=== PATIENT | male | born 1955 | race American Indian/Alaskan Native ===

== ENCOUNTER 2017-04-20 11:22 | Emergency (ER) | payer OTHER ==
[~2017-04-20] VITALS: Ht 177.8 cm; Wt 95.9 kg
--- OUTSIDE RECORDS SUMMARY | ~2017-04-20 | XMS | Encounter Summary ---
Demographics + + + | Address | [address] | | | [place] [address] | + + + | Home Phone [...] | Author | [facility] [employer] [facility] | + + + | Organization | [facility] | + + + | Address | Unknown | + + + | Phone | Unavailable | + + + Support + + +---------+ + | Name | Relationship | Address | Phone | + + +---------+ + | CAMRON OCHOA | ECON | Unknown | | + + +---------+ + Care Team Providers + +------+ + | Care Partnership Marketing Manager Name | Role | Phone | [...] | | 2017 | | Center at [facility] 6th | PA-C [address] | | | | | Floor [address] | [address] | | | | | Evelyn Mailcode: CH6D | [place], [place] | | | | | [facility] | [address] | | | | | and Healing, 6th | [phone] | | | | | Floor [place], [place] | | | | | | [address] | | | | | | [phone] | | | +--------+ + + + [...]
--- OUTSIDE RECORDS SUMMARY | ~2017-04-20 | XMS | Clinical Summary ---
Demographics + + + | Address | [address] | | | [place] [address] | + + + | Home Phone [...] Team Providers + +------+ + | Care Boiler Tester Name | Role | Phone | + +------+ + | Shakir Monzon MD | PP | | + +------+ + Source Comments LINDA is fully live on both [facility] Ambulatory and [facility] InPatient.[facility] Allergies No Known Allergies Current [...]
--- OUTSIDE RECORDS SUMMARY | ~2017-04-20 | XMS | Encounter Summary ---
Demographics + + + | Address | [address] | | | [place] [address] | + + + | Home Phone [...] + | Author | [facility] | + + + | Organization | [facility] | + [...] Team Providers + +------+ + | Care Hims Manager Name | Role | Phone | [...] | 2017 | on | Center at [facility] 6th | PA-Craig [address] | 01/28/17) | | | | Floor [address] | [address] | | | | | Evelyn Mailcode: CH6D | [place], [place] | | | | | [facility] | [address] | | | | | and Maxine, 6th | [phone] | | | | | Floor [place], [place] | | | | | | [address] | | | | | | [phone] | | | +--------+ + + + [...]
--- OUTSIDE RECORDS SUMMARY | ~2017-04-20 | XMS | Clinical Summary ---
Demographics + + + | Address | [address] | | | [place] [address] | + + + | Home Phone [...] Team Providers + +------+ + | Care Bullard Operator Name | Role | Phone | + +------+ + | Shakir Monzon MD | PP | | + +------+ + Source Comments LINDA is fully live on both [facility] Ambulatory and [facility] InPatient.[facility] Allergies No Known Allergies Current Medications + [...]
--- OUTSIDE RECORDS SUMMARY | ~2017-04-20 | XMS | Encounter Summary ---
Demographics + + + | Address | [address] | | | [place] [address] | + + + | Home Phone [...] | [facility] | + + + | Organization | [facility] | + + + | Address | Unknown | + + + | Phone | Unavailable | + + + Support + + +---------+ + | Name | Relationship | Address | Phone | + + +---------+ + | CAMRON OCHOA | ECON | Unknown | | + + +---------+ + Care Team Providers + +------+ + | Care Sales Driver Name | Role | Phone | [...] 02/01/ | Abstract | [facility] | Bsesy Solano, | Blood Test Results | | 2017 | | Center at [facility] 6th | PA-C [address] | | | | | Floor [address] | [address] | | | | | Evelyn Mailcode: CH6D | [place], [place] | | | | | [facility] | [address] | | | | | and Healing, 6th | [phone] | | | | | Floor [place], [place] | | | | | | [address] | | | | | | [phone] | | | +--------+ + + + [...]
--- OUTSIDE RECORDS SUMMARY | ~2017-04-20 | XMS | Encounter Summary ---
Demographics + + + | Address | [address] | | | [place] [address] | + + + | Home Phone [...] Author | [facility] [employer] [facility] | + + + | Organization | [facility] | + + + | Address | Unknown | + + + | Phone | Unavailable | + + + Support + + +---------+ + | Name | Relationship | Address | Phone | + + +---------+ + | CAMRON OCHOA | ECON | Unknown | | + + +---------+ + Care Team Providers + +------+ + | Care Scraper Burrer Name | Role | Phone | + [...] | 2017 | on | Center at [facility] 6th | PA-Craig [address] | 01/28/17) | | | | Floor [address] | [address] | | | | | Evelyn Mailcode: CH6D | [place], [place] | | | | | [facility] | [address] | | | | | and Maxine, 6th | [phone] | | | | | Floor [place], [place] | | | | | | [address] | | | | | | [phone] | | | +--------+ + + + [...]
[~2017-04-20 11:22] MED LIST: ASPIRIN EC81 MG PO; CEPHALEXIN500 MG PO; COZAAR25 MG PO; GLIPIZIDE XL10 MG PO; JANUVIA100 MG PO; LACTULOSE20 GM/30 M PO; LANTUS100 UNITS/ SUB-Q; METFORMIN HCL500 MG PO; NOVOLOG100 UNIT/2; PROAIR HFA8.5 GM INH; TERBINAFINE15 GM TOP; VITAMIN D35000 UNIT PO
[2017-04-20] MEDS ORDERED: XIFAXAN550 MG PO (11:36)
--- NOTE | 2017-04-20 20:49 | EKG ---
[facility] [address] [facility] [place] [address] Signed Sinus tachycardia Possible Inferior infarct (cited on or before 27-NOV-2015) Abnormal ECG When compared with ECG of 27-NOV-2015 09:34, Questionable change in initial forces of Inferior leads Nonspecific T wave abnormality no longer evident in Lateral leads Confirmed by JUANITA MOURA MD ([id number]) on 04/20/2017 8:49:33 PM Electronically Signed By: JUANITA MOURA MD 04/20/17 2049 PATIENT NAME: DIPESHBEHZAD Electrocardiogram DATE OF : 55 PHYSICIAN: JUANITA MOURA MD REPORT #: [id number] REPORT IS CONFIDENTIAL AND NOT TO BE RELEASED WITHOUT AUTHORIZATION
== END 2017-04-20 12:47 | disposition home or self-care (01) ==
LOC: ED 11:22
DX: R07.9 Chest pain, unspecified (principal); E11.9 Type 2 diabetes mellitus without complications; I10 Essential (primary) hypertension; F17.200 Nicotine dependence, unspecified, uncomplicated; Z86.19 Personal history of other infectious and parasitic diseases; Z79.4 Long term (current) use of insulin; Z79.82 Long term (current) use of aspirin; Z79.899 Other long term (current) drug therapy
CPT/HCPCS: 71045; 80053; 84484; 85025; 93005; 93010; 96374; 96375; 99284; J1170; J2405

== ENCOUNTER 2017-04-25 05:05 | Inpatient (IN) | payer OTHER ==
[~2017-04-25] VITALS: Ht 177.8 cm; Wt 101.0 kg
--- OUTSIDE RECORDS SUMMARY | ~2017-04-25 | XMS | Encounter Summary ---
Demographics + + + | Address | [address] | | | [place] [address] | + + + | Home Phone [...] Author | [facility] | + + + | Organization | [facility] | + + + | Address | Unknown | + + + | Phone | Unavailable | + + + Support + + +---------+ + | Name | Relationship | Address | Phone | + + +---------+ + | CAMRON OCHOA | ECON | Unknown | | + + +---------+ + Care Team Providers + +------+ + | Care Skein Bander Name | Role | Phone | + [...] (Labs | | 2017 | on | Center at [facility] 6th | PA-Craig [address] | 01/28/17) | | | | Floor [address] | [address] | | | | | Evelyn Mailcode: CH6D | [place], [place] | | | | | [facility] | [address] | | | | | and Maxine, 6th | [phone] | | | | | Floor [place], [place] | | | | | | [address] | | | | | | [phone] | | | +--------+ + + + [...] as of this encounter Plan of Treatment Not on fileas of this encounter Results CBC ONLY (01/28/2017) + +--------+ + | Component | Value | Ref Range | + +--------+ + | WHITE CELL COUNT | 6.8 | K/cu mm | + +--------+ + | RED CELL COUNT | 4.47 | M/cu mm | + +--------+ + | HEMOGLOBIN | 15.6 | 13.5 - 17.5 g/dL | + +--------+ + | HEMATOCRIT | 44.7 | % | + +--------+ + | PLATELET COUNT | 74 (L) | K/cu mm | + +--------+ + + + + | Specimen | Performing Laboratory | + + + | Blood | PAML | + + + INR (01/28/2017) + +-------+ + | Component | Value | Ref Range | + +-------+ + | INR | 1.2 | INR | + +-------+ + + + + | Specimen | Performing Laboratory | + + + | Blood | PAML | + + + COMPLETE METABOLIC SET (NA,K,CL,CO2,BUN,CREAT,GLUC,CA,AST,ALT,BILI TOTAL,ALK PHOS,ALB,PROT TOTAL) (01/28/2017) + +---------+ + | Component | Value | Ref Range | + +---------+ + | GLUCOSE, PLASMA | 243 (H) | 65 - 110 mg/dL | | (LAB) | | | + +---------+ + | BUN, PLASMA (LAB) | 14 | mg/dL | + +---------+ + | CREATININE PLASMA | 0.92 | mg/dL | | (LAB) | | | + +---------+ + | TOTAL PROTEIN, | 6.6 | g/dL | | PLASMA (LAB) | | | + +---------+ + | ALBUMIN, PLASMA | 2.9 (L) | g/dL | | (LAB) | | | + +---------+ + | CALCIUM, PLASMA | 8.7 | mg/dL | | (LAB) | | | + +---------+ + | BILIRUBIN TOTAL | 0.8 | Transcutaneous | | | | Bilirubinometer | + +---------+ + | ALK PHOS | 55 | U/L | + +---------+ + | AST(SGOT) | 21 | U/L | + +---------+ + | SODIUM, PLASMA (LAB) | 142 | mmol/L | + +---------+ + | POTASSIUM, PLASMA | 4.0 | mmol/L | | (LAB) | | | + +---------+ + | CHLORIDE, PLASMA | 108 (H) | mmol/L | | (LAB) | | | + +---------+ + | TOTAL CO2, PLASMA | 20 (L) | mmol/L | | (LAB) | | | + +---------+ + | ALT (SGPT) | 22 | U/L | + +---------+ + + + + | Specimen | Performing Laboratory | + + + | Blood | PAML | + + + in this encounter Visit Diagnoses Not on filein this encounter"
--- OUTSIDE RECORDS SUMMARY | ~2017-04-25 | XMS | Encounter Summary ---
Demographics + + + | Address | [address] | | | [place] [address] | + + + | Home Phone [...] Author + + + | Author | [facility] [employer] [facility] | + + + | Organization | [facility] | + + + | Address | Unknown | + + + | Phone | Unavailable | + + + Support + + +---------+ + | Name | Relationship | Address | Phone | + + +---------+ + | CAMRON OCHOA | ECON | Unknown | | + + +---------+ + Care Team Providers + +------+ + | Care Supervisor Telephone Information Name | Role | Phone | + [...] Test Results | | 2017 | | Center at [facility] 6th | PA-C [address] | | | | | Floor [address] | [address] | | | | | Evelyn Mailcode: CH6D | [place], [place] | | | | | [facility] | [address] | | | | | and Healing, 6th | [phone] | | | | | Floor [place], [place] | | | | | | [address] | | | | | | [phone] | | | +--------+ + + + [...] Treatment Not on fileas of this encounter Visit Diagnoses Not on filein this encounter"
--- OUTSIDE RECORDS SUMMARY | ~2017-04-25 | XMS | Encounter Summary ---
Demographics + + + | Address | [address] | | | [place] [address] | + + + | Home Phone | | + + + | Preferred Language | Unknown | + + + | Marital Status | Single | + + + | Yazidi Affiliation | Unknown | + + + | Race | or | + + + | Ethnic Group | Not or | + + + Author + + + | Author | [facility] [employer] [facility] | + + + | Organization | [facility] | + + + | Address | Unknown | + + + | Phone | Unavailable | + + + Support + + +---------+ + | Name | Relationship | Address | Phone | + + +---------+ + | CAMRON OCHOA | ECON | Unknown | | + + +---------+ + Care Team Providers + +------+ + | Care Remote Inpatient Coder Name | Role | Phone | + [...] | 2017 | on | Center at [facility] 6th | PA-Craig [address] | 01/28/17) | | | | Floor [address] | [address] | | | | | Evelyn Mailcode: CH6D | [place], [place] | | | | | [facility] | [address] | | | | | and Maxine, 6th | [phone] | | | | | Floor [place], [place] | | | | | | [address] | | | | | | [phone] | | | +--------+ + + + [...]
--- OUTSIDE RECORDS SUMMARY | ~2017-04-25 | XMS | Clinical Summary ---
Demographics + + + | Address | [address] | | | [place] [address] | + + + | Home Phone [...] Team Providers + +------+ + | Care Sourcing Coordinator Name | Role | Phone | + +------+ + | Shakir Monzon MD | PP | | + +------+ + Source Comments LINDA is fully live on both Health system Ambulatory and Health system InPatient.[facility] Allergies No Known Allergies Current Medications + + +--------+---------+------+------+-------+ | Prescription | Sig. | Disp. | Refills | Star | End | Statu | | | | | | t | Date | s | | | | | | Date | | | + + +--------+---------+------+------+-------+ | metFORMIN SR 1,000 | Take by mouth. | | | | | Activ | | mg oral tablet | | | | | | e | | extended release | | | | | | | | 24hr | | | | | | | + + +--------+---------+------+------+-------+ | rifAXIMin 550 mg | Take by mouth. | | | | | Activ | | oral tablet | | | | | | e | + + +--------+---------+------+------+-------+ | losartan 25 mg | Take by mouth. | | | | | Activ | | oral tablet | | | | | | e | + + +--------+---------+------+------+-------+ | Cholecalciferol | Take by mouth. | | | | | Activ | | (Vitamin D3) 5,000 | | | | | | e | | unit oral capsule | | | | | | | + + +--------+---------+------+------+-------+ | omeprazole 40 mg | Take by mouth. | | | | | Activ | | oral capsule,delayed | | | | | | e | | release(DR/EC) | | | | | | | + + +--------+---------+------+------+-------+ | | Take 1 tablet by | 28 | 2 | 09/0 | | Activ | | sofosbuvir-velpatasv | mouth once daily. | tablet | | 03/06 | | e | | ir (EPCLUSA) 400-100 | | | | 17 | | | | mg oral tablet | | | | | | | + + +--------+---------+------+------+-------+ Active Problems + + + | Problem | Noted Date | + + + | Hepatic cirrhosis (HCC) | 10/14/2016 | + + + | Chronic hepatitis C without hepatic coma (HCC) | 10/14/2016 | + + + Encounters +--------+ + + + + | Date | Type | Specialty | Care Team | Description | +--------+ + + + + | 02/02/ | Documentati | | Bessy Solano, | Lab Results (Labs | | 2016 | on | | NEVA-C | 01/28/17) | +--------+ + + + + | 02/01/ | Abstract | | Bessy Solano, | Blood Test Results | | 2016 | | | PA-C | | +--------+ + + + + from Last 3 Months Social History + + + +--------+------+ | [...] Pressure | 134/74 | 10/14/2016 10:25 AM PDT | + + + + | Pulse | 77 | 10/14/2016 10:25 AM PDT | + + + + | Temperature | 36.7 C (98 F) | 10/14/2016 10:25 AM PDT | + + + + | Respiratory Rate | 16 | 10/14/2016 10:25 AM PDT | + + + + | Oxygen Saturation | - | - | + + + + | Inhaled Oxygen | - | - | | Concentration | | | + + + + | Weight | 99.6 kg (219 lb 8 | 10/14/2016 10:25 AM PDT | | | oz) | | + + + + | Height | - | - | + + + + | Body Mass Index | - | - | + + + + Plan of Treatment + + + + + | Health Maintenance | Due Date | Last Done | Comments | + + + + + | INFLUENZA VACCINE | | | | | (FLU SHOT) | 7 | | | + + + + + Results INR (01/28/2017) + +-------+ + | Component [...] Blood | PAML | + + + CBC ONLY (01/28/2017) + +--------+ + | [...] Blood | PAML | + + + from Last 3 Months"
--- OUTSIDE RECORDS SUMMARY | ~2017-04-25 | XMS | Clinical Summary ---
Demographics + + + | Address | [address] | | | [place] [address] | + + + | Home Phone [...] Team Providers + +------+ + | Care Cut Off Saw Operator Name | Role | Phone | + +------+ + | Shakir Monzon MD | PP | | + +------+ + Source Comments LINDA is fully live on both [facility] Ambulatory and [facility] InPatient.[facility] Allergies No Known Allergies Current Medications + [...]
--- OUTSIDE RECORDS SUMMARY | ~2017-04-25 | XMS | Clinical Summary ---
Demographics + + + | Address | [address] | | | [place] [address] | + + + | Home Phone [...] Team Providers + +------+ + | Care Caddy/Caddie Supervisor Name | Role | Phone | + +------+ + | Shakir Monzon MD | PP | | + +------+ + Source Comments LINDA is fully live on both [facility] Ambulatory and [facility] InPatient.[facility] Allergies No Known Allergies Current Medications + [...]
--- OUTSIDE RECORDS SUMMARY | ~2017-04-25 | XMS | Encounter Summary ---
Demographics + + + | Address | [address] | | | [place] [address] | + + + | Home Phone [...] + + | Author | [facility] | + + + | Organization | [facility] | + + + | Address | Unknown | + + + | Phone | Unavailable | + + + Support + + +---------+ + | Name | Relationship | Address | Phone | + + +---------+ + | CAMRON OCHOA | ECON | Unknown | | + + +---------+ + Care Team Providers + +------+ + | Care Web Page Designer Name | Role | Phone | [...] | | 2017 | | Center at [facility] 6th | PA-C [address] | | | | | Floor [address] | [address] | | | | | Evelyn Mailcode: CH6D | [place], [place] | | | | | [facility] | [address] | | | | | and Healing, 6th | [phone] | | | | | Floor [place], [place] | | | | | | [address] | | | | | | [phone] | | | +--------+ + + + [...]
--- OUTSIDE RECORDS SUMMARY | ~2017-04-25 | XMS | Encounter Summary ---
Demographics + + + | Address | [address] | | | [place] [address] | + + + | Home Phone [...] + | Author | [facility] [employer] [facility] | + + [...] | | 2017 | | Center at [facility] 6th | PA-C [address] | | | | | Floor [address] | [address] | | | | | Evelyn Mailcode: CH6D | [place], [place] | | | | | [facility] | [address] | | | | | and Healing, 6th | [phone] | | | | | Floor [place], [place] | | | | | | [address] | | | | | | [phone] | | | +--------+ + + + [...]
--- OUTSIDE RECORDS SUMMARY | ~2017-04-25 | XMS | Encounter Summary ---
Demographics + + + | Address | [address] | | | [place] [address] | + + + | Home Phone [...] + + | Author | [facility] | + + + | Organization | [facility] | + + + | Address | Unknown | + + + | Phone | Unavailable | + + + Support + + +---------+ + | Name | Relationship | Address | Phone | + + +---------+ + | CAMRON OCHOA | ECON | Unknown | | + + +---------+ + Care Team Providers + +------+ + | Care Rotary Pump Operator Name | Role | Phone | [...] | 2017 | on | Center at [facility] 6th | PA-Craig [address] | 01/28/17) | | | | Floor [address] | [address] | | | | | Evelyn Mailcode: CH6D | [place], [place] | | | | | [facility] | [address] | | | | | and [address]ine, 6th | [phone] | | | | | Floor [place], [place] | | | | | | [address] | | | | | | [phone] | | | +--------+ + + + [...]
[~2017-04-25 05:05] MED LIST changes: +XIFAXAN550 MG PO
[2017-04-25] MEDS ORDERED: OMEPRAZOLE20 MG (05:16)
[2017-04-25] MEDS ORDERED: CRESTOR10 MG PO (05:17)
--- NOTE | 2017-04-25 08:03 | EKG ---
[facility] [address] [facility] [place] [address] Signed Sinus tachycardia Inferior infarct (cited on or before 27-NOV-2015) Abnormal ECG When compared with ECG of 20-APR-2017 11:27, T wave amplitude has increased in Lateral leads Confirmed by KATELYNN ADORNO MD ([id number]) on 04/25/2017 8:02:56 AM Electronically Signed By: KATELYNN ADORNO MD 04/25/17 0803 PATIENT NAME: DIPESHBEHZAD Electrocardiogram DATE OF : 55 PHYSICIAN: KATELYNN ADORNO MD REPORT #: [id number] REPORT IS CONFIDENTIAL AND NOT TO BE RELEASED WITHOUT AUTHORIZATION
--- NOTE | 2017-04-25 10:50 | NUR ---
RECIEVED PT FROM ED. TRANSPORTED VIA STRETCHER. COMPLAINS ON PAIN 8/10 IN CHEST. OFFER TYLENOL. PT REFUSED. SIGNIFICAT OTHER AT BEDSIDE. LUNGS SOUND CLEAR. HEART SOUND NORMAL. IV FLUIDS INFUSING @ 125/HR. RR WNL. CMS INTACT. REPORTS PAIN ON RIGHTSIDE DUE TO LIVER DISEASE. REPORTED NAUSEA YESTERDAY. PT IS ON CLEAR LIQUIDS UNTIL MIDNIGHT. CALL LIGHT WITHIN REACH. NO OTHER NEEDS AT THIS TIME
--- NOTE | 2017-04-25 11:45 | NUR ---
HELPED WITH INTAKE
--- NOTE | 2017-04-25 12:10 | NUR ---
SET UP FOR LUNCH. PICKED UP ROOM
--- NOTE | 2017-04-25 16:20 | NUR ---
PT REPORTED PAIN 8/10 IN CHEST. 650 TYLENOL GIVEN. WILL CONTINUE TO MONITOR. CALL LIGHT WITHIN REACH.
[2017-04-25] MEDS ORDERED: COZAAR25 MG PO (16:49)
[2017-04-25] MEDS ORDERED: LACTULOSE20 GM/30 M PO (16:50)
--- NOTE | 2017-04-25 17:01 | NUR ---
Patient's medications reconciled by pharmacist per patient/ interview
--- NOTE | 2017-04-25 17:13 | NUR ---
PT HAS DRY, HARSH COUGH. INFORMED DR ADORNO. NEW ORDERS RECIEVED. YADIEL JUNELRS GIVEN TO PT. WILL CONTINUE TO MONITOR.
--- NOTE | 2017-04-25 18:41 | NUR ---
1-2PA WITH FWW. PILLS IN APPLE SAUCE. 1 MORE DAY OF TAMIFLU. ADA DIET. TOLERATED WALKING TO CHAIR AND BACK. ATTENDS IN PLACE. LARGE AMOUNTS OF URINE OUT. REPORTS NO PAIN. NO DISCOMFORT. RR WNL.
--- NOTE | 2017-04-25 18:45 | NUR ---
CAME TO FLOOR TODAY. REPORTS CHEST PAIN. GAVE TESLON PEARLS FOR COUGH. 0.5 DILAUDID IV FOR PAIN 09/24. IND IN ROOM. CLEAR LIQUIDS. NPO AFTER MIDNIGHT. NO NARCOTICS AFTER MIDNIGHT FOR MRCP TOMORROW.
--- NOTE | 2017-04-25 19:58 | NUR ---
VITALS DONE AND CHARTED. BEDSIDE TABLE AND CALL LIGHT WITHIN REACH. PT NEEDS NOTHING AT THIS TIME.
--- NOTE | 2017-04-26 00:05 | NUR ---
PT COMPLAINED OF 8/10 PAIN, GAVE DILAUDID FOR PAIN. GAVE TESSELON LINETTE FOR COUGH. PT UP AT BEDSIDE TO VOID IN URINAL. TOOK ALL PO FLUIDS AWAY FROM BEDSIDE AND REMINDED HIM THAT HE IS TO BE NPO TONIGHT, PT ACKNOWLEDGED UNDERSTANDING. CALL LIGHT IN REACH. NO FURTHER NEEDS.
--- NOTE | 2017-04-26 01:15 | NUR ---
PT APPEAR TO BE SLEEPING.
--- NOTE | 2017-04-26 02:05 | NUR ---
VITALS AND I&OS DONE AND CHARTED. BEDSIDE TABLE AND CALL LIGHT WITHIN REACH. PT NEEDS NOTHING ELSE AT THIS TIME.
--- NOTE | 2017-04-26 03:22 | NUR ---
STOOD BY WHEN PT USED HIS URINAL. BEDSIDE TABLE AND CALL LIGHT WITHIN REACH.
--- NOTE | 2017-04-26 03:28 | NUR ---
PT UP TO BEDSIDE TO VOID IN URINAL. NO FURTHER NEEDS. CALL LIGHT IN REACH.
--- NOTE | 2017-04-26 06:28 | NUR ---
VITALS AND I&OS DONE AND CHARTED. BEDSIDE TABLE AND CALL LIGHT WITHIN REACH.
--- NOTE | 2017-04-26 06:33 | NUR ---
pt rates pain at 9/10. dr boone notified this morning that pt is in pain, dr boone informed rn that it is okay to give narcotics iv to the pt, there is no restriction on iv narcotics for the mrcp test this morning. gave dilaudid iv for pain. pt has no further needs. call light in reach.
--- NOTE | 2017-04-26 06:35 | NUR ---
PT SLEPT MAJORITY OF SHIFT. WOKE THIS MORNING, REPORTED 9/[address] ADORNO INFORMED RN THIS MORNING THAT THE MRCP TEST DOES NOT HAVE RESTRICTIONS ON IV NARCOTICS BEING GIVEN BEFORE TEST, ALSO CONFIRMED THIS WITH IMAGING. DILAUDID COVERED PAIN WELL. IV ABX. PT HAS BEEN NPO SINCE LAST NIGHT. PT ALERT AND ORIENTED. STANDBY ASSIST TO AMBULATE. CALLS APPROPRIALTY. PLEASENT.
--- NOTE | 2017-04-26 07:20 | NUR ---
PT IN BED A/O. REPORTS PAIN AT 8/10. SAYS PAIN MEDICATION ISN'T WORKING. PT INFORMED DR ADORNO WELL. 0.5 DILAUDID IV ONE TIME DOSE ORDERED. COLD WASH CLOTH ON HEAD. PT HAS A HARSH CONTINUAL COUGH. REPORTS THAT IT IS HURTING HIS CEST AND ABDOMINAL MUSCLES. AT BEDSIDE. REPORTS THAT THE PAIN IS A TIGHT FEELING. CALL LGT WITHIN REACH. WILL CONTINUE TO MONITOR.
--- NOTE | 2017-04-26 08:11 | NUR ---
PATIENT RESTING IN BED. PATIENTS IN ROOM. THIS SEAM HAMMERER GOT A COLD WASHCLOTH FOR PATIENT. RN IN ROOM.
--- NOTE | 2017-04-26 10:40 | NUR ---
CALLED ANKUR GARCIA KRISTI TO GIVE REPORT. QUESTIONS ANSWERED.
== END 2017-04-26 09:30 | disposition short-term general hospital (02) | DRG 872 ==
LOC: ED 05:05 → MS 10:15
PROVIDERS: ADMIT Internal Medicine
DX: A41.50 Gram-negative sepsis, unspecified (principal); E87.2 Acidosis; B19.20 Unspecified viral hepatitis C without hepatic coma; K74.60 Unspecified cirrhosis of liver; E11.9 Type 2 diabetes mellitus without complications; I10 Essential (primary) hypertension; F17.200 Nicotine dependence, unspecified, uncomplicated; K80.20 Calculus of gallbladder without cholecystitis without obstruction; Z79.4 Long term (current) use of insulin; Z79.82 Long term (current) use of aspirin
CPT/HCPCS: 36415; 71046; 71260; 76705; 80053; 81001; 82550; 83605; 83690; 83735; 84484; 85025; 85379; 85610; 87040; 87077; 87186; 87502; 93005; 93010; 96374; 96375; 99285; 99406; J0456; J1170; J1956; J2405; J3475; J7030; Q9967

== ENCOUNTER 2017-11-08 11:05 | Inpatient (IN) | payer OTHER ==
[~2017-11-08] VITALS: Ht 177.8 cm; Wt 93.2 kg
--- NOTE | ~2017-11-08 | HP ---
[facility] [address], [place] [address] Draft ADMISSION DATE: 11/08/2017 REASON FOR ADMISSION: Probable severe symptomatic proctitis. HISTORY OF PRESENT ILLNESS: This 62-year-old [place] man has a history of hepatitis C and cirrhosis with well-documented esophageal varices. Review of an upper endoscopy from [address] Compa Silva confirmed moderate varices at that time. He presented to the emergency room today and was evaluated by Dr. Bartlett with complaints of "constipation" as well as some blood in the stool. He had no black stool, but red blood from time to time. He has had some severe mid epigastric pain. In August, he underwent a cholecystostomy tube placement, probably by Radiology at [facility]. This is in part managed by Dr. Clinton Morillo. He has recently received clearance at [facility] a week ago regarding cardiac workup and consideration is being made for interval cholecystectomy. His presentation today was with complaints of a feeling of inability to evacuate stool with some blood mixed with some dark stool. He has had no fever or systemic symptoms particularly. He denies any current chest pain issues. Evaluation by Dr. Bartlett included a CT scan of the abdomen and pelvis, which showed cirrhosis of the liver. A cholecystostomy tube in place with calcified stones inside and outside the gallbladder and mildly thickened gastric antral wall and mildly thickened rectal huber consistent with proctitis. He is admitted for further evaluation and care. PHYSICAL EXAMINATION: GENERAL: Relatively tall and not excessively obese [place] man, accompanied by his and another family member. He has vitiligo of his hands to a degree. Trachea is midline. He has no hoarseness. He appears to be uncomfortable. CHEST: Clear. HEART: Regular without murmur. ABDOMEN: Soft and nondistended. There is no ascites. I detect no palpable mass. He has an apparent cholecystostomy tube emanating from the right upper quadrant. EXTREMITIES: Show no clubbing, cyanosis, or edema. RECTAL: Not repeated. Previously, it showed soft brown stool that was heme-positive. LABORATORY STUDIES: PATIENT NAME: BEHZAD LANDON JR HISTORY AND PHYSICAL DATE OF : 55 REPORT #: [id number] PHYSICIAN: DELGADO PINEDA MD PCP: ANDREEA CHILDRESS MD REPORT IS CONFIDENTIAL AND NOT TO BE RELEASED WITHOUT AUTHORIZATION [facility] [address], [place] [address] Draft Show white count of 11.3, hematocrit 45.4, platelets 103,000. Electrolytes normal. Liver enzymes were normal. Bilirubin 2.2, however. Lipase 9. Chest x-ray showed no abnormality. CT scan as described. ASSESSMENT: I reviewed the CT scan. It appears likely that there is significant proctitis enough to give him a sensation of tenesmus. He needs additional fluids as he has been poorly urinating lately. He does have hyperglycemia, for which blood sugar control would be appropriate. I conferred with Dr. Coppola who will consult him for that purpose. As regard to the rectum, it is highly probable he has a proctitis. Whether this is related to inflammatory bowel disease proper or some other etiology is uncertain. He is at increased risk of rectal varices of course given his portal hypertension and well-demonstrated gastric varices. I am uncertain of his treatment for hepatitis C in the past, I did not inquire of it too much at this point. For now, we will initiate some additional fluid resuscitation, we will allow clear liquids, n.p.o. after midnight. We will initiate steroids, 100 mg of hydrocortisone q.8 hours, and Cortenema for symptoms which are likely proctitis-related tenesmus. We will plan for colonoscopy tomorrow. The risks of bleeding, infection, and perforation were reviewed in detail. MD KELI Mesa/AVISL /[id number] cc: Dr. Bartlett Copies: ~ PATIENT NAME: BEHZAD LANDON JR HISTORY AND PHYSICAL DATE OF : 55 REPORT #: [id number] PHYSICIAN: DELGADO PINEDA MD PCP: ANDREEA CHILDRESS MD REPORT IS CONFIDENTIAL AND NOT TO BE RELEASED WITHOUT AUTHORIZATION
--- NOTE | ~2017-11-08 | [place] ---
[facility] [address], [place] [address] Draft DATE OF OPERATION: 11/09/2017 SURGEON: Delgado Pineda MD PREOPERATIVE DIAGNOSES: 1. Hepatitis C related cirrhosis with known portal hypertension, esophageal varices. 2. Severe tenesmus and CT findings of probable proctitis. POSTOPERATIVE DIAGNOSES: 1. 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 Remaining colon normal. 2. Transverse colon polyp. PROCEDURE: Total colonoscopy to cecum with cold morcellation polyp x1 and multiple biopsies including cecum and rectum and sigmoid ANESTHESIA: Local with monitored anesthesia care, Delgado Heck CRNA. INDICATION: This 62-year-old man is well known to have cirrhosis related to hepatitis C in 2016, documented to have esophageal varices there for portal hypertension based on upper endoscopy performed by Dr. Compa Silva. The patient has been under the care of Dr. Monzon, at [facility]. In July, he underwent decompressive cholecystostomy for a perforated gallbladder with multiple stones and was anticipating cholecystectomy in the next few weeks at [facility]. His decompressive drain was placed at [facility] as well. He presented to the emergency room yesterday with complaints of severe anorectal pain and inability to have bowel movement. Rectal examination showed no sign of fecal impaction. He had some amount of bleeding per rectum as well. A CT scan was performed under the direction of Dr. Torres, showing inflammatory changes of the rectum and no other findings of concern. On the high probability this represented ulcerative proctitis, he was admitted to my service and has been started on steroids, hydrocortisone 100 mg IV q.8 hours. Broad-spectrum antibiotics administered by Dr. Torres, and attempts for a Cortenema, though not locally available on formulary at this time. Colonoscopy is indicated to affirm the diagnosis. The risks of bleeding, infection, and perforation were related to him and PATIENT NAME: BEHZAD LANDON JR OPERATIVE REPORT DATE OF : 55 REPORT #: [id number] PHYSICIAN: DELGADO PINEDA MD PCP: ANDREEA MONZON MD REPORT IS CONFIDENTIAL AND NOT TO BE RELEASED WITHOUT AUTHORIZATION [facility] [address], [place] [address] Draft his . They understand and wished to proceed. FINDINGS: Indeed there was severe ulcerative proctitis. Inflammatory process extended to approximately 20 cm. Above that level, the colon was entirely normal. Multiple attempts were made to intubate the ileum, but it was not possible, but I think it unlikely has any more proximal inflammatory change. Biopsies were taken of the cecum as well as the rectum. There was a small probably hyperplastic polyp of the transverse colon, which was excised and biopsies taken of inflammatory change of the rectum. Inflammatory process starts at approximately 20 cm from the anal verge. DESCRIPTION OF PROCEDURE: The patient was brought to the endoscopy operating room and placed in lateral decubitus position. He was given intravenous sedation with propofol infusional technique by the party plan sales consultant. A digital rectal examination was undertaken. Anorectal examination showed what appeared to be chronic pruritus ulceration, but the skin that was whitish in appearance. It is noted he does have vitiligo of his hands. There is no palpable mass and no stool in the rectal vault. His preparation had included only a fleets enema x1. Olympus video colonoscope was passed in the rectum, immediately noting severe ulcerative proctitis. The scope was manipulated throughout the colon, ultimately intubating the cecum itself, which was completely normal in appearance. Irrigation was undertaken. Attempts were made to intubate the ileum, they were unsuccessful. Biopsies were then taken of the cecum. The scope was carefully withdrawn. Examination showed no abnormality until the transverse colon, where a very small polyp, probably hyperplastic, was noted. It was excised with cold morcellation technique. The scope was further withdrawn and the area designated as inflamed was about 20 cm from the anal verge. The scope was advanced a bit to about 25 cm, allowing for biopsy so as to ascertain normal mucosa in that area. Biopsies were then taken at approximately 20 cm and more distally into the rectosigmoid and rectum. Retroflexed views undertaken as well as and biopsies taken of the lower rectum. There was no sign of anorectal fistula or anything of that sort. The findings are most consistent with ulcerative proctitis, considered severe. Scope was removed. The patient was taken to recovery in good condition. CONCLUDING DIAGNOSIS: Ulcer proctitis. PLAN: Continued steroid use, oral antibiotics, initiation of mesalamine and Cortenema for the time being. PATIENT NAME: BEHZAD LANDON JR OPERATIVE REPORT DATE OF : 55 REPORT #: [id number] PHYSICIAN: DELGADO PINEDA MD PCP: ANDREEA MONZON MD REPORT IS CONFIDENTIAL AND NOT TO BE RELEASED WITHOUT AUTHORIZATION [facility] [address] [place] [address] Draft MD KELI Mesa/MODL /[id number] cc: MD Clinton Marina MD Copies: ANDREEA MONZON MD, BRETT MD ~ PATIENT NAME: BEHZAD LANDON JR OPERATIVE REPORT DATE OF : 55 REPORT #: [id number] PHYSICIAN: DELGADO PINEDA MD PCP: ANDREEA MONZON MD REPORT IS CONFIDENTIAL AND NOT TO BE RELEASED WITHOUT AUTHORIZATION
--- NOTE | ~2017-11-08 | DS ---
[facility] [address] [place], [place] [address] Draft ADMISSION DATE: 11/08/2017 DISCHARGE DATE: 11/10/2017 REASON FOR ADMISSION: This 62-year-old [place] man has a history of treated hepatitis C, viral load nondetected, but with resultant cirrhosis and well documented esophageal varices from upper endoscopy performed in [address] Compa Silva. In July, he underwent placement of cholecystostomy tube for what sounds like a perforated gallbladder with multiple gallstones. This was done at [facility] and managed in part by Dr. Jessica Lozano. He received cardiac clearance a week ago and plans were being made for consideration of interval cholecystectomy. He presented to the emergency room on day of evaluation and evaluated by Dr. Bartlett with complaints of "constipation" as well as blood in the stool and severe mid epigastric pain and severe rectal pain. Clinical history was highly consistent with tenesmus. A CT scan of the abdomen and pelvis was performed, which confirmed cirrhosis of the liver and cholecystostomy tube with calcified gallstones and a mildly thickened gastric antral wall and markedly thickened rectal wall consistent with proctitis. He is admitted for further evaluation and care. PERTINENT PHYSICAL EXAMINATION: GENERAL: Showed a relatively tall and not excessively obese [place] man accompanied by his and in marked distress related to tenesmus. He had vitiligo of his hands to a degree. Trachea is midline. CHEST: Clear. HEART: Regular without murmur. ABDOMEN: Soft and nondistended. There is a well secured right upper quadrant drain with a bag and somewhat turbid fluid emanating from it. EXTREMITIES: Showed no clubbing, cyanosis, or edema. LABORATORY DATA: His white count was 11.3, hematocrit 45.4, platelets 103,000, bilirubin 2.2, lipase 9. Chest x-ray was normal. HOSPITAL COURSE: His clinical findings were suggestive of acute ulcerative proctitis. He was admitted to the hospital, given intravenous steroid, hydrocortisone, as well as parenteral fluids and antibiotics have been started by the emergency room physician. The rectal exam by the emergency room physician showed no stool whatsoever in the rectal PATIENT NAME: BEHZAD LANDON JR DISCHARGE SUMMARY DATE OF : 55 REPORT #: [id number] PHYSICIAN: DELGADO PINEDA MD PCP: ANDREEA MONZON MD REPORT IS CONFIDENTIAL AND NOT TO BE RELEASED WITHOUT AUTHORIZATION [facility] [address] [place], [place] [address] Draft vault despite the patient's sensation of needing to defecate. The patient later admitted that he had repeatedly attempted digital disimpaction, but with no stool in the rectum. Consultation was undertaken with Dr. Coppola on the basis of his medical issues including diabetes. He was given a minimal bowel prep of Fleet enema, and on November 09, 2017, he underwent colonoscopy. 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 Remaining more proximal colon was entirely normal. A transverse colon polyp was noted this was excised and biopsies taken of both normal-appearing and markedly inflamed rectum as well. He was affirmed therefore to have ulcerative proctitis. He was begun on Flagyl antibiotic, maintained on hydrocortisone 100 mg IV q.8 hours and given a Henrry enema daily. Mesalamine was anticipated for initiation as well. A low-fiber diet was initiated. The patient had marked improvement within 24 hours and is very interested in being discharged to home at this time. He will be discharged to home anticipating re-evaluation in my office in a month. A tapering dose of steroids (prednisone) will be outlined and he will maintain Prilosec for side of protection of the stomach as well as Flagyl for a few more days. In conference with Dr. Coppola, he will be maintained on lactulose so as to decrease his nitrogenous systemic burden given his underlying cirrhosis. I would advise against any operative intervention of his gallbladder issue in the near future. He will be taking up with Dr. Lozano at [facility] in the next week. He will maintain a low-fiber diet in the meantime. I will anticipate repeat colonoscopy in 48 weeks. DISCHARGE MEDICATIONS: Will include, 1. Flagyl 250 mg p.o. t.i.d. #21. 2. Cortenema 100 mg at bedtime #6. 3. Prednisone 40 mg p.o. daily, tapering 10 mg every two weeks until every other day and then off. 4. Mesalamine 1.2 g p.o. b.i.d. #60, refill three. 5. He will resume his usual insulin regimen including NovoLog insulin based on sliding scale, Lantus 100 units/mL 50 to 80 units subcu at h.s. 6. Vitamin D3 5000 units p.o. daily. 7. Rifaximin 550 mg p.o. two times daily. 8. Omeprazole 40 mg p.o. daily. 9. Crestor 10 mg p.o. daily. 10. Losartan 25 mg p.o. daily. PATIENT NAME: BEHZAD LANDON JR DISCHARGE SUMMARY DATE OF : 55 REPORT #: [id number] PHYSICIAN: DELGADO PINEDA MD PCP: ANDREEA MONZON MD REPORT IS CONFIDENTIAL AND NOT TO BE RELEASED WITHOUT AUTHORIZATION [facility] [address] [place], [place] [address] Draft 11. Lactulose 20 mg p.o. t.i.d. 12. Metoprolol 25 mg p.o. b.i.d. 13. Nitrostat 0.4 mg sublingual as needed for chest pain. 14. Isosorbide mononitrate 30 mg p.o. extended release q.24 hours. 15. Acyclovir 5 g cream apply as needed for herpetic outbreaks. 16. Acyclovir 800 mg p.o. x5 days as needed. DISCHARGE DIAGNOSES: 1. Acute hemorrhagic proctitis (ulcerative proctitis). 2. History of hepatitis C (treated with complete remission) though with resultant cirrhosis and known portal hypertension. 3. History in July of perforated gallbladder with gallstones, status post cholecystostomy or subhepatic drain ([facility] Dr. Jessica Lozano). 4. Reflux disease. FOLLOWUP PLANS: He is to return to see me in approximately a month. He is due to see Dr. Lozano in a week or so. I am somewhat doubtful that intervention will be undertaken with the gallbladder at this time until his ulcerative proctitis situation stabilizes more fully. to Dr. Lozano. He will be seeing Dr. Andreea Monzon in followup as well. MD KELI [place]/KATY /[id number] cc: Andreea Monzon MD [facility] Jessica Lozano MD Copies: ANDREEA MONZON MDJOVANNA PATIENT NAME: BEHZAD LANDON JR DISCHARGE SUMMARY DATE OF : 55 REPORT #: [id number] PHYSICIAN: DELGADO PINEDA MD PCP: ANDREEA MONZON MD REPORT IS CONFIDENTIAL AND NOT TO BE RELEASED WITHOUT AUTHORIZATION [address] [address] [place] JESSICA LOZANO MD ~ PATIENT NAME: BEHZAD LANDON JR DISCHARGE SUMMARY DATE OF : 55 REPORT #: [id number] PHYSICIAN: DELGADO PINEDA MD PCP: ANDREEA MONZON MD REPORT IS CONFIDENTIAL AND NOT TO BE RELEASED WITHOUT AUTHORIZATION
--- OUTSIDE RECORDS SUMMARY | ~2017-11-08 | XMS | Encounter Summary ---
Demographics + + + | Address | [address] | | | [place] [address] | + + + | Home Phone | | + + + | Preferred Language | Unknown | + + + | Marital Status | Single | + + + | Jainism Affiliation | NRP | + + + | Race | or | + + + | Ethnic Group | Not or | + + + Author + + + | Author | [facility] | + + + | Organization | [facility] | + + + | Address | Unknown | + + + | Phone | Unavailable | + + + Support + + +---------+ + | Name | Relationship | Address | Phone | + + +---------+ + | CAMRON OCHOA | ECON | Unknown | | + + +---------+ + Care Team Providers + +------+ + | Care Diesel Bus Mechanic Name | Role | Phone | + +------+ + | Shakir Monzon MD | PCP | | + +------+ + Reason for Referral Diagnostic Testing (Routine) + +--------+ + + + + | Status | Reason | Specialty | Diagnoses / | Referred By | Referred To | | | | | Procedures | Contact | Contact | + +--------+ + + + + | Pending | | Radiology | Diagnoses | Keo, | Tiffany, | | Review | | | Gallbladder | MD Uriah | Jessika Short MD | | | | | perforation | [address] | [address] | | | | | Procedures | [address] | [address] | | | | | CT ABDOMEN | [address] | [address], | | | | | AND PELVIS | [place], [place] | [place] | | | | | [place] | [address] | [address] | | | | | CONTRAST ID | Phone: | Phone: | | | | | CT | [phone] | [phone] | | | | | ABDOMEN&PELV | Fax: | Fax: | | | | | [place] | [phone] | [phone] | | | | | W/CONTRAST | | | + +--------+ + + + + Diagnostic Testing (Routine) + +--------+ + + + + | Status | Reason | Specialty | Diagnoses / | Referred By | Referred To | | | | | Procedures | Contact | Contact | + +--------+ + + + + | Pending | | Radiology | Diagnoses | Keo, | Tiffany, | | Review | | | Gallbladder | MD Uriah | Jessika Short MD | | | | | perforation | [address] | [address] | | | | | Procedures | Renato | [facility] | | | | | CT ABDOMEN | [address] | [address], | | | | | AND PELVIS | [place], [place] | [place] | | | | | [place] | [address] | [address] | | | | | CONTRAST ID | Phone: | Phone: | | | | | CT | [phone] | [phone] | | | | | ABDOMEN&PELV | Fax: | Fax: | | | | | IS | [phone] | [phone] | | | | | W/CONTRAST | | | + +--------+ + + + + Reason for Visit Diagnostic Testing (Routine) + +--------+ + + + + | Status | Reason | Specialty | Diagnoses / | Referred By | Referred To | | | | | Procedures | Contact | Contact | + +--------+ + + + + | Pending | | Radiology | Diagnoses | Keo, | Tiffany, | | Review | | | Gallbladder | MD Uriah | Jessika Short MD | | | | | perforation | [address] | [address] | | | | | Procedures | Renato | [address] | | | | | CT ABDOMEN | [address] | [address], | | | | | AND PELVIS | [place], [place] | [place] | | | | | [place] | [address] | [phone] | | | | | CONTRAST ID | Phone: | Phone: | | | | | CT | [phone] | [phone] | | | | | ABDOMEN&PELV | Fax: | Fax: | | | | | IS | [phone] | [phone] | | | | | W/CONTRAST | | | + +--------+ + + + + Encounter Details +--------+ + + + + | Date | Type | Department | Care Team | Description | +--------+ + + + + | 08/13/ | Hospital | Diagnostic Imaging | Jessika Allen, | | | 2018 | Encounter | Services at [facility] | [address] | | | | | [address] | [facility] | | | | | [facility] | [place], [place] | | | | | Mailcode: [address] [facility] | [address] | | | | | [facility], | [phone] | | | | | [place] [address] | | | | | | [phone] | | | +--------+ + + + [...] on file | | + + + as of this encounter Functional Status + [...] | | | + + + + as of this encounter Medications at Time of Discharge + + + +---------+ + + | Medication | Sig. | Disp. | Refills | Start | End Date | | | | | | Date | | + + + +---------+ + + | acyclovir 5 % | Apply to affected | | | | | | topical ointment | area five times | | | | | | | daily. PRN for | | | | | | | outbreaks | | | | | + + + +---------+ + + | acyclovir 800 mg | Take 800 mg by mouth | | | | | | oral tablet | five times daily. | | | | | | | PRN for outbreaks | | | | | + + + +---------+ + + | Cholecalciferol | Take 5,000 Units by | | | | | | (Vitamin D3) 5,000 | mouth once daily. | | | | | | unit oral capsule | | | | | | + + + +---------+ + + | insulin aspart | Inject three times | | | | | | U-100 (NOVOLOG | daily per sliding | | | | | | FLEXPEN U-100 | scale before meals. | | | | | | INSULIN) 100 unit/mL | If CBGs >150: no | | | | | | subcutaneous | insulin; 150-200: 5 | | | | | | insulin pen | units; >201 10 units | | | | | + + + +---------+ + + | LANTUS SOLOSTAR | Inject 60-80 Units | | | | | | U-100 INSULIN 100 | under the skin | | | | | | unit/mL (3 mL) | (SUBC) every twelve | | | | | | subcutaneous insulin | hours. | | | | | | pen | | | | | | + + + +---------+ + + | losartan 25 mg | Take 25 mg by mouth | | | | | | oral tablet | once daily. | | | | | + + + +---------+ + + | omeprazole 40 mg | Take 40 mg by mouth | | | | | | oral capsule,delayed | once daily in the | | | | | | release(DR/EC) | morning. | | | | | + + + +---------+ + + | oxyCODONE | Take 1 to 2 tablets | 30 | 0 | 08/14/19 | | | (immediate release) | by mouth every four | tablet | | 18 | | | 5 mg oral tablet | hours as needed for | | | | | | | moderate pain. | | | | | + + + +---------+ + + | rifAXIMin 550 mg | Take 550 mg by mouth | | | | | | oral tablet | two times daily. | | | | | + + + +---------+ + + | rosuvastatin | Take 10 mg by mouth | | | | | | (CRESTOR) 10 mg oral | once daily. | | | | | | tablet | | | | | | + + + +---------+ + + | lactulose 10 | Take 30 mL by mouth | 473 mL | 0 | 08/08/19 | | | gram/15 mL oral | four times daily. | | | 18 | 8 | | solution | | | | | | + + + +---------+ + + | | Take 1 tablet by | 14 | 0 | 08/08/19 | | | trimethoprim-sulfame | mouth two times | tablet | | 18 | 8 | | thoxazole 160-800 mg | daily for 7 days. | | | | | | oral tablet | | | | | | + + + +---------+ + + as of this encounter Plan of Treatment +--------+---------+ + + + | Date | Type | Specialty | Care Team | Description | +--------+---------+ + + + | 02/01/ | Office | Cardiology | Michelle Gan MD | | | 2018 | Visit | | [address] [facility] | | | | | | [address] | | | | | | [place], [place] | | | | | | [address] | | | | | | [phone] | | | | | | | | +--------+---------+ + + + as of this encounter Procedures + +--------+ + + + | Procedure Name | Priori | Date/Time | Associated Diagnosis | Comments | | | ty | | | | + +--------+ + + + | CT ABDOMEN AND | Routin | 08/13/2017 | Gallbladder | Results for this | | PELVIS W IV CONTRAST | e | 1:38 PM | perforation | procedure are in the | | | | PDT | | results section. | + +--------+ + + + in this encounter Results CT ABDOMEN AND PELVIS W IV CONTRAST (08/13/2017 1:38 PM) + + + | Narrative | Performed At | + + + | EXAM: CT of the abdomen and pelvis WITH intravenous contrast. | [facility] | | HISTORY: Abd pain, fever, abscess suspected.History of bile duct stone | RADIOLOGY VOICE | | and perforated cholecystitis status post cholecystostomy tube | RECOGNITION 2 | | placement. COMPARISON: MR 08/05/2017, outside CT 08/03/2017 | | | TECHNIQUE: CT of the abdomen and pelvis with non-ionic iodinated | | | intravenous contrast. Coronal and sagittal reformats were generated | | | and reviewed. FINDINGS: LOWER THORAX: Small right pleural | | | effusion with right basilar atelectasis. LIVER: Nodular liver | | | contour, in keeping with cirrhosis. 6 mm hepatic dome lesion | | | corresponds with a cyst seen on MRI 08/05/2017. BILIARY: The | | | gallbladder remains decompressed around the percutaneous | | | cholecystostomy tube with numerous calcified residual gallstones. | | | Gallbladder wall is thickened despite decompression. The rim-enhancing | | | fluid collection between the gallbladder and duodenum adjacent to the | | | common bile duct today measures 4.5 x 4.0 x 3.0 cm (axial 58, coronal | | | 54), previously 5 x 5 x 3.5 cm. There is persistent mass effect on | | | the common bile duct, resulting in upstream mild central intrahepatic | | | biliary dilatation, stable to slightly improved compared with recent | | | MRI. Previously seen rim-enhancing fluid collection along the greater | | | curvature of the stomach adjacent to the pylorus is not seen on | | | today's study. Variant anatomy biliary anatomy is better seen on MRI | | | 08/05/2017. PANCREAS: Unremarkable. SPLEEN: Enlarged measuring | | | 16.6 cm. ADRENALS: Unremarkable. KIDNEYS/URETERS: Unremarkable. | | | PELVIC ORGANS/BLADDER: Unremarkable. GI TRACT: Diverticulosis | | | without evidence of diverticulitis. PERITONEUM: No free air or fluid. | | | LYMPH NODES: No lymphadenopathy. VESSELS: Mild calcified | | | atherosclerotic disease of the aorta and its major branches. Mild | | | persistent mass effect on the main portal vein from the rim-enhancing | | | fluid collection without portal vein thrombus. Unchanged | | | splenomegaly and large spleno renal shunt. 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 BONES AND SOFT TISSUES: | | | Unremarkable. IMPRESSION: 1. Since 08/05/2017, slightly | | | decreased size of 4.5 cm hilar abscess secondary to perforated | | | cholecystitis, as above. Gallbladder remains decompressed by the | | | cholecystostomy tube. Variant biliary anatomy is better seen on prior | | | MRI. 2. Redemonstrated cirrhosis with portal hypertension. I | | | have personally reviewed the images and, if necessary, edited the | | | report. I agree with the report as now presented. Final | | | signature: Naresh Gr MD 08/13/2017 5:10 PM Preliminary: | | | Walter Perez MD 08/13/2017 2:42 PM Dictation initiated: | | | Walter Perez MD 08/13/2017 2:12 PM | | + + + + + | Procedure Note | + + | Service Account, Radiant Res In Interface - 08/13/2017 5:11 PM PDT EXAM: CT of the | | abdomen and pelvis WITH intravenous contrast. HISTORY: Abd pain, fever, abscess | | suspected.History of bile duct stone and perforated cholecystitis status post | | cholecystostomy tube placement. COMPARISON: MR 08/05/2017, outside CT 08/03/2017 | | TECHNIQUE: CT of the abdomen and pelvis with non-ionic iodinated intravenous contrast. | | Coronal and sagittal reformats were generated and reviewed. FINDINGS:LOWER THORAX: Small | | right pleural effusion with right basilar atelectasis. LIVER: Nodular liver contour, in | | keeping with cirrhosis. 6 mm hepatic dome lesion corresponds with a cyst seen on MRI | | 08/05/2017.BILIARY: The gallbladder remains decompressed around the percutaneous | | cholecystostomy tube with numerous calcified residual gallstones. Gallbladder wall is | | thickened despite decompression. The rim-enhancing fluid collection between the | | gallbladder and duodenum adjacent to the common bile duct today measures 4.5 x 4.0 x 3.0 | | cm (axial 58, coronal 54), previously 5 x 5 x 3.5 cm. There is persistent mass effect | | on the common bile duct, resulting in upstream mild central intrahepatic biliary | | dilatation, stable to slightly improved compared with recent MRI. Previously seen | | rim-enhancing fluid collection along the greater curvature of the stomach adjacent to | | the pylorus is not seen on today's study. Variant anatomy biliary anatomy is better seen | | on MRI 08/05/2017.PANCREAS: Unremarkable. SPLEEN: Enlarged measuring 16.6 cm.ADRENALS: | | Unremarkable.KIDNEYS/URETERS: Unremarkable.PELVIC ORGANS/BLADDER: Unremarkable. GI | | TRACT: Diverticulosis without evidence of diverticulitis.PERITONEUM: No free air or | | fluid. LYMPH NODES: No lymphadenopathy.VESSELS: Mild calcified atherosclerotic disease | | of the aorta and its major branches. Mild persistent mass effect on the main portal vein | | from the rim-enhancing fluid collection without portal vein thrombus. Unchanged | | splenomegaly and large spleno renal shunt. Esophageal and periesophageal varices are | | noted. BONES AND SOFT TISSUES: Unremarkable. IMPRESSION: 1. Since 08/05/2017, slightly | | decreased size of 4.5 cm hilar abscess secondary to perforated cholecystitis, as above. | | Gallbladder remains decompressed by the cholecystostomy tube. Variant biliary anatomy is | | better seen on prior MRI. 2. Redemonstrated cirrhosis with portal hypertension. I have | | personally reviewed the images and, if necessary, edited the report. I agree with the | | report as now presented. Final signature: Naresh Gr MD 08/13/2017 5:10 PM | | Preliminary: Walter Perez MD 08/13/2017 2:42 PM Dictation initiated: Walter Rosario | | MD Chris 08/13/2017 2:12 PM | |IMPRESSION: | | | |1. Since 08/05/2017, slightly decreased size of 4.5 cm hilar abscess secondary to perforated cholecystitis, as above. Gallbladder remains decompressed by the cholecystostomy tube. Vari ant biliary anatomy is better seen on prior MRI. | | | |2. Redemonstrated cirrhosis with portal hypertension. | | | |I have personally reviewed the images and, if necessary, edited the report. I agree with th e report as now presented. | | | |Final signature: Naresh Gr MD 08/13/2017 5:10 PM | |Preliminary: Walter Perez MD 08/13/2017 2:42 PM | |Dictation initiated: Walter Perez MD 08/13/2017 2:12 PM | + + + +---------+ + + | Performing | Address | City/State/Zipcode | Phone Number | | Organization | | | | + +---------+ + + | [facility] | | | | | VOICE RECOGNITION 2 | | | | + +---------+ + + in this encounter Visit Diagnoses + + | Diagnosis | + + | Gallbladder perforation | + + | Perforation of gallbladder | + + Administered Medications + +---------+ +--------+------+------+ | Medication Order | MAR | Action | Dose | Rate | Site | | | Action | Date | | | | + +---------+ +--------+------+------+ | iohexol (OMNIPAQUE) 350 mg | IV Push | | 100 mL | | | | iodine/mL injection 100 mL 100 | | 8 13:39 | | | | | mL, intravenous, PROCEDURE ONCE, | | PDT | | | | | 1 dose, 08/13/17 at 1345 | | | | | | + +---------+ +--------+------+------+ +---+---+ | | | +---+---+ in this encounter"
--- OUTSIDE RECORDS SUMMARY | ~2017-11-08 | XMS | Encounter Summary ---
Demographics + + + | Address | [address] | | | [place] [address] | + + + | Home Phone | | + + + | Preferred Language | Unknown | + + + | Marital Status | Single | + + + | Samaritan Affiliation | NRP | + + + | Race | or | + + + | Ethnic Group | Not or | + + + Author + + + | Author | [facility] | + + + | Organization | [facility] | + + + | Address | Unknown | + + + | Phone | Unavailable | + + + Support + + +---------+ + | Name | Relationship | Address | Phone | + + +---------+ + | CAMRON OCHOA | ECON | Unknown | | + + +---------+ + Care Team Providers + +------+ + | Care Engineer Rf Deployment Name | Role | Phone | + +------+ + | Shakir Monzon MD | PCP | | + +------+ + Encounter Details +--------+ + + + + | Date | Type | Department | Care Team | Description | +--------+ + + + + | 09/10/ | Procedure | Diagnostic Imaging | | | | 2017 | Pass | Services at [facility] | | | | | | [address] | | | | | | [facility] | | | | | | Mailcode: [id number] | | | | | | [address] | | | | | | [place], [place] | | | | | | [address] | | | | | | [phone] | | | +--------+ + + + [...] + + + as of this encounter Plan of Treatment +--------+---------+ + + + | Date | Type | Specialty | Care Team | Description | +--------+---------+ + + + | 02/01/ | Office | Cardiology | Michelle Gan MD | | | 2017 | Visit | | [address] [facility] | | | | | | [address] | | | | | | [place], [place] | | | | | | [address] | | | | | | [phone] | | | | | | | | +--------+---------+ + + + as of this encounter Visit Diagnoses Not on filein this encounter"
--- OUTSIDE RECORDS SUMMARY | ~2017-11-08 | XMS | Encounter Summary ---
Demographics + + + | Address | [address] | | | [place] [address] | + + + | Home Phone | | + + + | Preferred Language | Unknown | + + + | Marital Status | Single | + + + | Evangelical Affiliation | NRP | + + + | Race | or | + + + | Ethnic Group | Not or | + + + Author + + + | Author | [facility] | + + + | Organization | [facility] [facility] | + + + | Address | Unknown | + + + | Phone | Unavailable | + + + Support + + +---------+ + | Name | Relationship | Address | Phone | + + +---------+ + | CAMRON OCHOA | ECON | Unknown | | + + +---------+ + Care Team Providers + +------+ + | Care Manager Aerospace Name | Role | Phone | + [...] CT ABDOMEN | [address] | [address], | | | | | AND PELVIS | [place], [place] | [place] | | | | | [place] | [address] | [address] | | | | | CONTRAST AR | Phone: | Phone: | | | | | CT | [phone] | [phone] | | | | | ABDOMEN&PELV | Fax: | Fax: | | | | | IS | [phone] | [phone] | | | | | W/CONTRAST | [...] | | | Procedures | Renato | [facility] | | | | | CT ABDOMEN | [address] | [address], | | | | | AND PELVIS | [place], [place] | [place] | | | | | [place] | [address] | [address] | | | | | CONTRAST AR | Phone: | Phone: | | | | | CT | [phone] | [phone] | | | | | ABDOMEN&PELV | Fax: | Fax: | | | | | IS | [phone] | [phone] | | | | | W/CONTRAST | [...] CT ABDOMEN | [address] | [address], | | | | | AND PELVIS | [place], [place] | [place] | | | | | [place] | [address] | [address] | | | | | CONTRAST AR | Phone: | Phone: | | | | | CT | [phone] | [phone] | | | | | ABDOMEN&PELV | Fax: | Fax: | | | | | IS | [phone] | [phone] | | | | | W/CONTRAST | | | + +--------+ + + + + Encounter Details +--------+ + + + + | Date | Type | Department | Care Team | Description | +--------+ + + + + | 08/13/ | Hospital | Diagnostic Imaging | Jessika Allen, | | | 2018 | Encounter | Services at [facility] | [address] | | | | | [address] | [facility] | | | | | [facility] | [place], [place] | | | | | Mailcode: [address] [facility] | [address] | | | | | [facility], | [phone] | | | | | [place] [address] | | | | | | [phone] | | | +--------+ + + + [...] | 2018 | Visit | | [address] [facility] | | | | | | [address] | | | | | | [place], [place] | | | | | | [address] | | | | | | [phone] | | | | | | | [...]
--- OUTSIDE RECORDS SUMMARY | ~2017-11-08 | XMS | Encounter Summary ---
Demographics + + + | Address | [address] | | | [place] [address] | + + + | Home Phone | | + + + | Preferred Language | Unknown | + + + | Marital Status | Single | + + + | Yarsani Affiliation | NRP | + + + | Race | or | + + + | Ethnic Group | Not or | + + + Author + + + | Author | [facility] [email or web address] [facility] | + + + | Organization | [facility] [employer] [facility] | + + + | Address | Unknown | + + + | Phone | Unavailable | + + + Support + + +---------+ + | Name | Relationship | Address | Phone | + + +---------+ + | CAMRON OHCOA | ECON | Unknown | | + + +---------+ + Care Team Providers + +------+ + | Care Reinforcing Iron Worker Helper Name | Role | Phone | + +------+ + | Shakir Monzon MD | PCP | | + +------+ + Reason for Referral Office Visit - E/M Services (Routine) +--------+--------+ + + + + | Status | Reason | Specialty | Diagnoses / | Referred By | Referred To | | | | | Procedures | Contact | Contact | +--------+--------+ + + + + | Closed | | Hepatology | Diagnoses | | Gas | | | | | Hepatic | Casey, | Hepatology | | | | | cirrhosis, | MD Elle | [facility] [address] | | | | | unspecified | [address] | [address] | | | | | hepatic | Mereta | Mailcode: | | | | | cirrhosis | [address] | [facility] | | | | | type, | [place], [place] | for Health | | | | | unspecified | [address] | and Healing, | | | | | whether | Phone: | 6th Floor | | | | | ascites | [phone] | [place], [place] | | | | | present | Fax: | [address] | | | | | (HCC) | [phone] | Phone: | | | | | Procedures | | [phone] | | | | | CONSULT TO | | Fax: | | | | | HEPATOLOGY | | [phone] | +--------+--------+ + + + + Consultation (Routine) +--------+--------+ + + + + | Status | Reason | Specialty | Diagnoses / | Referred By | Referred To | | | | | Procedures | Contact | Contact | +--------+--------+ + + + + | Closed | | Cardiology | Diagnoses | | Bischof, | | | | | Shortness | Casey | Sharon Short, | | | | | of breath | MD Elle | [facility] [address] | | | | | Procedures | [address] | [address] | | | | | CONSULT TO | Renato | [place], [place] | | | | | CARDIOLOGY | [address] | [address] | | | | | | [place], [place] | Phone: | | | | | | [address] | [phone] | | | | | | Phone: | Fax: | | | | | | [phone] | [phone] | | | | | | Fax: | | | | | | | [phone] | | +--------+--------+ + + + + Diagnostic Testing (Routine) + +--------+ + + + + | Status | Reason | Specialty | Diagnoses / | Referred By | Referred To | | | | | Procedures | Contact | Contact | + +--------+ + + + + | New Request | | Cardiology | Diagnoses | | | | | | | Shortness | Casey, | | | | | | of breath | MD Elle | | | | | | Procedures | [address] | | | | | | INTRACARDIAC | [address] | | | | | | | [address] | | | | | | ECHOCARDIOGR | [place], [place] | | | | | | AM, ADULT | [address] | | | | | | | Phone: | | | | | | | [phone] | | | | | | | Fax: | | | | | | | [phone] | | + +--------+ + + + + Reason for Visit + + + | Reason | Comments | + + + | New patient | | | consultation | | + + + Consultation (Urgent) + +--------+ + + + + | Status | Reason | Specialty | Diagnoses / | Referred By | Referred To | | | | | Procedures | Contact | Contact | + +--------+ + + + + | Authorized | | Surgery | Diagnoses | Tra Emerg | [facility] | | | | | Unspecified | Gen Surg Ppv | [address] | | | | | cirrhosis | [address] | | | | | of liver | [place] | Mailcode: | | | | | Perforation | [address] | [facility] | | | | | of | Mailcode: | for Health | | | | | gallbladder | [id number] | and Healing, | | | | | | Phsyicians | 6th floor | | | | | | [address] | [place], [place] | | | | | | [place], | [address] | | | | | | [place] | Phone: | | | | | | [address] | [phone] | | | | | | Phone: | Fax: | | | | | | [phone] | [phone] | | | | | | Fax: | | | | | | | [phone] | | + +--------+ + + + + Encounter Details +--------+---------+ + + + | Date | Type | Department | Care Team | Description | +--------+---------+ + + + | 10/13/ | Office | Digestive Health | Clinton Morillo, | Shortness of breath | | 2018 | Visit | Center [address] | [address] | (Primary Dx); | | | | [address] Mailcode: | [address] | Hepatic cirrhosis, | | | | [facility] for | [place], [place] | unspecified hepatic | | | | Health and Healing, | [address] | cirrhosis type, | | | | 6th floor [place], | [phone] | unspecified whether | | | | [place] [address] | | ascites present | | | | [phone] | | ([facility]) | +--------+---------+ + + + Social History [...] + + + as of this encounter Last Filed Vital Signs + + + + | Vital Sign | Reading | Time Taken | + + + + | Blood Pressure | 153/81 | 10/13/2017 10:01 AM PDT | + + + + | Pulse | 66 | 10/13/2017 10:01 AM PDT | + + + + | Temperature | 36.3 C (97.3 F) | 10/13/2017 10:01 AM PDT | + + + + | Respiratory Rate | 16 | 10/13/2017 10:01 AM PDT | + + + + | Oxygen Saturation | - | - | + + + + | Inhaled Oxygen | - | - | | Concentration | | | + + + + | Weight | 92.3 kg (203 lb 6.4 | 10/13/2017 10:01 AM PDT | | | oz) | | + + + + | Height | 179.1 cm (5' 10.5") | 10/13/2017 10:01 AM PDT | + + + + | Body Mass Index | 28.77 | 10/13/2017 10:01 AM PDT | + + + + in this encounter Functional Status + + + [...] + + + as of this encounter Progress Notes lCinton Morillo MD - 10/13/2017 10:10 AM PDT I saw the patient and reviewed and verified all information documented by the medical stud ent and resident, and made modifications to such information, when appropriate Clinton Morillo M.D. [facility] [employer] ([facility]) Professor and Vice-Machine Sprayer of Surgery The [facility] Chair for Pancreatic Disease Research [facility] Cell phone: [phone] / [facility] provider's line [phone]. email: [email or web address] Elle Peña MD - 10/13/2017 10:10 AM PDTFormatting of this note may be different f rom the original. BLUE SURGERY NEW PATIENT CLINIC NOTE Author: Elle Peña MD Date: 10/13/2017 Reason for referral: perforated cholecystitis Referring provider: Dr Schafer HPI: Bret Espinal Jr. is a 62 y.o. male who presents with recent hospitalization and septi c shock after cholecystitis and perforated gallbladder, who now presents for cholecystectomy . He reports having some abdominal pain in April, but was reassured that he had cholelithias is/cholecystitis and his obstructing stone had passed and sent home. Although his symptoms c ontinued and he became jaundice. At that time he went to the hospital and was transferred to [facility] for further care. During this hospitalization he was septic with some acute hepatic in jury and required a cholecystostomy tube to control his sepsis. He recovered and has been at home with the cholecystostomy tube. Due to his severe systemic disease and cirrhosis, he w as referred back to [facility] for surgery. He reports getting around ok at home, although his shortness of breath has worsened after h is recent hospitalization and he gets quite winded. He reports he no longer has bad abdomina l pain, just pain associated with drain. He denies fevers, chills and reports tolerating his diet and normal bowel movements. PMH: Past Medical History: Diagnosis Date Cirrhosis of liver (HCC) Coronary artery disease Diabetes (HCC) PSH: No past surgical history on file. Family History: Social History: Social History Substance Use Topics Smoking status: Former Smoker Types: Cigarettes Quit date: 03/15/2017 Smokeless tobacco: Never Used Alcohol use Not on file Social History Narrative None on file MEDICATIONS: Insulin Metoprolol Omeprazole Oxycodone Rifaximin crestor ALLERGIES: Allergies Allergen Reactions Hydromorphone Anxiety, Confusion and Delirium OBJECTIVE: Vital Signs: Last Vitals: BP 153/81 | Pulse 66 | Temp (Src) 36.3 C (97.3 F) (Oral) | RR 16 | Ht 1.79 1 m (5' 10.5") | Wt 92.3 kg (203 lb 6.4 oz) | BMI 28.77 kg/(m^2) Review of systems: Review of Systems: General: No constitutional symptoms of fevers, fatigue, chills, weight loss or sweats. Eyes: No changes in vision, double vision, eye pain, eye irritation, discharge, blurred vi connie or light sensitivity. Ears, Nose and Throat: No hearing loss, ringing in the ears, ear discharge, earache, noseb john, nasal congestion, difficulty swallowing, hoarseness or sore throat. Respiratory: No shortness of breath, coughing up blood, excessive sputum, cough, chest dis comfort or wheezing. Musculoskeletal: No joint pain, swelling, stiffness, back pain, arthritis, muscle aches, m uscle cramps or loss of strength. Cardiovascular: No chest pain, skipping beats, lightheadedness, difficulty breathing uprig ht or lying down, fatigue, near fainting or fainting, palpitations, weight gain, edema, leg cramps. Gastrointestinal: No loss of appetite, excessive appetite, indigestion, vomiting, nausea, constipation, gas, abdominal pain, hemorrhoids, diarrhea, bloating, bloody stools or dark ta rry stools. Genitourinary: No urinary frequency, blood in urine, difficulty in urination, discharge, p ainful urination, incontinence, urinary urgency or genital sores. Neurologic: No unusual headaches, inability to speak, poor balance, numbness, tingling, tr emors, memory loss, disturbances in coordination or sensation of room spinning. Skin: No itching, rash, poor wound healing, night sweats, changes in skin color, dryness, flushing or suspicious lesions. Psychological: No abnormal anxiety, depression, thoughts of suicide or hallucinations. Heme/Lymphatic: No skin discoloration, abnormal bleeding or enlarged lymph nodes. Endocrine: No heat intolerance, cold intolerance, excessive hunger or excessive thirst. Allergic: No seasonal allergies, hives or rash, persistent infections or HIV exposure. Physical Exam: General: Some mild shortness of breath with talking at rest, otherwise no distress Neuro: alert and oriented HEENT: supple Lungs: mild shortness of breath at rest CV: regular rate and rhythm Abdomen: Soft, obese, nontender, drain in place with some bile in drain with small debris/ stones Extremities: Normal range of motion Skin: good turgor Studies: MRI 09/24 IMPRESSION: 1. Persistent inflammatory mass and two small residual hilar abscesses at the site of the p reviously seen large hilar abscess, with persistent upper common bile duct stricture and ups tream intrahepatic biliary duct dilatation. 2. Decompressed gallbladder and resolved fluid collections along the fundus and body status post cholecystostomy. 04/2017 Coronary catherization CONCLUSIONS: 1.Diffuse moderate to moderately severe CAD with severe [...] dominant RCA, moderate size vessel, with worst stenosis of about 50% in mid RCA and PL-1 2.Normal LV function by Echo. 3.Markedly tortuous and calcified left coronary system, especially the LCx system. ASSESSMENT and PLAN: 62 year old male with history of hep C cirrhosis, coronary artery dise ase with new worsening shortness of breath and recent history of sepsis secondary to perfora dominik cholecystitis s/p cholecystostomy tube. Imaging now demonstrates a common bile duct str icture Plan for cardiology evaluation given cardiac history and new worse shortness of breath afte r recent hospitalizations, need preoperative evaluation and optimization of heart. We will h ave him obtain echo near his home and bring report for cardiology consult. Will also refer h im to see hepatology to see if any medical optimization of liver failure preoperatively can be done. After he has been medically optimized he will need ERCP for evaluation and possibl e stenting of CBD stricture and then we will see the patient to discuss proceeding with lap aroscopic cholecystectomy. This plan was discussed with Dr Morillo. Elle Peña MD MIS Fellow in this encounter Plan of Treatment +--------+---------+ + + + | Date | Type | Specialty | Care Team | Description | +--------+---------+ + + + | 02/01/ | Office | Cardiology | Michelle Gan MD | | | 2018 | Visit | | [address] [facility] | | | | | | [facility] | | | | | | [place], [place] | | | | | | [address] | | | | | | [phone] | | | | | | | | +--------+---------+ + + + + +--------+ + + | Name | Priori | Associated Diagnoses | Order Schedule | | | ty | | | + +--------+ + + | INTRACARDIAC ECHOCARDIOGRAM, | Routin | Shortness of | Ordered: 10/13/2017 | | ADULT | e | breath | | + +--------+ + + as of this encounter Visit Diagnoses + + | Diagnosis | + + | Shortness of breath - Primary | + + | Hepatic cirrhosis, unspecified hepatic cirrhosis type, unspecified whether ascites | | present (HCC) | + +
--- OUTSIDE RECORDS SUMMARY | ~2017-11-08 | XMS | Encounter Summary ---
Demographics + + + | Address | [address] | | | [place] [address] | + + + | Home Phone | | + + + | Preferred Language | Unknown | + + + | Marital Status | Single | + + + | Sikh Affiliation | NRP | + + + | Race | or | + + + | Ethnic Group | Not or | + + + Author + + + | Author | [facility] | + + + | Organization | [facility] [employer] [facility] | + + + | Address | Unknown | + + + | Phone | Unavailable | + + + Support + + +---------+ + | Name | Relationship | Address | Phone | + + +---------+ + | CAMRON OCHOA | ECON | Unknown | | + + +---------+ + Care Team Providers + +------+ + | Care Senior Brand Manager Name | Role | Phone | + +------+ + | Shakir Monzon MD | PCP | | + +------+ + Encounter Details +--------+ + + + + | Date | Type | Department | Care Team | Description | +--------+ + + + + | 11/01/ | Abstract | Cardiology General | Sharon Sanderson | | | 2018 | | at [facility] [address] | | | | | [address] Mailcode: | [address] [place], | | | | | [facility] | [place] [address] | | | | | Health and Healing, | [phone] | | | | | [address] Floor [place], | | | | | | [place] [address] | | | | | | [phone] | | | +--------+ + + + [...] | 2017 | Visit | | [address] | | | | | | [address] | | | | | | [place] | | | | | | [address] | | | | | | [phone] | | | | | | | | +--------+---------+ + + + as of this encounter Visit Diagnoses Not on filein this encounter"
--- OUTSIDE RECORDS SUMMARY | ~2017-11-08 | XMS | Encounter Summary ---
Demographics + + + | Address | [address] | | | [place] [address] | + + + | Home Phone [...] + | Author | [facility] [employer] [facility] | + + + | Organization | [facility] [employer] [facility] | + + + | Address | Unknown | + + + | Phone | Unavailable | + + + Support + + +---------+ + | Name | Relationship | Address | Phone | + + +---------+ + | CAMRON OCHOA | ECON | Unknown | | + + +---------+ + Care Team Providers + +------+ + | Care Hebrew Teacher Name | Role | Phone | + +------+ + | Shakir Monzon MD | PCP | | + +------+ + Encounter Details +--------+ + + + + | Date | Type | Department | Care Team | Description | +--------+ + + + + | 09/30/ | Telephone | Trauma Emergency | Moustapha Schafer MD | | | 2018 | | General Surgery at | [address] | | | | | PPV [address] | [facility], | | | | | [facility] | [place] [address] | | | | | Mailcode: [id number] | [phone] | | | | | [address] | | | | | | [address] [place], [place] | | | | | | [address] | | | | | | [phone] | | | +--------+ + + + [...] | 2017 | Visit | | [address] [facility] | | | | | | [address] | | | | | | [place], [place] | | | | | | [address] | | | | | | [phone] | | | | | | | | +--------+---------+ + + + as of this encounter Visit Diagnoses Not on filein this encounter"
--- OUTSIDE RECORDS SUMMARY | ~2017-11-08 | XMS | Encounter Summary ---
Demographics + + + | Address | [address] | | | [place] [address] | + + + | Home Phone [...] + + + | Author | [facility] | + + + | Organization | [facility] | + + + | Address | Unknown | + + + | Phone | Unavailable | + + + Support + + +---------+ + | Name | Relationship | Address | Phone | + + +---------+ + | CAMRON OCHOA | ECON | Unknown | | + + +---------+ + Care Team Providers + +------+ + | Care Scenic Artist Name | Role | Phone | + +------+ + | Shakir Monzon MD | PCP | | + +------+ + Encounter Details +--------+------+ + + + | Date | Type | Department | Care Team | Description | +--------+------+ + + + | 10/13/ | Lab | Laboratory at [facility] | | Cirrhosis of liver | | 2017 | | 3rd Floor [address] | | without ascites, | | | | [place], | | unspecified hepatic | | | | [place] [address] | | cirrhosis type (HCC) | | | | [phone] | | | +--------+------+ + + + Social History + + [...] | 2018 | Visit | | [address] | | | | | | [address] | | | | | | [place], [place] | | | | | | [address] | | | | | | [phone] | | | | | | | | +--------+---------+ + + + as of this encounter Procedures + +--------+ + + + | Procedure Name | Priori | Date/Time | Associated Diagnosis | Comments | | | ty | | | | + +--------+ + + + | CBC (HEMOGRAM) ONLY | Routin | 10/13/2017 | Cirrhosis of liver | Results for this | | | e | 9:49 AM | without ascites, | procedure are in the | | | | PDT | unspecified hepatic | results section. | | | | | cirrhosis type (HCC) | | + +--------+ + + + | INR | Routin | 10/13/2017 | Cirrhosis of liver | Results for this | | | e | 9:49 AM | without ascites, | procedure are in the | | | | PDT | unspecified hepatic | results section. | | | | | cirrhosis type (HCC) | | + +--------+ + + + | COMPLETE METABOLIC | Routin | 10/13/2017 | Cirrhosis of liver | Results for this | | SET | e | 9:49 AM | without ascites, | procedure are in the | | (NA,K,CL,CO2,BUN,CRE | | PDT | unspecified hepatic | results section. | | AT,GLUC,CA,AST,ALT,B | | | cirrhosis type (HCC) | | | NIC TOTAL,ALK | | | | | | PHOS,ALB,PROT TOTAL) | | | | | + +--------+ + + + | CBC ONLY | Routin | 10/13/2017 | Cirrhosis of liver | Results for this | | | e | 9:49 AM | without ascites, | procedure are in the | | | | PDT | unspecified hepatic | results section. | | | | | cirrhosis type (HCC) | | + +--------+ + + + | ALPHA-FETOPROTEIN | Routin | 10/13/2017 | Cirrhosis of liver | Results for this | | TUMOR MARKER, SERUM | e | 9:49 AM | without ascites, | procedure are in the | | | | PDT | unspecified hepatic | results section. | | | | | cirrhosis type (HCC) | | + +--------+ + + + in this encounter Results CBC (HEMOGRAM) ONLY (10/13/2017 9:49 AM) + + + + + | Component | Value | Ref Range | Performed At | + + + + + | WHITE CELL COUNT | 6.70 | 3.50 - 10.80 K/cu mm | [facility] | | | | | SERVICES, CORE | + + + + + | RED CELL COUNT | 4.40 (L) | 4.50 - 6.00 M/cu mm | [facility] | | | | | SERVICES, CORE | + + + + + | HEMOGLOBIN | 14.0 | 13.5 - 17.5 g/dL | [facility] | | | | | SERVICES, CORE | + + + + + | HEMATOCRIT | 40.5 (L) | 41.0 - 53.0 % | [facility] | | | | | SERVICES, CORE | + + + + + | MCV | 92.0 | 80.0 - 100.0 fL | [facility] | | | | | SERVICES, CORE | + + + + + | MCHC | 34.6 | 32.0 - 36.0 g/dL | [facility] | | | | | SERVICES, CORE | + + + + + | RDW SD | 46.9 (H) | 35.1 - 46.3 fL | [facility] | | | | | SERVICES, CORE | + + + + + | PLATELET COUNT | 78 (L)Comment: | 150 - 400 K/cu mm | [facility] | | | Macroplatelets present. | | SERVICES, CORE | + + + + + | MPV | 11.7 | 9.7 - 12.3 fL | [facility] | | | | | SERVICES, CORE | + + + + + | NRBC% | 0.0 | 0.0 - 0.3 % | [facility] | | | | | SERVICES, CORE | + + + + + | NRBC# | 0.00 | 0.00 - 0.02 K/cu mm | [facility] | | | | | SERVICES, CORE | + + + + + + + | Specimen | + + | Blood - Blood | + + + + + + + | Performing | Address | City/State/Zipcode | Phone Number | | Organization | | | | + + + + + | [facility] | [address] | [place] [address] | | | SERVICES, CORE | [address] | | | + + + + + ALPHA-FETOPROTEIN TUMOR MARKER, SERUM (10/13/2017 9:49 AM) + +-------+ + + | Component | Value | Ref Range | Performed At | + +-------+ + + | AFP TUMOR MARKER | 7.7 | <=9.0 ng/mL | [facility] | | SERUM, [facility] | | | SERVICES, CORE | + +-------+ + + + + | Specimen | + + | Blood - Blood | + + + + + + + | Performing | Address | City/State/Zipcode | Phone Number | | Organization | | | | + + + + + | [facility] | [address] | [place] [address] | | | SERVICES, CORE | [address] | | | + + + + + INR (10/13/2017 9:49 AM) + +-------+ + + | Component | Value | Ref Range | Performed At | + +-------+ + + | INR | 1.11 | 0.90 - 1.20 INR | [facility] | | | | | SERVICES, [...] | + + + + + | [facility] | [address] | [place] [address] | | | SERVICES, CORE | [address] | | | + + + + + COMPLETE METABOLIC SET (NA,K,CL,CO2,BUN,CREAT,GLUC,CA,AST,ALT,BILI TOTAL,ALK PHOS,ALB,PROT TOTAL) (10/13/2017 9:49 AM) + +---------+ + + | Component | Value | Ref Range | Performed At | + +---------+ + + | GLUCOSE, PLASMA | 248 (H) | 70 - 99 mg/dL | [facility] | | (LAB) | | | SERVICES, CORE | + +---------+ + + | BUN, PLASMA (LAB) | 8 | 6 - 20 mg/dL | [facility] | | | | | [facility] CORE | + +---------+ + + | CREATININE PLASMA | 0.88 | 0.70 - 1.30 mg/dL | [facility] | | (LAB) | | | [facility], CORE | + +---------+ + + | EGFR - | >60 | >60 mL/min | [facility] | | [facility] | | | [facility] CORE | + +---------+ + + | EGFR NON | >60 | >60 mL/min | [facility] | | -[facility] | | | SERVICES, CORE | + +---------+ + + | SODIUM, PLASMA (LAB) | 140 | 136 - 145 mmol/L | [facility] | | | | | SERVICES, CORE | + +---------+ + + | POTASSIUM, PLASMA | 3.2 (L) | 3.4 - 5.0 mmol/L | [facility] | | (LAB) | | | SERVICES, CORE | + +---------+ + + | CHLORIDE, PLASMA | 110 (H) | 97 - 108 mmol/L | [facility] | | (LAB) | | | SERVICES, CORE | + +---------+ + + | TOTAL CO2, PLASMA | 22 | 21 - 32 mmol/L | [facility] | | (LAB) | | | SERVICES, CORE | + +---------+ + + | CALCIUM, PLASMA | 8.7 | 8.6 - 10.2 mg/dL | [facility] | | (LAB) | | | SERVICES, CORE | + +---------+ + + | CALCIUM(ALB | 9.7 | 8.6 - 10.2 mg/dL | [facility] | | CORRECTED) | | | SERVICES, CORE | + +---------+ + + | BILIRUBIN TOTAL | 1.4 (H) | 0.3 - 1.2 mg/dL | [facility] | | | | | SERVICES, CORE | + +---------+ + + | TOTAL PROTEIN, | 7.0 | 6.4 - 8.2 g/dL | [facility] | | PLASMA (LAB) | | | [facility], CORE | + +---------+ + + | ALBUMIN, PLASMA | 2.8 (L) | 3.5 - 4.7 g/dL | [facility] | | (LAB) | | | SERVICES, CORE | + +---------+ + + | ALK PHOS | 105 | 56 - 119 U/L | [facility] | | | | | SERVICES, CORE | + +---------+ + + | AST(SGOT) | 34 | <=41 U/L | [facility] | | | | | SERVICES, CORE | + +---------+ + + | ALT (SGPT) | 33 | <=60 U/L | [facility] | | | | | SERVICES, CORE | + +---------+ + + | ANION GAP | 8 | 4 - 11 mmol/L | [facility] | | | | | SERVICES, CORE | + +---------+ + + | ANION GAP(ALB | 11 | 4 - 11 mmol/L | [facility] | | CORRECTED) | | | SERVICES, CORE | + +---------+ + + | POTASSIUM CMNT | No Hemo | | [facility] | | | | | SERVICES, CORE | + +---------+ + + | BILI T CMNT | No Hemo | | [facility] | | | | | SERVICES, CORE | + +---------+ + + | AST CMNT | No Hemo | | [facility] | | | | | SERVICES, CORE | + +---------+ + + + + | Specimen | + + | Blood | + + + + + | Narrative | Performed At | + + + | GFR is estimated using the MDRD equation recommended by the | [facility] | | National Kidney Disease Education Program. Estimated GFR | LABORATORY | | Interpretive Information: <60 mL/min/1.73 sq | SERVICES, CORE | | m Chronic Kidney Disease <15 mL/min/1.73 | | | sq m Kidney Failure Estimated GFR greater | | | that 60 mL/min/1.73 sq m is of limited clinical value. The MDRD | | | equation is not valid in the following situations: - Patients under | | | 18 years of age - Severe malnutrition or obesity - Vegetarian diet | | | - Rapidly changing kidney function - Amputees, paraplegics, or other | | | muscle-wasting diseses | | + + + + + + + + | Performing | Address | City/State/Zipcode | Phone Number | | Organization | | | | + + + + + | [facility] | [address] | [place] [address] | | | SERVICES, CORE | [address] | | | + + + + + in this encounter Visit Diagnoses + + | Diagnosis | + + | Cirrhosis of liver without ascites, unspecified hepatic cirrhosis type (HCC) | + +"
--- OUTSIDE RECORDS SUMMARY | ~2017-11-08 | XMS | Clinical Summary ---
Demographics + + + | Address | [address] | | | [place] [address] | + + + | Home Phone | | + + + | Preferred Language | Unknown | + + + | Marital Status | Unknown | + + + | Rastafari Affiliation | Unknown | + + + | Race | Unknown | + + + | Ethnic Group | Unknown | + + + Author + + + | Author | [facility] | + + + | Organization | [facility] | + + + | Address | Unknown | + + + | Phone | Unavailable | + + + Support + + +---------+ + | Name | Relationship | Address | Phone | + + +---------+ + | No,Contact | ECON | Unknown | | + + +---------+ + Care Team Providers + +------+ + | Care Foot Worker Name | Role | Phone | + +------+ + | Shakir Monzon MD | PP | | + +------+ + Allergies Not on File Current Medications + + +-------+---------+------+------+-------+ | Prescription | Sig. | Disp. | Refills | Star | End | Statu | | | | | | t | Date | s | | | | | | Date | | | + + +-------+---------+------+------+-------+ | Cholecalciferol | Take 5,000 Units by | | | | | Activ | | 5000 units capsule | mouth daily. | | | | | e | + + +-------+---------+------+------+-------+ | fluconazole | 200 mg. Take 1/2 [...] + +-------+---------+------+------+-------+ | insulin glargine | Inject 64 units | | | | | Activ | | (LANTUS) 100 UNIT/ML | under the skin at | | | | | e | | injection | bedtime for diabetes | | | | | | + + +-------+---------+------+------+-------+ | insulin aspart | Inject XX units [...] | | + + +-------+---------+------+------+-------+ | lactulose | Take 30ML by mouth [...] | | | | Activ | | (FORTAMET) 1000 MG | mouth 2 (two) times | | | | | e | | (OSM) 24 hr tablet | daily with meals. | | | | | | + + +-------+---------+------+------+-------+ | omeprazole | Take 40 mg by mouth | | | | | Activ | | (PRILOSEC) 40 MG | daily. | | | | | e | | capsule | | | | | | | + + +-------+---------+------+------+-------+ | rifaximin | Take 550 mg by mouth | | | | | Activ | | (XIFAXAN) 550 MG | 2 (two) times | | | | | e | | TABS | daily. | | | | | | + + +-------+---------+------+------+-------+ Active Problems + + + | Problem | Noted Date | + + + | Chronic hep C, GT 1a VL 3.4 million IU/mL, Decompensated | 07/07/2016 | | Cirrhosis | | + + + | Alcoholic / viral cirrhosis of liver with ascites (HCC) | 07/07/2016 | + + + Encounters +--------+ + + + + | Date | Type | Specialty | Care Team | Description | +--------+ + + + + | 10/27/ | Ancillary | | Shakir Monzon MD | Coronary artery | | 2017 | Procedure | | | disease, angina | | | | | | presence | | | | | | unspecified, | | | | | | unspecified vessel | | | | | | or lesion type, | | | | | | unspecified whether | | | | | | [place] or | | | | | | transplanted heart | +--------+ + + + + | 10/27/ | Ancillary | | Shakir Monzon MD | Coronary artery | | 2018 | Orders | | | disease, angina | | | | | | presence | | | | | | unspecified, | | | | | | unspecified vessel | | | | | | or lesion type, | | | | | | unspecified whether | | | | | | [place] or | | | | | | transplanted heart | +--------+ + + + + from Last 3 Months Social History + +-------+ +--------+------+ | Tobacco Use | Types | Packs/Day | Years | Date | | | | | Used | | + +-------+ +--------+------+ | Current Every Day | | | | | | Smoker | | | | | + +-------+ +--------+------+ + + +---------+ + | Alcohol Use [...] + + + | Blood Pressure | 141/85 | 07/07/2016 10:19 AM PDT | + + + + | Pulse | 69 | 07/07/2016 10:19 AM PDT | + + + + | Temperature | 36.3 C (97.4 F) | 07/07/2016 10:19 AM PDT | + + + + | Respiratory Rate | 16 | 07/07/2016 10:19 AM PDT | + + + + | Oxygen Saturation | 97% | 07/07/2016 10:19 AM PDT | + + + + | Inhaled Oxygen | - | - | | Concentration | | | + + + + | Weight | 102.3 kg (225 lb 9.6 | 07/07/2016 10:19 AM PDT | | | oz) | | + + + + | Height | 179.1 cm (5' 10.5") | 07/07/2016 10:19 AM PDT | + + + + | Body Mass Index | 31.91 | 07/07/2016 10:19 AM PDT | + [...] | | | | | (#1) | 8 | | | + + + + + Procedures + +--------+ + + + | Procedure Name | Priori | Date/Time | Associated Diagnosis | Comments | | | ty | | | | + +--------+ + + + | ECHO OUTSIDE | Routin | 10/27/2017 | Coronary artery | Results for this | | INTERPRETATION | e | 3:11 PM | disease, angina | procedure are in the | | STANDARD | | PDT | presence | results section. | | | | | unspecified, | | | | | | unspecified vessel | | | | | | or lesion type, | | | | | | unspecified whether | | | | | | [place] or | | | | | | transplanted heart | | + +--------+ + + + from Last 3 Months Results ECHO outside interpretation standard (10/27/2017 3:11 PM) + + + | Impressions | Performed At | + + + | 1. The left ventricle is normal in size, wall thickness and systolic | [facility] | | function EF 60-65%. 2. The right ventricle is normal in size and | [facility]OLOGY | | function. 3. Mild degenerative changes in the aortic and mitral | | | vavles. 4. There is no pericardial effusion. | | + + + + + + | Narrative | Performed At | + + + | Patient Name: Behzad Espinal Date of : 1955 | [facility] | | Performing Physician: Ayana Felton | RADIOLOGY | | | | | INDICATIONS CAD CONCLUSIONS 1. The | | | left ventricle is normal in size, wall thickness and systolic function | | | EF 60-65%. 2. The right ventricle is normal in size and function. | | | 3. Mild degenerative changes in the aortic and mitral vavles. 4. | | | There is no pericardial effusion. FINDINGS -------- ECG rhythm: | | | Sinus rhythm. Study: A 2-dimensional transthoracic echocardiogram | | | with m-mode, spectral and color flow Doppler was perfomed. Study: | | | This was a technically adequate study. Left Ventricle: Overall left | | | ventricular systolic function is normal with, an EF between 60 - 65 %. | | | Left Ventricle: The left ventricle cavity size is normal. Left | | | Ventricle: Left ventricular wall thickness is normal. Left | | | Ventricle: The diastolic filling pattern is normal for the age of the | | | patient. Right Ventricle: The right ventricle is normal in size and | | | function. Left Atrium: The left atrial size is normal. Right Atrium: | | | The right atrium is mildly enlarged. Aortic Valve: The aortic valve | | | is mildly calcified. Aortic Valve: There is no evidence of aortic | | | regurgitation. Aortic Valve: There is mild aortic stenosis present. | | | Aortic Valve: The aortic valve appears to be trileaflet. Aortic | | | Valve: Aortic valve is mildly thickened. Mitral Valve: There is trace | | | mitral regurgitation. Mitral Valve: Mild mitral annular | | | calcification present. Tricuspid Valve: The tricuspid valve appears | | | structurally normal. Tricuspid Valve: Trace tricuspid regurgitation | | | present. Tricuspid Valve: There is no evidence of pulmonary | | | hypertension. Tricuspid Valve: The right ventricular systolic | | | pressure (pulmonary artery systolic pressure), as measured by Doppler, | | | is 18.15mmHg. Pulmonic Valve: Pulmonic valve appears structurally | | | normal. Pulmonic Valve: Trace pulmonic regurgitation. Pulmonic | | | Valve: Mild degenerative changes in the aortic and mitral vavles. | | | Pericardium: There is no pericardial effusion. Pericardium: No | | | pleural effusion seen. IVC/Hepatic Veins: The inferior vena cava is | | | normal in size and collapses > 50 % with sniff, indicating normal | | | central venous pressures. Aorta: The aortic root is dilated, limited | | | to the sinuses of valsalva measuring up to 43 mm. MEASUREMENTS | | | Ao asc: 3.51 cm Ao sinus: 4.[address] | | | junct: 3.68 cm IVC: 1.67 cm LA Diam: 4.11 cm | | | EDV(Teich): 111.71 ml IVSd: 0.94 cm LVIDd: 4.87 cm | | | LVPWd: 0.85 cm LVOT Area: 3.94 cm2 LVOT Diam: 2.24 cm | | | %FS: 34.03 % EF(Teich): 62.81 % ESV(Teich): 41.54 ml | | | LVIDs: 3.21 cm SV(Teich): 70.17 ml RVIDd: 3.23 cm LVEF | | | MOD A2C: 60.75 % SV MOD A2C: 50.17 ml LVEF MOD A4C: | | | 58.46 % SV MOD A4C: 72.19 ml EF Biplane: 58.38 % LVEDV MOD | | | BP: 101.90 ml LVESV MOD BP: 42.40 ml LVEDV MOD A2C: | | | 82.58 ml LVLd A2C: 8.32 cm LVEDV MOD A4C: 123.47 ml LVLd | | | A4C: 8.50 cm LVESV MOD A2C: 32.40 ml LVLs A2C: 7.20 cm | | | LVESV MOD A4C: 51.28 ml LVLs A4C: 6.63 cm LAESV(A-L): | | | 59.93 ml LAESV Index (A-L): 28.14 ml/m2 LAAs A2C: 18.26 cm2 | | | LAESV A-L A2C: 53.81 ml LALs A2C: 5.26 cm LAAs A4C: | | | 20.28 cm2 LAESV A-L A4C: 66.58 ml LALs A4C: 5.24 cm | | | RAAs: 20.48 cm2 RAESV A-L: 70.40 ml RAESV MOD: 63.59 ml | | | RALs: 5.06 cm TAPSE: 2.02 cm AV maxP.52 mmHg AV | | | meanP.83 mmHg AV Vmax: 1.83 m/s AV Vmean: 1.21 m/s | | | AV VTI: 36.82 cm NIYA Vmax: 2.09 cm2 NIYA (VTI): 2.36 cm2 | | | AVAI (Vmax): 0.00 cm2/m2 AVAI (VTI): 0.00 cm2/m2 LVOT | | | maxP.80 mmHg LVOT meanP.09 mmHg LVSI Dopp: 40.90 | | | ml/m2 LVSV Dopp: 87.12 ml LVOT Vmax: 0.97 m/s LVOT | | | Vmean: 0.68 m/s LVOT VTI: 22.11 cm MV A [place]: 0.80 m/s | | | MV Dec [place]: 2.88 m/s2 MV DecT: 315.34 ms MV E Jordan: | | | 0.90 m/s MV E/A Ratio: 1.12 MV PHT: 91.45 ms MVA By | | | PHT: 2.40 cm2 Septal e': 0.08 m/s Septal E/e': 11.35 | | | RAP: 5 mmHg RVSP: 18.14 mmHg TR maxP.14 mmHg TR | | | Vmax: 1.81 m/s Fundraising Specialist: JUD Authenticated by: Ayana | | | [place] Report Date/Time: 10-28-2017 12:48:42 | | + + + + + | Procedure Note | + + | Harjit, Rad Results In - 10/28/2017 12:51 PM PDT Patient Name: Kenyon Espinal of | | : 1955ccession: [id number] Physician: Ayana | | [facility] INDICATIONS------ | | -----CADCONCLUSIONS 1. The left ventricle is normal in size, wall thickness | | and systolic function EF 60-65%.2. The right ventricle is normal in size and function.3. | | Mild degenerative changes in the aortic and mitral vavles.4. There is no pericardial | | effusion.FINDINGS--------ECG rhythm: Sinus rhythm.Study: A 2-dimensional transthoracic | | echocardiogram with m-mode, spectral and color flow Doppler was perfomed. Study: This | | was a technically adequate study.Left Ventricle: Overall left ventricular systolic | | function is normal with, an EF between 60 - 65 %. Left Ventricle: The left ventricle | | cavity size is normal. Left Ventricle: Left ventricular wall thickness is normal. Left | | Ventricle: The diastolic filling pattern is normal for the age of the patient.Right | | Ventricle: The right ventricle is normal in size and function.Left Atrium: The left | | atrial size is normal.Right Atrium: The right atrium is mildly enlarged.Aortic Valve: | | The aortic valve is mildly calcified. Aortic Valve: There is no evidence of aortic | | regurgitation. Aortic Valve: There is mild aortic stenosis present. Aortic Valve: The | | aortic valve appears to be trileaflet. Aortic Valve: Aortic valve is mildly | | thickened.Mitral Valve: There is trace mitral regurgitation. Mitral Valve: Mild mitral | | annular calcification present.Tricuspid Valve: The tricuspid valve appears structurally | | normal. Tricuspid Valve: Trace tricuspid regurgitation present. Tricuspid Valve: There | | is no evidence of pulmonary hypertension. Tricuspid Valve: The right ventricular | | systolic pressure (pulmonary artery systolic pressure), as measured by Doppler, is | | 18.15mmHg.Pulmonic Valve: Pulmonic valve appears structurally normal. Pulmonic Valve: | | Trace pulmonic regurgitation. Pulmonic Valve: Mild degenerative changes in the aortic | | and mitral vavles.Pericardium: There is no pericardial effusion. Pericardium: No pleural | | effusion seen.IVC/Hepatic Veins: The inferior vena cava is normal in size and collapses | | > 50 % with sniff, indicating normal central venous pressures.Aorta: The aortic root is | | dilated, limited to the sinuses of valsalva measuring up to 43 | | mm.MEASUREMENTS Ao asc: 3.51 cmAo sinus: 4.[address] junct: 3.68 | | cmIVC: 1.67 cmLA Diam: 4.11 cmEDV(Teich): 111.71 mlIVSd: 0.94 cmLVIDd: 4.87 | | cmLVPWd: 0.85 cmLVOT Area: 3.94 [id number] Diam: 2.24 cm%FS: 34.03 %EF(Teich): | | 62.81 %ESV(Teich): 41.54 mlLVIDs: 3.21 cmSV(Teich): 70.17 mlRVIDd: 3.23 cmLVEF | | MOD A2C: 60.75 %SV MOD A2C: 50.17 mlLVEF MOD A4C: 58.46 %SV MOD A4C: 72.19 mlEF | | Biplane: 58.38 %LVEDV MOD BP: 101.90 mlLVESV MOD BP: 42.40 mlLVEDV MOD A2C: | | 82.58 mlLVLd A2C: 8.32 cmLVEDV MOD A4C: 123.47 mlLVLd A4C: 8.50 cmLVESV MOD A2C: | | 32.40 mlLVLs A2C: 7.20 cmLVESV MOD A4C: 51.28 mlLVLs A4C: 6.63 cmLAESV(A-L): | | 59.93 mlLAESV Index (A-L): 28.14 ml/m2LAAs A2C: 18.26 [id number] A-L A2C: 53.81 | | mlLALs A2C: 5.26 cmLAAs A4C: 20.28 [id number] A-L A4C: 66.58 mlLALs A4C: 5.24 | | cmRAAs: 20.48 [id number] A-L: 70.40 mlRAESV MOD: 63.59 mlRALs: 5.06 cmTAPSE: | | 2.02 cmAV maxP.52 mmHgAV meanP.83 mmHgAV Vmax: 1.83 m/Viv Vmean: 1.21 | | m/Viv VTI: 36.82 cmAVA Vmax: 2.09 cm2AVA (VTI): 2.36 kf4WVWW (Vmax): 0.00 | | cm2/m2AVAI (VTI): 0.00 cm2/m2LVOT maxP.80 mmHgLVOT meanP.09 mmHgLVSI Dopp: | | 40.90 ml/m2LVSV Dopp: 87.12 mlLVOT Vmax: 0.97 m/sLVOT Vmean: 0.68 m/sLVOT VTI: | | 22.11 cmMV A [place]: 0.80 m/sMV Dec [place]: 2.88 m/s2MV DecT: 315.34 msMV E [place]: | | 0.90 m/sMV E/A Ratio: 1.12 MV PHT: 91.45 msMVA By PHT: 2.40 [id number] e': 0.08 | | m/sSeptal E/e': 11.35 RAP: 5 mmHgRVSP: 18.14 mmHgTR maxP.14 mmHgTR Vmax: | | 1.81 m/sSonographer: DBSAuthenticated by: Ayana Jose FranciscoReport Date/Time: 10-28-2017 | | 12:48:42IMPRESSION:1. The left ventricle is normal in size, wall thickness and systolic | | function EF 60-65%.2. The right ventricle is normal in size and function.3. Mild | | degenerative changes in the aortic and mitral vavles.4. There is no pericardial | | effusion. | | | |Ao asc: 3.51 cm | |Ao sinus: 4.28 cm | |Ao st junct: 3.68 cm | |IVC: 1.67 cm | |LA Diam: 4.11 cm | |EDV(Teich): 111.71 ml | |IVSd: 0.94 cm | |LVIDd: 4.87 cm | |LVPWd: 0.85 cm | |LVOT Area: 3.94 cm2 | |LVOT Diam: 2.24 cm | |%FS: 34.03 % | |EF(Teich): 62.81 % | |ESV(Teich): 41.54 ml | |LVIDs: 3.21 cm | |SV(Teich): 70.17 ml | |RVIDd: 3.23 cm | |LVEF MOD A2C: 60.75 % | |SV MOD A2C: 50.17 ml | |LVEF MOD A4C: 58.46 % | |SV MOD A4C: 72.19 ml | |EF Biplane: 58.38 % | |LVEDV MOD BP: 101.90 ml | |LVESV MOD BP: 42.40 ml | |LVEDV MOD A2C: 82.58 ml | |LVLd A2C: 8.32 cm | |LVEDV MOD A4C: 123.47 ml | |LVLd A4C: 8.50 cm | |LVESV MOD A2C: 32.40 ml | |LVLs A2C: 7.20 cm | |LVESV MOD A4C: 51.28 ml | |LVLs A4C: 6.63 cm | |LAESV(A-L): 59.93 ml | |LAESV Index (A-L): 28.14 ml/m2 | |LAAs A2C: 18.26 cm2 | |LAESV A-L A2C: 53.81 ml | |LALs A2C: 5.26 cm | |LAAs A4C: 20.28 cm2 | |LAESV A-L A4C: 66.58 ml | |LALs A4C: 5.24 cm | |RAAs: 20.48 cm2 | |RAESV A-L: 70.40 ml | |RAESV MOD: 63.59 ml | |RALs: 5.06 cm | |TAPSE: 2.02 cm | |AV maxP.52 mmHg | |AV meanP.83 mmHg | |AV Vmax: 1.83 m/s | |AV Vmean: 1.21 m/s | |AV VTI: 36.82 cm | |NIYA Vmax: 2.09 cm2 | |NIYA (VTI): 2.36 cm2 | |AVAI (Vmax): 0.00 cm2/m2 | |AVAI (VTI): 0.00 cm2/m2 | |LVOT maxP.80 mmHg | |LVOT meanP.09 mmHg | |LVSI Dopp: 40.90 ml/m2 | |LVSV Dopp: 87.12 ml | |LVOT Vmax: 0.97 m/s | |LVOT Vmean: 0.68 m/s | |LVOT VTI: 22.11 cm | |MV A [place]: 0.80 m/s | |MV Dec [place]: 2.88 m/s2 | |MV DecT: 315.34 ms | |MV E [place]: 0.90 m/s | |MV E/A Ratio: 1.12 | |MV PHT: 91.45 ms | |MVA By PHT: 2.40 cm2 | |Septal e': 0.08 m/s | |Septal E/e': 11.35 | |RAP: 5 mmHg | |RVSP: 18.14 mmHg | |TR maxP.14 mmHg | |TR Vmax: 1.81 m/s | | | |Fundraising Specialist: JUD | |Authenticated by: Donaldcelsa Jose Francisco | |Report Date/Time: 10-28-2017 12:48:42 | | | |IMPRESSION: | |1. The left ventricle is normal in size, wall thickness and systolic function EF 60-65%. | |2. The right ventricle is normal in size and function. | |3. Mild degenerative changes in the aortic and mitral vavles. | |4. There is no pericardial effusion. | + + + + + + + | Performing | Address | City/State/Zipcode | Phone Number | | Organization | | | | + + + + + | [facility] | [address] | [place] [address] | | + + + + + from Last 3 Months Insurance + +--------+ +------+-------+---------+ | Payer | Benefi | Subscriber | Type | Phone | Address | | | t Plan | ID | | | | | | / | | | | | | | Group | | | | | + +--------+ +------+-------+---------+ | [employer] | YELLOW | [id number] | | | | | PLANS | [place] | | | | | + +--------+ +------+-------+---------+ + +--------+ +--------+ + + | Guarantor Name | Accoun | Relation to | Date | Phone | Billing Address | | | t Type | Patient | of | | | | | | | | | | + +--------+ +--------+ + + | EBHZAD ESPINAL | Person | Self [birth year] | Home: | [address] | | | al/Fam | | 1955 | [phone] [place] | | | eryn | | | [phone] | + +--------+ +--------+ + +
--- OUTSIDE RECORDS SUMMARY | ~2017-11-08 | XMS | Clinical Summary ---
Demographics + + + | Address | [address] | | | [place] [address] | + + + | Home Phone | | + + + | Preferred Language | Unknown | + + + | Marital Status | Single | + + + | Oriental Orthodox Affiliation | Unknown | + + + | Race | Unknown | + + + | Ethnic Group | Unknown | + + + Author + + + | Author | [facility] | | | and [place] | + + + | Organization | [facility] | | | and [place] | + + + | Address | Unknown | + + + | Phone | Unavailable | + + + Support + + +---------+ + | Name | Relationship | Address | Phone | + + +---------+ + | Mary Medellin | ECON | Unknown | | + + +---------+ + Care Team Providers + +------+ + | Care Powder Monkey Name | Role | Phone | + +------+ + | Shakir Monzon DO | PP | | + +------+ + Allergies No Known Allergies Current Medications + + +-------+---------+------+------+-------+ | Prescription | Sig. | Disp. | Refills | Star | End | Statu | | | | | | t | Date | s | | | | | | Date | | | + + +-------+---------+------+------+-------+ | cholecalciferol | Take 5,000 Units by | | | | | Activ | | (VITAMIN D-3) 5000 | mouth Daily. | | | | | e | | units CAPS | | | | | | | [...] | | | + + +-------+---------+------+------+-------+ | ibuprofen | Take 600 mg by mouth | | | | | Activ | | (ADVIL,MOTRIN) 600 | every 6 hours as | | | | | e | | MG tablet | needed for Pain. | | | | | | + + +-------+---------+------+------+-------+ | ibuprofen (ADVIL, | Take 400 mg by mouth | | | | | Activ | | MOTRIN) 200 mg | every 6 hours as | | | | | e | | tablet | needed for Pain. | | | | | | + + +-------+---------+------+------+-------+ | aspirin 81 mg EC | Take 81 mg by mouth | | | | | Activ | | tablet | Daily. 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) | 07/24/2016 | + + + | Cirrhosis of [...] | 09/16/2015 | + + + Encounters +--------+ + + + + | Date | Type | Specialty | Care Team | Description | +--------+ + + + + | 10/21/ | Transcribed | | Clinton Morillo, | Shortness of breath | | 2018 | Orders | | MD | | +--------+ + + + + from Last 3 Months Family History + + +------+ + | Medical History | Relation | Name | Comments | + + +------+ + | No Known Problems | Brother | | | + + +------+ + | Cancer | Father | | | + + +------+ + | No Known Problems | Maternal | | | | | Grandfath | | | | | er | | | + + +------+ + | No Known Problems | Maternal | | | | | [...] | + + +------+ + | No Known Problems | Paternal | | | | | Grandfath | | | | | er | | | + + +------+ + | No Known Problems | Paternal | | | | | Grandmoth | | | | | er | | | + + +------+ + | No Known Problems | Sister | | | + + [...] + +---+---+---+ + + | Tobacco Cessation: Counseling Given: Yes | + + + + +---------+ + | Alcohol Use | Drinks/We | oz/Week | Comments | | | ek | | | + + +---------+ + | Yes | 0 | 0.0 | 3 beers in the past 4 months | | | Standard | | | | | drinks or | | [...] + + + | Blood Pressure | 127/58 | 08/03/201731 PDT | + + + + | Pulse | 63 | 08/03/201743 PDT | + + + + | Temperature | 36.9 C (98.4 F) | 08/03/2017131 PDT | + + + + | Respiratory Rate | 21 | 08/03/2017742 PDT | + + + + | Oxygen Saturation | 96% | 08/03/2017742 PDT | + + + + | Inhaled Oxygen | - | - | | Concentration | | | + + + + | Weight | 93.6 kg (206 lb 5.6 | 08/03/2017129 PDT | | | oz) | | + + + + | Height | 179.1 cm (5' 10.5") | 04/26/20171042 PDT | + + + + | Body Mass Index | 29.19 | 08/03/2017 0130 PDT | + + + + Plan of Treatment + + + + + | Health Maintenance | Due Date | Last Done | Comments | + + + + + | Diabetic Eye Exam | | | | | (Bi-Annually) | 4 | | | + + [...] | | | | Risk (1 of - | | | | | PPSV23) [...] + + | Colorectal Cancer | | 02/16/2012 | | | Screening | 3 | | | | (Colonoscopy) | | | | + + + + + | Hepatitis C | Completed | 08/03/2017, 04/27/2017, | | | Screening | | 04/26/2017, Additional history | | | | | [...] +---------+ | [place]ICAID [place] | MEDICA | [id number] | Medica | [phone] | | | [place] | | id | [phone] | | | | PLUS | | | | | + +--------+ +--------+ +---------+ | [facility] | IHS | [id number] | Indemn | | | | SERVICE [...] | Self [birth year] | Home: | [address] | | | al/Fam | | 1955 | [phone] | [place] [address] | | | eryn | | | [phone] | | + +--------+ +--------+ + +
--- OUTSIDE RECORDS SUMMARY | ~2017-11-08 | XMS | Encounter Summary ---
Demographics + + + | Address | [address] | | | [place] [address] | + + + | Home Phone [...] Author + + + | Author | [facility] | + + + | Organization | [facility] | + + + | Address | Unknown | + + + | Phone | Unavailable | + + + Support + + +---------+ + | Name | Relationship | Address | Phone | + + +---------+ + | CAMRON OCHOA | ECON | Unknown | | + + +---------+ + Care Team Providers + +------+ + | Care Scheduling Agent Name | Role | Phone | + +------+ + | Shakir Monzon MD | PCP | | + +------+ + Encounter Details +--------+ + + + + | Date | Type | Department | Care Team | Description | +--------+ + + + + | 09/14/ | Telephone | Trauma Emergency | Tra[facility] [address] | | | 2018 | | General Surgery at | [facility] | | | | | [address] | Road [place], [place] | | | | | [facility] [address] | [address] | | | | | Mailcode: [id number] | | | | | | Nikkie Mazariegos | | | | | | [address] [place], [place] | | | | | | [address] | | | | | | [phone] | | | +--------+ + + + [...] | 2018 | Visit | | [address] | | | | | | [address] | | | | | | [place], [place] | | | | | | [address] | | | | | | [phone] | | | | | | | | +--------+---------+ + + + + +--------+ + + | Name | Priori | Associated Diagnoses | Order Schedule | | | ty | | | + +--------+ + + | LIVER SET (AST,ALT,BILI | Routin | Cholangitis | Expected: 09/14/2017 | | TOTAL,BILI DIRECT,ALK | e | | (Approximate), | | PHOS,ALB,PROT TOTAL) | | | Expires: 10/15/2018 | + +--------+ + + as of this encounter Visit Diagnoses + + | Diagnosis | + + | Cholangitis - Primary | + +"
--- OUTSIDE RECORDS SUMMARY | ~2017-11-08 | XMS | Encounter Summary ---
Demographics + + + | Address | [address] | | | [place] [address] | + + + | Home Phone [...] Author | [facility] | + + + | Organization | [facility] | + + + | Address | Unknown | + + + | Phone | Unavailable | + + + Support + + +---------+ + | Name | Relationship | Address | Phone | + + +---------+ + | CAMRON OCHOA | ECON | Unknown | | + + +---------+ + Care Team Providers + +------+ + | Care Case Aide Name | Role | Phone | + +------+ + | Shakir Monzon MD | PCP | | + +------+ + Reason for Visit Consultation (Urgent) + +--------+ + + + + | Status | Reason | Specialty | Diagnoses / | Referred By | Referred To | | | | | Procedures | Contact | Contact | + +--------+ + + + + | Authorized | | Trauma Center | Diagnoses | Nicolás | Tra Trauma | | | | | | Shakir Fagan MD | Center [facility] | | | | | Cholel[place]ias | [place]onya | [address] | | | | | es | [place] | [facility] | | | | | | Health | Road | | | | | | Center | Mailcode: | | | | | | [address] | [address] | | | | | | [address] [facility] | | | | | | [address] | [address] | | | | | | [address], | [address] | | | | | | [place] [address] | [place], [place] | | | | | | Phone: | [address] | | | | | | [phone] | Phone: | | | | | | Fax: | [phone] | | | | | | [phone] | Fax: | | | | | | | [phone] | + +--------+ + + + + Encounter Details +--------+---------+ + + + | Date | Type | Department | Care Team | Description | +--------+---------+ + + + | 08/13/ | Office | Trauma Emergency | Dion Mac, | Gallbladder calculus | | 2018 | Visit | General Surgery at | MD [address] | with acute | | | | [address] [address] | [facility] [address] | cholecystitis and | | | | [facility] | [place], [place] | obstruction (Primary | | | | Mailcode: [address]A | [address] | Dx); Chronic | | | | [facility] | [phone] | hepatitis C without | | | | [address] [facility] [place] | | hepatic coma (HCC) | | | | [address] | | | | | | [phone] | | | +--------+---------+ + + + [...] + + + | Blood Pressure | 118/55 | 08/13/2017 1:56 PM PDT | + + + + | Pulse | 58 | 08/13/2017 1:56 PM PDT | + + + + | Temperature | 36.6 C (97.9 F) | 08/13/2017 1:56 PM PDT | + + + + | Respiratory Rate | 20 | 08/13/2017 1:56 PM PDT | + + + + | Oxygen Saturation | 97% | 08/13/2017 1:56 PM PDT | + + + + | Inhaled Oxygen | - | - | | Concentration | | | + + + + | Weight | 92.2 kg (203 lb 3.2 | 08/13/2017 1:56 PM PDT | | | oz) | | + + + + | Height | 179.1 cm (5' 10.5") | 08/13/2017 1:56 PM PDT | + + + + | Body Mass Index | 28.74 | 08/13/2017 1:56 PM PDT | + + + + in [...] + as of this encounter Progress Notes Dion Mac MD - 08/13/2017 2:30 PM PDT08/13/2017 Bret Teddy Berrios presents 10 days after presentation for ruptured gallbladder. He had a ch olecystostomy tube placed at the time. Has been home for about a week, draining approximatel y 60 mL per day. No fevers. His appetite is about 50% of normal. He reports that BMs are nor mal. Pain is getting better. Feels like his strength is getting slowly better. Nearly finish ed his course of antibiotics. Physical exam: BP 118/55 | Pulse 58 | Temp (Src) 36.6 C (97.9 F) (Oral) | RR 20 | Ht 1.791 m (5' 10.5" ) | Wt 92.2 kg (203 lb 3.2 oz) | SpO2 97% | BMI 28.74 kg/(m^2) General appearance: healthy, alert and cooperative Lungs: CTA bilateral Cardiac: regular rate, rhythm Abdomen: soft, nontender, nondistended Incision: none : Not evaluated Extremities: WWP CT today shows near complete resolution of perihilar fluid collection per my read. Assessment/Plan: s/p ruptured GB, s/p tube placement. He has cirrhosis and congestive hepat opathy, poor surgical candidate, however will likely need his GB removed. He will follow up in 4 weeks to discuss operation. I refilled oxycodone #30. Drain to remain. Will complete th is course of antibiotics and not resume. Dion Mac MD, FACS [employer] Coremaker, Trauma, Critical Care and Acute Care Surgery in this encounter Plan of Treatment +--------+---------+ + + + | Date | Type | Specialty | Care Team | Description | +--------+---------+ + + + | 02/01/ | Office | Cardiology | Michelle Gan MD | | | 2017 | Visit | | [address] [facility] | | | | | | [facility] | | | | | | [place], [place] | | | | | | [address] | | | | | | [phone] | | | | | | | | +--------+---------+ + + + as of this encounter Visit Diagnoses + + | Diagnosis | + + | Gallbladder calculus with acute cholecystitis and obstruction - Primary | + + | Calculus of gallbladder with acute cholecystitis and obstruction | + + | Chronic hepatitis C without hepatic coma (HCC) | + +
--- OUTSIDE RECORDS SUMMARY | ~2017-11-08 | XMS | Encounter Summary ---
Demographics + + + | Address | [address] | | | [place] [address] | + + + | Home Phone [...] + + + | Author | [facility] [employer] [facility] | + + + | Organization | [facility] [employer] [facility] | + + + | Address | Unknown | + + + | Phone | Unavailable | + + + Support + + +---------+ + | Name | Relationship | Address | Phone | + + +---------+ + | CAMRON OCHOA | ECON | Unknown | | + + +---------+ + Care Team Providers + +------+ + | Care Periodontal Assistant Name | Role | Phone | [...] | | | | | es | [place] | [facility] | | | | | | Health | Road | | | | | | Center | Mailcode: | | | | | | [address] | [id number] | | | | | | [facility] | [facility] | | | | | | Way | [address] | | | | | | [address], | [address] | | | | | | [place] [address] | [place], [place] | | | | | | Phone: | [phone] | | | | | | [phone] | Phone: | | | | | | Fax: | [phone] | | | | | | [phone] | Fax: | | | | | | | [phone] | + +--------+ + + + + [...] | [address] | [facility] [address] | cholecystitis and | | | | [facility] | [place], [place] | obstruction (Primary | | | | Mailcode: [address]A | [phone] | Dx); Chronic | | | | [facility] | [phone] | hepatitis C without | | | | [address] [facility] [place] | | hepatic coma (HCC) | | | | [address] | | | | | | [phone] | | | +--------+---------+ + + + [...] and not resume. Dion Mac MD, FACS Slag Worker, Trauma, Critical Care and Acute Care Surgery in this encounter Plan of Treatment +--------+---------+ + + + | Date | Type | Specialty | Care Team | Description | +--------+---------+ + + + | 02/01/ | Office | Cardiology | Michelle Gan MD | | | 2017 | Visit | | [address] [facility] | | | | | | [facility] | | | | | | [place], [place] | | | | | | [address] | | | | | | [phone] | | | | | | | [...]
--- OUTSIDE RECORDS SUMMARY | ~2017-11-08 | XMS | Clinical Summary ---
Demographics + + + | Address | [address] | | | [place] [address] | + + + | Home Phone | | + + + | Preferred Language | Unknown | + + + | Marital Status | Single | + + + | Oriental Orthodox Affiliation | NRP | + + [...] Providers + +------+ + | Care Senior Controls Engineer Name | Role | Phone | + +------+ + | Shakir Monzon MD | PP | | + +------+ + Source Comments LINDA is fully live on both EpicCare Ambulatory and EpicCare InPatient.[facility] Allergies + + + + + [...] | | | + + +--------+---------+------+------+-------+ | rifAXIMin 550 mg | Take 550 mg by mouth | | | | | Activ | | oral tablet | two times daily. | | | | | e | + + +--------+---------+------+------+-------+ | Cholecalciferol | Take 5,000 Units by | | | | | Activ | | (Vitamin D3) 5,000 | mouth once daily. | | | | | e | | unit oral capsule | | | | | | | + + +--------+---------+------+------+-------+ | omeprazole 40 mg | Take 40 [...] + +--------+---------+------+------+-------+ | insulin aspart | Inject three times | | | | | Activ | | U-100 (NOVOLOG | daily per sliding | | | | | e | | FLEXPEN U-100 | scale before meals. | | | | | | | INSULIN) 100 unit/mL | If CBGs >150: no | | | | | | | subcutaneous | insulin; 150-200: 5 | | | | | | | insulin pen | units; >201 10 units | | | | | | + + +--------+---------+------+------+-------+ | losartan 25 mg | Take 25 mg by mouth | | | | | Activ | | oral tablet | once daily. | | | | | e | + + +--------+---------+------+------+-------+ | acyclovir 5 % | Apply to affected | | | | | Activ | | topical ointment | area five times | | | | | e | | | daily. PRN for | | | | | | | | outbreaks | | | | | | + + +--------+---------+------+------+-------+ | acyclovir 800 mg | Take 800 mg by mouth | | | | | Activ | | oral tablet | five times daily. | | | | | e | | | PRN for outbreaks | | | | | | + + +--------+---------+------+------+-------+ | LANTUS SOLOSTAR | Inject 60-80 Units [...] | | | + + +--------+---------+------+------+-------+ | oxyCODONE | Take 1 to 2 tablets | 30 | 0 | 06/2 | | Activ | | (immediate release) | by mouth every four | tablet | | 9/20 | | e | | 5 mg oral tablet | hours as needed for | | | 18 | | | | | moderate pain. | | | | | | + + +--------+---------+------+------+-------+ | lactulose 10 | Take 30 mL by mouth | | | | | Activ | | gram/15 mL oral | three times daily. | | | | | e | | solution | | | | | | | + + +--------+---------+------+------+-------+ | acetaminophen 500 | Take 1,000 mg by | | | | | Activ | | mg oral tablet | mouth every six | | | | | e | | | hours as needed. | | | | | | + + +--------+---------+------+------+-------+ | nitroglycerin 0.4 | Place 1 tablet under | 25 | | / | | Activ | | mg sublingual [...] + + +--------+---------+------+------+-------+ | metoprolol | Take 1 tablet by | | | 10/16 | | Activ | | tartrate 25 mg oral | mouth two times | | | 09/03 | | e | | tablet | daily. | | | 18 | | | + + +--------+---------+------+------+-------+ | isosorbide | Take 1 tablet by | 30 | 2 | 10/16 | | Activ | | mononitrate CR 30 mg | mouth once daily. 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 | | | | | | | + + +--------+---------+------+------+-------+ Active [...] | +--------+ + + + + | 11/08/ | Intake | | | N/A | | 2018 | | | | | +--------+ + + + + | 11/03/ | Office | | Bessy Solano, | Cirrhosis of liver | | 2017 | Visit | | PA-C | without ascites, | | | | | | unspecified hepatic | | | | | | cirrhosis type (HCC) | | | | | | (Primary Dx); | | | | | | Gallbladder | | | | | | perforation | +--------+ + + + + | 11/01/ | Office | | Sharon Sanderson | Dyspnea, unspecified | | 2018 | Visit | | NEVA Short-C | type (Primary Dx); | | | | | | 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 | | | | | | artery, angina | | | | | | presence | | | | | | unspecified, | | | | | | unspecified whether | | | | | | habematolel or | | | | | | transplanted heart; | | | | | | Essential | | | | | | hypertension; | | | | | | Pre-operative | | | | | | cardiovascular | | | | | | examination | +--------+ + + + + | 11/01/ | Abstract | | Sharon Sanderson | | | 2017 | | | SHENA Short | | +--------+ + + + + | 10/21/ | Telephone | | [place] Morillo, | Question | | 2017 | | | MD | | +--------+ + + + + | 10/15/ | Abstract | | Unknown | Car Gen Record | | 2017 | | | | Review (GEN | | | | | | Checklist ) | +--------+ + + + + | 10/13/ | Office | | [place] Morillo, | Shortness of breath | | 2017 | Visit | | MD | (Primary Dx); | | | | | | Hepatic cirrhosis, | | | | | | unspecified hepatic | | | | | | cirrhosis type, | | | | | | unspecified whether | | | | | | ascites present | | | | | | (HCC) | +--------+ + + + + | 10/13/ | Lab | | | Cirrhosis of liver | | 2017 | | | | without ascites, | | | | | | unspecified hepatic | | | | | | cirrhosis type (HCC) | +--------+ + + + + | 09/30/ | Telephone | | Moustapha Schafer MD | | | 2017 | | | | | +--------+ + + + + | 09/24/ | Hospital | | Moustapha Schafer MD | | | 2017 | Encounter | | | | +--------+ + + + + | 09/14/ | Telephone | | Veronique Baugh Ppv | | | 2017 | | | | | +--------+ + + + + | 09/10/ | Office | | Moustapha Schafer MD | Cholangitis (Primary | 2017 | Visit | | | Dx) | +--------+ + + + + | 09/10/ | Procedure | | | | | 2017 | Pass | | | | +--------+ + + + + | 08/13/ | Office | | Dion Mac, | Gallbladder calculus | | 2017 | Visit | | MD | with acute | | | | | | cholecystitis and | | | | | | obstruction (Primary | | | | | | Dx); Chronic | | | | | | hepatitis C without | | | | | | hepatic coma (HCC) | +--------+ + + + + | 08/13/ | Hospital | | Jessika Allen, | | | 2018 | Encounter | | MD | | +--------+ + + + + | 08/09/ | Abstract | | Bessy Solano, | Medical Records | | 2017 | | | PA-C | Review | +--------+ + + + + | 08/07/ | Procedure | | | | | 2018 | Pass | | | | +--------+ [...] Pressure | 122/68 | 11/03/2017 2:38 PM PDT | + + + + | Pulse | 59 | 11/03/2017 2:38 PM PDT | + + + + | Temperature | 36.8 C (98.2 F) | 11/01/2017 9:02 AM PDT | + + + + | Respiratory Rate | 18 | 11/03/2017 2:38 PM PDT | + + + + | Oxygen Saturation | 99% | 11/03/2017 2:38 PM PDT | + + + + | Inhaled Oxygen | - | - | | Concentration | | | + + + + | Weight | 95.7 kg (211 lb) | 11/03/2017 2:38 PM PDT | + + + + | Height | 180.3 cm (5' 11") | 11/01/2017 9:02 AM PDT | + + + + | Body Mass Index | 29.43 | 11/03/2017 2:38 PM PDT | + + + + Plan of Treatment +--------+---------+ + + + | Date | Type | Specialty | Care Team | Description | +--------+---------+ + + + | 02/01/ | Office | | Michelle Gan MD | | | 2018 | Visit | | [address] [facility] | | | | | | [address] | | | | | | [place], [place] | | | | | | [address] | | | | | | [phone] | | | | | | | | +--------+---------+ + + + + + + + + | Health Maintenance | Due Date | Last Done | Comments | + + + + + | INFLUENZA VACCINE | | 12/01/2016, 12/08/2012 | | | (FLU SHOT) | 8 | | | + + [...] | 12 LEAD ECG | Routin | 11/01/2017 | Dyspnea, | Results for this | | | e | 9:43 AM | unspecified type | procedure are in the | | [...] + +--------+ + + + | MRI CHOLANGIOGRAPHY | Routin | 09/24/2017 | Cholangitis | Results for this | | WWO CONTRAST (+ | e | 3:01 PM | | procedure are in the | | LIVER MASS) | | PDT | | results section. | + +--------+ + + + | CREATININE, POC | Routin | 09/24/2017 | Cholangitis | Results for this | | | e | 1:44 PM | | procedure are in the [...] + + from Last 3 Months Results 12 LEAD ECG (11/01/2017 9:43 AM) + + + + + | Component | Value | Ref Range | Performed At | + + + + + | VENTRICULAR RATE | 74 | bpm | [facility] | | | | | [facility] | + + + + + | ATRIAL RATE | 74 | ms | [facility] | | | | | [facility] | + + + + + | P-R INTERVAL | 188 | ms | [facility] | | | | | [facility] | + + + + + | P AXIS | 26 | deg | [facility] | | | | | [facility] | + + + + + | QRS DURATION | 85 | ms | [facility] | | | | | [facility] | + + + + + | QT | 394 | ms | [facility] | | | | | [facility]ARDIOLOG[facility] | + + + + + | QTCB | 437 | ms | [facility] | | | | | [facility]OLOG[facility] | + + + + + | R AXIS | -67 | deg | [facility] | | | | | [facility]ARDIOLOG[facility] | + + + + + | T AXIS | -10 | deg | [facility] | | | | | [facility]ARDIOLOGY | + + + + + | ECG IMPRESSION | Sinus rhythm | | [facility] | | | | | CARDIOLOGY | + + + + + | ECG IMPRESSION | Inferior infarct, old- | | [facility] | | | ABNORMAL ECG - | | CARDIOLOGY | + + + + + | ECG IMPRESSION | Electronically signed | | [facility] | | | by: BHAVANI PATEL | | CARDIOLOGY | | | 11-01-2017 11:10:27 | | | + + + + + + + + | Narrative | Performed At | + + + | | | + + + + + + + + | Performing | Address | City/State/Zipcode | Phone Number | | Organization | | | | + + + + + | [facility] | [address] | [place], [place] | | | CARDIOLOGY | [address] | [address] | | + + + + + CBC (HEMOGRAM) ONLY (10/13/2017 9:49 AM) + + + + + | Component | Value | Ref Range | Performed At | + + + + + | WHITE CELL COUNT | 6.70 | 3.50 - 10.80 K/cu mm | [facility] | | [...] 92.0 | 80.0 - 100.0 fL | [facility] | | | | | SERVICES, CORE | + + + + + | MCHC | 34.6 | 32.0 - 36.0 g/dL | [facility] | | | | | SERVICES, CORE | + + + + + | RDW SD | 46.9 (H) | 35.1 - 46.3 fL | [facility] | | | | | SERVICES, CORE | + + + + + | PLATELET COUNT | 78 (L)Comment: | 150 - 400 K/cu mm | [facility] | | | Macroplatelets present. | | SERVICES, CORE | + + + + + | MPV | 11.7 | 9.7 - 12.3 fL | [facility] | | | | [...] + + | [facility] | [address] | [place] [address] | | | SERVICES, CORE | [address] | | | + + + + + INR (10/13/2017 9:49 AM) + +-------+ + + | Component | Value | Ref Range | Performed At | + +-------+ + + | INR | 1.11 | 0.90 - 1.20 INR | [facility] | | | | | [...] [facility] | [address] | [place] [address] | | | [address] | [address] | | | + [...] >60 mL/min | [facility] | | MALIAN | | | SERVICES, CORE | + +---------+ + + | EGFR NON | >60 | >60 mL/min | [facility] | | -MALIAN | | | SERVICES, CORE | + [...] | | (LAB) | | | SERVICES, [facility] | + +---------+ + + | TOTAL CO2, PLASMA | 22 | 21 - 32 mmol/L | [facility] | | (LAB) | | | SERVICES, [facility] | + +---------+ + + | CALCIUM, PLASMA | 8.7 | 8.6 - 10.2 mg/dL | [facility] | | (LAB) | | | SERVICES, CORE | + +---------+ + + | CALCIUM(ALB | 9.7 | 8.6 - 10.2 mg/dL | [facility] | | CORRECTED) | | | [facility], [facility] | + +---------+ + + | BILIRUBIN [...] CORE | + +---------+ + + | DAVIDI Darryl CMNT | No Hemo | | [facility] [...] + | [facility] | [address] | [place] [address] | | | SERVICES, CORE | [address] [...] | + + + + + | [facility] | [address] | [place] [address] | | | SERVICES, CORE | [address] | | | + + + + + MRI CHOLANGIOGRAPHY WWO CONTRAST (+ LIVER MASS) (09/24/2017 3:01 PM) + + + | Narrative | Performed At | + + + | EXAM: Abdomen MRI/MRCP without and with intravenous contrast. | [facility] | | HISTORY: 62-year-old man with decompensated HCV/EtOH cirrhosis status | RADIOLOGY VOICE | | post cholecystostomy for perforated gallbladder. Angel hepatis fluid | RECOGNITION 2 | | collection causing extrinsic compression of the common hepatic duct. | | | COMPARISON: 08/13/2017 CT, 08/05/2017 MR | | | TECHNIQUE: Multiplanar MRI of the abdomen was performed without and | | | with gadolinium based intravenous contrast. FINDINGS: LIVER: | | | Nodular cirrhotic liver with sequelae of portal hypertension, | | | including a large pararenal shunt. BILIARY: The gallbladder is | | | decompressed around a cholecystostomy tube, with residual gallstones. | | | The previously noted fluid collections adjacent to the gallbladder | | | have resolved. In the region of the previously noted hilar abscess, | | | there is a persistent inflammatory mass measuring approximately 3.2 x | | | 3.4 cm (1003/302), as well as two residual hilar fluid collections | | | measuring approximately 2.1 x 1.3 cm (701/25) and 1.3 x 0.7 cm | | | (701/23). These cause persistent partial encasement of the upper | | | common bile duct and resulting biliary stricture, as previous noted. | | | There is moderate intrahepatic ductal dilatation upstream from this | | | area, which is unchanged compared to 08/05/2017 MRCP. No abnormal | | | ductal enhancement. No evidence of choledocholithiasis. There is | | | variant biliary anatomy with low insertion of the common bile duct. No | | | evidence of Mirizzi syndrome. PANCREAS: Unremarkable. SPLEEN: | | | Moderately enlarged. Splenorenal shunt. ADRENALS: Unremarkable. | | | KIDNEYS: Unremarkable. GI TRACT: Visualized portions are | | | unremarkable. PERITONEUM: No free air or fluid. LYMPH NODES: No | | | lymphadenopathy. VESSELS: Unremarkable. BONES AND SOFT TISSUES: | | | Unremarkable. IMPRESSION: 1. Persistent inflammatory mass and | | | two small residual hilar abscesses at the site of the previously seen | | | large hilar abscess, with persistent upper common bile duct stricture | | | and upstream intrahepatic biliary duct dilatation. 2. Decompressed | | | gallbladder and resolved fluid collections along the fundus and body | | | status post cholecystostomy. I have personally reviewed the images | | | and, if necessary, edited the report. I agree with the report as now | | | presented. Final signature: Mookie Bartlett MD 09/27/2017 9:09 | | | AM Preliminary: Petar Albright MD 09/24/2017 5:31 PM Dictation | | | initiated: Petar Albrihgt MD 09/24/2017 3:13 PM | | + + + + + | Procedure Note | + + | Service Account, Radiant Res In Interface - 09/27/2017 9:10 AM PDT EXAM: Abdomen | | MRI/MRCP without and with intravenous contrast. HISTORY: 62-year-old man with | | decompensated HCV/EtOH cirrhosis status post cholecystostomy for perforated gallbladder. | | Angel hepatis fluid collection causing extrinsic compression of the common hepatic | | duct. COMPARISON: 08/13/2017 CT, 08/05/2017 MR TECHNIQUE: Multiplanar MRI of the abdomen | | was performed without and with gadolinium based intravenous contrast. FINDINGS: LIVER: | | Nodular cirrhotic liver with sequelae of portal hypertension, including a large | | pararenal shunt. BILIARY: The gallbladder is decompressed around a cholecystostomy tube, | | with residual gallstones. The previously noted fluid collections adjacent to the | | gallbladder have resolved. In the region of the previously noted hilar abscess, there is | | a persistent inflammatory mass measuring approximately 3.2 x 3.4 cm (1003/302), as well | | as two residual hilar fluid collections measuring approximately 2.1 x 1.3 cm (701/25) | | and 1.3 x 0.7 cm (701/23). These cause persistent partial encasement of the upper common | | bile duct and resulting biliary stricture, as previous noted. There is moderate | | intrahepatic ductal dilatation upstream from this area, which is unchanged compared to | | 08/05/2017 MRCP. No abnormal ductal enhancement. No evidence of choledocholithiasis. | | There is variant biliary anatomy with low insertion of the common bile duct. No evidence | | of Mirizzi syndrome. PANCREAS: Unremarkable. SPLEEN: Moderately enlarged. Splenorenal | | shunt.ADRENALS: Unremarkable.KIDNEYS: Unremarkable.GI TRACT: Visualized portions are | | unremarkable.PERITONEUM: No free air or fluid. LYMPH NODES: No lymphadenopathy.VESSELS: | | Unremarkable. BONES AND SOFT TISSUES: Unremarkable. IMPRESSION: 1. Persistent | | inflammatory mass and two small residual hilar abscesses at the site of the previously | | seen large hilar abscess, with persistent upper common bile duct stricture and upstream | | intrahepatic biliary duct dilatation. 2. Decompressed gallbladder and resolved fluid | | collections along the fundus and body status post cholecystostomy. I have personally | | reviewed the images and, if necessary, edited the report. I agree with the report as now | | presented. Final signature: Mookie Bartlett MD 09/27/2017 9:09 AM Preliminary: Petar | | Wendi Albright MD 09/24/2017 5:31 PM Dictation initiated: Petar Albright MD 09/24/2017 3:13 PM | |BONES AND SOFT TISSUES: Unremarkable. | | | |IMPRESSION: | | | |1. Persistent inflammatory mass and two small residual hilar abscesses at the site of the p reviously seen large hilar abscess, with persistent upper common bile duct stricture and ups tream intrahepatic biliary duct dilatation. | | | |2. Decompressed gallbladder and resolved fluid collections along the fundus and body status post cholecystostomy. | | | |I have personally reviewed the images and, if necessary, edited the report. I agree with th e report as now presented. | | | |Final signature: Mookie Bartlett MD 09/27/2017 9:09 AM | |Preliminary: Petar Albright MD 09/24/2017 5:31 PM | |Dictation initiated: Petar Albright MD 09/24/2017 3:13 PM | + + + +---------+ + + | Performing | Address | City/State/Zipcode | Phone Number | | Organization | | | | + +---------+ + + | [facility] | | | | | VOICE RECOGNITION 2 | | | | + +---------+ + + BE HERNANDEZ (09/24/2017 1:44 PM) + +-------+ + + | Component | Value | Ref Range | Performed At | + +-------+ + + | CREATININE, POC | 0.7 | 0.7 - 1.3 mg/dL | [facility] | | | | | [facility] | | | | | CARE TESTS | + +-------+ + + + + | Specimen | + + | Blood - Blood | + + + + + + + | Performing | Address | City/State/Zipcode | Phone Number | | Organization | | | | + + + + + | [facility] | [address] | [place], [place] | | | [facility] | [address] | [address] | | | TESTS | | | | + + + + + CT ABDOMEN AND PELVIS W IV CONTRAST [...] | | | + +---------+ + + from Last 3 Months Insurance [...] | [employer] | [phone] [address] [address] | | | PLUS | | id | [phone] | [place] [address] | | | OPEN | | | | | | | CARD | | | | | + +--------+ +--------+ + + | [facility] | [facility] | [phone] | Agency | | | [...] | Self | [birth year] | Home: | [address] | | | al/Fam | | [phone] | [phone] [place] [address] | | | eryn | | | [phone] | | + +--------+ +--------+ + +
--- OUTSIDE RECORDS SUMMARY | ~2017-11-08 | XMS | Encounter Summary ---
Demographics + + + | Address | [address] | | | [place] [address] | + + + | Home Phone [...] + + | Author | [facility] | + + + | Organization | [facility] | + [...] Team Providers + +------+ + | Care Electronic Train Control Technician Name | Role | Phone | [...] | | cirrhosis, | MD Elle | [facility] [address] | | | | | unspecified | [address] | [address] | | | | | hepatic | [place] | Mailcode: | | | | | cirrhosis | [address] | [facility] | | | | | type, | [place], [place] | for Health | | | | | unspecified | [address] | and Healing, | | | | | whether | Phone: | 6th Floor | | | | | ascites | [phone] | [place], [place] | | | | | present | Fax: | [address] | | | | | (HCC) | [phone] | Phone: | | | | | Procedures | | [phone] | | | | | CONSULT TO | | Fax: | | | | | HEPATOLOGY | | [phone] | +--------+--------+ + + + + Encounter Details +--------+---------+ + + + | Date | Type | Department | Care Team | Description | +--------+---------+ + + + | 11/03/ | Office | Digestive Health | Marc Solano, | Cirrhosis of liver | | 2018 | Visit | Center at [facility] 6th | PA-C [address] | without ascites, | | | | Floor [address] | [address] | unspecified hepatic | | | | [place] Mailcode: [facility] | [place], [place] | cirrhosis type (HCC) | | | | [place] for [facility] | [address] | (Primary Dx); | | | | and Healing, 6th | [phone] | Gallbladder | | | | Floor [facility] [place] | | perforation | | | | [address] | | | | | | [phone] | | | +--------+---------+ + + + [...] | Temperature | - | - | + + + + | Respiratory [...] | Height | - | - | + + + + | Body [...] + as of this encounter Progress Notes Paul Rice MD - 11/03/2017 2:20 PM PDTHEPATOLOGY ATTENDING Note reviewed. Paul Rice MD, MS, JACK management architect Director of Clinical Hepatology [facility] Division of Gastroenterology/Hepatology Marc Solano PA-C - 11/03/2017 2:20 PM PDTFormatting of this note may be different fro m the original. Hepatology Clinic Note 11/03/2017 PCP: Shakir Monzon [...] and is currently bein g evaluated by [facility]// Ilia's team for cholecystectomy He has recently [...] ~2015 per patient 5. 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 MARC SOLAON PA-C [facility] AT [facility] 6TH FLOOR [address] Mailcode: [place] [address] in this encounter Plan of Treatment +--------+---------+ + + + | Date | Type | Specialty | Care Team | Description | +--------+---------+ + + + | 02/01/ | Office | Cardiology | Michelle Gan MD | | | 2018 | Visit | | [address] [facility] | | | | | | [address] | | | | | | [place], [place] | | | | | | [address] | | | | | | [phone] | | | | | | | | +--------+---------+ + + + as of this encounter Visit Diagnoses + + | Diagnosis | + + | Cirrhosis of liver without ascites, unspecified hepatic cirrhosis type (HCC) - Primary | + + | Gallbladder perforation | + + | Perforation of gallbladder | + +"
--- OUTSIDE RECORDS SUMMARY | ~2017-11-08 | XMS | Encounter Summary ---
Demographics + + + | Address | [address] | | | [place] [address] | + + + | Home Phone [...] + + | Author | [facility] | + + + | Organization | [facility] | + + + | Address | Unknown | + + + | Phone | Unavailable | + + + Support + + +---------+ + | Name | Relationship | Address | Phone | + + +---------+ + | CAMRON OCHOA | ECON | Unknown | | + + +---------+ + Care Team Providers + +------+ + | Care Draw Frame Operator Name | Role | Phone | + +------+ + | Shakir Monzon MD | PCP | | + +------+ + Encounter Details +--------+ + + + + | Date | Type | Department | Care Team | Description | +--------+ + + + + | 08/07/ | Procedure | Diagnostic Imaging | | | | 2018 | Pass | Services at [facility] | | | | | | [address] | | | | | | [facility] | | | | | | Mailcode: [address] [facility] | | | | | | [facility], | | | | | | [place] [address] | | | | | | [phone] | | | +--------+ + + + [...] | Visit | | [address] [facility] | | | | | | [address] | | | | | | [place], [place] | | | | | | [address] | | | | | | [phone] | | | | | | | | +--------+---------+ + + + as of this encounter Visit Diagnoses Not on filein this encounter"
--- OUTSIDE RECORDS SUMMARY | ~2017-11-08 | XMS | Encounter Summary ---
Demographics + + + | Address | [address] | | | [place] [address] | + + + | Home Phone | | + + + | Preferred Language | Unknown | + + + | Marital Status | Single | + + + | Baptist Affiliation | Unknown | + + + | Race | Unknown | + + + | Ethnic Group | Unknown | + + + Author + + + | Author | [facility] | | | and Calana | + + + | Organization | [facility] | | | and [place] | [...] Team Providers + +------+ + | Care Methane Gas Collection System Operator Name | Role | Phone | + +------+ + | Shakir Monzon DO | PCP | | + +------+ + Reason for Referral Diagnostic/Screening (Routine) + +--------+ + + + + | Status | Reason | Specialty | Diagnoses / | Referred By | Referred To | | | | | Procedures | Contact | Contact | + +--------+ + + + + | Pending | | Radiology | Diagnoses | Ilia | [facility] | | Review | | | Shortness | Clinton Srinivasan MD | [address] | | | | | of breath | [address] | [place] | | | | | Procedures | [address] | | | | | ECHO | [address] | [address] | | | | | Complete [place] | [place], [place] | Phone: | | | | | ECHO HEART | [address] | [phone] | | | | | [place] | Phone: | Fax: | | | | | MPLETE W | [phone] | [phone] | | | | | DOPPLER [place] | Fax: | | | | | | ECHO HEART | [phone] | | | | | | [place] | | | | | | | MPLETE, W/O | | | | | | | DOPPLER | | | | | | | 11/02> TBS> | | | | | | | AT ST | | | | | | | [place] | | | | | | | JULIET? | | | + +--------+ + + + + Encounter Details +--------+ + + + + | Date | Type | Department | Care Team | Description | +--------+ + + + + | 10/21/ | Transcribed | [facility] | Clinton Morillo, | Shortness of breath | | 2018 | Orders | CARDIOLOGY [address] | [address] | | | | | [place], | [address] | | | | | [place] [address] | [place], [place] | | | | | [phone] | [address] | | | | | | [phone] | | | | | | | [...] as of this encounter Plan of Treatment + +--------+ + + | Name | Priori | Associated Diagnoses | Order Schedule | | | ty | | | + +--------+ + + | ECHO Complete | Routin | Shortness of | Expected: | | | e | breath | 10/21/2017, Expires: | | | | | 10/21/2018 | + +--------+ + + as of this encounter Visit Diagnoses + + | Diagnosis | + + | Shortness of breath | + +"
--- OUTSIDE RECORDS SUMMARY | ~2017-11-08 | XMS | Encounter Summary ---
Demographics + + + | Address | [address] | | | [place] [address] | + + + | Home Phone [...] + + | Author | [facility] | + + + | Organization | [facility] | + + + | Address | Unknown | + + + | Phone | Unavailable | + + + Support + + +---------+ + | Name | Relationship | Address | Phone | + + +---------+ + | CAMRON OCHOA | ECON | Unknown | | + + +---------+ + Care Team Providers + +------+ + | Care Elementary Substitute Teacher Name | Role | Phone | [...] | | | | | unspecified | [address] | and Healing, | | | | | whether | Phone: | 6th Floor | | | | | ascites | [phone] | [place], [place] | | | | | present | Fax: | [phone] | | | | | (HCC) | [phone] | Phone: | | | | | Procedures | | [phone] | | | | | CONSULT TO | | Fax: | | | | | HEPATOLOGY | | [phone] | +--------+--------+ + + + + Encounter Details +--------+---------+ + + + | Date | Type | Department | Care Team | Description | +--------+---------+ + + + | 11/03/ | Office | Digestive Health | Marc Solano, | Cirrhosis of liver | | 2018 | Visit | Center at [facility] 6th | PA-C [address] | without ascites, | | | | Floor [address] | [address] | unspecified hepatic | | | | [place] Mailcode: CH6D | [place], [place] | cirrhosis type (HCC) | | | | [place] for [facility] | [address] | (Primary Dx); | | | | and Healing, 6th | [phone] | Gallbladder | | | | Floor [facility] [place] | | perforation | | | | [address] | | | | | | [phone] | | | +--------+---------+ + + + [...] Note reviewed. Paul Rice MD, MS, JACK porcelain buildup assistant Director of Clinical Hepatology [facility] Division of Gastroenterology/Hepatology Marc Solano [...] and is currently bein g evaluated by [facility]// Ilia's team for cholecystectomy He [...] ~2015 per patient 5. 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 MARC SOLANO PA-C DIGESTIVE [facility] 6TH FLOOR [address] Mailcode: [place] [address] in this encounter Plan of Treatment +--------+---------+ + + + | Date | Type | Specialty | Care Team | Description | +--------+---------+ + + + | 02/01/ | Office | Cardiology | Michelle Gan MD | | | 2018 | Visit | | [address] [facility] | | | | | | [address] | | | | | | [place], [place] | | | | | | [address] | | | | | | [phone] | | | | | | | | +--------+---------+ + + + as of this encounter Visit Diagnoses + + | Diagnosis | + + | Cirrhosis of liver without ascites, unspecified hepatic cirrhosis type (HCC) - Primary | + + | Gallbladder perforation | + + | Perforation of gallbladder | + +"
--- OUTSIDE RECORDS SUMMARY | ~2017-11-08 | XMS | Encounter Summary ---
Demographics + + + | Address | [address] | | | [place] [address] | + + + | Home Phone [...] + | Author | [facility] | + + + | Organization | [facility] | + + + | Address | Unknown | + + + | Phone | Unavailable | + + + Support + + +---------+ + | Name | Relationship | Address | Phone | + + +---------+ + | CAMRON OCHOA | ECON | Unknown | | + + +---------+ + Care Team Providers + +------+ + | Care Plastic Press Operator Name | Role | Phone | [...] | | 2018 | | Center at [facility] 6th | PA-C [address] | Review | | | | Floor [address] | [address] | | | | | [place] Mailcode: CH6D | [place], [place] | | | | | [facility] | [address] | | | | | and Healing, 6th | [phone] | | | | | Floor [place], [place] | | | | | | [address] | | | | | | [phone] | | | +--------+ + + + [...] | 2018 | Visit | | [address] | | | | | | [address] | | | | | | [place] | | | | | | [address] | | | | | | [phone] | | | | | | | | +--------+---------+ + + + as of this encounter Visit Diagnoses Not on filein this encounter"
--- OUTSIDE RECORDS SUMMARY | ~2017-11-08 | XMS | Clinical Summary ---
Demographics + + + | Address | [address] | | | [place] [address] | + + + | Home Phone | | + + + | Preferred Language | Unknown | + + + | Marital Status | Unknown | + + + | Denominational Affiliation | Unknown | + + + | Race | Unknown | + + + | Ethnic Group | Unknown | + + + Author + + + | Author | [facility] | + + + | Organization | [facility] | + + + | Address | Unknown | + + + | Phone | Unavailable | + + + Support + + +---------+ + | Name | Relationship | Address | Phone | + + +---------+ + | No,Contact | ECON | Unknown | | + + +---------+ + Care Team Providers + +------+ + | Care Mechanical Estimator Name | Role | Phone | + [...] whether | | | | | | [place] or | | | | | | [...] whether | | | | | | [place] or | | | | | | [...] whether | | | | | | [place] or | | | | | | [...] 0.80 m/s | | | MV Dec [place]: 2.88 m/s2 MV DecT: 315.34 ms MV E Jordan: | | | 0.90 m/s MV E/A Ratio: 1.12 MV PHT: 91.45 ms MVA By | | | PHT: 2.40 cm2 Septal e': 0.08 m/s Septal E/e': 11.35 | | | RAP: 5 mmHg RVSP: 18.14 mmHg TR maxP.14 mmHg TR | | | Vmax: 1.81 m/s Apprentice Painter Brush: JUD Authenticated by: Ayana | | | [facility] Report Date/Time: 10-28-2017 12:48:42 | | + + + + + | Procedure Note | + + | Harjit, Rad Results In - 10/28/2017 12:51 PM PDT Patient Name: Kenyon Espinal of | | : 1955ccession: [id number] Physician: Ayana | | [facility] INDICATIONS------ | | -----CADCONCLUSIONS 1. The [...] | | cmLVPWd: 0.85 cmLVOT Area: 3.94 wk9ODLK Diam: 2.24 cm%FS: 34.03 %EF(Teich): | | [...] mlLAESV Index (A-L): 28.14 ml/m2LAAs A2C: 18.26 [id number] A-L A2C: 53.81 | | mlLALs A2C: 5.26 cmLAAs A4C: 20.28 um8BRGKX A-L A4C: 66.58 mlLALs A4C: 5.24 | | cmRAAs: 20.48 fi1EJBTA A-L: 70.40 mlRAESV MOD: 63.59 mlRALs: 5.06 cmTAPSE: | | 2.02 cmAV maxP.52 mmHgAV meanP.83 mmHgAV Vmax: 1.83 m/Viv Vmean: 1.21 | | m/Viv VTI: 36.82 cmAVA Vmax: 2.09 cm2AVA (VTI): 2.36 mh0CEZP (Vmax): 0.00 | | cm2/m2AVAI (VTI): 0.00 cm2/m2LVOT maxP.80 mmHgLVOT meanP.09 mmHgLVSI Dopp: | | 40.90 ml/m2LVSV Dopp: 87.12 mlLVOT Vmax: 0.97 m/sLVOT Vmean: 0.68 m/sLVOT VTI: | | 22.11 cmMV A Jordan: 0.80 m/sMV Dec [place]: 2.88 m/s2MV DecT: 315.34 msMV E Jordan: | | 0.90 m/sMV E/A Ratio: 1.12 MV PHT: 91.45 msMVA By PHT: 2.40 qs0Pjovcl e': 0.08 | | m/sSeptal E/e': 11.35 [...] A Jordan: 0.80 m/s | |MV Dec [place]: 2.88 m/s2 | |MV DecT: 315.34 ms | |MV E Jordan: 0.90 m/s | |MV E/A Ratio: 1.12 | |MV PHT: 91.45 ms | |MVA By PHT: 2.40 cm2 | |Septal e': 0.08 m/s | |Septal E/e': 11.35 | |RAP: 5 mmHg | |RVSP: 18.14 mmHg | |TR maxP.14 mmHg | |TR Vmax: 1.81 m/s | | | |Apprentice Painter Brush: JUD | |Authenticated by: Donaldcelsa Jose Francisco [...] | + + + + + | [facility] | [address] | [place] [address] | | + + + + + from Last 3 Months Insurance + +--------+ +------+-------+---------+ | Payer | Benefi | Subscriber | Type | Phone | Address | | | t Plan | ID | | | | | | / | | | | | | | Group | | | | | + +--------+ +------+-------+---------+ | [employer] | YELLOW | [id number] | | | | | PLANS | [...] | Self | [birth year] | Home: | [address] | | | al/Fam | | 1955 | [phone] | [place] | | | eryn | | | [phone] | + +--------+ +--------+ + +
--- OUTSIDE RECORDS SUMMARY | ~2017-11-08 | XMS | Encounter Summary ---
Demographics + + + | Address | [address] | | | [place] [address] | + + + | Home Phone | | + + + | Preferred Language | Unknown | + + + | Marital Status | Single | + + + | Spiritism Affiliation | NRP | + + + | Race | or | + + + | Ethnic Group | Not or | + + + Author + + + | Author | [facility] | + + + | Organization | [facility] | + + + | Address | Unknown | + + + | Phone | Unavailable | + + + Support + + +---------+ + | Name | Relationship | Address | Phone | + + +---------+ + | CAMRON OCHOA | ECON | Unknown | | + + +---------+ + Care Team Providers + +------+ + | Care Template Fitter Name | Role | Phone | + [...] | | cirrhosis, | MD Elle | [facility] [address] | | | | | unspecified | [address] | [address] | | | | | hepatic | [place] | Mailcode: | | | | | cirrhosis | [address] | [address] Center | | | | | type, | [place], [place] | for Health | | | | | unspecified | [address] | and Healing, | | | | | whether | Phone: | 6th Floor | | | | | ascites | [phone] | [place], [place] | | | | | present | Fax: | [address] | | | | | (HCC) | [phone] | Phone: | | | | | Procedures | | [phone] | | | | | CONSULT TO | | Fax: | | | | | HEPATOLOGY | | [phone] | +--------+--------+ + + + + Consultation [...] | | CONSULT TO | [address] | [place], [place] | | | | | CARDIOLOGY | [address] | [address] | | | | | | [place], [place] | Phone: | | | | | | [address] | [phone] | | | | | | Phone: | Fax: | | | | | | [phone] | [phone] | | | | | | Fax: | | | | | | | [phone] | | +--------+--------+ + + + + [...] | | | | | ECHOCARDIOGR | [place], [place] | | | | | | AM, ADULT | [address] | | | | | | | Phone: | | | | | | | [phone] | | | | | | | Fax: | | | | | | | [phone] | | + +--------+ + + + [...] | | Perforation | [address] | [facility] | | | | | of | Mailcode: | for Health | | | | | gallbladder | [address] | and Healing, | | | | | | Phsyicians | 6th floor | | | | | | [address] | [place], [place] | | | | | | [place], | [address] | | | | | | [place] | Phone: | | | | | | [address] | [phone] | | | | | | Phone: | Fax: | | | | | | [phone] | [phone] | | | | | | Fax: | | | | | | | [phone] | | + +--------+ + + + + Encounter Details +--------+---------+ + + + | Date | Type | Department | Care Team | Description | +--------+---------+ + + + | 10/13/ | Office | Digestive Health | Clinton Morillo, | Shortness of breath | | 2018 | Visit | Center [address] | [address] | (Primary Dx); | | | | [address] Mailcode: | [address] | Hepatic cirrhosis, | | | | [facility] for | [place], [place] | unspecified hepatic | | | | Health and Healing, | [address] | cirrhosis type, | | | | 6th floor [place], | [phone] | unspecified whether | | | | [place] [address] | | ascites present | | | | [phone] | | ([facility]) | +--------+---------+ + + + Social History [...] + as of this encounter Progress Notes Clinton Morillo MD - 10/13/2017 10:10 AM PDT I saw the patient and reviewed and verified all information documented by the medical stud ent and resident, and made modifications to such information, when appropriate Clinton Morillo M.D. [facility] [place] ([facility]) Professor and Vice-Manager Customer Service of Surgery The Mirza Gamb[facility] for Pancreatic Disease Research [facility] Cell phone: [phone] / [facility] provider's line [phone]. email: [email or web address] Elle Peña MD - 10/13/2017 10:10 AM [...] | 2018 | Visit | | [address] [facility] | | | | | | [facility] | | | | | | [place], [place] | | | | | | [address] | | | | | | [phone] | | | | | | | [...]
--- OUTSIDE RECORDS SUMMARY | ~2017-11-08 | XMS | Encounter Summary ---
Demographics + + + | Address | [address] | | | [place] [address] | + + + | Home Phone [...] + + + | Author | [facility] | + + + | Organization | [facility] | + + + | Address | Unknown | + + + | Phone | Unavailable | + + + Support + + +---------+ + | Name | Relationship | Address | Phone | + + +---------+ + | CAMRON OCHOA | ECON | Unknown | | + + +---------+ + Care Team Providers + +------+ + | Care Speech Clinician Name | Role | Phone | + [...] Record | | 2017 | | at [facility] [address] | | Review (GEN | | | | [address] [place] Mailcode: | | Checklist ) | | | | CH9A [facility] | | | | | | Health and [facility], | | | | | | 9th [facility], | | | | | | [place] [address] | | | | | | [phone] | | | +--------+ + + + [...] + as of this encounter Progress Notes Iris Skelton - 10/15/2017 1:22 PM PDTFormatting of this note may be different from the original. General Cardiology New Patient Record Check List [...] TSH, Hemoglobin A1C in last 6 months) [place] N/A Last Device Check (schedule device check if due) No N/A Last Cardiac MRI report and images if available No Cardiac CTA report and images if available No Patient Preferred Lab [facility] N/A N/A N/A Additional Comments: in this encounter Plan of Treatment +--------+---------+ + + + | Date | Type | Specialty | Care Team | Description | +--------+---------+ + + + | 02/01/ | Office | Cardiology | Michelle Gan MD | | | 2018 | Visit | | [address] | | | | | | [address] | | | | | | [place], [place] | | | | | | [address] | | | | | | [phone] | | | | | | | | +--------+---------+ + + + as of this encounter Visit Diagnoses Not on filein this encounter"
--- OUTSIDE RECORDS SUMMARY | ~2017-11-08 | XMS | Encounter Summary ---
Demographics + + + | Address | [address] | | | [place] [address] | + + + | Home Phone [...] + + | Author | [facility] | + + + | Organization | [facility] | [...] Team Providers + +------+ + | Care City Driver Name | Role | Phone | + [...] 2018 | | General Surgery at | [facility] | | | | | PPV [address] | Road [place], [place] | | | | | [facility] [address] | [address] | | | | | Mailcode: L[address]A | | | | | | Nikkie Mazariegos | | | | | | [address] [place], [place] | | | | | | [address] | | | | | | [phone] | | | +--------+ + + + [...] Rd | | | | | | [place], [place] | | | | | | [address] | | | | | | [phone] | | | | | | | [...]
--- OUTSIDE RECORDS SUMMARY | ~2017-11-08 | XMS | Encounter Summary ---
Demographics + + + | Address | [address] | | | [place] [address] | + + + | Home Phone | | + + + | Preferred Language | Unknown | + + + | Marital Status | Single | + + + | Latter Day Affiliation | NRP | + + + | Race | or | + + + | Ethnic Group | Not or | + + + Author + + + | Author | [facility] | + + + | Organization | [facility] | + + + | Address | Unknown | + + + | Phone | Unavailable | + + + Support + + +---------+ + | Name | Relationship | Address | Phone | + + +---------+ + | CAMRON OCHOA | ECON | Unknown | | + + +---------+ + Care Team Providers + +------+ + | Care Product Development Actuary Name | Role | Phone | + [...] Closed | | Radiology | Diagnoses | Chi, | [facility] | | | | | Cholangitis | MD Moustapha | [address] | | | | | Procedures | [address] | | | | | MRI | [facility] | [facility] | | | | | [address] | Rd | Mailcode: | | | | | [address] | [place], [place] | [address] | | | | | CONTRAST (+ | [address] | [place] | | | | | [place]) | Phone: | Research | | | | | | [phone] | [place] | | | | | | Fax: | [place], [place] | | | | | | [phone] | [address] | | | | | | | Phone: | | | | | | | [phone] | | | | | | | Fax: | | | | | | | [phone] | +--------+--------+ + + + + Diagnostic Testing (Routine) +--------+--------+ + + + + | Status | Reason | Specialty | Diagnoses / | Referred By | Referred To | | | | | Procedures | Contact | Contact | +--------+--------+ + + + + | Closed | | Radiology | Diagnoses | Chi, | [facility] H[facility] | | | | | Cholangitis | MD Moustapha | [address] | | | | | Procedures | [address] | [address] | | | | | MRI | [facility] | [facility] | | | | | [address] | Rd | Mailcode: | | | | | [address] | [place], [place] | [address] | | | | | CONTRAST (+ | [address] | [place] | | | | | [place]) | Phone: | Research | | | | | | [phone] | [place] | | | | | | Fax: | [place], [place] | | | | | | [phone] | [address] | | | | | | | Phone: | | | | | | | [phone] | | | | | | | Fax: | | | | | | | [phone] | +--------+--------+ + + + + Reason for Visit Diagnostic Testing (Routine) +--------+--------+ + + + + | Status | Reason | Specialty | Diagnoses / | Referred By | Referred To | | | | | Procedures | Contact | Contact | +--------+--------+ + + + + | Closed | | Radiology | Diagnoses | Chi, | [facility] | | | | | Cholangitis | MD Moustapha | [address] | | | | | Procedures | [address] | [address] | | | | | MRI | [facility] | [facility] | | | | | [address] | Rd | Mailcode: | | | | | [address] | [place], [place] | [address] | | | | | CONTRAST (+ | [address] | [place] | | | | | [place]) | Phone: | Research | | | | | | [phone] | Center | | | | | | Fax: | [place], [place] | | | | | | [phone] | [address] | | | | | | | Phone: | | | | | | | [phone] | | | | | | | Fax: | | | | | | | [phone] | +--------+--------+ + + + + Encounter Details +--------+ + + + + | Date | Type | Department | Care Team | Description | +--------+ + + + + | 09/24/ | Hospital | Diagnostic Imaging | Moustapha Schafer MD | | | 2018 | Encounter | Services at [facility] | [address] | | | | | [address] | [facility], | | | | | [facility] | [place] [address] | | | | | Mailcode: [address] | [phone] | | | | | [facility] | | | | | | [place], [place] | | | | | | [address] | | | | | | [phone] | | | +--------+ + + + [...] + + + | Blood Pressure | - | - | + + + + | Pulse | - | - | + + + + | Temperature | - | - | + + + + | Respiratory Rate | - | - | + + + + | Oxygen Saturation | - | - | + + + + | Inhaled Oxygen | - | - | | Concentration | | | + + + + | Weight | 89.8 kg (198 lb) | 09/24/2017 2:27 PM PDT | + + + + | Height | - | - | + + + + | Body Mass Index | 28.01 | 09/24/2017 2:27 PM PDT | + + + + [...] Medications at Time of Discharge + + +--------+---------+ + + | Medication | Sig. | Disp. | Refills | Start | End Date | | | | | | Date | | + + +--------+---------+ + + | acyclovir 5 % | Apply to affected | | | | | | topical ointment | area five times | | | | | | | daily. PRN for | | | | | | | outbreaks | | | | | + + +--------+---------+ + + | acyclovir 800 mg | Take 800 mg by mouth | | | | | | oral tablet | five times daily. | | | | | | | PRN for outbreaks | | | | | + + +--------+---------+ + + | Cholecalciferol | Take 5,000 Units by | | | | | | (Vitamin D3) 5,000 | mouth once daily. | | | | | | unit oral capsule | | | | | | + + +--------+---------+ + + | insulin aspart | Inject [...] | | | | | + + +--------+---------+ + + | LANTUS SOLOSTAR | Inject 60-80 Units | | | | | | U-100 INSULIN 100 | under the skin | | | | | | unit/mL (3 mL) | (SUBC) every twelve | | | | | | subcutaneous insulin | hours. | | | | | | pen | | | | | | + + +--------+---------+ + + | losartan 25 mg | Take 25 mg by mouth | | | | | | oral tablet | once daily. | | | | | + + +--------+---------+ + + | omeprazole 40 mg | Take 40 mg by mouth | | | | | | oral capsule,delayed | once daily in the | | | | | | release(DR/EC) | morning. | | | | | + + +--------+---------+ + + | oxyCODONE | Take 1 to 2 tablets | 30 | 0 | // | | | (immediate release) | by mouth every four | tablet | | 18 | | | 5 mg oral tablet | hours as needed for | | | | | | | moderate pain. | | | | | + + +--------+---------+ + + | rifAXIMin 550 mg | Take 550 mg by mouth | | | | | | oral tablet | two times daily. | | | | | + + +--------+---------+ + + | rosuvastatin | Take 10 mg by mouth | | | | | | (CRESTOR) 10 mg oral | once daily. | | | | | | tablet | | | | | | + + +--------+---------+ + + as of this encounter Plan [...] Rd | | | | | | [place], [place] | | | | | | [address] | | | | | | [phone] | | | | | | | [...] + + + in this encounter Results MRI CHOLANGIOGRAPHY [address] CONTRAST (+ [place]) [...] PM Dictation | | | initiated: Petar Albright MD 09/24/2017 3:13 PM | | + [...] + + + + | [facility] | [address] | [place], [place] | | | [facility] | [address] | [address] | | | TESTS | | | | + + + + + in this encounter Visit Diagnoses + + | Diagnosis | + + | Cholangitis | + + Administered Medications + +---------+ +-------+------+------+ | Medication Order | MAR | Action | Dose | Rate | Site | | | Action | Date | | | | + +---------+ +-------+------+------+ | gadoterate meglumine (DOTAREM) | IV Push | | 18 mL | | | | 0.5 mmol/mL (376.9 mg/mL) | | 8 15:00 | | | | | injection 18 mL 18 mL (rounded | | PDT | | | | | from 17.96 mL = 0.2 mL/kg | | | | | | | 89.8 kg), intravenous, ONCE, 1 | | | | | | | dose, 09/24/17 at 1500 | | | | | | + +---------+ +-------+------+------+ +---+---+ | | | +---+---+ in this encounter"
--- OUTSIDE RECORDS SUMMARY | ~2017-11-08 | XMS | Encounter Summary ---
Demographics + + + | Address | [address] | | | [place] [address] | + + + | Home Phone | | + + + | Preferred Language | Unknown | + + + | Marital Status | Unknown | + + + | Anabaptism Affiliation | Unknown | + + + | Race | Unknown | + + + | Ethnic Group | Unknown | + + + Author + + + | Author | [facility] | + + + | Organization | [facility] | + + + | Address | Unknown | + + + | Phone | Unavailable | + + + Support + + +---------+ + | Name | Relationship | Address | Phone | + + +---------+ + | No,Contact | ECON | Unknown | | + + +---------+ + Care Team Providers + +------+ + | Care Weighmaster Lead Name | Role | Phone | + +------+ + | Shakir Monzon MD | PCP | | + +------+ + Encounter Details +--------+ + + + + | Date | Type | Department | Care Team | Description | +--------+ + + + + | 10/27/ | Ancillary | [facility] | Shakir Monzon MD | Coronary artery | | 2018 | Orders | ECHO | [id number] | disease, angina | | | | | [place], [place] | presence | | | | | [address] | unspecified, | | | | | | unspecified vessel | | | | | | or lesion type, | | | | | | unspecified whether | | | | | | [place] or | | | | | | transplanted heart | +--------+ + + + + Social [...] Not on fileas of this encounter Results ECHO outside interpretation standard (10/27/2017 3:11 [...] | + + + | Patient Name: Bret Espinal Date of : 1955 | [facility] | | Performing Physician: Ayana Felton | [...] 0.80 m/s | | | MV Dec Garrett: 2.88 m/s2 MV DecT: 315.34 ms MV E Jordan: | | | 0.90 m/s MV E/A Ratio: 1.12 MV PHT: 91.45 ms MVA By | | | PHT: 2.40 cm2 Septal e': 0.08 m/s Septal E/e': 11.35 | | | RAP: 5 mmHg RVSP: 18.14 mmHg TR maxP.14 mmHg TR | | | Vmax: 1.81 m/s Special Machine Stitcher: JUD Authenticated by: Ayana | | | [facility] Report Date/Time: 10-28-2017 12:48:42 | | + + + + + | Procedure Note | + + | Harjit, Rad Results In - 10/28/2017 12:51 PM PDT Patient Name: Kenyon Espinal of | | : 1955ccession: [id number] Physician: Ayana | | [facility] INDICATIONS------ | | -----CADCONCLUSIONS 1. The left [...] | | cmLVPWd: 0.85 cmLVOT Area: 3.94 [id number] Diam: 2.24 cm%FS: 34.03 %EF(Teich): | | [...] mlLAESV Index (A-L): 28.14 ml/m2LAAs A2C: 18.26 [id number] A-L A2C: 53.81 | | mlLALs A2C: 5.26 cmLAAs A4C: 20.28 vy8KGGHD A-L A4C: 66.58 mlLALs A4C: 5.24 | | cmRAAs: 20.48 [id number] A-L: 70.40 mlRAESV MOD: 63.59 mlRALs: 5.06 cmTAPSE: | | 2.02 cmAV maxP.52 mmHgAV meanP.83 mmHgAV Vmax: 1.83 m/Viv Vmean: 1.21 | | m/Viv VTI: 36.82 cmAVA Vmax: 2.09 cm2AVA (VTI): 2.36 ak8UFCG (Vmax): 0.00 | | cm2/m2AVAI (VTI): 0.00 cm2/m2LVOT maxP.80 mmHgLVOT meanP.09 mmHgLVSI Dopp: | | 40.90 ml/m2LVSV Dopp: 87.12 mlLVOT Vmax: 0.97 m/sLVOT Vmean: 0.68 m/sLVOT VTI: | | 22.11 cmMV A Jordan: 0.80 m/sMV Dec Garrett: 2.88 m/s2MV DecT: 315.34 msMV E Jordan: | | 0.90 m/sMV E/A Ratio: 1.12 MV PHT: 91.45 msMVA By PHT: 2.40 uh2Fsardm e': 0.08 | | m/sSeptal E/e': 11.35 RAP: 5 mmHgRVSP: 18.14 mmHgTR maxP.14 mmHgTR Vmax: | | 1.81 m/sSonographer: DBSAuthenticated by: Ayana Alspembroke townshipraReport Date/Time: 10-28-2017 | | 12:48:42IMPRESSION:1. The left [...] A Jordan: 0.80 m/s | |MV Dec Garrett: 2.88 m/s2 | |MV DecT: 315.34 ms | |MV E Jordan: 0.90 m/s | |MV E/A Ratio: 1.12 | |MV PHT: 91.45 ms | |MVA By PHT: 2.40 cm2 | |Septal e': 0.08 m/s | |Septal E/e': 11.35 | |RAP: 5 mmHg | |RVSP: 18.14 mmHg | |TR maxP.14 mmHg | |TR Vmax: 1.81 m/s | | | |Special Machine Stitcher: DBS | |Authenticated by: Ayana Felton | |Report Date/Time: 10-28-2017 12:48:42 | | [...] | + + + + + | [facility] | [address] | [place] [address] | | + + + + + in this encounter Visit Diagnoses + + | Diagnosis | + + | Coronary artery disease, angina presence unspecified, unspecified vessel or lesion | | type, unspecified whether [place] or transplanted heart | + +"
--- OUTSIDE RECORDS SUMMARY | ~2017-11-08 | XMS | Encounter Summary ---
Demographics + + + | Address | [address] | | | [place] [address] | + + + | Home Phone [...] + + | Author | [facility] | + + + | Organization | [facility] | + + + | Address | Unknown | + + + | Phone | Unavailable | + + + Support + + +---------+ + | Name | Relationship | Address | Phone | + + +---------+ + | CAMRON OCHOA | ECON | Unknown | | + + +---------+ + Care Team Providers + +------+ + | Care Certified Phlebotomist Name | Role | Phone | + [...] Question | | 2018 | | Center [address] | [address] | | | | | Rolando Rivas Mailcode: | [address] [place] | | | | | [facility] | [place], [place] | | | | | [facility], | [address] | | | | | 6th floor [place], | [phone] | | | | | [place] [address] | | | | | | [phone] | | | +--------+ + + + [...] | 2018 | Visit | | [address] [facility] | | | | | | [address] | | | | | | [place], [place] | | | | | | [address] | | | | | | [phone] | | | | | | | | +--------+---------+ + + + as of this encounter Visit Diagnoses Not on filein this encounter"
--- OUTSIDE RECORDS SUMMARY | ~2017-11-08 | XMS | Encounter Summary ---
Demographics + + + | Address | [address] | | | [place] [address] | + + + | Home Phone | | + + + | Preferred Language | Unknown | + + + | Marital Status | Unknown | + + + | Orthodoxy Affiliation | Unknown | + + + | Race | Unknown | + + + | Ethnic Group | Unknown | + + + Author + + + | Author | [facility] | + + + | Organization | [facility] | + + + | Address | Unknown | + + + | Phone | Unavailable | + + + Support + + +---------+ + | Name | Relationship | Address | Phone | + + +---------+ + | No,Contact | ECON | Unknown | | + + +---------+ + Care Team Providers + +------+ + | Care Bung Remover Name | Role | Phone | + +------+ + | Shakir Monzon MD | PCP | | + +------+ + Encounter Details +--------+ + + + + | Date | Type | Department | Care Team | Description | +--------+ + + + + | 10/27/ | Ancillary | [facility] | Shakir Monzon MD | Coronary artery | | 2018 | Procedure | ECHO | [id number] | disease, angina | | | | | [place] | presence | | | | | [address] | unspecified, | | | | | | unspecified vessel | | | | | | or lesion type, | | | | | | unspecified whether | | | | | | [place] or | | | | | | [...] Treatment Not on fileas of this encounter Procedures + +--------+ + [...] whether | | | | | | [place] or | | | | | | transplanted heart | | + +--------+ + + + in this encounter Results ECHO outside interpretation standard [...] Bret Espinal Date of : 1955 | [facility] | | Performing Physician: Ayana Felton | [...] 0.80 m/s | | | MV Dec [place]: 2.88 m/s2 MV DecT: 315.34 ms MV E Jordan: | | | 0.90 m/s MV E/A Ratio: 1.12 MV PHT: 91.45 ms MVA By | | | PHT: 2.40 cm2 Septal e': 0.08 m/s Septal E/e': 11.35 | | | RAP: 5 mmHg RVSP: 18.14 mmHg TR maxP.14 mmHg TR | | | Vmax: 1.81 m/s Landscape Supervisor: JUD Authenticated by: Ayana | | | [facility] Report Date/Time: 10-28-2017 12:48:42 | | + + + + + | Procedure Note | + + | Harjit, Rad Results In - 10/28/2017 12:51 PM PDT Patient Name: Kenyon Espinal of | | : 1955ccession: [id number] Physician: Ayana | | Alsamara INDICATIONS------ | | -----CADCONCLUSIONS 1. The left [...] | | cmLVPWd: 0.85 cmLVOT Area: 3.94 lr2VSDI Diam: 2.24 cm%FS: 34.03 %EF(Teich): | | [...] mlLAESV Index (A-L): 28.14 ml/m2LAAs A2C: 18.26 ws1JRMRF A-L A2C: 53.81 | | mlLALs A2C: 5.26 cmLAAs A4C: 20.28 ro6SBDOE A-L A4C: 66.58 mlLALs A4C: 5.24 | | cmRAAs: 20.48 nx3DKWVH A-L: 70.40 mlRAESV MOD: 63.59 mlRALs: 5.06 cmTAPSE: | | 2.02 cmAV maxP.52 mmHgAV meanP.83 mmHgAV Vmax: 1.83 m/Viv Vmean: 1.21 | | m/Viv VTI: 36.82 cmAVA Vmax: 2.09 cm2AVA (VTI): 2.36 qe3AUQL (Vmax): 0.00 | | cm2/m2AVAI (VTI): 0.00 cm2/m2LVOT maxP.80 mmHgLVOT meanP.09 mmHgLVSI Dopp: | | 40.90 ml/m2LVSV Dopp: 87.12 mlLVOT Vmax: 0.97 m/sLVOT Vmean: 0.68 m/sLVOT VTI: | | 22.11 cmMV A [place]: 0.80 m/sMV Dec [place]: 2.88 m/s2MV DecT: 315.34 msMV E [place]: | | 0.90 m/sMV E/A Ratio: 1.12 MV PHT: 91.45 msMVA By PHT: 2.40 ii3Fuptnz e': 0.08 | | m/sSeptal E/e': 11.35 RAP: 5 mmHgRVSP: 18.14 mmHgTR maxP.14 mmHgTR Vmax: | | 1.81 m/sSonographer: DBSAuthenticated by: Ayana Vicentawilson street hospitalReport Date/Time: 10-28-2017 | | 12:48:42IMPRESSION:1. The left [...] A Jordan: 0.80 m/s | |MV Dec [place]: 2.88 m/s2 | |MV DecT: 315.34 ms | |MV E Jordan: 0.90 m/s | |MV E/A Ratio: 1.12 | |MV PHT: 91.45 ms | |MVA By PHT: 2.40 cm2 | |Septal e': 0.08 m/s | |Septal E/e': 11.35 | |RAP: 5 mmHg | |RVSP: 18.14 mmHg | |TR maxP.14 mmHg | |TR Vmax: 1.81 m/s | | | |Landscape Supervisor: JUD | |Authenticated by: Ayana Felton | |Report [...] | + + + + + | [facility] | [address] | [place] [address] | | + + + + + in this encounter Visit Diagnoses + + | Diagnosis | + + | Coronary artery disease, angina presence unspecified, unspecified vessel or lesion | | type, unspecified whether [place] or transplanted heart | + +"
--- OUTSIDE RECORDS SUMMARY | ~2017-11-08 | XMS | Clinical Summary ---
Demographics + + + | Address | [address] | | | [place] [address] | + + + | Home Phone [...] Team Providers + +------+ + | Care Volunteer Coordinator Name | Role | Phone | + +------+ + | Shakir Monzon MD | PP | | + +------+ + Source Comments LINDA is fully live on both EpicCare Ambulatory and EpicCare InPatient.[facility] Allergies + + + + [...] Sharon Sanderson | Dyspnea, unspecified | | 2017 | Visit | | E, PA-C | type (Primary Dx); | | | | | | Coronary artery | | | | | | disease involving | | | | | | tribe coronary | | | | | | artery, angina | | | | | | presence | | | | | | unspecified, | | | | | | unspecified whether | | | | | | tribe or | | | | | | transplanted heart; | | | | | | Essential | | | | | | hypertension; | | | | | | Pre-operative | | | | | | cardiovascular | | | | | | examination | +--------+ + + + + | 11/01/ | Abstract | | Sharon Sanderson | | | 2018 | | | E, PA-C | | +--------+ + + + + | 10/21/ | Telephone | | Clinton Morillo, | Question | | 2018 | | | MD [...] Moustapha Schafer MD | Cholangitis (Primary | | 2018 | Visit | | | Dx) | [...] | | Jessika Allen, | | | 2017 | Encounter | | MD | | +--------+ + + + + | 08/09/ | Abstract | | Bessy Solano, | Medical Records | | 2018 | | | PA-C | Review | [...] | 2018 | Visit | | [address] | | | | | | [address] | | | | | | [place], [place] | | | | | | [address] | | | | | | [phone] | | | | | | | [...] | + + + + + | [facility] | [address] | [place], [place] | | | CARDIOLOGY | [address] | [address] | | + + + + + CBC (HEMOGRAM) ONLY (10/13/2017 9:49 AM) + + + + + | Component | Value | Ref Range | Performed At | + + + + + | WHITE CELL COUNT | 6.70 | 3.50 - 10.80 K/cu mm | [facility] | | | | | SERVICES, [...] 34.6 | 32.0 - 36.0 g/dL | [facility] | | | | | SERVICES, CORE | + + + + + | RDW SD | 46.9 (H) | 35.1 - 46.3 fL | [facility] | | | | | SERVICES, CORE | + + + + + | PLATELET COUNT | 78 (L)Comment: | 150 - 400 K/cu mm | [facility] | | | Macroplatelets present. | | SERVICES, CORE | + + + + + | MPV | 11.7 | 9.7 - 12.3 fL | [facility] | | | | | SERVICES, CORE | + + + + + | NRBC% | 0.0 | 0.0 - 0.3 % | [facility] | | | | | SERVICES, CORE | + + + + + | NRBC# | 0.00 | 0.00 - 0.02 K/cu mm | [facility] | | | | | SERVICES, JORGE L | + + + + + + + | Specimen | + + | Blood - Blood | + + + + + + + | Performing | Address | City/State/Zipcode | Phone Number | | Organization | | | | + + + + + | [facility] | [address] | [place] [address] | | | SERVICES, J[address]GE [address] | [address] | | | + + + + + INR (10/13/2017 9:49 AM) + +-------+ + + | Component | Value | Ref Range | Performed At | + +-------+ + + | INR | 1.11 | 0.90 - 1.20 INR | [facility] | | | | | SERVICES, CORE | + +-------+ + + + + | Specimen | + + | Blood - Blood | + + + + + | Narrative | Performed At | + + + | INR Therapeutic ranges for full anticoagulation: INR for | [facility] | | Venous Thromboembolism (2.0 - 3.0) INR INR | LABORATORY | | for most patients with mech. valves (2.5 - 3.5) INR | SERVICES, CORE | + + + + + + + + | Performing | Address | City/State/Zipcode | Phone Number | | Organization | | | | + + + + + | [facility] | [address] | [place] [address] | | | SERVICES, CORE | [address] [...] >60 mL/min | [facility] | | [place] | | | SERVICES, CORE | + +---------+ + + | EGFR NON | >60 | >60 mL/min | [facility] | | -[place] | | | SERVICES, CORE | + [...] [facility] | [address] | [place] [address] | | | SERVICES, CORE | [address] | | | + + + + + ALPHA-FETOPROTEIN TUMOR MARKER, SERUM (10/13/2017 9:49 AM) + +-------+ + + | Component | Value | Ref Range | Performed At | + +-------+ + + | AFP TUMOR MARKER | 7.7 | <=9.0 ng/mL | [facility] | | SERUM, [facility] | | | SERVICES, CORE | + +-------+ + + + + | Specimen | + + | Blood - Blood | + + + + + + + | Performing | Address | City/State/Zipcode | Phone Number | | Organization | | | | + + + + + | [facility] | [address] | [place] [address] | | | SERVICES, CORE | [address] [...] Note | + + | Service Account, MBD[employer] Media Res In Interface - 09/27/2017 9:10 AM [...] Bartlett MD 09/27/2017 9:09 AM Preliminary: Petar Albright MD 09/24/2017 5:31 PM Dictation initiated: [...] | | | + +---------+ + + CREATININE, POC (09/24/2017 1:44 PM) + +-------+ + + [...] + + + + | [facility] | [address] | [place], [place] | | | [facility] | [address] | [address] | | | TESTS | | | [...] | OHP | [phone] | Medica | [phone] | [address] [address] | | | PLUS | | id | [phone] | [place] [address] | | | OPEN | | | | | | | CARD | | | | | + +--------+ +--------+ + + | [facility] | AMERICAN | [phone] | Agency | | | [...] | Self | [birth year] | Home: | [address] | | | al/Fam | | 1955 | [phone] | [place] [address] | | | eryn | | | [phone] | | + +--------+ +--------+ + +
--- OUTSIDE RECORDS SUMMARY | ~2017-11-08 | XMS | Clinical Summary ---
Demographics + + + | Address | [address] | | | [place] [address] | + + + | Home Phone | | + + + | Preferred Language | Unknown | + + + | Marital Status | Single | + + + | Alevism Affiliation | Unknown | + + + | Race | Unknown | + + + | Ethnic Group | Unknown | + + + Author + + + | Author | [facility] | | | and Calana | + + + | Organization | [facility] | | | and [...] Team Providers + +------+ + | Care Blue Line Trimmer Name | Role | Phone | + [...] +---------+ | [place] | MEDICA | [id number] | Medica | [phone] | | | [place] | | id | [phone] | | | | PLUS | | | | | + +--------+ +--------+ +---------+ | [facility] | IHS | [id number] | Indemn | | | | SERVICE [...] | Self | [birth year] | Home: | [address] | | | al/Fam | | 1955 | [phone] | [place] [address] | | | eryn | | | [phone] | | + +--------+ +--------+ + +
--- OUTSIDE RECORDS SUMMARY | ~2017-11-08 | XMS | Encounter Summary ---
Demographics + + + | Address | [address] | | | [place] [address] | + + + | Home Phone [...] + + + | Author | [facility] | + + + | Organization | [facility] [place] [facility] | + + + | Address | Unknown | + + + | Phone | Unavailable | + + + Support + + +---------+ + | Name | Relationship | Address | Phone | + + +---------+ + | CAMRON OCHOA | ECON | Unknown | | + + +---------+ + Care Team Providers + +------+ + | Care Lode Miner Name | Role | Phone | + +------+ + | Shakir Monzon MD | PCP | | + +------+ + Encounter Details +--------+ + + + + | Date | Type | Department | Care Team | Description | +--------+ + + + + | 09/10/ | Procedure | Diagnostic Imaging | | | | 2017 | Pass | Services at [facility] | | | | | | [address] | | | | | | [facility] | | | | | | Mailcode: [id number] | | | | | | [place] [facility] | | | | | | [place], [place] | | | | | | [address] | | | | | | [phone] | | | +--------+ + + + [...] | 2017 | Visit | | [address] [facility] | | | | | | [address] | | | | | | [place], [place] | | | | | | [address] | | | | | | [phone] | | | | | | | | +--------+---------+ + + + as of this encounter Visit Diagnoses Not on filein this encounter"
--- OUTSIDE RECORDS SUMMARY | ~2017-11-08 | XMS | Encounter Summary ---
Demographics + + + | Address | [address] | | | [place] [address] | + + + | Home Phone [...] Author + + + | Author | [facility] | + + + | Organization | [facility] | + + + | Address | Unknown | + + + | Phone | Unavailable | + + + Support + + +---------+ + | Name | Relationship | Address | Phone | + + +---------+ + | CAMRON OCHOA | ECON | Unknown | | + + +---------+ + Care Team Providers + +------+ + | Care Sports Teacher Name | Role | Phone | [...] | | | | | unspecified | [address] | and Healing, | | | | | whether | Phone: | 6th Floor | | | | | ascites | [phone] | [place], [place] | | | | | present | Fax: | [address] | | | | | (HCC) | [phone] | Phone: | | | | | Procedures | | [phone] | | | | | CONSULT TO | | Fax: | | | | | HEPATOLOGY | | [phone] | +--------+--------+ + + + + Encounter Details +--------+---------+ + + + | Date | Type | Department | Care Team | Description | +--------+---------+ + + + | 11/03/ | Office | Digestive Health | Marc Solano, | Cirrhosis of liver | | 2018 | Visit | Center at [facility] 6th | PA-C [address] | without ascites, | | | | Floor [address] | [address] | unspecified hepatic | | | | [place] Mailcode: [id number] | [place], [place] | cirrhosis type (HCC) | | | | [place] for [facility] | [address] | (Primary Dx); | | | | and Healing, 6th | [phone] | Gallbladder | | | | Floor [facility] [place] | | perforation | | | | [address] | | | | | | [phone] | | | +--------+---------+ + + + [...] Note reviewed. Paul Rice MD, MS, JACK ticket agent Director of Clinical Hepatology [facility] Division of Gastroenterology/Hepatology Marc Solano PA-C - [...] and is currently bein g evaluated by [facility]// Ilia's team for cholecystectomy He has [...] ~2015 per patient 5. 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 MARC SOLANO PA-C [facility] AT [facility] 6TH FLOOR [address] Mailcode: [place] [address] in this encounter Plan of Treatment +--------+---------+ + + + | Date | Type | Specialty | Care Team | Description | +--------+---------+ + + + | 02/01/ | Office | Cardiology | Michelle Gan MD | | | 2018 | Visit | | [address] [facility] | | | | | | [address] | | | | | | [place], [place] | | | | | | [address] | | | | | | [phone] | | | | | | | | +--------+---------+ + + + as of this encounter Visit Diagnoses + + | Diagnosis | + + | Cirrhosis of liver without ascites, unspecified hepatic cirrhosis type (HCC) - Primary | + + | Gallbladder perforation | + + | Perforation of gallbladder | + +"
--- OUTSIDE RECORDS SUMMARY | ~2017-11-08 | XMS | Encounter Summary ---
Demographics + + + | Address | [address] | | | [place] [address] | + + + | Home Phone [...] + | Author | [facility] | + + + | Organization | [facility] | + + + | Address | Unknown | + + + | Phone | Unavailable | + + + Support + + +---------+ + | Name | Relationship | Address | Phone | + + +---------+ + | CAMRON OCHOA | ECON | Unknown | | + + +---------+ + Care Team Providers + +------+ + | Care Fast Food Crew Lead Name | Role | Phone | [...] CT ABDOMEN | [address] | [address] [place], | | | | | AND PELVIS | [place], [place] | [place] | | | | | [place] | [address] | [address] | | | | | CONTRAST [place] | Phone: | Phone: | | | | | CT | [phone] | [phone] | | | | | ABDOMEN&PELV | Fax: | Fax: | | | | | [place] | [phone] | [phone] | | | | | W/CONTRAST | [...] | | | Procedures | [address] | [facility] | | | | | CT ABDOMEN | [address] | [address] [place], | | | | | AND PELVIS | [place], [place] | [place] | | | | | [place] | [address] | [address] | | | | | CONTRAST [place] | Phone: | Phone: | | | | | CT | [phone] | [phone] | | | | | ABDOMEN&PELV | Fax: | Fax: | | | | | IS | [phone] | [phone] | | | | | W/CONTRAST | [...] CT ABDOMEN | [address] | [address] [place], | | | | | AND PELVIS | [place], [place] | [place] | | | | | W [place] | [address] | [address] | | | | | CONTRAST [place] | Phone: | Phone: | | | | | CT | [phone] | [phone] | | | | | ABDOMEN&PELV | Fax: | Fax: | | | | | IS | [phone] | [phone] | | | | | W/CONTRAST | | | + +--------+ + + + + Encounter Details +--------+ + + + + | Date | Type | Department | Care Team | Description | +--------+ + + + + | 08/13/ | Hospital | Diagnostic Imaging | Jessika Allen, | | | 2018 | Encounter | Services at [facility] | [address] | | | | | [address] | [facility] | | | | | [facility] | [place], [place] | | | | | Mailcode: [address] [facility] | [address] | | | | | [facility], | [phone] | | | | | [place] [address] | | | | | | [phone] | | | +--------+ + + + [...] | 2018 | Visit | | [address] [facility] | | | | | | [address] | | | | | | [place], [place] | | | | | | [address] | | | | | | [phone] | | | | | | | [...]
--- OUTSIDE RECORDS SUMMARY | ~2017-11-08 | XMS | Encounter Summary ---
Demographics + + + | Address | [address] | | | [place] [address] | + + + | Home Phone [...] + + + | Author | [facility] | + + + | Organization | [facility] | + + + | Address | Unknown | + + + | Phone | Unavailable | + + + Support + + +---------+ + | Name | Relationship | Address | Phone | + + +---------+ + | CAMRON OCHOA | ECON | Unknown | | + + +---------+ + Care Team Providers + +------+ + | Care Police Department Secretary Name | Role | Phone | [...] | | | | | es | [address] | [facility] | | | | | | Health | Road | | | | | | Center | Mailcode: | | | | | | [address] | [address] | | | | | | [place] | Physicians | | | | | | Way | [address] | | | | | | [address], | [address] | | | | | | [place] [address] | [place], [place] | | | | | | Phone: | [address] | | | | | | [phone] | Phone: | | | | | | Fax: | [phone] | | | | | | [phone] | Fax: | | | | | | | [phone] | + +--------+ + + + + [...] | PPV [address] | [facility] [address] | cholecystitis and | | | | [facility] | [place], [place] | obstruction (Primary | | | | Mailcode: [address]A | [address] | Dx); Chronic | | | | [facility] | [phone] | hepatitis C without | | | | [address] [facility] [place] | | hepatic coma (HCC) | | | | [address] | | | | | | [phone] | | | +--------+---------+ + + + [...] and not resume. Dion Mac MD, FACS Cyber Security Consultant, Trauma, Critical Care and Acute Care Surgery in this encounter Plan of Treatment +--------+---------+ + + + | Date | Type | Specialty | Care Team | Description | +--------+---------+ + + + | 02/01/ | Office | Cardiology | Michelle Gan MD | | | 2017 | Visit | | [address] [facility] | | | | | | [facility] | | | | | | [place], [place] | | | | | | [address] | | | | | | [phone] | | | | | | | [...]
--- OUTSIDE RECORDS SUMMARY | ~2017-11-08 | XMS | Encounter Summary ---
Demographics + + + | Address | [address] | | | [place] [address] | + + + | Home Phone [...] Author + + + | Author | [facility] | + + + | Organization | [facility] | + + + | Address | Unknown | + + + | Phone | Unavailable | + + + Support + + +---------+ + | Name | Relationship | Address | Phone | + + +---------+ + | CAMRON OCHOA | ECON | Unknown | | + + +---------+ + Care Team Providers + +------+ + | Care Supervisor Alteration Workroom Name | Role | Phone | + [...] [address] | | | | | [facility] [place] for | [place], [place] | | | | | Health and Healing, | [address] | | | | | 6th floor [place], | [phone] | | | | | [place] [address] | | | | | | [phone] | | | +--------+ + + + [...] | 2018 | Visit | | [address] [facility] | | | | | | [address] | | | | | | [place], [place] | | | | | | [address] | | | | | | [phone] | | | | | | | | +--------+---------+ + + + as of this encounter Visit Diagnoses Not on filein this encounter"
--- OUTSIDE RECORDS SUMMARY | ~2017-11-08 | XMS | Clinical Summary ---
Demographics + + + | Address | [address] | | | [place] [address] | + + + | Home Phone [...] Providers + +------+ + | Care Water Chaser Name | Role | Phone | + +------+ + | Shakir Monzon MD | PP | | + +------+ + Source Comments LINDA is fully live on both EpicCare Ambulatory and EpicCare InPatient.[facility] Allergies + + + + + [...] involving | | | | | | [place] coronary | | | | | | artery, angina | | | | | | presence | | | | | | unspecified, | | | | | | unspecified whether | | | | | | [place] or | | | | | | [...] Rd | | | | | | [place], [place] | | | | | | [address] | | | | | | [phone] | | | | | | | [...] | + + + + + | [facility] | [address] | [place], [place] | | | CARDIOLOGY | [address] | [address] | | + + + + + CBC (HEMOGRAM) ONLY (10/13/2017 9:49 AM) + + + + + | Component | Value | Ref Range | Performed At | + + + + + | WHITE CELL COUNT | 6.70 | 3.50 - 10.80 K/cu mm | [facility] | | | | | SERVICES, [...] (H) | 35.1 - 46.3 fL | [facility] | | | | | SERVICES, CORE | + + + + + | PLATELET COUNT | 78 (L)Comment: | 150 - 400 K/cu mm | [facility] | | | Macroplatelets present. | | SERVICES, CORE | + + + + + | MPV | 11.7 | 9.7 - 12.3 fL | [facility] | | | | | SERVICES, CORE | + + + + + | NRBC% | 0.0 | 0.0 - 0.3 % | [facility] | | | | | SERVICES, CORE | + + + + + | NRBC# | 0.00 | 0.00 - 0.02 K/cu mm | [facility] | | | | | SERVICES, JORGE L | + + + + + + + | Specimen | + + | Blood - Blood | + + + + + + + | Performing | Address | City/State/Zipcode | Phone Number | | Organization | | | | + + + + + | [facility] | [address] | [place] [address] | | | SERVICES, JORGE L | [address] | | | + + + + + INR (10/13/2017 9:49 AM) + +-------+ + + | Component | Value | Ref Range | Performed At | + +-------+ + + | INR | 1.11 | 0.90 - 1.20 INR | [facility] | | | | | SERVICES, CORE | + +-------+ + + + + | Specimen | + + | Blood - Blood | + + + + + | Narrative | Performed At | + + + | INR Therapeutic ranges for full anticoagulation: INR for | [facility] | | Venous Thromboembolism (2.0 - 3.0) INR INR | LABORATORY | | for most patients with mech. valves (2.5 - 3.5) INR | SERVICES, CORE | + + + + + + + + | Performing | Address | City/State/Zipcode | Phone Number | | Organization | | | | + + + + + | [facility] | [address] [facility] | [place] [address] | | | SERVICES, CORE | [address] [...] >60 mL/min | [facility] | | SYRIAN | | | SERVICES, CORE | + +---------+ + + | EGFR NON | >60 | >60 mL/min | [facility] | | -SYRIAN | | | SERVICES, CORE | + [...] [facility] | [address] | [place] [address] | | | SERVICES, CORE | [address] | | | + + + + + ALPHA-FETOPROTEIN TUMOR MARKER, SERUM (10/13/2017 9:49 AM) + +-------+ + + | Component | Value | Ref Range | Performed At | + +-------+ + + | AFP TUMOR MARKER | 7.7 | <=9.0 ng/mL | [facility] | | SERUM, [facility] | | | SERVICES, CORE | + +-------+ + + + + | Specimen | + + | Blood - Blood | + + + + + + + | Performing | Address | City/State/Zipcode | Phone Number | | Organization | | | | + + + + + | [facility] | [address] | [place] [address] | | | SERVICES, CORE | [address] [...] Note | + + | Service Account, [employer] Res In Interface - 09/27/2017 9:10 AM [...] [facility] | [address] | [place], [place] | | | [facility] | [address] | [address] | | | TESTS | | | [...] | OHP | [phone] | Medica | [phone] [address] [address] | | | PLUS | | id | [phone] | [place] [address] | | | OPEN | | | | | | | CARD | | | | | + +--------+ +--------+ + + | [facility] | BELIZEAN | [phone] | Agency | | | [...] | Self | [birth year] | Home: | [address] | | | al/Fam | | 1955 | [phone] [place] [address] | | | eryn | | | [phone] | | + +--------+ +--------+ + +
--- OUTSIDE RECORDS SUMMARY | ~2017-11-08 | XMS | Encounter Summary ---
Demographics + + + | Address | [address] | | | [place] [address] | + + + | Home Phone [...] + | Author | [facility] | + + + | Organization | [facility] | + [...] Team Providers + +------+ + | Care Impregnator And Drier Name | Role | Phone | + [...] | Kin, | | | | | Shortella | Casey, | Sharon Cole, | | | | | of breath | MD Elle | PA-C [address] | | | | | Procedures | [address] | [address] | | | | | CONSULT TO | [place] | [place], [place] | | | | | CARDIOLOGY | [address] | [address] | | | | | | [place], [place] | Phone: | | | | | | [address] | [phone] | | | | | | Phone: | Fax: | | | | | | [phone] | [phone] | | | | | | Fax: | | | | | | | [phone] | | +--------+--------+ + + + + Encounter Details +--------+---------+ + + + | Date | Type | Department | Care Team | Description | +--------+---------+ + + + | 11/01/ | Office | Cardiology General | Sharon Sanderson | Dyspnea, unspecified | | 2018 | Visit | at [facility] [address] | [address] | type (Primary Dx); | | | | [address] Mailcode: | [address] [facility], | Coronary artery | | | | [facility] | [place] [address] | disease involving | | | | Health and Healing, | [phone] | [place] coronary | | | | 9th Floor [place], | | artery, angina | | | | [place] [address] | | presence | | | | [phone] | | unspecified, | | | | | | unspecified whether | | | | | | [place] or | | | | | | [...] Pressure | 155/75 | 11/01/2017 9:02 AM PDT | + + + + | Pulse | 70 | 11/01/2017 9:02 AM PDT | + + + + | Temperature | 36.8 C (98.2 F) | 11/01/2017 9:02 AM PDT | + + + + | Respiratory Rate | - | - | + + + + | Oxygen Saturation | 98% | 11/01/2017 9:02 AM PDT | + + + + | Inhaled Oxygen | - | - | | Concentration | | | + + + + | Weight | 94.4 kg (208 lb 1.6 | 11/01/2017 9:02 AM PDT | | | oz) | | + + + + | Height | 180.3 cm (5' 11") | 11/01/2017 9:02 AM PDT | + + + + | Body Mass Index | 29.02 | 11/01/2017 9:02 AM PDT | + [...] + + + as of this encounter Instructions Patient Instructions - Sharon Sanderson PA-C - 11/01/2017 9:00 AM PDT1. Make sure you are taking metoprolol tartrate 25 mg twice daily 2. Start isosorbide mononitrate 30 mg each morning. If it gives you a headache then take a Tylenol 30 minutes before taking.in this encounter Progress Notes Sharon Sanderson PA-C - 11/01/2017 9:00 AM PDTFormatting of this note may be differen t from the original. CARDIOLOGY ENCOUNTER NOTE Reason [...] reports history of congestive heart failure namrata barrow his admission in July. He denies history of DVT/PE Patient reports chest pain in April that took him to local ED and was told it was his gallb ladder. He was transferred to another facility in [place] and went into atrial fibrillation. He had an angiogram at [facility] which showed severe CAD and medical treatment was recom mended. He denies palpitations, tachycardia, irregular heart beat, paroxysmal nocturnal dys pnea, lower extremity edema. He is smoking few cigarettes per day. He is not drinking alcohol. He has not smoked marijua na for two weeks. He had an echocardiogram on October 27, 2017 at [facility] which reports normal LV size and [...] inferior Q waves Outside records reviewed from [facility] (in media tab) Echo 10/27/17: 1. [...] well as continued risk for heart disease, [place]. Joyce ent advised to quit smoking prior to surgical intervention, preferably 1 month prior for opt imum outcome. Patient verbalized understanding of plan of care and instructions as outlined. A report of this preoperative evaluation will be sent to PCP Shakir Monzon MD and referring provider/surgeon Clinton Morillo MD and Michelle Gan MD. CARDIOLOGY - PREVENTIVE [address] Mailcode: [id number] [phone] in this encounter Plan of Treatment +--------+---------+ + + + | Date | Type | Specialty | Care Team | Description | +--------+---------+ + + + | 02/01/ | Office | Cardiology | Michelle Gan MD | | | 2018 | Visit | | [address] | | | | | | [address] | | | | | | [place], [place] | | | | | | [address] | | | | | | [phone] | | | | | | | [...] + + + in this encounter Results 12 LEAD ECG (11/01/2017 9:43 AM) [...] [facility] | [address] | [place], [place] | | | CARDIOLOGY | [address] | [address] | | + + + + + in this encounter Visit Diagnoses + + | Diagnosis | + + | Dyspnea, unspecified type - Primary | + + | Coronary artery disease involving [place] coronary artery, angina presence unspecified, | | unspecified whether [place] or transplanted heart | + + | Essential hypertension | + + | Pre-operative cardiovascular examination | + +
--- OUTSIDE RECORDS SUMMARY | ~2017-11-08 | XMS | Clinical Summary ---
Demographics + + + | Address | [address] | | | [place] [address] | + + + | Home Phone | | + + + | Preferred Language | Unknown | + + + | Marital Status | Unknown | + + + | Orthodox Affiliation | Unknown | + + + | Race | Unknown | + + + | Ethnic Group | Unknown | + + + Author + + + | Author | [facility] [employer] | + + + | Organization | [facility] [employer] [facility] | + + + | Address | Unknown | + + + | Phone | Unavailable | + + + Support + + +---------+ + | Name | Relationship | Address | Phone | + + +---------+ + | No,Contact | ECON | Unknown | | + + +---------+ + Care Team Providers + +------+ + | Care Envelope Press Operator Name | Role | Phone [...] whether | | | | | | yuhaaviatam or | | | | | | [...] whether | | | | | | yuhaaviatam or | | | | | | [...] whether | | | | | | yuhaaviatam or | | | | | | [...] 0.80 m/s | | | MV Dec Borden: 2.88 m/s2 MV DecT: 315.34 ms MV E Jordan: | | | 0.90 m/s MV E/A Ratio: 1.12 MV PHT: 91.45 ms MVA By | | | PHT: 2.40 cm2 Septal e': 0.08 m/s Septal E/e': 11.35 | | | RAP: 5 mmHg RVSP: 18.14 mmHg TR maxP.14 mmHg TR | | | Vmax: 1.81 m/s Construction Inspector: JUD Authenticated by: Aayna | | | Vicent[facility] Report Date/Time: 10-28-2017 12:48:42 | | + + + + + | Procedure Note | + + | Harjit, Rad Results In - 10/28/2017 12:51 PM PDT Patient Name: Kenyon Espinal of | | : 1955ccession: [id number] Physician: Ayana | | [facility] INDICATIONS------ | | -----CADCONCLUSIONS 1. The left [...] | | cmLVPWd: 0.85 cmLVOT Area: 3.94 [id number] Diam: 2.24 cm%FS: 34.03 %EF(Teich): | | [...] mlLAESV Index (A-L): 28.14 ml/m2LAAs A2C: 18.26 [id number] A-L A2C: 53.81 | | mlLALs A2C: 5.26 cmLAAs A4C: 20.28 [id number] A-L A4C: 66.58 mlLALs A4C: 5.24 | | cmRAAs: 20.48 [id number] A-L: 70.40 mlRAESV MOD: 63.59 mlRALs: 5.06 cmTAPSE: | | 2.02 cmAV maxP.52 mmHgAV meanP.83 mmHgAV Vmax: 1.83 m/Viv Vmean: 1.21 | | m/Viv VTI: 36.82 cmAVA Vmax: 2.09 cm2AVA (VTI): 2.36 dr0NBQM (Vmax): 0.00 | | cm2/m2AVAI (VTI): 0.00 cm2/m2LVOT maxP.80 mmHgLVOT meanP.09 mmHgLVSI Dopp: | | 40.90 ml/m2LVSV Dopp: 87.12 mlLVOT Vmax: 0.97 m/sLVOT Vmean: 0.68 m/sLVOT VTI: | | 22.11 cmMV A Jordan: 0.80 m/sMV Dec Borden: 2.88 m/s2MV DecT: 315.34 msMV E Jordan: | | 0.90 m/sMV E/A Ratio: 1.12 MV PHT: 91.45 msMVA By PHT: 2.40 [id number] e': 0.08 | | m/sSeptal E/e': 11.35 [...] A Jordan: 0.80 m/s | |MV Dec Borden: 2.88 m/s2 | |MV DecT: 315.34 ms | |MV E Jordan: 0.90 m/s | |MV E/A Ratio: 1.12 | |MV PHT: 91.45 ms | |MVA By PHT: 2.40 cm2 | |Septal e': 0.08 m/s | |Septal E/e': 11.35 | |RAP: 5 mmHg | |RVSP: 18.14 mmHg | |TR maxP.14 mmHg | |TR Vmax: 1.81 m/s | | | |Construction Inspector: JUD | |Authenticated by: Donaldcelsa Jose Francisco [...] + + + + + | [facility] | [address] | [place] [address] | | + + + + + from Last 3 Months Insurance + +--------+ +------+-------+---------+ | Payer | Benefi | Subscriber | Type | Phone | Address | | | t Plan | ID | | | | | | / | | | | | | | Group | | | | | + +--------+ +------+-------+---------+ | [facility] | YELLOW | [id number] | | | | | PLANS | [...] | Self | [birth year] | Home: | [address] | | | al/Fam | | 1955 | [phone] | [place] | | | eryn | | | [phone] | [phone] | + +--------+ +--------+ + +
--- OUTSIDE RECORDS SUMMARY | ~2017-11-08 | XMS | Encounter Summary ---
Demographics + + + | Address | [address] | | | [place] [address] | + + + | Home Phone [...] + | Author | [facility] [address] [facility] | + + + | Organization | [facility] | + + [...] Providers + +------+ + | Care Food Clerk Name | Role | Phone | [...] | | | | | MRI | [facility] | [facility] | | | | | [address] | Rd | Mailcode: | | | | | PH[address] | [facility] [place] | [address] | | | | | CONTRAST (+ | [phone] | [place] | | | | | [place]) | Phone: | Research | | | | | | [phone] | Center | | | | | | Fax: | [place], [place] | | | | | | [phone] | [address] | | | | | | | Phone: | | | | | | | [phone] | | | | | | | Fax: | | | | | | | [phone] | +--------+--------+ + + + + Reason [...] Visit | General Surgery at | [address] | Dx) | | | | PPV [address] | [address] [place], | | | | | [facility] | [place] [address] | | | | | Mailcode: L[address]A | [phone] | | | | | [address] | | | | | | [address] [place], [place] | | | | | | [address] | | | | | | [phone] | | | +--------+---------+ + + + [...] Pressure | 134/82 | 09/10/2017 2:16 PM PDT | + + + + | Pulse | 93 | 09/10/2017 2:16 PM PDT | + + + + | Temperature | 36.8 C (98.2 F) | 09/10/2017 2:16 PM PDT | + + + + | Respiratory Rate | 16 | 09/10/2017 2:16 PM PDT | + + + + | Oxygen Saturation | 99% | 09/10/2017 2:16 PM PDT | + + + + | Inhaled Oxygen | - | - | | Concentration | | | + + + + | Weight | 91.8 kg (202 lb 6.4 | 09/10/2017 2:16 PM PDT | | | oz) | | + + + + | Height | - | - | + + + + | Body Mass Index | 28.63 | 09/10/2017 2:16 PM PDT | + + + + [...] + as of this encounter Progress Notes Moustapah Schafer MD - 09/10/2017 2:30 PM PDT [...] the current cholecystostomy tube would address the brian hepatis collection. There are no [...] for surgical planning. Labs prior to next appointmentin this encounter Plan of Treatment +--------+---------+ + + + | Date | Type | Specialty | Care Team | Description | +--------+---------+ + + + | 02/01/ | Office | Cardiology | Michelle Gan MD | | | 2018 | Visit | | [address] [facility] | | | | | | [facility] | | | | | | [place], [place] | | | | | | [address] | | | | | | [phone] | | | | | | | | +--------+---------+ + + + + +--------+ + + | Name | Priori | Associated Diagnoses | Order Schedule | | | ty | | | + +--------+ + + | COMPLETE METABOLIC SET | Routin | Cholangitis | Expected: 09/10/2017 | | (NA,K,CL,CO2,BUN,CREAT,GLUC,CA, | e | | (Approximate), | | T,ALT,BILI TOTAL,ALK | | | Expires: 10/11/2018 | | PHOS,ALB,PROT TOTAL) | | | | + +--------+ + + as of this encounter Results MRI CHOLANGIOGRAPHY WWO CONTRAST (+ [place]) (09/24/2017 3:01 PM) + + + | Narrative | Performed At | + + + | EXAM: Abdomen MRI/MRCP without and with intravenous contrast. | [facility] | | HISTORY: 62-year-old man with decompensated HCV/EtOH cirrhosis status | RADIOLOGY VOICE | | post cholecystostomy for perforated gallbladder. Brian hepatis fluid | RECOGNITION 2 | | [...] Note | + + | Service Account, [employer] Res In Interface - 09/27/2017 9:10 AM PDT EXAM: Abdomen | | MRI/MRCP without and with intravenous contrast. HISTORY: 62-year-old man with | | decompensated HCV/EtOH cirrhosis status post cholecystostomy for perforated gallbladder. | | Brian hepatis fluid collection causing extrinsic compression of [...]
--- OUTSIDE RECORDS SUMMARY | ~2017-11-08 | XMS | Encounter Summary ---
Demographics + + + | Address | [address] | | | [place] [address] | + + + | Home Phone | | + + + | Preferred Language | Unknown | + + + | Marital Status | Unknown | + + + | Worship Affiliation | Unknown | + + + | Race | Unknown | + + + | Ethnic Group | Unknown | + + + Author + + + | Author | [facility] | + + + | Organization | [facility] | + + + | Address | Unknown | + + + | Phone | Unavailable | + + + Support + + +---------+ + | Name | Relationship | Address | Phone | + + +---------+ + | No,Contact | ECON | Unknown | | + + +---------+ + Care Team Providers + +------+ + | Care Hearing Aid Repairer Name | Role | Phone | [...] | 2018 | Procedure | ECHO | [address] | disease, angina | | | | | Way [place] | presence | | | | | [address] | unspecified, | | | | | | unspecified vessel | | | | | | or lesion type, | | | | | | unspecified whether | | | | | | [place] or | | | | | | [...] whether | | | | | | [place] or | | | | | | [...] 0.80 m/s | | | MV Dec Radford: 2.88 m/s2 MV DecT: 315.34 ms MV E Jordan: | | | 0.90 m/s MV E/A Ratio: 1.12 MV PHT: 91.45 ms MVA By | | | PHT: 2.40 cm2 Septal e': 0.08 m/s Septal E/e': 11.35 | | | RAP: 5 mmHg RVSP: 18.14 mmHg TR maxP.14 mmHg TR | | | Vmax: 1.81 m/s It Trainer: JUD Authenticated by: Ayana | | | [facility] Report Date/Time: 10-28-2017 12:48:42 | | + + + + + | Procedure Note | + + | Harjit, Rad Results In - 10/28/2017 12:51 PM PDT Patient Name: Kenyon Espinal of | | : 1955ccession: [id number] Physician: Ayana | | Alsamara INDICATIONS------ | [...] | | cmLVPWd: 0.85 cmLVOT Area: 3.94 [id number] Diam: 2.24 cm%FS: 34.03 %EF(Teich): | | [...] mlLAESV Index (A-L): 28.14 ml/m2LAAs A2C: 18.26 cc0CTKFF A-L A2C: 53.81 | | mlLALs A2C: 5.26 cmLAAs A4C: 20.28 qy3FJEHM A-L A4C: 66.58 mlLALs A4C: 5.24 | | cmRAAs: 20.48 gl9FSPKT A-L: 70.40 mlRAESV MOD: 63.59 mlRALs: 5.06 cmTAPSE: | | 2.02 cmAV maxP.52 mmHgAV meanP.83 mmHgAV Vmax: 1.83 m/Viv Vmean: 1.21 | | m/Viv VTI: 36.82 cmAVA Vmax: 2.09 cm2AVA (VTI): 2.36 oh3XIBZ (Vmax): 0.00 | | cm2/m2AVAI (VTI): 0.00 cm2/m2LVOT maxP.80 mmHgLVOT meanP.09 mmHgLVSI Dopp: | | 40.90 ml/m2LVSV Dopp: 87.12 mlLVOT Vmax: 0.97 m/sLVOT Vmean: 0.68 m/sLVOT VTI: | | 22.11 cmMV A Jordan: 0.80 m/sMV Dec Radford: 2.88 m/s2MV DecT: 315.34 msMV E Jordan: | | 0.90 m/sMV E/A Ratio: 1.12 MV PHT: 91.45 msMVA By PHT: 2.40 xs2Gcylon e': 0.08 | | m/sSeptal E/e': 11.35 RAP: 5 mmHgRVSP: 18.14 mmHgTR maxP.14 mmHgTR Vmax: | | 1.81 m/sSonographer: DBSAuthenticated by: Ayana [facility] hospitalReport Date/Time: 10-28-2017 | | 12:48:42IMPRESSION:1. The [...] A Jordan: 0.80 m/s | |MV Dec Radford: 2.88 m/s2 | |MV DecT: 315.34 ms | |MV E Jordan: 0.90 m/s | |MV E/A Ratio: 1.12 | |MV PHT: 91.45 ms | |MVA By PHT: 2.40 cm2 | |Septal e': 0.08 m/s | |Septal E/e': 11.35 | |RAP: 5 mmHg | |RVSP: 18.14 mmHg | |TR maxP.14 mmHg | |TR Vmax: 1.81 m/s | | | |It Trainer: JUD | |Authenticated by: Ayana Felton | [...] | + + + + + | [facility] | [address] | [place] [address] | | + + + + + in this encounter Visit Diagnoses + + | Diagnosis | + + | Coronary artery disease, angina presence unspecified, unspecified vessel or lesion | | type, unspecified whether [place] or transplanted heart | + +"
--- OUTSIDE RECORDS SUMMARY | ~2017-11-08 | XMS | Encounter Summary ---
Demographics + + + | Address | [address] | | | [place] [address] | + + + | Home Phone [...] Author + + + | Author | [facility] [employer] [facility] | + + + | Organization | [facility] | + + + | Address | Unknown | + + + | Phone | Unavailable | + + + Support + + +---------+ + | Name | Relationship | Address | Phone | + + +---------+ + | CAMRON OCHOA | ECON | Unknown | | + + +---------+ + Care Team Providers + +------+ + | Care Multiple Games Dealer Name | Role | Phone | [...] | | Center at [facility] 6th | PA-C [address] | Review | | | | Floor [address] | [address] | | | | | Evelyn Mailcode: CH6D | [place], [place] | | | | | [facility] | [address] | | | | | and Healing, 6th | [phone] | | | | | Floor [place], [place] | | | | | | [address] | | | | | | [phone] | | | +--------+ + + + [...] Rd | | | | | | [place] | | | | | | [address] | | | | | | [phone] | | | | | | | | +--------+---------+ + + + as of this encounter Visit Diagnoses Not on filein this encounter"
--- OUTSIDE RECORDS SUMMARY | ~2017-11-08 | XMS | Clinical Summary ---
Demographics + + + | Address | [address] | | | [place] [address] | + + + | Home Phone [...] | Author | [facility] | | | and Calana | + + + | Organization | [facility] | | | and Calana | [...] Providers + +------+ + | Care Farm Specialist Name | Role | Phone | [...] +---------+ | [place] | MEDICA | [id number] | Medica | [phone] | | | [place] | | id | [phone] | | | | PLUS | | | | | + +--------+ +--------+ +---------+ | [employer] [facility] | IHS | [id number] | Indemn | | | | SERVICE [...] | Self | [birth year] | Home: | [address] | | | al/Fam | | 1955 | [phone] | [place] [address] | | | eryn | | | [phone] | | + +--------+ +--------+ + +
--- OUTSIDE RECORDS SUMMARY | ~2017-11-08 | XMS | Encounter Summary ---
Demographics + + + | Address | [address] | | | [place] [address] | + + + | Home Phone | | + + + | Preferred Language | Unknown | + + + | Marital Status | Unknown | + + + | Amish Affiliation | Unknown | + + + | Race | Unknown | + + + | Ethnic Group | Unknown | + + + Author + + + | Author | [facility] | + + + | Organization | [facility] | + + + | Address | Unknown | + + + | Phone | Unavailable | + + + Support + + +---------+ + | Name | Relationship | Address | Phone | + + +---------+ + | No,Contact | ECON | Unknown | | + + +---------+ + Care Team Providers + +------+ + | Care Belt Changer Name | Role | Phone | + [...] | 2018 | Orders | ECHO | [address] | disease, angina | | | | | Way [place], [place] | presence | | | | | [phone] | unspecified, | | | | | | unspecified vessel | | | | | | or lesion type, | | | | | | unspecified whether | | | | | | [place] or | | | | | | [...] Bret Espinal Date of : 1955 | [facility] | | Performing Physician: Ayana Felton | [...] 0.80 m/s | | | MV Dec [place]: 2.88 m/s2 MV DecT: 315.34 ms MV E Jordan: | | | 0.90 m/s MV E/A Ratio: 1.12 MV PHT: 91.45 ms MVA By | | | PHT: 2.40 cm2 Septal e': 0.08 m/s Septal E/e': 11.35 | | | RAP: 5 mmHg RVSP: 18.14 mmHg TR maxP.14 mmHg TR | | | Vmax: 1.81 m/s Surveillance Specialist: JUD Authenticated by: Ayana | | | [facility] Report Date/Time: 10-28-2017 12:48:42 | | + + + + + | Procedure Note | + + | Harjit, Rad Results In - 10/28/2017 12:51 PM PDT Patient Name: Kenyon Espinal of | | : 1955ccession: [id number] Physician: Ayana | | [facility] INDICATIONS------ [...] | | cmLVPWd: 0.85 cmLVOT Area: 3.94 vx3LILQ Diam: 2.24 cm%FS: 34.03 %EF(Teich): | | [...] mlLAESV Index (A-L): 28.14 ml/m2LAAs A2C: 18.26 vs1HOLPG A-L A2C: 53.81 | | mlLALs A2C: 5.26 cmLAAs A4C: 20.28 qh9JQDTR A-L A4C: 66.58 mlLALs A4C: 5.24 | | cmRAAs: 20.48 am4RFQJN A-L: 70.40 mlRAESV MOD: 63.59 mlRALs: 5.06 cmTAPSE: | | 2.02 cmAV maxP.52 mmHgAV meanP.83 mmHgAV Vmax: 1.83 m/Viv Vmean: 1.21 | | m/Viv VTI: 36.82 cmAVA Vmax: 2.09 cm2AVA (VTI): 2.36 yk0FVBK (Vmax): 0.00 | | cm2/m2AVAI (VTI): 0.00 cm2/m2LVOT maxP.80 mmHgLVOT meanP.09 mmHgLVSI Dopp: | | 40.90 ml/m2LVSV Dopp: 87.12 mlLVOT Vmax: 0.97 m/sLVOT Vmean: 0.68 m/sLVOT VTI: | | 22.11 cmMV A Jordan: 0.80 m/sMV Dec [place]: 2.88 m/s2MV DecT: 315.34 msMV E Jordan: | | 0.90 m/sMV E/A Ratio: 1.12 MV PHT: 91.45 msMVA By PHT: 2.40 yz4Jruhlu e': 0.08 | | m/sSeptal E/e': 11.35 RAP: 5 mmHgRVSP: 18.14 mmHgTR maxP.14 mmHgTR Vmax: | | 1.81 m/sSonographer: DBSAuthenticated by: Ayana Alsgrand junctionraReport Date/Time: 10-28-2017 | | 12:48:42IMPRESSION:1. The left [...] A Jordan: 0.80 m/s | |MV Dec [place]: 2.88 m/s2 | |MV DecT: 315.34 ms | |MV E Jordan: 0.90 m/s | |MV E/A Ratio: 1.12 | |MV PHT: 91.45 ms | |MVA By PHT: 2.40 cm2 | |Septal e': 0.08 m/s | |Septal E/e': 11.35 | |RAP: 5 mmHg | |RVSP: 18.14 mmHg | |TR maxP.14 mmHg | |TR Vmax: 1.81 m/s | | | |Surveillance Specialist: DBS | |Authenticated by: Ayana Felton | [...] | + + + + + | [facility] | [address] | [place] [address] | | + + + + + in this encounter Visit Diagnoses + + | Diagnosis | + + | Coronary artery disease, angina presence unspecified, unspecified vessel or lesion | | type, unspecified whether [place] or transplanted heart | + +"
--- OUTSIDE RECORDS SUMMARY | ~2017-11-08 | XMS | Encounter Summary ---
Demographics + + + | Address | [address] | | | [place] [address] | + + + | Home Phone [...] + + + | Author | [email or web address] [facility] | + + + | Organization | [facility] | + + + | Address | Unknown | + + + | Phone | Unavailable | + + + Support + + +---------+ + | Name | Relationship | Address | Phone | + + +---------+ + | CAMRON OCHOA | ECON | Unknown | | + + +---------+ + Care Team Providers + +------+ + | Care Senior Quality Methods Specialist Name | Role | Phone | [...] | | | | | MRI | [facility] | [facility] | | | | | [address] | Rd | Mailcode: | | | | | [address] | [facility] [place] | [address] | | | | | CONTRAST (+ | [address] | [place] | | | | | [place]) | Phone: | Research | | | | | | [phone] | Center | | | | | | Fax: | [place], [place] | | | | | | [phone] | [address] | | | | | | | Phone: | | | | | | | [phone] | | | | | | | Fax: | | | | | | | [phone] | +--------+--------+ + + + + Reason [...] [address] | [address] [place], | | | | | [facility] | [place] [address] | | | | | Mailcode: [id number] | [phone] | | | | | [address] | | | | | | [address] [place], [place] | | | | | | [address] | | | | | | [phone] | | | +--------+---------+ + + + [...] + as of this encounter Progress Notes Moustapha [...] | 2018 | Visit | | [address] [facility] | | | | | | [facility] | | | | | | [place], [place] | | | | | | [address] | | | | | | [phone] | | | | | | | [...] Note | + + | Service Account, [employer] Res In Interface - 09/27/2017 9:10 [...]
--- OUTSIDE RECORDS SUMMARY | ~2017-11-08 | XMS | Encounter Summary ---
Demographics + + + | Address | [address] | | | [place] [address] | + + + | Home Phone [...] [facility] [email or web address] [facility] | + + + | Organization | [facility] [facility] | + + + | Address | Unknown | + + + | Phone | Unavailable | + + + Support + + +---------+ + | Name | Relationship | Address | Phone | + + +---------+ + | CAMRON OCHOA | ECON | Unknown | | + + +---------+ + Care Team Providers + +------+ + | Care College And Career Counselor Name | Role | Phone | + [...] | | | Procedures | [address] | [address] | | | | | CONSULT TO | [place] | [place], [place] | | | | | CARDIOLOGY | [address] | [address] | | | | | | [place], [place] | Phone: | | | | | | [address] | [phone] | | | | | | Phone: | Fax: | | | | | | [phone] | [phone] | | | | | | Fax: | | | | | | | [phone] | | +--------+--------+ + + + + Encounter Details +--------+---------+ + + + | Date | Type | Department | Care Team | Description | +--------+---------+ + + + | 11/01/ | Office | Cardiology General | Sharon Sanderson | Dyspnea, unspecified | | 2018 | Visit | at [facility] [address] | [address] | type (Primary Dx); | | | | [address] Mailcode: | [address] [facility], | Coronary artery | | | | [facility] | [place] [address] | disease involving | | | | Health and Healing, | [phone] | gakona coronary | | | | 9th Floor [place], | | artery, angina | | | | [place] [address] | | presence | | | | [phone] | | unspecified, | | | | | | unspecified whether | | | | | | [place] or | | | | | | [...] He was transferred to another facility in [place] and went into atrial fibrillation. He had an angiogram at [place] which showed severe CAD and medical treatment was recom mended. He denies palpitations, tachycardia, irregular heart beat, paroxysmal nocturnal dys pnea, lower extremity edema. He is smoking few cigarettes per day. He is not drinking alcohol. He has not smoked marijua na for two weeks. He had an echocardiogram on October 27, 2017 at [facility] which reports normal LV size and [...] Q waves Outside records reviewed from [facility] (in media tab) Echo 10/27/17: 1. [...] well as continued risk for heart disease, [place]. Joyce ent advised to quit smoking prior to surgical intervention, preferably 1 month prior for opt imum outcome. Patient verbalized understanding of plan of care and instructions as outlined. A report of this preoperative evaluation will be sent to PCP Shakir Monzon MD and referring provider/surgeon Clinton Morillo MD and Michelle Gan MD. CARDIOLOGY - PREVENTIVE [address] Mailcode: [id number] [facility] [phone] in this encounter Plan of Treatment +--------+---------+ + + + | Date | Type | Specialty | Care Team | Description | +--------+---------+ + + + | 02/01/ | Office | Cardiology | Michelle Gan MD | | | 2018 | Visit | | [address] | | | | | | [address] | | | | | | [place], [place] | | | | | | [address] | | | | | | [phone] | | | | | | | [...] [place] OF | [address] | [place], [place] | | | CARDIOLOGY | [address] | [address] | | + + + + + in this encounter Visit Diagnoses + + | Diagnosis | + + | Dyspnea, unspecified type - Primary | + + | Coronary artery disease involving gakona coronary artery, angina presence unspecified, | | unspecified whether g[place] or transplanted heart | + + | Essential hypertension | + + | Pre-operative cardiovascular examination | + +
--- OUTSIDE RECORDS SUMMARY | ~2017-11-08 | XMS | Encounter Summary ---
Demographics + + + | Address | [address] | | | [place] [address] | + + + | Home Phone [...] + + | Author | [facility] | + + + | Organization | [facility] | + + + | Address | Unknown | + + + | Phone | Unavailable | + + + Support + + +---------+ + | Name | Relationship | Address | Phone | + + +---------+ + | CAMRON OCHOA | ECON | Unknown | | + + +---------+ + Care Team Providers + +------+ + | Care Gizzard Peeler Name | Role | Phone | + [...] | | | | | [address] [place] | | | | | | [place] [address] | | | +--------+--------+ + + + [...] | 2018 | Visit | | [address] [facility] | | | | | | [address] | | | | | | [place], [place] | | | | | | [address] | | | | | | [phone] | | | | | | | | +--------+---------+ + + + as of this encounter Visit Diagnoses Not on filein this encounter"
--- OUTSIDE RECORDS SUMMARY | ~2017-11-08 | XMS | Encounter Summary ---
Demographics + + + | Address | [address] | | | [place] [address] | + + + | Home Phone [...] + | Author | [facility] [facility] | + + + | Organization | [facility] [employer] [facility] | + + + | Address | Unknown | + + + | Phone | Unavailable | + + + Support + + +---------+ + | Name | Relationship | Address | Phone | + + +---------+ + | CAMRON OCHOA | ECON | Unknown | | + + +---------+ + Care Team Providers + +------+ + | Care Hop Weigher Name | Role | Phone | + +------+ + | Shakir Monzon MD | PCP | | + +------+ + Encounter Details +--------+ + + + + | Date | Type | Department | Care Team | Description | +--------+ + + + + | 08/07/ | Procedure | Diagnostic Imaging | | | | 2018 | Pass | Services at [facility] | | | | | | [address] | | | | | | [facility] | | | | | | Mailcode: [id number] [facility] | | | | | | [facility], | | | | | | [place] [address] | | | | | | [phone] | | | +--------+ + + + [...] | 2017 | Visit | | [address] [facility] | | | | | | [address] | | | | | | [place], [place] | | | | | | [address] | | | | | | [phone] | | | | | | | | +--------+---------+ + + + as of this encounter Visit Diagnoses Not on filein this encounter"
--- OUTSIDE RECORDS SUMMARY | ~2017-11-08 | XMS | Encounter Summary ---
Demographics + + + | Address | [address] | | | [place] [address] | + + + | Home Phone [...] Author | [facility] | + + + | Organization | [facility] | + + + | Address | Unknown | + + + | Phone | Unavailable | + + + Support + + +---------+ + | Name | Relationship | Address | Phone | + + +---------+ + | CAMRON OCHOA | ECON | Unknown | | + + +---------+ + Care Team Providers + +------+ + | Care On Site Nurse Name | Role | Phone | [...] | | cirrhosis, | MD Elle | [facility] [address] | | | | | unspecified | [address] | [address] | | | | | hepatic | Hill | Mailcode: | | | | | cirrhosis | [address] | [facility] | | | | | type, | [place], [place] | for Health | | | | | unspecified | [address] | and Healing, | | | | | whether | Phone: | 6th Floor | | | | | ascites | [phone] | [place], [place] | | | | | present | Fax: | [phone] | | | | | (HCC) | [phone] | Phone: | | | | | Procedures | | [phone] | | | | | CONSULT TO | | Fax: | | | | | HEPATOLOGY | | [phone] | +--------+--------+ + + + + Consultation [...] | | CONSULT TO | Renato | [place], [place] | | | | | CARDIOLOGY | [address] | [address] | | | | | | [place], [place] | Phone: | | | | | | [address] | [phone] | | | | | | Phone: | Fax: | | | | | | [phone] | [phone] | | | | | | Fax: | | | | | | | [phone] | | +--------+--------+ + + + + [...] | | | | | ECHOCARDIOGR | [place], [place] | | | | | | AM, ADULT | [address] | | | | | | | Phone: | | | | | | | [phone] | | | | | | | Fax: | | | | | | | [phone] | | + +--------+ + + + [...] | | Perforation | [address] | [facility] Center | | | | | of | Mailcode: | for Health | | | | | gallbladder | [id number] | and Healing, | | | | | | Phsyicians | 6th floor | | | | | | [address] | [place], [place] | | | | | | [place], | [address] | | | | | | [place] | Phone: | | | | | | [address] | [phone] | | | | | | Phone: | Fax: | | | | | | [phone] | [phone] | | | | | | Fax: | | | | | | | [phone] | | + +--------+ + + + + Encounter Details +--------+---------+ + + + | Date | Type | Department | Care Team | Description | +--------+---------+ + + + | 10/13/ | Office | Digestive Health | Clinton Morillo, | Shortness of breath | | 2018 | Visit | Center [address] | [address] | (Primary Dx); | | | | Rolando Rivas Mailcode: | [address] | Hepatic cirrhosis, | | | | [facility] Center for | [place], [place] | unspecified hepatic | | | | Health and Healing, | [address] | cirrhosis type, | | | | 6th floor [place], | [phone] | unspecified whether | | | | [place] [address] | | ascites present | | | | [phone] | | ([facility]) | +--------+---------+ + + + Social History [...] such information, when appropriate Clinton Morillo M.D. [facility] & [facility] [place] ([facility]) Professor and Vice-Beef Breaker of Surgery The Mirza Gamboa Chair for Pancreatic Disease Research [facility] [place] Cell phone: [phone] / [facility] provider's line [phone]. email: [email or web address] Elle Peña MD - 10/13/2017 10:10 AM [...] to the hospital and was transferred to [facility] for further care. During this hospitalization he was septic with some acute hepatic in jury and required a cholecystostomy tube to control his sepsis. He recovered and has been at home with the cholecystostomy tube. Due to his severe systemic disease and cirrhosis, he w as referred back to [facility] for surgery. He reports getting around ok [...] | 2018 | Visit | | [address] [facility] | | | | | | [facility] | | | | | | [place], [place] | | | | | | [address] | | | | | | [phone] | | | | | | | [...]
--- OUTSIDE RECORDS SUMMARY | ~2017-11-08 | XMS | Encounter Summary ---
Demographics + + + | Address | [address] | | | [place] [address] | + + + | Home Phone | | + + + | Preferred Language | Unknown | + + + | Marital Status | Unknown | + + + | Shinto Affiliation | Unknown | + + + | Race | Unknown | + + + | Ethnic Group | Unknown | + + + Author + + + | Author | [facility] [employer] | + + + | Organization | [facility] [employer] | + + + | Address | Unknown | + + + | Phone | Unavailable | + + + Support + + +---------+ + | Name | Relationship | Address | Phone | + + +---------+ + | No,Contact | ECON | Unknown | | + + +---------+ + Care Team Providers + +------+ + | Care Hydroelectric Component Machinist Name | Role | Phone | + [...] | 2018 | Procedure | ECHO | [address] | disease, angina | | | | | Way [place] | presence | | | | | [address] | unspecified, | | | | | | unspecified vessel | | | | | | or lesion type, | | | | | | unspecified whether | | | | | | circle or | | | | | | [...] whether | | | | | | circle or | | | | | | [...] 0.80 m/s | | | MV Dec Dewey: 2.88 m/s2 MV DecT: 315.34 ms MV E Jordan: | | | 0.90 m/s MV E/A Ratio: 1.12 MV PHT: 91.45 ms MVA By | | | PHT: 2.40 cm2 Septal e': 0.08 m/s Septal E/e': 11.35 | | | RAP: 5 mmHg RVSP: 18.14 mmHg TR maxP.14 mmHg TR | | | Vmax: 1.81 m/s Sales Representative [employer]: JUD Authenticated by: Ayana | | | [facility] Report Date/Time: 10-28-2017 12:48:42 | | + + + + + | Procedure Note | + + | Harjit, Rad Results In - 10/28/2017 12:51 PM PDT Patient Name: Kenyon Espinal of | | : 1955ccession: [id number] Physician: Ayana | | Alsamara INDICATIONS------ | [...] | | cmLVPWd: 0.85 cmLVOT Area: 3.94 [id number] Diam: 2.24 cm%FS: 34.03 %EF(Teich): | | [...] mlLAESV Index (A-L): 28.14 ml/m2LAAs A2C: 18.26 he2MQASX A-L A2C: 53.81 | | mlLALs A2C: 5.26 cmLAAs A4C: 20.28 xr7MPZYF A-L A4C: 66.58 mlLALs A4C: 5.24 | | cmRAAs: 20.48 dw5BBEVR A-L: 70.40 mlRAESV MOD: 63.59 mlRALs: 5.06 cmTAPSE: | | 2.02 cmAV maxP.52 mmHgAV meanP.83 mmHgAV Vmax: 1.83 m/Viv Vmean: 1.21 | | m/Viv VTI: 36.82 cmAVA Vmax: 2.09 cm2AVA (VTI): 2.36 od0GADZ (Vmax): 0.00 | | cm2/m2AVAI (VTI): 0.00 cm2/m2LVOT maxP.80 mmHgLVOT meanP.09 mmHgLVSI Dopp: | | 40.90 ml/m2LVSV Dopp: 87.12 mlLVOT Vmax: 0.97 m/sLVOT Vmean: 0.68 m/sLVOT VTI: | | 22.11 cmMV A Jordan: 0.80 m/sMV Dec Dewey: 2.88 m/s2MV DecT: 315.34 msMV E Jordan: | | 0.90 m/sMV E/A Ratio: 1.12 MV PHT: 91.45 msMVA By PHT: 2.40 rd6Kspqpa e': 0.08 | | m/sSeptal E/e': 11.35 RAP: 5 mmHgRVSP: 18.14 mmHgTR maxP.14 mmHgTR Vmax: | | 1.81 m/sSonographer: DBSAuthenticated by: Ayana [facility] Date/Time: 10-28-2017 | | 12:48:42IMPRESSION:1. The [...] A Jordan: 0.80 m/s | |MV Dec Dewey: 2.88 m/s2 | |MV DecT: 315.34 ms | |MV E Jordan: 0.90 m/s | |MV E/A Ratio: 1.12 | |MV PHT: 91.45 ms | |MVA By PHT: 2.40 cm2 | |Septal e': 0.08 m/s | |Septal E/e': 11.35 | |RAP: 5 mmHg | |RVSP: 18.14 mmHg | |TR maxP.14 mmHg | |TR Vmax: 1.81 m/s | | | |Sales Representative [employer] Products: JUD | |Authenticated by: Ayana Felton | [...] + + + + + | [facility] | [address] | [place] [address] | | + + + + + in this encounter Visit Diagnoses + + | Diagnosis | + + | Coronary artery disease, angina presence unspecified, unspecified vessel or lesion | | type, unspecified whether circle or transplanted heart | + +"
--- OUTSIDE RECORDS SUMMARY | ~2017-11-08 | XMS | Encounter Summary ---
Demographics + + + | Address | [address] | | | [place] [address] | + + + | Home Phone [...] [facility] | + + + | Organization | [facility] | + + + | Address | Unknown | + + + | Phone | Unavailable | + + + Support + + +---------+ + | Name | Relationship | Address | Phone | + + +---------+ + | CAMRON OCHOA | ECON | Unknown | | + + +---------+ + Care Team Providers + +------+ + | Care Ecmo Specialist Name | Role | Phone | + +------+ + | Shakir Monzon MD | PCP | | + +------+ + Encounter Details +--------+------+ + + + | Date | Type | Department | Care Team | Description | +--------+------+ + + + | 10/13/ | Lab | Laboratory at [facility] | | Cirrhosis of liver | | 2017 | | 3rd Floor [address] | | without ascites, | | | | [place], | | unspecified hepatic | | | | [place] [address] | | cirrhosis type (HCC) | | | | [phone] | | | +--------+------+ + + + [...] | 2018 | Visit | | [address] [facility] | | | | | | [address] | | | | | | [place], [place] | | | | | | [address] | | | | | | [phone] | | | | | | | [...] | 3.50 - 10.80 K/cu mm | [facility] | | | | | SERVICES, CORE | + + + + + | RED CELL COUNT | 4.40 (L) | 4.50 - 6.00 M/cu mm | [facility] | | | | | SERVICES, [...] 92.0 | 80.0 - 100.0 fL | [facility] | | | | | SERVICES, CORE | + + + + + | MCHC | 34.6 | 32.0 - 36.0 g/dL | [facility] | | | | | SERVICES, CORE | + + + + + | RDW SD | 46.9 (H) | 35.1 - 46.3 fL | [facility] | | | | | SERVICES, [...] | + + + + + | [facility] | [address] | [place] [address] | | | SERVICES, CORE | PARVEEN [...] [facility] | [address] | [place] [address] | | | SERVICES, CORE | [address] | | | + + + + + INR (10/13/2017 9:49 AM) + +-------+ + + | Component | Value | Ref Range | Performed At | + +-------+ + + | INR | 1.11 | 0.90 - 1.20 INR | [facility] | | | | | [...] | + + + + + | [facility] | [address] [facility] | [place] [address] | | | SERVICES, CORE | PARVEEN [...] >60 mL/min | [facility] | | [facility]IAN | | | MICHEAL CORE | + +---------+ + + | EGFR NON | >60 | >60 mL/min | [facility] | | -[facility]IAN | | | SERVICES, CORE | + [...] | | PLASMA (LAB) | | | [facility], CORE | + +---------+ + + [...] the MDRD equation recommended by the | [facility] | | National Kidney Disease Education [...] | + + + + + | [facility] | [address] | [place] [address] | | | SERVICES, CORE | [address] | | | + + + + + in this encounter Visit Diagnoses + + | Diagnosis | + + | Cirrhosis of liver without ascites, unspecified hepatic cirrhosis type (HCC) | + +"
--- OUTSIDE RECORDS SUMMARY | ~2017-11-08 | XMS | Encounter Summary ---
Demographics + + + | Address | [address] | | | [place] [address] | + + + | Home Phone [...] + | Author | [email or web address] | + + + | Organization | [facility] | + + + | Address | Unknown | + + + | Phone | Unavailable | + + + Support + + +---------+ + | Name | Relationship | Address | Phone | + + +---------+ + | CAMRON OCHOA | ECON | Unknown | | + + +---------+ + Care Team Providers + +------+ + | Care Pararescue Manager Name | Role | Phone | [...] PPV [address] | [address] [facility], | | | | | [facility] | [place] [address] | | | | | Mailcode: L[address]A | [phone] | | | | | Nikkie Mazariegos | | | | | | [address] [place], [place] | | | | | | [address] | | | | | | [phone] | | | +--------+ + + + [...] | 2017 | Visit | | [address] [facility] | | | | | | [address] | | | | | | [place], [place] | | | | | | [address] | | | | | | [phone] | | | | | | | | +--------+---------+ + + + as of this encounter Visit Diagnoses Not on filein this encounter"
--- OUTSIDE RECORDS SUMMARY | ~2017-11-08 | XMS | Encounter Summary ---
Demographics + + + | Address | [address] | | | [place] [address] | + + + | Home Phone | | + + + | Preferred Language | Unknown | + + + | Marital Status | Single | + + + | Judaism Affiliation | NRP | + + + | Race | or | + + + | Ethnic Group | Not or | + + + Author + + + | Author | [facility] | + + + | Organization | [facility] | + + + | Address | Unknown | + + + | Phone | Unavailable | + + + Support + + +---------+ + | Name | Relationship | Address | Phone | + + +---------+ + | CAMRON OCHOA | ECON | Unknown | | + + +---------+ + Care Team Providers + +------+ + | Care Parker Name | Role | Phone | + [...] 2018 | | General Surgery at | [facility] | | | | | PPV [address] [facility] | Road [place], [place] | | | | | [facility] [address] | [address] | | | | | Mailcode: L[address]A | | | | | | Nikkie Mazariegos | | | | | | [address] [place], [place] | | | | | | [address] | | | | | | [phone] | | | +--------+ + + + [...] Rd | | | | | | [place], [place] | | | | | | [address] | | | | | | [phone] | | | | | | | [...]
--- OUTSIDE RECORDS SUMMARY | ~2017-11-08 | XMS | Encounter Summary ---
Demographics + + + | Address | [address] | | | [place] [address] | + + + | Home Phone [...] + | Author | [facility] | | | and Calana | + + + | Organization | [facility] | | | and Calana [...] Team Providers + +------+ + | Care Ppap Coordinator Name | Role | Phone | [...] | Clinton Srinivasan MD | [address] | | | | | of breath | [address] | [place] | | | | | Procedures | [address] | | | | | ECHO | [address] | [address] | | | | | Complete [place] | [place], [place] | Phone: | | | | | ECHO HEART | [address] | [phone] | | | | | [place] | Phone: | Fax: | | | | | [address] | [phone] | [phone] | | | | | [place] | Fax: | | | | | | ECHO HEART | [phone] | | | | | | [place] [...] Orders | CARDIOLOGY [address] | [address] [facility] | | | | | [place], | [address] | | | | | [place] [address] | [place], [place] | | | | | [phone] | [address] | | | | | | [phone] | | | | | | | [...]
--- OUTSIDE RECORDS SUMMARY | ~2017-11-08 | XMS | Encounter Summary ---
Demographics + + + | Address | [address] | | | [place] [address] | + + + | Home Phone [...] + + | Author | [facility] | + + + | Organization | [facility] | + + [...] Providers + +------+ + | Care Assembler Fluorescent Lights Name | Role | Phone | + [...] [address] | | | | | [place] for | [place], [place] | | | | | Health and Healing, | [address] | | | | | 6th floor [place], | [phone] | | | | | [place] [address] | | | | | | [phone] | | | +--------+ + + + [...] | 2018 | Visit | | [address] [facility] | | | | | | [address] | | | | | | [place], [place] | | | | | | [address] | | | | | | [phone] | | | | | | | | +--------+---------+ + + + as of this encounter Visit Diagnoses Not on filein this encounter"
--- OUTSIDE RECORDS SUMMARY | ~2017-11-08 | XMS | Encounter Summary ---
Demographics + + + | Address | [address] | | | [place] [address] | + + + | Home Phone [...] + | Author | [facility] | + + + | Organization | [facility] | + + + | Address | Unknown | + + + | Phone | Unavailable | + + + Support + + +---------+ + | Name | Relationship | Address | Phone | + + +---------+ + | CAMRON OCHOA | ECON | Unknown | | + + +---------+ + Care Team Providers + +------+ + | Care Leisure Studies Professor Name | Role | Phone | [...] | 2018 | | at [facility] [address] PA[address]C [address] | | | | | [address]lando Rivas Mailcode: | Rolando Rivas [place], | | | | | [facility] | [place] [address] | | | | | Health and Healing, | [phone] | | | | | 9 Floor [place], | | | | | | [place] [address] | | | | | | [phone] | | | +--------+ + + + [...] [place] | | | | | | [address] | | | | | | [phone] | | | | | | | | +--------+---------+ + + + as of this encounter Visit Diagnoses Not on filein this encounter"
--- OUTSIDE RECORDS SUMMARY | ~2017-11-08 | XMS | Encounter Summary ---
Demographics + + + | Address | [address] | | | [place] [address] | + + + | Home Phone [...] + | Author | [facility] | + + + | Organization | [facility] | + + + | Address | Unknown | + + + | Phone | Unavailable | + + + Support + + +---------+ + | Name | Relationship | Address | Phone | + + +---------+ + | CAMRON OCHOA | ECON | Unknown | | + + +---------+ + Care Team Providers + +------+ + | Care Cash Applications Associate Name | Role | Phone | + +------+ + | Shakir Monzon MD | PCP | | + +------+ + Encounter Details +--------+ + + + + | Date | Type | Department | Care Team | Description | +--------+ + + + + | 11/01/ | Abstract | Cardiology General | Sharon Sanderson | | | 2018 | | at [facility] [address] | | | | | Rol[address] Rivas Mailcode: | Rolando Rivas [place], | | | | | [facility] | [place] [address] | | | | | Health and Healing, | [phone] | | | | | 9 Floor [place], | | | | | | [place] [address] | | | | | | [phone] | | | +--------+ + + + [...] [place] | | | | | | [address] | | | | | | [phone] | | | | | | | | +--------+---------+ + + + as of this encounter Visit Diagnoses Not on filein this encounter"
--- OUTSIDE RECORDS SUMMARY | ~2017-11-08 | XMS | Encounter Summary ---
Demographics + + + | Address | [address] | | | [place] [address] | + + + | Home Phone [...] + + + | Author | [facility] | + + + | Organization | [facility] [email or web address] | + + + | Address | Unknown | + + + | Phone | Unavailable | + + + Support + + +---------+ + | Name | Relationship | Address | Phone | + + +---------+ + | CAMRON OCHOA | ECON | Unknown | | + + +---------+ + Care Team Providers + +------+ + | Care Educational Program Director Name | Role | Phone | [...] | | | | CONSULT TO | [place] | [place], [place] | | | | | CARDIOLOGY | [address] | [address] | | | | | | [place], [place] | Phone: | | | | | | [address] | [phone] | | | | | | Phone: | Fax: | | | | | | [phone] | [phone] | | | | | | Fax: | | | | | | | [phone] | | +--------+--------+ + + + + Encounter Details +--------+---------+ + + + | Date | Type | Department | Care Team | Description | +--------+---------+ + + + | 11/01/ | Office | Cardiology General | Sharon Sanderson | Dyspnea, unspecified | | 2018 | Visit | at [facility] [address] | [address] | type (Primary Dx); | | | | Rolando Rivas Mailcode: | Rolando Rivas [facility], | Coronary artery | | | | [facility] | [place] [address] | disease involving | | | | Health and Healing, | [phone] | [place] coronary | | | | 9th Floor [place], | | artery, angina | | | | [place] [address] | | presence | | | | [phone] | | unspecified, | | | | | | unspecified whether | | | | | | [place] or | | | | | | [...] He was transferred to another facility in [place] and went into atrial fibrillation. He had an angiogram at [place] which showed severe CAD and medical treatment was recom mended. He denies palpitations, tachycardia, irregular heart beat, paroxysmal nocturnal dys pnea, lower extremity edema. He is smoking few cigarettes per day. He is not drinking alcohol. He has not smoked marijua na for two weeks. He had an echocardiogram on October 27, 2017 at [facility] which reports normal LV size and [...] well as continued risk for heart disease, [place]. Joyce ent advised to quit smoking prior [...] Rolando Rivas Mailcode: [id number] [id number] in this encounter Plan of Treatment +--------+---------+ + + + | Date | Type | Specialty | Care Team | Description | +--------+---------+ + + + | 02/01/ | Office | Cardiology | Michelle Gan MD | | | 2018 | Visit | | [address] | | | | | | [address] | | | | | | [place], [place] | | | | | | [address] | | | | | | [phone] | | | | | | | [...] [place] [facility] | [address] | [place], [place] | | | CARDIOLOGY | [address] | [address] | | + + + + + in this encounter Visit Diagnoses + + | Diagnosis | + + | Dyspnea, unspecified type - Primary | + + | Coronary artery disease involving [place] coronary artery, angina presence unspecified, | | unspecified whether [place] or transplanted heart | + + | Essential hypertension | + + | Pre-operative cardiovascular examination | + +
--- OUTSIDE RECORDS SUMMARY | ~2017-11-08 | XMS | Encounter Summary ---
Demographics + + + | Address | [address] | | | [place] [address] | + + + | Home Phone [...] + | Author | [facility] | + + + | Organization | [facility] [facility] | + + + | Address | Unknown | + + + | Phone | Unavailable | + + + Support + + +---------+ + | Name | Relationship | Address | Phone | + + +---------+ + | CAMRON OCHOA | ECON | Unknown | | + + +---------+ + Care Team Providers + +------+ + | Care Aggregate Conveyor Operator Name | Role | Phone | [...] | | 2018 | | Center at [facility] 6th | PA-C [address] | Review | | | | Floor [address] | [address] | | | | | Evelyn Mailcode: CH6D | [place], [place] | | | | | [facility] | [address] | | | | | and Healing, 6th | [phone] | | | | | Floor [place], [place] | | | | | | [address] | | | | | | [phone] | | | +--------+ + + + [...] Rd | | | | | | [place] | | | | | | [address] | | | | | | [phone] | | | | | | | | +--------+---------+ + + + as of this encounter Visit Diagnoses Not on filein this encounter"
--- OUTSIDE RECORDS SUMMARY | ~2017-11-08 | XMS | Encounter Summary ---
Demographics + + + | Address | [address] | | | [place] [address] | + + + | Home Phone [...] + | Author | [facility] [employer] [facility] | + + + | Organization | [facility] | + + [...] Providers + +------+ + | Care Hand Former Helper Name | Role | Phone | [...] | | | | | MRI | [facility] | [facility] | | | | | [address] | Rd | Mailcode: | | | | | [address] | [place], [place] | [address] | | | | | CONTRAST (+ | [phone] | [place] | | | | | [place]) | Phone: | Research | | | | | | [phone] | [place] | | | | | | Fax: | [place], [place] | | | | | | [phone] | [address] | | | | | | | Phone: | | | | | | | [phone] | | | | | | | Fax: | | | | | | | [phone] | +--------+--------+ + + + + Diagnostic [...] | | | | | MRI | [facility] | [facility] | | | | | [address] | Rd | Mailcode: | | | | | PH[address] | [place], [place] | [address] | | | | | CONTRAST (+ | [phone] | [place] | | | | | [place]) | Phone: | Research | | | | | | [phone] | [place] | | | | | | Fax: | [place], [place] | | | | | | [phone] | [address] | | | | | | | Phone: | | | | | | | [phone] | | | | | | | Fax: | | | | | | | [phone] | +--------+--------+ + + + + Reason [...] | | | | | MRI | [facility] | [facility] | | | | | [address] | Rd | Mailcode: | | | | | PHY [address] | [place], [place] | [address] | | | | | CONTRAST (+ | [phone] | [place] | | | | | [place]) | Phone: | Research | | | | | | [phone] | Center | | | | | | Fax: | [place], [place] | | | | | | [phone] | [address] | | | | | | | Phone: | | | | | | | [phone] | | | | | | | Fax: | | | | | | | [phone] | +--------+--------+ + + + + Encounter Details +--------+ + + + + | Date | Type | Department | Care Team | Description | +--------+ + + + + | 09/24/ | Hospital | Diagnostic Imaging | Moustapha Schafer MD | | | 2018 | Encounter | Services at [facility] | [address] | | | | | [address] | [facility], | | | | | [facility] | [place] [address] | | | | | Mailcode: [address] | [phone] | | | | | [facility] | | | | | | [place], [place] | | | | | | [address] | | | | | | [phone] | | | +--------+ + + + [...] Rd | | | | | | [place], [place] | | | | | | [address] | | | | | | [phone] | | | | | | | [...] - [place] | [address] | [place], [place] | | | [facility] | [address] | [address] | | | TESTS | | | [...]
--- OUTSIDE RECORDS SUMMARY | ~2017-11-08 | XMS | Encounter Summary ---
Demographics + + + | Address | [address] | | | [place] [address] | + + + | Home Phone | | + + + | Preferred Language | Unknown | + + + | Marital Status | Single | + + + | Scientologist Affiliation | Unknown | + + + | Race | Unknown | + + + | Ethnic Group | Unknown | + + + Author + + + | Author | [facility] | | | and [place] | + + + | Organization | [facility] | | | and [place]ana [...] Team Providers + +------+ + | Care Maintenance Mechanic Engine Name | Role | Phone | + [...] | Clinton Srinivasan MD | [address] | | | | | of breath | [address] | [place] | | | | | Procedures | [place] | | | | | ECHO | [address] | [address] | | | | | Complete [place] | [place], [place] | Phone: | | | | | ECHO HEART | [address] | [phone] | | | | | [place] | Phone: | Fax: | | | | | [address] | [phone] | [phone] | | | | | [place] | Fax: | | | | | | ECHO HEART | [phone] | | | | | | [place] [...] Orders | CARDIOLOGY [address] | [address] [facility] | | | | | [place], | [address] | | | | | [place] [address] | [place], [place] | | | | | [phone] | [address] | | | | | | [phone] | | | | | | | [...]
--- OUTSIDE RECORDS SUMMARY | ~2017-11-08 | XMS | Encounter Summary ---
Demographics + + + | Address | [address] | | | [place] [address] | + + + | Home Phone [...] + + | Author | [facility] | + + + | Organization | [facility] | + + + | Address | Unknown | + + + | Phone | Unavailable | + + + Support + + +---------+ + | Name | Relationship | Address | Phone | + + +---------+ + | CAMRON OCHOA | ECON | Unknown | | + + +---------+ + Care Team Providers + +------+ + | Care Captain Fire Prevention Bureau Name | Role | Phone | + +------+ + | Shakir Monzon MD | PCP | | + +------+ + Encounter Details +--------+ + + + + | Date | Type | Department | Care Team | Description | +--------+ + + + + | 09/10/ | Procedure | Diagnostic Imaging | | | | 2017 | Pass | Services at [facility] | | | | | | [address] | | | | | | [facility] | | | | | | Mailcode: [address] | | | | | | [place] | | | | | | [place], [place] | | | | | | [address] | | | | | | [phone] | | | +--------+ + + + [...] | 2017 | Visit | | [address] [facility] | | | | | | [address] | | | | | | [place], [place] | | | | | | [address] | | | | | | [phone] | | | | | | | | +--------+---------+ + + + as of this encounter Visit Diagnoses Not on filein this encounter"
--- OUTSIDE RECORDS SUMMARY | ~2017-11-08 | XMS | Encounter Summary ---
Demographics + + + | Address | [address] | | | [place] [address] | + + + | Home Phone [...] + | Author | [facility] | + + + | Organization | [facility] [employer] [facility] | + + + | Address | Unknown | + + + | Phone | Unavailable | + + + Support + + +---------+ + | Name | Relationship | Address | Phone | + + +---------+ + | CAMRON OCHOA | ECON | Unknown | | + + +---------+ + Care Team Providers + +------+ + | Care Sql Developer Name | Role | Phone | + +------+ + | Shakir Monzon MD | PCP | | + +------+ + Encounter Details +--------+ + + + + | Date | Type | Department | Care Team | Description | +--------+ + + + + | 08/07/ | Procedure | Diagnostic Imaging | | | | 2018 | Pass | Services at [facility] | | | | | | [address] | | | | | | [facility] | | | | | | Mailcode: [address] [facility] | | | | | | [facility], | | | | | | [place] [address] | | | | | | [phone] | | | +--------+ + + + [...] | 2017 | Visit | | [address] [facility] | | | | | | [address] | | | | | | [place], [place] | | | | | | [address] | | | | | | [phone] | | | | | | | | +--------+---------+ + + + as of this encounter Visit Diagnoses Not on filein this encounter"
--- OUTSIDE RECORDS SUMMARY | ~2017-11-08 | XMS | Encounter Summary ---
Demographics + + + | Address | [address] | | | [place] [address] | + + + | Home Phone [...] | Author | [facility] [employer] [facility] | + + + | Organization | [facility] [employer] [facility] | + + + | Address | Unknown | + + + | Phone | Unavailable | + + + Support + + +---------+ + | Name | Relationship | Address | Phone | + + +---------+ + | CAMRON OCHOA | ECON | Unknown | | + + +---------+ + Care Team Providers + +------+ + | Care Gang Head Saw Operator Name | Role | Phone [...] [facility] [address] | | Review (GEN | | | | [place] Mailcode: | | Checklist ) | | | | [facility] | | | | | | Health and [facility], | | | | | | [address] [facility], | | | | | | [place] [address] | | | | | | [phone] | | | +--------+ + + + [...] Rd | | | | | | [place], [place] | | | | | | [address] | | | | | | [phone] | | | | | | | | +--------+---------+ + + + as of this encounter Visit Diagnoses Not on filein this encounter"
--- OUTSIDE RECORDS SUMMARY | ~2017-11-08 | XMS | Encounter Summary ---
Demographics + + + | Address | [address] | | | [place] [address] | + + + | Home Phone [...] + + + | Author | [facility] [employer] | + + + | Organization | [facility] [employer] | + + + | Address | Unknown | + + + | Phone | Unavailable | + + + Support + + +---------+ + | Name | Relationship | Address | Phone | + + +---------+ + | No,Contact | ECON | Unknown | | + + +---------+ + Care Team Providers + +------+ + | Care Labor Contractor Name | Role | Phone | [...] | 2018 | Orders | ECHO | [address] | disease, angina | | | | | Way [place], [place] | presence | | | | | [address] | unspecified, | | | | | | unspecified vessel | | | | | | or lesion type, | | | | | | unspecified whether | | | | | | [place] or | | | | | | [...] Bret Espinal Date of : 1955 | [facility] | | Performing Physician: Ayana Felton | [...] 0.80 m/s | | | MV Dec Nance: 2.88 m/s2 MV DecT: 315.34 ms MV E Jordan: | | | 0.90 m/s MV E/A Ratio: 1.12 MV PHT: 91.45 ms MVA By | | | PHT: 2.40 cm2 Septal e': 0.08 m/s Septal E/e': 11.35 | | | RAP: 5 mmHg RVSP: 18.14 mmHg TR maxP.14 mmHg TR | | | Vmax: 1.81 m/s News Assistant: JUD Authenticated by: Ayana | | | Jose Francisco Report Date/Time: 10-28-2017 12:48:42 | | + + + + + | Procedure Note | + + | Harjit, Rad Results In - 10/28/2017 12:51 PM PDT Patient Name: Kenyon Espinal of | | : 1955ccession: [id number] Physician: Ayana | | Jose Francisco INDICATIONS------ [...] | | cmLVPWd: 0.85 cmLVOT Area: 3.94 [id number] Diam: 2.24 cm%FS: 34.03 %EF(Teich): | | [...] mlLAESV Index (A-L): 28.14 ml/m2LAAs A2C: 18.26 [id number] A-L A2C: 53.81 | | mlLALs A2C: 5.26 cmLAAs A4C: 20.28 [id number] A-L A4C: 66.58 mlLALs A4C: 5.24 | | cmRAAs: 20.48 [id number] A-L: 70.40 mlRAESV MOD: 63.59 mlRALs: 5.06 cmTAPSE: | | 2.02 cmAV maxP.52 mmHgAV meanP.83 mmHgAV Vmax: 1.83 m/Viv Vmean: 1.21 | | m/Viv VTI: 36.82 cmAVA Vmax: 2.09 cm2AVA (VTI): 2.36 rv9GXAW (Vmax): 0.00 | | cm2/m2AVAI (VTI): 0.00 cm2/m2LVOT maxP.80 mmHgLVOT meanP.09 mmHgLVSI Dopp: | | 40.90 ml/m2LVSV Dopp: 87.12 mlLVOT Vmax: 0.97 m/sLVOT Vmean: 0.68 m/sLVOT VTI: | | 22.11 cmMV A Jordan: 0.80 m/sMV Dec Nance: 2.88 m/s2MV DecT: 315.34 msMV E Jordan: | | 0.90 m/sMV E/A Ratio: 1.12 MV PHT: 91.45 msMVA By PHT: 2.40 im5Xopdvv e': 0.08 | | m/sSeptal E/e': 11.35 RAP: 5 mmHgRVSP: 18.14 mmHgTR maxP.14 mmHgTR Vmax: | | 1.81 m/sSonographer: DBSAuthenticated by: Ayana AlswilliamsburgraReport Date/Time: 10-28-2017 | | 12:48:42IMPRESSION:1. The left [...] A Jordan: 0.80 m/s | |MV Dec Nance: 2.88 m/s2 | |MV DecT: 315.34 ms | |MV E Jordan: 0.90 m/s | |MV E/A Ratio: 1.12 | |MV PHT: 91.45 ms | |MVA By PHT: 2.40 cm2 | |Septal e': 0.08 m/s | |Septal E/e': 11.35 | |RAP: 5 mmHg | |RVSP: 18.14 mmHg | |TR maxP.14 mmHg | |TR Vmax: 1.81 m/s | | | |News Assistant: DBS | |Authenticated by: Ayana Felton | [...] + + + + + | [facility] | [address] | [place] [address] | | + + + + + in this encounter Visit Diagnoses + + | Diagnosis | + + | Coronary artery disease, angina presence unspecified, unspecified vessel or lesion | | type, unspecified whether [place] owing[place] or transplanted heart | + +"
--- OUTSIDE RECORDS SUMMARY | ~2017-11-08 | XMS | Encounter Summary ---
Demographics + + + | Address | [address] | | | [place] [address] | + + + | Home Phone [...] | Author | [facility] [employer] [facility] | + + + | Organization | [facility] | + + + | Address | Unknown | + + + | Phone | Unavailable | + + + Support + + +---------+ + | Name | Relationship | Address | Phone | + + +---------+ + | CAMRON OCHOA | ECON | Unknown | | + + +---------+ + Care Team Providers + +------+ + | Care Salesperson Women'S Dresses Name | Role | Phone | + [...] | | | | | MRI | [facility] | [facility] | | | | | [address] | Rd | Mailcode: | | | | | [address] | [facility] [place] | [address] | | | | | CONTRAST (+ | [address] | [place] | | | | | [place]) | Phone: | Research | | | | | | [phone] | Center | | | | | | Fax: | [place], [place] | | | | | | [phone] | [address] | | | | | | | Phone: | | | | | | | [phone] | | | | | | | Fax: | | | | | | | [phone] | +--------+--------+ + + + + Reason [...] [address] | [address] [place], | | | | | [facility] | [place] [address] | | | | | Mailcode: [address] | [phone] | | | | | [address] | | | | | | [address] [place], [place] | | | | | | [address] | | | | | | [phone] | | | +--------+---------+ + + + [...] 2018 | Visit | | [address] [facility] | | | | | | [facility] | | | | | | [place], [place] | | | | | | [address] | | | | | | [phone] | | | | | | | [...] Note | + + | Service Account, Yardsale Res In Interface - 09/27/2017 9:10 AM [...]
--- OUTSIDE RECORDS SUMMARY | ~2017-11-08 | XMS | Encounter Summary ---
Demographics + + + | Address | [address] | | | [place] [address] | + + + | Home Phone [...] Author + + + | Author | [facility] [employer] [facility] | + + + | Organization | [facility] [employer] [facility] | + + + | Address | Unknown | + + + | Phone | Unavailable | + + + Support + + +---------+ + | Name | Relationship | Address | Phone | + + +---------+ + | CAMRON OCHOA | ECON | Unknown | | + + +---------+ + Care Team Providers + +------+ + | Care Deck Cadet Name | Role | Phone | + +------+ + | Shakir Monzon MD | PCP | | + +------+ + Encounter Details +--------+------+ + + + | Date | Type | Department | Care Team | Description | +--------+------+ + + + | 10/13/ | Lab | Laboratory at [facility] | | Cirrhosis of liver | | 2017 | | 3rd Floor [address] | | without ascites, | | | | [place], | | unspecified hepatic | | | | [place] [address] | | cirrhosis type (HCC) | | | | [phone] | | | +--------+------+ + + + [...] | 2018 | Visit | | [address] [facility] | | | | | | [address] | | | | | | [place], [place] | | | | | | [address] | | | | | | [phone] | | | | | | | [...] | 3.50 - 10.80 K/cu mm | [facility] | | | | | SERVICES, CORE | + + + + + | RED CELL COUNT | 4.40 (L) | 4.50 - 6.00 M/cu mm | [facility] | | | | | SERVICES, [...] 92.0 | 80.0 - 100.0 fL | [facility] | | | | | SERVICES, CORE | + + + + + | MCHC | 34.6 | 32.0 - 36.0 g/dL | [facility] | | | | | SERVICES, CORE | + + + + + | RDW SD | 46.9 (H) | 35.1 - 46.3 fL | [facility] | | | | | SERVICES, [...] | + + + + + | [employer] | [address] | [place] [address] | | | SERVICES, CORE | [address] [...] [facility] | [address] | [place] [address] | | | SERVICES, CORE | [address] | | | + + + + + INR (10/13/2017 9:49 AM) + +-------+ + + | Component | Value | Ref Range | Performed At | + +-------+ + + | INR | 1.11 | 0.90 - 1.20 INR | [facility] | | | | [...] [facility] | [address] [facility] | [place] [address] | | | SERVICES, CORE | PARVEEN [...] >60 mL/min | [facility] | | MAURITIAN | | | MICHEAL CORE | + +---------+ + + | EGFR NON | >60 | >60 mL/min | [facility] | | -MAURITIAN | | | SERVICES, CORE | + [...] | | PLASMA (LAB) | | | [facility], CORE | + +---------+ + + | [...] the MDRD equation recommended by the | [facility] | | National Kidney Disease Education Program. [...] | + + + + + | [facility] | [address] | [place] [address] | | | SERVICES, CORE | [address] | | | + + + + + in this encounter Visit Diagnoses + + | Diagnosis | + + | Cirrhosis of liver without ascites, unspecified hepatic cirrhosis type (HCC) | + +"
--- OUTSIDE RECORDS SUMMARY | ~2017-11-08 | XMS | Encounter Summary ---
Demographics + + + | Address | [address] | | | [place] [address] | + + + | Home Phone [...] | [facility] [employer] [facility] | + + + | Organization | [facility] [facility] | + + + | Address | Unknown | + + + | Phone | Unavailable | + + + Support + + +---------+ + | Name | Relationship | Address | Phone | + + +---------+ + | CAMRON OCHOA | ECON | Unknown | | + + +---------+ + Care Team Providers + +------+ + | Care [employer] Miner Name | Role | Phone | [...] | | | | | MRI | [facility] | [facility] | | | | | [address] | Rd | Mailcode: | | | | | [address] | [place], [place] | [address] | | | | | CONTRAST (+ | [address] | [place] | | | | | [place]) | Phone: | Research | | | | | | [phone] | [place] | | | | | | Fax: | [place], [place] | | | | | | [phone] | [address] | | | | | | | Phone: | | | | | | | [phone] | | | | | | | Fax: | | | | | | | [phone] | +--------+--------+ + + + + Diagnostic [...] | | | | | MRI | [facility] | [facility] | | | | | [address] | Rd | Mailcode: | | | | | [address] | [place], [place] | [address] | | | | | CONTRAST (+ | [address] | [place] | | | | | [place]) | Phone: | Research | | | | | | [phone] | [place] | | | | | | Fax: | [place], [place] | | | | | | [phone] | [address] | | | | | | | Phone: | | | | | | | [phone] | | | | | | | Fax: | | | | | | | [phone] | +--------+[phone]+ + + + + Reason [...] | | | | | MRI | [facility] | [facility] | | | | | [address] | Rd | Mailcode: | | | | | PH[address] | [place], [place] | [address] | | | | | CONTRAST (+ | [address] | [place] | | | | | [place]) | Phone: | Research | | | | | | [phone] | Center | | | | | | Fax: | [place], [place] | | | | | | [phone] | [address] | | | | | | | Phone: | | | | | | | [phone] | | | | | | | Fax: | | | | | | | [phone] | +[phone]+ + + + + Encounter [...] | | [address] | [facility], | | | | | [facility] | [place] [address] | | | | | Mailcode: [address] | [phone] | | | | | [facility] | | | | | | [place], [place] | | | | | | [address] | | | | | | [phone] | | | +--------+ + + + [...] Rd | | | | | | [place], [place] | | | | | | [address] | | | | | | [phone] | | | | | | | [...] - [place] | [address] | [place], [place] | | | [facility] | [address] | [address] | | | TESTS | | | [...]
--- OUTSIDE RECORDS SUMMARY | ~2017-11-08 | XMS | Encounter Summary ---
Demographics + + + | Address | [address] | | | [place] [address] | + + + | Home Phone [...] + | Author | [facility] | + + + | Organization | [facility] [employer] [facility] | + + + | Address | Unknown | + + + | Phone | Unavailable | + + + Support + + +---------+ + | Name | Relationship | Address | Phone | + + +---------+ + | CAMRON OCHOA | ECON | Unknown | | + + +---------+ + Care Team Providers + +------+ + | Care Lubrication Worker Name | Role | Phone | [...] [facility], | | | | | [facility] | [place] [address] | | | | | Mailcode: [address] | [phone] | | | | | Nikkie Mazariegos | | | | | | [address], [place] | | | | | | [address] | | | | | | [phone] | | | +--------+ + + + [...] | 2017 | Visit | | [address] [facility] | | | | | | [address] | | | | | | [place], [place] | | | | | | [address] | | | | | | [phone] | | | | | | | | +--------+---------+ + + + as of this encounter Visit Diagnoses Not on filein this encounter"
--- OUTSIDE RECORDS SUMMARY | ~2017-11-08 | XMS | Encounter Summary ---
Demographics + + + | Address | [address] | | | [place] [address] | + + + | Home Phone [...] Count Includes [facility] | + + + | Organization | Count Includes [facility] [employer] [facility] | + + + | Address | Unknown | + + + | Phone | Unavailable | + + + Support + + +---------+ + | Name | Relationship | Address | Phone | + + +---------+ + | CAMRON OCHOA | ECON | Unknown | | + + +---------+ + Care Team Providers + +------+ + | Care Appointment Scheduler Name | Role | Phone | + [...] Record | | 2017 | | at [facility] [address] | | Review (GEN | | | | [place] Mailcode: | | Checklist ) | | | | [facility] | | | | | | [facility], | | | | | | [address] [facility], | | | | | | [place] [address] | | | | | | [phone] | | | +--------+ + + + [...] Rd | | | | | | [place], [place] | | | | | | [address] | | | | | | [phone] | | | | | | | | +--------+---------+ + + + as of this encounter Visit Diagnoses Not on filein this encounter"
[~2017-11-08 11:05] MED LIST changes: +CRESTOR10 MG PO; -NOVOLOG100 UNIT/2; +NOVOLOG100 UNIT/2 SUB-Q; +OMEPRAZOLE40 MG PO
[2017-11-08] MEDS ORDERED: NITROSTAT0.4 MG SL (12:42)
[2017-11-08] MEDS ORDERED: METOPROLOL TART25 MG PO (12:42)
[2017-11-08] MEDS ORDERED: ISOSORBIDE MONO30 MG PO (12:43)
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
--- NOTE | 2017-11-08 17:42 | NUR ---
PATIENT IS RESTING IN BED. PATIENT WALKED TO BATHROOM STA. PATIENT WALKED BACK TO BED. NPO AT THIS TIME. CALL LIGHT WITH IN REACH, NO OTHER NEEDS AT THIS TIME.
--- NOTE | 2017-11-08 18:06 | NUR ---
IRMA RN REQUESTED THIS RN HANG IV FLUIDS PER ORDER. IV FLUIDS ADMINISTERED (SEE MAR). CALL LIGHT WITHIN REACH. NO FURTHER REQUESTS AT THIS TIME. FAMILY AT BEDSIDE.
[2017-11-08] MEDS ORDERED: ENULOSE10 GM/15 M PO (18:39)
[2017-11-08] MEDS ORDERED: ZOVIRAX5 GM TOP (18:40)
[2017-11-08] MEDS ORDERED: ZOVIRAX800 MG PO (18:41)
--- NOTE | 2017-11-08 18:49 | NUR ---
Medications reconciled using pharmacy records, discharge orders from [facility] (from 11/03/17) and interview with patient's
--- NOTE | 2017-11-08 19:05 | NUR ---
RECEIVED REPORT FROM MARC GLEASONNEIDA RN. PATIENT IS RESTING IN BED WATCHING TV. PATIENT DENIES ANY PAIN. PATIENT COMPLAINS OF "CRAMPS AND FEELING LIKE HE HAS TO POOP". PATIENT EDUCATED ON MDS ORDERS. PATIENT VERBALIZES UNDERSTANDING. NO FURTHER NEEDS NOTED. ALL QUESTIONS ANSWERED. CALL LIGHT IN REACH.
--- NOTE | 2017-11-08 20:30 | NUR ---
PATIENT ASSESMENT COMPLETED. PATIENTS SCHEDULED MEDICATIONS GIVEN PER ORDER. STILL AWAITING PHARMACY TO VERIFY FURTHER EVENING MEDS. PATIENT DENIES ANY PAIN. PATIENT DENIES ANY NAUSEA AT THIS TIME. WATER REFILLED. NO NEEDS NOTED. CALL LIGHT IN REACH.
--- NOTE | 2017-11-08 21:00 | NUR ---
RECEIVED ORDER FROM DR PINEDA TO CHANGE THE HYDROCORTISONE ENEMA TO HYDROCORTISONE [place], ENEMA IS NOT AVAILABLE IN PHARMACY.
--- NOTE | 2017-11-08 21:34 | NUR ---
PATIENTS IV ABX INFUSING PER ORDER. PATIENTS SUPPOSITORY GIVEN PER ORDER. PATIENT EDUCATED ON THE SUPPOSITORY. PATIENT VERBALIZES UNDERSTANDING. PATIENT DENIES ANY FURTHER NEEDS AT THIS TIME. CALL LIGHT IN REACH.
--- NOTE | 2017-11-08 23:45 | NUR ---
PATIENT UP TO THE RESTROOM WITH TALENT MANAGEMENT MANAGER. PATIENT ATTEMPTED TO HAVE A BM. PATIENT WAS UNSUCCESSFUL. PATIENT IS BACK IN BED RESTING. NO NEEDS NOTED. CALL LIGHT IN REACH.
--- NOTE | 2017-11-09 00:10 | NUR ---
PATIENT IS NOW NPO
--- NOTE | 2017-11-09 00:39 | NUR ---
1 SBA. CHANGED PATIENT'S SOILED UNDERWEAR. HOSPITAL PANTS PROVIDED.
--- NOTE | 2017-11-09 02:29 | NUR ---
PATIENT ASSESMENT COMPLETED. PATIENT VITALS TAKEN AND RECORDED. PATIENT DENIES ANY [AIN OR NAUSEA. PATIENT DENIES ANY NEEDS. CALL LIGHT IN REACH.
--- NOTE | 2017-11-09 04:48 | NUR ---
PATIENT RESTED WELL THROUGOUT THE SHIFT. PATIENT HAS BEEN NPO SINCE MIDNIGHT. PATIENT IS INDEPENDENT IN THE ROOM. PATIENT IS AAOX3 AND USES CALL LIGHT APPROPRIATELY. PATIENT ONLY COMPLAINS OF MILD "GAS PAIN". PATIENT HAS BEEN UP TO THE RESTROOM MULTIPLE TIMES TO ATTEMPT A BM WITH NO SUCCESS. PATIENT HAS DENIED ANY NAUSEA. IV INFUSING.
--- NOTE | 2017-11-09 05:57 | NUR ---
PATIENT ASSEMENT COMPLETED. PATIENT IS RESTING IN BED. PATIENTS VITALS TAKEN AND RECORDED. PATIENT DENIES ANY PAIN. PATIENT DENIES ANY NEEDS AT THIS TIME. MORNING MEDICATIONS GIVEN PER ORDER. CALL LIGHT IN REACH.
--- NOTE | 2017-11-09 07:00 | NUR ---
BEDSIDE HANDOFF REPORT RECEIVED FROM WORKFORCE DEVELOPMENT SPECIALIST RN. PT RESTING IN BED. PT DENIES OTHER NEEDS AT THIS TIME.
--- NOTE | 2017-11-09 08:10 | NUR ---
PATIENT AWAKE UP TO THE BR WITH 1 P STBA, CALL LIGHT IN REACH. NO OTHER NEEDS AT THIS TIME.
--- NOTE | 2017-11-09 09:43 | NUR ---
PT UP TO BATHROOM TO [facility] AND MORNING CARES, INDEPENDENT IN ROOM. PT ON ROOM AIR, LUNG SOUNDS CLEAR, DENIES SOB. PT DENIES NAUSEA, NPO FOR PROCEDURE, BOWL TONES ACTIVE. PT DENIES PAIN. CMS INATCT, WITHOUT EDEMA, PULSE STRONG. IV FLUIDS INFUSING ZOSYN AND IV FLUIDS AT 100 ML/HR. DISCUSSED PLAN OF CARE FOR THE DAY. FLEET ENEMA ADMINISTERED PER ORDER. PT DENIES OTHER NEEDS AT THIS TIME.
--- NOTE | 2017-11-09 10:46 | NUR ---
PT TO DAY SURGERY WITH ALONZO TOMLIN.
--- NOTE | 2017-11-09 11:49 | NUR ---
PATIENT WAS IN BED, CALL LIGHT IN REACH NO OTHER NEED AT THIS TIME.
--- NOTE | 2017-11-09 12:36 | NUR ---
11/09/17 1236 Marlene Vicente 1224 PATIENT ARRIVES TO PACU UNRESPONSIVE TO PAINFUL STIMULI. RESP EVEN AND UNLABORED, ORAL AIRWAY IN PLACE, MASK AT 6 LITERS. PATIENT ALSO HAS T-TUBE, CHRONIC, DRAINING HOLLY COLORED FLUID.
--- NOTE | 2017-11-09 13:30 | NUR ---
PT ARRIVED BACK TO FLOOR AT 1310 FROM ENDOSCOPY. PT REPAORTING PAIN HIGH 8/10, GIVEN 4 MG IV MORPHINE. PT ON ROOM AIR, LUNG SOUNDS CLEAR. VSS. PT BOWEL TONES ACTIVE, ORDERED CLEAR DIABETIC TRAY. PT AMBULATED TO BATHROOM, SBA, VOIDED WITHOUT DIFFICULTY. IV FLUIDS INFUSING LR AT 125 ML/HR. PT DENIES OTHER NEEDS AT THIS TIME.
--- NOTE | 2017-11-09 14:15 | NUR ---
VSS. PT TOLERATED CLEAR LIQUID. PT STATES PAIN HAS IMPROVED AFTER MORPHINE. PT DENIES NEEDS AT THIS TIME.
--- NOTE | 2017-11-09 16:15 | NUR ---
PT RESTING IN BED. MD AT BEDSIDE. VSS. NO ACUTE CHANGES. PT GIVEN MESALAMINE, EDUCATED ON INDICATION OF MEDICATION AND WHEN TO TAKE. PT DENIES OTHER NEEDS AT THIS TIME.
--- NOTE | 2017-11-09 16:49 | EKG ---
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 rate has decreased BY 67 BPM Nonspecific T wave abnormality, worse in Anterolateral leads Confirmed by JUANITA MOURA MD ([id number]) on 11/09/2017 4:49:41 PM Electronically Signed By: JUANITA MOURA MD 11/09/17 1649 PATIENT NAME: DIPESH BEHZAD TOWNSEND Electrocardiogram DATE OF : 55 PHYSICIAN: JUANITA MOURA MD REPORT #: [id number] REPORT IS CONFIDENTIAL AND NOT TO BE RELEASED WITHOUT AUTHORIZATION
--- NOTE | 2017-11-09 17:54 | NUR ---
PT WENT FOR COLONOSCOPY TODAY, DIAGNOSED WITH SEVERE PROCTITIS. PT ON ROOM AIR, LUNG SOUNDS CLEAR. PT TOLERATING FULL LIQUID DIET. PO FLAGYL AND MESALAMINE BEGAN. PT UP WITH SBA/INDEPENDENT WITH FAMILY. LR AT 125 ML/HR. SCDS. VOIDING QS.
--- NOTE | 2017-11-09 18:02 | NUR ---
PATIENT WENT TO BATHROOM, BACK TO BED . CALL LIGHT IN REACH. NO OTHER NEEDS AT THIS TIME.
--- NOTE | 2017-11-09 19:05 | NUR ---
RECEIVED REPORT FROM DAY SHIFT RN. PATIENT IS RESTING IN BED VISITING WITH FAMILY. PATIENT DENIES ANY NEEDS A THIS TIME. CALL LIGHT IN REACH.
--- NOTE | 2017-11-09 21:50 | NUR ---
PATIENT ASSESMENT COMPLETED. PATIENTS VITALS TAKEN AND RECORDED. PATIENTS EVENING MEDICATIONS GIVEN PER ORDER. PATIENT HAS IV INFUSING. PATIENT GIVEN FRSH TEA AND WATER REFILLED. PATIENT IS ON A FULL LIQUID DIET AND TOLERATING IT WELL, NO NAUSEA NOTED. PATIENT DENIES ANY PAIN. PATIENT HAS SCDS IN PLACE. PATIENT ADMINISTERED ENEMA PER ORDER. PATIENT DENIES ANY FURTHER NEEDS AT THIS TIME. PATIENT REMAINS INDEPENDENT IN THE ROOM. CALL LIGHT IN REACH.
--- NOTE | 2017-11-09 23:08 | NUR ---
PATIENT PROVIDED WITH YOGURT PER REQUEST. PATIENT DENIES ANY FURTHER NEEDS. PATIENT IS RESTING IN BED WATCHING TV. CALL LIGHT IN REACH.
--- NOTE | 2017-11-10 02:13 | NUR ---
PATIENT CALLED TO HAVE HAT EMPTIED. PATIENT VOIDED QS. PATIENT DENIES ANY PAIN. PATIENT DENIES ANY STOMACH CRAMPINGS. NO NEEDS NOTED. PATIENT IS RESTING IN BED. CALL LIGHT IN REACH.
--- NOTE | 2017-11-10 04:51 | NUR ---
PATIENT RESTED WELL THROUGHOUT THE SHIFT. PATIENT IS ON A FULL LIQUID DIET AND TOLERATING IT WELL, NO COMPLAINTS OF NAUSEA. PATIENT DENIES PAIN. PATIENT IS INDEPENDENT IN THE ROOM. PATIENTS URINE OUTPUT IS QS. IV FLUIDS INFUSING. PATIENT IS AAOX3 AND USES CALL LIGHT APPROPRIATELY.
--- NOTE | 2017-11-10 05:42 | NUR ---
PATIENTS VITALS TAKEN AND RECORDED. PATIENT ASSESMENT COMPLETED. PATIENT DENIES ANY PAIN. PATIENTS MORNING MEDICATIONS GIVEN PER ORDER. PATIENT DENIES ANY NEEDS. IV INFUSING. CALL LIGHT IN REACH.
--- NOTE | 2017-11-10 08:15 | NUR ---
PT RESTING IN BED WATCHING TV. ATE FULL LIQUID BREAKFAST, CATALINA WELL. STATES HE FEELS READY TO START EATING REGULAR FOOD. DENIES PAIN THIS AM. STATES HE IS PASSING A MODERATE AMOUNT OF GAS BUT HAS YET TO HAVE A BM. REPORTS OCC MILD CRAMPING, DENIES NAUSEA. ALERT AND ORIENTED. CALL LIGHT WITHIN REACH.
--- NOTE | 2017-11-10 11:49 | NUR ---
PATIENT SITING UP IN BED. IN ROOM. IV COVERED. SET UP BATHROOM FOR SHOWER. LINENS CHANGED. CALL LIGHT WITHIN REACH. NO OTHER NEEDS AT THIS TIME.
--- NOTE | 2017-11-10 11:50 | NUR ---
PT SITTING UP IN BED EATING LUNCH. TOOK A SHOWER INDPENDENTLY PER PT AND EGG AND SPICE MIXER'S. IVF'S RESTARTED, IV FLUSHING WELL. PT DENIES NEEDS OR CONCERNS AT THIS TIME. CALL LIGHT WITHIN REACH.
--- NOTE | 2017-11-10 13:37 | NUR ---
PT SAID HE WASN'T INTERESTED, OR DIDN'T NEED SPIRITUAL CARE. WE DID HOWEVER HAVE A VERY PLEASANT CONVERSATION. HE HAS A GREAT DESIRE TO BE WITH HIS FAMILY AND FEELS THE CHOICES HE MADE IN HIS YOUNGER DAYS ARE HAUNTING HIM NOW. HE WANTS TO MAKE THE MOST OF EACH DAY-HUNTING SEASON IS UPON HIM AND HE HOPES TO FEEL WELL ENOUGH TO GO TO CAMP. HE CHOSE TO RETURN TO "[place]" FOR THE SIMPLICITY AND SEEMED NATURAL TO HIM. EXTENDED A BLESSING, WILL FOLLOW NEEDED
[2017-11-10] MEDS ORDERED: METRONIDAZOLE250 MG PO (13:38)
[2017-11-10] MEDS ORDERED: COLOCORT100 MG/60 PR ×2 (13:39→13:55)
[2017-11-10] MEDS ORDERED: PREDNISONE10 MG PO (13:41)
[2017-11-10] MEDS ORDERED: MESALAMINE1.2 GM PO (13:42)
--- NOTE | 2017-11-10 14:10 | NUR ---
PT DRESSED INDEPENDENTLY. IV DC'D BY TRAFFIC LINE PAINTER. DC INSTRUCTIONS REVIEWED WITH PT AND , QUESTIONS ANSWERED.
== END 2017-11-10 14:45 | disposition home or self-care (01) | DRG 386 ==
LOC: ED 11:05 → MS 11:07
PROVIDERS: ADMIT Surgery
PROC: 0DBN8ZX Excision of Sigmoid Colon, Via Natural or Artificial Opening Endoscopic, Diagnostic (ICD-10-PCS; 2017-11-09)
PROC: 0DBP8ZX Excision of Rectum, Via Natural or Artificial Opening Endoscopic, Diagnostic (ICD-10-PCS; 2017-11-09)
PROC: 0DBL8ZX Excision of Transverse Colon, Via Natural or Artificial Opening Endoscopic, Diagnostic (ICD-10-PCS; 2017-11-09)
PROC: 0DBH8ZX Excision of Cecum, Via Natural or Artificial Opening Endoscopic, Diagnostic (ICD-10-PCS; principal; 2017-11-09 11:30)
DX: K51.20 Ulcerative (chronic) proctitis without complications (principal); K76.6 Portal hypertension; I85.10 Secondary esophageal varices without bleeding; K63.5 Polyp of colon; F10.10 Alcohol abuse, uncomplicated; K70.30 Alcoholic cirrhosis of liver without ascites; B19.20 Unspecified viral hepatitis C without hepatic coma; F17.200 Nicotine dependence, unspecified, uncomplicated; I25.2 Old myocardial infarction; E78.5 Hyperlipidemia, unspecified; I10 Essential (primary) hypertension; I25.10 Atherosclerotic heart disease of native coronary artery without angina pectoris; E11.65 Type 2 diabetes mellitus with hyperglycemia; E66.9 Obesity, unspecified; Z79.2 Long term (current) use of antibiotics; Z79.4 Long term (current) use of insulin; Z79.899 Other long term (current) drug therapy; Z93.4 Other artificial openings of gastrointestinal tract status; Z68.29 Body mass index [BMI] 29.0-29.9, adult
CPT/HCPCS: 36415; 71045; 74177; 80048; 80053; 81001; 83036; 83605; 83690; 85025; 86850; 86900; 86901; 93005; 93010; 96361; 96365; 96375; 96376; 99285; G0378; J1720; J1815; J2270; J2405; J2543; J2704; J3010; J7030; J7120; Q9967

== ENCOUNTER 2018-05-13 11:44 | Emergency (ER) | payer OTHER ==
[~2018-05-13] VITALS: Ht 177.8 cm; Wt 93.2 kg
--- OUTSIDE RECORDS SUMMARY | ~2018-05-13 | XMS | Clinical Summary ---
Demographics + + + | Address | [address] | | | [place] [address] | + + + | Home Phone | | + + + | Preferred Language | Unknown | + + + | Marital Status | Single | + + + | Zoroastrian Affiliation | NRP | + + + | Race | or | + + + | Ethnic Group | Not or | + + + Author + + + | Author | NON REVENUE LOCATIONS | + + + | Organization | NON REVENUE LOCATIONS | + + + | Address | Unknown | + + + | Phone | Unavailable | + + + Support + + +---------+ + | Name | Relationship | Address | Phone | + + +---------+ + | CAMRON OCHOA | ECON | Unknown | | + + +---------+ + Care Team Providers + +------+ + | Care Talent Acquisition Operations Manager Name | Role | Phone | + +------+ + | Shakir Monzon MD | PP | | + +------+ + Source Comments LINDA is fully live on both EpicCare Ambulatory and EpicCare InPatient.[facility] Allergies + + + + + + | Active Allergy | Reactions | Severity | Noted | Comments | | | | | Date | | + + + + + + | Hydromorphone | Anxiety, Confusion, | High | 08/04/19 | | | | Delirium | | 18 | | + + + + + + Current Medications + + + +---------+------+------+-------+ | Prescription | Sig. | Disp. | Refills | Star | End | Statu | | | | | | t | Date | s | | | | | | Date | | | + + + +---------+------+------+-------+ | rifAXIMin 550 mg | Take 550 mg by mouth | | | | | Activ | | oral tablet | two times daily. | | | | | e | + + + +---------+------+------+-------+ | omeprazole 40 mg | Take 40 mg by mouth | | | | | Activ | | oral capsule,delayed | once daily in the | | | | | e | | release(DR/EC) | morning. | | | | | | + + + +---------+------+------+-------+ | rosuvastatin | Take 10 mg by mouth | | | | | Activ | | (CRESTOR) 10 mg oral | once daily. | | | | | e | | tablet | | | | | | | + + + +---------+------+------+-------+ | insulin aspart | Inject 30 Units | | | | | Activ | | U-100 (NOVOLOG | under the skin | | | | | e | | FLEXPEN U-100 | (SUBC) two times | | | | | | | INSULIN) 100 unit/mL | daily. Inject three | | | | | | | subcutaneous | times daily per | | | | | | | insulin pen | sliding scale before | | | | | | | | meals. If CBGs | | | | | | | | >150: no insulin; | | | | | | | | 150-200: 5 units; | | | | | | | | >201 10 units | | | | | | + + + +---------+------+------+-------+ | losartan 25 mg | Take 25 mg by mouth | | | | | Activ | | oral tablet | once daily. | | | | | e | + + + +---------+------+------+-------+ | LANTUS DOTTIEOSTAR | Inject 40 Units | | | | | Activ | | U-100 INSULIN 100 | under the skin | | | | | e | | unit/mL (3 mL) | (SUBC) every twelve | | | | | | | subcutaneous insulin | hours. | | | | | | | pen | | | | | | | + + + +---------+------+------+-------+ | lactulose 10 | Take 30 mL by mouth | | | | | Activ | | gram/15 mL oral | three times daily. | | | | | e | | solution | | | | | | | + + + +---------+------+------+-------+ | nitroglycerin 0.4 | Place 1 tablet under | 25 | | 09/1 | | Activ | | mg sublingual | tongue every five | tablet | | 7/20 | | e | | tablet, sublingual | minutes as needed | | | 18 | | | | | for chest pain. | | | | | | | | Place under tongue | | | | | | | | and allow to | | | | | | | | dissolve. | | | | | | | | Administer every 5 | | | | | | | | minutes, max of 3 | | | | | | | | doses in 15 minutes. | | | | | | + + + +---------+------+------+-------+ | metoprolol | Take 1 tablet by | | | 10/16 | | Activ | | tartrate 25 mg oral | mouth two times | | | 09/03 | | e | | tablet | daily. | | | 18 | | | + + + +---------+------+------+-------+ | mesalamine 500 mg | Take 500 mg by mouth | | | | | Activ | | oral capsule, | two times daily. | | | | | e | | extended release | | | | | | | + + + +---------+------+------+-------+ | nicotine | Take 1 each by mouth | 40 each | 1 | 01/15 | | Activ | | polacrilex 2 mg | as needed. Chew | | | 11/04 | | e | | buccal gum | slowly | | | 18 | | | + + + +---------+------+------+-------+ | isosorbide | Take 1 tablet by | 30 | 2 | 12/ | | Activ | | mononitrate CR 30 mg | mouth once daily. | tablet | | 10/04 | | e | | oral tablet | Indications: Chronic | | | 18 | | | | extended release 24 | Stable Angina | | | | | | | hrIndications: | Pectoris | | | | | | | Chronic Stable | | | | | | | | Angina | | | | | | | + + + +---------+------+------+-------+ | ibuprofen 200 mg | Take 200 mg by mouth | | | | | Activ | | oral | once daily as | | | | | e | | tabletIndications: | needed. Indications: | | | | | | | shoulder pain | shoulder pain | | | | | | + + + +---------+------+------+-------+ | aspirin 325 mg | Take 325 mg by mouth | | | | | Activ | | oral | once daily as | | | | | e | | tabletIndications: | needed. Indications: | | | | | | | shoulder pain | shoulder pain | | | | | | + + + +---------+------+------+-------+ Active Problems + + + | Problem | Noted Date | + + + | Gallbladder perforation | 08/03/2017 | + + + | Hepatic cirrhosis (HCC) | 10/14/2016 | + + + | Chronic hepatitis C without hepatic coma (HCC) | 10/14/2016 | + + + Encounters +--------+ + + + + | Date | Type | Specialty | Care Team | Description | +--------+ + + + + | 04/20/ | Telephone | | Clinton Morillo, | Update from Patient | | 2019 | | | MD | | +--------+ + + + + | 04/12/ | Abstract | | Clinton Morillo, | Medical Records | | 2018 | | | MD | Review | +--------+ + + + + | 04/11/ | Telephone | | Clinton Morillo, | | | 2018 | | | MD | | +--------+ + + + + | 03/04/ | Telephone | | Clinton Morillo, | Follow-up encounter | | 2018 | | | MD | | +--------+ + + + + | 03/04/ | Production Operator | | Clinton Morillo, | Coronary artery | | 2018 | | | MD | disease, angina | | | | | | presence | | | | | | unspecified, | | | | | | unspecified vessel | | | | | | or lesion type, | | | | | | unspecified whether | | | | | | [place] or | | | | | | transplanted heart | | | | | | (Primary Dx) | +--------+ + + + + | 03/01/ | Production Operator | | Clinton Morillo, | 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, | | | | | | unspecified vessel | | | | | | or lesion type, | | | | | | unspecified whether | | | | | | [place] or | | | | | | transplanted heart | | | | | | (HCC) (Primary Dx); | | | | | | Coronary artery | | | | | | calcification; | | | | | | 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; 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) | +--------+ + + + + | 03/01/ | Telephone | | Clinton Morillo, | | | 2018 | | | MD | | +--------+ + + + + | 02/21/ | Telephone | | Clinton Morillo, | Scheduling | | 2018 | | | MD | | +--------+ + + + + | 02/16/ | Office | | Mariama Navarro | Preop examination | | 2019 | Visit | | MD Annette | (Primary Dx); | | | | | | Cholangitis; | | | | | | Gallbladder | | | | | | perforation | +--------+ + + + + | 02/16/ | Anesthesia | | Mahin Middleton, | | | 2018 | Event | | [place] | | +--------+ + + + + from Last 3 Months Family History + + +------+ + | Medical History | Relation | Name | Comments | + + +------+ + | Coronary Artery | Father | | bypass surgery at 54, at 56 lymphoma | | Disease | | | | + + +------+ + + +------+ + + | Relation | Name | Status | Comments | + +------+ + + | Father | | | | + +------+ + + Social History + + + [...] + + + | Blood Pressure | 171/90 | 02/16/2018 7:53 AM PST | + + + + | Pulse | 67 | 02/16/2018 7:53 AM PST | + + + + | Temperature | 36.8 C (98.2 F) | 02/16/2018 7:53 AM PST | + + + + | Respiratory Rate | 16 | 02/16/2018 7:53 AM PST | + + + + | Oxygen Saturation | 98% | 02/16/2018 7:53 AM PST | + + + + | Inhaled Oxygen | - | - | | Concentration | | | + + + + | Weight | 102.8 kg (226 lb 9.6 | 02/16/2018 7:53 AM PST | | | oz) | | + + + + | Height | 180.3 cm (5' 11") | 02/16/2018 7:53 AM PST | + + + + | Body Mass Index | 31.6 | 02/16/2018 7:53 AM PST | + + + + Plan of Treatment +--------+ + + + + | Date | Type | Specialty | Care Team | Description | +--------+ + + + + | 06/21/ | Office | | Michelle Gan MD | | | 2019 | Visit | | [address] | | | | | | [address] | | | | | | [place], [place] | | | | | | [address] | | | | | | [phone] | | | | | | | | +--------+ + + + + | 02/22/ | Procedure | | | | | 2020 | Pass | | | | +--------+ + + + + + + + + + | Health Maintenance | Due Date | Last Done | Comments | + + + + + | Pneumococcal (Adult) | | | | | (1 of 1 - PPSV23) | 5 | | | + + + + + | Influenza (Flu) | | 12/01/2016, 12/08/2012 | | | vaccination (#1) | 8 | | | + + + + + | HEPATOCELLULAR | | 09/24/2017, 08/05/2017 | | | CARCINOMA SCREENING | 9 | | | + + + + + Procedures + +--------+ + + + | Procedure Name | Priori | Date/Time | Associated Diagnosis | Comments | | | ty | | | | + +--------+ + + + | NE COLLECTION VENOUS | Routin | 02/16/2018 | Preop examination | | | BLOOD,VENIPUNCTURE | e | 8:12 AM | | | | | | PST | | | + +--------+ + + + | CBC (HEMOGRAM) ONLY | Routin | 02/16/2018 | Gallbladder | Results for this | | | e | 8:12 AM | perforation | procedure are in the | | | | PST | | results section. | + +--------+ + + + | COMPLETE METABOLIC | Routin | 02/16/2018 | Gallbladder | Results for this | | SET | e | 8:12 AM | perforation | procedure are in the | | (NA,K,CL,CO2,BUN,CRE | | PST | | results section. | | AT,GLUC,CA,AST,ALT,B | | | | | | NIC TOTAL,ALK | | | | | | PHOS,ALB,PROT TOTAL) | | | | | + +--------+ + + + | CBC ONLY | Routin | 02/16/2018 | Gallbladder | Results for this | | | e | 8:12 AM | perforation | procedure are in the | | | | PST | | results section. | + +--------+ + + + | NICOTINE + | Routin | 02/16/2018 | Gallbladder | Results for this | | METABOLITE SCREEN, | e | 8:12 AM | perforation | procedure are in the | | URINE | | PST | | results section. | + +--------+ + + + | INR | Routin | 02/16/2018 | Gallbladder | Results for this | | | e | 8:12 AM | perforation | procedure are in the | | | | PST | | results section. | + +--------+ + + + | ANTIBODY SCREEN | Routin | 02/16/2018 | Gallbladder | Results for this | | | e | 8:09 AM | perforation | procedure are in the | | | | PST | | results section. | + +--------+ + + + | ABO & RH TYPE | Routin | 02/16/2018 | Gallbladder | Results for this | | | e | 8:09 AM | perforation | procedure are in the | | | | PST | | results section. | + +--------+ + + + | TYPE AND SCREEN | Routin | 02/16/2018 | Gallbladder | Results for this | | | e | 8:09 AM | perforation | procedure are in the | | | | PST | | results section. | + +--------+ + + + from Last 3 Months Results CBC (HEMOGRAM) ONLY (02/16/2018 8:12 AM) + + + + + | Component | Value | Ref Range | Performed At | + + + + + | WHITE CELL COUNT | 5.68 | 3.50 - 10.80 K/cu mm | [facility] | | | | | SERVICES, CORE | + + + + + | RED CELL COUNT | 4.36 (L) | 4.50 - 6.00 M/cu mm | [facility] | | | | | SERVICES, CORE | + + + + + | HEMOGLOBIN | 13.9 | 13.5 - 17.5 g/dL | [facility] | | | | | SERVICES, CORE | + + + + + | HEMATOCRIT | 38.0 (L) | 41.0 - 53.0 % | [facility] | | | | | SERVICES, CORE | + + + + + | MCV | 87.2 | 80.0 - 100.0 fL | [facility] | | | | | SERVICES, CORE | + + + + + | MCHC | 36.6 (H) | 32.0 - 36.0 g/dL | [facility] | | | | | SERVICES, CORE | + + + + + | RDW SD | 42.5 | 35.1 - 46.3 fL | [facility] | | | | | SERVICES, CORE | + + + + + | PLATELET COUNT | 72 (L)Comment: | 150 - 400 K/cu mm | [facility] | | | Macroplatelets present. | | SERVICES, CORE | + + + + + | MPV | 11.5 | 9.7 - 12.3 fL | [facility] | | | | | SERVICES, CORE | + + + + + | NRBC% | 0.0 | 0.0 - 0.3 % | [facility] | | | | | SERVICES, CORE | + + + + + | NRBC# | 0.00 | 0.00 - 0.02 K/cu mm | [facility] | | | | | SERVICES, CORE | + + + + + + + | Specimen | + + | Blood - Blood | + + + + + + + | Performing | Address | City/State/Zipcode | Phone Number | | Organization | | | | + + + + + | [facility] | [address] | [place] [address] | | | SERVICES, CORE | [address] | | | + + + + + NICOTINE + METABOLITE SCREEN, URINE (02/16/2018 8:12 AM) + + + + + | Component | Value | Ref Range | Performed At | + + + + + | NICOTINE, URINE | <2Comment: INTERPRETIVE | ng/mL | [facility] | | | INFORMATION: Nicotine | | [facility] - | | | and Metabolites, | | [facility] | | | | | | | | | | | | | Urine, Quantitative | | | | | Methodology: | | | | | Quantitative Liquid | | | | | Chromatography-Tandem | | | | | Mass Spectrometry | | | | | Positive | | | | | cutoff:Nicotine 2 | | | | | ng/mLCotinine 5 | | | | | ng/pK7-RQ-Zitevmoa 50 | | | | | ng/mLNornicotine | | | | | 2 | | | | | ng/mLAnabasine | | | | | 3 ng/mL For medical | | | | | purposes only; not valid | | | | | for forensic use. This | | | | | test is designed to | | | | | evaluate recent use of | | | | | nicotine-containing | | | | | products. Passive and | | | | | active exposure cannot | | | | | be discriminated | | | | | definitively, although a | | | | | cutoff of 100 ng/mL | | | | | cotinine is frequently | | | | | used for surgery | | | | | qualification | | | | | purposes. For smoking | | | | | cessation programs or | | | | | compliance testing, the | | | | | absence of expected | | | | | drug(s) and/or drug | | | | | metabolite(s) may | | | | | indicate non-compliance, | | | | | inappropriate timing of | | | | | specimen collection | | | | | relative to drug | | | | | administration, poor | | | | | drug absorption, | | | | | diluted/adulterated | | | | | urine, or limitations of | | | | | testing. The | | | | | concentration value must | | | | | be greater than or | | | | | equal to the cutoff to | | | | | be reported as positive. | | | | | Anabasine is included | | | | | as a biomarker of | | | | | tobacco use, versus | | | | | nicotine | | | | | replacement. Interpre | | | | | tive questions should be | | | | | directed to the | | | | | laboratory. Test | | | | | developed and | | | | | characteristics | | | | | determined by [facility] | | | | | Laboratories. See | | | | | Compliance Statement B: | | | | | [employer]SPerformed | | | | | by [address] | | | | [place], [place] | | | | | [address] | | | | | [phone]. | | | | | Júnior treadwell MD, | | | | | Lab. Director | | | + + + + + | COTININE, URINE | 22Comment: Cotinine is | ng/mL | [facility] | | | the major metabolite of | | [facility] - | | | nicotine and is | | [facility] | | | abiomarker of passive | | | | | exposure when present at | | | | | | | | | | lowconcentrations. Th | | | | | is result may reflect | | | | | passive exposureto a | | | | | nicotine-containing | | | | | product. | | | + + + + + | NORNICOTINE, URINE | <2 | ng/mL | [facility] | | | | | [facility] | | | | | [facility] | + + + + + | ANABASINE, URINE | <3 | ng/mL | [facility] | | | | | [facility] | | | | | [facility] | + + + + + | 3-LE-PVHNKECV, URINE | 54Comment: Nicotine is | ng/mL | [facility] | | | metabolized to cotinine, | | [facility] - | | | and 7-GZ-hhlorygy is | | [facility] | | | ametabolite of | | | | | cotinine. After | | | | | cessation from long-term | | | | | orheavy use of nicotine | | | | | products, 3-JN-wugmnist | | | | | may persistfor weeks. | | | + + + + + + + | Specimen | + + | Urine - Urine | + + + + + + + | Performing | Address | City/State/Zipcode | Phone Number | | Organization | | | | + + + + + | [facility] | [address] | [place], [place] | | | [facility] | | [address] | | + + + + + INR (02/16/2018 8:12 AM) + +-------+ + + | Component | Value | Ref Range | Performed At | + +-------+ + + | INR | 1.08 | 0.90 - 1.20 INR | [facility] | | | | | SERVICES, CORE | + +-------+ + + + + | Specimen | + + | Blood - Blood | + + + + + | Narrative | Performed At | + + + | INR Therapeutic ranges for full anticoagulation: INR for | [facility] | | Venous Thromboembolism (2.0 - 3.0) INR INR | LABORATORY | | for most patients with mech. valves (2.5 - 3.5) INR | SERVICES, CORE | + + + + + + + + | Performing | Address | City/State/Zipcode | Phone Number | | Organization | | | | + + + + + | [facility] | [address] | [place] [address] | | | SERVICES, CORE | [address] | | | + + + + + COMPLETE METABOLIC SET (NA,K,CL,CO2,BUN,CREAT,GLUC,CA,AST,ALT,BILI TOTAL,ALK PHOS,ALB,PROT TOTAL) (02/16/2018 8:12 AM) + +---------+ + + | Component | Value | Ref Range | Performed At | + +---------+ + + | GLUCOSE, PLASMA | 254 (H) | 70 - 99 mg/dL | [facility] | | (LAB) | | | SERVICES, CORE | + +---------+ + + | BUN, PLASMA (LAB) | 13 | 6 - 20 mg/dL | [facility] | | | | | SERVICES, CORE | + +---------+ + + | CREATININE PLASMA | 0.82 | 0.70 - 1.30 mg/dL | [facility] | | (LAB) | | | SERVICES, CORE | + +---------+ + + | EGFR - | >60 | >60 mL/min | [facility] | | [place] | | | SERVICES, CORE | + +---------+ + + | EGFR NON | >60 | >60 mL/min | [facility] | | -[place] | | | SERVICES, CORE | + +---------+ + + | SODIUM, PLASMA (LAB) | 138 | 136 - 145 mmol/L | [facility] | | | | | SERVICES, CORE | + +---------+ + + | POTASSIUM, PLASMA | 5.0 | 3.4 - 5.0 mmol/L | [facility] | | (LAB) | | | SERVICES, CORE | + +---------+ + + | CHLORIDE, PLASMA | 113 (H) | 97 - 108 mmol/L | [facility] | | (LAB) | | | SERVICES, CORE | + +---------+ + + | TOTAL CO2, PLASMA | 19 (L) | 21 - 32 mmol/L | [facility] | | (LAB) | | | SERVICES, CORE | + +---------+ + + | CALCIUM, PLASMA | 8.1 (L) | 8.6 - 10.2 mg/dL | [facility] | | (LAB) | | | SERVICES, CORE | + +---------+ + + | CALCIUM(ALB | 9.1 | 8.6 - 10.2 mg/dL | [facility] | | CORRECTED) | | | SERVICES, CORE | + +---------+ + + | BILIRUBIN TOTAL | 1.6 (H) | 0.3 - 1.2 mg/dL | [facility] | | | | | SERVICES, CORE | + +---------+ + + | TOTAL PROTEIN, | 6.8 | 6.4 - 8.2 g/dL | [facility] | | PLASMA (LAB) | | | SERVICES, CORE | + +---------+ + + | ALBUMIN, PLASMA | 2.8 (L) | 3.5 - 4.7 g/dL | [facility] | | (LAB) | | | SERVICES, CORE | + +---------+ + + | ALK PHOS | 114 | 56 - 119 U/L | [facility] | | | | | SERVICES, CORE | + +---------+ + + | AST(SGOT) | 99 (H) | <=41 U/L | [facility] | | | | | SERVICES, CORE | + +---------+ + + | ALT (SGPT) | 29 | <=60 U/L | [facility] | | | | | SERVICES, CORE | + +---------+ + + | ANION GAP | 6 | 4 - 11 mmol/L | [facility] | | | | | SERVICES, CORE | + +---------+ + + | ANION GAP(ALB | 9 | 4 - 11 mmol/L | [facility] | | CORRECTED) | | | SERVICES, CORE | + +---------+ + + | POTASSIUM CMNT | Mk Hemo | | [facility] | | | | | SERVICES, CORE | + +---------+ + + | BILI T CMNT | Mk Hemo | | [facility] | | | | | SERVICES, CORE | + +---------+ + + | AST CMNT | Mk Hemo | | [facility] | | | | | SERVICES, CORE | + +---------+ + + + + | Specimen | + + | Blood - Blood | + + + + + | Narrative | Performed At | + + + | Sample hemolyzed. Results for K, Total Bili, Direct Bili, AST, | [facility] | | LDH, or HDL may be inaccurate. Refer to comment under test result. | LABORATORY | | GFR is estimated using the MDRD equation recommended by the National | SERVICES, CORE | | Kidney Disease Education Program. Estimated GFR Interpretive | | | Information: <60 mL/min/1.73 sq m Chronic | | | Kidney Disease <15 mL/min/1.73 sq m | | | Kidney Failure Estimated GFR greater than 60 mL/min/1.73 sq m is of | | | limited clinical value. The MDRD equation is not valid in the | | | following situations: - Patients under 18 years of age - Severe | | | malnutrition or obesity - Vegetarian diet - Rapidly changing kidney | | | function - Amputees, paraplegics, or other muscle-wasting diseses | | + + + + + + + + | Performing | Address | City/State/Zipcode | Phone Number | | Organization | | | | + + + + + | [facility] | [address] | [place] [address] | | | SERVICES, CORE | [address] | | | + + + + + ANTIBODY SCREEN (02/16/2018 8:09 AM) + + + + + | Component | Value | Ref Range | Performed At | + + + + + | Antibody Screen | Negative | | [facility] | | | | | SERVICES, | | | | | TRANSFUSION | | | | | MEDICINE | + + + + + + + | Specimen | + + | Blood - Blood | + + + + + + + | Performing | Address | City/State/Zipcode | Phone Number | | Organization | | | | + + + + + | [facility] | [address] | [place] [address] | | | SERVICES, | [address] | | | | TRANSFUSION MEDICINE | | | | + + + + + ABO & RH TYPE (02/16/2018 8:09 AM) + + + + + | Component | Value | Ref Range | Performed At | + + + + + | ABO Group | A | | [facility] | | | | | SERVICES, | | | | | TRANSFUSION | | | | | MEDICINE | + + + + + | Rh Type | Positive | | [facility] | | | | | SERVICES, | | | | | TRANSFUSION | | | | | MEDICINE | + + + + + + + | Specimen | + + | Blood - Blood | + + + + + + + | Performing | Address | City/State/Zipcode | Phone Number | | Organization | | | | + + + + + | [facility] | [address] | [place] [address] | | | SERVICES, | [address] | | | | TRANSFUSION MEDICINE | | | | + + + + + from Last 3 Months Insurance + +--------+ +--------+ + + | Payer | Benefi | Subscriber | Type | Phone | Address | | | t Plan | ID | | | | | | / | | | | | | | Group | | | | | + +--------+ +--------+ + + | [place]ICA[place] | O[employer] | xxxxxxxx | Medica | [phone] [address] [address] | | | PLUS | | id | [phone] | [place] [address] | | | OPEN | | | | | | | CARD | | | | | + +--------+ +--------+ + + | [facility] | [employer] | [phone] | Agency | | | | SERVICE | | | | | | | | HEALTH | | | | | | | | | | | | | | SERVIC | | | | | | | E | | | | | + +--------+ +--------+ + + + +--------+ +--------+ + + | Guarantor Name | Accoun | Relation to | Date | Phone | Billing Address | | | t Type | Patient | of | | | | | | | | | | + +--------+ +--------+ + + | BEHZAD LANDON JR. | Person | Self [birth year] | Home: | [address] | | | al/Gavin | | [phone] | [phone] [place] [address] | | | eryn | | | [phone] | | + +--------+ +--------+ + +
--- OUTSIDE RECORDS SUMMARY | ~2018-05-13 | XMS | Encounter Summary ---
Demographics + + + | Address | [address] | | | [place] [address] | + + + | Home Phone [...] Author + + + | Author | [facility] [address] | + + + | Organization | [facility] | + + + | Address | Unknown | + + + | Phone | Unavailable | + + + Support + + +---------+ + | Name | Relationship | Address | Phone | + + +---------+ + | CAMRON OCHOA | ECON | Unknown | | + + +---------+ + Care Team Providers + +------+ + | Care Ostrich Farmer Name | Role | Phone | + +------+ + | Shakir Monzon MD | PCP | | + +------+ + Encounter Details +--------+ + + + + | Date | Type | Department | Care Team | Description | +--------+ + + + + | 04/11/ | Telephone | [facility] | Clinton Morillo, | | | 2019 | | Center [address] | [address] | | | | | Rolando Rivas Mailcode: | [address] | | | | | [address] | [place], [place] | | | | | [facility], | [address] | | | | | [address]th floor [place], | [phone] | | | | | [place] [address] | | | | | | [phone] | | | +--------+ + + + [...] + + | 06/21/ | Office | Cardiology | Michelle Gan MD | | | 2019 | Visit | | [address] | | | | | | [address] | | | | | | [place], [place] | | | | | | [address] | | | | | | [phone] | | | | | | | | +--------+ + + + + | 02/22/ | Procedure | Surgery | | | | 2020 | Pass | | | | +--------+ + + + + as of this encounter Visit Diagnoses Not on filein this encounter"
--- OUTSIDE RECORDS SUMMARY | ~2018-05-13 | XMS | Clinical Summary ---
Demographics + + + | Address | [address] | | | [place] [address] | + + + | Home Phone | | + + + | Preferred Language | Unknown | + + + | Marital Status | Single | + + + | Protestant Affiliation | Unknown | + + + | Race | Unknown | + + + | Ethnic Group | Unknown | + + + Author + + + | Author | [facility] | | | and [place] | + + + | Organization | [facility] | | | and [place] | + + + | Address | Unknown | + + + | Phone | Unavailable | + + + Support + + +---------+ + | Name | Relationship | Address | Phone | + + +---------+ + | Mary Medellin | ECON | Unknown | | + + +---------+ + | Jennifer Medellin | ECON | Unknown | | + + +---------+ + Care Team Providers + +------+ + | Care Waste And Batting Waste Chopper Name | Role | Phone | + +------+ + | Shakir Monzon DO | PP | | + +------+ + Allergies + + + + + + | Active Allergy | Reactions | Severity | Noted | Comments | | | | | Date | | + + + + + + | Hydromorphone | Anxiety, Other (See | High | 08/04/19 | | | | Comments) | | 18 | | + + + + + + Current Medications + + +-------+---------+------+------+-------+ | Prescription | Sig. | Disp. | Refills | Star | End | Statu | | | | | | t | Date | s | | | | | | Date | | | + + +-------+---------+------+------+-------+ | metFORMIN | Take 1,000 mg by | | | | | Activ | | (GLUCOPHAGE) 1000 MG | mouth 2 times daily | | | | | e | | tablet | (with breakfast & | | | | | | | | dinner). | | | | | | + + +-------+---------+------+------+-------+ | lactulose 10 g/15 | Take 30 mLs by mouth | | | | | Activ | | mL solution | 3 times daily. | | | | | e | + + +-------+---------+------+------+-------+ | omeprazole | Take 40 mg by mouth | | | | | Activ | | (PRILOSEC) 40 MG | every morning | | | | | e | | capsule | (before breakfast). | | | | | | + + +-------+---------+------+------+-------+ | losartan (COZAAR) | Take 25 mg by mouth | | | | | Activ | | 25 mg tablet | Daily. | | | | | e | + + +-------+---------+------+------+-------+ | rifAXIMin | Take 550 mg by mouth | | | | | Activ | | (XIFAXAN) 550 mg | 2 times daily. | | | | | e | | TABS | | | | | | | + + +-------+---------+------+------+-------+ | rosuvastatin | Take 10 mg by mouth | | | | | Activ | | (CRESTOR) 10 mg | nightly. | | | | | e | | tablet | | | | | | | + + +-------+---------+------+------+-------+ | insulin aspart | Inject under the | | | | | Activ | | (NOVOLOG) 100 | skin. Per sliding | | | | | e | | units/mL injection | scale | | | | | | + + +-------+---------+------+------+-------+ | insulin glargine | Inject 60-80 Units | | | | | Activ | | (LANTUS SOLOSTAR) | under the skin 2 | | | | | e | | 100 units/mL | times daily. | | | | | | | injection (pen) | | | | | | | + + +-------+---------+------+------+-------+ | acyclovir | Apply 1 Application | | | | | Activ | | (ZOVIRAX) 5% | topically 5 times | | | | | e | | ointment | daily as needed. | | | | | | + + +-------+---------+------+------+-------+ | acyclovir | Take 1 tablet by | | | | | Activ | | (ZOVIRAX) 800 mg | mouth 5 times daily | | | | | e | | tablet | as needed. | | | | | | + + +-------+---------+------+------+-------+ | metoprolol | Take 1 tablet by | | | | | Activ | | tartrate (LOPRESSOR) | mouth 2 times daily. | | | | | e | | 25 mg tablet | | | | | | | + + +-------+---------+------+------+-------+ | isosorbide | Take 30 mg by mouth | | | | | Activ | | mononitrate (IMDUR) | Daily. | | | | | e | | 30 mg ER tablet | | | | | | | + + +-------+---------+------+------+-------+ | nitroglycerin | Place 0.4 mg under | | | | | Activ | | (NITROSTAT) 0.4 mg | the tongue every 5 | | | | | e | | SL tablet | minutes as needed | | | | | | | | for Chest pain. | | | | | | + + +-------+---------+------+------+-------+ | mesalamine | 1.2 g. | | | 09/2 | | Activ | | (LIALDA) 1.2 g EC | | | | 6/20 | | e | | tablet | | | | 18 | | | + + +-------+---------+------+------+-------+ | PREDNISONE PO | prednisone | | | | | Activ | | | | | | | | e | + + +-------+---------+------+------+-------+ Active Problems + + + | Problem | Noted Date | + + + | Shortness of breath | 10/21/2017 | + + + | Gallbladder perforation | 08/03/2017 | + + + | Cholecystitis | 04/27/2017 | + + + | Esophageal varices determined by endoscopy (HCC) | 07/24/2016 | + + + | Alcoholic cirrhosis of liver with ascites (HCC) | 07/07/2016 | + + + | Cirrhosis of liver without ascites (HCC) | 03/24/2016 | + + + | Hepatic encephalopathy (HCC) | 03/24/2016 | + + + | Helicobacter pylori infection | 03/24/2016 | + + + | Alcohol use disorder, moderate, in early remission (HCC) | 03/24/2016 | + + + | Hepatic cirrhosis, unspecified hepatic cirrhosis type (HCC) | 09/16/2015 | + + + | Thrombocytopenia, unspecified | 09/16/2015 | + + + | Chronic hepatitis C without hepatic coma (HCC) | 09/16/2015 | + + + | ETOH abuse | 09/16/2015 | + + + | Insulin dependent type 2 diabetes mellitus, uncontrolled (HCC) | 09/16/2015 | + + + | Marijuana use | 09/16/2015 | + + + Encounters +--------+---------+ + + + | Date | Type | Specialty | Care Team | Description | +--------+---------+ + + + | 03/29/ | Office | | Clinton Morillo, | NSTEMI (non-ST | | 2019 | Visit | | Sherri Anaya, | elevated myocardial | | | | | RN | infarction) (HCC) | | | | | | (Primary Dx) | +--------+---------+ + + + from Last 3 Months Family History + + +------+ + | Medical History | Relation | Name | Comments | + + +------+ + | No known problems | Brother | | | + + +------+ + | Cancer | Father | | | + + +------+ + | No known problems | Maternal | | | | | Grandfath | | | | | er | | | + + +------+ + | No known problems | Maternal | | | | | Grandmoth | | | | | er | | | + + +------+ + | Diabetes | Mother | | | + + +------+ + | Alcohol abuse | Other | | | + + +------+ + | Diabetes | Other | | | + + +------+ + | Lymphoma | Other | | | + + +------+ + | Thyroid cancer | Other | | | + + +------+ + | No known problems | Paternal | | | | | Grandfath | | | | | er | | | + + +------+ + | No known problems | Paternal | | | | | Grandmoth | | | | | er | | | + + +------+ + | No known problems | Sister | | | + + +------+ + + +------+ + + | Relation | Name | Status | Comments | + +------+ + + | Brother | | | | + +------+ + + | Father | | | lymphoma cancer | | | | (Age | | | | | 56) | | + +------+ + + | Maternal Grandfather | | | | + +------+ + + | Maternal Grandmother | | | | + +------+ + + | Mother | | Alive | | + +------+ + + | Other | | | | + +------+ + + | Paternal Grandfather | | | | + +------+ + + | Paternal Grandmother | | | | + +------+ + + | Sister | | | | + +------+ + + Social History + + + +--------+ + | Tobacco Use | Types | Packs/Day | Years | Date | | | | | Used | | + + + +--------+ + | Current Every Day | Cigarettes | 0.25 | 45 | Started: 12/30/1967 | | Smoker | | | | | + + + +--------+ + + +---+---+---+ | Smokeless Tobacco: | | | | | Never Used | | | | + +---+---+---+ + + | Tobacco Cessation: Ready to Quit: Yes | + + + + +---------+ + | Alcohol Use | Drinks/We | oz/Week | Comments | | | ek | | | + + +---------+ + | No | 0 | 0.0 | 3 beers in the past 4 months. Currently | | | Standard | | sober from alcohol >2 years. | | | drinks or | | | | | | | | | | equivalen | | | | | t | | | + + +---------+ + + + + | Sex Assigned at | Date Recorded | | | | + + + | Not on file | | + + + Last Filed Vital Signs + + + + | Vital Sign | Reading | Time Taken | + + + + | Blood Pressure | 150/76 | 12/29/2017 1419 PST | + + + + | Pulse | 69 | 12/29/20171418 PST | + + + + | Temperature | 36.9 C (98.4 F) | 08/03/2017131 PDT | + + + + | Respiratory Rate | 24 | 12/29/20171418 PST | + + + + | Oxygen Saturation | 96% | 08/03/2017742 PDT | + + + + | Inhaled Oxygen | - | - | | Concentration | | | + + + + | Weight | 101.7 kg (224 lb 3.3 | 12/29/20171418 PST | | | oz) | | + + + + | Height | 179.1 cm (5' 10.5") | 12/29/20171418 PST | + + + + | Body Mass Index | 31.72 | 12/29/20171418 PST | + + + + Plan of Treatment + + + + + | Health Maintenance | Due Date | Last Done | Comments | + + + + + | Diabetic Eye Exam | | | | | | 4 | | | + + + + + | Diabetic Foot Exam | | | | | | 4 | | | + + + + + | Vaccine: | | | | | Pneumococcal 19-64 | 5 | | | | (PPSV23 only) Medium | | | | | Risk (1 of 1 - | | | | | PPSV23) | | | | + + + + + | Hemoglobin A1c Q3 | | 07/30/2015 | | | Months | 6 | | | + + + + + | Vaccine: Zoster (2 | | 09/16/2016 | | | of 3) | 7 | | | + + + + + | Vaccine: Influenza | | 12/01/2016 | | | (#1) | 8 | | | + + + + + | Vaccine: | | 04/08/2011 | | | Dtap/Tdap/Td (2 - | 2 | | | | Td) | | | | + + + + + | Colorectal Cancer | | 02/15/2014 | | | Screening | 5 | | | | (Colonoscopy) | | | | + + + + + | Hepatitis C | Completed | 08/03/2017, 08/03/2017, | | | Screening | | 08/03/2017, Additional history | | | | | exists | | + + + + + Results Not on filefrom Last 3 Months Insurance + +--------+ +--------+ +---------+ | Payer | Benefi | Subscriber | Type | Phone | Address | | | t Plan | ID | | | | | | / | | | | | | | Group | | | | | + +--------+ +--------+ +---------+ | [place] | MEDICA | [id number] | Medica | [phone] | | | [place] | | id | [phone] | | | | PLUS | | | | | + +--------+ +--------+ +---------+ | [facility] | IHS | [id number] | Indemn | | | | SERVICE | YELLOW | | ity | | | | | [place] | | | | | + +--------+ +--------+ +---------+ + +--------+ +--------+ + + | Guarantor Name | Accoun | Relation to | Date | Phone | Billing Address | | | t Type | Patient | of | | | | | | | | | | + +--------+ +--------+ + + | BEHZAD LANDON JR. | Person | Self | [birth year] | Home: | [address] | | | al/Gavin | | [phone] | [phone] [place] | | | eryn | | [phone] | [address] | + +--------+ +--------+ + +
--- OUTSIDE RECORDS SUMMARY | ~2018-05-13 | XMS | Encounter Summary ---
Demographics + + + | Address | [address] | | | [place] [address] | + + + | Home Phone [...] + + + | Author | [facility] [employer] [facility] | + + + | Organization | [facility] | + + + | Address | Unknown | + + + | Phone | Unavailable | + + + Support + + +---------+ + | Name | Relationship | Address | Phone | + + +---------+ + | CAMRON OCHOA | ECON | Unknown | | + + +---------+ + Care Team Providers + +------+ + | Care Engineering Job Titles Name | Role | Phone | + +------+ + | Shakir Monzon MD | PCP | | + +------+ + Reason for Visit + + + | Reason | Comments | + + + | Update from Patient | | + + + Encounter Details +--------+ + + + + | Date | Type | Department | Care Team | Description | +--------+ + + + + | 04/20/ | Telephone | [facility] | Clinton Morillo, | Update from Patient | | 2019 | | Center [address] | [address] | | | | | Rolando Rivas Mailcode: | [address] | | | | | [facility] for | [place], [place] | | | | | Health and Healing, | [address] | | | | | 6th floor [place], | [phone] | | | | | [place] [address] | | | | | | [phone] | | | +--------+ + + + [...] | 2019 | Visit | | [address] | | | | | | [address] | | | | | | [place], [place] | | | | | | [address] | | | | | | [phone] | | | | | | | | +--------+ + + + + | 02/22/ | Procedure | Surgery | | | | 2020 | Pass | | | | +--------+ + + + + + +--------+ + + | Name | Priori | Associated Diagnoses | Order Schedule | | | ty | | | + +--------+ + + | HEMOGLOBIN A1C, BLOOD | Urgent | Type 2 diabetes | Expected: 04/20/2018 | | | | mellitus with | (Approximate), | | | | hyperglycemia, with | Expires: 05/22/2019 | | | | long-term current | | | | | use of insulin (HCC) | | + +--------+ + + as of this encounter Visit Diagnoses + + | Diagnosis | + + | Type 2 diabetes mellitus with hyperglycemia, with long-term current use of insulin | | (HCC) - Primary | + +"
--- OUTSIDE RECORDS SUMMARY | ~2018-05-13 | XMS | Encounter Summary ---
Demographics + + + | Address | [address] | | | [place] [address] | + + + | Home Phone [...] Author + + + | Author | [facility] [employer] [facility] | + + + | Organization | [facility] [employer] [facility] | + + + | Address | Unknown | + + + | Phone | Unavailable | + + + Support + + +---------+ + | Name | Relationship | Address | Phone | + + +---------+ + | CAMRON OCHOA | ECON | Unknown | | + + +---------+ + Care Team Providers + +------+ + | Care Tax Audit Manager Name | Role | Phone | [...] | | | | | Stay [address] [facility] | [place], [place] | | | | | [address] | [address] | | | | | Mailcode: [id number] | | | | | | Vivian Mazariegos | | | | | | [address] [place], [place] | | | | | | [address] | | | | | | [phone] | | | +--------+ + + + [...] No LDAs on file. | + + in this encounter Social History + + [...] 2019 | Visit | | [address] | | | | | | [address] | | | | | | [place], [place] | | | | | | [address] | | | | | | [phone] | | | | | | | | +--------+ + + + + | 02/22/ | Procedure | Surgery | | | | 2020 | Pass | | | | +--------+ + + + + as of this encounter Visit Diagnoses Not on filein this encounter"
--- OUTSIDE RECORDS SUMMARY | ~2018-05-13 | XMS | Encounter Summary ---
Demographics + + + | Address | [address] | | | [place] [address] | + + + | Home Phone | | + + + | Preferred Language | Unknown | + + + | Marital Status | Single | + + + | Yazidism Affiliation | Unknown | + + + | Race | Unknown | + + + | Ethnic Group | Unknown | + + + Author + + + | Author | [facility] | + + + | Organization | [facility] [employer] | + + + | Address | Unknown | + + + | Phone | Unavailable | + + + Support + + +---------+ + | Name | Relationship | Address | Phone | + + +---------+ + | Jennifer Medellin | ECON | Unknown | | + + +---------+ + Care Team Providers + +------+ + | Care Meeting/Event Planner Name | Role | Phone | + +------+ + | Shakir Monzon MD | PCP | | + +------+ + Encounter Details +--------+ + + + + | Date | Type | Department | Care Team | Description | +--------+ + + + + | 03/14/ | Documentati | [facility] | Lakisha Kahn DO | | | 2019 | on Only | [facility] | [address] | | | | | [address] | [place], [place] | | | | | [place], [place] | [address] | | | | | [address] | | | | | | [phone] | | | +--------+ + + + [...] Description | +--------+---------+ + + + | 06/30/ | Office | Cardiology | Lakisha Kahn DO | | | 2019 | Visit | | [address] | | | | | | [place] | | | | | | [address] | | | | | | | | +--------+---------+ + + + as of this encounter Visit Diagnoses Not on filein this encounter"
--- OUTSIDE RECORDS SUMMARY | ~2018-05-13 | XMS | Encounter Summary ---
Demographics + + + | Address | [address] | | | [place] [address] | + + + | Home Phone [...] + + + | Author | [facility] | + + + | Organization | [facility] [email or web address] [facility] | + + + | Address | Unknown | + + + | Phone | Unavailable | + + + Support + + +---------+ + | Name | Relationship | Address | Phone | + + +---------+ + | Jennifer Medellin | ECON | Unknown | | + + +---------+ + Care Team Providers + +------+ + | Care Settlement Processor Name | Role | Phone | + +------+ + | Shakir Monzon MD | PCP | | + +------+ + Reason for Visit +--------+ + | Reason | Comments | +--------+ + | Other | [facility] | +--------+ + Encounter Details +--------+ + + + + | Date | Type | Department | Care Team | Description | +--------+ + + + + | 04/12/ | Documentati | [facility] | Kady Cortez | Other ([facility] | | 2019 | on Only | Cardiology [facility] | [place] | [facility] | | | | [address] | | Cath ) | | | | [place], [place] | | | | | | [address] | | | | | | [phone] | | | +--------+ + + + [...] [place] | | | | | | [address] | | | | | | | | +--------+---------+ + + + as of this encounter Visit Diagnoses Not on filein this encounter"
--- OUTSIDE RECORDS SUMMARY | ~2018-05-13 | XMS | Encounter Summary ---
Demographics + + + | Address | [address] | | | [place] [address] | + + + | Home Phone [...] Author + + + | Author | [facility] | + + + | Organization | [facility] | + + + | Address | Unknown | + + + | Phone | Unavailable | + + + Support + + +---------+ + | Name | Relationship | Address | Phone | + + +---------+ + | CAMRON OCHOA | ECON | Unknown | | + + +---------+ + Care Team Providers + +------+ + | Care Site Leasing Agent Name | Role | Phone | [...] + + | 02/21/ | Telephone | [facility] | MorilloClinton, | Scheduling | | 2019 | | Center [address] | [address] | | | | | [place]ivas Mailcode: | [address] | | | | | [facility] for | [place], [place] | | | | | Health and Healing, | [address] | | | | | 6th floor [place], | [phone] | | | | | [place] [address] | | | | | | [phone] | | | +--------+ + + + [...] Rd | | | | | | [place], [place] | | | | | | [address] | | | | | | [phone] | | | | | | | | +--------+ + + + + | 02/22/ | Procedure | Surgery | | | | 2020 | Pass | | | | +--------+ + + + + as of this encounter Visit Diagnoses Not on filein this encounter"
--- OUTSIDE RECORDS SUMMARY | ~2018-05-13 | XMS | Encounter Summary ---
Demographics + + + | Address | [address] | | | [place] [address] | + + + | Home Phone [...] Author + + + | Author | [facility] [employer] [facility] | + + + | Organization | [facility] [employer] [facility] | + + + | Address | Unknown | + + + | Phone | Unavailable | + + + Support + + +---------+ + | Name | Relationship | Address | Phone | + + +---------+ + | CAMRON OCHOA | ECON | Unknown | | + + +---------+ + Care Team Providers + +------+ + | Care Seed Service Advisor Name | Role | Phone | + [...] | | | | | presence | [place], [place] | | | | | | unspecified, | [address] | | | | | | unspecified | Phone: | | | | | | vessel or | [phone] | | | | | | lesion type, | Fax: | | | | | | unspecified | [phone] | | | | | | whether | | | | | | | shinnecock or | | | | | | [...] + + + + | 03/04/ | [facility] | [facility] | Clinton Moirllo, | Coronary artery | | 2018 | | Center [address] | [address] | disease, angina | | | | [address] Mailcode: | [address] | presence | | | | [facility] | [place], [place] | unspecified, | | | | Health and Healing, | [address] | unspecified vessel | | | | 6th floor [place], | [phone] | or lesion type, | | | | [place] [address] | | unspecified whether | | | | [phone] | | shinnecock or | | | | | | [...] | 2018 | Visit | | [address] | | | | | | [address] | | | | | | [place], [place] | | | | | | [address] | | | | | | [phone] | | | | | | | [...] or lesion | | type, unspecified whether shinnecock or transplanted heart - Primary | + +"
--- OUTSIDE RECORDS SUMMARY | ~2018-05-13 | XMS | Encounter Summary ---
Demographics + + + | Address | [address] | | | [place] [address] | + + + | Home Phone | | + + + | Preferred Language | Unknown | + + + | Marital Status | Single | + + + | Episcopalian Affiliation | NRP | + + + | Race | or | + + + | Ethnic Group | Not or | + + + Author + + + | Author | [facility] [employer] [facility] | + + + | Organization | [facility] | + [...] Team Providers + +------+ + | Care Inspector Air Carrier Name | Role | Phone | + [...] Records | | 2019 | | Center [address] | [address] [facility] | Review | | | | [address] Mailcode: | [facility] | | | | | [address] for | [place], [place] | | | | | Health and [facility], | [address] | | | | | [address]th [facility], | [phone] | | | | | [place] [address] | | | | | | [phone] | | | +--------+ + + + [...] Rd | | | | | | [place], [place] | | | | | | [address] | | | | | | [phone] | | | | | | | | +--------+ + + + + | 02/22/ | Procedure | Surgery | | | | 2020 | Pass | | | | +--------+ + + + + as of this encounter Visit Diagnoses Not on filein this encounter"
--- OUTSIDE RECORDS SUMMARY | ~2018-05-13 | XMS | Clinical Summary ---
Demographics + + + | Address | [address] | | | [place] [address] | + + + | Home Phone [...] + + + | Author | [facility] | + + + | Organization | [facility] | + + + | Address | Unknown | + + + | Phone | Unavailable | + + + Support + + +---------+ + | Name | Relationship | Address | Phone | + + +---------+ + | Jennifer Medellin | ECON | Unknown | | + + +---------+ + Care Team Providers + +------+ + | Care Candle Molder Name | Role | Phone | + [...] | | | + + +-------+---------+------+------+-------+ | fluconazole | [...] | Activ | | mononitrate (IMDUR) | daily. | | | | | e | | 30 MG 24 hr tablet | | | | | | | + + +-------+---------+------+------+-------+ | metoprolol | Take 25 mg by mouth | | | | | Activ | | (LOPRESSOR) 25 MG | 2 (two) times daily. | | | | | e | | tablet | | | | | | | + + +-------+---------+------+------+-------+ | nitroGLYCERIN | Place 0.4 mg under [...] | + + +-------+---------+------+------+-------+ | mesalamine | Take 1,200 mg by | | | | | Activ | | (LIALDA) 1.2 g EC | mouth daily with | | | | | e | | tablet | breakfast. | | | | | | + + +-------+---------+------+------+-------+ Active Problems + + + | Problem | Noted Date | + + + | Cholelithiasis | [...] Insulin dependent type 2 diabetes mellitus, uncontrolled ([facility]) | 09/16/2015 | + + + | Thrombocytopenia, unspecified ([facility]) | 09/16/2015 | + + + Encounters +--------+ + + + + | Date | Type | Specialty | Care Team | Description | +--------+ + + + + | 04/12/ | Documentati | | Kady Cortez | Other (Maximo Marsh | | 2018 | on Only | | [facility] [place] | [facility] | | | | | | Cath ) | +--------+ + + + + | 04/07/ | Initial | | Lakisha Kahn DO | Coronary artery | | 2019 | consult | | | disease, angina | | | | | | presence | | | | | | unspecified, | | | | | | unspecified vessel | | | | | | or lesion type, | | | | | | unspecified whether | | | | | | [place] or | | | | | | transplanted heart | | | | | | (Primary Dx); NSTEMI | | | | | | (non-ST elevated | | | | | | myocardial | | | | | | infarction) (HCC); | | | | | | Hypertension, | | | | | | unspecified type; | | | | | | Controlled diabetes | | | | | | mellitus type 2 with | | | | | | complications, | | | | | | unspecified whether | | | | | | political consultant insulin | | | | | | use (HCC); Hepatic | | | | | | cirrhosis, | | | | | | unspecified hepatic | | | | | | cirrhosis type, | | | | | | unspecified whether | | | | | | ascites present | | | | | | (HCC) | +--------+ + + + + | 03/14/ | Documentati | | Lakisha Kahn DO | | | 2019 | on Only | | | | +--------+ + + [...] + + + | Blood Pressure | 132/80 | 04/07/2018 9:31 AM PST | + + + + | Pulse | 65 | 04/07/2018 9:31 AM PST | + + + + | Temperature | 36.3 C (97.4 F) | 07/07/2016 10:19 AM PDT | + + + + | Respiratory Rate | 16 | 07/07/2016 10:19 AM PDT | + + + + | Oxygen Saturation | 98% | 04/07/2018 9:31 AM PST | + + + + | Inhaled Oxygen | - | - | | Concentration | | | + + + + | Weight | 104.3 kg (230 lb) | 04/07/2018 9:31 AM PST | + + + + | Height | 180.3 cm (5' 11") | 04/07/2018 9:31 AM PST | + + + + | Body Mass Index | 32.08 | 04/07/2018 9:31 AM PST | + + + + Plan of Treatment +--------+---------+ + + + | Date | Type | Specialty | Care Team | Description | +--------+---------+ + + + | 06/30/ | Office | | Lakisha Kahn DO | | | 2019 | Visit | | [address] | | | | | | [place] | | | | | | [address] | | | | | | | [...] | + +--------+ + + + | EK STANDARD 12 LEAD | Routin | 04/07/2018 | Coronary artery | Results for this | | | e | 9:39 AM | disease, angina | procedure are in the | | | | PST | presence | results section. | | | | | unspecified, | | | | | | unspecified vessel | | | | | | or lesion type, | | | | | | unspecified whether | | | | | | [place] or | | | | | | transplanted heart | | + +--------+ + + + from Last 3 Months Results EKG STANDARD 12 LEAD (04/07/2018 9:39 AM) + + + + + | Component | Value | Ref Range | Performed At | + + + + + | Ventricular Rate | 65 | BPM | [facility] | + + + + + | Atrial Rate | 65 | BPM | [facility] | + + + + + | P-R Interval | 186 | ms | [facility] | + + + + + | QRS Duration | 86 | ms | [facility] | + + + + + | Q-T Interval | 458 | ms | [facility] | + + + + + | QTC Calculation | 476 | ms | [facility] | | (Bezet) | | | | + + + + + | Calculated P [place] | 24 | degrees | [facility] | + + + + + | Calculated R [place] | 1 | degrees | [facility] | + + + + + | Calculated T [place] | -20 | degrees | [facility] | + + + + + | Diagnosis | Please refer to | | [facility] | | | Providers office visit | | | | | note for Providers | | | | | Interpretation.Confirmed | | | | | by [facility] [place] Read Only, | | | | | [facility] Josy ([id number]), | | | | | subeditor Chas Pagan | | | | | ([id number]) on 04/07/2018 | | | | | 9:43:38 AM | | | + + + + + + + + + + | Performing | Address | City/State/Zipcode | Phone Number | | Organization | | | | + + + + + | [facility] | [address] | [place] [address] | | + + + + + from Last 3 Months Insurance + +--------+ +------+-------+ + | Payer | Benefi | Subscriber | Type | Phone | Address | | | t Plan | ID | | | | | | / | | | | | | | Group | | | | | + +--------+ +------+-------+ + | MEDICAID | MEDICA | [id number] | | | [address] | | | ID | | | | [place], [place] | | | [place] | | | | [address] | + +--------+ +------+-------+ + | [facility] | YELLOW | [id number] | | | | | PLANS | [place] | | | | | + +--------+ +------+-------+ + + +--------+ +--------+ + + | Guarantor Name | Accoun | Relation to | Date | Phone | Billing Address | | | t Type | Patient | of | | | | | | | | | | + +--------+ +--------+ + + | BEHZAD ESPINAL | Person | Self [birth year] | Home: | [address] | | | al/Fam | | [phone] | [phone] [place] | | | eryn | | | [birth year] | [address] | + +--------+ +--------+ + +
--- OUTSIDE RECORDS SUMMARY | ~2018-05-13 | XMS | Encounter Summary ---
Demographics + + + | Address | [address] | | | [place] [address] | + + + | Home Phone [...] + + | Author | [facility] | + + + | Organization | [facility] | + + + | Address | Unknown | + + + | Phone | Unavailable | + + + Support + + +---------+ + | Name | Relationship | Address | Phone | + + +---------+ + | CAMRON OCHOA | ECON | Unknown | | + + +---------+ + Care Team Providers + +------+ + | Care Regional Account Manager Name | Role | Phone | [...] | | | | | pectoris, | [place], [place] | | | | | | unspecified | [address] | | | | | | vessel or | Phone: | | | | | | lesion type, | [phone] | | | | | | unspecified | Fax: | | | | | | whether | [phone] | | | | | | [place] or | | | | | | [...] + + + + | 03/01/ | Loss Prevention Operations Manager | [facility] | Clinton Morillo, | Coronary artery | | 2018 | | Center [address] | [address]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Rolando Rivas Mailcode: | [address] | pectoris, | | | | [facility] | [place], [place] | unspecified vessel | | | | [facility], | [address] | or lesion type, | | | | [address]th floor [place], | [phone] | unspecified whether | | | | [place] [address] | | [place] or | | | | [phone] | | transplanted heart | | | | | | ([facility]) (Primary Dx); | | | | | [...] Rd | | | | | | [place], [place] | | | | | | [address] | | | | | | [phone] | | | | | | | | +--------+ + + + + | 02/22/ | Procedure | Surgery | | | | 1 | Pass | | | | +--------+ + + + + as of this encounter Visit Diagnoses + + | Diagnosis | + + | Coronary artery disease with angina pectoris, unspecified vessel or lesion type, | | unspecified whether [place] or transplanted heart (HCC) - Primary | + + | Coronary artery calcification | + + | Anterior ST segment depression | + + | Inferior myocardial infarction (HCC) | + + | Acute myocardial infarction of other inferior wall, episode of care unspecified | + +"
--- OUTSIDE RECORDS SUMMARY | ~2018-05-13 | XMS | Encounter Summary ---
Demographics + + + | Address | [address] | | | [place] [address] | + + + | Home Phone [...] + + + | Author | [facility] | + + + | Organization | [facility] [employer] [facility] | + + + | Address | Unknown | + + + | Phone | Unavailable | + + + Support + + +---------+ + | Name | Relationship | Address | Phone | + + +---------+ + | Jennifer Medellin | ECON | Unknown | | + + +---------+ + Care Team Providers + +------+ + | Care Habitat Conservation Planner Name | Role | Phone | + +------+ + | Shakir Monzon MD | PCP | | + +------+ + Reason for Referral Cardiac Rehabilitation (Urgent) + +--------+ + + + + | Status | Reason | Specialty | Diagnoses / | Referred By | Referred To | | | | | Procedures | Contact | Contact | + +--------+ + + + + | Authorized | | Cardiac | Diagnoses | Femi, | [facility] | | | | Rehabilitatio | Coronary | DO Lakisha | Thang | | | | n | artery | [address] | | | | | disease, | [address] | [address] | | | | | angina | [address] | Way | | | | | presence | [place] | [place], [place] | | | | | unspecified, | [address] | [address] | | | | | unspecified | Phone: | Phone: | | | | | vessel or | [phone] | [phone] | | | | | lesion type, | Fax: | Fax: | | | | | unspecified | [phone] | [phone] | | | | | whether | | | | | | | [place] or | | | | | | | transplanted | | | | | | | heart | | | | | | | NSTEMI | | | | | | | (non-ST | | | | | | | elevated | | | | | | | myocardial | | | | | | | infarction) | | | | | | | ([facility]) | | | + +--------+ + + + + Reason for Visit + + + | Reason | Comments | + + + | Establish Care | CONSULT | + + + Consult and Treat (Routine) +--------+--------+ + + + + | Status | Reason | Specialty | Diagnoses / | Referred By | Referred To | | | | | Procedures | Contact | Contact | +--------+--------+ + + + + | Closed | | Cardiology | Diagnoses | Morillo, | Femi, | | | | | CAD | MD Clinton | DO Lakisha | | | | | Procedures | [address] | [address] | | | | | Consult | [address] | [address] | | | | | | Rd | [place], [place] | | | | | | [place], [place] | [address] Phone: | | | | | | [address] | [phone] | | | | | | Phone: | Fax: | | | | | | [phone] | [phone] | | | | | | Fax: | | | | | | | [phone] | | +--------+--------+ + + + + Encounter Details +--------+ + + + + | Date | Type | Department | Care Team | Description | +--------+ + + + + | 04/07/ | Initial | [facility] | Lakisha Kahn DO | Coronary artery | | 2019 | consult | Cardiology [place] | [address] | disease, angina | | | | [address] | [place], [place] | presence | | | | [place] [address] | [address] | unspecified, | | | | [place] [address] | | unspecified vessel | | | | [phone] | | or lesion type, | | | | | | unspecified whether | | | | | | [place] [...] whether | | | | | | senior care insulin | | | | | | [...] AM PST | + + + + in this encounter Progress Lakisha Block DO - 04/07/2018 9:20 AM PSTFormatting of this note may be different from bill javier. [facility] Cardiology Cardiology Consult Note Reason for Consultation: history CAD Requesting Physician: Clinton Morillo History Obtained From: patient/chart review HISTORY OF [...] C- treated 11. Gallbladder perforation July 2017 The patient is a 62-year-old male with the above past medical histories who presents to the cardiology office to establish care. He was previously followed at [facility]. He was last seen t here on 11/01/2017 for preoperative risk stratification for an upcoming gallbladder surgery. He has a history of a NSTEMI in April 2017, coronary angiography demonstrated severe coronar y artery disease, the films were reviewed by the interventional team at [facility] and it was deem ed that his [...] He still has the cholecystotomy tube in [facility]. He has been referred to cardiac rehab and went for his first session last week. Unfortun ately, he could only find cardiac rehab in [place] which is an hour drive each way. [...] denies any episodes of syncope or presyncope. Review of Systems Constitutional: positive for fatigue [...] ESOPHAGEAL VARICE LIGATION HAND SURGERY TONSILLECTOMY MEDICATIONS Home Medications Outpatient Encounter Prescriptions as of 04/07/2018 Medication Sig Dispense Refill fluconazole (DIFLUCAN) 200 MG tablet 200 mg. Take 1/2 tablet by mouth every day for 10 days for fungal infection insulin aspart (NOVOLOG) 100 UNIT/ML injection Inject XX units under the skin before me als for diabetes, sliding scale before meals insulin glargine (LANTUS) 100 UNIT/ML injection Inject 64 units under the skin at bedti me for diabetes isosorbide mononitrate (IMDUR) 30 MG 24 hr tablet Take 30 mg by mouth daily. lactulose (CHRONULAC) 10 GM/15ML solution Take 30ML by mouth three times a day losartan (COZAAR) 25 MG tablet Take 25 mg by mouth daily. Indications: High Blood Press ure mesalamine (LIALDA) 1.2 g EC tablet Take 1,200 mg by mouth daily with breakfast. metoprolol (LOPRESSOR) 25 MG tablet Take 25 mg by mouth 2 (two) times daily. nitroGLYCERIN (NITROSTAT) 0.[address] 0.4 mg under the tongue every 5 (five) minutes as needed for Chest pain. omeprazole (PRILOSEC) 40 MG capsule Take 40 mg by mouth daily. rifaximin (XIFAXAN) 550 MG TABS Take 550 mg by mouth 2 (two) times daily. rosuvastatin (CRESTOR) 10 MG tablet Take 10 mg by mouth nightly. [DISCONTINUED] Cholecalciferol 5000 units capsule Take 5,000 Units by mouth daily. [DISCONTINUED] metFORMIN (FORTAMET) 1000 MG (OSM) 24 hr tablet Take 1,000 mg by mouth 2 (two) times daily with meals. No facility-administered encounter medications on file as of 04/07/2018. Allergies Allergies Allergen Reactions Dilaudid [Hydromorphone] Other [...] Narrative No narrative on file PHYSICAL EXAM Vital Signs: BP 132/80 (BP Location: Right upper arm, Patient Position: Sitting) | Pulse 6 5 | Ht 1.803 m (5' 11") | Wt 104.3 kg (230 lb) | SpO2 98% | BMI 32.08 kg/m Physical Exam GENERAL: Well developed, well nourished, in no distress. Appears approximately stated age . HEENT: Normocephalic, atraumatic. EYES: PERRL, sclerae anicteric, no xanthelsasmas NECK: No JVD, lymphadenopathy, thyromegaly, bruits. Carotid pulses are 2+ bilaterally LUNGS: Clear bilaterally, with no rales, rhonchi or wheezing noted, respirations unlabored HEART: Nondisplaced PMI, regular rate and rhythm, S1, S2 normal. No murmurs, rubs or gall ops noted. ABDOMEN: Soft, nontender, he has hepatomegaly, cholecystotomy tube in place draining bile without any surrounding erythema. Bowel sounds are normal in all 4 quadrants. EXTREMITIES: No edema. Radial pulses 2+ bilaterally. Femoral pulses are 2+ bilaterally wi thout bruits. DP and PT pulses are 2+ bilaterally. SKIN: Warm and dry, capillary refill is normal, no lesions. NEUROLOGIC: Awake, alert and oriented x 3. No focal motor deficits. PSYCHIATRIC: Appropriate, affect appears normal DATA Most recent blood work from 02/16/2018 reviewed including white blood cell count 5.68, hemogl obin 13.9, hematocrit 38.0, platelets 72, B1 13, creatinine 0.82, potassium 5.0, chloride 11 3, calcium 8.1, total bilirubin 1.6, total protein 6.8, albumin 2.8, alkaline phosphatase 11 4, AST 99, a.l. T-20 9, his last [...] C- treated 11. Gallbladder perforation July 2017 - The patient is a 62-year-old male with complex past medical history as above who presents to the cardiology office to establish care. Recently, he has been doing well. He denies any exertional chest pains, but does have exertional shortness of breath which could be an rosy nal equivalent but could also be related to COPD or deconditioning. He has recently establis hed with cardiac rehab in [place], but wishes to establish with cardiac rehab here in [facility]. He denies any heart failure symptoms. He denies any palpitations. - Continue Crestor 10 mg by mouth daily, continue metoprolol titrate 25 mg by mouth twice d aily, continue losartan 25 mg by mouth daily, continue Imdur 30 mg by mouth daily. Continue SL nitro PRN. - He is currently not on a baby ASA. He was advised to start ASA 81mg po daily. - Will request his angiogram films for review. - I agree that at this time his is high risk for semi-elective surgery. No further cardiac testing is indicated for risk stratification. - Will refer the patient to cardiac rehab here in [place] - Follow up in 3 months Thank you for allowing me to participate in the care of this patient. Primary Care Physician: SHAKIR Kahn DO 04/07/2018in this encounter Plan of Treatment +--------+---------+ + + + | Date | Type | Specialty | Care Team | Description | +--------+---------+ + + + | 06/30/ | Office | Cardiology | Lakisha Kahn DO | | | 2019 | Visit | | [address] | | | | | | [place] [facility] | | | | | | [address] | | | | | | | | +--------+---------+ + + + + +--------+ + + | Name | Priori | Associated Diagnoses | Order Schedule | | | ty | | | + +--------+ + + | Ambulatory referral to Cardiac | Routin | Coronary artery | Ordered: 04/07/2018 | | Rehab | e | disease, angina | | | | | presence | | | | | unspecified, | | | | | unspecified vessel | | | | | or lesion type, | | | | | unspecified whether | | | | | [place] or | | | | | transplanted heart | | | | | NSTEMI (non-ST | | | | | elevated myocardial | | | | | infarction) (HCC) | | + +--------+ + + as of this encounter Procedures + +--------+ + + + | Procedure Name | Priori | Date/Time | Associated Diagnosis | Comments | | | ty | | | | + +--------+ + + + | EKG STANDARD 12 LEAD | Routin | 04/07/2018 [...] whether | | | | | | [place] or | | | | | | transplanted heart | | + +--------+ + + + in this encounter Results EKG STANDARD 12 LEAD (04/07/2018 9:39 [...] | ms | [facility] | | ([place]) | | | | + + + + + | Calculated P [place] | 24 | degrees | [facility] | + + + + + | Calculated R [place] | 1 | degrees | [facility] | + + + + + | Calculated T [place] | -20 | degrees | [facility] | + + + + + | Diagnosis | Please refer to | | [facility] | | | Providers office visit | | | | | note for Providers | | | | | Interpretation.Confirmed | | | | | by [facility] [place] Read Only, | | | | | [facility] Carolyn ([id number]), | | | | | magazine editor Chas Pagan | | | | | (000) on 04/07/2018 | | | | | 9:43:38 AM | | | + + + + + + + + + + | Performing | Address | City/State/Zipcode | Phone Number | | Organization | | | | + + + + + | [facility] | [address] | [place] [address] | | + + + + + in this encounter Visit Diagnoses + + | Diagnosis | + + | Coronary artery disease, angina presence unspecified, unspecified vessel or lesion | | type, unspecified whether [place] or transplanted heart - Primary | + + | NSTEMI (non-ST elevated myocardial infarction) (HCC) | + + | Acute myocardial infarction, subendocardial infarction, episode of care unspecified | + + | Hypertension, unspecified type | + + | Controlled diabetes mellitus type 2 with complications, unspecified whether senior care | | insulin use (HCC) | + + | Hepatic cirrhosis, unspecified hepatic cirrhosis type, unspecified whether ascites | | present (HCC) | + +
--- OUTSIDE RECORDS SUMMARY | ~2018-05-13 | XMS | Encounter Summary ---
Demographics + + + | Address | [address] | | | [place] [address] | + + + | Home Phone [...] Author + + + | Author | [facility] [employer] [facility] | + + + | Organization | [facility] [employer] [facility] | + + + | Address | Unknown | + + + | Phone | Unavailable | + + + Support + + +---------+ + | Name | Relationship | Address | Phone | + + +---------+ + | CAMRON OCHOA | ECON | Unknown | | + + +---------+ + Care Team Providers + +------+ + | Care Security Developer Name | Role | Phone | [...] | 02/16/ | Office | Preoperative | Marimaa Navarro | Preop examination | | 2019 | Visit | Medicine Clinic at | MD Annette [address] | (Primary Dx); | | | | MPV 4th Floor Day | [address] | Cholangitis; | | | | Stay [address] | [place] [address] | Gallbladder | | | | [address] | [phone] | perforation | | | | Mailcode: [id number] | | | | | | Vivian Mazariegos | | | | | | [address] [place], [place] | | | | | | [address] | | | | | | [phone] | | | +--------+---------+ + + + [...] of this encounter Instructions Patient Instructions - Mariama Navarro MD - 02/16/2018 8:00 AM PSTPREOPERATIVE INSTRUC TIONS Empty stomach before surgery On the day [...] or walk. Surgery check-in location: Admitting - [facility], ninth floor lob Surgery Check in [...] it is after office hours, call the [facility] bush hog operator at [phone] and ask them to page him or h er. in this encounter Progress Notes Mahin Middleton MA - 02/16/2018 8:00 AM PSTVenipuncture performed in clinic, blood sampl e obtained from Right antecubital site Mariama Navarro MD - 02/16/2018 8:00 AM PSTForma tting of this note may be different from the original. 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 No hx of COPD shortness of breath with exer tion no cough no stridor no wheezing no Recent Respiratory Infection Pt. Has no asthma no COPD Dx of sleep apnea Untreated Cardiovascular: Functional Capacity: Low - cyanosis, palpitations and syncope chest pain with exertion no CHF no hypertension CA D Sx medically managed past CT Last CT: < 1 year no valvular problems/murmurs no [...] RCA and PL-1 [facility] and "[facility]" tab. Findings pertinent to this [...] on beta ashlyn and followed by a public works inspector. Estimated ASA class 4 ASSESSMENT and RECOMMENDATIONS: Perioperative risk assessment: Bret Espinal Jr. is a 62 y.o. male with diagnosis [...] need close angela-op monitoring of respiratory status. Ava madden BiPap and/or nocturnal oximetry and RT [...] and needs scheduling phone call to either tn rashawn or his SO Camron's mobile numbers (in [facility]). Thank you for the opportunity to contribute to this patient's care. Mariama Navarro MD [facility] PREOPERATIVE MEDICINE CLINIC AT [facility] 4TH FLOOR DAY STAY [address] [facility] [address] I spent time (60 minutes, >50% [...] patient verbalized understanding of the instructions given. in this encounter Plan of Treatment +--------+ [...] Rd | | | | | | [place], [place] | | | | | | [address] | | | | | | [phone] | | | | | | | [...] | + +--------+ + + + | OR COLLECTION VENOUS | Routin | 02/16/2018 | [...] encounter Results CBC (HEMOGRAM) ONLY (02/16/2018 8:12 AM) + + + + + | Component | Value | Ref Range | Performed At | + + + + + | WHITE CELL COUNT | 5.68 | 3.50 - 10.80 K/cu mm | [facility] | | | | | SERVICES, CORE | + + + + + | RED CELL COUNT | 4.36 (L) | 4.50 - 6.00 M/cu mm | [facility] | | | | | SERVICES, CORE | + + + + + | HEMOGLOBIN | 13.9 | 13.5 - 17.5 g/dL | [facility] | | | | | SERVICES, [...] | 35.1 - 46.3 fL | [facility] | | | [...] [facility] | [address] | [place] [address] | | | SERVICES, CORE | PARK [...] >60 mL/min | [facility] | | MALAGASY | | | SERVICES, CORE | + +---------+ + + | EGFR NON | >60 | >60 mL/min | [facility] | | -MALAGASY | | | SERVICES, CORE | + [...] LABORATORY | | CORRECTED) | | | [place], [facility] | + +---------+ + + | BILIRUBIN [...] CORE | + +---------+ + + | SANDRA CMNT | Mk Hemo | | [facility] | | | | | SERVICES, CORE | + +---------+ + + | LEIDY Andrews CMNT | Mk Hemo | | [facility] [...] + + + + + | [facility] [employer] | [address] [facility] | [place] [address] | | | SERVICES, JORGE L | [...] ng/mLCotinine 5 | | | | | ng/tN3-FG-Ckqcwiyf 50 | | | | | ng/mLNornicotine [...] | | | | | determined by [facility] | | | | | Laboratories. See | | | | | Compliance Statement B: | | | | | STAT-[email or web address]/CSPerformed | | | | | by Tasted Menu,500 | | | | | Marky Tapia [facility] [place],[place] | | | | | [address] | | | | | [phone].[employer]. | | | | | com, Júnior Myers MD, | | | | | Lab. [...] | + + + + + | 9-GF-DNKOVEIZ, URINE | 54Comment: Nicotine is | ng/mL | [facility] | | | metabolized to cotinine, | | [facility] - | | | and 2-NH-bawfyzih is | | [facility] | | | ametabolite of | | | | | cotinine. After | | | | | cessation from long-term | | | | | orheavy use of nicotine | | | | | products, 8-GK-nprpezau | | | | | may persistfor [...] [facility] | [address] | [place], [place] | | | [facility] | | [address] | | + + + + + INR (02/16/2018 8:12 AM) + +-------+ + + | Component | Value | Ref Range | Performed At | + +-------+ + + | INR | 1.08 | 0.90 - 1.20 INR | [facility] | | | | | [...] | + + + + + | [facility] | [address] | [place] [address] | | | SERVICES, CORE | [address] | | | + + + + + ANTIBODY SCREEN (02/16/2018 8:09 AM) + + + + + | Component | Value | Ref Range | Performed At | + + + + + | Antibody Screen | Negative | | [facility] | | | | | SERVICES, [...] | + + + + + | [facility] | [address] | [place] [address] | | | SERVICES, | [address] | | | | TRANSFUSION MEDICINE | | | | + + + + + ABO & RH TYPE (02/16/2018 8:09 AM) + + + + + | Component | Value | Ref Range | Performed At | + + + + + | ABO Group | A | | [facility] | | | | | SERVICES, [...] [facility] | [address] | [place] [address] | | | SERVICES, | [address] | | | | TRANSFUSION MEDICINE | | | | + + + + + in this encounter Visit Diagnoses + + | Diagnosis | + + | Preop examination - Primary | + + | Preoperative examination, unspecified | + + | Cholangitis | + + | Gallbladder perforation | + + | Perforation of gallbladder | + +
--- OUTSIDE RECORDS SUMMARY | ~2018-05-13 | XMS | Encounter Summary ---
Demographics + + + | Address | [address] | | | [place] [address] | + + + | Home Phone | | + + + | Preferred Language | Unknown | + + + | Marital Status | Single | + + + | Church Affiliation | NRP | + + + | Race | or | + + + | Ethnic Group | Not or | + + + Author + + + | Author | [facility] | + + + | Organization | [facility] | + + + | Address | Unknown | + + + | Phone | Unavailable | + + + Support + + +---------+ + | Name | Relationship | Address | Phone | + + +---------+ + | CAMRON OCHOA | ECON | Unknown | | + + +---------+ + Care Team Providers + +------+ + | Care Front Office Manager Name | Role | Phone | [...] encounter | | 2019 | | Center [address] | [address] | | | | | Rolando Rivas Mailcode: | [address] | | | | | [facility] | [place], [place] | | | | | Health and Healing, | [address] | | | | | 6th floor [place], | [phone] | | | | | [place] [address] | | | | | | [phone] | | | +--------+ + + + [...] Rd | | | | | | [place], [place] | | | | | | [address] | | | | | | [phone] | | | | | | | | +--------+ + + + + | 02/22/ | Procedure | Surgery | | | | 2020 | Pass | | | | +--------+ + + + + as of this encounter Visit Diagnoses Not on filein this encounter"
--- OUTSIDE RECORDS SUMMARY | ~2018-05-13 | XMS | Encounter Summary ---
Demographics + + + | Address | [address] | | | [place] [address] | + + + | Home Phone [...] | Organization | [facility] | | | and [place] | + [...] Providers + +------+ + | Care Belt Measurer Name | Role | Phone | + [...] Closed | | Cardiac | Diagnoses | Ilia | [facility] | | | | Rehabilitatio | Non-ST | MD Clinton | | | | | n | elevation | [address] | Rehabilitatio | | | | | (NSTEMI) | [facility] | [address] | | | | | myocardial | Rd | [place] | | | | | infarction | [place], [place] | [place], [place] | | | | | (HCC) | [address] | [address] | | | | | Coronary | Phone: | Phone: | | | | | Artery | [phone] | [phone] | | | | | Disease | Fax: | Fax: | | | | | Procedures | [phone] | [phone] | | | | | Cardiac Eval | | | +--------+--------+ + + + + Encounter Details +--------+---------+ + + + | Date | Type | Department | Care Team | Description | +--------+---------+ + + + | 03/29/ | Office | [facility] | MorilloEliztt, | NSTEMI (non-ST | | 2019 | Visit | [facility] | [address] | elevated myocardial | | | | REHABILITATION [address] | infarction) (HCC) | | | | [address] | [place], [place] | (Primary Dx) | | | | [place] [address] | [address] | | | | | [phone] | [phone] | | | | | | | [...] + as of this encounter Progress Notes Sherri Pruett RN - 03/29/2018 1000 PSTFormatting of this note may be different from the or iginal. [facility] CARDIAC REHABILITATION [address] [facility] [address] Cardiac Rehab Evaluation Date: 03/29/2018 Patient Information Patient Name: Bret Espinal Jr. Date of : 1955 Age: 62 y.o. Referring Provider: Clinton Morillo MD Encounter Diagnoses Code Name Primary? I21.4 NSTEMI (non-ST elevated myocardial infarction) (HCC) Yes Cardiac Rehab Phase II Alexander atment Plan Bret Espinal Jr. (Jim) Is a 62 year old patient with a history of ETOH abuse (sober,) cirr bharati, DM II, gallbladder perforation in July 2017 with angela-hilar abscesses and biliary str icture, s/p cholecystostomy tube placement. In early April 2017 he presented at [place] [facility] with chest pain and abdominal discomfort [...] conversation they appear to have good comprehension. Krames: Living Well with Heart Disease book Date received: 03/29/18 Ta rget Goal(s) Aerobic- moderate intensity activity 30 to [...] Healthy Dietary Education Date: 03/29/18 -Referral to Boat Loader: Date: -DVD: Healthy Eating For Life Date: [...] he does not drink high caloric dr josiah. -Understanding blood pressure and goal blood pressure [...] Monzon who is resigning Interventions -Referral to Inspector Handbag Frames Date: Education Points listed below- Date Completed: [...] RN, 03/29/2018 12:38 Patient Name: Bret Espinal Jr./: 1955/ isac hirschte r Plan of Treatment Not on fileas of this encounter Visit Diagnoses + + | Diagnosis | + + | NSTEMI (non-ST elevated myocardial infarction) (HCC) - Primary | + + | Acute myocardial infarction, subendocardial infarction, episode of care unspecified | + +
--- OUTSIDE RECORDS SUMMARY | ~2018-05-13 | XMS | Encounter Summary ---
Demographics + + + | Address | [address] | | | [place] [address] | + + + | Home Phone [...] Author + + + | Author | [facility] [employer] [facility] | + + + | Organization | [facility] [employer] [facility] | + + + | Address [...] [address] | | | | [address] | [place], [place] | | | | | Health and Healing, | [address] | | | | | 6th floor [place], | [phone] | | | | | [place] [address] | | | | | | [phone] | | | +--------+ + + + [...] Rd | | | | | | [place], [place] | | | | | | [address] | | | | | | [phone] | | | | | | | | +--------+ + + + + | 02/22/ | Procedure | Surgery | | | | 2020 | Pass | | | | +--------+ + + + + as of this encounter Visit Diagnoses Not on filein this encounter"
[~2018-05-13 11:44] MED LIST changes: +COLOCORT100 MG/60 PR; +ENULOSE10 GM/15 M PO; +ISOSORBIDE MONO30 MG PO; +MESALAMINE1.2 GM PO; +METOPROLOL TART25 MG PO; +METRONIDAZOLE250 MG PO; +NITROSTAT0.4 MG SL; +PREDNISONE10 MG PO; +ZOVIRAX5 GM TOP; +ZOVIRAX800 MG PO
--- OUTSIDE RECORDS SUMMARY | 2018-05-13 11:48 | XMS ---
[employer] Notification: BEHZAD LANDON Security Education Dean Events No recent Security Events currently on file CRITERIA MET - [facility] CARE PROVIDERS DR ANDREEA CHILDRESS Primary Care Current PHONE: [phone] Ciaran has no Care Guidelines for this patient. E.Ann Marie VISIT COUNT (12 MO.) 1 Conor [facility] 2 [facility] [place] TOTAL 3 NOTE: Visits indicate total known visits. ED/UCC VISIT TRACKING (12 MO.) 05/13/2018 11:45 [facility] Aguilar TYPE: Emergency COMPLAINT: - GALL TUBE ISSUES 11/08/2017 11:06 [facility] [place] TYPE: Emergency COMPLAINT: - ABD PAIN 08/03/2017 01:25 [facility] JOSE TYPE: Emergency DIAGNOSES: - Unspecified cirrhosis of liver - Calculus of gallbladder and bile duct with acute cholecystitis without obstruction - cp - Back Pain - Unspecified abdominal pain - Chest Pain INPATIENT VISIT TRACKING ( [place].) 08/03/2017 10:09 [facility] TYPE: Surgery DIAGNOSES: 35745. ruptured gallbladder with stones 89548. Perforation of gallbladder [email or web address]
== END 2018-05-13 14:00 | disposition home or self-care (01) ==
LOC: ED 11:44
DX: Z46.82 Encounter for fitting and adjustment of non-vascular catheter (principal); E11.9 Type 2 diabetes mellitus without complications; I10 Essential (primary) hypertension; Z79.899 Other long term (current) drug therapy; Z79.52 Long term (current) use of systemic steroids; Z79.891 Long term (current) use of opiate analgesic
CPT/HCPCS: 12001; 99283-25

== ENCOUNTER 2018-12-18 17:31 | Emergency (ER) | payer OTHER ==
[~2018-12-18] VITALS: Ht 177.8 cm; Wt 109.0 kg
--- OUTSIDE RECORDS SUMMARY | ~2018-12-18 | XMS | Clinical Summary ---
Demographics + + + | Address | [address] | | | [place] [address] | + + + | Home Phone | | + + + | Preferred Language | Unknown | + + + | Marital Status | Single | + + + | Sikh Affiliation | Unknown | + + + | Race | Unknown | + + + | Ethnic Group | Unknown | + + + Author + + + | Author | [facility] (Historical as of | | | 10-01-18) | + + + | Organization | [facility] (Historical as of | | | 10-01-18) | + + + | Address | Unknown | + + + | Phone | Unavailable | + + + Support + + +---------+ + | Name | Relationship | Address | Phone | + + +---------+ + | Jennifer Medellin | ECON | Unknown | | + + +---------+ + Care Team Providers + +------+ + | Care Public Address System Installer Name | Role | Phone | + +------+ + | Shakir Monzon MD | PP | | + +------+ + Allergies + + + + + + | Active Allergy | Reactions | Severity | Noted | Comments | | | | | Date | | + + + + + + | Hydromorphone | Other (See Comments) | Medium | 04/07/19 | Patient became | | | | | 19 | overly aggressive. | + + + + + + Current Medications + + +--------+---------+------+------+-------+ | Prescription | Sig. | Disp. | Refills | Star | End | Statu | | | | | | t | Date | s | | | | | | Date | | | + + +--------+---------+------+------+-------+ | fluconazole | 200 mg. Take 1/2 | | | | | Activ | | (DIFLUCAN) 200 MG | tablet by mouth | | | | | e | | tablet | every day for 10 | | | | | | | | days for fungal | | | | | | | | infection | | | | | | + + +--------+---------+------+------+-------+ | insulin glargine | Inject 64 units | | | | | Activ | | (LANTUS) 100 UNIT/ML | under the skin at | | | | | e | | injection | bedtime for diabetes | | | | | | + + +--------+---------+------+------+-------+ | insulin aspart | Inject XX units | | | | | Activ | | (NOVOLOG) 100 | under the skin | | | | | e | | UNIT/ML injection | before meals for | | | | | | | | diabetes, sliding | | | | | | | | scale before meals | | | | | | + + +--------+---------+------+------+-------+ | lactulose | Take 30ML by mouth | | | | | Activ | | (CHRONULAC) 10 | three times a day | | | | | e | | GM/15ML solution | | | | | | | + + +--------+---------+------+------+-------+ | losartan (COZAAR) | Take 25 mg by mouth | | | | | Activ | | 25 MG | daily. Indications: | | | | | e | | tabletIndications: | High Blood Pressure | | | | | | | Hypertension | | | | | | | + + +--------+---------+------+------+-------+ | omeprazole | Take 40 mg by mouth | | | | | Activ | | (PRILOSEC) 40 MG | daily. | | | | | e | | capsule | | | | | | | + + +--------+---------+------+------+-------+ | rifaximin | Take 550 mg by mouth | | | | | Activ | | (XIFAXAN) 550 MG | 2 (two) times | | | | | e | | TABS | daily. | | | | | | + + +--------+---------+------+------+-------+ | metoprolol | Take 25 mg by mouth | | | | | Activ | | (LOPRESSOR) 25 MG | 2 (two) times daily. | | | | | e | | tablet | | | | | | | + + +--------+---------+------+------+-------+ | nitroGLYCERIN | Place 0.4 mg under | | | | | Activ | | (NITROSTAT) 0.4 MG | the tongue every 5 | | | | | e | | SL tablet | (five) minutes as | | | | | | | | needed for Chest | | | | | | | | pain. | | | | | | + + +--------+---------+------+------+-------+ | rosuvastatin | Take 10 mg by mouth | | | | | Activ | | (CRESTOR) 10 MG | nightly. | | | | | e | | tablet | | | | | | | + + +--------+---------+------+------+-------+ | mesalamine | Take 1,200 mg by | | | | | Activ | | (LIALDA) 1.2 g EC | mouth daily with | | | | | e | | tablet | breakfast. | | | | | | + + +--------+---------+------+------+-------+ | isosorbide | Take 1 tablet by | 30 | 5 | 05/1 | | Activ | | mononitrate 60 MG 24 | mouth daily. 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) | 07/24/2016 | + + + | Chronic hep C, GT 1a VL 3.4 million IU/mL, Decompensated | 07/07/2016 | | Cirrhosis | | + + + | Alcoholic / viral cirrhosis of liver with ascites (HCC) | 07/07/2016 | + + + | Alcohol use disorder, moderate, in early remission (HCC) | 03/24/2016 | + + + | Cirrhosis of liver without ascites (HCC) | 03/24/2016 | + + + | Insulin dependent type 2 diabetes mellitus, uncontrolled (HCC) | 09/16/2015 | + + + | Thrombocytopenia, unspecified (HCC) | 09/16/2015 | + + + Family History + + +------+ + | Medical History | Relation | Name | Comments | + + +------+ + | Cancer | Father | | | + + +------+ + | Heart attack | Father | | | + + +------+ + + +------+ + + | Relation | Name | Status | Comments | + +------+ + + | Father | | | | + +------+ + + | Mother | | Alive | | + +------+ + + Social History + +-------+ +--------+------+ | Tobacco Use | Types | Packs/Day | Years | Date | | | | | Used | | + +-------+ +--------+------+ | Former Smoker | | | | | + +-------+ +--------+------+ + +---+---+---+ | Smokeless Tobacco: | | | | | Never Used | | | | + +---+---+---+ + + +---------+ + | Alcohol Use | Drinks/We | oz/Week | Comments | | | ek | | | + + +---------+ + | No | | | | + + +---------+ + + + + | Sex Assigned at | Date Recorded | | | | + + + | Not on file | | + + + Last Filed Vital Signs + + + + | Vital Sign | Reading | Time Taken | + + + + | Blood Pressure | 134/68 | 06/30/2018 9:03 AM PDT | + + + + | Pulse | 63 | 06/30/2018 9:03 AM PDT | + + + + | Temperature | 36.3 C (97.4 F) | 07/07/2016 10:19 AM PDT | + + + + | Respiratory Rate | 16 | 07/07/2016 10:19 AM PDT | + + + + | Oxygen Saturation | 98% | 06/30/2018 9:03 AM PDT | + + + + | Inhaled Oxygen | - | - | | Concentration | | | + + + + | Weight | 102.5 kg (226 lb) | 06/30/2018 9:03 AM PDT | + + + + | Height | 180.3 cm (5' 11") | 06/30/2018 9:03 AM PDT | + + + + | Body Mass Index | 31.52 | 06/30/2018 9:03 AM PDT | + + + + Plan of Treatment + + + + + | Health Maintenance | Due Date | Last Done | Comments | + + + + + | Diabetic Eye Exam | | | | | | 6 | | | + + + + + | Diabetic Foot Exam | | | | | | 6 | | | + + + + + | Hemoglobin A1c | | | | | | 6 | | | + + + + + | Microalbumin | | | | | Screening | 6 | | | + + + + + | Vaccine: | | | | | Dtap/Tdap/Td (1 - | 5 | | | | Tdap) | | | | + + + + + | Vaccine: | | | | | Pneumococcal 19-64 | 5 | | | | (PPSV23 only) Medium | | | | | Risk (1 of 1 - | | | | | PPSV23) | | | | + + + + + | Colon Cancer | | | | | Screening | 6 | | | | (Colonoscopy) | | | | + + + + + | Vaccine: Zoster (1 | | | | | of 2) | 6 | | | + + + + + | Vaccine: Influenza | | | | | (#1) | 9 | | | + + + + + Results Not on filefrom Last 3 Months Insurance + +--------+ +------+-------+---------+ | Payer | Benefi | Subscriber | Type | Phone | Address | | | t Plan | ID | | | | | | / | | | | | | | Group | | | | | + +--------+ +------+-------+---------+ | [employer] [employer] | YELLOW | [id number] | | | | | PLANS | [place] | | | | | + +--------+ +------+-------+---------+ + +--------+ +--------+ + + | Guarantor Name | Accoun | Relation to | Date | Phone | Billing Address | | | t Type | Patient | of | | | | | | | | | | + +--------+ +--------+ + + | BEHZAD ESPINAL | Person | Self [birth year] | Home: | [address] | | | al/Fam | | [phone] | [phone] [place] | | | eryn | | | [phone] | [address] | + +--------+ +--------+ + +
--- OUTSIDE RECORDS SUMMARY | ~2018-12-18 | XMS | Encounter Summary ---
Demographics + + + | Address | [address] | | | [place] [address] | + + + | Home Phone | | + + + | Preferred Language | Unknown | + + + | Marital Status | Single | + + + | Mormon Affiliation | NRP | + + + | Race | or | + + + | Ethnic Group | Not or | + + + Author + + + | Author | [facility] | + + + | Organization | [facility] [employer] [facility] | + + + | Address | Unknown | + + + | Phone | Unavailable | + + + Support + + +---------+ + | Name | Relationship | Address | Phone | + + +---------+ + | Mary Medellin | ECON | Unknown | | + + +---------+ + Care Team Providers + +------+ + | Care Embedded Software Manager Name | Role | Phone | + +------+ + | Shakir Monzon MD | PCP | | + +------+ + Reason for Visit + + + | Reason | Comments | + + + | Medical Records | | | Review | | + + + Encounter Details +--------+ + + + + | Date | Type | Department | Care Team | Description | +--------+ + + + + | 01/11/ | Abstract | Digestive Health | Clinton Morillo, | Medical Records | | 2018 | | Center at [facility] [address] | [address] | Review | | | | [address] | [facility] | | | | | Mailcode: Center | [place], [place] | | | | | [facility] and | [address] | | | | | [facility] 2 | [phone] | | | | | [place], [place] | | | | | | [address] | | | | | | [phone] | | | +--------+ + + + + Social History + + + +--------+------+ | Tobacco Use | Types | Packs/Day | Years | Date | | | | | Used | | + + + +--------+------+ | Current Every Day | Cigarettes | 0.1 | 40 | | | Smoker | | | [...] + + documented as of this encounter Functional Status + + + + | Functional Status | Response | Date of Assessment | + + + + | Because of a physical, mental, or emotional | No | 08/03/2017 | | condition, do you have serious difficulty | | | | doing errands alone such as visiting the | | | | doctor? | | | + + + + + + + + | Cognitive Status | Response | Date of Assessment | + + + + | Because of a physical, mental, or emotional | No | 08/03/2017 | | condition, do you have serious difficulty | | | | concentrating, remembering, or making | | | | decisions? (5 years old or older) | | | + + + + documented as of this encounter Plan of Treatment +--------+ + + + + | Date | Type | Specialty | Care Team | Description | +--------+ + + + + | 02/22/ | Procedure | Surgery | | | | 2020 | Pass | | | | +--------+ + + + + documented as of this encounter Visit Diagnoses Not on filedocumented in this encounter"
--- OUTSIDE RECORDS SUMMARY | ~2018-12-18 | XMS | Encounter Summary ---
Demographics + + + | Address | [address] | | | [place] [address] | + + + | Home Phone | | + + + | Preferred Language | Unknown | + + + | Marital Status | Single | + + + | Orthodoxy Affiliation | NRP | + + + | Race | or | + + + | Ethnic Group | Not or | + + + Author + + + | Author | [facility] | + + + | Organization | [facility] [employer] [facility] | + + + | Address | Unknown | + + + | Phone | Unavailable | + + + Support + + +---------+ + | Name | Relationship | Address | Phone | + + +---------+ + | Mary Medellin | ECON | Unknown | | + + +---------+ + Care Team Providers + +------+ + | Care Cigar Packer And Sorter Name | Role | Phone | + +------+ + | Shakir Monzon MD | PCP | | + +------+ + Reason for Visit + + + | Reason | Comments | + + + | Referral To | | | Gastroenterology | | + + + Encounter Details +--------+ + + + + | Date | Type | Department | Care Team | Description | +--------+ + + + + | 07/28/ | Abstract | Digestive Health | Clinic, | Referral To | | 2016 | | Center at [facility] [address] | Gastroenterology | Gastroenterology | | | | [address] | | | | | | Mailcode: OC8D | | | | | | [facility] | | | | | | and Healing, | | | | | | [address] | | | | | | [place], [place] | | | | | | [address] | | | | | | [phone] | | | +--------+ + + + + Social History + +-------+ +--------+------+ | Tobacco Use | Types | Packs/Day | Years | Date | | | | | Used | | + +-------+ +--------+------+ | Never Assessed | | | | | + +-------+ +--------+------+ + + + | Sex Assigned at [...]
--- OUTSIDE RECORDS SUMMARY | ~2018-12-18 | XMS | Encounter Summary ---
Demographics + + + | Address | [address] | | | [place] [address] | + + + | Home Phone [...] + + | Author | [facility] | + + + | Organization | [facility] [employer] [facility] | + + + | Address | Unknown | + + + | Phone | Unavailable | + + + Support + + +---------+ + | Name | Relationship | Address | Phone | + + +---------+ + | Mary Medellin | ECON | Unknown | | + + +---------+ + Care Team Providers + +------+ + | Care Weaving Inspector Name | Role | Phone | + +------+ + | Shakir Monzon MD | PCP | | + +------+ + Encounter Details +--------+ + + + + | Date | Type | Department | Care Team | Description | +--------+ + + + + | 10/16/ | Vice President Of Business Development | Digestive Health | Bessy Solano, | | | 2016 | | Center [place] [address] [address] | [address] | | | | | [address] | [facility] | | | | | Mailcode: OC8D | [place], [place] | | | | | [facility] | [address] | | | | | and Healing, | [phone] | | | | | [address] | | | | | | [place], [place] | | | | | | [address] | | | | | | [phone] | | | +--------+ + + + [...]
--- OUTSIDE RECORDS SUMMARY | ~2018-12-18 | XMS | Encounter Summary ---
Demographics + + + | Address | [address] | | | [place] [address] | + + + | Home Phone | | + + + | Preferred Language | Unknown | + + + | Marital Status | Single | + + + | Congregational Affiliation | NRP | + + + | Race | or | + + + | Ethnic Group | Not or | + + + Author + + + | Author | [facility] | + + + | Organization | [facility] [employer] [facility] | + + + | Address | Unknown | + + + | Phone | Unavailable | + + + Support + + +---------+ + | Name | Relationship | Address | Phone | + + +---------+ + | Mary Medellin | ECON | Unknown | | + + +---------+ + Care Team Providers + +------+ + | Care Document Clerk Name | Role | Phone | + [...] + + | 04/12/ | Abstract | Digestive Health | Clinton Morillo, | Medical Records | | 2019 | | Center at [facility] [address] | [address] | Review | | | | [address] | [facility] | | | | | Mailcode: Center | [place], [place] | | | | | [facility] and | [address] | | | | | [facility], [facility] 2 | [phone] | | | | | [place], [place] | | | | | | [address] | | | | | | [phone] | | | +--------+ + + + [...]
--- OUTSIDE RECORDS SUMMARY | ~2018-12-18 | XMS | Encounter Summary ---
Demographics + + + | Address | [address] | | | [place] [address] | + + + | Home Phone | | + + + | Preferred Language | Unknown | + + + | Marital Status | Single | + + + | Scientologist Affiliation | NRP | + + + | Race | or | + + + | Ethnic Group | Not or | + + + Author + + + | Author | [facility] | + + + | Organization | [facility] [employer] [facility] | + + + | Address | Unknown | + + + | Phone | Unavailable | + + + Support + + +---------+ + | Name | Relationship | Address | Phone | + + +---------+ + | Mary Medellin | ECON | Unknown | | + + +---------+ + Care Team Providers + +------+ + | Care Orbitread Operator Name | Role | Phone | + +------+ + | Shakir Monzon MD | PCP | | + +------+ + Reason for Visit + + + | Reason | Comments | + + + | Abdominal pain | CBD Stone | + + + | Other | Bacteremia | + + + | Chest pain | A Fib | + + + Encounter Details +--------+ + + + + | Date | Type | Department | Care Team | Description | +--------+ + + + + | 04/28/ | Emergency | [facility] Emergency | | | | 2017 | | Department [address] | | | | [address] | | | | | | [facility] | | | | | | [place], [place] | | | | | | [address] | | | | | | [phone] | | | +--------+ + + + [...] + + documented as of this encounter Medications at Time of Discharge + + + +---------+--------+ + | Medication | Sig | Dispensed | Refills | Start | End Date | | | | | | Date | | + + + +---------+--------+ + | omeprazole 40 mg | Take 40 mg by mouth | | 0 | | | | oral capsule,delayed | once daily in the | | | | | | release(DR/EC) | morning. | | | | | + + + +---------+--------+ + | rifAXIMin 550 mg | Take 550 mg by mouth | | 0 | | | | oral tablet | two times daily. | | | | | + + + +---------+--------+ + documented as of this encounter Progress Notes Archana Saunders MD - 04/28/2017 2:58 PM [facility] Staff Contacted by Dr. Waqas Quiroga, [facility] Franco Rodrigojaclyn re: this 61 yo with Hep C cirrhosis, DM wh o presented first to [place] ED with chest and abdominal pain. Per report, RUQ US was c/f acute cholecystitis so transferred to [facility]. There, noted to have elevated troponin 0 .26 (ULN 0.04). Cardiac cath performed with "severe multivessel disease" Had repeat RUQ US (no results available) as well as MRCP at [facility] without e/o acute ch olecystitis but ?stone in distal CBD. LFTs at [facility] AST 31, ALT 16, Alk phos 58, Tbili 1.9 -> AST 39, ALT 18, Alk phos 62, Tbili 1.6 No fevers, HR 77, BP 131/78, afib Per report, has blood cultures + for GNR Prior LFTs in 02/2016 notable for AST 124, ALT 131, Alk phos 83, Tbili 1.8 Impression GNR bacteremia, possible biliary source Unclear if presently has choledocholithiasis though given relatively normal LFTs Elevated bili could be related to impaired hepatic function in setting of cirrhosis Elevated troponin, abnormal cardiac cath Recommendations Asked Dr. Quiroga to have MRCP images pushed over from [facility] to review If there is e/o retained stone will plan for transfer over for consideration of ERCP documented in this e ncounter Plan of Treatment +--------+ + + + [...]
--- OUTSIDE RECORDS SUMMARY | ~2018-12-18 | XMS | Encounter Summary ---
Demographics + + + | Address | [address] | | | [place] [address] | + + + | Home Phone | | + + + | Preferred Language | Unknown | + + + | Marital Status | Single | + + + | Roman Catholic Affiliation | NRP | + + + | Race | or | + + + | Ethnic Group | Not or | + + + Author + + + | Author | [facility] | + + + | Organization | [facility] | + + + | Address | Unknown | + + + | Phone | Unavailable | + + + Support + + +---------+ + | Name | Relationship | Address | Phone | + + +---------+ + | Mary Medellin | ECON | Unknown | | + + +---------+ + Care Team Providers + +------+ + | Care Ribbing Machine Operator Name | Role | Phone | [...] | | | | [address] | [facility] | | | | | Mailcode: Center | [place], [place] | | | | | for Health and | [address] | | | | | Healing, [address] | [phone] | | | | | [place], [place] | | | | | | [address] | | | | | | [phone] | | | +--------+ + + + [...]
--- OUTSIDE RECORDS SUMMARY | ~2018-12-18 | XMS | Encounter Summary ---
Demographics + + + | Address | [address] | | | [place] [address] | + + + | Home Phone | | + + + | Preferred Language | Unknown | + + + | Marital Status | Single | + + + | Amish Affiliation | NRP | + + + | Race | or | + + + | Ethnic Group | Not or | + + + Author + + + | Author | [facility] | + + + | Organization | [facility] [employer] [facility] | + + + | Address | Unknown | + + + | Phone | Unavailable | + + + Support + + +---------+ + | Name | Relationship | Address | Phone | + + +---------+ + | Mary Medellin | ECON | Unknown | | + + +---------+ + Care Team Providers + +------+ + | Care Auditing Manager Name | Role | Phone | + +------+ + | Shakir Monzon MD | PCP | | + +------+ + Encounter Details +--------+ + + + + | Date | Type | Department | Care Team | Description | +--------+ + + + + | 10/05/ | Abstract | Digestive Health | Clinic, Hepatology | | | 2016 | | [place] [address] [address] | | | | | | [address] | | | | | | Mailcode: OC8D | | | | | | [place] [facility] | | | | | | and Healing, | | | | | | [address] | | | | | | [place], [place] | | | | | | [address] | | | | | | [phone] | | | +--------+ + + + [...]
--- OUTSIDE RECORDS SUMMARY | ~2018-12-18 | XMS | Encounter Summary ---
Demographics + + + | Address | [address] | | | [place] [address] | + + + | Home Phone | | + + + | Preferred Language | Unknown | + + + | Marital Status | Single | + + + | Sabianist Affiliation | NRP | + + + | Race | or | + + + | Ethnic Group | Not or | + + + Author + + + | Author | [facility] | + + + | Organization | [facility] | + + + | Address | Unknown | + + + | Phone | Unavailable | + + + Support + + +---------+ + | Name | Relationship | Address | Phone | + + +---------+ + | Mary Medellin | ECON | Unknown | | + + +---------+ + Care Team Providers + +------+ + | Care Flavoring Machine Operator Name | Role | Phone [...] | | | | [address] | [facility] | | | | | Mailcode: Center | [place], [place] | | | | | for Health and | [address] | | | | | Healing, [address] | [phone] | | | | | [place], [place] | | | | | | [address] | | | | | | [phone] | | | +--------+ + + + [...]
--- OUTSIDE RECORDS SUMMARY | ~2018-12-18 | XMS | Encounter Summary ---
Demographics + + + | Address | [address] | | | [place] [address] | + + + | Home Phone [...] Author + + + | Author | [facility] | + + + | Organization | [facility] [employer] [facility] | + + + | Address | Unknown | + + + | Phone | Unavailable | + + + Support + + +---------+ + | Name | Relationship | Address | Phone | + + +---------+ + | Mary Medellin | ECON | Unknown | | + + +---------+ + Care Team Providers + +------+ + | Care Cold Saw Operator Name | Role | Phone | + +------+ + | Shakir Monzon MD | PCP | | + +------+ + Encounter Details +--------+ + + + + | Date | Type | Department | Care Team | Description | +--------+ + + + + | 08/06/ | Inside | Endoscopic | Jessika Allen, | | | 2018 | Referral | Procedural Unit at | [address] | | | | Order | Marian[address] Drew [address] | | | | | [address] [facility] | [place], [place] | | | | | Primitivo Mailcode: [id number] | [address] | | | | | [address]ian [address] | [phone] | | | | | [address] [place], [place] | | | | | | [address] | | | | | | [phone] | | | +--------+ + + + [...] | | +--------+ + + + + +------+ +--------+ + + | Name | Type | Priori | Associated Diagnoses | Order Schedule | | | | ty | | | +------+ +--------+ + + | ERCP | Procedures | Routin | Rupture of | Expected: 08/06/2017 | | | | e | gallbladder | | +------+ +--------+ + + documented as of this encounter Visit Diagnoses + + | Diagnosis | + + | Rupture of gallbladder - Primary Perforation of gallbladder | + + documented in this encounter"
--- OUTSIDE RECORDS SUMMARY | ~2018-12-18 | XMS | Encounter Summary ---
Demographics + + + | Address | [address] | | | [place] [address] | + + + | Home Phone | | + + + | Preferred Language | Unknown | + + + | Marital Status | Single | + + + | Restorationism Affiliation | NRP | + + + | Race | or | + + + | Ethnic Group | Not or | + + + Author + + + | Author | [facility] | + + + | Organization | [facility] [employer] [facility] [facility] | + + + | Address | Unknown | + + + | Phone | Unavailable | + + + Support + + +---------+ + | Name | Relationship | Address | Phone | + + +---------+ + | Mary Medellin | ECON | Unknown | | + + +---------+ + Care Team Providers + +------+ + | Care Tariff Clerk Name | Role | Phone | + +------+ + | Shakir Monzon MD | PCP | | + +------+ + Reason for Visit + + + | Reason | Comments | + + + | Scheduling | | + + + Encounter Details +--------+ + + + + | Date | Type | Department | Care Team | Description | +--------+ + + + + | 01/07/ | Telephone | Digestive Health | [place], | Scheduling | | 2019 | | Center at [facility] [address] | [address] | | | | | [address] | [address] | | | | | Mailcode: Center | [place], [place] | | | | | for Health and | [address] | | | | | [facility] 2 | [phone] | | | | | [place], [place] | | | | | | [address] | | | | | | [phone] | | | +--------+ + + + [...]
--- OUTSIDE RECORDS SUMMARY | ~2018-12-18 | XMS | Encounter Summary ---
Demographics + + + | Address | [address] | | | [place] [address] | + + + | Home Phone | | + + + | Preferred Language | Unknown | + + + | Marital Status | Single | + + + | Cheondoism Affiliation | NRP | + + + | Race | or | + + + | Ethnic Group | Not or | + + + Author + + + | Author | [facility] | + + + | Organization | [facility] [employer] [facility] | + + + | Address | Unknown | + + + | Phone | Unavailable | + + + Support + + +---------+ + | Name | Relationship | Address | Phone | + + +---------+ + | Mary Medellin | ECON | Unknown | | + + +---------+ + Care Team Providers + +------+ + | Care Inter Com Installer Name | Role | Phone | [...] | | | | [address] | [facility] | | | | | Mailcode: Center | [place], [place] | | | | | for Health and | [address] | | | | | Healing, [address] | [phone] | | | | | [place], [place] | | | | | | [address] | | | | | | [phone] | | | +--------+ + + + [...]
--- OUTSIDE RECORDS SUMMARY | ~2018-12-18 | XMS | Encounter Summary ---
Demographics + + + | Address | [address] | | | [place] [address] | + + + | Home Phone | | + + + | Preferred Language | Unknown | + + + | Marital Status | Single | + + + | Methodist Affiliation | NRP | + + + | Race | or | + + + | Ethnic Group | Not or | + + + Author + + + | Author | [facility] | + + + | Organization | [facility] [employer] [facility] | + + + | Address | Unknown | + + + | Phone | Unavailable | + + + Support + + +---------+ + | Name | Relationship | Address | Phone | + + +---------+ + | Mary Medellin | ECON | Unknown | | + + +---------+ + Care Team Providers + +------+ + | Care Shock Absorber Installer Name | Role | Phone | [...] | +--------+ + + + + | 08/03/ | Abstract | Digestive Health | Bessy Solano, | Blood Test Results | | 2018 | | [place] [address] [address] | PA-C [address] | | | | | [address] | [address] | | | | | Mailcode: OC8D | [place], [place] | | | | | [facility] | [address] | | | | | and Healing, | [phone] | | | | | [address] | | | | | | [place], [place] | | | | | | [address] | | | | | | [phone] | | | +--------+ + + + [...]
--- OUTSIDE RECORDS SUMMARY | ~2018-12-18 | XMS | Encounter Summary ---
Demographics + + + | Address | [address] | | | [place] [address] | + + + | Home Phone [...] | [facility] [employer] [facility] | + + + | Organization | [facility] [employer] [facility] | + + + | Address | Unknown | + + + | Phone | Unavailable | + + + Support + + +---------+ + | Name | Relationship | Address | Phone | + + +---------+ + | Mary Medellin | ECON | Unknown | | + + +---------+ + Care Team Providers + +------+ + | Care Clinical Specialist Vascular Name | Role | Phone | + +------+ + | Shakir Monzon MD | PCP | | + +------+ + Encounter Details +--------+ + + + + | Date | Type | Department | Care Team | Description | +--------+ + + + + | 08/07/ | Procedure | Diagnostic Imaging | | | | 2018 | Pass | Services at [facility] | | | | | | [address] | | | | | | [place] Mailcode: | | | | | | [address] [facility] | | | | | | [place], [place] | | | | | | [address] | | | | | | [phone] | | | +--------+ + + + [...]
--- OUTSIDE RECORDS SUMMARY | ~2018-12-18 | XMS | Encounter Summary ---
Demographics + + + | Address | [address] | | | [place] [address] | + + + | Home Phone | | + + + | Preferred Language | Unknown | + + + | Marital Status | Single | + + + | Jain Affiliation | NRP | + + + | Race | or | + + + | Ethnic Group | Not or | + + + Author + + + | Author | [facility] | + + + | Organization | [facility] [employer] [facility] | + + + | Address | Unknown | + + + | Phone | Unavailable | + + + Support + + +---------+ + | Name | Relationship | Address | Phone | + + +---------+ + | Mary Medellin | ECON | Unknown | | + + +---------+ + Care Team Providers + +------+ + | Care Tail Worker Name | Role | Phone | [...] | | General Surgery at | [address] | | | | | [address] | [place], | | | | | [address] | [place] [address] | | | | | Mailcode: [id number] | [phone] | | | | | [address] | | | | | | [address] [place], [place] | | | | | | [address] | | | | | | [phone] | | | +--------+ + + + [...]
--- OUTSIDE RECORDS SUMMARY | ~2018-12-18 | XMS | Encounter Summary ---
Demographics + + + | Address | [address] | | | [place] [address] | + + + | Home Phone | | + + + | Preferred Language | Unknown | + + + | Marital Status | Single | + + + | Yarsanism Affiliation | NRP | + + + | Race | or | + + + | Ethnic Group | Not or | + + + Author + + + | Author | [facility] [facility] | + + + | Organization | [facility] [employer] | + [...] Team Providers + +------+ + | Care Operations Research Analyst Name | Role | Phone | + +------+ + | Shakir Monzno MD | PCP | | + +------+ + Reason for Visit + + + | Reason | Comments | + + + | Medical Records | | | Review | | + + + Encounter Details +--------+ + + + + | Date | Type | Department | Care Team | Description | +--------+ + + + + | 11/30/ | Documentati | Endoscopic | Lab, Gi Procedure | Medical Records | | 2018 | on | Procedural Unit at | | Review | | | | Marianna Rajendra [address] | | | | | | [address] | | | | | | [address] Mailcode: [id number] | | | | | | [place]os | | | | | | [address] [place], [place] | | | | | | [address] | | | | | | [phone] | | | +--------+ + + + [...]
--- OUTSIDE RECORDS SUMMARY | ~2018-12-18 | XMS | Encounter Summary ---
Demographics + + + | Address | [address] | | | [place] [address] | + + + | Home Phone | | + + + | Preferred Language | Unknown | + + + | Marital Status | Single | + + + | Quaker Affiliation | NRP | + + + | Race | or | + + + | Ethnic Group | Not or | + + + Author + + + | Author | [facility] | + + + | Organization | [facility] [employer] [facility] | + + + | Address | Unknown | + + + | Phone | Unavailable | + + + Support + + +---------+ + | Name | Relationship | Address | Phone | + + +---------+ + | Mary Medellin | ECON | Unknown | | + + +---------+ + Care Team Providers + +------+ + | Care Screener Perfumer Name | Role | Phone | + +------+ + | Shakir Monzon MD | PCP | | + +------+ + Reason for Visit + + + | Reason | Comments | + + + | Referral To Surgery | | | - General | | + + + Encounter Details +--------+ + + + + | Date | Type | Department | Care Team | Description | +--------+ + + + + | 05/17/ | Abstract | Digestive Health | Clinic, Surgery | Referral To Surgery | | 2017 | | Center at [facility] [address] | | - General | | | | [address] | | | | | | Mailcode: [place] | | | | | | [facility] and | | | | | | Healing, [address] | | | | | | [place], [place] | | | | | | [address] | | | | | | [phone] | | | +--------+ + + + [...]
--- OUTSIDE RECORDS SUMMARY | ~2018-12-18 | XMS | Encounter Summary ---
Demographics + + + | Address | [address] | | | [place] [address] | + + + | Home Phone | | + + + | Preferred Language | Unknown | + + + | Marital Status | Single | + + + | Synagogue Affiliation | NRP | + + + | Race | or | + + + | Ethnic Group | Not or | + + + Author + + + | Author | [facility] | + + + | Organization | [facility] [employer] [facility] | + + + | Address | Unknown | + + + | Phone | Unavailable | + + + Support + + +---------+ + | Name | Relationship | Address | Phone | + + +---------+ + | aMry Medellin | ECON | Unknown | | + + +---------+ + Care Team Providers + +------+ + | Care Hvac Journeyman Name | Role | Phone | + +------+ + | Shakir Monzon MD | PCP | | + +------+ + Reason for Visit + + + | Reason | Comments | + + + | Pre Transplant | Intake | | Workup | | + + + Encounter Details +--------+ + + + + | Date | Type | Department | Care Team | Description | +--------+ + + + + | 05/04/ | Telephone | Transplant | Kathy Newell RN | Pre Transplant | | 2017 | | Coordinators [address] | Workup (Intake) | | | | [address] | [address] | | | | | Rd [place], [place] | [place], [place] | | | | | [address] | [address] | | | | | [phone] | | | +--------+ + + + [...]
--- OUTSIDE RECORDS SUMMARY | ~2018-12-18 | XMS | Encounter Summary ---
Demographics + + + | Address | [address] | | | [place] [address] | + + + | Home Phone | | + + + | Preferred Language | Unknown | + + + | Marital Status | Single | + + + | Taoist Affiliation | NRP | + + + | Race | or | + + + | Ethnic Group | Not or | + + + Author + + + | Author | [facility] | + + + | Organization | [facility] [employer] [facility] | + + + | Address | Unknown | + + + | Phone | Unavailable | + + + Support + + +---------+ + | Name | Relationship | Address | Phone | + + +---------+ + | Mary Medellin | ECON | Unknown | | + + +---------+ + Care Team Providers + +------+ + | Care Infrastructure Software Engineer Name | Role | Phone | + [...] | +--------+ + + + + | 08/09/ | Abstract | Digestive Health | Bessy Solano, | Medical Records | | 2018 | | Center at [facility] [address] | PA-C [address] | Review | | | | [address] | [address] [facility] | | | | | Mailcode: OC8D | [place], [place] | | | | | [facility] | [address] | | | | | and Healing, | [phone] | | | | | Building [address] | | | | | | [place], [place] | | | | | | [address] | | | | | | [phone] | | | +--------+ + + + [...]
--- OUTSIDE RECORDS SUMMARY | ~2018-12-18 | XMS | Encounter Summary ---
Demographics + + + | Address | [address] | | | [place] [address] | + + + | Home Phone | | + + + | Preferred Language | Unknown | + + + | Marital Status | Single | + + + | Taoism Affiliation | NRP | + + + | Race | or | + + + | Ethnic Group | Not or | + + + Author + + + | Author | [facility] | + + + | Organization | [facility] [employer] [facility] | + + + | Address | Unknown | + + + | Phone | Unavailable | + + + Support + + +---------+ + | Name | Relationship | Address | Phone | + + +---------+ + | Mary Medellin | ECON | Unknown | | + + +---------+ + Care Team Providers + +------+ + | Care All Round Logger Name | Role | Phone | + [...] | | 2017 | | Center at [facility] [address] | | - General | | | | [address] | | | | | | Mailcode: [place] | | | | | | [facility] and | | | | | | Healing, [address] | | | | | | [place], [place] | | | | | | [address] | | | | | | [phone] | | | +--------+ + + + [...]
--- OUTSIDE RECORDS SUMMARY | ~2018-12-18 | XMS | Encounter Summary ---
Demographics + + + | Address | [address] | | | [place] [address] | + + + | Home Phone | | + + + | Preferred Language | Unknown | + + + | Marital Status | Single | + + + | Faith Affiliation | NRP | + + + | Race | or | + + + | Ethnic Group | Not or | + + + Author + + + | Author | [facility] [employer] [facility] | + + + | Organization | [facility] [employer] [facility] [...] Team Providers + +------+ + | Care Nut Roaster Name | Role | Phone | + +------+ + | Shakir Monzon MD | PCP | | + +------+ + Reason for Visit + + + | Reason | Comments | + + + | Follow-up encounter | | + + + Encounter Details +--------+ + + + + | Date | Type | Department | Care Team | Description | +--------+ + + + + | 03/04/ | Telephone | Digestive Health | Clinton Morillo, | Follow-up encounter | | 2019 | | Center at [facility] [address] | MD [address] | | | | | [address] | [address] | | | | | Mailcode: Center | [place], [place] | | | | | [facility] and | [address] | | | | | [facility] 2 | [phone] | | | | | [place], [place] | | | | | | [address] | | | | | | [phone] | | | +--------+ + + + [...]
--- OUTSIDE RECORDS SUMMARY | ~2018-12-18 | XMS | Encounter Summary ---
Demographics + + + | Address | [address] | | | [place] [address] | + + + | Home Phone | | + + + | Preferred Language | Unknown | + + + | Marital Status | Single | + + + | Protestant Affiliation | NRP | + + + | Race | or | + + + | Ethnic Group | Not or | + + + Author + + + | Author | [facility] | + + + | Organization | [facility] [employer] [facility] | + + + | Address | Unknown | + + + | Phone | Unavailable | + + + Support + + +---------+ + | Name | Relationship | Address | Phone | + + +---------+ + | Mary Medellin | ECON | Unknown | | + + +---------+ + Care Team Providers + +------+ + | Care Library Media Specialist Name | Role | Phone | + +------+ + | Shakir Monzon MD | PCP | | + +------+ + Encounter Details +--------+ + + + + | Date | Type | Department | Care Team | Description | +--------+ + + + + | 11/29/ | Inspector Set Up And Lay Out | Digestive Health | Clinton Morillo, | Gallbladder | | 2018 | | Center at [facility] [address] | [address] | perforation (Primary | | | | [address] | [address] | Dx) | | | | Mailcode: Center | [place], [place] | | | | | for [facility] and | [address] | | | | | [facility] 2 | [phone] | | | | | [place], [place] | | | | | | [address] | | | | | | [phone] | | | +--------+ + + + [...]
--- OUTSIDE RECORDS SUMMARY | ~2018-12-18 | XMS | Encounter Summary ---
Demographics + + + | Address | [address] | | | [place] [address] | + + + | Home Phone [...] Author + + + | Author | [facility] [employer] [facility] | + + + | Organization | [facility] [employer] [facility] | + + + | Address | Unknown | + + + | Phone | Unavailable | + + + Support + + +---------+ + | Name | Relationship | Address | Phone | + + +---------+ + | Mary Medellin | ECON | Unknown | | + + +---------+ + Care Team Providers + +------+ + | Care Master Dyer Name | Role | Phone | + +------+ + | Shakir Monzon MD | PCP | | + +------+ + Reason for Visit + + + | Reason | Comments | + + + | Medication | HCV Treatment | | management | | + + + Encounter Details +--------+ + + + + | Date | Type | Department | Care Team | Description | +--------+ + + + + | 10/23/ | Telephone | Digestive Health | Shalini Phipps, | Medication | | 2017 | | Center at [facility] [address] | PharmD [address] | management (HCV | | | | [address] | [address] | Treatment) | | | | Mailcode: OC8D | [place], [place] | | | | | [facility] | [address] | | | | | and Healing, | | | | | | [address] | | | | | | [place], [place] | | | | | | [address] | | | | | | [phone] | | | +--------+ + + + [...]
--- OUTSIDE RECORDS SUMMARY | ~2018-12-18 | XMS | Encounter Summary ---
Demographics + + + | Address | [address] | | | [place] [address] | + + + | Home Phone | | + + + | Preferred Language | Unknown | + + + | Marital Status | Single | + + + | Anglican Affiliation | NRP | + + + | Race | or | + + + | Ethnic Group | Not or | + + + Author + + + | Author | [facility] [employer] [facility] | + + + | Organization | [facility] [employer] [facility] | + + + | Address | Unknown | + + + | Phone | Unavailable | + + + Support + + +---------+ + | Name | Relationship | Address | Phone | + + +---------+ + | Mary Medellin | ECON | Unknown | | + + +---------+ + Care Team Providers + +------+ + | Care Vp Transportation Name | Role | Phone | + +------+ + | Shakir Monzon MD | PCP | | + +------+ + Encounter Details +--------+ + + + + | Date | Type | Department | Care Team | Description | +--------+ + + + + | 05/10/ | Telephone | Digestive Health | Bessy Solano, | | | 2017 | | [place] [address] [address] | PA-C [address] | | | | | [address] | [address] | | | | | Mailcode: OC8D | [place], [place] | | | | | [place] for [facility] | [address] | | | | | and [place], | [phone] | | | | | Building [address] | | | | | | [place], [place] | | | | | | [address] | | | | | | [phone] | | | +--------+ + + + [...] | + + + + + | [facility] | [address] | [place] [address] | | | SERVICES, CORE | PARVEEN [...] | + + + + + | [facility] | [address] [facility] | [place] [address] | | | SERVICES, CORE | [address] [...] | | | LABORATORY | | | LAO | | | SERVICES, | | | [...] LINDA LAGUERRE | [address] | [place] [address] | | | SERVICES, CORE | [address] | | | + + + + + documented in this encounter Visit Diagnoses + + | Diagnosis | + + | Cirrhosis of liver without ascites, unspecified hepatic cirrhosis type (HCC) - Primary | + + documented in this encounter"
--- OUTSIDE RECORDS SUMMARY | ~2018-12-18 | XMS | Encounter Summary ---
Demographics + + + | Address | [address] | | | [place] [address] | + + + | Home Phone [...] [facility] | + + + | Organization | [facility] [employer] [facility] | + + + | Address | Unknown | + + + | Phone | Unavailable | + + + Support + + +---------+ + | Name | Relationship | Address | Phone | + + +---------+ + | Mary Medellin | ECON | Unknown | | + + +---------+ + Care Team Providers + +------+ + | Care Wound Care Specialist Name | Role | Phone | + +------+ + | Shakir Monzon MD | PCP | | + +------+ + Reason for Visit + + + | Reason | Comments | + + + | Follow-up visit | | + + + Office Visit - E/M Services (Routine) +--------+--------+ [...] | | cirrhosis, | MD Elle | [facility] [address] | | | | | unspecified | [address] | [address] | | | | | hepatic | [address] | Mailcode: | | | | | cirrhosis | [address] | [address] Center | | | | | type, | [place], [place] | for Health | | | | | unspecified | [address] | and Healing, | | | | | whether | Phone: | Building [address] | | | | | ascites | [phone] | [place], [place] | | | | | present | Fax: | [phone] | | | | | (HCC) | [phone] | Phone: | | | | | Procedures | | [phone] | | | | | CONSULT TO | | Fax: | | | | | HEPATOLOGY | | [phone] | +--------+--------+ + + + + Encounter Details +--------+---------+ + + + | Date | Type | Department | Care Team | Description | +--------+---------+ + + + | 11/03/ | Office | Digestive Health | Marc Solano, | Cirrhosis of liver | | 2018 | Visit | Center at [facility] [address] | PA-C [address] | without ascites, | | | | [address] | [address] | unspecified hepatic | | | | Mailcode: OC8D | [place], [place] | cirrhosis type (HCC) | | | | [place] for [facility] | [address] | (Primary Dx); | | | | and Healing, | [phone] | Gallbladder | | | | Building [address] | | perforation | | | | [place], [place] | | | | | | [address] | | | | | | [phone] | | | +--------+---------+ + + + [...] + + + | Blood Pressure | 122/68 | 11/03/2017 2:38 PM | | | | | PDT | | + + + + + | Pulse | 59 | 11/03/2017 2:38 PM | | | | | PDT | | + + + + + | Temperature | - | - | | + + + + + | Respiratory Rate | 18 | 11/03/2017 2:38 PM | | | | | PDT | | + + + + + | Oxygen Saturation | 99% | 11/03/2017 2:38 PM | | | | | PDT | | + + + + + | Inhaled Oxygen | - | - | | | Concentration | | | | + + + + + | Weight | 95.7 kg (211 lb) | 11/03/2017 2:38 PM | | | | | PDT | | + + + + + | Height | - | - | | + + + + + | Body Mass Index | 29.43 | 11/01/2017 9:02 AM | | | | | PDT | | + + + + + documented in this encounter Functional Status + + [...] as of this encounter Progress Notes Paul Rice MD - 11/03/2017 2:20 PM PDTHEPATOLOGY ATTENDING Note reviewed. Paul Rice MD, MS, JACK brownell operator Director of Clinical Hepatology [facility] Division of Gastroenterology/Hepatology Marc Villar PA-Craig - 0 11/03/2017 2:20 PM PDT Hepatology Clinic Note 11/03/2017 PCP: Shakir Monzon MD Referring provider: HISTORY OF PRESENT ILLNESS Bret Espinal Jr. is a 62 y.o. male with history of HCV+Etoh Cirrhosis, that was unfortunat ca further complicated by a perforated gallbladder/abscess requiring cholecystostomy tube d uring this he was found to have significant CAD He presents accompanied by his significant other Presently he has recovered from his hospitalization in July this year and is currently bein g evaluated by [facility]// Ilia's team for cholecystectomy He has recently seen cardiology and here to follow up from his liver standpoint He denies fluid accumulation in feet/ankles, fluid accumulation in abdomen, blood in bowel movements or black tarry bm's His prior HE is well controlled on lactulose twice daily with rifaximin He is feeling fairly well and would like to proceed with gallbladder removal as biliary tiago in is an impediment. He is aware of risks undergoing surgery and wants to proceed. Noted that comment of upper CBD stricture that will be assessed/possibly stented prior to g allbladder removal Diagnoses: 1. 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 Likely acquired by remote ANUM 1.2. Decompensations: HE on lactulose and Rifaximin 1.3. HCC surveillance: CT abdomen, MRCP 09/24/17 1.4. Variceal screening: EGD 07/2016 non-bleeding EV with EBL, EGD 11/201617 Grade 1 EV 1.5. 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 Perforated gallbladder/upper common bile duct stricture- placement of cholecystostomy tu be/decompressive drainage 07/2017 2. Type 2 DM- insulin dependent 3. Diffuse coronary artery disease on cath 04/2017- not amenable to intervention, managed me dically 3.1 Recent TTE 10/27/17: LVEF 60-65% 4. Colonoscopy locally ~2015 per patient 5. Psychosocial: Lives in [place], and young daughter, grown children, still partner work in construction, +tobacco use and rare MJ use. 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 ACYCLOVIR 5 % TOPICAL OINTMENT Apply to affected area five times daily. PRN for outbreaks ACYCLOVIR 800 MG TABLET Take 800 mg by mouth five times daily. PRN for outbreaks CHOLECALCIFEROL (VITAMIN D3) 5,000 UNIT CAPSULE Take 5,000 Units by mouth once daily. INSULIN ASPART U-100 100 UNIT/ML SUBCUTANEOUS PEN Inject three times daily per sliding sca le before meals. If CBGs >150: no insulin; 150-200: 5 units; >201 10 units ISOSORBIDE MONONITRATE ER 30 MG TABLET,EXTENDED RELEASE 24 HR Take 1 tablet by mouth once d aily. Indications: Chronic Stable Angina Pectoris LACTULOSE 10 GRAM/15 ML ORAL SOLUTION Take 30 mL by mouth three times daily. LANTUS SOLOSTAR U-100 INSULIN 100 UNIT/ML (3 ML) SUBCUTANEOUS PEN Inject 60-80 Units under the skin (SUBC) every twelve hours. LOSARTAN 25 MG TABLET Take 25 mg by mouth once daily. METOPROLOL TARTRATE 25 MG TABLET Take 1 tablet by mouth two times daily. NITROGLYCERIN 0.[address] 1 tablet under tongue every five minutes as ne eded for chest pain. Place under tongue and allow to dissolve. Administer every 5 minutes, max of 3 doses in 15 minutes. OMEPRAZOLE 40 MG CAPSULE,DELAYED RELEASE Take 40 mg by mouth once daily in the morning. OXYCODONE 5 MG TABLET Take 1 to 2 tablets by mouth every four hours as needed for moderate pain. RIFAXIMIN 550 MG TABLET Take 550 mg by mouth two times daily. ROSUVASTATIN 10 MG TABLET Take 10 mg by mouth once daily. ALLERGIES: Allergies Allergen Reactions Hydromorphone Anxiety, Confusion and Delirium PHYSICAL EXAM VS: Filed Vitals: 11/03/2017 2:38 PM Weight: 95.7 kg (211 lb) BP: 122/68 Pulse: 59 Resp: 18 SpO2: 99% BMI: 29.43 kg/(m^2) GEN: Pleasant male in NAD, comfortable appearing. HEENT: anicteric, NC/AT, PERRL ABD: Soft, nontender, nondistended without fluid wave. +drain site clear, pale yellow fluid in bag EXT: no clubbing or peripheral edema. SKIN: No jaundice, +vitiligo on hands NEURO: No asterixis. LABS Lab Results Component Value Date NA 140 10/13/2017 K 3.2 10/13/2017 CL 110 10/13/2017 BICARB 22 10/13/2017 BUN 8 10/13/2017 CR 0.88 10/13/2017 GLU 248 10/13/2017 CA 8.7 10/13/2017 Lab Results Component Value Date WBC 6.70 10/13/2017 RBC 4.40 (L) 10/13/2017 HB 14.0 10/13/2017 HCT 40.5 (L) 10/13/2017 MCV 92.0 10/13/2017 MCHC 34.6 10/13/2017 RDW 46.9 (H) 10/13/2017 PLT 78 (L) 10/13/2017 MPV 11.7 10/13/2017 NRBCPERC 0.0 10/13/2017 NRBCABS 0.00 10/13/2017 Lab Results Component Value Date TBILI 1.4 (H) 10/13/2017 AP 105 10/13/2017 TP 7.0 10/13/2017 ALB 2.8 (L) 10/13/2017 AST 34 10/13/2017 ALT 33 10/13/2017 Lab Results Component Value Date AFPTUMORMKR 7.7 10/13/2017 AFPTUMORMKR 15.5 10/14/2016 No results found for: FERRITIN Lab Results Component Value Date HEPCPCR detected 12/01/2016 No results found for: HBSAB Lab Results Component Value Date HBSAG Not Detected 10/14/2016 No results found for: HEPBCORE No results found for: HEPBEAG No results found for: HEPBQTPCR 04/2017 Coronary catherization CONCLUSIONS: 1.Diffuse moderate to [...] about 50% in mid RCA and PL-1 IMAGING / ENDOSCOPY MRCP 09/24/17 LIVER: Nodular cirrhotic liver with sequelae of portal hypertension, including a large para renal shunt. BILIARY: The gallbladder is decompressed around a cholecystostomy tube, with residual galls tones. The previously noted fluid collections adjacent to the gallbladder have resolved. In the region of the previously noted hilar abscess, there is a persistent inflammatory mass me asuring approximately 3.2 x 3.4 cm (1003/302), as well as two residual hilar fluid collectio ns measuring approximately 2.1 x 1.3 cm (701/25) and 1.3 x 0.7 cm (701/23). These cause pers istent partial encasement of the upper common bile duct and resulting biliary stricture, as previous noted. There is moderate intrahepatic ductal dilatation upstream from this area, wh ich is unchanged compared to 08/05/2017 MRCP. No abnormal ductal enhancement. No evidence of choledocholithiasis. There is variant biliary anatomy with low insertion of the common bile duct. No evidence of Mirizzi syndrome. PANCREAS: Unremarkable. SPLEEN: Moderately enlarged. Splenorenal shunt. ADRENALS: Unremarkable. KIDNEYS: Unremarkable. GI TRACT: Visualized portions are unremarkable. PERITONEUM: No free air or fluid. LYMPH NODES: No lymphadenopathy. VESSELS: Unremarkable. BONES AND SOFT TISSUES: Unremarkable. IMPRESSION: 1. Persistent inflammatory mass and two small residual hilar abscesses at the site of the p reviously seen large hilar abscess, with persistent upper common bile duct stricture and ups tream intrahepatic biliary duct dilatation. 2. Decompressed gallbladder and resolved fluid collections along the fundus and body status post cholecystostomy. EGD 11/2016 Impression: - Grade I esophageal varices. - Z-line irregular, 36 cm from the incisors. Biopsied. - Erythematous mucosa in the stomach. - Normal examined duodenum. Note: All available outside records have been reviewed in the course of this visit, and chaz ecially pertinent ones noted above. ASSESSMENT Mr. Bret Espinal Jr. is a 62 y.o. male who presents for evaluation and management of HCV+E yara Cirrhosis. This has been complicated by non-bleeding varices and hepatic encephalopathy. He was previously successfully treated for his HCV. He has remained sober from alcohol. Presently liver function is relatively preserved, MELD recently of 9, while there are inher ent risks for liver decompensation with procedure but presently there are no absolute contra indications for proceeding with gallbladder removal to remove drain following evaluation of upper common bile duct stricture and would like recommend brushings/CA 19-9 at same time. Mr. Espinal is not a liver transplant candidate due to his cardiac disease, and again we al so discussed today that he would not be interested in liver transplantation in accordance wi th his beliefs. He should continue his current regimen for Hepatic Encephalopathy including lactulose and r ifaximin. He would be due for updated variceal screening/possible EBL if required which can be done l ocally via GI as previously scheduled. Due to underlying portal hypertension, noted pararenal shunt. A BRTO could be considered to decompress abdominal varices but may worsen esophageal varices. TIPS would not be recommend ed due to his cardiac status and underlying hepatic encephalopathy. RECOMMENDATIONS: 1. CA 19-9, AFP with next blood check 2. EGD locally for updated variceal screening 3. No absolute contraindications for surgery from hepatic standpoint 4. Continue lactulose+Rifaximin 550mg BID 5. Ongoing avoidance alcohol 6. Return to clinic in 3 months or sooner PRN. MARC SOLANO PA-C [facility] 6TH FLOOR [address] Mailcode: [address] [place] [address] documented in this encounter Plan of Treatment +--------+ + [...] (HCC) - Primary | + + | Gallbladder perforation Perforation of gallbladder | + + documented in this encounter"
--- OUTSIDE RECORDS SUMMARY | ~2018-12-18 | XMS | Encounter Summary ---
Demographics + + + | Address | [address] | | | [place] [address] | + + + | Home Phone [...] + + | Author | [facility] [employer] [facility] | + + + | Organization | [facility] [employer] [facility] [...] Team Providers + +------+ + | Care Fire Suppression Captain Name | Role | Phone | + +------+ + | Shakir Monzon MD | PCP | | + +------+ + Encounter Details +--------+ + + + + | Date | Type | Department | Care Team | Description | +--------+ + + + + | 04/26/ | Document-Sc | Health Information | Unknown . | | | 2018 | anned | Services [address] | | | | | | [address] | | | | | | Mailcode: [id number] | | | | | | [facility] | | | | | | [place], [place] | | | | | | [address] | | | | | | [phone] | | | +--------+ + + + [...] | + +--------+ + + + | RADIOLOGY | | 04/26/2017 | | Results for this | | | | 12:00 AM | | procedure are in the | | | | PDT | | results section. | + +--------+ + + + documented in this encounter Results RADIOLOGY (04/26/2017 12:00 AM PDT) + + + | Narrative | Performed At | + + + | | | + + + documented in this encounter Visit Diagnoses Not on filedocumented in this encounter"
--- OUTSIDE RECORDS SUMMARY | ~2018-12-18 | XMS | Encounter Summary ---
Demographics + + + | Address | [address] | | | [place] [address] | + + + | Home Phone [...] + + | Author | [facility] | + + + | Organization | [facility] [employer] [facility] | + + + | Address | Unknown | + + + | Phone | Unavailable | + + + Support + + +---------+ + | Name | Relationship | Address | Phone | + + +---------+ + | Mary Medellin | ECON | Unknown | | + + +---------+ + Care Team Providers + +------+ + | Care Story Teller Name | Role | Phone | + +------+ + | Shakir Monzon MD | PCP | | + +------+ + Reason for Visit + + + | Reason | Comments | + + + | Lab Results | Labs 01/28/17 | + + + Encounter Details +--------+ + + + + | Date | Type | Department | Care Team | Description | +--------+ + + + + | 02/02/ | Documentati | [facility] | Bessy Solano, | Lab Results (Labs | | 2017 | on | [facility] [address] | [place] [address] | 01/28/17) | | | | [address] | [facility] | | | | | Mailcode: OC8D | [place], [place] | | | | | [facility] | [address] | | | | | and Maxine, | [phone] | | | | | [address] | | | | | | [place], [place] | | | | | | [address] | | | | | | [phone] | | | +--------+ + + + [...] + + | INR | Routin | 01/28/2017 | | Results for this | | | e | | | procedure are in the | | | | | | results section. | + +--------+ + + + | COMPLETE METABOLIC | Routin | 01/28/2017 | | Results for this | | SET | e | | | procedure are in the | | (NA,K,CL,CO2,BUN,CRE | | | | results section. | | AT,GLUC,CA,AST,ALT,B | | | | | | NIC TOTAL,ALK | | | | | | PHOS,ALB,PROT TOTAL) | | | | | + +--------+ + + + | CBC ONLY | Routin | 01/28/2017 | | Results for this | | | e | | | procedure are in the | | | | | | results section. | + +--------+ + + + documented in this encounter Results CBC ONLY (01/28/2017) + +--------+ + + + | Component | Value | Ref Range | Performed | Pathologist | | | | | At | Signature | + +--------+ + + + | WHITE CELL | 6.8 | K/cu mm | [facility] | | | COUNT | | | | | + +--------+ + + + | RED CELL | 4.47 | M/cu mm | [facility] | | | COUNT | | | | | + +--------+ + + + | HEMOGLOBIN | 15.6 | 13.5 - 17.5 | [facility] | | | | | g/dL | | | + +--------+ + + + | HEMATOCRIT | 44.7 | % | [facility] | | + +--------+ + + + | PLATELET | 74 (L) | K/cu mm | [facility] | | | COUNT | | | | | + +--------+ + + + + + | Specimen | + + | Blood - Blood | | (substance) | + + + +---------+ + + | Performing | Address | City/State/Zipcode | Phone Number | | Organization | | | | + +---------+ + + | [facility] | | | [phone] | + +---------+ + + INR (01/28/2017) + +-------+ + + + | Component | Value | Ref Range | Performed | Pathologist | | | | | At | Signature | + +-------+ + + + | INR | 1.2 | INR | [facility] | | + +-------+ + + + + + | Specimen | + + | Blood - Blood | | (substance) | + + + +---------+ + + | Performing | Address | City/State/Zipcode | Phone Number | | Organization | | | | + +---------+ + + | [facility] | | | [phone] | + +---------+ + + COMPLETE METABOLIC SET (NA,K,CL,CO2,BUN,CREAT,GLUC,CA,AST,ALT,BILI TOTAL,ALK PHOS,ALB,PROT TOTAL) (01/28/2017) + +---------+ + + + | Component | Value | Ref Range | Performed | Pathologist | | | | | At | Signature | + +---------+ + + + | GLUCOSE, | 243 (H) | 65 - 110 mg/dL | [facility] | | | PLASMA | | | | | | (LAB) | | | | | + +---------+ + + + | BUN, PLASMA | 14 | mg/dL | [facility] | | | (LAB) | | | | | + +---------+ + + + | CREATININE | 0.92 | mg/dL | [facility] | | | PLASMA | | | | | | (LAB) | | | | | + +---------+ + + + | TOTAL | 6.6 | g/dL | [facility] | | | PROTEIN, | | | | | | PLASMA | | | | | | (LAB) | | | | | + +---------+ + + + | ALBUMIN, | 2.9 (L) | g/dL | [facility] | | | PLASMA | | | | | | (LAB) | | | | | + +---------+ + + + | CALCIUM, | 8.7 | mg/dL | [facility] | | | PLASMA | | | | | | (LAB) | | | | | + +---------+ + + + | BILIRUBIN | 0.8 | Transcutaneous | [facility] | | | TOTAL | | Bilirubinometer | | | + +---------+ + + + | ALK PHOS | 55 | U/L | [facility] | | + +---------+ + + + | AST(SGOT) | 21 | U/L | [facility] | | + +---------+ + + + | SODIUM, | 142 | mmol/L | [facility] | | | PLASMA | | | | | | (LAB) | | | | | + +---------+ + + + | POTASSIUM, | 4.0 | mmol/L | [facility] | | | PLASMA | | | | | | (LAB) | | | | | + +---------+ + + + | CHLORIDE, | 108 (H) | mmol/L | [facility] | | | PLASMA | | | | | | (LAB) | | | | | + +---------+ + + + | TOTAL CO2, | 20 (L) | mmol/L | [facility] | | | PLASMA | | | | | | (LAB) | | | | | + +---------+ + + + | ALT (SGPT) | 22 | U/L | [facility] | | + +---------+ + + + + + | Specimen | + + | Blood - Blood | | (substance) | + + + +---------+ + + | Performing | Address | City/State/Zipcode | Phone Number | | Organization | | | | + +---------+ + + | [facility] | | | [phone] | + +---------+ + + documented in this encounter Visit Diagnoses Not on filedocumented in this encounter"
--- OUTSIDE RECORDS SUMMARY | ~2018-12-18 | XMS | Encounter Summary ---
Demographics + + + | Address | [address] | | | [place] [address] | + + + | Home Phone [...] Author | [facility] [employer] [facility] | + + + | Organization | [facility] [employer] [facility] | + + + | Address | Unknown | + + + | Phone | Unavailable | + + + Support + + +---------+ + | Name | Relationship | Address | Phone | + + +---------+ + | Mary Medellin | ECON | Unknown | | + + +---------+ + Care Team Providers + +------+ + | Care Telephone Lines Repairer Name | Role | Phone | + [...] 2018 | | General Surgery at | [facility] | | | | | [facility] [place], [place] | | | | | [address] | [address] | | | | | Mailcode: [id number] | | | | | | Nikkie Mazariegos | | | | | | [address] [place], [place] | | | | | | [address] | | | | | | [phone] | | | +--------+ + + + [...] + | Cholangitis - Primary | + + documented in this encounter"
--- OUTSIDE RECORDS SUMMARY | ~2018-12-18 | XMS | Encounter Summary ---
Demographics + + + | Address | [address] | | | [place] [address] | + + + | Home Phone [...] Author + + + | Author | [facility] [employer] [facility] | + + + | Organization | [facility] [employer] [facility] | + + + | Address | Unknown | + + + | Phone | Unavailable | + + + Support + + +---------+ + | Name | Relationship | Address | Phone | + + +---------+ + | Mary Medellin | ECON | Unknown | | + + +---------+ + Care Team Providers + +------+ + | Care Narcotics Detective Name | Role | Phone | + [...] | +--------+ + + + + | 01/14/ | Telephone | [facility] | Clinton Morillo, | Follow-up encounter | | 2018 | | Center at [facility] [address] | MD [address] | | | | | [address] | [address] | | | | | Mailcode: Center | [place], [place] | | | | | [facility] and | [address] | | | | | [facility] [address] | [phone] | | | | | [place], [place] | | | | | | [address] | | | | | | [phone] | | | +--------+ + + + [...] Procedure | Surgery | | | | 2021 | Pass | | | | +--------+ + + + + documented as of this encounter Visit Diagnoses Not on filedocumented in this encounter"
--- OUTSIDE RECORDS SUMMARY | ~2018-12-18 | XMS | Encounter Summary ---
Demographics + + + | Address | [address] | | | [place] [address] | + + + | Home Phone | | + + + | Preferred Language | Unknown | + + + | Marital Status | Single | + + + | Samaritan Affiliation | Unknown | + + + | Race | Unknown | + + + | Ethnic Group | Unknown | + + + Author + + + | Author | [facility] | | | and [place] | + + + | Organization | [facility] | | [...] Team Providers + +------+ + | Care Stained Glass Artist Name | Role | Phone | [...] + + | 10/07/ | Documentati | [facility] | Kady Cortez | Nu (Conor | | 2019 | on | CARDIOLOGY BRANDYN Angeles, Trucking Contractor | [facility] ) | | | | [address] | | | | | | [place] | | | | | | [address] | | | | | | [phone] | | | +--------+ + + + [...] + + | 12/29/ | Office | Cardiology | Lakisha Kahn DO | | | 2019 | Visit | | [address] | | | | | | [place] | | | | | | [id number] | | | | | | | | +--------+---------+ + + + documented as of this encounter Visit Diagnoses Not on filedocumented in this encounter"
--- OUTSIDE RECORDS SUMMARY | ~2018-12-18 | XMS | Encounter Summary ---
Demographics + + + | Address | [address] | | | [place] [address] | + + + | Home Phone | | + + + | Preferred Language | Unknown | + + + | Marital Status | Single | + + + | Mormonism Affiliation | NRP | + + + | Race | or | + + + | Ethnic Group | Not or | + + + Author + + + | Author | [facility] | + + + | Organization | [facility] [employer] [facility] | + + + | Address | Unknown | + + + | Phone | Unavailable | + + + Support + + +---------+ + | Name | Relationship | Address | Phone | + + +---------+ + | Mary Medellin | ECON | Unknown | | + + +---------+ + Care Team Providers + +------+ + | Care Painter Ski Edge Name | Role | Phone | + +------+ + | Shakir Monzon MD | PCP | | + +------+ + Reason for Referral Consultation (Routine) + +--------+ + + + + | Status | Reason | Specialty | Diagnoses / | Referred By | Referred To | | | | | Procedures | Contact | Contact | + +--------+ + + + + | New Request | | | Diagnoses | Ilia | | | | | | Coronary | MD Clinton | | | | | | artery | [address] | | | | | | disease, | [address] | | | | | | angina | Rd | | | | | | presence | [place], [place] | | | | | | unspecified, | [address] | | | | | | unspecified | Phone: | | | | | | vessel or | [phone] | | | | | | lesion type, | Fax: | | | | | | unspecified | [phone] | | | | | | whether | | | | | | | [place] or | | | | | | | transplanted | | | | | | | heart | | | | | | | Procedures | | | | | | | CONSULT TO | | | | | | | CARDIOLOGY | | | + +--------+ + + + + Encounter Details +--------+ + + + + | Date | Type | Department | Care Team | Description | +--------+ + + + + | 03/04/ | Emergency Room Rn | Dig[facility]ive Health | Clinton Morillo, | Coronary artery | | 2019 | | Center at [facility] [address] | [address] | disease, angina | | | | [address] | [address] | presence | | | | Mailcode: Center | [place], [place] | unspecified, | | | | for Health and | [address] | unspecified vessel | | | | Healing, [address] | [phone] | or lesion type, | | | | [place], [place] | | unspecified whether | | | | [address] | | [place] or | | | | [phone] | | transplanted heart | | | | | | (Primary Dx) | +--------+ + + + + Social [...] or lesion | | type, unspecified whether [place] or transplanted heart - Primary | + + documented in this encounter"
--- OUTSIDE RECORDS SUMMARY | ~2018-12-18 | XMS | Encounter Summary ---
Demographics + + + | Address | [address] | | | [place] [address] | + + + | Home Phone | | + + + | Preferred Language | Unknown | + + + | Marital Status | Single | + + + | Mu-Ism Affiliation | NRP | + + + | Race | or | + + + | Ethnic Group | Not or | + + + Author + + + | Author | [facility]placed By [facility] | + + + | Organization | Replaced By [facility] [employer] [facility] | + + + | Address | Unknown | + + + | Phone | Unavailable | + + + Support + + +---------+ + | Name | Relationship | Address | Phone | + + +---------+ + | Mary Medellin | ECON | Unknown | | + + +---------+ + Care Team Providers + +------+ + | Care Webmaster Name | Role | Phone | + +------+ + | Shakir Monzon MD | PCP | | + +------+ + Encounter Details +--------+ + + + + | Date | Type | Department | Care Team | Description | +--------+ + + + + | 11/01/ | Abstract | Cardiology General | Sharon Sanderson | | | 2018 | | at [facility] [address] | [address] | | | | | [address] Mailcode: | [address] [place], | | | | | [facility] | [place] [address] | | | | | Health and Healing, | [phone] | | | | | [facility] | | | | | | Floor [place], [place] | | | | | | [address] | | | | | | [phone] | | | +--------+ + + + [...]
--- OUTSIDE RECORDS SUMMARY | ~2018-12-18 | XMS | Encounter Summary ---
Demographics + + + | Address | [address] | | | [place] [address] | + + + | Home Phone | | + + + | Preferred Language | Unknown | + + + | Marital Status | Single | + + + | Holiness Affiliation | NRP | + + + | Race | or | + + + | Ethnic Group | Not or | + + + Author + + + | Author | [facility] | + + + | Organization | [facility] | + + + | Address | Unknown | + + + | Phone | Unavailable | + + + Support + + +---------+ + | Name | Relationship | Address | Phone | + + +---------+ + | Mary Medellin | ECON | Unknown | | + + +---------+ + Care Team Providers + +------+ + | Care Sanitary Chemist Name | Role | Phone | + +------+ + | Shakir Monzon MD | PCP | | + +------+ + Encounter Details +--------+--------+ + + + | Date | Type | Department | Care Team | Description | +--------+--------+ + + + | 11/08/ | Intake | Transfer Center | | N/A | | 2018 | | [address] | | | | | | [place] | | | | | | [place] [address] | | | +--------+--------+ + + + [...]
--- OUTSIDE RECORDS SUMMARY | ~2018-12-18 | XMS | Encounter Summary ---
Demographics + + + | Address | [address] | | | [place] [address] | + + + | Home Phone | | + + + | Preferred Language | Unknown | + + + | Marital Status | Single | + + + | Pentecostalism Affiliation | NRP | + + + | Race | or | + + + | Ethnic Group | Not or | + + + Author + + + | Author | [facility] | + + + | Organization | [facility] [employer] [facility] | + + + | Address | Unknown | + + + | Phone | Unavailable | + + + Support + + +---------+ + | Name | Relationship | Address | Phone | + + +---------+ + | Mary Medellin | ECON | Unknown | | + + +---------+ + Care Team Providers + +------+ + | Care Moshgiach Name | Role | Phone | + +------+ + | Shakir Monzon MD | PCP | | + +------+ + Reason for Visit + + + | Reason | Comments | + + + | Car Gen Record | GEN Checklist | | Review | | + + + Encounter Details +--------+ + + + + | Date | Type | Department | Care Team | Description | +--------+ + + + + | 10/15/ | Abstract | Cardiology General | Unknown . | Car Gen Record | | 2017 | | at [facility] [address] | | Review (GEN | | | | [address] Mailcode: | | Checklist ) | | | | [facility] | | | | | | Health and [facility], | | | | | | Building | | | | | | Floor [place], [place] | | | | | | [address] | | | | | | [phone] | | | +--------+ + + + [...] documented as of this encounter Progress Notes Iris Skelton - 10/15/2017 1:22 PM PDTFormatting of this note might be different from bill javier. General Cardiology New Patient Record Check List Procedure Where/Date Date requested Report received? Y/N, Where? Imaging received? CD/ IMPAX/Not Available Comments Referring Provider notes N/A Internal Referral Last EKG (REPORT ONLY) Note: Tracings needed if being seen for abnormal ECG [facility] N/A Last Echo images and report No Last Stress Test images and report No Last Cardiac Catheterization images and report No Last Holter or Event monitor report only No N/A Labs (BMP, Lipids, TSH, Hemoglobin A1C in last 6 months) [facility] N/A Last Device Check (schedule device check if due) No N/A Last Cardiac MRI report and images if available No Cardiac CTA report and images if available No Patient Preferred Lab [facility] N/A N/A N/A Additional Comments: documented in this encoun ter Plan of Treatment +--------+ + + + [...]
--- OUTSIDE RECORDS SUMMARY | ~2018-12-18 | XMS | Encounter Summary ---
Demographics + + + | Address | [address] | | | [place] [address] | + + + | Home Phone [...] + + + | Author | [facility] | + + + | Organization | [facility] [employer] [facility] | + + + | Address | Unknown | + + + | Phone | Unavailable | + + + Support + + +---------+ + | Name | Relationship | Address | Phone | + + +---------+ + | Mary Medellin | ECON | Unknown | | + + +---------+ + Care Team Providers + +------+ + | Care Post Acute Care Nurse Practitioner Name | Role | Phone | + [...] Test Results | | 2018 | | [place] [address] [address] | PA-C [address] | | | | | [address] | [address] | | | | | Mailcode: OC8D | [place], [place] | | | | | [facility] | [address] | | | | | and Healing, | [phone] | | | | | [address] | | | | | | [place], [place] | | | | | | [address] | | | | | | [phone] | | | +--------+ + + + [...]
--- OUTSIDE RECORDS SUMMARY | ~2018-12-18 | XMS | Encounter Summary ---
Demographics + + + | Address | [address] | | | [place] [address] | + + + | Home Phone [...] + | Author | [facility] [employer] [facility] | + + + | Organization | [facility] [employer] [facility] | + + + | Address | Unknown | + + + | Phone | Unavailable | + + + Support + + +---------+ + | Name | Relationship | Address | Phone | + + +---------+ + | Mary Medellin | ECON | Unknown | | + + +---------+ + Care Team Providers + +------+ + | Care Supervisor [place] Name | Role | Phone | + [...] Pharmacy | | | | | | [address] | | | | | | [place], | | | | | | [place] [address] | | | +--------+ + + + [...]
--- OUTSIDE RECORDS SUMMARY | ~2018-12-18 | XMS | Clinical Summary ---
Demographics + + + | Address | [address] | | | [place] [address] | + + + | Home Phone [...] Team Providers + +------+ + | Care Ornamental Metalwork Designer Name | Role | Phone | + +------+ + | Shakir Monzon MD | PCP | | + +------+ + Source Comments LINDA is fully live on both EpicCare Ambulatory and EpicCare InPatient.[facility] Allergies + + + + + + | Active Allergy | Reactions | Severity | Noted | Comments | | | | | Date | | + + + + + + | Hydromorphone | Anxiety, Confusion, | High | 08/04/19 | | | | Delirium | | 18 | | + + + + + + Medications + + + +---------+------+------+-------+ | Medication | Sig | Dispensed | Refills | Star | End | Statu | | | | | | t | Date | s | | | | | | Date | | | + + + +---------+------+------+-------+ | rifAXIMin 550 mg | Take 550 mg by mouth | | 0 | | | Activ | | oral tablet | two times daily. | | | | | e | + + + +---------+------+------+-------+ | omeprazole 40 mg | Take 40 mg by mouth | | 0 | | | Activ | | oral capsule,delayed | once daily in the | | | | | e | | release(DR/EC) | morning. | | | | | | + + + +---------+------+------+-------+ | rosuvastatin | Take 10 mg by mouth | | 0 | | | Activ | | (CRESTOR) 10 mg oral | once daily. | | | | | e | | tablet | | | | | | | + + + +---------+------+------+-------+ | insulin aspart | Inject 30 Units | | 0 | | | Activ | | U-100 [...] mouth | | 0 | | | Activ | | oral tablet | once daily. | | | | | e | + + + +---------+------+------+-------+ | LANTUS SOLOSTAR | Inject 40 Units | | 0 | | | Activ | | U-100 [...] Take 30 mL by mouth | | 0 | | | Activ | | gram/15 mL oral | three times daily. | | | | | e | | solution | | | | | | | + + + +---------+------+------+-------+ | nitroglycerin 0.4 | Place 1 tablet under | 25 | 0 | 09/1 | | Activ | | [...] | Take 1 tablet by | | 0 | 09/ | | Activ | | tartrate 25 mg oral | mouth two times | | | 20 | | e | | tablet | daily. | | | 18 | | | + + + +---------+------+------+-------+ | mesalamine 500 mg | Take 500 mg by mouth | | 0 | | | Activ | | oral capsule, | two times daily. | | | | | e | | extended release | | | | | | | + + + +---------+------+------+-------+ | nicotine | Take 1 each by mouth | 40 each | 1 | / | | Activ | | polacrilex 2 mg | as needed. Chew | | | 11/04 | | e | | buccal gum | slowly | | | 18 | | | + + + +---------+------+------+-------+ | ibuprofen 200 mg | Take 200 mg by mouth | | 0 | | | Activ | | oral | once daily as | | | | | e | | tabletIndications: | needed. Indications: | | | | | | | shoulder pain | shoulder pain | | | | | | + + + +---------+------+------+-------+ | aspirin 325 mg | Take 325 mg by mouth | | 0 | | | Activ | | oral | once daily as | | | | | e | | tabletIndications: | needed. Indications: | | | | | | | shoulder pain | shoulder pain | | | | | | + + + +---------+------+------+-------+ | isosorbide | Take 1 tablet by | 90 | 3 | 04/1 | | Activ | | mononitrate CR 30 mg | mouth once daily. | tablet | | 2/20 | | e | | oral tablet | Indications: Chronic | | | 19 | | | | extended release 24 | Stable Angina | | | | | | | hrIndications: | | | | | | | | Chronic Stable | | | | | | | | Angina Pectoris (DO | | | | | | | | NOT USE) | | | | | | | + + + +---------+------+------+-------+ Active Problems + + + | Problem | Noted Date | + + + | Gallbladder perforation | 08/03/2017 | + + + | Hepatic cirrhosis | 10/14/2016 | + + + | Chronic hepatitis C without hepatic coma | 10/14/2016 | + + + Family History + [...] recent travel history available. | + + Last Filed Vital Signs + [...] | | + + + + + Plan of Treatment [...] + + + + + | Pneumococcal | | | | | vaccination (1 of 1 | 2 | | | | - PPSV23) | | | | + + + + + | Hepatocellular | | 09/24/2017, 08/05/2017 | | | carcinoma screening | 9 | | | + + + + + | Influenza (Flu) | | 12/01/2016, 12/08/2012 | | | vaccination (#1) | 9 | | | + + + + + Results Not on filefrom Last 3 Months Insurance + +--------+ +--------+ + +--------+ | Payer | Benefi | Subscriber | Effect | Phone | Address | Type | | | t Plan | ID | toney | | | | | | / | | Dates | | | | | | Group | | | | | | + +--------+ +--------+ + +--------+ | [place] | OHP | [id number] | 04/16/19 | [phone] | [address] | [address] | | | PLUS | | 18-Pre | 6 | [phone] | id | | | OPEN | | sent | | [place], [place] | | | | CARD | | | | [id number] | | + +--------+ +--------+ + +--------+ | [facility] | [employer] | [id number] | | | | Agency | | SERVICE | | | 018-Pr | | | | | | HEALTH | | esent | | | | | | | | | | | | | | SERVIC | | | | | | | | E | | | | | | + +--------+ +--------+ + +--------+ + +--------+ +--------+ + + | Guarantor Name | Accoun | Relation to | Date | Phone | Billing Address | | | t Type | Patient | of | | | | | | | | | | + +--------+ +--------+ + + | Bret Espinal Jr. | Person | Self | [birth year] | [address] | | | al/Fam | | 1955 | [phone] | [place] [address] | | | eryn | | | 1 (Home) | | + +--------+ +--------+ + + Advance Directives + + + + + | Code Status | Date | Date | Comments | | | Activated | Inactivated | | + + + + + | Full Code | 08/03/2017 | 08/07/2017 | | | | 10:43 AM | 7:38 PM | | + + + + +
--- OUTSIDE RECORDS SUMMARY | ~2018-12-18 | XMS | Encounter Summary ---
Demographics + + + | Address | [address] | | | [place] [address] | + + + | Home Phone [...] + + | Author | [facility] [employer] [facility] | + + + | Organization | [facility] [employer] [facility] | + + + | Address | Unknown | + + + | Phone | Unavailable | + + + Support + + +---------+ + | Name | Relationship | Address | Phone | + + +---------+ + | Mary Medellin | ECON | Unknown | | + + +---------+ + Care Team Providers + +------+ + | Care Sales Representative Cash Registers Name | Role | Phone | + [...] Test Results | | 2017 | | [place] [address] | PA-C [address] | | | | | [address] | [address] | | | | | Mailcode: OC8D | [place], [place] | | | | | [facility] | [address] | | | | | and Healing, | [phone] | | | | | [address] | | | | | | [place], [place] | | | | | | [address] | | | | | | [phone] | | | +--------+ + + + [...]
--- OUTSIDE RECORDS SUMMARY | ~2018-12-18 | XMS | Encounter Summary ---
Demographics + + + | Address | [address] | | | [place] [address] | + + + | Home Phone | | + + + | Preferred Language | Unknown | + + + | Marital Status | Single | + + + | Confucianist Affiliation | NRP | + + + | Race | or | + + + | Ethnic Group | Not or | + + + Author + + + | Author | [facility] [facility] | + + + | Organization | [facility] | + + + | Address | Unknown | + + + | Phone | Unavailable | + + + Support + + +---------+ + | Name | Relationship | Address | Phone | + + +---------+ + | Mary Medellin | ECON | Unknown | | + + +---------+ + Care Team Providers + +------+ + | Care Multisensor Intelligence Officer Name | Role | Phone | [...] | | | | | artery | Te[address] | [facility] | | | | | disease) | Health | [address] [place], | | | | | Procedures | Center | [place] | | | | | CONSULT TO | [address] | [address] | | | | | CARDIOLOGY | [place] | Phone: | | | | | [facility] | Way | [phone] | | | | | PATIENT | [place], | Fax: | | | | | [place] | [place] [address] | [phone] | | | | | EST PATIENT | Phone: | | | | | | [place] | [phone] | | | | | | | Fax: | | | | | | | [phone] | | + +--------+ + + + [...] disease, angina | | | | [address] | [facility] [address] | presence | | | | Mailcode: [id number] | [place], [place] | unspecified, | | | | [facility] | [address] | unspecified vessel | | | | [address], | [phone] | or lesion type, | | | | [place] [address] | | unspecified whether | | | | [phone] | | walker river or | | | | | | transplanted heart | | | | | | (Primary Dx); | | | | | | Coronary artery | | | | | | disease involving | | | | | | walker river coronary | | | | | | artery of walk[place] river | | | | | | heart [...] per Dr. Gan's note. Bill Iglesias DO Banquet Lead Clinical legal referee/ Division of Cardiovascular Medicine Michelle Velez MD - 05/25/2017 4:00 PM PDT [facility] Cardiology Clinic Consult Name: Mr. rBet Espinal Jr. : 1955 REASON FOR CONSULTATION: [...] Espinal presented initially in early [facility] with an episode of chest daisy [...] RCA. -will request angiogram be pushed from [facility] in [place] -continue metoprolol -continue losartan -continue rosuvastatin (unable [...] review. ADDEND: Angiogram requested and uploaded into [employer]. Case reviewed with Dr. Nazario, who recommended [...] s. He does not have a local crepe sole scourer and would prefer to followup at [facility] for his cardia c care. I stated I would be happy to see him back at any time. He will continue with regular followups with his primary care provider. Thank you for the interesting consultation. This patient was discussed with my attending , Dr. Iglesias, who agrees with my assessment and plan unless otherwise noted. Michelle Gan MD Cardiovascular Medicine Fellow [facility] [place] [facility] [place] Pager [phone] documented in this enc ounter Plan of [...] whether | | | | | | walker river or | | | | | | [...] [place] | [address] | [place], [place] | | | CARDIOLOGY | [address] | [address] | | + + + + + documented in this encounter Visit Diagnoses + + | Diagnosis | + + | Coronary artery disease, angina presence unspecified, unspecified vessel or lesion | | type, unspecified whether walker river or transplanted heart - Primary | + + | 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
--- OUTSIDE RECORDS SUMMARY | ~2018-12-18 | XMS | Encounter Summary ---
Demographics + + + | Address | [address] | | | [place] [address] | + + + | Home Phone [...] + + + | Author | [facility] [email or web address] [facility] | + + + | Organization | [facility] [employer] [facility] | + + + | Address | Unknown | + + + | Phone | Unavailable | + + + Support + + +---------+ + | Name | Relationship | Address | Phone | + + +---------+ + | Mary Medellin | ECON | Unknown | | + + +---------+ + Care Team Providers + +------+ + | Care Welding Equipment Repairer Name | Role | Phone | + +------+ + | Shakir Monzon MD | PCP | | + +------+ + Encounter Details +--------+ + + + + | Date | Type | Department | Care Team | Description | +--------+ + + + + | 11/29/ | Letterer | Digestive Health | Clinton Morillo, | Gallbladder | | 2018 | | Center at [facility] [address] | [address] | perforation (Primary | | | | [address] | [address] | Dx) | | | | Mailcode: Center | [place], [place] | | | | | for [facility] and | [address] | | | | | [facility] 2 | [phone] | | | | | [place], [place] | | | | | | [address] | | | | | | [phone] | | | +--------+ + + + [...]
--- OUTSIDE RECORDS SUMMARY | ~2018-12-18 | XMS | Encounter Summary ---
Demographics + + + | Address | [address] | | | [place] [address] | + + + | Home Phone | | + + + | Preferred Language | Unknown | + + + | Marital Status | Single | + + + | Anabaptist Affiliation | NRP | + + + | Race | or | + + + | Ethnic Group | Not or | + + + Author + + + | Author | [facility] [employer] [facility] | + + + | Organization | [facility] [employer] [facility] | + + + | Address | Unknown | + + + | Phone | Unavailable | + + + Support + + +---------+ + | Name | Relationship | Address | Phone | + + +---------+ + | Mary Medellin | ECON | Unknown | | + + +---------+ + Care Team Providers + +------+ + | Care Registered Respiratory Therapist Name | Role | Phone | + [...] | | | | Mailcode: Center | [place], [place] | | | | | [facility] and | [address] | | | | | [facility] | [phone] | | | | | [place], [place] | | | | | | [address] | | | | | | [phone] | | | +--------+ + + + [...]
--- OUTSIDE RECORDS SUMMARY | ~2018-12-18 | XMS | Clinical Summary ---
Demographics + + + | Address | [address] | | | [place] [address] | + + + | Home Phone | | + + + | Preferred Language | Unknown | + + + | Marital Status | Single | + + + | Gnosticist Affiliation | Unknown | + + + | Race | Unknown | + + + | Ethnic Group | Unknown | + + + Author + + + | Author | [facility] [employer] (Historical as of | | | 10-01-18) | + + + | Organization | [facility] [employer] (Historical as of | | | 10-01-18) [...] Team Providers + +------+ + | Care Imaging Aide Name | Role | Phone | [...] | | | + +--------+ +------+-------+---------+ | [facility] | YELLOW | [id number] | | | | | PLANS | [...] | Self | [birth year] | Home: | [address] | | | al/Fam | | 1956 | [phone] [place] | | | eryn | | | [phone] | [address] | + +--------+ +--------+ + +
--- OUTSIDE RECORDS SUMMARY | ~2018-12-18 | XMS | Encounter Summary ---
Demographics + + + | Address | [address] | | | [place] [address] | + + + | Home Phone [...] + + | Author | [facility] [facility] | + + + | Organization | [facility] [employer] [facility] | + [...] Team Providers + +------+ + | Care Advertising Writer Name | Role | Phone | + [...] Lab Order | | 2017 | | [place] at [facility] [address] | [address] | | | | | [address] | [address] | | | | | Mailcode: OC8D | [place], [place] | | | | | [facility] | [address] | | | | | and [place], | [phone] | | | | | [address] | | | | | | [place], [place] | | | | | | [address] | | | | | | [phone] | | | +--------+ + + + [...]
--- OUTSIDE RECORDS SUMMARY | ~2018-12-18 | XMS | Encounter Summary ---
Demographics + + + | Address | [address] | | | [place] [address] | + + + | Home Phone [...] + + | Author | [facility] | + + + | Organization | [facility] [facility] | + + + | Address | Unknown | + + + | Phone | Unavailable | + + + Support + + +---------+ + | Name | Relationship | Address | Phone | + + +---------+ + | Mary Medellin | ECON | Unknown | | + + +---------+ + Care Team Providers + +------+ + | Care Spool Hauler Name | Role | Phone | + +------+ + | Shakir Monzon MD | PCP | | + +------+ + Reason for Referral Consultation (Routine) +--------+--------+ + + + + | Status | Reason | Specialty | Diagnoses / | Referred By | Referred To | | | | | Procedures | Contact | Contact | +--------+--------+ + + + + | Closed | | Gastroenterol | Diagnoses | Tay Blake | | | | ogbrandon | | Doretha Gooden MD | [facility] [address] | | | | | Choledocholi | [address] | [address] | | | | | thiasis | Ave | Mailcode: | | | | | Procedures | [place], [place] | [place] for | | | | | CONSULT TO | [address] | Health and | | | | | GASTROENTERO | Phone: | Healing, | | | | | [address] | [phone] | [address] | | | | | | Fax: | [place], [place] | | | | | | [phone] | [address] | | | | | | | Phone: | | | | | | | [phone] | | | | | | | Fax: | | | | | | | [phone] | +--------+--------+ + + + + Reason for Visit + + + | Reason | Comments | + + + | New patient | | | consultation | | + + + Encounter Details +--------+---------+ + + + | Date | Type | Department | Care Team | Description | +--------+---------+ + + + | 05/25/ | Office | Digestive Health | Doretha Blake, | Choledocholithiasis | | 2018 | Visit | Center at [facility] [address] | MD [address] | (Primary Dx) | | | | [address] | [address] | | | | | Mailcode: Center | [place], [place] | | | | | for Health and | [address] | | | | | [place] [address] | [phone] | | | | | [place], [place] | | | | | | [address] | | | | | | [phone] | | | +--------+---------+ + + + [...] + + + | Blood Pressure | 139/72 | 05/25/2017 8:21 AM | | | | | PDT | | + + + + + | Pulse | 71 | 05/25/2017 8:21 AM | | | | | PDT | | + + + + + | Temperature | 36.3 C (97.4 F) | 05/25/2017 8:21 AM | | | | | PDT | | + + + + + | Respiratory Rate | 16 | 05/25/2017 8:21 AM | | | | | PDT | | + + + + + | Oxygen Saturation | - | - | | + + + + + | Inhaled Oxygen | - | - | | | Concentration | | | | + + + + + | Weight | 96.7 kg (213 lb 1.6 | 05/25/2017 8:21 AM | | | | oz) | PDT | | + + + + + | Height | 177.8 cm (5' 10") | 05/25/2017 8:21 AM | | | | | PDT | | + + + + + | Body Mass Index | 30.58 | 05/25/2017 8:21 AM | | | | | PDT | | + + + + + documented in this encounter Progress Notes Doretha Blake MD - 05/25/2017 8:20 AM PDTFormatting of this note might be different fr om the original. GENERAL SURGERY CONSULTATION History and Physical Consultation Date: 05/25/2017 Consulting Attending: Doretha Blake MD Referring Physician: Shakir Monzon MD REASON FOR CONSULT: Biliary colic HPI: Bret Espinal is a 61 yo male with Hep C/ EtOH cirrhosis (MELD 10), portal hypertension, va rices, thrombocytopenia, DMII, DARIEL, newly diagnosed afib on metoprolol referred for possible symptomatic cholelithiasis. Patient was recently discharged following long hospitalization. He had presented to the ER due to severe "chest pain", described as substernal and epigastric pressure. He had associa dominik SOB and radiation to his left arm. He denied any RUQ pain, nausea or vomiting at the bahman e. He has had similar symptoms 2 other times over the last 6 months, although less severe; h ad it once with activity, the other at rest. Again no nausea or vomiting. Uncertain if prior episodes were associated with food. On work-up he was found to have elevated troponins and GNR bacteremia. Per , she states an ultrasound was done and was told his infection was d ue to his gallbladder. I am unable to locate ultrasound results but MRI showed only possible tiny filling defects in the distal CBD, no evidence of cholecystitis. He had a slight eleva tion of bilirubin but it was unclear if this was secondary to his liver disease. He was star dominik on IV antibiotics with improvement. Given chest pain and elevated troponins, he also und erwent cardiac catheterization for chest pain and elevated enzymes. Found to have severe mul ti-vessel disease of varying stenosis which was not amenable to stenting. Medical management was recommended as he was felt to be too high risk for surgery. He completed antibiotics on May 14. Per , ERCP at that time was recommended but not performed because they were worried abo ut his heart. His says he was later cleared by Cardiology for the procedure but it has not been done. Of note, his pain resolved with cardiac medications and IV antibiotics. His d iet was advanced without recurrence of symptoms. He denies any pain with eating. No nausea or vomiting. He had eggs and sausage this morning without problem. Denies fevers, chills. PAST MEDICAL HISTORY: Chronic hepatitis C Cirrhosis of liver with ascites Portal hypertension Varices Decompensated HCV cirrhosis DMII Multi-vessel CAD Dermatitis GERD HLD Internal hermorrhoids Lichen Planus Sleep apnea no CPAP Thrombocytopenia Tobacco use disorder Vitamin D deficiency PAST SURGICAL HISTORY: Colonoscopy Upper Gastrointestinal endoscopy 05/05/2016, 07/27/2016, 12/10/2016 R wrist surgery Vasectomy with subsequent reversal Knuckle surgery FAMILY HISTORY: Alcohol abuse in an other family member; Cancer in his father; Diabetes in his mother and a nother family member; Lymphoma in an other family member; No Known Problems in his brother, maternal grandfather, maternal grandmother, paternal grandfather, paternal grandmother, and sister; Thyroid cancer in an other family member. SOCIAL HISTORY: reports that he has been smoking Cigarettes. He has a 11.25 pack-year smoking history. He h as never used smokeless tobacco. He reports that he drinks alcohol, "use to be an alcoholic" . He reports that he uses drugs, including Marijuana. MEDICATIONS: Current Medication List Name Sig AMOXICILLIN 875 MG-POTASSIUM CLAVULANATE 125 MG TABLET Take 1 tablet by mouth every twelve hours. CHOLECALCIFEROL (VITAMIN D3) 5,000 UNIT CAPSULE Take by mouth. INSULIN GLARGINE (U-100) 100 UNIT/ML SUBCUTANEOUS SOLUTION Inject 30 Units under the skin ( SUBC) once daily at bedtime. INSULIN U-100 REGULAR HUMAN 100 UNIT/ML INJECTION SOLUTION Inject under the skin (SUBC) thr ee times daily before meals. LACTULOSE ORAL Take 25 mg by mouth. METFORMIN ER 1,000 MG TABLET,EXTENDED RELEASE 24HR Take by mouth. METOPROLOL TARTRATE 12.5 MG ORAL DOSE Take by mouth two times daily. NITROQUICK SL Place under tongue. OMEPRAZOLE 40 MG CAPSULE,DELAYED RELEASE Take by mouth. RIFAXIMIN 550 MG TABLET Take by mouth. ROSUVASTATIN 10 MG TABLET Take 10 mg by mouth once daily. ALLERGIES: No Known Allergies ROS: Review of systems negative except as noted above in HPI PHYSICAL EXAM: There were no vitals taken for this visit. General: Alert and oriented, comfortable, NAD. Nontoxic appearing HEENT: Normocephalic. EOM grossly intact. No scleral icterus Neck: Supple, no JVD Respiratory: CTA bilaterally. Normal inspiratory effort Cardiovascular: RRR, no murmurs appreciated Abdomen: Soft, NT, ND. Negative Caldera's sign. Skin: no rashes Extremities: Warm and well perfused, no pitting edema Psych: mood and affect appropriate LABS: IMAGING: MRI 04/26/17 CARDIAC CATH 04/28/2017 EKG 04/26/2017 ASSESSMENT: Bret Espinal Jr. is a 61 y.o. male with multiple comorbidities including cirrhosis, portal hypertension, recent diagnosis of severe multi-vessel CAD on medical management with recent admission for GNR bacteremia presumed secondary to biliary source. Most recent MRI showed n o evidence of cholecystitis but did show possible tiny filling defects in the distal CBD. Hi s history is less consistent with symptomatic cholelithiasis but bacteremia with possible CB D filling defects raises suspicion for a transient cholangitis during his recent hospitaliza tion. Given his advanced liver disease and severe CAD, his surgical risk is felt to be too h igh to offer an elective cholecystectomy. However, he may benefit from ERCP with possible st one extraction and sphincterotomy if GI feels benefit outweighs the risk. RECOMMENDATIONS: -Consult to GI for consideration for ERCP -Patient advised to seek immediate medical attention if he develops severe abdominal pain, fevers, intractable nausea/vomiting as he may develop sequela of gallstones that may require urgent intervention. Patient and spouse acknowledged understanding. Doretha Blake MD [facility] General Surgery documented in this e ncounter Plan of [...] + | Diagnosis | + + | Choledocholithiasis - Primary Calculus of bile duct without mention of cholecystitis | | or obstruction | + + documented in this encounter
--- OUTSIDE RECORDS SUMMARY | ~2018-12-18 | XMS | Encounter Summary ---
Demographics + + + | Address | [address] | | | [place] [address] | + + + | Home Phone | | + + + | Preferred Language | Unknown | + + + | Marital Status | Single | + + + | Moravian Affiliation | NRP | + + + | Race | or | + + + | Ethnic Group | Not or | + + + Author + + + | Author | [facility] | + + + | Organization | [facility] | + + + | Address | Unknown | + + + | Phone | Unavailable | + + + Support + + +---------+ + | Name | Relationship | Address | Phone | + + +---------+ + | Mary Medellin | ECON | Unknown | | + + +---------+ + Care Team Providers + +------+ + | Care Pediatric Licensed Practical Nurse Name | Role | Phone | + [...] | | | | [address] | [facility] | | | | | Mailcode: Center | [place], [place] | | | | | [facility] and | [address] | | | | | [facility] | [phone] | | | | | [place], [place] | | | | | | [address] | | | | | | [phone] | | | +--------+ + + + [...]
--- OUTSIDE RECORDS SUMMARY | ~2018-12-18 | XMS | Encounter Summary ---
Demographics + + + | Address | [address] | | | [place] [address] | + + + | Home Phone [...] Team Providers + +------+ + | Care Intermission Coordinator Name | Role | Phone | [...] + + | 10/07/ | Documentati | [facility] | Kady Cortez | Nu ([place]or | | 2019 | on | CARDIOLOGY BRANDYN [place], Non Emergency Services Ambulance Driver | [facility] ) | | | | [address] | | | | | | [place] | | | | | | [address] | | | | | | [phone] | | | +--------+ + + + [...] [place]ER | | | | | | [id number] | | | | | | | | +--------+---------+ + + + documented as of this encounter Visit Diagnoses Not on filedocumented in this encounter"
--- OUTSIDE RECORDS SUMMARY | ~2018-12-18 | XMS | Encounter Summary ---
Demographics + + + | Address | [address] | | | [place] [address] | + + + | Home Phone [...] | Author | [facility] | + + + | Organization | [facility] | + + + | Address | Unknown | + + + | Phone | Unavailable | + + + Support + + +---------+ + | Name | Relationship | Address | Phone | + + +---------+ + | Mary Medellin | ECON | Unknown | | + + +---------+ + Care Team Providers + +------+ + | Care Advertisement Distributor Name | Role | Phone | + [...] | Trauma Center | Diagnoses | [facility] | | | | | | Shakir Fagan MD | Center Ppv | | | | | Cholelithias | Ric[place] | [address] [facility] | | | | | es | [place] | [facility] | | | | | | Health | Rd Mailcode: | | | | | | Center | [address] | | | | | | [address] | Physician's | | | | | | [place] | [address] | | | | | | Way | [address] | | | | | | [place], | [place], [place] | | | | | | [place] [address] | [address] | | | | | | Phone: | Phone: | | | | | | [phone] | [phone] | | | | | | Fax: | Fax: | | | | | | [phone] | [phone] | +--------+--------+ + + + + Encounter [...] | | [address] | [facility], [place] | obstruction (Primary | | | | Mailcode: [address] | [address] | Dx); Chronic | | | | [facility] | [phone] | hepatitis C without | | | | [address] [place], [place] | | hepatic coma (HCC) | | | | [address] | | | | | | [phone] | | | +--------+---------+ + + + [...] and not resume. Dion Mac MD, FACS Envelope Machine Adjuster, Trauma, Critical Care and Acute Care Surgery [...]
--- OUTSIDE RECORDS SUMMARY | ~2018-12-18 | XMS | Encounter Summary ---
Demographics + + + | Address | [address] | | | [place] [address] | + + + | Home Phone [...] + + | Author | [facility] | + + + | Organization | [facility] | + + + | Address | Unknown | + + + | Phone | Unavailable | + + + Support + + +---------+ + | Name | Relationship | Address | Phone | + + +---------+ + | Mary Medellin | ECON | Unknown | | + + +---------+ + Care Team Providers + +------+ + | Care Honing Job Setter Name | Role | Phone | [...] [address] | | | | | | [place], [place] | Mailcode: | | | | | | [address] | [facility] | | | | | | Phone: | for Health | | | | | | [phone] | and Healing, | | | | | | Fax: | [address] | | | | | | [phone] | [place], [place] | | | | | | | [address] | | | | | | | Phone: | | | | | | | [phone] | | | | | | | Fax: | | | | | | | [phone] | +--------+--------+ + + + + Encounter Details +--------+---------+ + + + | Date | Type | Department | Care Team | Description | +--------+---------+ + + + | 10/14/ | Office | Digestive Health | Bessy Solano, | Hepatic cirrhosis, | | 2017 | Visit | Center at [facility] [address] | unspecified hepatic | | | | [place] | [address] | cirrhosis type (HCC) | | | | Mailcode: OC[facility] | [place], [place] | (Primary Dx); | | | | [facility] | [address] | Chronic hepatitis C | | | | and Healing, | [phone] | without hepatic coma | | | | Building [address] | | (HCC) | | | | [place], [place] | | | | | | [address] | | | | | | [phone] | | | +--------+---------+ + + + [...] and ETOH abstinence. Paul Rice MD, MS vacuum conditioner operator Director of Clinical Hepatology [facility] Division of Gastroenterology/Hepatology Bessy Villar PA-C - [...] ~2014 per patient 4. 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 Recent MELDS 10-11, he is borderline miguel A/B status. We discussed the natural history [...] months or sooner PRN. Bessy Solano PA-C [facility] 6TH FLOOR [address] Mailcode: [place] [address] Counseling Time: I spent more [...] + + + | SHAUN | [address] | [place] [address] | | | DIAGNOSTIC | [address] [...] [facility] | [address] | [place] [address] | | | SERVICES, CORE | PARK [...] modified from | [facility] | | original community nurse's approved specifications. The performance | LABORATORY | | of the STRAIN TECHNICIAN HIV Combo test, with or without confirmation, was not | SERVICES, | | tested in pediatric patients less than 2 years of age. [facility] | SPECIAL IMM + | | [...] | + + + + + | [facility] | [address] | [place] [address] | | | SERVICES, SPECIAL | PARK [...] - | | | | | | [facility] | | + + + + + + + + | Specimen | + + | Blood - Blood | | (substance) | + + + + + + + | Performing | Address | City/State/Zipcode | Phone Number | | Organization | | | | + + + + + | FLOOD - AIRPORT - | [address] | [place] [address] | | | [place] | | | [...] [facility] | [address] | [place] [address] | | | SERVICES, CORE | PARK [...] by | | | | | | [employer],[address] | | | | | | [address], [facility] | | | | | | [address] | | | | | | [phone]. | | | | | | Júnior [...] [facility] | [address] | [place], [place] | | | [facility] | | [address] | | + + + + + [...] [facility] | [address] | [place] [address] | | | SERVICES, CORE | PARK [...] | + + + + + | [facility] | [address] | [place] [address] | | | SERVICES, CORE | PARK [...] | | | LABORATORY | | | BRITISH | | | SERVICES, | | | [...] [facility] | [address] | [place] [address] | | | SERVICES, CORE | PARVEEN [...]
--- OUTSIDE RECORDS SUMMARY | ~2018-12-18 | XMS | Encounter Summary ---
Demographics + + + | Address | [address] | | | [place] [address] | + + + | Home Phone [...] | Author | [facility] | + + + | Organization | [facility] | + + + | Address | Unknown | + + + | Phone | Unavailable | + + + Support + + +---------+ + | Name | Relationship | Address | Phone | + + +---------+ + | Mary Medellin | ECON | Unknown | | + + +---------+ + Care Team Providers + +------+ + | Care Manager Deli Name | Role | Phone | + +------+ + | Shakir Monzon MD | PCP | | + +------+ + Reason for Visit + + + | Reason | Comments | + + + | New Patient Visit | | + + + Consultation (Routine) +--------+--------+ + + + + | Status | Reason | Specialty | Diagnoses / | Referred By | Referred To | | | | | Procedures | Contact | Contact | +--------+--------+ + + + + | Closed | | Cardiology | Diagnoses | | Kin, | | | | | Shortness | Casey, | Sharon Cole, | | | | | of breath | MD Elle | PA-C [address] | | | | | Procedures | [address] | [place] | | | | | CONSULT TO | [address] [place] | [place], [place] | | | | | CARDIOLOGY | [address] | [address] | | | | | | [place], [place] | Phone: | | | | | | [address] | [phone] | | | | | | Phone: | Fax: | | | | | | [phone] | [phone] | | | | | | Fax: | | | | | | | [phone] | | +--------+--------+ + + + + Encounter Details +--------+---------+ + + + | Date | Type | Department | Care Team | Description | +--------+---------+ + + + | 11/01/ | Office | Cardiology General | Sharon Sanderson | Dyspnea, unspecified | | 2018 | Visit | at [facility] [address] | SHENA Cole [address] | type (Primary Dx); | | | | [address] Mailcode: | [address] [place], | Coronary artery | | | | [facility] | [place] [address] | disease involving | | | | [facility], | [phone] | [place] coronary | | | | Building | | artery, angina | | | | Floor [place], [place] | | presence | | | | [address] | | unspecified, | | | | [phone] | | unspecified whether | | | | | | [place] or | | | | | | transplanted heart; | | | | | | Essential | | | | | | hypertension; | | | | | | Pre-operative | | | | | | cardiovascular | | | | | | examination | +--------+---------+ + + + Social History [...] + + + | Blood Pressure | 155/75 | 11/01/2017 9:02 AM | | | | | PDT | | + + + + + | Pulse | 70 | 11/01/2017 9:02 AM | | | | | PDT | | + + + + + | Temperature | 36.8 C (98.2 F) | 11/01/2017 9:02 AM | | | | | PDT | | + + + + + | Respiratory Rate | - | - | | + + + + + | Oxygen Saturation | 98% | 11/01/2017 9:02 AM | | | | | PDT | | + + + + + | Inhaled Oxygen | - | - | | | Concentration | | | | + + + + + | Weight | 94.4 kg (208 lb 1.6 | 11/01/2017 9:02 AM | | | | oz) | PDT | | + + + + + | Height | 180.3 cm (5' 11") | 11/01/2017 9:02 AM | | | | | PDT | | + + + + + | Body Mass Index | 29.02 | 11/01/2017 9:02 AM | | | [...] of this encounter Patient Instructions Patient Instructions Sharon Sanderson PA-C - 11/01/2017 9:00 AM PDT1. Make sure you a re taking metoprolol tartrate 25 mg twice daily 2. Start isosorbide mononitrate 30 mg each morning. If it gives you a headache then take a Tylenol 30 minutes before taking.Electronically signed by Sharon Sanderson PA-C at 11/01 9:44 AM PDT documented in this encounter Progress Notes Sharon Sanderson PA-C - 11/01/2017 9:00 AM PDTFormatting of this note might be differ ent from the original. CARDIOLOGY ENCOUNTER NOTE Reason for Visit: This is a scheduled visit for cardiac evaluation and risk assessment. He is here with his w vito. History: Per chart review: Bret Espinal Jr. is a 62 y.o. 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 Plan for cardiology evaluation given ca rdiac history and new worse shortness of breath after recent hospitalizations, need preopera tive evaluation and optimization of heart. We will have him obtain echo near his home and br ing report for cardiology consult. He was seen by cardiology, Michelle Gan MD on May 25, 2017 and his coronary angiogram was reviewed with our intervention team. His coronary disease was not amenable to intervent ion and medical management advised. Cardiac rehab was suggested but he did not start it. Kaye cole was admitted in July for ruptured gallbladder and has had a drainage tube since then. He reports dyspnea on exertion with mild chest pain over the last few months. He also has pain from the drainage tube. He has SL nitroglycerin but has not taken it. His weight has increa sed by 5 pounds. Today, patient reports history of coronary artery disease; he reports a history of small my ocardial infarction in April 2017. Patient reports history of congestive heart failure namrata g his admission in July. He denies history of DVT/PE Patient reports chest pain in April that took him to local ED and was told it was his gallb ladder. He was transferred to another facility in [place] and went into atrial fibrillation. He had an angiogram at [place] which showed severe CAD and medical treatment was recom mended. He denies palpitations, tachycardia, irregular heart beat, paroxysmal nocturnal dys pnea, lower extremity edema. He is smoking few cigarettes per day. He is not drinking alcohol. He has not smoked marijua na for two weeks. He had an echocardiogram on October 27, 2017 at [facility] which reports normal LV size and function with LVEF of 60-65% with a mild aortic s tenosis and normal appearing IVC indicating normal central venous pressures. He did not take his medication today and reports that his PCP increased his metoprolol tart rate to 25 mg twice daily. He denies any reoccurrence of atrial fibrillation. History of Endocarditis or need for Endocarditis Prophylaxis? no History of Phen-Fen exposure? no Exercise History: He is limited by dyspnea on exertion MET ASSESSMENT: 3 METS Past Medical, Family & Social Histories: Medical, Family & Social histories were reviewed and updated in EMR based on conversation w ith the patient, and noteable for the following: (Please see that section of the EMR for ful l details) - all reviewed with patient today. Past Medical History: Diagnosis Date Cirrhosis of liver (HCC) Coronary artery disease Diabetes (HCC) Current Outpatient Prescriptions Medication Sig acetaminophen 500 mg oral tablet Take 1,000 mg by mouth every six hours as needed. acyclovir 5 % topical ointment Apply to affected area five times daily. PRN for outbrea ks acyclovir 800 mg oral tablet Take 800 mg by mouth five times daily. PRN for outbreaks Cholecalciferol (Vitamin D3) 5,000 unit oral capsule Take 5,000 Units by mouth once aniket ly. insulin aspart U-100 (NOVOLOG FLEXPEN U-100 INSULIN) 100 unit/mL subcutaneous insulin p en Inject three times daily per sliding scale before meals. If CBGs >150: no insulin; 150-20 0: 5 units; >201 10 units isosorbide mononitrate CR 30 mg oral tablet extended release 24 hr Take 1 tablet by once daily. Indications: Chronic Stable Angina Pectoris lactulose 10 gram/15 mL oral solution Take 30 mL by mouth three times daily. LANTUS SOLOSTAR U-100 INSULIN 100 unit/mL (3 mL) subcutaneous insulin pen Inject 60-80 Units under the skin (SUBC) every twelve hours. losartan 25 mg oral tablet Take 25 mg by mouth once daily. metoprolol tartrate 25 mg oral tablet Take 1 tablet by mouth two times daily. nitroglycerin 0.4 mg sublingual tablet, sublingual Place 1 tablet under tongue every fi ve minutes as needed for chest pain. Place under tongue and allow to dissolve. Administer e very 5 minutes, max of 3 doses in 15 minutes. omeprazole 40 mg oral capsule,delayed release(DR/EC) Take 40 mg by mouth once daily in the morning. oxyCODONE (immediate release) 5 mg oral tablet Take 1 to 2 tablets by mouth every four hours as needed for moderate pain. rifAXIMin 550 mg oral tablet Take 550 mg by mouth two times daily. rosuvastatin (CRESTOR) 10 mg oral tablet Take 10 mg by mouth once daily. No current facility-administered medications for this visit. Family History Problem Relation Coronary Artery Disease Father bypass surgery at 54, at 56 lymphoma Social History Substance Use Topics Smoking status: Current Every Day Smoker Packs/day: 0.10 Years: 40.00 Types: Cigarettes Smokeless tobacco: Never Used Alcohol use No Review of Systems: Pertinent items are noted in HPI. Physical Exam: Vitals reviewed and noted as: BP 155/75 | Pulse 70 | Temp (Src) 36.8 C (98.2 F) (Oral) | Ht 1.803 m (5' 11") | Wt 94. 4 kg (208 lb 1.6 oz) | SpO2 98% | BMI 29.02 kg/(m^2) Body mass index is 29.02 kg/m. Vital signs reviewed. General: comfortable, alert and cooperative HEENT: normal conjunctivae and anicteric sclerae Neck: supple without restricted range of motion, no jugular venous distention , trachea mi dline and no carotid bruits Heart and Lung: chest is clear without rales or wheezing and respiratory effort is unlabor ed, S1, S2 normal, no S3 or S4, heart sounds notable for 2/6 systolic murmur at LSB, regular rate and rhythm , peripheral pulses brisk and no pedal edema; Abdomen/rectal: abdomen is soft and no tenderness, rebound tenderness or guarding; Extremities: extremities normal without deformity, no clubbing or cyanosis Neuro: normal gait and station and no tremor Psych: bright affect, not apparently anxious or depressed, judgment and insight appropriat e in context of visit and apparently normal recent and remote memory Laboratory/Diagnostics: Per chart review, reviewed today and summarized below: Lab Results Component Value Date HB 14.0 10/13/2017 HCT 40.5 10/13/2017 PLT 78 10/13/2017 BUN 8 10/13/2017 CR 0.88 10/13/2017 GLU 248 10/13/2017 A1C 9.8 08/03/2017 ECG 10/21/2017 (My preliminary read based on review of tracing in clinic) - Sinus rhythm with inferior Q waves Outside records reviewed from [facility] (in media tab) Echo 10/27/17: 1. The left ventricle is normal in size, wall thickness and systolic function EF 60-65%. 2. The right ventricle is normal in size and function. 3. Mild degenerative changes in the aortic and mitral vavles. 4. There is no pericardial effusion. Cath 04/28/17: CONCLUSIONS: 1.Diffuse moderate to moderately [...] conditions, anemia and liver disease and thrombocytopenia. Echo 04/27/17: Conclusions Summary 1. Mild left atrial dilatation. [...] IVC without respiratory collapse suggesting fluid retention. Cardiac Risk Stratification (based on 2014 ACC/AHA Guideline on Perioperative Cardiovascula r Evaluation and Management of Patients Undergoing Noncardiac Surgery): 1. Need for emergency noncardiac surgery? b. No -> Proceed to next step 2. MEDICAL DECISION MAKING: Are active cardiac conditions present? No Calculate the combined surgical and patient-specific risk: RCRI risk calculator (one point for each "yes" answer) A. Elevated risk surgery?: yes B. Ischemic heart disease: yes C. Compensated / prior heart failure: yes D. Diabetes mellitus (treated with insulin): yes E. Renal insufficiency (Cr>2): no F. Cerebrovascular disease: no Risk of MACE 0 risk factors - 0.4% 1 risk factor - 0.9% 2 risk factors - 6.6% 3 risk factors - 11% The risk of major adverse cardiac event (MACE) is: 20% (greater than 1%). Determine functional capacity: Functional capacity is <4 METs. However, further CAD risk s tratification would not change the decision to proceed with surgery because recent angiogram with severe disease not amenable to intervention at this time. Surgery Specific Risk RCRI - (intraperitoneal; intrathoracic; suprainguinal vascular) 3. Good functional capacity? (>4 METS)b. No -> proceed with next step DASI Online Calculator 4. If poor (< 4 METs) or unknown functional capacity, will further testing will impact pat ient decision making or perioperative care - no Assessment/Plan:: Preoperative Evaluation: Bret Espinal Jr. is a 62 y.o. 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 he has 4 risk factor(s) undergoing Intermediate risk surg myranda, with an exercise tolerance of 2-3 METs with symptoms of dyspnea on exertion and stable angina which may be suggestive of ischemia. LVSF is normal. Nonspecific ST-T wave abnormalit ies shown on ECG are considered minor predictors, and that while recognized as markers for c ardiovascular disease, they have not been proven to increase perioperative risk independentl y. Per ACC/AHA guidelines, further risk stratification is not indicated prior to surgery, as results may not change perioperative management. Per Revised Cardiac Risk Index, predicted risk of perioperative cardiac morbidity/mortality is approximately 20%. He is a at high ris k for cardiac complications given his coronary artery disease, I have started him on long ac ting nitrate today, Imdur 30 mg daily for symptoms. At this point his CAD is medically manag ed and if he has complications angela-or post-operatively they can be addressed then. PCI wou ld not lower his cardiovascular risk of mortality/morbity for surgery and would only further delay his surgery. He is not a good candidate for DAPT given his liver disease and bleeding risk. - Recommend patient continue all blood pressure medications perioperatively, as preventing significant increases in double product or cardiac workload is grier in preventing perioperat toney cardiac complications. Continue statin medication perioperatively. I do not think that c ardiac rehab would be helpful at this point with his drainage tube in place. I discussed the implications of the preoperative evaluation with the patient including risk stratification. Patient informed of risks of continued smoking with surgery including poor wound healing, pulmonary complications as well as continued risk for heart disease, AK. Joyce ent advised to quit smoking prior to surgical intervention, preferably 1 month prior for opt imum outcome. Patient verbalized understanding of plan of care and instructions as outlined. A report of this preoperative evaluation will be sent to PCP Shakir Monzon MD and referring provider/surgeon Clinton Morillo MD and Michelle Gan MD. CARDIOLOGY - PREVENTIVE [address] Mailcode: [id number] [id number] [phone] signed by Sharon Sanderson PA-C at 11/01/2017 11:32 AM PDTdo cumented in this encounter Plan of Treatment +--------+ [...] in this encounter Results 12 LEAD ECG (11/01/2017 9:43 AM PDT) + + + + + + | Component | Value | Ref Range | Performed | Pathologist | | | | | At | Signature | + + + + + + | VENTRICULAR | 74 | bpm | [facility] | | | RATE | | | OF | | | | | | CARDIOLOGY | | + + + + + + | ATRIAL RATE | 74 | ms | [facility] | | | | | | OF | | | | | | CARDIOLOGY | | + + + + + + | P-R | 188 | ms | [facility] | | | INTERVAL | | | OF | | | | | | CARDIOLOGY | | + + + + + + | P AXIS | 26 | deg | [facility] | | | | | | OF | | | | | | CARDIOLOGY | | + + + + + + | QRS | 85 | ms | [facility] | | | DURATION | | | OF | | | | | | CARDIOLOGY | | + + + + + + | QT | 394 | ms | [facility] | | | | | | OF | | | | | | CARDIOLOGY | | + + + + + + | QTCB | 437 | ms | [facility] | | | | | | OF | | | | | | CARDIOLOGY | | + + + + + + | R AXIS | -67 | deg | [facility] | | | | | | OF | | | | | | CARDIOLOGY | | + + + + + + | T AXIS | -10 | deg | [facility] | | [...] DEPT | | | IMPRESSION | by: BHAVANI PATEL | | OF | | | | 11-01-2017 11:10:27 | | CARDIOLOGY | | + + [...] DEPT OF | [address] | [place], [place] | | | CARDIOLOGY | [address] | [address] | | + + + + + documented in this encounter Visit Diagnoses + + | Diagnosis | + + | Dyspnea, unspecified type - Primary | + + | Coronary artery disease involving [place] coronary artery, angina presence unspecified, | | unspecified whether [place] or transplanted heart | + + | Essential hypertension | + + | Pre-operative cardiovascular examination | + + documented in this encounter
--- OUTSIDE RECORDS SUMMARY | ~2018-12-18 | XMS | Encounter Summary ---
Demographics + + + | Address | [address] | | | [place] [address] | + + + | Home Phone [...] + + | Author | [facility] | + + + | Organization | [facility] | + + + | Address | Unknown | + + + | Phone | Unavailable | + + + Support + + +---------+ + | Name | Relationship | Address | Phone | + + +---------+ + | Mary Medellin | ECON | Unknown | | + + +---------+ + Care Team Providers + +------+ + | Care Director Of Finance Name | Role | Phone | + [...] Medical Records | | 2018 | | [facility] [address] [facility] | | Review (CAR GEN | | | | [address] | | Records Checklist) | | | | Mailcode: [id number] | | | | | | [facility] | | | | | | [address] [place], | | | | | | [place] [address] | | | | | | [phone] | | | +--------+ + + + [...] needed if being seen for abnormal ECG Hay 04/2017 Yes, in Care EW and attached below N/A Urgent fax request sent for tracings Last Echo images and report TTE Hay 04/2017 Yes, in Care EW and attached below Yes, in impax Urgent fax request sent to push im ages [phone] Last Stress Test images and report Exercise Stress Test No Last Cardiac Catheterization images and report Hay 04/2017 yes, in Care EW and attached below Yes, in impax Urgent fax request sent to push i mages [phone] Last Holter or Event monitor report only No N/A Labs (BMP, Lipids, TSH, Hemoglobin A1C in last 6 months) Hay Fergus's Yes, in Care EW N/A Last Device [...]
--- OUTSIDE RECORDS SUMMARY | ~2018-12-18 | XMS | Encounter Summary ---
Demographics + + + | Address | [address] | | | [place] [address] | + + + | Home Phone [...] Author | [facility] | + + + | Organization | [facility] [employer] [facility] | + + + | Address | Unknown | + + + | Phone | Unavailable | + + + Support + + +---------+ + | Name | Relationship | Address | Phone | + + +---------+ + | Mary Medellin | ECON | Unknown | | + + +---------+ + Care Team Providers + +------+ + | Care Pharmacy Informaticist Name | Role | Phone | + [...] | | | | | Hepatic | Caesy, | Hepatology | | | | | [...] | | | | | unspecified | [address] | and Healing, | | | | | whether | Phone: | [address] | | | | | ascites | [phone] | [place], [place] | | | | | present | Fax: | [address] | | | | | (HCC) | [phone] | Phone: | | | | | Procedures | | [phone] | | | | | CONSULT TO | | Fax: | | | | | HEPATOLOGY | | [phone] | +--------+--------+ + + + + Consultation [...] | of breath | MD Elle | [address] | | | | | Procedures | [address] | [address] | | | | | CONSULT TO | Renato | [place], [place] | | | | | CARDIOLOGY | [place] | [address] | | | | | | [place], [place] | Phone: | | | | | | [address] | [phone] | | | | | | Phone: | Fax: | | | | | | [phone] | [phone] | | | | | | Fax: | | | | | | | [phone] | | +--------+--------+ + + + + [...] | | | | | ECHOCARDIOGR | [place], [place] | | | | | | AM, ADULT | [address] | | | | | | | Phone: | | | | | | | [phone] | | | | | | | Fax: | | | | | | | [phone] | | +--------+--------+ + + + + Reason for Visit + + + | Reason | Comments | + + + | New patient | | | consultation | | + + + Consultation (Urgent) +--------+--------+ + + + + | Status | Reason | Specialty | Diagnoses / | Referred By | Referred To | | | | | Procedures | Contact | Contact | +--------+--------+ + + + + | Closed | | Surgery | Diagnoses | Tra Emerg | Gs Hpb [facility]2 | | | | | Unspecified | Gen Surg Ppv | [address] | | | | | cirrhosis | [address] | | | | | of liver | [address] | Mailcode: | | | | | Perforation | [place] | [facility] for | | | | | of | Mailcode: | Health and | | | | | gallbladder | [address] | Healing, | | | | | | Phsyicians | [address] | | | | | | [address] | [place], [place] | | | | | | [place], | [address] | | | | | | [place] | Phone: | | | | | | [address] | [phone] | | | | | | Phone: | Fax: | | | | | | [phone] | [phone] | | | | | | Fax: | | | | | | | [phone] | | +--------+--------+ + + + + Encounter Details +--------+---------+ + + + | Date | Type | Department | Care Team | Description | +--------+---------+ + + + | 10/13/ | Office | Digestive Health | Clinton Morillo, | Shortness of breath | | 2018 | Visit | [facility] [address] | [address] | (Primary Dx); | | | | [address] | [address] | Hepatic cirrhosis, | | | | Mailcode: Center | [place], [place] | unspecified hepatic | | | | [facility] and | [address] | cirrhosis type, | | | | Healing, [address] | [phone] | unspecified whether | | | | [place], [place] | | ascites present | | | | [address] | | ([facility]) | | | | [phone] | | | +--------+---------+ + + + [...] Pressure | 153/81 | 10/13/2017 10:01 AM | | | | | PDT | | + + + + + | Pulse | 66 | 10/13/2017 10:01 AM | | | | | PDT | | + + + + + | Temperature | 36.3 C (97.3 F) | 10/13/2017 10:01 AM | | | | | PDT | | + + + + + | Respiratory Rate | 16 | 10/13/2017 10:01 AM | | | | | PDT | | + + + + + | Oxygen Saturation | - | - | | + + + + + | Inhaled Oxygen | - | - | | | Concentration | | | | + + + + + | Weight | 92.3 kg (203 lb 6.4 | 10/13/2017 10:01 AM | | | | oz) | PDT | | + + + + + | Height | 179.1 cm (5' 10.5") | 10/13/2017 10:01 AM | | | | | PDT | | + + + + + | Body Mass Index | 28.77 | 10/13/2017 10:01 AM | | | | | PDT [...] documented as of this encounter Progress Notes Clinton Morillo MD - 10/13/2017 10:10 AM PDT I saw the patient and reviewed and verified all information documented by the medical stud ent and resident, and made modifications to such information, when appropriate Clinton Morillo M.D. [facility] [place] ([facility]) Professor and Vice-Ase Certified Technician of Surgery The [facility] for Pancreatic Disease Research The [facility] [place] Cell phone: [phone] / [facility] provider's line [phone]. email: [email or web address] Elle Rutledge MD - 10/13/2017 10:10 AM PDT BLUE SURGERY NEW PATIENT CLINIC NOTE Author: [...] to the hospital and was transferred to [facility] for further care. During this hospitalization he was septic with some acute hepatic in jury and required a cholecystostomy tube to control his sepsis. He recovered and has been at home with the cholecystostomy tube. Due to his severe systemic disease and cirrhosis, he w as referred back to [facility] for surgery. He reports getting around [...] evaluation and optimization of heart. We will kimo hernándeze him obtain echo near his home and bring report for cardiology consult. Will also refer kimo im to see hepatology to see if any medical optimization of liver failure preoperatively can be done. After he has been medically optimized he will need ERCP for evaluation and possibl e stenting of CBD stricture and then we will see the patient to discuss proceeding with lap aroscopic cholecystectomy. This plan was discussed with Dr Morillo. Elle Peña MD MIS Fellow documented in this en counter Plan of [...] | | + +------+--------+ + + | INTRACARDIAC | ECG | Routin | Shortness of | Ordered: 10/13/2017 | | ECHOCARDIOGRAM, | | e | breath | | | ADULT | | | | | + +------+--------+ + + documented as of this encounter Visit Diagnoses + + | Diagnosis | + + | Shortness of breath - Primary | + + | Hepatic cirrhosis, unspecified hepatic cirrhosis type, unspecified whether ascites | | present (HCC) | + + documented in this encounter
--- OUTSIDE RECORDS SUMMARY | ~2018-12-18 | XMS | Encounter Summary ---
Demographics + + + | Address | [address] | | | [place] [address] | + + + | Home Phone | | + + + | Preferred Language | Unknown | + + + | Marital Status | Single | + + + | Adventist Affiliation | NRP | + + + | Race | or | + + + | Ethnic Group | Not or | + + + Author + + + | Author | [facility] | + + + | Organization | [facility] | + + + | Address | Unknown | + + + | Phone | Unavailable | + + + Support + + +---------+ + | Name | Relationship | Address | Phone | + + +---------+ + | Mary Medellin | ECON | Unknown | | + + +---------+ + Care Team Providers + +------+ + | Care Rn Lactation Name | Role | Phone | + [...] + + | 04/28/ | Emergency | [facility] Emergency | | | | 2017 | | Department [address] | | | | | [address] | | | | | | [facility] | | | | | | [place], [place] | | | | | | [address] | | | | | | [phone] | | | +--------+ + + + [...] [facility] Staff Contacted by Dr. Waqas Quiroga, [facility] Franco Rodrigojaclyn re: this 61 yo with Hep C cirrhosis, DM wh o presented first to [place] ED with chest and abdominal pain. Per report, RUQ US was c/f acute cholecystitis so transferred to [facility]. There, noted to have elevated troponin 0 .26 (ULN 0.04). Cardiac cath performed with "severe multivessel disease" Had repeat RUQ US (no results available) as well as MRCP at [facility] without e/o acute ch olecystitis but ?stone in distal CBD. LFTs at [facility] AST 31, ALT 16, Alk phos 58, [...] to have MRCP images pushed over from [facility] to review If there is e/o retained [...]
--- OUTSIDE RECORDS SUMMARY | ~2018-12-18 | XMS | Encounter Summary ---
Demographics + + + | Address | [address] | | | [place] [address] | + + + | Home Phone [...] Count Includes [facility] fluid Operations [facility] | + + + | Organization | Count Includes [facility] [employer] [facility] | + + + | Address | Unknown | + + + | Phone | Unavailable | + + + Support + + +---------+ + | Name | Relationship | Address | Phone | + + +---------+ + | Mary Medellin | ECON | Unknown | | + + +---------+ + Care Team Providers + +------+ + | Care Repairer And Checker Name | Role | Phone | + [...] | | | | Mailcode: Center | [place], [place] | | | | | [facility] and | [address] | | | | | [facility] 2 | [phone] | | | | | [place], [place] | | | | | | [address] | | | | | | [phone] | | | +--------+ + + + [...]
--- OUTSIDE RECORDS SUMMARY | ~2018-12-18 | XMS | Encounter Summary ---
Demographics + + + | Address | [address] | | | [place] [address] | + + + | Home Phone [...] + | Author | [facility] [employer] [facility] | + + + | Organization | [facility] [employer] [facility] | + + + | Address | Unknown | + + + | Phone | Unavailable | + + + Support + + +---------+ + | Name | Relationship | Address | Phone | + + +---------+ + | Mary Medellin | ECON | Unknown | | + + +---------+ + Care Team Providers + +------+ + | Care Human Factors Ergonomist Name | Role | Phone | + [...] | | | | | | [place] [address] | | | +--------+--------+ + + + [...]
--- OUTSIDE RECORDS SUMMARY | ~2018-12-18 | XMS | Encounter Summary ---
Demographics + + + | Address | [address] | | | [place] [address] | + + + | Home Phone | | + + + | Preferred Language | Unknown | + + + | Marital Status | Single | + + + | Buddhism Affiliation | NRP | + + + | Race | or | + + + | Ethnic Group | Not or | + + + Author + + + | Author | [facility] [employer] [facility] | + + + | Organization | [facility] [employer] [facility] | + + [...] Providers + +------+ + | Care Director Biologics Name | Role | Phone | + [...] Medical Records | | 2018 | | [place] [address] [address] | [place] [address] [facility] | Review (04/23/17 HCV | | | | [address] | [address] | viral load) | | | | Mailcode: OC8D | [place], [place] | | | | | [facility] | [address] | | | | | and Maxine, | [phone] | | | | | [place] [address] | | | | | | [place], [place] | | | | | | [address] | | | | | | [phone] | | | +--------+ + + + [...]
--- OUTSIDE RECORDS SUMMARY | ~2018-12-18 | XMS | Encounter Summary ---
Demographics + + + | Address | [address] | | | [place] [address] | + + + | Home Phone [...] + + | Author | [facility] | + + + | Organization | [facility] [employer] [facility] | + + + | Address | Unknown | + + + | Phone | Unavailable | + + + Support + + +---------+ + | Name | Relationship | Address | Phone | + + +---------+ + | Mary Medellin | ECON | Unknown | | + + +---------+ + Care Team Providers + +------+ + | Care Heel Seat Fitter Name | Role | Phone | [...] | | | | Mailcode: Center | [place], [place] | | | | | [facility] and | [address] | | | | | [place] [address] | [phone] | | | | | [place], [place] | | | | | | [address] | | | | | | [phone] | | | +--------+ + + + [...]
--- OUTSIDE RECORDS SUMMARY | ~2018-12-18 | XMS | Encounter Summary ---
Demographics + + + | Address | [address] | | | [place] [address] | + + + | Home Phone [...] + | Author | [facility] [facility] | + + + | Organization | [facility] [employer] [facility] | + + + | Address | Unknown | + + + | Phone | Unavailable | + + + Support + + +---------+ + | Name | Relationship | Address | Phone | + + +---------+ + | Mary Medellin | ECON | Unknown | | + + +---------+ + Care Team Providers + +------+ + | Care Clinical Editor Name | Role | Phone | + [...] Test Results | | 2017 | | [place] [address] | PA-C [address] | | | | | [address] | [address] | | | | | Mailcode: OC8D | [place], [place] | | | | | [facility] | [address] | | | | | and Healing, | [phone] | | | | | [address] | | | | | | [place], [place] | | | | | | [address] | | | | | | [phone] | | | +--------+ + + + [...]
--- OUTSIDE RECORDS SUMMARY | ~2018-12-18 | XMS | Encounter Summary ---
Demographics + + + | Address | [address] | | | [place] [address] | + + + | Home Phone [...] Author | [facility] | + + + | Organization | [facility] [employer] [facility] | + + + | Address | Unknown | + + + | Phone | Unavailable | + + + Support + + +---------+ + | Name | Relationship | Address | Phone | + + +---------+ + | Mary Medellin | ECON | Unknown | | + + +---------+ + Care Team Providers + +------+ + | Care Factory Representative Name | Role | Phone | + +------+ + | Shakir Monzon MD | PCP | | + +------+ + Encounter Details +--------+ + + + + | Date | Type | Department | Care Team | Description | +--------+ + + + + | 11/01/ | Abstract | Cardiology General | Sharon Sanderson | | | 2018 | | at [facility] [address] | [address] | | | | | [address] Mailcode: | [address] [place], | | | | | [facility] | [place] [address] | | | | | Health and Healing, | [phone] | | | | | [facility] | | | | | | Floor [place], [place] | | | | | | [address] | | | | | | [phone] | | | +--------+ + + + [...]
--- OUTSIDE RECORDS SUMMARY | ~2018-12-18 | XMS | Encounter Summary ---
Demographics + + + | Address | [address] | | | [place] [address] | + + + | Home Phone [...] + + | Author | [facility] | + + + | Organization | [facility] | + + + | Address | Unknown | + + + | Phone | Unavailable | + + + Support + + +---------+ + | Name | Relationship | Address | Phone | + + +---------+ + | Mary Medellin | ECON | Unknown | | + + +---------+ + Care Team Providers + +------+ + | Care Silica Spray Mixer Name | Role | Phone | + +------+ + | Shakir Monzon MD | PCP | | + +------+ + Encounter Details +--------+------+ + + + | Date | Type | Department | Care Team | Description | +--------+------+ + + + | 10/13/ | Lab | Laboratory at [facility] | | Cirrhosis of liver | | 2018 | | [address] | | without ascites, | | | | [place], [place] | | unspecified hepatic | | | | [address] | | cirrhosis type (HCC) | | | | [phone] | | | +--------+------+ + + + [...] encounter Results CBC (HEMOGRAM) ONLY (10/13/2017 9:49 AM PDT) + + + + + + | Component | Value | Ref Range | Performed | Pathologist | | | | | At | Signature | + + + + + + | WHITE CELL | 6.70 | 3.50 - 10.80 | [facility] | | | COUNT | | K/cu mm | LABORATORY | | | | | | SERVICES, | | | | | | CORE | | + + + + + + | RED CELL | 4.40 (L) | 4.50 - 6.00 | [facility] | | | COUNT | | M/cu mm | LABORATORY | | | | | | SERVICES, | | | | | | CORE | | + + + + + + | HEMOGLOBIN | 14.0 | 13.5 - 17.5 | [facility] | [...] | 34.6 | 32.0 - 36.0 | [facility] | [...] + + + + | PLATELET | 78 (L)Comment: | 150 - 400 K/cu | [...] [facility] | [address] | [place] [address] | | | SERVICES, CORE | [address] | | | + + + + + ALPHA-FETOPROTEIN TUMOR MARKER, SERUM (10/13/2017 9:49 AM [...] | + + + + + | [facility] | [address] | [place] [address] | | | SERVICES, CORE | [address] [...] | + + + + + | [facility] | [address] [facility] [address] [address] | [place] [address] | | | SERVICES, CORE | [address] [...] | | | LABORATORY | | | NIUEAN | | | SERVICES, | | | [...] AST CMNT | No Hemo | | [facility] | | | | | | LABORATORY [...] | + + + + + | [facility] | [address] | [place] [address] | | | SERVICES, CORE | [address] | | | + + + + + documented in this encounter Visit Diagnoses + + | Diagnosis | + + | Cirrhosis of liver without ascites, unspecified hepatic cirrhosis type (HCC) | + + documented in this encounter"
--- OUTSIDE RECORDS SUMMARY | ~2018-12-18 | XMS | Encounter Summary ---
Demographics + + + | Address | [address] | | | [place] [address] | + + + | Home Phone [...] + + + | Author | [facility] [employer] [facility] | + + + | Organization | [facility] [employer] [facility] | + + + | Address | Unknown | + + + | Phone | Unavailable | + + + Support + + +---------+ + | Name | Relationship | Address | Phone | + + +---------+ + | Mary Medeliln | ECON | Unknown | | + + +---------+ + Care Team Providers + +------+ + | Care Rectification Printer Name | Role | Phone | + [...] | Cholangitis | MD Moustapha | [address] | | | | | Procedures | [address] | [address] | | | | | MRI | [address] | [address] | | | | | [address] | Rd | Mailcode: | | | | | PHY [address] | [place], [place] | [address] | | | | | CONTRAST (+ | [address] | [place] | | | | | LIVER MASS) | Phone: | Research | | | | | | [phone] | [place] | | | | | | Fax: | [place], [place] | | | | | | [phone] | [address] | | | | | | | Phone: | | | | | | | [phone] | | | | | | | Fax: | | | | | | | [phone] | +--------+--------+ + + + + Reason [...] | Cholangitis | MD Moustapha | [address] | | | | | Procedures | [address] | [address] | | | | | MRI | [address] | [address] | | | | | [address] | Rd | Mailcode: | | | | | PHY [address] | [place], [place] | [address] | | | | | CONTRAST (+ | [address] | [place] | | | | | LIVER MASS) | Phone: | Research | | | | | | [phone] | Center | | | | | | Fax: | [place], [place] | | | | | | [phone] | [address] | | | | | | | Phone: | | | | | | | [phone] | | | | | | | Fax: | | | | | | | [phone] | +--------+--------+ + + + + Encounter Details +--------+ + + + + | Date | Type | Department | Care Team | Description | +--------+ + + + + | 09/24/ | Hospital | Diagnostic Imaging | Moustapha Schafer MD | | | 2018 | Encounter | Services at [facility] | [address] | | | | | [address] | [place], | | | | | [place] Mailcode: | [place] [address] | | | | | [address] [place] | [phone] | | | | | [facility] | | | | | | [place], [place] | | | | | | [address] | | | | | | [phone] | | | +--------+ + + + [...] Blood Pressure | - | - | | + + + + + | Pulse | - | - | | + [...] kg (198 lb) | 09/24/2017 2:27 PM | | | | | PDT | | + + + + + | Height | - | - | | + + + + + | Body Mass Index | 28.01 | 08/13/2017 1:56 PM | | | [...] +---------+--------+ + | insulin aspart | Inject 30 [...] | + + + +---------+--------+ + | LANTUS SOLOSTAR | Inject 40 [...] + + + +---------+--------+ + | losartan 25 mg | Take [...] + +---------+--------+ + | rosuvastatin | Take 10 mg [...] + documented in this encounter Results MRI CHOLANGIOGRAPHY WWO CONTRAST (+ LIVER MASS) (09/24/2017 3:01 PM PDT) + + | Specimen | [...] | | COMPARISON: 08/13/2017 CT, 08/05/2017 MR TECHNIQUE: Multiplanar | | | MRI of the abdomen was performed without and with gadolinium based | | | intravenous contrast. FINDINGS: LIVER: Nodular cirrhotic liver | | | with sequelae of portal hypertension, including a large pararenal | | | shunt. BILIARY: The gallbladder is decompressed around a | | | cholecystostomy tube, with residual gallstones. The previously noted | | | fluid collections adjacent to the gallbladder have resolved. In the | | | region of the previously noted hilar abscess, there is a persistent | | | inflammatory mass measuring approximately 3.2 x 3.4 cm (1003/302), as | | | well as two residual hilar fluid collections measuring approximately | | | 2.1 x 1.3 cm (701/25) and 1.3 x 0.7 cm (701/23). These cause | | | persistent partial encasement of the upper common bile duct and | | | resulting biliary stricture, as previous noted. There is moderate | | | intrahepatic ductal dilatation upstream from this area, which is | | | unchanged compared to 08/05/2017 MRCP. No abnormal ductal enhancement. | | | No evidence of choledocholithiasis. There is variant biliary anatomy | | | with low insertion of the common bile duct. No evidence of Mirizzi | | | syndrome. PANCREAS: Unremarkable. SPLEEN: Moderately enlarged. | | | Splenorenal shunt. ADRENALS: Unremarkable. KIDNEYS: Unremarkable. | | | GI TRACT: Visualized portions are unremarkable. PERITONEUM: No free | | | air or fluid. LYMPH NODES: No lymphadenopathy. VESSELS: | | | Unremarkable. BONES AND SOFT TISSUES: Unremarkable. | | | IMPRESSION: 1. Persistent inflammatory mass and two small residual | | | hilar abscesses at the site of the previously seen large hilar | | | abscess, with persistent upper common bile duct stricture and upstream | | | intrahepatic biliary duct dilatation. 2. Decompressed gallbladder | | | and resolved fluid collections along the fundus and body status post | | | cholecystostomy. I have personally reviewed the images and, if | | | necessary, edited the report. I agree with the report as now | | | presented. Final signature: Mookie Bartlett MD 09/27/2017 9:09 | | | AM Preliminary: Petar Albright MD 09/24/2017 5:31 PM Dictation | | | initiated: Petar Albright MD 09/24/2017 3:13 PM | | + + + + + | Procedure Note | + + | Service Account, [employer] In Interface - 09/27/2017 9:10 [...] +---------+ + + CREATININE, POC (09/24/2017 1:44 PM PDT) + +-------+ + + + | Component | Value | Ref Range | Performed | Pathologist | | | | | At | Signature | + +-------+ + + + | CREATININE, | 0.7 | 0.7 - 1.3 mg/dL | [facility] - | | | POC | | | [facility] | | | | | | JUDE [facility] | | | | | | OF CARE | | | | | | TESTS | | + +-------+ + + + + + | Specimen | + + | Blood - Blood | | (substance) | + + + + + + + | Performing | Address | City/State/Zipcode | Phone Number | | Organization | | | | + + + + + | [facility] | [address] | [place], [place] | | | [place] [facility] CARE | [facility] | [address] | | | TESTS | | | | + + + + + documented in this encounter Visit Diagnoses + + | Diagnosis | + + | Cholangitis | + + documented in this encounter Administered Medications + +---------+ +-------+------+------+ | Medication Order | MAR | Action | Dose | Rate | Site | | | Action | Date | | | | + +---------+ +-------+------+------+ | gadoterate meglumine (DOTAREM) | IV Push | 09/25/19 | 18 mL | | | | 0.5 mmol/mL (376.9 mg/mL) | | 18 3:00 | | | | | injection 18 mL 18 mL (rounded | | PM PDT | | | | | from 17.96 mL = 0.2 mL/kg | | | | | | | 89.8 kg), intravenous, ONCE, 1 | | | | | | | dose, 09/24/17 at 1500 | | | | | | + +---------+ +-------+------+------+ +---+---+ | | | +---+---+ documented in this encounter"
--- OUTSIDE RECORDS SUMMARY | ~2018-12-18 | XMS | Encounter Summary ---
Demographics + + + | Address | [address] | | | [place] [address] | + + + | Home Phone | | + + + | Preferred Language | Unknown | + + + | Marital Status | Single | + + + | Sikhism Affiliation | NRP | + + + | Race | or | + + + | Ethnic Group | Not or | + + + Author + + + | Author | [facility] [employer] [facility] | + + + | Organization | [facility] [employer] [facility] | + [...] Providers + +------+ + | Care Supervisor Of Instruction Name | Role | Phone | + +------+ + | Shakir Monzon MD | PCP | | + +------+ + Encounter Details +--------+ + + + + | Date | Type | Department | Care Team | Description | +--------+ + + + + | 12/01/ | Telephone | Digestive Health | Bessy Solano, | | | 2016 | | [place] [address] [address] | PA-C [address] | | | | | [address] | [address] | | | | | Mailcode: OC8D | [place], [place] | | | | | [place] for [facility] | [address] | | | | | and Maxine, | [phone] | | | | | Building [address] | | | | | | [place], [place] | | | | | | [address] | | | | | | [phone] | | | +--------+ + + + [...]
--- OUTSIDE RECORDS SUMMARY | ~2018-12-18 | XMS | Encounter Summary ---
Demographics + + + | Address | [address] | | | [place] [address] | + + + | Home Phone [...] + | Author | [facility] | + + + | Organization | [facility] [employer] [facility] | + [...] Team Providers + +------+ + | Care Financial Professional Name | Role | Phone | + [...] Request | | 2018 | | at [facility] [address] | [address] | (DUR) | | | | Rol[address] Rivas Mailcode: | [address], | | | | | [address] | [place] [address] | | | | | Health and Healing, | [phone] | | | | | [facility] | | | | | | Floor [place], [place] | | | | | | [address] | | | | | | [phone] | | | +--------+--------+ + + + [...]
--- OUTSIDE RECORDS SUMMARY | ~2018-12-18 | XMS | Encounter Summary ---
Demographics + + + | Address | [address] | | | [place] [address] | + + + | Home Phone [...] Author + + + | Author | [facility] | + + + | Organization | [facility] [employer] [facility] | + [...] Team Providers + +------+ + | Care Debone Processing Supervisor Name | Role | Phone | [...] (Labs | | 2017 | on | [place] at [facility] [address] | NVMaria Elena [address] | 01/28/17) | | | | [address] | [facility] | | | | | Mailcode: OC8D | [place], [place] | | | | | [facility] | [address] | | | | | and Maxine, | [phone] | | | | | Building [address] | | | | | | [place], [place] | | | | | | [address] | | | | | | [phone] | | | +--------+ + + + [...] + + | PAML | | | [phone] | + +---------+ + + INR (01/28/2017) [...] + + | PAML | | | [phone] | + +---------+ + + COMPLETE METABOLIC [...] + + | PAML | | | [phone] | + +---------+ + + documented in this encounter Visit Diagnoses Not on filedocumented in this encounter"
--- OUTSIDE RECORDS SUMMARY | ~2018-12-18 | XMS | Encounter Summary ---
Demographics + + + | Address | [address] | | | [place] [address] | + + + | Home Phone | | + + + | Preferred Language | Unknown | + + + | Marital Status | Single | + + + | Denominational Affiliation | NRP | + + + | Race | or | + + + | Ethnic Group | Not or | + + + Author + + + | Author | [facility] | + + + | Organization | [facility] [employer] [facility] [...] Team Providers + +------+ + | Care Software Writer Name | Role | Phone | [...] | | | | | unspecified | [address] | and Healing, | | | | | whether | Phone: | Building [address] | | | | | ascites | [phone] | [place], [place] | | | | | present | Fax: | [address] | | | | | (HCC) | [phone] | Phone: | | | | | Procedures | | [phone] | | | | | CONSULT TO | | Fax: | | | | | HEPATOLOGY | | [phone] | +--------+--------+ + + + + Consultation [...] of breath | MD Elle | PAShannan[facility] [address] | | | | | Procedures | [address] | [place] | | | | | CONSULT TO | Renato | [place], [place] | | | | | CARDIOLOGY | Mercedes Langford | [address] | | | | | | [place], [place] | Phone: | | | | | | [address] | [phone] | | | | | | Phone: | Fax: | | | | | | [phone] | [phone] | | | | | | Fax: | | | | | | | [phone] | | +--------+--------+ + + + + [...] | | | | | ECHOCARDIOGR | [place], [place] | | | | | | AM, ADULT | [address] | | | | | | | Phone: | | | | | | | [phone] | | | | | | | Fax: | | | | | | | [phone] | | +--------+--------+ + + + + [...] | | | | [address] | [place], [place] | | | | | | [place], | [address] | | | | | | [place] | Phone: | | | | | | [address] | [phone] | | | | | | Phone: | Fax: | | | | | | [phone] | [phone] | | | | | | Fax: | | | | | | | [phone] | | +--------+--------+ + + + + Encounter Details +--------+---------+ + + + | Date | Type | Department | Care Team | Description | +--------+---------+ + + + | 10/13/ | Office | Digestive Health | Clinton Morillo, | Shortness of breath | | 2018 | Visit | [place] at [facility] [address] | [address] | (Primary Dx); | | | | [address] | [address] | Hepatic cirrhosis, | | | | Mailcode: Center | [place], [place] | unspecified hepatic | | | | [facility] and | [address] | cirrhosis type, | | | | Healing, Building [address] | [phone] | unspecified whether | | | | [place], [place] | | ascites present | | | | [address] | | ([facility]) | | | | [phone] | | | +--------+---------+ + + + [...] such information, when appropriate [place] Morillo M.D. [facility] [place] ([facility]) Professor and Vice-Object Oriented Developer of Surgery The Mirza Gamboa Chair for Pancreatic Disease Research [facility] [place] Cell phone: [phone] / [facility] provider's line [phone]. email: [email or web address] Elle Rutledge MD - 10/13/2017 10:10 AM [...] to the hospital and was transferred to [facility] for further care. During this hospitalization he was septic with some acute hepatic in jury and required a cholecystostomy tube to control his sepsis. He recovered and has been at home with the cholecystostomy tube. Due to his severe systemic disease and cirrhosis, he w as referred back to [facility] for surgery. He reports getting around [...]
--- OUTSIDE RECORDS SUMMARY | ~2018-12-18 | XMS | Encounter Summary ---
Demographics + + + | Address | [address] | | | [place] [address] | + + + | Home Phone [...] | [facility] | + + + | Organization | [facility] [employer] [facility] [...] Team Providers + +------+ + | Care Pipe Organ Installer Name | Role | Phone | + +------+ + | Shakir Monzon MD | PCP | | + +------+ + Encounter Details +--------+ + + + + | Date | Type | Department | Care Team | Description | +--------+ + + + + | 05/14/ | Abstract | Cardiology General | Unknown . | | | 2018 | | at [facility] [address] | | | | | | [place] Rivas Mailcode: | | | | | | CH9A [facility] | | | | | | Health and Healing, | | | | | | | | | | | | Floor [place], [place] | | | | | | [address] | | | | | | [phone] | | | +--------+ + + + [...]
--- OUTSIDE RECORDS SUMMARY | ~2018-12-18 | XMS | Encounter Summary ---
Demographics + + + | Address | [address] | | | [place] [address] | + + + | Home Phone [...] | [facility] [employer] [facility] | + + + | Organization | [facility] [employer] [facility] | + + + | Address | Unknown | + + + | Phone | Unavailable | + + + Support + + +---------+ + | Name | Relationship | Address | Phone | + + +---------+ + | Mary Medellin | ECON | Unknown | | + + +---------+ + Care Team Providers + +------+ + | Care Scientific Informatics Analyst Name | Role | Phone | [...] | | | | Mailcode: Center | [place], [place] | | | | | [facility] and | [address] | | | | | [facility], [facility] 2 | [phone] | | | | | [place], [place] | | | | | | [address] | | | | | | [phone] | | | +--------+ + + + [...]
--- OUTSIDE RECORDS SUMMARY | ~2018-12-18 | XMS | Encounter Summary ---
Demographics + + + | Address | [address] | | | [place] [address] | + + + | Home Phone | | + + + | Preferred Language | Unknown | + + + | Marital Status | Single | + + + | Episcopal Affiliation | NRP | + + + | Race | or | + + + | Ethnic Group | Not or | + + + Author + + + | Author | [facility] [employer] [facility] | + + + | Organization | [facility] [employer] [facility] | + [...] Team Providers + +------+ + | Care Compliance Tester Name | Role | Phone | + +------+ + | Shakir Monzon MD | PCP | | + +------+ + Encounter Details +--------+ + + + + | Date | Type | Department | Care Team | Description | +--------+ + + + + | 10/05/ | Abstract | Digestive Health | Clinic, Hepatology | | | 2016 | | [place] [address] [address] | | | | | | [address] | | | | | | Mailcode: OC8D | | | | | | [place] for [facility] | | | | | | and Healing, | | | | | | Building [address] | | | | | | [place], [place] | | | | | | [address] | | | | | | [phone] | | | +--------+ + + + [...]
--- OUTSIDE RECORDS SUMMARY | ~2018-12-18 | XMS | Encounter Summary ---
Demographics + + + | Address | [address] | | | [place] [address] | + + + | Home Phone | | + + + | Preferred Language | Unknown | + + + | Marital Status | Single | + + + | Worship Affiliation | NRP | + + + | Race | or | + + + | Ethnic Group | Not or | + + + Author + + + | Author | [facility] | + + + | Organization | [facility] [employer] [facility] | + + + | Address | Unknown | + + + | Phone | Unavailable | + + + Support + + +---------+ + | Name | Relationship | Address | Phone | + + +---------+ + | Mary Medellin | ECON | Unknown | | + + +---------+ + Care Team Providers + +------+ + | Care Horologist Apprentice Name | Role | Phone | [...] | | | | [address] | [facility] | | | | | Mailcode: Center | [place], [place] | | | | | [facility] and | [address] | | | | | [facility], [facility] 2 | [phone] | | | | | [place], [place] | | | | | | [address] | | | | | | [phone] | | | +--------+ + + + [...]
--- OUTSIDE RECORDS SUMMARY | ~2018-12-18 | XMS | Encounter Summary ---
Demographics + + + | Address | [address] | | | [place] [address] | + + + | Home Phone [...] Author + + + | Author | [facility] [facility] | + + + | Organization | [facility] [employer] [facility] | + + + | Address | Unknown | + + + | Phone | Unavailable | + + + Support + + +---------+ + | Name | Relationship | Address | Phone | + + +---------+ + | Mary Medellin | ECON | Unknown | | + + +---------+ + Care Team Providers + +------+ + | Care Soda Jerker Name | Role | Phone | + [...] CENTER | | | | | | [address] | | | | | | Mercedes Langford Mailcode: | | | | | | [address] [place] | | | | | | [facility] | | | | | | [place], [place] | | | | | | [address] | | | | | | [phone] | | | +--------+ + + + [...]
--- OUTSIDE RECORDS SUMMARY | ~2018-12-18 | XMS | Encounter Summary ---
Demographics + + + | Address | [address] | | | [place] [address] | + + + | Home Phone [...] Author | [facility] [employer] [facility] | + + + | Organization | [facility] [employer] [facility] | + + + | Address | Unknown | + + + | Phone | Unavailable | + + + Support + + +---------+ + | Name | Relationship | Address | Phone | + + +---------+ + | Mary Medellin | ECON | Unknown | | + + +---------+ + Care Team Providers + +------+ + | Care Learning And Development Coordinator Name | Role | Phone | + +------+ + | Shakir Monzon MD | PCP | | + +------+ + Encounter Details +--------+ + + + + | Date | Type | Department | Care Team | Description | +--------+ + + + + | 06/10/ | Document-Sc | Health Information | Unknown . | | | 2018 | anned | Services [address] | | | | | | [address] | | | | | | Mailcode: OP17A | | | | | | [facility] | | | | | | [place], [place] | | | | | | [address] | | | | | | [phone] | | | +--------+ + + + [...] + +--------+ + + + | OUTSIDE CARDIOLOGY | | 06/10/2017 | | Results for this | | | | 12:00 AM | | procedure are in the | | | | PDT | | results section. | + +--------+ + + + documented in this encounter Results OUTSIDE CARDIOLOGY (06/10/2017 12:00 AM PDT) + + + | Narrative | Performed At | + + + | | | + + + documented in this encounter Visit Diagnoses Not on filedocumented in this encounter"
--- OUTSIDE RECORDS SUMMARY | ~2018-12-18 | XMS | Encounter Summary ---
Demographics + + + | Address | [address] | | | [place] [address] | + + + | Home Phone [...] + + | Author | [facility] [employer] [facility] | + + + | Organization | [facility] [employer] [facility] | + + + | Address | Unknown | + + + | Phone | Unavailable | + + + Support + + +---------+ + | Name | Relationship | Address | Phone | + + +---------+ + | Mary Medellin | ECON | Unknown | | + + +---------+ + Care Team Providers + +------+ + | Care Reading Teacher Name | Role | Phone | [...] | | | | Mailcode: Center | [place], [place] | | | | | [facility] and | [address] | | | | | [facility] 2 | [phone] | | | | | [place], [place] | | | | | | [address] | | | | | | [phone] | | | +--------+ + + + [...]
--- OUTSIDE RECORDS SUMMARY | ~2018-12-18 | XMS | Encounter Summary ---
Demographics + + + | Address | [address] | | | [place] [address] | + + + | Home Phone | | + + + | Preferred Language | Unknown | + + + | Marital Status | Single | + + + | Jew Affiliation | NRP | + + + | Race | or | + + + | Ethnic Group | Not or | + + + Author + + + | Author | [facility] [employer] [facility] | + + + | Organization | [facility] [employer] [facility] | + + + | Address | Unknown | + + + | Phone | Unavailable | + + + Support + + +---------+ + | Name | Relationship | Address | Phone | + + +---------+ + | Mary Medellin | ECON | Unknown | | + + +---------+ + Care Team Providers + +------+ + | Care Spring Crater Name | Role | Phone | + +------+ + | Shakir Monzon MD | PCP | | + +------+ + Reason for Referral Rehabilitation Therapy (Routine) + +--------+ + + + + [...] | | | | artery | [address] | | | | | | disease with | [address] | | | | | | angina | Rd | | | | | | pectoris, | [place], [place] | | | | | | unspecified | [address] | | | | | | vessel or | Phone: | | | | | | lesion type, | [phone] | | | | | | unspecified | Fax: | | | | | | whether | [phone] | | | | | | [place] | | | | | | | transplanted | | | | | | | heart (HCC) | | | | | | | Coronary | | | | | | | artery | | | | | | | calcificatio | | | | | | | n Anterior | | | | | | | ST segment | | | | | | | depression | | | | | | | Inferior | | | | | | | myocardial | | | | | | | infarction | | | | | | | (HCC) | | | | | | | Procedures | | | | | | | CONSULT TO | | | | | | | CARDIAC | | | | | | | REHAB - [facility] | | | + +--------+ + + + + Encounter Details +--------+ + + + + | Date | Type | Department | Care Team | Description | +--------+ + + + + | 03/01/ | Towel Weaver | Digestive Health | Clinton Morillo, | Coronary artery | | 2019 | | Center at [facility] [address] | [address]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[address] | [address] | pectoris, | | | | Mailcode: Center | [place], [place] | unspecified vessel | | | | for Health and | [address] | or lesion type, | | | | Healing, Building [address] | [phone] | unspecified whether | | | | [place], [place] | | [place] | | | | [address] | | transplanted heart | | | | [phone] | | ([facility]) (Primary Dx); | | | | | [...] Diagnosis | + + | Coronary artery disease with angina pectoris, unspecified vessel or lesion type, | | unspecified whether [place] or transplanted heart (HCC) - Primary | + + | Coronary artery calcification | + + | Anterior ST segment depression | + + | Inferior myocardial infarction (HCC) Acute myocardial infarction of other inferior | | wall, episode of care unspecified | + + documented in this encounter"
--- OUTSIDE RECORDS SUMMARY | ~2018-12-18 | XMS | Encounter Summary ---
Demographics + + + | Address | [address] | | | [place] [address] | + + + | Home Phone [...] + + + | Author | [facility] | | | and [place] | + + + | Organization | [facility] | | | [...] Team Providers + +------+ + | Care Car Ferry Master Name | Role | Phone | + [...] + + | 11/24/ | Telephone | [facility] | Kady Cortez | Nu (Patient | | 2019 | | CARDIOLOGY KAVYA [place], Yard Spotter | update. ) | | | | [address] | | | | | | [address] [place] | | | | | | [address] | | | | | | [phone] | | | +--------+ + + + [...] [place] | | | | | | [id number] | | | | | | | | +--------+---------+ + + + documented as of this encounter Visit Diagnoses Not on filedocumented in this encounter"
--- OUTSIDE RECORDS SUMMARY | ~2018-12-18 | XMS | Encounter Summary ---
Demographics + + + | Address | [address] | | | [place] [address] | + + + | Home Phone | | + + + | Preferred Language | Unknown | + + + | Marital Status | Single | + + + | Rastafarian Affiliation | NRP | + + + | Race | or | + + + | Ethnic Group | Not or | + + + Author + + + | Author | [facility] | + + + | Organization | [facility] [employer] [facility] | + + + | Address | Unknown | + + + | Phone | Unavailable | + + + Support + + +---------+ + | Name | Relationship | Address | Phone | + + +---------+ + | Mary Medellin | ECON | Unknown | | + + +---------+ + Care Team Providers + +------+ + | Care Credit Interviewer Name | Role | Phone | + [...] Medical Records | | 2018 | | [facility] [address] [facility] | | Review (CAR GEN | | | | [address] | | Records Checklist) | | | | Mailcode: [id number] | | | | | | [facility] | | | | | | [address] [place], | | | | | | [place] [address] | | | | | | [phone] | | | +--------+ + + + [...] needed if being seen for abnormal ECG [place] 04/2017 Yes, in Care EW and attached below N/A Urgent fax request sent for tracings Last Echo images and report TTE [place] 04/2017 Yes, in Care EW and attached below Yes, in impax Urgent fax request sent to push im ages [phone] Last Stress Test images and report Exercise Stress Test No Last Cardiac Catheterization images and report [place] 04/2017 yes, in Care EW and attached below Yes, in impax Urgent fax request sent to push i mages [phone] Last Holter or Event monitor report only No N/A Labs (BMP, Lipids, TSH, Hemoglobin A1C in last 6 months) Cotuit Simpson's Yes, in Care EW N/A Last Device [...]
--- OUTSIDE RECORDS SUMMARY | ~2018-12-18 | XMS | Encounter Summary ---
Demographics + + + | Address | [address] | | | [place] [address] | + + + | Home Phone [...] + | Author | [facility] [employer] [facility] | + + + | Organization | [facility] [facility] [...] Team Providers + +------+ + | Care Fuse Assembler Name | Role | Phone | [...] | | | | | presence | [place], [place] | | | | | | unspecified, | [address] | | | | | | unspecified | Phone: | | | | | | vessel or | [phone] | | | | | | lesion type, | Fax: | | | | | | unspecified | [phone] | | | | | | whether | | | | | | | [place] or | | | | | | [...] + + + + | 03/04/ | Operations Engineer | Digestive Health | Clinton Morillo, | Coronary artery | | 2019 | | Center at [facility] [address] | [address] | disease, angina | | | | [place] | [address] | presence | | | | Mailcode: Center | [place], [place] | unspecified, | | | | for Health and | [address] | unspecified vessel | | | | Healing, [address] | [phone] | or lesion type, | | | | [place], [place] | | unspecified whether | | | | [address] | | [place] or | | | | [phone] | | transplanted heart | | | [...] or lesion | | type, unspecified whether [place] or transplanted heart - Primary | + + documented in this encounter"
--- OUTSIDE RECORDS SUMMARY | ~2018-12-18 | XMS | Encounter Summary ---
Demographics + + + | Address | [address] | | | [place] [address] | + + + | Home Phone [...] Author | [facility] [employer] [facility] | + + + | Organization | [facility] [employer] [facility] | + + + | Address | Unknown | + + + | Phone | Unavailable | + + + Support + + +---------+ + | Name | Relationship | Address | Phone | + + +---------+ + | Mary Medellin | ECON | Unknown | | + + +---------+ + Care Team Providers + +------+ + | Care Associate Professor Of Biostatistics Name | Role | Phone | + +------+ + | Shakir Monzon MD | PCP | | + +------+ + Encounter Details +--------+ + + + + | Date | Type | Department | Care Team | Description | +--------+ + + + + | 09/10/ | Procedure | Diagnostic Imaging | | | | 2018 | Pass | Services at [facility] | | | | | | [address] | | | | | | Mercedes Langford Mailcode: | | | | | | [address] | | | | | | [facility] | | | | | | [place], [place] | | | | | | [address] | | | | | | [phone] | | | +--------+ + + + [...]
--- OUTSIDE RECORDS SUMMARY | ~2018-12-18 | XMS | Clinical Summary ---
Demographics + + + | Address | [address] | | | [place] [address] | + + + | Home Phone [...] + + + | Author | [facility] | | | and [place] | + + + | Organization | [facility] | | | [...] Team Providers + +------+ + | Care Java Programmer Analyst Name | Role | Phone | + +------+ + | Shakir Monzon DO | PCP | | + +------+ + Allergies + + + + + + | Active Allergy | Reactions | Severity | Noted | Comments | | | | | Date | | + + + + + + | Hydromorphone | Anxiety, Other (See | High | 08/04/19 | Patient became | | | Comments), | | 18 | overly aggressive. | | | Hallucination | | | | + + + + + + Medications + + + +---------+------+------+-------+ | Medication | Sig | Dispensed | Refills | Star | End | Statu | | | | | | t | Date | s | | | | | | Date | | | + + + +---------+------+------+-------+ | lactulose 10 g/15 | Take 30 mLs by mouth | | 0 | | | Activ | | mL solution | 3 times daily. | | | | | e | + + + +---------+------+------+-------+ | omeprazole | Take 40 mg by mouth | | 0 | | | Activ | | (PRILOSEC) 40 MG | every morning | | | | | e | | capsule | (before breakfast). | | | | | | + + + +---------+------+------+-------+ | losartan (COZAAR) | Take 25 mg by mouth | | 0 | | | Activ | | 25 mg tablet | Daily. | | | | | e | + + + +---------+------+------+-------+ | rifAXIMin | Take 550 mg by mouth | | 0 | | | Activ | | (XIFAXAN) 550 mg | 2 times daily. | | | | | e | | TABS | | | | | | | + + + +---------+------+------+-------+ | rosuvastatin | Take 20 mg by mouth | | 0 | | | Activ | | (CRESTOR) 20 mg | nightly. | | | | | e | | tablet | | | | | | | + + + +---------+------+------+-------+ | insulin glargine | Inject 60-80 Units | | 0 | | | Activ | | (LANTUS SOLOSTAR) | under the skin 2 | | | | | e | | 100 units/mL | times daily. | | | | | | | injection (pen) | | | | | | | + + + +---------+------+------+-------+ | metoprolol | Take 1 tablet by | | 0 | | | Activ | | tartrate (LOPRESSOR) | mouth 2 times daily. | | | | | e | | 25 mg tablet | | | | | | | + + + +---------+------+------+-------+ | mesalamine | 1.2 g. | | 0 | 09/2 | | Activ | | (LIALDA) 1.2 g EC | | | | 6/20 | | e | | tablet | | | | 18 | | | + + + +---------+------+------+-------+ | insulin aspart | Inject 30 Units | | 0 | | | Activ | | (NOVOLOG FLEXPEN) | under the skin | | | | | e | | 100 units/mL | (SUBC) two times | | | | | | | injection pen | daily. Inject three | | | | | | | | times daily per | | | | | | | | sliding scale before | | | [...] isosorbide | Take 1 tablet by | | 0 | 04/1 | | Activ | | mononitrate (IMDUR) | mouth once daily. | | | 04/06 | | e | | 30 mg ER tablet | Indications: Chronic | | | 19 | | | | | Stable Angina | | | | | | + + + +---------+------+------+-------+ | mesalamine | Take 500 mg by mouth | | 0 | | | Activ | | (PENTASA) 500 MG CR | two times daily. | | | | | e | | capsule | | | | | | | + + + +---------+------+------+-------+ | nitroglycerin | Place 1 tablet under | | 0 | 09/1 | | Activ | | (NITROSTAT) 0.4 mg | tongue every five | | | 09/03 | | e | | SL tablet [...] | | + + + +---------+------+------+-------+ | gabapentin | Take 300 mg by mouth | | 0 | | | Activ | | (NEURONTIN) 300 mg | 3 times daily. | | | | | e | | capsule | | | | | | | + + + +---------+------+------+-------+ | apixaban (ELIQUIS) | Take 1 tablet by | 60 | 3 | 10/1 | | Activ | | 5 mg tablet | mouth 2 times daily. | tablet | | 5/20 | | e | | | | | | 19 | | | + + + +---------+------+------+-------+ | apixaban (ELIQUIS) | Take 5 mg by mouth 2 | | 0 | | 10/1 | Disco | | 5 mg tablet | times daily. | | | | 07/04 | ntinu | | | | | | | 19 | ed | + + + +---------+------+------+-------+ Active Problems + + + | Problem | Noted Date | + + + | Deep vein thrombosis (DVT) of lower extremity | 10/09/2018 | + + + | Acute urinary tract infection | 09/06/2018 | + + + | Chest pain | 09/06/2018 | + + + | Increased lactic acid level | 09/06/2018 | + + + | Lower gastrointestinal hemorrhage | 09/06/2018 | + + + | Proctitis | 09/06/2018 | + + + | Coronary arteriosclerosis | 07/01/2018 | + + + | Cholelithiasis | 04/07/2018 | + + + | Essential hypertension | 11/26/2017 | + + + | Shortness of breath | 10/21/2017 | + + + | Gallbladder perforation | 08/03/2017 | + + + | Cholecystitis | 04/27/2017 | + + + | Hepatic cirrhosis | 10/14/2016 | + + + | Esophageal varices determined by endoscopy | 07/24/2016 | + + + | Alcoholic cirrhosis of liver with ascites | 07/07/2016 | + + + | Cirrhosis of liver without ascites | 03/24/2016 | + + + | Hepatic encephalopathy | 03/24/2016 | + + + | Helicobacter pylori infection | 03/24/2016 | + + + | Alcohol use disorder, moderate, in early remission | 03/24/2016 | + + + | Hepatic cirrhosis, unspecified hepatic cirrhosis type | 09/16/2015 | + + + | Thrombocytopenia, unspecified | 09/16/2015 | + + + | Chronic hepatitis C without hepatic coma | 09/16/2015 | + + + | ETOH abuse | 09/16/2015 | + + + | Insulin dependent type 2 diabetes mellitus, uncontrolled | 09/16/2015 | + + + | Marijuana use | 09/16/2015 | + + + Encounters +--------+ + + + + | Date | Type | Specialty | Care Team | Description | +--------+ + + + + | 12/06/ | Telephone | Cardiology Kady Mason (Procedure | 2018 | | | D, Technical Project Lead | CLX. ) | +--------+ + + + + | 11/29/ | Refill | Kady Garza | Medication Refill | 2018 | | | Bridgette Technical Project Lead | | +--------+ + + + + | 11/24/ | Telephone | Kady Garza (Patient | 2018 | | | Bridgette Technical Project Lead | update. ) | +--------+ + + + + | 10/07/ | Documentati | Kady Garza | Nu (Luna | | 2018 | on | | Bridgette Technical Project Lead | Gabe ROSS ) | +--------+ + + + + | 10/06/ | Office | Cardiology | Lakisha Kahn DO | Risk factors for | | 2019 | Visit | | | obstructive sleep | | | | | | apnea (Primary Dx); | | | | | | Coronary | | | | | | arteriosclerosis; | | | | | | Essential [...] | | | | laterality (HCC) | +--------+ + + + + from [...] +------+ + + | Mother | | | | + +------+ + [...] | Blood Pressure | 124/70 | 10/06/2018 1000 PDT | + + + + | Pulse | 54 | 10/06/2018 1000 PDT | + + + + | Temperature | 36.9 C (98.4 F) | 08/03/2017 0132 PDT | + + + + | Respiratory Rate | 24 | 12/29/2017 1419 PST | + + + + | Oxygen Saturation | 97% | 10/06/2018 1000 PDT | + + + + | Inhaled Oxygen | - | - | | Concentration | | | + + + + | Weight | 107 kg (236 lb) | 10/06/2018 1000 PDT | + + + + | Height | 179.1 cm (5' 10.5") | 10/06/2018 1000 PDT | + + + + | Body Mass Index | 33.38 | 10/06/2018 1000 PDT | + + + + Plan of Treatment +--------+---------+ + + + | Date | Type | Specialty | Care Team | Description | +--------+---------+ + + + | 12/29/ | Office | Cardiology | Lakisha Kahn DO | | | 2019 | Visit | | [address] | | | | | | [place] | | | | | | [address] | | | | | | | [...] + + | Hemoglobin A1c | | 07/30/2015 | | | Screening | 6 | | | + + + + + | Vaccine: Zoster (2 | | 09/16/2016 | | | of 3) | 7 | | | + + + + + | Vaccine: Influenza | | 12/01/2016, 12/08/2012 | | | (#1) | 9 | [...] Last 3 Months Insurance + +--------+ +--------+ +---------+--------+ | Payer | Benefi | Subscriber | Effect | Phone | Address | Type | | | t Plan | ID | toney | | | | | | / | | Dates | | | | | | Group | | | | | | + +--------+ +--------+ +---------+--------+ | HEALTH | IHS | [id number] | | | | Indemn | | SERVICE | YELLOW | | 009-Pr | | | ity | | | HAWK | | esent | | | | + +--------+ +--------+ +---------+--------+ | [place] | MEDICA | [id number] | 04/16/19 | [phone] | | Medica | | | ID [place] | | 18-Pre | 2 | | id | | | PLUS | | sent | | | | + +--------+ +--------+ +---------+--------+ | [employer] [facility] | IHS | [id number] | 05/21/19 | | | Indemn | | SERVICE | YELLOW | | 16-Pre | | | ity | | | HAWK | | sent | | | | + +--------+ +--------+ +---------+--------+ + +--------+ +--------+ + + | Guarantor Name | Accoun | Relation to | Date | Phone | Billing Address | | | t Type | Patient | of | | | | | | | | | | + +--------+ +--------+ + + | Bret Espinal Jr. | Person | Self | [birth year] | [address] | | | al/Fam | | 1955 | [phone] | [place] | | | eryn | | | 1 (Home) | [address] | + +--------+ +--------+ + + | Bret Espinal Jr. | Person | Self | [birth year] | | [address] | | | al/Fam | | 1955 | [phone] | [place] | | | eryn | | | 1 (Home) | [address] | + +--------+ +--------+ + + Advance Directives Patient has advance care planning documents, and code status on file. For more information, please contact:[facility] aleks [place] [address] + + + + + | Code Status | Date | Date | Comments | | | Activated | Inactivated | | + + + + + | Full Code | 04/26/2017 | 04/28/2017 | | | | 11:15 | 19:32 | | + + + + +
--- OUTSIDE RECORDS SUMMARY | ~2018-12-18 | XMS | Encounter Summary ---
Demographics + + + | Address | [address] | | | [place] [address] | + + + | Home Phone [...] + | Author | [facility] [facility] | + + + | Organization | [facility] [employer] [facility] | + [...] Providers + +------+ + | Care Java Consultant Name | Role | Phone | + +------+ + | Shakir Monzon MD | PCP | | + +------+ + Encounter Details +--------+ + + + + | Date | Type | Department | Care Team | Description | +--------+ + + + + | 10/16/ | Industrial Engineering Technologist | Digestive Health | Bessy Solano, | | | 2016 | | Center [place] [address] [address] | [address] | | | | | [place] [place] | [facility] | | | | | Mailcode: OC8D | [place], [place] | | | | | [facility] | [address] | | | | | and Healing, | [phone] | | | | | [address] | | | | | | [place], [place] | | | | | | [address] | | | | | | [phone] | | | +--------+ + + + [...]
--- OUTSIDE RECORDS SUMMARY | ~2018-12-18 | XMS | Encounter Summary ---
Demographics + + + | Address | [address] | | | [place] [address] | + + + | Home Phone [...] + | Author | [facility] | + + + | Organization | [facility] [employer] [facility] | + + + | Address | Unknown | + + + | Phone | Unavailable | + + + Support + + +---------+ + | Name | Relationship | Address | Phone | + + +---------+ + | Mary Medellin | ECON | Unknown | | + + +---------+ + Care Team Providers + +------+ + | Care Biotech Production Specialist Name | Role | Phone | [...] | | | | [address]ivas | [facility] | | | | | Mailcode: Center | [place], [place] | | | | | for Health and | [address] | | | | | Healing, [address] | [phone] | | | | | [place], [place] | | | | | | [address] | | | | | | [phone] | | | +--------+ + + + [...]
--- OUTSIDE RECORDS SUMMARY | ~2018-12-18 | XMS | Encounter Summary ---
Demographics + + + | Address | [address] | | | [place] [address] | + + + | Home Phone [...] Author + + + | Author | [facility] | + + + | Organization | [facility] | + + + | Address | Unknown | + + + | Phone | Unavailable | + + + Support + + +---------+ + | Name | Relationship | Address | Phone | + + +---------+ + | Mary Medellin | ECON | Unknown | | + + +---------+ + Care Team Providers + +------+ + | Care Supervisor Assembly Stock Name | Role | Phone | + [...] | | | | [address] [place]ivas | [facility] | | | | | Mailcode: Center | [place], [place] | | | | | [facility] and | [address] | | | | | [facility] 2 | [phone] | | | | | [place], [place] | | | | | | [address] | | | | | | [phone] | | | +--------+ + + + [...]
--- OUTSIDE RECORDS SUMMARY | ~2018-12-18 | XMS | Encounter Summary ---
Demographics + + + | Address | [address] | | | [place] [address] | + + + | Home Phone [...] + + | Author | [facility] | + + + | Organization | [facility] | + + + | Address | Unknown | + + + | Phone | Unavailable | + + + Support + + +---------+ + | Name | Relationship | Address | Phone | + + +---------+ + | Mary Medellin | ECON | Unknown | | + + +---------+ + Care Team Providers + +------+ + | Care Brand Mgr Name | Role | Phone | + [...] Request | | 2018 | | at [facility] [address] | [address] [address] | (DUR) | | | | Rolando Rivas Mailcode: | [address] [place], | | | | | [address] | [place] [address] | | | | | Health and Healing, | [phone] | | | | | [facility] | | | | | | Floor [place], [place] | | | | | | [address] | | | | | | [phone] | | | +--------+--------+ + + + [...]
--- OUTSIDE RECORDS SUMMARY | ~2018-12-18 | XMS | Encounter Summary ---
Demographics + + + | Address | [address] | | | [place] [address] | + + + | Home Phone [...] + + | Author | [facility] [facility] | + + + | Organization | [facility] [employer] [facility] | + + + | Address | Unknown | + + + | Phone | Unavailable | + + + Support + + +---------+ + | Name | Relationship | Address | Phone | + + +---------+ + | Mary Medellin | ECON | Unknown | | + + +---------+ + Care Team Providers + +------+ + | Care Mix Crusher Operator Name | Role | Phone | [...] Lab Order | | 2017 | | [place] at [facility] [address] | [address] | | | | | [place] | [address] | | | | | Mailcode: OC8D | [place], [place] | | | | | [facility] | [address] | | | | | and Max[place], | [phone] | | | | | [address] | | | | | | [place], [place] | | | | | | [address] | | | | | | [phone] | | | +--------+ + + + [...]
--- OUTSIDE RECORDS SUMMARY | ~2018-12-18 | XMS | Encounter Summary ---
Demographics + + + | Address | [address] | | | [place] [address] | + + + | Home Phone [...] + + | Author | [facility] | + + + | Organization | [facility] | [...] Team Providers + +------+ + | Care Hinging Machine Operator Name | Role | Phone | + +------+ + | Shakir Monzon MD | PCP | | + +------+ + Encounter Details +--------+ + + + + | Date | Type | Department | Care Team | Description | +--------+ + + + + | 05/10/ | Telephone | Digestive Health | Bessy Solano, | | | 2017 | | [place] [address] [address] | PA-C [address] | | | | | [address] | [address] | | | | | Mailcode: OC8D | [place], [place] | | | | | [place] for [facility] | [address] | | | | | and Maxine, | [phone] | | | | | [address] | | | | | | [place], [place] | | | | | | [address] | | | | | | [phone] | | | +--------+ + + + [...] + + + + | [facility] | [address] | [place] [address] | | | SERVICES, CORE | PARVEEN [...] + + + + | [facility] | [address] [facility] | [place] [address] | | | SERVICES, CORE | [address] [...] | | | LABORATORY | | | [place] | | | SERVICES, | | | [...] LINDA LAGUERRE | [address] | [place] [address] | | | SERVICES, CORE | [address] | | | + + + + + documented in this encounter Visit Diagnoses + + | Diagnosis | + + | Cirrhosis of liver without ascites, unspecified hepatic cirrhosis type (HCC) - Primary | + + documented in this encounter"
--- OUTSIDE RECORDS SUMMARY | ~2018-12-18 | XMS | Encounter Summary ---
Demographics + + + | Address | [address] | | | [place] [address] | + + + | Home Phone [...] Author + + + | Author | [facility] [employer] [facility] | + + + | Organization | [facility] [employer] [facility] | + + + | Address | Unknown | + + + | Phone | Unavailable | + + + Support + + +---------+ + | Name | Relationship | Address | Phone | + + +---------+ + | Mary Medellin | ECON | Unknown | | + + +---------+ + Care Team Providers + +------+ + | Care Diabetes Solutions Specialist Name | Role | Phone | [...] | | 2018 | | Center at [facility] [address] | [address] | | | | | [address] | [address] | | | | | Mailcode: Center | [place], [place] | | | | | [facility] and | [address] | | | | | [place] [address] | [phone] | | | | | [place], [place] | | | | | | [address] | | | | | | [phone] | | | +--------+ + + + [...]
--- OUTSIDE RECORDS SUMMARY | ~2018-12-18 | XMS | Encounter Summary ---
Demographics + + + | Address | [address] | | | [place] [address] | + + + | Home Phone [...] + + + | Author | [facility] backstitch [facility] | + + + | Organization | [facility] [employer] [facility] | + [...] Team Providers + +------+ + | Care Management Department Chair Name | Role | Phone | + [...] | | | | Mailcode: Center | [place], [place] | | | | | [facility] and | [address] | | | | | [facility] 2 | [phone] | | | | | [place], [place] | | | | | | [address] | | | | | | [phone] | | | +--------+ + + + [...]
--- OUTSIDE RECORDS SUMMARY | ~2018-12-18 | XMS | Encounter Summary ---
Demographics + + + | Address | [address] | | | [place] [address] | + + + | Home Phone [...] Author + + + | Author | [facility] | + + + | Organization | [facility] | + + + | Address | Unknown | + + + | Phone | Unavailable | + + + Support + + +---------+ + | Name | Relationship | Address | Phone | + + +---------+ + | Mary Medellin | ECON | Unknown | | + + +---------+ + Care Team Providers + +------+ + | Care Spinning And Winding Supervisor Name | Role | Phone | [...] 2018 | | General Surgery at | [facility] | | | | | PPV [address] [facility] | Road [place], [place] | | | | | [facility] [address] | [address] | | | | | Mailcode: [id number] | | | | | | Nikkie [place]azariegos | | | | | | [address] [place], [place] | | | | | | [address] | | | | | | [phone] | | | +--------+ + + + [...]
--- OUTSIDE RECORDS SUMMARY | ~2018-12-18 | XMS | Encounter Summary ---
Demographics + + + | Address | [address] | | | [place] [address] | + + + | Home Phone [...] Author | [facility] | + + + | Organization | [facility] | + + + | Address | Unknown | + + + | Phone | Unavailable | + + + Support + + +---------+ + | Name | Relationship | Address | Phone | + + +---------+ + | Mary Medellin | ECON | Unknown | | + + +---------+ + Care Team Providers + +------+ + | Care Cyanide Furnace Operator Name | Role | Phone | [...] | (isosorbide ) | | | | [facility] [address] | [facility] [address] [facility] [address] | | | | | Mailcode: [id number] | [place], [place] | | | | | [facility] | [address] | | | | | [address] [place], | [phone] | | | | | [place] [address] | | | | | | [phone] | | | +--------+--------+ + + + [...]
--- OUTSIDE RECORDS SUMMARY | ~2018-12-18 | XMS | Encounter Summary ---
Demographics + + + | Address | [address] | | | [place] [address] | + + + | Home Phone [...] | Author | [facility] | + + + | Organization | [facility] | + + + | Address | Unknown | + + + | Phone | Unavailable | + + + Support + + +---------+ + | Name | Relationship | Address | Phone | + + +---------+ + | Mary Medellin | ECON | Unknown | | + + +---------+ + Care Team Providers + +------+ + | Care Breaker Operator Name | Role | Phone | + +------+ + | Shakir Monzon MD | PCP | | + +------+ + Encounter Details +--------+ + + + + | Date | Type | Department | Care Team | Description | +--------+ + + + + | 12/01/ | Telephone | Digestive Health | Bessy Solano, | | | 2018 | | [place] [address] [address] | PA-C [address] | | | | | [address] | [address] | | | | | Mailcode: OC8D | [place], [place] | | | | | [place] for [facility] | [address] | | | | | and [place]ine, | [phone] | | | | | [facility] 2 | | | | | | [place], [place] | | | | | | [address] | | | | | | [phone] | | | +--------+ + + + [...]
--- OUTSIDE RECORDS SUMMARY | ~2018-12-18 | XMS | Encounter Summary ---
Demographics + + + | Address | [address] | | | [place] [address] | + + + | Home Phone [...] Author + + + | Author | [facility] [employer] [facility] | + + + | Organization | [facility] [employer] [facility] | + + + | Address | Unknown | + + + | Phone | Unavailable | + + + Support + + +---------+ + | Name | Relationship | Address | Phone | + + +---------+ + | Mary Medellin | ECON | Unknown | | + + +---------+ + Care Team Providers + +------+ + | Care Poultry Raiser Name | Role | Phone | + [...] | | 2018 | | Center at [facility] [address] | PA-C [address] | Review | | | | [address] | [address] [facility] | | | | | Mailcode: OC8D | [place], [place] | | | | | [facility] | [address] | | | | | and Healing, | [phone] | | | | | [address] | | | | | | [place], [place] | | | | | | [address] | | | | | | [phone] | | | +--------+ + + + [...]
--- OUTSIDE RECORDS SUMMARY | ~2018-12-18 | XMS | Encounter Summary ---
Demographics + + + | Address | [address] | | | [place] [address] | + + + | Home Phone [...] + + + | Author | [facility] | | | and [place] | + + + | Organization | [facility] | | | [...] Team Providers + +------+ + | Care Pay Clerk Name | Role | Phone | [...] + + | 12/06/ | Telephone | [facility] | Kady Cortez | Other (Procedure | | 2019 | | CARDIOLOGY [place] [place] | CLXSyeda ) | | | | [address] | | | | | | [place] | | | | | | [address] | | | | | | [phone] | | | +--------+ + + + [...] [place] | | | | | | [id number] | | | | | | | | +--------+---------+ + + + documented as of this encounter Visit Diagnoses Not on filedocumented in this encounter"
--- OUTSIDE RECORDS SUMMARY | ~2018-12-18 | XMS | Encounter Summary ---
Demographics + + + | Address | [address] | | | [place] [address] | + + + | Home Phone [...] + + | Author | [facility] [facility] | + + + | Organization | [facility] [employer] [facility] | + + + | Address | Unknown | + + + | Phone | Unavailable | + + + Support + + +---------+ + | Name | Relationship | Address | Phone | + + +---------+ + | Mary Medellin | ECON | Unknown | | + + +---------+ + Care Team Providers + +------+ + | Care Resident Surgeon Name | Role | Phone | + [...] | | 2019 | | Center at [facility] [address] | | - General | | | | [address] | | | | | | Mailcode: [place] | | | | | | [facility] and | | | | | | [facility], [address] | | | | | | [place], [place] | | | | | | [address] | | | | | | [phone] | | | +--------+ + + + [...]
--- OUTSIDE RECORDS SUMMARY | ~2018-12-18 | XMS | Encounter Summary ---
Demographics + + + | Address | [address] | | | [place] [address] | + + + | Home Phone | | + + + | Preferred Language | Unknown | + + + | Marital Status | Single | + + + | Druze Affiliation | NRP | + + + | Race | or | + + + | Ethnic Group | Not or | + + + Author + + + | Author | [facility] | + + + | Organization | [facility] | + + + | Address | Unknown | + + + | Phone | Unavailable | + + + Support + + +---------+ + | Name | Relationship | Address | Phone | + + +---------+ + | Mary Medellin | ECON | Unknown | | + + +---------+ + Care Team Providers + +------+ + | Care Psychological Science Professor Name | Role | Phone | [...] Request | | 2019 | | at [facility] [address] | [address] | | | | | Rolando Rivas Mailcode: | Rolando Rivas [place], | | | | | [facility] | [place] [address] | | | | | Health and Healing, | [phone] | | | | | [facility] | | | | | | Floor [place], [place] | | | | | | [address] | | | | | | [phone] | | | +--------+--------+ + + + [...]
--- OUTSIDE RECORDS SUMMARY | ~2018-12-18 | XMS | Encounter Summary ---
Demographics + + + | Address | [address] | | | [place] [address] | + + + | Home Phone [...] | Author | [facility] | + + + | Organization | [facility] | [...] Team Providers + +------+ + | Care Corn Picker Name | Role | Phone | + +------+ + | Shakir Monzon MD | PCP | | + +------+ + Encounter Details +--------+ + + + + | Date | Type | Department | Care Team | Description | +--------+ + + + + | 08/05/ | Procedure | Diagnostic Imaging | | | | 2018 | Pass | Services at [facility] | | | | | | [address] | | | | | | Mercedes Langford Mailcode: | | | | | | [address] | | | | | | [facility] | | | | | | [place], [place] | | | | | | [address] | | | | | | [phone] | | | +--------+ + + + [...]
--- OUTSIDE RECORDS SUMMARY | ~2018-12-18 | XMS | Encounter Summary ---
Demographics + + + | Address | [address] | | | [place] [address] | + + + | Home Phone [...] + + | Author | [facility] | + + + | Organization | [facility] | + + + | Address | Unknown | + + + | Phone | Unavailable | + + + Support + + +---------+ + | Name | Relationship | Address | Phone | + + +---------+ + | Mary Medellin | ECON | Unknown | | + + +---------+ + Care Team Providers + +------+ + | Care Housekeeper Manager Name | Role | Phone | + +------+ + | Shaikr Monzon MD | PCP | | + [...] CT ABDOMEN | [address] | Rd [place], | | | | | AND PELVIS | [place], [place] | [place] | | | | | [place] | [address] | [address] | | | | | CONTRAST ME | Phone: | Phone: | | | | | CT | [phone] | [phone] | | | | | ABDOMEN&PELV | Fax: | Fax: | | | | | IS | [phone] | [phone] | | | | | W/CONTRAST | [...] + + | 08/03/ | Hospital | [address] | [place], | | | 2018 - | Encounter | [address] | [place] [address] [facility] | | | | | [place], [place] | [address] | | | 08/07/ | | [address] | [place], [place] | | | 2017 | | [phone] | [address] | | | | | | [phone] | | | | | | | [...] d hepatic encephalopathy who was transferred from [facility]. He had presented with cholecystitis with apparent [...] Plan to follow up in 1 w [place] with pre-clinic visit CT scan. BP 128/77 [...] your drain output increases, please call the [facility] computed tomography scanner operator and ask for the EGS resident substation operator. You may need to go to y our nearest emergency department to check some labs. Schedule the following appointment(s) when you get home Trauma Emergency General Surgery at [facility] On 08/13/2017. Specialty: Trauma Center Why: For wound re-check Contact information [address] [facility] Mailcode: L223a [facility] [address] [facility] [address] Additional information: [facility] 2nd floor [address]. The Physician's Pavilion is the building just past [facility]. Turn r ight immediately past the Pavilion. The entrance to the garage will be on your right just be yond the main entrance to the Pavilion. [employer] parking is available in the Physician's Pavili [...] MD PCP: [place] Uri[place] p [id number] EGS Associated attestation - Herminio Still MD,PhD - 08/07/2017 9:33 PM PDTEmergency General H[facility]/Trauma Attending Addendum Date of Service: 08/07/2017 I saw and examined Bret Espinal Jr. ([id number]) with the resident and agree with the assess ment and plan as outlined in this note and participated in the planning of care. Mr. Espinal is stable for discharge today. We will plan to see him back in clinic in a week with a pre-clinic ct to re-eval the perihilar fluid collection/abscess. Herminio Still MD, PhD, FACS plaster helper Division of Trauma, Critical Care & Acute Care Surgery [facility] [phone] documented in this encounter Medications at Time [...] Uriah Marx MD - 08/07/2017 7:52 AM [facility] GENERAL SURGERY Mr. 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. He had presented with cholecystitis with apparent [...] visit CT [place] p [id number] EGS Associated attestation - Herminio Still MD,PhD - 08/07/2017 9:34 PM [facility]/Trauma Attending Addendum Date of Service: 08/07/2017 I saw and examined Bret Espinal Jr. ([id number]) with the resident and agree with the assess ment and plan as outlined in this note and participated in the planning of care. Herminio Still MD, PhD, FACS plaster helper Division of Trauma, Critical Care & Acute Care Surgery [facility] [phone] Uriah Marx MD - 08/06/2017 11:52 AM [facility] Mr. Espinal is a [...] early next [place] p [id number] EGS Associated attestation - Herminio Still MD,PhD - 08/07/2017 9:34 PM PDTEmergency General Hines rgery/Trauma Attending Addendum Date of Service: 08/06/2017 I saw and examined Bret Espinal Jr. ([id number]) with the resident and agree with the assess ment and plan as outlined in this note and participated in the planning of care. Herminio Still MD, PhD, FACS plaster helper Division of Trauma, Critical Care & Acute Care Surgery [facility] [phone] Cherise Bhatti MD - 08/06/2017 11:31 AM [...] Bhatti MD IR Fellow 08/06/17 11:36 AM uJsto Keen MD - 08/06/2017 9:12 AM PDT [...] plan was discussed and formulated with the Pa stroenterology attending, Dr. Bernabe. Please call the on-call GI fellow with any questions . Justo Roche MD Fellow, Gastroenterology Pager: [phone] INTERVAL HISTORY: MRCP overnight with extrinsic compression [...] note for further details. Jaleel Bernabe MD [facility] [address] [place] [address] [facility] DEPARTMENT: GI - [id number] Place of Service: HOSP CSN: [id number] Suggested Modifiers: GC - Resident Involved Suggested Level of Care: 86275 - Subsequent, Prob Foc/low complex 15 min Uriah Marx MD - 08/05/2017 8:09 AM [facility] Mr. 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. He had presented with cholecystitis with apparent [...] in 1-2 days [place] p [id number] EGS ojaki, Rylan Sinclair D - 08/05/2017 [...] questions. Justo Roche MD Fellow, Gastroenterology Pager: [phone] INTERVAL HISTORY: Hemodynmaics stable E coli in [...] note for further details. Mirza Bender MD Director Of Residence Life Gastroenterology and Hepatology Uriah Marx MD - 08/04/2017 9:37 AM [facility] Mr. Espinal is a [...] in 1-2 [place] p 23534 EGS Associated attestation - Herminio Still MD,PhD - 08/04/2017 6:02 PM PDTEmergency General Hines rgery/Trauma Attending Addendum Date of Service: 08/04/2017 I saw and examined Bret Espinal . ([id number]) with the resident and agree with the assess ment and plan as outlined in this note and participated in the planning of care. Continue with diet. Will need to leave the cholecystostomy tube in place for several weeks. MRCP per GI recs. Herminio Still MD, PhD, FACS plaster helper Division of Trauma, Critical Care & Acute Care Surgery [facility] [phone] Justo Roche MD - 08/04/2017 6:29 AM PDTFormatting of this note might be different f rom the original. Gastroenterology Follow-Up Note Date: 08/04/2017 IMPRESSION/PLAN: rBet Espinal Jr. is a 61 y.o. male [...] questions. Justo Roche MD Fellow, Gastroenterology Pager: [phone] INTERVAL HISTORY: 10.2 Fr chholecystostomy tube placced [...] note for further details. Mirza Bender MD Director Of Residence Life Gastroenterology and Hepatology Santosh Fallon MD - [...] tylenol to 1000 mg TID scheduled from [id number] - Gave 2 mg morphine IV - [...] are concerns. Santosh Fallon, PGY-1 Trauma Surgery [id number] Update 9:45 pm: Patient is doing much [...] any concerns Santosh Fallon, PGY-1 Trauma Surgery [id number] signed by Santosh Fallon MD at 08/03/2017 [...] for this procedure can be found in [facility], under the results review tab for ([facility]) Interventional Radiology. Alternatively, they can be found in [facility] under tony rt review, imaging tab. Full report can also be found in [facility] as REPORT under the specifie d procedure. [...] under moderate sedation Cherise Bhatti MD Pager: [phone] [facility] No past medical history on file. No [...] AT,GLUC,CA,AST,ALT,B | | | | | | INC TOTAL,ALK | | | | | | [...] MARLAQUITAAM | [address] | [place], [place] | | | [facility] | [facility] | [address] | | | TESTS | | | [...] (H) | 70 - 99 mg/dL | [facility] - | | | GLUCOSE, | | [...] FALL | [address] | [place], [place] | | | [facility] CARE | [address] | [address] | | | TESTS | | | [...] | + + + + + | [facility] | [address] | [place] [address] | | | JORGE L BURTON | [...] | | | LABORATORY | | | ANDORRAN | | | SERVICES, | | | [...] the MDRD equation recommended by the | [facility] | | National Kidney Disease Education [...] | + + + + + | [facility] | [address] | [place] [address] | | | JORGE L BURTON | [...] MARLAQUITAAM | [address] | [place], [place] | | | [facility] PO[facility]ARE | [address] | [address] | | | TESTS | | | [...] FALL | [address] | [place], [place] | | | [facility] | [address] | [address] | | | TESTS | | | [...] MARQUAM | [address] | [place], [place] | | | [facility] | [address] | [address] | | | TESTS | | | [...] MARQUAM | [address] | [place], [place] | | | [facility]ARE | [address] | [address] | | | TESTS | | | [...] + + + | LINDA FALL | [address] | [place], [place] | | | [facility] | [address] | [address] | | | TESTS | | | [...] [facility] | [address] | [place] [address] | | | JORGE L BURTON | [...] | | | LABORATORY | | | ANDORRAN | | | SERVICES, | | | [...] the MDRD equation recommended by the | [facility] | | National Kidney Disease Education Program. [...] [facility] | [address] | [place] [address] | | | SERVICES, CORE | PARK [...] | + + + + + | [facility] | [address] [facility] | [place] [address] | | | SERVICES, CORE | PARVEEN [...] FALL | [address] | [place], [place] | | | [facility] | [facility] | [address] | | | TESTS | | | [...] MARQUAM | [address] | [place], [place] | | | [facility] | [address] | [address] | | | TESTS | | | [...] Note | + + | Service Account, Panorama9 Res In Interface - 08/06/2017 9:15 AM [...] MARQUAM | [address] | [place], [place] | | | [facility] | [address] | [address] | | | TESTS | | | [...] [facility] | [address] | [place] [address] | | | SERVICES, CORE | PARVEEN [...] | | | LABORATORY | | | ANDORRAN | | | SERVICES, | | | [...] | + + + + + | [facility] | [address] | [place] [address] | | | SERVICES, CORE | PARVEEN [...] MARQUAM | [address] | [place], [place] | | | [facility] | [address] | [address] | | | TESTS | | | [...] EUFEMIA | [address] | [place], [place] | | | [facility] | [address] | [address] | | | TESTS | | | [...] (H) | 70 - 99 mg/dL | [facility] - | | | GLUCOSE, | | [...] FALL | [address] | [place], [place] | | | [facility] | [address] | [address] | | | TESTS | | | [...] MARQUAM | [address] | [place], [place] | | | [facility] | [address] | [address] | | | TESTS | | | [...] - EUFEMIA | [address] | [place], [place] | | | [facility] | [address] | [address] | | | TESTS | | | [...] (H) | 70 - 99 mg/dL | [facility] - | | | GLUCOSE, | | [...] FALL | [address] | [place], [place] | | | [facility] | [address] | [address] | | | TESTS | | | [...] MARQUAM | [address] | [place], [place] | | | [facility] | [address] | [address] | | | TESTS | | | [...] - EUFEMIA | [address] | [place], [place] | | | [facility] | [address] | [address] | | | TESTS | | | [...] (H) | 70 - 99 mg/dL | [facility] - | | | GLUCOSE, | | [...] FALL | [address] | [place], [place] | | | [facility] | [address] | [address] | | | TESTS | | | [...] MARQUAM | [address] | [place], [place] | | | [facility] | [address] | [address] | | | TESTS | | | [...] - EUFEMIA | [address] | [place], [place] | | | [facility] | [address] | [address] | | | TESTS | | | [...] (H) | 70 - 99 mg/dL | [facility] - | | | GLUCOSE, | | [...] FALL | [address] | [place], [place] | | | [facility] | [address] | [address] | | | TESTS | | | [...] SAIRAAM | [address] | [place], [place] | | | [facility] | [address] | [address] | | | TESTS | | | [...] LINDA FALL | [address] | [place], [place] | | | [facility] | [address] | [address] | | | TESTS | | | [...] [facility] | [address] | [place] [address] | | | JORGE L BURTON | [address] | | | + + + [...] | | | LABORATORY | | | ANDORRAN | | | SERVICES, | | | [...] the MDRD equation recommended by the | [facility] | | National Kidney Disease Education Program. [...] | + + + + + | [facility] | [address] | [place] [address] | | | JORGE L BURTON | [...] (H) | 70 - 99 mg/dL | [facility] - | | | GLUCOSE, | | [...] FALL | [address] | [place], [place] | | | [facility]ARE | [address] | [address] | | | TESTS | | | [...] | + + + + + | [facility] - EUFEMIA | [address] | [place], [place] | | | [facility] | [facility] | [address] | | | TESTS | | | [...] [facility] - SAIRAAM | [address] | [place], [place] | | | [facility] | [facility] | [address] | | | TESTS | | | [...] (H) | 70 - 99 mg/dL | [facility] - | | | GLUCOSE, | | [...] FALL | [address] | [place], [place] | | | [facility] | [address] | [address] | | | TESTS | | | [...] FALL | [address] | [place], [place] | | | [facility] | [facility] | [address] | | | TESTS | | | [...] SAIRAAM | [address] | [place], [place] | | | [facility] | [facility] | [address] | | | TESTS | | | [...] (H) | 70 - 99 mg/dL | [facility] - | | | GLUCOSE, | | [...] FALL | [address] | [place], [place] | | | [facility] | [address] | [address] | | | TESTS | | | | + + + + + X-RAY PORTABLE CHEST 1 VIEW (08/03/2017 9:48 PM PDT) + + | Specimen | + + | | + + + + + | Narrative | Performed At | + + + | EXAM: ME CHEST 1 VIEW HISTORY: Abdominal and chest [...] Interface - 08/04/2017 9:33 AM PDT EXAM: ME CHEST 1 | | VIEW HISTORY: Abdominal [...] EUFEMIA | [address] | [place], [place] | | | [facility] | [address] | [address] | | | TESTS | | | [...] | + + + + + | [facility] | [address] | [place] [address] | | | SERVICES, CORE | PARK [...] 13.69 (H) | 3.50 - 10.80 | [facility] | | | COUNT | | K/cu [...] [facility] | [address] | [place] [address] | | | SERVICES, CORE | PARK [...] | | | LABORATORY | | | ANDORRAN | | | SERVICES, | | | [...] | + + + + + | [employer] | [address] | [place] [address] | | | SERVICES, JORGE L | [...] | + + + + + | [facility] | [address] | [place] [address] | | | JORGE L BURTON | [...] | + + + + + | [facility] DEPT OF | [address] | [place], [place] | | | CARDIOLOGY | [address] | [address] | | + + + + + [...] EUFEMIA | [address] | [place], [place] | | | [facility] [place] | [facility] | [address] | | | TESTS | | | [...] (H) | 70 - 99 mg/dL | [facility] - | | | GLUCOSE, | | [...] FALL | [address] | [place], [place] | | | [facility] PO[facility] CARE | [address] | [address] | | | TESTS | | | [...] + | FLOOD - AIRPORT - | [address] | [place] [address] | | | [facility] | | | | + + + [...] | + + + + + | [employer] | [address] | [place] [address] | | | SERVICES, CORE | PARVEEN [...] US | | | guided placement 10.2 Tristanian MPD drainage catheter into gallbladder | | | Operation 2. Fluoroscopic guided confirmation of 10.2 Tristanian MPD | | | drainage catheter Indications: [...] intercostal approach. | | | A 10.2 Tristanian MPD catheter was advanced directly into the [...] Note | + + | Service Account, [employer] In Interface - 08/20/2017 2:24 PM PDT Procedure: | | Percutaneous CholecystostomyPrimary Interventionalist: Shawna Fregoso | | Interventionalist: ESCOBAR Kelleyreoperative diagnosis: | | cholecystitisPostoperative diagnosis: SameOperations:Operation 1. US guided placement | | 10.2 Tristanian MPD drainage catheter into gallbladderOperation 2. Fluoroscopic guided | | confirmation of 10.2 Tristanian MPD drainage catheterIndications:61 year-old male with acute [...] an | | intercostal approach. A 10.2 Tristanian MPD catheter was advanced directly into the [...] from an intercostal approach. A | |10.2 Tristanian MPD catheter was advanced directly into the [...] FALL | [address] | [place], [place] | | | [facility]ARE | [address] | [address] | | | TESTS | | | [...] MARQUAM | [address] | [place], [place] | | | [facility] | [facility] | [address] | | | TESTS | | | [...] MARQUAM | [address] | [place], [place] | | | [facility] [place] | [facility] | [address] | | | TESTS | | | [...] FALL | [address] | [place], [place] | | | [facility] | [address] | [address] | | | TESTS | | | [...] DEPT OF | [address] | [place], [place] | | | CARDIOLOGY | [address] | [address] | | + + + + + [...] | + + + + + | [facility] | [address] | [place] [address] | | | SERVICES, | [address] [...] [facility] | [address] | [place] [address] | | | SERVICES, CORE | PARK [...] | + + + + + | [facility] | [address] | [place] [address] | | | SERVICESJORGE L | PARVEEN [...] [facility] | [address] | [place] [address] | | | SERVICES, | [address] [...] | + + + + + | [facility] | [address] | [place] [address] | | | SERVICES, | [address] [...] | + + + + + | [facility] | [address] | [place] [address] | | | SERVICES, [facility] | [address] | | | + + + + + HEMOGLOBIN A1C, BLOOD (08/03/2017 11:29 AM PDT) + + + + + + | Component | Value | Ref Range | Performed | Pathologist | | | | | At | Signature | + + + + + + | HEMOGLOBIN | 9.8 (H)Comment: Hgb A1C | <5.7 % | [facility] | | | A1C | Interpretive | [...] | [facility] | | considered for monitoring barn manager glycemic control in patients with: | [...] | + + + + + | [facility] | [address] | [place] [address] | | | SERVICES, SPECIAL | PARVEEN [...] | + + + + + | [facility] | [address] | [place] [address] | | | SERVICES, CORE | PARK [...] + + | [facility] | [address] | [place] [address] | | | MICHEAL, JORGE L | [...] | + + + + + | [facility] | [address] | [place] [address] | | | SERVICES, CORE | PARK [...] | | | LABORATORY | | | ANDORRAN | | | SERVICES, | | | [...] | + + + + + | [facility] | [address] | [place] [address] | | | SERVICES, CORE | PARVEEN [...] MARQUAM | [address] | [place], [place] | | | [facility] PO[facility] CARE | [address] | [address] | | | TESTS | | | [...] contrast performed at outside institution. DATE OF [facility] | RADIOLOGY VOICE | | INTERPRETATION: 08/03/17 [...] at | | outside institution. DATE OF [facility] INTERPRETATION: 08/03/17DATE OF IMAGE ACQUISITION: | | [...] 7:08 | | | | | dose, [facility] 08/05/17 at 1145 | | PM PDT [...]
--- OUTSIDE RECORDS SUMMARY | ~2018-12-18 | XMS | Encounter Summary ---
Demographics + + + | Address | [address] | | | [place] [address] | + + + | Home Phone | | + + + | Preferred Language | Unknown | + + + | Marital Status | Single | + + + | Confucianist Affiliation | Unknown | + + + | Race | Unknown | + + + | Ethnic Group | Unknown | + + + Author + + + | Author | [facility] | | | and [place] | + + + | Organization | [facility] | [...] Team Providers + +------+ + | Care [employer] Java Developer Name | Role | Phone | [...] + + | 12/06/ | Telephone | [facility] | Kady Cortez | Other (Procedure | | 2019 | | CARDIOLOGY BRANDYN Angeles, Screener Perfumer | [facility] ) | | | | [address] | | | | | | [place] | | | | | | [address] | | | | | | [phone] | | | +--------+ + + + [...] [place] | | | | | | [id number] | | | | | | | | +--------+---------+ + + + documented as of this encounter Visit Diagnoses Not on filedocumented in this encounter"
--- OUTSIDE RECORDS SUMMARY | ~2018-12-18 | XMS | Encounter Summary ---
Demographics + + + | Address | [address] | | | [place] [address] | + + + | Home Phone | | + + + | Preferred Language | Unknown | + + + | Marital Status | Single | + + + | Buddhist Affiliation | Unknown | + + + | Race | Unknown | + + + | Ethnic Group | Unknown | + + + Author + + + | Author | [facility] | | | and [place] | + + + | Organization | [facility] | | | [...] Providers + +------+ + | Care Inspector Advanced Composite Name | Role | Phone | + [...] | | | | obstructive | [address] | | | | | | sleep apnea | [place] | | | | | | | [place] | | | | | | | [address] | | | | | | | Phone: | | | | | | | [phone] | | | | | | | Fax: | | | | | | | [phone] | | + + + + + [...] | | | | | Procedures | [address] | [address] | | | | | OFFICE | CONFEDERATED | DR BARBER | | | | | VISIT | WAY | [facility] [place] | | | | | REGULAR | [place], | [address] Phone: | | | | | | [place] [address] | [phone] | | | | | | Phone: | Fax: | | | | | | [phone] | [phone] | | | | | | Fax: | | | | | | | [phone] | | +--------+--------+ + + + + Encounter Details +--------+---------+ + + + | Date | Type | Department | Care Team | Description | +--------+---------+ + + + | 10/06/ | Office | [facility] | Lakisha Kahn DO | Risk factors for | | 2019 | Visit | CARDIOLOGY [place] | [address] | obstructive sleep | | | | [address] | [place], [place] | apnea (Primary Dx); | | | | WAY [address] | [id number] | Coronary | | | | [place], [place] | | arteriosclerosis; | | | | [address] | | Essential | | | | [phone] | | hypertension; | | | | [...] 1000 PDT | + + + + documented in this encounter Progress Notes Lakisha Kahn DO - 10/06/2018 1000 PDT [facility] Cardiology Cardiology Follow Up Note Reason for [...] establish care. He was previously followed at [facility]. He was last seen t here on 11/01/2017 for preoperative risk stratification for an upcoming gallbladder surgery. He has a history of a NSTEMI in April 2017, coronary angiography demonstrated severe coronar y artery disease, the films were reviewed by the interventional team at [facility] and it was deem ed that his [...] He still has the cholecystotomy tube in [facility]. He has been referred to cardiac rehab and went for his first session last week. Unfortun ately, he could only find cardiac rehab in [place] which is an hour drive each way. [...] he was referred to cardiac rehab in [place]. He was felt to be high risk [...] able to get into cardiac rehab in [place], he does not want to travel to [facility] or [place] for cardiac rehab. His blood sugars have [...] got pulled out of place. He called h is surgeon in [place] and was told to cover it. He [...] are plans for an ERCP in the [facility] and possible cholecystectomy in the future. The [...] DVT, this may need to be shahab flores. Review of Systems Constitutional: positive for fatigue [...] of this patient. Primary Care Physician: SHAKIR Kahn DO documented in this encount er Plan of Treatment +--------+---------+ + + + | Date | Type | Specialty | Care Team | Description | +--------+---------+ + + + | 12/29/ | Office | Cardiology | Lakisha Kahn DO | | | 2019 | Visit | | [address] | | | | | | [place] | | | | | | [address] | | | | | | | | +--------+---------+ + + + + +--------+ + + | Name | Priori | Associated Diagnoses | Order Schedule | | | ty | | | + +--------+ + + | Ambulatory Referral to Sleep | Routin | Risk factors for | Ordered: 10/06/2018 | | Studies | e | obstructive sleep | | | | | apnea | | + +--------+ + + documented as of this encounter Visit Diagnoses + + | Diagnosis | + + | Risk factors for obstructive sleep apnea - Primary | + + | Coronary arteriosclerosis Coronary atherosclerosis of unspecified type of vessel, | | port heiden or graft | + + | Essential [...]
--- OUTSIDE RECORDS SUMMARY | ~2018-12-18 | XMS | Encounter Summary ---
Demographics + + + | Address | [address] | | | [place] [address] | + + + | Home Phone [...] [facility] | + + + | Organization | [facility] JSC Detsky [employer] [facility] | + + + | Address | Unknown | + + + | Phone | Unavailable | + + + Support + + +---------+ + | Name | Relationship | Address | Phone | + + +---------+ + | Mary Medellin | ECON | Unknown | | + + +---------+ + Care Team Providers + +------+ + | Care Office Associate Name | Role | Phone | + [...] | | | | | Stay [address] [facility] | [place], [place] | | | | | [address] | [address] | | | | | Mailcode: UHN65 | | | | | | [place]azar[place] | | | | | | [address] [place], [place] | | | | | | [address] | | | | | | [phone] | | | +--------+ + + + [...]
--- OUTSIDE RECORDS SUMMARY | ~2018-12-18 | XMS | Encounter Summary ---
Demographics + + + | Address | [address] | | | [place] [address] | + + + | Home Phone [...] Author | [facility] | + + + | Organization | [facility] StaphOff [employer] [facility] | [...] Team Providers + +------+ + | Care Child Adolescent Psychiatrist Name | Role | Phone | + [...] Request | | 2019 | | at [facility] [address] | [address] | | | | | [address] Mailcode: | [address] [place], | | | | | [address] | [place] [address] | | | | | Health and Healing, | [phone] | | | | | [facility] | | | | | | Floor [place], [place] | | | | | | [address] | | | | | | [phone] | | | +--------+--------+ + + + [...]
--- OUTSIDE RECORDS SUMMARY | ~2018-12-18 | XMS | Encounter Summary ---
Demographics + + + | Address | [address] [place] [address] | | | [place] [address] | + + + | Home Phone | | + + + | Preferred Language | Unknown | + + + | Marital Status | Single | + + + | Sabianist Affiliation | Unknown | + + + | Race | Unknown | + + + | Ethnic Group | Unknown | + + + Author + + + | Author | [facility] | | | and [place] | + + + | Organization | [facility] | | | and [...] Providers + +------+ + | Care Assistant Spa Manager Name | Role | Phone | [...] + + | 11/29/ | Refill | [facility] | Kady Cortez | Medication Refill | | 2019 | | CARDIOLOGY [place], Electrician Chief | | | | | [address] | | | | | | [address] | | | | | | [place], [place] | | | | | | [address] | | | | | | [phone] | | | +--------+--------+ + + + [...] [place] | | | | | | [address] | | | | | | | | +--------+---------+ + + + documented as of this encounter Visit Diagnoses Not on filedocumented in this encounter"
--- OUTSIDE RECORDS SUMMARY | ~2018-12-18 | XMS | Encounter Summary ---
Demographics + + + | Address | [address] | | | [place] [address] | + + + | Home Phone [...] | [facility] | + + + | Organization | [facility] [employer]av[employer] [facility] | + [...] Team Providers + +------+ + | Care Shipping & Receiving Lead Name | Role | Phone | [...] | | | | Mailcode: Center | [place], [place] | | | | | [facility] and | [address] | | | | | [facility] 2 | [phone] | | | | | [place], [place] | | | | | | [address] | | | | | | [phone] | | | +--------+ + + + [...]
--- OUTSIDE RECORDS SUMMARY | ~2018-12-18 | XMS | Encounter Summary ---
Demographics + + + | Address | [address] | | | [place] [address] | + + + | Home Phone [...] + + | Author | [facility] | + + + | Organization | [facility] My Team [employer] [facility] | + [...] Team Providers + +------+ + | Care Numerical Control Machine Operator Name | Role | Phone [...] Medical Records | | 2018 | | [place] [address] | [address] [address] [facility] | Review (04/23/17 HCV | | | | [address] | [address] | viral load) | | | | Mailcode: OC8D | [place], [place] | | | | | [facility] | [address] | | | | | and Maxine, | [phone] | | | | | [place] [address] | | | | | | [place], [place] | | | | | | [address] | | | | | | [phone] | | | +--------+ + + + [...]
--- OUTSIDE RECORDS SUMMARY | ~2018-12-18 | XMS | Encounter Summary ---
Demographics + + + | Address | [address] | | | [place] [address] | + + + | Home Phone [...] | Author | [facility] | + + + | Organization | [facility] 10X10 Room [facility] | + + + | Address | Unknown | + + + | Phone | Unavailable | + + + Support + + +---------+ + | Name | Relationship | Address | Phone | + + +---------+ + | Mary Medellin | ECON | Unknown | | + + +---------+ + Care Team Providers + +------+ + | Care Customer Trainer Name | Role | Phone | + +------+ + | Shakir Monzon MD | PCP | | + +------+ + Encounter Details +--------+ + + + + | Date | Type | Department | Care Team | Description | +--------+ + + + + | 05/14/ | Abstract | Cardiology General | Unknown . | | | 2018 | | at [facility] [address] | | | | | | [address] Mailcode: | | | | | | [facility] | | | | | | Health and Healing, | | | | | | | | | | | | Floor [place], [place] | | | | | | [address] | | | | | | [phone] | | | +--------+ + + + [...]
--- OUTSIDE RECORDS SUMMARY | ~2018-12-18 | XMS | Encounter Summary ---
Demographics + + + | Address | [address] | | | [place] [address] | + + + | Home Phone [...] Author + + + | Author | [facility] | + + + | Organization | [facility] EdgeConneX [facility] | + + + | Address | Unknown | + + + | Phone | Unavailable | + + + Support + + +---------+ + | Name | Relationship | Address | Phone | + + +---------+ + | Mary Medellin | ECON | Unknown | | + + +---------+ + Care Team Providers + +------+ + | Care Plate Shop Helper Name | Role | Phone | + +------+ + | Shakir Monzon MD | PCP | | + +------+ + Encounter Details +--------+ + + + + | Date | Type | Department | Care Team | Description | +--------+ + + + + | 08/07/ | Procedure | Diagnostic Imaging | | | | 2018 | Pass | Services at [facility] | | | | | | [address] | | | | | | [place] Mailcode: | | | | | | [address] [facility] | | | | | | [place], [place] | | | | | | [address] | | | | | | [phone] | | | +--------+ + + + [...]
--- OUTSIDE RECORDS SUMMARY | ~2018-12-18 | XMS | Encounter Summary ---
Demographics + + + | Address | [address] | | | [place] [address] | + + + | Home Phone [...] | Author | [facility] ScramblerMail [facility] | + + + | Organization | [facility] Phonitive - Touchalize [facility] | + [...] Team Providers + +------+ + | Care Slab Stripper Name | Role | Phone | + [...] | | | | PHY [address] | [place], [place] | [address] | | | | | CONTRAST (+ | [address] | [address] | | | | | [place]) | Phone: | Research | | | | | | [phone] | [place] | | | | | | Fax: | [place], [place] | | | | | | [phone] | [address] | | | | | | | Phone: | | | | | | | [phone] | | | | | | | Fax: | | | | | | | [phone] | +--------+--------+ + + + + Reason [...] | | | | CONTRAST (+ | [address] | [place] | | | | | [place]) | Phone: | Research | | | | | | [phone] | Center | | | | | | Fax: | [place], [place] | | | | | | [phone] | [address] | | | | | | | Phone: | | | | | | | [phone] | | | | | | | Fax: | | | | | | | [phone] | +--------+--------+ + + + + Encounter Details +--------+ + + + + | Date | Type | Department | Care Team | Description | +--------+ + + + + | 09/24/ | Hospital | Diagnostic Imaging | Moustapha Schafer MD | | | 2018 | Encounter | Services at [facility] | [address] | | | | | [address] | [place], | | | | | [place] Mailcode: | [place] [address] | | | | | [address] | [phone] | | | | | [facility] | | | | | | [place], [place] | | | | | | [address] | | | | | | [phone] | | | +--------+ + + + [...] Note | + + | Service Account, RadiMeilimei Res In Interface - 09/27/2017 9:10 AM [...] + + | [facility] | [address] | [place], [place] | | | HILL, POINT OF CARE | [facility] | [address] | | | TESTS | | | [...]
--- OUTSIDE RECORDS SUMMARY | ~2018-12-18 | XMS | Encounter Summary ---
Demographics + + + | Address | [address] | | | [place] [address] | + + + | Home Phone [...] [facility] viaForensics [facility] | + + + | Organization | [facility] Fooda Science [facility] | + + + | Address | Unknown | + + + | Phone | Unavailable | + + + Support + + +---------+ + | Name | Relationship | Address | Phone | + + +---------+ + | Mary Medellin | ECON | Unknown | | + + +---------+ + Care Team Providers + +------+ + | Care Marine Steam Fitter Helper Name | Role | Phone | [...] | | Stay [address] | [place] [address] | Gallbladder | | | | [address] | [phone] | perforation | | | | Mailcode: [id number] | | | | | | Vivian Mazariegos | | | | | | [address] [place], [place] | | | | | | [address] | | | | | | [phone] | | | +--------+---------+ + + + [...] ounces of clear liquid (apple juice, khadijah setuardo); however your surgery may be delayed a [...] or walk. Surgery check-in location: Admitting - [facility], ninth floor lob Surgery Check in [...] it is after office hours, call the [facility] circle cutting saw operator at [phone] and ask them to page him or [...] from the original. PREOPERATIVE CONSULT NOTE Author: Mairama Navarro MD Referring Physician: Dr. 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 No hx of COPD shortness of breath with exer tion no cough no stridor no wheezing no Recent Respiratory Infection Pt. Has no asthma no COPD Dx of sleep apnea Untreated Cardiovascular: Functional Capacity: Low - cyanosis, palpitations and syncope chest pain with exertion no CHF no hypertension CA D Sx medically managed past ME Last ME: < 1 year no valvular problems/murmurs no [...] RCA and PL-1 [facility] and "media" tab. Findings pertinent to [...] on beta ashlyn and followed by a rolling mill plugger. Estimated ASA class 4 ASSESSMENT and RECOMMENDATIONS: [...] or his SO Mary's mobile numbers (in Movet[place]). Thank you for the opportunity to contribute to this patient's care. Mariama Navarro MD [facility] CL[facility]IC [facility] PPB PREOPERATIVE MEDICINE CLINIC AT [facility] 4TH FLOOR DAY STAY [address] [place] [address] I spent time (60 [...] [facility] | [address] | [place] [address] | | | SERVICES, CORE | PARK [...] | | | LABORATORY | | | SALVADOREAN | | | SERVICES, | | | [...] | + + + + + | [facility] | [address] | [place] [address] | | | SERVICES, CORE | PARK [...] 5 | | | | | | ng/eV7-RV-Cyjpdxap 50 | | | | | | [...] | | | | | determined by [facility] | | | | | | Laboratories. See | | | | | | Compliance Statement B: | | | | | | GetQuik.MembraneX/CSPerformed | | | | | | by [employer],[address] | | | | | | [facility],[place] | | | | | | [address] | | | | | | [phone].[facility]. | | | | | | spanish fork hospitalJúnior MD, | | | | | [...] REG UNIV | | | | and 8-EK-ffdjyold is | | PTH - INTFC | | | | ametabolite of cotinine. | | | | | | After cessation from | | | | | | long-term orheavy use of | | | | | | nicotine products, | | | | | | 2-RS-plsyuqyw may | | | | | | [...] [facility] | [address] | [place], [place] | | | UNIV PTH - INTFC | | [address] | | + + + + + [...] [facility] | [address] | [place] [address] | | | SERVICES, CORE | PARK [...] | + + + + + | [facility] | [address] | [place] [address] | | | SERVICES, | [address] [...] | + + + + + | [facility] | [address] | [place] [address] | | | SERVICES, | [address] [...]
--- OUTSIDE RECORDS SUMMARY | ~2018-12-18 | XMS | Encounter Summary ---
Demographics + + + | Address | [address] | | | [place] [address] | + + + | Home Phone [...] Author | [facility] | + + + | Organization | [facility] [facility] | + + + | Address | Unknown | + + + | Phone | Unavailable | + + + Support + + +---------+ + | Name | Relationship | Address | Phone | + + +---------+ + | Mary Medellin | ECON | Unknown | | + + +---------+ + Care Team Providers + +------+ + | Care Bargain Table Clerk Name | Role | Phone | [...] | | | | | Procedures | [place], [place] | [address] for | | | | | CONSULT TO | [address] | Health and | | | | | GASTROENTERO | Phone: | Healing, | | | | | LOGY | [phone] | Building [address] | | | | | | Fax: | [place], [place] | | | | | | [phone] | [address] | | | | | | | Phone: | | | | | | | [phone] | | | | | | | Fax: | | | | | | | [phone] | +--------+--------+ + + + + Reason [...] | | | | Mailcode: Center | [place], [place] | | | | | for Health and | [address] | | | | | [place] [address] | [phone] | | | | | [place], [place] | | | | | | [address] | | | | | | [phone] | | | +--------+---------+ + + + [...] and spouse acknowledged understanding. Doretha Blake MD [facility] General Surgery documented in this e ncounter [...]
--- OUTSIDE RECORDS SUMMARY | ~2018-12-18 | XMS | Encounter Summary ---
Demographics + + + | Address | [address] | | | [place] [address] | + + + | Home Phone [...] Author | [facility] | + + + | Organization | [facility] Baloonr Science [facility] | + [...] Team Providers + +------+ + | Care Winchman/Crane Operator Name | Role | Phone | + +------+ + | Shakir Monzon MD | PCP | | + +------+ + Encounter Details +--------+ + + + + | Date | Type | Department | Care Team | Description | +--------+ + + + + | 08/07/ | Pharmacy | Specialty Pharmacy | | | | 2017 | Visit | Services [address] | | | | | | [address] | | | | | | [place], [place] | | | | | | [address] | | | | | | [phone] | | | +--------+ + + + [...]
--- OUTSIDE RECORDS SUMMARY | ~2018-12-18 | XMS | Encounter Summary ---
Demographics + + + | Address | [address] | | | [place] [address] | + + + | Home Phone [...] + | Author | [facility] [email or web address] Style[email or web address] [facility] | + + + | Organization | [facility] YouBeQB Science [facility] | + + + | Address | Unknown | + + + | Phone | Unavailable | + + + Support + + +---------+ + | Name | Relationship | Address | Phone | + + +---------+ + | Mary Medellin | ECON | Unknown | | + + +---------+ + Care Team Providers + +------+ + | Care Fiscal Officer Name | Role | Phone | [...] | (isosorbide ) | | | | [facility] [address] | [facility] [address] | | | | | Mailcode: [id number] | [place], [place] | | | | | [facility] | [address] | | | | | [address], | [phone] | | | | | [place] [address] | | | | | | [phone] | | | +--------+--------+ + + + [...]
--- OUTSIDE RECORDS SUMMARY | ~2018-12-18 | XMS | Encounter Summary ---
Demographics + + + | Address | [address] | | | [place] [address] | + + + | Home Phone | | + + + | Preferred Language | Unknown | + + + | Marital Status | Single | + + + | Caodaism Affiliation | NRP | + + + | Race | or | + + + | Ethnic Group | Not or | + + + Author + + + | Author | [facility] | + + + | Organization | [facility] [email or web address] Science [facility] [...] Team Providers + +------+ + | Care Map Clerk Name | Role | Phone | + +------+ + | Shakir Monzon MD | PCP | | + +------+ + Encounter Details +--------+ + + + + | Date | Type | Department | Care Team | Description | +--------+ + + + + | 12/01/ | Telephone | Dig[facility]ive [facility] | Bessy Solano, | | | 2018 | | [place] [address] | PA-C [address] | | | | | [address] | [address] | | | | | Mailcode: OC8D | [place], [place] | | | | | [place] for [facility] | [address] | | | | | and Maxine, | [phone] | | | | | [facility] | | | | | | [place], [place] | | | | | | [address] | | | | | | [phone] | | | +--------+ + + + [...]
--- OUTSIDE RECORDS SUMMARY | ~2018-12-18 | XMS | Encounter Summary ---
Demographics + + + | Address | [address] | | | [place] [address] | + + + | Home Phone [...] + | Author | [facility] | + + + | Organization | [facility] Scrip-t [facility] | + + + | Address | Unknown | + + + | Phone | Unavailable | + + + Support + + +---------+ + | Name | Relationship | Address | Phone | + + +---------+ + | Mary Medellin | ECON | Unknown | | + + +---------+ + Care Team Providers + +------+ + | Care Gem Cutter Name | Role | Phone | + [...] | | Center at [facility] [address] | [address] | | | | | [address] | [place], [place] | | | | | Mailcode: [place] | [address] | | | | | for Health and | [phone] | | | | | [facility] [address] | | | | | | [place], [place] | | | | | | [address] | | | | | | [phone] | | | +--------+ + + + [...]
--- OUTSIDE RECORDS SUMMARY | ~2018-12-18 | XMS | Encounter Summary ---
Demographics + + + | Address | [address] | | | [place] [address] | + + + | Home Phone [...] | Author | [facility] [employer] [facility] | + + + | Organization | [facility] [employer]pro [employer] Science [facility] | + + + | Address | Unknown | + + + | Phone | Unavailable | + + + Support + + +---------+ + | Name | Relationship | Address | Phone | + + +---------+ + | Mary Medellin | ECON | Unknown | | + + +---------+ + Care Team Providers + +------+ + | Care Apparatus Lineman Name | Role | Phone | + +------+ + | Shakir Monzon MD | PCP | | + +------+ + Encounter Details +--------+ + + + + | Date | Type | Department | Care Team | Description | +--------+ + + + + | 08/07/ | Pharmacy | Specialty Pharmacy | | | | 2017 | Visit | Services [address] | | | | | | [address] | | | | | | [place], [place] | | | | | | [address] | | | | | | [phone] | | | +--------+ + + + [...]
--- OUTSIDE RECORDS SUMMARY | ~2018-12-18 | XMS | Encounter Summary ---
Demographics + + + | Address | [address] | | | [place] [address] | + + + | Home Phone [...] Team Providers + +------+ + | Care Sludge Control Attendant Name | Role | Phone | [...] | Transcriptions | + + | Interface, Pigskin Trimmer In - 09/01/2005 3:08 AM PDT | | [address] | | [place], [place] [address] | | [facility] Hospital[facility] RECORDMed Rec No.: | | [id number] Date: 05/22/2002Name: [facility] SUR[facility]: | | Wilfredo Taylor M.D.ASSISTANTS: Nelson Skelton M.D.PREOPERATIVE | | DIAGNOSIS: Azoospermia.POSTOPERATIVE DIAGNOSIS: Azoospermia.OPERATIONS PERFORMED: | | 1. Left vasovasostomy. 2. Right epididymal vasostomy.SPECIMENS REMOVED: | | None.ANESTHESIA: Cord block.COMPLICATION: Not | | dictated.ESTIMATED BLOOD LOSS: Not dictated.INDICATIONS: Mr. Espinal | | had a vasectomy 12 years ago aftertwo children. He is from his first . He | | is now to [id number] woman who has never had children and [...] procedure well.Wilfredo Taylor M.D.SUMA/Jimbo: 05/22/2002T: | | 05/22/[id number] | |the right, no sperm was recovered [...] | |SUMA/narinder | | | | | |[id number] | + + documented in this encounter Visit Diagnoses Not on filedocumented in this encounter"
--- OUTSIDE RECORDS SUMMARY | ~2018-12-18 | XMS | Encounter Summary ---
Demographics + + + | Address | [address] | | | [place] [address] | + + + | Home Phone [...] | Author | [facility] | + + + | Organization | [facility] App[facility] | + + + | Address | Unknown | + + + | Phone | Unavailable | + + + Support + + +---------+ + | Name | Relationship | Address | Phone | + + +---------+ + | Mary Medellin | ECON | Unknown | | + + +---------+ + Care Team Providers + +------+ + | Care Quarry Supervisor Open Pit Name | Role | Phone | + [...] | | | | Mailcode: Center | [place], [place] | | | | | [facility] and | [address] | | | | | [place] [address] | [phone] | | | | | [place], [place] | | | | | | [address] | | | | | | [phone] | | | +--------+ + + + [...]
--- OUTSIDE RECORDS SUMMARY | ~2018-12-18 | XMS | Encounter Summary ---
Demographics + + + | Address | [address] | | | [place] [address] | + + + | Home Phone [...] | Author | [facility] [employer] [facility] | + + + | Organization | [facility] SHADO Science [facility] | + + + | Address | Unknown | + + + | Phone | Unavailable | + + + Support + + +---------+ + | Name | Relationship | Address | Phone | + + +---------+ + | Mary Medellin | ECON | Unknown | | + + +---------+ + Care Team Providers + +------+ + | Care Freight Flow Sales Leader Name | Role | Phone | + [...] | | 2018 | | Center at [facility] [address] | [address] | | | | | [address] | [address] | | | | | Mailcode: Center | [place], [place] | | | | | [facility] and | [address] | | | | | [place] [address] | [phone] | | | | | [place], [place] | | | | | | [address] | | | | | | [phone] | | | +--------+ + + + [...]
--- OUTSIDE RECORDS SUMMARY | ~2018-12-18 | XMS | Encounter Summary ---
Demographics + + + | Address | [address] | | | [place] [address] | + + + | Home Phone [...] + | Author | [facility] | + + + | Organization | [facility] | + + + | Address | Unknown | + + + | Phone | Unavailable | + + + Support + + +---------+ + | Name | Relationship | Address | Phone | + + +---------+ + | Mary Medellin | ECON | Unknown | | + + +---------+ + Care Team Providers + +------+ + | Care Distributing Clerk Name | Role | Phone | + +------+ + | Shakir Monzon MD | PCP | | + +------+ + Encounter Details +--------+------+ + + + | Date | Type | Department | Care Team | Description | +--------+------+ + + + | 10/13/ | Lab | Laboratory at [facility] | | Cirrhosis of liver | | 2018 | | [address] | | without ascites, | | | | [place], [place] | | unspecified hepatic | | | | [address] | | cirrhosis type (HCC) | | | | [phone] | | | +--------+------+ + + + [...] [facility] | [address] | [place] [address] | | | SERVICES, CORE | PARK [...] + + + + + | [facility] | [address] | [place] [address] | | | SERVICES, CORE | PARK [...] + + + + + | [facility] | [address] [facility] | [place] [address] | | | SERVICES, CORE | [address] [...] | | LABORATORY | | | [place] | | | SERVICES, | | | [...] AST CMNT | No Hemo | | [facility] | | | | | | LABORATORY [...] | + + + + + | [facility] | [address] | [place] [address] | | | SERVICES, CORE | [address] | | | + + + + + documented in this encounter Visit Diagnoses + + | Diagnosis | + + | Cirrhosis of liver without ascites, unspecified hepatic cirrhosis type (HCC) | + + documented in this encounter"
--- OUTSIDE RECORDS SUMMARY | ~2018-12-18 | XMS | Encounter Summary ---
Demographics + + + | Address | [address] | | | [place] [address] | + + + | Home Phone | | + + + | Preferred Language | Unknown | + + + | Marital Status | Single | + + + | Restorationist Affiliation | NRP | + + + | Race | or | + + + | Ethnic Group | Not or | + + + Author + + + | Author | [facility] [employer] [facility] | + + + | Organization | [facility] | + + [...] Providers + +------+ + | Care Client Integration Manager Name | Role | Phone | [...] Test Results | | 2017 | | [place] [address] [address] | PA-C [address] | | | | | [address] | [address] | | | | | Mailcode: OC8D | [place], [place] | | | | | [facility] | [address] | | | | | and Healing, | [phone] | | | | | Building [address] | | | | | | [place], [place] | | | | | | [address] | | | | | | [phone] | | | +--------+ + + + [...]
--- OUTSIDE RECORDS SUMMARY | ~2018-12-18 | XMS | Encounter Summary ---
Demographics + + + | Address | [address] | | | [place] [address] | + + + | Home Phone | | + + + | Preferred Language | Unknown | + + + | Marital Status | Single | + + + | Sabianism Affiliation | NRP | + + + | Race | or | + + + | Ethnic Group | Not or | + + + Author + + + | Author | [facility] | + + + | Organization | [facility] [facility] | + + + | Address | Unknown | + + + | Phone | Unavailable | + + + Support + + +---------+ + | Name | Relationship | Address | Phone | + + +---------+ + | Mary Medellin | ECON | Unknown | | + + +---------+ + Care Team Providers + +------+ + | Care Multi Needle Machine Operator Name | Role | Phone | + +------+ + | Shakir Monzon MD | PCP | | + +------+ + Encounter Details +--------+ + + + + | Date | Type | Department | Care Team | Description | +--------+ + + + + | 08/05/ | Procedure | Diagnostic Imaging | | | | 2018 | Pass | Services at [facility] | | | | | | [address] | | | | | | [place] Mailcode: | | | | | | [address] | | | | | | [facility] | | | | | | [place], [place] | | | | | | [address] | | | | | | [phone] | | | +--------+ + + + [...]
--- OUTSIDE RECORDS SUMMARY | ~2018-12-18 | XMS | Encounter Summary ---
Demographics + + + | Address | [address] | | | [place] [address] | + + + | Home Phone [...] + | Author | [facility] | + + + | Organization | [facility] | + [...] Providers + +------+ + | Care Wine Master Name | Role | Phone | [...] | | | | PHY WWO | [place], [place] | [address] | | | | | CONTRAST (+ | [address] | [place] | | | | | [place]) | Phone: | Research | | | | | | [phone] | [place] | | | | | | Fax: | [place], [place] | | | | | | [phone] | [address] | | | | | | | Phone: | | | | | | | [phone] | | | | | | | Fax: | | | | | | | [phone] | +--------+--------+ + + + + Reason [...] Dx) | | | | PPV [address] [facility] | [address] [place], | | | | | [facility] | [place] [address] | | | | | Mailcode: L223A | [phone] | | | | | [address] | | | | | | [address] [place], [place] | | | | | | [address] | | | | | | [phone] | | | +--------+---------+ + + + [...] Note | + + | Service Account, Reflex Systems Res In Interface - 09/27/2017 9:10 [...]
--- OUTSIDE RECORDS SUMMARY | ~2018-12-18 | XMS | Encounter Summary ---
Demographics + + + | Address | [address] | | | [place] [address] | + + + | Home Phone [...] + + | Author | [facility] | + + + | Organization | [facility] | + + + | Address | Unknown | + + + | Phone | Unavailable | + + + Support + + +---------+ + | Name | Relationship | Address | Phone | + + +---------+ + | Mary Medellin | ECON | Unknown | | + + +---------+ + Care Team Providers + +------+ + | Care County Manager Name | Role | Phone | + +------+ + | Shakir Monzon MD | PCP | | + +------+ + Encounter Details +--------+ + + + + | Date | Type | Department | Care Team | Description | +--------+ + + + + | 04/26/ | Document-Sc | Health Information | Unknown . | | | 2018 | anned | Services [address] | | | | | | [address] | | | | | | Mailcode: OP17A | | | | | | [facility] | | | | | | [place], [place] | | | | | | [address] | | | | | | [phone] | | | +--------+ + + + [...]
--- OUTSIDE RECORDS SUMMARY | ~2018-12-18 | XMS | Encounter Summary ---
Demographics + + + | Address | [address] | | | [place] [address] | + + + | Home Phone [...] Author + + + | Author | [facility] | + + + | Organization | [facility] [employer] [facility] | + [...] Providers + +------+ + | Care Field Marketing Associate Name | Role | Phone | [...] | | | | | CARDIAC | [place], [place] | [address] | | | | | [facility] | [address] | for Health | | | | | | Phone: | and Healing, | | | | | | [phone] | Building [address] | | | | | | Fax: | [place], [place] | | | | | | [phone] | [address] | | | | | | | Phone: | | | | | | | [phone] | | | | | | | Fax: | | | | | | | [phone] | + +--------+ + + + + [...] Health and | | | | | MATERIAL PLANNING ANALYST | [address] | Healing, | | | | | MS REMOVAL | Phone: | Building [address] | | | | | GALLBLADDER | [phone] | [place], [place] | | | | | MS REMV | Fax: | [address] | | | | | GALLBLADDER | [phone] | Phone: | | | | | W | | [phone] | | | | | CHOLANGIOGRA | | Fax: | | | | | M MS REMV | | [phone] | | | | | GALLBLADDER, | | | | | | | EXPLOR | | | | | | | COMMON DUCT | | | | | | | MS REMV | | | | | | | GB,W | | | | | | | CHOLEDOCHOEN | | | | | | | TEROSTOMY | | | | | | | MS | | | | | | | ANAST,JACINTO-E | | | | | | | N-[place],EXTRAHEP | | | | | | | TO GI TRCT | | | | | | | MS | | | | | | | ANAST,JACINTO-E | | | | | | | N-[place],INTRAHEP | | | | | | | TO GI TRCT | | | | | | | MS UPPER GI | | | | | | | | | | | | | | ENDOSCOPY,DI | | | | | | | AGNOSIS MS | | | | | | | UPPER GI | | | | | | | ENDOSCOPY,BI | | | | | | | OPSY MS | | | | | | | PLACE PERCUT | | | | | | | GASTROSTOMY | | | | | | | TUBE MS | | | | | | | REMOVAL | | | | | | | STOMACH,TOTA | | | | | | | L MS | | | | | | | REMOVAL | | | | | | | STOMACH,JACINTO | | | | | | | -EN-Y MS | | | | | | | ERCP,W/REMOV | | | | | | | AL | | | | | | | STONE,DAVID/PA | | | | | | | NCR DUCTS | | | | | | | MS EXCIS | | | | | | | BILE DUCT | | | | | | | TUMOR,EXTRAH | | | | | | | EPATIC MS | | | | | | | EXCIS BILE | | | | | | | DUCT | | | | | | | TUMOR,INTRAH | | | | | | | EPATIC MS | | | | | | | LAP,ESOPHAGU | | | | | | | S,OTHER PROC | | | | | | | [id number] | | | | | | | (like code | | | | | | | [phone] | | | | | | | or [address]) | | | + +--------+ + + [...] | | | Cholelithias | [place] | [address] | | | | | es | [place] | Ave | | | | | | Health | Mailcode: | | | | | | [place] | [facility] | | | | | | [facility] | Health and | | | | | | Confed[place] | Healing, | | | | | | Way | Building [address] | | | | | | [place], | [place], [place] | | | | | | [place] [address] | [address] | | | | | | Phone: | Phone: | | | | | | [phone] | [phone] | | | | | | Fax: | Fax: | | | | | | [phone] | [phone] | + +--------+ + + + + [...] | | | | Mailcode: Center | [place], [place] | | | | | for Health and | [address] | | | | | [facility], [facility] 2 | [phone] | | | | | [place], [place] | | | | | | [address] | | | | | | [phone] | | | +--------+---------+ + + + [...] 02/02/2018 9:10 AM PSTPATIENT SURGERY INFORMATI ON [facility] General Surgery Office Toll-free: ext [phone] Surgery Date: TBD Procedure: Laparoscopic cholecystectomy, possibly [...] the surgery. Please see the list below, [facility] has a list of products that contain [...] please call the General Surgery Office at [phone] for [id number]. PARKING Parking for patients and visitors is available in the [facility] Parking structure located across from the emergency department. Patient parking is available on level 1 and 3. Mete red parking is available on the top level. CHECKING IN FOR SURGERY For Hospital Admission (in-patient) you will check in on the day of surgery [facility] located on the 9th floor of [facility] TRANSPORTATION You will require transportation home on the day of discharge. Pain medications and physica l activity restrictions may limit your ability to drive safely. CANCELLING YOUR PROCEDURE Please notify the general surgery office at [phone] as soon as possible should you nee [...] prior to your surgery. PRODUCTS CONTAINING ASPIRIN Teresita-[place], Anacin, Anexsia with Codeine, Andynos, Aspirin, Aspirin suppositories, Ascrip tin, Aspergum, Axotal, B-A-C, Baby Aspirin, Chalino, BC Powder, Bexophene, Buffaprin, Bufferin , Buffinol, Cama-Arthritis Strength, Congespirin, [place], Coricidin, Damason, Darvon, Dristan, Monica-Gesic, Digel, Dolprin #3 Tablets, Donatab, Doxaphene, Duragesic, Easprin, Ecotrin, Emag rin Forte, Emiprin, Emprazil, Equagesic, Equazine M, Excedrin, Fiogesic, Fiorgen PH, Fiorice t, Fiorinal, 4-Way Cold Tablet Gemnisyn, Indocin, Liquprin, Lortab ASA, Magnaprin, Marnal, Meprobamate, Midol, Momentum, N orgesic, [place], Orphengesic, Pabalate, P-A-C, Percodan, Presalin, Robaxasil, Roxiprin, Barry eto, Salocol SK-65 Compound, Sine-Aid, Sine-Off,, Barry, Supac, Talwin Compound, Trigesic, Tolectin , Traiminicin, Vanquish, ZORprin, Zomax PRODUCTS CONTAINING IBUPROFEN Advil, Aleve, Haltran, Medipren, Midol, Motrin, Naproxyn, Nuprin, Rufen OTHER PRODUCTS WHICH MAY PROMOTE BLEEDING Vitamin E, Gingko Biloba, Marine Fatty Acids, [place]-3 Fish Oil SupplementsElectronically si gned by Amalia Kearney RN at 02/02/2018 10:03 AM PST documented in this encounter Progress Notes Clinton Morillo MD - 02/02/2018 9:10 AM PSTDiscussed with resident Clinton Morillo M.D. [facility] ([facility]) Professor and Vice-Exhaust Emissions Automotive Technician of Surgery The Mirza Gamboa Chair for Pancreatic Disease Research [facility] Cancer Bettles Field Cell phone: [phone] / [facility] provider's line [phone]. email: [email or web address] MD - 1 04/05/2017 9:10 AM PST The Department of Surgery Clinic Note Author: Sophie Nicole MD Attending Physician: Clinton Morillo MD 02/02/2018, 8:56 AM Patient Name: Bret Espinal Jr. : 1955 Medical Record: [id number] ID: Bret Espinal Jr. is a 62 [...] at an OSH and transfe rred to [facility] for further care in July. During this hospitalization he was septic with some a cute hepatic injury and required a cholecystostomy tube to control his sepsis. He recovered and has been at home with the cholecystostomy tube. He had CHF during his admission in July with a ruptured gallbladder. Due to his severe systemic disease and cirrhosis, he was referr ed back to [facility] for surgery and was last seen in [...] He was evaluated by cardiology here at [facility] in May and Oct 2017, and his [...] an echocardiogram on October 27, 2017 at [facility] which re ports normal LV size and [...] the above medical record. Sophie Nicole MD [facility] Advanced GI & Minimally Invasive Surgery Fellow [facility] [place] Pager [phone] documented in this enco unter Plan of [...] | | | LABORATORY | | | MALAYSIAN | | | SERVICES, | | | [...] | + + + + + | [facility] | [address] | [place] [address] | | | SERVICES, CORE | [address] [...] 5 | | | | | | ng/dW8-LN-Rcadyezf 50 | | | | | | [...] | | | | | determined by [facility] | | | | | | Laboratories. See | | | | | | Compliance Statement B: | | | | | | [email or web address] | | | | | | by [employer],[address] | | | | | | [facility],[place] | | | | | | [address] | | | | | | [phone]. | | | | | | comJúnior [...] REG UNIV | | | | and 5-WI-onnrfknz is | | PTH - INTFC | | | | ametabolite of cotinine. | | | | | | After cessation from | | | | | | long-term orheavy use of | | | | | | nicotine products, | | | | | | 3-VD-qeitoiqv may | | | | | | [...] [facility] | [address] | [place], [place] | | | UNIV PTH - INTFC | | [address] | | + + + + + [...] LINDA LAGUERRE | [address] | [place] [address] | | | SERVICES, J[address] | [address] | | | + + + + + documented in this encounter Visit Diagnoses + + | Diagnosis | + + | Gallbladder perforation - Primary Perforation of gallbladder | + + documented in this encounter
--- OUTSIDE RECORDS SUMMARY | ~2018-12-18 | XMS | Encounter Summary ---
Demographics + + + | Address | [address] | | | [place] [address] | + + + | Home Phone [...] + + | Author | [facility] [employer] [facility] | + + + | Organization | [facility] [employer] [facility] [...] Team Providers + +------+ + | Care Dean Of Men Name | Role | Phone | + [...] | | | | | unspecified | [address] | and Healing, | | | | | whether | Phone: | Building 2 | | | | | ascites | [phone] | [place], [place] | | | | | present | Fax: | [address] | | | | | (HCC) | [phone] | Phone: | | | | | Procedures | | [phone] | | | | | CONSULT TO | | Fax: | | | | | HEPATOLOGY | | [phone] | +--------+--------+ + + + + Encounter Details +--------+---------+ + + + | Date | Type | Department | Care Team | Description | +--------+---------+ + + + | 11/03/ | Office | Digestive Health | Marc Solano, | Cirrhosis of liver | | 2018 | Visit | Center at [facility] [address] | PA-C [address] | without ascites, | | | | [address] | [address] | unspecified hepatic | | | | Mailcode: OC8D | [place], [place] | cirrhosis type (HCC) | | | | [place] [facility] | [address] | (Primary Dx); | | | | and Healing, | [phone] | Gallbladder | | | | Building [address] | | perforation | | | | [place], [place] | | | | | | [address] | | | | | | [phone] | | | +--------+---------+ + + + [...] Note reviewed. Paul Rice MD, MS, JACK forge tender Director of Clinical Hepatology [facility] Division of Gastroenterology/Hepatology Marc Villar [...] and is currently bein g evaluated by [facility]// Ilia's team for cholecystectomy [...] ~2015 per patient 5. 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 MARC SOLANO PA-C [facility] AT [facility] 6TH FLOOR [address] Mailcode: [place] [address] documented in this encounter Plan [...]
--- OUTSIDE RECORDS SUMMARY | ~2018-12-18 | XMS | Encounter Summary ---
Demographics + + + | Address | [address] | | | [place] [address] | + + + | Home Phone [...] + | Author | [facility] Kids [facility] | + + + | Organization | [facility] [employer] [facility] | + + + | Address | Unknown | + + + | Phone | Unavailable | + + + Support + + +---------+ + | Name | Relationship | Address | Phone | + + +---------+ + | Mary Medellin | ECON | Unknown | | + + +---------+ + Care Team Providers + +------+ + | Care Oil Pipeline Operator Name | Role | Phone | [...] | | | | | | [address] [place], [place] | | | | | | [address] | | | | | | [phone] | | | +--------+ + + + [...]
--- OUTSIDE RECORDS SUMMARY | ~2018-12-18 | XMS | Encounter Summary ---
Demographics + + + | Address | [address] | | | [place] [address] | + + + | Home Phone [...] + + | Author | [facility] [place] [employer] [facility] | + + + | Organization | [facility] [place] [facility] [...] Team Providers + +------+ + | Care Satellite Technician Name | Role | Phone | [...] | | | | [address] | [facility] | | | | | Mailcode: Center | [place], [place] | | | | | [facility] and | [address] | | | | | [facility], [facility] 2 | [phone] | | | | | [place], [place] | | | | | | [address] | | | | | | [phone] | | | +--------+ + + + [...]
--- OUTSIDE RECORDS SUMMARY | ~2018-12-18 | XMS | Encounter Summary ---
Demographics + + + | Address | [address] | | | [place] [address] | + + + | Home Phone [...] + | Author | [facility] | + + + | Organization | [facility] [employer] [facility] | + + + | Address | Unknown | + + + | Phone | Unavailable | + + + Support + + +---------+ + | Name | Relationship | Address | Phone | + + +---------+ + | Mary Medellin | ECON | Unknown | | + + +---------+ + Care Team Providers + +------+ + | Care Inpatient Services Rn Name | Role | Phone | + [...] 2018 | | Center at [facility] [address] | PA-C [address] | Review | | | | [address] | [address] [facility] | | | | | Mailcode: OC8D | [place], [place] | | | | | [facility] | [address] | | | | | and Healing, | [phone] | | | | | Building 2 | | | | | | [place], [place] | | | | | | [address] | | | | | | [phone] | | | +--------+ + + + [...]
--- OUTSIDE RECORDS SUMMARY | ~2018-12-18 | XMS | Encounter Summary ---
Demographics + + + | Address | [address] | | | [place] [address] | + + + | Home Phone [...] + + | Author | [facility] [employer] [facility] | + + + | Organization | [facility] [employer] [facility] | + + + | Address | Unknown | + + + | Phone | Unavailable | + + + Support + + +---------+ + | Name | Relationship | Address | Phone | + + +---------+ + | Mary Medellin | ECON | Unknown | | + + +---------+ + Care Team Providers + +------+ + | Care Improvement Spec Name | Role | Phone | + [...] | | | | Mailcode: Center | [place], [place] | | | | | [facility] and | [address] | | | | | [facility] 2 | [phone] | | | | | [place], [place] | | | | | | [address] | | | | | | [phone] | | | +--------+ + + + [...]
--- OUTSIDE RECORDS SUMMARY | ~2018-12-18 | XMS | Encounter Summary ---
Demographics + + + | Address | [address] | | | [place] [address] | + + + | Home Phone | | + + + | Preferred Language | Unknown | + + + | Marital Status | Single | + + + | Hindu Affiliation | Unknown | + + + | Race | Unknown | + + + | Ethnic Group | Unknown | + + + Author + + + | Author | [facility] | | | and [place] | + + + | Organization | [facility] [...] Team Providers + +------+ + | Care Textiles Printer Name | Role | Phone | [...] + + | 11/24/ | Telephone | [facility] | Kady Cortez | Nu (Patient | | 2019 | | CARDIOLOGY KAVYA Angeles, Ear Flap Binder | update. ) | | | | [address] | | | | | | [address] [place] | | | | | | [address] | | | | | | [phone] | | | +--------+ + + + [...] [place] | | | | | | [id number] | | | | | | | | +--------+---------+ + + + documented as of this encounter Visit Diagnoses Not on filedocumented in this encounter"
--- OUTSIDE RECORDS SUMMARY | ~2018-12-18 | XMS | Encounter Summary ---
Demographics + + + | Address | [address] | | | [place] [address] | + + + | Home Phone [...] + | Author | [facility] | + + + | Organization | [facility] [employer] [facility] | + [...] Team Providers + +------+ + | Care Family Consumer Scientist Name | Role | Phone | [...] | | Center at [facility] [address] | [address] | | | | | [address] | [place], [place] | | | | | Mailcode: [place] | [address] | | | | | for Health and | [phone] | | | | | [facility] 2 | | | | | | [place], [place] | | | | | | [address] | | | | | | [phone] | | | +--------+ + + + [...]
--- OUTSIDE RECORDS SUMMARY | ~2018-12-18 | XMS | Encounter Summary ---
Demographics + + + | Address | [address] | | | [place] [address] | + + + | Home Phone [...] Author | [facility] | + + + | Organization | [facility] [employer] [facility] [...] Team Providers + +------+ + | Care Conservation Technician Name | Role | Phone | [...] Rd | | | | | | [place], [place] | | | | | | [address] | | | +--------+ + + + [...]
--- OUTSIDE RECORDS SUMMARY | ~2018-12-18 | XMS | Encounter Summary ---
Demographics + + + | Address | [address] | | | [place] [address] | + + + | Home Phone [...] + | Author | [facility] | + + + | Organization | [facility] [facility] | + + + | Address | Unknown | + + + | Phone | Unavailable | + + + Support + + +---------+ + | Name | Relationship | Address | Phone | + + +---------+ + | Mary Medellin | ECON | Unknown | | + + +---------+ + Care Team Providers + +------+ + | Care Regional Coordinator Name | Role | Phone | [...] | | | | AND PELVIS | [facility], [place] | [place] | | | | | [place] | [address] | [address] | | | | | [place] | Phone: | Phone: | | | | | [place] | [phone] | [phone] | | | | | ABDOMEN&PELV | Fax: | Fax: | | | | | [place] | [phone] | [phone] | | | | | W/CONTRAST | [...] | | | Procedures | Renato | [facility] | | | | | CT ABDOMEN | [address] | [address] [place], | | | | | AND PELVIS | [facility], [place] | [place] | | | | | [place] | [address] | [address] | | | | | [place] | Phone: | Phone: | | | | | [place] | [phone] | [phone] | | | | | ABDOMEN&PELV | Fax: | Fax: | | | | | [place] | [phone] | [phone] | | | | | W/CONTRAST | | | +--------+--------+ + + + + Encounter Details +--------+ + + + + | Date | Type | Department | Care Team | Description | +--------+ + + + + | 08/13/ | Hospital | Diagnostic Imaging | Jessika Allen, | | | 2018 | Encounter | Services at [facility] | [address] | | | | | [address] | [address] | | | | | [address] Mailcode: | [place], [place] | | | | | [address] [facility] | [address] | | | | | [place], [place] | [phone] | | | | | [address] | | | | | | [phone] | | | +--------+ + + + [...]
--- OUTSIDE RECORDS SUMMARY | ~2018-12-18 | XMS | Encounter Summary ---
Demographics + + + | Address | [address] | | | [place] [address] | + + + | Home Phone [...] + + + | Author | [facility] | + + + | Organization | [facility] [employer] [facility] | + + + | Address | Unknown | + + + | Phone | Unavailable | + + + Support + + +---------+ + | Name | Relationship | Address | Phone | + + +---------+ + | Mary Medellin | ECON | Unknown | | + + +---------+ + Care Team Providers + +------+ + | Care Payroll Coordinator Name | Role | Phone | [...] 2019 | | Center at [facility] [address] | [address] | | | | | [address] | [address] | | | | | Mailcode: Center | [place], [place] | | | | | for Health and | [address] | | | | | [facility] 2 | [phone] | | | | | [place], [place] | | | | | | [address] | | | | | | [phone] | | | +--------+ + + + [...]
--- OUTSIDE RECORDS SUMMARY | ~2018-12-18 | XMS | Encounter Summary ---
Demographics + + + | Address | [address] | | | [place] [address] | + + + | Home Phone [...] | Author | [facility] [facility] | + + + | Organization | [facility] [employer] [facility] | [...] Providers + +------+ + | Care Nursing Educator Name | Role | Phone | + [...] | | | | PHY [address]WO | [place], [place] | [address] | | | | | CONTRAST (+ | [address] | Cherrie | | | | | [place]) | Phone: | Research | | | | | | [phone] | [place] | | | | | | Fax: | [place], [place] | | | | | | [phone] | [address] | | | | | | | Phone: | | | | | | | [phone] | | | | | | | Fax: | | | | | | | [phone] | +--------+--------+ + + + + Reason [...] Dx) | | | | P[address] [facility] | [address] [place], | | | | | [facility] | [place] [address] | | | | | Mailcode: L[address]A | [phone] | | | | | [address] | | | | | | [address] [place], [place] | | | | | | [address] | | | | | | [phone] | | | +--------+---------+ + + + [...] Note | + + | Service Account, Dezineforce Res In Interface - 09/27/2017 9:10 AM [...]
--- OUTSIDE RECORDS SUMMARY | ~2018-12-18 | XMS | Encounter Summary ---
Demographics + + + | Address | [address] | | | [place] [address] | + + + | Home Phone [...] + | Author | [facility] | + + + | Organization | [facility] [employer] [employer] [facility] | + + + | Address | Unknown | + + + | Phone | Unavailable | + + + Support + + +---------+ + | Name | Relationship | Address | Phone | + + +---------+ + | Mary Medellin | ECON | Unknown | | + + +---------+ + Care Team Providers + +------+ + | Care Research Electrician Name | Role | Phone | + [...] | | | | | GI | [place], [place] | [address] | | | | | PROCEDURE: | [address] | [place] | | | | | ERCP / | Phone: | [address] | | | | | BILIARY | [phone] | [place], | | | | | [place] | Fax: | [place] [address] | | | | | | [phone] | Phone: | | | | | | | [phone] | | | | | | | Fax: | | | | | | | [phone] | +--------+--------+ + + + + Reason [...] | | | | [address] | [facility] | | | | | Mailcode: Center | [place], [place] | | | | | [facility] and | [address] | | | | | [facility], [facility] 2 | [phone] | | | | | [place], [place] | | | | | | [address] | | | | | | [phone] | | | +--------+ + + + [...]
--- OUTSIDE RECORDS SUMMARY | ~2018-12-18 | XMS | Encounter Summary ---
Demographics + + + | Address | [address] | | | [place] [address] | + + + | Home Phone [...] + + + | Author | [facility] | + + + | Organization | [facility] [employer] [facility] | + + + | Address | Unknown | + + + | Phone | Unavailable | + + + Support + + +---------+ + | Name | Relationship | Address | Phone | + + +---------+ + | Mary Medellin | ECON | Unknown | | + + +---------+ + Care Team Providers + +------+ + | Care Salon Designer Name | Role | Phone | [...] [address] | [address] [place], | | | | | [address] | [place] [address] | | | | | Mailcode: [address] | [phone] | | | | | Nikkie Mazariegos | | | | | | [address] [place], [place] | | | | | | [address] | | | | | | [phone] | | | +--------+ + + + [...]
--- OUTSIDE RECORDS SUMMARY | ~2018-12-18 | XMS | Encounter Summary ---
Demographics + + + | Address | [address] | | | [place] [address] | + + + | Home Phone [...] + | Author | [facility] | + + + | Organization | [facility] [facility] | + + + | Address | Unknown | + + + | Phone | Unavailable | + + + Support + + +---------+ + | Name | Relationship | Address | Phone | + + +---------+ + | Mary Medellin | ECON | Unknown | | + + +---------+ + Care Team Providers + +------+ + | Care Spaghetti Press Helper Name | Role | Phone | [...] Lab Order | | 2017 | | [place] at [facility] [address] | [address] | | | | | [address] | [address] | | | | | Mailcode: OC8D | [place], [place] | | | | | [facility] | [address] | | | | | and Maxine, | [phone] | | | | | Building [address] | | | | | | [place], [place] | | | | | | [address] | | | | | | [phone] | | | +--------+ + + + [...]
--- OUTSIDE RECORDS SUMMARY | ~2018-12-18 | XMS | Encounter Summary ---
Demographics + + + | Address | [address] | | | [place] [address] | + + + | Home Phone | | + + + | Preferred Language | Unknown | + + + | Marital Status | Single | + + + | Catholic Affiliation | NRP | + + + | Race | or | + + + | Ethnic Group | Not or | + + + Author + + + | Author | [facility] [employer]'s what's in [facility] | + + + | Organization | [facility] [employer] [facility] | + [...] Team Providers + +------+ + | Care Warper Tender Name | Role | Phone | [...] Ave | | | | | | [place], [place] | Mailcode: | | | | | | [address] | OC8D Center | | | | | | Phone: | for Health | | | | | | [phone] | and Healing, | | | | | | Fax: | Building 2 | | | | | | [phone] | [place], [place] | | | | | | | [address] | | | | | | | Phone: | | | | | | | [phone] | | | | | | | Fax: | | | | | | | [phone] | +--------+--------+ + + + + Encounter Details +--------+---------+ + + + | Date | Type | Department | Care Team | Description | +--------+---------+ + + + | 10/14/ | Office | Digestive Health | Bessy Solano, | Hepatic cirrhosis, | | 2017 | Visit | Center at [facility] [address] | [address] | unspecified hepatic | | | | [address] | [address] | cirrhosis type (HCC) | | | | Mailcode: OC8D | [place], [place] | (Primary Dx); | | | | [facility] | [address] | Chronic hepatitis C | | | | and Healing, | [phone] | without hepatic coma | | | | Building [address] | | (HCC) | | | | [place], [place] | | | | | | [address] | | | | | | [phone] | | | +--------+---------+ + + + [...] and ETOH abstinence. Paul Rice MD, MS computer programmer analyst Director of Clinical Hepatology [facility] Division of Gastroenterology/Hepatology Bessy Villar PA-C [...] ~2014 per patient 4. 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 Bessy Solano PA-C [facility] 6TH FLOOR [address] Mailcode: [place] [address] Counseling Time: I spent more [...] + + + | SHAUN | [address] | [place] [address] | | | DIAGNOSTIC | [address] [...] [facility] | [address] | [place] [address] | | | SERVICES, CORE | PARK [...] modified from | [facility] | | original mechanical assembler's approved specifications. The performance | LABORATORY | | of the VARNISH MAKER HIV Combo test, with or without confirmation, was not | SERVICES, | | tested in pediatric patients less than 2 years of age. [facility] | SPECIAL IMM + | | guidelines [...] | + + + + + | [facility] | [address] | [place] [address] | | | SERVICES, SPECIAL | PARK [...] - | | | | | | [facility] | | + + + + + + + + | Specimen | + + | Blood - Blood | | (substance) | + + + + + + + | Performing | Address | City/State/Zipcode | Phone Number | | Organization | | | | + + + + + | FLOOD - AIRPORT - | [address] | [place] [address] | | | [place] | | | [...] [facility] | [address] | [place] [address] | | | SERVICES, CORE | PARK [...] by | | | | | | [employer],[address] | | | | | | Marky Tapia, [facility],[place] | | | | | | [address] | | | | | | [phone].[email or web address]. | | | | | | Júnior [...] [facility] | [address] | [place], [place] | | | [facility] | | [address] | | + + + + + [...] [facility] | [address] | [place] [address] | | | SERVICES, CORE | PARK [...] + + + + + | [facility] | [address] | [place] [address] | | | SERVICES, CORE | PARK [...] LINDA LAGUERRE | [address] | [place] [address] | | | SERVICES, CORE | PARVEEN [...]
--- OUTSIDE RECORDS SUMMARY | ~2018-12-18 | XMS | Encounter Summary ---
Demographics + + + | Address | [address] | | | [place] [address] | + + + | Home Phone [...] + | Author | [facility] | + + + | Organization | [facility] [employer] [facility] | + + [...] Providers + +------+ + | Care Box Turner Name | Role | Phone | + [...] | | 2018 | | Center at [facility] [address] | PA-C [address] | Review | | | | [address] | [address] [facility] | | | | | Mailcode: OC8D | [place], [place] | | | | | [facility] | [address] | | | | | and Healing, | [phone] | | | | | Building [address] | | | | | | [place], [place] | | | | | | [address] | | | | | | [phone] | | | +--------+ + + + [...]
--- OUTSIDE RECORDS SUMMARY | ~2018-12-18 | XMS | Encounter Summary ---
Demographics + + + | Address | [address] | | | [place] [address] | + + + | Home Phone | | + + + | Preferred Language | Unknown | + + + | Marital Status | Single | + + + | Christianity Affiliation | Unknown | + + + [...] Team Providers + +------+ + | Care Home Advisor Name | Role | Phone | [...] + + | 11/29/ | Refill | [facility] | Kady Cortez | Medication Refill | | 2019 | | CARDIOLOGY [place], Equal Opportunity Specialist | | | | | [address] | | | | | | [address] | | | | | | [place], [place] | | | | | | [address] | | | | | | [phone] | | | +--------+--------+ + + + [...] [place] | | | | | | [address] | | | | | | | | +--------+---------+ + + + documented as of this encounter Visit Diagnoses Not on filedocumented in this encounter"
--- OUTSIDE RECORDS SUMMARY | ~2018-12-18 | XMS | Encounter Summary ---
Demographics + + + | Address | [address] | | | [place] [address] | + + + | Home Phone [...] Team Providers + +------+ + | Care Air Defence Officer Name | Role | Phone | [...] | | | | | | | [place] | | | | | | | [address] | | | | | | | Phone: | | | | | | | [phone] | | | | | | | Fax: | | | | | | | [phone] | | + + + + + [...] | | | | | Procedures | [address] | [address] | | | | | OFFICE | [address]ATED | DR [address] | | | | | VISIT | WAY | [facility] [place] | | | | | REGULAR | [place], | [address] Phone: | | | | | | [place] [address] | [phone] | | | | | | Phone: | Fax: | | | | | | [phone] | [phone] | | | | | | Fax: | | | | | | | [phone] | | +--------+--------+ + + + + Encounter Details +--------+---------+ + + + | Date | Type | Department | Care Team | Description | +--------+---------+ + + + | 10/06/ | Office | [facility] | Laiksha Kahn DO | Risk factors for | | 2019 | Visit | CARDIOLOGY [place] | [address] | obstructive sleep | | | | [address] | [place], [place] | apnea (Primary Dx); | | | | [address] | [id number] | Coronary | | | | [place], [place] | | arteriosclerosis; | | | | [address] | | Essential | | | | [phone] | | hypertension; | | | | [...] Lakisha Kahn DO - 10/06/2018 1000 PDT [facility] Cardiology Cardiology Follow Up Note Reason [...] establish care. He was previously followed at [facility]. He was last seen t here on 11/01/2017 for preoperative risk stratification for an upcoming gallbladder surgery. He has a history of a NSTEMI in April 2017, coronary angiography demonstrated severe coronar y artery disease, the films were reviewed by the interventional team at [facility] and it was deem ed that [...] He still has the cholecystotomy tube in [facility]. He has been referred to cardiac rehab and went for his first session last week. Unfortun ately, he could only find cardiac rehab in [place] which is an hour drive each way. [...] he was referred to cardiac rehab in [place]. He was felt to be high risk [...] able to get into cardiac rehab in [place], he does not want to travel to [facility] or [place] for cardiac rehab. His blood sugars have [...] place. He called h is surgeon in [place] and was told to cover it. He [...] are plans for an ERCP in the [facility] and possible cholecystectomy in the future. [...] [place] | | | | | | [address] | | | | | | | [...] of unspecified type of vessel, | | [place] or graft | + + | Essential [...]
--- OUTSIDE RECORDS SUMMARY | ~2018-12-18 | XMS | Encounter Summary ---
Demographics + + + | Address | [address] | | | [place] [address] | + + + | Home Phone [...] + + + | Author | [facility] | + + + | Organization | [facility] [facility] | + + + | Address | Unknown | + + + | Phone | Unavailable | + + + Support + + +---------+ + | Name | Relationship | Address | Phone | + + +---------+ + | Mary Medellin | ECON | Unknown | | + + +---------+ + Care Team Providers + +------+ + | Care Corporate Training Manager Name | Role | Phone | [...] Record | | 2017 | | at [facility] [address] | | Review (GEN | | | | [address] Mailcode: | | Checklist ) | | | | [address] [facility] | | | | | | Health and [facility], | | | | | | Building | | | | | | Floor [place], [place] | | | | | | [address] | | | | | | [phone] | | | +--------+ + + + [...]
--- OUTSIDE RECORDS SUMMARY | ~2018-12-18 | XMS | Encounter Summary ---
Demographics + + + | Address | [address] | | | [place] [address] | + + + | Home Phone [...] Author | [facility] | + + + | Organization | [facility] etechies[employer]in [employer] [facility] | + + + | Address | Unknown | + + + | Phone | Unavailable | + + + Support + + +---------+ + | Name | Relationship | Address | Phone | + + +---------+ + | Mary Medellin | ECON | Unknown | | + + +---------+ + Care Team Providers + +------+ + | Care Sorter Upholstery Parts Name | Role | Phone | + [...] CT ABDOMEN | [address] | Rd [place], | | | | | AND PELVIS | [place], [place] | [place] | | | | | [place] | [address] | [address] | | | | | [place] | Phone: | Phone: | | | | | CT | [phone] | [phone] | | | | | ABDOMEN&PELV | Fax: | Fax: | | | | | IS | [phone] | [phone] | | | | | W/CONTRAST | [...] + + | 08/03/ | Hospital | [address] | [place], | | | 2018 - | Encounter | [address] | [place] [address] [facility] | | | | | [place], [place] | [address] | | | 08/07/ | | [address] | [place], [place] | | | 2017 | | [phone] | [address] | | | | | | [phone] | | | | | | | [...] d hepatic encephalopathy who was transferred from [facility]. He had presented with cholecystitis [...] Plan to follow up in 1 w mindoro with pre-clinic visit CT scan. BP 128/77 [...] your drain output increases, please call the [facility] tipping machine operator automatic and ask for the EGS resident systems management consultant. You may need to go to y our nearest emergency department to check some labs. Schedule the following appointment(s) when you get home Trauma Emergency General Surgery at [facility] On 08/13/2017. Specialty: Trauma Center Why: For wound re-check Contact information [address] [facility] Mailcode: L223a [facility] [address] [address] Additional information: [facility] 2nd floor [address]. The [facility] is the building just past [facility]. Turn r ight immediately past the Pavilion. The entrance to the garage will be on your right just be yond the main entrance to the Pavilion. Aids Counselor parking is available in the [facility]ician's Pav[facility] [...] MD PCP: [place] p [phone] EGS Associated attestation - Herminio Still MD,PhD - 08/07/2017 9:33 PM PDTEmergency General [facility]/Trauma Attending Addendum Date of Service: 08/07/2017 I saw and examined Bret Espinal Jr. ([id number]) with the resident and agree with the assess ment and plan as outlined in this note and participated in the planning of care. Mr. Espinal is stable for discharge today. We will plan to see him back in clinic in a week with a pre-clinic ct to re-eval the perihilar fluid collection/abscess. Herminio Still MD, PhD, FACS quill skinner Division of Trauma, Critical Care & Acute Care Surgery [facility] & [facility] [phone] documented in this encounter Medications at Time [...] Uriah Marx MD - 08/07/2017 7:52 AM [facility] GENERAL SURGERY Mr. 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 He had presented with cholecystitis [...] visit CT [place]ah Marx [place] p [id number] EGS Associated attestation - Herminio Still MD,PhD - 08/07/2017 9:34 PM [facility] H[facility] rgery/Trauma Attending Addendum Date of Service: 08/07/2017 I saw and examined Bret Espinal Jr. ([id number]) with the resident and agree with the assess ment and plan as outlined in this note and participated in the planning of care. Herminio Still MD, PhD, FACS quill skinner Division of Trauma, Critical Care & Acute Care Surgery [facility] [place] [phone] Uriah Marx MD - 08/06/2017 11:52 AM [facility] Mr. Espinal is a [...] early next [place] Uri[place] Marx [place] p [id number] EGS Associated attestation - Herminio Still MD,PhD - 08/07/2017 9:34 PM PDTEmergency General Hines rgery/Trauma Attending Addendum Date of Service: 08/06/2017 I saw and examined Bret Espinal Jr. ([id number]) with the resident and agree with the assess ment and plan as outlined in this note and participated in the planning of care. Herminio Still MD, PhD, FACS quill skinner Division of Trauma, Critical Care & Acute Care Surgery [facility] [place] [phone] Cherise Bhatti MD - 08/06/2017 11:31 AM [...] plan was discussed and formulated with the [place] stroenterology attending, Dr. Bernabe. Please call the on-call GI fellow with any questions . Justo Roche MD Fellow, Gastroenterology Pager: [phone] INTERVAL HISTORY: MRCP overnight with extrinsic compression [...] note for further details. Jaleel Bernabe MD [facility] [address] [facility] [address] [place] [address] [facility] DEPARTMENT: GI - [id number] Place of Service: HOSP CSN: [id number] Suggested Modifiers: GC - Resident Involved Suggested Level of Care: 38994 - Subsequent, Prob Foc/low complex 15 min Uriah Marx MD - 08/05/2017 8:09 AM [facility] Mr. 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 He had presented with cholecystitis [...] in 1-2 [place] p [phone] EGS ojaki, Rylan Sinclair D - 08/05/2017 [...] questions. Justo Roche MD Fellow, Gastroenterology Pager: [phone] INTERVAL HISTORY: Hemodynmaics stable E coli in [...] note for further details. Mirza Bender MD Rn Lvn Gastroenterology and Hepatology Uriah Marx MD - 08/04/2017 9:37 AM [facility] Mr. Espinal is a [...] in 1-2 days Uri[place] p [id number] EGS Associated attestation - Herminio Still MD,PhD - 08/04/2017 6:02 PM PDTEmergency General Hines rgery/Trauma Attending Addendum Date of Service: 08/04/2017 I saw and examined Bret Espinal . ([id number]) with the resident and agree with the assess ment and plan as outlined in this note and participated in the planning of care. Continue with diet. Will need to leave the cholecystostomy tube in place for several weeks. MRCP per GI recs. Herminio Still MD, PhD, FACS quill skinner Division of Trauma, Critical Care & Acute Care Surgery [facility] [place] [phone] Justo Roche MD - 08/04/2017 6:29 AM [...] questions. Justo Roche MD Fellow, Gastroenterology Pager: [phone] INTERVAL HISTORY: 10.2 Fr chholecystostomy tube placced [...] note for further details. Mirza Bender MD Rn Lvn Gastroenterology and Hepatology Santosh Fallon MD - [...] tylenol to 1000 mg TID scheduled from [id number] - Gave 2 mg morphine IV - [...] are concerns. Santosh Fallon, PGY-1 Trauma Surgery [id number] Update 9:45 pm: Patient is doing much [...] any concerns Santosh Fallon, PGY-1 Trauma Surgery [id number] signed by Santosh Fallon MD at 08/03/2017 [...] for this procedure can be found in [facility], under the results review tab for ([facility]) Interventional Radiology. Alternatively, they can be found in [facility] under tony rt review, imaging tab. Full report can also be found in [employer] as REPORT under the specifie d procedure. [...] under moderate sedation Cherise Bhatti MD Pager: [phone] [facility] No past medical history [...] MARLAQUITAAM | [address] | [place], [place] | | | [facility] | [facility] | [address] | | | TESTS | | | [...] (H) | 70 - 99 mg/dL | [facility] - | | | GLUCOSE, | [...] FALL | [address] | [place], [place] | | | [facility]ARE | [address] | [address] | | | TESTS | | | [...] | + + + + + | [facility] LABORATORY | [address] | [place] [address] | | | JORGE L BURTON | [...] | | | LABORATORY | | | PALAUAN | | | SERVICES, | | | [...] the MDRD equation recommended by the | [facility] | | National Kidney Disease Education [...] | + + + + + | [facility]ORY | [address] | [place] [address] | | | JORGE L BURTON | [...] MARLAQUITAAM | [address] | [place], [place] | | | [facility] | [address] | [address] | | | TESTS | | | [...] FALL | [address] | [place], [place] | | | [facility] | [address] | [address] | | | TESTS | | | [...] MARQUAM | [address] | [place], [place] | | | [facility] | [address] | [address] | | | TESTS | | | [...] MARQUAM | [address] | [place], [place] | | | [facility] | [address] | [address] | | | TESTS | | | [...] + + + | LINDA FALL | [address] | [place], [place] | | | [facility] | [address] | [address] | | | TESTS | | | [...] [facility] | [address] | [place] [address] | | | JORGE L BURTON | [...] | | | LABORATORY | | | PALAUAN | | | SERVICES, | | | [...] the MDRD equation recommended by the | [facility] | | National Kidney Disease Education Program. [...] [facility] | [address] | [place] [address] | | | SERVICES, CORE | PARK [...] | + + + + + | [facility] | [address] [facility] | [place] [address] | | | SERVICES, CORE | PARVEEN [...] FALL | [address] | [place], [place] | | | [facility] | [facility] | [address] | | | TESTS | | | [...] MARQUAM | [address] | [place], [place] | | | [facility] | [address] | [address] | | | TESTS | | | [...] Note | + + | Service Account, [employer] In Interface - 08/06/2017 9:15 AM [...] MARQUAM | [address] | [place], [place] | | | [facility] | [address] | [address] | | | TESTS | | | [...] [facility] | [address] | [place] [address] | | | SERVICES, CORE | PARVEEN [...] | | | LABORATORY | | | PALAUAN | | | SERVICES, | | | [...] | + + + + + | [facility] | [address] | [place] [address] | | | SERVICES, CORE | PARVEEN [...] MARQUAM | [address] | [place], [place] | | | [facility] | [address] | [address] | | | TESTS | | | [...] EUFEMIA | [address] | [place], [place] | | | [facility] | [address] | [address] | | | TESTS | | | [...] (H) | 70 - 99 mg/dL | [facility] - | | | GLUCOSE, | [...] FALL | [address] | [place], [place] | | | [facility] | [address] | [address] | | | TESTS | | | [...] MARQUAM | [address] | [place], [place] | | | [facility] | [address] | [address] | | | TESTS | | | [...] - EUFEMIA | [address] | [place], [place] | | | [facility] | [address] | [address] | | | TESTS | | | [...] (H) | 70 - 99 mg/dL | [facility] - | | | GLUCOSE, | [...] FALL | [address] | [place], [place] | | | [facility] | [address] | [address] | | | TESTS | | | [...] MARQUAM | [address] | [place], [place] | | | [facility] | [address] | [address] | | | TESTS | | | [...] - EUFEMIA | [address] | [place], [place] | | | [facility] | [address] | [address] | | | TESTS | | | [...] (H) | 70 - 99 mg/dL | [facility] - | | | GLUCOSE, | [...] FALL | [address] | [place], [place] | | | [facility] | [address] | [address] | | | TESTS | | | [...] MARQUAM | [address] | [place], [place] | | | [facility] | [address] | [address] | | | TESTS | | | [...] - EUFEMIA | [address] | [place], [place] | | | [facility] | [address] | [address] | | | TESTS | | | [...] (H) | 70 - 99 mg/dL | [facility] - | | | GLUCOSE, | [...] FALL | [address] | [place], [place] | | | [facility] | [address] | [address] | | | TESTS | | | [...] SAIRAAM | [address] | [place], [place] | | | [facility] | [address] | [address] | | | TESTS | | | [...] LINDA FALL | [address] | [place], [place] | | | [facility] | [address] | [address] | | | TESTS | | | [...] [facility] | [address] | [place] [address] | | | JORGE L BURTON | [...] | | | LABORATORY | | | PALAUAN | | | SERVICES, | | | [...] the MDRD equation recommended by the | [facility] | | National Kidney Disease Education Program. [...] | + + + + + | [facility]ORY | [address] | [place] [address] | | | JORGE L BURTON | [...] (H) | 70 - 99 mg/dL | [facility] - | | | GLUCOSE, | [...] FALL | [address] | [place], [place] | | | [facility] | [address] | [address] | | | TESTS | | | [...] + + | Performing | Address | City/State[facility] | Phone Number | | Organization | | | | + + + + + | LIN[facility] - [facility] | [address] | [place], [place] | | | [facility] | [facility] | [address] | | | TESTS | | | [...] SAIRAAM | [address] | [place], [place] | | | [facility] | [facility] | [address] | | | TESTS | | | [...] (H) | 70 - 99 mg/dL | [facility] - | | | GLUCOSE, | [...] FALL | [address] | [place], [place] | | | [facility] | [address] | [address] | | | TESTS | | | [...] FALL | [address] | [place], [place] | | | [facility] | [facility] | [address] | | | TESTS | | | [...] SAIRAAM | [address] | [place] | | | [facility] | [facility] | [address] | | | TESTS | | | [...] (H) | 70 - 99 mg/dL | [facility] - | | | GLUCOSE, | [...] FALL | [address] | [place], [place] | | | [facility] | [address] | [address] | | | TESTS | | | | + + + + + X-RAY PORTABLE CHEST 1 VIEW (08/03/2017 9:48 PM PDT) + + | Specimen | + + | | + + + + + | Narrative | Performed At | + + + | EXAM: [place] CHEST 1 VIEW HISTORY: Abdominal and chest [...] Interface - 08/04/2017 9:33 AM PDT EXAM: OK CHEST 1 | | VIEW HISTORY: Abdominal [...] EUFEMIA | [address] | [place], [place] | | | [facility] | [address] | [address] | | | TESTS | | | [...] | + + + + + | [facility] | [address] | [place] [address] | | | SERVICES, CORE | PARK [...] 13.69 (H) | 3.50 - 10.80 | [facility] | | | COUNT | | [...] [facility] | [address] | [place] [address] | | | SERVICES, CORE | PARK [...] | | | LABORATORY | | | PALAUAN | | | SERVICES, | | | [...] | + + + + + | [employer] | [address] | [place] [address] | | | SERVICES, JORGE L | [...] | + + + + + | [facility] | [address] | [place] [address] | | | JORGE L BURTON | [...] | + + + + + | [facility] DEPT OF | [address] | [place], [place] | | | CARDIOLOGY | [address] | [address] | | + + + + + [...] EUFEMIA | [address] | [place] | | | [facility] | [facility] | [address] | | | TESTS | | | [...] (H) | 70 - 99 mg/dL | [facility] - | | | GLUCOSE, | [...] FALL | [address] | [place], [place] | | | [facility] | [address] | [address] | | | TESTS | | | [...] + | FLOOD - AIRPORT - | [address] | [place] [address] | | | [facility] | | | | + + + [...] | + + + + + | [employer] | [address] [facility] | [place] [address] | | | SERVICES, CORE | PARVEEN [...] US | | | guided placement 10.2 Gibraltarian MPD drainage catheter into gallbladder | | | Operation 2. Fluoroscopic guided confirmation of 10.2 Gibraltarian MPD | | | drainage catheter Indications: [...] intercostal approach. | | | A 10.2 Gibraltarian MPD catheter was advanced directly into the [...] Note | + + | Service Account, [employer] In Interface - 08/20/2017 2:24 PM PDT Procedure: | | Percutaneous CholecystostomyPrimary Interventionalist: Shawna Fregoso | | Interventionalist: ESCOBAR Kelleyreoperative diagnosis: | | cholecystitisPostoperative diagnosis: SameOperations:Operation 1. US guided placement | | 10.2 Gibraltarian MPD drainage catheter into gallbladderOperation 2. Fluoroscopic guided | | confirmation of 10.2 Gibraltarian MPD drainage catheterIndications:61 year-old male with acute [...] an | | intercostal approach. A 10.2 Gibraltarian MPD catheter was advanced directly into the [...] from an intercostal approach. A | |10.2 Gibraltarian MPD catheter was advanced directly into the [...] FALL | [address] | [place], [place] | | | [facility] | [address] | [address] | | | TESTS | | | [...] MARQUAM | [address] | [place], [place] | | | [facility] | [facility] | [address] | | | TESTS | | | [...] MARQUAM | [address] | [place], [place] | | | [facility] | [facility] | [address] | | | TESTS | | | [...] FALL | [address] | [place], [place] | | | [facility] | [address] | [address] | | | TESTS | | | [...] DEPT OF | [address] | [place], [place] | | | CARDIOLOGY | [address] | [address] | | + + + + + [...] | + + + + + | [facility] | [address] [facility] | [place] [address] | | | SERVICES, | [address] [...] [facility] | [address] | [place] [address] | | | SERVICES, CORE | PARK [...] | + + + + + | [facility] | [address] | [place] [address] | | | SERVICESJORGE L | PARVEEN [...] [facility] | [address] | [place] [address] | | | SERVICES, | [address] [...] | + + + + + | [facility] | [address] | [place] [address] | | | SERVICES, | [address] [...] | + + + + + | [facility] | [address] | [place] [address] | | | SERVICES, [facility] | [address] | | | + + + + + HEMOGLOBIN A1C, BLOOD (08/03/2017 11:29 AM PDT) + + + + + + | Component | Value | Ref Range | Performed | Pathologist | | | | | At | Signature | + + + + + + | HEMOGLOBIN | 9.8 (H)Comment: Hgb A1C | <5.7 % | [facility] | | | A1C | Interpretive | [...] | [facility] | | considered for monitoring production supply equipment tender glycemic control in patients with: | LABORATORY [...] | + + + + + | [facility] | [address] | [place] [address] | | | SERVICES, SPECIAL | PARVEEN [...] | + + + + + | [facility] | [address] | [place] [address] | | | SERVICES, CORE | PARK [...] + + | [facility] | [address] [facility] | [place] [address] | | | MICHEAL, JORGE L | [...] | + + + + + | [facility] | [address] | [place] [address] | | | SERVICES, CORE | PARK [...] | | | LABORATORY | | | PALAUAN | | | SERVICES, | | | [...] | + + + + + | [facility] | [address] | [place] [address] | | | SERVICES, CORE | PARVEEN [...] [facility] | [address] | [place], [place] | | | [facility] | [address] | [address] | | | TESTS | | | [...] contrast performed at outside institution. DATE OF [facility] | RADIOLOGY VOICE | | INTERPRETATION: [...] at | | outside institution. DATE OF [facility] INTERPRETATION: 08/03/17DATE OF IMAGE ACQUISITION: | [...] | | | | | dose, [facility] 08/05/17 at 1145 | | PM [...]
--- OUTSIDE RECORDS SUMMARY | ~2018-12-18 | XMS | Encounter Summary ---
Demographics + + + | Address | [address] | | | [place] [address] | + + + | Home Phone [...] Author | [facility] [employer] [facility] | + + + | Organization | [facility] [employer] [facility] | + + + | Address | Unknown | + + + | Phone | Unavailable | + + + Support + + +---------+ + | Name | Relationship | Address | Phone | + + +---------+ + | Mary Medellin | ECON | Unknown | | + + +---------+ + Care Team Providers + +------+ + | Care Lard Renderer Name | Role | Phone | + [...] | | Cholelithias | Rickeyk | [address] [facility] | | | | | es | [place] | [facility] | | | | | | Health | Rd Mailcode: | | | | | | Center | [address] | | | | | | [address] | Physician's | | | | | | [place] | [address] | | | | | | [address] | [address] | | | | | | [place], | [place], [place] | | | | | | [place] [address] | [address] | | | | | | Phone: | Phone: | | | | | | [phone] | [phone] | | | | | | Fax: | Fax: | | | | | | [phone] | [phone] | +--------+--------+ + + + + Encounter [...] | | | [address] | [facility] [place] | obstruction (Primary | | | | Mailcode: L223A | [address] | Dx); Chronic | | | | [facility] | [phone] | hepatitis C without | | | | [address], [place] | | hepatic coma (HCC) | | | | [address] | | | | | | [phone] | | | +--------+---------+ + + + [...] and not resume. Dion Mac MD, FACS Bleach Analyst, Trauma, Critical Care and Acute Care Surgery [...]
--- OUTSIDE RECORDS SUMMARY | ~2018-12-18 | XMS | Encounter Summary ---
Demographics + + + | Address | [address] | | | [place] [address] | + + + | Home Phone [...] Author + + + | Author | [facility] [employer] [facility] | + + + | Organization | [facility] [employer] [facility] [...] Team Providers + +------+ + | Care Pearl Maker Name | Role | Phone | [...] | | | | AND PELVIS | [facility] [place] | [place] | | | | | [place] | [address] | [address] | | | | | [place] | Phone: | Phone: | | | | | [place] | [phone] | [phone] | | | | | ABDOMEN&PELV | Fax: | Fax: | | | | | [place] | [phone] | [phone] | | | | | W/CONTRAST | [...] | | | Procedures | [address] | [facility] | | | | | CT ABDOMEN | [address] | [address] [place], | | | | | AND PELVIS | [facility] [place] | [place] | | | | | [place] | [address] | [address] | | | | | [place] | Phone: | Phone: | | | | | [place] | [phone] | [phone] | | | | | ABDOMEN&PELV | Fax: | Fax: | | | | | [place] | [phone] | [phone] | | | | | W/[place] | | | +--------+--------+ + + + + Encounter Details +--------+ + + + + | Date | Type | Department | Care Team | Description | +--------+ + + + + | 08/13/ | Hospital | Diagnostic Imaging | Jessika Allen, | | | 2018 | Encounter | Services at [facility] | [address] | | | | | [address] | [address] | | | | | [place] Mailcode: | [place], [place] | | | | | [address] [facility] | [address] | | | | | [place], [place] | [phone] | | | | | [address] | | | | | | [phone] | | | +--------+ + + + [...]
--- OUTSIDE RECORDS SUMMARY | ~2018-12-18 | XMS | Clinical Summary ---
Demographics + + + | Address | [address] | | | [place] [address] | + + + | Home Phone [...] Providers + +------+ + | Care Lard Refiner Name | Role | Phone | + +------+ + | Shakir Monzon MD | PCP | | + +------+ + Source Comments LINDA is fully live on both EpicCare Ambulatory and EpicCare InPatient.Formerly [facility] Allergies + + + + + [...] PLUS | | 18-Pre | 6 | [address] | id | | | OPEN | | sent | | [place], [place] | | | | CARD | | | | [address] | | + +--------+ +--------+ + +--------+ | [facility] | [facility] | [phone] | | | | Agency [...] Person | Self | [birth year] | | [address] | | | al/Fam | | 1955 | [phone] | [place] [address] | | | eryn | | | [...]
--- OUTSIDE RECORDS SUMMARY | ~2018-12-18 | XMS | Encounter Summary ---
Demographics + + + | Address | [address] | | | [place] [address] | + + + | Home Phone [...] | [facility] | + + + | Organization | On License Of [facility] TERMIN[employer] [facility] | + + + | Address | Unknown | + + + | Phone | Unavailable | + + + Support + + +---------+ + | Name | Relationship | Address | Phone | + + +---------+ + | Mary Medellin | ECON | Unknown | | + + +---------+ + Care Team Providers + +------+ + | Care Automatic Steel Tie Adjuster Name | Role | Phone | + [...] | | | | | | [place] [address] | | | +--------+--------+ + + + [...]
--- OUTSIDE RECORDS SUMMARY | ~2018-12-18 | XMS | Encounter Summary ---
Demographics + + + | Address | [address] | | | [place] [address] | + + + | Home Phone [...] + | Author | [facility] whoactually [facility] | + + + | Organization | [facility] [employer] [facility] [...] Providers + +------+ + | Care Metal Cnc Operator Name | Role | Phone | [...] Rd | | | | | | [place], [place] | | | | | | [address] | | | +--------+ + + + [...]
--- OUTSIDE RECORDS SUMMARY | ~2018-12-18 | XMS | Encounter Summary ---
Demographics + + + | Address | [address] | | | [place] [address] | + + + | Home Phone [...] + | Author | [facility] | + + + | Organization | [facility] ibeat[employer] [facility] | + + + | Address | Unknown | + + + | Phone | Unavailable | + + + Support + + +---------+ + | Name | Relationship | Address | Phone | + + +---------+ + | Mary Medellin | ECON | Unknown | | + + +---------+ + Care Team Providers + +------+ + | Care Weapons Designer Name | Role | Phone | [...] | | 2019 | | Center at [facility] [address] | | - General | | | | [address] | | | | | | Mailcode: [place] | | | | | | [facility] and | | | | | | [facility], [address] | | | | | | [place], [place] | | | | | | [address] | | | | | | [phone] | | | +--------+ + + + [...]
--- OUTSIDE RECORDS SUMMARY | ~2018-12-18 | XMS | Encounter Summary ---
Demographics + + + | Address | [address] | | | [place] [address] | + + + | Home Phone [...] | Author | [facility] [employer] | + + + | Organization | [facility] [employer] [facility] | [...] Providers + +------+ + | Care Senior Sourcing Manager Name | Role | Phone | [...] | | | | | CARDIAC | [place], [place] | [address] | | | | | [facility] | [address] | for Health | | | | | | Phone: | and Healing, | | | | | | [phone] | Building [address] | | | | | | Fax: | [place], [place] | | | | | | [phone] | [address] | | | | | | | Phone: | | | | | | | [phone] | | | | | | | Fax: | | | | | | | [phone] | + +--------+ + + + + [...] Health and | | | | | SURGICAL SERVICES ASSISTANT | [address] | Healing, | | | | | [place] REMOVAL | Phone: | [address] | | | | | GALLBLADDER | [phone] | [place], [place] | | | | | [place] REMV | Fax: | [address] | | | | | GALLBLADDER | [phone] | Phone: | | | | | W | | [phone] | | | | | CHOLANGIOGRA | | Fax: | | | | | M [place] REMV | | [phone] | | | | | GALLBLADDER, | | | | | | | EXPLOR | | | | | | | COMMON DUCT | | | | | | | [place] REMV | | | | | | [...] | | | | | | [place] UPPER GI | | | | | | | | | | | | | | ENDOSCOPY,DI | | | | | | | AGNOSIS [place] | | | | | | | UPPER GI | | | | | | | ENDOSCOPY,BI | | | | | | | OPSY [place] | | | | | | | PLACE PERCUT | | | | | | | GASTROSTOMY | | | | | | | TUBE [place] | | | | | | | REMOVAL | | | | | | | STOMACH,TOTA | | | | | | | L [place] | | | | | | | REMOVAL | | | | | | | STOMACH,JACINTO | | | | | | | -EN-Y [place] | | | | | | | ERCP,W/REMOV | | | | | | | [place] | | | | | | | STONE,DAVID/PA | | | | | | | NCR DUCTS | | | | | | | [place] EXCIS | | | | | | | BILE DUCT | | | | | | | TUMOR,EXTRAH | | | | | | | EPATIC [place] | | | | | | | EXCIS BILE | | | | | | | DUCT | | | | | | | TUMOR,INTRAH | | | | | | | EPATIC [place] | | | | | | | LAP,ESOPHAGU | | | | | | | S,OTHER PROC | | | | | | | [phone] | | | | | | | (like code | | | | | | | [phone] | | | | | | | or [phone]) | | | + +--------+ + + [...] | | | Cholelithias | [place] | [address] | | | | | es | [place] | Ave | | | | | | Health | Mailcode: | | | | | | [place] | [facility] | | | | | | [facility] | Health and | | | | | | Confederated | Healing, | | | | | | Way | Building [address] | | | | | | [place], | [place], [place] | | | | | | [place] [address] | [address] | | | | | | Phone: | Phone: | | | | | | [phone] | [phone] | | | | | | Fax: | Fax: | | | | | | [phone] | [phone] | + +--------+ + + + + [...] | | | | Mailcode: Center | [place], [place] | | | | | for Health and | [address] | | | | | [facility] 2 | [phone] | | | | | [place], [place] | | | | | | [address] | | | | | | [phone] | | | +--------+---------+ + + + [...] 02/02/2018 9:10 AM PSTPATIENT SURGERY INFORMATI ON [facility] General Surgery Office Toll-free: ext [phone] Surgery Date: TBD Procedure: Laparoscopic cholecystectomy, possibly [...] the surgery. Please see the list below, [facility] has a list of products that contain [...] please call the General Surgery Office at [phone] for [id number]. PARKING Parking for patients and visitors is available in the [facility] Parking structure located across from the emergency department. Patient parking is available on level 1 and 3. Mete red parking is available on the top level. CHECKING IN FOR SURGERY For Hospital Admission (in-patient) you will check in on the day of surgery [facility] located on the 9th floor of [facility] TRANSPORTATION You will require transportation home on the day of discharge. Pain medications and physica l activity restrictions may limit your ability to drive safely. CANCELLING YOUR PROCEDURE Please notify the general surgery office at [phone] as soon as possible should you nee [...] prior to your surgery. PRODUCTS CONTAINING ASPIRIN Teresita-Phoenix, Anacin, Anexsia with Codeine, Andynos, Aspirin, Aspirin suppositories, Ascrip tin, Aspergum, Axotal, B-A-C, Baby Aspirin, Chalino, BC Powder, Bexophene, Buffaprin, Bufferin , Buffinol, Cama-Arthritis Strength, Congespirin, Beaumont, Coricidin, Damason, Darvon, Dristan, Monica-Gesic, Digel, Dolprin #3 Tablets, Donatab, Doxaphene, Duragesic, Easprin, Ecotrin, Emag rin Forte, Emiprin, Emprazil, Equagesic, Equazine M, Excedrin, Fiogesic, Fiorgen PH, Fiorice t, Fiorinal, 4-Way Cold Tablet Gemnisyn, Indocin, Liquprin, Lortab ASA, Magnaprin, Marnal, Meprobamate, Midol, Momentum, N orgesic, Lovejoy, Orphengesic, Pabalate, P-A-C, Percodan, Presalin, Robaxasil, Roxiprin, Barry eto, Salocol SK-65 Compound, Sine-Aid, Sine-Off,, Mccurtain, Supac, Talwin Compound, Trigesic, Tolectin , Traiminicin, Vanquish, ZORprin, Zomax PRODUCTS CONTAINING IBUPROFEN Advil, Aleve, Haltran, Medipren, Midol, Motrin, Naproxyn, Nuprin, Rufen OTHER PRODUCTS WHICH MAY PROMOTE BLEEDING Vitamin E, Gingko Biloba, Marine Fatty Acids, Alto-3 Fish Oil SupplementsElectronically si gned by Amalia Kearney RN at 02/02/2018 10:03 AM PST documented in this encounter Progress Notes Clinton Morillo MD - 02/02/2018 9:10 AM PSTDiscussed with resident Clinton Morillo M.D. [facility] ([facility]) Professor and Vice-Field Technical Support Consultant of Surgery The Mirza Gamboa Chair for Pancreatic Disease Research [facility] Cancer [place] Cell phone: [phone] / [facility] provider's line [phone]. email: [email or web address] MD - 1 04/05/2017 9:10 AM PST The Department of Surgery Clinic Note Author: Sophie Nicole MD Attending Physician: Clinton Morillo MD 02/02/2018, 8:56 AM Patient Name: Bret Espinal Jr. : 1955 Medical Record: [id number] ID: Bret Espinal Jr. is a 62 [...] at an OSH and transfe rred to [facility] for further care in July. During [...] cirrhosis, he was referr ed back to [facility] for surgery and was last seen [...] He was evaluated by cardiology here at [facility] in May and Oct 2017, and [...] an echocardiogram on October 27, 2017 at [facility] which re ports normal LV size and [...] the above medical record. Sophie Nicole MD [facility] Advanced GI & Minimally Invasive Surgery Fellow [facility] [place] Pager 70415 documented in this enco unter Plan of [...] | + + + + + | [facility] | [address] | [place] [address] | | | SERVICES, CORE | PARVEEN [...] 5 | | | | | | ng/fC4-DG-Cictyprb 50 | | | | | | [...] | | | | | determined by [facility] | | | | | | Laboratories. See | | | | | | Compliance Statement B: | | | | | | Yvolverlab.com/CSPerformed | | | | | | by [address] | | | | | | [facility],[place] | | | | | | [address] | | | | | | [phone].Yvolverlab. | | | | | | comJúnior [...] REG UNIV | | | | and 7-FG-tfvslspp is | | PTH - INTFC | | | | ametabolite of cotinine. | | | | | | After cessation from | | | | | | long-term orheavy use of | | | | | | nicotine products, | | | | | | 4-SA-hjqntmtt may | | | | | | [...] [facility] | [address] | [place], [place] | | | UNIV PTH - INTFC | | [address] | | + + + + + [...] LINDA LAGUERRE | [address] | [place] [address] | | | SERVICES, JORGE [address] | [address] | | | + + + + + documented in this encounter Visit Diagnoses + + | Diagnosis | + + | Gallbladder perforation - Primary Perforation of gallbladder | + + documented in this encounter
--- OUTSIDE RECORDS SUMMARY | ~2018-12-18 | XMS | Encounter Summary ---
Demographics + + + | Address | [address] | | | [place] [address] | + + + | Home Phone [...] [facility] A[facility] | + + + | Organization | [facility] [employer] [facility] [...] Providers + +------+ + | Care Green Building Engineer Name | Role | Phone | [...] | | | | | [address] [facility] | [place], [place] | | | | | Primitivo Mailcode: UHN83 | [address] | | | | | Vivian Mazariegos | [phone] | | | | | [address] [place], [place] | | | | | | [address] | | | | | | [phone] | | | +--------+ + + + [...]
--- OUTSIDE RECORDS SUMMARY | ~2018-12-18 | XMS | Encounter Summary ---
Demographics + + + | Address | [address] | | | [place] [address] | + + + | Home Phone [...] + | Author | [facility] [employer] [facility] | + + + | Organization | [facility] [employer] Science [facility] | + + [...] Providers + +------+ + | Care Sql Database Programmer Name | Role | Phone | + [...] | | | | | pectoris, | [place], [place] | | | | | | unspecified | [address] | | | | | | vessel or | Phone: | | | | | | lesion type, | [phone] | | | | | | unspecified | Fax: | | | | | | whether | [phone] | | | | | | elim ira or | | | | | | [...] + + + + | 03/01/ | [facility] | Digestive Health | Clinton Morillo, | 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[address] | [address]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[address] | [address]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, | | | | Mailcode: Center | [place], [place] | unspecified vessel | | | | for Health and | [address] | or lesion type, | | | | Healing, Building 2 | [phone] | unspecified whether | | | | [place], [place] | | elim ira or | | | | [address] | | transplanted heart | | | | [phone] | | ([facility]) (Primary Dx); | | | [...] or lesion type, | | unspecified whether elim ira or transplanted heart (HCC) - Primary | + + | Coronary artery calcification | + + | Anterior ST segment depression | + + | Inferior myocardial infarction (HCC) Acute myocardial infarction of other inferior | | wall, episode of care unspecified | + + documented in this encounter"
--- OUTSIDE RECORDS SUMMARY | ~2018-12-18 | XMS | Encounter Summary ---
Demographics + + + | Address | [address] | | | [place] [address] | + + + | Home Phone [...] Author + + + | Author | [facility] [facility] | + + + | Organization | [facility] [employer] [facility] | + + + | Address | Unknown | + + + | Phone | Unavailable | + + + Support + + +---------+ + | Name | Relationship | Address | Phone | + + +---------+ + | Mary Medellin | ECON | Unknown | | + + +---------+ + Care Team Providers + +------+ + | Care Drafter Geological Name | Role | Phone | + [...] Rd | | | | | Rd [place], [place] | [place], [place] | | | | | [address] | [address] | | | | | [phone] | | | +--------+ + + + [...]
--- OUTSIDE RECORDS SUMMARY | ~2018-12-18 | XMS | Encounter Summary ---
Demographics + + + | Address | [address] | | | [place] [address] | + + + | Home Phone [...] | [facility] [employer] [facility] | + + + | Organization | [facility] [employer] [facility] | + + + | Address | Unknown | + + + | Phone | Unavailable | + + + Support + + +---------+ + | Name | Relationship | Address | Phone | + + +---------+ + | Mary Medellin | ECON | Unknown | | + + +---------+ + Care Team Providers + +------+ + | Care Information Systems Security Analyst Name | Role | Phone | [...] | | Stay [address] | [place] [address] | Gallbladder | | | | [address] | [phone] | perforation | | | | Mailcode: UHN65 | | | | | | Vivian Mazariegos | | | | | | [address] [place], [place] | | | | | | [address] | | | | | | [phone] | | | +--------+---------+ + + + [...] or walk. 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 No hx of COPD shortness of breath with exer tion no cough no stridor no wheezing no Recent Respiratory Infection Pt. Has no asthma no COPD Dx of sleep apnea Untreated Cardiovascular: Functional Capacity: Low - cyanosis, palpitations and syncope chest pain with exertion no CHF no hypertension CA D Sx medically managed past DC Last DC: < 1 year no valvular problems/murmurs no [...] RCA and PL-1 [facility] and "media" tab. Findings pertinent [...] on beta ashlyn and followed by a computer engineering technologist. Estimated ASA class 4 ASSESSMENT and RECOMMENDATIONS: [...] or his SO Mary's mobile numbers (in [employer]). Thank you for the opportunity to contribute to this patient's care. Mariama Navarro MD [facility] PPB PREOPERATIVE MEDICINE CLINIC AT [facility] 4TH FLOOR DAY STAY [address] [facility] [place] [address] I spent time (60 minutes, [...] | + +--------+ + + + | SD COLLECTION VENOUS | Routin | 02/16/2018 | [...] [facility] | [address] | [place] [address] | | | SERVICES, CORE | PARK [...] | | | LABORATORY | | | [place] | | | SERVICES, | | | [...] | + + + + + | [facility] | [address] | [place] [address] | | | SERVICES, CORE | PARK [...] 5 | | | | | | ng/dL3-VW-Mpltitos 50 | | | | | | [...] | | | | | determined by [facility] | | | | | | Laboratories. See | | | | | | Compliance Statement B: | | | | | | Chasqui Bus.Thompson SCI/CSPerformed | | | | | | by eJamming,[address] | | | | | | [facility]y [facility]BL[facility] | | | | | | [address] | | | | | | [phone].[facility]. | | | | | | intermountain medical centerJúnior MD, | | | | [...] REG UNIV | | | | and 2-BJ-aouqlhyr is | | PTH - INTFC | | | | ametabolite of cotinine. | | | | | | After cessation from | | | | | | long-term orheavy use of | | | | | | nicotine products, | | | | | | 2-DF-iekdfifo may | | | | | | [...] [facility] | [address] | [place], [place] | | | UNIV PTH - INTFC | | [address] | | + + + + + [...] [facility] | [address] | [place] [address] | | | SERVICES, CORE | PARK [...] | + + + + + | [facility] | [address] | [place] [address] | | | SERVICES, | [address] [...] | + + + + + | [facility] | [address] | [place] [address] | | | SERVICES, | [address] [...]
--- OUTSIDE RECORDS SUMMARY | ~2018-12-18 | XMS | Encounter Summary ---
Demographics + + + | Address | [address] | | | [place] [address] | + + + | Home Phone [...] Author + + + | Author | [facility] [employer] [facility] | + + + | Organization | [facility] [employer] [facility] | + + + | Address | Unknown | + + + | Phone | Unavailable | + + + Support + + +---------+ + | Name | Relationship | Address | Phone | + + +---------+ + | Mary Medlelin | ECON | Unknown | | + + +---------+ + Care Team Providers + +------+ + | Care Acetylene Gas Compressor Name | Role | Phone | + [...] | | | | | GI | [place], [place] | UHN83 | | | | | PROCEDURE: | [id number] | [address] | | | | | ERCP / | Phone: | [address] | | | | | BILIARY | [phone] | [place], | | | | | [place] | Fax: | [place] [address] | | | | | | [phone] | Phone: | | | | | | | [phone] | | | | | | | Fax: | | | | | | | [phone] | +--------+--------+ + + + + Reason [...] | | | | [address] | [facility] | | | | | Mailcode: Center | [place], [place] | | | | | [facility] and | [address] | | | | | [facility] 2 | [phone] | | | | | [place], [place] | | | | | | [address] | | | | | | [phone] | | | +--------+ + + + [...]
--- OUTSIDE RECORDS SUMMARY | ~2018-12-18 | XMS | Encounter Summary ---
Demographics + + + | Address | [address] | | | [place] [address] | + + + | Home Phone [...] Author | [facility] [employer] [facility] | + + + | Organization | [facility] [employer] [facility] [...] Team Providers + +------+ + | Care Attraction Attendant Name | Role | Phone | [...] | | 2017 | | Center at [facility] [address] | PharmD [address] | management (HCV | | | | [address] | [address] | Treatment) | | | | Mailcode: OC8D | [place], [place] | | | | | [facility] | [address] | | | | | and Healing, | | | | | | Building [address] | | | | | | [place], [place] | | | | | | [address] | | | | | | [phone] | | | +--------+ + + + [...]
--- OUTSIDE RECORDS SUMMARY | ~2018-12-18 | XMS | Encounter Summary ---
Demographics + + + | Address | [address] | | | [place] [address] | + + + | Home Phone [...] Author | [facility] | + + + | Organization | [facility] [employer] [facility] | + + + | Address | Unknown | + + + | Phone | Unavailable | + + + Support + + +---------+ + | Name | Relationship | Address | Phone | + + +---------+ + | Mary Medellin | ECON | Unknown | | + + +---------+ + Care Team Providers + +------+ + | Care Skeet Operator Name | Role | Phone | [...] Pharmacy | | | | | | [address] | | | | | | [place], | | | | | | [place] [address] | | | +--------+ + + + [...]
--- OUTSIDE RECORDS SUMMARY | ~2018-12-18 | XMS | Encounter Summary ---
Demographics + + + | Address | [address] | | | [place] [address] | + + + | Home Phone [...] Team Providers + +------+ + | Care Rag Production Worker Name | Role | Phone | [...] | Transcriptions | + + | Interface, Small Parts Shaper Operator In - 09/01/2005 3:08 AM PDT | | [address] | | [place], [place] [address] | | [facility]icsOPER[facility] RECORDMed Rec No.: | | [id number] Date: 05/22/2002Name: Teddy Er[facility]SP[facility] SURGEON: | | Wilfredo Taylor M.D.ASSISTANTS: [...] . He | | is now to [id number] woman who has never had children and [...] procedure well.Wilfredo Taylor M.D.SUMA/Jimbo: 05/22/2002T: | | 05/22/[id number] | |the right, no sperm was recovered [...] | |SUMA/narinder | | | | | |[id number] | + + documented in this encounter Visit Diagnoses Not on filedocumented in this encounter"
--- OUTSIDE RECORDS SUMMARY | ~2018-12-18 | XMS | Encounter Summary ---
Demographics + + + | Address | [address] | | | [place] [address] | + + + | Home Phone [...] Count Includes [facility] [employer] [facility] | + + + | Organization | Count Includes [facility] [employer] Science [facility] [...] Team Providers + +------+ + | Care Quality Controller Name | Role | Phone | + +------+ + | Shakir Monzon MD | PCP | | + +------+ + Encounter Details +--------+ + + + + | Date | Type | Department | Care Team | Description | +--------+ + + + + | 12/01/ | Telephone | Digestive Health | Bessy Solano, | | | 2016 | | [place] [address] [address] | PA-C [address] | | | | | [address] | [address] | | | | | Mailcode: OC8D | [place], [place] | | | | | [place] for [facility] | [address] | | | | | and Maxine, | [phone] | | | | | Building [address] | | | | | | [place], [place] | | | | | | [address] | | | | | | [phone] | | | +--------+ + + + [...]
--- OUTSIDE RECORDS SUMMARY | ~2018-12-18 | XMS | Encounter Summary ---
Demographics + + + | Address | [address] | | | [place] [address] | + + + | Home Phone [...] + | Author | [facility] [employer] [facility] | + + + | Organization | [facility] [employer] [facility] | + + + | Address | Unknown | + + + | Phone | Unavailable | + + + Support + + +---------+ + | Name | Relationship | Address | Phone | + + +---------+ + | Mary Medellin | ECON | Unknown | | + + +---------+ + Care Team Providers + +------+ + | Care Exterminator Helper Name | Role | Phone | [...] Test Results | | 2017 | | [place] [address] | PA-C [address] | | | | | [address] | [address] | | | | | Mailcode: OC8D | [place], [place] | | | | | [facility] | [address] | | | | | and Healing, | [phone] | | | | | Building [address] | | | | | | [place], [place] | | | | | | [address] | | | | | | [phone] | | | +--------+ + + + [...]
--- OUTSIDE RECORDS SUMMARY | ~2018-12-18 | XMS | Encounter Summary ---
Demographics + + + | Address | [address] | | | [place] [address] | + + + | Home Phone [...] + | Author | [facility] Animating Touch [facility] | + + + | Organization | [facility] [employer] [facility] | + + + | Address | Unknown | + + + | Phone | Unavailable | + + + Support + + +---------+ + | Name | Relationship | Address | Phone | + + +---------+ + | Mary Medellin | ECON | Unknown | | + + +---------+ + Care Team Providers + +------+ + | Care Examiner Of Currency Name | Role | Phone | + [...] | | | | Mailcode: Center | [place], [place] | | | | | [facility] and | [address] | | | | | [facility] 2 | [phone] | | | | | [place], [place] | | | | | | [address] | | | | | | [phone] | | | +--------+ + + + [...]
--- OUTSIDE RECORDS SUMMARY | ~2018-12-18 | XMS | Encounter Summary ---
Demographics + + + | Address | [address] | | | [place] [address] | + + + | Home Phone | | + + + | Preferred Language | Unknown | + + + | Marital Status | Single | + + + | Zoroastrianism Affiliation | NRP | + + + | Race | or | + + + | Ethnic Group | Not or | + + + Author + + + | Author | [facility] [employer] [facility] | + + + | Organization | [facility] [employer] [facility] [...] Team Providers + +------+ + | Care Gas Combustion Engineer Name | Role | Phone | [...] | | 2016 | | Center at [facility] [address] | Gastroenterology | Gastroenterology | | | | [address] | | | | | | Mailcode: OC8D | | | | | | [facility] | | | | | | and Healing, | | | | | | Building [address] | | | | | | [place], [place] | | | | | | [address] | | | | | | [phone] | | | +--------+ + + + [...]
--- OUTSIDE RECORDS SUMMARY | ~2018-12-18 | XMS | Clinical Summary ---
Demographics + + + | Address | [address] | | | [place] [address] | + + + | Home Phone | | + + + | Preferred Language | Unknown | + + + | Marital Status | Single | + + + | Restorationist Affiliation | Unknown | + + + | Race | Unknown | + + + | Ethnic Group | Unknown | + + + Author + + + | Author | [facility] | | | and [place] | + + + | Organization | [facility] | | | [...] Team Providers + +------+ + | Care Contracts Intern Name | Role | Phone | [...] (Procedure | 2018 | | | D, Pointer Helper | CLX. ) | +--------+ + + + + | 11/29/ | Refill | Kady Garza | Medication Refill | 2018 | | | Bridgette Pointer Helper | | +--------+ + + + + | 11/24/ | Telephone | Kady Garza (Patient | 2018 | | | Bridgette Pointer Helper | update. ) | +--------+ + + + + | 10/07/ | Documentati | Kady Garza | Nu (Hemphill | | 2018 | on | | Bridgette Pointer Helper | Gbae ROSS ) | +--------+ + + + [...] [place] | | | | | | [address] | | | | | | | [...] +--------+ +---------+--------+ | HEALTH | IHS | [id number] | | | | Indemn | | SERVICE | YELLOW | | 009-Pr | | | ity | | | HAWK | | esent | | | | + +--------+ +--------+ +---------+--------+ | MEDICAID [place] | MEDICA | [id number] | 04/16/19 | [phone] | | Medica | | | ID [place] | | 18-Pre | 2 | | id | | | PLUS | | sent | | | | + +--------+ +--------+ +---------+--------+ | [facility] | IHS | [id number] | 05/21/19 | | | Indemn | [...] Person | Self | [birth year] | | [address] | | | al/Fam | | 1955 | [phone] | [place] | | | eryn | | | 1 (Home) | [address] | + +--------+ +--------+ + + | Bret Espinal Jr. | Person | Self | [birth year] | | [address] | | | al/Fam | | 1955 | [phone] | [place] | | | eryn | | | 1 (Home) | [address] | + +--------+ +--------+ + + Advance Directives Patient has advance care planning documents, and code status on file. For more information, please contact:[facility] aleks Thony[place]ibkarlee [place] [address] + + + + + | Code Status | Date | Date | Comments | | | Activated | Inactivated | | + + + + + | Full Code | 04/26/2017 | 04/28/2017 | | | | 11:15 | 19:32 | | + + + + +
--- OUTSIDE RECORDS SUMMARY | ~2018-12-18 | XMS | Encounter Summary ---
Demographics + + + | Address | [address] | | | [place] [address] | + + + | Home Phone [...] + | Author | [facility] | + + + | Organization | [facility] [...] Team Providers + +------+ + | Care Sap Developer Name | Role | Phone | [...] | | 2018 | | Center at [facility] [address] | PA-C [address] | Review | | | | [address] | [address] [facility] | | | | | Mailcode: OC8D | [place], [place] | | | | | [facility] | [address] | | | | | and Healing, | [phone] | | | | | Building [address] | | | | | | [place], [place] | | | | | | [address] | | | | | | [phone] | | | +--------+ + + + [...]
--- OUTSIDE RECORDS SUMMARY | ~2018-12-18 | XMS | Encounter Summary ---
Demographics + + + | Address | [address] | | | [place] [address] | + + + | Home Phone [...] Author + + + | Author | [facility] [employer] [facility] | + + + | Organization | [facility] [employer]ola [employer] [facility] | [...] Team Providers + +------+ + | Care Cna Hospice Name | Role | Phone | + [...] | | 2018 | | Center at [facility] [address] | PA-C [address] | Review | | | | [address] | Renato [facility] | | | | | Mailcode: OC8D | [place], [place] | | | | | [facility] | [address] | | | | | and Healing, | [phone] | | | | | Building [address] | | | | | | [place], [place] | | | | | | [address] | | | | | | [phone] | | | +--------+ + + + [...]
--- OUTSIDE RECORDS SUMMARY | ~2018-12-18 | XMS | Encounter Summary ---
Demographics + + + | Address | [address] | | | [place] [address] | + + + | Home Phone [...] + | Author | [facility] | + + + | Organization | [facility] [employer] [facility] [...] Team Providers + +------+ + | Care Clay Machine Operator Name | Role | Phone | + +------+ + | Shakir Monzon MD | PCP | | + +------+ + Encounter Details +--------+------+ + + + | Date | Type | Department | Care Team | Description | +--------+------+ + + + | 10/14/ | Lab | Laboratory at [facility] | | Hepatic cirrhosis, | | 2017 | | [address] | | unspecified hepatic | | | | [place], [place] | | cirrhosis type | | | | [address] | | (HCC); Chronic | | | | [phone] | | hepatitis C without | | [...] + | FLOOD - AIRPORT - | [address] | [place] [address] | | | [place] | | | [...] | + + + + + | [facility] | [address] | [place] [address] | | | [facility] | | | | | HEALTH [...] + + + | LINDA[facility]KAVIN | [address] | [place] [address] | | | DIAGNOSTIC | [address] [...] | + + + + + | [facility] | [address] | [place] [address] | | | SERVICES, CORE | [address] [...] modified from | [facility] | | original computer system specialist's approved specifications. The performance | LABORATORY | | of the PRESS TOOL MAKER HIV Combo test, with or without confirmation, was not | SERVICES, | | tested in pediatric patients less than 2 years of age. [facility] | SPECIAL IMM + | | [...] | + + + + + | [facility] | [address] [facility] [address] | [place] [address] | | | SERVICES, SPECIAL | PARVEEN [...] + | FLOOD - AIRPORT - | [address] | [place] [address] | | | [place] | | | [...] | + + + + + | [facility] | [address] | [place] [address] | | | SERVICES, CORE | PARVEEN [...] by | | | | | | [employer],[address] | | | | | | Marky Tapia [facility],[place] | | | | | | [address] | | | | | | [phone] [employer]. | | | | | | Júnior [...] [facility] | [address] | [place], [place] | | | UN[facility] P[facility] INT[facility] | | [address] | | + + + + + [...] | + + + + + | [facility] | [address] | [place] [address] | | | SERVICES, CORE | PARVEEN [...] | + + + + + | [facility] | [address] [facility] | [place] [address] | | | SERVICES, JORGE [address] | [...] | | | LABORATORY | | | ROMANIAN | | | SERVICES, | | | [...] | + + + + + | [facility] | [address] | [place] [address] | | | SERVICES, CORE | [address] | | | + + + + + documented in this encounter Visit Diagnoses + + | Diagnosis | + + | Hepatic cirrhosis, unspecified hepatic cirrhosis type (HCC) | + + | Chronic hepatitis C without hepatic coma (HCC) | + + documented in this encounter"
--- OUTSIDE RECORDS SUMMARY | ~2018-12-18 | XMS | Encounter Summary ---
Demographics + + + | Address | [address] | | | [place] [address] | + + + | Home Phone [...] | Author | [facility] [employer] [facility] | + + + | Organization | [facility] [employer] [facility] | + [...] Providers + +------+ + | Care Human Geography Faculty Member Name | Role | Phone | + [...] | | | | CONSULT TO | Horace | [place], [place] | | | | | CARDIOLOGY | [address] | [address] | | | | | | [place], [place] | Phone: | | | | | | [address] | [phone] | | | | | | Phone: | Fax: | | | | | | [phone] | [phone] | | | | | | Fax: | | | | | | | [phone] | | +--------+--------+ + + + + Encounter Details +--------+---------+ + + + | Date | Type | Department | Care Team | Description | +--------+---------+ + + + | 11/01/ | Office | Cardiology General | Sharon Sanderson | Dyspnea, unspecified | | 2018 | Visit | at [facility] [address] | [address] | type (Primary Dx); | | | | [address] Mailcode: | [address] [place], | Coronary artery | | | | [facility] | [place] [address] | disease involving | | | | Health and Healing, | [phone] | cahto coronary | | | | Building | | artery, angina | | | | Floor [place], [place] | | presence | | | | [address] | | unspecified, | | | | [phone] | | unspecified whether | | | | | | cahto or | | | | | | [...] He was transferred to another facility in [place] and went into atrial fibrillation. He had an angiogram at [facility] which showed severe CAD and medical treatment was recom mended. He denies palpitations, tachycardia, irregular heart beat, paroxysmal nocturnal dys pnea, lower extremity edema. He is smoking few cigarettes per day. He is not drinking alcohol. He has not smoked marijua na for two weeks. He had an echocardiogram on October 27, 2017 at [facility] which reports normal LV size and [...] inferior Q waves Outside records reviewed from [facility] (in media tab) Echo 10/27/17: 1. [...] well as continued risk for heart disease, [place]. Joyce ent advised to quit smoking prior to surgical intervention, preferably 1 month prior for opt imum outcome. Patient verbalized understanding of plan of care and instructions as outlined. A report of this preoperative evaluation will be sent to PCP Shakir Monzon MD and referring provider/surgeon Clinton Morillo MD and Michelle Gan MD. CARDIOLOGY - PREVENTIVE [address] Mailcode: [id number] [facility] [id number] [phone] signed by Sharon Sanderson PA-C at 11/01/2017 [...] DEPT OF | [address] | [place], [place] | | | CARDIOLOGY | [address] | [address] | | + + + + + documented in this encounter Visit Diagnoses + + | Diagnosis | + + | Dyspnea, unspecified type - Primary | + + | Coronary artery disease involving cahto coronary artery, angina presence unspecified, | | unspecified whether cahto or transplanted heart | + + | Essential hypertension | + + | Pre-operative cardiovascular examination | + + documented in this encounter
--- OUTSIDE RECORDS SUMMARY | ~2018-12-18 | XMS | Encounter Summary ---
Demographics + + + | Address | [address] | | | [place] [address] | + + + | Home Phone [...] Author + + + | Author | [facility] [employer] [facility] | + + + | Organization | [facility] [employer] [facility] [...] Team Providers + +------+ + | Care Sweatband Decorating Machine Operator Name | Role | Phone [...] | | | | | | [place] [address] | | | +--------+--------+ + + + [...]
--- OUTSIDE RECORDS SUMMARY | ~2018-12-18 | XMS | Encounter Summary ---
Demographics + + + | Address | [address] | | | [place] [address] | + + + | Home Phone [...] [facility] [employer] [facility] | + + + | Organization | [facility] be2 Science [facility] | + + + | Address | Unknown | + + + | Phone | Unavailable | + + + Support + + +---------+ + | Name | Relationship | Address | Phone | + + +---------+ + | Mary Medellin | ECON | Unknown | | + + +---------+ + Care Team Providers + +------+ + | Care Microsoft Bi Architect Name | Role | Phone | + +------+ + | Shakir Monzon MD | PCP | | + +------+ + Encounter Details +--------+------+ + + + | Date | Type | Department | Care Team | Description | +--------+------+ + + + | 10/14/ | Lab | Laboratory at [facility] | | Hepatic cirrhosis, | | 2017 | | [address] | | unspecified hepatic | | | | [place], [place] | | cirrhosis type | | | | [address] | | (HCC); Chronic | | | | [phone] | | hepatitis C without | | [...] + | FLOOD - AIRPORT - | [address] | [place] [address] | | | [place] | | | [...] + + + + + | [facility] | [address] | [place] [address] | | | [facility] | | | | | HEALTH + [...] + + + | LINDA[facility]KAVIN | [address] | [place] [address] | | | DIAGNOSTIC | [address] [...] | + + + + + | [facility] | [address] | [place] [address] | | | SERVICES, CORE | PARVEEN [...] modified from | [facility] | | original dynamite packing machine feeder's approved specifications. The performance | LABORATORY | | of the SWITCHBOX ASSEMBLER HIV Combo test, with or without confirmation, was not | SERVICES, | | tested in pediatric patients less than 2 years of age. [facility] | SPECIAL IMM + | [...] | + + + + + | [facility] | [address] | [place] [address] | | | SERVICES, SPECIAL | [address]VE[address] [...] + | FLOOD - AIRPORT - | [address] | [place] [address] | | | [place] | | | [...] | + + + + + | [facility] | [address] | [place] [address] | | | SERVICES, CORE | PARVEEN [...] by | | | | | | [employer],[address] | | | | | | Marky Tapia [facility] | | | | | | [address] | | | | | | [phone]. | | | | | | Júnior [...] [facility] | [address] | [place], [place] | | | UN[facility] | | [address] | | + + + + + [...] | + + + + + | [facility] | [address] | [place] [address] | | | SERVICES, CORE | PARVE[address] [...] | + + + + + | [facility] | [address] | [place] [address] | | | SERVICES, JORGE [address] | [...] | | | LABORATORY | | | [place] | | | SERVICES, | | | [...] | + + + + + | [facility] | [address] | [place] [address] | | | SERVICES, CORE | [address] | | | + + + + + documented in this encounter Visit Diagnoses + + | Diagnosis | + + | Hepatic cirrhosis, unspecified hepatic cirrhosis type (HCC) | + + | Chronic hepatitis C without hepatic coma (HCC) | + + documented in this encounter"
--- OUTSIDE RECORDS SUMMARY | ~2018-12-18 | XMS | Encounter Summary ---
Demographics + + + | Address | [address] | | | [place] [address] | + + + | Home Phone [...] + | Author | [facility] | + + + | Organization | [facility] [employer] [facility] | + + + | Address | Unknown | + + + | Phone | Unavailable | + + + Support + + +---------+ + | Name | Relationship | Address | Phone | + + +---------+ + | Mary Medellin | ECON | Unknown | | + + +---------+ + Care Team Providers + +------+ + | Care Adoption Agent Name | Role | Phone | [...] | | | | | Stay [address] [facility] | [place], [place] | | | | | [address] | [address] | | | | | Mailcode: UHN65 | | | | | | Vivian Mazariegos | | | | | | [address] [place], [place] | | | | | | [address] | | | | | | [phone] | | | +--------+ + + + [...]
--- OUTSIDE RECORDS SUMMARY | ~2018-12-18 | XMS | Encounter Summary ---
Demographics + + + | Address | [address] | | | [place] [address] | + + + | Home Phone [...] + | Author | [facility] [facility] | + + + | Organization | [facility] [employer] [facility] [...] Team Providers + +------+ + | Care Staking Press Operator Name | Role | Phone [...] | | | | | artery | [place] | [facility] | | | | | disease) | Health | Rd [place], | | | | | Procedures | Center | [place] | | | | | CONSULT TO | [address] | [address] | | | | | CARDIOLOGY | [place] | Phone: | | | | | MS NEW | Way | [phone] | | | | | PATIENT | [place], | Fax: | | | | | [place] | [place] [address] | [phone] | | | | | EST PATIENT | Phone: | | | | | | LEVEL [address] | [phone] | | | | | | | Fax: | | | | | | | [phone] | | + +--------+ + + + [...] disease, angina | | | | [address] | [address] | presence | | | | Mailcode: DKH652 | [place], [place] | unspecified, | | | | [facility] | [address] | unspecified vessel | | | | [address], | [phone] | or lesion type, | | | | [place] [address] | | unspecified whether | | | | [phone] | | [place] or | | | | | | transplanted heart | | | | | | (Primary Dx); | | | | | | Coronary artery | | | | | | disease involving | | | | | | [place] coronary | | | | | | artery of [place] | | | | | | heart [...] per Dr. Gan's note. Bill Iglesias DO Patient Observer Clinical centura technical lead senior developer/ Division of Cardiovascular Medicine Michelle Velez MD - 05/25/2017 4:00 PM PDT [facility] Cardiology Clinic Consult Name: Mr. Bret Espinal [...] Espinal presented initially in early April to [facility] with an episode of chest daisy [...] RCA. -will request angiogram be pushed from [facility] in [place] -continue metoprolol -continue losartan -continue rosuvastatin (unable [...] review. ADDEND: Angiogram requested and uploaded into [employer]. Case reviewed with Dr. Nazario, who recommended [...] s. 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 I stated I would be happy to see him back at any time. He will continue with regular followups with his primary care provider. Thank you for the interesting consultation. This patient was discussed with my attending , Dr. Iglesias, who agrees with my assessment and plan unless otherwise noted. Michelle Gan MD Cardiovascular Medicine Fellow [place] [facility] [place] [facility] and [facility], [place] Pager [phone] documented in this enc ounter Plan of [...] whether | | | | | | [place] [...] [facility] OF | [address] | [place], [place] | | | CARDIOLOGY | [address] | [address] | | + + + + + documented in this encounter Visit Diagnoses + + | Diagnosis | + + | Coronary artery disease, angina presence unspecified, unspecified vessel or lesion | | type, unspecified whether [place] or transplanted heart - Primary | + + | Coronary artery disease involving [place]gi[place] coronary artery of [place] heart without | | angina pectoris | + + | Hyperlipidemia, unspecified hyperlipidemia type | + + | Cirrhosis of liver with ascites, unspecified hepatic cirrhosis type (HCC) | + + documented in this encounter"
--- OUTSIDE RECORDS SUMMARY | ~2018-12-18 | XMS | Encounter Summary ---
Demographics + + + | Address | [address] | | | [place] [address] | + + + | Home Phone [...] + + | Author | [facility] | + + + | Organization | [facility] | + + [...] Providers + +------+ + | Care Manager Operations And Procurement Name | Role | Phone | + +------+ + | Shakir Monzon MD | PCP | | + +------+ + Encounter Details +--------+ + + + + | Date | Type | Department | Care Team | Description | +--------+ + + + + | 06/10/ | Document-Sc | Health Information | Unknown . | | | 2018 | anned | Services [address] | | | | | | [address] | | | | | | Mailcode: OP17A | | | | | | [facility] | | | | | | [place], [place] | | | | | | [address] | | | | | | [phone] | | | +--------+ + + + [...]
--- OUTSIDE RECORDS SUMMARY | ~2018-12-18 | XMS | Encounter Summary ---
Demographics + + + | Address | [address] | | | [place] [address] | + + + | Home Phone [...] + + | Author | [facility] [employer] [facility] | + + + | Organization | [facility] [employer] Place [employer] [facility] | + [...] Providers + +------+ + | Care Data Warehouse Specialist Name | Role | Phone | [...] Lab Order | | 2017 | | [place] at [facility] [address] | [address] | | | | | [address] | [address] | | | | | Mailcode: OC8D | [place], [place] | | | | | [facility] | [address] | | | | | and [address], | [phone] | | | | | [address] | | | | | | [place], [place] | | | | | | [address] | | | | | | [phone] | | | +--------+ + + + [...]
[~2018-12-18 17:31] MED LIST changes: +CIPRO HC OTIC S10 ML AD; +NEURONTIN300 MG PO
--- OUTSIDE RECORDS SUMMARY | 2018-12-18 17:34 | XMS ---
PreManage Notification: BEHZAD LANDON Security Risk Control Director Events No recent Security Events currently on file CRITERIA MET - [facility] - Has Care Guidelines CARE PROVIDERS ANDREEA CHILDRESS [facility] 05/16/2018-Current PHONE: Unknown REBECCA RIZZO Nurse Practitioner 08/30/2018-Current PHONE: [phone] DR ANDREEA CHILDRESS Primary Care Current PHONE: [phone] Ciaran has no Care Guidelines for this patient. 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 \T\middot;\T\nbsp; PLEASE REFER PATIENT TO [facility] FOR NON EMERGENT MEDICAL NEEDS. \T\middot;\ T\nbsp; [facility] CAN SEE PATIENTS SAME DAY FOR APTS IF PATIENT CALLS FIRST THING IN THE MORNING. [place] VISIT COUNT (12 MO.) 3 [facility] [place] TOTAL 3 NOTE: Visits indicate total known visits. ED/UCC VISIT TRACKING (12 MO.) 12/18/2018 17:31 [facility] [place] TYPE: Emergency COMPLAINT: - ABD PAIN 08/29/2018 16:16 [facility] [place] TYPE: Emergency COMPLAINT: - VISION LOSS RT EYE DIAGNOSES: - Acquired absence of other specified parts of digestive tract - Old myocardial infarction - adjunct faculty for medical terminology (current) use of insulin - 1 Type 2 diabetes mellitus without complications - Acute embolism and thombos unsp deep veins of l low extrem - Unspecified otitis externa, left ear - OTHER SPECIFIED DISORDERS OF EYE AND ADNEXA - Other specified disorders of eye and adnexa - Unspecified visual disturbance - Other terminal operations manager (current) drug therapy - Essential (primary) hypertension 05/13/2018 11:45 [facility] [place] TYPE: Emergency COMPLAINT: - GALL TUBE ISSUES DIAGNOSES: - adjunct faculty for medical terminology (current) use of systemic steroids - Essential (primary) hypertension - Encounter for fit/adjst of non-vascular catheter - adjunct faculty for medical terminology (current) use of opiate analgesic - 1 Type 2 diabetes mellitus without complications - Other intermediate (current) drug therapy INPATIENT VISIT TRACKING (12 MO.) No inpatient visits to display in this time frame [email or web address]
[2018-12-18] MEDS ORDERED: ELIQUIS5 M1 PO (17:57)
== END 2018-12-18 20:38 | disposition home or self-care (01) ==
LOC: ED 17:31
DX: R10.9 Unspecified abdominal pain (principal); R11.0 Nausea
CPT/HCPCS: 80053; 81001; 83605; 83690; 85025; 85610; 99284; J2405

== ENCOUNTER 2019-01-07 09:24 | Emergency (ER) | payer OTHER ==
[~2019-01-07] VITALS: Ht 177.8 cm; Wt 109.0 kg
--- OUTSIDE RECORDS SUMMARY | ~2019-01-07 | XMS | Encounter Summary ---
Demographics + + + | Address | [address] | | | [place] [address] | + + + | Home Phone | | + + + | Preferred Language | Unknown | + + + | Marital Status | Single | + + + | Mu-Ism Affiliation | Unknown | + + + | Race | Unknown | + + + | Ethnic Group | Unknown | + + + Author + + + | Author | [facility] | | | and [place] | + + + | Organization | [facility] | | | and [place] | + + + | Address | Unknown | + + + | Phone | Unavailable | + + + Support + + +---------+ + | Name | Relationship | Address | Phone | + + +---------+ + | Mary Medellin | ECON | Unknown | | + + +---------+ + Care Team Providers + +------+ + | Care Personal Consultant Name | Role | Phone | + +------+ + | Shakir Monzon DO | PCP | | + +------+ + Encounter Details +--------+ + + + + | Date | Type | Department | Care Team | Description | +--------+ + + + + | 05/04/ | Episode | [facility] | Brandi Serrano, | | | 2016 | Changes | GASTROENTEROLOGY | RN | | | | | [address] [place] | | | | | | [address] [place] | | | | | | [address] | | | | | | [phone] | | | +--------+ + + + + Social History + + + +--------+------+ | Tobacco Use | Types | Packs/Day | Years | Date | | | | | Used | | + + + +--------+------+ | Current Every Day | Cigarettes | 0.25 | 45 | | | Smoker | | | | | + + + +--------+------+ + +---+---+---+ | Smokeless Tobacco: | | | | | Never Used | | | | + +---+---+---+ + + +---------+ + | Alcohol Use | Drinks/Week | oz/Week | Comments | + + +---------+ + | Yes | 0 Standard drinks | 0.0 | 3 beers in the past | | | or equivalent | | 4 months | + + +---------+ + + + + | Sex Assigned at | Date Recorded | | | | + + + | Not on file | | + + + + + + + | Job Start Date | Occupation | Industry | + + + + | Not on file | Not on file | Not on file | + + + + + + + + | Travel History | Travel Start | Travel End | + + + + + + | No recent travel history available. | + + documented as of this encounter Plan of Treatment +--------+---------+ + + + | Date | Type | Specialty | Care Team | Description | +--------+---------+ + + + | 04/06/ | Office | Cardiology | Lakisha Kahn DO | | | 2019 | Visit | | [address] | | | | | | [place] | | | | | | [address] | | | | | | | | +--------+---------+ + + + documented as of this encounter Visit Diagnoses Not on filedocumented in this encounter"
--- OUTSIDE RECORDS SUMMARY | ~2019-01-07 | XMS | Encounter Summary ---
Demographics + + + | Address | [address] | | | [place] [address] | + + + | Home Phone | | + + + | Preferred Language | Unknown | + + + | Marital Status | Single | + + + | Latter-Day Affiliation | Unknown | + + + | Race | Unknown | + + + | Ethnic Group | Unknown | + + + Author + + + | Author | [facility] | | | and [place] | + + + | Organization | [facility] | | | and [...] Team Providers + +------+ + | Care Senior Producer Name | Role | Phone | + +------+ + | Shakir Monzon DO | PCP | | + +------+ + Reason for Visit +--------+ + | Reason | Comments | +--------+ + | Other | Conor ROSS | +--------+ + Encounter Details +--------+ + + + + | Date | Type | Department | Care Team | Description | +--------+ + + + + | 10/07/ | Documentati | [facility] | Kady Cortez | Nu (Conor | | 2019 | on | CARDIOLOGY BRANDYN [place], Hand I Tube Bender | [facility] ) | | | | [address] | | | | | | [place] | | | | | | [address] | | | | | | [phone] | | | +--------+ + + + + Social History + + + +--------+ + | Tobacco Use | Types | Packs/Day | Years | Date | | | | | Used | | + + + +--------+ + | Former Smoker | Cigarettes | 0.25 | 45 | Started: 12/30/1967 | + + + +--------+ + + +---+---+---+ | Smokeless Tobacco: | | | | | Never Used | | | | + +---+---+---+ + + +---------+ + | Alcohol Use | Drinks/Week | oz/Week | Comments | + + +---------+ + | No | 0 Standard drinks | 0.0 | 3 beers in the past | | | or equivalent | | 4 months. Currently | | | | | sober from alcohol | | | | | >2 years. | + + +---------+ + + + [...] [address] | | | | | | [place] | | | | | | [address] | | | | | | | | +--------+---------+ + + + documented as of this encounter Visit Diagnoses Not on filedocumented in this encounter"
--- OUTSIDE RECORDS SUMMARY | ~2019-01-07 | XMS | Encounter Summary ---
Demographics + + + | Address | [address] | | | [place] [address] | + + + | Home Phone | | + + + | Preferred Language | Unknown | + + + | Marital Status | Single | + + + | Yazidism Affiliation | NRP | + + + | Race | or | + + + | Ethnic Group | Not or | + + + Author + + + | Author | [facility] | + + + | Organization | [facility] | + + + | Address | Unknown | + + + | Phone | Unavailable | + + + Support + + +---------+ + | Name | Relationship | Address | Phone | + + +---------+ + | Mary Medellin | ECON | Unknown | | + + +---------+ + Care Team Providers + +------+ + | Care Nonprofit Financial Controller Name | Role | Phone | + +------+ + | Shakir Monzon MD | PCP | | + +------+ + Encounter Details +--------+ + + + + | Date | Type | Department | Care Team | Description | +--------+ + + + + | 03/01/ | Telephone | Dig[facility]ive [facility] | Clinton Morillo, | | | 2019 | | Center at [facility] [address] | [address] | | | | | [address] | [facility] | | | | | Mailcode: Center | [place], [place] | | | | | for Health and | [address] | | | | | Healing, [address] | [phone] | | | | | [place], [place] | | | | | | [address] | | | | | | [phone] | | | +--------+ + + + + Social History + + + +--------+------+ | Tobacco Use | Types | Packs/Day | Years | Date | | | | | Used | | + + + +--------+------+ | Former Smoker | Cigarettes | 0.5 | 40 | | + + + +--------+------+ + +------+---+---+ | Smokeless Tobacco: | Chew | | | | Former User | | | | + +------+---+---+ + + +---------+ + | Alcohol Use [...]
--- OUTSIDE RECORDS SUMMARY | ~2019-01-07 | XMS | Encounter Summary ---
Demographics + + + | Address | [address] | | | [place] [address] | + + + | Home Phone | | + + + | Preferred Language | Unknown | + + + | Marital Status | Single | + + + | Tenriism Affiliation | NRP | + + + | Race | or | + + + | Ethnic Group | Not or | + + + Author + + + | Author | [facility] | + + + | Organization | [facility] [employer] [facility] | + + + | Address | Unknown | + + + | Phone | Unavailable | + + + Support + + +---------+ + | Name | Relationship | Address | Phone | + + +---------+ + | Mary Medellin | ECON | Unknown | | + + +---------+ + Care Team Providers + +------+ + | Care Tandem Mill Roller Name | Role | Phone | + +------+ + | Shakir Monzon MD | PCP | | + +------+ + Encounter Details +--------+ + + + + | Date | Type | Department | Care Team | Description | +--------+ + + + + | 08/07/ | Procedure | Diagnostic Imaging | | | | 2018 | Pass | Services at [facility] | | | | | | [address] | | | | | | [place] Mailcode: | | | | | | [address] [facility] | | | | | | [place], [place] | | | | | | [address] | | | | | | [phone] | | | +--------+ + + + + Social History + + + +--------+ + | Tobacco Use | Types | Packs/Day | Years | Date | | | | | Used | | + + + +--------+ + | Former Smoker | Cigarettes | | | Quit: 03/15/2017 | + + + +--------+ + + +---+---+---+ | Smokeless Tobacco: | | | | | Never Used | | | | + +---+---+---+ + + + | Sex Assigned at [...]
--- OUTSIDE RECORDS SUMMARY | ~2019-01-07 | XMS | Encounter Summary ---
Demographics + + + | Address | [address] | | | [place] [address] | + + + | Home Phone | | + + + | Preferred Language | Unknown | + + + | Marital Status | Single | + + + | Gnosticist Affiliation | NRP | + + + | Race | or | + + + | Ethnic Group | Not or | + + + Author + + + | Author | [facility] | + + + | Organization | [facility] [facility] | + + + | Address | Unknown | + + + | Phone | Unavailable | + + + Support + + +---------+ + | Name | Relationship | Address | Phone | + + +---------+ + | Mary Medellin | ECON | Unknown | | + + +---------+ + Care Team Providers + +------+ + | Care Curam Developer Name | Role | Phone | + +------+ + | Shakir Monzon MD | PCP | | + +------+ + Reason for Visit + + + | Reason | Comments | + + + | Question | | + + + Encounter Details +--------+ + + + + | Date | Type | Department | Care Team | Description | +--------+ + + + + | 12/13/ | Telephone | Dig[facility]ive Health | Clinton Morillo, | Question | | 2018 | | Center at [facility] [address] | [address] | | | | | [place] | [address] | | | | | Mailcode: Center | [place], [place] | | | | | and | [address] | | | | | [place] [address] | [phone] | | | | | [place], [place] | | | | | | [address] | | | | | | [phone] | | | +--------+ + + + [...]
--- OUTSIDE RECORDS SUMMARY | ~2019-01-07 | XMS | Encounter Summary ---
Demographics + + + | Address | [address] | | | [place] [address] | + + + | Home Phone | | + + + | Preferred Language | Unknown | + + + | Marital Status | Single | + + + | Christianity Affiliation | NRP | + + + | Race | or | + + + | Ethnic Group | Not or | + + + Author + + + | Author | [facility] | + + + | Organization | [facility] [employer] [facility] | + + + | Address | Unknown | + + + | Phone | Unavailable | + + + Support + + +---------+ + | Name | Relationship | Address | Phone | + + +---------+ + | Mary Medellin | ECON | Unknown | | + + +---------+ + Care Team Providers + +------+ + | Care Learning Designer Name | Role | Phone | + +------+ + | Shakir Monzon MD | PCP | | + +------+ + Reason for Visit + + + | Reason | Comments | + + + | Lab Order | | + + + Encounter Details +--------+ + + + + | Date | Type | Department | Care Team | Description | +--------+ + + + + | 10// | Telephone | Dig[facility]ive Health | Sol[place] Bessy Short, | Lab Order | | 2017 | | [place] [facility] [address] | [address] | | | | | [address] | [address] [place] | | | | | Mailcode: [address] | [place], [place] | | | | | [facility] | [address] | | | | | and [place], | [phone] | | | | | [address] | | | | | | [place], [place] | | | | | | [address] | | | | | | [phone] | | | +--------+ + + + + Social History + + + +--------+------+ | Tobacco Use | Types | Packs/Day | Years | Date | | | | | Used | | + + + +--------+------+ | Current Every Day | Cigarettes | | | | | Smoker | | | [...] + + documented as of this encounter Procedures + +--------+ + + + | Procedure Name | Priori | Date/Time | Associated Diagnosis | Comments | | | ty | | | | + +--------+ + + + | HEPATITIS C | Routin | 12/01/2016 | | Results for this | | QUANTITATIVE, PLASMA | e | | | procedure are in the | | | | | | results section. | + +--------+ + + + | INR | Routin | 12/01/2016 | | Results for this | | | e | | | procedure are in the | | | | | | results section. | + +--------+ + + + | COMPLETE METABOLIC | Routin | 12/01/2016 | | Results for this | | SET | e | | | procedure are in the | | (NA,K,CL,CO2,BUN,CRE | | | | results section. | | AT,GLUC,CA,AST,ALT,B | | | | | | NIC TOTAL,ALK | | | | | | PHOS,ALB,PROT TOTAL) | | | | | + +--------+ + + + | CBC ONLY | Routin | 12/01/2016 | | Results for this | | | e | | | procedure are in the | | | | | | results section. | + +--------+ + + + documented in this encounter Results INR (12/01/2016) + +---------+ + + + | Component | Value | Ref Range | Performed | Pathologist | | | | | At | Signature | + +---------+ + + + | INR | 1.2 (H) | INR | NON [facility] | | | | | | LAB | | + +---------+ + + + + + | Specimen | + + | Blood - Blood | | (substance) | + + + +---------+ + + | Performing | Address | City/State/Zipcode | Phone Number | | Organization | | | | + +---------+ + + | NON [facility] | | | | + +---------+ + + HEPATITIS C QUANTITATIVE, PLASMA (12/01/2016) + + + + + + | Component | Value | Ref Range | Performed | Pathologist | | | | | At | Signature | + + + + + + | HEP C PCR, | detected | IU/mL | NON [facility] | | | QUANT | | | LAB | | + + + + + + + + | Specimen | + + | Blood - Blood | | (substance) | + + + +---------+ + + | Performing | Address | City/State/Zipcode | Phone Number | | Organization | | | | + +---------+ + + | NON [facility] | | | | + +---------+ + + COMPLETE METABOLIC SET (NA,K,CL,CO2,BUN,CREAT,GLUC,CA,AST,ALT,BILI TOTAL,ALK PHOS,ALB,PROT TOTAL) (12/01/2016) + +---------+ + + + | Component | Value | Ref Range | Performed | Pathologist | | | | | At | Signature | + +---------+ + + + | GLUCOSE, | 239 (H) | mg/dL | NON [facility] | | | PLASMA | | | LAB | | | (LAB) | | | | | + +---------+ + + + | BUN, PLASMA | 10 | mg/dL | NON [facility] | | | (LAB) | | | LAB | | + +---------+ + + + | CREATININE | 0.80 | mg/dL | NON [facility] | | | PLASMA | | | LAB | | | (LAB) | | | | | + +---------+ + + + | ALBUMIN, | 2.8 (L) | g/dL | NON [facility] | | | PLASMA | | | LAB | | | (LAB) | | | | | + +---------+ + + + | BILIRUBIN | 1.0 | Transcutaneous | NON [facility] | | | TOTAL | | Bilirubinometer | LAB | | + +---------+ + + + | ALK PHOS | 72 | U/L | NON [facility] | | | | | | LAB | | + +---------+ + + + | AST(SGOT) | 30 | U/L | NON [facility] | | | | | | LAB | | + +---------+ + + + | SODIUM, | 140 | mmol/L | NON [facility] | | | PLASMA | | | LAB | | | (LAB) | | | | | + +---------+ + + + | POTASSIUM, | 4.0 | mmol/L | NON [facility] | | | PLASMA | | | LAB | | | (LAB) | | | | | + +---------+ + + + | ALT (SGPT) | 22 | U/L | NON [facility] | | | | | | LAB | | + +---------+ + + + + + | Specimen | + + | Blood - Blood | | (substance) | + + + +---------+ + + | Performing | Address | City/State/Zipcode | Phone Number | | Organization | | | | + +---------+ + + | NON [facility] | | | | + +---------+ + + CBC ONLY (12/01/2016) + + + + + + | Component | Value | Ref Range | Performed | Pathologist | | | | | At | Signature | + + + + + + | WHITE CELL | 5.8 | K/cu mm | NON [facility] | | | COUNT | | | LAB | | + + + + + + | RED CELL | 4.11 (L) | M/cu mm | NON [facility] | | | COUNT | | | LAB | | + + + + + + | HEMOGLOBIN | 14.8 | g/dL | NON [facility] | | | | | | LAB | | + + + + + + | HEMATOCRIT | 41.6 | % | NON [facility] | | | | | | LAB | | + + + + + + | PLATELET | 74 (L) | K/cu mm | NON [facility] | | | COUNT | | | LAB | | + + + + + + + + | Specimen | + + | Blood - Blood | | (substance) | + + + +---------+ + + | Performing | Address | City/State/Zipcode | Phone Number | | Organization | | | | + +---------+ + + | NON [facility] | | | | + +---------+ + + documented in this encounter Visit Diagnoses Not on filedocumented in this encounter"
--- OUTSIDE RECORDS SUMMARY | ~2019-01-07 | XMS | Encounter Summary ---
Demographics + + + | Address | [address] | | | [place] [address] | + + + | Home Phone | | + + + | Preferred Language | Unknown | + + + | Marital Status | Single | + + + | Jain Affiliation | Unknown | + + + | Race | Unknown | + + + | Ethnic Group | Unknown | + + + Author + + + | Author | [facility] | | | and [place] | + + + | Organization | [facility] | | | and [...] Team Providers + +------+ + | Care Cell Liner Name | Role | Phone | + +------+ + | Shakir Monzon DO | PCP | | + +------+ + Reason for Referral Evaluate & Treat (Routine) +--------+ + + + + + | Status | Reason | Specialty | Diagnoses / | Referred By | Referred To | | | | | Procedures | Contact | Contact | +--------+ + + + + + | Closed | Specialty | Transplant | Diagnoses | | Kalie | | | Services | Hepatology | Cirrhosis | Ludy | MD Derick | | | Required | | of liver | Lucila, | [address] | | | | | without | BR[employer]NELL OPERATOR [address] | | | | | ascites, | L[place], Stephen | [place], [place] | | | | | unspecified | [address] [place] | [address] | | | | | hepatic | [place] | Phone: | | | | | cirrhosis | [address] | [phone] | | | | | type (HCC) | Phone: | Fax: | | | | | | [phone] | [phone] | | | | | | Fax: | | | | | | | [phone] | | +--------+ + + + + + Reason for Visit + + + | Reason | Comments | + + + | Follow-up | HCV | + + + Evaluate & Treat (Routine) +--------+--------+ + + + + | Status | Reason | Specialty | Diagnoses / | Referred By | Referred To | | | | | Procedures | Contact | Contact | +--------+--------+ + + + + | Closed | | Nurse | Diagnoses | Johana, | Ludy, | | | | Practitioner | Hep | Mookie Gooden, | Lucila, | | | | / | C/pt/yellowh | PA-C [id number] | BROWNELL OPERATOR [address] | | | | Gastroenterol | awk/johana/ | CONF[address]ERATED | Lyle, Stephen | | | | ogy | [address] | [address] | [address] [place] | | | | | is sending | Anton, | [place], [place] | | | | | over auth on | [place] [address] | [address] Phone: | | | | | 03/10 | Phone: | [phone] | | | | | Procedures | [phone] | Fax: | | | | | OFFICE VISIT | Fax: | [phone] | | | | | REGULAR | [phone] | | +--------+--------+ + + + + Encounter Details +--------+---------+ + + + | Date | Type | Department | Care Team | Description | +--------+---------+ + + + | 02/06/ | Office | [facility] [place] | [place], | Cirrhosis of liver | | 2017 | Visit | GASTROENTEROLOGY | [place] [address] | without ascites, | | | | [address] [place] | [place], [address] | unspecified hepatic | | | | [address] [place], [place] | [place] | cirrhosis type (HCC) | | | | [address] | [address] | (Primary Dx); | | | | [phone] | | Hepatic | | | | | | encephalopathy | | | | | | (HCC); Helicobacter | | | | | | pylori infection; | | | | | | Marijuana use; | | | | | | Alcohol use | | | | | | disorder, moderate, | | | | | | in early remission | | | | | | (HCC); Chronic | | | | | | hepatitis C without | | | | | | hepatic coma (HCC) | +--------+---------+ + + + Social History + +-------+ +--------+------+ | Tobacco Use | Types | Packs/Day | Years | Date | | | | | Used | | + +-------+ +--------+------+ | Current Every Day | | | | | | Smoker | | | | | + +-------+ +--------+------+ + +---+---+---+ | Smokeless Tobacco: | | | | | Never Used | | | | + +---+---+---+ + + | Tobacco Cessation: Ready to Quit: No; Counseling Given: Yes | + + + + +---------+ + | Alcohol Use | Drinks/Week | oz/Week | Comments | + + +---------+ + | Yes | 0 Standard drinks | 0.0 | | | | or equivalent | | | + + +---------+ + [...] + + documented as of this encounter Last Filed Vital Signs + + + + + | Vital Sign | Reading | Time Taken | Comments | + + + + + | Blood Pressure | 130/74 | 03/23/2016 9:32 AM | | | | | PST | | + + + + + | Pulse | 73 | 03/23/2016 9:32 AM | | | | | PST | | + + + + + | Temperature | 36.7 C (98 F) | 03/23/2016 9:32 AM | | | | | PST | | + + + + + | Respiratory Rate | 16 | 03/23/2016 9:32 AM | | | | | PST | | + + + + + | Oxygen Saturation | 99% | 03/23/2016 9:32 AM | | | | | PST | | + + + + + | Inhaled Oxygen | - | - | | | Concentration | | | | + + + + + | Weight | 98 kg (216 lb) | 03/23/2016 9:32 AM | | | | | PST | | + + + + + | Height | - | - | | + + + + + | Body Mass Index | 30.55 | 07/10/2015 11:18 AM | | | | | PDT | | + + + + + documented in this encounter Progress Notes Brandi Serrano, SADA - 03/23/2016 12:20 PM PSTScheduled for egd prop (marijuana use) on 05/[address] Hunt. Referral entered for [facility] for liver transplantation; will send rona rds once approved; INR and AFP ordered per [facility] request, patient given order to take to [facility]; Insulin-dependent, told to half dose all diabetic medications night prior and none in A.M. For procedure, he verbalized understanding; received egd report from etelvina Mendoza in chart. PSR-- Please obtain ER records from [facility] from 02/17/16 for [facility] review. Ana sinclair signed by Brandi Serrano RN at 03/23/2016 3:34 PM PSTLucila Boston ARNP - 07/2016 9:53 AM PST Bret Espinal Jr. is a 60 y.o. male here for followup cirrhosis. History of present illness: Patient was last seen in the office 09/11/2015 for cirrhosis related to alcohol and Hepatiti s C. He had been drinking alcohol and using marijuana fairly regularly at that time. He last drank alcohol about 2 months ago. Has not used marijuana for about 2 weeks. Has not used any illegal or non prescription medications for the past 5 years. 02/17/2016, significant other had to take patient to ER due to confusion and decreased coordi nation. He was given lactulose three times per day and follow up with PCP. He tried to decre ased lactulose to twice per day and coordination again worsened. Significant other reports that EGD was done with Dr Silva about 2 months ago. They were adv ised to follow up with Dr Sharma. However, the episode of confusion overshadowed need to foll ow up with EGD. Denies ascites, jaundice, hematemesis, peripheral edema. No Known Allergies Past Medical History Diagnosis Date Type 2 diabetes mellitus (HCC) Hyperlipidemia Tobacco use disorder GERD (gastroesophageal reflux disease) Thrombocytopenia (HCC) Vitamin D deficiency Positive H. pylori test Localized, secondary osteoarthritis of the shoulder region Internal hemorrhoids without complication Lichen planus Dermatitis Past Surgical History Procedure Laterality Date Colonoscopy 2012 [place] Family History Problem Relation Age of Onset Alcohol abuse Diabetes Lymphoma Thyroid cancer Diabetes Mother Cancer Father Social History Social History Marital Status: Single Spouse Name: N/A Number of Children: N/A Years of Education: N/A Occupational History Not on file. Social History Main Topics Smoking status: Current Every Day Smoker Smokeless tobacco: Never Used Alcohol Use: 0.0 oz/week 0 Standard drinks or equivalent per week Drug Use: No Sexual Activity: Not on file Other Topics Concern Not on file Social History Narrative Review of systems: Constitutional:Denies any fevers, chills, or unintentional weight loss. Respiratory:Denies shortness of breath, cough or wheezing. Gastrointestinal:Negative except as stated above. Cardiovascular:Denies chest pain, palpitations, or swelling to legs Physical exam: General: well developed, well nourished, in no acute distress. Head: normocephalic and atraumatic Eyes: Sclera clear Mouth: MMM Lungs: Clear to auscultate bilaterally and throughout Heart: regular rate and rhythm Abdomen: Soft, non tender, non distended, bowel tones positive times 4 quadrants, negative Rosemary y's sign, negative rebound tenderness, no guarding, no hepatosplenomegaly palpated. Msk: symmetrical with no deformity, with normal posture and gait, normal strength. Extremities: no clubbing, cyanosis, edema, or deformity noted Neurologic: no focal deficits, cranial nerves II-XII grossly intact Skin: intact without lesions or rashes. Psych: alert and cooperative; normal mood and affect; normal attention span and concentration. Abstract on 03/20/2016 Component Date Value Ref Range Status Creatinine, External 02/17/2016 0.90 0.7 - 1.25 Final eGFR, External 02/17/2016 >60 60 - [id number] Final WBC, External 02/17/2016 6.2 4.5 - 11 Final HGB, External 02/17/2016 15.4 13.5 - 18 Final HCT, External 02/17/2016 46.6 41 - 50 Final PLT, External 02/17/2016 67* 140 - 440 Final RBC, External 02/17/2016 4.79 4.3 - 5.7 Final MCV, External 02/17/2016 95 81 - 99 Final RDW, External 02/17/2016 12.4 10.6 - 15 Final UA Blood, External 02/17/2016 250* 0 - 0 Final UA Glucose, External 02/17/2016 1000 Final UA Ketones, External 02/17/2016 Negative Final UA Ph, External 02/17/2016 6 5 - 9 Final UA Proteins, External 02/17/2016 30* 0 - 0 Final UA RBC, External 02/17/2016 30* 0 - 4 Final UA Specific Ray, External 02/17/2016 1.026 1.005 - 1.03 Final UA Leukocyte Esterase, External 02/17/2016 Negative Final Sodium, External 02/17/2016 136 132 - 143 Final Potassium, External 02/17/2016 4.0 3.6 - 5.1 Final Chloride, External 02/17/2016 111 95 - 112 Final Carbon Dioxide, External 02/17/2016 15* 19 - 31 Final Calcium, External 02/17/2016 8.9 8.4 - 10.2 Final Protein, Total, External 02/17/2016 7.4 6 - 8 Final Albumin, External 02/17/2016 3.2* 3.5 - 5 Final Bilirubin, Total, External 02/17/2016 1.7* 0 - 1.2 Final ALP, External 02/17/2016 71 30 - 128 Final AST, External 02/17/2016 124* 13 - 39 Final ALT, External 02/17/2016 131* 7 - 52 Final Troponin I, External 02/17/2016 <0.010 Final Glucose, External 02/17/2016 298* 70 - 100 Final BUN, External 02/17/2016 12 6 - 23 Final MCH 02/17/2016 32.0 26.0 - 33.0 pg Final MCHC 02/17/2016 34.0 31.0 - 37.0 % Final BASOPHILS % 02/17/2016 1.6* 1.0 % Final ANION GAP 02/17/2016 14 Final BUN/Creatinine Ratio 02/17/2016 13.3 Final Globulin 02/17/2016 4.2* 1.8 - 3.6 Final Albumin/Globulin Ratio 02/17/2016 0.6* 1.1 - 2.4 Final Ammonia 02/17/2016 122* 11 - 35 Final COLLECTION METHOD 1 02/17/2016 Clean Catch Final Color 02/17/2016 Yellow Final CLARITY 02/17/2016 Clear Final BILIRUBIN UA 02/17/2016 Negative Negative Final UROBILINOGEN UA 02/17/2016 1 mg/dL < 0.2 mg/dL, 1.0 mg/dL, 4.0 mg/dL, Normal, 1.0 E.U. /dL, 0.2 E.U./dL, 0.2 mg/dL, Negative, 1 mg/dL, <2.0 mg/dL Final NITRITE UA 02/17/2016 Negative Negative Final Bacteria, UA 02/17/2016 1+ Final CASTS 02/17/2016 Negative Final CRYSTAL UA 02/17/2016 Negative Final Epithelial Cells 02/17/2016 1+ Final WBC, UA 02/17/2016 0 Final Assessment 1. Cirrhosis of liver without ascites, unspecified hepatic cirrhosis type (HCC) Protime IN R Alpha Fetoprotein, Tumor Marker Referral [facility] Hepatology Case request: upper endoscopy; N/A likely secondary to HCV and alcohol use. 2. Hepatic encephalopathy (HCC) 3. Helicobacter pylori infection found on EGD 12/17/2015. Unsure if treated or eradication. 4. Marijuana use Case request: upper endoscopy; N/A 5. Alcohol use disorder, moderate, in early remission (HCC) 6. Chronic hepatitis C without hepatic coma (HCC) genotype 1a Plan: Hepatitis C Infection: Patient is genotype 1a. The patient most likely acquired the HCV in fection decades ago and has now progressed to cirrhosis. Due to evidence of decompensation, he will need consultation with transplant center to dete rmine if HCV treatment should be completed before or after liver transplant. He will need to remain sober for 6 months. Cirrhosis: Ordering labs to determine current MELD and Child-Chao score. Liver Transplantation: Patient is unsure if he is interested in being referred for evaluati on of liver transplantation. Will refer to [facility] for consultation regarding liver transplantation. Varices: Patient has had EGD to screen for esophageal varices. There is no history or varic eal bleed. He was found to have "moderate" esophageal varices. He was referred to this offic e for variceal banding. Patient to have EGD for further evaluation.The procedural techniques, risks, indications, a nd alternatives were discussed. Among the risks, are perforation, bleeding, infection, dusty rgic/adverse reactions to medications, and cardiovascular complications. Each of these coul d result in hospitalization, additional procedures (including surgery), or other life threat ening complications. Patient verbalized understanding.Patient to call with any questions or concerns prior to procedure. Ascites/Anasarca: Patient does not have a history of ascites. Patient is not on diuretics. This is controlling fluid overload. Discussed no salt diet (<2 grams per day). Encouraged small frequent meals with protein. Hepatic Encephalopathy: Patient does have evidence of encephalopathy. Current treatment inc ludes lactulose and rifaximin. There seems to be evidence of covert encephalopathy. There is evidence that patients with minimal encephalopathy have higher rates of car accidents. Because there is no accurate method of measuring HE. Patient is advised not to drive. He is to continue with lactulose tid. Will also check with pharmacy to ensure he is taking rifaximin 550 mg bid not 200 mg bid. Hepatocellular Carcinoma Screening: Patient is at increased risk of developing HCC. Patien t will need liver ultrasound, CBC, CMP, INR, and AFP every 6 months. Metabolic Bone Disease: half-way Cirrhotics are at increased risk of developing osteopenia and osteoporosis. Oral bisphosphonates have been shown to increase the risk of variceal ble eding in patients with known varices. IV bisphosphonates are recommended. Recommend DEXA sca ns and treatment if needed by PCP. Insulin Resistance/Diabetes: Approximately 30% of cirrhotic patients will develop insulin r esistance or diabetes. Recommend routine screening and treatment by PCP. Discussed the need for better blood sugar control also recommended for liver transplantatio n. Vaccinations: Patient should remain up to date with immunizations. All patients with chroni c liver disease should have Hepatitis A and Hepatitis B vaccinations complete if not already immune. To be done with PCP. Pain Management: Patients with cirrhosis should NOT use NSAIDS. These are associated with h igher rate of renal insufficiency and GI bleeding. We prefer these patient to use acetaminop hen for pain control with a maximum dose of 2 grams per day. The use of narcotics should als o be kept to a minimum, as this can cause or exacerbate hepatic encephalopathy. Ultram or no n-narcotic regimens, such as TCAs or neurontin are preferred if acetaminophen is inadequate. With decompensation of liver disease Ultram needs to be dose reduced. Smoking Cessation: This patient is currently smoking. Discussed cessation. When patient is ready to stop smoking buproprion or nicotine patches are safe. Discuss further with PCP. Adv ised that he will need to stop all nicotine/tabacco products in order to be considered for l iver transplantation. Unsure if he was treated or tested for eradication for Helicobacter pylori infection found on EGD 12/17/2015. Will be retested during EGD. Will follow up with results. Patient is to call with any question or concerns. Any fevers, chills, chest pain, SOB or other serious symptoms patient is to call the office or go to ER . Cc: Shakir Monzon DO This note was dictated using voice recognition software. Please contact me if there are an y questions regarding its content. documented in t his encounter Plan of Treatment +--------+---------+ + + + | Date | Type | Specialty | Care Team | Description | +--------+---------+ + + + | 04/06/ | Office | Cardiology | Lakisha Kahn DO | | | 2019 | Visit | | [address] | | | | | | [place], [place] | | | | | | [id number] | | | | | | | | +--------+---------+ + + + + +------+--------+ + + | Name | Type | Priori | Associated Diagnoses | Order Schedule | | | | ty | | | + +------+--------+ + + | Protime INR | Lab | Routin | Cirrhosis of liver | Expected: 03/23/2016 | | | | e | without ascites, | (Approximate), | | | | | unspecified hepatic | Expires: 03/24/2017 | | | | | cirrhosis type (HCC) | | + +------+--------+ + + | Alpha Fetoprotein, | Lab | Routin | Cirrhosis of liver | Expected: 03/23/2016 | | Tumor Marker | | e | without ascites, | (Approximate), | | | | | unspecified hepatic | Expires: 03/24/2017 | | | | | cirrhosis type (HCC) | | + +------+--------+ + + + + +--------+ + + | Name | Type | Priori | Associated Diagnoses | Order Schedule | | | | ty | | | + + +--------+ + + | Referral [facility] | Outpatient | Routin | Cirrhosis of liver | Expected: 03/23/2016 | | Hepatology | Referral | e | without ascites, | (Approximate), | | | | | unspecified hepatic | Expires: 03/23/2017 | | | | | cirrhosis type (HCC) | | + + +--------+ + + documented as of this encounter Procedures + +--------+ + + + | Procedure Name | Priori | Date/Time | Associated Diagnosis | Comments | | | ty | | | | + +--------+ + + + | LABS - EXTERNAL SCAN | | 03/23/2016 | | Results for this | | | | 12:00 AM | | procedure are in the | | | | PST | | results section. | + +--------+ + + + | LABS - EXTERNAL SCAN | | 02/17/2016 | | Results for this | | | | 12:00 AM | | procedure are in the | | | | PST | | results section. | + +--------+ + + + | PATHOLOGY - EXTERNAL | | 12/17/2015 | | Results for this | | SCAN | | 12:00 AM | | procedure are in the | | | | PDT | | results section. | + +--------+ + + + | DIAGNOSTIC REPORT - | | 12/17/2015 | | Results for this | | EXTERNAL SCAN | | 12:00 AM | | procedure are in the | | | | PDT | | results section. | + +--------+ + + + documented in this encounter Results LABS - EXTERNAL SCAN (03/23/2016 12:00 AM PST) + + + | Narrative | Performed At | + + + | Ordered by an | | | unspecified provider. | | + + + LABS - EXTERNAL SCAN (02/17/2016 12:00 AM PST) + + + | Narrative | Performed At | + + + | Ordered by an | | | unspecified provider. | | + + + DIAGNOSTIC REPORT - EXTERNAL SCAN (12/17/2015 12:00 AM PDT) + + + | Narrative | Performed At | + + + | Ordered by an | | | unspecified provider. | | + + + PATHOLOGY - EXTERNAL SCAN (12/17/2015 12:00 AM PDT) + + + | Narrative | Performed At | + + + | Ordered by an | | | unspecified provider. | | + + + documented in this encounter Visit Diagnoses + + | Diagnosis | + + | Cirrhosis of liver without ascites, unspecified hepatic cirrhosis type (HCC) - Primary | + + | Hepatic encephalopathy (HCC) Hepatic encephalopathy | + + | Helicobacter pylori infection Helicobacter pylori (H. pylori) | + + | Marijuana use Cannabis abuse, unspecified | + + | Alcohol use disorder, moderate, in early remission (HCC) | + + | Chronic hepatitis C without hepatic coma (HCC) | + + documented in this encounter
--- OUTSIDE RECORDS SUMMARY | ~2019-01-07 | XMS | Encounter Summary ---
Demographics + + + | Address | [address] | | | [place] [address] | + + + | Home Phone | | + + + | Preferred Language | Unknown | + + + | Marital Status | Single | + + + | Restoration Affiliation | Unknown | + + + | Race | Unknown | + + + | Ethnic Group | Unknown | + + + Author + + + | Author | [facility] | | | and [place] | + + + | Organization | [facility] | | | [...] Team Providers + +------+ + | Care Research Test Engine Operator Name | Role | Phone | + +------+ + | Shakir Monzon DO | PCP | | + +------+ + Reason for Visit Auth/Cert +--------+--------+ + + + + | Status | Reason | Specialty | Diagnoses / | Referred By | Referred To | | | | | Procedures | Contact | Contact | +--------+--------+ + + + + | | | | Diagnoses | | | | | | | Cirrhosis | | | | | | | of liver | | | | | | | without | | | | | | | ascites, | | | | | | | unspecified | | | | | | | hepatic | | | | | | | cirrhosis | | | | | | | type (HCC) | | | | | | | (K74.60); | | | | | | | esophageal | | | | | | | varices | | | | | | | I85.00; | | | | | | | Insulin | | | | | | | dependent | | | | | | | E66.9; DARIEL | | | | | | | on CPAP | | | | | | | G47.33 | | | | | | | Procedures | | | | | | | [place] | | | | | | | ESOPHAGOGAST | | | | | | | RODUODENOSCO | | | | | | | PY TRANSORAL | | | | | | | DIAGNOSTIC | | | | | | | [place] EGD | | | | | | | TRANSORAL | | | | | | | BIOPSY | | | | | | | SINGLE/MULTI | | | | | | | PLE [place] | | | | | | | ANESTH,UGI | | | | | | | ENDOSCOPY | | | | | | | EGD | | | +--------+--------+ + + + + Encounter Details +--------+ + + + + | Date | Type | Department | Care Team | Description | +--------+ + + + + | 12/10/ | Anesthesia | [facility] | [facility] | | | 2017 | Event | [facility] | Artem PEREIRA MD [address] | | | | | [address] | [address] [place] | | | | | [place], [place] | [place] [address] | | | | | [address] | [phone] | | | | | [phone] | | | +--------+ + + + + Anesthesia Record + + + + + | Procedure Name | Responsible | Anesthesia Start | Anesthesia Stop Time | | | Anesthesiologist | Time | | + + + + + | MALIA (N/A Nellie) | Josiah Ortiz | [birth year] | 12/10/16911 | | | MD KELLI | | | + + + + + +----+---+ + + | Da | T | Event | Comment | | te | i | | | | | m | | | | | e | | | +----+---+ + + | 10 | 0 | | | | /2 | 8 | | | | 6/ | 1 | | | | 20 | 7 | | | | 17 | | | | +----+---+ + + | | 0 | An Checkout | Pre-use anesthesia machine/equipment checkout. | | | 8 | | | | | 4 | | | | | 5 | | | +----+---+ + + | | 0 | An Start | Reassessment prior to anesthesia induction/procedure. | | | 8 | | | | | 5 | | | | | 1 | | | +----+---+ + + | | 0 | AN | Per surgeon request | | | 8 | Antibiotic | | | | 5 | declined | | | | 2 | | | +----+---+ + + | | 0 | First | | | | 8 | Inc/Proc St | | | | 5 | | | | | 5 | | | +----+---+ + + | | 0 | an stop | | | | 9 | data | | | | 0 | | | | | 8 | | | +----+---+ + + | | 0 | An Stop | Patient handed off to recovery nurse. | | | 1 | | | | | 2 | | | +----+---+ + + +------+ | Meds | +------+ + + + | Name | Total | + + + | propofol (DIPRIVAN) injection | 293.7 mg | | (bolus) (20 mL) | | + + + | lidocaine 2% | 100 mg | + + + | lactated ringers (LR) infusion | 150 mL | + + + + + | Name | + + | O2 Flow Rate (L/Min) | + + + + | No blood administrations on file. | + + +--------+ + + + | Type | Details | Placement | Removal | +--------+ + + + | Periph | 12/10/16; 0802; Right; Distal; | 12/10/16 0802 by | 12/10/16943 by | | eral | Forearm; [id number] catheter | Taylor Jauregui, | Catherine Landers RN | | IV | system; 20 gauge; distraction; | RN | | | | no longer indicated, | | | | | catheter/device intact, removed | | | | | per policy/procedure, site care | | | | | per policy/procedure; healing | | | | | within expectations; 12/10/16; | | | | | 0944 | | | +--------+ + + + documented in this encounter Social History + + + +--------+------+ | [...] | | | | | [place], [place] | | | | | | [phone] | | | | | | | | +--------+---------+ + + + documented as of this encounter Visit Diagnoses Not on filedocumented in this encounter Administered Medications + +---------+ +------+------+------+ | Medication Order | MAR | Action | Dose | Rate | Site | | | Action | Date | | | | + +---------+ +------+------+------+ | lactated ringers (LR) infusion | New Bag | 12/11/19 | | | | | at 100 mL/hr, Intravenous, | | 17 8:51 | | | | | CONTINUOUS, Starting Cece 12/10/16 | | AM PDT | | | | | at 0800, Pre-op | | | | | | + +---------+ +------+------+------+ +---+---+ | | | +---+---+ + +-------+ +--------+---+---+ | lidocaine (PF) 2% injection | Given | 12/11/19 | 100 mg | | | | Intravenous, PRN, Starting Cece | | 17 8:51 | | | | | 12/10/16 at 0851, Anesthesia | | AM PDT | | | | | Intra-op | | | | | | + +-------+ +--------+---+---+ +---+---+ | | | +---+---+ + +---------+ + +--------+---+ | propofol (DIPRIVAN) injection | New Bag | 12/11/19 | 200 | 117.5 | | | Intravenous, CONTINUOUS PRN, | | 17 8:52 | mcg/kg/m | mL/hr | | | Starting Cece 12/10/16 at 0852, | | AM PDT | in | | | | Anesthesia Intra-op | | | | | | + +---------+ + +--------+---+ +---+---+ | | | +---+---+ documented in this encounter"
--- OUTSIDE RECORDS SUMMARY | ~2019-01-07 | XMS | Encounter Summary ---
Demographics + + + | Address | [address] | | | [place] [address] | + + + | Home Phone | | + + + | Preferred Language | Unknown | + + + | Marital Status | Single | + + + | Buddhist Affiliation | Unknown | + + + | Race | Unknown | + + + | Ethnic Group | Unknown | + + + Author + + + | Author | [facility] | | | and [place] | + + + | Organization | [facility] | | | and [...] Team Providers + +------+ + | Care Associate Director Of Sales Name | Role | Phone | + +------+ + | Shakir Monzon DO | PCP | | + +------+ + Reason for Visit + + + | Reason | Comments | + + + | Chest Pain | | + + + Auth/Cert +--------+--------+ + + + + | Status | Reason | Specialty | Diagnoses / | Referred By | Referred To | | | | | Procedures | Contact | Contact | +--------+--------+ + + + + | | | | Diagnoses | | | | | | | Acute | | | | | | | cholecystiti | | | | | | | s Gram | | | | | | | negative | | | | | | | sepsis (HCC) | | | | | | | | | | | | | | Thrombocytop | | | | | | | enia (HCC) | | | | | | | Insulin | | | | | | | dependent | | | | | | | type 2 | | | | | | | diabetes | | | | | | | mellitus, | | | | | | | uncontrolled | | | | | | | (HCC) | | | | | | | Chronic | | | | | | | hepatitis C | | | | | | | without | | | | | | | hepatic coma | | | | | | | (HCC) | | | | | | | Alcohol use | | | | | | | disorder, | | | | | | | moderate, in | | | | | | | early | | | | | | | remission | | | | | | | (HCC) | | | | | | | Cirrhosis of | | | | | | | liver | | | | | | | without | | | | | | | ascites, | | | | | | | unspecified | | | | | | | hepatic | | | | | | | cirrhosis | | | | | | | type (HCC) | | | | | | | Gastroesopha | | | | | | | geal reflux | | | | | | | disease, | | | | | | | esophagitis | | | | | | | presence not | | | | | | | specified | | | | | | | Acute | | | | | | | cholecystiti | | | | | | | s | | | | | | | Acute | | | | | | | | | | | | | | cholecystiti | | | | | | | s [K81.0] | | | | | | | Procedures | | | | | | | ERCP | | | +--------+--------+ + + + + Encounter Details +--------+---------+ + + + | Date | Type | Department | Care Team | Description | +--------+---------+ + + + | 04/28/ | Surgery | [facility] | Bright Triana MD | [facility] | | 2017 | | MED CTR [facility] | [address] | | | | | [address] | [place] | | | | | [place] | [id number] | | | | | [id number] | | | | | | [phone] | | | +--------+---------+ + + + Social History + + [...] + + + | Blood Pressure | 129/86 | 04/28/2017 3:24 PM | | | | | PDT | | + + + + + | Pulse | 72 | 04/28/2017 3:24 PM | | | | | PDT | | + + + + + | Temperature | 36.6 C (97.9 F) | 04/28/2017 3:24 PM | | | | | PDT | | + + + + + | Respiratory Rate | 25 | 04/28/2017 3:24 PM | | | | | PDT | | + + + + + | Oxygen Saturation | 96% | 04/28/2017 3:24 PM | | | | | PDT | | + + + + + | Inhaled Oxygen | - | - | | | Concentration | | | | + + + + + | Weight | 100.2 kg (220 lb | 04/27/2017 1:50 AM | | | | 14.4 oz) | PDT | | + + + + + | Height | 179.1 cm (5' 10.5") | 04/26/2017 10:43 AM | | | | | PDT | | + + + + + | Body Mass Index | 31.25 | 04/26/2017 10:43 AM | | | | | PDT | | + + + + + documented in this encounter Discharge Summaries Paul Quiroga MD - 04/28/2017 4:07 PM PDTFormatting of this note might be different fro m the original. [place] HOSPITALIST TRANSFER SUMMARY Pt. Name/Age/: Behzad Espinal Jr. 61 y.o. 1955 Date of Admission: 04/26/2017 Date of Discharge: 04/28/2017 Admitting Physician: Jessika Walsh MD Primary Care Provider: Shakir Monzon DO Discharging Physician: Paul Quiroga MD PAST MEDICAL and SURGICAL HISTORY: Past Medical History: Diagnosis Date Chronic hepatitis C (HCC) Cirrhosis of liver with ascites (HCC) Decompensated HCV cirrhosis (HCC) Dermatitis GERD (gastroesophageal reflux disease) Hyperlipidemia Internal hemorrhoids without complication Lichen planus Localized, secondary osteoarthritis of the shoulder region Positive H. pylori test Sleep apnea no CPAP Thrombocytopenia (HCC) Tobacco use disorder Type 2 diabetes mellitus (HCC) Vitamin D deficiency Past Surgical History: Procedure Laterality Date COLONOSCOPY 2012 [facility] UPPER GASTROINTESTINAL ENDOSCOPY N/A 05/05/2016 Procedure: EGD; Surgeon: Donell Hunt MD; Location: [facility] UPPER GASTROINTESTINAL ENDOSCOPY N/A 07/27/2016 Procedure: EGD; Surgeon: Donell Hunt MD; Location: [facility] UPPER GASTROINTESTINAL ENDOSCOPY N/A 12/10/2016 Procedure: EGD; Surgeon: Donell Hunt MD; Location: [facility] FAMILY HISTORY: family history includes Alcohol abuse in an other family member; Cancer in his father; Diab etes in his mother and another family member; Lymphoma in an other family member; No Known P roblems in his brother, maternal grandfather, maternal grandmother, paternal grandfather, pa ternal grandmother, and sister; Thyroid cancer in an other family member. SOCIAL HISTORY: reports that he has been smoking Cigarettes. He has a 11.25 pack-year smoking history. He has never used smokeless tobacco. He reports that he drinks alcohol. He reports that he use s drugs, including Marijuana. DISCHARGE DIAGNOSES: Active Hospital Problems Diagnosis Cholecystitis Hepatic cirrhosis, unspecified hepatic cirrhosis type Chronic hepatitis C without hepatic coma Resolved Hospital Problems Diagnosis No resolved problems to display. HOME MEDICATIONS PRIOR TO ADMISSION Note that these are not necessarily to be continued when discharged from the receiving faci lity: Current Discharge Medication List CONTINUE these medications which have NOT CHANGED Details aspirin 81 mg EC tablet Take 81 mg by mouth Daily. cholecalciferol (VITAMIN D-3) 5000 units CAPS Take 5,000 Units by mouth Daily. !! ibuprofen (ADVIL, MOTRIN) 200 mg tablet Take 400 mg by mouth every 6 hours as needed for Pain. !! ibuprofen (ADVIL,MOTRIN) 600 MG tablet Take 600 mg by mouth every 6 hours as needed for Pain. insulin aspart (NOVOLOG) 100 units/mL injection Inject under the skin. Per sliding scale insulin glargine (LANTUS SOLOSTAR) 100 units/mL injection (pen) Inject 60-80 Units under th e skin 2 times daily. lactulose 10 g/15 mL solution Take 30 mLs by mouth 3 times daily. losartan (COZAAR) 25 mg tablet Take 25 mg by mouth Daily. metFORMIN (GLUCOPHAGE) 1000 MG tablet Take 1,000 mg by mouth 2 times daily (with breakfast & dinner). omeprazole (PRILOSEC) 40 MG capsule Take 40 mg by mouth every morning (before breakfast). rifAXIMin (XIFAXAN) 550 mg TABS Take 550 mg by mouth 2 times daily. rosuvastatin (CRESTOR) 10 mg tablet Take 10 mg by mouth nightly. !! - Potential duplicate medications found. Please discuss with provider. MEDICATIONS AND INFUSIONS AT TIME OF TRANSFER: Current Facility-Administered Medications Medication Dose Route Frequency Provider Last Rate Last Dose acetaminophen (TYLENOL) tablet 650 mg 650 mg Oral Q4H PRN Flor Clement MD 650 mg at 04/26/17 2203 cefepime (MAXIPIME) 2 g in sodium chloride 0.9% 50 mL IVPB 2 g Intravenous Once Paul Quiroga MD cholecalciferol (VITAMIN D-3) tablet 5,000 Units 5,000 Units Oral Daily Flor mcguire MD 5,000 Units at 04/28/17 0807 dextrose 5% lactated ringers (D5LR) 1,000 mL with potassium chloride 20 mEq infusion Intravenous Continuous Paul Quiroga MD 75 mL/hr at 04/28/17 0908 dextrose 50% injection 12.5 g 12.5 g Intravenous PRN Flor Clement MD guaiFENesin (ROBITUSSIN) 100 mg/5 mL liquid 200 mg 200 mg Oral Q4H PRN Paul Quiroga MD 200 mg at 04/28/17 1554 HYDROmorphone (DILAUDID) injection 0.25-1 mg 0.25-1 mg Intravenous Q2H PRN Flor Clement MD 0.5 mg at 04/28/17 1554 insulin lispro (humaLOG KWIKPEN) 100 units/mL injection (pen) 0-6 Units 0-6 Units Subc utaneous 4x Daily WC and HS Flor Clement MD 2 Units at 04/28/17 1223 ipratropium (ATROVENT) 500 mcg/2.5 mL nebulizer solution 500 mcg 500 mcg Nebulization RT Q6H PRN Paul Quiroga MD lactulose liquid 30 mL 30 mL Oral TID Flor Clement MD 30 mL at 04/28/17 0806 levoFLOXacin in dextrose (LEVAQUIN) IVPB 750 mg 750 mg Intravenous Daily Flor morton MD 100 mL/hr at 04/28/17 0806 750 mg at 04/28/17 0806 metoprolol tartrate (LOPRESSOR) injection 5 mg 5 mg Intravenous Q5 Min PRN Raghu waite MD 5 mg at 04/27/17 0345 metoprolol tartrate (LOPRESSOR) tablet 25 mg 25 mg Oral BID Raghu Clinton MD 25 mg at 04/28/17 0806 metroNIDAZOLE in saline (FLAGYL) IVPB 500 mg 500 mg Intravenous 3 times per day Flor Clement MD 100 mL/hr at 04/28/17 0642 500 mg at 04/28/17 0642 ondansetron (ZOFRAN) injection 4 mg 4 mg Intravenous Q6H PRN Flor Clement MD pantoprazole (PROTONIX) injection 40 mg 40 mg Intravenous BID Flor Clement MD 40 mg at 04/28/17 0908 pharmacy consult - other medications/reasons Other Pharmacy Consult Rylan Aguirre rifAXIMin (XIFAXAN) tablet 550 mg 550 mg Oral BID Flor Clement MD 550 mg at 0 04/28/17 08 rosuvastatin (CRESTOR) tablet 10 mg 10 mg Oral Nightly Flor Clement MD 10 mg at 04/27/172004 dextrose 5% lactated ringers (D5 LR) infusion + additives 75 mL/hr at 04/28/17 09 ALLERGIES: No Known Allergies HOSPITAL COURSE: Please refer to the H&P for full details and the most recent rounding rounding (progress) n ote. Active Hospital Problems Diagnosis Cholecystitis vs Choledocolithiasis MRCP done postponed ERCP as needs Cardiac Cath, bilirubin better Acute Coronary Syndrome Chest pain with peak troponin of 0.27 Dr Triana to cath today, I did order single dose of ASA for yesterday, if does not nee d stenting then could proceed with ERCP but if needs stenting ERCP would be higher risk due to dual antiplatelets see cath report Cough SOB CXR neg yesterday and much relief with nebulizer A fib got IV Metoprolol then back to [place] 0348 Gram negative sepsis + BC in [facility] results yesterday no help yet RN to check daily until final results Hepatic cirrhosis, unspecified hepatic cirrhosis type Chronic hepatitis C without hepatic coma (followed at [facility] treated 4 months ago with un detectable viral loads since 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 Diffuse moderate to moderately severe CAD with severe calcification of all three major cors, especially in the proximal sections: A) 70-80% stenosis of a large OM-1 with post stenotic dilatation. B) 70% diffuse stenosis of very small OM-2 C) 99% stenosis of origin of D1; very small vessel. D) 80% distal disease in very small D2. E) 100% occlusion of apical LAD after D3. F) Diffuse mild disease in dominant RCA, moderate size vessel, with worst st enosis of about 50% in mid RCA and PL-1 2. Normal LV function by Echo. 3. Markedly tortuous and calcified left coronary system, especially the LCx system. RECOMMENDATIONS: Maximize medical therapy; failing which consider PCI of the culprit vessel, determined by s tress nuclear scan; ad hoc attempt to do PCI of OM-1 is not advisable given the calcificatio n and tortuosity of this vessel and limited availability of equipment here (no rotational at herectomy) and patient's high co-morbid conditions, anemia and liver disease and thrombocyto penia. Echo Conclusions Summary 1. Mild left atrial dilatation. 2. Normal left ventricular size with a mild concentric left ventricular hypertrophy. Left ventricular systolic function is preserved. LVEF is 55-60%. 3. Grade 1 left ventricular diastolic dysfunction. 4. Mildly thickened mitral valve with adequate opening. 5. Mild mitral annular calcification. 6. Mildly thickened and calcified trileaflet aortic valve with borderline mild calcific aortic valve stenosis. 7. Mild pulmonary hypertension with a peak systolic pressure of 35-40 mmHg. 8. Dilated IVC without respiratory collapse suggesting fluid retention. Signature (emili barbozaum tdnorefesh nownorefresh) (dot yvcaity) (dot paulaattjozef is attestation for malnutrition) Plan Cath today If Cath indicate not need intervention then can proceed with ERCP but if needs intervention might need to consider sending to [facility] due to higher risk Addendum (04/28/2017 12:49) Cardiac cath circumflex culprit lesion is tortuous and might be able to manage medically bu t if needs intervention would be rotoblation. I spoke with Dr Sharma and consensus is to sent to tertiary center. I called [facility] no ERCP available until Wednesday and I called [facility] they have waiting list but will call me back.I cancelled the CT to look for varices since we are in process of arranging transfer. Addendum (04/28/2017 16:03) [facility] no ERCP Doc till Wednesday [place] no bed [facility] will take him (I told patient and family) Dr Mely Alexander wanted extra Abx so I ordered Pharmacy to give one dose Cefepime In summary he had several days of Chest and Abd pain and Anton saw him in ER and later again in ER then sent to us with positive blood culture GNR on the and dilated GB and t hey thought cholecystitis and we did MRCP here but he had brief A fib RVR with troponin rise and cath this Wed with severe disease but probably the OM1 culprit and we consider ERCP here and medical management of CAD but given risk and his liver disease felt best to se nd to tertiary center BP and Temp good here. We were doing Levaquin and Flagyl and added the one dose of Cefepime (ordered but might not get in prior to transfer) Most recent weight: Input and output for last 24hrs: Wt Readings from Last 1 Encounters: 04/27/17 100.2 kg (220 lb 14.4 oz) I/O last 24 Hours: In: 1267 [P.O.:240; I.V.:877; IV Piggyback:150] Out: 775 [Urine:775] Vitals Ranges: Temp: [36.1 C (97 F)-37.7 C (99.9 F)] 36.6 C (97.9 F) Pulse: [69-85] 72 Resp: [9-27] 25 BP: (114-141)/(62-86) 129/86 Vitals: Temp: 36.6 C (97.9 F) BP: 129/86 Pulse: 72 Resp: 25 SpO2: 96 % SpO2 96 % on room air at flow rate 3 (Placed on arrival to procedure)L/min PHYSICAL EXAM: Patient seen and examined by me on discharge day DIAGNOSTIC STUDIES: Hematology and anemia Recent Labs Lab 04/28/17 0311 04/27/17 0123 04/26/17 1248 WBC 10.7 13.3* 9.9 HGB 11.2* 12.7* 11.6* HCT 33.6* 37.5* 33.8* PLT 88* 95* 86* NEUPCT -- 83.9* 78.6 MONPCT -- 8.8 10.7 Recent Labs Lab 04/26/17 1816 PROTIME 14.7* INR 1.15* No results for input(s): IRON, TIBC, PCTSAT, FERRITIN, TSH, [id number], FOLATE in the last 168 hours. Inflammatory markers Recent Labs Lab 04/26/17 1248 LACTATE 1.6 Chemistry Recent Labs Lab 04/28/17 0311 04/27/17 0908 04/27/17 0123 GLU 221* 254* 233* NA 131* 137 136 K 3.5 4.2 3.7 CL 107 112* 109 CO2 18* 19* 18* ANIONGAP 6 6 9 BUN 11 9 8 CREA 0.91 0.84 0.92 GFRNONAA >60 >60 >60 CALCIUM 7.7* 7.8* 8.0* ALBUMIN 2.3* 2.3* 2.5* TOTALPROTEIN 5.5* 5.7* 6.0 BILITOT 1.6* 1.9* 2.2* ALKPHOS 62 58 64 ALT 18 16 16 AST 39 31 35 Recent Labs Lab 04/27/17 0908 04/27/17 0123 MG 1.7* 1.7* No results for input(s): AMYLASE, LIPASE in the last 168 hours. No results for input(s): TRIG, CHOL, HDL, LDL in the last 168 hours. No results for input(s): AMMONIA in the last 168 hours. Cardiology & Digoxin Recent Labs Lab 04/28/17 0311 04/27/17 2109 04/27/17 1533 04/27/17 0908 04/27/17 0126 TROPONIN 0.15* 0.22* 0.27* 0.20* 0.08* ABG No results for input(s): PHART, PO2ART, UVA4JLN, CSP7FVE, BEART, [id number] in the last 168 h ours. No results for input(s): SPECSOURCE, PHPOCB, PCO2, PO2, HCO3, TCO2, BEART, [id number] in the last 168 hours. Drug of overdose and abuse No results for input(s): ALCOHOL, ACTMN, SALICYLATE in the last 168 hours. No results for input(s): AMPHEQUAL, BARBITURATE, BENZSCR, CANNIBSCR, AMPHETAMINE, METHADSCR , OPIATESCR in the last 168 hours. Urinalysis No results for input(s): GLUCOSEU, WBCUA, RBCUA, SQUAMEPIUA, BACTERIAUA, CULTIF in the last 168 hours. Xray Results Recent Results (from the past 360 hour(s)) MRI MRCP Liver wo Contrast Narrative MRI MRCP LIVER WO CONTRAST 04/26/2017 12:17 PM HISTORY:?BILIARY OBSTRUCTION, RULE OUT CBD STONE. COMPARISON: Multiple priors. PROTOCOL: Coronal T2 catering manager, axial T2 catering manager, coronal 3D respiratory triggered, coronal T2 thin slab, T2 thick slab set. Reconstruction views were obtained. FINDINGS: Multiple small stones are visualized within the gallbladder neck. There is no evidence for gallbladder wall thickening. The cystic duct is normal. The common bile duct measures 7 mm, which is normal. There is possible tiny filling defects within the distal aspect of the common bile duct that may represent tiny stones. The pancreatic duct measures 2 mm, which is normal. Chest base is normal. The liver demonstrates a mildly nodular pattern suggestive of cirrhosis. A tiny cyst is in the anterior aspect of the right hepatic lobe measuring 4 mm. The spleen is enlarged measuring 18.6 cm. The pancreas has a normal appearance otherwise. Adrenal glands are normal. The right kidney and visualized ureter are normal. The left kidney and visualized ureter are normal. Limited evaluation of the stomach, small bowel, and colon show no acute findings. Venous structures are unremarkable. No enlarged lymph nodes are visualized within the omentum or retroperitoneum. There is no evidence for ascites or free air. Body wall soft tissue structures are normal. There are no acute osseous abnormalities. IMPRESSION - Cholelithiasis and possible distal choledocholithiasis with no definite evidence for cholecystitis. Dictated and Signed by: Walter Jacob MD Electronically signed: 04/26/2017 1:47 PM XR Chest AP Portable Narrative SINGLE AP CHEST 04/27/2017 8:52 PM CLINICAL HISTORY: check for PNA COMPARISON: None available FINDINGS: The cardiomediastinal silhouette and pulmonary vasculature are unremarkable. The lungs are clear, without visible pneumothorax or pleural effusion. The bones and soft tissues are unremarkable. IMPRESSION - 1. NO RADIOGRAPHIC EVIDENCE OF ACTIVE DISEASE IN THE CHEST. Dictated and Signed by: Tree Johnston MD Electronically signed: 04/27/2017 10:42 PM Micro Results Microbiology Results (Last 14 Days by Collected Date with Culture/Sensitivity) Procedure Component Value Units Date/Time Culture, MRSA [[id number]] Collected: 04/27/17 022 Order Status: Canceled Lab Status: No result Specimen: Respiratory from Nares Culture, MRSA [[id number]] Collected: 04/27/17 015 Order Status: Completed Lab Status: Final result Updated: 04/28/17704 Specimen: Respiratory from Nares Culture Negative for MRSA by chromogenic agar method PROCEDURES AND CONSULTS: Cardiac Cath Dr Zachary Pratt PENDING RESULTS: DISPOSITION AND TRANSFER INSTRUCTIONS: Condition: Patient being transferred with condition improved NPO for now Going to [facility] to Dr Mely Quiroga MD [facility] [phone] Triage pager [phone] (this is a shared pager and is carried 07/09 by a Hospitalist) Personal [employer] [phone] Email [email or web address] Greater than 30 minutes were spent on discharge and coordination of post-hospital care. Electronically signed by: Paul Quiroga MD, 04/28/2017 16:08 [facility] (dot meytime meycritical meycontact) Reference. This is NOT part of the patient's formal assessment section. In the assessment or plan section of notes the author may date some of the subsections with a number such as "" or "23" to indicate the date of that entry or event. In the example below the 1st line is the original entry and the subsequent lines indicate flowing updates to the subsection: Example assessment subsection (such as CHF or CP or Pneumonia) 23 Patient is improved today with resolution of symptoms 24th Worse with recurrence of symptoms requiring further testing Portions of this chart may have been created with [employer] voice recognition software. Occasi onal wrong-word or sound-alike substitutions may have occurred due to the inherent haas itations of voice recognition software. Please read the chart carefully and recognize, using context, where these substitutions have occurred documented in this en counter Medications at Time of Discharge + + + +---------+--------+ + | Medication | Sig | Dispensed | Refills | Start | End Date | | | | | | Date | | + + + +---------+--------+ + | insulin glargine | Inject 60-80 Units | | 0 | | | | (LANTUS SOLOSTAR) | under the skin 2 | | | | | | 100 units/mL | times daily. | | | | | | injection (pen) | | | | | | + + + +---------+--------+ + | lactulose 10 g/15 | Take 30 mLs by mouth | | 0 | | | | mL solution | 3 times daily. | | | | | + + + +---------+--------+ + | losartan (COZAAR) | Take 25 mg by mouth | | 0 | | | | 25 mg tablet | Daily. | | | | | + + + +---------+--------+ + | omeprazole | Take 40 mg by mouth | | 0 | | | | (PRILOSEC) 40 MG | every morning | | | | | | capsule | (before breakfast). | | | | | + + + +---------+--------+ + | rifAXIMin | Take 550 mg by mouth | | 0 | | | | (XIFAXAN) 550 mg | 2 times daily. | | | | | | TABS | | | | | | + + + +---------+--------+ + | rosuvastatin | Take 20 mg by mouth | | 0 | | | | (CRESTOR) 20 mg | nightly. | | | | | | tablet | | | | | | + + + +---------+--------+ + | aspirin 81 mg EC | Take 81 mg by mouth | | 0 | | | | tablet | Daily. | | | | 8 | + + + +---------+--------+ + | cholecalciferol | Take 5,000 Units by | | 0 | | | | (VITAMIN D-3) 5000 | mouth Daily. | | | | 8 | | units CAPS | | | | | | + + + +---------+--------+ + | ibuprofen (ADVIL, | Take 400 mg by mouth | | 0 | | | | MOTRIN) 200 mg | every 6 hours as | | | | 8 | | tablet | needed for Pain. | | | | | + + + +---------+--------+ + | ibuprofen | Take 600 mg by mouth | | 0 | | | | (ADVIL,MOTRIN) 600 | every 6 hours as | | | | 8 | | MG tablet | needed for Pain. | | | | | + + + +---------+--------+ + | insulin aspart | Inject under the | | 0 | | | | (NOVOLOG) 100 | skin. Per sliding | | | | 9 | | units/mL injection | scale | | | | | + + + +---------+--------+ + | metFORMIN | Take 1,000 mg by | | 0 | | | | (GLUCOPHAGE) 1000 MG | mouth 2 times daily | | | | 9 | | tablet | (with breakfast & | | | | | | | dinner). | | | | | + + + +---------+--------+ + documented as of this encounter Progress Notes Paul Quiroga MD - 04/28/2017 8:03 AM PDTFormatting of this note might be different fro m the original. [place] HOSPITALIST PROGRESS NOTE Patient: Behzad Espinal Jr. : 1955: Age: 61 y.o. MedRec: [id number] PCP: Shakir Monzon DO Admission date: 04/26/2017 Hospital day # : 2 Physician author: Paul Quiroga MD Today: 04/28/2017 Allergies: No Known Allergies Current Medications: Current Facility-Administered Medications Medication Dose Route Frequency Provider Last Rate Last Dose acetaminophen (TYLENOL) tablet 650 mg 650 mg Oral Q4H PRN Flor Clement MD 650 mg at 04/26/17 2203 cholecalciferol (VITAMIN D-3) tablet 5,000 Units 5,000 Units Oral Daily Flor mcguire MD 5,000 Units at 04/27/17 0829 dextrose 5% and sodium chloride 0.45% (D5 1/2 NS) infusion Intravenous Continuous And rew MD Blanco 75 mL/hr at 04/28/17 0157 dextrose 50% injection 12.5 g 12.5 g Intravenous PRN Flor Clement MD guaiFENesin (ROBITUSSIN) 100 mg/5 mL liquid 200 mg 200 mg Oral Q4H PRN Paul Quiroga MD 200 mg at 04/28/17 0739 HYDROmorphone (DILAUDID) injection 0.25-1 mg 0.25-1 mg Intravenous Q2H PRN Flor Clement MD 0.5 mg at 04/28/17 0738 insulin lispro (humaLOG KWIKPEN) 100 units/mL injection (pen) 0-6 Units 0-6 Units Subc utaneous 4x Daily WC and HS Flor Clement MD 1 Units at 04/27/172030 ipratropium (ATROVENT) 500 mcg/2.5 mL nebulizer solution 500 mcg 500 mcg Nebulization RT Q6H PRN Paul Quiroga MD lactulose liquid 30 mL 30 mL Oral TID Flor Clement MD 30 mL at 04/26/17 205 levoFLOXacin in dextrose (LEVAQUIN) IVPB 750 mg 750 mg Intravenous Daily Flor morton MD 100 mL/hr at 04/27/17 0826 750 mg at 04/27/17 0826 metoprolol tartrate (LOPRESSOR) injection 5 mg 5 mg Intravenous Q5 Min PRN Raghu waite MD 5 mg at 04/27/17 0345 metoprolol tartrate (LOPRESSOR) tablet 25 mg 25 mg Oral BID Raghu Clinton MD 25 mg at 04/27/172004 metroNIDAZOLE in saline (FLAGYL) IVPB 500 mg 500 mg Intravenous 3 times per day Flor Clement MD 100 mL/hr at 04/28/17 0642 500 mg at 04/28/17 0642 ondansetron (ZOFRAN) injection 4 mg 4 mg Intravenous Q6H PRN Flor Clement MD pantoprazole (PROTONIX) injection 40 mg 40 mg Intravenous BID Flor Clement MD 40 mg at 04/27/172005 rifAXIMin (XIFAXAN) tablet 550 mg 550 mg Oral BID Flor Clement MD 550 mg at 0 04/27/172004 rosuvastatin (CRESTOR) tablet 10 mg 10 mg Oral Nightly Flor Clement MD 10 mg at 04/27/172004 Current Infusions: dextrose 5% and sodium chloride 0.45% 75 mL/hr at 04/28/17 0157 Objective Data Hematology and anemia Recent Labs Lab 04/28/17 0311 04/27/17 0123 04/26/17 1248 WBC 10.7 13.3* 9.9 HGB 11.2* 12.7* 11.6* HCT 33.6* 37.5* 33.8* PLT 88* 95* 86* NEUPCT -- 83.9* 78.6 MONPCT -- 8.8 10.7 Recent Labs Lab 04/26/17 1816 PROTIME 14.7* INR 1.15* No results for input(s): IRON, TIBC, PCTSAT, FERRITIN, TSH, [id number], FOLATE in the last 168 hours. Inflammatory markers Recent Labs Lab 04/26/17 1248 LACTATE 1.6 Chemistry Recent Labs Lab 04/28/17 0311 04/27/17 0908 04/27/17 0123 GLU 221* 254* 233* NA 131* 137 136 K 3.5 4.2 3.7 CL 107 112* 109 CO2 18* 19* 18* ANIONGAP 6 6 9 BUN 11 9 8 CREA 0.91 0.84 0.92 GFRNONAA >60 >60 >60 CALCIUM 7.7* 7.8* 8.0* ALBUMIN 2.3* 2.3* 2.5* TOTALPROTEIN 5.5* 5.7* 6.0 BILITOT 1.6* 1.9* 2.2* ALKPHOS 62 58 64 ALT 18 16 16 AST 39 31 35 Recent Labs Lab 04/27/17 0908 04/27/17 0123 MG 1.7* 1.7* No results for input(s): AMYLASE, LIPASE in the last 168 hours. No results for input(s): TRIG, CHOL, HDL, LDL in the last 168 hours. No results for input(s): AMMONIA in the last 168 hours. Cardiology & Digoxin Recent Labs Lab 04/28/17 0311 04/27/17 2109 04/27/17 1533 04/27/17 0908 04/27/17 0126 TROPONIN 0.15* 0.22* 0.27* 0.20* 0.08* ABG No results for input(s): PHART, PO2ART, FSY7VMG, REE4CIQ, BEART, [id number] in the last 168 h ours. No results for input(s): SPECSOURCE, PHPOCB, PCO2, PO2, HCO3, TCO2, BEART, [id number] in the last 168 hours. Drug of overdose and abuse No results for input(s): ALCOHOL, ACTMN, SALICYLATE in the last 168 hours. No results for input(s): AMPHEQUAL, BARBITURATE, BENZSCR, CANNIBSCR, AMPHETAMINE, METHADSCR , OPIATESCR in the last 168 hours. Urinalysis No results for input(s): GLUCOSEU, WBCUA, RBCUA, SQUAMEPIUA, BACTERIAUA, CULTIF in the last 168 hours. Point of care glucose Recent Labs Lab 04/27/17 2027 04/27/17 1628 04/27/17 1131 04/27/17 0704 04/26/17 2054 04/26/17 1609 POCGLU 206* 191* 233* 256* 183* 205* Micro results more choices using dot micro, for reference below is dot [id number] URSR Microbiology Results (72 hrs) Procedure Component Value Units Date/Time Culture, MRSA [[id number]] Collected: 04/27/17 0151 Order Status: Completed Lab Status: Final result Updated: 04/28/17 07 Specimen: Respiratory from Nares Culture Negative for MRSA by chromogenic agar method Radiology results (more choices using dot risresults) Xr Chest Ap Portable Result Date: 04/27/2017 SINGLE AP CHEST 04/27/2017 8:52 PM CLINICAL HISTORY: check for PNA COMPARISON: None availabl e FINDINGS: The cardiomediastinal silhouette and pulmonary vasculature are unremarkable. Th e lungs are clear, without visible pneumothorax or pleural effusion. The bones and soft tis sues are unremarkable. IMPRESSION - 1. NO RADIOGRAPHIC EVIDENCE OF ACTIVE DISEASE IN THE C HEST. Dictated and Signed by: Tree Johnston MD Electronically signed: 04/27/2017 10:42 PM Mri Mrcp Liver Wo Contrast Result Date: 04/26/2017 MRI MRCP LIVER WO CONTRAST 04/26/2017 12:17 PM HISTORY:?BILIARY OBSTRUCTION, RULE OUT CBD ST ONE. COMPARISON: Multiple priors. PROTOCOL: Coronal T2 catering manager, axial T2 catering manager, coronal 3D res piratory triggered, coronal T2 thin slab, T2 thick slab set. Reconstruction views were obtai naya. FINDINGS: Multiple small stones are visualized within the gallbladder neck. There is no evidence for gallbladder wall thickening. The cystic duct is normal. The common bile duct m easures 7 mm, which is normal. There is possible tiny filling defects within the distal aspe ct of the common bile duct that may represent tiny stones. The pancreatic duct measures 2 mm , which is normal. Chest base is normal. The liver demonstrates a mildly nodular pattern sug gestive of cirrhosis. A tiny cyst is in the anterior aspect of the right hepatic lobe measur ing 4 mm. The spleen is enlarged measuring 18.6 cm. The pancreas has a normal appearance oth erwise. Adrenal glands are normal. The right kidney and visualized ureter are normal. The le ft kidney and visualized ureter are normal. Limited evaluation of the stomach, small bowel, and colon show no acute findings. Venous structures are unremarkable. No enlarged lymph node s are visualized within the omentum or retroperitoneum. There is no evidence for ascites or free air. Body wall soft tissue structures are normal. There are no acute osseous abnormalit ies. IMPRESSION - Cholelithiasis and possible distal choledocholithiasis with no definite ev idence for cholecystitis. Dictated and Signed by: Walter Jacob MD Electronically signed: 01/2018 1:47 PM Serial weights: Filed Weights: 04/26/17 1043 04/26/17 1446 04/27/17 0150 Weight: 97.5 kg (215 lb) 101.7 kg (224 lb 3.3 oz) 100.2 kg (220 lb 14.4 oz) Most recent weight: Input and output 2 shifts and 3 shifts: Wt Readings from Last 1 Encounters: 04/27/17 100.2 kg (220 lb 14.4 oz) I/O last 24 Hours: In: 1267 [P.O.:240; I.V.:877; IV Piggyback:150] Out: 775 [Urine:775] I/O last 3 completed shifts: In: 2625 [P.O.:240; I.V.:951; IV Piggyback:1434] Out: 1000 [Urine:1000] Vitals Ranges: Temp: [36.1 C (97 F)-37.7 C (99.9 F)] 36.1 C (97 F) Pulse: [75-85] 82 Resp: [14-27] 27 BP: (114-144)/(62-76) 138/76 Vitals: Temp: 36.1 C (97 F) BP: 138/76 Pulse: 82 Resp: 27 SpO2: 96 % SpO2 96 % on room air at flow rate L/min (dot meyvent) Subjective CC Tfer from [facility] for Chest and Abd pain with U/S there suggesting cholecystits abd + BC GNR sent to us for ERCP He says is 100 percent better Cough is half what it was when started a week ago Wed (Dry) CP with coughing but not with deep breathing Got neb Tx last NOC with relief of SOB and CXR done Son has Asthma not patient Slept well ROS See above Exam General Alert fluent Cardiac RRR Extremities Lung clear not labored not wheezing Abdominal mild epig and RUQ tender good bowel sounds Neuro speech fluent smile equal (when relaxed left corner of mouth less animated with talki ng) tongue midline no pronator drift PER (dot meyexam) Assessment and Hospital Course (dot meyprob vs meyprobap) Active Hospital Problems Diagnosis Cholecystitis vs Choledocolithiasis MRCP done postponed ERCP as needs Cardiac Cath, bilirubin better Chest pain with peak troponin of 0.27 Dr Triana to cath today, I did order single dose of ASA for yesterday, if does not nee d stenting then could proceed with ERCP but if needs stenting ERCP would be higher risk due to dual antiplatelets Cough SOB CXR neg yesterday and much relief with nebulizer A fib got IV Metoprolol then back to [facility] 0348 Gram negative sepsis + BC in [facility] results yesterday no help yet RN to check daily until final results Hepatic cirrhosis, unspecified hepatic cirrhosis type Chronic hepatitis C without hepatic coma (followed at [facility] treated 4 months ago with un detectable viral loads since 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 Diffuse moderate to moderately severe CAD with severe calcification of all three major cors, especially in the proximal sections: A) 70-80% stenosis of a large OM-1 with post stenotic dilatation. B) 70% diffuse stenosis of very small OM-2 C) 99% stenosis of origin of D1; very small vessel. D) 80% distal disease in very small D2. E) 100% occlusion of apical LAD after D3. F) Diffuse mild disease in dominant RCA, moderate size vessel, with worst st enosis of about 50% in mid RCA and PL-1 2. Normal LV function by Echo. 3. Markedly tortuous and calcified left coronary system, especially the LCx system. RECOMMENDATIONS: Maximize medical therapy; failing which consider PCI of the culprit vessel, determined by s tress nuclear scan; ad hoc attempt to do PCI of OM-1 is not advisable given the calcificatio n and tortuosity of this vessel and limited availability of equipment here (no rotational at herectomy) and patient's high co-morbid conditions, anemia and liver disease and thrombocyto penia. Echo Conclusions Summary 1. Mild left atrial dilatation. 2. Normal left ventricular size with a mild concentric left ventricular hypertrophy. Left ventricular systolic function is preserved. LVEF is 55-60%. 3. Grade 1 left ventricular diastolic dysfunction. 4. Mildly thickened mitral valve with adequate opening. 5. Mild mitral annular calcification. 6. Mildly thickened and calcified trileaflet aortic valve with borderline mild calcific aortic valve stenosis. 7. Mild pulmonary hypertension with a peak systolic pressure of 35-40 mmHg. 8. Dilated IVC without respiratory collapse suggesting fluid retention. Signature (dot meyaddendum tdnorefesh nownorefresh) (dot meyvcaity) (dot kimi is attestation for malnutrition) Plan Cath today If Cath indicate not need intervention then can proceed with ERCP but if needs intervention might need to consider sending to [facility] due to higher risk Addendum (04/28/2017 12:49) Cardiac cath circumflex culprit lesion is tortuous and might be able to manage medically bu t if needs intervention would be rotoblation. I spoke with Dr Sharma and consensus is to sent to tertiary center. I called [facility] no ERCP available until Wednesday and I called [facility] they have waiting list but will call me back.I cancelled the CT to look for varices since we are in process of arranging transfer. Addendum (04/28/2017 16:03) [facility] no ERCP Doc till Wednesday [place] no bed [facility] (I told patient and family) Dr Mely Alexander wanted extra Abx so I ordered Pharmacy to give one dose Cefepime In summary he had several days of Chest and Abd pain and [facility] saw him in ER and later again in ER then sent to us with positive blood culture GNR on the and dilated GB and t hey thought cholecystitis and we did MRCP here but he had brief A fib RVR with troponin rise and cath this Wed with severe disease but probably the OM1 culprit and we consider ERCP here and medical management of CAD but given risk and his liver disease felt best to se nd to tertiary center BP and Temp good here. We were doing Levaquin and Flagyl and added the one dose of Cefepime (ordered but might not get in prior to transfer) (dot meyaddendum tdnorefesh nownorefresh) (dot meytime meycritical meysign) Paul Quiroga MD 04/28/2017 8:03 [facility] Reference. This is NOT part of the patient's formal assessment section. In the assessment or plan section of notes the author may date some of the subsections with a number such as "23" or "23" to indicate the date of that entry or event. In the example below the 1st line is the original entry and the subsequent lines indicate flowing updates to the subsection: Example assessment subsection (such as CHF or CP or Pneumonia) Patient is improved today with resolution of symptoms Worse with recurrence of symptoms requiring further testing Portions of this chart may have been created with [employer] voice recognition software. Occasi onal wrong-word or sound-alike substitutions may have occurred due to the inherent haas itations of voice recognition software. Please read the chart carefully and recognize, using context, where these substitutions have occurred Sharlene Escudero, [facility] - 04/27/2017 8:05 PM PDT PHARMACY SERVICES: ADMISSION MEDICATION REVIEW Behzad Espinal Jr. is a 61 y.o. male admitted on 04/26/17. Patient is a reliable historian. Location of Patient when reviewed: ED X Medical Floor Patient s prior to admit medication and over the counter (OTC) medications/herbal supplem ents list obtained from: X Verbal interview X Patient able to recall SOME Name, strength, and directions X Patient/family member provided a complete current medication list or bottles X Pharmacy list names: [facility] X Outside Information Vaccines up to date? Yes No Unsure Influenza x Pneumococcal x Tdap x Shingles x Noted medications discrepancies or medication-related issues: Medication added: Medication: Prior to Admission Sig: Patient taking differently as: Lactulose 10 gm/15 mL leigh 30 mL by mouth three times daily Insulin glargine 100 units/mL pen 60 to 80 units under the skin twice daily 40 to 50 units under the skin twice daily depending on blood sugars Insulin aspart 100 unit/mL pen Inject per sliding scale Patient states he injects 30 to 35 units under the skin three times daily. Patient does not have an exact sliding scale he foll ows Ibuprofen 600 mg tab 1 tab by mouth every 6 hours as needed for pain Patient takes as neede d for severe pain Ibuprofen 200 mg tab 2 tabs by mouth every 6 hours as needed for pain Aspirin 81 mg EC tab 1 tab by mouth daily Removed therapy: Medication: Prior to Admission Sig: Reason for Removal: Insulin glargine 100 unit/mL inj vial 30 to 40 units depending on blood sugar Form/dose adj ustment Insulin regular human As directed three times daily before meals. 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 Best possible DIRECTOR [employer]ES medication list after pharmacy review: @[email or web address]@ Medication review performed and electronically signed by Ana Laura Coelho, Vocational Education Teacher 19:50 [facility]/27/2017 20:05 Paul Acosta MD - 04/27/2017 8:39 AM PDT [place], [place] HOSPITALIST PROGRESS NOTE Patient: Behzad Espinal Jr. : 1955: Age: 61 y.o. MedRec: [id number] PCP: Shakir Monzon DO Admission date: 04/26/2017 Hospital day # : 1 Physician author: Paul Quiroga MD Today: 04/27/2017 Allergies: No Known Allergies Current Medications: Current Facility-Administered Medications Medication Dose Route Frequency Provider Last Rate Last Dose acetaminophen (TYLENOL) tablet 650 mg 650 mg Oral Q4H PRN Flor Clement MD 650 mg at 04/26/17 2203 cholecalciferol (VITAMIN D-3) tablet 5,000 Units 5,000 Units Oral Daily Flor mcguire MD 5,000 Units at 04/27/17 0829 dextrose 50% injection 12.5 g 12.5 g Intravenous PRN Flor Clement MD HYDROmorphone (DILAUDID) injection 0.25-1 mg 0.25-1 mg Intravenous Q2H PRN Flor Clement MD 1 mg at 04/27/17 0552 insulin lispro (humaLOG KWIKPEN) 100 units/mL injection (pen) 0-6 Units 0-6 Units Subc utaneous 4x Daily WC and HS Flor Clement MD 3 Units at 04/27/17 0801 lactulose liquid 30 mL 30 mL Oral TID Flor Clement MD 30 mL at 04/26/17 205 levoFLOXacin in dextrose (LEVAQUIN) IVPB 750 mg 750 mg Intravenous Daily Flor morton MD 100 mL/hr at 04/27/17 0826 750 mg at 04/27/17 0826 metoprolol tartrate (LOPRESSOR) injection 5 mg 5 mg Intravenous Q5 Min PRN Raghu waite MD 5 mg at 04/27/17 0345 metoprolol tartrate (LOPRESSOR) tablet 25 mg 25 mg Oral BID Raghu Clinton MD 25 mg at 04/27/17 0825 metroNIDAZOLE in saline (FLAGYL) IVPB 500 mg 500 mg Intravenous 3 times per day Flor Clement MD 100 mL/hr at 04/27/17 0527 500 mg at 04/27/17 0527 ondansetron (ZOFRAN) injection 4 mg 4 mg Intravenous Q6H PRN Flor Clement MD pantoprazole (PROTONIX) injection 40 mg 40 mg Intravenous BID Flor Clement MD 40 mg at 04/27/17 0826 rifAXIMin (XIFAXAN) tablet 550 mg 550 mg Oral BID Flor Clement MD 550 mg at 0 04/27/17 0825 rosuvastatin (CRESTOR) tablet 10 mg 10 mg Oral Nightly Flor Clement MD 10 mg at 04/26/17 205 sodium chloride 0.9% (NS) infusion Intravenous Continuous Raghu Clinton MD 150 mL/hr at 04/27/17 0709 150 mL at 04/27/17 0709 Current Infusions: sodium chloride 0.9% 150 mL (04/27/17 0709) Objective Data Hematology and anemia Recent Labs Lab 04/27/17 0123 04/26/17 1248 WBC 13.3* 9.9 HGB 12.7* 11.6* HCT 37.5* 33.8* PLT 95* 86* NEUPCT 83.9* 78.6 MONPCT 8.8 10.7 Recent Labs Lab 04/26/17 1816 PROTIME 14.7* INR 1.15* No results for input(s): IRON, TIBC, PCTSAT, FERRITIN, TSH, [id number], FOLATE in the last 168 hours. Inflammatory markers Recent Labs Lab 04/26/17 1248 LACTATE 1.6 Chemistry Recent Labs Lab 04/27/17 0123 04/26/17 1248 GLU 233* 226* NA 136 133* K 3.7 3.7 CL 109 106 CO2 18* 20* ANIONGAP 9 7 BUN 8 7 CREA 0.92 0.90 GFRNONAA >60 >60 CALCIUM 8.0* 7.9* ALBUMIN 2.5* 2.4* TOTALPROTEIN 6.0 5.9* BILITOT 2.2* 1.7* ALKPHOS 64 59 ALT 16 16 AST 35 36 Recent Labs Lab 04/27/17 0123 MG 1.7* No results for input(s): AMYLASE, LIPASE in the last 168 hours. No results for input(s): TRIG, CHOL, HDL, LDL in the last 168 hours. No results for input(s): AMMONIA in the last 168 hours. Cardiology & Digoxin Recent Labs Lab 04/27/17 0126 TROPONIN 0.08* ABG No results for input(s): PHART, PO2ART, BSB6XYI, LAZ4QSO, BEART, P6RCVAKR in the last 168 h ours. No results for input(s): SPECSOURCE, PHPOCB, PCO2, PO2, HCO3, TCO2, BEART, QQXR2ENR in the last 168 hours. Drug of overdose and abuse No results for input(s): ALCOHOL, ACTMN, SALICYLATE in the last 168 hours. No results for input(s): AMPHEQUAL, BARBITURATE, BENZSCR, CANNIBSCR, AMPHETAMINE, METHADSCR , OPIATESCR in the last 168 hours. Urinalysis No results for input(s): GLUCOSEU, WBCUA, RBCUA, SQUAMEPIUA, BACTERIAUA, CULTIF in the last 168 hours. Point of care glucose Recent Labs Lab 04/27/17 0704 04/26/17 2054 04/26/17 1609 04/26/17 1358 POCGLU 256* 183* 205* 196* Micro results more choices using dot micro, for reference below is dot [id number] URSR Microbiology Results (72 hrs) Procedure Component Value Units Date/Time Culture, MRSA [[id number]] Collected: 04/27/17 0151 Order Status: Sent Lab Status: In process Updated: 04/27/17218 Specimen: Respiratory from Nares Radiology results (more choices using dot risresults) Mri Mrcp Liver Wo Contrast Result Date: 04/26/2017 MRI MRCP LIVER WO CONTRAST 04/26/2017 12:17 PM HISTORY:?BILIARY OBSTRUCTION, RULE OUT CBD ST ONE. COMPARISON: Multiple priors. PROTOCOL: Coronal T2 catering manager, axial T2 catering manager, coronal 3D res piratory triggered, coronal T2 thin slab, T2 thick slab set. Reconstruction views were obtai naya. FINDINGS: Multiple small stones are visualized within the gallbladder neck. There is no evidence for gallbladder wall thickening. The cystic duct is normal. The common bile duct m easures 7 mm, which is normal. There is possible tiny filling defects within the distal aspe ct of the common bile duct that may represent tiny stones. The pancreatic duct measures 2 mm , which is normal. Chest base is normal. The liver demonstrates a mildly nodular pattern sug gestive of cirrhosis. A tiny cyst is in the anterior aspect of the right hepatic lobe measur ing 4 mm. The spleen is enlarged measuring 18.6 cm. The pancreas has a normal appearance oth erwise. Adrenal glands are normal. The right kidney and visualized ureter are normal. The le ft kidney and visualized ureter are normal. Limited evaluation of the stomach, small bowel, and colon show no acute findings. Venous structures are unremarkable. No enlarged lymph node s are visualized within the omentum or retroperitoneum. There is no evidence for ascites or free air. Body wall soft tissue structures are normal. There are no acute osseous abnormalit ies. IMPRESSION - Cholelithiasis and possible distal choledocholithiasis with no definite ev idence for cholecystitis. Dictated and Signed by: Walter Jacob MD Electronically signed: 01/2018 1:47 PM Serial weights: Filed Weights: 04/26/17 1043 04/26/17 1446 04/27/17 0150 Weight: 97.5 kg (215 lb) 101.7 kg (224 lb 3.3 oz) 100.2 kg (220 lb 14.4 oz) Most recent weight: Input and output 2 shifts and 3 shifts: Wt Readings from Last 1 Encounters: 04/27/17 100.2 kg (220 lb 14.4 oz) I/O last 24 Hours: In: 1358 [I.V.:74; IV Piggyback:1284] Out: 225 [Urine:225] I/O last 3 completed shifts: In: 1358 [I.V.:74; IV Piggyback:1284] Out: 225 [Urine:225] Vitals Ranges: Temp: [36.1 C (97 F)-37.9 C (100.2 F)] 36.1 C (97 F) Pulse: [76-144] 76 Resp: [14-24] 16 BP: (111-182)/(60-89) 139/79 Vitals: Temp: 36.1 C (97 F) BP: 139/79 Pulse: 76 Resp: 16 SpO2: 96 % SpO2 96 % on room air at flow rate L/min (dot meyvent) Subjective CC Tfer from [facility] for Chest and Abd pain with U/S there suggesting cholecystits abd + BC GNR sent to us for ERCP Has epig/chest pain better with dilaudid Chronic SOB Has DARIEL but NOT CPAP ROS See above Exam General Sleepy after dilaudid with drug laced speech Cardiac RRR Extremities Lung clear not labored Abdominal large is tender in the RUQ not epig area Neuro speech altered after dilaudid (dot meyexam) Assessment and Hospital Course (dot meyprob vs meyprobap) Active Hospital Problems Diagnosis Cholecystitis vs Choledocolithiasis MRCP done ERCP pending A fib 13 got IV Metoprolol then back to [facility] 0348 Gram negative sepsis + BC in [facility] Hepatic cirrhosis, unspecified hepatic cirrhosis type Chronic hepatitis C without hepatic coma (followed at [facility] treated 4 months ago with un detectable viral loads since 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 Check with RN Addendum (04/27/2017 9:22) Dr Pratt will consult Addendum (04/27/2017 14:58) I looked up labs and his 2nd troponin is 0.20 I will trend and I texted Dr Maguire to call me, Echo not read yet Addendum (04/27/2017 15:20) I spoke with Dr Triana will do stress test Wednesday but if troponin gets higher than will do cath instead, also did NOT start ASA given his varices and thrombocytopenia and Dr Guillermo cole tentatively will do Hina on and will do a CT tomorrow to better look at varices. Addendum (04/27/2017 15:27) Also ERCP not done yet and given his potential cardiac issue I spoke with Dr Sharma and we c ancelled the ERCP for now Addendum (04/27/2017 16:26) Troponin now 0.27 so no stress test instead Dr Triana to cath tomorrow and Dr Quiroga chose t o give single dose of baby aspirin given risk/benefit (dot meyaddendum tdnorefesh nownorefresh) (dot meytime meycritical meysign) Paul Quiroga MD 04/27/2017 8:40 [facility] Reference. This is NOT part of the patient's formal assessment section. In the assessment or plan section of notes the author may date some of the subsections with a number such as "" or "" to indicate the date of that entry or event. In the example below the 1st line is the original entry and the subsequent lines indicate flowing updates to the subsection: Example assessment subsection (such as CHF or CP or Pneumonia) Patient is improved today with resolution of symptoms th Worse with recurrence of symptoms requiring further testing Portions of this chart may have been created with [employer] voice recognition software. Occasi onal wrong-word or sound-alike substitutions may have occurred due to the inherent haas itations of voice recognition software. Please read the chart carefully and recognize, using context, where these substitutions have occurred documented in this en counter Plan of Treatment +--------+---------+ + + + | Date | Type | Specialty | Care Team | Description | +--------+---------+ + + + | 04/06/ | Office | Cardiology | Lakisha Kahn DO | | | 2019 | Visit | | [address] | | | | | | [place] | | | | | | [id number] | | | | | | | | +--------+---------+ + + + documented as of this encounter Procedures + +--------+ + + + | Procedure Name | Priori | Date/Time | Associated Diagnosis | Comments | | | ty | | | | + +--------+ + + + | ECG - EXTERNAL SCAN | | 04/30/2017 | | Results for this | | | | 12:00 AM | | procedure are in the | | | | PDT | | results section. | + +--------+ + + + | POC GLUCOSE | Routin | 04/28/2017 | | Results for this | | | e | 11:50 AM | | procedure are in the | | | | PDT | | results section. | + +--------+ + + + | CV COR ANGIO | Routin | 04/28/2017 | | Results for this | | | e | 11:11 AM | | procedure are in the | | | | PDT | | results section. | + +--------+ + + + | TROPONIN I | Routin | 04/28/2017 | | Results for this | | | e | 3:11 AM | | procedure are in the | | | | PDT | | results section. | + +--------+ + + + | CBC NO DIFFERENTIAL | Routin | 04/28/2017 | | Results for this | | | e | 3:11 AM | | procedure are in the | | | | PDT | | results section. | + +--------+ + + + | COMPREHENSIVE | Routin | 04/28/2017 | | Results for this | | METABOLIC PANEL | e | 3:11 AM | | procedure are in the | | | | PDT | | results section. | + +--------+ + + + | TROPONIN I | Routin | 04/27/2017 | | Results for this | | | e | 9:09 PM | | procedure are in the | | | | PDT | | results section. | + +--------+ + + + | XR CHEST AP PORTABLE | Routin | 04/27/2017 | | Results for this | | | e | 8:52 PM | | procedure are in the | | | | PDT | | results section. | + +--------+ + + + | POC GLUCOSE | Routin | 04/27/2017 | | Results for this | | | e | 8:27 PM | | procedure are in the | | | | PDT | | results section. | + +--------+ + + + | POC GLUCOSE | Routin | 04/27/2017 | | Results for this | | | e | 4:28 PM | | procedure are in the | | | | PDT | | results section. | + +--------+ + + + | TROPONIN I | Routin | 04/27/2017 | | Results for this | | | e | 3:33 PM | | procedure are in the | | | | PDT | | results section. | + +--------+ + + + | ECHO COMPLETE | Routin | 04/27/2017 | | Results for this | | | e | 2:28 PM | | procedure are in the | | | | PDT | | results section. | + +--------+ + + + | POC GLUCOSE | Routin | 04/27/2017 | | Results for this | | | e | 11:31 AM | | procedure are in the | | | | PDT | | results section. | + +--------+ + + + | TROPONIN I | Routin | 04/27/2017 | | Results for this | | | e | 9:08 AM | | procedure are in the | | | | PDT | | results section. | + +--------+ + + + | MAGNESIUM | Add-On | 04/27/2017 | | Results for this | | | | 9:08 AM | | procedure are in the | | | | PDT | | results section. | + +--------+ + + + | COMPREHENSIVE | Routin | 04/27/2017 | | Results for this | | METABOLIC PANEL | e | 9:08 AM | | procedure are in the | | | | PDT | | results section. | + +--------+ + + + | POC GLUCOSE | Routin | 04/27/2017 | | Results for this | | | e | 7:04 AM | | procedure are in the | | | | PDT | | results section. | + +--------+ + + + | ECG 12 LEAD | STAT | 04/27/2017 | | Results for this | | | | 2:38 AM | | procedure are in the | | | | PDT | | results section. | + +--------+ + + + | CULTURE, MRSA | Routin | 04/27/2017 | | Results for this | | | e | 1:51 AM | | procedure are in the | | | | PDT | | results section. | + +--------+ + + + | TROPONIN I | Add-On | 04/27/2017 | | Results for this | | | | 1:26 AM | | procedure are in the | | | | PDT | | results section. | + +--------+ + + + | CBC WITH | Routin | 04/27/2017 | | Results for this | | DIFFERENTIAL | e | 1:23 AM | | procedure are in the | | | | PDT | | results section. | + +--------+ + + + | MAGNESIUM | STAT | 04/27/2017 | | Results for this | | | | 1:23 AM | | procedure are in the | | | | PDT | | results section. | + +--------+ + + + | COMPREHENSIVE | Routin | 04/27/2017 | | Results for this | | METABOLIC PANEL | e | 1:23 AM | | procedure are in the | | | | PDT | | results section. | + +--------+ + + + | POC GLUCOSE | Routin | 04/26/2017 | | Results for this | | | e | 8:54 PM | | procedure are in the | | | | PDT | | results section. | + +--------+ + + + | PROTIME INR | Routin | 04/26/2017 | | Results for this | | | e | 6:16 PM | | procedure are in the | | | | PDT | | results section. | + +--------+ + + + | POC GLUCOSE | Routin | 04/26/2017 | | Results for this | | | e | 4:09 PM | | procedure are in the | | | | PDT | | results section. | + +--------+ + + + | POC GLUCOSE | Routin | 04/26/2017 | | Results for this | | | e | 1:58 PM | | procedure are in the | | | | PDT | | results section. | + +--------+ + + + | CBC WITH | Routin | 04/26/2017 | | Results for this | | DIFFERENTIAL | e | 12:48 PM | | procedure are in the | | | | PDT | | results section. | + +--------+ + + + | LACTIC ACID | Routin | 04/26/2017 | | Results for this | | | e | 12:48 PM | | procedure are in the | | | | PDT | | results section. | + +--------+ + + + | COMPREHENSIVE | Routin | 04/26/2017 | | Results for this | | METABOLIC PANEL | e | 12:48 PM | | procedure are in the | | | | PDT | | results section. | + +--------+ + + + | MRI MRCP LIVER WO | Routin | 04/26/2017 | | Results for this | | CONTRAST | e | 12:37 PM | | procedure are in the | | | | PDT | | results section. | + +--------+ + + + | ECG 12 LEAD | Routin | 04/26/2017 | | Results for this | | | e | 11:38 AM | | procedure are in the | | | | PDT | | results section. | + +--------+ + + + | LABS - EXTERNAL SCAN | | 04/26/2017 | | Results for this | | | | 12:00 AM | | procedure are in the | | | | PDT | | results section. | + +--------+ + + + | IMAGING REPORT - | | 04/25/2017 | | Results for this | | EXTERNAL SCAN | | 12:00 AM | | procedure are in the | | | | PST | | results section. | + +--------+ + + + | IMAGING REPORT - | | 04/25/2017 | | Results for this | | EXTERNAL SCAN | | 12:00 AM | | procedure are in the | | | | PST | | results section. | + +--------+ + + + | IMAGING REPORT - | | 04/25/2017 | | Results for this | | EXTERNAL SCAN | | 12:00 AM | | procedure are in the | | | | PST | | results section. | + +--------+ + + + | LABS - EXTERNAL SCAN | | 04/25/2017 | | Results for this | | | | 12:00 AM | | procedure are in the | | | | PST | | results section. | + +--------+ + + + documented in this encounter Results ECG - EXTERNAL SCAN (04/30/2017 12:00 AM PDT) + + + | Narrative | Performed At | + + + | Ordered by an | | | unspecified provider. | | + + + POC Glucose (04/28/2017 11:50 AM PDT) + +---------+ + + + | Component | Value | Ref Range | Performed | Pathologist | | | | | At | Signature | + +---------+ + + + | Glucose, | 207 (H) | 70 - 109 mg/dL | [facility] | | | P[facility] | | | [facility] | | | | | [facility] | | | | | | [facility] - | | | | | | LABORATORY | | + +---------+ + + + + + | Specimen | + + | Blood | + + + + + + + | Performing | Address | City/State/Zipcode | Phone Number | | Organization | | | | + + + + + | [facility] | [address] | [place] | [phone] | | [facility] | | [address] | | | - LABORATORY | | | | + + + + + CV CARDIAC PROCEDURE (04/28/2017 11:11 AM PDT) + + | Specimen | + + | | + + + + + | Narrative | Performed At | + + + | Bright Triana, | [facility] | | 04/28/2017 11:36 CARDIAC CATHETERIZATION---Radial Approach | | | PATIENT NAME: Behzad Espinal Jr.DATE OF : 1955MEDICAL | | | RECORD NUMBER: [id number] OF PROCEDURE: 04/28/2017 | | | | | | PRIMARY CARE PROVIDER: Shakir Monzon | | | NAJMA MUSKRAT TRAPPER: Bright Triana MD. PRE-PROCEDURE DIAGNOSIS: | | | CAD POST-PROCEDURE DIAGNOSIS: CAD PROCEDURES PERFORMED: | | | Coronary angiography With moderate sedation CONCLUSIONS:1. | | | Diffuse moderate to moderately severe CAD with severe calcification | | | of all three major cors, especially in the proximal sections: A) | | | 70-80% stenosis of a large OM-1 with post stenotic dilatation. B) 70% | | | diffuse stenosis of very small OM-2 C) 99% stenosis of origin of D1; | | | very small vessel. D) 80% distal disease in very small D2. E) 100% | | | occlusion of apical LAD after D3. F) Diffuse mild disease in dominant | | | RCA, moderate size vessel, with worst stenosis of about 50% in mid RCA | | | and PL-1 2. Normal LV function by Echo. 3. Markedly tortuous and | | | calcified left coronary system, especially the LCx system. | | | RECOMMENDATIONS: Maximize medical therapy; failing which consider PCI | | | of the culprit vessel, determined by stress nuclear scan; ad hoc | | | attempt to do PCI of OM-1 is not advisable given the calcification and | | | tortuosity of this vessel and limited availability of equipment here | | | (no rotational atherectomy) and patient's high co-morbid conditions, | | | anemia and liver disease and thrombocytopenia. COMPLICATIONS: None | | | DESCRIPTION OF PROCEDURE: Please refer to the computer log entry form | | | for precise details. I reviewed the patient | | | | | | s pre-sedation assessment and vital signs, supervised and directed | | | sedation from administration to patient stabilization for recovery. | | | Hemostasis was obtained using a compression device. Moderate | | | sedation ended with hemostasis, specific times found in log but | | | duration was roughly 15 minutes. There were no immediate | | | complications. Estimated blood loss was 2 cc.Total contrast used was | | | 60 cc. Coronary Angiography: Access Site: Right Radial Sheath: | | | 6-F. Catheter(s): TIG FINDINGS:Aortic Pressure: 100/85 80 mmHg. | | | Left main coronary artery: Short and Normal Left anterior descending | | | coronary artery: Calcified and abnormal--see conclusions. | | | Circumflex coronary artery: Calcified and abnormal--see | | | conclusions. Right coronary artery: Calcified and abnormal--see | | | conclusions. Bright Triana MD [facility] | | | CenterDATE/TIME: 04/28/2017 11: 11:27 | | |RECOMMENDATIONS: | | | | | |Maximize medical therapy; failing which consider PCI of the | | |culprit vessel, determined by stress nuclear scan; ad hoc attempt | | |to do PCI of OM-1 is not advisable given the calcification and | | |tortuosity of this vessel and limited availability of equipment | | |here (no rotational atherectomy) and patient's high co-morbid | | |conditions, anemia and liver disease and thrombocytopenia. | | | | | | | | |COMPLICATIONS: None | | | | | | | | |DESCRIPTION OF PROCEDURE: | | | | | |Please refer to the computer log entry form for precise details. | | |I reviewed the patient s pre-sedation assessment and vital signs, | | |supervised and directed sedation from administration to patient | | |stabilization for recovery. Hemostasis was obtained using a | | |compression device. Moderate sedation ended with hemostasis, | | |specific times found in log but duration was roughly 15 minutes. | | |There were no immediate complications. Estimated blood loss was | | |2 cc. | | |Total contrast used was 60 cc. | | | | | |Coronary Angiography: | | | Access Site: Right Radial | | | Sheath: 6-F. | | | Catheter(s): TIG | | | | | | | | |FINDINGS: | | |Aortic Pressure: 100/85 80 mmHg. | | | | | | | | |Left main coronary artery: Short and Normal | | | | | |Left anterior descending coronary artery: Calcified and | | |abnormal--see conclusions. | | | | | |Circumflex coronary artery: Calcified and abnormal--see | | |conclusions. | | | | | |Right coronary artery: Calcified and abnormal--see conclusions. | | | | | | | | | | | | | | | | | |Bright Triana MD | | |[facility] | | |DATE/TIME: 04/28/2017 11:27 | | |04/28/2017 11:27 | | | | | | | | | | | | | | + + + + +---------+ + + | Performing | Address | City/State/Zipcode | Phone Number | | Organization | | | | + +---------+ + + | [facility] | | | | + +---------+ + + CBC no Differential (04/28/2017 3:11 AM PDT) + + + + + + | Component | Value | Ref Range | Performed | Pathologist | | | | | At | Signature | + + + + + + | WBC | 10.7 | 4.0 - 11.0 K/uL | [facility] | | | | | [facility] | | | | | | [facility] | | | | | | [facility] - | | | | | | LABORATORY | | + + + + + + | RBC | 3.46 (L) | 4.30 - 5.70 | [facility] | | | | | M/uL | [facility] | | | | | | MEDICAL | | | | | | CENTER - | | | | | | LABORATORY | | + + + + + + | Hemoglobin | 11.2 (L) | 13.5 - 18.0 | [facility] | | | | | g/dL | [facility] | | | | | | MEDICAL | | | | | | CENTER - | | | | | | LABORATORY | | + + + + + + | Hematocrit | 33.6 (L) | 40.0 - 51.0 % | [facility] | | | | | | [facility] | | | | | | [facility]ICAL | | | | | | CENTER - | | | | | | LABORATORY | | + + + + + + | MCV | 97.2 | 83.0 - 101.0 fL | [facility] | | | | | | [facility] | | | | | | [facility] | | | | | | C[facility] - | | | | | | LABORATORY | | + + + + + + | MCH | 32.5 | 28.0 - 35.0 pg | [facility] | | | | | | [facility] | | | | | | [facility]ICAL | | | | | | CENTER - | | | | | | LABORATORY | | + + + + + + | MCHC | 33.4 | 32.0 - 36.0 | [facility] | | | | | g/dL | [facility] | | | | | | MEDICAL | | | | | | CENTER - | | | | | | LABORATORY | | + + + + + + | RDW-CV | 13.5 | <15.0 % | [facility] | | | | | | [facility] | | | | | | MEDICAL | | | | | | CENTER - | | | | | | LABORATORY | | + + + + + + | Platelet | 88 (L) | 140 - 440 K/uL | [facility] | | | Count | | | [facility] | | | | | | [facility]ICAL | | | | | | CENTER - | | | | | | LABORATORY | | + + + + + + | MPV | 8.5 | fL | [facility] | | | | | | [facility] | | | | | | [facility]ICAL | | | | | | CENTER - | | | | | | LABORATORY | | + + + + + + + + | Specimen | + + | Blood | + + + + + + + | Performing | Address | City/State/Zipcode | Phone Number | | Organization | | | | + + + + + | [facility] | [address] | [place] | [phone] | | [facility] | | [address] | | | - LABORATORY | | | | + + + + + Comprehensive Metabolic Panel (04/28/2017 3:11 AM PDT) + + + + + + | Component | Value | Ref Range | Performed | Pathologist | | | | | At | Signature | + + + + + + | Na | 131 (L) | 136 - 149 | [facility] | | | | | mmol/L | [facility] | | | | | | MEDICAL | | | | | | CENTER - | | | | | | LABORATORY | | + + + + + + | K | 3.5 | 3.5 - 5.1 | [facility] | | | | | mmol/L | [facility] | | | | | | MEDICAL | | | | | | CENTER - | | | | | | LABORATORY | | + + + + + + | Cl | 107 | 98 - 109 mmol/L | [facility] | | | | | | [facility] | | | | | | MEDICAL | | | | | | CENTER - | | | | | | LABORATORY | | + + + + + + | CO2 | 18 (L) | 24 - 31 mmol/L | [facility] | | | | | | [facility] | | | | | | [facility] | | | | | | CENTER - | | | | | | LABORATORY | | + + + + + + | Anion Gap | 6 | 3 - 16 mmol/L | [facility] | | | | | | [facility] | | | | | | MED[facility] | | | | | | CENTER - | | | | | | LABORATORY | | + + + + + + | Glucose | 221 (H) | 70 - 109 mg/dL | [facility] | | | | | | [facility] | | | | | | MEDICAL | | | | | | CENTER - | | | | | | LABORATORY | | + + + + + + | BUN | 11 | 7 - 18 mg/dL | [facility] | | | | | | [facility] | | | | | | MEDICAL | | | | | | CENTER - | | | | | | LABORATORY | | + + + + + + | Creatinine | 0.91 | 0.60 - 1.30 | [facility] | | | | | mg/dL | [facility] | | | | | | MEDICAL | | | | | | CENTER - | | | | | | LABORATORY | | + + + + + + | eGFR if not | >60Comment: GLOMERULAR | >=60 | [facility] | | | | FILTRATION | mL/min/1.73m2 | [facility] | | | [place] | RATE,ESTIMATED | | MEDICAL | | | | mL/min/1.29a5Wuhj than | | CENTER - | | | | 60 Chronic kidney | | LABORATORY | | | | disease,if found over a | | | | | | 3-month period.Less than | | | | | | 15 Kidney failureFor | | | | | | | | | | | | Americans,multiply the | | | | | | calculated GFR by 1.21. | | | | | | | | | | + + + + + + | Calcium | 7.7 (L) | 8.3 - 10.5 | [facility] | | | | | mg/dL | [facility] | | | | | | MEDICAL | | | | | | CENTER - | | | | | | LABORATORY | | + + + + + + | Albumin | 2.3 (L) | 3.2 - 5.0 g/dL | [facility] | | | | | | [facility] | | | | | | MEDICAL | | | | | | CENTER - | | | | | | LABORATORY | | + + + + + + | Bilirubin | 1.6 (H) | 0.1 - 1.5 mg/dL | [facility] | | | Total | | | [facility] | | | | | | MED[facility] | | | | | | CENTER - | | | | | | LABORATORY | | + + + + + + | Total | 5.5 (L) | 6.0 - 7.8 g/dL | [facility] | | | Protein | | | [facility] | | | | | | MEDICAL | | | | | | CENTER - | | | | | | LABORATORY | | + + + + + + | AST | 39 | 10 - 42 U/L | [facility] | | | | | | [facility] | | | | | | MEDICAL | | | | | | CENTER - | | | | | | LABORATORY | | + + + + + + | ALT | 18 | 6 - 45 U/L | [facility] | | | | | | [facility] | | | | | | MEDICAL | | | | | | CENTER - | | | | | | LABORATORY | | + + + + + + | Alkaline | 62 | 40 - 110 U/L | [facility] | | | Phosphatase | | | [facility] | | | | | | MEDICAL | | | | | | CENTER - | | | | | | LABORATORY | | + + + + + + | Globulin | 3.2 | 2.1 - 3.8 g/dL | [facility] | | | | | | [facility] | | | | | | MEDICAL | | | | | | CENTER - | | | | | | LABORATORY | | + + + + + + | Albumin/Alessia | 0.7 (L) | 0.8 - 2.0 | [facility] | | | bulin Ratio | | | [facility] | | | | | | MEDICAL | | | | | | CENTER - | | | | | | LABORATORY | | + + + + + + | BUN/Creatin | 12.1 | | [facility] | | | ine Ratio | | | [facility] | | | | | | MEDICAL | | | | | | CENTER - | | | | | | LABORATORY | | + + + + + + + + | Specimen | + + | Blood | + + + + + + + | Performing | Address | City/State/Zipcode | Phone Number | | Organization | | | | + + + + + | [facility] | [address] | [place] | [phone] | | [facility] | | [address] | | | - LABORATORY | | | | + + + + + Troponin I (04/28/2017 3:11 AM PDT) + + + + + + | Component | Value | Ref Range | Performed | Pathologist | | | | | At | Signature | + + + + + + | Troponin I | 0.15 (H)Comment: | <0.06 ng/mL | [facility] | | | | Reference | | [facility] | | | | Ranges:0.00-0.06 = | | MEDICAL | | | | NORMAL>0.06 = | | CENTER - | | | | SUSPICIOUS FOR | | LABORATORY | | | | MYOCARDIAL DAMAGE NOTE: | | | | | | Values greater than 0.50 | | | | | | ng/mL have been shown | | | | | | to be strongly | | | | | | associated with acute | | | | | | myocardial infarction. | | | | | | The [employer] | | | | | | Cardiology (ACC) | | | | | | recommends a decision | | | | | | limit of 0.06 ng/mL for | | | | | | this assay. Results | | | | | | greater than 0.06 can | | | | | | reflect a pre-infarct | | | | | | acute coronary syndrome, | | | | | | but can also reflect | | | | | | myocardial necrosis or | | | | | | injury that is not due | | | | | | to coronary artery | | | | | | disease. Some of these | | | | | | causes are sepsis, | | | | | | hypocolemia, atrial | | | | | | fibrillation, heart | | | | | | failure, pulmonary | | | | | | embolism, myocarditis, | | | | | | myocardial contusion, | | | | | | and renal failure. The | | | | | | diagnosis of myocardial | | | | | | infarction should be | | | | | | based on a combination | | | | | | of the patient's | | | | | | clinical presentation | | | | | | and the clinical | | | | | | laboratory test results | | | | | | (especially serial | | | | | | troponin levels). | | | | + + + + + + + + | Specimen | + + | Blood | + + + + + + + | Performing | Address | City/State/Zipcode | Phone Number | | Organization | | | | + + + + + | [facility] | [address] | [place] | [phone] | | [facility] | | [address] | | | - LABORATORY | | | | + + + + + Troponin I (04/27/2017 9:09 PM PDT) + + + + + + | Component | Value | Ref Range | Performed | Pathologist | | | | | At | Signature | + + + + + + | Troponin I | 0.22 (H)Comment: | <0.06 ng/mL | [facility] | | | | Reference | | [facility] | | | | Ranges:0.00-0.06 = | | MEDICAL | | | | NORMAL>0.06 = | | CENTER - | | | | SUSPICIOUS FOR | | LABORATORY | | | | MYOCARDIAL DAMAGE NOTE: | | | | | | Values greater than 0.50 | | | | | | ng/mL have been shown | | | | | | to be strongly | | | | | | associated with acute | | | | | | myocardial infarction. | | | | | | The [employer] | | | | | | Cardiology (ACC) | | | | | | recommends a decision | | | | | | limit of 0.06 ng/mL for | | | | | | this assay. Results | | | | | | greater than 0.06 can | | | | | | reflect a pre-infarct | | | | | | acute coronary syndrome, | | | | | | but can also reflect | | | | | | myocardial necrosis or | | | | | | injury that is not due | | | | | | to coronary artery | | | | | | disease. Some of these | | | | | | causes are sepsis, | | | | | | hypocolemia, atrial | | | | | | fibrillation, heart | | | | | | failure, pulmonary | | | | | | embolism, myocarditis, | | | | | | myocardial contusion, | | | | | | and renal failure. The | | | | | | diagnosis of myocardial | | | | | | infarction should be | | | | | | based on a combination | | | | | | of the patient's | | | | | | clinical presentation | | | | | | and the clinical | | | | | | laboratory test results | | | | | | (especially serial | | | | | | troponin levels). | | | | + + + + + + + + | Specimen | + + | Blood | + + + + + + + | Performing | Address | City/State/Zipcode | Phone Number | | Organization | | | | + + + + + | [facility] | [address] | [place] | [phone] | | [facility] | | [address] | | | - LABORATORY | | | | + + + + + XR Chest AP Portable (04/27/2017 8:52 PM PDT) + + | Specimen | + + | | + + + + + | Narrative | Performed At | + + + | SINGLE AP CHEST 04/27/2017 8:52 PM CLINICAL HISTORY: check for | [facility] | | [facility] COMPARISON: None available FINDINGS: The cardiomediastinal | | | silhouette and pulmonary vasculature are unremarkable. The lungs | | | are clear, without visible pneumothorax or pleural effusion. The | | | bones and soft tissues are unremarkable. IMPRESSION - 1. | | | NO RADIOGRAPHIC EVIDENCE OF ACTIVE DISEASE IN THE CHEST. Dictated | | | and Signed by: Tree Johnston MD Electronically signed: 04/27/2017 | | | 10:42 PM | | + + + + + | Procedure Note | + + | Harjit, Andrey Results In - 04/27/2017 10:45 PM PDT SINGLE AP CHEST 04/27/2017 8:52 PM | | | | CLINICAL HISTORY: check for [facility]NA | | | | COMPARISON: None available | | | | FINDINGS: The cardiomediastinal silhouette and pulmonary vasculature are | | unremarkable. The lungs are clear, without visible pneumothorax or pleural | | effusion. The bones and soft tissues are unremarkable. | | | | IMPRESSION - | | | | 1. NO RADIOGRAPHIC EVIDENCE OF ACTIVE DISEASE IN THE CHEST. | | | | Dictated and Signed by: Tree Johnston MD | | Electronically signed: 04/27/2017 10:42 PM | + + + +---------+ + + | Performing | Address | City/State/Zipcode | Phone Number | | Organization | | | | + +---------+ + + | [facility] | | | | + +---------+ + + POC Glucose (04/27/2017 8:27 PM PDT) + +---------+ + + + | Component | Value | Ref Range | Performed | Pathologist | | | | | At | Signature | + +---------+ + + + | Glucose, | 206 (H) | 70 - 109 mg/dL | [facility] | | | POC | | | [facility] | | | | | | [facility]ICAL | | | | | | CENTER - | | | | | | LABORATORY | | + +---------+ + + + + + | Specimen | + + | Blood | + + + + + + + | Performing | Address | City/State/Zipcode | Phone Number | | Organization | | | | + + + + + | [facility] | [address] | [place] | [phone] | | [facility] | | [address] | | | - LABORATORY | | | | + + + + + POC Glucose (04/27/2017 4:28 PM PDT) + +---------+ + + + | Component | Value | Ref Range | Performed | Pathologist | | | | | At | Signature | + +---------+ + + + | Glucose, | 191 (H) | 70 - 109 mg/dL | [facility] | | | [facility] | | | [facility] | | | | | [facility] | | | | | | [facility] - | | | | | | LABORATORY | | + +---------+ + + + + + | Specimen | + + | Blood | + + + + + + + | Performing | Address | City/State/Zipcode | Phone Number | | Organization | | | | + + + + + | [facility] | [address] | [place] | [phone] | | [facility] | | [address] | | | - LABORATORY | | | | + + + + + Troponin I (04/27/2017 3:33 PM PDT) + + + + + + | Component | Value | Ref Range | Performed | Pathologist | | | | | At | Signature | + + + + + + | Troponin I | 0.27 (H)Comment: | <0.06 ng/mL | [facility] | | | | Reference | | [facility] | | | | Ranges:0.00-0.06 = | | MEDICAL | | | | NORMAL>0.06 = | | CENTER - | | | | SUSPICIOUS FOR | | LABORATORY | | | | MYOCARDIAL DAMAGE NOTE: | | | | | | Values greater than 0.50 | | | | | | ng/mL have been shown | | | | | | to be strongly | | | | | | associated with acute | | | | | | myocardial infarction. | | | | | | The [employer] | | | | | | Cardiology (ACC) | | | | | | recommends a decision | | | | | | limit of 0.06 ng/mL for | | | | | | this assay. Results | | | | | | greater than 0.06 can | | | | | | reflect a pre-infarct | | | | | | acute coronary syndrome, | | | | | | but can also reflect | | | | | | myocardial necrosis or | | | | | | injury that is not due | | | | | | to coronary artery | | | | | | disease. Some of these | | | | | | causes are sepsis, | | | | | | hypocolemia, atrial | | | | | | fibrillation, heart | | | | | | failure, pulmonary | | | | | | embolism, myocarditis, | | | | | | myocardial contusion, | | | | | | and renal failure. The | | | | | | diagnosis of myocardial | | | | | | infarction should be | | | | | | based on a combination | | | | | | of the patient's | | | | | | clinical presentation | | | | | | and the clinical | | | | | | laboratory test results | | | | | | (especially serial | | | | | | troponin levels). | | | | + + + + + + + + | Specimen | + + | Blood | + + + + + + + | Performing | Address | City/State/Zipcode | Phone Number | | Organization | | | | + + + + + | [facility] | [address] | [place] | [phone] | | [facility] | | [address] | | | - LABORATORY | | | | + + + + + ECHO Complete (04/27/2017 2:28 PM PDT) + +-------+ + + + | Component | Value | Ref Range | Performed | Pathologist | | | | | At | Signature | + +-------+ + + + | LVEF-TTE | 55 | | [facility] | | | TRANSTHORAC | | | | | | IC ECHO | | | | | + +-------+ + + + + + | Specimen | + + | | + + + +-- + | Narrative | P erformed At | + +-- + | Transthoracic | [facility] | | Echocardiography Report (TTE) Demographics Patient Name DIPESH | | | BEHZAD Room Number 454 JR. 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 Procedure | | | dateDate: 04/27/2017Start: 01:54 PM Technical Quality: Adequate | | | visualizationStudy Location: ICUIndications: Atrial Fibrillation | | | 427.31/I48.91.Patient Status: RoutineHeight: 70 inchesWeight: 220 | | | poundsBSA: 2.17 m^2BMI: 31.57 kg/m^2Rhythm: Normal Sinus Rhythm | | | ConclusionsSummary1. Mild left atrial dilatation.2. Normal left | | | ventricular size with a mild concentric left ventricularhypertrophy. | | | Left ventricular systolic function is preserved. LVEF is55-60%.3. | | | Grade 1 left ventricular diastolic dysfunction.4. Mildly thickened | | | mitral valve with adequate opening.5. Mild mitral annular | | | calcification.6. Mildly thickened and calcified trileaflet aortic | | | valve with borderlinemild calcific aortic valve stenosis.7. Mild | | | pulmonary hypertension with a peak systolic pressure of 35-40 mmHg.8. | | | Dilated IVC without respiratory collapse suggesting fluid retention. | | | Signature | | | | | | PM | | | -------- FindingsMitral ValveMitral valve appears structurally and | | | functionally normal.Mild mitral annular calcification is | | | present.Aortic ValveBorderline .Aortic valve appears | | | trileaflet.Diffuse thickening (sclerosis) of the aortic valve cusps | | | without reducedexcursion.Tricuspid Valve Mild tricuspid regurgitation | | | suggestive of a mildly elevated right systolicpressure of 35-40 | | | mmHg.Pulmonic ValveStructurally normal pulmonic valve without | | | significant stenosis orregurgitation.Left AtriumThe left atrium is | | | mildly dilated.Left VentricleNormal left ventricular cavity size.Mild | | | concentric left ventricular hypertrophy.Ejection fraction is visually | | | estimated at 55-60%.Impaired relaxation compatible with diastolic | | | dysfunction (reversed E/Aratio).Right AtriumNormal right atrial | | | size.Right VentricleNormal right ventricular size.Right ventricle | | | global systolic function is normal.TAPSE = 2.8 cm.Pericardial | | | EffusionNo evidence of pericardial effusion.Pleural EffusionNo | | | evidence of pleural effusion.MiscellaneousAortic root dimension within | | | normal limits.The IVC appears dilated.IVC respiratory change in | | | dimension <50%. Valves Mitral Valve Peak E-Wave: 0.97 m/s Peak | | | A-Wave: 1.01 m/s Tissue Doppler Septal e' Velocity: 0.08 m/s Septal | | | E/e' Ratio:12.86 Aortic Valve Peak Velocity: 2.05 m/s | | | Area (continuity): 2.65 cm^2 Peak Gradient: 16.81 mmHg | | | Mean Gradient: 8.96 mmHg Tricuspid Valve TR Velocity: 2.19 m/s | | | LVOT Peak Velocity: 1.1 m/s LVOT Diameter: 2.41 cm Structures Left | | | Atrium LA A/P Dimension: 5.4 cm LA | | | Area: 26.56 cm^2 LA Vol/BSA Index: 39 mL/m^2 | | | LA Volume: 84.98 ml | | | EF Qgvurxvrj09% Left Ventricle Diastolic | | | Dimension: 5.83 cm Systolic Dimension: 3.5 cm Septum | | | Diastolic: 1.48 cm PW Diastolic: 1.73 cm EF Calculated: 55% | | | Miscellaneous Aorta Aortic Root: 3.5 cm Ascending Aorta: 3.79 cm | | |Mitral valve appears structurally and functionally normal. | | |Mild mitral annular calcification is present. | | |Aortic Valve | | |Borderline . | | |Aortic valve appears trileaflet. | | |Diffuse thickening (sclerosis) of the aortic valve cusps without reduced | | |excursion. | | |Tricuspid Valve | | | | | |Mild tricuspid regurgitation suggestive of a mildly elevated right systolic | | |pressure of 35-40 mmHg. | | |Pulmonic Valve | | |Structurally normal pulmonic valve without significant stenosis or | | |regurgitation. | | |Left Atrium | | |The left atrium is mildly dilated. | | |Left Ventricle | | |Normal left ventricular cavity size. | | |Mild concentric left ventricular hypertrophy. | | |Ejection fraction is visually estimated at 55-60%. | | |Impaired relaxation compatible with diastolic dysfunction (reversed E/A | | |ratio). | | |Right Atrium | | |Normal right atrial size. | | |Right Ventricle | | |Normal right ventricular size. | | |Right ventricle global systolic function is normal. | | |TAPSE = 2.8 cm. | | |Pericardial Effusion | | |No evidence of pericardial effusion. | | |Pleural Effusion | | |No evidence of pleural effusion. | | |Miscellaneous | | |Aortic root dimension within normal limits. | | |The IVC appears dilated. | | |IVC respiratory change in dimension <50%. | | | | | |Valves | | | | | | Mitral Valve | | | | | | Peak E-Wave: 0.97 m/s | | | Peak A-Wave: 1.01 m/s | | | | | | Tissue Doppler | | | | | | Septal e' Velocity: 0.08 m/s | | | Septal E/e' Ratio:12.86 | | | | | | Aortic Valve | | | | | | Peak Velocity: 2.05 m/s Area (continuity): 2.65 cm^2 | | | Peak Gradient: 16.81 mmHg Mean Gradient: 8.96 mmHg | | | | | | Tricuspid Valve | | | | | | TR Velocity: 2.19 m/s | | | | | | LVOT | | | | | | Peak Velocity: 1.1 m/s | | | LVOT Diameter: 2.41 cm | | | | | |Structures | | | | | | Left Atrium | | | | | | LA A/P Dimension: 5.4 cm LA Area: 26.56 cm^2 | | | LA Vol/BSA Index: 39 mL/m^2 LA Volume: 84.98 ml | | | EF Nqoyprsla40% | | | | | | Left Ventricle | | | | | | Diastolic Dimension: 5.83 cm Systolic Dimension: 3.5 cm | | | Septum Diastolic: 1.48 cm | | | PW Diastolic: 1.73 cm | | | EF Calculated: 55% | | | | | | Miscellaneous | | | | | | Aorta | | | | | | Aortic Root: 3.5 cm | | | Ascending Aorta: 3.79 cm | | | | | + +-- + + + | Procedure Note | + + | Harjit, Rad Results In - 04/27/2017 3:32 PM PDT Transthoracic Echocardiography Report | | (TTE) Demographics Patient Name DIPESH WEN Room Number 454 | | Patient Number [id number] Date of Study 04/27/2017 Visit Number | | [id number] Referring Physician LEATHA IVY | | Number Date of 1955 Slip Feeder Ted Lozano Age | | 61 year(s) Interpreting MONICA LUNA | | Mass Spectrometry Manager CHERYL ANDERSON, | | Gender Male Nurse | | Stress TechnicianProcedureType of Study TTE procedure: ECHO Complete.Procedure dateDate: | | 04/27/2017Start: 01:54 PMTechnical Quality: Adequate visualizationStudy Location: | | ICUIndications: Atrial Fibrillation 427.31/I48.91.Patient Status: RoutineHeight: 70 | | inchesWeight: 220 poundsBSA: 2.17 m^2BMI: 31.57 kg/m^2Rhythm: Normal Sinus | | RhythmConclusionsSummary1. Mild left atrial dilatation.2. Normal left ventricular size | | with a mild concentric left ventricularhypertrophy. Left ventricular systolic function | | is preserved. LVEF is55-60%.3. Grade 1 left ventricular diastolic dysfunction.4. Mildly | | thickened mitral valve with adequate opening.5. Mild mitral annular calcification.6. | | Mildly thickened and calcified trileaflet aortic valve with borderlinemild calcific | | aortic valve stenosis.7. Mild pulmonary hypertension with a peak systolic pressure of | | 35-40 mmHg.8. Dilated IVC without respiratory collapse suggesting fluid | | retention.Signature | | ------- Electronically signed by CHERYL ANDERSON MD(Interpreting physician) on | | 04/27/2017 03:32 | | PM FindingsMi | | tral ValveMitral valve appears structurally and functionally normal.Mild mitral annular | | calcification is present.Aortic ValveBorderline .Aortic valve appears | | trileaflet.Diffuse thickening (sclerosis) of the aortic valve cusps without | | reducedexcursion.Tricuspid ValveMild tricuspid regurgitation suggestive of a mildly | | elevated right systolicpressure of 35-40 mmHg.Pulmonic ValveStructurally normal pulmonic | | valve without significant stenosis orregurgitation.Left AtriumThe left atrium is mildly | | dilated.Left VentricleNormal left ventricular cavity size.Mild concentric left | | ventricular hypertrophy.Ejection fraction is visually estimated at 55-60%.Impaired | | relaxation compatible with diastolic dysfunction (reversed E/Aratio).Right AtriumNormal | | right atrial size.Right VentricleNormal right ventricular size.Right ventricle global | | systolic function is normal.TAPSE = 2.8 cm.Pericardial EffusionNo evidence of | | pericardial effusion.Pleural EffusionNo evidence of pleural effusion.MiscellaneousAortic | | root dimension within normal limits.The IVC appears dilated.IVC respiratory change in | | dimension <50%.Valves Mitral Valve Peak E-Wave: 0.97 m/s Peak A-Wave: 1.01 m/s Tissue | | Doppler Septal e' Velocity: 0.08 m/s Septal E/e' Ratio:12.86 Aortic Valve Peak Velocity: | | 2.05 m/s Area (continuity): 2.65 cm^2 Peak Gradient: 16.81 mmHg | | Mean Gradient: 8.96 mmHg Tricuspid Valve TR Velocity: 2.19 m/s LVOT Peak Velocity: 1.1 | | m/s LVOT Diameter: 2.41 cmStructures Left Atrium LA A/P Dimension: 5.4 cm | | LA Area: 26.56 cm^2 LA Vol/BSA Index: 39 mL/m^2 LA Volume: | | 84.98 ml EF Qmuiklspa29% Left Ventricle | | Diastolic Dimension: 5.83 cm Systolic Dimension: 3.5 cm Septum Diastolic: 1.48 | | cm PW Diastolic: 1.73 cm EF Calculated: 55% Miscellaneous Aorta Aortic Root: 3.5 cm | | Ascending Aorta: 3.79 cm | |4. Mildly thickened mitral valve with adequate opening. | |5. Mild mitral annular calcification. | |6. Mildly thickened and calcified trileaflet aortic valve with borderline | |mild calcific aortic valve stenosis. | |7. Mild pulmonary hypertension with a peak systolic pressure of 35-40 mmHg. | |8. Dilated IVC without respiratory collapse suggesting fluid retention. | | | |Signature | | | | Electronically signed by CHERYL ANDERSON MD(Interpreting physician) on | | 04/27/2017 03:32 PM | | | | | |Findings | |Mitral Valve | |Mitral valve appears structurally and functionally normal. | |Mild mitral annular calcification is present. | |Aortic Valve | |Borderline . | |Aortic valve appears trileaflet. | |Diffuse thickening (sclerosis) of the aortic valve cusps without reduced | |excursion. | |Tricuspid Valve | | | |Mild tricuspid regurgitation suggestive of a mildly elevated right systolic | |pressure of 35-40 mmHg. | |Pulmonic Valve | |Structurally normal pulmonic valve without significant stenosis or | |regurgitation. | |Left Atrium | |The left atrium is mildly dilated. | |Left Ventricle | |Normal left ventricular cavity size. | |Mild concentric left ventricular hypertrophy. | |Ejection fraction is visually estimated at 55-60%. | |Impaired relaxation compatible with diastolic dysfunction (reversed E/A | |ratio). | |Right Atrium | |Normal right atrial size. | |Right Ventricle | |Normal right ventricular size. | |Right ventricle global systolic function is normal. | |TAPSE = 2.8 cm. | |Pericardial Effusion | |No evidence of pericardial effusion. | |Pleural Effusion | |No evidence of pleural effusion. | |Miscellaneous | |Aortic root dimension within normal limits. | |The IVC appears dilated. | |IVC respiratory change in dimension <50%. | | | |Valves | | | | Mitral Valve | | | | Peak E-Wave: 0.97 m/s | | Peak A-Wave: 1.01 m/s | | | | Tissue Doppler | | | | Septal e' Velocity: 0.08 m/s | | Septal E/e' Ratio:12.86 | | | | Aortic Valve | | | | Peak Velocity: 2.05 m/s Area (continuity): 2.65 cm^2 | | Peak Gradient: 16.81 mmHg Mean Gradient: 8.96 mmHg | | | | Tricuspid Valve | | | | TR Velocity: 2.19 m/s | | | | LVOT | | | | Peak Velocity: 1.1 m/s | | LVOT Diameter: 2.41 cm | | | |Structures | | | | Left Atrium | | | | LA A/P Dimension: 5.4 cm LA Area: 26.56 cm^2 | | LA Vol/BSA Index: 39 mL/m^2 LA Volume: 84.98 ml | | EF Fqusuwoki44% | | | | Left Ventricle | | | | Diastolic Dimension: 5.83 cm Systolic Dimension: 3.5 cm | | Septum Diastolic: 1.48 cm | | PW Diastolic: 1.73 cm | | EF Calculated: 55% | | | | Miscellaneous | | | | Aorta | | | | Aortic Root: 3.5 cm | | Ascending Aorta: 3.79 cm | + + + +---------+ + + | Performing | Address | City/State/Zipcode | Phone Number | | Organization | | | | + +---------+ + + | [facility] | | | | + +---------+ + + POC Glucose (04/27/2017 11:31 AM PDT) + +---------+ + + + | Component | Value | Ref Range | Performed | Pathologist | | | | | At | Signature | + +---------+ + + + | Glucose, | 233 (H) | 70 - 109 mg/dL | [facility] | | | POC | | | [facility] | | | | | | [facility] | | | | | | C[facility] - | | | | | | LABORATORY | | + +---------+ + + + + + | Specimen | + + | Blood | + + + + + + + | Performing | Address | City/State/Zipcode | Phone Number | | Organization | | | | + + + + + | [facility] | [address] | [place] | [phone] | | [facility] | | [address] | | | - LABORATORY | | | | + + + + + Magnesium (04/27/2017 9:08 AM PDT) + +---------+ + + + | Component | Value | Ref Range | Performed | Pathologist | | | | | At | Signature | + +---------+ + + + | Magnesium | 1.7 (L) | 1.8 - 2.5 mg/dL | [facility] | | | | | [facility] | [facility] | | | [facility] | | | | | | [facility] - | | | | | | LABORATORY | | + +---------+ + + + + + | Specimen | + + | Blood | + + + + + + + | Performing | Address | City/State/Zipcode | Phone Number | | Organization | | | | + + + + + | [facility] | [address] | [place] | [phone] | | [facility] | | [address] | | | - LABORATORY | | | | + + + + + Comprehensive Metabolic Panel (04/27/2017 9:08 AM PDT) + + + + + + | Component | Value | Ref Range | Performed | Pathologist | | | | | At | Signature | + + + + + + | Na | 137 | 136 - 149 | [facility] | | | | | mmol/L | [facility] | | | | | | MEDICAL | | | | | | CENTER - | | | | | | LABORATORY | | + + + + + + | K | 4.2 | 3.5 - 5.1 | [facility] | | | | | mmol/L | [facility] | | | | | | MEDICAL | | | | | | CENTER - | | | | | | LABORATORY | | + + + + + + | Cl | 112 (H) | 98 - 109 mmol/L | [facility] | | | | | | [facility] | | | | | | [facility] | | | | | | CENTER - | | | | | | LABORATORY | | + + + + + + | CO2 | 19 (L) | 24 - 31 mmol/L | [facility] | | | | | | [facility] | | | | | | MEDICAL | | | | | | CENTER - | | | | | | LABORATORY | | + + + + + + | Anion Gap | 6 | 3 - 16 mmol/L | [facility] | | | | | | [facility] | | | | | | [facility] | | | | | | CENTER - | | | | | | LABORATORY | | + + + + + + | Glucose | 254 (H) | 70 - 109 mg/dL | [facility] | | | [facility] | | [facility] | [facility] | | | | | | [facility] - | | | | | | LABORATORY | | + + + + + + | BUN | 9 | 7 - 18 mg/dL | [facility] | | | | | [facility] | | | | | | [facility] | | | | | | [facility] - | | | | | | LABORATORY | | + + + + + + | Creatinine | 0.84 | 0.60 - 1.30 | [facility] | | | | | mg/dL | [facility] | | | | | | MEDICAL | | | | | | CENTER - | | | | | | LABORATORY | | + + + + + + | eGFR if not | >60Comment: GLOMERULAR | >=60 | [facility] | | | | FILTRATION | mL/min/1.73m2 | [facility] | | | [place] | RATE,ESTIMATED | | MEDICAL | | | | mL/min/1.18n6Tihm than | | CENTER - | | | | 60 Chronic kidney | | LABORATORY | | | | disease,if found over a | | | | | | 3-month period.Less than | | | | | | 15 Kidney failureFor | | | | | | | | | | | | Americans,multiply the | | | | | | calculated GFR by 1.21. | | | | | | | | | | + + + + + + | Calcium | 7.8 (L) | 8.3 - 10.5 | [facility] | | | | | mg/dL | [facility] | | | | | | [facility]ICAL | | | | | | CENTER - | | | | | | LABORATORY | | + + + + + + | Albumin | 2.3 (L) | 3.2 - 5.0 g/dL | [facility] | | | | | | [facility] | | | | | | [facility]ICAL | | | | | | CENTER - | | | | | | LABORATORY | | + + + + + + | Bilirubin | 1.9 (H) | 0.1 - 1.5 mg/dL | [facility] | | | Total | | | [facility] | | | | | | MEDICAL | | | | | | CENTER - | | | | | | LABORATORY | | + + + + + + | Total | 5.7 (L) | 6.0 - 7.8 g/dL | [facility] | | | Protein | | | [facility] | | | | | | MEDICAL | | | | | | CENTER - | | | | | | LABORATORY | | + + + + + + | AST | 31 | 10 - 42 U/L | [facility] | | | | | | [facility] | | | | | | MEDICAL | | | | | | CENTER - | | | | | | LABORATORY | | + + + + + + | ALT | 16 | 6 - 45 U/L | [facility] | | | | | | [facility] | | | | | | [facility]ICAL | | | | | | CENTER - | | | | | | LABORATORY | | + + + + + + | Alkaline | 58 | 40 - 110 U/L | [facility] | | | Phosphatase | | | [facility] | | | | | | MEDICAL | | | | | | CENTER - | | | | | | LABORATORY | | + + + + + + | Globulin | 3.4 | 2.1 - 3.8 g/dL | [facility] | | | | | | [facility] | | | | | | MEDICAL | | | | | | CENTER - | | | | | | LABORATORY | | + + + + + + | Albumin/Alessia | 0.7 (L) | 0.8 - 2.0 | [facility] | | | bulin Ratio | | | [facility] | | | | | | MEDICAL | | | | | | CENTER - | | | | | | LABORATORY | | + + + + + + | BUN/Creatin | 10.7 | | [facility] | | | ine Ratio | | | [facility] | | | | | | MEDICAL | | | | | | CENTER - | | | | | | LABORATORY | | + + + + + + + + | Specimen | + + | Blood | + + + + + + + | Performing | Address | City/State/[facility] | Phone Number | | Organization | | | | + + + + + | [facility] | [address] | [place] | [phone] | | [facility] | | [address] | | | - LABORATORY | | | | + + + + + Troponin I (04/27/2017 9:08 AM PDT) + + + + + + | Component | Value | Ref Range | Performed | Pathologist | | | | | At | Signature | + + + + + + | Troponin I | 0.20 (H)Comment: | <0.06 ng/mL | [facility] | | | | Reference | | [facility] | | | | Ranges:0.00-0.06 = | | MEDICAL | | | | NORMAL>0.06 = | | CENTER - | | | | SUSPICIOUS FOR | | LABORATORY | | | | MYOCARDIAL DAMAGE NOTE: | | | | | | Values greater than 0.50 | | | | | | ng/mL have been shown | | | | | | to be strongly | | | | | | associated with acute | | | | | | myocardial infarction. | | | | | | The [employer] | | | | | | Cardiology (ACC) | | | | | | recommends a decision | | | | | | limit of 0.06 ng/mL for | | | | | | this assay. Results | | | | | | greater than 0.06 can | | | | | | reflect a pre-infarct | | | | | | acute coronary syndrome, | | | | | | but can also reflect | | | | | | myocardial necrosis or | | | | | | injury that is not due | | | | | | to coronary artery | | | | | | disease. Some of these | | | | | | causes are sepsis, | | | | | | hypocolemia, atrial | | | | | | fibrillation, heart | | | | | | failure, pulmonary | | | | | | embolism, myocarditis, | | | | | | myocardial contusion, | | | | | | and renal failure. The | | | | | | diagnosis of myocardial | | | | | | infarction should be | | | | | | based on a combination | | | | | | of the patient's | | | | | | clinical presentation | | | | | | and the clinical | | | | | | laboratory test results | | | | | | (especially serial | | | | | | troponin levels). | | | | + + + + + + + + | Specimen | + + | Blood | + + + + + + + | Performing | Address | City/State/Zipcode | Phone Number | | Organization | | | | + + + + + | [facility] | [address] | [place] | [phone] | | [facility] | | [address] | | | - LABORATORY | | | | + + + + + POC Glucose (04/27/2017 7:04 AM PDT) + +---------+ + + + | Component | Value | Ref Range | Performed | Pathologist | | | | | At | Signature | + +---------+ + + + | Glucose, | 256 (H) | 70 - 109 mg/dL | [facility] | | | POC | | | [facility] | | | | | | MEDICAL | | | | | | CENTER - | | | | | | LABORATORY | | + +---------+ + + + + + | Specimen | + + | Blood | + + + + + + + | Performing | Address | City/State/Zipcode | Phone Number | | Organization | | | | + + + + + | [facility] | [address] | [place] | [phone] | | [facility] | | [address] | | | - LABORATORY | | | | + + + + + ECG 12 lead (04/27/2017 2:38 AM PDT) + + + + + + | Component | Value | Ref Range | Performed | Pathologist | | | | | At | Signature | + + + + + + | VENTRICULAR | 124 | BPM | [facility] | | | RATE EKG | | | | | + + + + + + | QRS | 80 | ms | [facility] | | | DURATION | | | | | + + + + + + | Q-T | 344 | ms | [facility] | | | INTERVAL | | | | | + + + + + + | Q-T | 494 | ms | [facility] | | | INTERVAL | | | | | | (CORRECTED) | | | | | + + + + + + | QRS AXIS | 10 | degrees | [facility] | | + + + + + + | T AXIS | -6 | degrees | [facility] | | + + + + + + | INTERPRETAT | Atrial fibrillation with | | [facility] | | | ION TEXT | rapid ventricular | | | | | | responseLow voltage | | | | | | QRSPossible Septal | | | | | | infarct , age | | | | | | undeterminedCannot rule | | | | | | out Inferior infarct , | | | | | | age | | | | | | undeterminedNonspecific | | | | | | T wave abnormality | | | | | | Inferior leadsAbnormal | | | | | | ECGWhen compared with | | | | | | ECG of 26-APR-2017 | | | | | | 11:38,Atrial | | | | | | fibrillation has | | | | | | replaced Sinus | | | | | | rhythmBorderline | | | | | | criteria for Septal | | | | | | infarct , age | | | | | | undetermined is now | | | | | | presentConfirmed by | | | | | | ROXANNA RUEDA MD ([id number]) | | | | | | on 04/27/2017 6:24:19 AM | | | | + + + + + + + + | Specimen | + + | | + + + + + | Narrative | Performed At | + + + | | | + + + + +---------+ + + | Performing | Address | City/State/Zipcode | Phone Number | | Organization | | | | + +---------+ + + | [facility] | | | | + +---------+ + + Culture, MRSA (04/27/2017 1:51 AM PDT) + + + + + + | Component | Value | Ref Range | Performed | Pathologist | | | | | At | Signature | + + + + + + | Culture | Negative for MRSA by | | [facility] | | | | chromogenic agar method | | [facility] | | | | | | [facility] | | | | | | CENTER - | | | | | | LABORATORY | | + + + + + + + + | Specimen | + + | Respiratory - Both | | anterior nares (body | | structure) | + + + + + + + | Performing | Address | City/State/Zipcode | Phone Number | | Organization | | | | + + + + + | [facility] | [address] | [place] | [phone] | | [facility] | | [address] | | | - LABORATORY | | | | + + + + + Troponin I (04/27/2017 1:26 AM PDT) + + + + + + | Component | Value | Ref Range | Performed | Pathologist | | | | | At | Signature | + + + + + + | Troponin I | 0.08 (H)Comment: | <0.06 ng/mL | [facility] | | | | Reference | | [facility] | | | | Ranges:0.00-0.06 = | | MEDICAL | | | | NORMAL>0.06 = | | CENTER - | | | | SUSPICIOUS FOR | | LABORATORY | | | | MYOCARDIAL DAMAGE NOTE: | | | | | | Values greater than 0.50 | | | | | | ng/mL have been shown | | | | | | to be strongly | | | | | | associated with acute | | | | | | myocardial infarction. | | | | | | The [employer] | | | | | | Cardiology (ACC) | | | | | | recommends a decision | | | | | | limit of 0.06 ng/mL for | | | | | | this assay. Results | | | | | | greater than 0.06 can | | | | | | reflect a pre-infarct | | | | | | acute coronary syndrome, | | | | | | but can also reflect | | | | | | myocardial necrosis or | | | | | | injury that is not due | | | | | | to coronary artery | | | | | | disease. Some of these | | | | | | causes are sepsis, | | | | | | hypocolemia, atrial | | | | | | fibrillation, heart | | | | | | failure, pulmonary | | | | | | embolism, myocarditis, | | | | | | myocardial contusion, | | | | | | and renal failure. The | | | | | | diagnosis of myocardial | | | | | | infarction should be | | | | | | based on a combination | | | | | | of the patient's | | | | | | clinical presentation | | | | | | and the clinical | | | | | | laboratory test results | | | | | | (especially serial | | | | | | troponin levels). | | | | + + + + + + + + | Specimen | + + | Blood | + + + + + + + | Performing | Address | City/State/Zipcode | Phone Number | | Organization | | | | + + + + + | [facility] | [address] | [place] | [phone] | | [facility] | | [address] | | | - LABORATORY | | | | + + + + + Magnesium (04/27/2017 1:23 AM PDT) + +---------+ + + + | Component | Value | Ref Range | Performed | Pathologist | | | | | At | Signature | + +---------+ + + + | Magnesium | 1.7 (L) | 1.8 - 2.5 mg/dL | [facility] | | | | | | [facility] | | | | | | [facility] | | | | | | [facility] - | | | | | | LABORATORY | | + +---------+ + + + + + | Specimen | + + | Blood | + + + + + + + | Performing | Address | City/State/Zipcode | Phone Number | | Organization | | | | + + + + + | [facility] | [address] | [place] | [phone] | | [facility] | | [address] | | | - LABORATORY | | | | + + + + + CBC with Differential (04/27/2017 1:23 AM PDT) + + + + + + | Component | Value | Ref Range | Performed | Pathologist | | | | | At | Signature | + + + + + + | WBC | 13.3 (H) | 4.0 - 11.0 K/uL | [facility] | | | | | | [facility] | | | | | [facility] | | | | [facility] - | | | | | | LABORATORY | | + + + + + + | RBC | 3.90 (L) | 4.30 - 5.70 | [facility] | | | | | M/uL | [facility] | | | | | | [facility] | | | | | | C[facility] - | | | | | | LABORATORY | | + + + + + + | Hemoglobin | 12.7 (L) | 13.5 - 18.0 | [facility] | | | | | g/dL | [facility] | | | | | | [facility] | | | | | | CENTER - | | | | | | LABORATORY | | + + + + + + | Hematocrit | 37.5 (L) | 40.0 - 51.0 % | [facility] | | | | | | [facility] | | | | | | [facility] | | | | | | [facility] - | | | | | | LABORATORY | | + + + + + + | MCV | 96.1 | 83.0 - 101.0 fL | [facility] | | | | | | [facility] | | | | | | [facility] | | | | | | [facility] - | | | | | | LABORATORY | | + + + + + + | MCH | 32.5 | 28.0 - 35.0 pg | [facility] | | | | | | [facility] | | | | | | [facility] | | | | | | [facility] - | | | | | | LABORATORY | | + + + + + + | MCHC | 33.8 | 32.0 - 36.0 | [facility] | | | | | g/dL | [facility] | | | | | | [facility] | | | | | | CENTER - | | | | | | LABORATORY | | + + + + + + | RDW-CV | 13.5 | <15.0 % | [facility] | | | | | | [facility] | | | | | | [facility] | | | | | | [facility] - | | | | | | LABORATORY | | + + + + + + | Platelet | 95 (L) | 140 - 440 K/uL | [facility] | | | Count | | | [facility] | | | | | | [facility] | | | | | | [facility] - | | | | | | LABORATORY | | + + + + + + | MPV | 8.8 | fL | [facility] | | | | | | [facility] | | | | | | [facility] | | | | | | CENTER - | | | | | | LABORATORY | | + + + + + + | % | 83.9 (H) | 45.0 - 82.0 % | [facility] | | | Neutrophils | | | [facility] | | | | | | [facility] | | | | | | CENTER - | | | | | | LABORATORY | | + + + + + + | % | 5.9 (L) | 20.0 - 45.0 % | [facility] | | | Lymphocytes | | | [facility] | | | | | | [facility] | | | | | | CENTER - | | | | | | LABORATORY | | + + + + + + | % Monocytes | 8.8 | 4.0 - 12.0 % | [facility] | | | | | | [facility] | | | | | | [facility] | | | | | | [facility] - | | | | | | LABORATORY | | + + + + + + | % | 0.5 | 0.0 - 5.0 % | [facility] | | | Eosinophils | | | [facility] | | | | | | [facility] | | | | | | CENTER - | | | | | | LABORATORY | | + + + + + + | % Basophils | 0.9 | 0.0 - 1.0 % | [facility] | | | | | | [facility] | | | | | | [facility] | | | | | | CENTER - | | | | | | LABORATORY | | + + + + + + | Absolute | 11.10 (H) | 1.80 - 8.50 | [facility] | | | Neutrophils | | K/uL | [facility] | | | | | | [facility] | | | | | | CENTER - | | | | | | LABORATORY | | + + + + + + | Absolute | 0.80 | 0.60 - 3.20 | [facility] | | | Lymphocytes | | K/uL | [facility] | | | | | | [facility] | | | | | | [facility] - | | | | | | LABORATORY | | + + + + + + | Absolute | 1.20 (H) | 0.00 - 1.00 | [facility] | | | Monocytes | | K/uL | [facility] | | | | | | [facility] | | | | | | CENTER - | | | | | | LABORATORY | | + + + + + + | Absolute | 0.10 | 0.00 - 0.40 | [facility] | | | Eosinophils | | K/uL | [facility] | | | | | | [facility] | | | | | | CENTER - | | | | | | LABORATORY | | + + + + + + | Absolute | 0.10 | 0.00 - 0.10 | [facility] | | | Basophils | | K/uL | [facility] | | | | | | [facility] | | | | | | CENTER - | | | | | | LABORATORY | | + + + + + + + + | Specimen | + + | Blood | + + + + + + + | Performing | Address | City/State/Zipcode | Phone Number | | Organization | | | | + + + + + | [facility] | [address] | [place] | [phone] | | [facility] | | [address] | | | - LABORATORY | | | | + + + + + Comprehensive Metabolic Panel (04/27/2017 1:23 AM PDT) + + + + + + | Component | Value | Ref Range | Performed | Pathologist | | | | | At | Signature | + + + + + + | Na | 136 | 136 - 149 | [facility] | | | | | mmol/L | [facility] | | | | | | [facility]ICAL | | | | | | CENTER - | | | | | | LABORATORY | | + + + + + + | K | 3.7 | 3.5 - 5.1 | [facility] | | | | | mmol/L | [facility] | | | | | | [facility] | | | | | | CENTER - | | | | | | LABORATORY | | + + + + + + | Cl | 109 | 98 - 109 mmol/L | [facility] | | | | | | [facility] | | | | | | [facility] | | | | | | CENTER - | | | | | | LABORATORY | | + + + + + + | CO2 | 18 (L) | 24 - 31 mmol/L | [facility] | | | | | | [facility] | | | | | | [facility] | | | | | | CENTER - | | | | | | LABORATORY | | + + + + + + | Anion Gap | 9 | 3 - 16 mmol/L | [facility] | | | | | | [facility] | | | | | | [facility] | | | | | | CENTER - | | | | | | LABORATORY | | + + + + + + | Glucose | 233 (H) | 70 - 109 mg/dL | [facility] | | | | | | [facility] | | | | | | [facility] | | | | | | CENTER - | | | | | | LABORATORY | | + + + + + + | BUN | 8 | 7 - 18 mg/dL | [facility] | | | | | | [facility] | | | | | | [facility] | | | | | | CENTER - | | | | | | LABORATORY | | + + + + + + | Creatinine | 0.92 | 0.60 - 1.30 | [facility] | | | | | mg/dL | [facility] | | | | | | [facility] | | | | | | CENTER - | | | | | | LABORATORY | | + + + + + + | eGFR if not | >60Comment: GLOMERULAR | >=60 | [facility] | | | | FILTRATION | mL/min/1.73m2 | [facility] | | | [facility] | RATE,ESTIMATED | | MEDICAL | | | | mL/min/[id number] than | | CENTER - | | | | 60 Chronic kidney | | LABORATORY | | | | disease,if found over a | | | | | | 3-month period.Less than | | | | | | 15 Kidney failureFor | | | | | | | | | | | | Americans,multiply the | | | | | | calculated GFR by 1.21. | | | | | | | | | | + + + + + + | Calcium | 8.0 (L) | 8.3 - 10.5 | [facility] | | | | | mg/dL | [facility] | | | | | | MEDICAL | | | | | | CENTER - | | | | | | LABORATORY | | + + + + + + | Albumin | 2.5 (L) | 3.2 - 5.0 g/dL | [facility] | | | | | | [facility] | | | | | | [facility] | | | | | | CENTER - | | | | | | LABORATORY | | + + + + + + | Bilirubin | 2.2 (H)Comment: This is | 0.1 - 1.5 mg/dL | [facility] | | | Total | an appended report. | | [facility] | | | | These results have been | | MEDICAL | | | | appended to a previously | | CENTER - | | | | preliminary verified | | LABORATORY | | | | report. | | | | + + + + + + | Total | 6.0 | 6.0 - 7.8 g/dL | [facility] | | | Protein | | | [facility] | | | | | | MEDICAL | | | | | | CENTER - | | | | | | LABORATORY | | + + + + + + | AST | 35Comment: This is an | 10 - 42 U/L | [facility] | | | | appended report. These | | [facility] | | | | results have been | | MEDICAL | | | | appended to a previously | | CENTER - | | | | preliminary verified | | LABORATORY | | | | report. | | | | + + + + + + | ALT | 16Comment: This is an | 6 - 45 U/L | [facility] | | | | appended report. These | | [facility] | | | | results have been | | MEDICAL | | | | appended to a previously | | CENTER - | | | | preliminary verified | | LABORATORY | | | | report. | | | | + + + + + + | Alkaline | 64Comment: This is an | 40 - 110 U/L | [facility] | | | Phosphatase | appended report. These | | [facility] | | | | results have been | | MEDICAL | | | | appended to a previously | | CENTER - | | | | preliminary verified | | LABORATORY | | | | report. | | | | + + + + + + | Globulin | 3.5 | 2.1 - 3.8 g/dL | [facility] | | | | | | [facility] | | | | | | MEDICAL | | | | | | CENTER - | | | | | | LABORATORY | | + + + + + + | Albumin/Alessia | 0.7 (L) | 0.8 - 2.0 | [facility] | | | bulin Ratio | | | [facility] | | | | | | MEDICAL | | | | | | CENTER - | | | | | | LABORATORY | | + + + + + + | BUN/Creatin | 8.7 | | [facility] | | | ine Ratio | | | [facility] | | | | | | MEDICAL | | | | | | CENTER - | | | | | | LABORATORY | | + + + + + + + + | Specimen | + + | Blood | + + + + + + + | Performing | Address | City/State/Zipcode | Phone Number | | Organization | | | | + + + + + | [facility] | [address] | [place], [place] | [phone] | | [facility] | | [address] | | | - LABORATORY | | | | + + + + + POC Glucose (04/26/2017 8:54 PM PDT) + +---------+ + + + | Component | Value | Ref Range | Performed | Pathologist | | | | | At | Signature | + +---------+ + + + | Glucose, | 183 (H) | 70 - 109 mg/dL | [facility] | | | POC | | | [facility] | | | | | | MEDICAL | | | | | | CENTER - | | | | | | LABORATORY | | + +---------+ + + + + + | Specimen | + + | Blood | + + + + + + + | Performing | Address | City/State/Zipcode | Phone Number | | Organization | | | | + + + + + | [facility] | [address] | [place] | [phone] | | [facility] | | [address] | | | - LABORATORY | | | | + + + + + Protime INR (04/26/2017 6:16 PM PDT) + + + + + + | Component | Value | Ref Range | Performed | Pathologist | | | | | At | Signature | + + + + + + | Prothrombin | 14.7 (H) | 11.3 - 13.9 | [facility] | | | Time | | seconds | [facility] | | | | | | MEDICAL | | | | | | CENTER - | | | | | | LABORATORY | | + + + + + + | INR | 1.15 (H)Comment: Usual | 0.90 - 1.10 | [facility] | | | | Oral Anticoagulation | | [facility] | | | | Range: 2.0 - | | MEDICAL | | | | 3.0High Level Oral | | CENTER - | | | | Anticoagulation Range: | | LABORATORY | | | | 2.5 - 3.5 | | | | + + + + + + + + | Specimen | + + | Blood | + + + + + + + | Performing | Address | City/State/Zipcode | Phone Number | | Organization | | | | + + + + + | [facility] | [address] | [place] | [phone] | | [facility] | | [address] | | | - LABORATORY | | | | + + + + + POC Glucose (04/26/2017 4:09 PM PDT) + +---------+ + + + | Component | Value | Ref Range | Performed | Pathologist | | | | | At | Signature | + +---------+ + + + | Glucose, | 205 (H) | 70 - 109 mg/dL | [facility] | | | POC | | | [facility] | | | | | | [facility] | | | | | | CENTER - | | | | | | LABORATORY | | + +---------+ + + + + + | Specimen | + + | Blood | + + + + + + + | Performing | Address | City/State/Zipcode | Phone Number | | Organization | | | | + + + + + | [facility] | [address] | [place] | [phone] | | [facility] | | [address] | | | - LABORATORY | | | | + + + + + POC Glucose (04/26/2017 1:58 PM PDT) + +---------+ + + + | Component | Value | Ref Range | Performed | Pathologist | | | | | At | Signature | + +---------+ + + + | Glucose, | 196 (H) | 70 - 109 mg/dL | [facility] | | | POC | | | [facility] | | | | | | [facility]ICAL | | | | | | CENTER - | | | | | | LABORATORY | | + +---------+ + + + + + | Specimen | + + | Blood | + + + + + + + | Performing | Address | City/State/Zipcode | Phone Number | | Organization | | | | + + + + + | [facility] | [address] | [place] | [phone] | | [facility] | | [address] | | | - LABORATORY | | | | + + + + + CBC with Differential (04/26/2017 12:48 PM PDT) + + + + + + | Component | Value | Ref Range | Performed | Pathologist | | | | | At | Signature | + + + + + + | WBC | 9.9 | 4.0 - 11.0 K/uL | [facility] | | | | | | [facility] | | | | | | MEDICAL | | | | | | CENTER - | | | | | | LABORATORY | | + + + + + + | RBC | 3.54 (L) | 4.30 - 5.70 | [facility] | | | | | M/uL | [facility] | | | | | | MEDICAL | | | | | | CENTER - | | | | | | LABORATORY | | + + + + + + | Hemoglobin | 11.6 (L) | 13.5 - 18.0 | [facility] | | | | | g/dL | [facility] | | | | | | MEDICAL | | | | | | CENTER - | | | | | | LABORATORY | | + + + + + + | Hematocrit | 33.8 (L) | 40.0 - 51.0 % | [facility] | | | | | | [facility] | | | | | | MEDICAL | | | | | | CENTER - | | | | | | LABORATORY | | + + + + + + | MCV | 95.3 | 83.0 - 101.0 fL | [facility] | | | | | | [facility] | | | | | | MEDICAL | | | | | | CENTER - | | | | | | LABORATORY | | + + + + + + | MCH | 32.8 | 28.0 - 35.0 pg | [facility] | | | | | | [facility] | | | | | | [facility]ICAL | | | | | | CENTER - | | | | | | LABORATORY | | + + + + + + | MCHC | 34.4 | 32.0 - 36.0 | [facility] | | | | | g/dL | [facility] | | | | | | MEDICAL | | | | | | CENTER - | | | | | | LABORATORY | | + + + + + + | RDW-CV | 13.5 | <15.0 % | [facility] | | | | | | [facility] | | | | | | MEDICAL | | | | | | CENTER - | | | | | | LABORATORY | | + + + + + + | Platelet | 86 (L) | 140 - 440 K/uL | [facility] | | | Count | | | [facility] | | | | | | MEDICAL | | | | | | CENTER - | | | | | | LABORATORY | | + + + + + + | MPV | 8.8 | fL | [facility] | | | | | | [facility] | | | | | | MEDICAL | | | | | | CENTER - | | | | | | LABORATORY | | + + + + + + | % | 78.6 | 45.0 - 82.0 % | [facility] | | | Neutrophils | | | [facility] | | | | | | MEDICAL | | | | | | CENTER - | | | | | | LABORATORY | | + + + + + + | % | 8.8 (L) | 20.0 - 45.0 % | [facility] | | | Lymphocytes | | | [facility] | | | | | | MEDICAL | | | | | | CENTER - | | | | | | LABORATORY | | + + + + + + | % Monocytes | 10.7 | 4.0 - 12.0 % | [facility] | | | | | | [facility] | | | | | | [facility]ICAL | | | | | | CENTER - | | | | | | LABORATORY | | + + + + + + | % | 1.3 | 0.0 - 5.0 % | [facility] | | | Eosinophils | | | [facility] | | | | | | MEDICAL | | | | | | CENTER - | | | | | | LABORATORY | | + + + + + + | % Basophils | 0.6 | 0.0 - 1.0 % | [facility] | | | | | | [facility] | | | | | | MEDICAL | | | | | | CENTER - | | | | | | LABORATORY | | + + + + + + | Absolute | 7.80 | 1.80 - 8.50 | [facility] | | | Neutrophils | | K/uL | [facility] | | | | | | MEDICAL | | | | | | CENTER - | | | | | | LABORATORY | | + + + + + + | Absolute | 0.90 | 0.60 - 3.20 | [facility] | | | Lymphocytes | | K/uL | [facility] | | | | | | MEDICAL | | | | | | CENTER - | | | | | | LABORATORY | | + + + + + + | Absolute | 1.10 (H) | 0.00 - 1.00 | [facility] | | | Monocytes | | K/uL | [facility] | | | | | | MEDICAL | | | | | | CENTER - | | | | | | LABORATORY | | + + + + + + | Absolute | 0.10 | 0.00 - 0.40 | [facility] | | | Eosinophils | | K/uL | [facility] | | | | | | MEDICAL | | | | | | CENTER - | | | | | | LABORATORY | | + + + + + + | Absolute | 0.10 | 0.00 - 0.10 | [facility] | | | Basophils | | K/uL | [facility] | | | | | | MEDICAL | | | | | | CENTER - | | | | | | LABORATORY | | + + + + + + + + | Specimen | + + | Blood | + + + + + + + | Performing | Address | City/State/Zipcode | Phone Number | | Organization | | | | + + + + + | [facility] | [address] | [place] | [phone] | | [facility] | | [address] | | | - LABORATORY | | | | + + + + + Comprehensive Metabolic Panel (04/26/2017 12:48 PM PDT) + + + + + + | Component | Value | Ref Range | Performed | Pathologist | | | | | At | Signature | + + + + + + | Na | 133 (L) | 136 - 149 | [facility] | | | | | mmol/L | [facility] | | | | | | MEDICAL | | | | | | CENTER - | | | | | | LABORATORY | | + + + + + + | K | 3.7 | 3.5 - 5.1 | [facility] | | | | | mmol/L | [facility] | | | | | | MEDICAL | | | | | | CENTER - | | | | | | LABORATORY | | + + + + + + | Cl | 106 | 98 - 109 mmol/L | [facility] | | | | | | [facility] | | | | | | [facility]ICAL | | | | | | CENTER - | | | | | | LABORATORY | | + + + + + + | CO2 | 20 (L) | 24 - 31 mmol/L | [facility] | | | | | | [facility] | | | | | | [facility]ICAL | | | | | | CENTER - | | | | | | LABORATORY | | + + + + + + | Anion Gap | 7 | 3 - 16 mmol/L | [facility] | | | | | | [facility] | | | | | | MEDICAL | | | | | | CENTER - | | | | | | LABORATORY | | + + + + + + | Glucose | 226 (H) | 70 - 109 mg/dL | [facility] | | | | | | [facility] | | | | | | MEDICAL | | | | | | CENTER - | | | | | | LABORATORY | | + + + + + + | BUN | 7 | 7 - 18 mg/dL | [facility] | | | | | | [facility] | | | | | | [facility] | | | | | | CENTER - | | | | | | LABORATORY | | + + + + + + | Creatinine | 0.90 | 0.60 - 1.30 | [facility] | | | | | mg/dL | [facility] | | | | | | MEDICAL | | | | | | CENTER - | | | | | | LABORATORY | | + + + + + + | eGFR if not | >60Comment: GLOMERULAR | >=60 | [facility] | | | | FILTRATION | mL/min/1.73m2 | [facility] | | | [facility] | RATE,ESTIMATED | | MEDICAL | | | | mL/min/1.34c1Ocsw than | | CENTER - | | | | 60 Chronic kidney | | LABORATORY | | | | disease,if found over a | | | | | | 3-month period.Less than | | | | | | 15 Kidney failureFor | | | | | | | | | | | | Americans,multiply the | | | | | | calculated GFR by 1.21. | | | | | | | | | | + + + + + + | Calcium | 7.9 (L) | 8.3 - 10.5 | [facility] | | | | | mg/dL | [facility] | | | | | | MEDICAL | | | | | | CENTER - | | | | | | LABORATORY | | + + + + + + | Albumin | 2.4 (L) | 3.2 - 5.0 g/dL | [facility] | | | | | | [facility] | | | | | | MEDICAL | | | | | | CENTER - | | | | | | LABORATORY | | + + + + + + | Bilirubin | 1.7 (H) | 0.1 - 1.5 mg/dL | [facility] | | | Total | | | [facility] | | | | | | MEDICAL | | | | | | CENTER - | | | | | | LABORATORY | | + + + + + + | Total | 5.9 (L) | 6.0 - 7.8 g/dL | [facility] | | | Protein | | | [facility] | | | | | | MEDICAL | | | | | | CENTER - | | | | | | LABORATORY | | + + + + + + | AST | 36 | 10 - 42 U/L | [facility] | | | | | | [facility] | | | | | | [facility]ICAL | | | | | | CENTER - | | | | | | LABORATORY | | + + + + + + | ALT | 16 | 6 - 45 U/L | [facility] | | | | | | [facility] | | | | | | [facility]ICAL | | | | | | CENTER - | | | | | | LABORATORY | | + + + + + + | Alkaline | 59 | 40 - 110 U/L | [facility] | | | Phosphatase | | | [facility] | | | | | | MEDICAL | | | | | | CENTER - | | | | | | LABORATORY | | + + + + + + | Globulin | 3.5 | 2.1 - 3.8 g/dL | [facility] | | | | | | [facility] | | | | | | MEDICAL | | | | | | CENTER - | | | | | | LABORATORY | | + + + + + + | Albumin/Alessia | 0.7 (L) | 0.8 - 2.0 | [facility] | | | bulin Ratio | | | [facility] | | | | | | MEDICAL | | | | | | CENTER - | | | | | | LABORATORY | | + + + + + + | BUN/Creatin | 7.8 | | [facility] | | | ine Ratio | | | [facility] | | | | | | MEDICAL | | | | | | CENTER - | | | | | | LABORATORY | | + + + + + + + + | Specimen | + + | Blood | + + + + + + + | Performing | Address | City/State/Zipcode | Phone Number | | Organization | | | | + + + + + | [facility] | [address] | [place] | [phone] | | [facility] | | [address] | | | - LABORATORY | | | | + + + + + Lactic Acid (04/26/2017 12:48 PM PDT) + +-------+ + + + | Component | Value | Ref Range | Performed | Pathologist | | | | | At | Signature | + +-------+ + + + | Lactate | 1.6 | 0.5 - 2.2 | [facility] | | | | | mmol/L | [facility] | | | | | | MEDICAL | | | | | | CENTER - | | | | | | LABORATORY | | + +-------+ + + + + + | Specimen | + + | Blood | + + + + + + + | Performing | Address | City/State/Zipcode | Phone Number | | Organization | | | | + + + + + | [facility] | [address] | [place] | [phone] | | [facility] | | [address] | | | - LABORATORY | | | | + + + + + MRI MRCP Liver wo Contrast (04/26/2017 12:37 PM PDT) + + | Specimen | + + | | + + + + + | Narrative | Performed At | + + + | MRI [facility] LIVER WO CONTRAST 04/26/2017 12:17 PM HISTORY:?BILIARY | [facility] | | OBSTRUCTION, RULE OUT CBD STONE. COMPARISON: Multiple priors. | | | PROTOCOL: Coronal T2 catering manager, axial T2 catering manager, coronal 3D respiratory | | | triggered, coronal T2 thin slab, T2 thick slab set. Reconstruction | | | views were obtained. FINDINGS: Multiple small stones are | | | visualized within the gallbladder neck. There is no evidence for | | | gallbladder wall thickening. The cystic duct is normal. The common | | | bile duct measures 7 mm, which is normal. There is possible tiny | | | filling defects within the distal aspect of the common bile duct that | | | may represent tiny stones. The pancreatic duct measures 2 mm, which | | | is normal. Chest base is normal. The liver demonstrates a mildly | | | nodular pattern suggestive of cirrhosis. A tiny cyst is in the | | | anterior aspect of the right hepatic lobe measuring 4 mm. The spleen | | | is enlarged measuring 18.6 cm. The pancreas has a normal appearance | | | otherwise. Adrenal glands are normal. The right kidney and visualized | | | ureter are normal. The left kidney and visualized ureter are normal. | | | Limited evaluation of the stomach, small bowel, and colon show no | | | acute findings. Venous structures are unremarkable. No enlarged lymph | | | nodes are visualized within the omentum or retroperitoneum. There is | | | no evidence for ascites or free air. Body wall soft tissue | | | structures are normal. There are no acute osseous abnormalities. | | | IMPRESSION - Cholelithiasis and possible distal choledocholithiasis | | | with no definite evidence for cholecystitis. Dictated and Signed | | | by: Walter Jacob MD Electronically signed: 04/26/2017 1:47 PM | | + + + + + | Procedure Note | + + | Harjit, Rad Results In - 04/26/2017 1:50 PM PDT MRI MRCP LIVER WO CONTRAST 04/26/2017 | | 12:17 PM HISTORY:?BILIARY OBSTRUCTION, RULE OUT CBD STONE.COMPARISON: Multiple | | priors.PROTOCOL: Coronal T2 catering manager, axial T2 catering manager, coronal 3D respiratory | | triggered,coronal T2 thin slab, T2 thick slab set. Reconstruction views were | | obtained.FINDINGS:Multiple small stones are visualized within the gallbladder neck. | | There is noevidence for gallbladder wall thickening. The cystic duct is normal. The | | commonbile duct measures 7 mm, which is normal. There is possible tiny filling | | defectswithin the distal aspect of the common bile duct that may represent tiny | | stones.The pancreatic duct measures 2 mm, which is normal.Chest base is normal. The | | liver demonstrates a mildly nodular pattern suggestiveof cirrhosis. A tiny cyst is in | | the anterior aspect of the right hepatic lobemeasuring 4 mm. The spleen is enlarged | | measuring 18.6 cm. The pancreas has anormal appearance otherwise. Adrenal glands are | | normal. The right kidney andvisualized ureter are normal. The left kidney and visualized | | ureter are normal.Limited evaluation of the stomach, small bowel, and colon show no | | acutefindings. Venous structures are unremarkable. No enlarged lymph nodes arevisualized | | within the omentum or retroperitoneum. There is no evidence forascites or free air.Body | | wall soft tissue structures are normal. There are no acute | | osseousabnormalities.IMPRESSION -Cholelithiasis and possible distal choledocholithiasis | | with no definite evidencefor cholecystitis.Dictated and Signed by: Walter Jacob MD | | Electronically signed: 04/26/2017 1:47 PM | |visualized ureter are normal. The left kidney and visualized ureter are normal. | |Limited evaluation of the stomach, small bowel, and colon show no acute | |findings. Venous structures are unremarkable. No enlarged lymph nodes are | |visualized within the omentum or retroperitoneum. There is no evidence for | |ascites or free air. | | | |Body wall soft tissue structures are normal. There are no acute osseous | |abnormalities. | | | |IMPRESSION - | |Cholelithiasis and possible distal choledocholithiasis with no definite evidence | |for cholecystitis. | | | |Dictated and Signed by: Walter Jacob MD | | Electronically signed: 04/26/2017 1:47 PM | + + + +---------+ + + | Performing | Address | City/State/Zipcode | Phone Number | | Organization | | | | + +---------+ + + | [facility] | | | | + +---------+ + + ECG 12 lead (04/26/2017 11:38 AM PDT) + + + + + + | Component | Value | Ref Range | Performed | Pathologist | | | | | At | Signature | + + + + + + | VENTRICULAR | 90 | BPM | [facility] | | | RATE EKG | | | | | + + + + + + | ATRIAL RATE | 90 | BPM | [facility] | | + + + + + + | P-R | 192 | ms | [facility] | | | INTERVAL | | | | | + + + + + + | QRS | 84 | ms | [facility] | | | DURATION | | | | | + + + + + + | Q-T | 384 | ms | [facility] | | | INTERVAL | | | | | + + + + + + | Q-T | 469 | ms | [facility] | | | INTERVAL | | | | | | (CORRECTED) | | | | | + + + + + + | P WAVE AXIS | 20 | degrees | [facility] | | + + + + + + | QRS AXIS | 8 | degrees | [facility] | | + + + + + + | T AXIS | 4 | degrees | [facility] | | + + + + + + | INTERPRETAT | Normal sinus | | [facility] | | | ION TEXT | rhythmProlonged | | | | | | QTcCannot rule out | | | | | | Inferior infarct , age | | | | | | undeterminedNonspecific | | | | | | T wave abnormality | | | | | | Inferior leadsAbnormal | | | | | | ECGNo previous ECGs | | | | | | availableConfirmed by | | | | | | ROXANNA RUEDA MD ([id number]) | | | | | | on 04/26/2017 7:33:22 PM | | | | + + + + + + + + | Specimen | + + | | + + + + + | Narrative | Performed At | + + + | | | + + + + +---------+ + + | Performing | Address | City/State/Zipcode | Phone Number | | Organization | | | | + +---------+ + + | [facility] | | | | + +---------+ + + LABS - EXTERNAL SCAN (04/26/2017 12:00 AM PDT) + + + | Narrative | Performed At | + + + | Ordered by an | | | unspecified provider. | | + + + LABS - EXTERNAL SCAN (04/25/2017 12:00 AM PST) + + + | Narrative | Performed At | + + + | Ordered by an | | | unspecified provider. | | + + + IMAGING REPORT - EXTERNAL SCAN (04/25/2017 12:00 AM PST) + + + | Narrative | Performed At | + + + | Ordered by an | | | unspecified provider. | | + + + IMAGING REPORT - EXTERNAL SCAN (04/25/2017 12:00 AM PST) + + + | Narrative | Performed At | + + + | Ordered by an | | | unspecified provider. | | + + + IMAGING REPORT - EXTERNAL SCAN (04/25/2017 12:00 AM PST) + + + | Narrative | Performed At | + + + | Ordered by an | | | unspecified provider. | | + + + documented in this encounter Visit Diagnoses Not on filedocumented in this encounter Administered Medications + +--------+ +--------+------+------+ | Medication Order | MAR | Action | Dose | Rate | Site | | | Action | Date | | | | + +--------+ +--------+------+------+ | acetaminophen (TYLENOL) tablet | Given | 04/27/19 | 650 mg | | | | 650 mg 650 mg, Oral, EVERY 4 | | 18 10:03 | | | | | HOURS PRN, Pain, Starting Mon | | PM PDT | | | | | 04/26/17 at 1751 | | | | | | + +--------+ +--------+------+------+ +-------+ +--------+---+---+ | Given | 04/27/19 | 650 mg | | | | | 18 6:37 | | | | | | PM PDT | | | | +-------+ +--------+---+---+ +---+---+ | | | +---+---+ + +-------+ +--------+---+---+ | cholecalciferol (VITAMIN D-3) | Given | 04/29/19 | 5,000 | | | | tablet 5,000 Units 5,000 Units, | | 18 8:07 | Units | | | | Oral, DAILY, First dose on Mon | | AM PDT | | | | | 04/26/17 at 1120 | | | | | | + +-------+ +--------+---+---+ +-------+ +--------+---+---+ | Given | 04/28/19 | 5,000 | | | | | 18 8:29 | Units | | | | | AM PDT | | | | +-------+ +--------+---+---+ | Given | 04/27/19 | 5,000 | | | | | 18 12:46 | Units | | | | | PM PDT | | | | +-------+ +--------+---+---+ +---+---+ | | | +---+---+ + +---------+ +---+ +---+ | dextrose 5% lactated ringers | New Bag | 04/29/19 | | 75 mL/hr | | | (D5LR) 1,000 mL with potassium | | 18 9:08 | | | | | chloride 20 mEq infusion at 75 | | AM PDT | | | | | mL/hr, Intravenous, CONTINUOUS, | | | | | | | Starting 04/28/17 at 0830 | | | | | | + +---------+ +---+ +---+ + +---+ | | | + +---+ | dextrose 50% injection 12.5 g | | | 12.5 g, Intravenous, PRN, Low | | | Blood Sugar, Starting 04/26/17 | | | at 1200 | | + +---+ | | | + +---+ + +-------+ +--------+---+---+ | fentaNYL (PF) injection ONCE | Given | 04/29/19 | 25 mcg | | | | PRN, Starting 04/28/17 at | | 18 10:47 | | | | | 1047, Intra-op | | AM PDT | | | | + +-------+ +--------+---+---+ +---+---+ | | | +---+---+ + +-------+ +--------+---+---+ | guaiFENesin (ROBITUSSIN) 100 | Given | 04/29/19 | 200 mg | | | | mg/5 mL liquid 200 mg 200 mg, | | 18 3:54 | | | | | Oral, EVERY 4 HOURS PRN, Cough, | | PM PDT | | | | | Starting 04/27/17 at 1116 | | | | | | + +-------+ +--------+---+---+ +-------+ +--------+---+---+ | Given | 04/29/19 | 200 mg | | | | | 18 12:27 | | | | | | PM PDT | | | | +-------+ +--------+---+---+ | Given | 04/29/19 | 200 mg | | | | | 18 7:39 | | | | | | AM PDT | | | | +-------+ +--------+---+---+ +---+---+ | | | +---+---+ + +-------+ +--------+---+---+ | HYDROmorphone (DILAUDID) | Given | 04/29/19 | 0.5 mg | | | | injection 0.25-1 mg 0.25-1 mg, | | 18 3:54 | | | | | Intravenous, EVERY 2 HOURS PRN, | | PM PDT | | | | | Pain, Starting 04/26/17 at | | | | | | | 1114, Use IV morphine first if | | | | | | | ordered. Slow IV push, not faster | | | | | | | than 0.25 mg/minute. If | | | | | | | ineffective or not tolerated and | | | | | | | unable to take oral opioid - | | | | | | | contact MD., | | | | | | + +-------+ +--------+---+---+ +-------+ +--------+---+---+ | Given | 04/29/19 | 0.5 mg | | | | | 18 12:27 | | | | | | PM PDT | | | | +-------+ +--------+---+---+ | Given | 04/29/19 | 0.5 mg | | | | | 18 7:38 | | | | | | AM PDT | | | | +-------+ +--------+---+---+ +---+---+ | | | +---+---+ + +-------+ +---------+---+ + | insulin lispro (humaLOG | Given | 04/29/19 | 2 Units | | Arm-Righ | | KWIKPEN) 100 units/mL injection | | 18 12:23 | | | t Upper | | (pen) 0-6 Units 0-6 Units, | | PM PDT | | | | | Subcutaneous, 4 TIMES DAILY WITH | | | | | | | MEALS & NIGHTLY, First dose on | | | | | | | 04/26/17 at 1205, CORRECTION | | | | | | | SCALE: Blood Glucose (BG) < | | | | | | | 150: None BG | | | | | | | 150-200: DAY: 1 units. NIGHT: 0 | | | | | | | units BG 201-250: DAY: 2 units. | | | | | | | NIGHT: 1 units BG 251-300: | | | | | | | DAY: 3 units. NIGHT: 2 units | | | | | | | BG 301-350: DAY: 4 units. NIGHT: | | | | | | | 3 units BG 351-400: DAY: 5 | | | | | | | units. NIGHT: 4 units BG > | | | | | | | 400 : DAY: 6 units. NIGHT: 5 | | | | | | | units | | | | | | | AND CALL PROVIDER Use DAY DOSE | | | | | | | for doses scheduled: AC, | | | | | | | NPO, Daytime [phone] Use NIGHT | | | | | | | DOSE for doses scheduled: | | | | | | | HS, 3AM, Nighttime [id number], | | | | | | + +-------+ +---------+---+ + +-------+ +---------+---+ + | Given | 04/29/19 | 2 Units | | Arm-Righ | | | 18 8:06 | | | t Upper | | | AM PDT | | | | +-------+ +---------+---+ + | Given | 04/28/19 | 1 Units | | Arm-Left | | | 18 8:31 | | | Upper | | | PM PDT | | | | +-------+ +---------+---+ + +---+---+ | | | +---+---+ + +-------+ +--------+---+---+ | iohexol (OMNIPAQUE 350) 350 | Given | 04/29/19 | 65 mLs | | | | mg/mL injection ONCE PRN, | | 18 11:01 | | | | | Starting 04/28/17 at 1101, | | AM PDT | | | | | Intra-op | | | | | | + +-------+ +--------+---+---+ + +---+ | | | + +---+ | ipratropium (ATROVENT) 500 | | | mcg/2.5 mL nebulizer solution 500 | | | mcg 500 mcg, Nebulization, RT | | | EVERY 6 HOURS PRN, Wheezing, | | | Shortness of Breath, Starting Wed | | | 04/28/17 at 0802, RT will | | | administer., | | + +---+ | | | + +---+ + +-------+ +--------+---+---+ | lactulose liquid 30 mL 30 mL, | Given | 04/29/19 | 30 mLs | | | | Oral, 3 TIMES DAILY, First dose | | 18 8:06 | | | | | on Wed04/26/17 at 1400, Goal is | | AM PDT | | | | | 3-4 BMs daily, hold if > 4 BMs/24 | | | | | | | hrs, | | | | | | + +-------+ +--------+---+---+ +-------+ +--------+---+---+ | Given | 04/27/19 | 30 mLs | | | | | 18 8:50 | | | | | | PM PDT | | | | +-------+ +--------+---+---+ | Given | 04/27/19 | 30 mLs | | | | | 18 3:06 | | | | | | PM PDT | | | | +-------+ +--------+---+---+ +---+---+ | | | +---+---+ + +---------+ +--------+-------+---+ | levoFLOXacin in dextrose | New Bag | 04/29/19 | 750 mg | 100 | | | (LEVAQUIN) IVPB 750 mg 750 mg, | | 18 8:06 | | mL/hr | | | Intravenous, Administer over 90 | | AM PDT | | | | | Minutes, DAILY, First dose on Wed | | | | | | | 04/27/17 at 0900, Please get MAR | | | | | | | from [facility] as he may have | | | | | | | had levaquin today there, | | | | | | | Indications: Biliary Tract | | | | | | | Infection | | | | | | + +---------+ +--------+-------+---+ +---------+ +--------+-------+---+ | New Bag | 04/28/19 | 750 mg | 100 | | | | 18 8:26 | | mL/hr | | | | AM PDT | | | | +---------+ +--------+-------+---+ +---+---+ | | | +---+---+ + +-------+ +------+---+ + | lidocaine 1% injection ONCE | Given | 04/29/19 | 1 mL | | Surgical | | PRN, Starting 04/28/17 at | | 18 10:49 | | | Site | | 1049, Intra-op | | AM PDT | | | | + +-------+ +------+---+ + +---+---+ | | | +---+---+ + +-------+ +------+---+---+ | metoprolol tartrate (LOPRESSOR) | Given | 04/28/19 | 5 mg | | | | injection 5 mg 5 mg, | | 18 3:45 | | | | | Intravenous, EVERY 5 MIN PRN, | | AM PDT | | | | | Pulse > 100, Starting 04/27/17 | | | | | | | at 0106 | | | | | | + +-------+ +------+---+---+ +-------+ +------+---+---+ | Given | 04/28/19 | 5 mg | | | | | 18 3:40 | | | | | | AM PDT | | | | +-------+ +------+---+---+ | Given | 04/28/19 | 5 mg | | | | | 18 3:30 | | | | | | AM PDT | | | | +-------+ +------+---+---+ +---+---+ | | | +---+---+ + +-------+ +-------+---+---+ | metoprolol tartrate (LOPRESSOR) | Given | 04/29/19 | 25 mg | | | | tablet 25 mg 25 mg, Oral, 2 | | 18 8:06 | | | | | TIMES DAILY, First dose on Wed | | AM PDT | | | | | 04/27/17 at 0900 | | | | | | + +-------+ +-------+---+---+ +-------+ +-------+---+---+ | Given | 04/28/19 | 25 mg | | | | | 18 8:05 | | | | | | PM PDT | | | | +-------+ +-------+---+---+ | Given | 04/28/19 | 25 mg | | | | | 18 8:25 | | | | | | AM PDT | | | | +-------+ +-------+---+---+ +---+---+ | | | +---+---+ + +---------+ +--------+-------+---+ | metroNIDAZOLE in saline | New Bag | 04/29/19 | 500 mg | 100 | | | (FLAGYL) IVPB 500 mg 500 mg, | | 18 4:19 | | mL/hr | | | Intravenous, Administer over 1 | | PM PDT | | | | | Hours, EVERY 8 HOURS (3 times per | | | | | | | day), First dose on Wed04/27/17 | | | | | | | at 1430, Do not refrigerate., | | | | | | | Indications: Biliary Tract | | | | | | | Infection | | | | | | + +---------+ +--------+-------+---+ +---------+ +--------+-------+---+ | New Bag | 04/29/19 | 500 mg | 100 | | | | 18 6:42 | | mL/hr | | | | AM PDT | | | | +---------+ +--------+-------+---+ | New Bag | 04/28/19 | 500 mg | 100 | | | | 18 9:36 | | mL/hr | | | | PM PDT | | | | +---------+ +--------+-------+---+ +---+---+ | | | +---+---+ + +-------+ +--------+---+---+ | midazolam (VERSED) 1 mg/mL | Given | 04/29/19 | 0.5 mg | | | | injection ONCE PRN, Starting Wed | | 18 10:47 | | | | | 04/28/17 at 1047, Intra-op | | AM PDT | | | | + +-------+ +--------+---+---+ +---+---+ | | | +---+---+ + +-------+ +---+---+---+ | nitroglycerin in dextrose 200 | Given | 04/29/19 | | | | | mcg, verapamil 2 mg in heparin | | 18 10:50 | | | | | 2,000 Units CVL mixture ONCE | | AM PDT | | | | | PRN, Starting 3/14/18 at | | | | | | | 1050, Intra-op | | | | | | + +-------+ +---+---+---+ + +---+ | | | + +---+ | ondansetron (ZOFRAN) injection | | | 4 mg 4 mg, Intravenous, EVERY 6 | | | HOURS PRN, Nausea, Vomiting, | | | Starting Wed04/26/17 at 1115 | | + +---+ | | | + +---+ + +-------+ +-------+---+---+ | pantoprazole (PROTONIX) | Given | 04/29/19 | 40 mg | | | | injection 40 mg 40 mg, | | 18 9:08 | | | | | Intravenous, 2 TIMES DAILY, First | | AM PDT | | | | | dose on Wed04/26/17 at 1120 | | | | | | + +-------+ +-------+---+---+ +-------+ +-------+---+---+ | Given | 04/28/19 | 40 mg | | | | | 18 8:06 | | | | | | PM PDT | | | | +-------+ +-------+---+---+ | Given | 04/28/19 | 40 mg | | | | | 18 8:26 | | | | | | AM PDT | | | | +-------+ +-------+---+---+ + +---+ | | | + +---+ | pharmacy consult - other | | | medications/reasons PHARMACY | | | CONSULT, Starting 04/28/17 at | | | 1548, Pharmacy to dose which | | | medication? Please give one dose | | | of Cefepime stat as going to | | | [facility] | | + +---+ | | | + +---+ + +-------+ +--------+---+---+ | rifAXIMin (KAMRANFAXAN) tablet 550 | Given | 04/29/19 | 550 mg | | | | mg 550 mg, Oral, 2 TIMES DAILY, | | 18 8:06 | | | | | First dose on Wed04/26/17 at | | AM PDT | | | | | 1120, Indications: Hepatic | | | | | | | Encephalopathy | | | | | | + +-------+ +--------+---+---+ +-------+ +--------+---+---+ | Given | 04/28/19 | 550 mg | | | | | 18 8:05 | | | | | | PM PDT | | | | +-------+ +--------+---+---+ | Given | 04/28/19 | 550 mg | | | | | 18 8:25 | | | | | | AM PDT | | | | +-------+ +--------+---+---+ +---+---+ | | | +---+---+ + +-------+ +-------+---+---+ | rosuvastatin (CRESTOR) tablet | Given | 04/28/19 | 10 mg | | | | 10 mg 10 mg, Oral, NIGHTLY, | | 18 8:05 | | | | | First dose on Wed04/26/17 at 2100 | | PM PDT | | | | + +-------+ +-------+---+---+ +-------+ +-------+---+---+ | Given | 04/27/19 | 10 mg | | | | | 18 8:50 | | | | | | PM PDT | | | | +-------+ +-------+---+---+ +---+---+ | | | +---+---+ documented in this encounter
--- OUTSIDE RECORDS SUMMARY | ~2019-01-07 | XMS | Encounter Summary ---
Demographics + + + | Address | [address] | | | [place] [address] | + + + | Home Phone | | + + + | Preferred Language | Unknown | + + + | Marital Status | Single | + + + | Denominational Affiliation | Unknown | + + + | Race | Unknown | + + + | Ethnic Group | Unknown | + + + Author + + + | Author | [facility] | | | and [place] | + + + | Organization | [facility] | | | [...] Team Providers + +------+ + | Care Mail Service Coordinator Name | Role | Phone | + +------+ + | Shakir Monzon DO | PCP | | + +------+ + Reason for Visit +--------+ + | Reason | Comments | +--------+ + | Other | Patient update. | +--------+ + Encounter Details +--------+ + + + + | Date | Type | Department | Care Team | Description | +--------+ + + + + | 11/24/ | Telephone | [facility] | Kady Cortez | Other (Patient | | 2019 | | CARDIOLOGY KAVYA [place], Enterprise Sales Person | update. ) | | | | [address] | | | | | | [address] [place] | | | | | | [address] | | | | | | [phone] | | | +--------+ + + + [...] [place] | | | | | | [address] | | | | | | | | +--------+---------+ + + + documented as of this encounter Visit Diagnoses Not on filedocumented in this encounter"
--- OUTSIDE RECORDS SUMMARY | ~2019-01-07 | XMS | Encounter Summary ---
Demographics + + + | Address | [address] | | | [place] [address] | + + + | Home Phone | | + + + | Preferred Language | Unknown | + + + | Marital Status | Single | + + + | Confucianism Affiliation | NRP | + + + | Race | or | + + + | Ethnic Group | Not or | + + + Author + + + | Author | [facility] [employer] [facility] | + + + | Organization | [facility] [employer] [facility] | + + + | Address | Unknown | + + + | Phone | Unavailable | + + + Support + + +---------+ + | Name | Relationship | Address | Phone | + + +---------+ + | Mary Medellin | ECON | Unknown | | + + +---------+ + Care Team Providers + +------+ + | Care Lockstitch Coat Joiner Name | Role | Phone | + +------+ + | Shakir Monzon MD | PCP | | + +------+ + Encounter Details +--------+ + + + + | Date | Type | Department | Care Team | Description | +--------+ + + + + | 09/10/ | Procedure | Diagnostic Imaging | | | | 2018 | Pass | Services at [facility] | | | | | | [address] | | | | | | [place] Mailcode: | | | | | | [address] | | | | | | [facility] | | | | | | [place], [place] | | | | | | [address] | | | | | | [phone] | | | +--------+ + + + [...]
--- OUTSIDE RECORDS SUMMARY | ~2019-01-07 | XMS | Encounter Summary ---
Demographics + + + | Address | [address] | | | [place] [address] | + + + | Home Phone | | + + + | Preferred Language | Unknown | + + + | Marital Status | Single | + + + | Presybeterian Affiliation | NRP | + + + | Race | or | + + + | Ethnic Group | Not or | + + + Author + + + | Author | [facility] [employer] [facility] | + + + | Organization | [facility] [employer] [facility] | + + + | Address | Unknown | + + + | Phone | Unavailable | + + + Support + + +---------+ + | Name | Relationship | Address | Phone | + + +---------+ + | Mary Medellin | ECON | Unknown | | + + +---------+ + Care Team Providers + +------+ + | Care Farm Machinery Assembler Name | Role | Phone | + +------+ + | Shakir Monzon MD | PCP | | + +------+ + Reason for Visit + + + | Reason | Comments | + + + | Blood Test Results | | + + + Encounter Details +--------+ + + + + | Date | Type | Department | Care Team | Description | +--------+ + + + + | 02/01/ | Abstract | Digestive Health | Bessy Solano, | Blood Test Results | | 2017 | | [place] [address] | PA-C [address] | | | | | [address] | [address] | | | | | Mailcode: OC8D | [place], [place] | | | | | [facility] | [address] | | | | | and Healing, | [phone] | | | | | [address] | | | | | | [place], [place] | | | | | | [address] | | | | | | [phone] | | | +--------+ + + + [...]
--- OUTSIDE RECORDS SUMMARY | ~2019-01-07 | XMS | Encounter Summary ---
Demographics + + + | Address | [address] | | | [place] [address] | + + + | Home Phone [...] Author + + + | Author | [facility] | + + + | Organization | [facility] [employer] [facility] | + + + | Address | Unknown | + + + | Phone | Unavailable | + + + Support + + +---------+ + | Name | Relationship | Address | Phone | + + +---------+ + | Mary Medellin | ECON | Unknown | | + + +---------+ + Care Team Providers + +------+ + | Care Bilingual Sales Representative Name | Role | Phone | + +------+ + | Shakir Monzon MD | PCP | | + +------+ + Encounter Details +--------+ + + + + | Date | Type | Department | Care Team | Description | +--------+ + + + + | 10/05/ | Abstract | [facility]ive [facility] | Clinic, Hepatology | | | 2016 | | [place] [address] [address] | | | | | | [address] | | | | | | Mailcode: OC8D | | | | | | [place] [facility] | | | | | | and Healing, | | | | | | [address] | | | | | | [place], [place] | | | | | | [address] | | | | | | [phone] | | | +--------+ + + + [...]
--- OUTSIDE RECORDS SUMMARY | ~2019-01-07 | XMS | Encounter Summary ---
Demographics + + + | Address | [address] | | | [place] [address] | + + + | Home Phone [...] Author + + + | Author | [facility] | + + + | Organization | [facility] [employer] [facility] | + + + | Address | Unknown | + + + | Phone | Unavailable | + + + Support + + +---------+ + | Name | Relationship | Address | Phone | + + +---------+ + | Mary Medellin | ECON | Unknown | | + + +---------+ + Care Team Providers + +------+ + | Care Client Care Specialist Name | Role | Phone | + +------+ + | Shakir Monzon MD | PCP | | + +------+ + Encounter Details +--------+ + + + + | Date | Type | Department | Care Team | Description | +--------+ + + + + | 05/14/ | Abstract | Cardiology General | Unknown . | | | 2018 | | at [facility] [address] | | | | | | [place] Mailcode: | | | | | | [address] | | | | | | Health and Healing, | | | | | | Building | | | | | | floor [place], [place] | | | | | | [address] | | | | | | [phone] | | | +--------+ + + + [...]
--- OUTSIDE RECORDS SUMMARY | ~2019-01-07 | XMS | Encounter Summary ---
Demographics + + + | Address | [address] | | | [place] [address] | + + + | Home Phone | | + + + | Preferred Language | Unknown | + + + | Marital Status | Single | + + + | Islam Affiliation | NRP | + + + | Race | or | + + + | Ethnic Group | Not or | + + + Author + + + | Author | [facility] | + + + | Organization | [facility] [employer] [facility] | + + + | Address | Unknown | + + + | Phone | Unavailable | + + + Support + + +---------+ + | Name | Relationship | Address | Phone | + + +---------+ + | Mary Medellin | ECON | Unknown | | + + +---------+ + Care Team Providers + +------+ + | Care Global Cto Name | Role | Phone | + +------+ + | Shakir Monzon MD | PCP | | + +------+ + Encounter Details +--------+ + + + + | Date | Type | Department | Care Team | Description | +--------+ + + + + | 02/16/ | Anesthesia | Preoperative | Mahin Middleton, | | | 2019 | Event | Medicine Clinic at | [place] [address] | | | | | [address] Floor Day | [address] | | | | | Stay [address] [facility] | [place], [place] | | | | | [address] | [address] | | | | | Mailcode: [id number] | | | | | | Vivian [place] | | | | | | [address] [place], [place] | | | | | | [address] | | | | | | [phone] | | | +--------+ + + + + Anesthesia Record + + + + + | Procedure Name | Responsible | Anesthesia Start | Anesthesia Stop Time | | | Anesthesiologist | Time | | + + + + + | [facility] evaluation | | | | + + + + + + + | No events on file. | + + +------+ | Meds | +------+ + + + No medications | on file. | + + + + + | No agents on file. | + + + + | No blood administrations on file. | + + + + | No LDAs on file. | + + documented in this encounter Social [...]
--- OUTSIDE RECORDS SUMMARY | ~2019-01-07 | XMS | Encounter Summary ---
Demographics + + + | Address | [address] | | | [place] [address] | + + + | Home Phone | | + + + | Preferred Language | Unknown | + + + | Marital Status | Single | + + + | Scientology Affiliation | Unknown | + + + [...] Team Providers + +------+ + | Care Information Systems Supervisor Name | Role | Phone | + +------+ + | Mookie Castro PA-C | PCP | | + +------+ + Reason for Visit + + + | Reason | Comments | + + + | Hepatitis | HCV | + + + Evaluate & Treat (Routine) +--------+--------+ + + + + | Status | Reason | Specialty | Diagnoses / | Referred By | Referred To | | | | | Procedures | Contact | Contact | +--------+--------+ + + + + | Closed | | Gastroenterol | Diagnoses | Matthew, | [facility] | | | | [facility]gy | Hep C | Mookie L, | Gastroenterol | | | | | | PA-C [address] | [address] | | | | | [address] | [address] | | | | | | [address] | [address] [place] | | | | | | [place], | [place], [place] | | | | | | [place] [address] | [address] | | | | | | Phone: | Phone: | | | | | | [phone] | [phone] | | | | | | Fax: | Fax: | | | | | | [phone] | [phone] | +--------+--------+ + + + + Encounter Details +--------+---------+ + + + | Date | Type | Department | Care Team | Description | +--------+---------+ + + + | 07/09/ | Office | [facility] [place] | [facility], | Chronic hepatitis C | | 2016 | Visit | GASTROENTEROLOGY | [place] [address] | without hepatic coma | | | | [address] | [place] [place] [address] | (HCC) (Primary Dx); | | | | [address] [place], [place] | [place], [place] | Elevated AFP; | | | | [address] | [address] | Alcohol abuse; | | | | [phone] | | Marijuana abuse; | | | | | | Elevated | | | | | | triglycerides with | | | | | | high cholesterol; | | | | | | Thrombocytopenia | | | | | | (HCC); Insulin | | | | | | dependent type 2 | | | | | | diabetes mellitus, | | | | | | uncontrolled (HCC) | +--------+---------+ + + + Social [...] + + + | Blood Pressure | 116/70 | 07/10/2015 11:18 AM | | | | | PDT | | + + + + + | Pulse | 76 | 07/10/2015 11:18 AM | | | | | PDT | | + + + + + | Temperature | 36.8 C (98.3 F) | 07/10/2015 11:18 AM | | | | | PDT | | + + + + + | Respiratory Rate | 16 | 07/10/2015 11:18 AM | | | | | PDT | | + + + + + | Oxygen Saturation | 95% | 07/10/2015 11:18 AM | | | | | PDT | | + + + + + | Inhaled Oxygen | - | - | | | Concentration | | | | + + + + + | Weight | 95.7 kg (211 lb) | 07/10/2015 11:18 AM | | | | | PDT | | + + + + + | Height | 179.1 cm (5' 10.5") | 07/10/2015 11:18 AM | | | | | PDT | | + + + + + | Body Mass Index | 29.85 | 07/10/2015 11:18 AM | | | | | PDT | | + + + + + documented in this encounter Progress Notes Lucila Boston, ACADEMY EDUCATION DIRECTOR - 07/10/2015 11:56 AM PDTFormatting of this note might be differe nt from the original. Bret Espinal Jr. is a 59 y.o. male referred by Mookie Castro PA-C for evaluation and tr eatment of HCV. History of present illness: Patient was initially diagnosed with HCV about ago. Likely cause of infection of HCV is IV or intranasal drug use, home tattoos, or incarceration. Has never been treated for HCV in the past. Has never had liver biopsy in the past. Last drank alcohol: 4 days ago. Can drink about 12-24 ounces of beer once per week. Last smoked marijuana: regularly. Last used illegal drugs: over 20 years ago. Denies ascites, jaundice, hematemesis, peripheral edema, sleep changes, or confusion. CBC from 11/2014 indicate that there is evidence of thrombocytopenia. Labs shows a platele t count of 70,000. No Known Allergies Past Medical History Diagnosis Date Type 2 diabetes mellitus (HCC) Hyperlipidemia Tobacco use disorder GERD (gastroesophageal reflux disease) Thrombocytopenia (HCC) Vitamin D deficiency Positive H. pylori test Localized, secondary osteoarthritis of the shoulder region Internal hemorrhoids without complication Lichen planus Dermatitis History reviewed. No pertinent past surgical history. Family History Problem Relation Age of Onset Alcohol abuse Diabetes Lymphoma Thyroid cancer Diabetes Mother Cancer Father History Social History Marital Status: Single Spouse [...] any fevers, chills, or unintentional weight loss. Eyes:Denies using glaucoma eye drops. Denies dry, burning, painful eyes Respiratory:Denies shortness of breath, cough or wheezing. Gastrointestinal: Complains of hemorrhoids and heartburn. Denies constipation, diarrhea, b loody or black stools, hematemesis, nausea or vomiting, abdominal pain, or dysphagia. Skin: Denies rashes Neurological:Denies memory difficulties, numbness or tingling, muscle weakness, paralysis o f arms or legs, epilepsy or seizure, or frequent bothersome and headaches ENT:Denies hearing loss, hearing aids, hearing ringing or buzzing in ears, constantly runny nose, nasal obstruction, hayfever, dentures, or hoarseness. Cardiovascular:Denies chest pain, palpitations, or swelling to legs :Complains of frequent nocturnal urination. Denies painful urination, urine incontinence, waking up on average more than once per night to urinate, bloody urine, or impotence. Musculoskeletal:Denies swollen joints, painful back, or painful joints. Psychiatric:Denies depression and anxiety Endocrine:Denies enlarged thyroid Heme/lymph:Denies anemia or enlarged lymph glands. Physical exam: General: well developed, well nourished, in no acute distress, no muscle wasting noted Head: normocephalic and atraumatic Eyes: Sclera clear [...] no focal deficits, cranial nerves II-XII grossly intact, negative for asterixis Skin: intact without lesions or rashes. Negative for spider angioma, hypopigmentation noted to both hands. Patient has a known history of vitiligo. Psych: alert and cooperative; normal mood and affect; normal attention span and concentration, Abstract on 07/09/2015 Component Date Value Ref Range Status AFP Tumor Marker 04/15/2015 17.1* 0.0 - 7.0 ng/mL Final ANION GAP 02/26/2015 12 Final BUN/Creatinine Ratio 02/26/2015 14 Final Globulin 02/26/2015 3.8* 1.8 - 3.5 Final Albumin/Globulin Ratio 02/26/2015 0.8* 1.1 - 2.4 Final VLDL 02/26/2015 45* 4 - 40 mg/dL Final Chol/HDL Ratio 02/26/2015 7.4* 5.0 Final Non-HDL Cholesterol 02/26/2015 229* 130 Final HCV Ab 02/26/2015 Positive Final Signal/Cutoff 02/26/2015 25.1 Final HCV Quantitative Log 02/26/2015 6.33 Final HCV Quantitative 02/26/2015 [id number] Final HCV Genotype 02/26/2015 1a Final Creatinine, External 02/26/2015 0.86 0.7 - 1.33 Final eGFR, External 02/26/2015 >60 60 - [id number] Final LDL Cholesterol, External 02/26/2015 184* 100 Final Cholesterol, Total, External 02/26/2015 265* 200 mg/dl Final HDL Cholesterol, External 02/26/2015 36* 40 mg/dl Final Triglycerides, External 02/26/2015 223* 30 - 150 Final TSH, External 02/26/2015 2.87 0.27 - 4.2 Final 3rd Generation Vitamin D, 25-Hydroxy, External 02/26/2015 26* 30 - 100 Final Sodium, External 02/26/2015 135 132 - 143 Final Potassium, External 02/26/2015 4.0 3.6 - 5.1 Final Chloride, External 02/26/2015 108 95 - 112 Final Carbon Dioxide, External 02/26/2015 19 19 - 31 Final Calcium, External 02/26/2015 8.7 8.4 - 10.2 Final Protein, Total, External 02/26/2015 6.8 6 - 8 Final Albumin, External 02/26/2015 3.0* 3.5 - 5 Final Bilirubin, Total, External 02/26/2015 1.1 0 - 1.2 Final ALP, External 02/26/2015 122 30 - 128 Final AST, External 02/26/2015 152* 13 - 39 Final ALT, External 02/26/2015 157* 7 - 52 Final Glucose, External 02/26/2015 301* 70 - 100 Final BUN, External 02/26/2015 12 6 - 23 Final Free Thyroxine Index, External 02/26/2015 1.03 0.71 - 1.7 Final Abdominal ultrasound to: Impression: Cholelithiasis. Although the wall is slightly thickened and the duct is slightly dilated t here are no other features of cholecystitis. Otherwise, unremarkable abdomen ultrasound. Assessment: 1. Chronic hepatitis C without hepatic coma (HCC) Alpha Fetoprotein, Tumor Marker [id number]-3-Nbtkynetnaw, Total CHRISTIAN Screen, Qual CBC with Differential Comprehensive Metabolic Panel Ferritin Iron and Transferrin Protime INR Mitochrondrial Ab Smooth Muscle Ab Ceruloplasmin Misc Lab Referral US Abdomen Limited genotype 1a. 2. Elevated AFP Alpha Fetoprotein, Tumor Marker Xebia-0-Eddxinftdhc, Total CHRISTIAN Screen, Qual CBC with Differential Comprehensive Metabolic Panel Ferritin Iron and Transferrin Protime INR Mitochrondrial Ab Smooth Muscle Ab Ceruloplasmin Misc Lab Referral US Abdomen Limited 3. Alcohol abuse Alpha Fetoprotein, Tumor Marker Tzpfk-0-Hcdbamcgwwp, Total CHRISTIAN Screen, Qual CBC with Differential Comprehensive Metabolic Panel Ferritin Iron and Transferrin Protime INR Mitochrondrial Ab Smooth Muscle Ab Ceruloplasmin Misc Lab Referral US Abdomen Limited 4. Marijuana abuse Alpha Fetoprotein, Tumor Marker Xkvjl-8-Dknsrgzintv, Total CHRISTIAN Screen, Qual CBC with Differential Comprehensive Metabolic Panel Ferritin Iron and Transferrin Protime INR Mitochrondrial Ab Smooth Muscle Ab Ceruloplasmin Misc Lab Referral US Abdomen Limited 5. Elevated triglycerides with high cholesterol Alpha Fetoprotein, Tumor Marker Wctch-0-Ortoyaenjlq, Total CHRISTIAN Screen, Qual CBC with Differential Comprehensive Metabolic Panel Ferritin Iron and Transferrin Protime INR Mitochrondrial Ab Smooth Muscle Ab Ceruloplasmin Misc Lab Referral US Abdomen Limited 6. Thrombocytopenia (HCC) Alpha Fetoprotein, Tumor Marker Clbea-7-Rbhheajyphd, Total CHRISTIAN Screen, Qual CBC with Differential Comprehensive Metabolic Panel Ferritin Iron and Transferrin Protime INR Mitochrondrial Ab Smooth Muscle Ab Ceruloplasmin Misc Lab Referral US Abdomen Limited 7. Insulin dependent type 2 diabetes mellitus, uncontrolled (HCC) Alpha Fetoprotein, Tumor Marker Iywrg-6-Noagrbjwqnu, Total CHRISTIAN Screen, Qual CBC with Differential Comprehensive Metabolic Panel Ferritin Iron and Transferrin Protime INR Mitochrondrial Ab Smooth Muscle [facility] Limited Plan: Liver fibrosis: A liver biopsy has never been done. Will order laboratory test to determin e current fibrosis score. This in combination with APRI will help determine a fibrosis scor e to determine if patient would be an appropriate candidate for hepatitis C treatment. Ordered labs to determine if additional liver pathology present. NCCN guidelines indicate that an elevated alpha-fetoprotein in the absence of a liver mass requires follow-up alpha-fetoprotein and ultrasound in 3 months. He is currently due. Vaccination: If it has not been done, recommend patient is vaccinated for both Hepatitis A and Hepatitis B. Transmission: Discussed following infection control guidelines. Inform tattoo parlors and [facility] providers of HCV infection. Avoid sharing personal items that might have blood on them, such as razors, toothbrushes, and nail clippers.Despite low risk of transmission throu gh routine sexual contact, recommend safe sex practices, especially if multiple sexual partn ers. Substance use/abuse: Patient was educated on the importance of avoiding all alcohol and mar ijuana. Cannot treat HCV unless patient has been sober from alcohol, marijuana, and all othe r illegal drugs. Highly encouraged cessation from all alcohol and marijuana. Contraindications to HCV treatment: Absolute contraindications to HCV treatment include: 1. Short life expectancy.severe co morbidities (less than 10 years). 2. Known advanced cirrhosis with clinical decompensation (e.g. Ascites, encephalopathy, va riceal bleeding or SBP) 3. or inability to reliably use control. 4. Severe cardiac disease. Also discussed with patient that his uncontrolled type II diabetes can also be worsening hi s liver. This in combination with his elevated triglycerides put him at very high risk for alcoholic steatohepatitis. Due to previous labs showing thrombocytopenia and current CMP shows an albumen of 3.0, susp ect patient has cirrhosis of the liver. Laboratory tests ordered will help confirm diagnosi s. Will follow up with results. Patient is to call with any question or concerns. Any fevers, chills, chest pain, SOB or other serious symptoms patient is to call the office or go to ER . Cc: Mookie Castro PA-C This note was dictated using voice recognition software. Please contact me if there are an y questions regarding its content. documented in this encounter Plan of Treatment +--------+---------+ + + + | Date | Type | Specialty | Care Team | Description | +--------+---------+ + + + | 04/06/ | Office | Cardiology | Lakisha Kahn DO | | | 2020 | Visit | | [address] | | | | | | [place] [facility] [place] | | | | | | [id number] | | | | | | | | +--------+---------+ + + + + +---------+--------+ + + | Name | Type | Priori | Associated Diagnoses | Order Schedule | | | | ty | | | + +---------+--------+ + + | Alpha Fetoprotein, | Lab | Routin | Chronic hepatitis | 1 Occurrences | | Tumor Marker | | e | C without hepatic | starting 07/10/2015 | | | | | coma (HCC) Elevated | until 11/07/2015 | | | | | AFP Alcohol abuse | | | | | | Marijuana abuse | | | | | | Elevated | | | | | | triglycerides with | | | | | | high cholesterol | | | | | | Thrombocytopenia | | | | | | (HCC) Insulin | | | | | | dependent type 2 | | | | | | diabetes mellitus, | | | | | | uncontrolled (HCC) | | + +---------+--------+ + + | Mupwk-9-Sysgtbxjbyl, | Lab | Routin | Chronic hepatitis | 1 Occurrences | | Total | | e | C without hepatic | starting 07/10/2015 | | | | | coma (HCC) Elevated | until 11/07/2015 | | | | | AFP Alcohol abuse | | | | | | Marijuana abuse | | | | | | Elevated | | | | | | triglycerides with | | | | | | high cholesterol | | | | | | Thrombocytopenia | | | | | | (HCC) Insulin | | | | | | dependent type 2 | | | | | | diabetes mellitus, | | | | | | uncontrolled (HCC) | | + +---------+--------+ + + | CHRISTINA Screen, Qual | Lab | Routin | Chronic hepatitis | Expected: | | | | e | C without hepatic | 07/10/2015, Expires: | | | | | coma (HCC) Elevated | 10/08/2015 | | | | | AFP Alcohol abuse | | | | | | Marijuana abuse | | | | | | Elevated | | | | | | triglycerides with | | | | | | high cholesterol | | | | | | Thrombocytopenia | | | | | | (HCC) Insulin | | | | | | dependent type 2 | | | | | | diabetes mellitus, | | | | | | uncontrolled (HCC) | | + +---------+--------+ + + | CBC with | Lab | Routin | Chronic hepatitis | 1 Occurrences | | Differential | | e | C without hepatic | starting 07/10/2015 | | | | | coma (HCC) Elevated | until 11/07/2015 | | | | | AFP Alcohol abuse | | | | | | Marijuana abuse | | | | | | Elevated | | | | | | triglycerides with | | | | | | high cholesterol | | | | | | Thrombocytopenia | | | | | | (HCC) Insulin | | | | | | dependent type 2 | | | | | | diabetes mellitus, | | | | | | uncontrolled (HCC) | | + +---------+--------+ + + | Comprehensive | Lab | Routin | Chronic hepatitis | 1 Occurrences | | Metabolic Panel | | e | C without hepatic | starting 07/10/2015 | | | | | coma (HCC) Elevated | until 11/07/2015 | | | | | AFP Alcohol abuse | | | | | | Marijuana abuse | | | | | | Elevated | | | | | | triglycerides with | | | | | | high cholesterol | | | | | | Thrombocytopenia | | | | | | (HCC) Insulin | | | | | | dependent type 2 | | | | | | diabetes mellitus, | | | | | | uncontrolled (HCC) | | + +---------+--------+ + + | Ferritin | Lab | Routin | Chronic hepatitis | 1 Occurrences | | | | e | C without hepatic | starting 07/10/2015 | | | | | coma (HCC) Elevated | until 11/07/2015 | | | | | AFP Alcohol abuse | | | | | | Marijuana abuse | | | | | | Elevated | | | | | | triglycerides with | | | | | | high cholesterol | | | | | | Thrombocytopenia | | | | | | (HCC) Insulin | | | | | | dependent type 2 | | | | | | diabetes mellitus, | | | | | | uncontrolled (HCC) | | + +---------+--------+ + + | Iron and Transferrin | Lab | Routin | Chronic hepatitis | 1 Occurrences | | | | e | C without hepatic | starting 07/10/2015 | | | | | coma (HCC) Elevated | until 11/07/2015 | | | | | AFP Alcohol abuse | | | | | | Marijuana abuse | | | | | | Elevated | | | | | | triglycerides with | | | | | | high cholesterol | | | | | | Thrombocytopenia | | | | | | (HCC) Insulin | | | | | | dependent type 2 | | | | | | diabetes mellitus, | | | | | | uncontrolled (HCC) | | + +---------+--------+ + + | Protime INR | Lab | Routin | Chronic hepatitis | 1 Occurrences | | | | e | C without hepatic | starting 07/10/2015 | | | | | coma (HCC) Elevated | until 11/07/2015 | | | | | AFP Alcohol abuse | | | | | | Marijuana abuse | | | | | | Elevated | | | | | | triglycerides with | | | | | | high cholesterol | | | | | | Thrombocytopenia | | | | | | (HCC) Insulin | | | | | | dependent type 2 | | | | | | diabetes mellitus, | | | | | | uncontrolled (HCC) | | + +---------+--------+ + + | Mitochrondrial Ab | Lab | Routin | Chronic hepatitis | 1 Occurrences | | | | e | C without hepatic | starting 07/10/2015 | | | | | coma (HCC) Elevated | until 07/10/2016 | | | | | AFP Alcohol abuse | | | | | | Marijuana abuse | | | | | | Elevated | | | | | | triglycerides with | | | | | | high cholesterol | | | | | | Thrombocytopenia | | | | | | (HCC) Insulin | | | | | | dependent type 2 | | | | | | diabetes mellitus, | | | | | | uncontrolled (HCC) | | + +---------+--------+ + + | Smooth Muscle Ab | Lab | Routin | Chronic hepatitis | 1 Occurrences | | | | e | C without hepatic | starting 07/10/2015 | | | | | coma (HCC) Elevated | until 11/07/2015 | | | | | AFP Alcohol abuse | | | | | | Marijuana abuse | | | | | | Elevated | | | | | | triglycerides with | | | | | | high cholesterol | | | | | | Thrombocytopenia | | | | | | (HCC) Insulin | | | | | | dependent type 2 | | | | | | diabetes mellitus, | | | | | | uncontrolled (HCC) | | + +---------+--------+ + + | Ceruloplasmin | Lab | Routin | Chronic hepatitis | 1 Occurrences | | | | e | C without hepatic | starting 07/10/2015 | | | | | coma (HCC) Elevated | until 11/07/2015 | | | | | AFP Alcohol abuse | | | | | | Marijuana abuse | | | | | | Elevated | | | | | | triglycerides with | | | | | | high cholesterol | | | | | | Thrombocytopenia | | | | | | (HCC) Insulin | | | | | | dependent type 2 | | | | | | diabetes mellitus, | | | | | | uncontrolled (HCC) | | + +---------+--------+ + + | Misc Lab Referral | Lab | Routin | Chronic hepatitis | Expected: 07/10/2015 | | | | e | C without hepatic | (Approximate), | | | | | coma (HCC) Elevated | Expires: 10/08/2015 | | | | | AFP Alcohol abuse | | | | | | Marijuana abuse | | | | | | Elevated | | | | | | triglycerides with | | | | | | high cholesterol | | | | | | Thrombocytopenia | | | | | | (HCC) Insulin | | | | | | dependent type 2 | | | | | | diabetes mellitus, | | | | | | uncontrolled (HCC) | | + +---------+--------+ + + | US Abdomen Limited | Imaging | Routin | Chronic hepatitis | Expected: | | | | e | C without hepatic | 07/10/2015, Expires: | | | | | coma (HCC) Elevated | 11/07/2015 | | | | | AFP Alcohol abuse | | | | | | Marijuana abuse | | | | | | Elevated | | | | | | triglycerides with | | | | | | high cholesterol | | | | | | Thrombocytopenia | | | | | | (HCC) Insulin | | | | | | dependent type 2 | | | | | | diabetes mellitus, | | | | | | uncontrolled (HCC) | | + +---------+--------+ + + documented as of this encounter Visit Diagnoses + + | Diagnosis | + + | Chronic hepatitis C without hepatic coma (HCC) - Primary | + + | Elevated AFP Other nonspecific findings on examination of blood | + + | Alcohol abuse Alcohol abuse, unspecified | + + | Marijuana abuse Cannabis abuse, unspecified | + + | Elevated triglycerides with high cholesterol Mixed hyperlipidemia | + + | Thrombocytopenia (HCC) Thrombocytopenia, unspecified | + + | Insulin dependent type 2 diabetes mellitus, uncontrolled (HCC) Type II or unspecified | | type diabetes mellitus without mention of complication, uncontrolled | + + documented in this encounter
--- OUTSIDE RECORDS SUMMARY | ~2019-01-07 | XMS | Encounter Summary ---
Demographics + + + | Address | [address] | | | [place] [address] | + + + | Home Phone | | + + + | Preferred Language | Unknown | + + + | Marital Status | Single | + + + | Orthodox Affiliation | NRP | + + + | Race | or | + + + | Ethnic Group | Not or | + + + Author + + + | Author | [facility] | + + + | Organization | [facility] | + + + | Address | Unknown | + + + | Phone | Unavailable | + + + Support + + +---------+ + | Name | Relationship | Address | Phone | + + +---------+ + | Mary Medellin | ECON | Unknown | | + + +---------+ + Care Team Providers + +------+ + | Care Green Meat Packer Name | Role | Phone | + [...] | | | | CELE Rivas | [facility] | | | | | Mailcode: Center | [place], [place] | | | | | for Health and | [address] | | | | | Healing, [address] | [phone] | | | | | [place], [place] | | | | | | [address] | | | | | | [phone] | | | +--------+ + + + [...]
--- OUTSIDE RECORDS SUMMARY | ~2019-01-07 | XMS | Encounter Summary ---
Demographics + + + | Address | [address] | | | [place] [address] | + + + | Home Phone | | + + + | Preferred Language | Unknown | + + + | Marital Status | Single | + + + | Taoist Affiliation | Unknown | + + + | Race | Unknown | + + + | Ethnic Group | Unknown | + + + Author + + + | Author | [facility] | | | and [place] | + + + | Organization | [facility] | | | and [...] Providers + +------+ + | Care Senior Microstrategy Developer Name | Role | Phone | + +------+ + | Shakir Monzon DO | PCP | | + +------+ + Encounter Details +--------+ + + + + | Date | Type | Department | Care Team | Description | +--------+ + + + + | 05/27/ | Imaging | [facility] | Provider, | | | 2018 | Exam | [facility] | MD [address] | | | | | IMAGING | [address] | | | | | [phone] | [place] [address] | | +--------+ + + + + [...] [place] | | | | | | [id number] | | | | | | | | +--------+---------+ + + + documented as of this encounter Procedures + +--------+ + + + | Procedure Name | Priori | Date/Time | Associated Diagnosis | Comments | | | ty | | | | + +--------+ + + + | US ABDOMEN LIMITED | Routin | 04/25/2017 | | Results for this | | | e | 8:00 AM | | procedure are in the | | | | PDT | | results section. | + +--------+ + + + documented in this encounter Results US Abdomen Limited (04/25/2017 8:00 AM PDT) + + | Specimen | + + | | + + + + + | Narrative | Performed At | + + + | External films for comparison only - no result from [facility]. | [facility] | + + + + +---------+ + + | Performing | Address | City/State/Zipcode | Phone Number | | Organization | | | | + +---------+ + + | [facility] | | | | + +---------+ + + documented in this encounter Visit Diagnoses Not on filedocumented in this encounter"
--- OUTSIDE RECORDS SUMMARY | ~2019-01-07 | XMS | Encounter Summary ---
Demographics + + + | Address | [address] | | | [place] [address] | + + + | Home Phone | | + + + | Preferred Language | Unknown | + + + | Marital Status | Single | + + + | Mandaeism Affiliation | Unknown | + + + [...] Team Providers + +------+ + | Care Overhead Cleaner Maintainer Name | Role | Phone | + +------+ + | Mookie Castro PA-C | PCP | | + +------+ + Encounter Details +--------+ + + + + | Date | Type | Department | Care Team | Description | +--------+ + + + + | 09/09/ | Abstract | [facility] [place] | [facility], | | | 2015 | | GASTROENTEROLOGY | [place] [address] | | | | | [address] [place] | [place], [place] [address] | | | | | [address] [place] | [place] | | | | | [address] | [address] | | | | | [phone] | | | +--------+ + + + [...] | | | | | [place] | | | | | | [address] | | | | | | | | +--------+---------+ + + + documented as of this encounter Procedures + +--------+ + + + | Procedure Name | Priori | Date/Time | Associated Diagnosis | Comments | | | ty | | | | + +--------+ + + + | EXTERNAL LAB: CBC | Routin | 07/30/2015 | | Results for this | | | e | | | procedure are in the | | | | | | results section. | + +--------+ + + + | CBC WITH | Routin | 07/30/2015 | | Results for this | | DIFFERENTIAL | e | | | procedure are in the | | | | | | results section. | + +--------+ + + + | HEMOGLOBIN A1C | Routin | 07/30/2015 | | Results for this | | | e | | | procedure are in the | | | | | | results section. | + +--------+ + + + | FIBROSIS SERUM PANEL | Routin | 07/29/2015 | | Results for this | | | e | | | procedure are in the | | | | | | results section. | + +--------+ + + + documented in this encounter Results Hemoglobin A1C (07/30/2015) + +---------+ + + + | Component | Value | Ref Range | Performed | Pathologist | | | | | At | Signature | + +---------+ + + + | Hemoglobin | 8.7 (A) | 6.4 | EXTERNAL | | | A1c, | | | LAB | | | external | | | | | + +---------+ + + + + + | Specimen | + + | Blood specimen | | (specimen) | + + + + | Resulting Agency Comment | + + | [facility] | + + + +---------+ + + | Performing | Address | City/State/Zipcode | Phone Number | | Organization | | | | + +---------+ + + | EXTERNAL LAB | | | | + +---------+ + + External Lab: CBC (07/30/2015) + +--------+ + + + | Component | Value | Ref Range | Performed | Pathologist | | | | | At | Signature | + +--------+ + + + | WBC, | 4.4 | 4 - 11 | EXTERNAL | | | External | | | LAB | | + +--------+ + + + | HGB, | 14.6 | 13.5 - 17.5 | EXTERNAL | | | External | | | LAB | | + +--------+ + + + | HCT, | 40.2 | 40 - 50 | EXTERNAL | | | External | | | LAB | | + +--------+ + + + | PLT, | 69 (A) | 140 - 440 | EXTERNAL | | | External | | | LAB | | + +--------+ + + + | Neutrophils | 56.0 | 37 - 67 | EXTERNAL | | | %, | | | LAB | | | External | | | | | + +--------+ + + + | Lymphocytes | 32.1 | 24 - 44 | EXTERNAL | | | %, | | | LAB | | | External | | | | | + +--------+ + + + | RBC, | 4.36 | 4.3 - 5.7 | EXTERNAL | | | External | | | LAB | | + +--------+ + + + | MCV, | 92 | 81 - 99 | EXTERNAL | | | External | | | LAB | | + +--------+ + + + | RDW, | 13.7 | 10.5 - 15 | EXTERNAL | | | External | | | LAB | | + +--------+ + + + + + | Specimen | + + | | + + + + | Resulting Agency Comment | + + | [facility] | + + + +---------+ + + | Performing | Address | City/State/Zipcode | Phone Number | | Organization | | | | + +---------+ + + | EXTERNAL LAB | | | | + +---------+ + + CBC with Differential (07/30/2015) + + + + + + | Component | Value | Ref Range | Performed | Pathologist | | | | | At | Signature | + + + + + + | MCH | 33.5 (A) | 27.0 - 33.0 pg | | | + + + + + + | MCHC | 36.3 (A) | 30.0 - 36.0 % | | | + + + + + + + + | Specimen | + + | Blood specimen | | (specimen) | + + Fibrosis serum panel (07/29/2015) + +-------+ + + + | Component | Value | Ref Range | Performed | Pathologist | | | | | At | Signature | + +-------+ + + + | FIBROSPECT | 85 | | | | | INDEX.SER/P | | | | | | LAS.QN | | | | | + +-------+ + + + | Interpretat | F3-F4 | | | | | ion | | | | | + +-------+ + + + + + | Specimen | + + | Blood specimen | | (specimen) | + + documented in this encounter Visit Diagnoses Not on filedocumented in this encounter"
--- OUTSIDE RECORDS SUMMARY | ~2019-01-07 | XMS | Encounter Summary ---
Demographics + + + | Address | [address] | | | [place] [address] | + + + | Home Phone | | + + + | Preferred Language | Unknown | + + + | Marital Status | Single | + + + | Synagogue Affiliation | Unknown | + + + | Race | Unknown | + + + | Ethnic Group | Unknown | + + + Author + + + | Author | [facility] | | | and [place] | + + + | Organization | [facility] | | | and [...] Team Providers + +------+ + | Care Strategy Intern Name | Role | Phone | + +------+ + | Shakir Monzon DO | PCP | | + +------+ + Reason for Visit +--------+ + | Reason | Comments | +--------+ + | EGD | | +--------+ + Encounter Details +--------+ + + + + | Date | Type | Department | Care Team | Description | +--------+ + + + + | 11/09/ | Telephone | [facility] | Donell Hunt MD | EGD | | 2017 | | GASTROENTEROLOGY | [address] | | | | | [address] [facility] | [place], [place] | | | | | [address] [place] | [address] | | | | | [address] | [phone] | | | | | [phone] | | | +--------+ + + + [...] | | | | | [place] | | | | | | [address] | | | | | | | | +--------+---------+ + + + documented as of this encounter Visit Diagnoses Not on filedocumented in this encounter"
--- OUTSIDE RECORDS SUMMARY | ~2019-01-07 | XMS | Encounter Summary ---
Demographics + + + | Address | [address] | | | [place] [address] | + + + | Home Phone | | + + + | Preferred Language | Unknown | + + + | Marital Status | Single | + + + | Congregational Affiliation | Unknown | + + + | Race | Unknown | + + + | Ethnic Group | Unknown | + + + Author + + + | Author | [facility] | | | and [place] | + + + | Organization | [facility] | | | and [...] Team Providers + +------+ + | Care Psychological Operations Name | Role | Phone | + [...] + + | Closed | Specialty | Gastroenterol | Diagnoses | | Cel[place], | | | Services | ogy | Hepatic | Ludy, | MD Donell | | | Required | | cirrhosis, | [place], | [address] | | | | | unspecified | 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 [address] | [place], | | | | | hepatic | [place], [place] | [place] [address] | | | | | cirrhosis | [address] [place] | Phone: | | | | | type (HCC) | [place], [place] | [phone] | | | | | Thrombocytop | [address] | Fax: | | | | | enia, | Phone: | [phone] | | | | | unspecified | [phone] | | | | | | (HCC) | Fax: | | | | | | Chronic | [phone] | | | | | | hepatitis C | | | | | | | without | | | | | | | hepatic coma | | | | | | | (HCC) ETOH | | | | | | | abuse | | | | | | | [...] | | | | | | | PA | | | | | | | ESOPHAGOGAST | | | | | | | RODUODENOSCO | | | | | | | PY TRANSORAL | | | | | | | DIAGNOSTIC | | | | | | | PA EDG | | | | | | | TRANSORAL | | | | | | | BIOPSY | | | | | | | SINGLE/MULTI | | | | | | | PLE PA | | | | | | | ANESTH,UGI | | | | | | | ENDOSCOPY | | | | | | | 09/29>Pendin | | | | | | | g-YH | | | +--------+ + + + + + Reason for Visit + + + | Reason | Comments | + + + | Follow-up | | + + + Evaluate & Treat (Routine) +--------+--------+ + + + + | Status | Reason | Specialty | Diagnoses / | Referred By | Referred To | | | | | Procedures | Contact | Contact | +--------+--------+ + + + + | Closed | | Nurse | Diagnoses | Matthew, | Ludy, | | | | Practitioner | Follow up | Mookie Gooden, | Lucila | | | | / | results/Jorge | [place] [address] | SANITATION 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 [address] | | | | Gastroenterol | brent/pt/ | [facility] | [place] | | | | ogy | Faxed | WAY | [address] | | | | | request for | [place], | [place] | | | | | [employer] | [place] [address] | [address] Phone: | | | | | auth | Phone: | [phone] | | | | | Procedures | [phone] | Fax: | | | | | OFFICE VISIT | Fax: | [phone] | | | | | REGULAR | [phone] | | +--------+--------+ + + + + Encounter Details +--------+---------+ + + + | Date | Type | Department | Care Team | Description | +--------+---------+ + + + | 09/10/ | Office | [facility] | [facility], | Hepatic cirrhosis, | | 2016 | Visit | GASTROENTEROLOGY | [place] [address] | unspecified hepatic | | | | [address] [place] | [place], [place] [address] | cirrhosis type (HCC) | | | | [address] [place], [place] | [place] | (Primary Dx); | | | | [address] | [address] | Thrombocytopenia, | | | | [phone] | | unspecified (HCC); | | | | | | Chronic hepatitis C | | | | | | without hepatic coma | | | | | | (HCC); ETOH abuse; | | | | | | Insulin dependent | | | | | | type 2 diabetes | | | | | | mellitus, | | | | | | uncontrolled (HCC); | | | | | | Marijuana use | +--------+---------+ + + + Social History [...] + + + | Blood Pressure | 152/74 | 09/11/2015 8:32 AM | | | | | PDT | | + + + + + | Pulse | 87 | 09/11/2015 8:32 AM | | | | | PDT | | + + + + + | Temperature | 36.8 C (98.2 F) | 09/11/2015 8:32 AM | | | | | PDT | | + + + + + | Respiratory Rate | 18 | 09/11/2015 8:32 AM | | | | | PDT | | + + + + + | Oxygen Saturation | 94% | 09/11/2015 8:32 AM | | | | | PDT | | + + + + + | Inhaled Oxygen | - | - | | | Concentration | | | | + + + + + | Weight | 95.7 kg (211 lb) | 09/11/2015 8:32 AM | | | | | PDT | | + + + + + | Height | - | - | | + + + + + | Body Mass Index | 29.85 | 07/10/2015 11:18 AM | | | | | PDT | | + + + + + documented in this encounter Patient Instructions Patient Instructions Lucila Boston ARNP - 09/11/2015 9:26 AM PDTNeed to stop ALL al cohol and ALL marijuana May be beneficial to meet with Psychodramatist. Cirrhosis ? MELD score- an indication of severity of liver disease- 10 ? Ultrasound and Lab (CBC, CMP, PT/INR, Alpha fetoprotein) tests every 6 months. Next imagi ng will be MRI of liver ? Low/No salt diet, less than 2 grams per day ? Upper endoscopy to screen for esophageal varices- if large discuss treatment options, suc h as Beta ashlyn or endoscopic therapy ? Avoid ALL alcohol and ALL marijuana ? Avoid NSAIDS ? Tylenol 2 grams daily is generally safe ? Small, frequent, nutritious meals throughout the day about 100 grams of protein per day. ? Multivitamins can be useful. ? Watch for signs of encephalopathy- confusion, sleep all day, awake all night, disorientat ion ? Watch for signs of ascites- fluid build-up in abdominal cavity ? Individuals with ascites need to be aware of signs of infection- fevers, chills, muscle a ches. May be life threatening condition called Spontaneous Bacterial Peritonitis ? Avoid Herbal Medications such as: camphor, chaparral, comfrey, kava, pennyroyal, skullcap , and ma-guevara ? Ensure immunizations are up to date, including influenza, pneumonia, and Hepatitis B ? Take Calcium with Vitamin D for bone health ? Take Vitamin D 1000 IU daily ? 2-3 cups of caffeinated coffee has been shown to promote liver health. documented in this encounter Progress Notes Brandi Serrano, SADA - 09/11/2015 10:08 AM PDTScheduled for egd with prop (ETOH abuse) on at [address] Hunt. Insulin-dependent. Lucila Sotomayor ARNP - 09/11/2015 8:58 AM PDTFormatting of thi s note might be different from the original. Bret Espinal Jr. is a 60 y.o. male here for followup labs and imaging related to HCV, alc oholic liver disease and metabolic syndrome. History of present illness: Patient is here following labs and imaging related to liver disease. He has risk factors fo r fatty liver disease. He continues to drink alcohol and smoke marijuana and has chronic HCV infection. Admits that diabetes is not well controlled. He continues to have blood sugars over 200. Ra rely has blood sugar reading less than 200 at home. Notes that he has had blood sugars in th e 400 and 500 range. Patient states he is down to using marijuana about once per week. He has continued to drink some alcohol. States he has had 10-15 since last visit 06/2015. Denies ascites, jaundice, hematemesis, peripheral edema, sleep changes, or confusion. No Known Allergies Past Medical History Diagnosis Date Type 2 diabetes mellitus (HCC) Hyperlipidemia Tobacco use disorder GERD (gastroesophageal reflux disease) Thrombocytopenia (HCC) Vitamin D deficiency Positive H. pylori test Localized, secondary osteoarthritis of the shoulder region Internal hemorrhoids without complication Lichen planus Dermatitis Past Surgical History Procedure Laterality Date Colonoscopy 2012 [place] Family History Problem Relation Age of Onset [...] or swelling to legs Physical exam: General: Alert and oriented, NAD Eyes: Sclera clear Mouth: Mucous membranes moist Extremities: No clubbing or edema Skin: Warm, dry, intact. No rashes noted Neuro: Cranial nerves 2-12 grossly intact. Psych: Appropriate mood and affect. Abstract on 09/11/2015 Component Date Value Ref Range Status ANION GAP 07/30/2015 8 Final BUN/Creatinine Ratio 07/30/2015 16.7 Final TIBC 07/30/2015 346 Final TRANSFERRIN 07/30/2015 286.0 Final A-1 Antitrypsin 07/30/2015 131 Final AFP Tumor Marker 07/30/2015 16.4* 0.6 - 6.6 ng/mL Final CERULOPLASMIN 07/30/2015 27 Final CHRISTIAN Screen 07/30/2015 Negative Negative Final CHRISTIAN SCREEN 07/30/2015 0.9 0 - 0.9 Final SM Autoantibody 07/30/2015 Negative Final Mitochondrial Ab 07/30/2015 Negative Final Creatinine, External 07/30/2015 0.84 0.7 - 1.3 Final eGFR, External 07/30/2015 >60 60 - [id number] Final INR, External 07/30/2015 1.2* 0.9 - 1.1 Final PT, External 07/30/2015 15* 12 - 14.2 Final Ferritin, External 07/30/2015 182 11 - 450 Final Iron Saturation, External 07/30/2015 54 20 - 55 Final Iron, External 07/30/2015 186 45 - 190 Final Sodium, External 07/30/2015 141 135 - 145 Final Potassium, External 07/30/2015 4.1 3.5 - 5.3 Final Chloride, External 07/30/2015 114* 99 - 109 Final Carbon Dioxide, External 07/30/2015 19* 22 - 31 Final Calcium, External 07/30/2015 8.8 8.5 - 10.2 Final Protein, Total, External 07/30/2015 7.3 6.2 - 8.2 Final Albumin, External 07/30/2015 2.9* 3.5 - 4.7 Final Bilirubin, Total, External 07/30/2015 1.5 0.1 - 1.5 Final ALP, External 07/30/2015 66 35 - 115 Final AST, External 07/30/2015 187* 10 - 45 Final ALT, External 07/30/2015 167* 10 - 65 Final Glucose, External 07/30/2015 179* 65 - 99 Final BUN, External 07/30/2015 14 6 - 25 Final Abstract on 09/10/2015 Component Date Value Ref Range Status FIBROSPECT INDEX.SER/PLAS.QN 07/29/2015 85 Final Interpretation 07/29/2015 F3-F4 Final MCH 07/30/2015 33.5* 27.0 - 33.0 pg Final MCHC 07/30/2015 36.3* 30.0 - 36.0 % Final WBC, External 07/30/2015 4.4 4 - 11 Final HGB, External 07/30/2015 14.6 13.5 - 17.5 Final HCT, External 07/30/2015 40.2 40 - 50 Final PLT, External 07/30/2015 69* 140 - 440 Final Neutrophils %, External 07/30/2015 56.0 37 - 67 Final Lymphocytes %, External 07/30/2015 32.1 24 - 44 Final RBC, External 07/30/2015 4.36 4.3 - 5.7 Final MCV, External 07/30/2015 92 81 - 99 Final RDW, External 07/30/2015 13.7 10.5 - 15 Final Hemoglobin A1c, external 07/30/2015 8.7* 6.4 Final Abdominal ultrasound 07/23/2015: Impression: Finding consistent with cirrhosis and portal hypertension. Including splenomegaly. Splenic varices. Nodular liver with diminished size and reversed portal venous flow. No ascites. Cho lelithiasis without evidence of cholecystitis. Assessment 1. Hepatic cirrhosis, unspecified hepatic cirrhosis type (HCC) Ambulatory referral to [facility] ([facility]) likely combination of HCV, alcohol abuse, and steatohepatitis. 2. Thrombocytopenia, unspecified (HCC) Ambulatory referral to Gastroenterology ([facility]) 3. Chronic hepatitis C without hepatic coma (HCC) Ambulatory referral to Gastroenterology ([facility]) 4. ETOH abuse Ambulatory referral to Gastroenterology ([facility]) 5. Insulin dependent type 2 diabetes mellitus, uncontrolled (HCC) Ambulatory referral to G astroenterology ([facility]) 6. Marijuana use Plan: Hepatitis C Infection: Patient is genotype 1a. The patient most likely acquired the HCV in fection decades ago and has now progressed to cirrhosis. Cirrhosis: Based upon the most recent laboratory studies and my examination today, the belen ent has a model for end-stage liver disease (MELD) score 10 and a Yolande score of 6, which i s Yolande class A. Cirrhosis likely caused by combination of alcohol abuse, HCV and steatohepatitis. Patient may benefit from referral to turbine blade assembler to help with control of diabetes. Liver Transplantation: Patient is not interested in being referred for evaluation of liver transplantation. Varices: Patient has not had EGD to screen for esophageal varices. There is no history or v ariceal bleed. Patient to have EGD for further evaluation.The [...] meals with protein. Hepatic Encephalopathy: Patient does not have evidence of encephalopathy. Current treatment includes none. Hepatocellular Carcinoma Screening: Patient is at increased risk of developing HCC. Art t will need liver ultrasound, CBC, CMP, INR, and AFP every 6 months. MRI of liver/abdomen may be useful due to elevated AFP and uncontrolled diabetes. Metabolic Bone Disease: longterm Cirrhotics are at increased risk of developing osteopenia and osteoporosis. Oral bisphosphonates have been shown to increase the risk of variceal ble eding in patients with known varices. IV bisphosphonates are recommended. Recommend DEXA sca ns and treatment if needed by PCP. Insulin Resistance/Diabetes: Approximately 30% of cirrhotic patients will develop insulin r esistance or diabetes. Recommend routine screening and treatment by PCP. Vaccinations: Patient should remain up to date [...] patches are safe. Discuss further with PCP. Will follow up with results. Patient is [...] | | | | | [place] | | | | | | [address] | | | | | | | | +--------+---------+ + + + + + +--------+ + + | Name | Type | Priori | Associated Diagnoses | Order Schedule | | | | ty | | | + + +--------+ + + | Ambulatory referral | Outpatient | Routin | Hepatic cirrhosis, | Expected: 10/02/2015 | | to Gastroenterology | Referral | e | unspecified hepatic | (Approximate), | | ([facility]) | | | cirrhosis type | Expires: 09/10/2016 | | | | | (HCC) | | | | | | Thrombocytopenia, | | | | | | unspecified (HCC) | | | | | | Chronic hepatitis C | | | | | | without hepatic coma | | | | | | (HCC) ETOH abuse | | | | | | Insulin dependent | | | | | | type 2 diabetes | | | | | | mellitus, | | | | | | uncontrolled (HCC) | | + + +--------+ + + documented as of this encounter Visit Diagnoses + + | Diagnosis | + + | Hepatic cirrhosis, unspecified hepatic cirrhosis type (HCC) - Primary | + + | Thrombocytopenia, unspecified (HCC) Thrombocytopenia, unspecified | + + | Chronic hepatitis C without hepatic coma (HCC) | + + | ETOH abuse Alcohol abuse, unspecified | + + | Insulin dependent type 2 diabetes mellitus, uncontrolled (HCC) Type II or unspecified | | type diabetes mellitus without mention of complication, uncontrolled | + + | Marijuana use Cannabis abuse, unspecified | + + documented in this encounter"
--- OUTSIDE RECORDS SUMMARY | ~2019-01-07 | XMS | Encounter Summary ---
Demographics + + + | Address | [address] | | | [place] [address] | + + + | Home Phone | | + + + | Preferred Language | Unknown | + + + | Marital Status | Single | + + + | Voodoo Affiliation | NRP | + + + | Race | or | + + + | Ethnic Group | Not or | + + + Author + + + | Author | [facility] | + + + | Organization | [facility] [employer] [facility] | + + + | Address | Unknown | + + + | Phone | Unavailable | + + + Support + + +---------+ + | Name | Relationship | Address | Phone | + + +---------+ + | Mary Medellin | ECON | Unknown | | + + +---------+ + Care Team Providers + +------+ + | Care Link Fabric Machine Operator Name | Role | Phone [...] | +--------+ + + + + | 12/07/ | Abstract | [facility] | Bessy Solano, | Blood Test Results | | 2017 | | [place] [address] | PA-C [address] | | | | | [address] | [place] | | | | | Mailcode: [id number] | [place], [place] | | | | | [facility] | [address] | | | | | [facility] Healing, | [phone] | | | | | [address] | | | | | | [place], [place] | | | | | | [address] | | | | | | [phone] | | | +--------+ + + + [...]
--- OUTSIDE RECORDS SUMMARY | ~2019-01-07 | XMS | Encounter Summary ---
Demographics + + + | Address | [address] | | | [place] [address] | + + + | Home Phone | | + + + | Preferred Language | Unknown | + + + | Marital Status | Single | + + + | Advent Affiliation | Unknown | + + + | Race | Unknown | + + + | Ethnic Group | Unknown | + + + Author + + + | Author | [facility] | | | and [place] | + + + | Organization | [facility] | | | [...] Team Providers + +------+ + | Care Chip Bin Conveyor Tender Name | Role | Phone | + +------+ + | Mookie Castro PA-C | PCP | | + +------+ + Encounter Details +--------+ + + + + | Date | Type | Department | Care Team | Description | +--------+ + + + + | 09/10/ | Abstract | [facility] | [facility], | | | 2015 | | GASTROENTEROLOGY | [place] [address] | | | | | [address] [place] | [place], [address] | | | | | [address] [place] | [place] | | | | | [address] | [address] | | | | | [phone] | | | +--------+ + + + [...] | | | | | [place] | | | | | | [id number] | | | | | | | | +--------+---------+ + + + documented as of this encounter Procedures + +--------+ + + + | Procedure Name | Priori | Date/Time | Associated Diagnosis | Comments | | | ty | | | | + +--------+ + + + | EXTERNAL LAB: ELIN | Routin | 07/30/2015 | | Results for this | | | e | | | procedure are in the | | | | | | results section. | + +--------+ + + + | EXTERNAL LAB: | Routin | 07/30/2015 | | Results for this | | GLUCOSE | e | | | procedure are in the | | | | | | results section. | + +--------+ + + + | EXTERNAL LAB: NOEMI | Routin | 07/30/2015 | | Results for this | | | e | | | procedure are in the | | | | | | results section. | + +--------+ + + + | EXTERNAL LAB: AST | Routin | 07/30/2015 | | Results for this | | | e | | | procedure are in the | | | | | | results section. | + +--------+ + + + | EXTERNAL LAB: | Routin | 07/30/2015 | | Results for this | | ALKALINE PHOSPHATASE | e | | | procedure are in the | | | | | | results section. | + +--------+ + + + | EXTERNAL LAB: | Routin | 07/30/2015 | | Results for this | | BILIRUBIN, TOTAL | e | | | procedure are in the | | | | | | results section. | + +--------+ + + + | EXTERNAL LAB: | Routin | 07/30/2015 | | Results for this | | ALBUMIN | e | | | procedure are in the | | | | | | results section. | + +--------+ + + + | EXTERNAL LAB: | Routin | 07/30/2015 | | Results for this | | PROTEIN, TOTAL | e | | | procedure are in the | | | | | | results section. | + +--------+ + + + | EXTERNAL LAB: | Routin | 07/30/2015 | | Results for this | | CALCIUM | e | | | procedure are in the | | | | | | results section. | + +--------+ + + + | EXTERNAL LAB: CARBON | Routin | 07/30/2015 | | Results for this | | DIOXIDE | e | | | procedure are in the | | | | | | results section. | + +--------+ + + + | EXTERNAL LAB: | Routin | 07/30/2015 | | Results for this | | CHLORIDE | e | | | procedure are in the | | | | | | results section. | + +--------+ + + + | EXTERNAL LAB: | Routin | 07/30/2015 | | Results for this | | POTASSIUM | e | | | procedure are in the | | | | | | results section. | + +--------+ + + + | EXTERNAL LAB: SODIUM | Routin | 07/30/2015 | | Results for this | | | e | | | procedure are in the | | | | | | results section. | + +--------+ + + + | EXTERNAL LAB: IRON | Routin | 07/30/2015 | | Results for this | | TOTAL | e | | | procedure are in the | | | | | | results section. | + +--------+ + + + | EXTERNAL LAB: IRON | Routin | 07/30/2015 | | Results for this | | SATURATION | e | | | procedure are in the | | | | | | results section. | + +--------+ + + + | EXTERNAL LAB: | Routin | 07/30/2015 | | Results for this | | FERRITIN | e | | | procedure are in the | | | | | | results section. | + +--------+ + + + | EXTERNAL LAB: | Routin | 07/30/2015 | | Results for this | | PROTIME INR | e | | | procedure are in the | | | | | | results section. | + +--------+ + + + | EXTERNAL LAB: EGFR | Routin | 07/30/2015 | | Results for this | | | e | | | procedure are in the | | | | | | results section. | + +--------+ + + + | EXTERNAL LAB: | Routin | 07/30/2015 | | Results for this | | CREATININE | e | | | procedure are in the | | | | | | results section. | + +--------+ + + + | IRON PROFILE, | Routin | 07/30/2015 | | Results for this | | (FE+IBC+FERR+%SAT) | e | | | procedure are in the | | | | | | results section. | + +--------+ + + + | AUTOIMMUNE PROFILE | Routin | 07/30/2015 | | Results for this | | (REFLEXIVE) | e | | | procedure are in the | | | | | | results section. | + +--------+ + + + | COMPREHENSIVE | Routin | 07/30/2015 | | Results for this | | METABOLIC PANEL | e | | | procedure are in the | | | | | | results section. | + +--------+ + + + documented in this encounter Results External Lab: ELIN (07/30/2015) + +-------+ + + + | Component | Value | Ref Range | Performed | Pathologist | | | | | At | Signature | + +-------+ + + + | BUN, | 14 | 6 - 25 | EXTERNAL | | | External | | | LAB | | + +-------+ + + + + + | Resulting Agency Comment | + + | [facility] | + + + +---------+ + + | Performing | Address | City/State/Zipcode | Phone Number | | Organization | | | | + +---------+ + + | EXTERNAL LAB | | | | + +---------+ + + External Lab: Glucose (07/30/2015) + +---------+ + + + | Component | Value | Ref Range | Performed | Pathologist | | | | | At | Signature | + +---------+ + + + | Glucose, | 179 (A) | 65 - 99 | EXTERNAL | | | External | | | LAB | | + +---------+ + + + + + | Resulting Agency Comment | + + | [facility] | + + + +---------+ + + | Performing | Address | City/State/Zipcode | Phone Number | | Organization | | | | + +---------+ + + | EXTERNAL LAB | | | | + +---------+ + + External Lab: ALT (07/30/2015) + +---------+ + + + | Component | Value | Ref Range | Performed | Pathologist | | | | | At | Signature | + +---------+ + + + | ALT, | 167 (A) | 10 - 65 | EXTERNAL | | | External | | | LAB | | + +---------+ + + + + + | Resulting Agency Comment | + + | [facility] | + + + +---------+ + + | Performing | Address | City/State/Zipcode | Phone Number | | Organization | | | | + +---------+ + + | EXTERNAL LAB | | | | + +---------+ + + External Lab: AST (07/30/2015) + +---------+ + + + | Component | Value | Ref Range | Performed | Pathologist | | | | | At | Signature | + +---------+ + + + | AST, | 187 (A) | 10 - 45 | EXTERNAL | | | External | | | LAB | | + +---------+ + + + + + | Resulting Agency Comment | + + | [facility] | + + + +---------+ + + | Performing | Address | City/State/Zipcode | Phone Number | | Organization | | | | + +---------+ + + | EXTERNAL LAB | | | | + +---------+ + + External Lab: Alkaline Phosphatase (07/30/2015) + +-------+ + + + | Component | Value | Ref Range | Performed | Pathologist | | | | | At | Signature | + +-------+ + + + | ALP, | 66 | 35 - 115 | EXTERNAL | | | External | | | LAB | | + +-------+ + + + + + | Resulting Agency Comment | + + | [facility] | + + + +---------+ + + | Performing | Address | City/State/Zipcode | Phone Number | | Organization | | | | + +---------+ + + | EXTERNAL LAB | | | | + +---------+ + + External Lab: Bilirubin, Total (07/30/2015) + +-------+ + + + | Component | Value | Ref Range | Performed | Pathologist | | | | | At | Signature | + +-------+ + + + | Bilirubin, | 1.5 | 0.1 - 1.5 | EXTERNAL | | | Total, | | | LAB | | | External | | | | | + +-------+ + + + + + | Resulting Agency Comment | + + | [facility] | + + + +---------+ + + | Performing | Address | City/State/Zipcode | Phone Number | | Organization | | | | + +---------+ + + | EXTERNAL LAB | | | | + +---------+ + + External Lab: Albumin (07/30/2015) + +---------+ + + + | Component | Value | Ref Range | Performed | Pathologist | | | | | At | Signature | + +---------+ + + + | Albumin, | 2.9 (A) | 3.5 - 4.7 | EXTERNAL | | | External | | | LAB | | + +---------+ + + + + + | Resulting Agency Comment | + + | [facility] | + + + +---------+ + + | Performing | Address | City/State/Zipcode | Phone Number | | Organization | | | | + +---------+ + + | EXTERNAL LAB | | | | + +---------+ + + External Lab: Protein, Total (07/30/2015) + +-------+ + + + | Component | Value | Ref Range | Performed | Pathologist | | | | | At | Signature | + +-------+ + + + | Protein, | 7.3 | 6.2 - 8.2 | EXTERNAL | | | Total, | | | LAB | | | External | | | | | + +-------+ + + + + + | Resulting Agency Comment | + + | [facility] | + + + +---------+ + + | Performing | Address | City/State/Zipcode | Phone Number | | Organization | | | | + +---------+ + + | EXTERNAL LAB | | | | + +---------+ + + External Lab: Calcium (07/30/2015) + +-------+ + + + | Component | Value | Ref Range | Performed | Pathologist | | | | | At | Signature | + +-------+ + + + | Calcium, | 8.8 | 8.5 - 10.2 | EXTERNAL | | | External | | | LAB | | + +-------+ + + + + + | Resulting Agency Comment | + + | [facility] | + + + +---------+ + + | Performing | Address | City/State/Zipcode | Phone Number | | Organization | | | | + +---------+ + + | EXTERNAL LAB | | | | + +---------+ + + External Lab: Carbon Dioxide (07/30/2015) + +--------+ + + + | Component | Value | Ref Range | Performed | Pathologist | | | | | At | Signature | + +--------+ + + + | Carbon | 19 (A) | 22 - 31 | EXTERNAL | | | Dioxide, | | | LAB | | | External | | | | | + +--------+ + + + + + | Resulting Agency Comment | + + | [facility] | + + + +---------+ + + | Performing | Address | City/State/Zipcode | Phone Number | | Organization | | | | + +---------+ + + | EXTERNAL LAB | | | | + +---------+ + + External Lab: Chloride (07/30/2015) + +---------+ + + + | Component | Value | Ref Range | Performed | Pathologist | | | | | At | Signature | + +---------+ + + + | Chloride, | 114 (A) | 99 - 109 | EXTERNAL | | | External | | | LAB | | + +---------+ + + + + + | Resulting Agency Comment | + + | [facility] | + + + +---------+ + + | Performing | Address | City/State/Zipcode | Phone Number | | Organization | | | | + +---------+ + + | EXTERNAL LAB | | | | + +---------+ + + External Lab: Potassium (07/30/2015) + +-------+ + + + | Component | Value | Ref Range | Performed | Pathologist | | | | | At | Signature | + +-------+ + + + | Potassium, | 4.1 | 3.5 - 5.3 | EXTERNAL | | | External | | | LAB | | + +-------+ + + + + + | Resulting Agency Comment | + + | [facility] | + + + +---------+ + + | Performing | Address | City/State/Zipcode | Phone Number | | Organization | | | | + +---------+ + + | EXTERNAL LAB | | | | + +---------+ + + External Lab: Sodium (07/30/2015) + +-------+ + + + | Component | Value | Ref Range | Performed | Pathologist | | | | | At | Signature | + +-------+ + + + | Sodium, | 141 | 135 - 145 | EXTERNAL | | | External | | | LAB | | + +-------+ + + + + + | Resulting Agency Comment | + + | [facility] | + + + +---------+ + + | Performing | Address | City/State/Zipcode | Phone Number | | Organization | | | | + +---------+ + + | EXTERNAL LAB | | | | + +---------+ + + External Lab: Iron Total (07/30/2015) + +-------+ + + + | Component | Value | Ref Range | Performed | Pathologist | | | | | At | Signature | + +-------+ + + + | Iron, | 186 | 45 - 190 | EXTERNAL | | | External | | | LAB | | + +-------+ + + + + + | Resulting Agency Comment | + + | [facility] | + + + +---------+ + + | Performing | Address | City/State/Zipcode | Phone Number | | Organization | | | | + +---------+ + + | EXTERNAL LAB | | | | + +---------+ + + External Lab: Iron Saturation (07/30/2015) + +-------+ + + + | Component | Value | Ref Range | Performed | Pathologist | | | | | At | Signature | + +-------+ + + + | Iron | 54 | 20 - 55 | EXTERNAL | | | Saturation, | | | LAB | | | External | | | | | + +-------+ + + + + + | Resulting Agency Comment | + + | [facility] | + + + +---------+ + + | Performing | Address | City/State/Zipcode | Phone Number | | Organization | | | | + +---------+ + + | EXTERNAL LAB | | | | + +---------+ + + External Lab: Ferritin (07/30/2015) + +-------+ + + + | Component | Value | Ref Range | Performed | Pathologist | | | | | At | Signature | + +-------+ + + + | Ferritin, | 182 | 11 - 450 | EXTERNAL | | | External | | | LAB | | + +-------+ + + + + + | Resulting Agency Comment | + + | [facility] | + + + +---------+ + + | Performing | Address | City/State/Zipcode | Phone Number | | Organization | | | | + +---------+ + + | EXTERNAL LAB | | | | + +---------+ + + External Lab: Arthur MACIAS (07/30/2015) + +---------+ + + + | Component | Value | Ref Range | Performed | Pathologist | | | | | At | Signature | + +---------+ + + + | INR, | 1.2 (A) | 0.9 - 1.1 | EXTERNAL | | | External | | | LAB | | + +---------+ + + + | PT, | 15 (A) | 12 - 14.2 | EXTERNAL | | | External | | | LAB | | + +---------+ + + + + + | Specimen | + + | Blood specimen | | (specimen) | + + + + | Resulting Agency Comment | + + | [facility] | + + + +---------+ + + | Performing | Address | City/State/Zipcode | Phone Number | | Organization | | | | + +---------+ + + | EXTERNAL LAB | | | | + +---------+ + + External Lab: eGFR (07/30/2015) + +-------+ + + + | Component | Value | Ref Range | Performed | Pathologist | | | | | At | Signature | + +-------+ + + + | eGFR, | >60 | 60 - 999,999 | EXTERNAL | | | External | | | LAB | | + +-------+ + + + + + | Specimen | + + | Blood specimen | | (specimen) | + + + + | Resulting Agency Comment | + + | [facility] | + + + +---------+ + + | Performing | Address | City/State/Zipcode | Phone Number | | Organization | | | | + +---------+ + + | EXTERNAL LAB | | | | + +---------+ + + External Lab: Creatinine (07/30/2015) + +-------+ + + + | Component | Value | Ref Range | Performed | Pathologist | | | | | At | Signature | + +-------+ + + + | Creatinine, | 0.84 | 0.7 - 1.3 | EXTERNAL | | | External | | | LAB | | + +-------+ + + + + + | Specimen | + + | Blood specimen | | (specimen) | + + + + | Resulting Agency Comment | + + | [facility] | + + + +---------+ + + | Performing | Address | City/State/Zipcode | Phone Number | | Organization | | | | + +---------+ + + | EXTERNAL LAB | | | | + +---------+ + + Autoimmune Profile (Reflexive) (07/30/2015) + + + + + + | Component | Value | Ref Range | Performed | Pathologist | | | | | At | Signature | + + + + + + | A-1 | 131 | | | | | Antitrypsin | | | | | + + + + + + | AFP Tumor | 16.4 (A) | 0.6 - 6.6 ng/mL | | | | Marker | | | | | + + + + + + | CERULOPLASM | 27 | | | | | IN | | | | | + + + + + + | CHRISTIAN Screen | Negative | Negative | | | + + + + + + | CHRISTIAN SCREEN | 0.9 | 0 - 0.9 | | | + + + + + + | SM | Negative | | | | | Autoantibod | | | | | | y | | | | | + + + + + + | Mitochondri | Negative | | | | | al Ab | | | | | + + + + + + + + | Specimen | + + | | + + Iron Profile (07/30/2015) + +-------+ + + + | Component | Value | Ref Range | Performed | Pathologist | | | | | At | Signature | + +-------+ + + + | TIBC | 346 | ug/dL | [facility] | [facility] | | | [facility] | [facility] | [facility] - | | | | | | LABORATORY | | + +-------+ + + + | TRANSFERRIN | 286.0 | mg/dL | [facility] | | | | | | [facility] | | | | | | [facility] | | | | | | [facility] - | | | | | | LABORATORY | | + +-------+ + + + + + | Specimen | + + | Blood specimen | | (specimen) | + + + + + + + | Performing | Address | City/State/Zipcode | Phone Number | | Organization | | | | + + + + + | [facility] | [address] | [place] | [phone] | | [facility] | | [address] | | | - LABORATORY | | | | + + + + + Comprehensive Metabolic Panel (07/30/2015) + +-------+ + + + | Component | Value | Ref Range | Performed | Pathologist | | | | | At | Signature | + +-------+ + + + | Anion Gap | 8 | mmol/L | [facility] | | | | | | [facility] | | | | | | [facility] - | | | | | | LABORATORY | | + +-------+ + + + | BUN/Creatin | 16.7 | | [facility] | | | ine Ratio | | | [facility] | | | | | | [facility] | | | | | | C[facility] - | | | | | | LABORATORY | | + +-------+ + + + + + | Specimen | + + | Blood specimen | | (specimen) | + + + + + + + | Performing | Address | City/State/Zipcode | Phone Number | | Organization | | | | + + + + + | [facility] | [address] | [place] | [phone] | | [facility] | | [address] | | | - LABORATORY | | | | + + + + + documented in this encounter Visit Diagnoses Not on filedocumented in this encounter"
--- OUTSIDE RECORDS SUMMARY | ~2019-01-07 | XMS | Encounter Summary ---
Demographics + + + | Address | [address] | | | [place] [address] | + + + | Home Phone | | + + + | Preferred Language | Unknown | + + + | Marital Status | Single | + + + | Tenriism Affiliation | Unknown | + + + | Race | Unknown | + + + | Ethnic Group | Unknown | + + + Author + + + | Author | [facility] | | | and [place] | + + + | Organization | [facility] | | | and [...] Team Providers + +------+ + | Care Beater Worker Helper Name | Role | Phone | + +------+ + | Shakir Monzon DO | PCP | | + +------+ + Encounter Details +--------+ + + + + | Date | Type | Department | Care Team | Description | +--------+ + + + + | 04/27/ | Anesthesia | [facility] | [facility] | | | 2018 | Event | [facility] | MD Isai [address] | | | | | [address] | [address] [place] | | | | | [place], [place] | [place] [address] | | | | | [address] | [phone] | | | | | [phone] | | | +--------+ + + + + Anesthesia Record + + + + + | Procedure Name | Responsible | Anesthesia Start | Anesthesia Stop Time | | | Anesthesiologist | Time | | + + + + + | PROCEDURE NOT | | | | | PERFORMED - ER[facility] | | | | + + + + + + + | No events on file. | + + +------+ | Meds | +------+ + + + No medications | on file. | + + + + + | No agents on file. | + + + + | No blood administrations on file. | + + +--------+ + +---------+ | Type | Details | Placement | Removal | +--------+ + +---------+ | Periph | 08/03/17; 0139; Right; Mid, | 08/03/17 0139 by | | | eral | Anterior (palmar); Forearm; | Brandy V[place]la, | | | IV | hsod-mzt-zfvckv catheter system; | RN | | | | 20 gauge; Hematology, Chemistry, | | | | | Coagulation, Blood Culture | | | +--------+ + +---------+ documented in this encounter Social History + [...] [place] | | | | | | [address] | | | | | | | | +--------+---------+ + + + documented as of this encounter Visit Diagnoses Not on filedocumented in this encounter"
--- OUTSIDE RECORDS SUMMARY | ~2019-01-07 | XMS | Encounter Summary ---
Demographics + + + | Address | [address] | | | [place] [address] | + + + | Home Phone | | + + + | Preferred Language | Unknown | + + + | Marital Status | Single | + + + | Episcopal Affiliation | Unknown | + + + | Race | Unknown | + + + | Ethnic Group | Unknown | + + + Author + + + | Author | [facility] | | | and [place] | + + + | Organization | [facility] | | | [...] Team Providers + +------+ + | Care Correctional Food Service Supervisor Name | Role | Phone | [...] + + | 10/07/ | Documentati | [facility] | Kady Cortez | Nu (Conor | | 2019 | on | CARDIOLOGY [place], Choir Accompanist | [facility] ) | | | | [address] | | | | | | [place] | | | | | | [address] | | | | | | [phone] | | | +--------+ + + + [...] [place] | | | | | | [address] | | | | | | | | +--------+---------+ + + + documented as of this encounter Visit Diagnoses Not on filedocumented in this encounter"
--- OUTSIDE RECORDS SUMMARY | ~2019-01-07 | XMS | Encounter Summary ---
Demographics + + + | Address | [address] | | | [place] [address] | + + + | Home Phone | | + + + | Preferred Language | Unknown | + + + | Marital Status | Single | + + + | Mosque Affiliation | NRP | + + + | Race | or | + + + | Ethnic Group | Not or | + + + Author + + + | Author | [facility] | + + + | Organization | [facility] | + + + | Address | Unknown | + + + | Phone | Unavailable | + + + Support + + +---------+ + | Name | Relationship | Address | Phone | + + +---------+ + | Mary Medellin | ECON | Unknown | | + + +---------+ + Care Team Providers + +------+ + | Care Gambling Dealer Name | Role | Phone | + +------+ + | Shakir Monzon MD | PCP | | + +------+ + Encounter Details +--------+ + + + + | Date | Type | Department | Care Team | Description | +--------+ + + + + | 08/07/ | Pharmacy | Outpatient Retail | | | | 2017 | Visit | [facility] | | | | | | [address] | | | | | | [place], | | | | | | [place] [address] | | | | | | [phone] | | | +--------+ + + + [...]
--- OUTSIDE RECORDS SUMMARY | ~2019-01-07 | XMS | Encounter Summary ---
Demographics + + + | Address | [address] | | | [place] [address] | + + + | Home Phone | | + + + | Preferred Language | Unknown | + + + | Marital Status | Single | + + + | Cheondoism Affiliation | Unknown | + + + | Race | Unknown | + + + | Ethnic Group | Unknown | + + + Author + + + | Author | [facility] | | | and [place] | + + + | Organization | [facility] | | | [...] Team Providers + +------+ + | Care Finishing Supervisor Plastic Sheets Name | Role | Phone | + +------+ + | Shakir Monzon DO | PCP | | + +------+ + Reason for Visit + + + | Reason | Comments | + + + | Medication Refill | | + + + Encounter Details +--------+--------+ + + + | Date | Type | Department | Care Team | Description | +--------+--------+ + + + | 11/29/ | Refill | [facility] | Kady Cortez | Medication Refill | | 2019 | | CARDIOLOGY [place], [place] | | | | | [address] | | | | | | [address] | | | | | | [place], [place] | | | | | | [address] | | | | | | [phone] | | | +--------+--------+ + + + Social History + + [...] Description | +--------+---------+ + + + | 02/20/ | Office | Cardiology | Lakisha Kahn DO | | | 2019 | Visit | | [address] | | | | | | [place] | | | | | | [address] | | | | | | | | +--------+---------+ + + + documented as of this encounter Visit Diagnoses Not on filedocumented in this encounter"
--- OUTSIDE RECORDS SUMMARY | ~2019-01-07 | XMS | Encounter Summary ---
Demographics + + + | Address | [address] | | | [place] [address] | + + + | Home Phone | | + + + | Preferred Language | Unknown | + + + | Marital Status | Single | + + + | Alevism Affiliation | NRP | + + + | Race | or | + + + | Ethnic Group | Not or | + + + Author + + + | Author | [facility] [employer] [facility] | + + + | Organization | [facility] [employer] [facility] [...] Team Providers + +------+ + | Care Drop Pit Worker Name | Role | Phone | + +------+ + | Shakir Monzon MD | PCP | | + +------+ + Encounter Details +--------+ + + + + | Date | Type | Department | Care Team | Description | +--------+ + + + + | 05/10/ | Telephone | [facility] | Bessy Solano, | | | 2017 | | [place] [address] | PA-C [address] | | | | | [address] | [address] | | | | | Mailcode: OC8D | [place], [place] | | | | | [place] [facility] | [address] | | | | | and [place], | [phone] | | | | | [address] | | | | | | [place], [place] | | | | | | [address] | | | | | | [phone] | | | +--------+ + + + [...] + + documented as of this encounter Results ALPHA-FETOPROTEIN TUMOR MARKER, SERUM (10/13/2017 9:49 AM PDT) + +-------+ + + + | Component | Value | Ref Range | Performed | Pathologist | | | | | At | Signature | + +-------+ + + + | AFP TUMOR | 7.7 | <=9.0 ng/mL | [facility] | | | MARKER | | | LABORATORY | | | SERUM, [facility] | | | SERVICES, | | | | | | CORE | | + +-------+ + + + + + | Specimen | + + | Blood - Blood | | (substance) | + + + + + + + | Performing | Address | City/State/Zipcode | Phone Number | | Organization | | | | + + + + + | [facility] | [address] | [place] [address] | | | SERVICES, CORE | [address] | | | + + + + + INR (10/13/2017 9:49 AM PDT) + +-------+ + + + | Component | Value | Ref Range | Performed | Pathologist | | | | | At | Signature | + +-------+ + + + | INR | 1.11 | 0.90 - 1.20 INR | [facility] | | | | | | LABORATORY | | | | | | SERVICES, | | | | | | CORE | | + +-------+ + + + + + | Specimen | + + | Blood - Blood | | (substance) | + + + + + | Narrative | Performed At | + + + | INR Therapeutic ranges for full anticoagulation: INR for | [facility] | | Venous Thromboembolism (2.0 - 3.0) INR INR for | LABORATORY | | most patients with mech. valves (2.5 - 3.5) INR | SERVICES, CORE | + + + + + + + + | Performing | Address | City/State/Zipcode | Phone Number | | Organization | | | | + + + + + | [facility] | [address] | [place] [address] | | | SERVICES, CORE | [address] | | | + + + + + COMPLETE METABOLIC SET (NA,K,CL,CO2,BUN,CREAT,GLUC,CA,AST,ALT,BILI TOTAL,ALK PHOS,ALB,PROT TOTAL) (10/13/2017 9:49 AM PDT) + +---------+ + + + | Component | Value | Ref Range | Performed | Pathologist | | | | | At | Signature | + +---------+ + + + | GLUCOSE, | 248 (H) | 70 - 99 mg/dL | [facility] | | | PLASMA | | | LABORATORY | | | (LAB) | | | SERVICES, | | | | | | CORE | | + +---------+ + + + | BUN, PLASMA | 8 | 6 - 20 mg/dL | [facility] | | | (LAB) | | | LABORATORY | | | | | | SERVICES, | | | | | | CORE | | + +---------+ + + + | CREATININE | 0.88 | 0.70 - 1.30 | [facility] | | | PLASMA | | mg/dL | LABORATORY | | | (LAB) | | | SERVICES, | | | | | | CORE | | + +---------+ + + + | EGFR | >60 | >60 mL/min | [facility] | | | - | | | LABORATORY | | | LEBANESE | | | SERVICES, | | | | | | CORE | | + +---------+ + + + | EGFR NON | >60 | >60 mL/min | [facility] | | | -BARI | | | LABORATORY | | | RICAN | | | SERVICES, | | | | | | CORE | | + +---------+ + + + | SODIUM, | 140 | 136 - 145 | [facility] | | | PLASMA | | mmol/L | LABORATORY | | | (LAB) | | | SERVICES, | | | | | | CORE | | + +---------+ + + + | POTASSIUM, | 3.2 (L) | 3.4 - 5.0 | [facility] | | | PLASMA | | mmol/L | LABORATORY | | | (LAB) | | | SERVICES, | | | | | | CORE | | + +---------+ + + + | CHLORIDE, | 110 (H) | 97 - 108 mmol/L | [facility] | | | PLASMA | | | LABORATORY | | | (LAB) | | | SERVICES, | | | | | | CORE | | + +---------+ + + + | TOTAL CO2, | 22 | 21 - 32 mmol/L | [facility] | | | PLASMA | | | LABORATORY | | | (LAB) | | | SERVICES, | | | | | | CORE | | + +---------+ + + + | CALCIUM, | 8.7 | 8.6 - 10.2 | [facility] | | | PLASMA | | mg/dL | LABORATORY | | | (LAB) | | | SERVICES, | | | | | | CORE | | + +---------+ + + + | CALCIUM(ALB | 9.7 | 8.6 - 10.2 | [facility] | | | CORRECTED) | | mg/dL | LABORATORY | | | | | | SERVICES, | | | | | | CORE | | + +---------+ + + + | BILIRUBIN | 1.4 (H) | 0.3 - 1.2 mg/dL | [facility] | | | TOTAL | | | LABORATORY | | | | | | SERVICES, | | | | | | CORE | | + +---------+ + + + | TOTAL | 7.0 | 6.4 - 8.2 g/dL | [facility] | | | PROTEIN, | | | LABORATORY | | | PLASMA | | | SERVICES, | | | (LAB) | | | CORE | | + +---------+ + + + | ALBUMIN, | 2.8 (L) | 3.5 - 4.7 g/dL | [facility] | | | PLASMA | | | LABORATORY | | | (LAB) | | | SERVICES, | | | | | | CORE | | + +---------+ + + + | ALK PHOS | 105 | 56 - 119 U/L | [facility] | | | | | | LABORATORY | | | | | | SERVICES, | | | | | | CORE | | + +---------+ + + + | AST(SGOT) | 34 | <=41 U/L | [facility] | | | | | | LABORATORY | | | | | | SERVICES, | | | | | | CORE | | + +---------+ + + + | ALT (SGPT) | 33 | <=60 U/L | [facility] | | | | | | LABORATORY | | | | | | SERVICES, | | | | | | CORE | | + +---------+ + + + | ANION GAP | 8 | 4 - 11 mmol/L | [facility] | | | | | | LABORATORY | | | | | | SERVICES, | | | | | | CORE | | + +---------+ + + + | ANION | 11 | 4 - 11 mmol/L | [facility] | | | GAP(ALB | | | LABORATORY | | | CORRECTED) | | | SERVICES, | | | | | | CORE | | + +---------+ + + + | POTASSIUM | No Hemo | | [facility] | | | CMNT | | | LABORATORY | | | | | | SERVICES, | | | | | | CORE | | + +---------+ + + + | BILI T CMNT | No Hemo | | [facility] | | | | | | LABORATORY | | | | | | SERVICES, | | | | | | CORE | | + +---------+ + + + | AST CMNT | No Hemo | | [facility] | | | | | | LABORATORY | | | | | | SERVICES, | | | | | | CORE | | + +---------+ + + + + + | Specimen | + + | Blood | + + + + + | Narrative | Performed At | + + + | GFR is estimated using the MDRD equation recommended by the | [facility] | | National Kidney Disease Education Program. Estimated GFR | LABORATORY | | Interpretive Information: <60 mL/min/1.73 sq m | SERVICES, CORE | | Chronic Kidney Disease <15 mL/min/1.73 sq m | | | Kidney Failure Estimated GFR greater that 60 mL/min/1.73 sq m is of | [...] [facility] | [address] | [place] [address] | | | SERVICES, CORE | [address] | | | + + + + + documented in this encounter Visit Diagnoses + + | Diagnosis | + + | Cirrhosis of liver without ascites, unspecified hepatic cirrhosis type (HCC) - Primary | + + documented in this encounter"
--- OUTSIDE RECORDS SUMMARY | ~2019-01-07 | XMS | Encounter Summary ---
Demographics + + + | Address | [address] | | | [place] [address] | + + + | Home Phone | | + + + | Preferred Language | Unknown | + + + | Marital Status | Single | + + + | Amish Affiliation | Unknown | + + + | Race | Unknown | + + + | Ethnic Group | Unknown | + + + Author + + + | Author | [facility] | | | and [place] | + + + | Organization | [facility] | | [...] Team Providers + +------+ + | Care Food Porter Name | Role | Phone | + [...] | | | | | | | (K74.60), | | | | | | | Esophageal | | | | | | | varices | | | | | | | determined | | | | | | | by endoscopy | | | | | | | (HCC) | | | | | | | (I85.00), | | | | | | | Marijuana | | | | | | | use, | | | | | | | continuous | | | | | | | (F12.90) | | | | | | | Procedures | | | | | | | MO | | | | | | | ESOPHAGOGAST | | | | | | | RODUODENOSCO | | | | | | | PY TRANSORAL | | | | | | | DIAGNOSTIC | | | | | | | MO EGD | | | | | | | TRANSORAL | | | | | | | BIOPSY | | | | | | | SINGLE/MULTI | | | | | | | PLE MO | | | | | | | ANESTH,UGI | | | | | | | ENDOSCOPY | | | | | | | MO EGD BAND | | | | | | | LIGATION | | | | | | | ESOPHGEAL/GA | | | | | | | STRIC | | | | | | | VARICES EGD | | | +--------+--------+ + + + + Encounter Details +--------+---------+ + + + | Date | Type | Department | Care Team | Description | +--------+---------+ + + + | 07/27/ | Surgery | [facility] | Donell Hunt MD | EGD | | 2017 | | [facility] | [address] | | | | | [address] | [place], [place] | | | | | [place], [place] | [address] | | | | | [address] | [phone] | | | | | [phone] | | | +--------+---------+ + + + [...] + + + | Blood Pressure | 161/86 | 07/27/2016 10:00 AM | | | | | PDT | | + + + + + | Pulse | 69 | 07/27/2016 10:00 AM | | | | | PDT | | + + + + + | Temperature | 36.6 C (97.9 F) | 07/27/2016 9:18 AM | | | | | PDT | | + + + + + | Respiratory Rate | 16 | 07/27/2016 9:18 AM | | | | | PDT | | + + + + + | Oxygen Saturation | 96% | 07/27/2016 10:00 AM | | | | | PDT | | + + + + + | Inhaled Oxygen | - | - | | | Concentration | | | | + + + + + | Weight | 98.1 kg (216 lb 5 | 07/27/2016 8:32 AM | | | | oz) | PDT | | + + + + + | Height | 177.8 cm (5' 10") | 07/27/2016 8:32 AM | | | | | PDT | | + + + + + | Body Mass Index | 31.04 | 07/27/2016 8:32 AM | | | | | PDT | | + + + + + documented in this encounter Discharge Instructions Instructions Jodi Granados RN - 07/24/2016Patient Discharge Instructions after an Endos copy Procedure ? You may resume your regular diet after discharge. ? Do not drive, operate machinery, make critical decisions or do activities that require co ordination or balance for 24hrs. ? Resume normal medications unless otherwise instructed. ? If biopsies were taken, the physician s office will contact you within 7-10 days. ? If a colonoscopy was performed, then you may continue to expel large amounts of air from your rectum. Please call the physician who did your procedure at [phone] if you have any questions or experience any of the following: ? Increasing abdominal pain, nausea, or vomiting. ? Chills and fever over 101F. ? New abdominal swelling or bloating. ? Signs of rectal bleeding (black or red stool). If you cannot get a hold of your physician, then call the [facility] [phone] . If necessary, report to the Emergency Department at [facility]. Quit smoking: If you smoke or have smoked within the last year, quitting is the most import ant thing you can do to protect and improve your health. documented in this encounter Medications at Time of Discharge [...] the skin 2 | | | | 8 | | 100 units/mL | times daily. | | | | | | injection (pen) | | | | | | + + + +---------+--------+ + | Insulin Regular | Inject as directed | | 0 | | | | Human (NOVOLIN R | 3 times daily | | | | 8 | | PENFILL IJ) | (before meals). | | | | | | | Sliding scale | | | | | + [...] +---------+--------+ + documented as of this encounter Plan of Treatment +--------+---------+ + + + | Date | Type | Specialty | Care Team | Description | +--------+---------+ + + + | 04/06/ | Office | Cardiology | Lakisha Kahn DO | | | 2019 | Visit | | [address] | | | | | | [place] | | | | | | [address] | | | | | | | | +--------+---------+ + + + documented as of this encounter Procedures + +--------+ + + + | Procedure Name | Priori | Date/Time | Associated Diagnosis | Comments | | | ty | | | | + +--------+ + + + | EGD | | 07/27/2016 | Cirrhosis of liver | | | | | 8:58 AM | without ascites, | | | | | PDT | unspecified hepatic | | | | | | cirrhosis type (HCC) | | | | | | (K74.60), | | | | | | Esophageal varices | | | | | | determined by | | | | | | endoscopy (HCC) | | | | | | (I85.00), Marijuana | | | | | | use, continuous | | | | | | (F12.90) | | + +--------+ + + + +---+--------+ | | | | | Specia | | | l | | | Needs | | | | | | Insuli | | | n-depe | | | ndent | +---+--------+ +-----+--------+ +---+ + | EGD | Routin | 07/27/2016 | | Results for this | | | e | 8:52 AM | | procedure are in the | | | | PDT | | results section. | +-----+--------+ +---+ + documented in this encounter Results EGD (07/27/2016 8:52 AM PDT) + + | Specimen | + + | | + + + + -+ | Narrative | Performed At | + + -+ | | [facility] | | GastroenterologyPatient Name: Bret Yoder Date: 07/27/2016 | [place] | | 8:52 AMMRN: [id number] #: [id number] of : | | | 6Admit Type: AmbulatoryAge: 60Room: [facility]Gender: MaleNote | | | Status: FinalizedAttending MD: Donell Hunt , [facility]cedure: | | | Upper GI endoscopyIndications: For therapy of | | | esophageal varicesProviders: Donell Hunt MD, | | | Shirley Martinez RN, Mariama Monterroso | | | Thom, System Admin, Manuel Lindo MD | | | (Anesthesia Staff)Referring MD: Shakir Monzon (Referring | | | MD)Medicines: Monitored Anesthesia CareComplications: | | | No immediate complications.Procedure: Pre-Anesthesia | | | Assessment: - Prior to the procedure, a History and Physical was | | | performed, and patient medications and allergies were | | | reviewed. The patient is competent. The risks and benefits of | | | the procedure and the sedation options and risks were discussed | | | with the patient. All questions were answered and informed | | | consent was obtained. Patient identification and proposed | | | procedure were verified by the physician, the nurse, the | | | anesthesiologist and the atm technician in the pre-procedure area in the | | | procedure room. Mental Status Examination: alert and oriented. | | | Airway Examination: normal oropharyngeal airway and neck | | | mobility. Respiratory Examination: clear to auscultation. CV | | | Examination: normal. Prophylactic Antibiotics: The patient does | | | not require prophylactic antibiotics. Prior Anticoagulants: | | | The patient has taken no previous anticoagulant or antiplatelet | | | agents. ASA Grade Assessment: III - A patient with severe | | | systemic disease. After reviewing the risks and benefits, the patient | | | was deemed in satisfactory condition to undergo the procedure. | | | The anesthesia plan was to use monitored anesthesia care (MAC). | | | Immediately prior to administration of medications, the | | | patient was re-assessed for adequacy to receive sedatives. The | | | heart rate, respiratory rate, oxygen saturations, blood | | | pressure, adequacy of pulmonary ventilation, and response to | | | care were monitored throughout the procedure. The physical | | | status of the patient was re-assessed after the procedure. After | | | obtaining informed consent, the endoscope was passed under direct | | | vision. Throughout the procedure, the patient's blood pressure, | | | pulse, and oxygen saturations were monitored continuously. The | | | Endoscope was introduced through the mouth, and advanced to the | | | third part of duodenum. The upper GI endoscopy was | | | accomplished without difficulty. The patient tolerated the | | | procedure well.Findings: Grade II varices were found in the | | | lower third of the esophagus. They were 4 mm in largest | | | diameter. Three bands were successfully placed with complete | | | eradication, resulting in deflation of varices. There was no | | | bleeding during, and at the end, of the procedure. The exam of | | | the esophagus was otherwise normal. Diffuse mildly erythematous | | | mucosa without bleeding was found in the entire examined | | | stomach. The cardia and gastric fundus were normal on | | | retroflexion. The examined duodenum was normal.Impression: | | | - Grade II esophageal varices. Completely eradicated. Banded. - | | | Erythematous mucosa in the stomach. - Normal examined duodenum. | | | - No specimens collected.Recommendation: - Patient has a | | | contact number available for emergencies. The signs and | | | symptoms of potential delayed complications were discussed with the | | | patient. Return to normal activities tomorrow. Written discharge | | | instructions were provided to the patient. - Resume | | | previous diet. - Continue present medications. - No | | | aspirin, ibuprofen, naproxen, or other non-steroidal | | | anti-inflammatory drugs. - Repeat upper endoscopy in 3 months | | | for endoscopic band ligation. - Return to GI office PRN. - | | | The findings and recommendations were discussed with the | | | patient.Donell Hunt MD07/27/2016 9:17:44 AMThis report has been | | | signed electronically.Number of Addenda: 0Note Initiated On: 07/27/2016 | | | 8:52 AMTotal Procedure Duration: 0 hours 9 minutes 29 seconds Scope | | | In: 9:04:15 AMScope Out: 9:13:44 AM [facility] | | | [place], [address] [place] [address] | | | instructions were provided to the patient. | | | - Resume previous diet. | | | - Continue present medications. | | | - No aspirin, ibuprofen, naproxen, or other non-steroidal | | | anti-inflammatory drugs. | | | - Repeat upper endoscopy in 3 months for endoscopic band ligation. | | | - Return to GI office PRN. | | | - The findings and recommendations were discussed with the patient. | | |Donell Hunt MD | | |07/27/2016 9:17:44 AM | | |This report has been signed electronically. | | |Number of Addenda: 0 | | |Note Initiated On: 07/27/2016 8:52 AM | | |Total Procedure Duration: 0 hours 9 minutes 29 seconds | | |Scope In: 9:04:15 AM | | |Scope Out: 9:13:44 AM | | | [facility], [address] [place] [address] | | | [address] | | + + -+ + +---------+ + + | Performing | Address | City/State/Zipcode | Phone Number | | Organization | | | | + +---------+ + + | [facility] [place] | | | | + +---------+ + + documented in this encounter Visit Diagnoses Not on filedocumented in this encounter Administered Medications + +---------+ +--------+-------+------+ | Medication Order | MAR | Action | Dose | Rate | Site | | | Action | Date | | | | + +---------+ +--------+-------+------+ | lactated ringers (LR) infusion | New Bag | 07/28/19 | 1,000 | 100 | | | at 100 mL/hr, Intravenous, | | 17 8:52 | mLs | mL/hr | | | CONTINUOUS, Starting Wed07/27/16 | | AM PDT | | | | | at 0845, Pre-op | | | | | | + +---------+ +--------+-------+------+ + +---+ | | | + +---+ | ondansetron (ZOFRAN ODT) | | | disintegrating tablet 4 mg 4 mg, | | | Oral, EVERY 6 HOURS PRN, Nausea, | | | Vomiting, Starting Wed07/27/16 | | | at 0921, First line agent, | | | Post-op/Phase II | | + +---+ | | | + +---+ | ondansetron (ZOFRAN) injection | | | 4 mg 4 mg, Intravenous, EVERY 6 | | | HOURS PRN, Nausea, Vomiting, | | | Starting Wed07/27/16 at 0921, | | | First line agent. Use PO option | | | unless NPO status or unable to | | | tolerate., Post-op/Phase II | | + +---+ | | | + +---+ documented in this encounter
--- OUTSIDE RECORDS SUMMARY | ~2019-01-07 | XMS | Encounter Summary ---
Demographics + + + | Address | [address] | | | [place] [address] | + + + | Home Phone | | + + + | Preferred Language | Unknown | + + + | Marital Status | Single | + + + | Anabaptist Affiliation | Unknown | + + + | Race | Unknown | + + + | Ethnic Group | Unknown | + + + Author + + + | Author | [facility] | | | and [place] | + + + | Organization | [facility] | | [...] Team Providers + +------+ + | Care Professor Of Journalism Name | Role | Phone | + +------+ + | Shakir Monzon DO | PCP | | + +------+ + Encounter Details +--------+ + + + + | Date | Type | Department | Care Team | Description | +--------+ + + + + | 08/26/ | Abstract | [facility] | Donell Hunt MD | | | 2017 | | GASTROENTEROLOGY | [address] | | | | | [address] [facility] | [place] | | | | | [address] | [address] | | | | | [address] | [phone] | | | | | [phone] | | | +--------+ + + + [...] [place] | | | | | | [address] | | | | | | | | +--------+---------+ + + + documented as of this encounter Visit Diagnoses Not on filedocumented in this encounter"
--- OUTSIDE RECORDS SUMMARY | ~2019-01-07 | XMS | Encounter Summary ---
Demographics + + + | Address | [address] | | | [place] [address] | + + + | Home Phone | | + + + | Preferred Language | Unknown | + + + | Marital Status | Single | + + + | Adventism Affiliation | NRP | + + + | Race | or | + + + | Ethnic Group | Not or | + + + Author + + + | Author | [facility] [employer] [facility] | + + + | Organization | [facility] [employer] [facility] | + + + | Address | Unknown | + + + | Phone | Unavailable | + + + Support + + +---------+ + | Name | Relationship | Address | Phone | + + +---------+ + | Mayr Medellin | ECON | Unknown | | + + +---------+ + Care Team Providers + +------+ + | Care Primary School Teacher Librarian Name | Role | Phone | + +------+ + | Shakir Monzon MD | PCP | | + +------+ + Reason for Visit + + + | Reason | Comments | + + + | Medical Records | CAR GEN Records Checklist | | Review | | + + + Encounter Details +--------+ + + + + | Date | Type | Department | Care Team | Description | +--------+ + + + + | 05/21/ | Abstract | Cardiology - | Unknown . | Medical Records | | 2018 | | [facility] [address] [facility] | | Review (CAR GEN | | | | [address] | | Records Checklist) | | | | Mailcode: [id number] | | | | | | [facility] | | | | | | [address] [place], | | | | | | [place] [address] | | | | | | [phone] | | | +--------+ + + + [...] + + documented as of this encounter Progress Santosh Borrego - 05/21/2017 8:24 AM PDT General Cardiology New Patient Record Check List Procedure Where/Date Date requested Report received? Y/N, Where? Imaging received? CD/ IMPAX/Not Available Comments Referring Provider notes Shakir Monzon Yes, attached below N/A External Referral Last EKG (REPORT ONLY) Note: Tracings needed if being seen for abnormal ECG [place] 04/2017 Yes, in Care EW and attached below N/A Urgent fax request sent for tracings [phone] Last Echo images and report TTE [place] 04/2017 Yes, in Care EW and attached below Yes, in impax Urgent fax request sent to push im ages [phone] Last Stress Test images and report Exercise Stress Test No Last Cardiac Catheterization images and report [place] 04/2017 yes, in Care EW and attached below Yes, in impax Urgent fax request sent to push i mages [phone] Last Holter or Event monitor report only No N/A Labs (BMP, Lipids, TSH, Hemoglobin A1C in last 6 months) [place] [facility] Yes, in Care EW N/A Last Device Check (schedule device check if due) No N/A Last Cardiac MRI report and images if available No Cardiac CTA report and images if available No Patient Preferred Lab PCP Office N/A N/A N/A Additional Comments: documented in this encount er Plan of Treatment +--------+ + + + [...]
--- OUTSIDE RECORDS SUMMARY | ~2019-01-07 | XMS | Encounter Summary ---
Demographics + + + | Address | [address] | | | [place] [address] | + + + | Home Phone | | + + + | Preferred Language | Unknown | + + + | Marital Status | Single | + + + | Christian Affiliation | Unknown | + + + | Race | Unknown | + + + | Ethnic Group | Unknown | + + + Author + + + | Author | [facility] | | | and [place] | + + + | Organization | [facility] | | | [...] Team Providers + +------+ + | Care Photography Intern Name | Role | Phone | + +------+ + | Shakir Monzon DO | PCP | | + +------+ + Reason for Referral Diagnostic/Screening (Routine) +--------+--------+ + + + + | Status | Reason | Specialty | Diagnoses / | Referred By | Referred To | | | | | Procedures | Contact | Contact | +--------+--------+ + + + + | Closed | | Radiology | Diagnoses | | [facility] | | | | | Hepatic | [place], | [address] | | | | | cirrhosis, | [place], | [place], | | | | | unspecified | 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 [address] | [place] | | | | | hepatic | [place], [place] | [address] | | | | | cirrhosis | [address] | Phone: | | | | | type (HCC) | [place], [place] | [phone] | | | | | Elevated AFP | [address] | Fax: | | | | | Procedures | Phone: | [phone] | | | | | MRI Liver | [phone] | | | | | | w wo | Fax: | | | | | | Contrast MD | [phone] | | | | | | MRI, | | | | | | | ABDOMEN, | | | | | | | COMBO | | | +--------+--------+ + + + + Reason for Visit Auth/Cert +--------+--------+ + + + + | Status | Reason | Specialty | Diagnoses / | Referred By | Referred To | | | | | Procedures | Contact | Contact | +--------+--------+ + + + + | | | | | | | +--------+--------+ + + + + Encounter Details +--------+ + + + + | Date | Type | Department | Care Team | Description | +--------+ + + + + | 04/06/ | Hospital | [facility] | [facility], | Hepatic cirrhosis, | | 2017 | Encounter | MED CTR MRI [address] | [place], 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 [address] | unspecified hepatic | | | | [place], | [place], [place] [address] | cirrhosis type | | | | [place] [address] | [place], [place] | (HCC); Elevated AFP | | | | [phone] | [address] | | | | | | | [...] tablet | Daily. | | | | 7 | + + + +---------+--------+ + | cholecalciferol | Take 5,000 Units by | | 0 | | | | (VITAMIN D-3) 5000 | mouth Daily. | | | | 8 | | units CAPS | | | | | | + + + +---------+--------+ + | glipiZIDE | Take 10 mg by mouth | | 0 | | | | (GLUCOTROL XL) 10 MG | daily (with | | | | 7 | | 24 hr tablet | breakfast). | | | | | + [...] tablet | Daily. | | | | 7 | + + + +---------+--------+ + | [...] | | | (XIFAXAN) 550 mg | Daily. | | | | 7 | | TABS | | | | | | + + + +---------+--------+ + | terbinafine | Apply topically as | | 0 | | | | (LAMISIL) 1% cream | needed. | | | | 7 | + + + +---------+--------+ + documented as of this encounter Progress Notes [place] ARNP - 04/07/2016 11:17 AM PST Quick Note: Please schedule appointment. Thank you documented in this encounter Plan of Treatment +--------+---------+ + + + | Date | Type | Specialty | Care Team | Description | +--------+---------+ + + + | 04/06/ | Office | Cardiology | Lakisha Kahn DO | | | 2019 | Visit | | [address] | | | | | | [place] | | | | | | [id number] | | | | | | | | +--------+---------+ + + + documented as of this encounter Procedures + +--------+ + + + | Procedure Name | Priori | Date/Time | Associated Diagnosis | Comments | | | ty | | | | + +--------+ + + + | MRI LIVER W WO | Routin | 04/06/2016 | Hepatic cirrhosis, | Results for this | | CONTRAST | e | 12:11 PM | unspecified hepatic | procedure are in the | | | | PST | cirrhosis type | results section. | | | | | (HCC) Elevated AFP | | + +--------+ + + + documented in this encounter Results MRI Liver w wo Contrast (04/06/2016 12:11 PM PST) + + | Specimen | + + | | + + + + + | Narrative | Performed At | + + + | EXAM: MRI LIVER W WO CONTRAST dated 04/06/2016 10:58 AM HISTORY: | [facility] | | elevated AFP and cirrhosis of liver COMPARISON: Ultrasound of | . GABRIEL | | the abdomen dated November 27, 2015. CT abdomen abdomen and pelvis | [facility] | | dated July 25, 2014. Both of these are from an outside institution. | - IMAGING | | TECHNIQUE: Multiplanar multisequence MR imaging of the the liver. | | | This is performed prior to and following the intravenous | | | administration of 10 cc of Eovist. Imaging is performed on a 3 Marilee | | | MRI. FINDINGS: Liver: There is a nodular contour of the | | | liver. There is no fatty infiltration of the liver. There is a 6 | | | mm simple cyst in segment 8 of the liver. There is a 5 mm cyst | | | adjacent to the gallbladder fossa. There is a 4 mm focus of | | | hypervascular enhancement in the periphery of the right lobe between | | | segments 5 and 6. It is T2 hyperintense and is T1 hypointense. It | | | fades to equilibrium with liver parenchyma on delayed phases. | | | Other: There is a 4 mm nondependent focus in the gallbladder lumen. | | | The gallbladder is nondistended. There are multiple layering | | | gallstones in the gallbladder neck. The bile ducts are not dilated. | | | The pancreatic duct is not dilated. There are 4 small T2 | | | hyperintensities in the pancreatic parenchyma. One is in the mid | | | body adjacent to the pancreatic duct. 2. In the pancreatic head | | | medially. One is in the uncinate process. All measure about 3 mm. | | | There is no abnormal parenchymal enhancement throughout the | | | pancreas. There is a cyst in the left kidney. The kidneys are | | | otherwise unremarkable. There is splenomegaly. There are | | | splenorenal collaterals. There are periesophageal collaterals. | | | There may be esophageal varices. No aneurysmal dilatation of the | | | abdominal aorta. IMPRESSION - Cirrhosis and portal | | | hypertension. There are 2 small cysts in the liver. There is | | | one hypervascular focus that is likely vascular anomaly or a flash | | | enhancing hemangioma. There are no suspicious liver lesions. | | | BIRADS Category 2: Probably benign. Probable cholesterol polyp in | | | the gallbladder. This does not require follow-up. | | | Recommendation: Consider follow-up MRI in one year to evaluate the | | | pancreatic abnormalities. Continue surveillance of the liver. | | | Dictated and Signed by: Bret Goldman MD Electronically signed: | | | 04/06/2016 2:42 PM | | + + + + + | Procedure Note | + + | Harjit, Rad Results In - 04/06/2016 2:45 PM PST EXAM: MRI LIVER W WO CONTRAST dated | | 04/06/2016 10:58 AMHISTORY: elevated AFP and cirrhosis of liverCOMPARISON: Ultrasound of | | the abdomen dated November 27, 2015. CT abdomenabdomen and pelvis dated July 25, 2014. | | Both of these are from an outsideinstitution.TECHNIQUE: Multiplanar multisequence MR | | imaging of the the liver. This isperformed prior to and following the intravenous | | administration of 10 cc ofEovist. Imaging is performed on a 3 Marilee MRI.FINDINGS: Liver: | | There is a nodular contour of the liver. There is no fatty infiltrationof the liver. | | There is a 6 mm simple cyst in segment 8 of the liver. There maya 5 mm cyst adjacent to | | the gallbladder fossa. There is a 4 mm focus ofhypervascular enhancement in the | | periphery of the right lobe between segments 5and 6. It is T2 hyperintense and is T1 | | hypointense. It fades to equilibriumwith liver parenchyma on delayed phases.Other: | | There is a 4 mm nondependent focus in the gallbladder lumen. Thegallbladder is | | nondistended. There are multiple layering gallstones in thegallbladder neck. The bile | | ducts are not dilated. The pancreatic duct is notdilated. There are 4 small T2 | | hyperintensities in the pancreatic parenchyma. One is in the mid body adjacent to the | | pancreatic duct. 2. In the pancreatichead medially. One is in the uncinate process. | | All measure about 3 mm. Thereis no abnormal parenchymal enhancement throughout the | | pancreas. There is a cystin the left kidney. The kidneys are otherwise unremarkable. | | There issplenomegaly. There are splenorenal collaterals. There are | | periesophagealcollaterals. There may be esophageal varices. No aneurysmal dilatation | | of theabdominal aorta.IMPRESSION -Cirrhosis and portal hypertension.There are 2 small | | cysts in the liver.There is one hypervascular focus that is likely vascular anomaly or a | | flashenhancing hemangioma.There are no suspicious liver lesions.BIRADS Category 2: | | Probably benign.Probable cholesterol polyp in the gallbladder. This does not require | | follow-up.Recommendation: Consider follow-up MRI in one year to evaluate the | | pancreaticabnormalities. Continue surveillance of the liver.Dictated and Signed by: | | Bret Goldman MD Electronically signed: 04/06/2016 2:42 PM | |is no abnormal parenchymal enhancement throughout the pancreas. There is a cyst | |in the left kidney. The kidneys are otherwise unremarkable. There is | |splenomegaly. There are splenorenal collaterals. There are periesophageal | |collaterals. There may be esophageal varices. No aneurysmal dilatation of the | |abdominal aorta. | | | |IMPRESSION - | | | |Cirrhosis and portal hypertension. | | | |There are 2 small cysts in the liver. | | | |There is one hypervascular focus that is likely vascular anomaly or a flash | |enhancing hemangioma. | | | |There are no suspicious liver lesions. | | | |BIRADS Category 2: Probably benign. | | | |Probable cholesterol polyp in the gallbladder. This does not require follow-up. | | | |Recommendation: Consider follow-up MRI in one year to evaluate the pancreatic | |abnormalities. Continue surveillance of the liver. | | | |Dictated and Signed by: Bret Goldman MD | | Electronically signed: 04/06/2016 2:42 PM | + + + + + + + | Performing | Address | City/State/Zipcode | Phone Number | | Organization | | | | + + + + + | [facility] | [address] | [place] | [phone] | | [facility] | | [address] | | | - IMAGING | | | | + + + + + documented in this encounter Visit Diagnoses + + | Diagnosis | + + | Hepatic cirrhosis, unspecified hepatic cirrhosis type (HCC) | + + | Elevated AFP Other nonspecific findings on examination of blood | + + documented in this encounter Administered Medications + +--------+ +--------+------+------+ | Medication Order | MAR | Action | Dose | Rate | Site | | | Action | Date | | | | + +--------+ +--------+------+------+ | gadoxetate (EOVIST) injection | Given | 04/06/19 | 10 mLs | | | | 10 mL 10 mL, Intravenous, ONCE | | 17 12:00 | | | | | PRN, Other, Starting 04/06/16 | | PM PST | | | | | at 1200, For 1 dose, MRI | | | | | | + +--------+ +--------+------+------+ +---+---+ | | | +---+---+ documented in this encounter"
--- OUTSIDE RECORDS SUMMARY | ~2019-01-07 | XMS | Encounter Summary ---
Demographics + + + | Address | [address] | | | [place] [address] | + + + | Home Phone | | + + + | Preferred Language | Unknown | + + + | Marital Status | Single | + + + | Mu-Ism Affiliation | Unknown | + + + | Race | Unknown | + + + | Ethnic Group | Unknown | + + + Author + + + | Author | [facility] | | | and [place] | + + + | Organization | [facility] | | | [...] Team Providers + +------+ + | Care Shop Director Name | Role | Phone | + [...] | | | | | | | MA | | | | | | | ESOPHAGOGAST | | | | | | | RODUODENOSCO | | | | | | | PY TRANSORAL | | | | | | | DIAGNOSTIC | | | | | | | MA EGD | | | | | | | TRANSORAL | | | | | | | BIOPSY | | | | | | | SINGLE/MULTI | | | | | | | PLE MA | | | | | | | ANESTH,UGI | | | | | | | ENDOSCOPY | | | | | | | MA EGD BAND | | | | | [...] | +--------+ + + + + | 07/27/ | Anesthesia | [facility] | Manuel Lindo MD | | | 2017 | Event | [facility] | [address] | | | | | [address] | [place], [place] | | | | | [place], [place] | [address] | | | | | [address] | | | | | | [phone] | | | +--------+ + + + + Anesthesia Record + + + + + | Procedure Name | Responsible | Anesthesia Start | Anesthesia Stop Time | | | Anesthesiologist | Time | | + + + + + | EGD (N/A Mouth) | Manuel Lindo MD | 07/27/16 0858 | 07/27/16920 | + + + + + +----+---+ + + | Da | T | Event | Comment | | te | i | | | | | m | | | | | e | | | +----+---+ + + | 06 | 0 | | | | /1 | 8 | | | | 2/ | 2 | | | | 20 | 2 | | | | 17 | | | | +----+---+ + + | | 0 | An Checkout | Pre-use anesthesia machine/equipment checkout. | | | 8 | | | | | 5 | | | | | 7 | | | +----+---+ + + | | 0 | An Start | Reassessment prior to anesthesia induction/procedure. | | | 8 | | | | | 5 | | | | | 8 | | | +----+---+ + + | | 0 | Pre-Procedu | | | | 8 | ral Timeout | | | | 5 | Completed | | | | 9 | | | +----+---+ + + | | 0 | An | | | | 9 | Induction | | | | 0 | | | | | 2 | | | +----+---+ + + | | 0 | An Stop | Patient handed off to recovery nurse. | | | 2 | | | | | 1 | | | +----+---+ + + +------+ | Meds | +------+ + +---------+ | Name | Total | + +---------+ | propofol | 150 mg | + +---------+ | propofol | 98.1 mg | + +---------+ | lidocaine 1% | 2 mL | + +---------+ | lactated ringers (LR) infusion | 300 mL | + +---------+ + + | Name | + + [...] | | | | | | [place] | | | | | | [id number] | | | | | | | | +--------+---------+ + + + documented as of this encounter Visit Diagnoses Not on filedocumented in this encounter Administered Medications + +--------+ +-------+------+------+ | Medication Order | MAR | Action | Dose | Rate | Site | | | Action | Date | | | | + +--------+ +-------+------+------+ | lidocaine (PF) 1% injection | Given | 07/28/19 | 2 mLs | | | | Infiltration, PRN, Starting Mon | | 17 8:59 | | | | | 07/27/16 at 0859, Anesthesia | | AM PDT | | | | | Intra-op | | | | | | + +--------+ +-------+------+------+ +---+---+ | | | +---+---+ + +-------+ +-------+---+---+ | propofol (DIPRIVAN) injection | Given | 07/28/19 | 50 mg | | | | Intravenous, PRN, Starting Mon | | 17 9:03 | | | | | 07/27/16 at 0859, Anesthesia | | AM PDT | | | | | Intra-op | | | | | | + +-------+ +-------+---+---+ +-------+ +--------+---+---+ | Given | 07/28/19 | 100 mg | | | | | 17 9:02 | | | | | | AM PDT | | | | +-------+ +--------+---+---+ +---+---+ | | | +---+---+ + +---------+ + +-------+---+ | propofol (DIPRIVAN) injection | New Bag | 07/28/19 | 100 | 58.9 | | | Intravenous, CONTINUOUS PRN, | | 17 9:04 | mcg/kg/m | mL/hr | | | Starting 07/27/16 at 0904, | | AM PDT | in | | | | Anesthesia Intra-op | | | | | | + +---------+ + +-------+---+ +---+---+ | | | +---+---+ documented in this encounter"
--- OUTSIDE RECORDS SUMMARY | ~2019-01-07 | XMS | Encounter Summary ---
Demographics + + + | Address | [address] | | | [place] [address] | + + + | Home Phone | | + + + | Preferred Language | Unknown | + + + | Marital Status | Single | + + + | Mandaen Affiliation | NRP | + + + | Race | or | + + + | Ethnic Group | Not or | + + + Author + + + | Author | [facility] [employer] [facility] | + + + | Organization | [facility] [employer] [facility] | + + + | Address | Unknown | + + + | Phone | Unavailable | + + + Support + + +---------+ + | Name | Relationship | Address | Phone | + + +---------+ + | Mary Medellin | ECON | Unknown | | + + +---------+ + Care Team Providers + +------+ + | Care Mixed Crop [employer] Livestock Farm Worker Name | Role | Phone | + +------+ + | Shakir Monzon MD | PCP | | + +------+ + Encounter Details +--------+ + + + + | Date | Type | Department | Care Team | Description | +--------+ + + + + | 05/10/ | Telephone | [facility] | Bessy Solano, | | | 2017 | | [place] [address] | PA-C [address] | | | | | [address] | [address] | | | | | Mailcode: [id number] | [place], [place] | | | | | [place] [facility] | [address] | | | | | and [place], | [phone] | | | | | [address] | | | | | | [place], [place] | | | | | | [address] | | | | | | [phone] | | | +--------+ + + + [...] | + + + + + | [facility] | [address] | [place] [address] | | | SERVICES, CORE | PARVEEN [...] | + + + + + | [facility] | [address] | [place] [address] | | | SERVICES, CORE | [address] [...] | | | LABORATORY | | | ALGERIAN | | | SERVICES, | | | [...] [facility] | [address] | [place] [address] | | | SERVICES, CORE | [address] | | | + + + + + documented in this encounter Visit Diagnoses + + | Diagnosis | + + | Cirrhosis of liver without ascites, unspecified hepatic cirrhosis type (HCC) - Primary | + + documented in this encounter"
--- OUTSIDE RECORDS SUMMARY | ~2019-01-07 | XMS | Encounter Summary ---
Demographics + + + | Address | [address] | | | [place] [address] | + + + | Home Phone [...] + + + | Author | [facility] | | | and [place] | + + + | Organization | [facility] | | | [...] Team Providers + +------+ + | Care Automatic Lathe Setter Name | Role | Phone | + [...] | | | | | | | use (F12.10) | | | | | | | Procedures | | | | | | | OR | | | | | | | ESOPHAGOGAST | | | | | | | RODUODENOSCO | | | | | | | PY TRANSORAL | | | | | | | DIAGNOSTIC | | | | | | | OR EGD | | | | | | | TRANSORAL | | | | | | | BIOPSY | | | | | | | SINGLE/MULTI | | | | | | | PLE OR | | | | | | | ANESTH,UGI | | | | | | | ENDOSCOPY | | | | | | | EGD | | | +--------+--------+ + + + + Encounter Details +--------+---------+ + + + | Date | Type | Department | Care Team | Description | +--------+---------+ + + + | 05/05/ | Surgery | [facility] | Donell Hunt MD | EGD | | 2017 | | [facility] | [address] | | | | | [address] | [place] | | | | | [place] | [address] | | | | | [address] | [phone] | | | | | [phone] | | | +--------+---------+ + + + [...] + + + | Blood Pressure | 160/84 | 05/05/2016 11:04 AM | took manual blood | | | | PDT | pressure, B/P | | | | | improved. | + + + + + | Pulse | 73 | 05/05/2016 11:00 AM | | | | | PDT | | + + + + + | Temperature | 36.3 C (97.3 F) | 05/05/2016 10:11 AM | | | | | PDT | | + + + + + | Respiratory Rate | 16 | 05/05/2016 11:04 AM | | | | | PDT | | + + + + + | Oxygen Saturation | 99% | 05/05/2016 11:00 AM | | | | | PDT | | + + + + + | Inhaled Oxygen | - | - | | | Concentration | | | | + + + + + | Weight | 96.7 kg (213 lb 3.2 | 05/05/2016 8:18 AM | | | | oz) | PDT | | + + + + + | Height | 180.3 cm (5' 11") | 05/05/2016 8:18 AM | | | | | PDT | | + + + + + | Body Mass Index | 29.74 | 05/05/2016 8:18 AM | | | | | PDT | | + + + + + documented in this encounter Discharge Instructions Instructions Donell Hunt MD - 05/04/2016Patient Discharge Instructions after an Endosco py Procedure ? You may resume your regular [...] the physician who did your procedure at [phone] if you have any questions or experience any of the following: ? Increasing abdominal pain, nausea, or vomiting. ? Chills and fever over 101F. ? New abdominal swelling or bloating. ? Signs of rectal bleeding (black or red stool). If you cannot get a hold of your physician, then call the [facility] [phone] . If necessary, report to the Emergency Department at [facility]. Quit smoking: If you smoke or [...] | | | | | | [place] | | | | | | [address] | | | | | | | | +--------+---------+ + + + documented as of this encounter Procedures + +--------+ + + + | Procedure Name | Priori | Date/Time | Associated Diagnosis | Comments | | | ty | | | | + +--------+ + + + | EGD | Routin | 05/05/2016 | | Results for this | | | e | 9:49 AM | | procedure are in the | | | | PDT | | results section. | + +--------+ + + + | EGD | | 05/05/2016 | Cirrhosis of liver | | | | | 9:46 AM | without ascites, | | | | | PDT | unspecified hepatic | | | | | | cirrhosis type (HCC) | | | | | | (K74.60), Marijuana | | | | | | use (F12.10) | | + +--------+ + + + +---+--------+ | | | | | Specia | | | l | | | Needs | | | | | | Insuli | | | n-depe | | | ndent | +---+--------+ + +--------+ +---+ + | POC GLUCOSE | Routin | 05/05/2016 | | Results for this | | | e | 8:34 AM | | procedure are in the | | | | PDT | | results section. | + +--------+ +---+ + | SURGICAL PATHOLOGY | Routin | 05/05/2016 | | Results for this | | EXAM | e | 12:00 AM | | procedure are in the | | | | PDT | | results section. | + +--------+ +---+ + documented in this encounter Results EGD (05/05/2016 9:49 AM PDT) + + | Specimen | + + | | + + + + -+ | Narrative | Performed At | + + -+ | | [facility] | | GastroenterologyPatient Name: Bret EspinalCastro Date: 05/05/2016 | [facility] | | 9:49 AMMRN: [id number] #: [id number] of : | | | 6Admit Type: AmbulatoryAge: 60Room: [facility] 02Gender: MaleNote | | | Status: FinalizedAttending MD: Donell Hunt MDProcedure: | | | Upper GI endoscopyIndications: For therapy of | | | esophageal varicesProviders: Donell Hunt MD, Jennifer | | | Gurdeep RN, Daniella Yousif, [employer] Insurance Sales Representative, | | | Preston Wheat MD (Anesthesia Staff)Referring MD: Shakir Carias | | | Nicolás (Referring MD)Medicines: Monitored Anesthesia | | | CareComplications: No immediate complications.Procedure: | | | Pre-Anesthesia Assessment: - Prior to the procedure, a History | | | and Physical was performed, and patient medications and | | | allergies were reviewed. The patient is competent. The risks | | | and benefits of the procedure and the sedation options and | | | risks were discussed with the patient. All questions were | | | answered and informed consent was obtained. Patient identification and | | | proposed procedure were verified by the physician, the nurse, | | | the anesthesiologist and the avionics systems technician in the pre-procedure | | | area in the endoscopy suite. Mental Status Examination: alert | | | and oriented. Airway Examination: normal oropharyngeal airway | | | and neck mobility. Respiratory Examination: clear to | | | auscultation. CV Examination: normal. Prophylactic Antibiotics: | | | The patient does not require prophylactic antibiotics. Prior | | | Anticoagulants: The patient has taken no previous anticoagulant or | | | antiplatelet agents. ASA Grade Assessment: III - A patient with | | | severe systemic disease. After reviewing the risks and | | | benefits, the patient was deemed in satisfactory condition to | | | undergo the procedure. The anesthesia plan was to use monitored | | | anesthesia care (MAC). Immediately prior to administration of | | | medications, the patient was re-assessed for adequacy to | | | receive sedatives. The heart rate, respiratory rate, oxygen | | | saturations, blood pressure, adequacy of pulmonary ventilation, and | | | response to care were monitored throughout the procedure. The | | | physical status of the patient was re-assessed after the | | | procedure. After obtaining informed consent, the endoscope was | | | passed under direct vision. Throughout the procedure, the | | | patient's blood pressure, pulse, and oxygen saturations were | | | monitored continuously. The Endoscope was introduced through | | | the mouth, and advanced to the third part of duodenum. The | | | upper GI endoscopy was accomplished without difficulty. The | | | patient tolerated the procedure well.Findings: Grade II varices | | | were found in the lower third of the esophagus. They were 5 mm | | | in largest diameter. Four bands were successfully placed with | | | complete eradication, resulting in deflation of varices. There was no | | | bleeding during, and at the end, of the procedure. The | | | Z-line was irregular and was found 36 cm from the incisors. Will | | | perform biopsies of GEJ and irregular Z line at next EGD due to the | | | presence of large varices on this study. Patchy | | | candidiasis was found in the lower third of the esophagus. | | | Diffuse moderately erythematous mucosa without bleeding was found in | | | the entire examined stomach. Biopsies were taken with a cold | | | forceps for histology. Verification of patient identification | | | for the specimen was done by the physician and nurse using the | | | patient's name and date. Estimated blood loss was | | | minimal. Type 1 gastroesophageal varices (GOV1, esophageal | | | varices which extend along the lesser curvature) with no | | | bleeding were found in the gastric fundus. There were no | | | stigmata of recent bleeding. They were 3 mm in largest | | | diameter. No other significant abnormalities were identified in | | | a careful examination of the stomach. The examined | | | duodenum was normal.Impression: - Grade II esophageal varices. | | | Completely eradicated. Banded. - Z-line irregular, 36 cm from | | | the incisors. - Monilial esophagitis. - Erythematous | | | mucosa in the stomach. Biopsied. - Type 1 gastroesophageal | | | varices (GOV1, esophageal varices which extend along the lesser | | | curvature), without bleeding. - Normal examined | | | duodenum.Recommendation: - Patient has a contact number | | | available for emergencies. The signs and symptoms of potential | | | delayed complications were discussed with the patient. Return | | | to normal activities tomorrow. Written discharge instructions | | | were provided to the patient. - Resume previous diet. - | | | Continue present medications. - Await pathology results. - | | | Repeat upper endoscopy in 3 months for endoscopic band ligation. | | | - Return to GI clinic PRN. - Diflucan (fluconazole) 100 mg PO | | | daily for 10 days. - The findings and recommendations were | | | discussed with the patient.Donell Hunt MD05/05/2016 10:12:13 | | | AMNumber of Addenda: 0Note Initiated On: 05/05/2016 9:49 AMTotal | | | Procedure Duration: 0 hours 11 minutes 26 seconds Scope In: 9:54:42 | | | AMScope Out: 10:06:08 AM [facility], [facility] | | | [place], [place] [address] | | | instructions were provided to the patient. | | | - Resume previous diet. | | | - Continue present medications. | | | - Await pathology results. | | | - Repeat upper endoscopy in 3 months for endoscopic band ligation. | | | - Return to GI clinic PRN. | | | - Diflucan (fluconazole) 100 mg PO daily for 10 days. | | | - The findings and recommendations were discussed with the patient. | | |Donell Hunt MD | | |05/05/2016 10:12:13 AM | | |Number of Addenda: 0 | | |Note Initiated On: 05/05/2016 9:49 AM | | |Total Procedure Duration: 0 hours 11 minutes 26 seconds | | |Scope In: 9:54:42 AM | | |Scope Out: 10:06:08 AM | | | [facility], [address], [place] | | | [address] | | + + -+ + +---------+ + + | Performing | Address | City/State/Zipcode | Phone Number | | Organization | | | | + +---------+ + + | [facility] | | | | + +---------+ + + POC Glucose (05/05/2016 8:34 AM PDT) + +---------+ + + + | Component | Value | Ref Range | Performed | Pathologist | | | | | At | Signature | + +---------+ + + + | Glucose, | 291 (H) | 70 - 150 mg/dL | [facility] | | | POC [...] ST. | [address] | [place] | [phone] | | [facility] | | [address] | | | - LABORATORY | | | | + + + + + Surgical Pathology Exam (05/05/2016 12:00 AM PDT) + + | Specimen | + + | | + + + + + | Narrative | Performed At | + + + | SPECIMEN(S): A GASTRIC BIOPSY SPECIMEN SOURCE: A. GASTRIC | [facility] | | BIOPSY CLINICAL HISTORY: K74.60 (unspecified cirrhosis of liver), | [facility] | | F12.10 (cannabis abuse, uncomplicated) MICROSCOPIC DESCRIPTION: | | | Histologic sections of all submitted blocks are examined by light | | | microscopy. These findings, together with the gross examination, | | | support the pathologic diagnosis. FINAL PATHOLOGIC DIAGNOSIS: | | | Gastric biopsy: - Chronic gastritis with foci of mild to moderate | | | activity, intestinal metaplasia, and glandular atrophy. - Negative | | | for Helicobacter-type organisms by immunohistochemical stain. | | | CLR:[facility]:C2NR GROSS DESCRIPTION: Received in formalin labeled | | | "Bret Espinal" and "gastric bxs" on the requisition are six pink-flowers | | | tissue fragments measuring from 0.2-0.7 cm, submitted, all in (A1). | | | ka:CLR:[facility] ADDITIONAL NOTES: Immunohistochemical studies were | | | performed on this case with the appropriate negative and positive | | | controls that react as expected. This test was developed and its | | | performance characteristics determined by [facility]. It | | | has not been cleared or approved by the U.S. Food and Drug | | | Administration. The FDA has determined that such clearance or | | | approval is not necessary. This test is used for clinical purposes. | | | It should not be regarded as investigational or for research. | | | [facility] is certified under the Clinical Laboratory | | | Improvement Amendments of 1988 (CLIA) as qualified to perform high | | | complexity clinical laboratory testing PERFORMING LABORATORY: | | | Tissue processing and slide preparation were performed by [facility] | | | [facility], [address], [place] [address] | | | (Screen Printing Paster: Catrachito Ortiz M.D. CLIA#: [id number]). | | | Professional interpretation was performed by [facility], [address] | | [facility] [address], [place] [address] (Screen Printing Paster: Catrachito | | | Natalya Ortiz; CLIA#: [id number]). Diagnostician: | | | Mina Terrell MD Pathologist Electronically Signed | | | 05/07/2016 | | + + + + +---------+ + + | Performing | Address | City/State[facility] | Phone Number | | Organization | | | | + +---------+ + + | [facility] | | | | | [facility] | | | | + +---------+ + + documented in this encounter Visit Diagnoses Not on filedocumented in this encounter Administered Medications + +---------+ +------+-------+------+ | Medication Order | MAR | Action | Dose | Rate | Site | | | Action | Date | | | | + +---------+ +------+-------+------+ | lactated ringers (LR) infusion | New Bag | 05/06/19 | | 100 | | | at 100 mL/hr, Intravenous, | | 17 8:32 | | mL/hr | | | CONTINUOUS, Starting 05/05/16 | | AM PDT | | | | | at 0845, Pre-op | | | | | | + +---------+ +------+-------+------+ +---+---+ | | | +---+---+ documented in this encounter
--- OUTSIDE RECORDS SUMMARY | ~2019-01-07 | XMS | Encounter Summary ---
Demographics + + + | Address | [address] | | | [place] [address] | + + + | Home Phone | | + + + | Preferred Language | Unknown | + + + | Marital Status | Single | + + + | Restorationist Affiliation | Unknown | + + + | Race | Unknown | + + + | Ethnic Group | Unknown | + + + Author + + + | Author | [facility] | | | and [place] | + + + | Organization | [facility] | | [...] Team Providers + +------+ + | Care Diabetes Trainer Name | Role | Phone | + [...] + + | 04/28/ | Surgery | [facility] | Bright Triana MD | CV Cor Angio | | 2017 | | MED CTR CV INTRA OP | [address] | | | | | [address] | [place] | | | | | [place] | [id number] | | | | | [address] | | | | | | [phone] | | | +--------+---------+ + + + [...] might be different fro m the original. [place] HOSPITALIST TRANSFER SUMMARY Pt. Name/Age/: Behzad [...] Surgical History: Procedure Laterality Date COLONOSCOPY 2012 [place] UPPER GASTROINTESTINAL ENDOSCOPY N/A 05/05/2016 Procedure: EGD; Surgeon: Donell Hunt MD; Location: [facility] MEDICAL PROC[facility]URE [facility] UPPER GASTROINTESTINAL ENDOSCOPY N/A 07/27/2016 Procedure: EGD; Surgeon: Donell Hunt MD; Location: [facility] MED[facility] PROC[facility]URE [facility] UPPER GASTROINTESTINAL ENDOSCOPY N/A 12/10/2016 Procedure: EGD; Surgeon: Donell Hunt MD; Location: [facility] MEDICAL PROCEDURE UNIT FAMILY HISTORY: family history [...] 0348 Gram negative sepsis + BC in [place] results yesterday no help yet RN to check daily until final results Hepatic cirrhosis, unspecified hepatic cirrhosis type Chronic hepatitis C without hepatic coma (followed at [facility] treated 4 months ago with un [...] intervention might need to consider sending to [facility] due to higher risk Addendum (04/28/2017 12:49) Cardiac cath circumflex culprit lesion is tortuous and might be able to manage medically bu t if needs intervention would be rotoblation. I spoke with Dr Sharma and consensus is to sent to tertiary center. I called [facility] no ERCP available until Wednesday and I called [facility] they have waiting list but will call me back.I cancelled the CT to look for varices since we are in process of arranging transfer. Addendum (04/28/2017 16:03) [facility] no ERCP Doc till Wednesday [place] no bed [facility] will take him (I [...] for input(s): IRON, TIBC, PCTSAT, FERRITIN, TSH, XAYYLZMM24, FOLATE in the last 168 hours. Inflammatory [...] ABG No results for input(s): PHART, PO2ART, WYE6LHD, LXP0BOV, BEART, L9AIIJCR in the last 168 h ours. No results for input(s): SPECSOURCE, PHPOCB, PCO2, PO2, HCO3, TCO2, BEART, MRKN8WUI in the last 168 hours. Drug of [...] STONE. COMPARISON: Multiple priors. PROTOCOL: Coronal T2 director multimedia, axial T2 director multimedia, coronal 3D respiratory triggered, coronal T2 thin [...] Procedure Component Value Units Date/Time Culture, MRSA [[id number]] Collected: 04/27/17 022 Order Status: Canceled Lab Status: No result Specimen: Respiratory from Nares Culture, MRSA [[id number]] Collected: 04/27/17 015 Order Status: Completed Lab Status: Final result Updated: 04/28/17704 Specimen: Respiratory from Nares Culture Negative for MRSA by chromogenic agar method PROCEDURES AND CONSULTS: Cardiac Cath Dr Zachary Pratt PENDING RESULTS: DISPOSITION AND TRANSFER INSTRUCTIONS: Condition: Patient being transferred with condition improved NPO for now Going to [facility] to Dr Mely Quiroga MD [facility] [phone] Triage pager [phone] (this is a shared pager and is carried 07/09 by a Hospitalist) Personal [email or web address] [phone] Email [email or web address] Greater than 30 minutes were spent on discharge and coordination of post-hospital care. Electronically signed by: Paul Quiroga MD, 04/28/2017 16:08 [facility] (dot meytime meycritical meycontact) Reference. This is [...] this chart may have been created with [employer] voice recognition software. Occasi onal wrong-word or [...] might be different fro m the original. [place] HOSPITALIST PROGRESS NOTE Patient: Behzad Espinal Jr. : 1955: Age: 61 y.o. MedRec: [id number] PCP: Shakir Monzon DO Admission date: 04/26/2017 [...] for input(s): IRON, TIBC, PCTSAT, FERRITIN, TSH, SAYYZMMW11, FOLATE in the last 168 hours. Inflammatory [...] ABG No results for input(s): PHART, PO2ART, IQN9FWI, OZM3VVT, BEART, L3PJJARK in the last 168 h ours. No results for input(s): SPECSOURCE, PHPOCB, PCO2, PO2, HCO3, TCO2, BEART, LVIG5RRV in the last 168 hours. Drug of [...] dot micro, for reference below is dot [id number] URSR Microbiology Results (72 hrs) Procedure Component Value Units Date/Time Culture, MRSA [[id number]] Collected: 04/27/17 0151 Order Status: Completed Lab [...] ONE. COMPARISON: Multiple priors. PROTOCOL: Coronal T2 director multimedia, axial T2 director multimedia, coronal 3D res piratory triggered, coronal T2 [...] L/min (dot meyvent) Subjective CC Tfer from [place] for Chest and Abd pain with U/S [...] 0348 Gram negative sepsis + BC in [place] results yesterday no help yet RN to check daily until final results Hepatic cirrhosis, unspecified hepatic cirrhosis type Chronic hepatitis C without hepatic coma (followed at [facility] treated 4 months ago with un [...] intervention might need to consider sending to [facility] due to higher risk Addendum (04/28/2017 12:49) Cardiac cath circumflex culprit lesion is tortuous and might be able to manage medically bu t if needs intervention would be rotoblation. I spoke with Dr Sharma and consensus is to sent to tertiary center. I called [facility] no ERCP available until Wednesday and I called [facility] they have waiting list but will call me back.I cancelled the CT to look for varices since we are in process of arranging transfer. Addendum (04/28/2017 16:03) [facility] no ERCP Doc till Wednesday [place] no bed [facility] will take him (I [...] meycritical meysign) Paul Quiroga MD 04/28/2017 8:03 [facility] Reference. This is NOT part of the [...] this chart may have been created with [employer] voice recognition software. Occasi onal wrong-word or sound-alike substitutions may have occurred due to the inherent haas itations of voice recognition software. 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 Best possible LINTER DRIER OPERATOR medication list after pharmacy review: @[email or web address]@ Medication review performed and electronically signed by Ana Laura Coelho, [employer] 19:50 [facility] 20:05 Paul Acosta MD - 04/27/2017 8:39 AM PDT [place] HOSPITALIST PROGRESS NOTE Patient: Behzad Espinal Jr. : 1955: Age: 61 y.o. MedRec: [id number] PCP: Shakir Monzon DO Admission date: 04/26/2017 [...] for input(s): IRON, TIBC, PCTSAT, FERRITIN, TSH, ZUDXAZMC24, FOLATE in the last 168 hours. Inflammatory [...] ABG No results for input(s): PHART, PO2ART, QNL2LKA, AGS5GXA, BEART, R4GXYRVU in the last 168 h ours. No results for input(s): SPECSOURCE, PHPOCB, PCO2, PO2, HCO3, TCO2, BEART, GSMV7AYB in the last 168 hours. Drug of [...] dot micro, for reference below is dot [id number] URSR Microbiology Results (72 hrs) Procedure Component Value Units Date/Time Culture, MRSA [[id number]] Collected: 04/27/17 0151 Order Status: Sent Lab Status: In process Updated: 04/27/17218 Specimen: Respiratory from Nares Radiology results (more choices using dot risresults) Mri Mrcp Liver Wo Contrast Result Date: 04/26/2017 MRI MRCP LIVER WO CONTRAST 04/26/2017 12:17 PM HISTORY:?BILIARY OBSTRUCTION, RULE OUT CBD ST ONE. COMPARISON: Multiple priors. PROTOCOL: Coronal T2 director multimedia, axial T2 director multimedia, coronal 3D res piratory triggered, coronal T2 [...] L/min (dot meyvent) Subjective CC Tfer from [place] for Chest and Abd pain with U/S [...] hepatitis C without hepatic coma (followed at [facility] treated 4 months ago with un [...] texted Dr Pratt to call me (he inhalation therapy aide for sgy) Troponin recheck What untoward reaction? [...] meycritical meysign) Paul Quiroga MD 04/27/2017 8:40 [facility] Reference. This is NOT part of the [...] this chart may have been created with [employer] voice recognition software. Occasi onal wrong-word or [...] [place] | | | | | | [id number] | | | | | | | [...] + | [facility] | [address] | [place] | [phone] | | [facility] | | [address] | | | - LABORATORY | | [...] : 1955MEDICAL | | | RECORD NUMBER: [id number] OF PROCEDURE: 04/28/2017 | | | | | | PRIMARY CARE PROVIDER: Shakir Monzon | | | NAJMA EXEC. CREATIVE DIRECTOR: Bright Triana MD. PRE-PROCEDURE DIAGNOSIS: | | [...] | | | conclusions. Bright Triana MD [facility] | | | CenterDATE/TIME: 04/28/2017 11: 11:27 [...] | | |Bright Triana MD | | |[facility] | | |DATE/TIME: 04/28/2017 11:27 | [...] [address] | [place] | [phone] | | [facility] | | [address] | | | - LABORATORY | | [...] | 0.91 | 0.60 - 1.30 | [facility] | | | | | mg/dL | [facility] | | | | | | MEDICAL | | | | | | CENTER - | | | | | | LABORATORY | | + + + + + + | eGFR if not | >60Comment: GLOMERULAR | >=60 | [facility] | | | | FILTRATION | mL/min/1.73m2 | [facility] | | | [place] | RATE,ESTIMATED | | MEDICAL | | | | mL/min/1.76a0Xnkw than | | CENTER - | | [...] [address] | [place] | [phone] | | [facility] | | [address] | | | - LABORATORY | | [...] | | | | | | [employer] | | | | | [...] [address] | [place] | [phone] | | [facility] | | [address] | | | - LABORATORY | | [...] | | | | | | [employer] | | | | | [...] [address] | [place] | [phone] | | [facility] | | [address] | | | - LABORATORY | | [...] [address] | [place] | [phone] | | [facility] | | [address] | | | - LABORATORY | | [...] [address] | [place] | [phone] | | [facility] | | [address] | | | - LABORATORY | | [...] | | | | | | [employer] | | | | | [...] [address] | [place] | [phone] | | [facility] | | [address] | | | - LABORATORY | | [...] [address] JR. | | | Patient Number [id number] Date of Study | | | 04/27/2017 Visit Number [id number] Accession | | | [id number] Referring Physician LEATHA IVY Number | | | Date of 1955 Separating Machine Operator | | | Ted Blake Age 61 year(s) | | | Interpreting MONICA LUNA | | | Cotton Classer Aide CHERYL ANDERSON, | | | | | | Gender Male Nurse | | | Stress Lead Software Tester | | | Procedure Type of Study [...] Volume: 84.98 ml | | | EF Tlwaasyza89% Left Ventricle Diastolic | | | Dimension: [...] Volume: 84.98 ml | | | EF Mgzsmnzkm41% | | | | | | Left [...] Room Number 454 | | Patient Number [id number] Date of Study 04/27/2017 Visit Number | | [id number] Referring Physician LEATHA IVY | | Number Date of 1955 Separating Machine Operator Ted Lozano Age | | 61 year(s) Interpreting MONICA LUNA | | Cotton Classer Aide CHERYL ANDERSON, | | Gender Male Nurse [...] LA Volume: | | 84.98 ml EF Erhbpiace67% Left Ventricle | | Diastolic Dimension: 5.83 [...] LA Volume: 84.98 ml | | EF Wgrnslnhz06% | | | | Left Ventricle | [...] [address] | [place] | [phone] | | [facility] | | [address] | | | - LABORATORY | | [...] + | [facility] | [address] | [place] | [phone] | | [facility] | | [address] | | | - LABORATORY | | [...] mL/min/1.73m2 | [facility] | | | [place] | RATE,ESTIMATED | | MEDICAL | | | | mL/min/1.02x7Bstn than | | CENTER - | | [...] + + | Performing | Address | City/State/[facility] | Phone Number | | Organization | | | | + + + + + | [facility] | [address] | [place] | [phone] | | [facility] | | [address] | | | - LABORATORY | | [...] | | | | | | [employer] | | | | | [...] [address] | [place] | [phone] | | [facility] | | [address] | | | - LABORATORY | | [...] + | [facility] | [address] | [place] | [phone] | | [facility] | | [address] | | | - LABORATORY | | [...] | | | | ROXANNA RUEDA MD ([id number]) | | | | | | on [...] [address] | [place] | [phone] | | [facility] | | [address] | | | - LABORATORY | | [...] | | | | | | [employer] | | | | | [...] + | [facility] | [address] | [place] | [phone] | | [facility] | | [address] | | | - LABORATORY | | [...] + | [facility] | [address] | [place] | [phone] | | [facility] | | [address] | | | - LABORATORY | | [...] [address] | [place] | [phone] | | [facility] | | [address] | | | - LABORATORY | | [...] | mL/min/1.73m2 | [facility] | | | [place] | RATE,ESTIMATED | | MEDICAL | | | | mL/min/1.44z0Gqbu than | | CENTER - | | [...] ST. | [address] | [place], [place] | [phone] | | [facility] | | [address] | | | - LABORATORY | | [...] [address] | [place] | [phone] | | [facility] | | [address] | | | - LABORATORY | | [...] [address] | [place] | [phone] | | [facility] | | [address] | | | - LABORATORY | | [...] [address] | [place] | [phone] | | [facility] | | [address] | | | - LABORATORY | | [...] + | [facility] | [address] | [place] | [phone] | | [facility] | | [address] | | | - LABORATORY | | [...] + | [facility] | [address] | [place] | [phone] | | [facility] | | [address] | | | - LABORATORY | | [...] mL/min/1.73m2 | [facility] | | | [place] | RATE,ESTIMATED | | MEDICAL | | | | mL/min/1.02b2Vwko than | | CENTER - | | [...] + | [facility] | [address] | [place] | [phone] | | [facility] | | [address] | | | - LABORATORY | | [...] ST. | [address] | [place] | [phone] | | [facility] | | [address] | | | - LABORATORY | | [...] priors. | | | PROTOCOL: Coronal T2 director multimedia, axial T2 director multimedia, coronal 3D respiratory | | | triggered, [...] STONE.COMPARISON: Multiple | | priors.PROTOCOL: Coronal T2 director multimedia, axial T2 director multimedia, coronal 3D respiratory | | triggered,coronal T2 [...] | | | | ROXANNA RUEDA MD ([id number]) | | | | | | on [...] | | | | | NPO, Daytime 1379-6111 Use NIGHT | | | | | | | DOSE for doses scheduled: | | | | | | | HS, 3AM, Nighttime 4834-8016, | | | | | | + [...]
--- OUTSIDE RECORDS SUMMARY | ~2019-01-07 | XMS | Encounter Summary ---
Demographics + + + | Address | [address] | | | [place] [address] | + + + | Home Phone | | + + + | Preferred Language | Unknown | + + + | Marital Status | Single | + + + | Hindu Affiliation | NRP | + + + | Race | or | + + + | Ethnic Group | Not or | + + + Author + + + | Author | [facility] [facility] | + + + | Organization | [facility] [employer] [facility] | + + + | Address | Unknown | + + + | Phone | Unavailable | + + + Support + + +---------+ + | Name | Relationship | Address | Phone | + + +---------+ + | Mary Medellin | ECON | Unknown | | + + +---------+ + Care Team Providers + +------+ + | Care Grain Unloader Machine Name | Role | Phone | + +------+ + | Shakir Monzon MD | PCP | | + +------+ + Reason for Referral PROC - Dept/Practice Procedure (Routine) +--------+--------+ + + + + | Status | Reason | Specialty | Diagnoses / | Referred By | Referred To | | | | | Procedures | Contact | Contact | +--------+--------+ + + + + | Closed | | Gastroenterol | Diagnoses | Ilia, | Gas End[facility] | | | | ogy | Gallbladder | MD [place] | [address] | | | | | perforation | [address] | [address] | | | | | Procedures | [address] | [place] | | | | | CONSULT TO | Rd | Mailcode: | | | | | GI | [place], [place] | [facility] | | | | | PROCEDURE: | [id number] | [place] | | | | | ERCP / | Phone: | [address] | | | | | BILIARY | [phone] | [place], | | | | | [place] | Fax: | [place] [address] | | | | | | [phone] | Phone: | | | | | | | [phone] | | | | | | | Fax: | | | | | | | [phone] | +--------+--------+ + + + + Reason for Visit + + + | Reason | Comments | + + + | Surgery Scheduling | | + + + Encounter Details +--------+ + + + + | Date | Type | Department | Care Team | Description | +--------+ + + + + | 11/24/ | Telephone | [facility] | [place]illo, | Surgery Scheduling | | 2018 | | [facility] [address] | [address] | | | | | [address] | [facility] | | | | | Mailcode: Center | [place], [place] | | | | | [facility] and | [address] | | | | | [facility], [facility] 2 | [phone] | | | | | [place], [place] | | | | | | [address] | | | | | | [phone] | | | +--------+ + + + [...] Diagnosis | + + | Gallbladder perforation - Primary Perforation of gallbladder | + + documented in this encounter"
--- OUTSIDE RECORDS SUMMARY | ~2019-01-07 | XMS | Encounter Summary ---
Demographics + + + | Address | [address] | | | [place] [address] | + + + | Home Phone | | + + + | Preferred Language | Unknown | + + + | Marital Status | Single | + + + | Uatsdin Affiliation | NRP | + + + | Race | or | + + + | Ethnic Group | Not or | + + + Author + + + | Author | [facility] | + + + | Organization | [facility] | + + + | Address | Unknown | + + + | Phone | Unavailable | + + + Support + + +---------+ + | Name | Relationship | Address | Phone | + + +---------+ + | Mary Medellin | ECON | Unknown | | + + +---------+ + Care Team Providers + +------+ + | Care Fourdrinier Wire Weaver Name | Role | Phone | + [...] + + | 04/28/ | Emergency | [facility] | | | | 2017 | | Department [address] | | | | | | [address] | | | | | | [facility] | | | | | | [place], [place] | | | | | | [address] | | | | | | [phone] | | | +--------+ + + + [...] [facility] Staff Contacted by Dr. Waqas Quiroga, [facility] Franco Rodrigojaclyn re: this 61 yo with Hep C cirrhosis, DM wh o presented first to [facility] ED with chest and abdominal pain. Per report, RUQ US was c/f acute cholecystitis so transferred to [facility]. There, noted to have elevated troponin 0 .26 (ULN 0.04). Cardiac cath performed with "severe multivessel disease" Had repeat RUQ US (no results available) as well as MRCP at [facility] without e/o acute ch olecystitis but ?stone in distal CBD. LFTs at [facility] AST 31, ALT 16, Alk phos 58, [...] to have MRCP images pushed over from [facility] to review If there is e/o retained [...]
--- OUTSIDE RECORDS SUMMARY | ~2019-01-07 | XMS | Encounter Summary ---
Demographics + + + | Address | [address] | | | [place] [address] | + + + | Home Phone | | + + + | Preferred Language | Unknown | + + + | Marital Status | Single | + + + | Christian Affiliation | Unknown | + + + | Race | Unknown | + + + | Ethnic Group | Unknown | + + + Author + + + | Author | [facility] | | | and [place] | + + + | Organization | [facility] | | [...] Team Providers + +------+ + | Care Assembler Carbon Brushes Name | Role | Phone | + +------+ + | Shakir Monzon DO | PCP | | + +------+ + Reason for Visit + + + | Reason | Comments | + + + | Diagnostic Order | MRI liver | + + + Encounter Details +--------+ + + + + | Date | Type | Department | Care Team | Description | +--------+ + + + + | 03/30/ | Telephone | [facility] [place] | [facility], | Diagnostic Order | | 2017 | | GASTROENTEROLOGY | [place] [address] | (MRI liver) | | | | [address] [place] | [place], [place] [address] | | | | | [address] [place], [place] | [place], [place] | | | | | [address] | [address] | | | | | [phone] | | | +--------+ + + + [...] | | | | | [place] | | | | | | [address] | | | | | | | | +--------+---------+ + + + documented as of this encounter Visit Diagnoses Not on filedocumented in this encounter"
--- OUTSIDE RECORDS SUMMARY | ~2019-01-07 | XMS | Encounter Summary ---
Demographics + + + | Address | [address] | | | [place] [address] | + + + | Home Phone | | + + + | Preferred Language | Unknown | + + + | Marital Status | Single | + + + | Episcopalian Affiliation | Unknown | + + + | Race | Unknown | + + + | Ethnic Group | Unknown | + + + Author + + + | Author | [facility] | | | and [place] | + + + | Organization | [facility] | | | [...] Team Providers + +------+ + | Care Landfill Attendant Name | Role | Phone | + [...] | Hepatic | [place], | [address] | | | | | cirrhosis, | [place], | [place], | | | | | unspecified | [facility] [address] | [place] | | | | | hepatic | [place], [place] | [address] | | | | | cirrhosis | [address] [place] | Phone: | | | | | type (HCC) | [place], [place] | [phone] | | | | | Elevated AFP | [address] | Fax: | | | | | Procedures | Phone: | [phone] | | | | | MRI Liver | [phone] | | | | | | w wo | Fax: | | | | | | Contrast [place] | [phone] | | | | | | MRI, [...] + + | 04/06/ | Hospital | [facility] | [facility], | Hepatic cirrhosis, | | 2017 | Encounter | [facility] CTR MRI [address] | [place], [place] | unspecified hepatic | | | | [place], | [place], [place] [address] | cirrhosis type | | | | [place] [address] | [place], [place] | (HCC); Elevated AFP | | | | [phone] | [address] | | | | | | | [...] [place] | | | | | | [id number] | | | | | | | [...] 2015. CT abdomen abdomen and pelvis | [facility] | | dated July 25, 2014. Both [...] ST. | [address] | [place] | [phone] | | [facility] | | [address] | | | - IMAGING | | [...]
--- OUTSIDE RECORDS SUMMARY | ~2019-01-07 | XMS | Encounter Summary ---
Demographics + + + | Address | [address] | | | [place] [address] | + + + | Home Phone | | + + + | Preferred Language | Unknown | + + + | Marital Status | Single | + + + | Catholic Affiliation | Unknown | + + + | Race | Unknown | + + + | Ethnic Group | Unknown | + + + Author + + + | Author | [facility] | | | and [place] | + + + | Organization | [facility] | | [...] Team Providers + +------+ + | Care Fashion Buyer Name | Role | Phone | + +------+ + | Shakir Monzon DO | PCP | | + +------+ + Reason for Visit + + + | Reason | Comments | + + + | Diagnostic Order | | + + + Encounter Details +--------+ + + + + | Date | Type | Department | Care Team | Description | +--------+ + + + + | 09/11/ | Telephone | [facility] | Donell Hunt MD | Diagnostic Order | | 2017 | | GASTROENTEROLOGY | [address] | | | | | [address] [facility] | [place], [place] | | | | | [address] [place] | [address] | | | | | [address] | [phone] | | | | | [phone] | | | +--------+ + + + [...] [place] | | | | | | [address] | | | | | | | | +--------+---------+ + + + documented as of this encounter Visit Diagnoses Not on filedocumented in this encounter"
--- OUTSIDE RECORDS SUMMARY | ~2019-01-07 | XMS | Encounter Summary ---
Demographics + + + | Address | [address] | | | [place] [address] | + + + | Home Phone | | + + + | Preferred Language | Unknown | + + + | Marital Status | Single | + + + | Restoration Affiliation | NRP | + + + | Race | or | + + + | Ethnic Group | Not or | + + + Author + + + | Organization | Unknown | + + + | Address | Unknown | + + + | Phone | Unavailable | + + + Support + + +---------+ + | Name | Relationship | Address | Phone | + + +---------+ + | Mary Medellin | ECON | Unknown | | + + +---------+ + Care Team Providers + +------+ + | Care Grants And Contracts Assistant Name | Role | Phone | + +------+ + PCP | Unavailable | + +------+ + Encounter Details +--------+ + + + + | Date | Type | Department | Care Team | Description | +--------+ + + + + | 05/22/ | Procedure - | | Record, Operation | Operative Report | | 2002 | | | | | | | Transcribed | | | | +--------+ + + [...] | + +--------+ + + + | OPERATION RECORD | | 05/22/2002 | | Results for this | | | | | | procedure are in the | | | | | | results section. | + +--------+ + + + documented in this encounter Results OPERATION RECORD (05/22/2002) + + | Transcriptions | + + | Interface, Gas Appliance Servicer In - 09/01/2005 3:08 AM PDT | | [address] | | [place], [place] [address] | | [facility]ATION RECORDMed Rec No.: | | [id number] Date: 05/22/2002Name: Teddy ErasmoCLE[facility] SURGEON: | | Wilfredo Taylor M.D.ASSISTANTS: Nelson Skelton M.D.PREOPERATIVE | | DIAGNOSIS: Azoospermia.POSTOPERATIVE DIAGNOSIS: Azoospermia.OPERATIONS PERFORMED: | | 1. Left vasovasostomy. 2. Right epididymal vasostomy.SPECIMENS REMOVED: | | None.ANESTHESIA: Cord block.COMPLICATION: Not | | dictated.ESTIMATED BLOOD LOSS: Not dictated.INDICATIONS: Mr. Espinal | | had a vasectomy 12 years ago aftertwo children. He is from his first . He | | is now to [id number] woman who has never had children and assumed he would | | like afamily. The procedure is indicated for procreation.FINDINGS: On | | the left, creamy semen was recoveredcontaining sperm heads only. A standard | | vasovasostomy was performed. Onthe right, no sperm was recovered in pasty fluid. The | | epididymis wasexplored. There was intact motile sperm in the distal epididymis where | | anepididymovasostomy was performed.PROCEDURE: The patient was identified | | and brought to theoperating room and given a satisfactory cord block with 1/2% Marcaine | | mixed1:1 with 1% Xylocaine. He was prepped and draped in the standard manner forgenital | | surgery. The left scrotum was entered. The site of previousvasectomy identified and | | excised. Distal vas patency was determined by anormal saline flush. Proximally there | | was creamy semen-containing spermheads. After adequate hemostasis had been achieved, | | the ends of the vaswere brought through a rubber dam and under the operating microscope, | | adouble layer vasovasostomy performed with 10-0 and 9-0 Dexon. Aftercompleting repair, | | a final check was made for hemostasis. The vas wasreplaced into the scrotum. The | | scrotum was closed with two layers of 4-0chromic.The right side was approached in a | | similar manner. After removing thevasectomy site, distal vas patency was determined by | | a normal saline flush.Proximally there was pasty semen containing no sperm. The | | epididymis wasexplored. It appeared to be obstructed at the distal epididymis. | | Theepididymis was dissected free from the testis in the usual manner. Theends of the | | vas and epididymis was brought through the rubber dam. Theepididymis was explored with | | an operating microscope. The epididymaltubercle was opened. There was an immediate | | gush of opalescent semencontaining intact nonmotile sperm. The standard | | epididymovasostomy wasperformed with 10-0 and 9-0 Dexon and reinforcing 5-0 chromic to | | theredundant portion of the epididymis and the adjacent vas. After completingrepair, and | | final check was made for hemostasis, the vas and epididymisreplaced in the scrotum and | | the scrotum was closed with two layers of 4-0chromic.OP site dressing was applied under | | an athletic support. The patient isreturned to the ambulatory surgery in satisfactory | | condition havingtolerated the procedure well.Wilfredo Taylor M.D.SUMA/Jimbo: 05/22/2002T: | | 05/22/[id number] | |the right, no sperm was recovered in pasty fluid. The epididymis was | |explored. There was intact motile sperm in the distal epididymis where an | |epididymovasostomy was performed. | | | |PROCEDURE: The patient was identified and brought to the | |operating room and given a satisfactory cord block with 1/2% Marcaine mixed | |1:1 with 1% Xylocaine. He was prepped and draped in the standard manner for | |genital surgery. The left scrotum was entered. The site of previous | |vasectomy identified and excised. Distal vas patency was determined by a | |normal saline flush. Proximally there was creamy semen-containing sperm | |heads. After adequate hemostasis had been achieved, the ends of the vas | |were brought through a rubber dam and under the operating microscope, a | |double layer vasovasostomy performed with 10-0 and 9-0 Dexon. After | |completing repair, a final check was made for hemostasis. The vas was | |replaced into the scrotum. The scrotum was closed with two layers of 4-0 | |chromic. | | | | | |The right side was approached in a similar manner. After removing the | |vasectomy site, distal vas patency was determined by a normal saline flush. | |Proximally there was pasty semen containing no sperm. The epididymis was | |explored. It appeared to be obstructed at the distal epididymis. The | |epididymis was dissected free from the testis in the usual manner. The | |ends of the vas and epididymis was brought through the rubber dam. The | |epididymis was explored with an operating microscope. The epididymal | |tubercle was opened. There was an immediate gush of opalescent semen | |containing intact nonmotile sperm. The standard epididymovasostomy was | |performed with 10-0 and 9-0 Dexon and reinforcing 5-0 chromic to the | |redundant portion of the epididymis and the adjacent vas. After completing | |repair, and final check was made for hemostasis, the vas and epididymis | |replaced in the scrotum and the scrotum was closed with two layers of 4-0 | |chromic. | | | |OP site dressing was applied under an athletic support. The patient is | |returned to the ambulatory surgery in satisfactory condition having | |tolerated the procedure well. | | | | | | | |Wilfredo Taylor M.D. | | | |SUMA/narinder | | | | | |[phone] | + + documented in this encounter Visit Diagnoses Not on filedocumented in this encounter"
--- OUTSIDE RECORDS SUMMARY | ~2019-01-07 | XMS | Encounter Summary ---
Demographics + + + | Address | [address] | | | [place] [address] | + + + | Home Phone | | + + + | Preferred Language | Unknown | + + + | Marital Status | Single | + + + | Uatsdin Affiliation | Unknown | + + + | Race | Unknown | + + + | Ethnic Group | Unknown | + + + Author + + + | Author | [facility] | | | and [place] | + + + | Organization | [facility] | | | [...] Team Providers + +------+ + | Care Lay Out Technician Name | Role | Phone | + +------+ + | Shakir Monzon DO | PCP | | + +------+ + Encounter Details +--------+ + + + + | Date | Type | Department | Care Team | Description | +--------+ + + + + | 12/09/ | Episode | [facility] | Brandi Serrano, | | | 2016 | Changes | GASTROENTEROLOGY | RN | | | | | [address] [place] | | | | | | [address] | | | | | | [address] | | | | | | [phone] | | | +--------+ + + + [...] | | | | | [place] | | | | | | [address] | | | | | | | | +--------+---------+ + + + documented as of this encounter Visit Diagnoses Not on filedocumented in this encounter"
--- OUTSIDE RECORDS SUMMARY | ~2019-01-07 | XMS | Encounter Summary ---
Demographics + + + | Address | [address] | | | [place] [address] | + + + | Home Phone | | + + + | Preferred Language | Unknown | + + + | Marital Status | Single | + + + | Baptism Affiliation | Unknown | + + + | Race | Unknown | + + + | Ethnic Group | Unknown | + + + Author + + + | Author | [facility] | | | and [place] | + + + | Organization | [facility] | | | and [...] Team Providers + +------+ + | Care Welding Machine Operator Helper Gas Name | Role | Phone | + [...] | +--------+ + + + + | 01/05/ | Telephone | [facility] | Donell Hunt MD | Diagnostic Order | | 2018 | | GASTROENTEROLOGY | [address] | | | | | [address] [facility] | [place], [place] | | | | | [address] [place], [place] | [address] | | | | | [address] | [phone] | | | | | [phone] | | | +--------+ + + + [...] [place] | | | | | | [id number] | | | | | | | | +--------+---------+ + + + documented as of this encounter Visit Diagnoses Not on filedocumented in this encounter"
--- OUTSIDE RECORDS SUMMARY | ~2019-01-07 | XMS | Encounter Summary ---
Demographics + + + | Address | [address] | | | [place] [address] | + + + | Home Phone | | + + + | Preferred Language | Unknown | + + + | Marital Status | Single | + + + | Yazdanism Affiliation | NRP | + + + | Race | or | + + + | Ethnic Group | Not or | + + + Author + + + | Author | [facility] | + + + | Organization | [facility] [employer] [facility] | + + + | Address | Unknown | + + + | Phone | Unavailable | + + + Support + + +---------+ + | Name | Relationship | Address | Phone | + + +---------+ + | Mary Medellin | ECON | Unknown | | + + +---------+ + Care Team Providers + +------+ + | Care Supervisor Communications And Signals Name | Role | Phone | + +------+ + | Shakir Monzon MD | PCP | | + +------+ + Reason for Visit + + + | Reason | Comments | + + + | Refill Request | isosorbide | + + + Encounter Details +--------+--------+ + + + | Date | Type | Department | Care Team | Description | +--------+--------+ + + + | 05/27/ | Refill | Cardiology - | Michelle Gan MD | Refill Request | | 2019 | | General [address] | [address] | (isosorbide ) | | | | [address] | [address] | | | | | Mailcode: [id number] | [place], [place] | | | | | [facility] | [address] | | | | | [address] [place], | [phone] | | | | | [place] [address] | | | | | | [phone] | | | +--------+--------+ + + + [...]
--- OUTSIDE RECORDS SUMMARY | ~2019-01-07 | XMS | Encounter Summary ---
Demographics + + + | Address | [address] | | | [place] [address] | + + + | Home Phone | | + + + | Preferred Language | Unknown | + + + | Marital Status | Single | + + + | Buddhist Affiliation | NRP | + + + | Race | or | + + + | Ethnic Group | Not or | + + + Author + + + | Author | [facility] | + + + | Organization | [facility] [...] Team Providers + +------+ + | Care Buttonhole Marker Name | Role | Phone | + [...] | | | | | Stay [address] [facility] | [place], [place] | | | | | [address] | [address] | | | | | Mailcode: [id number] | | | | | | [place] | | | | | | [address] [place], [place] | | | | | | [address] | | | | | | [phone] | | | +--------+ + + + [...]
--- OUTSIDE RECORDS SUMMARY | ~2019-01-07 | XMS | Encounter Summary ---
Demographics + + + | Address | [address] | | | [place] [address] | + + + | Home Phone | | + + + | Preferred Language | Unknown | + + + | Marital Status | Single | + + + | Orthodox Affiliation | Unknown | + + + | Race | Unknown | + + + | Ethnic Group | Unknown | + + + Author + + + | Author | [facility] | | | and [place] | + + + | Organization | [facility] | | [...] Team Providers + +------+ + | Care Open Tenter Operator Name | Role | Phone | + +------+ + | Shakir Monzon DO | PCP | | + +------+ + Encounter Details +--------+ + + + + | Date | Type | Department | Care Team | Description | +--------+ + + + + | 09/23/ | Hospital | [facility] | Donell Hunt MD | Cirrhosis of liver | | 2017 | Encounter | [facility] | [address] | without ascites, | | | | [address] [place] | [place], [place] | unspecified hepatic | | | | [place], [place] | [address] | cirrhosis type (HCC) | | | | [address] | [phone] | | | | | [phone] | | | | | | | Forest Taylor, | | | | | | Technologist | | +--------+ + + + + [...] [place] | | | | | | [address] | | | | | | | | +--------+---------+ + + + documented as of this encounter Procedures + +--------+ + + + | Procedure Name | Priori | Date/Time | Associated Diagnosis | Comments | | | ty | | | | + +--------+ + + + | US ABDOMEN LIMITED | Routin | 09/23/2016 | Cirrhosis of liver | Results for this | | | e | 10:00 AM | without ascites, | procedure are in the | | | | PDT | unspecified hepatic | results section. | | | | | cirrhosis type (HCC) | | + +--------+ + + + documented in this encounter Results US Abdomen Limited (09/23/2016 10:00 AM PDT) + + | Specimen | + + | | + + + + + | Narrative | Performed At | + + + | TECHNIQUE: Limited right upper quadrant B-mode ultrasound with | [facility] | | color and duplex doppler CLINICAL INFORMATION: decompenstaed | [facility] | | cirrhosis; rule out HCC and ascites. COMPARISON: 11/27/2015 and | [facility] | | MRI the 04/06/2016. FINDINGS: LIVER: Size: Normal. | - IMAGING | | Echogenicity: Mild coarse echogenic appearance of the liver parenchyma | | | Surface nodularity: Subtle nodular contour throughout. Mass (size | | | and location): None. Portal Vein: Hepatopedal flow. BILE DUCTS: | | | Intrahepatic ducts: Normal. Common bile duct diameter: 4 mm | | | GALLBLADDER: Gallstones: Multiple mobile echogenic stones. A | | | nonmobile polypoid echogenic structure noted at the collateral fundus | | | measuring up to 4 mm. Gallbladder sludge: None. Gallbladder wall | | | thickening: None. Pericholecystic fluid: None. Sonographic Caldera | | | sign: Absent. PANCREAS: Visualized portions are unremarkable. | | | RIGHT KIDNEY: Hydronephrosis: None. Calcification: None. Mass: | | | None. Size: 13.9 cm in long axis ASCITES: None. | | | IMPRESSION - Cholelithiasis. Gallbladder polyp measuring 4 | | | mm, most consistent with a cholesterol polyp, unchanged from prior | | | sonogram. Hepatic cirrhosis. Dictated and Signed by: | | | Allen Ledesma MD Electronically signed: 09/23/2016 10:29 AM | | + + + + + | Procedure Note | + + | Harjit, Rad Results In - 09/23/2016 11:14 AM PDT | | TECHNIQUE: Limited right upper quadrant B-mode ultrasound with color and duplex | | doppler | | | | CLINICAL INFORMATION: decompenstaed cirrhosis; rule out HCC and ascites. | | | | COMPARISON: 11/27/2015 and MRI the 04/06/2016. | | | | FINDINGS: | | | | LIVER: | | Size: Normal. | | Echogenicity: Mild coarse echogenic appearance of the liver parenchyma | | Surface nodularity: Subtle nodular contour throughout. | | Mass (size and location): None. | | Portal Vein: Hepatopedal flow. | | | | BILE DUCTS: | | Intrahepatic ducts: Normal. | | Common bile duct diameter: 4 mm | | | | GALLBLADDER: | | Gallstones: Multiple mobile echogenic stones. A nonmobile polypoid echogenic | | structure noted at the collateral fundus measuring up to 4 mm. | | Gallbladder sludge: None. | | Gallbladder wall thickening: None. | | Pericholecystic fluid: None. | | Sonographic Caldera sign: Absent. | | | | PANCREAS: | | Visualized portions are unremarkable. | | | | RIGHT KIDNEY: | | Hydronephrosis: None. | | Calcification: None. | | Mass: None. | | Size: 13.9 cm in long axis | | | | ASCITES: | | None. | | | | | | IMPRESSION - | | | | Cholelithiasis. | | | | Gallbladder polyp measuring 4 mm, most consistent with a cholesterol polyp, | | unchanged from prior sonogram. | | | | Hepatic cirrhosis. | | | | | | | | Dictated and Signed by: Allen Ledesma MD | | Electronically signed: 09/23/2016 10:29 AM | + + + + + + + | Performing | Address | City/State/Zipcode | Phone Number | | Organization | | | | + + + + + | [facility] | [address] | [place] | [phone] | | [facility] | | [address] | | | - IMAGING | | | | + + + + + documented in this encounter Visit Diagnoses + + | Diagnosis | + + | Cirrhosis of liver without ascites, unspecified hepatic cirrhosis type (HCC) | + + documented in this encounter"
--- OUTSIDE RECORDS SUMMARY | ~2019-01-07 | XMS | Encounter Summary ---
Demographics + + + | Address | [address] | | | [place] [address] | + + + | Home Phone | | + + + | Preferred Language | Unknown | + + + | Marital Status | Single | + + + | Evangelical Affiliation | Unknown | + + + | Race | Unknown | + + + | Ethnic Group | Unknown | + + + Author + + + | Author | [facility] | | | and [place] | + + + | Organization | [facility] | | [...] Team Providers + +------+ + | Care Sales And Marketing Executive Name | Role | Phone | + +------+ + | Mookie Castro PA-C | PCP | | + +------+ + Encounter Details +--------+ + + + + | Date | Type | Department | Care Team | Description | +--------+ + + + + | 07/08/ | Abstract | [facility] | [facility], | | | 2015 | | GASTROENTEROLOGY | [place] [address] | | | | [address] [place] | [place], [address] | | | | | [address] [place] | [place], [place] | | | | | [address] | [id number] | | | | | [phone] | | | +--------+ + + + [...] [place] | | | | | | [id number] | | | | | | | | +--------+---------+ + + + documented as of this encounter Procedures + +--------+ + + + | Procedure Name | Priori | Date/Time | Associated Diagnosis | Comments | | | ty | | | | + +--------+ + + + | AFP, TUMOR MARKER | Routin | 04/15/2015 | | Results for this | | SERIAL | e | | | procedure are in the | | | | | | results section. | + +--------+ + + + | EXTERNAL LAB: FREE | Routin | 02/26/2015 | | Results for this | | THYROXINE INDEX | e | | | procedure are in the | | | | | | results section. | + +--------+ + + + | EXTERNAL LAB: BUN | Routin | 02/26/2015 | | Results for this | | | e | | | procedure are in the | | | | | | results section. | + +--------+ + + + | EXTERNAL LAB: | Routin | 02/26/2015 | | Results for this | | GLUCOSE | e | | | procedure are in the | | | | | | results section. | + +--------+ + + + | EXTERNAL LAB: ALT | Routin | 02/26/2015 | | Results for this | | | e | | | procedure are in the | | | | | | results section. | + +--------+ + + + | EXTERNAL LAB: AST | Routin | 02/26/2015 | | Results for this | | | e | | | procedure are in the | | | | | | results section. | + +--------+ + + + | EXTERNAL LAB: | Routin | 02/26/2015 | | Results for this | | ALKALINE PHOSPHATASE | e | | | procedure are in the | | | | | | results section. | + +--------+ + + + | EXTERNAL LAB: | Routin | 02/26/2015 | | Results for this | | BILIRUBIN, TOTAL | e | | | procedure are in the | | | | | | results section. | + +--------+ + + + | EXTERNAL LAB: | Routin | 02/26/2015 | | Results for this | | ALBUMIN | e | | | procedure are in the | | | | | | results section. | + +--------+ + + + | EXTERNAL LAB: | Routin | 02/26/2015 | | Results for this | | PROTEIN, TOTAL | e | | | procedure are in the | | | | | | results section. | + +--------+ + + + | EXTERNAL LAB: | Routin | 02/26/2015 | | Results for this | | CALCIUM | e | | | procedure are in the | | | | | | results section. | + +--------+ + + + | EXTERNAL LAB: CARBON | Routin | 02/26/2015 | | Results for this | | DIOXIDE | e | | | procedure are in the | | | | | | results section. | + +--------+ + + + | EXTERNAL LAB: | Routin | 02/26/2015 | | Results for this | | CHLORIDE | e | | | procedure are in the | | | | | | results section. | + +--------+ + + + | EXTERNAL LAB: | Routin | 02/26/2015 | | Results for this | | POTASSIUM | e | | | procedure are in the | | | | | | results section. | + +--------+ + + + | EXTERNAL LAB: SODIUM | Routin | 02/26/2015 | | Results for this | | | e | | | procedure are in the | | | | | | results section. | + +--------+ + + + | EXTERNAL LAB: | Routin | 02/26/2015 | | Results for this | | VITAMIN D, | e | | | procedure are in the | | 25-HYDROXY | | | | results section. | + +--------+ + + + | EXTERNAL LAB: TSH | Routin | 02/26/2015 | | Results for this | | | e | | | procedure are in the | | | | | | results section. | + +--------+ + + + | EXTERNAL LAB: | Routin | 02/26/2015 | | Results for this | | TRIGLYCERIDES | e | | | procedure are in the | | | | | | results section. | + +--------+ + + + | EXTERNAL LAB: | Routin | 02/26/2015 | | Results for this | | CHOLESTEROL, HDL | e | | | procedure are in the | | | | | | results section. | + +--------+ + + + | EXTERNAL LAB: | Routin | 02/26/2015 | | Results for this | | CHOLESTEROL, TOTAL | e | | | procedure are in the | | | | | | results section. | + +--------+ + + + | EXTERNAL LAB: | Routin | 02/26/2015 | | Results for this | | CHOLESTEROL, LDL | e | | | procedure are in the | | | | | | results section. | + +--------+ + + + | EXTERNAL LAB: EGFR | Routin | 02/26/2015 | | Results for this | | | e | | | procedure are in the | | | | | | results section. | + +--------+ + + + | EXTERNAL LAB: | Routin | 02/26/2015 | | Results for this | | CREATININE | e | | | procedure are in the | | | | | | results section. | + +--------+ + + + | HC HEP C ANTIBODY | Routin | 02/26/2015 | | Results for this | | (HCV) | e | | | procedure are in the | | | | | | results section. | + +--------+ + + + | LIPID PANEL | Routin | 02/26/2015 | | Results for this | | | e | | | procedure are in the | | | | | | results section. | + +--------+ + + + | HEPATITIS C | Routin | 02/26/2015 | | Results for this | | GENOTYPING | e | | | procedure are in the | | | | | | results section. | + +--------+ + + + | HEPATITIS C | Routin | 02/26/2015 | | Results for this | | RNA,QUANTITATIVE,PCR | e | | | procedure are in the | | | | | | results section. | + +--------+ + + + | COMPREHENSIVE | Routin | 02/26/2015 | | Results for this | | METABOLIC PANEL | e | | | procedure are in the | | | | | | results section. | + +--------+ + + + documented in this encounter Results AFP, Tumor Marker Serial (04/15/2015) + + + + + + | Component | Value | Ref Range | Performed | Pathologist | | | | | At | Signature | + + + + + + | AFP Tumor | 17.1 (A) | 0.0 - 7.0 ng/mL | | | | Marker | | | | | + + + + + + + + | Specimen | + + | Blood specimen | | (specimen) | + + HC HEP C ANTIBODY (HCV) (02/26/2015) + + + + + + | Component | Value | Ref Range | Performed | Pathologist | | | | | At | Signature | + + + + + + | HCV Ab | Positive | | | | + + + + + + | Signal/Cuto | 25.1 | | | | | ff | | | | | + + + + + + + + | Specimen | + + | | + + External Lab: Free Thyroxine Index (02/26/2015) + +-------+ + + + | Component | Value | Ref Range | Performed | Pathologist | | | | | At | Signature | + +-------+ + + + | Free | 1.03 | 0.71 - 1.7 | EXTERNAL | | | Thyroxine | | | LAB | | | Index, | | | | | | External | | | | | + +-------+ + + + + + | Resulting Agency Comment | + + | [facility] | + + + +---------+ + + | Performing | Address | City/State/Zipcode | Phone Number | | Organization | | | | + +---------+ + + | EXTERNAL LAB | | | | + +---------+ + + External Lab: ELIN (02/26/2015) + +-------+ + + + | Component | Value | Ref Range | Performed | Pathologist | | | | | At | Signature | + +-------+ + + + | BUN, | 12 | 6 - 23 | EXTERNAL | | | External | | | LAB | | + +-------+ + + + + + | Resulting Agency Comment | + + | [facility] | + + + +---------+ + + | Performing | Address | City/State/Zipcode | Phone Number | | Organization | | | | + +---------+ + + | EXTERNAL LAB | | | | + +---------+ + + External Lab: Glucose (02/26/2015) + +---------+ + + + | Component | Value | Ref Range | Performed | Pathologist | | | | | At | Signature | + +---------+ + + + | Glucose, | 301 (A) | 70 - 100 | EXTERNAL | | | External | | | LAB | | + +---------+ + + + + + | Resulting Agency Comment | + + | [facility] | + + + +---------+ + + | Performing | Address | City/State/Zipcode | Phone Number | | Organization | | | | + +---------+ + + | EXTERNAL LAB | | | | + +---------+ + + External Lab: ALT (02/26/2015) + +---------+ + + + | Component | Value | Ref Range | Performed | Pathologist | | | | | At | Signature | + +---------+ + + + | ALT, | 157 (A) | 7 - 52 | EXTERNAL | | | External | | | LAB | | + +---------+ + + + + + | Resulting Agency Comment | + + | [facility] | + + + +---------+ + + | Performing | Address | City/State/Zipcode | Phone Number | | Organization | | | | + +---------+ + + | EXTERNAL LAB | | | | + +---------+ + + External Lab: AST (02/26/2015) + +---------+ + + + | Component | Value | Ref Range | Performed | Pathologist | | | | | At | Signature | + +---------+ + + + | AST, | 152 (A) | 13 - 39 | EXTERNAL | | | External | | | LAB | | + +---------+ + + + + + | Resulting Agency Comment | + + | [facility] | + + + +---------+ + + | Performing | Address | City/State/Zipcode | Phone Number | | Organization | | | | + +---------+ + + | EXTERNAL LAB | | | | + +---------+ + + External Lab: Alkaline Phosphatase (02/26/2015) + +-------+ + + + | Component | Value | Ref Range | Performed | Pathologist | | | | | At | Signature | + +-------+ + + + | ALP, | 122 | 30 - 128 | EXTERNAL | | | External | | | LAB | | + +-------+ + + + + + | Resulting Agency Comment | + + | [facility] | + + + +---------+ + + | Performing | Address | City/State/Zipcode | Phone Number | | Organization | | | | + +---------+ + + | EXTERNAL LAB | | | | + +---------+ + + External Lab: Bilirubin, Total (02/26/2015) + +-------+ + + + | Component | Value | Ref Range | Performed | Pathologist | | | | | At | Signature | + +-------+ + + + | Bilirubin, | 1.1 | 0 - 1.2 | EXTERNAL | | | Total, | | | LAB | | | External | | | | | + +-------+ + + + + + | Resulting Agency Comment | + + | [facility] | + + + +---------+ + + | Performing | Address | City/State/Zipcode | Phone Number | | Organization | | | | + +---------+ + + | EXTERNAL LAB | | | | + +---------+ + + External Lab: Albumin (02/26/2015) + +---------+ + + + | Component | Value | Ref Range | Performed | Pathologist | | | | | At | Signature | + +---------+ + + + | Albumin, | 3.0 (A) | 3.5 - 5 | EXTERNAL | | | External | | | LAB | | + +---------+ + + + + + | Resulting Agency Comment | + + | [facility] | + + + +---------+ + + | Performing | Address | City/State/Zipcode | Phone Number | | Organization | | | | + +---------+ + + | EXTERNAL LAB | | | | + +---------+ + + External Lab: Protein, Total (02/26/2015) + +-------+ + + + | Component | Value | Ref Range | Performed | Pathologist | | | | | At | Signature | + +-------+ + + + | Protein, | 6.8 | 6 - 8 | EXTERNAL | | | Total, | | | LAB | | | External | | | | | + +-------+ + + + + + | Resulting Agency Comment | + + | [facility] | + + + +---------+ + + | Performing | Address | City/State/Zipcode | Phone Number | | Organization | | | | + +---------+ + + | EXTERNAL LAB | | | | + +---------+ + + External Lab: Calcium (02/26/2015) + +-------+ + + + | Component | Value | Ref Range | Performed | Pathologist | | | | | At | Signature | + +-------+ + + + | Calcium, | 8.7 | 8.4 - 10.2 | EXTERNAL | | | External | | | LAB | | + +-------+ + + + + + | Resulting Agency Comment | + + | [facility] | + + + +---------+ + + | Performing | Address | City/State/Zipcode | Phone Number | | Organization | | | | + +---------+ + + | EXTERNAL LAB | | | | + +---------+ + + External Lab: Carbon Dioxide (02/26/2015) + +-------+ + + + | Component | Value | Ref Range | Performed | Pathologist | | | | | At | Signature | + +-------+ + + + | Carbon | 19 | 19 - 31 | EXTERNAL | | | Dioxide, | | | LAB | | | External | | | | | + +-------+ + + + + + | Resulting Agency Comment | + + | [facility] | + + + +---------+ + + | Performing | Address | City/State/Zipcode | Phone Number | | Organization | | | | + +---------+ + + | EXTERNAL LAB | | | | + +---------+ + + External Lab: Chloride (02/26/2015) + +-------+ + + + | Component | Value | Ref Range | Performed | Pathologist | | | | | At | Signature | + +-------+ + + + | Chloride, | 108 | 95 - 112 | EXTERNAL | | | External | | | LAB | | + +-------+ + + + + + | Resulting Agency Comment | + + | [facility] | + + + +---------+ + + | Performing | Address | City/State/Zipcode | Phone Number | | Organization | | | | + +---------+ + + | EXTERNAL LAB | | | | + +---------+ + + External Lab: Potassium (02/26/2015) + +-------+ + + + | Component | Value | Ref Range | Performed | Pathologist | | | | | At | Signature | + +-------+ + + + | Potassium, | 4.0 | 3.6 - 5.1 | EXTERNAL | | | External | | | LAB | | + +-------+ + + + + + | Resulting Agency Comment | + + | [facility] | + + + +---------+ + + | Performing | Address | City/State/Zipcode | Phone Number | | Organization | | | | + +---------+ + + | EXTERNAL LAB | | | | + +---------+ + + External Lab: Sodium (02/26/2015) + +-------+ + + + | Component | Value | Ref Range | Performed | Pathologist | | | | | At | Signature | + +-------+ + + + | Sodium, | 135 | 132 - 143 | EXTERNAL | | | External | | | LAB | | + +-------+ + + + + + | Resulting Agency Comment | + + | [facility] | + + + +---------+ + + | Performing | Address | City/State/Zipcode | Phone Number | | Organization | | | | + +---------+ + + | EXTERNAL LAB | | | | + +---------+ + + External Lab: Vitamin D, 25-Hydroxy (02/26/2015) + +--------+ + + + | Component | Value | Ref Range | Performed | Pathologist | | | | | At | Signature | + +--------+ + + + | Vitamin D, | 26 (A) | 30 - 100 | EXTERNAL | | | 25-Hydroxy, | | | LAB | | | External | | | | | + +--------+ + + + + + | Specimen | + + | Blood specimen | | (specimen) | + + + + | Resulting Agency Comment | + + | [facility] | + + + +---------+ + + | Performing | Address | City/State/Zipcode | Phone Number | | Organization | | | | + +---------+ + + | EXTERNAL LAB | | | | + +---------+ + + External Lab: TSH (02/26/2015) + + + + + + | Component | Value | Ref Range | Performed | Pathologist | | | | | At | Signature | + + + + + + | TSH, | 2.87Comment: 3rd | 0.27 - 4.2 | EXTERNAL | | | External | Generation | | LAB | | + + + + + + + + | Specimen | + + | Blood specimen | | (specimen) | + + + + | Resulting Agency Comment | + + | [facility] | + + + +---------+ + + | Performing | Address | City/State/Zipcode | Phone Number | | Organization | | | | + +---------+ + + | EXTERNAL LAB | | | | + +---------+ + + External Lab: Triglycerides (02/26/2015) + +---------+ + + + | Component | Value | Ref Range | Performed | Pathologist | | | | | At | Signature | + +---------+ + + + | Triglycerid | 223 (A) | 30 - 150 | EXTERNAL | | | es, | | | LAB | | | External | | | | | + +---------+ + + + + + | Specimen | + + | Blood specimen | | (specimen) | + + + + | Resulting Agency Comment | + + | [facility] | + + + +---------+ + + | Performing | Address | City/State/Zipcode | Phone Number | | Organization | | | | + +---------+ + + | EXTERNAL LAB | | | | + +---------+ + + External Lab: Cholesterol, HDL (02/26/2015) + +--------+ + + + | Component | Value | Ref Range | Performed | Pathologist | | | | | At | Signature | + +--------+ + + + | HDL | 36 (A) | 40 mg/dl | EXTERNAL | | | Cholesterol | | | LAB | | | , External | | | | | + +--------+ + + + + + | Specimen | + + | Blood specimen | | (specimen) | + + + + | Resulting Agency Comment | + + | [facility] | + + + +---------+ + + | Performing | Address | City/State/Zipcode | Phone Number | | Organization | | | | + +---------+ + + | EXTERNAL LAB | | | | + +---------+ + + External Lab: Cholesterol, Total (02/26/2015) + +---------+ + + + | Component | Value | Ref Range | Performed | Pathologist | | | | | At | Signature | + +---------+ + + + | Cholesterol | 265 (A) | 200 mg/dl | EXTERNAL | | | , Total, | | | LAB | | | External | | | | | + +---------+ + + + + + | Specimen | + + | Blood specimen | | (specimen) | + + + + | Resulting Agency Comment | + + | [facility] | + + + +---------+ + + | Performing | Address | City/State/Zipcode | Phone Number | | Organization | | | | + +---------+ + + | EXTERNAL LAB | | | | + +---------+ + + External Lab: Cholesterol, LDL (02/26/2015) + +---------+ + + + | Component | Value | Ref Range | Performed | Pathologist | | | | | At | Signature | + +---------+ + + + | LDL | 184 (A) | 100 | EXTERNAL | | | Cholesterol | | | LAB | | | , Direct, | | | | | | External | | | | | + +---------+ + + + + + | Specimen | + + | Blood specimen | | (specimen) | + + + + | Resulting Agency Comment | + + | [facility] | + + + +---------+ + + | Performing | Address | City/State/Zipcode | Phone Number | | Organization | | | | + +---------+ + + | EXTERNAL LAB | | | | + +---------+ + + External Lab: eGFR (02/26/2015) + +-------+ + + + | Component [...] Resulting Agency Comment | + + | [facility] | + + + +---------+ + + | Performing | Address | City/State/Zipcode | Phone Number | | Organization | | | | + +---------+ + + | EXTERNAL LAB | | | | + +---------+ + + External Lab: Creatinine (02/26/2015) + +-------+ + + + | Component | Value | Ref Range | Performed | Pathologist | | | | | At | Signature | + +-------+ + + + | Creatinine, | 0.86 | 0.7 - 1.33 | EXTERNAL | | | External | | | LAB | | + +-------+ + + + + + | Specimen | + + | Blood specimen | | (specimen) | + + + + | Resulting Agency Comment | + + | [facility] | + + + +---------+ + + | Performing | Address | City/State/Zipcode | Phone Number | | Organization | | | | + +---------+ + + | EXTERNAL LAB | | | | + +---------+ + + Hepatitis C Genotyping (02/26/2015) + +-------+ + + + | Component | Value | Ref Range | Performed | Pathologist | | | | | At | Signature | + +-------+ + + + | HCV | 1a | | | | | Genotype | | | | | + +-------+ + + + + + | Specimen | + + | Blood specimen | | (specimen) | + + Hepatitis C RNA, quantitative, PCR (02/26/2015) + + + + + + | Component | Value | Ref Range | Performed | Pathologist | | | | | At | Signature | + + + + + + | HCV | 6.33 | | [facility] | | | Quantitativ | | | [facility] | | | e Log | | | MEDICAL | | | | | | CENTER - | | | | | | LABORATORY | | + + + + + + | HCV | 2,130,000 | | [facility] | | | Quantitativ | | | [facility] | | | e | | | MEDICAL | | | [...] + | [facility] | [address] | [place] | [phone] | | [facility] | | [id number] | | | - LABORATORY | | | | + + + + + Lipid Panel (02/26/2015) + +---------+ + + + | Component | Value | Ref Range | Performed | Pathologist | | | | | At | Signature | + +---------+ + + + | VLDL | 45 (A) | 4 - 40 mg/dL | | | + +---------+ + + + | Chol/HDL | 7.4 (A) | 5.0 | | | | Ratio | | | | | + +---------+ + + + | Non-HDL | 229 (A) | 130 | | | | Cholesterol | | | | | + +---------+ + + + + + | Specimen | + + | Blood specimen | | (specimen) | + + Comprehensive Metabolic Panel (02/26/2015) + +---------+ + + + | Component | Value | Ref Range | Performed | Pathologist | | | | | At | Signature | + +---------+ + + + | Anion Gap | 12 | mmol/L | [facility] | | | | | | [facility] | | | | | | [facility] | | | | | | [facility] - | | | | | | LABORATORY | | + +---------+ + + + | BUN/Creatin | 14 | | [facility] | | | ine Ratio | | | [facility] | | | | | | [facility] | | | | | | CENTER - | | | | | | LABORATORY | | + +---------+ + + + | Globulin | 3.8 (A) | 1.8 - 3.5 | [facility] | | | | | | [facility] | | | | | | [facility] | | | | | | C[facility] - | | | | | | LABORATORY | | + +---------+ + + + | Albumin/Alessia | 0.8 (A) | 1.1 - 2.4 | [facility] | | | bulin Ratio | | | [facility] | | [...] [facility] | [address] | [place] | [phone] | | [facility] | | [id number] | | | - LABORATORY | | | | + + + + + documented in this encounter Visit Diagnoses Not on filedocumented in this encounter"
--- OUTSIDE RECORDS SUMMARY | ~2019-01-07 | XMS | Encounter Summary ---
Demographics + + + | Address | [address] | | | [place] [address] | + + + | Home Phone | | + + + | Preferred Language | Unknown | + + + | Marital Status | Single | + + + | Shinto Affiliation | NRP | + + + | Race | or | + + + | Ethnic Group | Not or | + + + Author + + + | Author | [facility] | + + + | Organization | [facility] | + + + | Address | Unknown | + + + | Phone | Unavailable | + + + Support + + +---------+ + | Name | Relationship | Address | Phone | + + +---------+ + | Mary Medellin | ECON | Unknown | | + + +---------+ + Care Team Providers + +------+ + | Care Head Athletic Trainer Name | Role | Phone | + +------+ + | Shakir Monzon MD | PCP | | + +------+ + Reason for Referral Diagnostic Testing (Routine) +--------+--------+ + + + + | Status | Reason | Specialty | Diagnoses / | Referred By | Referred To | | | | | Procedures | Contact | Contact | +--------+--------+ + + + + | Closed | | Radiology | Diagnoses | Keo, | Tiffany, | | | | | Gallbladder | MD Uriah | Jessika Short MD | | | | | perforation | [address] | [address] | | | | | Procedures | [address] | [address] | | | | | CT ABDOMEN | [address] | [place], | | | | | AND PELVIS | [facility]NOTE 3], [place] | [place] | | | | | [place] | [address] | [address] | | | | | CONTRAST [place] | Phone: | Phone: | | | | | [place] | [phone] | [phone] | | | | | ABDOMEN&PELV | Fax: | Fax: | | | | | [place] | [phone] | [phone] | | | | | W/CONTRAST | | | +--------+--------+ + + + + Reason for Visit Diagnostic Testing (Routine) +--------+--------+ + + + + | Status | Reason | Specialty | Diagnoses / | Referred By | Referred To | | | | | Procedures | Contact | Contact | +--------+--------+ + + + + | Closed | | Radiology | Diagnoses | Anghel, | Tiffany, | | | | | Gallbladder | MD Uriah | Jessika Short MD | | | | | perforation | [address] | [address] | | | | | Procedures | Renato | [facility] | | | | | CT ABDOMEN | [address] | Rd [place], | | | | | AND PELVIS | [facility]NOTE 3], [place] | [place] | | | | | W [place] | [address] | [address] | | | | | CONTRAST [place] | Phone: | Phone: | | | | | CT | [phone] | [phone] | | | | | ABDOMEN&PELV | Fax: | Fax: | | | | | [place] | [phone] | [phone] | | | | | W/CONTRAST | | | +--------+--------+ + + + + Encounter Details +--------+ + + + + | Date | Type | Department | Care Team | Description | +--------+ + + + + | 08/13/ | Hospital | Diagnostic Imaging | Jessika Allen, | | | 2018 | Encounter | Services at [facility] | [address] | | | | | [address] | [address] | | | | | [address] Mailcode: | [place], [place] | | | | | [address] [facility] | [address] | | | | | [place], [place] | [phone] | | | | | [address] | | | | | | [phone] | | | +--------+ + + + [...] + +---------+ + + | Medication | Sig | Dispensed | Refills | Start | End Date | | | | | | Date | | + + + +---------+ + + | insulin aspart | Inject 30 Units | | 0 | | | | U-100 (NOVOLOG | under the skin | | | | | | FLEXPEN U-100 | (SUBC) two times | | | | | | INSULIN) 100 unit/mL | daily. Inject three | | | | | | subcutaneous | times daily per | | | | | | insulin [...] + + | LANTUS SOLOSTAR | Inject 40 Units | | 0 | | | | U-100 INSULIN 100 [...] the | | | | | | release(/EC) | morning. | | | | | + + + +---------+ + + | rifAXIMin 550 mg | Take 550 mg by mouth | | 0 | | | | oral tablet | two times daily. | | | | | + + + +---------+ + + | rosuvastatin | Take 10 mg by mouth | | 0 | | | | (CRESTOR) 10 mg [...] | + + + +---------+ + + documented as of this encounter [...] + + documented in this encounter Results CT ABDOMEN AND PELVIS W IV CONTRAST (08/13/2017 1:38 PM PDT) + + | Specimen | [...] MD 08/13/2017 2:42 PM Dictation initiated: Walter Perez MD 08/13/2017 2:12 PM | |IMPRESSION: | | [...] Diagnosis | + + | Gallbladder perforation Perforation of gallbladder | + + documented in this encounter Administered Medications + +---------+ +--------+------+------+ | Medication Order | MAR | Action | Dose | Rate | Site | | | Action | Date | | | | + +---------+ +--------+------+------+ | iohexol (OMNIPAQUE) 350 mg | IV Push | 08/14/19 | 100 mL | | | | iodine/mL injection 100 mL 100 | | 18 1:39 | | | | | mL, intravenous, PROCEDURE ONCE, | | PM PDT | | | | | 1 dose, 08/13/17 at 1345 | | | | | | + +---------+ +--------+------+------+ +---+---+ | | | +---+---+ documented in this encounter"
--- OUTSIDE RECORDS SUMMARY | ~2019-01-07 | XMS | Encounter Summary ---
Demographics + + + | Address | [address] | | | [place] [address] | + + + | Home Phone | | + + + | Preferred Language | Unknown | + + + | Marital Status | Single | + + + | Anabaptism Affiliation | NRP | + + + | Race | or | + + + | Ethnic Group | Not or | + + + Author + + + | Author | [facility] | + + + | Organization | [facility] [employer] [facility] | + + + | Address | Unknown | + + + | Phone | Unavailable | + + + Support + + +---------+ + | Name | Relationship | Address | Phone | + + +---------+ + | Mary Medellin | ECON | Unknown | | + + +---------+ + Care Team Providers + +------+ + | Care Budget Report Clerk Name | Role | Phone | [...] | +--------+ + + + + | 12/28/ | Telephone | [facility] | SolanoJefmarisa Short, | Lab Order | | 2017 | | [place] at [facility] [address] | [address] | | | | | [address] | [address] | | | | | Mailcode: OC[address]D | [place], [place] | | | | | [facility] | [address] | | | | | and [place], | [phone] | | | | | [address] | | | | | | [place], [place] | | | | | | [address] | | | | | | [phone] | | | +--------+ + + + [...]
--- OUTSIDE RECORDS SUMMARY | ~2019-01-07 | XMS | Encounter Summary ---
Demographics + + + | Address | [address] | | | [place] [address] | + + + | Home Phone [...] Author | [facility] | + + + | Organization | [facility] | + + + | Address | Unknown | + + + | Phone | Unavailable | + + + Support + + +---------+ + | Name | Relationship | Address | Phone | + + +---------+ + | Mary Medellin | ECON | Unknown | | + + +---------+ + Care Team Providers + +------+ + | Care Inside Sales Recruiter Name | Role | Phone | + +------+ + | Shakir Monzon MD | PCP | | + +------+ + Encounter Details +--------+ + + + + | Date | Type | Department | Care Team | Description | +--------+ + + + + | 08/05/ | Procedure | Diagnostic Imaging | | | | 2018 | Pass | Services at [facility] | | | | | | [address] | | | | | | [address] Mailcode: | | | | | | [address] | | | | | | [facility] | | | | | | [place], [place] | | | | | | [address] | | | | | | [phone] | | | +--------+ + + + [...]
--- OUTSIDE RECORDS SUMMARY | ~2019-01-07 | XMS | Encounter Summary ---
Demographics + + + | Address | [address] | | | [place] [address] | + + + | Home Phone [...] Author + + + | Author | [facility] [employer] [facility] | + + + | Organization | [facility] [email or web address] [facility] | + + + | Address | Unknown | + + + | Phone | Unavailable | + + + Support + + +---------+ + | Name | Relationship | Address | Phone | + + +---------+ + | Mary Medellin | ECON | Unknown | | + + +---------+ + Care Team Providers + +------+ + | Care Beater And Pulper Feeder Name | Role | Phone | + +------+ + | Shakir Monzon MD | PCP | | + +------+ + Reason for Visit + + + | Reason | Comments | + + + | New Patient Visit | | + + + Consultation (Urgent) + +--------+ + + + + | Status | Reason | Specialty | Diagnoses / | Referred By | Referred To | | | | | Procedures | Contact | Contact | + +--------+ + + + + | Pending | | Cardiology | Diagnoses | Qudemond, | Elvia, | | Review | | | CAD | Shakir Fagan MD | MD Michelle | | | | | (coronary | [place] | [address] | | | | | artery | [place] | [facility] | | | | | disease) | Health | Rd [place], | | | | | Procedures | Center | [place] | | | | | CONSULT TO | [address] | [address] | | | | | CARDIOLOGY | [place] | Phone: | | | | | [place] [address] | Way | [phone] | | | | | PATIENT | [place], | Fax: | | | | | [place] | [place] [address] | [phone] | | | | | EST PATIENT | Phone: | | | | | | [address] | [phone] | | | | | | | Fax: | | | | | | | [phone] | | + +--------+ + + + + Encounter Details +--------+---------+ + + + | Date | Type | Department | Care Team | Description | +--------+---------+ + + + | 05/25/ | Office | Cardiology - | Michelle Gan MD | Coronary artery | | 2018 | Visit | General [address] | [address] | disease, angina | | | | [address] | [facility] [address] | presence | | | | Mailcode: [id number] | [place], [place] | unspecified, | | | | [facility] | [address] | unspecified vessel | | | | [address], | [phone] | or lesion type, | | | | [place] [address] | | unspecified whether | | | | [phone] | | [place] or | | | | | | transplanted heart | | | | | | (Primary Dx); | | | | | | Coronary artery | | | | | | disease involving | | | | | | [place] coronary | | | | | | artery of [place] | | | | | | heart without angina | | | | | | pectoris; | | | | | | Hyperlipidemia, | | | | | | unspecified | | | | | | hyperlipidemia type; | | | | | | Cirrhosis of liver | | | | | | with ascites, | | | | | | unspecified hepatic | | | | | | cirrhosis type (HCC) | +--------+---------+ + + + Social [...] + + + | Blood Pressure | 143/77 | 05/25/2017 4:20 PM | | | | | PDT | | + + + + + | Pulse | 61 | 05/25/2017 4:20 PM | | | | | PDT | | + + + + + | Temperature | - | - | | + + + + + | Respiratory Rate | 16 | 05/25/2017 4:20 PM | | | | | PDT | | + + + + + | Oxygen Saturation | 100% | 05/25/2017 4:20 PM | | | | | PDT | | + + + + + | Inhaled Oxygen | - | - | | | Concentration | | | | + + + + + | Weight | 97.1 kg (214 lb) | 05/25/2017 4:20 PM | | | | | PDT | | + + + + + | Height | - | - | | + + + + + | Body Mass Index | 30.71 | 05/25/2017 8:21 AM | | | | | PDT | | + + + + + documented in this encounter Progress Notes Bill Iglesias DO - 05/25/2017 4:00 PM PDTATTENDING NOTE: I saw and evaluated Mr. Espinal with Dr. Gan. Management discussed in detail. I agree w ith the findings, assessment and plan of care as per Dr. Gan's note. Bill Iglesias DO Alcoholic Counselor Clinical donor processor/ Division of Cardiovascular Medicine Michelle Velez MD - 05/25/2017 4:00 PM PDT [facility] Cardiology Clinic Consult Name: Mr. Bret Espinal Jr. : 1955 REASON FOR CONSULTATION: Coronary artery disease HISTORY OF PRESENT ILLNESS Mr. 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 Mr. Espinal presented initially in early April to [place] [facility] with an episode of chest daisy n and abdominal discomfort, found have GNR bloostream infection due likely acute cholangitis . Also to have elevated troponin (per chart review 0.15* 0.22* 0.27* 0.20* 0.08* (04/27), for which he proceeded with coronary angiogram demonstrating multivessel disease (99% D1, 80% d istal D2, 100% occulusion of apical LAD, 70% SAVANAH, 70% small OM2, 50% mid RCA). Given co-mor bid conditions, decision was made to proceed with optimal medical therapy. TTE at the time s howed normal LV and RV function without significant valvula abnormality (report available). Noted to have brief episode of atrial fibrillation with RVR, spontaneously converted. Lali hubbard patient did well clinically and underwent MRI demonstrating possible tiny filling defe cts in the distal CBD, raising suspicion for cholangitis as etiology of initial bacteremia. Given improvement with IV antibiotics, decision was made to hold off on further interrogatio n of CBD with ERCP given complexity and comorbid conditions. Patient reports since discharge he has only had one 4-5 second episode of chest pressure, r esolving on its own. He has had no additional episodes of chest discomfort. Reports he has b een short of breath with limited exertion over the past year, however this has been stable o ivory the last few weeks. Weight has been stable. Minimal LE edema, stable. No PND/orthopnea. Review of CV History: Coronary artery disease -NTEMI 04/2017 -Cath: 99% D1, 80% distal D2, 100% occulusion of apical LAD, 70% SAVANAH, 70% small OM2, 50% mi d RCA -managed medically Atrial fibrillation -in the setting of NSTEMI, resolved at discharge -not on a/c in setting of bleeding risk Hyperlipidemia -reports he was off statin therapy for the past few years, elevated once he finished hep c therapy, has subsequently restarted rosuvastatin DARIEL -not compliant with CPAP Nicotine dependence -smoked approx 10 cigarettes/day for 40 years, now cut back to 1-2 daily Alcohol use disorder -heavy alcoholic for several years, now sober for 5 months Cardiac medications: Metoprolol tartrate 12.5 mg BID Rosuvastatin 10 mg daily REVIEW OF SYSTEMS Negative except as noted in HPI. PAST MEDICAL HISTORY No past medical history on file. PAST SURGICAL HISTORY No past surgical history on file. SOCIAL HISTORY Social History Substance Use Topics Smoking status: Current Every Day Smoker Types: Cigarettes Smokeless tobacco: Never Used Alcohol use Not on file ALLERGIES No Known Allergies MEDICATIONS Current Medications Patient is Taking: No current medications are marked Taking in this visit. PHYSICAL EXAMINATION General: AOx3, no acute distress HEENT: EOMI, OP clear, MMM CV: regular rate and rhythm, 2/6 sytolic murmur, no rubs or gallops, S1/S2 nl. JVP at lower 1/3 of neck at 45 degrees Pulm: Good air entry throughout bilaterally. No wheezes or crackles GI: Normoactive bowel sounds. Soft, no distention or tenderness Extremities: Warm. 2+ bilateral radial and PT pulses. mild LE edema. DIAGNOSTIC DATA A. LABORATORY DATA Lab Results Component Value Date NA 142 01/28/2017 K 4.0 01/28/2017 CL 108 01/28/2017 BICARB 20 01/28/2017 BUN 14 01/28/2017 CR 0.92 01/28/2017 GLU 243 01/28/2017 CA 8.7 01/28/2017 ANIONGAP 8 10/14/2016 ANIONALBCOR 11 10/14/2016 Lab Results Component Value Date WBC 6.8 01/28/2017 HB 15.6 01/28/2017 HCT 44.7 01/28/2017 PLT 74 01/28/2017 MCV 97.3 10/14/2016 RDW 48.5 10/14/2016 No results found for: TROPONIN No results found for: CHOL, LDL, HDL, TRI No results found for: A1C B. EKG NSR, 50 bpm C. HOLTER/EVENT MONITOR None D. TTE 04/2017 (outside) 1. Mild left atrial dilatation. 2. Normal [...] IVC without respiratory collapse suggesting fluid retention. E. CARDIAC STRESS TEST No prior. F. CARDIAC CATHETERIZATION 04/3017 (outside, images not available for review) 1. Diffuse moderate to moderately severe CAD [...] about 50% in mid RCA and PL-1 IMPRESSION Mr. 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 Patient presents with recent NSTEMI in the setting of GNR bacteremia likely secondary to ch olangitis, with cath demonstrating diffuse multivessel disease. Given multiple comorbid cond itions invasive strategy was not initially pursued and instead optimal medical therapy was r ecommended. He has since done well although continues to be short of breath with routine act ivities. He unfortunately has multiple challenging comorbid conditions including hep c/alcoh olic cirrhosis w/ known varicies s/p banding (w/o prior bleeding), chronic anemia and thromb ocytopenia, that would place him at high risk for percutaneous intervention and subsequent D APT. He would be at consider surgical risk given liver issues, in addition to poorly control led diabetes, and active smoking. Unfortunately we do not have his angiogram available for review, so this will be requested. Once this is available, Mr. Espinal's case will be discussed with our interventional collejaclyn rivera regarding recommendation/feasibiliyty of intervention. #Coronary artery disease #CCS II angina -NTEMI 04/2017 with cath demonstrating 99% D1, 80% distal D2, 100% occulusion of apical LAD, 70% SAVANAH, 70% small OM2, 50% mid RCA. -will request angiogram be pushed from [facility] in [place] -continue metoprolol -continue losartan -continue rosuvastatin (unable to view recent lipids) -hold ASA given thrombocytopenia #Atrial fibrillation -in the setting of NSTEMI, resolved at discharge -not on a/c in setting of bleeding risk #Hyperlipidemia -reports he was off statin therapy for the past few years, elevated once he finished hep c therapy, has subsequently restarted rosuvastatin -continue rosuvastatin #DARIEL -not compliant with CPAP #Nicotine dependence -smoking cessation encouraged #Followup Will plan to call the patient and discuss additional recommendations once angiogram is avai lable for review. ADDEND: Angiogram requested and uploaded into [facility]. Case reviewed with Dr. Nazario, who recommended o ptimal medical therapy for severe coronary artery disease given multiple comorbid conditions . Should patient experience progressive anginal symptoms despite optimal therapy, would cons ider intervention on circumflex lesion. Given complications of chronic anemia, thrombocytop enia, and esophageal varices would reserve this approach for true medically refractory angin a given elevated bleeding risk. Called and discussed with patient. He reports stable symptom s. He does not have a local shoe dyer and would prefer to followup at [facility] for his cardia c care. I stated I would be happy to see him back at any time. He will continue with regular followups with his primary care provider. Thank you for the interesting consultation. This patient was discussed with my attending , Dr. Iglesias, who agrees with my assessment and plan unless otherwise noted. Michelle Gan MD Cardiovascular Medicine Fellow [facility] Cardiovascular [facility], [place] Pager [phone] documented in this enc ounter Plan of Treatment +--------+ + + + + | Date | Type | Specialty | Care Team | Description | +--------+ + + + + | 02/22/ Procedure | Surgery | | | | 2020 | Pass | | | | +--------+ + + + + documented as of this encounter Procedures + +--------+ + + + | Procedure Name | Priori | Date/Time | Associated Diagnosis | Comments | | | ty | | | | + +--------+ + + + | 12 LEAD ECG | Routin | 05/25/2017 | Coronary artery | Results for this | | | e | 3:23 PM | disease, angina | procedure are in the | | | | PDT | presence | results section. | | | | | unspecified, | | | | | | unspecified vessel | | | | | | or lesion type, | | | | | | unspecified whether | | | | | | [place] or | | | | | | transplanted heart | | + +--------+ + + + documented in this encounter Results 12 LEAD ECG (05/25/2017 3:23 PM PDT) + + + + + + | Component | Value | Ref Range | Performed | Pathologist | | | | | At | Signature | + + + + + + | VENTRICULAR | 60 | bpm | [facility] | | | RATE | | | OF | | | | | | CARDIOLOGY | | + + + + + + | ATRIAL RATE | 60 | ms | [facility] | | | | | | OF | | | | | | CARDIOLOGY | | + + + + + + | P-R | 197 | ms | [facility] | | | INTERVAL | | | OF | | | | | | CARDIOLOGY | | + + + + + + | P AXIS | 34 | deg | [facility] | | | | | | OF | | | | | | CARDIOLOGY | | + + + + + + | QRS | 86 | ms | [facility] | | | DURATION | | | OF | | | | | | CARDIOLOGY | | + + + + + + | QT | 450 | ms | [facility] | | | | | | OF | | | | | | CARDIOLOGY | | + + + + + + | QTCB | 451 | ms | [facility] | | | | | | OF | | | | | | CARDIOLOGY | | + + + + + + | R AXIS | -71 | deg | [facility] | | | | | | OF | | | | | | CARDIOLOGY | | + + + + + + | T AXIS | 1 | deg | [facility] | | | | | | OF | | | | | | CARDIOLOGY | | + + + + + + | ECG | Sinus rhythm | | [facility] | | | IMPRESSION | | | OF | | | | | | CARDIOLOGY | | + + + + + + | ECG | Inferior infarct, old- | | [facility] | | | IMPRESSION | ABNORMAL ECG - | | OF | | | | | | CARDIOLOGY | | + + + + + + | ECG | Electronically signed | | [facility] | | | IMPRESSION | by: VIRGINIA BHAT | | OF | | | | 05-25-2017 16:31:58 | | CARDIOLOGY | | + + + + + [...] + + + + + | [facility] | [address] | [place], [place] | | | CARDIOLOGY | [address] | [address] | | + + + + + documented in this encounter Visit Diagnoses + + | Diagnosis | + + | Coronary artery disease, angina presence unspecified, unspecified vessel or lesion | | type, unspecified whether [place] or transplanted heart - Primary | + + | Coronary artery disease involving [place] coronary artery of [place] heart without | | angina pectoris | + + | Hyperlipidemia, unspecified hyperlipidemia type | + + | Cirrhosis of liver with ascites, unspecified hepatic cirrhosis type (HCC) | + + documented in this encounter"
--- OUTSIDE RECORDS SUMMARY | ~2019-01-07 | XMS | Encounter Summary ---
Demographics + + + | Address | [address] | | | [place] [address] | + + + | Home Phone | | + + + | Preferred Language | Unknown | + + + | Marital Status | Single | + + + | Yazdanism Affiliation | Unknown | + + + | Race | Unknown | + + + | Ethnic Group | Unknown | + + + Author + + + | Author | [facility] | | | and [place] | + + + | Organization | [facility] | | | [...] Providers + +------+ + | Care Senior Care Assistant Name | Role | Phone | + +------+ + | Shakir Monzon DO | PCP | | + +------+ + Encounter Details +--------+ + + + + | Date | Type | Department | Care Team | Description | +--------+ + + + + | 05/27/ | Imaging | [facility] | Provider, | | | 2018 | Exam | [facility] | MD [address] | | | | | IMAGING | [address] | | | | | [phone] | [place] [address] | | +--------+ + + + + [...] [place] | | | | | | [address] | | | | | | | | +--------+---------+ + + + documented as of this encounter Procedures + +--------+ + + + | Procedure Name | Priori | Date/Time | Associated Diagnosis | Comments | | | ty | | | | + +--------+ + + + | XR CHEST 1 VIEW | Routin | 04/20/2017 | | Results for this | | | e | 11:45 AM | | procedure are in the | | | | PST | | results section. | + +--------+ + + + documented in this encounter Results XR Chest 1 Vw (04/20/2017 11:45 AM PST) + + | Specimen | + + | | + + + + + | Narrative | Performed At | + + + | External films for comparison only - no result from [place]. | [facility] | + + + + +---------+ + + | Performing | Address | City/State/Zipcode | Phone Number | | Organization | | | | + +---------+ + + | [facility] | | | | + +---------+ + + documented in this encounter Visit Diagnoses Not on filedocumented in this encounter"
--- OUTSIDE RECORDS SUMMARY | ~2019-01-07 | XMS | Encounter Summary ---
Demographics + + + | Address | [address] | | | [place] [address] | + + + | Home Phone | | + + + | Preferred Language | Unknown | + + + | Marital Status | Single | + + + | Roman Catholic Affiliation | Unknown | + + [...] Team Providers + +------+ + | Care Professional Application Designer Name | Role | Phone | [...] | | | | | | PA-C [id number] | [address] | | | | | | [address] | [address] | | | | | | [address] | [address] [place] | | | | | | [place], | [place], [place] | | | | | | [place] [address] | [address] | | | | | | Phone: | Phone: | | | | | | [phone] | [phone] | | | | | | Fax: | Fax: | | | | | | [phone] | [phone] | +--------+--------+ + + + + Encounter Details +--------+---------+ + + + | Date | Type | Department | Care Team | Description | +--------+---------+ + + + | 07/09/ | Office | [facility] [place] | [facility], | Chronic hepatitis C | | 2016 | Visit | GASTROENTEROLOGY | [place] [address] [address] | without hepatic coma | | | | [address] | [place], [place] [address] | (HCC) (Primary Dx); | | | | [address] [place], [place] | [place], [place] | Elevated AFP; | | | | [address] | [address] | Alcohol abuse; | | | | [phone] | | Marijuana abuse; | | | [...] in this encounter Progress Notes Lucila Boston, MONITORING ANALYST - 07/10/2015 11:56 AM PDTFormatting of this [...] Log 02/26/2015 6.33 Final HCV Quantitative 02/26/2015 [id number] Final HCV Genotype 02/26/2015 1a Final Creatinine, External 02/26/2015 0.86 0.7 - 1.33 Final eGFR, External 02/26/2015 >60 60 - [id number] Final LDL Cholesterol, External 02/26/2015 184* 100 [...] hepatic coma (HCC) Alpha Fetoprotein, Tumor Marker Jvreh-4-Jacwnlgngyr, Total CHRISTIAN Screen, Qual CBC with Differential Comprehensive Metabolic Panel Ferritin Iron and Transferrin Protime INR Mitochrondrial Ab Smooth Muscle Ab Ceruloplasmin Misc Lab Referral US Abdomen Limited genotype 1a. 2. Elevated AFP Alpha Fetoprotein, Tumor Marker Ibmic-6-Ajavmvdgqek, Total CHRISTIAN Screen, Qual CBC with Differential Comprehensive Metabolic Panel Ferritin Iron and Transferrin Protime INR Mitochrondrial Ab Smooth Muscle Ab Ceruloplasmin Misc Lab Referral US Abdomen Limited 3. Alcohol abuse Alpha Fetoprotein, Tumor Marker [id number]-9-Fzmatntyqcy, Total CHRISTIAN Screen, Qual CBC with Differential Comprehensive Metabolic Panel Ferritin Iron and Transferrin Protime INR Mitochrondrial Ab Smooth Muscle Ab Ceruloplasmin Misc Lab Referral US Abdomen Limited 4. Marijuana abuse Alpha Fetoprotein, Tumor Marker Zcvnf-8-Cbgaewpngkj, Total CHRISTIAN Screen, Qual CBC with Differential Comprehensive Metabolic Panel Ferritin Iron and Transferrin Protime INR Mitochrondrial Ab Smooth Muscle Ab Ceruloplasmin Misc Lab Referral US Abdomen Limited 5. Elevated triglycerides with high cholesterol Alpha Fetoprotein, Tumor Marker Dlbbx-8-Fflgbhjtykq, Total CHRISTIAN Screen, Qual CBC with Differential Comprehensive Metabolic Panel Ferritin Iron and Transferrin Protime INR Mitochrondrial Ab Smooth Muscle Ab Ceruloplasmin Misc Lab Referral US Abdomen Limited 6. Thrombocytopenia (HCC) Alpha Fetoprotein, Tumor Marker Rqlcg-8-Udqeczzivbc, Total CHRISTIAN Screen, Qual CBC with Differential Comprehensive Metabolic Panel Ferritin Iron and Transferrin Protime INR Mitochrondrial Ab Smooth Muscle Ab Ceruloplasmin Misc Lab Referral US Abdomen Limited 7. Insulin dependent type 2 diabetes mellitus, uncontrolled (HCC) Alpha Fetoprotein, Tumor Marker Cefsq-7-Ddkugxvvzdj, Total CHRISTIAN Screen, Qual CBC with Differential Comprehensive Metabolic Panel Ferritin Iron and Transferrin Protime INR Mitochrondrial Ab Smooth Muscle Ab [facility]oplasmin [facility] Referral US Abdomen Limited Plan: [...] control guidelines. Inform tattoo parlors and formerly regional medical center providers of HCV infection. Avoid sharing personal [...] | | | | | [facility] [place] | | | | | | [address] | | | | | | | [...] | | + +---------+--------+ + + | Odgbu-4-Soeemqcmwba, | Lab | Routin | Chronic hepatitis [...] | | + +---------+--------+ + + | CHRISTIAN Screen, Qual | Lab | Routin | [...]
--- OUTSIDE RECORDS SUMMARY | ~2019-01-07 | XMS | Encounter Summary ---
Demographics + + + | Address | [address] | | | [place] [address] | + + + | Home Phone | | + + + | Preferred Language | Unknown | + + + | Marital Status | Single | + + + | Restoration Affiliation | Unknown | + + + | Race | Unknown | + + + | Ethnic Group | Unknown | + + + Author + + + | Author | [facility] | | | and [place] | + + + | Organization | [facility] | | [...] Providers + +------+ + | Care Supervisor Electron Tube Processing Name | Role | Phone | + +------+ + | Andreea Monzon DO | PCP | | + +------+ + Reason for Visit + + + | Reason | Comments | + + + | Follow-up | 3 month | + + + Follow Up (Routine) +--------+--------+ + + + + | Status | Reason | Specialty | Diagnoses / | Referred By | Referred To | | | | | Procedures | Contact | Contact | +--------+--------+ + + + + | Closed | | Cardiology | Diagnoses | Nicolás, | Femi, | | | | | 3 month f/u | Andreea Fagan DO | DO Lakisha | | | | | Procedures | [id number] | [address] | | | | | OFFICE | [address] | [address] | | | | | VISIT | WAY | [place] | | | | | REGULAR | [place], | [address] Phone: | | | | | | [place] [address] | [phone] | | | | | | Phone: | Fax: | | | | | | [phone] | [phone] | | | | | | Fax: | | | | | | | [phone] | | +--------+--------+ + + + + Encounter Details +--------+---------+ + + + | Date | Type | Department | Care Team | Description | +--------+---------+ + + + | 12/29/ | Office | [facility] | Lakisha Kahn DO | Coronary | | 2019 | Visit | CARDIOLOGY [place] | [address] | arteriosclerosis | | | | [address] | [place] | (Primary Dx); | | | | [address] | [address] | Essential | | | | [place] | | hypertension | | | | [address] | | | | | | [phone] | | | +--------+---------+ + + + [...] + + + | Blood Pressure | 132/70 | 12/29/2018 8:57 AM | | | | | PST | | + + + + + | Pulse | 61 | 12/29/2018 8:57 AM | | | | | PST | | + + + + + | Temperature | - | - | | + + + + + | Respiratory Rate | - | - | | + + + + + | Oxygen Saturation | 98% | 12/29/2018 8:57 AM | | | | | PST | | + + + + + | Inhaled Oxygen | - | - | | | Concentration | | | | + + + + + | Weight | 107.5 kg (237 lb) | 12/29/2018 8:57 AM | | | | | PST | | + + + + + | Height | 177.8 cm (5' 10") | 12/29/2018 8:57 AM | | | | | PST | | + + + + + | Body Mass Index | 34.01 | 12/29/2018 8:57 AM | | | | | PST | | + + + + + documented in this encounter Progress Notes Lakisha Kahn DO - 12/29/2018 9:00 AM PST [facility] Cardiology Cardiology Follow Up Note Reason for Consultation: history CAD Requesting Physician: Andreea Monzon History Obtained From: patient/chart review HISTORY OF PRESENT ILLNESS: Cardiac Problem List 1. Severe Coronary Artery Disease - April 2017 NSTEMI angiogram demonstrated severe CAD not amenable to PCI or Bypass surgery 2. Paroxysmal afib during NSTEMI not on anticoagulation 3. HTN Non Cardiac Problem List 4. DM II 5. GERD 6. Cirrhosis 7. Esophageal Varicies 8. Former Smoker 9. Former ETOH abuse 10. Hepatitis C- treated 11. Gallbladder perforation July 2017 12. DVT The patient is a 62-year-old male with the above past medical histories who presents to the cardiology office to establish care. He was previously followed at [facility]. He was last seen t here on 11/01/2017 for preoperative risk stratification for an upcoming gallbladder surgery. He has a history of a NSTEMI in April 2017, coronary angiography demonstrated severe coronar y artery disease, the films were reviewed by the interventional team at [facility] and it was deem ed that his disease was not amenable to PCI or coronary artery bypass grafting. Arlene murphy was advised. Echocardiogram at that time demonstrated a left ventricular ejection fra ction of 55-60%, grade 1 diastolic dysfunction, mild aortic stenosis, right ventricular syst olic pressure of 35-40 mmHg. He was admitted in July 2017 for a ruptured gallbladder and had a cholecystotomy tube placed. At his follow-up with cardiology in October, he was deemed high risk for surgery. The patient had a preoperative visit for surgery on 03/29/2018, however, his surgery was aga in delayed as he was felt to be too high a risk. He still has the cholecystotomy tube in [facility]. He has been referred to cardiac rehab and went for his first session last week. Unfortun ately, he could only find cardiac rehab in [place] which is an hour drive each way. The patient did about 10 minutes on the bike. He denies any chest pain with this exercise but di d have some shortness of breath. He has a stationary bike at home and rides that for about 5 -10 minutes per day. He also walks to his mailbox and back which is about a quarter of a mil e round trip. Again, he denies any chest pain with this exertion but does admit to some shor tness of breath. He denies any lower extremity swelling, he denies any orthopnea. He reports that he's gained about 20 pounds over the past 6 months. He attributes this to sitting at h ome and eating all day long. He also retired 5 months ago and is much less active than what he used to be. 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 His diabetes seems to be very out of control. He reports that it is not unusua l for his blood sugar to go into the 400s. He recently quit smoking on February 02. He quit drinking alcohol about 10-11 months ago. He denies any episodes of palpitations or rapid hea rt rates. He denies any episodes of syncope or presyncope. The patient was seen by me on 04/07/2018. At that time, he was referred to cardiac rehab in [place]. He was felt to be high risk for surgery. The patient still has his cholecystotomy tube in place. He is going to see another surgeon for a second opinion. He reports that he has had about 2 episodes of chest pain per month since we last saw each other. These episode s are quick and usually lasts about 20 to 30 seconds. He has not taken any sublingual nitrog lycerin for these episodes. He continues to feel dyspneic whenever he exerts himself. He rid es his stationary bike at home for 5 minutes and then walks about 1/4 mile to half mile. He is able to do this exertion without any chest pain but is limited by shortness of breath. He denies any episodes of palpitations or paroxysms of A. fib that he is aware of. Unfortunate ly, he was not able to get into cardiac rehab in [place], he does not want to travel [facility] [facility] cardiac rehab. His blood sugars have still been very uncontrolled . He has been trying to eat better. He has some mild lower extremity swelling he denies any orthopnea. Since that time, he reports that his cholecystotomy tube got hooked on the counter while he was walking and got pulled out of place. He called his surgeon in [place] and was told to cover it. He underwent an MRCP and blood work, which demonstrated that his bile duct is in tact, but it may have a stricture. This is per the patient, we have requested these records . The plan is for conservative management of his cholecystotomy area. It is still healing . He denies any surrounding erythema or warmth. It does continue to drain, particularly wh en he breathes. There are plans for an ERCP in the future and possible cholecystectomy in t he future. The patient recently went to the emergency department for loss of vision. While he was there, he reported that he was having pain in his left lower extremity. An ultrasou nd was performed, which demonstrated a left lower extremity DVT. He was started on Eliquis . He followed up with his primary care provider, who reportedly did not want to prescribe E liquis. He reports that she wanted me to handle this. Since we last saw each other, he den ies any chest pains. He denies any usage of his nitroglycerin. His main limiting factor to exertion is bilateral lower extremity pain from neuropathy and shortness of breath. He adm its that he is very inactive and deconditioned. He plans to schedule cardiac rehab in Oct. Given his recent DVT, this may need to be delayed. Interim history I last saw the patient 3 months ago. Since that time, he has been doing okay. He underwen t an ERCP at [facility]. He reports that he had to do another scan of some sort and, after which they will decide which way to go in terms of his gallbladder and biliary system. He continu es to have drainage from his cholecystotomy tube site. He has to change his dressings about 3 times per day. He has been tolerating anticoagulation well for his history of DVT. He denies any bleeding issues. He has occasional mild chest pains for which he has taken nitro glycerin on occasion, but these are sporadic, overall, he feels that his angina is well cont rolled. He has been attending cardiac rehab, which he reports is going well. He does feel that he is somewhat deconditioned with everything that has been going on over the past year. He admits to some mild shortness of breath when he exerts himself. He denies any signifi cant lower extremity swelling, orthopnea, PND. PAST MEDICAL & SURGICAL HISTORY Past Medical History Diagnosis Date Dermatitis Diabetes mellitus, type 2 (HCC) GERD (gastroesophageal reflux disease) Hepatitis C Hyperlipidemia Hypertension Old myocardial infarction 04/2017 Sepsis (HCC) Past Surgical History Procedure Laterality Date ESOPHAGEAL VARICE LIGATION HAND SURGERY TONSILLECTOMY MEDICATIONS Current Outpatient Medications on File Prior to Visit Medication Sig Dispense Refill apixaban (ELIQUIS) 5 mg tablet Take 1 tablet by mouth 2 times daily. 60 tablet 3 gabapentin (NEURONTIN) 300 mg capsule Take 300 mg by mouth 3 times daily. insulin aspart (NOVOLOG FLEXPEN) 100 units/mL injection pen Inject 30 Units under the s kin (SUBC) two times daily. Inject three times daily per sliding scale before meals. If CBGs >150: no insulin; 150-200: 5 units; >201 10 units insulin glargine (LANTUS SOLOSTAR) 100 units/mL injection (pen) Inject 60-80 Units unde r the skin 2 times daily. isosorbide mononitrate (IMDUR) 30 mg ER tablet Take 1 tablet by mouth once daily. Indic ations: Chronic Stable Angina lactulose 10 g/15 mL solution Take 30 mLs by mouth 3 times daily. losartan (COZAAR) 25 mg tablet Take 25 mg by mouth Daily. mesalamine (LIALDA) 1.2 g EC tablet 1.2 g. mesalamine (PENTASA) 500 MG CR capsule Take 500 mg by mouth two times daily. metoprolol tartrate (LOPRESSOR) 25 mg tablet Take 1 tablet by mouth 2 times daily. omeprazole (PRILOSEC) 40 MG capsule Take 40 mg by mouth every morning (before breakfast ). rifAXIMin (XIFAXAN) 550 mg TABS Take 550 mg by mouth 2 times daily. rosuvastatin (CRESTOR) 20 mg tablet Take 20 mg by mouth nightly. No current facility-administered medications on file prior to visit. Allergies Allergies Allergen Reactions Dilaudid [Hydromorphone] Other (See Comments) Patient became overly aggressive. FAMILY HISTORY Family History Problem Relation Age of Onset Heart attack Father Cancer Father SOCIAL HISTORY Social History Marital status: Single Spouse name: N/A Number of children: N/A Years of education: N/A Occupational History Not on file. Social History Main Topics Smoking status: Former Smoker Smokeless tobacco: Never Used Alcohol use No Drug use: No Sexual activity: Not on file Other Topics Concern Not on file Social History Narrative No narrative on file PHYSICAL EXAM Vitals: 12/29/18 0857 BP: 132/70 Pulse: 61 SpO2: 98% Weight: 107.5 kg (237 lb) Height: 1.778 m (5' 10") Physical Exam GENERAL: Well developed, well nourished, in no distress. Appears approximately stated age. HEENT: Normocephalic, atraumatic. EYES: PERRL, sclerae anicteric, no xanthelsasmas NECK: No JVD, lymphadenopathy, thyromegaly, bruits. Carotid pulses are 2+ bilaterally LUNGS: Clear bilaterally, with no rales, rhonchi or wheezing noted, respirations unlabored HEART: Nondisplaced PMI, regular rate and rhythm, S1, S2 normal. No murmurs, rubs or gallop s noted. ABDOMEN: Soft, nontender, he has hepatomegaly, cholecystotomy site is covered, bandage is c lean and dry. Bowel sounds are normal in all 4 quadrants. EXTREMITIES: No edema. Radial pulses 2+ bilaterally. DP and PT pulses are 2+ bilaterally. SKIN: Warm and dry, capillary refill is normal, no lesions. NEUROLOGIC: Awake, alert and oriented x 3. No focal motor deficits. PSYCHIATRIC: Appropriate, affect appears normal DATA Most recent blood work from 02/16/2018 reviewed including white blood cell count 5.68, hemogl obin 13.9, hematocrit 38.0, platelets 72, BUN 13, creatinine 0.82, potassium 5.0, chloride 1 13, calcium 8.1, total bilirubin 1.6, total protein 6.8, albumin 2.8, alkaline phosphatase 1 14, AST 99, a.l. T-20 9, his last hemoglobin A1c was 9.8. EK04/07/18 ordered and reviewed by myself normal sinus rhythm 65 bpm, inferior infarct ag e undetermined, nonspecific ST-T wave changes. Last Echo: Echo 10/27/17: 1. The left ventricle is normal in size, wall thickness and systolic function EF 60-65%. 2. The right ventricle is normal in size and function. 3. Mild degenerative changes in the aortic and mitral vavles. 4. There is no pericardial effusion. Last cath: Cath 04/28/17: CONCLUSIONS: 1.Diffuse moderate to moderately severe CAD [...] PCI of the culprit vessel, determined by stress nuclear scan; ad hoc attempt to do PCI of OM-1 is not advisable given the calcification and tortuosity of this vessel and limited availability of equipment here (no rotational atherectomy) and patient's high co-morbid conditions, anemia and liver disease and thrombocytopenia. ASSESSMENT & PLAN 1. Severe Coronary Artery Disease - April 2017 NSTEMI angiogram demonstrated severe CAD not amenable to PCI or Bypass surgery 2. Brief episode paroxysmal afib during NSTEMI not on anticoagulation 3. HTN 4. DM II 5. GERD 6. Cirrhosis 7. Esophageal Varicies 8. Former Smoker 9. Former ETOH abuse 10. Hepatitis C- treated 11. Gallbladder perforation July 2017 12. DVT - The patient is a 62-year-old male with complex past medical history as above who presents to the cardiology office to follow up. Recently, he has been doing well from a cardiac karime dpoint. He denies any exertional chest pains, but does have exertional shortness of breath w hich could be an anginal equivalent but could also be related to COPD or deconditioning. He denies any heart failure symptoms. He had a cholecystotomy which recently was dislodged by t he patient, he has a track which continues to drain daily. He was recently found to have a D VT in his LLE. This is likely provoked given his open abdominal wound. He will need to be on anticoagulation for 3-6 months. - Continue Eliquis 5mg po bid - Continue Crestor 10 mg by mouth daily, continue metoprolol titrate 25 mg by mouth twice d aily, continue losartan 25 mg by mouth daily. Continue ASA 81mg po daily. Continue SL nitro PRN. - Continue Imdur to 60mg po daily. - Will defer increasing Crestor with history cirrhosis - He is high risk for semi-elective surgery. No further cardiac testing is indicated for ri sk stratification. - Follow up in 3 months Thank you for allowing me to participate in the care of this patient. Primary Care Physician: ANDREEA Kahn DO documented in this enco unter Plan of Treatment +--------+---------+ + + + | Date | Type | Specialty | Care Team | Description | +--------+---------+ + + + | 04/06/ | Office | Cardiology | Lakisha Kahn DO | | | 2019 | Visit | | [address] | | | | | | [place], [place] | | | | | | [address] | | | | | | | | +--------+---------+ + + + documented as of this encounter Visit Diagnoses + + | Diagnosis | + + | Coronary arteriosclerosis - Primary Coronary atherosclerosis of unspecified type of | | vessel, [place] and [place] or graft | + + | Essential hypertension Unspecified essential hypertension | + + documented in this encounter
--- OUTSIDE RECORDS SUMMARY | ~2019-01-07 | XMS | Encounter Summary ---
Demographics + + + | Address | [address] | | | [place] [address] | + + + | Home Phone [...] Author + + + | Author | [facility] [employer] [facility] | + + + | Organization | [facility] [employer] [facility] | + + + | Address | Unknown | + + + | Phone | Unavailable | + + + Support + + +---------+ + | Name | Relationship | Address | Phone | + + +---------+ + | Mary Medellin | ECON | Unknown | | + + +---------+ + Care Team Providers + +------+ + | Care Facilities Plant Engineer Name | Role | Phone | [...] | | 2017 | | Center at [facility] [address] | | - General | | | | [address] [address] | | | | | | Mailcode: [address] | | | | | | [facility] and | | | | | | Healing, [address] | | | | | | [place], [place] | | | | | | [address] | | | | | | [phone] | | | +--------+ + + + [...]
--- OUTSIDE RECORDS SUMMARY | ~2019-01-07 | XMS | Encounter Summary ---
Demographics + + + | Address | [address] | | | [place] [address] | + + + | Home Phone | | + + + | Preferred Language | Unknown | + + + | Marital Status | Single | + + + | Christian Affiliation | NRP | + + + | Race | or | + + + | Ethnic Group | Not or | + + + Author + + + | Author | [facility] [employer] [facility] | + + + | Organization | [facility] [employer] [facility] | + + + | Address | Unknown | + + + | Phone | Unavailable | + + + Support + + +---------+ + | Name | Relationship | Address | Phone | + + +---------+ + | Mary Medellin | ECON | Unknown | | + + +---------+ + Care Team Providers + +------+ + | Care Tool And Cutter Grinder Name | Role | Phone | + [...] | | | | [address] | [facility] | | | | | Mailcode: Center | [place], [place] | | | | | [facility] and | [address] | | | | | [facility] [address] | [phone] | | | | | [place], [place] | | | | | | [address] | | | | | | [phone] | | | +--------+ + + + [...]
--- OUTSIDE RECORDS SUMMARY | ~2019-01-07 | XMS | Encounter Summary ---
Demographics + + + | Address | [address] | | | [place] [address] | + + + | Home Phone | | + + + | Preferred Language | Unknown | + + + | Marital Status | Single | + + + | Gnosticism Affiliation | NRP | + + + | Race | or | + + + | Ethnic Group | Not or | + + + Author + + + | Author | [facility] | + + + | Organization | [facility] [employer] [facility] | + + + | Address | Unknown | + + + | Phone | Unavailable | + + + Support + + +---------+ + | Name | Relationship | Address | Phone | + + +---------+ + | Mary Medellin | ECON | Unknown | | + + +---------+ + Care Team Providers + +------+ + | Care Sql Server Architect Name | Role | Phone | + [...] | | 2019 | | Center at [facility] [address] | [address] | | | | | [place] | [address] | | | | | Mailcode: Center | [place], [place] | | | | | for Health and | [address] | | | | | [facility] [address] | [phone] | | | | | [place], [place] | | | | | | [address] | | | | | | [phone] | | | +--------+ + + + [...]
--- OUTSIDE RECORDS SUMMARY | ~2019-01-07 | XMS | Encounter Summary ---
Demographics + + + | Address | [address] | | | [place] [address] | + + + | Home Phone | | + + + | Preferred Language | Unknown | + + + | Marital Status | Single | + + + | Rastafarian Affiliation | Unknown | + + + | Race | Unknown | + + + | Ethnic Group | Unknown | + + + Author + + + | Author | [facility] | | | and [place] | + + + | Organization | [facility] | | | and [...] Team Providers + +------+ + | Care Paper Bundler Name | Role | Phone | + [...] + + | 11/24/ | Telephone | [facility] | Kady Cortez | Other (Patient | | 2019 | | CARDIOLOGY KAVYA Angeles, President Practicing Urologist | update. ) | | | | [address] | | | [address] | [address] [place] | | | | | | [address] | | | | | | [phone] | | | +--------+ + + + [...] [place] | | | | | | [address] | | | | | | | | +--------+---------+ + + + documented as of this encounter Visit Diagnoses Not on filedocumented in this encounter"
--- OUTSIDE RECORDS SUMMARY | ~2019-01-07 | XMS | Encounter Summary ---
Demographics + + + | Address | [address] | | | [place] [address] | + + + | Home Phone [...] + + | Author | [facility] | + + + | Organization | [facility] [employer] [facility] | + + + | Address | Unknown | + + + | Phone | Unavailable | + + + Support + + +---------+ + | Name | Relationship | Address | Phone | + + +---------+ + | Mary Medellin | ECON | Unknown | | + + +---------+ + Care Team Providers + +------+ + | Care Retail Business Manager Name | Role | Phone | + +------+ + | Shakir Monzon MD | PCP | | + +------+ + Reason for Visit + + + | Reason | Comments | + + + | Pre-op evaluation | | + + + Encounter Details +--------+---------+ + + + | Date | Type | Department | Care Team | Description | +--------+---------+ + + + | 02/16/ | Office | Preoperative | Mariama Navarro | Preop examination | | 2019 | Visit | Medicine Clinic at | MD Annette [address] | (Primary Dx); | | | | [facility] 4th Floor Day | [address] | Cholangitis; | | | | Stay [address] | [place] [address] | Gallbladder | | | | [address] | [phone] | perforation | | | | Mailcode: [id number] | | | | | | Vivian Mazariegos | | | | | | [address] [place], [place] | | | | | | [address] | | | | | | [phone] | | | +--------+---------+ + + + Anesthesia Record + + [...] Pressure | 171/90 | 02/16/2018 7:53 AM | | | | | PST | | + + + + + | Pulse | 67 | 02/16/2018 7:53 AM | | | | | PST | | + + + + + | Temperature | 36.8 C (98.2 F) | 02/16/2018 7:53 AM | | | | | PST | | + + + + + | Respiratory Rate | 16 | 02/16/2018 7:53 AM | | | | | PST | | + + + + + | Oxygen Saturation | 98% | 02/16/2018 7:53 AM | | | | | PST | | + + + + + | Inhaled Oxygen | - | - | | | Concentration | | | | + + + + + | Weight | 102.8 kg (226 lb 9.6 | 02/16/2018 7:53 AM | | | | oz) | PST | | + + + + + | Height | 180.3 cm (5' 11") | 02/16/2018 7:53 AM | neck 44cm | | | | PST | | + + + + + | Body Mass Index | 31.6 | 02/16/2018 7:53 AM | | | | | PST [...] + + documented as of this encounter Patient Instructions Patient Instructions Mariama Navarro MD - 02/16/2018 8:00 AM PSTPREOPERATIVE INSTRUCTI ONS Empty stomach before surgery On the day BEFORE your surgery, eat and drink like you normally do NOTHING to eat or drink after midnight the night before surgery. This includes water, coffee, candy, mints, gum. If you have been instructed to take medications the morning of surgery, you may take a s mall sip of water Medications Instructions Unless otherwise directed by your surgeon, do not take any Aspirin, vitamin E, Fish Oil, non-steroidal anti-inflammatory (NSAIDs i.e. Advil, Aleve, Ibuprofen) or herbal supplement s 7 days prior to your surgery. These drugs may interfere with normal blood clotting and ma y cause excessive bleeding and bruising during or after the surgery. Diabetes instructions before surgery The night before the procedure Lantus 30 units. The morning of the procedure Lantus 30 units. Do not take your short acting insulin on the morning of surgery Check your blood sugars The night before surgery. When you wake up and every 4 hours until you arrive at the hospital on the day of your proc edure. If you have low blood sugars (less than 70) while you are fasting 1. Take 4 glucose tablets 2. Wait 15 minutes, and then recheck your sugar 3. If it is still less than 70, repeat treatment until the level is over 70 4. When you get to the hospital, report what time you had a low blood sugar 5. If you do not have glucose tablets, you can drink 4 ounces of clear liquid (apple juice, khadijah estuardo); however your surgery may be delayed a few hours. If your blood sugars are higher than 250 on the morning of surgery and you have an insulin "sliding scale" correction regimen, please follow it to correct the high blood sugar. On the evening before your surgery, take your usual evening medications On the morning of surgery TAKE the following medications with a sip of water: Metoprolol Isosorbide mononitrate Rifaximin Omeprazole On the morning of surgery DO NOT TAKE any of your other medications. If you are taking Coumadin (warfarin), Plavix or any other blood thinners please let you r surgical team know as medication changes may be necessary. If you need a pain medication for general purposes, use Tylenol as directed. OK to take it even on the morning of surgery, if needed. If you are in doubt about any medications that you are taking, please contact our office at the phone number listed above. Skin preparation to help avoid surgical site infections HIBICLENS GUIDE TO GENERAL SKIN CLEANSING AT HOME BEFORE SURGERY Before you bathe or shower: ? Read the instructions given to you by your healthcare practitioner, and begin your genera l skin cleansing protocol as directed. ? Carefully read all directions on the product label. ? Hibiclens is not to be used on the head or face, keep out of the eyes, ears and mouth. ? Hibiclens is not to be used in the genital area. ? Hibiclens should not be used if you are allergic to chlorhexidine gluconate or any other ingredients in this preparation. *See Hibiclens label for full product information and precautions. When you bathe or shower the night before your surgery: ? If you plan to wash your hair, do so with your regular shampoo. Then rinse hair and body thoroughly to remove any shampoo residue. ? Wash your face with your regular soap or water only. ? Thoroughly rinse your body with warm water from neck down. ? Use Hibiclens as you would any other liquid soap. Please do not put the Hibiclens on a wa sh cloth, apply directly to the skin and wash gently. Apply the minimum amount of Hibiclens necessary to cover the skin. Leave the Hibiclens on your skin for 1 minute, then rinse off. ? Rinse thoroughly with warm water. ? Do not use your regular soap after applying and rinsing Hibiclens. When using Hibiclens for a second day in a row (morning of surgery, as soon as you wake up) : ? Shower/bathe again using Hibiclens in the same method as described above. ? Do not apply any lotions, deodorants, powders or perfumes to the body areas that have been cleaned with Hibiclens. Other Important Guidelines ? Do not shave the surgical area Do not smoke, drink alcohol or use recreational drugs for 24 hours before your surgery Watch for any change in your health condition. Let your surgeon know right away if you do not feel well. ? Do not wear makeup, perfume, lotions, deodorant, powder or hairspray. Do not wear any jewelry to the hospital. Wear loose, comfortable clothing. Leave all your valuables at home. Allow enough travel time so you re not late for your check in for surgery. If you were not given special soap or wipes, take a bath or shower and remember to shamp oo your hair using your usual hair product before your arrival at the hospital. Please remember to brush your teeth the night before and the morning of your procedure. Preventing post op complications while you are in the hospital Use an incentive spirometer or peep breathe to keep your lungs working properly an d to help prevent respiratory complications. It helps you take long, deep breaths. Use it at least once every hour while you are awake. Leg and feet exercises will maintain good circulation and help prevent blood clots in yo ur legs. Sometimes your doctor will order sequential air compression stockings. Compressed air helps the circulation in your legs. Walking and moving will help stimulate normal circulation and deep breathing. After you r surgery, your nurse may ask you to sit, stand or walk. Surgery check-in location: Admitting - [facility], ninth floor lob Surgery Check in Time: The Preoperative Medicine Clinic is not in the position to give you accurate information regarding surgical check in time. We refer you back to your surgical office regarding this important information. Going Home Your surgical team will decide when you are medically ready to go home. If you are released to go home on the same day as your procedure/surgery please note the following: You will not be able to drive. You will be required to have a competent person drive you or accompany you by taxi or pu blic transportation on the day of discharge. It is also recommended that you have a competent person assist you and look after you on the first night after you have undergone regional blocks (72 hours for patients going home with regional block pump), deep sedation, and/or general anesthesia. If you stay in the hospital after surgery, please arrange for your ride to come for you around 9AM on the day your doctor says you can go home. If you have questions or concerns after you go home, call your doctor s office. If it is after office hours, call the [facility] streetsweeper operator at [phone] and ask them to page him or h er. documented in this encounter Progress Notes Mahin Middleton MA - 02/16/2018 8:00 AM PSTVenipuncture performed in clinic, blood sampl e obtained from Right antecubital site Electronically signed by Mahin Middleton MA at 02/16 4:54 PM Mariama Younger MD - 02/16/2018 8:00 AM PSTFormatting of this note mi ght be different from the original. PREOPERATIVE CONSULT NOTE Author: Mariama Navarro MD Referring Physician: Dr. Clinton Morillo Primary Care Provider: Shakir Monzon MD Reason for Consult: Preoperative evaluation and risk assessment Proposed Procedure/Date: ERCP, Lap lay (possible open) :: DOS TBD HISTORY OF PRESENT ILLNESS: Bret Espinal Jr. is a 62 y.o. male here for preoperative evalu ation of medical problems in anticipation of the above procedure. Pt has a complicated medic al history, with gallbladder perforation (July 2017) with resultant angela-hilar abscesses and biliary stricture, s/p cholecystostomy tube placement. He also has HCV and EtOH cirrhosis w ith a history of varices and HE, well-controlled on Lactulose. Hx of ETOH use but sober for almost 1 year. HCV was treated and last check was undetectable (per patient). He has medical ly managed CAD. Long time smoker, but no cigarettes x 3 weeks. Pertinent medical problems discussed during this visit: CAD, s/p NSTEMI in 2018 not amenable to PCI. Last coronary angiogram demonstrated multiv essel disease (99% D1, 80% distal D2, 100% occulusion of apical LAD, 70% SAVANAH, 70% small OM2, 50% mid RCA). Saw cardiology in May and was supposed to see again in January but canceled appointme nt pending scheduling of upcoming surgery. Recently started on long acting nitro (per phone note in EPIC) Not on daily asa because of underlying liver disease and risk of bleeding Atrial Fibrillation in the setting of NSTEMI--resolved and not on ac Cirrhosis (ETOH hx, HCV)--takes Rifaximin and lactulose Esophageal varices Diabetes. On insulin. Medications. Insulin 40units Lantus twice a day. Short acting 2-3 times per day. Blood s ugars average in the 200s. Last A1c 9.8 in July 2017 GERD--on Omeprazole Presumed DARIEL based on observed apnea and hypoxemia during EGD. Never did the formal slee p study and not on CPAP Perioperative cardiac risks: CAD yes CHF no CVA no CKD with creatinine >2 no DM treated with insulin Yes Functional Capacity: Low (1-4 mets) Prior complications of anesthesia: none ROS: HPI: Prior Anesthetic Problems: No Pulmonary: salvage determiner smoker, quit completely 3 weeks ago. No hx of COPD shortness of breath with exer tion no cough no stridor no wheezing no Recent Respiratory Infection Pt. Has no asthma no COPD Dx of sleep apnea Untreated Cardiovascular: Functional Capacity: Low - cyanosis, palpitations and syncope chest pain with exertion no CHF no hypertension CA D Sx medically managed past NV Last NV: < 1 year no valvular problems/murmurs no arrhyt hmia no Cardiac assist devices no pacemaker/ICD GI/Hepatic: On rifaximin and lactulose. Has hepatic encephalopathy if he doesn't take lactulose. no GI Bleed GERD Control: well controlled liver disease esophageal varices and cirrhosis hep atitis hepatitis C Recovered Renal: no renal failure no electrolyte abnormalities no dialysis Endo: Long, slow, Prednisone taper from October through January. He has been off for 4 weeks. Diabetes: poorly controlled > 300 no Endocrine Other Hx Corticosteroid Use: Neuro/Psych: No Head Conditions No Spine Conditions No Neuromuscular Conditions no Psych Disorder Cur rent pain score: 0 Musculoskeletal: Left shoulder pain at night. Told he has two torn ligaments in his left shoulder. no arthr itis No Muscular Disorders Heme/Onc: Pt. has: no active bleeding no bleeding disorder No clotting disorders No hemoglobin d isorders no malignancy Infectious Disease: no MRSA no VRE Skin: Site of right upper quadrant tube open but not infected. no open wounds no skin conditions AutoImmune Disorders: No autoimmune disorders Current medications reviewed / updated Current Outpatient Prescriptions Medication Sig aspirin 325 mg oral tablet Take 325 mg by mouth once daily as needed. Indications: shou lder pain ibuprofen 200 mg oral tablet Take 200 mg by mouth once daily as needed. Indications: sh oulder pain insulin aspart U-100 (NOVOLOG FLEXPEN U-100 INSULIN) 100 unit/mL subcutaneous insulin p en Inject 30 Units under the skin (SUBC) two times daily. Inject three times daily per slidi ng scale before meals. If CBGs >150: no insulin; 150-200: 5 units; >201 10 units isosorbide mononitrate CR 30 mg oral tablet extended release 24 hr Take 1 tablet by cj th once daily. Indications: Chronic Stable Angina Pectoris lactulose 10 gram/15 mL oral solution Take 30 mL by mouth three times daily. LANTUS SOLOSTAR U-100 INSULIN 100 unit/mL (3 mL) subcutaneous insulin pen Inject 40 Uni ts under the skin (SUBC) every twelve hours. losartan 25 mg oral tablet Take 25 mg by mouth once daily. mesalamine 500 mg oral capsule, extended release Take 500 mg by mouth two times daily. metoprolol tartrate 25 mg oral tablet Take 1 tablet by mouth two times daily. nicotine polacrilex 2 mg buccal gum Take 1 each by mouth as needed. Chew slowly nitroglycerin 0.4 mg sublingual tablet, sublingual Place 1 tablet under tongue every fi ve minutes as needed for chest pain. Place under tongue and allow to dissolve. Administer e very 5 minutes, max of 3 doses in 15 minutes. omeprazole 40 mg oral capsule,delayed release(DR/EC) Take 40 mg by mouth once daily in the morning. rifAXIMin 550 mg oral tablet Take 550 mg by mouth two times daily. rosuvastatin (CRESTOR) 10 mg oral tablet Take 10 mg by mouth once daily. Level of confidence in medication reconciliation accuracy: High Allergies reviewed / updated Allergies Allergen Reactions Hydromorphone Anxiety, Confusion and Delirium Past medical history reviewed / updated Past Medical History: Diagnosis Date Cirrhosis of liver (HCC) from EtOH and HCV with esophageal varices, hepatic encephalopathy Coronary artery disease NSTEMI April 2017, not amenable to surgery or PCI Diabetes (HCC) GERD (gastroesophageal reflux disease) HCV (hepatitis C virus) Past surgery reviewed / updated Past Surgical History Procedure Laterality Date Cholecystostomy, percutaneous 07/2017 Family history reviewed / updated Family History Problem Relation Coronary Artery Disease Father bypass surgery at 54, at 56 lymphoma Social history reviewed / updated Social History Substance Use Topics Smoking status: Former Smoker Packs/day: 0.50 Years: 40.00 Types: Cigarettes Smokeless tobacco: Former User Types: Chew Alcohol use No PHYSICAL EXAM: Last Vitals: BP 171/90 | Pulse 67 | Temp (Src) 36.8 C (98.2 F) (Oral) | RR 16 | Ht 1.80 3 m (5' 11") | Wt 102.8 kg (226 lb 9.6 oz) | SpO2 98% | BMI 31.6 kg/(m^2) Body mass index is 31.6 kg/m. General: Appearance: Healthy, Age appropriate and No distress LOC: Alert HEENT: Normocephalic/Atraumatic, Normal sclerae/conjunctivae, PERRL and EOMI Airway: Dentition Comments: fillings, and needs a root canal on the left side but waiting until aft er this surgery Mallampati: 2 Mouth Opening: > 3 cm TM Distance:> 6 cm Rasmussen: No C-Spine ROM: Normal Neck Anatomy: Normal Jaw Protrusion: Normal (lower incisors go above upper incisors) Pulmonary: Respiratory: pulmonary exam normal Breath Sounds: breath sounds normal Cardiovascular: Rhythm: Regular Rate: Normal Cardiovascular comments: No M/G/R; no pedal edema Abdomen: General: Normal Body Habitus: obesity Bowel Sounds: bowel sounds are normal GI Comments: ri ght upper quadrant with drain in place. Musculoskeletal: Range of Motion: Normal range of motion Musculoskeletal Comments: No obvious deformities n oted. Neuro/Psych: Affect: Normal Cognitive Status: Normal Speech: Normal speech Strength: Normal Muscle Tone: Normal Movement: Normal Gait Station: Normal Cranial Nerves: Normal Sensation: Normal to light touch Comments: No obvious neurologic deficits noted; no asterixis Skin: Color: skin color normal Texture: Normal Turgor: turgor normal Temperature: Warm Other Implanted Devices: Implanted devices: None LABS & DATA REVIEWED/ORDERED Lab Results Component Value Date WBC 5.68 02/16/2018 HB 13.9 02/16/2018 HCT 38.0 02/16/2018 PLT 72 02/16/2018 MCV 87.2 02/16/2018 RDW 42.5 02/16/2018 Lab Results Component Value Date NA 138 02/16/2018 K 5.0 02/16/2018 CL 113 02/16/2018 BICARB 19 02/16/2018 BUN 13 02/16/2018 CR 0.82 02/16/2018 GLU 254 02/16/2018 CA 8.1 02/16/2018 AST 99 02/16/2018 ALT 29 02/16/2018 AP 114 02/16/2018 TBILI 1.6 02/16/2018 TP 6.8 02/16/2018 ALB 2.8 02/16/2018 Lab Results Component Value Date ABO A 02/16/2018 RH Positive 02/16/2018 Lab Results Component Value Date A1C 9.8 (H) 08/03/2017 EKG: Personally reviewed. NSR HR 74. q waves III, aVF, poor rw progression 04/2017 Coronary catherization CONCLUSIONS: 1.Diffuse moderate to [...] about 50% in mid RCA and PL-1 Outside records reviewed from [facility] and "media" tab. Findings pertinent to this pr eoperative visit are as follows: Perioperative risk calculators 2014 ACC/AHA Perioperative Cardiac Risk Stratification (assumes non-emergent, non-cardiac p rocedure) Are active cardiac conditions present? No Calculate the combined surgical and patient-specific risk: RCRI risk calculator (one point for each "yes" answer) A. Elevated risk surgery?: yes B. Ischemic heart disease: yes C. Compensated / prior heart failure: no D. Diabetes mellitus (treated with insulin): yes E. Renal insufficiency (Cr>2): no F. Cerebrovascular disease: no Risk of MACE 0 risk factors - 0.4% 1 risk factor - 0.9% 2 risk factors - 6.6% 3 risk factors - 11% The risk of major adverse cardiac event (MACE) is: at least 11% (greater than 1%). Determine functional capacity: Functional capacity is <4 METs. However, further CAD risk s tratification would not change the decision to proceed with surgery because he has been seen by cardiology, he knows the risks of surgery and is choosing to go forward with procedure. He is on beta ashlyn and followed by a shaker repairer. Estimated ASA class 4 ASSESSMENT and RECOMMENDATIONS: Perioperative risk assessment: Bret Espinal JrSyeda is a 62 y.o. male with diagnosis of p erforated gallbladder and subsequent perihilar abscess with drains placed, scheduled for ERC P and cholecystetectomy. Based on the clinical information obtained and reviewed during thi s visit, the overall assessment is that the patient is having elective major surgery with id entified risk factors. The patient is optimized for surgery. Additional testing/optimiza tion is not needed. Medication management recommendations: The patient was advised to continue all usual med ications except as noted in Patient Instructions (After Visit Summary given to pt) Pre-procedure antibiotic recommendation: Per standard protocol. CAD, s/p NSTEMI in 2018 not amenable to PCI. Last coronary angiogram demonstrated multiv essel disease (99% D1, 80% distal D2, 100% occulusion of apical LAD, 70% SAVANAH, 70% small OM2, 50% mid RCA). Saw cardiology in May and was supposed to see again in January but canceled appointme nt pending scheduling of upcoming surgery. Started on long acting nitro in October and has fewer episodes of chest discomfort. Has not used the short acting nitro. He is at increased risk of cardiac event given his underlying disease. He should be clos ca monitored in the angela-op setting. I recommend telemetry, frequent vitals, and LOW thresh old for checking ECG and troponin if he has chest discomfort/pain. Atrial Fibrillation in the setting of NSTEMI. Currently in sinus. HTN not well controlled today. He did not take his medications today and I stressed the importance of compliance to meds in this week leading up to surgery. Cirrhosis (ETOH hx, HCV). MELD 9. Appears well compensated today. He takes Lactulose and Rifaximin. If he misses doses he gets enephalopathic, notable for change in speech pattern and some confusion. Continue medications immediately post op (when tolerating PO) since he w ill have skipped his lactulose dose on the morning of surgery. Esophageal varices Diabetes. On insulin. His blood sugars are not optimally controlled. I have advised him to use the higher dose of Lantus (40 units) twice a day that he was Rx'd in the last month. He knows to use 30 units the night before surgery and the morning of surgery, even if his bl ood sugar is less than 200. (he sometimes doesn't take insulin if his CBG is <150 bc of fear of lows--but rarely gets low). In the hospital he should be continued on his home dose of l minda acting insulin, and start his short acting insulin with moderate sliding scale as soon a s he is eating. I recommend aggressive control of CBGs in post op setting for optimal healin g. GERD. controlled DARIEL NOT on CPAP. He had witnessed apnea during an EGD and was referred for sleep study b ut did not complete it. He will need close angela-op monitoring of respiratory status. May waleska madden BiPap and/or nocturnal oximetry and RT consult while in hospital. Thrombocytopenia. Stable. Likely 2/2 his underlying liver disease. Shoulder pain left. Use caution when positioning for surgery given his left shoulder inj ury. Recent steroid use. Was on a Prednisone taper from Oct-Jan for UC. Last dose early Dece (he was down to 2.5 mg daily). I do not suspect this will interfere with his own abilit y to mount a stress response. Will be at a hotel the night before surgery and needs scheduling phone call to either myesha morocho or his SO Mary's mobile numbers (in [place]). Thank you for the opportunity to contribute to this patient's care. Mariama Navarro MD [facility] 4TH FLOOR DAY STAY [address] [place] [address] I spent time (60 minutes, >50% of the visit) counseling the pt regarding perioperative risk (cardiac/bleeding/ DVT/ respiratory failure/ infection, etc) and methods to mitigate risk. I advised the patient regarding NPO requirements, hydration before surgery, showering, gen eral body hygiene. All pre-procedure instructions given to the patient (after-visit summary ). All of patient's questions were addressed. The patient verbalized understanding of the instructions given. P STdocumented in this encounter Plan of Treatment +--------+ [...] | + +--------+ + + + | IA COLLECTION VENOUS | Routin | 02/16/2018 | [...] + documented in this encounter Results CBC (HEMOGRAM) ONLY (02/16/2018 8:12 AM PST) + + + + + + | Component | Value | Ref Range | Performed | Pathologist | | | | | At | Signature | + + + + + + | WHITE CELL | 5.68 | 3.50 - 10.80 | [facility] | | | COUNT | | K/cu mm | LABORATORY | | | | | | SERVICES, | | | | | | CORE | | + + + + + + | RED CELL | 4.36 (L) | 4.50 - 6.00 | [facility] | | | COUNT | | M/cu mm | LABORATORY | | | | | | SERVICES, | | | | | | CORE | | + + + + + + | HEMOGLOBIN | 13.9 | 13.5 - 17.5 | [facility] | | | | | g/dL | LABORATORY | | | | | | SERVICES, | | | | | | CORE | | + + + + + + | HEMATOCRIT | 38.0 (L) | 41.0 - 53.0 % | [facility] | | | | | | LABORATORY | | | | | | SERVICES, | | | | | | CORE | | + + + + + + | MCV | 87.2 | 80.0 - 100.0 fL | [facility] | | | | | | LABORATORY | | | | | | SERVICES, | | | | | | CORE | | + + + + + + | MCHC | 36.6 (H) | 32.0 - 36.0 | [facility] | | | | | g/dL | LABORATORY | | | | | | SERVICES, | | | | | | CORE | | + + + + + + | RDW SD | 42.5 | 35.1 - 46.3 fL | [facility] | | | | | | LABORATORY | | | | | | SERVICES, | | | | | | CORE | | + + + + + + | PLATELET | 72 (L)Comment: | 150 - 400 K/cu | [facility] | | | COUNT | Macroplatelets present. | mm | LABORATORY | | | | | | SERVICES, | | | | | | CORE | | + + + + + + | MPV | 11.5 | 9.7 - 12.3 fL | [facility] | | | | | | LABORATORY | | | | | | SERVICES, | | | | | | CORE | | + + + + + + | NRBC% | 0.0 | 0.0 - 0.3 % | [facility] | | | | | | LABORATORY | | | | | | SERVICES, | | | | | | CORE | | + + + + + + | NRBC# | 0.00 | 0.00 - 0.02 | [facility] | | | | | K/cu mm | LABORATORY | | | | | | SERVICES, | | | | | | CORE | | + + + + + + + + | Specimen | + + | Blood - Blood | | (substance) | + + + + + + + | Performing | Address | City/State/Zipcode | Phone Number | | Organization | | | | + + + + + | [facility] | [address] | [place] [address] | | | SERVICES, CORE | [address] | | | + + + + + COMPLETE METABOLIC SET (NA,K,CL,CO2,BUN,CREAT,GLUC,CA,AST,ALT,BILI TOTAL,ALK PHOS,ALB,PROT TOTAL) (02/16/2018 8:12 AM PST) + +---------+ + + + | Component | Value | Ref Range | Performed | Pathologist | | | | | At | Signature | + +---------+ + + + | GLUCOSE, | 254 (H) | 70 - 99 mg/dL | [facility] | | | PLASMA | | | LABORATORY | | | (LAB) | | | SERVICES, | | | | | | CORE | | + +---------+ + + + | BUN, PLASMA | 13 | 6 - 20 mg/dL | [facility] | | | (LAB) | | | LABORATORY | | | | | | SERVICES, | | | | | | CORE | | + +---------+ + + + | CREATININE | 0.82 | 0.70 - 1.30 | [facility] | | | PLASMA | | mg/dL | LABORATORY | | | (LAB) | | | SERVICES, | | | | | | CORE | | + +---------+ + + + | EGFR | >60 | >60 mL/min | [facility] | | | - | | | LABORATORY | | | OMANI | | | SERVICES, | | | | | | CORE | | + +---------+ + + + | EGFR NON | >60 | >60 mL/min | [facility] | | | -BARI | | | LABORATORY | | | RICAN | | | SERVICES, | | | | | | CORE | | + +---------+ + + + | SODIUM, | 138 | 136 - 145 | [facility] | | | PLASMA | | mmol/L | LABORATORY | | | (LAB) | | | SERVICES, | | | | | | CORE | | + +---------+ + + + | POTASSIUM, | 5.0 | 3.4 - 5.0 | [facility] | | | PLASMA | | mmol/L | LABORATORY | | | (LAB) | | | SERVICES, | | | | | | CORE | | + +---------+ + + + | CHLORIDE, | 113 (H) | 97 - 108 mmol/L | [facility] | | | PLASMA | | | LABORATORY | | | (LAB) | | | SERVICES, | | | | | | CORE | | + +---------+ + + + | TOTAL CO2, | 19 (L) | 21 - 32 mmol/L | [facility] | | | PLASMA | | | LABORATORY | | | (LAB) | | | SERVICES, | | | | | | CORE | | + +---------+ + + + | CALCIUM, | 8.1 (L) | 8.6 - 10.2 | [facility] | | | PLASMA | | mg/dL | LABORATORY | | | (LAB) | | | SERVICES, | | | | | | CORE | | + +---------+ + + + | CALCIUM(ALB | 9.1 | 8.6 - 10.2 | [facility] | | | CORRECTED) | | mg/dL | LABORATORY | | | | | | SERVICES, | | | | | | CORE | | + +---------+ + + + | BILIRUBIN | 1.6 (H) | 0.3 - 1.2 mg/dL | [facility] | | | TOTAL | | | LABORATORY | | | | | | SERVICES, | | | | | | CORE | | + +---------+ + + + | TOTAL | 6.8 | 6.4 - 8.2 g/dL [...] + + + | ALK PHOS | 114 | 56 - 119 U/L | [facility] | | | | | | LABORATORY | | | | | | SERVICES, | | | | | | CORE | | + +---------+ + + + | AST(SGOT) | 99 (H) | <=41 U/L | [facility] | | | | | | LABORATORY | | | | | | SERVICES, | | | | | | CORE | | + +---------+ + + + | ALT (SGPT) | 29 | <=60 U/L | [facility] | | | | | | LABORATORY | | | | | | SERVICES, | | | | | | CORE | | + +---------+ + + + | ANION GAP | 6 | 4 - 11 mmol/L | [facility] | | | | | | LABORATORY | | | | | | SERVICES, | | | | | | CORE | | + +---------+ + + + | ANION | 9 | 4 - 11 mmol/L | [facility] | | | GAP(ALB | | | LABORATORY | | | CORRECTED) | | | SERVICES, | | | | | | CORE | | + +---------+ + + + | POTASSIUM | Mk Hemo | | [facility] | | | CMNT | | | LABORATORY | | | | | | SERVICES, | | | | | | CORE | | + +---------+ + + + | BILI T CMNT | Mk Hemo | | [facility] | | | | | | LABORATORY | | | | | | SERVICES, | | | | | | CORE | | + +---------+ + + + | AST CMNT | Mk Hemo | | [facility] | | | [...] | Information: <60 mL/min/1.73 sq m Chronic Kidney | | | Disease <15 mL/min/1.73 sq m Kidney Failure | | | Estimated GFR greater than 60 mL/min/1.73 sq m is of limited clinical | | | value. The MDRD equation is not valid in the following situations: | | | - Patients under 18 years of age - Severe malnutrition or obesity | | | - Vegetarian diet - Rapidly changing kidney function - Amputees, | | | paraplegics, or other muscle-wasting diseses | | + + + + + + + + | Performing | Address | City/State/Zipcode | Phone Number | | Organization | | | | + + + + + | [facility] | [address] | [place] [address] | | | SERVICES, CORE | [address] | | | + + + + + NICOTINE + METABOLITE SCREEN, URINE (02/16/2018 8:12 AM PST) + + + + + + | Component | Value | Ref Range | Performed | Pathologist | | | | | At | Signature | + + + + + + | NICOTINE, | <2Comment: INTERPRETIVE | ng/mL | [facility] | | | URINE | INFORMATION: Nicotine | | REG UNIV | | | | and Metabolites, | | PTH - INT[facility] | | | | | | | | | | Urine, | | | | | | Quantitative | | | | | | Methodology: | | | | | | Quantitative Liquid | | | | | | Chromatography-Tandem | | | | | | Mass Spectrometry | | | | | | Positive cutoff:Nicotine | | | | | | 2 ng/mLCotinine 5 | | | | | | ng/kX2-JG-Ikjmnvam 50 | | | | | | ng/mLNornicotine | | | | | | 2 ng/mLAnabasine | | | | | | 3 ng/mL For | | | | | | medical purposes only; | | | | | | not valid for forensic | | | | | | use. This test is | | | | | | designed to evaluate | | | | | | recent use of | | | | | | nicotine-containing | | | | | | products. Passive and | | | | | | active exposure cannot | | | | | | be discriminated | | | | | | definitively, although a | | | | | | cutoff of 100 ng/mL | | | | | | cotinine is frequently | | | | | | used for surgery | | | | | | qualification purposes. | | | | | | For smoking cessation | | | | | | programs or compliance | | | | | | testing, the absence of | | | | | | expected drug(s) and/or | | | | | | drug metabolite(s) may | | | | | | indicate non-compliance, | | | | | | inappropriate timing of | | | | | | specimen collection | | | | | | relative to drug | | | | | | administration, poor | | | | | | drug absorption, | | | | | | diluted/adulterated | | | | | | urine, or limitations of | | | | | | testing. The | | | | | | concentration value must | | | | | | be greater than or | | | | | | equal to the cutoff to | | | | | | be reported as positive. | | | | | | Anabasine is included | | | | | | as a biomarker of | | | | | | tobacco use, versus | | | | | | nicotine replacement. | | | | | | Interpretive questions | | | | | | should be directed to | | | | | | the laboratory. Test | | | | | | developed and | | | | | | characteristics | | | | | | determined by [facility] | | | | | | Laboratories. See | | | | | | Compliance Statement B: | | | | | | [employer]/CSPerformed | | | | | | by [employer],[address] | | | | | | [facility],[place] | | | | | | [address] | | | | | | [phone].[facility]. | | | | | | [facility] hospitalJúnior MD, | | | | | | Lab. Director | | | | + + + + + + | COTININE, | 22Comment: Cotinine is | ng/mL | [facility] | | | URINE | the major metabolite of | | REG UNIV | | | | nicotine and is | | PTH - INTFC | | | | abiomarker of passive | | | | | | exposure when present at | | | | | | lowconcentrations. | | | | | | This result may | | | | | | reflect passive | | | | | | exposureto a | | | | | | nicotine-containing | | | | | | product. | | | | + + + + + + | NORNICOTINE | <2 | ng/mL | [facility] | | | , URINE | | | REG UNIV | | | | | | PTH - INTFC | | + + + + + + | ANABASINE, | <3 | ng/mL | [facility] | | | URINE | | | REG UNIV | | | | | | PTH - INTFC | | + + + + + + | 3-OH-COTINI | 54Comment: Nicotine is | ng/mL | [facility] | | | NE, URINE | metabolized to cotinine, | | REG UNIV | | | | and 1-VQ-odshmlsg is | | PTH - INTFC | | | | ametabolite of cotinine. | | | | | | After cessation from | | | | | | long-term orheavy use of | | | | | | nicotine products, | | | | | | 1-AR-ulwmbhgf may | | | | | | persistfor weeks. | | | | + + + + + + + + | Specimen | + + | Urine - Urine | | (substance) | + + + + + + + | Performing | Address | City/State/Zipcode | Phone Number | | Organization | | | | + + + + + | [facility] | [address] | [place], [place] | | | UNIV PTH - INTFC | | [id number] | | + + + + + INR (02/16/2018 8:12 AM PST) + +-------+ + + + | Component | Value | Ref Range | Performed | Pathologist | | | | | At | Signature | + +-------+ + + + | INR | 1.08 | 0.90 - 1.20 INR | [facility] [...] + + | [facility] | [address] | [place] [address] | | | SERVICES, CORE | [address] | | | + + + + + ANTIBODY SCREEN (02/16/2018 8:09 AM PST) + + + + + + | Component | Value | Ref Range | Performed | Pathologist | | | | | At | Signature | + + + + + + | Antibody | Negative | | [facility] | | | Screen | | | LABORATORY | | | | | | SERVICES, | | | | | | TRANSFUSION | | | | | | MEDICINE | | + + + + + + + + | Specimen | + + | Blood - Blood | | (substance) | + + + + + + + | Performing | Address | City/State/Zipcode | Phone Number | | Organization | | | | + + + + + | [facility] | [address] | [place] [address] | | | SERVICES, | [address] | | | | TRANSFUSION MEDICINE | | | | + + + + + ABO & RH TYPE (02/16/2018 8:09 AM PST) + + + + + + | Component | Value | Ref Range | Performed | Pathologist | | | | | At | Signature | + + + + + + | ABO Group | A | | [facility] | | | | | | LABORATORY | | | | | | SERVICES, | | | | | | TRANSFUSION | | | | | | MEDICINE | | + + + + + + | Rh Type | Positive | | [facility] | | | | | | LABORATORY | | | | | | SERVICES, | | | | | | TRANSFUSION | | | | | | MEDICINE | | + + + + + + + + | Specimen | + + | Blood - Blood | | (substance) | + + + + + + + | Performing | Address | City/State/Zipcode | Phone Number | | Organization | | | | + + + + + | [facility] | [address] | [place] [address] | | | SERVICES, | [address] | | | | TRANSFUSION MEDICINE | | | | + + + + + documented in this encounter Visit Diagnoses + + | Diagnosis | + + | Preop examination - Primary Preoperative examination, unspecified | + + | Cholangitis | + + | Gallbladder perforation Perforation of gallbladder | + + documented in this encounter
--- OUTSIDE RECORDS SUMMARY | ~2019-01-07 | XMS | Encounter Summary ---
Demographics + + + | Address | [address] | | | [place] [address] | + + + | Home Phone | | + + + | Preferred Language | Unknown | + + + | Marital Status | Single | + + + | Rastafari Affiliation | NRP | + + + | Race | or | + + + | Ethnic Group | Not or | + + + Author + + + | Author | [facility] [employer] [facility] | + + + | Organization | [facility] [facility] | + + + | Address | Unknown | + + + | Phone | Unavailable | + + + Support + + +---------+ + | Name | Relationship | Address | Phone | + + +---------+ + | Mary Medellin | ECON | Unknown | | + + +---------+ + Care Team Providers + +------+ + | Care Structural Engineering Drafting Officer Name | Role | Phone | + [...] Test Results | | 2017 | | [place] [id number] | PA-C [address] | | | | | [address] | [place] | | | | | Mailcode: OC8D | [place], [place] | | | | | [facility] | [address] | | | | | and Healing, | [phone] | | | | | [address] | | | | | | [place], [place] | | | | | | [address] | | | | | | [phone] | | | +--------+ + + + [...]
--- OUTSIDE RECORDS SUMMARY | ~2019-01-07 | XMS | Encounter Summary ---
Demographics + + + | Address | [address] | | | [place] [address] | + + + | Home Phone | | + + + | Preferred Language | Unknown | + + + | Marital Status | Single | + + + | Adventist Affiliation | Unknown | + + + | Race | Unknown | + + + | Ethnic Group | Unknown | + + + Author + + + | Author | [facility] | | | and [place] | + + + | Organization | [facility] | | | [...] Team Providers + +------+ + | Care Piece Presser Name | Role | Phone | + +------+ + | Shakir Monzon DO | PCP | | + +------+ + Reason for Visit + + + | Reason | Comments | + + + | Referral | | + + + Encounter Details +--------+ + + + + | Date | Type | Department | Care Team | Description | +--------+ + + + + | 03/23/ | Telephone | [facility] [place] | [place], | Referral | | 2017 | | GASTROENTEROLOGY | [place] [address] | | | | | [address] [place] | [place] | | | | | [address] [place], [place] | [place], [place] | | | | | [address] | [address] | | | | | [phone] | | | +--------+ + + + [...] [place] | | | | | | [address] | | | | | | | | +--------+---------+ + + + documented as of this encounter Visit Diagnoses Not on filedocumented in this encounter"
--- OUTSIDE RECORDS SUMMARY | ~2019-01-07 | XMS | Encounter Summary ---
Demographics + + + | Address | [address] | | | [place] [address] | + + + | Home Phone | | + + + | Preferred Language | Unknown | + + + | Marital Status | Single | + + + | Church Affiliation | Unknown | + + + | Race | Unknown | + + + | Ethnic Group | Unknown | + + + Author + + + | Author | [facility] | | | and [place] | + + + | Organization | [facility] | | | [...] Team Providers + +------+ + | Care Measurement Analyst Name | Role | Phone | + +------+ + | Shakir Monzon DO | PCP | | + +------+ + Reason for Visit +--------+ + | Reason | Comments | +--------+ + | Other | Ultrasound order | +--------+ + Encounter Details +--------+ + + + + | Date | Type | Department | Care Team | Description | +--------+ + + + + | 01/05/ | Telephone | [facility] | Donell Hunt MD | Other (Ultrasound | | 2018 | | GASTROENTEROLOGY | [address] | order) | | | | [address] [facility] | [place], [place] | | | | | [address] [place], [place] | [address] | | | | | [address] | [phone] | | | | | [phone] | | | +--------+ + + + [...] [place] | | | | | | [id number] | | | | | | | | +--------+---------+ + + + documented as of this encounter Visit Diagnoses Not on filedocumented in this encounter"
--- OUTSIDE RECORDS SUMMARY | ~2019-01-07 | XMS | Encounter Summary ---
Demographics + + + | Address | [address] | | | [place] [address] | + + + | Home Phone | | + + + | Preferred Language | Unknown | + + + | Marital Status | Single | + + + | Sabianism Affiliation | Unknown | + + + [...] Team Providers + +------+ + | Care Fast Foods Worker Name | Role | Phone | + +------+ + | Mookie Castro PA-C | PCP | | + +------+ + Reason for Visit + + + | Reason | Comments | + + + | Procedure | | + + + Encounter Details +--------+ + + + + | Date | Type | Department | Care Team | Description | +--------+ + + + + | 09/29/ | Telephone | [facility] | Donell Hunt MD | Procedure | | 2016 | | GASTROENTEROLOGY | [address] [facility] | | | | | [address] [facility] | [place], [place] | | | | | [address] [place] | [address] | | | | | [address] | [phone] | | | | | [phone] | | | +--------+ + + + [...] [place] | | | | | | [address] | | | | | | | | +--------+---------+ + + + documented as of this encounter Visit Diagnoses Not on filedocumented in this encounter"
--- OUTSIDE RECORDS SUMMARY | ~2019-01-07 | XMS | Encounter Summary ---
Demographics + + + | Address | [address] | | | [place] [address] | + + + | Home Phone [...] Author + + + | Author | [facility] | + + + | Organization | [facility] | + + + | Address | Unknown | + + + | Phone | Unavailable | + + + Support + + +---------+ + | Name | Relationship | Address | Phone | + + +---------+ + | Mary Medellin | ECON | Unknown | | + + +---------+ + Care Team Providers + +------+ + | Care Aquaculture Farm Manager Name | Role | Phone | [...] + + + + | 10/21/ | Telephone | [facility] | [place], | Question | | 2018 | | [facility] [address] | [address] | | | | | [address] | [address] | | | | | Mailcode: Center | [place], [place] | | | | | [facility] and | [address] | | | | | [place] [address] | [phone] | | | | | [place], [place] | | | | | | [address] | | | | | | [phone] | | | +--------+ + + + [...]
--- OUTSIDE RECORDS SUMMARY | ~2019-01-07 | XMS | Encounter Summary ---
Demographics + + + | Address | [address] | | | [place] [address] | + + + | Home Phone [...] + + | Author | [facility] | + + + | Organization | [facility] | + + + | Address | Unknown | + + + | Phone | Unavailable | + + + Support + + +---------+ + | Name | Relationship | Address | Phone | + + +---------+ + | Mary Medellin | ECON | Unknown | | + + +---------+ + Care Team Providers + +------+ + | Care Senior Credit Analyst Name | Role | Phone | + +------+ + | Shakir Monzon MD | PCP | | + +------+ + Reason for Visit + + + | Reason | Comments | + + + | New patient | | | consultation | | + + + Consultation (Routine) +--------+--------+ + + + + | Status | Reason | Specialty | Diagnoses / | Referred By | Referred To | | | | | Procedures | Contact | Contact | +--------+--------+ + + + + | Closed | | Hepatology | Diagnoses | [place], | Gas | | | | | Chronic | Adrian Odell DO | Hepatology | | | | | viral | [address] | [address] | | | | | hepatitis C | [address] | [address] | | | | | | [place], [place] | Mailcode: | | | | | | [address] | [facility] | | | | | | Phone: | for Health | | | | | | [phone] | and Healing, | | | | | | Fax: | Building [address] | | | | | | [phone] | [place], [place] | | | | | | | [address] | | | | | | | Phone: | | | | | | | [phone] | | | | | | | Fax: | | | | | | | [phone] | +--------+--------+ + + + + Encounter Details +--------+---------+ + + + | Date | Type | Department | Care Team | Description | +--------+---------+ + + + | 10/14/ | Office | Digestive Health | Bessy Solano, | Hepatic cirrhosis, | | 2017 | Visit | Center at [facility] [address] | unspecified hepatic | | | | [address] | [address] | cirrhosis type (HCC) | | | | Mailcode: [facility] | [place], [place] | (Primary Dx); | | | | [facility] | [address] | Chronic hepatitis C | | | | and Healing, | [phone] | without hepatic coma | | | | Building [address] | | (HCC) | | | | [place], [place] | | | | | | [address] | | | | | | [phone] | | | +--------+---------+ + + + [...] + + + | Blood Pressure | 134/74 | 10/14/2016 10:25 AM | | | | | PDT | | + + + + + | Pulse | 77 | 10/14/2016 10:25 AM | | | | | PDT | | + + + + + | Temperature | 36.7 C (98 F) | 10/14/2016 10:25 AM | | | | | PDT | | + + + + + | Respiratory Rate | 16 | 10/14/2016 10:25 AM | | | | | PDT | | + + + + + | Oxygen Saturation | - | - | | + + + + + | Inhaled Oxygen | - | - | | | Concentration | | | | + + + + + | Weight | 99.6 kg (219 lb 8 | 10/14/2016 10:25 AM | | | | oz) | PDT | | + + + + + | Height | - | - | | + + + + + | Body Mass Index | - | - | | + + + + + documented in this encounter Progress Notes Paul Rice MD - 10/14/2016 10:20 AM PDTHEPATOLOGY ATTENDING Note reviewed. Agree with HCV Rx and ETOH abstinence. Paul Rice MD, MS wastewater analyst Director of Clinical Hepatology [facility] Division of Gastroenterology/Hepatology Bessy Villar PA-C - 0 10/14/2016 10:20 AM PDT Hepatology Clinic Note 10/14/2016 PCP: Shakir Monzon MD Referring provider: Roland Rico HISTORY OF PRESENT ILLNESS Bret Espinal Jr. is a 61 y.o. male with history of HCV/Etoh Cirrhosis , who presents for e valuation He is accompanied by his significant other Mr. Espinal has carried a diagnosis of hepatitis C for approximately 12 years. No prior gregorio er biopsy nor remote treatment for HCV. He was recently diagnosed with liver cirrhosis the e of 2015 after presenting to the hospital with HE. He has consumed alcohol for "45 years" with occasions of binge drinking. No history of alco hol withdrawal or hospitalizations related to alcohol use and has been sober for 8 months in which endorses this has been hard but understands implications/risks of ongoing alcohol use . Remote history substance and alcohol rehab. He has had hepatoma and variceal screening locally. He was referred to transplant program but referral denied currently as MELDS too low. He wo uld like to discuss treatment of his hepatitis C and is referred to discuss its implications with liver cirrhosis He thinks he previously has been vaccinated for hepatitis A and B. He denies fluid accumulation in feet/ankles, fluid accumulation in abdomen, blood in bowel movements or black tarry bm's His biggest complaint is that of fatigue He and note periodic episodes of confusion if he does not take lactulose but also find s if takes up to 90 ml a day, this causes significant diarrhea Diagnoses: 1. 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 Likely acquired by remote ANUM 1.2. Decompensations: HE on lactulose and Rifaximin 1.3. HCC surveillance: Ultrasound abdomen 09/2016 1.4. Variceal screening: EGD 07/2016 non-bleeding EV with band eradication 1.5. Unclear immunity status to HBV, HAV, HIV, reported history of vaccination 1.6 Genotype 1a, treatment naive 2. Type 2 DM- insulin dependent 3. Colonoscopy locally ~2014 per patient 4. Psychosocial: Lives in 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 Review of Systems: As above MEDICATIONS Current Medication List Name Sig CHOLECALCIFEROL (VITAMIN D3) 5,000 UNIT CAPSULE Take by mouth. LOSARTAN 25 MG TABLET Take by mouth. METFORMIN ER 1,000 MG TABLET,EXTENDED RELEASE 24HR Take by mouth. OMEPRAZOLE 40 MG CAPSULE,DELAYED RELEASE Take by mouth. RIFAXIMIN 550 MG TABLET Take by mouth. ALLERGIES: No Known Allergies PHYSICAL EXAM VS: Filed Vitals: 10/14/2016 10:25 AM Weight: 99.6 kg (219 lb 8 oz) BP: 134/74 Pulse: 77 Temp: 36.7 C (98 F) TempSrc: Oral Resp: 16 PainSc: 0 - Zero GEN: Pleasant male in NAD, comfortable appearing. HEENT: anicteric, NC/AT, PERRL, oropharynx clear COR: RRR, -m. PULM: Clear bilaterally. ABD: Obese, Soft, nontender, nondistended. NABS. +splenomegaly EXT: no clubbing or peripheral edema. SKIN: No jaundice, spider telangiectasias. Vitiligo, +palmar erythema NEURO: No asterixis. No slowing of speech LABS IMAGING / ENDOSCOPY EGD 07/27/16 Impression: - Grade II esophageal varices. Completely eradicated. Banded. - Erythematous mucosa in the stomach. - Normal examined duodenum. - No specimens collected. Recommendation: - Patient has a contact number available for emergencies. The signs and symptoms of potential delayed complications were discussed with the patient. Return to normal activities tomorrow. Written discharge instructions were provided to the patient. - Resume previous diet. - Continue present medications. - No aspirin, ibuprofen, naproxen, or other non-steroidal anti-inflammatory drugs. - Repeat upper endoscopy in 3 months for endoscopic band ligation. - Return to GI office PRN. - The findings and recommendations were discussed with the patient EGD 04/2016 Impression: - Grade II esophageal varices. Completely eradicated. Banded. - Z-line irregular, 36 cm from the incisors. - Monilial esophagitis. - Erythematous mucosa in the stomach. Biopsied. - Type 1 gastroesophageal varices (GOV1, esophageal varices which extend along the lesser curvature), without bleeding. - Normal examined duodenum. Recommendation: - Patient has a contact number available for emergencies. The signs and symptoms of potential delayed complications were discussed with the patient. Return to normal activities tomorrow. Written discharge instructions were provided to the patient. - Resume previous diet. - Continue present medications. - Await pathology results. - Repeat upper endoscopy in 3 months for endoscopic band ligation. - Return to GI clinic PRN. - Diflucan (fluconazole) 100 mg PO daily for 10 days. - The findings and recommendations were discussed with the patient Ultrasound 09/23/2016 LIVER: Size: Normal. Echogenicity: Mild coarse echogenic appearance of the liver parenchyma Surface nodularity: Subtle nodular contour throughout. Mass (size and location): None. Portal Vein: Hepatopedal flow. BILE DUCTS: Intrahepatic ducts: Normal. Common bile duct diameter: 4 mm GALLBLADDER: Gallstones: Multiple mobile echogenic stones. A nonmobile polypoid echogenic structure noted at the collateral fundus measuring up to 4 mm. Gallbladder sludge: None. Gallbladder wall thickening: None. Pericholecystic fluid: None. Sonographic Caldera sign: Absent. PANCREAS: Visualized portions are unremarkable. RIGHT KIDNEY: Hydronephrosis: None. Calcification: None. Mass: None. Size: 13.9 cm in long axis ASCITES: None. IMPRESSION - Cholelithiasis. Gallbladder polyp measuring 4 mm, most consistent with a cholesterol polyp, unchanged from prior sonogram. Hepatic cirrhosis. MRI abdomen 04/06/2016 IMPRESSION - Cirrhosis and portal hypertension. There are 2 small cysts in the liver. There is one hypervascular focus that is likely vascular anomaly or a flash enhancing hemangioma. There are no suspicious liver lesions. BIRADS Category 2: Probably benign. Probable cholesterol polyp in the gallbladder.This does not require follow-up. Note: All available outside records have been reviewed in the course of this visit, and chaz ecially pertinent ones noted above. ASSESSMENT Mr. Bret Espinal Jr. is a 61 y.o. male who presents for evaluation and management of Etoh/ HCV Cirrhosis. This has been complicated by development of non-bleeding varices and hepatic encephalopathy controlled on lactulose and rifaximin. No evidence of ascites/SBP or HCC to d ate. Recent MELDS 10-11, he is borderline migeul A/B status. We discussed the natural history an d clinical progression of HCV/cirrhosis and potential complications related to cirrhosis inc luding HCC, portal hypertension complications and HE. We briefly discussed the MELD classifi cation system and risk/benefit cutoffs for transplantation. Mr. Espinal understood and state s that he may not wish transplantation anyway with his beliefs. Presently, we discussed he i s too healthy to consider this, he has remained sober from alcohol and we discussed may have further improvement in liver function the further he is away from alcohol. Given this, it seems reasonable to address his HCV presently to see if we can further prese rve liver function. With borderline miguel status will avoid PI-containing agent. Given GT1a status options would be Harvoni (Sof/Ldv) and Epclusa (Sof/Jordan) with velpatasvir slightly h igher barrier to resistance than ledipasvir so consider option Epclusa for 12 weeks. Risk/be nefit ratio of use RBV addition tips towards Epclusa monotherapy. We can submit through insurance company and arrange for local monitoring while he is on darlene atment. He was encouraged ongoing semi-annual hepatoma and variceal screening through his local GI provider. Noted elevated AFPs without evidence HCC on cross-sectional imaging and likely in setting of active HCV. RECOMMENDATIONS: 1. CMP, CBC, INR, AFP, HCV PCR, Hep A and B serologies, HIV, direct bili 2. Seek insurance coverage for Epclusa 12 weeks with protocol labs and teaching 3. Hepatoma screening/AFP q [address] Hunt 4. Ongoing variceal surveillance with Dr. Hunt 5. Continue Rifaximin and titrate lactulose dosing for 2-3 BM's day 6. Avoid centrally-acting medications, avoidance benzo's/narcotics 7. Avoid NSAIDs, no more than 2,000mg tylenol in 24 hour period 8. Ongoing alcohol abstinence and enrollment in relapse prevention support 9. Vaccination HAV, HBV if not immune, pneumovax if not yet performed 10. Return to clinic in 6 months or sooner PRN. Bessy Solano PA-C [facility] [address]TH [address]LO[address] Mailcode: [address] [place] [address] Counseling Time: I spent more than 45 minutes with the patient. Greater than 50% of the bahman e was spent in education and counseling the patient regarding the natural history and progno sis of their disease. documented in this encounter Plan of Treatment +--------+ + + + + | Date | Type | Specialty | Care Team | Description | +--------+ + + + + | 02/22/ | Procedure | Surgery | | | | 2020 | Pass | | | | +--------+ + + + + documented as of this encounter Results HEPATITIS C QUANTITATIVE, PLASMA (10/14/2016 11:50 AM PDT) + + + + + + | Component | Value | Ref Range | Performed | Pathologist | | | | | At | Signature | + + + + + + | HEP C PCR | 4,500,000 (H) | Undetected | [facility] | | | QUANT, | | IU/mL | DIAGNOSTIC | | | VALUE | | | | | | | | | LABORATORIE | | | | | | S | | + + + + + + + + | Specimen | + + | Blood - Blood | | (substance) | + + + + + | Narrative | Performed At | + + + | Reportable Range: 12-100,000,000 IU/mL Low levels or serial | [facility] | | declines in the HCV viral load may indicate the relative efficacy of | DIAGNOSTIC | | anti-viral therapy. Viral load changes of less than approximately 3 | LABORATORIES | | fold may not be biologically significant and should be interpreted | | | cautiously. Undetected results are suggestive of either the absence | | | of HCV viremia or the presence of low-level HCV viremia below the | | | assay's detection limit. | | + + + + + + + + | Performing | Address | City/State/Zipcode | Phone Number | | Organization | | | | + + + + + | [facility] | [address] | [place] [address] | | | DIAGNOSTIC | [address] | | | | LABORATORIES | | | | + + + + + BILIRUBIN DIRECT (10/14/2016 11:50 AM PDT) + +-------+ + + + | Component | Value | Ref Range | Performed | Pathologist | | | | | At | Signature | + +-------+ + + + | BILIRUBIN | 0.2 | 0.0 - 0.3 mg/dL | [facility] | | | DIRECT | | | LABORATORY | | | [...] [facility] | [address] | [place] [address] | | | SERVICES, CORE | [address] | | | + + + + + HIV-1,2 AB/HIV-1 P24 AG SCRN, SERUM (10/14/2016 11:50 AM PDT) + + + + + + | Component | Value | Ref Range | Performed | Pathologist | | | | | At | Signature | + + + + + + | HIV-1,2 | Negative | Negative | [facility] | | | AB/HIV-1 | | | LABORATORY | | | P24 AG | | | SERVICES, | | | SCREEN | | | SPECIAL IMM | | | | | | + COAG | | + + + + + + + + | Specimen | + + | Blood - Blood | | (substance) | + + + + + | Narrative | Performed At | + + + | HIV-1 p24 Ag and HIV-1,2 Ab not detected. Test modified from | [facility] | | original dough sheeter's approved specifications. The performance | LABORATORY | | of the CERTIFIED ORTHOTIST HIV Combo test, with or without confirmation, was not | SERVICES, | | tested in pediatric patients less than 2 years of age. [facility] | SPECIAL IMM + | | guidelines recommend virologic assays (i.e. HIV 1 VIRAL LOAD) that | [facility] | | directly detect HIV for diagnosis of HIV infection in infants younger | | | than 2 years. | | + + + + + + + + | Performing | Address | City/State/Zipcode | Phone Number | | Organization | | | | + + + + + | [facility] | [address] | [place] [address] | | | SERVICES, SPECIAL | [address] | | | | IMM + [place] | | | | + + + + + HEPATITIS A AB SCREEN, SERUM (10/14/2016 11:50 AM PDT) + + + + + + | Component | Value | Ref Range | Performed | Pathologist | | | | | At | Signature | + + + + + + | HEPATITIS A | Positive (A) | Negative | FLOOD - | | | AB TOTAL | | | AIR[facility] | | | | | | [facility] | | + + + + + + + + | Specimen | + + | Blood - Blood | | (substance) | + + + + + + + | Performing | Address | City/State/Zipcode | Phone Number | | Organization | | | | + + + + + | FLOOD - AIRPORT - | [address] | [place] [address] | | | [place] | | | | + + + + + HEPATITIS B SURFACE AG W/REFLEX CONFIRMATION IF INDETERMINATE RESULTS (10/14/2016 11:50 AM PDT) + + + + + + | Component | Value | Ref Range | Performed | Pathologist | | | | | At | Signature | + + + + + + | HEPATITIS B | | | [facility] | | | SURFACE | | | LABORATORY | | | AG, SERUM | | | SERVICES, | | | | | | CORE | | + + + + + + | HEP B | Not Detected | Not Detected | [facility] | | | SURFACE AG | | | LABORATORY | | | [...] [facility] | [address] | [place] [address] | | | SERVICES, CORE | [address] | | | + + + + + HEPATITIS B CORE AB, IGM, SERUM (10/14/2016 11:50 AM PDT) + + + + + + | Component | Value | Ref Range | Performed | Pathologist | | | | | At | Signature | + + + + + + | HEP B COR | NegativeComment: | Negative | [facility] | | | AB IGM | INTERPRETIVE | | REG UNIV | | | | INFORMATION: Hepatitis B | | PTH - [facility] | | | | Core Ab, IgM This assay | | | | | | should not be used for | | | | | | blood donor screening, | | | | | | associated re-entry | | | | | | protocols, or for | | | | | | screening Human Cells, | | | | | | Tissues and Cellular and | | | | | | Tissue-Based Products | | | | | | (HCT/P).Performed by | | | | | | [employer],[address] | | | | | | [address], [facility],[place] | | | | | | [address] | | | | | | [phone][email or web address]. | | | | | | Júnior treadwell MD, | | | | | | [...] [facility] | [address] | [place], [place] | | | UNIV PTH - INTFC | | [id number] | | + + + + + ALPHA-FETOPROTEIN TUMOR MARKER, SERUM (10/14/2016 11:50 AM PDT) + + + + + + | Component | Value | Ref Range | Performed | Pathologist | | | | | At | Signature | + + + + + + | AFP TUMOR | 15.5 (H) | <=9.0 ng/mL | [facility] | | [...] [facility] | [address] | [place] [address] | | | SERVICES, CORE | [address] | | | + + + + + INR (10/14/2016 11:50 AM PDT) + +-------+ + + + | Component | Value | Ref Range | Performed | Pathologist | | | | | At | Signature | + +-------+ + + + | INR | 1.07 | 0.90 - 1.20 INR | [facility] [...] mech. valves (2.5 - 3.5) INR | [facility] | + + + + + + + + | Performing | Address | City/State/Zipcode | Phone Number | | Organization | | | | + + + + + | [facility] | [address] | [place] [address] | | | SERVICES, CORE | [address] | | | + + + + + COMPLETE METABOLIC SET (NA,K,CL,CO2,BUN,CREAT,GLUC,CA,AST,ALT,BILI TOTAL,ALK PHOS,ALB,PROT TOTAL) (10/14/2016 11:50 AM PDT) + +---------+ + + + | Component | Value | Ref Range | Performed | Pathologist | | | | | At | Signature | + +---------+ + + + | GLUCOSE, | 314 (H) | 70 - 99 mg/dL | [facility] | | | PLASMA | | | LABORATORY | | | (LAB) | | | SERVICES, | | | | | | CORE | | + +---------+ + + + | BUN, PLASMA | 15 | 6 - 20 mg/dL | [facility] [...] | | | LABORATORY | | | [facility] | | | SERVICES, | | | [...] +---------+ + + + | POTASSIUM, | 4.4 | 3.4 - 5.0 | [facility] | | | PLASMA | | mmol/L | LABORATORY | | | (LAB) | | | SERVICES, | | | | | | CORE | | + +---------+ + + + | CHLORIDE, | 111 (H) | 97 - 108 mmol/L | [facility] | | | PLASMA | | | LABORATORY | | | (LAB) | | | SERVICES, | | | | | | CORE | | + +---------+ + + + | TOTAL CO2, | 21 | 21 - 32 mmol/L | [facility] | | | PLASMA | | | LABORATORY | | | (LAB) | | | SERVICES, | | | | | | CORE | | + +---------+ + + + | CALCIUM, | 8.5 (L) | 8.6 - 10.2 | [facility] | | | PLASMA | | mg/dL | LABORATORY | | | (LAB) | | | SERVICES, | | | | | | CORE | | + +---------+ + + + | CALCIUM(ALB | 9.5 | 8.6 - 10.2 | [facility] | | | CORRECTED) | | mg/dL | LABORATORY | | | | | | SERVICES, | | | | | | CORE | | + +---------+ + + + | BILIRUBIN | 1.1 | 0.3 - 1.2 mg/dL | [facility] [...] + + + | ALK PHOS | 88 | 56 - 119 U/L | [facility] | | | | | | LABORATORY | | | | | | SERVICES, | | | | | | CORE | | + +---------+ + + + | AST(SGOT) | 113 (H) | <=41 U/L | [facility] | | | | | | LABORATORY | | | | | | SERVICES, | | | | | | CORE | | + +---------+ + + + | ALT (SGPT) | 121 (H) | <=60 U/L | [facility] | | | | | | LABORATORY | | | | | | SERVICES, | | | | | | CORE | | + +---------+ + + + | ANION GAP | 8 | mmol/L | [facility] | | | | [...] Performed At | + + + | Adult glucose reference range change effective 7-17. GFR is | [facility] | | estimated using the MDRD equation recommended by the National Kidney | LABORATORY | | Disease Education Program. Estimated GFR Interpretive Information: | SERVICES, CORE | | <60 mL/min/1.73 sq m Chronic Kidney Disease | | | <15 mL/min/1.73 sq m Kidney Failure Estimated | | | GFR greater that 60 mL/min/1.73 sq m is of limited clinical value. | | | The MDRD equation is not valid in the following situations: - | | | Patients under 18 years of age - Severe malnutrition or obesity - | | | Vegetarian diet - Rapidly changing kidney function | | + + + + + + + + | Performing | Address | City/State/Zipcode | Phone Number | | Organization | | | | + + + + + | [facility] | [address] | [place] [address] | | | SERVICES, CORE | [address] | | | + + + + + documented in this encounter Visit Diagnoses + + | Diagnosis | + + | Hepatic cirrhosis, unspecified hepatic cirrhosis type (HCC) - Primary | + + | Chronic hepatitis C without hepatic coma (HCC) | + + documented in this encounter
--- OUTSIDE RECORDS SUMMARY | ~2019-01-07 | XMS | Encounter Summary ---
Demographics + + + | Address | [address] | | | [place] [address] | + + + | Home Phone | | + + + | Preferred Language | Unknown | + + + | Marital Status | Single | + + + | Confucianism Affiliation | Unknown | + + + | Race | Unknown | + + + | Ethnic Group | Unknown | + + + Author + + + | Author | [facility] | | | and [place] | + + + | Organization | [facility] | | | [...] Team Providers + +------+ + | Care Nursing Instructor Name | Role | Phone | + [...] | | | | | | | [place] | | | | | | | ESOPHAGOGAST | | | | | | | RODUODENOSCO | | | | | | | PY TRANSORAL | | | | | | | DIAGNOSTIC | | | | | | | [place] EGD | | | | | | | TRANSORAL | | | | | | | BIOPSY | | | | | | | SINGLE/MULTI | | | | | | | PLE [place] | | | | | | | ANESTH,UGI | | | | | | | ENDOSCOPY | | | | | | | EGD | | | +--------+--------+ + + + + Encounter Details +--------+ + + + + | Date | Type | Department | Care Team | Description | +--------+ + + + + | 05/05/ | Anesthesia | [facility] | Preston Wheat, | | | 2017 | Event | [facility] | MD [address] | | | | | [address] | [place], [place] | | | | | [place], [place] | [address] | | | | | [address] | | | | | | [phone] | | | +--------+ + + + + Anesthesia Record + + + + + | Procedure Name | Responsible | Anesthesia Start | Anesthesia Stop Time | | | Anesthesiologist | Time | | + + + + + | MALIA RuanoN/Marlene Ballard) | Preston Wheat MD | 05/05/1646 | 05/05/16 101 | + + + + + +----+---+ + + | Da | T | Event | Comment | | te | i | | | | | m | | | | | e | | | +----+---+ + + | 03 | 0 | | | | /2 | 9 | | | | 1/ | 1 | | | | 20 | 1 | | | | 17 | | | | +----+---+ + + | | 0 | An Checkout | Pre-use anesthesia machine/equipment checkout. | | | 9 | | | | | 3 | | | | | 8 | | | +----+---+ + + | | 0 | An Start | Reassessment prior to anesthesia induction/procedure. | | | 9 | | | | | 4 | | | | | 6 | | | +----+---+ + + | | 0 | AN | Per surgeon request | | | 9 | Antibiotic | | | | 4 | declined | | | | 6 | | | +----+---+ + + | | 0 | Pre-Procedu | | | | 9 | ral Timeout | | | | 5 | Completed | | | | 0 | | | +----+---+ + + | | 0 | An | | | | 9 | Induction | | | | 5 | | | | | 1 | | | +----+---+ + + | | 0 | Breathing | | | | 9 | Spontaneous | | | | 5 | ly | | | | 2 | | | +----+---+ + + | | 1 | an stop | | | | 0 | data | | | | 0 | | | | | 8 | | | +----+---+ + + | | 1 | An Stop | Patient handed off to recovery nurse. | | | 1 | | | | | 2 | | | +----+---+ + + +------+ | Meds | +------+ + +--------+ | Name | Total | + +--------+ | lidocaine 2% | 100 mg | + +--------+ | propofol | 340 mg | + +--------+ | lactated ringers (LR) infusion | 850 mL | + +--------+ + + | Name | + + | O2 Flow Rate (L/Min) | + + + + | No blood administrations on file. | + + +--------+ + + + | Type | Details | Placement | Removal | +--------+ + + + | Periph | 05/05/16; 830; Right; Hand; | 05/05/16830 by | 05/05/16 1105 by | | eral | [id number] catheter system; | Charo Cortez RN | Catherine Landers RN | | IV | 20 gauge, 1 1/4 in length; | | | | | distraction, intradermal | | | | | injection, tolerated well; no | | | | | longer indicated, catheter/device | | | | | intact, removed per | | | | | policy/procedure, site care per | | | | | policy/procedure; short term use; | | | | | 05/05/16; 1105 | | | +--------+ + + + [...] 04/06/ | Office | Cardiology | Lakisha aKhn DO | | | 2019 | Visit | | [address] | | | | | | [place] | | | | | | [address] | | | | | | | | +--------+---------+ + + + documented as of this encounter Visit Diagnoses Not on filedocumented in this encounter Administered Medications + +--------+ +--------+------+------+ | Medication Order | MAR | Action | Dose | Rate | Site | | | Action | Date | | | | + +--------+ +--------+------+------+ | lidocaine (PF) 2% injection | Given | 05/06/19 | 100 mg | | | | Intravenous, PRN, Starting Tue | | 17 9:51 | | | | | 05/05/16 at 0951, Anesthesia | | AM PDT | | | | | Intra-op | | | | | | + +--------+ +--------+------+------+ +---+---+ | | | +---+---+ + +-------+ +-------+---+---+ | propofol (DIPRIVAN) injection | Given | 05/06/19 | 30 mg | | | | Intravenous, PRN, Starting Tue | | 17 10:05 | | | | | 05/05/16 at 0951, Anesthesia | | AM PDT | | | | | Intra-op | | | | | | + +-------+ +-------+---+---+ +-------+ +-------+---+---+ | Given | 05/06/19 | 30 mg | | | | | 17 10:02 | | | | | | AM PDT | | | | +-------+ +-------+---+---+ | Given | 05/06/19 | 20 mg | | | | | 17 10:01 | | | | | | AM PDT | | | | +-------+ +-------+---+---+ +---+---+ | | | +---+---+ documented in this encounter"
--- OUTSIDE RECORDS SUMMARY | ~2019-01-07 | XMS | Encounter Summary ---
Demographics + + + | Address | [address] | | | [place] [address] | + + + | Home Phone [...] Author + + + | Author | [facility] [employer] [facility] | + + + | Organization | [facility] [employer] [facility] | + + + | Address | Unknown | + + + | Phone | Unavailable | + + + Support + + +---------+ + | Name | Relationship | Address | Phone | + + +---------+ + | Mary Medellin | ECON | Unknown | | + + +---------+ + Care Team Providers + +------+ + | Care Fleet Sales Manager Name | Role | Phone | + +------+ + | Shakir Monzon MD | PCP | | + +------+ + Reason for Visit + + + | Reason | Comments | + + + | Medical Records | 04/23/17 HCV viral load | | Review | | + + + Encounter Details +--------+ + + + + | Date | Type | Department | Care Team | Description | +--------+ + + + + | 05/06/ | Abstract | [facility] | Bessy Solano, | Medical Records | | 2018 | | [place] [address] | [place] [address] [facility] | Review (04/23/17 HCV | | | | [place] | [address] | viral load) | | | | Mailcode: OC8D | [place], [place] | | | | | [facility] | [address] | | | | | and [place], | [phone] | | | | | [place] [address] | | | | | | [place], [place] | | | | | | [address] | | | | | | [phone] | | | +--------+ + + + [...]
--- OUTSIDE RECORDS SUMMARY | ~2019-01-07 | XMS | Encounter Summary ---
Demographics + + + | Address | [address] | | | [place] [address] | + + + | Home Phone | | + + + | Preferred Language | Unknown | + + + | Marital Status | Single | + + + | Rastafari Affiliation | Unknown | + + + | Race | Unknown | + + + | Ethnic Group | Unknown | + + + Author + + + | Author | [facility] | | | and [place] | + + + | Organization | [facility] | | | [...] Team Providers + +------+ + | Care Registered Nurse Nursery Name | Role | Phone | + +------+ + | Shakir Monzon DO | PCP | | + +------+ + Reason for Visit +--------+ + | Reason | Comments | +--------+ + | EGD | esophageal varices | +--------+ + Encounter Details +--------+ + + + + | Date | Type | Department | Care Team | Description | +--------+ + + + + | 06/30/ | Telephone | [facility] | Donell Hunt MD | EGD (esophageal | | 2017 | | GASTROENTEROLOGY | [address] | varices) | | | | [address] [facility] | [place], [place] | | | | | [address] [place], [place] | [address] | | | | | [address] | [phone] | | | | | [phone] | | | +--------+ + + + [...] | | | | | [place], [place] | | | | | | [address] | | | | | | | | +--------+---------+ + + + documented as of this encounter Visit Diagnoses + + | Diagnosis | + + | Cirrhosis of liver without ascites, unspecified hepatic cirrhosis type (HCC) - Primary | + + | Esophageal varices determined by endoscopy (HCC) | + + | Marijuana use, continuous | + + documented in this encounter"
--- OUTSIDE RECORDS SUMMARY | ~2019-01-07 | XMS | Encounter Summary ---
Demographics + + + | Address | [address] | | | [place] [address] | + + + | Home Phone | | + + + | Preferred Language | Unknown | + + + | Marital Status | Single | + + + | Mosque Affiliation | Unknown | + + + | Race | Unknown | + + + | Ethnic Group | Unknown | + + + Author + + + | Author | [facility] | | | and [place] | + + + | Organization | [facility] | | | [...] Team Providers + +------+ + | Care It Corporate Recruiter Name | Role | Phone | + +------+ + | Shakir Monzon DO | PCP | | + +------+ + Encounter Details +--------+ + + + + | Date | Type | Department | Care Team | Description | +--------+ + + + + | 09/07/ | Episode | [facility] | Brandi Serrano, | | | 2016 | Changes | GASTROENTEROLOGY | RN | | | | | [address] [place] | | | | | | [address] [place] | | | | | | [address] | | | | | | [phone] | | | +--------+ + + + [...] | | | | | [place] | | | | | | [address] | | | | | | | | +--------+---------+ + + + documented as of this encounter Visit Diagnoses Not on filedocumented in this encounter"
--- OUTSIDE RECORDS SUMMARY | ~2019-01-07 | XMS | Encounter Summary ---
Demographics + + + | Address | [address] | | | [place] [address] | + + + | Home Phone | | + + + | Preferred Language | Unknown | + + + | Marital Status | Single | + + + | Temple Affiliation | NRP | + + + | Race | or | + + + | Ethnic Group | Not or | + + + Author + + + | Author | [facility] [facility] | + + + | Organization | [facility] [employer] [facility] | + + + | Address | Unknown | + + + | Phone | Unavailable | + + + Support + + +---------+ + | Name | Relationship | Address | Phone | + + +---------+ + | Mary Medellin | ECON | Unknown | | + + +---------+ + Care Team Providers + +------+ + | Care Health Care / Medical Job Titles Name | Role | Phone | + +------+ + | Shakir Monzon MD | PCP | | + +------+ + Encounter Details +--------+ + + + + | Date | Type | Department | Care Team | Description | +--------+ + + + + | 08/06/ | Document-Sc | UNKNOWN DEPARTMENT | Unknown . | | | 2018 | anned | [address] | | | | | | [address] | | | | | | [place], [place] | | | | | | [address] | | | +--------+ + + + [...]
--- OUTSIDE RECORDS SUMMARY | ~2019-01-07 | XMS | Encounter Summary ---
Demographics + + + | Address | [address] | | | [place] [address] | + + + | Home Phone | | + + + | Preferred Language | Unknown | + + + | Marital Status | Single | + + + | Nondenominational Affiliation | Unknown | + + + | Race | Unknown | + + + | Ethnic Group | Unknown | + + + Author + + + | Author | [facility] | | | and [place] | + + + | Organization | [facility] | | | [...] Team Providers + +------+ + | Care Racing Secretary Name | Role | Phone | + +------+ + | Mookie Castro PA-C | PCP | | + +------+ + Encounter Details +--------+ + + + + | Date | Type | Department | Care Team | Description | +--------+ + + + + | 03/20/ | Abstract | [facility] [place] | [facility], | | | 2016 | | GASTROENTEROLOGY | [place] [address] | | | | | [address] [place] | [place] | | | | | [address] [place] | [place] | | | | | [address] | [address] | | | | | [phone] | | | +--------+ + + + [...] | | | | | [place] | | | | | | [id number] | | | | | | | | +--------+---------+ + + + documented as of this encounter Procedures + +--------+ + + + | Procedure Name | Priori | Date/Time | Associated Diagnosis | Comments | | | ty | | | | + +--------+ + + + | EXTERNAL LAB: BUN | Routin | 02/17/2016 | | Results for this | | | e | | | procedure are in the | | | | | | results section. | + +--------+ + + + | EXTERNAL LAB: | Routin | 02/17/2016 | | Results for this | | GLUCOSE | e | | | procedure are in the | | | | | | results section. | + +--------+ + + + | EXTERNAL LAB: | Routin | 02/17/2016 | | Results for this | | TROPONIN I | e | | | procedure are in the | | | | | | results section. | + +--------+ + + + | EXTERNAL LAB: ALT | Routin | 02/17/2016 | | Results for this | | | e | | | procedure are in the | | | | | | results section. | + +--------+ + + + | EXTERNAL LAB: AST | Routin | 02/17/2016 | | Results for this | | | e | | | procedure are in the | | | | | | results section. | + +--------+ + + + | EXTERNAL LAB: | Routin | 02/17/2016 | | Results for this | | ALKALINE PHOSPHATASE | e | | | procedure are in the | | | | | | results section. | + +--------+ + + + | EXTERNAL LAB: | Routin | 02/17/2016 | | Results for this | | BILIRUBIN, TOTAL | e | | | procedure are in the | | | | | | results section. | + +--------+ + + + | EXTERNAL LAB: | Routin | 02/17/2016 | | Results for this | | ALBUMIN | e | | | procedure are in the | | | | | | results section. | + +--------+ + + + | EXTERNAL LAB: | Routin | 02/17/2016 | | Results for this | | PROTEIN, TOTAL | e | | | procedure are in the | | | | | | results section. | + +--------+ + + + | EXTERNAL LAB: | Routin | 02/17/2016 | | Results for this | | CALCIUM | e | | | procedure are in the | | | | | | results section. | + +--------+ + + + | EXTERNAL LAB: CARBON | Routin | 02/17/2016 | | Results for this | | DIOXIDE | e | | | procedure are in the | | | | | | results section. | + +--------+ + + + | EXTERNAL LAB: | Routin | 02/17/2016 | | Results for this | | CHLORIDE | e | | | procedure are in the | | | | | | results section. | + +--------+ + + + | EXTERNAL LAB: | Routin | 02/17/2016 | | Results for this | | POTASSIUM | e | | | procedure are in the | | | | | | results section. | + +--------+ + + + | EXTERNAL LAB: SODIUM | Routin | 02/17/2016 | | Results for this | | | e | | | procedure are in the | | | | | | results section. | + +--------+ + + + | EXTERNAL LAB: | Routin | 02/17/2016 | | Results for this | | URINALYSIS | e | | | procedure are in the | | | | | | results section. | + +--------+ + + + | EXTERNAL LAB: CBC | Routin | 02/17/2016 | | Results for this | | | e | | | procedure are in the | | | | | | results section. | + +--------+ + + + | EXTERNAL LAB: EGFR | Routin | 02/17/2016 | | Results for this | | | e | | | procedure are in the | | | | | | results section. | + +--------+ + + + | EXTERNAL LAB: | Routin | 02/17/2016 | | Results for this | | CREATININE | e | | | procedure are in the | | | | | | results section. | + +--------+ + + + | URINALYSIS, REFLEX | Routin | 02/17/2016 | | Results for this | | MICROSCOPIC AND/OR | e | | | procedure are in the | | CULTURE | | | | results section. | + +--------+ + + + | CBC WITH | Routin | 02/17/2016 | | Results for this | | DIFFERENTIAL | e | | | procedure are in the | | | | | | results section. | + +--------+ + + + | COMPREHENSIVE | Routin | 02/17/2016 | | Results for this | | METABOLIC PANEL | e | | | procedure are in the | | | | | | results section. | + +--------+ + + + documented in this encounter Results Urinalysis, Reflex Microscopic and/or Culture (02/17/2016) + + + + + + | Component | Value | Ref Range | Performed | Pathologist | | | | | At | Signature | + + + + + + | COLLECTION | Clean Catch | | | | | METHOD 1 | | | | | + + + + + + | Color | Yellow | | | | + + + + + + | Clarity | Clear | | | | + + + + + + | Bilirubin, | Negative | Negative | | | | Urine | | | | | + + + + + + | Urobilinoge | 1 mg/dL | < 0.2 mg/dL, | | | | n, Urine | | 1.0 mg/dL, 4.0 | | | | | | mg/dL, Normal, | | | | | | 1.0 E.U./dL, | | | | | | 0.2 E.U./dL, | | | | | | 0.2 mg/dL, | | | | | | Negative, 1 | | | | | | mg/dL, <2.0 | | | | | | mg/dL | | | + + + + + + | Nitrite, | Negative | Negative | | | | Urine | | | | | + + + + + + | Bacteria, | 1+ | | | | | UA | | | | | + + + + + + | CASTS | Negative | | | | + + + + + + | CRYSTAL UA | Negative | | | | + + + + + + | Epithelial | 1+ | | | | | Cells | | | | | + + + + + + | WBC, UA | 0 | | | | + + + + + + + + | Specimen | + + | Urine specimen | | (specimen) | + + Comprehensive Metabolic Panel (02/17/2016) + +---------+ + + + | Component | Value | Ref Range | Performed | Pathologist | | | | | At | Signature | + +---------+ + + + | Anion Gap | 14 | mmol/L | | | + +---------+ + + + | BUN/Creatin | 13.3 | | | | | ine Ratio | | | | | + +---------+ + + + | Globulin | 4.2 (A) | 1.8 - 3.6 | | | + +---------+ + + + | Albumin/Alessia | 0.6 (A) | 1.1 - 2.4 | | | | bulin Ratio | | | | | + +---------+ + + + | Ammonia | 122 (A) | 11 - 35 | | | + +---------+ + + + + + | Specimen | + + | Blood specimen | | (specimen) | + + CBC with Differential (02/17/2016) + +---------+ + + + | Component | Value | Ref Range | Performed | Pathologist | | | | | At | Signature | + +---------+ + + + | MCH | 32.0 | 26.0 - 33.0 pg | | | + +---------+ + + + | MCHC | 34.0 | 31.0 - 37.0 % | | | + +---------+ + + + | % Basophils | 1.6 (A) | 1.0 % | | | + +---------+ + + + + + | Specimen | + + | Blood specimen | | (specimen) | + + External Lab: ELIN (02/17/2016) + +-------+ + + + | Component | Value | Ref Range | Performed | Pathologist | | | | | At | Signature | + +-------+ + + + | BUN, | 12 | 6 - 23 | EXTERNAL | | | External | | | LAB | | + +-------+ + + + + +---------+ + + | Performing | Address | City/State/Zipcode | Phone Number | | Organization | | | | + +---------+ + + | EXTERNAL LAB | | | | + +---------+ + + External Lab: Glucose (02/17/2016) + +---------+ + + + | Component | Value | Ref Range | Performed | Pathologist | | | | | At | Signature | + +---------+ + + + | Glucose, | 298 (A) | 70 - 100 | EXTERNAL | | | External | | | LAB | | + +---------+ + + + + +---------+ + + | Performing | Address | City/State/Zipcode | Phone Number | | Organization | | | | + +---------+ + + | EXTERNAL LAB | | | | + +---------+ + + External Lab: Troponin I (02/17/2016) + +--------+ + + + | Component | Value | Ref Range | Performed | Pathologist | | | | | At | Signature | + +--------+ + + + | Troponin I, | <0.010 | | EXTERNAL | | | External | | | LAB | | + +--------+ + + + + +---------+ + + | Performing | Address | City/State/Zipcode | Phone Number | | Organization | | | | + +---------+ + + | EXTERNAL LAB | | | | + +---------+ + + External Lab: ALT (02/17/2016) + +---------+ + + + | Component | Value | Ref Range | Performed | Pathologist | | | | | At | Signature | + +---------+ + + + | ALT, | 131 (A) | 7 - 52 | EXTERNAL | | | External | | | LAB | | + +---------+ + + + + +---------+ + + | Performing | Address | City/State/Zipcode | Phone Number | | Organization | | | | + +---------+ + + | EXTERNAL LAB | | | | + +---------+ + + External Lab: AST (02/17/2016) + +---------+ + + + | Component | Value | Ref Range | Performed | Pathologist | | | | | At | Signature | + +---------+ + + + | AST, | 124 (A) | 13 - 39 | EXTERNAL | | | External | | | LAB | | + +---------+ + + + + +---------+ + + | Performing | Address | City/State/Zipcode | Phone Number | | Organization | | | | + +---------+ + + | EXTERNAL LAB | | | | + +---------+ + + External Lab: Alkaline Phosphatase (02/17/2016) + +-------+ + + + | Component | Value | Ref Range | Performed | Pathologist | | | | | At | Signature | + +-------+ + + + | ALP, | 71 | 30 - 128 | EXTERNAL | | | External | | | LAB | | + +-------+ + + + + +---------+ + + | Performing | Address | City/State/Zipcode | Phone Number | | Organization | | | | + +---------+ + + | EXTERNAL LAB | | | | + +---------+ + + External Lab: Bilirubin, Total (02/17/2016) + +---------+ + + + | Component | Value | Ref Range | Performed | Pathologist | | | | | At | Signature | + +---------+ + + + | Bilirubin, | 1.7 (A) | 0 - 1.2 | EXTERNAL | | | Total, | | | LAB | | | External | | | | | + +---------+ + + + + +---------+ + + | Performing | Address | City/State/Zipcode | Phone Number | | Organization | | | | + +---------+ + + | EXTERNAL LAB | | | | + +---------+ + + External Lab: Albumin (02/17/2016) + +---------+ + + + | Component | Value | Ref Range | Performed | Pathologist | | | | | At | Signature | + +---------+ + + + | Albumin, | 3.2 (A) | 3.5 - 5 | EXTERNAL | | | External | | | LAB | | + +---------+ + + + + +---------+ + + | Performing | Address | City/State/Zipcode | Phone Number | | Organization | | | | + +---------+ + + | EXTERNAL LAB | | | | + +---------+ + + External Lab: Protein, Total (02/17/2016) + +-------+ + + + | Component | Value | Ref Range | Performed | Pathologist | | | | | At | Signature | + +-------+ + + + | Protein, | 7.4 | 6 - 8 | EXTERNAL | | | Total, | | | LAB | | | External | | | | | + +-------+ + + + + +---------+ + + | Performing | Address | City/State/Zipcode | Phone Number | | Organization | | | | + +---------+ + + | EXTERNAL LAB | | | | + +---------+ + + External Lab: Calcium (02/17/2016) + +-------+ + + + | Component | Value | Ref Range | Performed | Pathologist | | | | | At | Signature | + +-------+ + + + | Calcium, | 8.9 | 8.4 - 10.2 | EXTERNAL | | | External | | | LAB | | + +-------+ + + + + +---------+ + + | Performing | Address | City/State/Zipcode | Phone Number | | Organization | | | | + +---------+ + + | EXTERNAL LAB | | | | + +---------+ + + External Lab: Carbon Dioxide (02/17/2016) + +--------+ + + + | Component | Value | Ref Range | Performed | Pathologist | | | | | At | Signature | + +--------+ + + + | Carbon | 15 (A) | 19 - 31 | EXTERNAL | | | Dioxide, | | | LAB | | | External | | | | | + +--------+ + + + + +---------+ + + | Performing | Address | City/State/Zipcode | Phone Number | | Organization | | | | + +---------+ + + | EXTERNAL LAB | | | | + +---------+ + + External Lab: Chloride (02/17/2016) + +-------+ + + + | Component | Value | Ref Range | Performed | Pathologist | | | | | At | Signature | + +-------+ + + + | Chloride, | 111 | 95 - 112 | EXTERNAL | | | External | | | LAB | | + +-------+ + + + + +---------+ + + | Performing | Address | City/State/Zipcode | Phone Number | | Organization | | | | + +---------+ + + | EXTERNAL LAB | | | | + +---------+ + + External Lab: Potassium (02/17/2016) + +-------+ + + + | Component | Value | Ref Range | Performed | Pathologist | | | | | At | Signature | + +-------+ + + + | Potassium, | 4.0 | 3.6 - 5.1 | EXTERNAL | | | External | | | LAB | | + +-------+ + + + + +---------+ + + | Performing | Address | City/State/Zipcode | Phone Number | | Organization | | | | + +---------+ + + | EXTERNAL LAB | | | | + +---------+ + + External Lab: Sodium (02/17/2016) + +-------+ + + + | Component | Value | Ref Range | Performed | Pathologist | | | | | At | Signature | + +-------+ + + + | Sodium, | 136 | 132 - 143 | EXTERNAL | | | External | | | LAB | | + +-------+ + + + + +---------+ + + | Performing | Address | City/State/Zipcode | Phone Number | | Organization | | | | + +---------+ + + | EXTERNAL LAB | | | | + +---------+ + + External Lab: Urinalysis (02/17/2016) + + + + + + | Component | Value | Ref Range | Performed | Pathologist | | | | | At | Signature | + + + + + + | UA Blood, | 250 (A) | 0 - 0 | EXTERNAL | | | External | | | LAB | | + + + + + + | UA Glucose, | 1,000 | | EXTERNAL | | | External | | | LAB | | + + + + + + | UA Ketones, | Negative | | EXTERNAL | | | External | | | LAB | | + + + + + + | UA Ph, | 6 | 5 - 9 | EXTERNAL | | | External | | | LAB | | + + + + + + | UA | 30 (A) | 0 - 0 | EXTERNAL | | | Proteins, | | | LAB | | | External | | | | | + + + + + + | UA RBC, | 30 (A) | 0 - 4 | EXTERNAL | | | External | | | LAB | | + + + + + + | UA Specific | 1.026 | 1.005 - 1.03 | EXTERNAL | | | [place], | | | LAB | | | External | | | | | + + + + + + | UA | Negative | | EXTERNAL | | | Leukocyte | | | LAB | | | Esterase, | | | | | | External | | | | | + + + + + + + +---------+ + + | Performing | Address | City/State/Zipcode | Phone Number | | Organization | | | | + +---------+ + + | EXTERNAL LAB | | | | + +---------+ + + External Lab: CBC (02/17/2016) + +--------+ + + + | Component | Value | Ref Range | Performed | Pathologist | | | | | At | Signature | + +--------+ + + + | WBC, | 6.2 | 4.5 - 11 | EXTERNAL | | | External | | | LAB | | + +--------+ + + + | HGB, | 15.4 | 13.5 - 18 | EXTERNAL | | | External | | | LAB | | + +--------+ + + + | HCT, | 46.6 | 41 - 50 | EXTERNAL | | | External | | | LAB | | + +--------+ + + + | PLT, | 67 (A) | 140 - 440 | EXTERNAL | | | External | | | LAB | | + +--------+ + + + | RBC, | 4.79 | 4.3 - 5.7 | EXTERNAL | | | External | | | LAB | | + +--------+ + + + | MCV, | 95 | 81 - 99 | EXTERNAL | | | External | | | LAB | | + +--------+ + + + | RDW, | 12.4 | 10.6 - 15 | EXTERNAL | | | External | | | LAB | | + +--------+ + + + + +---------+ + + | Performing | Address | City/State/Zipcode | Phone Number | | Organization | | | | + +---------+ + + | EXTERNAL LAB | | | | + +---------+ + + External Lab: eGFR (02/17/2016) + +-------+ + + + | Component [...] | | (specimen) | + + + +---------+ + + | Performing | Address | City/State/Zipcode | Phone Number | | Organization | | | | + +---------+ + + | EXTERNAL LAB | | | | + +---------+ + + External Lab: Creatinine (02/17/2016) + +-------+ + + + | Component | Value | Ref Range | Performed | Pathologist | | | | | At | Signature | + +-------+ + + + | Creatinine, | 0.90 | 0.7 - 1.25 | EXTERNAL | | | External | | | LAB | | + +-------+ + + + + + | Specimen | + + | Blood specimen | | (specimen) | + + + +---------+ + + | Performing | Address | City/State/Zipcode | Phone Number | | Organization | | | | + +---------+ + + | EXTERNAL LAB | | | | + +---------+ + + documented in this encounter Visit Diagnoses Not on filedocumented in this encounter"
--- OUTSIDE RECORDS SUMMARY | ~2019-01-07 | XMS | Encounter Summary ---
Demographics + + + | Address | [address] | | | [place] [address] | + + + | Home Phone | | + + + | Preferred Language | Unknown | + + + | Marital Status | Single | + + + | Congregation Affiliation | NRP | + + + | Race | or | + + + | Ethnic Group | Not or | + + + Author + + + | Author | [facility] | + + + | Organization | [facility] | + + + | Address | Unknown | + + + | Phone | Unavailable | + + + Support + + +---------+ + | Name | Relationship | Address | Phone | + + +---------+ + | Mary Medellin | ECON | Unknown | | + + +---------+ + Care Team Providers + +------+ + | Care Intramural Director Name | Role | Phone | [...] + + | 04/28/ | Emergency | [facility] Emergency | | | | 2017 | | Department [address] | | | | | [address] | | | | | | [facility] | | | | | | [place], [place] | | | | | | [address] | | | | | | [phone] | | | +--------+ + + + [...] [facility] Staff Contacted by Dr. Waqas Quiroga, [facility] Franco Rodrigojaclyn re: this 61 yo with Hep C cirrhosis, DM wh o presented first to [place] ED with chest and abdominal pain. Per report, RUQ US was c/f acute cholecystitis so transferred to [facility]. There, noted to have elevated troponin 0 .26 (ULN 0.04). Cardiac cath performed with "severe multivessel disease" Had repeat RUQ US (no results available) as well as MRCP at [facility] without e/o acute ch olecystitis but ?stone in distal CBD. LFTs at [facility] AST 31, ALT 16, Alk phos 58, [...] to have MRCP images pushed over from [facility] to review If there is e/o retained [...]
--- OUTSIDE RECORDS SUMMARY | ~2019-01-07 | XMS | Encounter Summary ---
Demographics + + + | Address | [address] | | | [place] [address] | + + + | Home Phone | | + + + | Preferred Language | Unknown | + + + | Marital Status | Single | + + + | Temple Affiliation | Unknown | + + + | Race | Unknown | + + + | Ethnic Group | Unknown | + + + Author + + + | Author | [facility] | | | and [place] | + + + | Organization | [facility] | | | [...] Team Providers + +------+ + | Care Histology Aide Name | Role | Phone | [...] | | | | | | | [place] | | | | | | | ESOPHAGOGAST | | | | | | | RODUODENOSCO | | | | | | | PY TRANSORAL | | | | | | | DIAGNOSTIC | | | | | | | [place] EGD | | | | | | | TRANSORAL | | | | | | | BIOPSY | | | | | | | SINGLE/MULTI | | | | | | | PLE [place] | | | | | | | ANESTH,UGI | | | | | | | ENDOSCOPY | | | | | | | EGD | | | +--------+--------+ + + + + Encounter Details +--------+ + + + + | Date | Type | Department | Care Team | Description | +--------+ + + + + | 05/05/ | Hospital | [facility] | Donell Hunt MD | Hepatic cirrhosis, | | 2017 | Encounter | [facility] | [address] | unspecified hepatic | | | | [address] | [place], [place] | cirrhosis type (HCC) | | | | [place], [place] | [address] | (Primary Dx) | | | | [address] | [phone] | | | | | [phone] | | | +--------+ + + + [...] documented in this encounter Discharge Instructions Instructions Dnoell Hunt MD - 05/04/2016Patient Discharge Instructions after [...] the physician who did your procedure at [phone] if you have any questions or experience any of the following: ? Increasing abdominal pain, nausea, or vomiting. ? Chills and fever over 101F. ? New abdominal swelling or bloating. ? Signs of rectal bleeding (black or red stool). If you cannot get a hold of your physician, then call the [facility] [phone] . If necessary, report to the Emergency Department at [facility]. Quit smoking: If you smoke or [...] | | | | | [place], [place] | | | | | | [address] | | | | | | | [...] | | GastroenterologyPatient Name: Bret Yoder Date: 05/05/2016 | PROVATION | | 9:49 AMN: [id number] #: [id number] of : | | | 1955d[place] Type: AmbulatoryAge: 60[facility] 02Gender: MaleNote | | | Status: FinalizedAttending MD: Donell Hunt , [facility]cedure: | | | Upper GI endoscopyIndications: For therapy of | | | esophageal varicesProviders: Donell Hunt MD, Jennifer | | | SADA Mackenzie, Daniella Yousif, [facility], | | | Preston Wheat MD (Anesthesia [...] | | | the anesthesiologist and the wafer fabrication technician in the pre-procedure | | | [...] | | | AMScope Out: 10:06:08 AM [facility], [facility] | | | [place] [address] | | | instructions were provided to [...] |Scope Out: 10:06:08 AM | | | [facility], [address] [place], [place] | | | [address] | | + + -+ + +---------+ [...] ST. | [address] | [place] | [phone] | | [facility] | | [address] | | | - LABORATORY | | | | + + + + + Surgical Pathology Exam (05/05/2016 12:00 AM PDT) + + | Specimen | + + | | + + + + + | Narrative | Performed At | + + + | SPECIMEN(S): A GASTRIC BIOPSY SPECIMEN SOURCE: A. GASTRIC | [place] [facility] | | BIOPSY CLINICAL HISTORY: K74.60 [...] organisms by immunohistochemical stain. | | | [facility] GROSS DESCRIPTION: Received in formalin labeled | | | "Bret Steptoe" and "gastric bxs" on the requisition are six pink-flowers | | | tissue fragments measuring from 0.2-0.7 cm, submitted, all in (A1). | | | ka:[facility] ADDITIONAL NOTES: Immunohistochemical studies were | | | performed on this case with the appropriate negative and positive | | | controls that react as expected. This test was developed and its | | | performance characteristics determined by [facility]. It | | | has not been cleared or approved by the U.S. Food and Drug | | | Administration. The FDA has determined that such clearance or | | | approval is not necessary. This test is used for clinical purposes. | | | It should not be regarded as investigational or for research. | | | [facility] is certified under the Clinical Laboratory | | | Improvement Amendments of 1988 (CLIA) as qualified to perform high | | | complexity clinical laboratory testing PERFORMING LABORATORY: | | | Tissue processing and slide preparation were performed by [facility] | | | [facility], [address], [place] [address] | | | (Sample Stitcher: Catrachito Ortiz M.D. CLIA#: [id number]). | | | Professional interpretation was performed by [facility], [address], [place] [address] (Sample Stitcher: Catrachito | | | Natalya Ortiz; CLIA#: [id number]). Diagnostician: | | | Mina Terrell MD [...] Primary | + + documented in this encounter [...]
--- OUTSIDE RECORDS SUMMARY | ~2019-01-07 | XMS | Encounter Summary ---
Demographics + + + | Address | [address] | | | [place] [address] | + + + | Home Phone | | + + + | Preferred Language | Unknown | + + + | Marital Status | Single | + + + | Restorationism Affiliation | Unknown | + + + [...] Team Providers + +------+ + | Care Director Safety Council Name | Role | Phone | + +------+ + | Shakir Monzon DO | PCP | | + +------+ + Reason for Visit +--------+ + | Reason | Comments | +--------+ + | Other | | +--------+ + Encounter Details +--------+ + + + + | Date | Type | Department | Care Team | Description | +--------+ + + + + | 11/17/ | Telephone | [facility] | Donell Hunt MD | Other | | 2018 | | GASTROENTEROLOGY | [address] | | | | | [address] [facility] | [place], [place] | | | | | [address] [place] | [address] | | | | | [address] | [phone] | | | | | [phone] | | | +--------+ + + + [...] | | | | | [address] [place] | | | | | | [address] | | | | | | | | +--------+---------+ + + + documented as of this encounter Visit Diagnoses Not on filedocumented in this encounter"
--- OUTSIDE RECORDS SUMMARY | ~2019-01-07 | XMS | Encounter Summary ---
Demographics + + + | Address | [address] | | | [place] [address] | + + + | Home Phone | | + + + | Preferred Language | Unknown | + + + | Marital Status | Single | + + + | Shinto Affiliation | Unknown | + + + [...] Team Providers + +------+ + | Care Spectral Scientist Name | Role | Phone | + [...] | [facility] CTR [facility]TER[facility] | MD [id number] | | | | | IMAGING | [address] | | | | | [phone] | [place] [address] | | +--------+ + + + + [...] [place] | | | | | | [address] | | | | | | | | +--------+---------+ + + + documented as of this encounter Procedures + +--------+ + + + | Procedure Name | Priori | Date/Time | Associated Diagnosis | Comments | | | ty | | | | + +--------+ + + + | CT ANGIOGRAM CHEST W | Routin | 04/25/2017 | | Results for this | | CONTRAST | e | 6:50 AM | | procedure are in the | | | | PDT | | results section. | + +--------+ + + + documented in this encounter Results CT Angiogram Chest W Contrast (04/25/2017 6:50 AM PDT) + + | Specimen | [...]
--- OUTSIDE RECORDS SUMMARY | ~2019-01-07 | XMS | Encounter Summary ---
Demographics + + + | Address | [address] | | | [place] [address] | + + + | Home Phone | | + + + | Preferred Language | Unknown | + + + | Marital Status | Single | + + + | Mandaeism Affiliation | NRP | + + + | Race | or | + + + | Ethnic Group | Not or | + + + Author + + + | Author | [facility] | + + + | Organization | [facility] | + + + | Address | Unknown | + + + | Phone | Unavailable | + + + Support + + +---------+ + | Name | Relationship | Address | Phone | + + +---------+ + | Mary Medellin | ECON | Unknown | | + + +---------+ + Care Team Providers + +------+ + | Care Rent And Miscellaneous Remittance Clerk Name | Role | Phone | + +------+ + | Shakir Monzon MD | PCP | | + +------+ + Reason for Visit Consultation (Urgent) +--------+--------+ + + + + | Status | Reason | Specialty | Diagnoses / | Referred By | Referred To | | | | | Procedures | Contact | Contact | +--------+--------+ + + + + | Closed | | Trauma Center | Diagnoses | [facility]uma | | | | | | Shakir Fagan MD | Center Ppv | | | | | [place] | [place] | [address] [facility] | | | | | es | [place] | [facility] | | | | | | Health | Rd Mailcode: | | | | | | Center | [address] | | | | | | [address] | Physician's | | | | | | Confederated | [address] | | | | | | Way | [address] | | | | | | [place], | [place], [place] | | | | | | [place] [address] | [address] | | | | | | Phone: | Phone: | | | | | | [phone] | [phone] | | | | | | Fax: | Fax: | | | | | | [phone] | [phone] | +--------+--------+ + + + + Encounter [...] acute | | | | PPV [address] | [address] | cholecystitis and | | | | [address] | [facility], [place] | obstruction (Primary | | | | Mailcode: [address]A | [address] | Dx); Chronic | | | | [facility] | [phone] | hepatitis C without | | | | [address] [place], [place] | | hepatic coma (HCC) | | | | [address] | | | | | | [phone] | | | +--------+---------+ + + + [...] Pressure | 118/55 | 08/13/2017 1:56 PM | | | | | PDT | | + + + + + | Pulse | 58 | 08/13/2017 1:56 PM | | | | | PDT | | + + + + + | Temperature | 36.6 C (97.9 F) | 08/13/2017 1:56 PM | | | | | PDT | | + + + + + | Respiratory Rate | 20 | 08/13/2017 1:56 PM | | | | | PDT | | + + + + + | Oxygen Saturation | 97% | 08/13/2017 1:56 PM | | | | | PDT | | + + + + + | Inhaled Oxygen | - | - | | | Concentration | | | | + + + + + | Weight | 92.2 kg (203 lb 3.2 | 08/13/2017 1:56 PM | | | | oz) | PDT | | + + + + + | Height | 179.1 cm (5' 10.5") | 08/13/2017 1:56 PM | | | | | PDT | | + + + + + | Body Mass Index | 28.74 | 08/13/2017 1:56 PM | | | | | PDT [...] documented as of this encounter Progress Notes Dion [...] and not resume. Dion Mac MD, FACS Fire Dispatcher, Trauma, Critical Care and Acute Care Surgery documented in this en counter Plan of Treatment +--------+ + + + [...] with acute cholecystitis and obstruction - Primary Calculus of | | gallbladder with acute cholecystitis and obstruction | + + | Chronic hepatitis C without hepatic coma (HCC) | + + documented in this encounter
--- OUTSIDE RECORDS SUMMARY | ~2019-01-07 | XMS | Encounter Summary ---
Demographics + + + | Address | [address] | | | [place] [address] | + + + | Home Phone | | + + + | Preferred Language | Unknown | + + + | Marital Status | Single | + + + | Latter-Day Affiliation | NRP | + + + | Race | or | + + + | Ethnic Group | Not or | + + + Author + + + | Author | [facility] | + + + | Organization | [facility] | + + + | Address | Unknown | + + + | Phone | Unavailable | + + + Support + + +---------+ + | Name | Relationship | Address | Phone | + + +---------+ + | Mary Medellin | ECON | Unknown | | + + +---------+ + Care Team Providers + +------+ + | Care Tow Operator Name | Role | Phone | [...] (Labs | | 2017 | on | [place] at [facility] [address] | [place] [address] | 01/28/17) | | | | [address] | [facility] | | | | | Mailcode: OC8D | [place], [place] | | | | | [facility] | [address] | | | | | and Max[place], | [phone] | | | | | Building [address] | | | | | | [place], [place] | | | | | | [address] | | | | | | [phone] | | | +--------+ + + + [...] + + | PAML | | | [phone] | + +---------+ + + INR (01/28/2017) [...] + + | [facility]AML | | | [phone] | + +---------+ + + COMPLETE METABOLIC [...] + + | [facility] | | | [phone] | + +---------+ + + documented in this encounter Visit Diagnoses Not on filedocumented in this encounter"
--- OUTSIDE RECORDS SUMMARY | ~2019-01-07 | XMS | Encounter Summary ---
Demographics + + + | Address | [address] | | | [place] [address] | + + + | Home Phone | | + + + | Preferred Language | Unknown | + + + | Marital Status | Single | + + + | Advent Affiliation | NRP | + + + | Race | or | + + + | Ethnic Group | Not or | + + + Author + + + | Author | [facility] | + + + | Organization | [facility] [facility] | + + + | Address | Unknown | + + + | Phone | Unavailable | + + + Support + + +---------+ + | Name | Relationship | Address | Phone | + + +---------+ + | Mary Medellin | ECON | Unknown | | + + +---------+ + Care Team Providers + +------+ + | Care Leader Assembler Name | Role | Phone | [...] Pharmacy | | | | | | [address] | | | | | | [place], | | | | | | [place] [address] | | | | | | [phone] | | | +--------+ + + + [...]
--- OUTSIDE RECORDS SUMMARY | ~2019-01-07 | XMS | Encounter Summary ---
Demographics + + + | Address | [address] | | | [place] [address] | + + + | Home Phone [...] | Author | [facility] | + + + | Organization | [facility] [employer] [facility] | + + + | Address | Unknown | + + + | Phone | Unavailable | + + + Support + + +---------+ + | Name | Relationship | Address | Phone | + + +---------+ + | Mary Medellin | ECON | Unknown | | + + +---------+ + Care Team Providers + +------+ + | Care Regional Maintenance Manager Name | Role | Phone | [...] | +--------+ + + + + | 11/11/ | Telephone | [facility] | Clinton Morillo, | Surgery Scheduling | | 2018 | | Center at [facility] [address] | MD [address] | | | | | [address] | [address] | | | | | Mailcode: Center | [place], [place] | | | | | [facility] and | [address] | | | | | [facility] 2 | [phone] | | | | | [place], [place] | | | | | | [address] | | | | | | [phone] | | | +--------+ + + + [...]
--- OUTSIDE RECORDS SUMMARY | ~2019-01-07 | XMS | Encounter Summary ---
Demographics + + + | Address | [address] | | | [place] [address] | + + + | Home Phone [...] + + | Author | [facility] | + + + | Organization | [facility] | + + + | Address | Unknown | + + + | Phone | Unavailable | + + + Support + + +---------+ + | Name | Relationship | Address | Phone | + + +---------+ + | Mary Medellin | ECON | Unknown | | + + +---------+ + Care Team Providers + +------+ + | Care Tank Truck Milk Receiver Name | Role | Phone | + [...] Rd | | | | | | [place], [place] | | | | | | [address] | | | +--------+ + + + [...]
--- OUTSIDE RECORDS SUMMARY | ~2019-01-07 | XMS | Encounter Summary ---
Demographics + + + | Address | [address] | | | [place] [address] | + + + | Home Phone [...] Author + + + | Author | [facility] | + + + | Organization | [facility] | + + + | Address | Unknown | + + + | Phone | Unavailable | + + + Support + + +---------+ + | Name | Relationship | Address | Phone | + + +---------+ + | Mary Medellin | ECON | Unknown | | + + +---------+ + Care Team Providers + +------+ + | Care Bundle Wrapper Name | Role | Phone | + [...] Patient | | 2019 | | Center at [facility] [address] | MD [address] | | | | | [address] | [address] | | | | | Mailcode: Center | [place], [place] | | | | | [facility] and | [address] | | | | | [facility] 2 | [phone] | | | | | [place], [place] | | | | | | [address] | | | | | | [phone] | | | +--------+ + + + [...] | +--------+ + + + + + +------+--------+ + + | Name | Type | Priori | Associated Diagnoses | Order Schedule | | | | ty | | | + +------+--------+ + + | HEMOGLOBIN A1C, | Lab | Urgent | Type 2 diabetes | Expected: 04/20/2018 | | BLOOD | | | mellitus with | (Approximate), | | | | | hyperglycemia, with | Expires: 05/22/2019 | | | | | long-term current | | | | | | use of insulin (HCC) | | + +------+--------+ + + documented as of this encounter Visit Diagnoses + + | Diagnosis | + + | Type 2 diabetes mellitus with hyperglycemia, with long-term current use of insulin | | (HCC) - Primary | + + documented in this encounter"
--- OUTSIDE RECORDS SUMMARY | ~2019-01-07 | XMS | Encounter Summary ---
Demographics + + + | Address | [address] | | | [place] [address] | + + + | Home Phone [...] + + + | Author | [facility] | + + + | Organization | [facility] | + + + | Address | Unknown | + + + | Phone | Unavailable | + + + Support + + +---------+ + | Name | Relationship | Address | Phone | + + +---------+ + | Mary Medellin | ECON | Unknown | | + + +---------+ + Care Team Providers + +------+ + | Care Manager Contract Name | Role | Phone | + [...] | | [place]ole[place]ias | [place] | [address] [facility] | | | | | es | [place] | [facility] | | | | | | Health | Rd Mailcode: | | | | | | Center | [address] | | | | | | [address] | Physician's | | | | | | Confederated | [address] | | | | | | Way | [address] | | | | | | [address], | [place], [place] | | | | | | [place] [address] | [address] | | | | | | Phone: | Phone: | | | | | | [phone] | [phone] | | | | | | Fax: | Fax: | | | | | | [phone] | [phone] | +--------+--------+ + + + + Encounter [...] | | | [address] | [place], [place] | obstruction (Primary | | | | Mailcode: L[address]A | [address] | Dx); Chronic | | | | [facility] | [phone] | hepatitis C without | | | | [address] [place], [place] | | hepatic coma (HCC) | | | | [address] | | | | | | [phone] | | | +--------+---------+ + + + [...] and not resume. Dion Mac MD, FACS Railcar Switcher, Trauma, Critical Care and Acute Care Surgery [...]
--- OUTSIDE RECORDS SUMMARY | ~2019-01-07 | XMS | Encounter Summary ---
Demographics + + + | Address | [address] | | | [place] [address] | + + + | Home Phone [...] + + + | Author | [facility] | | | and [place] | + + + | Organization | [facility] | | | [...] Team Providers + +------+ + | Care Rotary Helper Name | Role | Phone | [...] | | | | | without | [employer] FIN[employer]CIAL DEVELOPER [address] | | | | | ascites, | [place], [place] | [place], [place] | | | | | unspecified | [address] [place] | [address] | | | | | hepatic | [place] | Phone: | | | | | cirrhosis | [address] | [phone] | | | | | type (HCC) | Phone: | Fax: | | | | | | [phone] | [phone] | | | | | | Fax: | | | | | | | [phone] | | +--------+ + + + + [...] | | / | C/pt/yellowh | PA-C [address] | [employer] FINANCIAL DEVELOPER [address] | | | | Gastroenterol | awk/johana/ | CONFEDERATED | [place], [place] | | | | ogy | [address] | WAY | [address] [place] | | | | | is sending | [place], | [place], [place] | | | | | over auth on | [place] [address] | [address] Phone: | | | | | 03/10 | Phone: | [phone] | | | | | Procedures | [phone] | Fax: | | | | | OFFICE VISIT | Fax: | [phone] | | | | | REGULAR | [phone] | | +--------+--------+ + + + + [...] | [address] [place] | [place], [place] [address] | 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 Hunt. Referral entered for [facility] for liver transplantation; will send rona rds once approved; INR and AFP ordered per [facility]'s request, patient given order to take to [facility]; Insulin-dependent, told to half dose all diabetic medications night prior and none in A.M. For procedure, he verbalized understanding; received egd report from etelvina Mendoza in chart. PSR-- Please obtain ER records from [place] from 02/17/16 for Aspen's review. Ana sinclair [...] Surgical History Procedure Laterality Date Colonoscopy 2012 [place] Family History Problem Relation Age of Onset [...] Final eGFR, External 02/17/2016 >60 60 - 321127 Final WBC, External 02/17/2016 6.2 4.5 - [...] 30* 0 - 4 Final UA Specific Jordan, External 02/17/2016 1.026 1.005 - 1.03 Final [...] IN R Alpha Fetoprotein, Tumor Marker Referral [facility] Hepatology Case request: upper endoscopy; N/A likely [...] on of liver transplantation. Will refer to [facility] for consultation regarding liver transplantation. Varices: Patient [...] AFP every 6 months. 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 Cc: Shakri Monzon DO This note was dictated using [...] | | | | | [place], [place] | | | | | | [address] | | | | | | | [...]
--- OUTSIDE RECORDS SUMMARY | ~2019-01-07 | XMS | Encounter Summary ---
Demographics + + + | Address | [address] | | | [place] [address] | + + + | Home Phone | | + + + | Preferred Language | Unknown | + + + | Marital Status | Single | + + + | Jainism Affiliation | Unknown | + + + | Race | Unknown | + + + | Ethnic Group | Unknown | + + + Author + + + | Author | [facility] | | | and [place] | + + + | Organization | [facility] | | | [...] Team Providers + +------+ + | Care Admitting Officer Name | Role | Phone | [...] | MED CTR EX[facility] | MD [address]ie [address] | | | | | IMAGING | Stefanie [place] | | | | | [phone] | [place] [address] | | +--------+ + + + + [...] [place] | | | | | | [address] | | | | | | | | +--------+---------+ + + + documented as of this encounter Procedures + +--------+ + + + | Procedure Name | Priori | Date/Time | Associated Diagnosis | Comments | | | ty | | | | + +--------+ + + + | XR CHEST 2 VIEWS | Routin | 04/25/2017 | | Results for this | | | e | 5:30 AM | | procedure are in the | | | | PDT | | results section. | + +--------+ + + + documented in this encounter Results XR Chest 2 Vws (04/25/2017 5:30 AM PDT) + + | Specimen | [...]
--- OUTSIDE RECORDS SUMMARY | ~2019-01-07 | XMS | Encounter Summary ---
Demographics + + + | Address | [address] | | | [place] [address] | + + + | Home Phone [...] Team Providers + +------+ + | Care Lamp Shade Maker Name | Role | Phone | + [...] | | | | | | | [place] | | | | | | | ESOPHAGOGAST | | | | | | | RODUODENOSCO | | | | | | | PY TRANSORAL | | | | | | | DIAGNOSTIC | | | | | | | [place] EGD | | | | | | | TRANSORAL | | | | | | | BIOPSY | | | | | | | SINGLE/MULTI | | | | | | | PLE [place] | | | | | | | [...] | | | | | [address] | [place], [place] | | | | | [place], [place] | [address] | | | | | [address] | | | | | | [phone] | | | +--------+ + + + [...] 05/05/16 1105 by | | eral | sedx-myy-fxqidn catheter system; | Charo Cortez RN | [...] [place] | | | | | | [address] | | | | | | | [...]
--- OUTSIDE RECORDS SUMMARY | ~2019-01-07 | XMS | Encounter Summary ---
Demographics + + + | Address | [address] | | | [place] [address] | + + + | Home Phone [...] + | Author | [facility] | + + + | Organization | [facility] | + + + | Address | Unknown | + + + | Phone | Unavailable | + + + Support + + +---------+ + | Name | Relationship | Address | Phone | + + +---------+ + | Mary Medellin | ECON | Unknown | | + + +---------+ + Care Team Providers + +------+ + | Care Data Entry Supervisor Name | Role | Phone | [...] | | | | | [address] [facility] | [place], [place] | | | | | Primitivo Mailcode: UHN[address] | [address] | | | | | Vivian Mazariegos | [phone] | | | | | [address] [place], [place] | | | | | | [address] | | | | | | [phone] | | | +--------+ + + + [...]
--- OUTSIDE RECORDS SUMMARY | ~2019-01-07 | XMS | Encounter Summary ---
Demographics + + + | Address | [address] | | | [place] [address] | + + + | Home Phone [...] + + + | Author | [facility] | | | and [place] | + + + | Organization | [facility] | | [...] Team Providers + +------+ + | Care Ceramic Maker Demonstrator Name | Role | Phone | + +------+ + | Shakir Monzon DO | PCP | | + +------+ + Reason for Visit +--------+ + | Reason | Comments | +--------+ + | Other | medical records | +--------+ + Encounter Details +--------+ + + + + | Date | Type | Department | Care Team | Description | +--------+ + + + + | 10/05/ | Telephone | [facility] | Donell Hunt MD | Other (medical | | 2017 | | GASTROENTEROLOGY | [address] | records) | | | | [address] [facility] | [place], [place] | | | | | [address] [place] | [address] | | | | | [address] | [phone] | | | | | [phone] | | | +--------+ + + + [...] [place] | | | | | | [address] | | | | | | | | +--------+---------+ + + + documented as of this encounter Visit Diagnoses Not on filedocumented in this encounter"
--- OUTSIDE RECORDS SUMMARY | ~2019-01-07 | XMS | Encounter Summary ---
Demographics + + + | Address | [address] | | | [place] [address] | + + + | Home Phone [...] Author | [facility] | + + + | Organization | [facility] [employer] [facility] | + + + | Address | Unknown | + + + | Phone | Unavailable | + + + Support + + +---------+ + | Name | Relationship | Address | Phone | + + +---------+ + | Mary Medellin | ECON | Unknown | | + + +---------+ + Care Team Providers + +------+ + | Care Gold Charmer Name | Role | Phone | + +------+ + | Shakir Monzon MD | PCP | | + +------+ + Encounter Details +--------+ + + + + | Date | Type | Department | Care Team | Description | +--------+ + + + + | 05/14/ | Abstract | Cardiology General | Unknown . | | | 2018 | | at [facility] [address] | | | | | | [address] Mailcode: | | | | | | [address] | | | | | | Health and Healing, | | | | | | Building | | | | | | floor [place], [place] | | | | | | [address] | | | | | | [phone] | | | +--------+ + + + [...]
--- OUTSIDE RECORDS SUMMARY | ~2019-01-07 | XMS | Encounter Summary ---
Demographics + + + | Address | [address] | | | [place] [address] | + + + | Home Phone | | + + + | Preferred Language | Unknown | + + + | Marital Status | Single | + + + | Scientology Affiliation | NRP | + + + | Race | or | + + + | Ethnic Group | Not or | + + + Author + + + | Author | [facility] | + + + | Organization | [facility] | + + + | Address | Unknown | + + + | Phone | Unavailable | + + + Support + + +---------+ + | Name | Relationship | Address | Phone | + + +---------+ + | Mary Medellin | ECON | Unknown | | + + +---------+ + Care Team Providers + +------+ + | Care Chip Frier Name | Role | Phone | + +------+ + | Shakir Monzon MD | PCP | | + +------+ + Encounter Details +--------+ + + + + | Date | Type | Department | Care Team | Description | +--------+ + + + + | 09/10/ | Procedure | Diagnostic Imaging | | | | 2018 | Pass | Services at [facility] | | | | | | [address] | | | | | | [place] Mailcode: | | | | | | [address] | | | | | | [facility] | | | | | | [place], [place] | | | | | | [address] | | | | | | [phone] | | | +--------+ + + + [...]
--- OUTSIDE RECORDS SUMMARY | ~2019-01-07 | XMS | Encounter Summary ---
Demographics + + + | Address | [address] | | | [place] [address] | + + + | Home Phone [...] Count Includes [facility] [employer] [facility] | + + + | Organization | Count Includes [facility] Systems [employer] [facility] | + + + | Address | Unknown | + + + | Phone | Unavailable | + + + Support + + +---------+ + | Name | Relationship | Address | Phone | + + +---------+ + | Mary Medellin | ECON | Unknown | | + + +---------+ + Care Team Providers + +------+ + | Care Ham Curer Name | Role | Phone | + [...] | | | | | | [place] [address] | | | +--------+--------+ + + + [...]
--- OUTSIDE RECORDS SUMMARY | ~2019-01-07 | XMS | Encounter Summary ---
Demographics + + + | Address | [address] | | | [place] [address] | + + + | Home Phone | | + + + | Preferred Language | Unknown | + + + | Marital Status | Single | + + + | Lutheran Affiliation | NRP | + + + | Race | or | + + + | Ethnic Group | Not or | + + + Author + + + | Author | [facility] | + + + | Organization | [facility] [facility] | + + + | Address | Unknown | + + + | Phone | Unavailable | + + + Support + + +---------+ + | Name | Relationship | Address | Phone | + + +---------+ + | Mary Medellin | ECON | Unknown | | + + +---------+ + Care Team Providers + +------+ + | Care Communications Director Name | Role | Phone | + +------+ + | Shakir Monzon MD | PCP | | + +------+ + Encounter Details +--------+ + + + + | Date | Type | Department | Care Team | Description | +--------+ + + + + | 04/28/ | Telephone | Digestive Health | Archana Saunders, | | | 2018 | | [facility] [address] | [address] | | | | | [address] | [place], [place] | | | | | Mailcode: [place] | [address] | | | | | for Health and | [phone] | | | | | [facility] 2 | | | | | | [place], [place] | | | | | | [address] | | | | | | [phone] | | | +--------+ + + + [...]
--- OUTSIDE RECORDS SUMMARY | ~2019-01-07 | XMS | Encounter Summary ---
Demographics + + + | Address | [address] | | | [place] [address] | + + + | Home Phone [...] + | Author | [facility] | + + + | Organization | [facility] | + + + | Address | Unknown | + + + | Phone | Unavailable | + + + Support + + +---------+ + | Name | Relationship | Address | Phone | + + +---------+ + | Mary Medellin | ECON | Unknown | | + + +---------+ + Care Team Providers + +------+ + | Care Safety Belt Installer Name | Role | Phone | + +------+ + | Shakir Monzon MD | PCP | | + +------+ + Reason for Visit + + + | Reason | Comments | + + + | Refill Request | IMDUR | + + + Encounter Details +--------+--------+ + + + | Date | Type | Department | Care Team | Description | +--------+--------+ + + + | 02/11/ | Refill | Cardiology General | Sharon Sanderson | Refill Request | | 2018 | | at [facility] [address] | [address] | (DUR) | | | | [address] Mailcode: | [address] [place], | | | | | [address] [address] | | | | | Health and Healing, | [phone] | | | | | [facility] | | | | | | floor [place], [place] | | | | | | [address] | | | | | | [phone] | | | +--------+--------+ + + + [...]
--- OUTSIDE RECORDS SUMMARY | ~2019-01-07 | XMS | Encounter Summary ---
Demographics + + + | Address | [address] | | | [place] [address] | + + + | Home Phone [...] + + | Author | [facility] [employer] [facility] | + + + | Organization | [facility] [employer] [facility] | + + + | Address | Unknown | + + + | Phone | Unavailable | + + + Support + + +---------+ + | Name | Relationship | Address | Phone | + + +---------+ + | Mary Medellin | ECON | Unknown | | + + +---------+ + Care Team Providers + +------+ + | Care Accountant Budget Name | Role | Phone | + [...] | | | | Mailcode: Center | [place], [place] | | | | | [facility] and | [address] | | | | | [facility], [facility] 2 | [phone] | | | | | [place], [place] | | | | | | [address] | | | | | | [phone] | | | +--------+ + + + [...]
--- OUTSIDE RECORDS SUMMARY | ~2019-01-07 | XMS | Encounter Summary ---
Demographics + + + | Address | [address] | | | [place] [address] | + + + | Home Phone [...] Author + + + | Author | [facility] | + + + | Organization | [facility] [employer] [facility] | + + + | Address | Unknown | + + + | Phone | Unavailable | + + + Support + + +---------+ + | Name | Relationship | Address | Phone | + + +---------+ + | Mary Medellin | ECON | Unknown | | + + +---------+ + Care Team Providers + +------+ + | Care Finance Intern Name | Role | Phone | [...] | | 2017 | | Center at [facility] [address] | PharmD [address] | management ([facility] | | | | [address] | [address] | Treatment) | | | | Mailcode: OC8D | [place], [place] | | | | | [facility] | [address] | | | | | and Healing, | | | | | | [address] | | | | | | [place], [place] | | | | | | [address] | | | | | | [phone] | | | +--------+ + + + [...]
--- OUTSIDE RECORDS SUMMARY | ~2019-01-07 | XMS | Encounter Summary ---
Demographics + + + | Address | [address] | | | [place] [address] | + + + | Home Phone | | + + + | Preferred Language | Unknown | + + + | Marital Status | Single | + + + | Baptist Affiliation | NRP | + + + | Race | or | + + + | Ethnic Group | Not or | + + + Author + + + | Author | [facility] | + + + | Organization | [facility] [employer] [facility] | + [...] Team Providers + +------+ + | Care Bobbin Marker Name | Role | Phone | [...] Lab Order | | 2017 | | [place] [facility] [address] | [address] | | | | | [address] | [address] | | | | | Mailcode: OC8D | [place], [place] | | | | | [facility] | [address] | | | | | and [place], | [phone] | | | | | [address] | | | | | | [place], [place] | | | | | | [address] | | | | | | [phone] | | | +--------+ + + + [...]
--- OUTSIDE RECORDS SUMMARY | ~2019-01-07 | XMS | Encounter Summary ---
Demographics + + + | Address | [address] | | | [place] [address] | + + + | Home Phone | | + + + | Preferred Language | Unknown | + + + | Marital Status | Single | + + + | Religion Affiliation | NRP | + + + | Race | or | + + + | Ethnic Group | Not or | + + + Author + + + | Author | [facility] [employer] [facility] | + + + | Organization | [facility] [employer] [facility] [...] Team Providers + +------+ + | Care Assistant Manager Name | Role | Phone | [...] | +--------+ + + + + | 01/28/ | Abstract | [facility] | [place], | Medical Records | | 2018 | | Center at [facility] [address] | [address] | Review | | | | [address] | [facility] | | | | | Mailcode: Center | [place], [place] | | | | | [facility] and | [address] | | | | | [facility], [facility] 2 | [phone] | | | | | [place], [place] | | | | | | [address] | | | | | | [phone] | | | +--------+ + + + [...]
--- OUTSIDE RECORDS SUMMARY | ~2019-01-07 | XMS | Encounter Summary ---
Demographics + + + | Address | [address] | | | [place] [address] | + + + | Home Phone | | + + + | Preferred Language | Unknown | + + + | Marital Status | Single | + + + | Jewish Affiliation | NRP | + + + | Race | or | + + + | Ethnic Group | Not or | + + + Author + + + | Author | [facility] | + + + | Organization | [facility] [employer] [facility] | [...] Providers + +------+ + | Care Manager Ecommerce Name | Role | Phone | + [...] | | | | Mailcode: Center | [place], [place] | | | | | [facility] and | [address] | | | | | [facility] 2 | [phone] | | | | | [place], [place] | | | | | | [address] | | | | | | [phone] | | | +--------+ + + + [...]
--- OUTSIDE RECORDS SUMMARY | ~2019-01-07 | XMS | Encounter Summary ---
Demographics + + + | Address | [address] | | | [place] [address] | + + + | Home Phone | | + + + | Preferred Language | Unknown | + + + | Marital Status | Single | + + + | Mormonism Affiliation | Unknown | + + + | Race | Unknown | + + + | Ethnic Group | Unknown | + + + Author + + + | Author | [facility] | | | and [place] | + + + | Organization | [facility] | | [...] Team Providers + +------+ + | Care Kitchen Porter Name | Role | Phone | [...] + + + + | 04/26/ | Hospital | [facility] | Flor Clement | Alcohol use | | 2018 - | Encounter | [facility] ICU [address] | MD Renetta [address] | disorder, moderate, | | | | [place], | [address] | in early remission | | 04/28/ | | [place] [address] | [place] [address] | (HCC); Chronic | | 2018 | | [phone] | [phone] | hepatitis C without | | | | | | hepatic coma (HCC); | | | | | | Cirrhosis of liver | | | | | | without ascites, | | | | | | unspecified hepatic | | | | | | cirrhosis type | | | | | | (HCC); Insulin | | | | | | dependent type 2 | | | | | | diabetes mellitus, | | | | | | uncontrolled (HCC); | | | | | | Thrombocytopenia | | | | | | (HCC); Acute | | | | | | cholecystitis; Gram | | | | | | negative sepsis | | | | | | ([facility]); | | | | | | Gastroesophageal | | | | | | reflux disease, | | | | | | esophagitis presence | | | | | | not specified; | | | | | | Stones common duct; | | | | | | Calculus of | | | | | | gallbladder with | | | | | | chronic | | | | | | cholecystitis | | | | | | without obstruction; | | | | | | Coronary artery | | | | | | disease involving | | | | | | pe[place] coronary | | | | | | artery of pe[place] | | | | | | heart without angina | | | | | | pectoris | +--------+ + + + + Social [...] might be different fro m the original. [place], [place] HOSPITALIST TRANSFER SUMMARY Pt. Name/Age/: Behzad Espinal JrSyeda 61 y.o. 1955 Date of Admission: 04/26/2017 [...] Surgical History: Procedure Laterality Date COLONOSCOPY 2012 [place] UPPER GASTROINTESTINAL ENDOSCOPY N/A 05/05/2016 Procedure: EGD; Surgeon: Donell Hunt MD; Location: [facility] UPPER GASTROINTESTINAL ENDOSCOPY N/A 07/27/2016 Procedure: EGD; Surgeon: Donell Hunt MD; Location: [facility] UPPER GASTROINTESTINAL ENDOSCOPY N/A 12/10/2016 Procedure: EGD; Surgeon: Donell Hunt MD; Location: [facility] FAMILY HISTORY: family history [...] Clement MD 550 mg at 0 04/28/17 0806 rosuvastatin (CRESTOR) tablet 10 mg 10 mg Oral Nightly Flor Clement MD 10 mg at 04/27/172004 dextrose 5% lactated ringers (D5 LR) infusion + additives 75 mL/hr at 04/28/17 0908 ALLERGIES: No Known Allergies HOSPITAL COURSE: Please refer to the H&P for full details and the most recent rounding rounding (progress) n ote. Active Hospital Problems Diagnosis Cholecystitis vs Choledocolithiasis MRCP done 14th postponed ERCP as needs Cardiac Cath, bilirubin [...] 0348 Gram negative sepsis + BC in [place] results yesterday no help yet RN to check daily until final results Hepatic cirrhosis, unspecified hepatic cirrhosis type Chronic hepatitis C without hepatic coma (followed at [facility] treated 4 months ago with un detectable [...] retention. Signature (dot meyaddendum tdnorefesh nownorefresh) (dot yvcaity) (dot malnutattest is attestation for malnutrition) Plan Cath today If Cath indicate not need intervention then can proceed with ERCP but if needs intervention might need to consider sending to [place] due to higher risk Addendum (04/28/2017 12:49) Cardiac cath circumflex culprit lesion is tortuous and might be able to manage medically bu t if needs intervention would be rotoblation. I spoke with Dr Sharma and consensus is to sent to tertiary center. I called [facility] no ERCP available until Wednesday and I called [facility] t they have waiting list but will call me back.I cancelled the CT to look for varices since we are in process of arranging transfer. Addendum (04/28/2017 16:03) [facility] no ERCP Doc till Wednesday [place] no bed [facility] will take him (I [...] Hematology and anemia Recent Labs Lab 04/28/17 03104/27/17 0123 04/26/17 1248 WBC 10.7 13.3* 9.9 HGB 11.2* 12.7* 11.6* HCT 33.6* 37.5* 33.8* PLT 88* 95* 86* NEUPCT -- 83.9* 78.6 MONPCT -- 8.8 10.7 Recent Labs Lab 04/26/17 1816 PROTIME 14.7* INR 1.15* No results for input(s): IRON, TIBC, PCTSAT, FERRITIN, TSH, [id number], FOLATE in the last 168 hours. Inflammatory [...] ABG No results for input(s): PHART, PO2ART, IHO4GKG, FMX9YIG, BEART, W6LEABZB in the last 168 h ours. No results for input(s): SPECSOURCE, PHPOCB, PCO2, PO2, HCO3, TCO2, BEART, LGOY5VFI in the last 168 hours. Drug of [...] STONE. COMPARISON: Multiple priors. PROTOCOL: Coronal T2 sql developer, axial T2 sql developer, coronal 3D respiratory triggered, coronal T2 thin [...] Procedure Component Value Units Date/Time Culture, MRSA [[id number]] Collected: 04/27/17 0222 Order Status: Canceled Lab Status: No result Specimen: Respiratory from Nares Culture, MRSA [[id number]] Collected: 04/27/17 0151 Order Status: Completed Lab Status: Final result Updated: 04/28/17 0705 Specimen: Respiratory from Nares Culture Negative for MRSA by chromogenic agar method PROCEDURES AND CONSULTS: Cardiac Cath Dr Zachary Pratt PENDING RESULTS: DISPOSITION AND TRANSFER INSTRUCTIONS: Condition: Patient being transferred with condition improved NPO for now Going to [facility] to Dr Mely Quiroga MD [facility] [phone] Triage pager [phone] (this is a shared pager and is carried 07/09 by a Hospitalist) Personal iPhone Email [email or web address] Greater than 30 minutes were spent on discharge and coordination of post-hospital care. Electronically signed by: Paul Quiroga MD, 04/28/2017 16:08 [facility] (dot meytime meycritical meycontact) Reference. This is [...] this chart may have been created with Letao voice recognition software. Occasi onal wrong-word or [...] might be different fro m the original. [place] HOSPITALIST PROGRESS NOTE Patient: Behzad Espinal Jr. : 1955: Age: 61 y.o. MedRec: [id number] PCP: Shakir Monzon DO Admission date: 04/26/2017 [...] (D5 1/2 NS) infusion Intravenous Continuous And michele Simeon MD 75 mL/hr at 04/28/17 0157 dextrose 50% [...] HS Flor Clement MD 1 Units at 04/27/17 203 ipratropium (ATROVENT) 500 mcg/2.5 mL nebulizer solution 500 mcg 500 mcg Nebulization RT Q6H PRN Paul Quiroga MD lactulose liquid 30 mL 30 mL Oral TID Flor Clement MD 30 mL at 04/26/172049 levoFLOXacin in dextrose (LEVAQUIN) IVPB 750 mg [...] for input(s): IRON, TIBC, PCTSAT, FERRITIN, TSH, [id number], FOLATE in the last 168 hours. Inflammatory [...] ABG No results for input(s): PHART, PO2ART, STO5WBW, GTF3KNK, BEART, G7KBNBVY in the last 168 h ours. No results for input(s): SPECSOURCE, PHPOCB, PCO2, PO2, HCO3, TCO2, BEART, XWNX9KPT in the last 168 hours. Drug of overdose and abuse No results for input(s): ALCOHOL, ACTMN, SALICYLATE in the last 168 hours. No results for input(s): AMPHEQUAL, BARBITURATE, BENZSCR, CANNIBSCR, AMPHETAMINE, METHADSCR , OPIATESCR in the last 168 hours. Urinalysis No results for input(s): GLUCOSEU, WBCUA, RBCUA, SQUAMEPIUA, BACTERIAUA, CULTIF in the last 168 hours. Point of care glucose Recent Labs Lab 04/27/17202604/27/17 1628 04/27/17 1131 04/27/17 0704 04/26/17 2054 04/26/17 1609 POCGLU 206* 191* 233* 256* 183* 205* Micro results more choices using dot micro, for reference below is dot [id number] URSR Microbiology Results (72 hrs) Procedure Component Value Units Date/Time Culture, MRSA [[id number]] Collected: 04/27/17 0151 Order Status: Completed Lab Status: Final result Updated: 04/28/17 0705 Specimen: Respiratory from Nares Culture Negative for [...] ONE. COMPARISON: Multiple priors. PROTOCOL: Coronal T2 sql developer, axial T2 sql developer, coronal 3D res piratory triggered, coronal T2 [...] L/min (dot meyvent) Subjective CC Tfer from [place] for Chest and Abd pain with U/S [...] 0348 Gram negative sepsis + BC in [place] results yesterday no help yet RN to check daily until final results Hepatic cirrhosis, unspecified hepatic cirrhosis type Chronic hepatitis C without hepatic coma (followed at [facility] treated 4 months ago with un detectable [...] respiratory collapse suggesting fluid retention. Signature (emili lozano) (emili jimenez) (emili bolden is attestation for malnutrition) Plan Cath today If Cath indicate not need intervention then can proceed with ERCP but if needs intervention might need to consider sending to [place] due to higher risk Addendum (04/28/2017 12:49) Cardiac cath circumflex culprit lesion is tortuous and might be able to manage medically bu t if needs intervention would be rotoblation. I spoke with Dr Sharma and consensus is to sent to tertiary center. I called [facility] no ERCP available until Wednesday and I called [facility] t they have waiting list but will call me back.I cancelled the CT to look for varices since we are in process of arranging transfer. Addendum (04/28/2017 16:03) [facility] no ERCP Doc till Wednesday [place] [facility] bed [facility] take [facility] (I [...] meycritical meysign) Paul Quiroga MD 04/28/2017 8:03 [facility] Reference. This is NOT part of [...] this chart may have been created with Letao voice recognition software. Occasi onal wrong-word or sound-alike substitutions may have occurred due to the inherent haas itations of voice recognition software. Please read the chart carefully and recognize, using context, where these substitutions have occurred adea Sharlene Berkley, [facility] - 04/27/2017 8:05 PM PDT [...] list or bottles X Pharmacy list names: [facility] X Outside Information Vaccines up to [...] Prior to Admission Sig: Patient taking differently LACE FINISHER as: Metformin 1000 mg tab 1 tab by mouth twice daily before meals Patient discontinued use of o wn accord about 2 weeks ago due to some reading he found on the internet. Best possible LACE FINISHER medication list after pharmacy review: @[email or web address]@ Medication review performed and electronically signed by Ana Laura Coelho, Development Spec 19:[facility]/27/2017 20:05 eyer, Paul Culver MD - 04/27/2017 8:39 AM PDT [place] HOSPITALIST PROGRESS NOTE Patient: Behzad Espinal Jr. : 1955: Age: 61 y.o. MedRec: [id number] PCP: Shakir Monzon DO Admission date: 04/26/2017 [...] Flor Clement MD 30 mL at 04/26/17 2050 levoFLOXacin in dextrose (LEVAQUIN) IVPB 750 mg [...] Flor Clement MD 10 mg at 04/26/17 2050 sodium chloride 0.9% (NS) infusion Intravenous Continuous [...] for input(s): IRON, TIBC, PCTSAT, FERRITIN, TSH, SRUUCNIV06, FOLATE in the last 168 hours. Inflammatory [...] ABG No results for input(s): PHART, PO2ART, HAU6IIW, BNK0JPP, BEART, U9YBXJUP in the last 168 h ours. No results for input(s): SPECSOURCE, PHPOCB, PCO2, PO2, HCO3, TCO2, BEART, JXFR2JCB in the last 168 hours. Drug of [...] dot micro, for reference below is dot [id number] URSR Microbiology Results (72 hrs) Procedure Component Value Units Date/Time Culture, MRSA [[id number]] Collected: 04/27/17 0151 Order Status: Sent Lab Status: In process Updated: 04/27/17218 Specimen: Respiratory from Nares Radiology results (more choices using dot risresults) Mri Mrcp Liver Wo Contrast Result Date: 04/26/2017 MRI MRCP LIVER WO CONTRAST 04/26/2017 12:17 PM HISTORY:?BILIARY OBSTRUCTION, RULE OUT CBD ST ONE. COMPARISON: Multiple priors. 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 [...] meycritical meysign) Paul Quiroga MD 04/27/2017 8:40 [facility] Reference. This is NOT part of [...] this chart may have been created with Letao voice recognition software. Occasi onal wrong-word or [...] [place] | | | | | | [address] | | | | | | | [...] | + +--------+ + + + | PROCEDURE NOT | | 04/27/2017 | Acute | | | PERFORMED | | 11:30 PM | cholecystitis | | | | | PDT | | | + +--------+ + + [...] | + + + + + | [facility] | [address] | [place] | [phone] | | [facility] | | [address] | | | - LABORATORY | | [...] : 1955MED[birth year] | | | RECORD NUMBER: [id number] OF PROCEDURE: 04/28/2017 | | | | | | PRIMARY CARE PROVIDER: Shakir Monzon | | | NAJMA TIE MAN: Bright Triana MD. PRE-PROCEDURE DIAGNOSIS: | | [...] | | | conclusions. Bright Triana MD [facility] | | | CenterDATE/TIME: 04/28/2017 11: [...] | | |Bright Triana MD | | |[facility] | | |DATE/TIME: 04/28/2017 11:27 | [...] | | | | M/uL | [facility] | | | | [...] [facility] | | | | | | [facility] | | | | | | MEDICAL [...] [address] | [place] | [phone] | | [facility] | | [address] | | | - LABORATORY | | [...] 11 | 7 - 18 mg/dL | [facility] | | | | | | [facility] | | | | | | MEDICAL | | | | | | CENTER - | | | | | | LABORATORY | | + + + + + + | Creatinine | 0.91 | 0.60 - 1.30 | [facility] | | | | | mg/dL | [facility] | | | | | | MEDICAL | | | | | | CENTER - | | | | | | LABORATORY | | + + + + + + | eGFR if not | >60Comment: GLOMERULAR | >=60 | [facility] | | | | FILTRATION | mL/min/1.73m2 | [facility] | | | ESTONIAN | RATE,ESTIMATED | | MEDICAL | | | | mL/min/1.28a4Quno than | | CENTER - | | [...] | | | | mg/dL | [facility] | | | | [...] [address] | [place] | [phone] | | [facility] | | [address] | | | - LABORATORY | | [...] | | | | | | [employer] | | | | | [...] ST. | [address] | [place] | [phone] | | [facility] | | [address] | | | - LABORATORY | | [...] | | | | | | [employer] | | | | | [...] [address] | [place] | [phone] | | [facility] | | [address] | | | - LABORATORY | | [...] | Harjit, Rad Results In - 04/27/2017 10:45 PM PDT [...] + | [facility] | [address] | [place] | [phone] | | [facility] | | [address] | | | - LABORATORY | | [...] | | POC | | | [facility] | | [...] ST. | [address] | [place], [place] | [phone] | | [facility] | | [address] | | | - LABORATORY | | [...] | | | | | | [employer] | | | | | [...] [address] | [place] | [phone] | | [facility] | | [address] | | | - LABORATORY | | [...] 454 JR. | | | Patient Number [id number] Date of Study | | | 04/27/2017 Visit Number [id number] Accession | | | [id number] Referring Physician LEATHA IVY Number | | | Date of 1955 Front Office Developer | | | Ted Blake Age 61 year(s) | | | Interpreting MONICA LUNA | | | Order Builder Loader CHERYL ANDERSON, | | | | | | Gender Male Nurse | | | Stress Consignee | | | Procedure Type of Study [...] Volume: 84.98 ml | | | EF Elhkkyipp73% Left Ventricle Diastolic | | | Dimension: [...] Volume: 84.98 ml | | | EF Hcwpgigik03% | | | | | | Left [...] Room Number 454 | | Patient Number [id number] Date of Study 04/27/2017 Visit Number | | [id number] Referring Physician LEATHA IVY | | Number Date of 1955 Front Office Developer Ted Lozano Age | | 61 year(s) Interpreting MONICA LUNA | | Order Builder Loader CHERYL ANDERSON, | | Gender Male Nurse [...] LA Volume: | | 84.98 ml EF Ahzibgwqa92% Left Ventricle | | Diastolic Dimension: 5.83 [...] LA Volume: 84.98 ml | | EF Gbykrtjrm72% | | | | Left Ventricle | [...] [address] | [place] | [phone] | | [facility] | | [address] | | | - LABORATORY | | [...] | + + + + + | [facility] | [address] | [place] | [phone] | | [facility] | | [address] | | | - LABORATORY | | [...] 9 | 7 - 18 mg/dL | [facility] | | | | | | [facility] | | | | | | MEDICAL | | | | | | CENTER - | | | | | | LABORATORY | | + + + + + + | Creatinine | 0.84 | 0.60 - 1.30 | [facility] | | | | | mg/dL | [facility] | | | | | | MEDICAL | | | | | | CENTER - | | | | | | LABORATORY | | + + + + + + | eGFR if not | >60Comment: GLOMERULAR | >=60 | [facility] | | | | FILTRATION | mL/min/1.73m2 | [facility] | | | ESTONIAN | RATE,ESTIMATED | | MEDICAL | | | | mL/min/1.58t6Qmws than | | CENTER - | | [...] | | bulin Ratio | | | [facility] | | [...] ST. | [address] | [place] | [phone] | | [facility] | | [address] | | | - LABORATORY | | [...] | | | | | | [employer] | | | | | [...] + + | Performing | Address | City/State[facility] | Phone Number | | Organization | | | | + + + + + | [facility] | [address] | [place] | [phone] | | [facility] | | [address] | | | - LABORATORY | | [...] | | POC | | | [facility] | | [...] [address] | [place] | [phone] | | [facility] | | [address] | | | - LABORATORY | | [...] | | | | ROXANNA RUEDA MD ([id number]) | | | | | | on [...] | | chromogenic agar method | | [facility] | | | [...] [address] | [place] | [phone] | | [facility] | | [address] | | | - LABORATORY | | [...] | | | | | | [employer] | | | | | [...] + | [facility] | [address] | [place] | [phone] | | [facility] | | [address] | | | - LABORATORY | | | | + + + + + Magnesium (04/27/2017 1:23 AM PDT) + +---------+ + + + | Component | Value | Ref Range | Performed | Pathologist | | | | | At | Signature | + +---------+ + + + | Magnesium | 1.7 (L) | 1.8 - 2.5 mg/dL | [facility] | | | | | | ST. [...] [address] | [place] | [phone] | | [facility] | | [address] | | | - LABORATORY | | [...] (H) | 4.0 - 11.0 K/uL | [facility] [...] | Monocytes | | K/uL | [facility] | | | | | | MEDICAL | | | | | | CENTER - | | | | | | LABORATORY | | + + + + + + | Absolute | 0.10 | 0.00 - 0.40 | [facility] | | | Eosinophils | | K/uL | [facility] | | | | | | MEDICAL | | | | | | CENTER - | | | | | | LABORATORY | | + + + + + + | Absolute | 0.10 | 0.00 - 0.10 | [facility] | | | Basophils | | K/uL | [facility] | | | | [...] [address] | [place] | [phone] | | [facility] | | [address] | | | - LABORATORY | | [...] | | | | | mg/dL | [facility] | | | | | | MEDICAL | | | | | | CENTER - | | | | | | LABORATORY | | + + + + + + | eGFR if not | >60Comment: GLOMERULAR | >=60 | [facility] | | | | FILTRATION | mL/min/1.73m2 | [facility] | | | ESTONIAN | RATE,ESTIMATED | | MEDICAL | | | | mL/min/1.23o9Gnkd than | | CENTER - | | [...] | | | | | mg/dL | [facility] | | | | | [...] | an appended report. | | [facility] | | | | These results have [...] | appended report. These | | [facility] | | | | results have been [...] | appended report. These | | [facility] | | | | results have been [...] | appended report. These | | [facility] | | | | results have been [...] | [address] | [place] | [phone] | | [facility] | | [address] | | | - LABORATORY | | [...] [address] | [place] | [phone] | | [facility] | | [address] | | | - LABORATORY | | [...] | Time | | seconds | [facility] | | | | | | MEDICAL | | | | | | CENTER - | | | | | | LABORATORY | | + + + + + + | INR | 1.15 (H)Comment: Usual | 0.90 - 1.10 | [facility] | | | | Oral Anticoagulation | | [facility] | | | | Range: 2.0 - [...] [address] | [place] | [phone] | | [facility] | | [address] | | | - LABORATORY | | [...] | + + + + + | [facility] | [address] | [place] | [phone] | | [facility] | | [address] | | | - LABORATORY | | [...] | | POC | | | [facility] | | [...] + | [facility] | [address] | [place] | [phone] | | [facility] | | [address] | | | - LABORATORY | | | | + + + + + CBC with Differential (04/26/2017 12:48 PM PDT) + + + + + + | Component | Value | Ref Range | Performed | Pathologist | | | | | At | Signature | + + + + + + | WBC | 9.9 | 4.0 - 11.0 K/uL | [facility] | | | | | | [facility] | | | | | | MEDICAL | | | | | | CENTER - | | | | | | LABORATORY | | + + + + + + | RBC | 3.54 (L) | 4.30 - 5.70 | [facility] | | | | | M/uL | [facility] | | | | [...] | | | | | | [facility] | | | | | | MEDICAL [...] | Neutrophils | | K/uL | [facility] | | | | | | MEDICAL | | | | | | CENTER - | | | | | | LABORATORY | | + + + + + + | Absolute | 0.90 | 0.60 - 3.20 | [facility] | | | Lymphocytes | | K/uL | [facility] | | | | | | MEDICAL | | | | | | CENTER - | | | | | | LABORATORY | | + + + + + + | Absolute | 1.10 (H) | 0.00 - 1.00 | [facility] | | | Monocytes | | K/uL | [facility] | | | | | | MEDICAL | | | | | | CENTER - | | | | | | LABORATORY | | + + + + + + | Absolute | 0.10 | 0.00 - 0.40 | [facility] | | | Eosinophils | | K/uL | [facility] | | | | | | MEDICAL | | | | | | CENTER - | | | | | | LABORATORY | | + + + + + + | Absolute | 0.10 | 0.00 - 0.10 | [facility] | | | Basophils | | K/uL | [facility] | | | | [...] + | [facility] | [address] | [place] | [phone] | | [facility] | | [address] | | | - LABORATORY | | [...] | | | | mmol/L | [facility] | | | | | | MEDICAL [...] | | | | | mg/dL | [facility] | | | | | | MEDICAL | | | | | | CENTER - | | | | | | LABORATORY | | + + + + + + | eGFR if not | >60Comment: GLOMERULAR | >=60 | [facility] | | | | FILTRATION | mL/min/1.73m2 | [facility] | | | ESTONIAN | RATE,ESTIMATED | | MEDICAL | | | | mL/min/1.56t0Wmuc than | | CENTER - | | [...] (L) | 3.2 - 5.0 g/dL | [facility] | | | | | | ST. [...] | | ine Ratio | | | [facility] | | [...] [address] | [place] | [phone] | | [facility] | | [address] | | | - LABORATORY | | [...] ST. | [address] | [place] | [phone] | | [facility] | | [address] | | | - LABORATORY | | [...] priors. | | | PROTOCOL: Coronal T2 sql developer, axial T2 sql developer, coronal 3D respiratory | | | triggered, [...] STONE.COMPARISON: Multiple | | priors.PROTOCOL: Coronal T2 sql developer, axial T2 sql developer, coronal 3D respiratory | | triggered,coronal T2 [...] | | | | ROXANNA RUEDA MD ([id number]) | | | | | | on [...] + | Diagnosis | + + | Cholecystitis - Primary Cholecystitis, unspecified | + + | Alcohol use disorder, moderate, in early remission (HCC) | + + | Chronic hepatitis C without hepatic coma (HCC) | + + | Cirrhosis of liver without ascites, unspecified hepatic cirrhosis type (HCC) | + + | Insulin dependent type 2 diabetes mellitus, uncontrolled (HCC) Type II or unspecified | | type diabetes mellitus without mention of complication, uncontrolled | + + | Thrombocytopenia (HCC) Thrombocytopenia, unspecified | + + | Acute cholecystitis | + + | Gram negative sepsis ([facility]) Septicemia due to gram-negative organism, unspecified | + + | Gastroesophageal reflux disease, esophagitis presence not specified | + + | Stones common duct Calculus of bile duct without mention of cholecystitis or | | obstruction | + + | Calculus of gallbladder with chronic cholecystitis without obstruction Calculus of | | gallbladder with other cholecystitis, without mention of obstruction | + + | 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 | | angina pectoris | + + documented in this encounter [...] | | +---+---+ + +-------+ +-------+---+---+ | aspirin chewable tablet 81 mg | Given | 04/28/19 | 81 mg | | | | 81 mg, Oral, ONCE, 04/27/17 at | | 18 4:42 | | | | | 1645, For 1 dose | | PM PDT | | | | + +-------+ +-------+---+---+ +---+---+ | | | +---+---+ + +---------+ +-----+-------+---+ | cefepime (MAXIPIME) 2 g in | New Bag | 04/29/19 | 2 g | 100 | | | sodium chloride 0.9% 50 mL IVPB | | 18 4:07 | | mL/hr | | | 2 g, Intravenous, Administer over | | PM PDT | | | | | 30 Minutes, ONCE, 04/28/17 at | | | | | | | 1615, For 1 dose, Activate | | | | | | | system and mix before use., | | | | | | | Indications: Bacteremia | | | | | | + +---------+ +-----+-------+---+ +---+---+ | | | +---+---+ + +-------+ [...] + +---------+ +---+ +---+ | dextrose 5% and sodium chloride | New Bag | 04/29/19 | | 75 mL/hr | | | 0.45% (D5 1/2 NS) infusion at | | 18 1:57 | | | | | 75 mL/hr, Intravenous, | | AM PDT | | | | | CONTINUOUS, Starting 04/28/17 | | | | | | | at 0215 | | | | | | + +---------+ +---+ +---+ +---+---+ | | | +---+---+ + +---------+ +---+ +---+ | dextrose 5% and sodium chloride | New Bag | 04/28/19 | | 75 mL/hr | | | 0.45% with KCl 20 mEq/L (D5 1/ | | 18 4:58 | | | | | NS + KCL 20) infusion at 75 | | PM PDT | | | | | mL/hr, Intravenous, CONTINUOUS, | | | | | | | Starting 04/27/17 at 1645 | | | | | | + +---------+ +---+ +---+ +---+---+ | | | +---+---+ + +---------+ [...] | + +---+ + +-------+ +--------+---+---+ | guaiFENesin (ROBITUSSIN) 100 [...] | | | | | NPO, Daytime 5452-8676 Use NIGHT | | | | | | | DOSE for doses scheduled: | | | | | | | HS, 3AM, Nighttime [id number], | | | | | | + [...] + +---+---+ | | | +---+---+ + + + +---------+---+---+ | ipratropium (ATROVENT) 500 | Given by | 04/28/19 | 500 mcg | | | | mcg/2.5 mL nebulizer solution 500 | Other | 18 11:44 | | | | | mcg 500 mcg, Nebulization, RT | | PM PDT | | | | | Once, 04/27/17 at 2130, For 1 | | | | | | | dose, RT will administer., | | | | | | + + + +---------+---+---+ + +---+ | | | + +---+ [...] 8:06 | | | | | on 04/26/17 at 1400, Goal is | | AM PDT | | | | | 3-4 BMs daily, hold if > 4 BMs/ | | | | | | | [...] | | | | | | from [facility] as he may have | | | [...] PDT | | | | +---------+ +--------+-------+---+ + +---+ | | | + +---+ | LORazepam (ATIVAN) 2 mg/mL | | | injection Starting Wed04/27/17 | | | at 0045, For 1 dose, SELAM, | | | ADRIENNE: chano van, | | + +---+ | | | + +---+ + +-------+ +------+---+---+ | LORazepam (ATIVAN) injection | Given | 04/27/19 | 1 mg | | | | 0.5-4 mg 0.5-4 mg, Intravenous, | | 18 12:45 | | | | | PRN, Withdrawal Symptoms, CIWA | | PM PDT | | | | | PROTOCOL, Starting Tu04/27/17 at | | | | | | | 0047, CIWA <10: No Dose - | | | | | | | Reassess at least Q4h CIWA 10-15: | | | | | | | 1mg - Reassess in 2hr CIWA | | | | | | | 16-20: 2mg - Reassess in 1hr CIWA | | | | | | | 21-25: 3mg - Reassess in 1hr | | | | | | | CIWA >25 - 4mg - Reassess in | | | | | | | 30min If both PO and IV options | | | | | | | are available, always use PO | | | | | | | first if tolerating PO and | | | | | | | patient safe to swallow. Do NOT | | | | | | | administer both PO and IV dosing | | | | | | | at the same time. , | | | | | | + +-------+ +------+---+---+ +---+---+ | | | +---+---+ + +---------+ +-----+ +---+ | magnesium sulfate 2 g/50 mL | New Bag | 04/28/19 | 2 g | 25 mL/hr | | | IVPB 2 g 2 g, Intravenous, | | 18 10:13 | | | | | Administer over 120 Minutes, | | AM PDT | | | | | ONCE, 04/27/17 at 0945, For 1 | | | | | | | dose, Infuse over 2 hours., | | | | | | + +---------+ +-----+ +---+ + +---+ | | | + +---+ | metoprolol tartrate (LOPRESSOR) | | | 1 mg/mL injection Starting Tue | | | 04/27/17 at 0058, For 1 dose, | | | ADRIENNE DOSS: chano | | | override, | | + +---+ | | | + +---+ + +-------+ +------+---+---+ | metoprolol tartrate (LOPRESSOR) | Given | 04/28/19 | 5 mg | | | | injection 5 mg 5 mg, | | 18 2:00 | | | | | Intravenous, ONCE, Wed04/27/17 at | | AM PDT | | | | | 0130, For 1 dose | | | | | | + +-------+ +------+---+---+ +---+---+ | | | +---+---+ + +-------+ +------+---+---+ | metoprolol tartrate (LOPRESSOR) | Given | 04/28/19 | 5 mg | | | | injection 5 mg 5 mg, | | 18 3:45 | | | | | Intravenous, EVERY 5 MIN PRN, | | AM PDT | | | | | Pulse > 100, Starting Wed04/27/17 | | | | | | [...] | | TIMES DAILY, First dose on e | | AM PDT | | | [...] metroNIDAZOLE in saline | New Bag | 04/28/19 | 500 mg | 100 | | | (FLAGYL) IVPB 500 mg 500 mg, | | 18 5:27 | | mL/hr | | | Intravenous, Administer over 1 | | AM PDT | | | | | Hours, EVERY 8 HOURS (3 times per | | | | | | | day), First dose on 04/26/17 | | | | | | | at 1400, Do not refrigerate., | | | | | | | Indications: Biliary Tract | | | | | | | Infection | | | | | | + +---------+ +--------+-------+---+ +---------+ +--------+-------+---+ | New Bag | 04/27/19 | 500 mg | 100 | | | | 18 9:50 | | mL/hr | | | | PM PDT | | | | +---------+ +--------+-------+---+ | New Bag | 04/27/19 | 500 mg | 100 | | | | 18 4:03 | | mL/hr | | | | PM PDT | | | | +---------+ +--------+-------+---+ +---+---+ | | | +---+---+ + +---------+ [...] PDT | | | | +---------+ +--------+-------+---+ + +---+ | | | + +---+ [...] +---+ | | | + +---+ + +---------+ +--------+-------+---+ | potassium chloride 40 mEq in | New Bag | 04/28/19 | 40 mEq | 130 | | | sodium chloride 0.45% 500 mL IVPB | | 18 2:38 | | mL/hr | | | 40 mEq, Intravenous, Administer | | AM PDT | | | | | over 4 Hours, ONCE, 04/27/17 | | | | | | | at 0130, For 1 dose | | | | | | + +---------+ +--------+-------+---+ +---+---+ | | | +---+---+ + +-------+ +--------+---+---+ | rifAXIMin (XIFAXAN) tablet 550 | Given | 04/29/19 | [...] | | | | First dose on 04/26/17 at 2100 | | PM PDT | | | | + +-------+ +-------+---+---+ +-------+ +-------+---+---+ | Given | 04/27/19 | 10 mg | | | | | 18 8:50 | | | | | | PM PDT | | | | +-------+ +-------+---+---+ +---+---+ | | | +---+---+ + +---------+ +--------+-------+---+ | sodium chloride 0.9% (NS) bolus | New Bag | 04/28/19 | 1,000 | 2000 | | | 1,000 mL 1,000 mL, Intravenous, | | 18 2:57 | mLs | mL/hr | | | Administer over 15-30 Minutes, | | AM PDT | | | | | ONCE, 04/27/17 at 0300, For 1 | | | | | | | dose | | | | | | + +---------+ +--------+-------+---+ +---+---+ | | | +---+---+ + +---------+ +---------+--------+---+ | sodium chloride 0.9% (NS) bolus | New Bag | 04/29/19 | 500 mLs | 166.7 | | | 500 mL 500 mL, Intravenous, | | 18 12:14 | | mL/hr | | | Administer over 3 Hours, ONCE, | | PM PDT | | | | | 04/28/17 at 1230, For 1 dose | | | | | | + +---------+ +---------+--------+---+ +---+---+ | | | +---+---+ + + + +---------+-------+---+ | sodium chloride 0.9% (NS) | Rate/Dos | 04/28/19 | 150 mLs | 150 | | | infusion at 150 mL/hr, | e Change | 18 7:09 | | mL/hr | | | Intravenous, CONTINUOUS, Starting | | AM PDT | | | | | 04/26/17 at 1120 | | | | | | + + + +---------+-------+---+ + + +---+-------+---+ | Rate/Dose Change | 04/28/19 | | 150 | | | | 18 2:41 | | mL/hr | | | | AM PDT | | | | + + +---+-------+---+ | New Bag | 04/28/19 | | 100 | | | | 18 2:21 | | mL/hr | | | | AM PDT | | | | + + +---+-------+---+ +---+---+ | | | +---+---+ documented in this encounter
--- OUTSIDE RECORDS SUMMARY | ~2019-01-07 | XMS | Encounter Summary ---
Demographics + + + | Address | [address] | | | [place] [address] | + + + | Home Phone | | + + + | Preferred Language | Unknown | + + + | Marital Status | Single | + + + | Congregation Affiliation | Unknown | + + + [...] Team Providers + +------+ + | Care Dairy Inspector Name | Role | Phone | + +------+ + | Shakir Monzon DO | PCP | | + +------+ + Encounter Details +--------+ + + + + | Date | Type | Department | Care Team | Description | +--------+ + + + + | 07/07/ | Episode | [facility] | Brandi Serrano, | | | 2016 | Changes | GASTROENTEROLOGY | RN | | | | | [address] [place] | | | | | | [address] | | | | | | [address] | | | | | | [phone] | | | +--------+ + + + [...] | | | | | [place] | | | | | | [address] | | | | | | | | +--------+---------+ + + + documented as of this encounter Visit Diagnoses Not on filedocumented in this encounter"
--- OUTSIDE RECORDS SUMMARY | ~2019-01-07 | XMS | Encounter Summary ---
Demographics + + + | Address | [address] | | | [place] [address] | + + + | Home Phone | | + + + | Preferred Language | Unknown | + + + | Marital Status | Single | + + + | Faith Affiliation | Unknown | + + + | Race | Unknown | + + + | Ethnic Group | Unknown | + + + Author + + + | Author | [facility] | | | and [place] | + + + | Organization | [facility] | | [...] Team Providers + +------+ + | Care Benefit Specialist Name | Role | Phone | [...] | Specialty | Gastroenterol | Diagnoses | [facility] | [facility] | | Services | ogy | Cirrhosis | MD Donell | [facility]PITAL | | | Required | | of liver | [address] | [address] | | | | | without | [address] | [place] | | | | | ascites, | [facility] | [place], [place] | | | | | unspecified | [address] | [address] | | | | | hepatic | Phone: | Phone: | | | | | cirrhosis | [phone] | [phone] | | | | | type (HCC) | Fax: | Fax: | | | | | Procedures | [phone] | [phone] | | | | | US, | | | | | | | ABDOM,B-SCAN | | | | | | | &/OR REAL | | | | | | | TIME,COMPLET | | | | | | | E 01/14> | | | | | | | PEND DOS TO | | | | | | | SUBMIT YH | | | | | | | AUTH | | | +--------+ + + + + + Encounter Details +--------+ + + + + | Date | Type | Department | Care Team | Description | +--------+ + + + + | 01/03/ | Orders Only | [facility] | Donell Hunt MD | Cirrhosis of liver | | 2018 | | GASTROENTEROLOGY | [address] | without ascites, | | | | [address] [facility] | [place], [place] | unspecified hepatic | | | | [address] [place], [place] | [address] | cirrhosis type (HCC) | | | | [address] | [phone] | (Primary Dx) | | | | [phone] | | | +--------+ + + + [...] + documented as of this encounter Progress Brandi Sinha RN - 01/03/2018 10:07 AM PSTChart consult note routed to Dr. [address] at [facility] for clearance to proceed with gallbladder surgery; referral for abdominal US ente red and will order and fax to [facility] once approved per patient request; AFP ordered a nd will fax to [facility]; recall placed for EGD prop in Mar-April [address] Hunt. documented in this enc ounter Plan of Treatment +--------+---------+ + + + | Date | Type | Specialty | Care Team | Description | +--------+---------+ + + + | 04/06/ | Office | Cardiology | Lakisha Kahn DO | | | 2019 | Visit | | [address] | | | | | | [place] [facility] [place] | | | | | | [address] | | | | | | | | +--------+---------+ + + + + +------+--------+ + + | Name | Type | Priori | Associated Diagnoses | Order Schedule | | | | ty | | | + +------+--------+ + + | Alpha Fetoprotein, | Lab | Routin | Cirrhosis of liver | Expected: 01/03/2018 | | Tumor Marker | | e | without ascites, | (Approximate), | | | | | unspecified hepatic | Expires: 07/03/2018 | | | | | cirrhosis type (HCC) | | + +------+--------+ + + + + +--------+ + + | Name | Type | Priori | Associated Diagnoses | Order Schedule | | | | ty | | | + + +--------+ + + | Referral ABDOMINAL | Outpatient | Routin | Cirrhosis of liver | Expected: 01/03/2018 | | US | Referral | e | without ascites, | (Approximate), | | | | | unspecified hepatic | Expires: 07/03/2018 | | | | | cirrhosis type (HCC) | | + + +--------+ + + documented as of this encounter Visit Diagnoses + + | Diagnosis | + + | Cirrhosis of liver without ascites, unspecified hepatic cirrhosis type (HCC) - Primary | + + documented in this encounter"
--- OUTSIDE RECORDS SUMMARY | ~2019-01-07 | XMS | Encounter Summary ---
Demographics + + + | Address | [address] | | | [place] [address] | + + + | Home Phone [...] + + | Author | [facility] | + + + | Organization | [facility] | + + + | Address | Unknown | + + + | Phone | Unavailable | + + + Support + + +---------+ + | Name | Relationship | Address | Phone | + + +---------+ + | Mary Medellin | ECON | Unknown | | + + +---------+ + Care Team Providers + +------+ + | Care Drafter Assistant Name | Role | Phone | [...] + + + + | 05/10/ | Abstract | [facility] | Bessy Solano, | Medical Records | | 2018 | | Center at [facility] [address] | PA-C [address] | Review | | | | [place] [address] | [facility] | | | | | Mailcode: OC8D | [place], [place] | | | | | [facility] | [address] | | | | | and Healing, | [phone] | | | | | [address] | | | | | | [place], [place] | | | | | | [address] | | | | | | [phone] | | | +--------+ + + + [...]
--- OUTSIDE RECORDS SUMMARY | ~2019-01-07 | XMS | Encounter Summary ---
Demographics + + + | Address | [address] | | | [place] [address] | + + + | Home Phone | | + + + | Preferred Language | Unknown | + + + | Marital Status | Single | + + + | Hoahaoism Affiliation | NRP | + + + | Race | or | + + + | Ethnic Group | Not or | + + + Author + + + | Author | [facility] | + + + | Organization | [facility] | + + + | Address | Unknown | + + + | Phone | Unavailable | + + + Support + + +---------+ + | Name | Relationship | Address | Phone | + + +---------+ + | Mary Medellin | ECON | Unknown | | + + +---------+ + Care Team Providers + +------+ + | Care Hematology Oncology Consultant Name | Role | Phone | [...] + + + + | 11/30/ | Abstract | [facility] | Bessy Solano, | Medical Records | | 2018 | | Center at [facility] [address] | PA-C [address] | Review | | | | [place] | [facility] | | | | | Mailcode: OC8D | [place], [place] | | | | | [facility] | [address] | | | | | and Healing, | [phone] | | | | | [address] | | | | | | [place], [place] | | | | | | [address] | | | | | | [phone] | | | +--------+ + + + [...]
--- OUTSIDE RECORDS SUMMARY | ~2019-01-07 | XMS | Encounter Summary ---
Demographics + + + | Address | [address] | | | [place] [address] | + + + | Home Phone [...] | [facility] | + + + | Organization | [facility] | + [...] Team Providers + +------+ + | Care Esl Tutor Name | Role | Phone | + [...] | | | | Mailcode: Center | [place], [place] | | | | | [facility] and | [address] | | | | | [facility] [address] | [phone] | | | | | [place], [place] | | | | | | [address] | | | | | | [phone] | | | +--------+ + + + [...]
--- OUTSIDE RECORDS SUMMARY | ~2019-01-07 | XMS | Encounter Summary ---
Demographics + + + | Address | [address] | | | [place] [address] | + + + | Home Phone | | + + + | Preferred Language | Unknown | + + + | Marital Status | Single | + + + | Pentecostal Affiliation | NRP | + + + | Race | or | + + + | Ethnic Group | Not or | + + + Author + + + | Author | [facility] | + + + | Organization | [facility] [...] Team Providers + +------+ + | Care Bean Picker Name | Role | Phone | + +------+ + | Shakir Monzon MD | PCP | | + +------+ + Encounter Details +--------+ + + + + | Date | Type | Department | Care Team | Description | +--------+ + + + + | 12/01/ | Telephone | [facility] | Bessy Solano, | | | 2018 | | [place] [address] [address] | PA-C [address] | | | | | [place] | [address] | | | | | Mailcode: OC8D | [place], [place] | | | | | [facility]ow for [facility] | [address] | | | | | and [place], | [phone] | | | | | [facility] [address] | | | | | | [place], [place] | | | | | | [address] | | | | | | [phone] | | | +--------+ + + + [...]
--- OUTSIDE RECORDS SUMMARY | ~2019-01-07 | XMS | Encounter Summary ---
Demographics + + + | Address | [address] | | | [place] [address] | + + + | Home Phone [...] + + | Author | [facility] | + + + | Organization | [facility] [...] Team Providers + +------+ + | Care Order Administrator Name | Role | Phone | + +------+ + | Shakir Monzon MD | PCP | | + +------+ + Encounter Details +--------+--------+ + + + | Date | Type | Department | Care Team | Description | +--------+--------+ + + + | 08/03/ | Intake | Transfer Center | | N/A | | 2018 | | [address] | | | | | | [place] | | | | | | [place] [address] | | | +--------+--------+ + + + [...]
--- OUTSIDE RECORDS SUMMARY | ~2019-01-07 | XMS | Encounter Summary ---
Demographics + + + | Address | [address] | | | [place] [address] | + + + | Home Phone | | + + + | Preferred Language | Unknown | + + + | Marital Status | Single | + + + | Yarsanism Affiliation | Unknown | + + + | Race | Unknown | + + + | Ethnic Group | Unknown | + + + Author + + + | Author | [facility] | | | and [place] | + + + | Organization | [facility] | | | and [...] Team Providers + +------+ + | Care Rope Twisting Machine Operator Name | Role | Phone | + +------+ + | Shakir Monzon DO | PCP | | + +------+ + Reason for Visit + + + | Reason | Comments | + + + | Cardiac Rehab | | + + + Evaluate & Treat (Routine) +--------+--------+ + + + + | Status | Reason | Specialty | Diagnoses / | Referred By | Referred To | | | | | Procedures | Contact | Contact | +--------+--------+ + + + + | Closed | | Cardiac | Diagnoses | Ilia, | [facility] | | | | Rehabilitatio | Non-ST | MD Clinton | | | | | n | elevation | [address] | Rehabilitatio | | | | | (NSTEMI) | [facility] | [address] | | | | myocardial | [address] | [place] | | | | | infarction | [place], [place] | [place], [place] | | | | | (HCC) | [address] | [address] | | | | | Coronary | Phone: | Phone: | | | | | Artery | [phone] | [phone] | | | | | Disease | Fax: | Fax: | | | | | Procedures | [phone] | [phone] | | | | | Cardiac Eval | | | +--------+--------+ + + + + Encounter Details +--------+---------+ + + + | Date | Type | Department | Care Team | Description | +--------+---------+ + + + | 03/29/ | Office | [facility] | Clinton Morillo, | NSTEMI (non-ST | | 2019 | Visit | MED CTR CARDIAC | [address] [facility] | elevated myocardial | | | | REHABILITATION [address] | infarction) (HCC) | | | | [place] | [place], [place] | (Primary Dx) | | | | [place] [address] | [address] | | | | | [phone] | [phone] | | | | | | | | | | | | Sherri Pruett RN | | +--------+---------+ + + + Social [...] documented as of this encounter Progress Notes Sherri Pruett RN - 03/29/2018 10:00 AM PST [facility]ATION [address] [place] [address] Cardiac Rehab Evaluation Date: 03/29/2018 Patient Information Patient Name: Bret Espinal Jr. Date of : 1955 Age: 62 y.o. Referring Provider: Clinton Morillo MD Encounter Diagnoses Code Name Primary? I21.4 NSTEMI (non-ST elevated myocardial infarction) (HCC) Yes Cardiac Rehab Phase II Alexander atment Plan Bret Espinal Jr. (Jim) Is a 62 year old patient with a history of ETOH abuse (sober,) cirr hosis, DM II, gallbladder perforation in July 2017 with angela-hilar abscesses and biliary str icture, s/p cholecystostomy tube placement. In early April 2017 he presented at [facility] with chest pain and abdominal discomfort a nd was found to be septic, likely due to acute cholangitis. At that time, he also had elevat ed troponin, max of 0.27. He also had a brief bout of atrial fib. His post STEMI angiogram r esults below, and he is now symptom free on isosorbide and metoprolol, (however, he never di d exhibit anginal symptoms on exertion before medical treatment.) 04/2017 Coronary catheterization post NSTEMI CONCLUSIONS: 1.Diffuse moderate to moderately severe CAD [...] about 50% in mid RCA and PL-1 He has started using his exercise bike for 10 minutes most days and is taking 10 minute wal ks. He has abstained from alcohol and nicotine for months. He has reduced sodium and saturat ed fats in his diet and continues to eat simple carbs and sugars rarely, and he does not dri nk high caloric drinks. His last A1C was 9.8 in 07/2017, and he claims his blood glucoscans a re continuing to run high. Fall Ri sk Assessment Fall Risk: 2 or more falls in the past year or concern for a fall?: No If yes, reason for fall risk: Assistive device: I nterventions Designate Fall Risk by placing a star on exercise folder Assess and encourage fall risk reduction behaviors Manage and monitor hypotension if applicable Optimize home safety Refer to PT if applicable Abuse Assessment Do you feel safe in your current relationship or home? Yes Have you been hit/hurt or threatened by someone close to you? No Possible clinical concerns noted by clinician? No Action taken: No concerns Exercise LVEF: 60-65% Risk stratification category: Med Initial exercise/activity assessment: Date:03/29/18 Mode: Biostep Duration: 8 min X 2.5 MET s RPE: 3-4/10 30 Day exercise assessment: Date: Mode: Duration: RPE: /10 60 Day exercise assessment: Date: Mode: Duration: RPE: /10 Discharge exercise assessment: Date: Mode: Duration: RPE: /10 Sessio n Prescription Modes: Recumbent elliptical, Upright elliptical, Ergometer Frequency: 3 X week Duration: 30 minutes Progression: Increase duration and/or intensity to maintain THR and/or RPE 3-4/10 THR: Rest +30 bpm Resistance training: Yes Precautions: Possible silent angina Home E xercise Modes: Walk/ Exercise bike Frequency: 5 X week Duration: 30 minutes - gradually work up to 30 min Progression: Increase duration and/or intensity of exercise to maintain at least 30 min of cardio exercise, 5 days per week and RPE 3-4/10 with warm up and cool down. Interventio ns and Education Initial orientation to cardiac rehab as listed below, Completed Date: 03/18 04/05 - Equipment orientation -Warm up and cool down -Rating of Perceived Exertion- Modified Johnson Scale -Exercise Safety -Signs and Symptoms to report -Individualized exercise prescription Education: Benefits of exercise, Health consequences of inactivity, Exercise goal of 30 min utes aerobic most days of the week, Importance of hydration, Target heart rate, Determining pulse, effects of beta-blockers on heart rate and dehydrating effects of diuretics if applic able. Realistic goal setting. Plan at discharge. Comprehension assessment: Through conversation they appear to have good comprehension. Janay: Living Well with Heart Disease book Date received: 03/29/18 Aristeo pandey Goal(s) Aerobic- moderate intensity activity 30 to 60 minutes per day for at least 5 days per week Supplementing aerobic activity with an increase in daily lifestyle activities Resistance training at least two days per week COOP score: 22/40 Progression/Pro tarik toward Goals Date: 03/29/18 Notes: He is using his exercise bike for 10 minutes most days and also walking when the weather allows. Nutr ition and Weight Assessment: Height: 5'10 " Admission Weight: 224# 30 Day W eight: BMI: 32 60 Day Weight: Discharge Weight: Weight Goal: Lose 1-2# per week Waist Circumference: D/C Circum ference: Diet Assessment Initial Rate Your Plate Score: 43 Discharge Rate Your Plate Sco re: Special diet? DM Alcohol? No Inte rvention and Education Points listed below- Date Completed: 03/29/18 -Goals of BMI, Waist circumference - Encourage weight reduction and/or maintenance through physical activity/ structured exe rcise, caloric intake, and/ or behavioral management, goal setting -Heart Healthy Dietary Education Date: 03/29/18 -Referral to Senior Dot Net Developer: Date: -DVD: Healthy Eating For Life Date: Target Goal(s) -Patient weight has maintained or improved toward BMI <25 -Waist circumference <35 inches for women < 40 inches for men -Diet low in saturated fats, simple carbs, high in fruits, vegetables and whole grains Progression/ Progress toward Goals Date: 03/29/18 Notes: He has reduced sodium and saturated fats in his diet and continues to eat simple carbs and sugars rarely, and he does not drink high caloric drinks. Hypertension History of hypertension: yes Treatment: On medication Initial Resting BP: 132/80 Peak Exercise BP: 144/68 30 Day Resting BP: 30 Day Exercise BP: 60 Day Resting BP: 60 Day Exercise BP: Discharge BP: Discharge Exercise BP: Inte rventions and Education Points listed below- Date Completed: He has reduced sodium and saturated fats in his t and continues to eat simple carbs and sugars rarely, and he does not drink high caloric dr inks. -Understanding blood pressure and goal blood pressure -BP medictions - Lifestyle modifications: weight control, increased physical activity, alcohol moderation, sodium reduction, emphasis on increased fruit, vegetable and low fat dairy consumption Individual cardiac risk factors reviewed Progress toward Goals: Date: Target Goal Blood pressure Goal: <130/80 Progression /Progress toward Goals Date: 03/29/18 Notes: He eats a diet low in sodium and he is willing to exercise daily. Dyslipidemia History of Dyslipidemia: Yes Treatment: On medication Most recent lipid panel: CHOL TRIG HDL LDL- unavailalbe Interven tions and Education Points listed below- Date Completed: -Advocate for cholesterol medication if appropriate -Encourage lifestyle changes including regular lipid monitoring to achieve goals, include education on the importance of physical activity and weight management, dietary reduction o f saturated fats(<7% of total calories,) trans fats (<1% of total calories,) and cholesterol (<200mg/day.) How to raise HDL through exercise and diet. Target Goal Total 170 LDL 70 HDL >40 Triglycerides <130 Progression/P rogress toward Goals Date: 03/29/18 Notes: With the help of his , he has reduced saturated fa ts. He is willing to exercise daily Monica betes Mellitus History of diabetes: Yes Treatment: Insulin/metfomin Last hemoglobin A1C: Value: 9.8 Date: 08/03/[address] Monzon who is resigning Interventions -Referral to Trial Paralegal Date: Education Points listed below- Date Completed: 03/29/18 -Signs and symptoms of hypoglycemia -Impact of diabetes on cardiovascular risk, including understanding the importance of lifes tyle modifications, including physical activity, weight management, blood pressure control a nd lipid management Date completed: Diabetic diet instruction Date completed: 03/29/18 Target Goals -Stable pre and post exercise glucoscans -HgbA1C: <7% Progression/ Progress toward Goals Date: 03/29/18 Notes: He claims that his glucoscans continue to run high 140 -1 60 fasting. He tries to avoid simple carbs and sugars and does not drink caloric beverages. Tobacco Use Active tobacco user: No Type of tobacco: None Current amount: n/a Stage of change: Maintenance Willing to set Quit Date: n/a Barriers/Challenges: Inter vention and Education Points listed below- Date Completed: 03/29/18 -Assist patient to set a quit date and provide encouragement -Educate on benefits of complete cessation, tobacco triggers, tips for success, relapse pre vention, no smoking >90 minutes before exercise Target Goal Complete smoking cessation Progression/P rogress toward Goals Date: 03/29/18 Notes: He is doing well with this. Psychosocial Depression: Some days he does feel down. Denies HI Initial PHQ-9: 12 30 Day PHQ-9: 90 Day PHQ-9 Discharge PHQ-9: Support systems: and family, friends Notes: he is tired, has trouble sleeping due to pain issues, eats too much, has trouble con centrating. Inter vention and Education Points listed below- Date Completed: 03/29/18 -Assess presence or absence of depression using a validated screening tool on admission and every 30 days or prn if depression positive on admission or if set backs or changes in affe ct -Educate Stress management techniques, Deep breathing, progressive relaxation, encourage re gular execise -Educate and medical management -Notify PCP of depression symptoms or high PHQ-9 score. 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 I want to get back into good physical condition. I want to be in good condition for gallbladder surgery and get this tube out. Electronically signed by: Sherri Pruett RN, 03/29/2018 12:38 Patient Name: Bret Espinal /: 1955/ s igned by Tanja López MD at 03/29/2018 3:31 PM PSTdocumented in this encounter Plan of Treatment +--------+---------+ + + + | Date | Type | Specialty | Care Team | Description | +--------+---------+ + + + | 04/06/ | Office | Cardiology | Lakisha Kahn DO | | | 2019 | Visit | | [address] | | | | | | [place], [place] | | | | | | [id number] | | | | | | | | +--------+---------+ + + + documented as of this encounter Visit Diagnoses + + | Diagnosis | + + | NSTEMI (non-ST elevated myocardial infarction) (HCC) - Primary Acute myocardial | | infarction, subendocardial infarction, episode of care unspecified | + + documented in this encounter
--- OUTSIDE RECORDS SUMMARY | ~2019-01-07 | XMS | Encounter Summary ---
Demographics + + + | Address | [address] | | | [place] [address] | + + + | Home Phone | | + + + | Preferred Language | Unknown | + + + | Marital Status | Single | + + + | Yarsani Affiliation | Unknown | + + + | Race | Unknown | + + + | Ethnic Group | Unknown | + + + Author + + + | Author | [facility] | | | and [place] | + + + | Organization | [facility] | | | [...] Team Providers + +------+ + | Care Cuff Setter Name | Role | Phone | + +------+ + | Shakir Monzon DO | PCP | | + +------+ + Reason for Visit +---------+ + | Reason | Comments | +---------+ + | Results | | +---------+ + Encounter Details +--------+ + + + + | Date | Type | Department | Care Team | Description | +--------+ + + + + | 12/18/ | Telephone | [facility] | Donell Hunt MD | Results | | 2017 | | GASTROENTEROLOGY | [address] | | | | | [address] [facility] | [place], [place] | | | | | [address] [place] | [address] | | | | | [address] | [phone] | | | | | [phone] | | | +--------+ + + + [...] | | | | | [place] | | | | | | [address] | | | | | | | | +--------+---------+ + + + documented as of this encounter Visit Diagnoses Not on filedocumented in this encounter"
--- OUTSIDE RECORDS SUMMARY | ~2019-01-07 | XMS | Encounter Summary ---
Demographics + + + | Address | [address] | | | [place] [address] | + + + | Home Phone | | + + + | Preferred Language | Unknown | + + + | Marital Status | Single | + + + | Hinduism Affiliation | NRP | + + + | Race | or | + + + | Ethnic Group | Not or | + + + Author + + + | Author | [facility] | + + + | Organization | [facility] [employer] [facility] | + + + | Address | Unknown | + + + | Phone | Unavailable | + + + Support + + +---------+ + | Name | Relationship | Address | Phone | + + +---------+ + | Mary Medellin | ECON | Unknown | | + + +---------+ + Care Team Providers + +------+ + | Care Armhole Baster Jumpbasting Name | Role | Phone | + +------+ + | Shakir Monzon MD | PCP | | + +------+ + Reason for Visit + + + | Reason | Comments | + + + | Refill Request | | + + + Encounter Details +--------+--------+ + + + | Date | Type | Department | Care Team | Description | +--------+--------+ + + + | 05/25/ | Refill | Cardiology General | Sharon Sanderson | Refill Request | | 2019 | | at [facility] [address] | [place] [address] | | | | | Rloando Rivas Mailcode: | Rolando Rivas [place], | | | | | [address] [address] | | | | | [facility], | [phone] | | | | | [facility] | | | | | | floor [place], [place] | | | | | | [address] | | | | | | [phone] | | | +--------+--------+ + + + [...]
--- OUTSIDE RECORDS SUMMARY | ~2019-01-07 | XMS | Encounter Summary ---
Demographics + + + | Address | [address] | | | [place] [address] | + + + | Home Phone | | + + + | Preferred Language | Unknown | + + + | Marital Status | Single | + + + | Quaker Affiliation | Unknown | + + + [...] Team Providers + +------+ + | Care Confectionery Laboratory Manager Name | Role | Phone | [...] | | | | | | | ME | | | | | | | ESOPHAGOGAST | | | | | | | RODUODENOSCO | | | | | | | PY TRANSORAL | | | | | | | DIAGNOSTIC | | | | | | | ME EGD | | | | | | | TRANSORAL | | | | | | | BIOPSY | | | | | | | SINGLE/MULTI | | | | | | | PLE ME | | | | | | | ANESTH,UGI | | | | | | | ENDOSCOPY | | | | | | | EGD | | | +--------+--------+ + + + + Encounter Details +--------+ + + + + | Date | Type | Department | Care Team | Description | +--------+ + + + + | 12/10/ | Hospital | [facility] | Donell Hunt MD | Cirrhosis of liver | | 2017 | Encounter | [facility] | [address] | without ascites, | | | | [address] | [place], [place] | unspecified hepatic | | | | [place], [place] | [address] | cirrhosis type | | | | [address] | [phone] | (HCC); Esophageal | | | | [phone] | | varices determined | | | | | | by endoscopy (HCC) | +--------+ + + + + Social [...] + + + | Blood Pressure | 122/73 | 12/10/2016 9:30 AM | | | | | PDT | | + + + + + | Pulse | 64 | 12/10/2016 9:30 AM | | | | | PDT | | + + + + + | Temperature | 35.9 C (96.6 F) | 12/10/2016 9:11 AM | | | | | PDT | | + + + + + | Respiratory Rate | 16 | 12/10/2016 9:30 AM | | | | | PDT | | + + + + + | Oxygen Saturation | 95% | 12/10/2016 9:30 AM | | | | | PDT | | + + + + + | Inhaled Oxygen | - | - | | | Concentration | | | | + + + + + | Weight | 97.9 kg (215 lb 13.3 | 12/10/2016 7:42 AM | | | | oz) | PDT | | + + + + + | Height | 179.1 cm (5' 10.5") | 12/10/2016 7:42 AM | | | | | PDT | | + + + + + | Body Mass Index | 30.53 | 12/10/2016 7:42 AM | | | | | PDT | | + + + + + documented in this encounter Discharge Instructions Instructions Catherine Landers RN - 12/09/2016Formatting of this note might be different fro m the original. Upper GI Endoscopy with Biopsy Upper GI endoscopy is a test that looks inside your upper GI (gastrointestinal) tract. This includes your food pipe (esophagus), stomach, and duodenum (the first part of your small in testine). The test is also known as EGD (esophagogastroduodenoscopy). It is done using a too l called an endoscope. This is a long, thin, flexible tube with a tiny camera at one end. Th e test helps find problems such as ulcers, infection, or growths. During the test, tissue sa mples (biopsies) may be taken and studied for problems. With the aid of an endoscope, the doctor can view the inside of the upper GI tract and also take small tissue samples. Getting ready for your procedure Follow any instructions from your healthcare provider. Tell your provider about any medicines you are taking. You may need to stop taking all or s ome of these before the test. This includes: All prescription medicines Vves-klc-kqewqid medicines such as aspirin or ibuprofen Street drugs Herbs, vitamins, and other supplements Follow any directions you re given for not eating or drinking before the procedure. The day of the procedure The procedure takes about 20 minutes. You will go home the same day. Before the procedure begins: You may be given medicine to help you relax or sleep (sedation). This is given through an I V (intravenous) line placed in a vein in your arm or hand. Your throat may be numbed with a spray or liquid. You will be given a small plastic guard to protect your teeth. During the procedure: You lie on your left side. The endoscope is placed in your mouth, and it moves down your throat. Air is used to expandyour GI tract so the lining can be seen more clearly. You may fee l pressure or mild pain from the air. The scope sends pictures of your GI tract to a computerscreen. The esophagus, stomach, and duodenum are viewed. Problems, such as bleeding, redness or swelling (inflammation), or growths may be seen. Using tools inserted through the endoscope, small samples of tissue can be taken. In some ca ses, small growths can be removed. The endoscope is then removed. After the procedure: The provider will talk with you afterward about the results. You ll rest until you can go home. Have an adult family member or friend drive you. Relax for the r est of the day. If you had a biopsy, the results will be ready in about 7 days. Recovering at home You ll likely feel drowsy after the test. A mild sore throat and mild gas and bloating ar e normal. Once home, follow any instructions you have been given. If you had sedation, do no t drive, operate machinery, or make major decisions until the next day. Call your provider if you have any of the following: Fever of 100.4F (38C) or higher, or as directed by your healthcare provider Chest pain Dark-colored stools Severe abdominal pain that doesn't go away when passing gas Sore throat that doesn t go away Trouble swallowing Vomiting, especially with blood Any other signs or symptoms indicated by your provider Follow-up If you had a biopsy, the results will be ready in about 7 days. Your provider will talk wit h you about anymore testing or treatment that is needed. Risks and possible complications include: Sore throat or hoarseness Bloating Nausea Allergic reaction to the sedative or numbing medicine Bleeding during or after the procedure Too much bleeding from the biopsy site (if a biopsy is done) A hole or tear (perforation) in the lining of the digestive tract Inhaling food or fluid into the lungs (aspiration) Irregular heartbeat or cardiac arrest in someone with heart or lung disease Date Last Reviewed: 09/10/201419999673-8320 [employer]. [address] [place] [address]. All righ ts reserved. This information is not intended as a substitute for professional medical care. Always follow your healthcare professional's instructions. Anesthesia: General Anesthesia You are watched continuously during your procedure by your anesthesia provider. You re due to have surgery. During surgery, you ll be given medicine called anesthesia or anesthetic. This will keep you comfortable and pain-free. Youranesthesia providerwill use general anesthesia. What is general anesthesia? General anesthesia puts you into a state like deep sleep. It goes into the bloodstream (IV anesthetics), into the lungs (gas anesthetics), or both. You feel nothing during the procedu re. You will not remember it. During the procedure, the anesthesia provider monitors you con tinuously. He or she checks your heart rate and rhythm, blood pressure, breathing, and blood oxygen. IV anesthetics. IV anesthetics are given through an IV line in your arm. They re often given first. This is so you are asleep before a gas anesthetic is started. Some kinds of IV anesthetics relieve pain. Others relax you. Your doctor will decide which kind is best in y our case. Gas anesthetics. Gas anesthetics are breathed into the lungs. They are often used to solomon p you asleep. They can be given through a facemask or a tube placed in your larynx or trache a (breathing tube). If you have a facemask, your anesthesia provider will most likely place it over your nos e and mouth while you re still awake. You ll breathe oxygen through the mask as your IV anesthetic is started. Gas anesthetic may be added through the mask. If you have atube in the larynx or trachea,it will be inserted into your throat afte r you re asleep. Anesthesia tools and medicines You will likely have: IV anesthetics. These are put into an IV line into your bloodstream. Gas anesthetics.You breathe theseanestheticsinto your lungs, where they pass into your bloodstream. Pulse oximeter. This is a small clip that is attached tothe end of your finger. This m easures your blood oxygen level. Electrocardiography leads (electrodes).These are small sticky pads that are placedon your chest. They record your heart rate and rhythm. Blood pressure cuff. This reads your blood pressure. Risks and possible complications General anesthesia has some risks. These include: Breathing problems Nausea and vomiting Sore throat or hoarseness (usually temporary) Allergic reaction to the anesthetic Irregular heartbeat (rare) Cardiac arrest (rare) Anesthesia safety Follow all instructions you are given for how long not to eat or drink before your proce dure. Be sure your doctor knows what medicines and drugsyou take. This includes vysn-xgh-wou nter medicines, herbs, supplements, alcohol or other drugs. You will be asked when those wer e last taken. Have an adult family member or friend drive you home after the procedure. For the first 24 hours after your surgery: Do not drive or use heavy equipment. Do not make important decisions or sign legal documents. If important decisions or signi ng legal documents is necessary during the first 24 hours after surgery, have a trusted fami ly member or spouse act on your behalf. Avoid alcohol. Havea responsible adultstay with you.He or shecan watch for problems and help ke ep you safe. Date Last Reviewed: 01/16/201619993808-5601 [employer]. [address] [place] [address], [place] [address]. All righ ts reserved. This information is not intended as a substitute for professional medical care. Always follow your healthcare professional's instructions. Patient Discharge Instructions after an Endoscopy Procedure ? You may resume your regular [...] the physician who did your procedure at [phone] if you have any questions or experience any of the following: ? Increasing abdominal pain, nausea, or vomiting. ? Chills and fever over 101F. ? New abdominal swelling or bloating. ? Signs of rectal bleeding (black or red stool). If you cannot get a hold of your physician, then call the [facility] [phone] . If necessary, report to the Emergency Department at [facility]. Quit smoking: If you smoke or have [...] + +---------+ + + | lactulose 10 g/15 | Take 30 mLs by mouth | | 0 | | | | mL solution | 3 times daily. | | | | | + + + +---------+ + + | losartan (COZAAR) | Take 25 mg by mouth | | 0 | | | | 25 mg tablet | Daily. | | | | | + + + +---------+ + + | omeprazole | Take 40 mg by mouth | | 0 | | | | (PRILOSEC) 40 MG | every morning | | | | | | capsule | (before breakfast). | | | | | + + + +---------+ + + | rifAXIMin | Take 550 mg by mouth | | 0 | | | | (XIFAXAN) 550 mg | 2 times daily. | | | | | | TABS | | | | | | + + + +---------+ + + | cholecalciferol | Take 5,000 Units by | | 0 | | | | (VITAMIN D-3) 5000 | mouth Daily. | | | | 8 | | units CAPS | | | | | | + + + +---------+ + + | insulin glargine | Inject 60-80 Units | | 0 | | | | (LANTUS SOLOSTAR) | under the skin 2 | | | | 8 | | 100 units/mL | times daily. | | | | | | injection (pen) | | | | | | + + + +---------+ + + | Insulin Regular | Inject as directed | | 0 | | | | Human (NOVOLIN R | 3 times daily | | | | 8 | | PENFILL IJ) | (before meals). | | | | | | | Sliding scale | | | | | + + + +---------+ + + | metFORMIN | Take 1,000 mg by | | 0 | | | | (GLUCOPHAGE) 1000 MG | mouth 2 times daily | | | | 9 | | tablet | (with breakfast & | | | | | | | dinner). | | | | | + + + +---------+ + + | | Take 1 tablet by | | 0 | 11/06/19 | | | sofosbuvir-velpatasv | mouth Daily. | | | 17 | 7 | | ir (EPCLUSA) 400-100 | Indications: Chronic | | | | | | mg per | Hepatitis C, take | | | | | | tabletIndications: | daily for 12 weeks | | | | | | Chronic Hepatitis C, | | | | | | | take daily for 12 | | | | | | | weeks | | | | | | + [...] | | | | | | [place] | | | | | | [id number] | | | | | | | | +--------+---------+ + + + documented as of this encounter Procedures + +--------+ + + + | Procedure Name | Priori | Date/Time | Associated Diagnosis | Comments | | | ty | | | | + +--------+ + + + | EGD | | 12/10/2016 | Cirrhosis of liver | | | | | 8:53 AM | without ascites, | | | | | PDT | unspecified hepatic | | | | | | cirrhosis type (HCC) | | | | | | (K74.60); | | | | | | esophageal varices | | | | | | I85.00; Insulin | | | | | | dependent E66.9; DARIEL | | | | | | on CPAP G47.33 | | + +--------+ + + + +---+--------+ | | | | | Specia | | | l | | | Needs | | | | | | Insuli | | | n | | | depend | | | ent | +---+--------+ + +--------+ +---+ + | EGD | Routin | 12/10/2016 | | Results for this | | | e | 8:51 AM | | procedure are in the | | | | PDT | | results section. | + +--------+ +---+ + | POC GLUCOSE | Routin | 12/10/2016 | | Results for this | | | e | 8:03 AM | | procedure are in the | | | | PDT | | results section. | + +--------+ +---+ + | SURGICAL PATHOLOGY | Routin | 12/10/2016 | | Results for this | | EXAM | e | 12:00 AM | | procedure are in the | | | | PDT | | results section. | + +--------+ +---+ + documented in this encounter Results EGD (12/10/2016 8:51 AM PDT) + + | Specimen | + + | | + + + + -+ | Narrative | Performed At | + + -+ | | [facility] | | GastroenterologyPatient Name: Bret EspinalProcedewelina Date: 12/10/2016 | [facility] | | 8:51 AMMRN: [id number] #: [id number] of : | | | 6Admit Type: AmbulatoryAge: 61Room: [facility] 01Gender: MaleNote | | | Status: FinalizedAttending MD: Donell Hunt , [facility]rocedure: | | | Upper GI endoscopyIndications: Follow-up of esophageal | | | varicesProviders: Donell Hunt MD, Lorlyn | | | SADA Cottrell, Mariama Tomas, | | | Industrial Relations Specialist, Josiah Ortiz MD (Anesthesia Staff)Referring MD: | | | Shakir Monzon (Referring )Medicines: Monitored | | | Anesthesia CareComplications: No immediate | | | complications.Procedure: Pre-Anesthesia Assessment: - | | | Prior to the procedure, a History and Physical was performed, and | | | patient medications and allergies were reviewed. The patient is | | | competent. The risks and benefits of the procedure and the | | | sedation options and risks were discussed with the patient. All | | | questions were answered and informed consent was obtained. | | | Patient identification and proposed procedure were verified by | | | the physician, the nurse, the anesthesiologist and the | | | low voltage technician in the pre-procedure area in the endoscopy suite. | | | Mental Status Examination: alert and oriented. Airway | | | Examination: normal oropharyngeal airway and neck mobility. | | | Respiratory Examination: clear to auscultation. CV Examination: | | | normal. Prophylactic Antibiotics: The patient does not require | | | prophylactic antibiotics. Prior Anticoagulants: The patient | | | has taken no previous anticoagulant or antiplatelet agents. ASA | | | Grade Assessment: III - A patient with severe systemic | | | disease. After reviewing the risks and benefits, the patient | | | was deemed in satisfactory condition to undergo the procedure. The | | | anesthesia plan was to use monitored anesthesia care (MAC). | | | Immediately prior to administration of medications, the patient | | | was re-assessed for adequacy to receive sedatives. The heart | | | rate, respiratory rate, oxygen saturations, blood pressure, | | | adequacy of pulmonary ventilation, and response to care were | | | monitored throughout the procedure. The physical status of the | | | patient was re-assessed after the procedure. After obtaining | | | informed consent, the endoscope was passed under direct vision. | | | Throughout the procedure, the patient's blood pressure, pulse, | | | and oxygen saturations were monitored continuously. The Endoscope was | | | introduced through the mouth, and advanced to the third part | | | of duodenum. The upper GI endoscopy was accomplished without | | | difficulty. The patient tolerated the procedure well.Findings: | | | Grade I varices were found in the lower third of the esophagus. | | | They were 2 mm in largest diameter. Two columns of very small | | | esophageal varices. Banding not performed due to very small | | | size of varices. The Z-line was irregular and was found 36 cm | | | from the incisors. Biopsies were taken with a cold forceps for | | | histology. Verification of patient identification for the | | | specimen was done by the physician and nurse using the | | | patient's name and date. Estimated blood loss was | | | minimal. The exam of the esophagus was otherwise normal. | | | Diffuse mildly erythematous mucosa without bleeding was found in the | | | entire examined stomach. Previous gastric biopsies have been | | | unremarkable. No other significant abnormalities were | | | identified in a careful examination of the stomach. The | | | cardia and gastric fundus were normal on retroflexion. The | | | examined duodenum was normal.Impression: - Grade I esophageal | | | varices. - Z-line irregular, 36 cm from the incisors. Biopsied. | | | - Erythematous mucosa in the stomach. - Normal examined | | | duodenum.Recommendation: [...] - | | | Repeat upper endoscopy for surveillance based on pathology results. | | | - Return to GI clinic PRN. - No aspirin, ibuprofen, | | | naproxen, or other non-steroidal anti-inflammatory drugs. | | | - The findings and recommendations were discussed with the patient. | | | - Repeat upper endoscopy in 6 months for surveillance.Donell Edwards | | | MD Gilbert12/10/2016 9:13:07 AMThis report has been signed | | | electronically.Number of Addenda: 0Note Initiated On: 12/10/2016 8:51 | | | AMTotal Procedure Duration: 0 hours 7 minutes 26 seconds Scope In: | | | 8:59:51 AMScope Out: 9:07:17 AM [facility] | | | [place], [address] [place] [id number] | | | - Resume previous diet. | | | - Continue present medications. | | | - Await pathology results. | | | - Repeat upper endoscopy for surveillance based on pathology results. | | | - Return to GI clinic PRN. | | | - No aspirin, ibuprofen, naproxen, or other non-steroidal | | | anti-inflammatory drugs. | | | - The findings and recommendations were discussed with the patient. | | | - Repeat upper endoscopy in 6 months for surveillance. | | |Donell Hunt MD | | |12/10/2016 9:13:07 AM | | |This report has been signed electronically. | | |Number of Addenda: 0 | | |Note Initiated On: 12/10/2016 8:51 AM | | |Total Procedure Duration: 0 hours 7 minutes 26 seconds | | |Scope In: 8:59:51 AM | | |Scope Out: 9:07:17 AM | | | [facility], [address] [facility], [place], [place] | | | [address] | | + + -+ + +---------+ + + | Performing | Address | City/State/Zipcode | Phone Number | | Organization | | | | + +---------+ + + | [facility] | | | | + +---------+ + + POC Glucose (12/10/2016 8:03 AM PDT) + +---------+ + + + | Component | Value | Ref Range | Performed | Pathologist | | | | | At | Signature | + +---------+ + + + | Glucose, | 210 (H) | 70 - 109 mg/dL | [...] [address] | [place] | [phone] | | [facility] | | [address] | | | - LABORATORY | | | | + + + + + Surgical Pathology Exam (12/10/2016 12:00 AM PDT) + + | Specimen | + + | | + + + + + | Narrative | Performed At | + + + | SPECIMEN(S): A DISTAL ESOPHAGEAL BIOPSY SPECIMEN SOURCE: A. DISTAL | [facility] | | ESOPHAGEAL BIOPSY CLINICAL HISTORY: K74.60 (unspecified cirrhosis | INCYTE | | of liver), I85.00 (esophageal varices without bleeding), E66.9 | | | (obesity, unspecified), G47.33 (obstructive sleep apnea [adult] | | | [pediatric]) MICROSCOPIC DESCRIPTION: Histologic sections of all | | | submitted blocks are examined by light microscopy. These findings, | | | together with the gross examination, support the pathologic diagnosis. 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 JVR:smh:C2NR GROSS DESCRIPTION: | | | Received in formalin labeled "Bret Espinal, distal esophagus biopsy" | | | are two pink-flowers tissue fragments measuring from 0.3-0.35 cm, | | | submitted, all in (A1). ka:EVITA:rusty PERFORMING LABORATORY: Tissue | | | processing and slide preparation were performed by [facility], | | | [address], [place] [address] ([employer] Caster: | | | Catrachito Ortiz M.D. CLIA#: [id number]). Professional interpretation | | | was performed by [facility], [facility] | | | [place], [address] [facility], [place] [address] (Medical | | | Director: Catrachito Ortiz M.D.; CLIA#: [id number]). | | | Diagnostician: Catrachito Ortiz MD Pathologist Electronically | | | Signed 12/11/2016 | | + + + + +---------+ [...] cirrhosis type (HCC) | + + | Esophageal varices determined by endoscopy (HCC) | + + documented in this [...] +---------+ +------+------+------+ +---+---+ | | | +---+---+ documented in this encounter
--- OUTSIDE RECORDS SUMMARY | ~2019-01-07 | XMS | Encounter Summary ---
Demographics + + + | Address | [address] | | | [place] [address] | + + + | Home Phone [...] | [facility] [email or web address] [facility] | + + + | Organization | [facility] [employer] [facility] | + + + | Address | Unknown | + + + | Phone | Unavailable | + + + Support + + +---------+ + | Name | Relationship | Address | Phone | + + +---------+ + | Mary Medellin | ECON | Unknown | | + + +---------+ + Care Team Providers + +------+ + | Care Radio Rigger Name | Role | Phone | + [...] | | | | | unspecified | [address] | and Healing, | | | | | whether | Phone: | [address] | | | | | ascites | [phone] | [place], [place] | | | | | present | Fax: | [address] | | | | | (HCC) | [phone] | Phone: | | | | | Procedures | | [phone] | | | | | CONSULT TO | | Fax: | | | | | HEPATOLOGY | | [phone] | +--------+--------+ + + + + Consultation [...] of breath | MD Elle | [facility] [address] | | | | | Procedures | [address] | [place] | | | | | CONSULT TO | Renato | [place], [place] | | | | | CARDIOLOGY | [place] | [address] | | | | | | [place], [place] | Phone: | | | | | | [address] | [phone] | | | | | | Phone: | Fax: | | | | | | [phone] | [phone] | | | | | | Fax: | | | | | | | [phone] | | +--------+--------+ + + + + [...] | | | | | ECHOCARDIOGR | [place], [place] | | | | | | AM, ADULT | [address] | | | | | | | Phone: | | | | | | | [phone] | | | | | | | Fax: | | | | | | | [phone] | | +--------+--------+ + + + + [...] | | | | [address] | [place], [place] | | | | | | [place], | [address] | | | | | | [place] | Phone: | | | | | | [address] | [phone] | | | | | | Phone: | Fax: | | | | | | [phone] | [phone] | | | | | | Fax: | | | | | | | [phone] | | +--------+--------+ + + + + Encounter Details +--------+---------+ + + + | Date | Type | Department | Care Team | Description | +--------+---------+ + + + | 10/13/ | Office | Digestive Health | Clinton Morillo, | Shortness of breath | | 2018 | Visit | [facility] [address] | [address] | (Primary Dx); | | | | [address] | [address] | Hepatic cirrhosis, | | | | Mailcode: Center | [place], [place] | unspecified hepatic | | | | [facility] and | [address] | cirrhosis type, | | | | Healing, [address] | [phone] | unspecified whether | | | | [place], [place] | | ascites present | | | | [address] | | ([facility]) | | | | [phone] | | | +--------+---------+ + + + [...] appropriate Clinton Morillo M.D. [facility] [place] ([facility]) Professor and Vice-[employer] Architect of Surgery [facility] Chair for Pancreatic Disease Research [facility] [place] Cell phone: [phone] / [facility] provider's line [phone]. email: [email or web address] Elle Rutledge MD - 10/13/2017 10:10 AM [...] to the hospital and was transferred to [facility] for further care. During this hospitalization he was septic with some acute hepatic in jury and required a cholecystostomy tube to control his sepsis. He recovered and has been at home with the cholecystostomy tube. Due to his severe systemic disease and cirrhosis, he w as referred back to [facility] for surgery. He reports getting around ok [...]
--- OUTSIDE RECORDS SUMMARY | ~2019-01-07 | XMS | Clinical Summary ---
Demographics + + + | Address | [address] | | | [place] [address] | + + + | Home Phone | | + + + | Preferred Language | Unknown | + + + | Marital Status | Single | + + + | Muslim Affiliation | NRP | + + + [...] Team Providers + +------+ + | Care Railroad Signal Operator Name | Role | Phone | + +------+ + | Shakir Monzon MD | PCP | | + +------+ + Source Comments LINDA is fully live on both EpicCare Ambulatory and EpicCare InPatient.[facility] Allergies + + [...] PLUS | | 18-Pre | 6 | [address] | id | | | OPEN | | sent | | [place], [place] | | | | CARD | | | | [phone] | | + +--------+ +--------+ + +--------+ | [facility] | [facility] | [phone] | | | | Agency [...] Person | Self | [birth year] | [address] | | | al/Fam | | 1955 | [phone] | [place] [address] | | | eryn | | | [...]
--- OUTSIDE RECORDS SUMMARY | ~2019-01-07 | XMS | Encounter Summary ---
Demographics + + + | Address | [address] | | | [place] [address] | + + + | Home Phone [...] Team Providers + +------+ + | Care End Polisher Name | Role | Phone | + [...] | | | [address] [facility] | [place] | | | | | [address] | [address] | | | | | [address] | [phone] | | | | | [phone] | | | +--------+ + + + [...] [place] | | | | | | [address] | | | | | | | | +--------+---------+ + + + documented as of this encounter Visit Diagnoses Not on filedocumented in this encounter"
--- OUTSIDE RECORDS SUMMARY | ~2019-01-07 | XMS | Encounter Summary ---
Demographics + + + | Address | [address] | | | [place] [address] | + + + | Home Phone | | + + + | Preferred Language | Unknown | + + + | Marital Status | Single | + + + | Restoration Affiliation | Unknown | + + + | Race | Unknown | + + + | Ethnic Group | Unknown | + + + Author + + + | Author | [facility] | | | and [place] | + + + | Organization | [facility] | | | and [...] Team Providers + +------+ + | Care Field Service Specialist Name | Role | Phone | + +------+ + | Shakir Monzon DO | PCP | | + +------+ + Reason for Visit + + + | Reason | Comments | + + + | Chest Pain | midsternal | + + + | Back Pain | lumbar | + + + Auth/Cert +--------+--------+ + [...] + + + + | 08/03/ | Emergency | [facility] | Josiah Victor | Abdominal pain, | | 2018 | | [facility] | Arnold Gerard MD | unspecified | | | | CENTER [address] | [address] | abdominal location | | | | [place], [place] | [place], [place] | (Primary Dx); | | | | [address] | [address] | Calculus of | | | | [phone] | | gallbladder and bile | | | | | Agustin Almonte MD | duct with acute | | | | | [address] | cholecystitis | | | | | [place] [address] | without obstruction; | | | | | [phone] | Hepatic cirrhosis, | | | | [...] + | Blood Pressure | 127/58 | 08/03/2017 7:31 AM | | | | | PDT | | + + + + + | Pulse | 63 | 08/03/2017 7:43 AM | | | | | PDT | | + + + + + | Temperature | 36.9 C (98.4 F) | 08/03/2017 1:32 AM | | | | | PDT | | + + + + + | Respiratory Rate | 21 | 08/03/2017 7:43 AM | | | | | PDT | | + + + + + | Oxygen Saturation | 96% | 08/03/2017 7:43 AM | | | | | PDT | | + + + + + | Inhaled Oxygen | - | - | | | Concentration | | | | + + + + + | Weight | 93.6 kg (206 lb 5.6 | 08/03/2017 1:30 AM | | | | oz) | PDT | | + + + + + | Height | - | - | | + + + + + | Body Mass Index | 29.19 | 04/26/2017 10:43 AM | | | | | PDT | | + + + + + documented in this encounter Medications at Time [...] | | | | | [place] | | | | | | [address] | | | | | | | | +--------+---------+ + + + documented as of this encounter Procedures + +--------+ + + + | Procedure Name | Priori | Date/Time | Associated Diagnosis | Comments | | | ty | | | | + +--------+ + + + | CT ABDOMEN PELVIS W | STAT | 08/03/2017 | | Results for this | | CONTRAST | | 4:02 AM | | procedure are in the | | | | PDT | | results section. | + +--------+ + + + | XR CHEST AP PORTABLE | STAT | 08/03/2017 | | Results for this | | | | 2:15 AM | | procedure are in the | | | | PDT | | results section. | + +--------+ + + + | CULTURE, BLOOD | STAT | 08/03/2017 | | Results for this | | | | 1:53 AM | | procedure are in the | | | | PDT | | results section. | + +--------+ + + + | AMMONIA | STAT | 08/03/2017 | | Results for this | | | | 1:53 AM | | procedure are in the | | | | PDT | | results section. | + +--------+ + + + | POC GLUCOSE | Routin | 08/03/2017 | | Results for this | | | e | 1:40 AM | | procedure are in the | | | | PDT | | results section. | + +--------+ + + + | BETA | Add-On | 08/03/2017 | | Results for this | | HYDROXYBUTYRATE, | | 1:37 AM | | procedure are in the | | QUANT | | PDT | | results section. | + +--------+ + + + | PROCALCITONIN, SERUM | STAT | 08/03/2017 | | Results for this | | | | 1:37 AM | | procedure are in the | | | | PDT | | results section. | + +--------+ + + + | TROPONIN I | STAT | 08/03/2017 | | Results for this | | | | 1:37 AM | | procedure are in the | | | | PDT | | results section. | + +--------+ + + + | CULTURE, BLOOD | STAT | 08/03/2017 | | Results for this | | | | 1:37 AM | | procedure are in the | | | | PDT | | results section. | + +--------+ + + + | PROTIME INR | STAT | 08/03/2017 | | Results for this | | | | 1:37 AM | | procedure are in the | | | | PDT | | results section. | + +--------+ + + + | CBC WITH | STAT | 08/03/2017 | | Results for this | | DIFFERENTIAL | | 1:37 AM | | procedure are in the | | | | PDT | | results section. | + +--------+ + + + | B TYPE NATRIURETIC | STAT | 08/03/2017 | | Results for this | | PEPTIDE | | 1:37 AM | | procedure are in the | | | | PDT | | results section. | + +--------+ + + + | LIPASE | STAT | 08/03/2017 | | Results for this | | | | 1:37 AM | | procedure are in the | | | | PDT | | results section. | + +--------+ + + + | LACTIC ACID | STAT | 08/03/2017 | | Results for this | | | | 1:37 AM | | procedure are in the | | | | PDT | | results section. | + +--------+ + + + | COMPREHENSIVE | STAT | 08/03/2017 | | Results for this | | METABOLIC PANEL | | 1:37 AM | | procedure are in the | | | | PDT | | results section. | + +--------+ + + + | ECG 12 LEAD | STAT | 08/03/2017 | | Results for this | | | | 1:34 AM | | procedure are in the | | | | PDT | | results section. | + +--------+ + + + | OXYGEN THERAPY | STAT | 08/03/2017 | | | | | | 1:31 AM | | | | | | PDT | | | + +--------+ + + + documented in this encounter Results CT Abdomen Pelvis w Contrast (08/03/2017 4:02 AM PDT) + + | Specimen | + + | | + + + + + | Narrative | Performed At | + + + | CT ABDOMEN AND PELVIS WITH CONTRAST ENHANCED CT ABDOMEN AND | [facility] | | PELVIS 08/03/2017 3:59 AM CLINICAL HISTORY: CHEST PAIN BACK | | | PAIN COMPARISON: MRCP April 26, ultrasound and chest CT | | | April 25 and more remote imaging TECHNIQUE: Axial images are | | | performed through the abdomen and pelvis following the uneventful | | | intravenous administration of 90 mL Omnipaque 350 contrast. | | | Coronal and sagittal reformations are also performed. ABDOMEN | | | FINDINGS: Coronary and aortic valvular calcification is present. | | | Imaged lung bases are unremarkable. The liver again demonstrates a | | | diffusely micronodular contour and caudate lobe hypertrophy, | | | consistent with cirrhosis. A tiny rounded hypodensity in the | | | anterior hepatic dome corresponds with a previously described cyst. | | | No other hepatic mass lesion is apparent on this single phase exam. | | | There is prominent distention of the gallbladder, which again | | | contains small, dependent calcified gallstones. Along the medial | | | margin of the gallbladder, there are circumscribed, multilocular | | | appearing collections of low attenuation fluid, which closely | | | approximate the gastric pylorus and proximal duodenum. Some of | | | these pockets contain additional small calcified gallstones. Mild, | | | generalized biliary ductal dilation appears more pronounced, with the | | | common bile duct measuring up to 9 mm distally. Some mass effect on | | | the traversing common duct is questioned near the brian hepatis. | | | No intraductal filling defect is visible and there is no visible | | | pancreatic ductal dilation. The spleen is enlarged but appears | | | slightly less pronounced, measuring up to 17 cm craniocaudal | | | dimension. No splenic parenchymal abnormality is visible. The | | | main portal vein is subjectively small in caliber but appears patent. | | | Prominent collateral venous channels persist along the medial | | | aspect of the spleen, coursing to the portal confluence and left | | | renal vein. Small distal paraesophageal varices are present as | | | well. The adrenal glands and right kidney are unremarkable. A | | | small rounded hypodensity in the anterior, mid left kidney is | | | consistent with a cyst. There is no hydroureteronephrosis. | | | Sigmoid colonic diverticulosis is present. There is moderate right | | | predominant colonic stool without evidence of bowel obstruction. | | | The jejunum, ileum and appendix are unremarkable. No free air, | | | ascites, or hernia is evident. An enlarged portacaval lymph node | | | measuring up to 2 cm short axis on image 38 is stable. There is | | | scattered aortoiliac calcification. Mild leftward lumbar curvature | | | is present along with lumbar degenerative disc disease, spondylosis | | | and variable stenosis. PELVIS FINDINGS: The bladder, prostate | | | and seminal vesicles are unremarkable. There is a tiny, | | | fat-containing right inguinal hernia. No free air, ascites or | | | pathologic lymph node enlargement is evident. There are mild to | | | moderate degenerative changes of the hips. IMPRESSION - 1. | | | CHOLELITHIASIS AND GALLBLADDER DISTENTION WITH NEW MULTILOCULAR | | | FLUID COLLECTIONS ALONG THE MEDIAL MARGIN OF THE GALLBLADDER, SOME OF | | | WHICH CONTAIN GALLSTONES, AND CLOSELY APPROXIMATE THE GASTRIC | | | PYLORUS AND DESCENDING DUODENUM. FINDINGS ARE CONCERNING FOR | | | CHOLECYSTITIS AND INTRAMURAL/PERICHOLECYSTIC ABSCESS FORMATION, WITH | | | POTENTIAL EROSION INTO THE ADJACENT BOWEL. MILD BILIARY DUCTAL | | | DILATION IS MORE PRONOUNCED FROM IMAGING OF APRIL 2017. 2. | | | CIRRHOSIS AND EVIDENCE OF PORTAL HYPERTENSION, WITHOUT ASCITES. | | | THERE IS A STABLE ENLARGED PORTACAVAL LYMPH NODE. 3. MODERATE | | | COLONIC STOOL RETENTION WITHOUT EVIDENCE OF BOWEL OBSTRUCTION. 4. | | | ATHEROSCLEROSIS. Preliminary results of this study were | | | reported to the ER staff by the [facility] radiologist on July | | | 2017 at 0441 hours. Dictated and Signed by: Tree Johnston MD | | | Electronically signed: 08/03/2017 9:18 AM | | + + + + + | Procedure Note | + + | Harjit, Rad Results In - 08/03/2017 9:22 AM PDT | | CT ABDOMEN AND PELVIS WITH CONTRAST | | ENHANCED CT ABDOMEN AND PELVIS 08/03/2017 3:59 AM | | | | CLINICAL HISTORY: CHEST PAIN | | BACK PAIN | | | | COMPARISON: MRCP April 26, ultrasound and chest CT April 25 and more remote | | imaging | | | | TECHNIQUE: Axial images are performed through the abdomen and pelvis following | | the uneventful intravenous administration of 90 mL Omnipaque 350 contrast. | | Coronal and sagittal reformations are also performed. | | | | ABDOMEN FINDINGS: Coronary and aortic valvular calcification is present. | | Imaged lung bases are unremarkable. The liver again demonstrates a diffusely | | micronodular contour and caudate lobe hypertrophy, consistent with cirrhosis. A | | tiny rounded hypodensity in the anterior hepatic dome corresponds with a | | previously described cyst. No other hepatic mass lesion is apparent on this | | single phase exam. There is prominent distention of the gallbladder, which | | again contains small, dependent calcified gallstones. Along the medial margin | | of the gallbladder, there are circumscribed, multilocular appearing collections | | of low attenuation fluid, which closely approximate the gastric pylorus and | | proximal duodenum. Some of these pockets contain additional small calcified | | gallstones. Mild, generalized biliary ductal dilation appears more pronounced, | | with the common bile duct measuring up to 9 mm distally. Some mass effect on | | the traversing common duct is questioned near the brian hepatis. No intraductal | | filling defect is visible and there is no visible pancreatic ductal dilation. | | The spleen is enlarged but appears slightly less pronounced, measuring up to 17 | | cm craniocaudal dimension. No splenic parenchymal abnormality is visible. The | | main portal vein is subjectively small in caliber but appears patent. Prominent | | collateral venous channels persist along the medial aspect of the spleen, | | coursing to the portal confluence and left renal vein. Small distal | | paraesophageal varices are present as well. The adrenal glands and right kidney | | are unremarkable. A small rounded hypodensity in the anterior, mid left kidney | | is consistent with a cyst. There is no hydroureteronephrosis. | | | | Sigmoid colonic diverticulosis is present. There is moderate right predominant | | colonic stool without evidence of bowel obstruction. The jejunum, ileum and | | appendix are unremarkable. No free air, ascites, or hernia is evident. An | | enlarged portacaval lymph node measuring up to 2 cm short axis on image 38 is | | stable. There is scattered aortoiliac calcification. Mild leftward lumbar | | curvature is present along with lumbar degenerative disc disease, spondylosis | | and variable stenosis. | | | | PELVIS FINDINGS: The bladder, prostate and seminal vesicles are unremarkable. | | There is a tiny, fat-containing right inguinal hernia. No free air, ascites or | | pathologic lymph node enlargement is evident. There are mild to moderate | | degenerative changes of the hips. | | | | IMPRESSION - | | 1. CHOLELITHIASIS AND GALLBLADDER DISTENTION WITH NEW MULTILOCULAR FLUID | | COLLECTIONS ALONG THE MEDIAL MARGIN OF THE GALLBLADDER, SOME OF WHICH CONTAIN | | GALLSTONES, AND CLOSELY APPROXIMATE THE GASTRIC PYLORUS AND DESCENDING DUODENUM. | | FINDINGS ARE CONCERNING FOR CHOLECYSTITIS AND INTRAMURAL/PERICHOLECYSTIC | | ABSCESS FORMATION, WITH POTENTIAL EROSION INTO THE ADJACENT BOWEL. MILD BILIARY | | DUCTAL DILATION IS MORE PRONOUNCED FROM IMAGING OF APRIL 2017. | | | | 2. CIRRHOSIS AND EVIDENCE OF PORTAL HYPERTENSION, WITHOUT ASCITES. THERE IS A | | STABLE ENLARGED PORTACAVAL LYMPH NODE. | | | | 3. MODERATE COLONIC STOOL RETENTION WITHOUT EVIDENCE OF BOWEL OBSTRUCTION. | | | | 4. ATHEROSCLEROSIS. | | | | Preliminary results of this study were reported to the ER staff by the [facility] | | Imaging radiologist on August 03, 2017 at 0441 hours. | | | | Dictated and Signed by: Tree Johnston MD | | Electronically signed: 08/03/2017 9:18 AM | + + + +---------+ + + | Performing | Address | City/State/Zipcode | Phone Number | | Organization | | | | + +---------+ + + | [facility] | | | | + +---------+ + + XR Chest AP Portable (08/03/2017 2:15 AM PDT) + + | Specimen | + + | | + + + + + | Narrative | Performed At | + + + | EXAM: XR CHEST AP PORTABLE dated 08/03/2017 2:15 AM HISTORY: | [facility] | | Chest pain. Back pain. Comparison: April 27, 2017. | | | TECHNIQUE: A single portable view of the chest. FINDINGS: The | | | lungs are symmetrically aerated. They are clear. There are no | | | large pleural effusions. There is no pneumothorax. The cardiac | | | and mediastinal contours are not enlarged. No acute osseous | | | abnormalities. IMPRESSION - No radiographic evidence for | | | acute disease in the chest. Dictated and Signed by: Bret Andrews | | | MD Susi Electronically signed: 08/03/2017 9:02 AM | | + + + + + | Procedure Note | + + | Harjit, Rad Results In - 08/03/2017 9:05 AM PDT EXAM: XR CHEST AP PORTABLE dated | | 08/03/2017 2:15 AMHISTORY: Chest pain. Back pain.Comparison: April 27, 2017.TECHNIQUE: A | | single portable view of the chest.FINDINGS:The lungs are symmetrically aerated. They | | are clear. There are no largepleural effusions. There is no pneumothorax. The cardiac | | and mediastinalcontours are not enlarged. No acute osseous abnormalities. IMPRESSION | | -No radiographic evidence for acute disease in the chest.Dictated and Signed by: Bret Andrews | | MD Susi Electronically signed: 08/03/2017 9:02 AM | | | |FINDINGS: | | | |The lungs are symmetrically aerated. They are clear. There are no large | |pleural effusions. There is no pneumothorax. The cardiac and mediastinal | |contours are not enlarged. No acute osseous abnormalities. | | | |IMPRESSION - | | | |No radiographic evidence for acute disease in the chest. | | | |Dictated and Signed by: Bret Goldman MD | | Electronically signed: 08/03/2017 9:02 AM | + + + +---------+ + + | Performing | Address | City/State/Zipcode | Phone Number | | Organization | | | | + +---------+ + + | [facility] | | | | + +---------+ + + Ammonia (08/03/2017 1:53 AM PDT) + +--------+ + + + | Component | Value | Ref Range | Performed | Pathologist | | | | | At | Signature | + +--------+ + + + | Ammonia | 46 (H) | 11 - 35 umol/L | [facility] | | | | | | [facility] | | | | | | [facility] | | | | | | C[facility] - | | | | | | LABORATORY | | + +--------+ + + + + + | Specimen | + + | Blood | + + + + + + + | Performing | Address | City/State/Zipcode | Phone Number | | Organization | | | | + + + + + | [facility] | [address] | [place] | [phone] | | [facility] | | [address] | | | - LABORATORY | | | | + + + + + Culture, Blood (08/03/2017 1:53 AM PDT) + + + + + + | Component | Value | Ref Range | Performed | Pathologist | | | | | At | Signature | + + + + + + | Culture | No growth after 5 days | | [facility] | | | | incubation. | | [facility] | | | | | | MEDICAL | | | | | | CENTER - | | | | | | LABORATORY | | + + + + + + + + | Specimen | + + | Blood - Swab of line | | insertion site | | (specimen) | + + + + + + + | Performing | Address | City/State/Zipcode | Phone Number | | Organization | | | | + + + + + | [facility] | [address] | [place] | [phone] | | [facility] | | [address] | | | - LABORATORY | | | | + + + + + POC Glucose (08/03/2017 1:40 AM PDT) + +---------+ + + + | Component | Value | Ref Range | Performed | Pathologist | | | | | At | Signature | + +---------+ + + + | Glucose, | 212 (H) | 70 - 109 mg/dL | [...] [address] | [place] | [phone] | | [facility] | | [address] | | | - LABORATORY | | | | + + + + + Beta Hydroxybutyrate, Quant (08/03/2017 1:37 AM PDT) + +-------+ + + + | Component | Value | Ref Range | Performed | Pathologist | | | | | At | Signature | + +-------+ + + + | Beta | 0.09 | 0.02 - 0.27 | [facility] | | | Hydroxybuty | | mmol/L | [facility] | | | rate | | | MEDICAL | | | [...] [address] | [place] | [phone] | | [facility] | | [address] | | | - LABORATORY | | | | + + + + + Procalcitonin (08/03/2017 1:37 AM PDT) + + + + + + | Component | Value | Ref Range | Performed | Pathologist | | | | | At | Signature | + + + + + + | Procalciton | 0.20 | <=0.50 ng/mL | [facility] | | | in | | | [facility] | | | | | | MEDICAL | | | | | | CENTER - | | | | | | LABORATORY | | + + + + + + | Comment | Comment: < 0.50 | | [facility] | | | | ng/mL:Procalcitonin | | [facility] | | | | levels below 0.50 ng/mL | | MEDICAL | | | | on the first day of | | CENTER - | | | | admission represents a | | LABORATORY | | | | low risk for progression | | | | | | to severe sepsis and/or | | | | | | septic shock, however | | | | | | these do not exclude an | | | | | | infection, because | | | | | | localized infections | | | | | | (without systemic signs) | | | | | | may also be associated | | | | | | with such low levels. | | | | | | > 2.00 | | | | | | ng/mL:Procalcitonin | | | | | | levels above 2.00 ng/mL | | | | | | on the first day of | | | | | | admission represents a | | | | | | high risk for | | | | | | progression to severe | | | | | | sepsis and/or septic | | | | | | shock. If the | | | | | | procalcitonin | | | | | | measurement is performed | | | | | | shortly after the | | | | | | systemic infection | | | | | | process has started | | | | | | (usually less than 6 | | | | | | hours), these values may | | | | | | still be low. As | | | | | | various non-infectious | | | | | | conditions are known to | | | | | | induce procalcitonin as | | | | | | well, procalcitonin | | | | | | levels between 0.50 | | | | | | ng/mL and 2.00 ng/mL | | | | | | should be reviewed | | | | | | carefully to take into | | | | | | account the specific | | | | | | clinical background and | | | | | | condition(s) of the | | | | | | individual patient. | | | | + + + + + + + + | Specimen | + + | Blood | + + + + + + + | Performing | Address | City/State/Zipcode | Phone Number | | Organization | | | | + + + + + | [facility] | [address] | [place] | [phone] | | [facility] | | [address] | | | - LABORATORY | | | | + + + + + Lactic Acid (08/03/2017 1:37 AM PDT) + +---------+ + + + | Component | Value | Ref Range | Performed | Pathologist | | | | | At | Signature | + +---------+ + + + | Lactate | 2.4 (H) | 0.5 - 2.2 | [facility] | [...] [facility] | [address] | [place] | [phone] | | [facility] | | [address] | | | - LABORATORY | | | | + + + + + Culture, Blood (08/03/2017 1:37 AM PDT) + + + + + + | Component | Value | Ref Range | Performed | Pathologist | | | | | At | Signature | + + + + + + | Culture | No growth after 5 days | | [facility] | | | | incubation. | | [facility] | | | | | | MEDICAL | | | | | | CENTER - | | | | | | LABORATORY | | + + + + + + + + | Specimen | + + | Blood - Peripheral | | blood specimen | | (specimen) | + + + + + + + | Performing | Address | City/State/Zipcode | Phone Number | | Organization | | | | + + + + + | [facility] | [address] | [place] | [phone] | | [facility] | | [address] | | | - LABORATORY | | | | + + + + + Troponin I (08/03/2017 1:37 AM PDT) + + + + + + | Component | Value | Ref Range | Performed | Pathologist | | | | | At | Signature | + + + + + + | Troponin I | 0.02Comment: Reference | <0.06 ng/mL | [facility] | | | | Ranges:0.00-0.06 = | | [facility] | | | | NORMAL>0.06 = | | MEDICAL | | | | SUSPICIOUS FOR | | CENTER - | | | | MYOCARDIAL DAMAGE NOTE: | | LABORATORY | | | | Values greater than 0.50 | | | | | | ng/mL have been shown | | | | | | to be strongly | | | | | | associated with acute | | | | | | myocardial infarction. | | | | | | [employer] | | | | | [...] + + | Performing | Address | City/State[facility] | Phone Number | | Organization | | | | + + + + + | [facility] | [address] | [place] | [phone] | | [facility] | | [address] | | | - LABORATORY | | | | + + + + + Protime INR (08/03/2017 1:37 AM PDT) + + + + + + | Component | Value | Ref Range | Performed | Pathologist | | | | | At | Signature | + + + + + + | Prothrombin | 13.7 | 11.3 - 13.9 | [facility] | | | Time | | seconds | [facility] | | | | | | MEDICAL | | | | | | CENTER - | | | | | | LABORATORY | | + + + + + + | INR | 1.06Comment: Usual Oral | 0.90 - 1.10 | [facility] | | | | Anticoagulation Range: | | [facility] | | | | 2.0 - 3.0High | | MEDICAL | | | | Level Oral | | CENTER - | [...] [address] | [place] | [phone] | | [facility] | | [address] | | | - LABORATORY | | | | + + + + + Lipase (08/03/2017 1:37 AM PDT) + +-------+ + + + | Component | Value | Ref Range | Performed | Pathologist | | | | | At | Signature | + +-------+ + + + | Lipase | 45 | 0 - 60 U/L | [facility] | | | | [...] + | [facility] | [address] | [place] | [phone] | | [facility] | | [address] | | | - LABORATORY | | | | + + + + + Comprehensive Metabolic Panel (08/03/2017 1:37 AM PDT) + + + + + [...] + + + + | K | 4.3 | 3.5 - 5.1 | [facility] | [...] + + + + | CO2 | 21 (L) | 24 - 31 mmol/L | [facility] | | | | | | [facility] | | | | | | MEDICAL | | | | | | CENTER - | | | | | | LABORATORY | | + + + + + + | Anion Gap | 5 | 3 - 16 mmol/L | [facility] | | | | | | [facility] | | | | | | MEDICAL | | | | | | CENTER - | | | | | | LABORATORY | | + + + + + + | Glucose | 228 (H) | 70 - 109 mg/dL | [facility] | | | | | | [facility] | | | | | | MEDICAL | | | | | | CENTER - | | | | | | LABORATORY | | + + + + + + | BUN | 14 | 7 - 18 mg/dL | [facility] | | | | | | [facility] | | | | | | MEDICAL | | | | | | CENTER - | | | | | | LABORATORY | | + + + + + + | Creatinine | 1.12 | 0.60 - 1.30 | [facility] | [...] | | | FILTRATION | mL/min/1.73m2 | [facility] | | | [place] | RATE,ESTIMATED | | MEDICAL | | | | mL/min/1.02k6Lvsw than | | CENTER - | | [...] + + + + | Calcium | 8.8 | 8.3 - 10.5 | [facility] | | | | | mg/dL | [facility] | | | | | | MEDICAL | | | | | | CENTER - | | | | | | LABORATORY | | + + + + + + | Albumin | 2.8 (L) | 3.2 - 5.0 g/dL | [facility] | | | | | | [facility] | | | | | | MEDICAL | | | | | | CENTER - | | | | | | LABORATORY | | + + + + + + | Bilirubin | 3.6 (H)Comment: This is | 0.1 - 1.5 [...] + + + + | Total | 7.3 | 6.0 - 7.8 g/dL | [facility] | | | Protein | | | [facility] | | | | | | MEDICAL | | | | | | CENTER - | | | | | | LABORATORY | | + + + + + + | AST | 61 (H)Comment: This is | 10 - 42 U/L | [facility] | | | | an appended report. | | [facility] | | | | These results have been | | MEDICAL | | | | appended to a previously | | CENTER - | | | | preliminary verified | | LABORATORY | | | | report. | | | | + + + + + + | ALT | 43Comment: This is an | 6 - 45 [...] + + + + | Alkaline | 181 (H)Comment: This is | 40 - 110 U/L | [facility] | | | Phosphatase | an appended report. | | [facility] | | | | These results have been | | MEDICAL | | | | appended to a previously | | CENTER - | | | | preliminary verified | | LABORATORY | | | | report. | | | | + + + + + + | Globulin | 4.5 (H) | 2.1 - 3.8 g/dL | [facility] | | | | | | [facility] | | | | | | [facility] | | | | | | C[facility] - | | | | | | LABORATORY | | + + + + + + | Albumin/Alessia | 0.6 (L) | 0.8 - 2.0 | [facility] | | | bulin Ratio | | | [facility] | | | | | | [facility]ICAL | | | | | | CENTER - | | | | | | LABORATORY | | + + + + + + | BUN/Creatin | 12.5 | | [facility] | | | ine [...] [address] | [place] | [phone] | | [facility] | | [address] | | | - LABORATORY | | | | + + + + + CBC with Differential (08/03/2017 1:37 AM PDT) + + + + + + | Component | Value | Ref Range | Performed | Pathologist | | | | | At | Signature | + + + + + + | WBC | 22.0 (H) | 4.0 - 11.0 K/uL | [facility] | | | | | | [facility] | | | | | | [facility] | | | | | | CENTER - | | | | | | LABORATORY | | + + + + + + | RBC | 4.91 | 4.30 - 5.70 | [facility] | | | | | M/uL | [facility] | | | [facility] | | MEDICAL | | | | | | CENTER - | | | | | | LABORATORY | | + + + + + + | Hemoglobin | 16.0 | 13.5 - 18.0 | [facility] | | | | | g/dL | [facility] | | | | | | MEDICAL | | | | | | CENTER - | | | | | | LABORATORY | | + + + + + + | Hematocrit | 46.3 | 40.0 - 51.0 % | [facility] | | | | | | [facility] | | | | | | [facility] | | | | | | CENTER - | | | | | | LABORATORY | | + + + + + + | MCV | 94.3 | 83.0 - 101.0 fL | [facility] | | | | | | [facility] | | | | | | [facility]ICAL | | | | | | CENTER - | | | | | | LABORATORY | | + + + + + + | MCH | 32.6 | 28.0 - 35.0 pg | [facility] | | | | | | [facility] | | | | | | [facility] | | | | | | CENTER - | | | | | | LABORATORY | | + + + + + + | MCHC | 34.6 | 32.0 - 36.0 | [facility] | | | | | g/dL | [facility] | | | | | | MEDICAL | | | | | | CENTER - | | | | | | LABORATORY | | + + + + + + | RDW-CV | 14.7 | <15.0 % | [facility] | | | | | | [facility] | | | | | | [facility]ICAL | | | | | | CENTER - | | | | | | LABORATORY | | + + + + + + | Platelet | 185 | 140 - 440 K/uL | [facility] | | | Count | | | [facility] | | | | | | [facility]ICAL | | | | | | CENTER - | | | | | | LABORATORY | | + + + + + + | MPV | 9.3 | fL | [facility] | | | | | | [facility] | | | | | | [facility] | | | | | | CENTER - | | | | | | LABORATORY | | + + + + + + | % | 80.5 | 45.0 - 82.0 % | [facility] | | | Neutrophils | | | [facility] | | | | | | MEDICAL | | | | | | CENTER - | | | | | | LABORATORY | | + + + + + + | % | 8.9 (L) | 20.0 - 45.0 % | [facility] | | | Lymphocytes | | | [facility] | | | | | | MEDICAL | | | | | | CENTER - | | | | | | LABORATORY | | + + + + + + | % Monocytes | 9.7 | 4.0 - 12.0 % | [facility] | | | | | | [facility] | | | | | | MEDICAL | | | | | | CENTER - | | | | | | LABORATORY | | + + + + + + | % | 0.7 | 0.0 - 5.0 % | [facility] | | | Eosinophils | | | [facility] | | | | | | MEDICAL | | | | | | CENTER - | | | | | | LABORATORY | | + + + + + + | % Basophils | 0.2 | 0.0 - 1.0 % | [facility] | | | | | | [facility] | | | | | | MEDICAL | | | | | | CENTER - | | | | | | LABORATORY | | + + + + + + | Absolute | 17.70 (H) | 1.80 - 8.50 | [facility] | | | Neutrophils | | K/uL | [facility] | | | | | | MEDICAL | | | | | | CENTER - | | | | | | LABORATORY | | + + + + + + | Absolute | 1.90 | 0.60 - 3.20 | [facility] | | | Lymphocytes | | K/uL | [facility] | | | | | | MEDICAL | | | | | | CENTER - | | | | | | LABORATORY | | + + + + + + | Absolute | 2.10 (H) | 0.00 - 1.00 | [facility] [...] + + + + | Absolute | 0.00 | 0.00 - 0.10 | [facility] | [...] + + | [facility] | [address] | [place] | [phone] | | [facility] | | [address] | | | - LABORATORY | | | | + + + + + B Type Natriuretic Peptide (08/03/2017 1:37 AM PDT) + +-------+ + + + | Component | Value | Ref Range | Performed | Pathologist | | | | | At | Signature | + +-------+ + + + | BNP | 47 | <100 pg/mL | [facility] | | | | | | [facility] | [address] | [place] | [phone] | | [facility] | | [address] | | | - LABORATORY | | | | + + + + + ECG 12 lead (08/03/2017 1:34 AM PDT) + + + + + + | Component | Value | Ref Range | Performed | Pathologist | | | | | At | Signature | + + + + + + | VENTRICULAR | 71 | BPM | [facility] | | | RATE EKG | | | | | + + + + + + | ATRIAL RATE | 71 | BPM | [facility] | | + + + + + + | P-R | 164 | ms | [facility] | | | INTERVAL | | | | | + + + + + + | QRS | 82 | ms | [facility] | | | DURATION | | | | | + + + + + + | Q-T | 478 | ms | [facility] | | | INTERVAL | | | | | + + + + + + | Q-T | 519 | ms | [facility] | | | INTERVAL | | | | | | (CORRECTED) | | | | | + + + + + + | P WAVE AXIS | 31 | degrees | [facility] | | + + + + + + | QRS AXIS | -8 | degrees | [facility] | | + + + + + + | T AXIS | 31 | degrees | [facility] | | + + + + + + | INTERPRETAT | Normal sinus | | [facility] | | | ION TEXT | rhythmInferior infarct , | | | | | | age undeterminedLong | | | | | | QTcST & T wave | | | | | | abnormality, consider | | | | | | anterolateral | | | | | | ischemiaAbnormal ECGWhen | | | | | | compared with ECG of | | | | | | 27-APR-2017 02:38,Sinus | | | | | | rhythm has replaced | | | | | | Atrial fibrillationVent. | | | | | | rate has decreased BY | | | | | | 53 BPMBorderline | | | | | | criteria for Septal | | | | | | infarct are no longer | | | | | | presentInferior infarct | | | | | | is now presentST and T | | | | | | wave abnormalities are | | | | | | now present in | | | | | | anterolateral | | | | | | leadsConfirmed by | | | | | | ROXANNA RUEDA MD ([id number]) | | | | | | on 08/04/2017 6:28:34 AM | | | | + + [...] + | Diagnosis | + + | Abdominal pain, unspecified abdominal location - Primary | + + | Calculus of gallbladder and bile duct with acute cholecystitis without obstruction | | Calculus of gallbladder and bile duct with acute cholecystitis, without mention of | | obstruction | + + | Hepatic cirrhosis, unspecified hepatic cirrhosis type, unspecified whether ascites | | present (HCC) | + + documented in this encounter Administered Medications + +--------+ +--------+------+------+ | Medication Order | MAR | Action | Dose | Rate | Site | | | Action | Date | | | | + +--------+ +--------+------+------+ | iohexol (OMNIPAQUE 350) 350 | Given | 08/04/19 | 90 mLs | | | | mg/mL injection 90 mL 90 mL, | | 18 4:03 | | | | | Intravenous, ONCE PRN, Other, for | | AM PDT | | | | | imaging CT study, Starting Tue | | | | | | | 08/03/17 at 0402, For 1 dose, | | | | | | | Radiology | | | | | | + +--------+ +--------+------+------+ +---+---+ | | | +---+---+ + +-------+ +------+---+---+ | morphine injection 4 mg 4 mg, | Given | 08/04/19 | 4 mg | | | | Intravenous, ONCE, 08/03/17 at | | 18 3:10 | | | | | 0305, For 1 dose | | AM PDT | | | | + +-------+ +------+---+---+ +---+---+ | | | +---+---+ + +-------+ +------+---+---+ | morphine injection 4 mg 4 mg, | Given | 08/04/19 | 4 mg | | | | Intravenous, EVERY 1 HOUR PRN, | | 18 7:13 | | | | | Pain, Moderate Pain, Starting Tue | | AM PDT | | | | | 08/03/17 at 0707 | | | | | | + +-------+ +------+---+---+ +---+---+ | | | +---+---+ + +---------+ +---------+-------+---+ | piperacillin-tazobactam (ZOSYN) | New Bag | 08/04/19 | 3.375 g | 200 | | | 3.375 g in sodium chloride 0.9% | | 18 2:46 | | mL/hr | | | 100 mL IVPB 3.375 g, | | AM PDT | | | | | Intravenous, Administer over 0.5 | | | | | | | Hours, ONCE, 08/03/17 at 0235, | | | | | | | For 1 dose, Activate system and | | | | | | | mix before use., Indications: | | | | | | | Sepsis | | | | | | + +---------+ +---------+-------+---+ +---+---+ | | | +---+---+ + +---------+ +--------+-------+---+ | sodium chloride 0.9% (NS) bolus | New Bag | 08/04/19 | 1,000 | 1000 | | | 1,000 mL 1,000 mL, Intravenous, | | 18 2:45 | mLs | mL/hr | | | Administer over 1 Hours, ONCE, | | AM PDT | | | | | Jaswinder 08/03/17 at 0235, For 1 dose | | | | | | + +---------+ +--------+-------+---+ +---+---+ | | | +---+---+ documented in this encounter"
--- OUTSIDE RECORDS SUMMARY | ~2019-01-07 | XMS | Encounter Summary ---
Demographics + + + | Address | [address] | | | [place] [address] | + + + | Home Phone [...] + | Author | [facility] | + + + | Organization | [facility] | + + + | Address | Unknown | + + + | Phone | Unavailable | + + + Support + + +---------+ + | Name | Relationship | Address | Phone | + + +---------+ + | Mary Medellin | ECON | Unknown | | + + +---------+ + Care Team Providers + +------+ + | Care Inventory Assistant Name | Role | Phone | [...] | | | perforation | [address] | [address] | | | | | Procedures | Renato | [address] | | | | | CT ABDOMEN | [address] | [address] [place], | | | | | AND PELVIS | [place], [place] | [place] | | | | | [place] | [address] | [address] | | | | | CONTRAST SC | Phone: | Phone: | | | | | CT | [phone] | [phone] | | | | | ABDOMEN&PELV | Fax: | Fax: | | | | | IS | [phone] | [phone] | | | | | W/CONTRAST | | | +--------+--------+ + + + + Reason for Visit AUTH/CERT +--------+--------+ + + + + | Status [...] + + + + | 08/03/ | Hospital | [address] | Jessika Allen, | | | 2018 - | Encounter | [address] | [place] [address] [facility] | | | | | [place], [place] | [address] | | | 08/07/ | | [address] | [place], [place] | | | 2017 | | [phone] | [address] | | | | | | [phone] | | | | | | | [...] + + + | Blood Pressure | 128/77 | 08/07/2017 9:07 AM | | | | | PDT | | + + + + + | Pulse | 71 | 08/07/2017 9:07 AM | | | | | PDT | | + + + + + | Temperature | 36.6 C (97.9 F) | 08/07/2017 9:07 AM | | | | | PDT | | + + + + + | Respiratory Rate | 18 | 08/07/2017 9:07 AM | | | | | PDT | | + + + + + | Oxygen Saturation | 100% | 08/07/2017 9:07 AM | | | | | PDT | | + + + + + | Inhaled Oxygen | - | - | | | Concentration | | | | + + + + + | Weight | 93.3 kg (205 lb 11 | 08/03/2017 10:22 AM | | | | oz) | PDT | | + + + + + | Height | 180.3 cm (5' 11") | 08/03/2017 10:22 AM | | | | | PDT | | + + + + + | Body Mass Index | 28.69 | 08/03/2017 10:22 AM | | | | | PDT [...] + + documented as of this encounter Discharge Summaries Uriah Marx MD - 08/07/2017 11:17 AM PDTFormatting of this note might be different fro m the original. INPATIENT PHYSICIAN DISCHARGE SUMMARY: The Department of Surgery Author: Uriah Marx MD, PGY-1 Admitting Physician: Jessika Allen MD 08/07/2017, 11:17 AM Admission Date: 08/03/2017 Discharge Date: 07 Aug 2017 Diagnoses Principal Final Diagnosis: 1. Ruptured cholecystitis Patient Active Problem List: Hepatic cirrhosis (HCC) Chronic hepatitis C without hepatic coma (HCC) Gallbladder perforation Procedures percutaneous cholecystostomy tube placement on 08/03/17 for perforated cholecystitis Brief Hospital Course 61M with a history of CAD, DM, GERD, and cirrhosis 2/2 EtOTH/HCV with esophageal varices an d hepatic encephalopathy who was transferred from [facility]. He had presented with cholecystitis with apparent rupture, severe sepsis, and acute hepatic encephalopathy. He is sp percutane ous cholecystostomy tube placement on 08/03/17 for perforated cholecystitis. On post procedur e MRCP, demonstrated persistent 5 cm hepatic hilar abscess secondary to perforated cholecyst itis. It was not drainage via percutaneous access. Since he was doing well on oral antibioti cs and total bilirubin was down trending, he was able to discharge. Plan to follow up in 1 w hunters with pre-clinic visit CT scan. BP 128/77 | Pulse 71 | Temp 36.6 C (97.9 F) | RR 18 | Ht 1.803 m (5' 11") | Wt 93.3 kg (205 lb 11 oz) | SpO2 100% | BMI 28.69 kg/(m^2) Medications: Medication List START taking these medications oxyCODONE (immediate release) 5 mg Tab Commonly known as: ROXICODONE Take 1 to 2 tablets by mouth every four hours as needed for moderate pain. trimethoprim-sulfamethoxazole 160-800 mg Tab Commonly known as: BACTRIM DS,SEPTRA DS Take 1 tablet by mouth two times daily for 7 days. CHANGE how you take these medications lactulose 10 gram/15 mL Soln Commonly known as: ENULAC Take 30 mL by mouth four times daily. What changed: when to take this CONTINUE taking these medications * acyclovir 5 % Oint Commonly known as: ZOVIRAX Apply to affected area five times daily. PRN for outbreaks * acyclovir 800 mg Tab Commonly known as: ZOVIRAX Take 800 mg by mouth five times daily. PRN for outbreaks Cholecalciferol (Vitamin D3) 5,000 unit Cap Commonly known as: D-3-5 Take 5,000 Units by mouth once daily. CRESTOR 10 mg Tab Generic drug: rosuvastatin Take 10 mg by mouth once daily. LANTUS SOLOSTAR U-100 INSULIN 100 unit/mL (3 mL) Inpn Generic drug: insulin glargine Inject 60-80 Units under the skin (SUBC) every twelve hours. losartan 25 mg Tab Commonly known as: COZAAR Take 25 mg by mouth once daily. metFORMIN 1,000 mg Tab Commonly known as: GLUCOPHAGE Take 1,000 mg by mouth two times daily. metoprolol tartrate 25 mg Tab Commonly known as: LOPRESSOR Take 25 mg by mouth two times daily. NovoLOG Flexpen U-100 Insulin 100 unit/mL Inpn Generic drug: insulin aspart U-100 Inject three times daily per sliding scale before meals. If CBGs >150: no insulin; 150-200: 5 units; >201 10 units omeprazole 40 mg Cpdr Commonly known as: PRILOSEC Take 40 mg by mouth once daily in the morning. rifAXIMin 550 mg Tab Commonly known as: XIFAXAN Take 550 mg by mouth two times daily. * This list has 2 medication(s) that are the same as other medications prescribed for you. Read the directions carefully, and ask your doctor or other care provider to review them wit h you. STOP taking these medications HYDROcodone-acetaminophen 5-325 mg Tab Commonly known as: NORCO Diet Regular Regular diet- There are no restrictions to your diet. You may eat or drink whatever you pr efer, though healthy food choices are recommended. Activity No activity restrictions OTHER DISCHARGE ORDERS & INSTRUCTIONS If you have a fever, chills, feel worsening abdominal pain, or your drain output increases, please call the [facility] wire wrapping machine operator and ask for the E[facility] resident academic services professional. You may need to go to y our nearest emergency department to check some labs. Schedule the following appointment(s) when you get home Trauma Emergency General Surgery at [facility] On 08/13/2017. Specialty: Trauma Center Why: For wound re-check Contact information [address] [facility] Mailcode: L223a [facility] [address] [facility] [address] Additional information: [facility] 2nd floor [address]. The [facility] is the building just past [facility]. Turn r ight immediately past the Pavilion. The entrance to the garage will be on your right just be yond the main entrance to the Pavilion. Records Specialist parking is available in the [facility] Pav[facility] on , Wednesday through Wednesday, from 7 a.m. to 6 p.m. An elevator in the parking garage or in the lobby will take patients directly from the par kevin garage to the floor of the office visit. For your convenience, a pharmacy is located on the 1st floor of the building. The Trauma Clinic is located on the 2nd floor in [address]. Please check in at the front d esk. Outstanding labs/studies: None Discharging Physician: URIAH MARX MD Attending Physician: Jessika Allen MD PCP: [place] [id number] EGS Associated attestation - Herminio Still MD,PhD - 08/07/2017 9:33 PM PDTEmergency General [facility]/Trauma Attending Addendum Date of Service: 08/07/2017 I saw and examined Bret Espinal Jr. ([id number]) with the resident and agree with the assess ment and plan as outlined in this note and participated in the planning of care. Mr. Espinal is stable for discharge today. We will plan to see him back in clinic in a week with a pre-clinic ct to re-eval the perihilar fluid collection/abscess. Herminio Still MD, PhD, FACS medical office assistant instructor Division of Trauma, Critical Care & Acute Care Surgery [facility] [phone] documented in this encounter Medications at Time [...] documented as of this encounter Progress Notes Uriah Marx MD - 08/07/2017 7:52 AM [facility] GENERAL SURGERY Mr. Espinal is a 61 year old male with a history of CAD, DM, GERD, and cirrhosis 2/2 EtOTH/ HCV with esophageal varices and hepatic encephalopathy who was transferred from [facility]. He had presented with cholecystitis with apparent rupture, severe sepsis, and acute hepatic enceph alopathy. Interval: Looks great today Feeling much better, not confused. Exam: BP 134/84 | Pulse 84 | Temp 37.5 C (99.5 F) | RR 20 | Ht 1.803 m (5' 11") | Wt 93 .3 kg (205 lb 11 oz) | SpO2 99% | BMI 28.69 kg/(m^2) gen: walking the halls Chest: normal WOB on RA abd: slightly ttp, non distended, slightly purulent outpt, total 25 LE: no edema A/P: 61M with a history of CAD, DM, GERD, and cirrhosis 2/2 EtOTH/HCV with esophageal varic es and hepatic encephalopathy who was transferred from OSH. He had presented with cholecyst itis with apparent rupture, severe sepsis, and acute hepatic encephalopathy. hypoNa (on free water restriction), ammonia continues to be elevated at 48, otherwise CBC w nl T bili is improving 2.2 to 1.5 ! Culture- e coli from 08/03 MRCP 08/05/17 IMPRESSION: 1. Upper common bile duct stricture due to external compression by a persistent 5 cm hepati c hilar abscess secondary to perforated cholecystitis. 2. Decompressed gallbladder and smaller perforated collections along the fundus in the gall bladder body after cholecystostomy. 3. Variant biliary anatomy with low insertion of the cystic duct; no evidence of Mirizzi syndrome. I have personally reviewed the images and, if necessary, edited the report. I agree with e report as now presented. Ruptured gallbladder Sp IR drain placement 08/04/19; this will remain in place for several weeks Provide pt w drain teaching while inpatient Continue bactram Discussed persistent hepatic hilar abscess w IR, they do not have a safe window, see note f rom 08/06 GI states he may benefit from a CBD stent in setting of worsening sx, or increasing bilirub in (above 4) Now w increased lantus, but bc patient was NPO overnight, this was 1/2, therefore CBGs poor ly controlled this am. Pain control w oxy acute hepatic encephalopathy Lactulose increased Bowel reg Dc today, follow up Wednesday w pre clinic [place] [id number] EGS Associated attestation - Herminio Still MD,PhD - 08/07/2017 9:34 PM PDTEmermercy emergency department General [facility]/Trauma Attending Addendum Date of Service: 08/07/2017 I saw and examined Bret Espinal Jr. ([id number]) with the resident and agree with the assess ment and plan as outlined in this note and participated in the planning of care. Herminio Still MD, PhD, FACS medical office assistant instructor Division of Trauma, Critical Care & Acute Care Surgery [facility] [phone] Uriah Marx MD - 08/06/2017 11:52 AM [facility] Mr. Espinal is a 61 year old male with a history of CAD, DM, GERD, and cirrhosis 2/2 EtOTH/ HCV with esophageal varices and hepatic encephalopathy who was transferred from [facility]. He had presented with cholecystitis with apparent rupture, severe sepsis, and acute hepatic enceph alopathy. Interval: Pain is well controlled Confused about time and place Exam: BP 146/74 | Pulse 61 | Temp 37.7 C (99.9 F) | RR 16 | Ht 1.803 m (5' 11") | Wt 93 .3 kg (205 lb 11 oz) | SpO2 100% | BMI 28.69 kg/(m^2) gen: walking the halls Chest: normal WOB on RA abd: slightly ttp, non distended, slightly purulent outpt, total 125 LE: no edema A/P: 61M with a history of CAD, DM, GERD, and cirrhosis 2/2 EtOTH/HCV with esophageal varic es and hepatic encephalopathy who was transferred from OSH. He had presented with cholecyst itis with apparent rupture, severe sepsis, and acute hepatic encephalopathy. hypoNa (on free water restriction), ammonia continues to be elevated at 48, otherwise CBC w nl Culture- e coli from 08/03 MRCP 08/05/17 IMPRESSION: 1. Upper common bile duct stricture due to external compression by a persistent 5 cm hepati c hilar abscess secondary to perforated cholecystitis. 2. Decompressed gallbladder and smaller perforated collections along the fundus in the gall bladder body after cholecystostomy. 3. Variant biliary anatomy with low insertion of the cystic duct; no evidence of Mirizzi syndrome. I have personally reviewed the images and, if necessary, edited the report. I agree with e report as now presented. Ruptured gallbladder Sp IR drain placement 08/04/19; this will remain in place for several weeks Provide pt w drain teaching while inpatient Zosyn => bactram today Discussed persistent hepatic hilar abscess w IR, they do not have a safe window, see note GI states he may benefit from a CBD stent, this will not be today, diet given, NPO mn for p ossible placement tomorrow Increase lactulose for confusion Increase lantus for poorly controlled CBG Pain control w oxy Dc IV morphine acute hepatic encephalopathy Lactulose increased Bowel reg Anticipate dc early [place] p [id number] EGS Associated attestation - Herminio Still MD,PhD - 08/07/2017 9:34 PM PDTEmergency General [facility] r[facility]/Trauma Attending Addendum Date of Service: 08/06/2017 I saw and examined Bret Espinal Jr. ([id number]) with the resident and agree with the assess ment and plan as outlined in this note and participated in the planning of care. Herminio Still MD, PhD, FACS medical office assistant instructor Division of Trauma, Critical Care & Acute Care Surgery [facility] [phone] Cherise Bhatti MD - 08/06/2017 11:31 AM PDTIR Brief Note IR re-consulted re: abdominal drain placement. Briefly, he is a 61 year-old male s/p percut aneous cholecystostomy tube placement on 08/03/17 for perforated cholecystitis. He has histor y of cirrhosis and CAD thus making him a poor surgical candidate. MRCP obtained 08/05/17 to e valuate for choledocholithiasis demonstrates a persistent 5 cm hilar fluid collection and sm all collection adjacent to GB body. Patient is afebrile, resolved leukocytosis, and transiti oned to oral IV antibiotics. Independent review of imaging demonstrates no safe percutaneous window to the dominant flui d collection in the hepatic hilum. Smaller collection near the gallbladder fossa is not amen able to drainage catheter placement given size. We would be unable to manipulate the cholecy stostomy tube into the hilar collection as the drain was placed into the gallbladder lumen. At this time we recommend maintaining cholecystostomy tube to gravity and continued conserva tive management of collections. The dominant hilar collection may be amenable to a transduod enal approach via endoscopy but we would defer this approach to GI. D/w Dr. Yepez. Cherise Bhatti MD IR Fellow 08/06/17 11:36 AM Justo Keen MD - 08/06/2017 9:12 AM PDT Gastroenterology Follow-Up Note Date: 08/06/2017 IMPRESSION/PLAN: Bret Espinal Jr. is a 61 y.o. male with a past medical history significant for severe 3v C AD not amenable to stenting, a-fib, T2DM, DARIEL, and decompensated HCV/ETOH cirrhosis with kno wn HE on lactulose and small EV without prior bleed, who was transferred from an OSH today w ith sepsis 2/2 ruptured gallbladder and cholecystitis. GI is consulted for possible choledoc holithiasis given mildly dilated CBD and abnormal LFTs. His primary issue is the perforated gallbladder and resultant intra-abdominal abscess, and pt underwent urgent cholecystostomy t ube placement via IR 08/03 with much improved clinical status. He is at very high risk for a ny surgical interventions both from a cardiac and liver standpoint (Child Class B). LFTs wit h initial improvement after cholecystostomy tube placement with subsequent rise once more. MRCP 08/05 with extrinsic compression of CHD via external fluid collection, no choledocholith iasis. IR does not feel there is a window for now percutaneous drain placement into the flui d collection and does not feel that manipulation of the current cholecystostomy tube would a ddress the brian hepatis collection. There are no endoscopic drainage options based on curr ent size and location. Stenting of the externally compression causing CHD stricture would b e indicated in the setting of clinical concern for cholangitis or if bili continues to trend upwards to levels above 4. - Daily LFTs We will continue to follow peripherally. This plan was discussed and formulated with the [facility] stroenterology attending, Dr. Bernabe. Please call the on-call GI fellow with any questions . Justo Roche MD Fellow, Gastroenterology Pager: [phone] INTERVAL HISTORY: MRCP overnight with extrinsic compression of CHD via external fluid collection, no choledoc holithiasis Blood culture with NGTD LFTs roughly the same today compared to yesterday EXAM BP 146/74 | Pulse 61 | Temp 37.7 C (99.9 F) | RR 16 | Ht 1.803 m (5' 11") | Wt 93.3 kg (205 lb 11 oz) | SpO2 100% | BMI 28.69 kg/(m^2) Systolic (24hrs), Av , Min:132 , Max:146 Diastolic (24hrs), Av, Min:69, Max:79 GEN: NAD HEENT: MMM, no scleral icterus ABD: mild RUQ tenderness, cholecystostomy tube in place, non distended, no rebound or guard ing, normal BS MSK: no peripheral edema CBC with diff last 72 hours (or 3 results) - Refreshable Recent Labs 08/03/17 1129 08/04/17 0908/05/17 0958 08/06/17 0648 WBC 16.10* < > 16.06* 14.74* 10.50 HB 13.6 < > 12.2* 13.3* 12.2* HCT 39.8* < > 35.7* 39.5* 35.7* PLT 134* < > 97* 136* 83* NEUTROPERC 80.4* -- -- -- -- LYMPHPERC 9.5* -- -- -- -- MONOPERC 8.4 -- -- -- -- BASOPERC 0.4 -- -- -- -- EOSPERC 0.6* -- -- -- -- < > = values in this interval not displayed. Recent Labs 08/04/1792008/05/17 0958 08/05/17 2132 08/06/17 0611 08/06/17 0648 NA 139 -- 133* -- -- -- 134* K 4.1 -- 4.1 -- -- -- 4.1 CL 108 -- 102 -- -- -- 103 BICARB 23 -- 21 -- -- -- 23 BUN 24* -- 19 -- -- -- 13 CR 1.08 -- 1.05 -- -- -- 0.83 GLU 131* < > 269* < > 255* 229* 202* CA 8.0* -- 8.5* -- -- -- 8.0* AST 44* -- 61* -- -- -- 39 ALT 43 -- 52 -- -- -- 39 AP 153* -- 188* -- -- -- 167* TBILI 2.1* -- 2.4* -- -- -- 2.2* TP 5.8* -- 6.8 -- -- -- 5.9* ALB 1.9* -- 2.2* -- -- -- 1.9* ANIONGAP 8 -- 10 -- -- -- 8 ANIONALBCOR 13* -- 14* -- -- -- 13* < > = values in this interval not displayed. Lab Results Component Value Date INRPT 1.15 08/03/2017 08/03/17 CT AP: 1. Findings consistent with perforated cholecystitis with 3 separate pericho lecystic collections containing extruded gallstones. 2. Mild intrahepatic biliary dilation appears new since April. No definite choledocholithia sis. Biliary dilation may be from external compression of the common duct by the hilar colle ction. Correlate with bilirubin trend. 3. Cirrhosis and portal hypertension. No ascites MRCP 08/05: Extrinsic compression of CHD via external fluid collection, no choledocholithias is Associated attestation - Jaleel Bernabe MD - 08/06/2017 1:48 PM PDT Attending Attestation: I personally interviewed the patient, performed the relevant elements of the physical exami nation, and formulated the assessment and plan with Dr. Roche on 08/06/[address]. [address] Roche's note for further details. Jaleel Bernabe MD [facility] [address] [place] [address] [facility] DEPARTMENT: GI - [phone] Place of Service: HOSP CSN: [id number] Suggested Modifiers: GC - Resident Involved Suggested Level of Care: 01085 - Subsequent, Prob Foc/low complex 15 min Uriah Marx MD - 08/05/2017 8:09 AM [facility] Mr. Espinal is a 61 year old male with a history of CAD, DM, GERD, and cirrhosis 2/2 EtOTH/ HCV with esophageal varices and hepatic encephalopathy who was transferred from [facility]. He had presented with cholecystitis with apparent rupture, severe sepsis, and acute hepatic enceph alopathy. Interval: Pain is well controlled Tolerating regular diet Very anxious about MRCP later tonight Exam: BP 142/78 | Pulse 92 | Temp 37 C (98.6 F) | RR 16 | Ht 1.803 m (5' 11") | Wt 93.3 kg (205 lb 11 oz) | SpO2 97% | BMI 28.69 kg/(m^2) gen: walking the halls Chest: normal WOB on RA abd: slightly ttp, non distended, slightly purulent outpt, total 115 LE: no edema A/P: 61M with a history of CAD, DM, GERD, and cirrhosis 2/2 EtOTH/HCV with esophageal varic es and hepatic encephalopathy who was transferred from OSH. He had presented with cholecyst itis with apparent rupture, severe sepsis, and acute hepatic encephalopathy. Labs pending Culture- gram negative bacilli Ruptured gallbladder Sp IR drain placement 08/04/19; this will remain in place for several weeks Provide pt w drain teaching while inpatient Continue zosyn Pain control w iv morphine and oxy On subQ insulin w CBG around 200, this is good per pt Per GI- MRCP overnight, will need anxiolytic to help w this acute hepatic encephalopathy Lactulose Bowel reg Anticipate dc in 1-2 [place] p [phone] EGS ojaki, Rylan Sinclair D - 08/05/2017 5:47 AM PDT Gastroenterology Follow-Up Note Date: 08/05/2017 IMPRESSION/PLAN: Bret Espinal Jr. is a 61 y.o. male with a past medical history significant for severe 3v C AD not amenable to stenting, a-fib, T2DM, DARIEL, and decompensated HCV/ETOH cirrhosis with kno wn HE on lactulose and small EV without prior bleed, who was transferred from an OSH today w ith sepsis 2/2 ruptured gallbladder and cholecystitis. GI is consulted for possible choledoc holithiasis given mildly dilated CBD and abnormal LFTs. His primary issue is the perforated gallbladder and resultant intra-abdominal abscess, and pt underwent urgent cholecystostomy t ube placement via IR 08/03 with much improved clinical status. He is at very high risk for a ny surgical interventions both from a cardiac and liver standpoint (Child Class B). His CT s can is not impressive for obvious CBD stone. This can be further investigated via MRCP. - MRCP to assess for choledocholithiasis We will continue to follow. This plan was discussed and formulated with the Gastroenterolog y attending, Dr. Bender. Please call the on-call GI fellow with any questions. Justo Roche MD Fellow, Gastroenterology Pager: [phone] INTERVAL HISTORY: Hemodynmaics stable E coli in gallbladder aspirate Blood culture with NGTD EXAM BP 141/69 | Pulse 65 | Temp 36.7 C (98.1 F) | RR 16 | Ht 1.803 m (5' 11") | Wt 93.3 kg (205 lb 11 oz) | SpO2 100% | BMI 28.69 kg/(m^2) Systolic (24hrs), Av , Min:134 , Max:166 Diastolic (24hrs), Av, Min:68, Max:85 GEN: NAD HEENT: MMM, no scleral icterus ABD: mild RUQ tenderness, cholecystostomy tube in place, non distended, no rebound or guard ing, normal BS MSK: no peripheral edema CBC with diff last 72 hours (or 3 results) - Refreshable Recent Labs 08/03/17112808/03/17210808/04/17 0921 08/05/17 0958 WBC 16.10* 13.69* 16.06* 14.74* HB 13.6 13.8 12.2* 13.3* HCT 39.8* 40.3* 35.7* 39.5* PLT 134* 137* 97* 136* NEUTROPERC 80.4* -- -- -- LYMPHPERC 9.5* -- -- -- MONOPERC 8.4 -- -- -- BASOPERC 0.4 -- -- -- EOSPERC 0.6* -- -- -- Recent Labs 08/03/17112808/03/17210808/04/17 0921 08/05/17 0833 08/05/17 0958 08/05/17 1320 NA 136 -- 139 -- 139 -- -- 133* -- K 4.8 -- 3.8 -- 4.1 -- -- 4.1 -- CL 106 -- 108 -- 108 -- -- 102 -- BICARB 21 -- 19* -- 23 -- -- 21 -- BUN 18 -- 19 -- 24* -- -- 19 -- CR 0.98 -- 1.04 -- 1.08 -- -- 1.05 -- GLU 337* < > 155* < > 131* < > 228* 269* 262* CA 8.2* -- 8.3* -- 8.0* -- -- 8.5* -- AST 57* -- -- -- 44* -- -- 61* -- ALT 50 -- -- -- 43 -- -- 52 -- AP 190* -- -- -- 153* -- -- 188* -- TBILI 2.9* -- -- -- 2.1* -- -- 2.4* -- TP 6.7 -- -- -- 5.8* -- -- 6.8 -- ALB 2.3* -- -- -- 1.9* -- -- 2.2* -- ANIONGAP 9 -- 12* -- 8 -- -- 10 -- ANIONALBCOR 13* -- -- -- 13* -- -- 14* -- < > = values in this interval not displayed. Lab Results Component Value Date INRPT 1.15 08/03/2017 08/03/17 CT AP: 1. Findings consistent with perforated cholecystitis with 3 separate pericho lecystic collections containing extruded gallstones. 2. Mild intrahepatic biliary dilation appears new since April. No definite choledocholithia sis. Biliary dilation may be from external compression of the common duct by the hilar colle ction. Correlate with bilirubin trend. 3. Cirrhosis and portal hypertension. No ascites Associated attestation - Mirza Bender MD - 08/05/2017 3:03 PM PDTAttending Attestati on: I personally interviewed the patient, performed the relevant elements of the physical exami nation, and formulated the assessment and plan with the resident and fellow. See their kiko ched note for further details. Mirza Bender MD [facility] [employer] G[facility] Hepatology Uriah Marx MD - 08/04/2017 9:37 AM [facility] Mr. 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 He had presented with cholecystitis with apparent rupture, severe sepsis, and acute hepatic enceph alopathy. Interval: Pain is well controlled Tolerating regular diet Exam: BP 147/73 | Pulse 73 | Temp 36.4 C (97.5 F) | RR 18 | Ht 1.803 m (5' 11") | Wt 93 .3 kg (205 lb 11 oz) | SpO2 100% | BMI 28.69 kg/(m^2) gen: walking the halls Chest: normal WOB on RA abd: slightly ttp, non distended, pigtail drain in place w 75 out LE: no edema A/P: 61M with a history of CAD, DM, GERD, and cirrhosis 2/2 EtOTH/HCV with esophageal varic es and hepatic encephalopathy who was transferred from OSH. He had presented with cholecyst itis with apparent rupture, severe sepsis, and acute hepatic encephalopathy. Ruptured gallbladder Sp IR drain placement 08/04/19; this will remain in place for several weeks Provide pt w drain teaching while inpatient Continue zosyn Pain control w iv morphine and oxy On endotool=> plan to transition this PM to subQ insulin Per GI- consider MRCP overnight acute hepatic encephalopathy Lactulose Bowel reg Anticipate dc in 1-2 days [place] [phone] EGS Associated attestation - Herminio Still MD,PhD - 08/04/2017 6:02 PM PDTEmergency General Hines rgery/Trauma Attending Addendum Date of Service: 08/04/2017 I saw and examined Bret Espinal . ([id number]) with the resident and agree with the assess ment and plan as outlined in this note and participated in the planning of care. Continue with diet. Will need to leave the cholecystostomy tube in place for several weeks. MRCP per GI recs. Herminio Still MD, PhD, FACS medical office assistant instructor Division of Trauma, Critical Care & Acute Care Surgery [facility] [phone] Justo Roche MD - 08/04/2017 6:29 AM PDTFormatting of this note might be different f rom the original. Gastroenterology Follow-Up Note Date: 08/04/2017 IMPRESSION/PLAN: Bret Espinal Jr. is a 61 y.o. male with a past medical history significant for severe 3v C AD not amenable to stenting, a-fib, T2DM, DARIEL, and decompensated HCV/ETOH cirrhosis with kno wn HE on lactulose and small EV without prior bleed, who was transferred from an OSH today w ith sepsis 2/2 ruptured gallbladder and cholecystitis. GI is consulted for possible choledoc holithiasis given mildly dilated CBD and abnormal LFTs. His primary issue is the perforated gallbladder and resultant intra-abdominal abscess, and pt underwent urgent cholecystostomy t ube placement via IR 08/03 with much improved clinical status. He is at very high risk for a ny surgical interventions both from a cardiac and liver standpoint (Child Class B). His CT s can is not impressive for obvious CBD stone. This can be further investigated at a later pedrito e by cholangiogram via cholecystomy tube if cystic duct is patent, or MRCP. - Repeat LFTs today - MRCP vs cholangiogram via IR to evaluate for concomitant choledocholithiasis We will continue to follow. This plan was discussed and formulated with the Gastroenterolog y attending, Dr. Bender. Please call the on-call GI fellow with any questions. Justo Roche MD Fellow, Gastroenterology Pager: [phone] INTERVAL HISTORY: 10.2 Fr chholecystostomy tube placced with 240 mL pus aspirated Post procedure severe RUQ pain and rigors, much improved with tylenol and morphine overnigh t Hemodynmaics stabilized overnight WBC 13s from 16s GNBs in gallbladder aspirate LFTs downtrending EXAM BP 101/56 | Pulse 67 | Temp 36.7 C (98.1 F) | RR 20 | Ht 1.803 m (5' 11") | Wt 93.3 kg (205 lb 11 oz) | SpO2 100% | BMI 28.69 kg/(m^2) Systolic (24hrs), Av , Min:101 , Max:182 Diastolic (24hrs), Av, Min:55, Max:131 Pulse Av.1 Min: 58 Max: 177 Temp Av.7 C (98 F) Min: 36.3 C (97.3 F) Max: 37.5 C (99.5 F) Resp Av.3 Min: 14 Max: 24 SpO2 Av.8 % Min: 84 % Max: 100 % GEN: NAD HEENT: MMM, no scleral icterus CV: RRR ABD: mild RUQ tenderness, cholecystostomy tube in place, non distended, no rebound or guard ing, normal BS MSK: no peripheral edema CBC with diff last 72 hours (or 3 results) - Refreshable Recent Labs 08/03/17 11208/03/17 210 WBC 16.10* 13.69* HB 13.6 13.8 HCT 39.8* 40.3* PLT 134* 137* NEUTROPERC 80.4* -- LYMPHPERC 9.5* -- MONOPERC 8.4 -- BASOPERC 0.4 -- EOSPERC 0.6* -- Recent Labs 08/03/17 1129 08/03/17 2109 08/04/17 0204 08/04/17 0359 08/04/17 0604 NA 136 -- 139 -- -- -- -- K 4.8 -- 3.8 -- -- -- -- CL 106 -- 108 -- -- -- -- BICARB 21 -- 19* -- -- -- -- BUN 18 -- 19 -- -- -- -- CR 0.98 -- 1.04 -- -- -- -- GLU 337* < > 155* < > 155* 157* 146* CA 8.2* -- 8.3* -- -- -- -- AST 57* -- -- -- -- -- -- ALT 50 -- -- -- -- -- -- AP 190* -- -- -- -- -- -- TBILI 2.9* -- -- -- -- -- -- TP 6.7 -- -- -- -- -- -- ALB 2.3* -- -- -- -- -- -- ANIONGAP 9 -- 12* -- -- -- -- ANIONALBCOR 13* -- -- -- -- -- -- < > = values in this interval not displayed. Lab Results Component Value Date INRPT 1.15 08/03/2017 08/03/17 CT AP: 1. Findings consistent with perforated cholecystitis with 3 separate pericho lecystic collections containing extruded gallstones. 2. Mild intrahepatic biliary dilation appears new since April. No definite choledocholithia sis. Biliary dilation may be from external compression of the common duct by the hilar colle ction. Correlate with bilirubin trend. 3. Cirrhosis and portal hypertension. No ascites Associated attestation - Mirza Bender MD - 08/04/2017 3:15 PM PDTAttending Attestati on: I personally interviewed the patient, performed the relevant elements of the physical exami nation, and formulated the assessment and plan with the resident and fellow. See their kiko ched note for further details. Mirza Bender MD [employer] Gastroenterology and Hepatology Santosh Fallon MD - 08/03/2017 8:08 PM PDT S: Called to bedside due to severe RUQ post-procedural pain with tachycardia to 130s and HT N with SBPs to 170s with patient shivering and appearing "shocky" per nursing staff. Patient states that he has severe RUQ pain which was not present prior to the procedure. O: Last Vitals: BP 165/131 | Pulse 123 | Temp 36.6 C (97.9 F) | RR 15 | Ht 1.803 m (5' 11" ) | Wt 93.3 kg (205 lb 11 oz) | SpO2 89% | BMI 28.69 kg/(m^2) 24 Hour Vital Min/Max: Systolic (24hrs), Av , Min:128 , Max:182 Diastolic (24hrs), Av, Min:60, Max:131 Pulse Min: 58 Max: 125 Temp Min: 36.5 C (97.7 F) Max: 36.6 C (97.9 F) Resp Min: 14 Max: 24 SpO2 Min: 89 % Max: 99 % Intake/Output Summary (Last 24 hours) at 08/03/172011 Last data filed at 08/03/17 1841 Gross per 24 hour Intake 518.43 ml Output 715 ml Net -196.57 ml Gen: appears in extremis, only intermittently responding to questions Pulm: RR normal, not auscultated CV: tachycardic to 120s, 2+ radial pulses Abd: Cystostomy tube draining bilious fluid with slight sanguinous tinge. Abdomen with volu ntary guarding, no peritoneal signs. Tense but not grossly distended. Skin blanches slightly with pressure. TTP in RUQ, only mildly tender or nontender in LUQ, LLQ, RLQ. A/P: #Postoperative pain: Unlikely to be in shock given his high blood pressures. More likely pa in related to his procedure tonight. Patient is currently on tylenol PRN and morphine 1-3 mg . - Changed tylenol to 1000 mg TID scheduled from [id number] - Gave 2 mg morphine IV - Can consider increased frequency if he continues to have severe pain - 500 mL LR fluid bolus - EKG and troponin (denies chest pain currently, but family states he may have had some imm ediately post-op, ordering given unclear history and severe CAD) - EKG with sinus tachycardia, multiple PVCs, and stable age-indeterminate inferior infarct - troponin pending - CBC, BMP - CXR (assess position of gastrostomy tube, mediastinal contour, and lungs) - Blood cultures - Demerol if he continues to shiver, possibly related to procedural sedation - Will continue to monitor Please don't hesitate to contact me if there are concerns. Santosh Fallon, PGY-1 Trauma Surgery [id number] Update 9:45 pm: Patient is doing much better at this time. Pain well controlled. He is able to get up and a mbulate to the bathroom with assist. Tachycardia improved to 104, temp improved from 99.5 to 97.5. CBC showing slightly improved WBC from 16.1-->13.7. Stable crit at 40.3. Portable x-r ay is pending. Troponin has not returned, but EKG reassuring. No shivering so will not give demerol. Blood Cx drawn and pending. Remains on zosyn. - Continue current management as above, will follow up labs and CXR - Please page with any concerns Santosh Fallon, PGY-1 Trauma Surgery [id number] signed by Santosh Fallon MD at 08/03/2017 9:52 PM Cherise Wylie M D - 08/03/2017 6:42 PM PDTInterventional Radiology Post-Procedure Note 08/03/2017 6:42 PM Procedure Performed: Drainage Tube Providers: IR Attending: CHRISSIE MONTEIRO IR Fellow: CHERISE BHATTI Access: Side: Right Site: Non-Vascular Non-vascular: Abdomen Procedure Details: Procedure: Placement Location: Abdomen Indication: Other Other: Gallbladder Volume Aspirated (mL): 240 Complications: None Findings, Impressions, and Recommendations: Successful placement of a 10.2-F MPD cholecystostomy tube. 240 mL of pus was aspirated and a specimen was sent for culture. Tube was connected to gravity drainage. Full report for this procedure can be found in [facility], under the results review tab for ([facility]) Interventional Radiology. Alternatively, they can be found in [facility] under tony rt review, imaging tab. Full report can also be found in [email or web address] as REPORT under the specifie d procedure. Please call IR for any questions. Please see fully dictated report for further details. Cherise Wylie MD - 08/03/2017 6:41 PM PDTIR Post Sedation Note Maximum level of sedation achieved during the procedure: 2 Moderately sedated, easily arous ed with light tactile stimulation Current level of sedation: 1 Minimally sedated, appropriate response to voice BP 135/60 | Pulse 88 | Temp 36.6 C (97.9 F) | RR 16 | Ht 1.803 m (5' 11") | Wt 93.3 kg (205 lb 11 oz) | SpO2 97% | BMI 28.69 kg/(m^2) Access site: RU The patient is recovered from moderate (conscious) sedation with an appropriate level of pa in control. Cherise Wylie MD - 08/03/2017 1:20 PM PDT INTERVENTIONAL RADIOLOGY PRE-PROCEDURE HISTORY AND PHYSICAL LOCATION: 4A SEX: Male AGE: 61 y.o. : 1955 PROCEDURE PLANNED: Percutaneous cholecystostomy tube placement HISTORY OF PRESENT ILLNESS: 61 year-old male with acute calculous cholecystitis c/b acute focal perforation presenting for percutaneous cholecystostomy tube placement. Patient is a poor surgical candidate due to HCV/EtOH cirrhosis c/b esophageal varices/HE and severe CAD. ADVERSE DRUG REACTIONS: Allergies Allergen Reactions Hydromorphone Anxiety, Confusion and Delirium RED FLAGS: None TAKING ANTICOAGULANT OR METFORMIN? No PREMEDICATIONS NEEDED: None LABORATORY: Lab Results Component Value Date WBC 16.10 (H) 08/03/2017 HCT 39.8 (L) 08/03/2017 PLT 134 (L) 08/03/2017 Lab Results Component Value Date NA 136 08/03/2017 K 4.8 08/03/2017 CL 106 08/03/2017 BICARB 21 08/03/2017 BUN 18 08/03/2017 CR 0.98 08/03/2017 GLU 337 (H) 08/03/2017 TBILI 2.9 (H) 08/03/2017 Lab Results Component Value Date INRPT 1.15 08/03/2017 FOCUSED PHYSICAL EXAMINATION: SIGNIFICANT FINDINGS GENERAL BMI:Body mass index is 28.69 kg/m. HEENT wnl HEART wnl LUNGS wnl ABDOMEN soft, mild RUQ TTP on deep palpation EXTREMITIES wnl NEURO wnl Ht 1.803 m (5' 11"), Wt 93.3 kg (205 lb 11 oz), BP 128/71, Pulse 59, Temperature 36.5 C ( 97.7 F), RR 16, SpO2 97%, BMI 28.69 kg/(m^2). Pulse Examination LEFT RIGHT Carotid Brachial Radial Femoral Popliteal Dorsalis Pedis Posterior Tibial PLANNED ACCESS POINT(S): RUQ CURRENT LEVEL OF PAIN: Mild PLANNED LEVEL OF SEDATION: Moderate PRESENT P.O. STATUS: NPO PRE-SEDATION EVALUATION HISTORY: Are you having breathing problems today? no Are you having chest pain or discomfort today? no Have you had a prior history of difficult intubation or ventilation? no Do you have noisy breathing (stridor)? no Do you snore? no Do you have documented sleep apnea? no Previous sedation/anesthesia experience and NPO status documented on nursing note, which I have reviewed. Patient Active Problem List Diagnosis Hepatic cirrhosis (HCC) Chronic hepatitis C without hepatic coma (HCC) Gallbladder perforation Airway Examination: normal airway ASA Status: 3. Assessment: I have reviewed Mr. Espinal's history and and conducted the physical examination as simonn dominik above. This patient is appropriate for moderate sedation. Mr. Espinal has provided written consent for sedation with this procedure. Plan: Percutaneous cholecystostomy tube placement under moderate sedation Cherise Bhatti MD Pager: [phone] [facility] No past medical history on file. No past surgical history on file. Current Medication List Name Sig AMOXICILLIN 875 [...] Take 10 mg by mouth once daily. documented in this en counter Plan of [...] | + +--------+ + + + | CAPILLARY BLOOD | Routin | 08/07/2017 | Gallbladder | Results for this | | GLUCOSE (NO CHG), | e | 12:55 PM | perforation | procedure are in the | | POC | | PDT | | results section. | + +--------+ + + + | CAPILLARY BLOOD | Routin | 08/07/2017 | Gallbladder | Results for this | | GLUCOSE (NO CHG), | e | 8:53 AM | perforation | procedure are in the | | POC | | PDT | | results section. | + +--------+ + + + | CBC (HEMOGRAM) ONLY | Routin | 08/07/2017 | | Results for this | | | e | 6:14 AM | | procedure are in the | | | | PDT | | results section. | + +--------+ + + + | COMPLETE METABOLIC | Routin | 08/07/2017 | | Results for this | | SET | e | 6:14 AM | | procedure are in the | | (NA,K,CL,CO2,BUN,CRE | | PDT | | results section. | | AT,GLUC,CA,AST,ALT,B | | | | | | NIC TOTAL,ALK | | | | | | PHOS,ALB,PROT TOTAL) | | | | | + +--------+ + + + | CBC ONLY | Routin | 08/07/2017 | | Results for this | | | e | 6:14 AM | | procedure are in the | | | | PDT | | results section. | + +--------+ + + + | CAPILLARY BLOOD | Routin | 08/07/2017 | Gallbladder | Results for this | | GLUCOSE (NO CHG), | e | 4:57 AM | perforation | procedure are in the | | POC | | PDT | | results section. | + +--------+ + + + | CAPILLARY BLOOD | Routin | 08/06/2017 | Gallbladder | Results for this | | GLUCOSE (NO CHG), | e | 10:28 PM | perforation | procedure are in the | | POC | | PDT | | results section. | + +--------+ + + + | CAPILLARY BLOOD | Routin | 08/06/2017 | Gallbladder | Results for this | | GLUCOSE (NO CHG), | e | 5:45 PM | perforation | procedure are in the | | POC | | PDT | | results section. | + +--------+ + + + | CAPILLARY BLOOD | Routin | 08/06/2017 | Gallbladder | Results for this | | GLUCOSE (NO CHG), | e | 1:55 PM | perforation | procedure are in the | | POC | | PDT | | results section. | + +--------+ + + + | CAPILLARY BLOOD | Routin | 08/06/2017 | Gallbladder | Results for this | | GLUCOSE (NO CHG), | e | 11:56 AM | perforation | procedure are in the | | POC | | PDT | | results section. | + +--------+ + + + | CBC (HEMOGRAM) ONLY | Routin | 08/06/2017 | | Results for this | | | e | 6:48 AM | | procedure are in the | | | | PDT | | results section. | + +--------+ + + + | COMPLETE METABOLIC | Routin | 08/06/2017 | | Results for this | | SET | e | 6:48 AM | | procedure are in the | | (NA,K,CL,CO2,BUN,CRE | | PDT | | results section. | | AT,GLUC,CA,AST,ALT,B | | | | | | NIC TOTAL,ALK | | | | | | PHOS,ALB,PROT TOTAL) | | | | | + +--------+ + + + | CBC ONLY | Routin | 08/06/2017 | | Results for this | | | e | 6:48 AM | | procedure are in the | | | | PDT | | results section. | + +--------+ + + + | AMMONIA, PLASMA | Routin | 08/06/2017 | | Results for this | | | e | 6:48 AM | | procedure are in the | | | | PDT | | results section. | + +--------+ + + + | CAPILLARY BLOOD | Routin | 08/06/2017 | Gallbladder | Results for this | | GLUCOSE (NO CHG), | e | 6:11 AM | perforation | procedure are in the | | POC | | PDT | | results section. | + +--------+ + + + | CAPILLARY BLOOD | Routin | 08/05/2017 | Gallbladder | Results for this | | GLUCOSE (NO CHG), | e | 9:32 PM | perforation | procedure are in the | | POC | | PDT | | results section. | + +--------+ + + + | MRI CHOLANGIOGRAPHY | Routin | 08/05/2017 | | Results for this | | WO (LIVER MASS WO + | e | 8:29 PM | | procedure are in the | | MRCP) | | PDT | | results section. | + +--------+ + + + | CAPILLARY BLOOD | Routin | 08/05/2017 | Gallbladder | Results for this | | GLUCOSE (NO CHG), | e | 1:20 PM | perforation | procedure are in the | | POC | | PDT | | results section. | + +--------+ + + + | CBC (HEMOGRAM) ONLY | Routin | 08/05/2017 | | Results for this | | | e | 9:58 AM | | procedure are in the | | | | PDT | | results section. | + +--------+ + + + | COMPLETE METABOLIC | Routin | 08/05/2017 | | Results for this | | SET | e | 9:58 AM | | procedure are in the | | (NA,K,CL,CO2,BUN,CRE | | PDT | | results section. | | AT,GLUC,CA,AST,ALT,B | | | | | | NIC TOTAL,ALK | | | | | | PHOS,ALB,PROT TOTAL) | | | | | + +--------+ + + + | CBC ONLY | Routin | 08/05/2017 | | Results for this | | | e | 9:58 AM | | procedure are in the | | | | PDT | | results section. | + +--------+ + + + | CAPILLARY BLOOD | Routin | 08/05/2017 | Gallbladder | Results for this | | GLUCOSE (NO CHG), | e | 8:33 AM | perforation | procedure are in the | | POC | | PDT | | results section. | + +--------+ + + + | CAPILLARY BLOOD | Routin | 08/05/2017 | Gallbladder | Results for this | | GLUCOSE (NO CHG), | e | 12:13 AM | perforation | procedure are in the | | POC | | PDT | | results section. | + +--------+ + + + | CAPILLARY BLOOD | Routin | 08/04/2017 | Gallbladder | Results for this | | GLUCOSE (NO CHG), | e | 8:24 PM | perforation | procedure are in the | | POC | | PDT | | results section. | + +--------+ + + + | CAPILLARY BLOOD | Routin | 08/04/2017 | Gallbladder | Results for this | | GLUCOSE (NO CHG), | e | 7:22 PM | perforation | procedure are in the | | POC | | PDT | | results section. | + +--------+ + + + | CAPILLARY BLOOD | Routin | 08/04/2017 | Gallbladder | Results for this | | GLUCOSE (NO CHG), | e | 6:44 PM | perforation | procedure are in the | | POC | | PDT | | results section. | + +--------+ + + + | CAPILLARY BLOOD | Routin | 08/04/2017 | Gallbladder | Results for this | | GLUCOSE (NO CHG), | e | 5:46 PM | perforation | procedure are in the | | POC | | PDT | | results section. | + +--------+ + + + | CAPILLARY BLOOD | Routin | 08/04/2017 | Gallbladder | Results for this | | GLUCOSE (NO CHG), | e | 4:29 PM | perforation | procedure are in the | | POC | | PDT | | results section. | + +--------+ + + + | CAPILLARY BLOOD | Routin | 08/04/2017 | Gallbladder | Results for this | | GLUCOSE (NO CHG), | e | 3:41 PM | perforation | procedure are in the | | POC | | PDT | | results section. | + +--------+ + + + | CAPILLARY BLOOD | Routin | 08/04/2017 | Gallbladder | Results for this | | GLUCOSE (NO CHG), | e | 2:35 PM | perforation | procedure are in the | | POC | | PDT | | results section. | + +--------+ + + + | CAPILLARY BLOOD | Routin | 08/04/2017 | Gallbladder | Results for this | | GLUCOSE (NO CHG), | e | 1:38 PM | perforation | procedure are in the | | POC | | PDT | | results section. | + +--------+ + + + | CAPILLARY BLOOD | Routin | 08/04/2017 | Gallbladder | Results for this | | GLUCOSE (NO CHG), | e | 12:10 PM | perforation | procedure are in the | | POC | | PDT | | results section. | + +--------+ + + + | CAPILLARY BLOOD | Routin | 08/04/2017 | Gallbladder | Results for this | | GLUCOSE (NO CHG), | e | 11:14 AM | perforation | procedure are in the | | POC | | PDT | | results section. | + +--------+ + + + | CAPILLARY BLOOD | Routin | 08/04/2017 | Gallbladder | Results for this | | GLUCOSE (NO CHG), | e | 10:47 AM | perforation | procedure are in the | | POC | | PDT | | results section. | + +--------+ + + + | CAPILLARY BLOOD | Routin | 08/04/2017 | Gallbladder | Results for this | | GLUCOSE (NO CHG), | e | 10:02 AM | perforation | procedure are in the | | POC | | PDT | | results section. | + +--------+ + + + | CBC (HEMOGRAM) ONLY | Routin | 08/04/2017 | | Results for this | | | e | 9:21 AM | | procedure are in the | | | | PDT | | results section. | + +--------+ + + + | COMPLETE METABOLIC | Routin | 08/04/2017 | | Results for this | | SET | e | 9:21 AM | | procedure are in the | | (NA,K,CL,CO2,BUN,CRE | | PDT | | results section. | | AT,GLUC,CA,AST,ALT,B | | | | | | NIC TOTAL,ALK | | | | | | PHOS,ALB,PROT TOTAL) | | | | | + +--------+ + + + | CBC ONLY | Routin | 08/04/2017 | | Results for this | | | e | 9:21 AM | | procedure are in the | | | | PDT | | results section. | + +--------+ + + + | CAPILLARY BLOOD | Routin | 08/04/2017 | Gallbladder | Results for this | | GLUCOSE (NO CHG), | e | 8:03 AM | perforation | procedure are in the | | POC | | PDT | | results section. | + +--------+ + + + | CAPILLARY BLOOD | Routin | 08/04/2017 | Gallbladder | Results for this | | GLUCOSE (NO CHG), | e | 6:04 AM | perforation | procedure are in the | | POC | | PDT | | results section. | + +--------+ + + + | CAPILLARY BLOOD | Routin | 08/04/2017 | Gallbladder | Results for this | | GLUCOSE (NO CHG), | e | 3:59 AM | perforation | procedure are in the | | POC | | PDT | | results section. | + +--------+ + + + | CAPILLARY BLOOD | Routin | 08/04/2017 | Gallbladder | Results for this | | GLUCOSE (NO CHG), | e | 2:04 AM | perforation | procedure are in the | | POC | | PDT | | results section. | + +--------+ + + + | CAPILLARY BLOOD | Routin | 08/03/2017 | Gallbladder | Results for this | | GLUCOSE (NO CHG), | e | 11:57 PM | perforation | procedure are in the | | POC | | PDT | | results section. | + +--------+ + + + | CAPILLARY BLOOD | Routin | 08/03/2017 | Gallbladder | Results for this | | GLUCOSE (NO CHG), | e | 11:02 PM | perforation | procedure are in the | | POC | | PDT | | results section. | + +--------+ + + + | CAPILLARY BLOOD | Routin | 08/03/2017 | Gallbladder | Results for this | | GLUCOSE (NO CHG), | e | 10:00 PM | perforation | procedure are in the | | POC | | PDT | | results section. | + +--------+ + + + | X-RAY PORTABLE CHEST | Routin | 08/03/2017 | | Results for this | | 1 VIEW | e | 9:48 PM | | procedure are in the | | | | PDT | | results section. | + +--------+ + + + | CAPILLARY BLOOD | Routin | 08/03/2017 | Gallbladder | Results for this | | GLUCOSE (NO CHG), | e | 9:10 PM | perforation | procedure are in the | | POC | | PDT | | results section. | + +--------+ + + + | CULTURE, BLOOD BACTI | Routin | 08/03/2017 | | Results for this | | & YEAST [facility] | e | 9:09 PM | | procedure are in the | | | | PDT | | results section. | + +--------+ + + + | CBC (HEMOGRAM) ONLY | Urgent | 08/03/2017 | | Results for this | | | | 9:09 PM | | procedure are in the | | | | PDT | | results section. | + +--------+ + + + | BASIC METABOLIC SET | Urgent | 08/03/2017 | | Results for this | | (NA, K, CL, TCO2, | | 9:09 PM | | procedure are in the | | BUN, CR, GLU, CA) | | PDT | | results section. | + +--------+ + + + | CBC ONLY | Urgent | 08/03/2017 | | Results for this | | | | 9:09 PM | | procedure are in the | | | | PDT | | results section. | + +--------+ + + + | CULTURE, BLOOD BACTI | Routin | 08/03/2017 | | Results for this | | & YEAST | e | 9:09 PM | | procedure are in the | | | | PDT | | results section. | + +--------+ + + + | TROPONIN I, PLASMA | Routin | 08/03/2017 | | Results for this | | | e | 8:45 PM | | procedure are in the | | | | PDT | | results section. | + +--------+ + + + | 12 LEAD ECG | Routin | 08/03/2017 | | Results for this | | | e | 8:40 PM | | procedure are in the | | | | PDT | | results section. | + +--------+ + + + | CAPILLARY BLOOD | Routin | 08/03/2017 | Gallbladder | Results for this | | GLUCOSE (NO CHG), | e | 7:57 PM | perforation | procedure are in the | | POC | | PDT | | results section. | + +--------+ + + + | CAPILLARY BLOOD | Routin | 08/03/2017 | Gallbladder | Results for this | | GLUCOSE (NO CHG), | e | 7:00 PM | perforation | procedure are in the | | POC | | PDT | | results section. | + +--------+ + + + | CULTURE, WOUND | Routin | 08/03/2017 | | Results for this | | ABSCESS OR ASPIRATE | e | 6:52 PM | | procedure are in the | | W/ ANAEROBE | | PDT | | results section. | + +--------+ + + + | GRAM SMEAR ONLY, | Routin | 08/03/2017 | | Results for this | | STAT | e | 6:52 PM | | procedure are in the | | | | PDT | | results section. | + +--------+ + + + | IR DRAIN PROCEDURE | Routin | 08/03/2017 | | Results for this | | | e | 6:37 PM | | procedure are in the | | | | PDT | | results section. | + +--------+ + + + | CAPILLARY BLOOD | Routin | 08/03/2017 | Gallbladder | Results for this | | GLUCOSE (NO CHG), | e | 5:54 PM | perforation | procedure are in the | | POC | | PDT | | results section. | + +--------+ + + + | CAPILLARY BLOOD | Routin | 08/03/2017 | Gallbladder | Results for this | | GLUCOSE (NO CHG), | e | 5:09 PM | perforation | procedure are in the | | POC | | PDT | | results section. | + +--------+ + + + | CAPILLARY BLOOD | Routin | 08/03/2017 | Gallbladder | Results for this | | GLUCOSE (NO CHG), | e | 4:03 PM | perforation | procedure are in the | | POC | | PDT | | results section. | + +--------+ + + + | CAPILLARY BLOOD | Routin | 08/03/2017 | Gallbladder | Results for this | | GLUCOSE (NO CHG), | e | 3:03 PM | perforation | procedure are in the | | POC | | PDT | | results section. | + +--------+ + + + | 12 LEAD ECG | Routin | 08/03/2017 | | Results for this | | | e | 1:54 PM | | procedure are in the | | | | PDT | | results section. | + +--------+ + + + | CONFIRMATORY ABO/RH | Urgent | 08/03/2017 | | Results for this | | | | 1:09 PM | | procedure are in the | | | | PDT | | results section. | + +--------+ + + + | AMMONIA, PLASMA | Routin | 08/03/2017 | | Results for this | | | e | 1:02 PM | | procedure are in the | | | | PDT | | results section. | + +--------+ + + + | INR | Routin | 08/03/2017 | | Results for this | | | e | 11:30 AM | | procedure are in the | | | | PDT | | results section. | + +--------+ + + + | CBC AND AUTO DIFF | Routin | 08/03/2017 | | Results for this | | | e | 11:29 AM | | procedure are in the | | | | PDT | | results section. | + +--------+ + + + | CBC, WITH | Routin | 08/03/2017 | | Results for this | | DIFFERENTIAL | e | 11:29 AM | | procedure are in the | | | | PDT | | results section. | + +--------+ + + + | TROPONIN I, PLASMA | Urgent | 08/03/2017 | | Results for this | | | | 11:29 AM | | procedure are in the | | | | PDT | | results section. | + +--------+ + + + | COMPLETE METABOLIC | Routin | 08/03/2017 | | Results for this | | SET | e | 11:29 AM | | procedure are in the | | (NA,K,CL,CO2,BUN,CRE | | PDT | | results section. | | AT,GLUC,CA,AST,ALT,B | | | | | | NIC TOTAL,ALK | | | | | | PHOS,ALB,PROT TOTAL) | | | | | + +--------+ + + + | ANTIBODY SCREEN | Routin | 08/03/2017 | | Results for this | | | e | 11:29 AM | | procedure are in the | | | | PDT | | results section. | + +--------+ + + + | TYPE AND SCREEN | Routin | 08/03/2017 | | Results for this | | | e | 11:29 AM | | procedure are in the | | | | PDT | | results section. | + +--------+ + + + | ABO & RH TYPE | Routin | 08/03/2017 | | Results for this | | | e | 11:29 AM | | procedure are in the | | | | PDT | | results section. | + +--------+ + + + | LACTATE | Routin | 08/03/2017 | | Results for this | | | e | 11:29 AM | | procedure are in the | | | | PDT | | results section. | + +--------+ + + + | HEMOGLOBIN A1C, | Routin | 08/03/2017 | | Results for this | | BLOOD | e | 11:29 AM | | procedure are in the | | | | PDT | | results section. | + +--------+ + + + | MAGNESIUM, PLASMA | Routin | 08/03/2017 | | Results for this | | | e | 11:29 AM | | procedure are in the | | | | PDT | | results section. | + +--------+ + + + | CAPILLARY BLOOD | Routin | 08/03/2017 | | Results for this | | GLUCOSE (NO CHG), | e | 10:29 AM | | procedure are in the | | POC | | PDT | | results section. | + +--------+ + + + | OUTSIDE BODY - READ | Urgent | 08/03/2017 | | Results for this | | REQUEST | | 12:00 AM | | procedure [...] | | | + +---------+ + + CAPILLARY BLOOD GLUCOSE (NO CHG), POC (08/07/2017 12:55 PM PDT) + +---------+ + + + | Component | Value | Ref Range | Performed | Pathologist | | | | | At | Signature | + +---------+ + + + | BLOOD | 207 (H) | 70 - 99 mg/dL | [facility] | | | GLUCOSE, | | | [facility] | | | POC | | | [facility] | | | | | | OF CARE | | | | | | TESTS | | + +---------+ + + + + + | Specimen | + + | | + + + + + + + | Performing | Address | City/State/Zipcode | Phone Number | | Organization | | | | + + + + + | [facility] | [address] | [place], [place] | | | [facility] | [facility] | [address] | | | TESTS | | | | + + + + + CAPILLARY BLOOD GLUCOSE (NO CHG), POC (08/07/2017 8:53 AM PDT) + +---------+ + + + | Component | Value | Ref Range | Performed | Pathologist | | | | | At | Signature | + +---------+ + + + | BLOOD | 256 (H) | 70 - 99 mg/dL | [facility] | | | GLUCOSE, | | | [facility] | | | POC | | | [facility] | | | | | | OF CARE | | | | | | TESTS | | + +---------+ + + + + + | Specimen | + + | | + + + + + + + | Performing | Address | City/State/Zipcode | Phone Number | | Organization | | | | + + + + + | [facility] | [address] | [place], [place] | | | [facility] | [address] | [address] | | | TESTS | | | | + + + + + CBC (HEMOGRAM) ONLY (08/07/2017 6:14 AM PDT) + + + + + + | Component | Value | Ref Range | Performed | Pathologist | | | | | At | Signature | + + + + + + | WHITE CELL | 11.64 (H) | 3.50 - 10.80 | [facility] | | | COUNT | | K/cu mm | LABORATORY | | | | | | SERVICES, | | | | | | CORE | | + + + + + + | RED CELL | 3.80 (L) | 4.50 - 6.00 | [facility] | | | COUNT | | M/cu mm | LABORATORY | | | | | | SERVICES, | | | | | | CORE | | + + + + + + | HEMOGLOBIN | 12.1 (L) | 13.5 - 17.5 | [facility] | | | | | g/dL | LABORATORY | | | | | | SERVICES, | | | | | | CORE | | + + + + + + | HEMATOCRIT | 34.7 (L) | 41.0 - 53.0 % | [facility] | | | | | | LABORATORY | | | | | | SERVICES, | | | | | | CORE | | + + + + + + | MCV | 91.3 | 80.0 - 100.0 fL | [facility] | | | | | | LABORATORY | | | | | | SERVICES, | | | | | | CORE | | + + + + + + | MCHC | 34.9 | 32.0 - 36.0 | [facility] | | | | | g/dL | LABORATORY | | | | | | SERVICES, | | | | | | CORE | | + + + + + + | RDW SD | 46.6 (H) | 35.1 - 46.3 fL | [facility] | | | | | | LABORATORY | | | | | | SERVICES, | | | | | | CORE | | + + + + + + | PLATELET | 87 (L) | 150 - 400 K/cu | [facility] | | | COUNT | | mm | LABORATORY | | | | | | SERVICES, | | | | | | CORE | | + + + + + + | MPV | 11.1 | 9.7 - 12.3 fL | [facility] [...] Performed At | + + + | New reference ranges for MCV, MCHC, PLT, IG% and IG# effective | [facility] | | 06/24/2017 | LABORATORY | | | [facility] | + + + + + + + + | Performing | Address | City/State/Zipcode | Phone Number | | Organization | | | | + + + + + | [facility] | [address] | [place] [address] | | | [facility] | [address] | | | + + + + + COMPLETE METABOLIC SET (NA,K,CL,CO2,BUN,CREAT,GLUC,CA,AST,ALT,BILI TOTAL,ALK PHOS,ALB,PROT TOTAL) (08/07/2017 6:14 AM PDT) + +---------+ + + + | Component | Value | Ref Range | Performed | Pathologist | | | | | At | Signature | + +---------+ + + + | GLUCOSE, | 219 (H) | 70 - 99 mg/dL | [facility] | | | PLASMA | | | LABORATORY | | | (LAB) | | | SERVICES, | | | | | | CORE | | + +---------+ + + + | BUN, PLASMA | 12 | 6 - 20 mg/dL | [facility] | | | (LAB) | | | LABORATORY | | | | | | SERVICES, | | | | | | CORE | | + +---------+ + + + | CREATININE | 0.74 | 0.70 - 1.30 | [facility] | | | PLASMA | | mg/dL | LABORATORY | | | (LAB) | | | SERVICES, | | | | | | CORE | | + +---------+ + + + | EGFR | >60 | >60 mL/min | [facility] | | | - | | | LABORATORY | | | [facility] | | | SERVICES, | | | | | | CORE | | + +---------+ + + + | EGFR NON | >60 | >60 mL/min | [facility] | | | -BARI | | | LABORATORY | | | [facility] | | | SERVICES, | | | | | | CORE | | + +---------+ + + + | SODIUM, | 131 (L) | 136 - 145 | [facility] | | | PLASMA | | mmol/L | LABORATORY | | | (LAB) | | | SERVICES, | | | | | | CORE | | + +---------+ + + + | POTASSIUM, | 4.3 | 3.4 - 5.0 | [facility] | | | PLASMA | | mmol/L | LABORATORY | | | (LAB) | | | SERVICES, | | | | | | CORE | | + +---------+ + + + | CHLORIDE, | 102 | 97 - 108 mmol/L | [facility] | | | PLASMA | | | LABORATORY | | | (LAB) | | | SERVICES, | | | | | | CORE | | + +---------+ + + + | TOTAL CO2, | 24 | 21 - 32 mmol/L | [facility] | | | PLASMA | | | LABORATORY | | | (LAB) | | | SERVICES, | | | | | | CORE | | + +---------+ + + + | CALCIUM, | 8.0 (L) | 8.6 - 10.2 | [facility] [...] +---------+ + + + | BILIRUBIN | 1.5 (H) | 0.3 - 1.2 mg/dL | [facility] | | | TOTAL | | | LABORATORY | | | | | | SERVICES, | | | | | | CORE | | + +---------+ + + + | TOTAL | 5.9 (L) | 6.4 - 8.2 g/dL | [facility] | | | PROTEIN, | | | LABORATORY | | | PLASMA | | | SERVICES, | | | (LAB) | | | CORE | | + +---------+ + + + | ALBUMIN, | 1.9 (L) | 3.5 - 4.7 g/dL | [facility] | | | PLASMA | | | LABORATORY | | | (LAB) | | | SERVICES, | | | | | | CORE | | + +---------+ + + + | ALK PHOS | 175 (H) | 56 - 119 U/L | [facility] | | | | | | LABORATORY | | | | | | SERVICES, | | | | | | CORE | | + +---------+ + + + | AST(SGOT) | 32 | <=41 U/L | [facility] | | | | | | LABORATORY | | | | | | SERVICES, | | | | | | CORE | | + +---------+ + + + | ALT (SGPT) | 36 | <=60 U/L | [facility] | | | | | | LABORATORY | | | | | | SERVICES, | | | | | | CORE | | + +---------+ + + + | ANION GAP | 5 | 4 - 11 mmol/L | [facility] | | | | | | LABORATORY | | | | | | SERVICES, | | | | | | CORE | | + +---------+ + + + | ANION | 10 | 4 - 11 mmol/L | [facility] [...] the MDRD equation recommended by the | [facility] | | National Kidney Disease Education Program. Estimated GFR | LABORATORY | | Interpretive Information: <60 mL/min/1.73 sq m | [facility], CORE | | Chronic Kidney Disease <15 [...] + | [facility] | [address] | [place] [address] | | | [facility] | [address] | | | + + + + + CAPILLARY BLOOD GLUCOSE (NO CHG), POC (08/07/2017 4:57 AM PDT) + +---------+ + + + | Component | Value | Ref Range | Performed | Pathologist | | | | | At | Signature | + +---------+ + + + | BLOOD | 233 (H) | 70 - 99 mg/dL | [facility] | | | GLUCOSE, | | | [facility] | | | POC | | | [facility] | | | | | | OF CARE | | | | | | TESTS | | + +---------+ + + + + + | Specimen | + + | | + + + + + + + | Performing | Address | City/State/Zipcode | Phone Number | | Organization | | | | + + + + + | [facility] | [address] | [place], [place] | | | [facility] | [address] | [address] | | | TESTS | | | | + + + + + CAPILLARY BLOOD GLUCOSE (NO CHG), POC (08/06/2017 10:28 PM PDT) + +---------+ + + + | Component | Value | Ref Range | Performed | Pathologist | | | | | At | Signature | + +---------+ + + + | BLOOD | 211 (H) | 70 - 99 mg/dL | [facility] | | | GLUCOSE, | | | [facility] | | | POC | | | [facility] | | | | | | OF CARE | | | | | | TESTS | | + +---------+ + + + + + | Specimen | + + | | + + + + + + + | Performing | Address | City/State/Zipcode | Phone Number | | Organization | | | | + + + + + | [facility] | [address] | [place], [place] | | | [facility] | [address] | [address] | | | TESTS | | | | + + + + + CAPILLARY BLOOD GLUCOSE (NO CHG), POC (08/06/2017 5:45 PM PDT) + +---------+ + + + | Component | Value | Ref Range | Performed | Pathologist | | | | | At | Signature | + +---------+ + + + | BLOOD | 217 (H) | 70 - 99 mg/dL | [facility] | | | GLUCOSE, | | | [facility] | | | POC | | | [facility] | | | | | | OF CARE | | | | | | TESTS | | + +---------+ + + + + + | Specimen | + + | | + + + + + + + | Performing | Address | City/State/Zipcode | Phone Number | | Organization | | | | + + + + + | [facility] | [address] | [place], [place] | | | [facility] | [address] | [address] | | | TESTS | | | | + + + + + CAPILLARY BLOOD GLUCOSE (NO CHG), POC (08/06/2017 1:55 PM PDT) + +---------+ + + + | Component | Value | Ref Range | Performed | Pathologist | | | | | At | Signature | + +---------+ + + + | BLOOD | 209 (H) | 70 - 99 mg/dL | [facility] | | | GLUCOSE, | | | [facility] | | | POC | | | [facility] | | | | | | OF CARE | | | | | | TESTS | | + +---------+ + + + + + | Specimen | + + | | + + + + + + + | Performing | Address | City/State/Zipcode | Phone Number | | Organization | | | | + + + + + | [facility] | [address] | [place], [place] | | | [facility] | [address] | [phone] | | | TESTS | | | | + + + + + CAPILLARY BLOOD GLUCOSE (NO CHG), POC (08/06/2017 11:56 AM PDT) + +---------+ + + + | Component | Value | Ref Range | Performed | Pathologist | | | | | At | Signature | + +---------+ + + + | BLOOD | 198 (H) | 70 - 99 mg/dL | [facility] - | | | GLUCOSE, | | | [facility] | | | POC | | | [facility] | | | | | | OF CARE | | | | | | TESTS | | + +---------+ + + + + + | Specimen | + + | | + + + + + + + | Performing | Address | City/State/Zipcode | Phone Number | | Organization | | | | + + + + + | [facility] | [address] | [place], [place] | | | [facility] | [address] | [phone] | | | TESTS | | | | + + + + + CBC (HEMOGRAM) ONLY (08/06/2017 6:48 AM PDT) + + + + + + | Component | Value | Ref Range | Performed | Pathologist | | | | | At | Signature | + + + + + + | WHITE CELL | 10.50 | 3.50 - 10.80 | [facility] | | | COUNT | | K/cu mm | LABORATORY | | | | | | SERVICES, | | | | | | CORE | | + + + + + + | RED CELL | 3.87 (L) | 4.50 - 6.00 | [facility] | | | COUNT | | M/cu mm | LABORATORY | | | | | | SERVICES, | | | | | | CORE | | + + + + + + | HEMOGLOBIN | 12.2 (L) | 13.5 - 17.5 | [facility] | | | | | g/dL | LABORATORY | | | | | | SERVICES, | | | | | | CORE | | + + + + + + | HEMATOCRIT | 35.7 (L) | 41.0 - 53.0 % | [facility] | | | | | | LABORATORY | | | | | | SERVICES, | | | | | | CORE | | + + + + + + | MCV | 92.2 | 80.0 - 100.0 fL | [facility] | | | | | | LABORATORY | | | | | | SERVICES, | | | | | | CORE | | + + + + + + | MCHC | 34.2 | 32.0 - 36.0 | [facility] | | | | | g/dL | LABORATORY | | | | | | SERVICES, | | | | | | CORE | | + + + + + + | RDW SD | 47.5 (H) | 35.1 - 46.3 fL | [facility] | | | | | | LABORATORY | | | | | | SERVICES, | | | | | | CORE | | + + + + + + | PLATELET | 83 (L) | 150 - 400 K/cu | [facility] | | | COUNT | | mm | LABORATORY | | | | | | SERVICES, | | | | | | CORE | | + + + + + + | MPV | 11.1 | 9.7 - 12.3 fL | [facility] [...] Performed At | + + + | New reference ranges for MCV, MCHC, PLT, IG% and IG# effective | [facility] | | 06/24/2017 | LABORATORY | | | [facility] | + + + + + + + + | Performing | Address | City/State/Zipcode | Phone Number | | Organization | | | | + + + + + | [facility] | [address] | [place] [address] | | | [facility] [address] [facility] | [address] | | | + + + + + COMPLETE METABOLIC SET (NA,K,CL,CO2,BUN,CREAT,GLUC,CA,AST,ALT,BILI TOTAL,ALK PHOS,ALB,PROT TOTAL) (08/06/2017 6:48 AM PDT) + +---------+ + + + | Component | Value | Ref Range | Performed | Pathologist | | | | | At | Signature | + +---------+ + + + | GLUCOSE, | 202 (H) | 70 - 99 mg/dL | [...] +---------+ + + + | CREATININE | 0.83 | 0.70 - 1.30 | [facility] | | | PLASMA | | mg/dL | LABORATORY | | | (LAB) | | | SERVICES, | | | | | | CORE | | + +---------+ + + + | EGFR | >60 | >60 mL/min | [facility] | | | - | | | LABORATORY | | | [facility] | | | SERVICES, | | | | | | CORE | | + +---------+ + + + | EGFR NON | >60 | >60 mL/min | [facility] | | | -BARI | | | LABORATORY | | | [facility] | | | SERVICES, | | | | | | CORE | | + +---------+ + + + | SODIUM, | 134 (L) | 136 - 145 | [facility] | | | PLASMA | | mmol/L | LABORATORY | | | (LAB) | | | SERVICES, | | | | | | CORE | | + +---------+ + + + | POTASSIUM, | 4.1 | 3.4 - 5.0 | [facility] | | | PLASMA | | mmol/L | LABORATORY | | | (LAB) | | | SERVICES, | | | | | | CORE | | + +---------+ + + + | CHLORIDE, | 103 | 97 - 108 mmol/L | [facility] | | | PLASMA | | | LABORATORY | | | (LAB) | | | SERVICES, | | | | | | CORE | | + +---------+ + + + | TOTAL CO2, | 23 | 21 - 32 mmol/L | [facility] | | | PLASMA | | | LABORATORY | | | (LAB) | | | SERVICES, | | | | | | CORE | | + +---------+ + + + | CALCIUM, | 8.0 (L) | 8.6 - 10.2 | [facility] [...] +---------+ + + + | BILIRUBIN | 2.2 (H) | 0.3 - 1.2 mg/dL | [facility] | | | TOTAL | | | LABORATORY | | | | | | SERVICES, | | | | | | CORE | | + +---------+ + + + | TOTAL | 5.9 (L) | 6.4 - 8.2 g/dL | [facility] | | | PROTEIN, | | | LABORATORY | | | PLASMA | | | SERVICES, | | | (LAB) | | | CORE | | + +---------+ + + + | ALBUMIN, | 1.9 (L) | 3.5 - 4.7 g/dL | [facility] | | | PLASMA | | | LABORATORY | | | (LAB) | | | SERVICES, | | | | | | CORE | | + +---------+ + + + | ALK PHOS | 167 (H) | 56 - 119 U/L | [facility] | | | | | | LABORATORY | | | | | | SERVICES, | | | | | | CORE | | + +---------+ + + + | AST(SGOT) | 39 | <=41 U/L | [facility] | | | | | | LABORATORY | | | | | | SERVICES, | | | | | | CORE | | + +---------+ + + + | ALT (SGPT) | 39 | <=60 U/L | [facility] | | [...] +---------+ + + + | ANION | 13 (H) | 4 - 11 mmol/L | [facility] [...] the MDRD equation recommended by the | [facility] | | National Kidney Disease Education Program. [...] [facility] | [address] | [place] [address] | | | SERVICES, CORE | [address] | | | + + + + + AMMONIA, PLASMA (08/06/2017 6:48 AM PDT) + +--------+ + + + | Component | Value | Ref Range | Performed | Pathologist | | | | | At | Signature | + +--------+ + + + | AMMONIA | 48 (H) | 11 - 35 umol/L | [facility] | | | (LAB) | | | LABORATORY | | | | | | SERVICES, | | | | | | CORE | | + +--------+ + + + + + | Specimen | + + | Blood - Blood | | (substance) | + + + + + + + | Performing | Address | City/State/Zipcode | Phone Number | | Organization | | | | + + + + + | [facility] | [address] [facility] | [place] [address] | | | SERVICES, CORE | [address] | | | + + + + + CAPILLARY BLOOD GLUCOSE (NO CHG), POC (08/06/2017 6:11 AM PDT) + +---------+ + + + | Component | Value | Ref Range | Performed | Pathologist | | | | | At | Signature | + +---------+ + + + | BLOOD | 229 (H) | 70 - 99 mg/dL | [facility] | | | GLUCOSE, | | | [facility] | | | POC | | | [facility] | | | | | | OF CARE | | | | | | TESTS | | + +---------+ + + + + + | Specimen | + + | | + + + + + + + | Performing | Address | City/State/Zipcode | Phone Number | | Organization | | | | + + + + + | [facility] | [address] | [place], [place] | | | [facility] | [facility] | [address] | | | TESTS | | | | + + + + + CAPILLARY BLOOD GLUCOSE (NO CHG) POC (08/05/2017 9:32 PM PDT) + +---------+ + + + | Component | Value | Ref Range | Performed | Pathologist | | | | | At | Signature | + +---------+ + + + | BLOOD | 255 (H) | 70 - 99 mg/dL | [facility] | | | GLUCOSE, | | | [facility] | | | POC | | | [facility] | | | | | | OF CARE | | | | | | TESTS | | + +---------+ + + + + + | Specimen | + + | | + + + + + + + | Performing | Address | City/State/Zipcode | Phone Number | | Organization | | | | + + + + + | [facility] | [address] | [place], [place] | | | [facility] | [address] | [address] | | | TESTS | | | | + + + + + MRI CHOLANGIOGRAPHY WO (LIVER MASS WO + MRCP) (08/05/2017 8:29 PM PDT) + + | Specimen | + + | | + + + + + | Narrative | Performed At | + + + | EXAM: Abdomen MRI without intravenous contrast. HISTORY: bile | [facility] | | duct stone eval increasing bilirubin with perforated cholecystitis | RADIOLOGY VOICE | | post cholecystostomy tube placement COMPARISON: Outside CT 08/03/17 | RECOGNITION 2 | | TECHNIQUE: Multiplanar MRI of the abdomen was performed without | | | intravenous contrast. MRCP was also performed FINDINGS: | | | LIVER: Nodular cirrhotic liver with portal hypertension findings | | | including large splenorenal shunt. BILIARY: The gallbladder is now | | | decompressed around the cholecystostomy tube, containing residual | | | stones. The 2 collections containing extruded stones at the fundus and | | | body of the gallbladder have decreased in size, with one measuring 3 | | | x 1.7 cm, previously 4.3 x 3.1 cm. However, there is a persistent | | | large hilar collection measuring 5 x 3.5 x 5 cm which partially | | | encases the upper common duct and causes external compression on the | | | common duct resulting in a biliary stricture. There is moderate | | | intrahepatic dilation upstream from this area which is increased from | | | the CT. Diffusion restriction within this collection is consistent | | | with abscess. There is no choledocholithiasis. Variant biliary | | | anatomy with low insertion of the common bile duct. No evidence of | | | Mirizzi syndrome. PANCREAS: Unremarkable. SPLEEN: Moderately | | | enlarged. Splenorenal shunt. ADRENALS: Unremarkable. KIDNEYS: | | | Unremarkable. GI TRACT: Visualized portions are unremarkable. | | | PERITONEUM: Trace ascites. LYMPH NODES: No lymphadenopathy. | | | VESSELS: The main portal vein is diffusely narrowed by the collection | | | as well, without definite intraluminal thrombus on this noncontrast | | | study BONES AND SOFT TISSUES: Unremarkable. IMPRESSION: 1. 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 2. Decompressed gallbladder and smaller perforated | | | collections along the fundus in the gallbladder body after | | | cholecystostomy. 3. Variant biliary anatomy with low insertion of | | | the cystic duct; no evidence of Mirizzi syndrome. I have | | | personally reviewed the images and, if necessary, edited the report. I | | | agree with the report as now presented. Final signature: Mookie Rock | | | MD Dhruv 08/06/2017 9:14 AM Preliminary: Jose Antonio Frazier MD | | | Dictation initiated: Jose Antonio Frazier MD 08/05/2017 8:32 PM | | + + + + + | Procedure Note | + + | Service Account, [facility] Interface - 08/06/2017 9:15 AM PDT EXAM: Abdomen MRI | | without intravenous contrast. HISTORY: bile duct stone eval increasing bilirubin with | | perforated cholecystitis post cholecystostomy tube placement COMPARISON: Outside CT | | 08/03/17 TECHNIQUE: Multiplanar MRI of the abdomen was performed without intravenous | | contrast. MRCP was also performed FINDINGS: LIVER: Nodular cirrhotic liver with portal | | hypertension findings including large splenorenal shunt.BILIARY: The gallbladder is now | | decompressed around the cholecystostomy tube, containing residual stones. The 2 | | collections containing extruded stones at the fundus and body of the gallbladder have | | decreased in size, with one measuring 3 x 1.7 cm, previously 4.3 x 3.1 cm. However, | | there is a persistent large hilar collection measuring 5 x 3.5 x 5 cm which partially | | encases the upper common duct and causes external compression on the common duct | | resulting in a biliary stricture. There is moderate intrahepatic dilation upstream from | | this area which is increased from the CT. Diffusion restriction within this collection | | is consistent with abscess. There is no choledocholithiasis. Variant biliary anatomy | | with low insertion of the common bile duct. No evidence of Mirizzi syndrome. PANCREAS: | | Unremarkable.SPLEEN: Moderately enlarged. Splenorenal shunt.ADRENALS: | | Unremarkable.KIDNEYS: Unremarkable.GI TRACT: Visualized portions are | | unremarkable.PERITONEUM: Trace ascites. LYMPH NODES: No lymphadenopathy.VESSELS: The | | main portal vein is diffusely narrowed by the collection as well, without definite | | intraluminal thrombus on this noncontrast study BONES AND SOFT TISSUES: Unremarkable. | | IMPRESSION:1. Upper common bile duct stricture due to external compression by a | | persistent 5 cm hepatic hilar abscess secondary to perforated cholecystitis. 2. | | Decompressed gallbladder and smaller perforated collections along the fundus in the | | gallbladder body after cholecystostomy. 3. Variant biliary anatomy with low insertion of | | the cystic duct; no evidence of Mirizzi syndrome. I have personally reviewed the | | images and, if necessary, edited the report. I agree with the report as now presented. | | Final signature: Mookie Bartlett MD 08/06/2017 9:14 AM Preliminary: Jose Antonio Frazier MD | | Dictation initiated: Jose Antonio Frazier MD 08/05/2017 8:32 PM | | | |IMPRESSION: | |1. Upper common bile duct stricture due to external compression by a persistent 5 cm hepati c hilar abscess secondary to perforated cholecystitis. | | | |2. Decompressed gallbladder and smaller perforated collections along the fundus in the gall bladder body after cholecystostomy. | | | |3. Variant biliary anatomy with low insertion of the cystic duct; no evidence of Mirizzi s yndrome. | | | |I have personally reviewed the images and, if necessary, edited the report. I agree with e report as now presented. | | | |Final signature: Mookie Bartlett MD 08/06/2017 9:14 AM | |Preliminary: Jose Antonio Frazier MD | |Dictation initiated: Jose Antonio Frazier MD 08/05/2017 8:32 PM | + + + +---------+ + + | Performing | Address | City/State/Zipcode | Phone Number | | Organization | | | | + +---------+ + + | [facility] | | | | | VOICE RECOGNITION 2 | | | | + +---------+ + + CAPILLARY BLOOD GLUCOSE (NO CHG), POC (08/05/2017 1:20 PM PDT) + +---------+ + + + | Component | Value | Ref Range | Performed | Pathologist | | | | | At | Signature | + +---------+ + + + | BLOOD | 262 (H) | 70 - 99 mg/dL | [facility] | | | GLUCOSE, | | | [facility] | | | POC | | | [facility] | | | | | | [facility] | | | | | | TESTS | | + +---------+ + + + + + | Specimen | + + | | + + + + + + + | Performing | Address | City/State/Zipcode | Phone Number | | Organization | | | | + + + + + | [facility] | [address] | [place], [place] | | | [facility] | [address] | [address] | | | TESTS | | | | + + + + + CBC (HEMOGRAM) ONLY (08/05/2017 9:58 AM PDT) + + + + + + | Component | Value | Ref Range | Performed | Pathologist | | | | | At | Signature | + + + + + + | WHITE CELL | 14.74 (H) | 3.50 - 10.80 | [facility] | | | COUNT | | K/cu mm | LABORATORY | | | | | | SERVICES, | | | | | | CORE | | + + + + + + | RED CELL | 4.22 (L) | 4.50 - 6.00 | [facility] | | | COUNT | | M/cu mm | LABORATORY | | | | | | SERVICES, | | | | | | CORE | | + + + + + + | HEMOGLOBIN | 13.3 (L) | 13.5 - 17.5 | [facility] | | | | | g/dL | LABORATORY | | | | | | SERVICES, | | | | | | CORE | | + + + + + + | HEMATOCRIT | 39.5 (L) | 41.0 - 53.0 % | [facility] | | | | | | LABORATORY | | | | | | SERVICES, | | | | | | CORE | | + + + + + + | MCV | 93.6 | 80.0 - 100.0 fL | [facility] | | | | | | LABORATORY | | | | | | SERVICES, | | | | | | CORE | | + + + + + + | MCHC | 33.7 | 32.0 - 36.0 | [facility] | | | | | g/dL | LABORATORY | | | | | | SERVICES, | | | | | | CORE | | + + + + + + | RDW SD | 48.0 (H) | 35.1 - 46.3 fL | [facility] | | | | | | LABORATORY | | | | | | SERVICES, | | | | | | CORE | | + + + + + + | PLATELET | 136 (L) | 150 - 400 K/cu | [facility] | | | COUNT | | mm | LABORATORY | | | | | | SERVICES, | | | | | | CORE | | + + + + + + | MPV | 11.9 | 9.7 - 12.3 fL | [facility] [...] Performed At | + + + | New reference ranges for MCV, MCHC, PLT, IG% and IG# effective | [facility] | | 06/24/2017 | LABORATORY | | | SERVICES, CORE | + + + + + + + + | Performing | Address | City/State/Zipcode | Phone Number | | Organization | | | | + + + + + | [facility] | [address] | [place] [address] | | | SERVICES, CORE | [address] | | | + + + + + COMPLETE METABOLIC SET (NA,K,CL,CO2,BUN,CREAT,GLUC,CA,AST,ALT,BILI TOTAL,ALK PHOS,ALB,PROT TOTAL) (08/05/2017 9:58 AM PDT) + +---------+ + + + | Component | Value | Ref Range | Performed | Pathologist | | | | | At | Signature | + +---------+ + + + | GLUCOSE, | 269 (H) | 70 - 99 mg/dL | [facility] | | | PLASMA | | | LABORATORY | | | (LAB) | | | SERVICES, | | | | | | CORE | | + +---------+ + + + | BUN, PLASMA | 19 | 6 - 20 mg/dL | [facility] | | | (LAB) | | | LABORATORY | | | | | | SERVICES, | | | | | | CORE | | + +---------+ + + + | CREATININE | 1.05 | 0.70 - 1.30 | [facility] | | | PLASMA | | mg/dL | LABORATORY | | | (LAB) | | | SERVICES, | | | | | | CORE | | + +---------+ + + + | EGFR | >60 | >60 mL/min | [facility] | | | - | | | LABORATORY | | | [facility] | | | SERVICES, | | | | | | CORE | | + +---------+ + + + | EGFR NON | >60 | >60 mL/min | [facility] | | | -[facility]I | | | LABORATORY | | | [facility] | | | SERVICES, | | | | | | CORE | | + +---------+ + + + | SODIUM, | 133 (L) | 136 - 145 | [facility] | | | PLASMA | | mmol/L | LABORATORY | | | (LAB) | | | SERVICES, | | | | | | CORE | | + +---------+ + + + | POTASSIUM, | 4.1 | 3.4 - 5.0 | [facility] | | | PLASMA | | mmol/L | LABORATORY | | | (LAB) | | | SERVICES, | | | | | | CORE | | + +---------+ + + + | CHLORIDE, | 102 | 97 - 108 mmol/L | [facility] [...] +---------+ + + + | CALCIUM(ALB | 9.9 | 8.6 - 10.2 | [facility] | | | CORRECTED) | | mg/dL | LABORATORY | | | | | | SERVICES, | | | | | | CORE | | + +---------+ + + + | BILIRUBIN | 2.4 (H) | 0.3 - 1.2 mg/dL | [...] +---------+ + + + | ALBUMIN, | 2.2 (L) | 3.5 - 4.7 g/dL | [facility] | | | PLASMA | | | LABORATORY | | | (LAB) | | | SERVICES, | | | | | | CORE | | + +---------+ + + + | ALK PHOS | 188 (H) | 56 - 119 U/L | [facility] | | | | | | LABORATORY | | | | | | SERVICES, | | | | | | CORE | | + +---------+ + + + | AST(SGOT) | 61 (H) | <=41 U/L | [facility] | | | | | | LABORATORY | | | | | | SERVICES, | | | | | | CORE | | + +---------+ + + + | ALT (SGPT) | 52 | <=60 U/L | [facility] | | | | | | LABORATORY | | | | | | SERVICES, | | | | | | CORE | | + +---------+ + + + | ANION GAP | 10 | 4 - 11 mmol/L | [facility] | | | | | | LABORATORY | | | | | | SERVICES, | | | | | | CORE | | + +---------+ + + + | ANION | 14 (H) | 4 - 11 mmol/L | [facility] [...] | + + + + + | [facility] | [address] | [place] [address] | | | SERVICES, CORE | [address] | | | + + + + + CAPILLARY BLOOD GLUCOSE (NO CHG), POC (08/05/2017 8:33 AM PDT) + +---------+ + + + | Component | Value | Ref Range | Performed | Pathologist | | | | | At | Signature | + +---------+ + + + | BLOOD | 228 (H) | 70 - 99 mg/dL | [facility] | | | GLUCOSE, | | | [facility] | | | POC | | | [facility] | | | | | | OF CARE | | | | | | TESTS | | + +---------+ + + + + + | Specimen | + + | | + + + + + + + | Performing | Address | City/State/Zipcode | Phone Number | | Organization | | | | + + + + + | [facility] | [address] | [place], [place] | | | [facility] | [address] | [address] | | | TESTS | | | | + + + + + CAPILLARY BLOOD GLUCOSE (NO CHG), POC (08/05/2017 12:13 AM PDT) + +---------+ + + + | Component | Value | Ref Range | Performed | Pathologist | | | | | At | Signature | + +---------+ + + + | BLOOD | 215 (H) | 70 - 99 mg/dL | [facility] | | | GLUCOSE, | | | [facility] | | | POC | | | [facility] | | | | | | OF CARE | | | | | | TESTS | | + +---------+ + + + + + | Specimen | + + | | + + + + + + + | Performing | Address | City/State/Zipcode | Phone Number | | Organization | | | | + + + + + | [facility] | [address] | [place], [place] | | | [facility] | [address] | [address] | | | TESTS | | | | + + + + + CAPILLARY BLOOD GLUCOSE (NO CHG), POC (08/04/2017 8:24 PM PDT) + +---------+ + + + | Component | Value | Ref Range | Performed | Pathologist | | | | | At | Signature | + +---------+ + + + | BLOOD | 212 (H) | 70 - 99 mg/dL | [facility] | | | GLUCOSE, | | | [facility] | | | POC | | | [facility] | | | | | | OF CARE | | | | | | TESTS | | + +---------+ + + + + + | Specimen | + + | | + + + + + + + | Performing | Address | City/State/Zipcode | Phone Number | | Organization | | | | + + + + + | [facility] | [address] | [place], [place] | | | [facility] | [address] | [address] | | | TESTS | | | | + + + + + CAPILLARY BLOOD GLUCOSE (NO CHG), POC (08/04/2017 7:22 PM PDT) + +---------+ + + + | Component | Value | Ref Range | Performed | Pathologist | | | | | At | Signature | + +---------+ + + + | BLOOD | 166 (H) | 70 - 99 mg/dL | [facility] | | | GLUCOSE, | | | [facility] | | | POC | | | [facility] | | | | | | OF CARE | | | | | | TESTS | | + +---------+ + + + + + | Specimen | + + | | + + + + + + + | Performing | Address | City/State/Zipcode | Phone Number | | Organization | | | | + + + + + | [facility] | [address] | [place], [place] | | | [facility] | [address] | [address] | | | TESTS | | | | + + + + + CAPILLARY BLOOD GLUCOSE (NO CHG), POC (08/04/2017 6:44 PM PDT) + +---------+ + + + | Component | Value | Ref Range | Performed | Pathologist | | | | | At | Signature | + +---------+ + + + | BLOOD | 147 (H) | 70 - 99 mg/dL | [facility] | | | GLUCOSE, | | | [facility] | | | POC | | | [facility] | | | | | | OF CARE | | | | | | TESTS | | + +---------+ + + + + + | Specimen | + + | | + + + + + + + | Performing | Address | City/State/Zipcode | Phone Number | | Organization | | | | + + + + + | [facility] | [address] | [place], [place] | | | [facility] | [address] | [address] | | | TESTS | | | | + + + + + CAPILLARY BLOOD GLUCOSE (NO CHG), POC (08/04/2017 5:46 PM PDT) + +---------+ + + + | Component | Value | Ref Range | Performed | Pathologist | | | | | At | Signature | + +---------+ + + + | BLOOD | 118 (H) | 70 - 99 mg/dL | [facility] - | | | GLUCOSE, | | | [facility] | | | POC | | | [facility] | | | | | | OF CARE | | | | | | TESTS | | + +---------+ + + + + + | Specimen | + + | | + + + + + + + | Performing | Address | City/State/Zipcode | Phone Number | | Organization | | | | + + + + + | [facility] | [address] | [place], [place] | | | [facility] | [address] | [address] | | | TESTS | | | | + + + + + CAPILLARY BLOOD GLUCOSE (NO CHG), POC (08/04/2017 4:29 PM PDT) + +---------+ + + + | Component | Value | Ref Range | Performed | Pathologist | | | | | At | Signature | + +---------+ + + + | BLOOD | 193 (H) | 70 - 99 mg/dL | [facility] | | | GLUCOSE, | | | [facility] | | | POC | | | [facility] | | | | | | OF CARE | | | | | | TESTS | | + +---------+ + + + + + | Specimen | + + | | + + + + + + + | Performing | Address | City/State/Zipcode | Phone Number | | Organization | | | | + + + + + | [facility] | [address] | [place], [place] | | | [facility] | [address] | [address] | | | TESTS | | | | + + + + + CAPILLARY BLOOD GLUCOSE (NO CHG), POC (08/04/2017 3:41 PM PDT) + +---------+ + + + | Component | Value | Ref Range | Performed | Pathologist | | | | | At | Signature | + +---------+ + + + | BLOOD | 208 (H) | 70 - 99 mg/dL | [facility] | | | GLUCOSE, | | | [facility] | | | POC | | | [facility] | | | | | | OF CARE | | | | | | TESTS | | + +---------+ + + + + + | Specimen | + + | | + + + + + + + | Performing | Address | City/State/Zipcode | Phone Number | | Organization | | | | + + + + + | [facility] | [address] | [place], [place] | | | [facility] | [address] | [address] | | | TESTS | | | | + + + + + CAPILLARY BLOOD GLUCOSE (NO CHG), POC (08/04/2017 2:35 PM PDT) + +---------+ + + + | Component | Value | Ref Range | Performed | Pathologist | | | | | At | Signature | + +---------+ + + + | BLOOD | 177 (H) | 70 - 99 mg/dL | [facility] - | | | GLUCOSE, | | | [facility] | | | POC | | | [facility] | | | | | | OF CARE | | | | | | TESTS | | + +---------+ + + + + + | Specimen | + + | | + + + + + + + | Performing | Address | City/State/Zipcode | Phone Number | | Organization | | | | + + + + + | [facility] | [address] | [place], [place] | | | [facility] | [address] | [address] | | | TESTS | | | | + + + + + CAPILLARY BLOOD GLUCOSE (NO CHG), POC (08/04/2017 1:38 PM PDT) + +---------+ + + + | Component | Value | Ref Range | Performed | Pathologist | | | | | At | Signature | + +---------+ + + + | BLOOD | 191 (H) | 70 - 99 mg/dL | [facility] | | | GLUCOSE, | | | [facility] | | | POC | | | [facility] | | | | | | OF CARE | | | | | | TESTS | | + +---------+ + + + + + | Specimen | + + | | + + + + + + + | Performing | Address | City/State/Zipcode | Phone Number | | Organization | | | | + + + + + | [facility] | [address] | [place], [place] | | | [facility] | [address] | [address] | | | TESTS | | | | + + + + + CAPILLARY BLOOD GLUCOSE (NO CHG), POC (08/04/2017 12:10 PM PDT) + +---------+ + + + | Component | Value | Ref Range | Performed | Pathologist | | | | | At | Signature | + +---------+ + + + | BLOOD | 219 (H) | 70 - 99 mg/dL | [facility] | | | GLUCOSE, | | | [facility] | | | POC | | | [facility] | | | | | | OF CARE | | | | | | TESTS | | + +---------+ + + + + + | Specimen | + + | | + + + + + + + | Performing | Address | City/State/Zipcode | Phone Number | | Organization | | | | + + + + + | [facility] | [address] | [place], [place] | | | [facility] | [address] | [address] | | | TESTS | | | | + + + + + CAPILLARY BLOOD GLUCOSE (NO CHG), POC (08/04/2017 11:14 AM PDT) + +---------+ + + + | Component | Value | Ref Range | Performed | Pathologist | | | | | At | Signature | + +---------+ + + + | BLOOD | 188 (H) | 70 - 99 mg/dL | [facility] - | | | GLUCOSE, | | | [facility] | | | POC | | | [facility] | | | | | | OF CARE | | | | | | TESTS | | + +---------+ + + + + + | Specimen | + + | | + + + + + + + | Performing | Address | City/State/Zipcode | Phone Number | | Organization | | | | + + + + + | [facility] | [address] | [place], [place] | | | [facility] | [address] | [address] | | | TESTS | | | | + + + + + CAPILLARY BLOOD GLUCOSE (NO CHG), POC (08/04/2017 10:47 AM PDT) + +---------+ + + + | Component | Value | Ref Range | Performed | Pathologist | | | | | At | Signature | + +---------+ + + + | BLOOD | 168 (H) | 70 - 99 mg/dL | [facility] | | | GLUCOSE, | | | [facility] | | | POC | | | [facility] | | | | | | OF CARE | | | | | | TESTS | | + +---------+ + + + + + | Specimen | + + | | + + + + + + + | Performing | Address | City/State/Zipcode | Phone Number | | Organization | | | | + + + + + | [facility] | [address] | [place], [place] | | | [facility] | [address] | [address] | | | TESTS | | | | + + + + + CAPILLARY BLOOD GLUCOSE (NO CHG), POC (08/04/2017 10:02 AM PDT) + +---------+ + + + | Component | Value | Ref Range | Performed | Pathologist | | | | | At | Signature | + +---------+ + + + | BLOOD | 124 (H) | 70 - 99 mg/dL | [facility] | | | GLUCOSE, | | | [facility] | | | POC | | | [facility] | | | | | | OF CARE | | | | | | TESTS | | + +---------+ + + + + + | Specimen | + + | | + + + + + + + | Performing | Address | City/State/Zipcode | Phone Number | | Organization | | | | + + + + + | [facility] | [address] | [place], [place] | | | [facility] | [address] | [address] | | | TESTS | | | | + + + + + CBC (HEMOGRAM) ONLY (08/04/2017 9:21 AM PDT) + + + + + + | Component | Value | Ref Range | Performed | Pathologist | | | | | At | Signature | + + + + + + | WHITE CELL | 16.06 (H) | 3.50 - 10.80 | [facility] | | | COUNT | | K/cu mm | LABORATORY | | | | | | SERVICES, | | | | | | CORE | | + + + + + + | RED CELL | 3.83 (L) | 4.50 - 6.00 | [facility] | | | COUNT | | M/cu mm | LABORATORY | | | | | | SERVICES, | | | | | | CORE | | + + + + + + | HEMOGLOBIN | 12.2 (L) | 13.5 - 17.5 | [facility] | | | | | g/dL | LABORATORY | | | | | | SERVICES, | | | | | | CORE | | + + + + + + | HEMATOCRIT | 35.7 (L) | 41.0 - 53.0 % | [facility] | | | | | | LABORATORY | | | | | | SERVICES, | | | | | | CORE | | + + + + + + | MCV | 93.2 | 80.0 - 100.0 fL | [facility] | | | | | | LABORATORY | | | | | | SERVICES, | | | | | | CORE | | + + + + + + | MCHC | 34.2 | 32.0 - 36.0 | [facility] | | | | | g/dL | LABORATORY | | | | | | SERVICES, | | | | | | CORE | | + + + + + + | RDW SD | 49.4 (H) | 35.1 - 46.3 fL | [facility] | | | | | | LABORATORY | | | | | | SERVICES, | | | | | | CORE | | + + + + + + | PLATELET | 97 (L)Comment: Few | 150 - 400 K/cu | [facility] | | | COUNT | platelet clumps present. | mm | LABORATORY | | | | | | SERVICES, | | | | | | CORE | | + + + + + + | MPV | Comment: Not Measured | 9.7 - 12.3 fL | [facility] [...] Performed At | + + + | New reference ranges for MCV, MCHC, PLT, IG% and IG# effective | [facility] | | 06/24/2017 | [facility]ORATORY | | | [facility] | + + + + + + + + | Performing | Address | City/State/Zipcode | Phone Number | | Organization | | | | + + + + + | [facility] | [address] | [place] [address] | | | [facility] | [address] | | | + + + + + COMPLETE METABOLIC SET (NA,K,CL,CO2,BUN,CREAT,GLUC,CA,AST,ALT,BILI TOTAL,ALK PHOS,ALB,PROT TOTAL) (08/04/2017 9:21 AM PDT) + +---------+ + + + | Component | Value | Ref Range | Performed | Pathologist | | | | | At | Signature | + +---------+ + + + | GLUCOSE, | 131 (H) | 70 - 99 mg/dL | [facility] | | | PLASMA | | | LABORATORY | | | (LAB) | | | SERVICES, | | | | | | CORE | | + +---------+ + + + | BUN, PLASMA | 24 (H) | 6 - 20 mg/dL | [facility] | | | (LAB) | | | LABORATORY | | | | | | SERVICES, | | | | | | CORE | | + +---------+ + + + | CREATININE | 1.08 | 0.70 - 1.30 | [facility] | | | PLASMA | | mg/dL | LABORATORY | | | (LAB) | | | SERVICES, | | | | | | CORE | | + +---------+ + + + | EGFR | >60 | >60 mL/min | [facility] | | | - | | | LABORATORY | | | [facility] | | | SERVICES, | | | | | | CORE | | + +---------+ + + + | EGFR NON | >60 | >60 mL/min | [facility] | | | -[facility] | | | LABORATORY | | | [facility] | | | SERVICES, | | | | | | CORE | | + +---------+ + + + | SODIUM, | 139 | 136 - 145 | [facility] | | | PLASMA | | mmol/L | LABORATORY | | | (LAB) | | | SERVICES, | | | | | | CORE | | + +---------+ + + + | POTASSIUM, | 4.1 | 3.4 - 5.0 | [facility] | | | PLASMA | | mmol/L | LABORATORY | | | (LAB) | | | SERVICES, | | | | | | CORE | | + +---------+ + + + | CHLORIDE, | 108 | 97 - 108 mmol/L | [facility] | | | PLASMA | | | LABORATORY | | | (LAB) | | | SERVICES, | | | | | | CORE | | + +---------+ + + + | TOTAL CO2, | 23 | 21 - 32 mmol/L | [facility] | | | PLASMA | | | LABORATORY | | | (LAB) | | | SERVICES, | | | | | | CORE | | + +---------+ + + + | CALCIUM, | 8.0 (L) | 8.6 - 10.2 | [facility] [...] +---------+ + + + | BILIRUBIN | 2.1 (H) | 0.3 - 1.2 mg/dL | [facility] | | | TOTAL | | | LABORATORY | | | | | | SERVICES, | | | | | | CORE | | + +---------+ + + + | TOTAL | 5.8 (L) | 6.4 - 8.2 g/dL | [facility] | | | PROTEIN, | | | LABORATORY | | | PLASMA | | | SERVICES, | | | (LAB) | | | CORE | | + +---------+ + + + | ALBUMIN, | 1.9 (L) | 3.5 - 4.7 g/dL | [facility] | | | PLASMA | | | LABORATORY | | | (LAB) | | | SERVICES, | | | | | | CORE | | + +---------+ + + + | ALK PHOS | 153 (H) | 56 - 119 U/L | [facility] | | | | | | LABORATORY | | | | | | SERVICES, | | | | | | CORE | | + +---------+ + + + | AST(SGOT) | 44 (H) | <=41 U/L | [facility] | | | | | | LABORATORY | | | | | | SERVICES, | | | | | | CORE | | + +---------+ + + + | ALT (SGPT) | 43 | <=60 U/L | [facility] | | [...] +---------+ + + + | ANION | 13 (H) | 4 - 11 mmol/L | [facility] [...] the MDRD equation recommended by the | [facility] | | National Kidney Disease Education Program. [...] + | [facility] | [address] | [place] [address] | | | [facility] | [address] | | | + + + + + CAPILLARY BLOOD GLUCOSE (NO CHG), POC (08/04/2017 8:03 AM PDT) + +---------+ + + + | Component | Value | Ref Range | Performed | Pathologist | | | | | At | Signature | + +---------+ + + + | BLOOD | 149 (H) | 70 - 99 mg/dL | [facility] - | | | GLUCOSE, | | | [facility] | | | POC | | | [facility] | | | | | | OF CARE | | | | | | TESTS | | + +---------+ + + + + + | Specimen | + + | | + + + + + + + | Performing | Address | City/State/Zipcode | Phone Number | | Organization | | | | + + + + + | [facility] | [address] | [place], [place] | | | [facility] | [address] | [address] | | | TESTS | | | | + + + + + CAPILLARY BLOOD GLUCOSE (NO CHG), POC (08/04/2017 6:04 AM PDT) + +---------+ + + + | Component | Value | Ref Range | Performed | Pathologist | | | | | At | Signature | + +---------+ + + + | BLOOD | 146 (H) | 70 - 99 mg/dL | [facility] | | | GLUCOSE, | | | [facility] | | | POC | | | [facility] | | | | | | OF CARE | | | | | | TESTS | | + +---------+ + + + + + | Specimen | + + | | + + + + + + + | Performing | Address | City/State[facility] | Phone Number | | Organization | | | | + + + + + | [facility] | [address] | [place], [place] | | | [facility] | [facility] | [address] | | | TESTS | | | | + + + + + CAPILLARY BLOOD GLUCOSE (NO CHG), POC (08/04/2017 3:59 AM PDT) + +---------+ + + + | Component | Value | Ref Range | Performed | Pathologist | | | | | At | Signature | + +---------+ + + + | BLOOD | 157 (H) | 70 - 99 mg/dL | [facility] - | | | GLUCOSE, | | | [facility] | | | POC | | | [facility] | | | | | | [facility] CARE | | | | | | TESTS | | + +---------+ + + + + + | Specimen | + + | | + + + + + + + | Performing | Address | City/State/Zipcode | Phone Number | | Organization | | | | + + + + + | [facility] | [address] | [place], [place] | | | [facility] | [facility] | [address] | | | TESTS | | | | + + + + + CAPILLARY BLOOD GLUCOSE (NO CHG), POC (08/04/2017 2:04 AM PDT) + +---------+ + + + | Component | Value | Ref Range | Performed | Pathologist | | | | | At | Signature | + +---------+ + + + | BLOOD | 155 (H) | 70 - 99 mg/dL | [facility] - | | | GLUCOSE, | | | [place] | | | POC | | | [facility] | | | | | | [facility] CARE | | | | | | TESTS | | + +---------+ + + + + + | Specimen | + + | | + + + + + + + | Performing | Address | City/State/Zipcode | Phone Number | | Organization | | | | + + + + + | [facility] | [address] | [place], [place] | | | [facility] | [address] | [phone] | | | TESTS | | | | + + + + + CAPILLARY BLOOD GLUCOSE (NO CHG), POC (08/03/2017 11:57 PM PDT) + +---------+ + + + | Component | Value | Ref Range | Performed | Pathologist | | | | | At | Signature | + +---------+ + + + | BLOOD | 117 (H) | 70 - 99 mg/dL | [facility] | | | [facility], | | | [place] | | | POC | | | [facility] | | | | | | [facility] | | | | | | TESTS | | + +---------+ + + + + + | Specimen | + + | | + + + + + + + | Performing | Address | City/State/Zipcode | Phone Number | | Organization | | | | + + + + + | [facility] | [address] | [place], [place] | | | [facility] | [facility] | [address] | | | TESTS | | | | + + + + + CAPILLARY BLOOD GLUCOSE (NO CHG), POC (08/03/2017 11:02 PM PDT) + +---------+ + + + | Component | Value | Ref Range | Performed | Pathologist | | | | | At | Signature | + +---------+ + + + | BLOOD | 115 (H) | 70 - 99 mg/dL | [facility] - | | | GLUCOSE, | | | [facility] | | | POC | | | [facility] | | | | | | [facility] CARE | | | | | | TESTS | | + +---------+ + + + + + | Specimen | + + | | + + + + + + + | Performing | Address | City/State/Zipcode | Phone Number | | Organization | | | | + + + + + | [facility] | [address] | [place], [place] | | | [facility] | [facility] | [address] | | | TESTS | | | | + + + + + CAPILLARY BLOOD GLUCOSE (NO CHG), POC (08/03/2017 10:00 PM PDT) + +---------+ + + + | Component | Value | Ref Range | Performed | Pathologist | | | | | At | Signature | + +---------+ + + + | BLOOD | 118 (H) | 70 - 99 mg/dL | [facility] - | | | GLUCOSE, | | | [place] | | | POC | | | [facility] | | | | | | [facility] | | | | | | TESTS | | + +---------+ + + + + + | Specimen | + + | | + + + + + + + | Performing | Address | City/State/Zipcode | Phone Number | | Organization | | | | + + + + + | [facility] | [address] | [place], [place] | | | [facility] | [address] | [phone] | | | TESTS | | | | + + + + + X-RAY PORTABLE CHEST 1 VIEW (08/03/2017 9:48 PM PDT) + + | Specimen | + + | | + + + + + | Narrative | Performed At | + + + | EXAM: SC CHEST 1 VIEW HISTORY: Abdominal and chest pain. Status | [facility] | | post cholecystostomy tube placement. COMPARISON: Outside chest | RADIOLOGY VOICE | | radiograph and abdomen CT earlier today. FINDINGS: Lung | RECOGNITION 2 | | volumes are low. There is mild left basilar atelectasis, the lungs | | | otherwise clear. There is no pneumothorax. No pulmonary edema. Chronic | | | appearing right second rib fracture noted. Small right pleural | | | effusion likely present. Right upper quadrant percutaneous drain | | | consistent with cholecystostomy drain. IMPRESSION: Mild left | | | basilar atelectasis, otherwise clear lungs. Probable small right | | | pleural effusion. No pneumothorax. I have personally reviewed the | | | images and, if necessary, edited the report. I agree with the report | | | as now presented. Final signature: Manuel Beltran MD 08/04/2017 | | | 9:32 AM Preliminary: Manuel Beltran MD Dictation initiated: | | | Manuel Beltran MD 08/04/2017 9:29 AM | | + + + + + | Procedure Note | + + | Service Account, Radiant Res In Interface - 08/04/2017 9:33 AM PDT EXAM: SC CHEST 1 | | VIEW HISTORY: Abdominal and chest pain. Status post cholecystostomy tube placement. | | COMPARISON: Outside chest radiograph and abdomen CT earlier today. FINDINGS: Lung | | volumes are low. There is mild left basilar atelectasis, the lungs otherwise clear. | | There is no pneumothorax. No pulmonary edema. Chronic appearing right second rib | | fracture noted. Small right pleural effusion likely present. Right upper quadrant | | percutaneous drain consistent with cholecystostomy drain. IMPRESSION: Mild left basilar | | atelectasis, otherwise clear lungs. Probable small right pleural effusion. No | | pneumothorax. I have personally reviewed the images and, if necessary, edited the | | report. I agree with the report as now presented. Final signature: Manuel Beltran MD | | 08/04/2017 9:32 AM Preliminary: Manuel Beltran MD Dictation initiated: Manuel Beltran | | 08/04/2017 9:29 AM | | | |Mild left basilar atelectasis, otherwise clear lungs. Probable small right pleural effusion . No pneumothorax. | | | |I have personally reviewed the images and, if necessary, edited the report. I agree with th e report as now presented. | | | |Final signature: Manuel Beltran MD 08/04/2017 9:32 AM | |Preliminary: Manuel Beltran MD | |Dictation initiated: Manuel Beltran MD 08/04/2017 9:29 AM | + + + +---------+ + + | Performing | Address | City/State/Zipcode | Phone Number | | Organization | | | | + +---------+ + + | [facility] | | | | | VOICE RECOGNITION 2 | | | | + +---------+ + + CAPILLARY BLOOD GLUCOSE (NO CHG), POC (08/03/2017 9:10 PM PDT) + +---------+ + + + | Component | Value | Ref Range | Performed | Pathologist | | | | | At | Signature | + +---------+ + + + | BLOOD | 169 (H) | 70 - 99 mg/dL | [facility] | | | GLUCOSE, | | | [facility] | | | POC | | | [facility] | | | | | | OF CARE | | | | | | TESTS | | + +---------+ + + + + + | Specimen | + + | | + + + + + + + | Performing | Address | City/State/Zipcode | Phone Number | | Organization | | | | + + + + + | [facility] | [address] | [place], [place] | | | [facility] | [address] | [address] | | | TESTS | | | | + + + + + CULTURE, BLOOD BACTI & YEAST LINDA (08/03/2017 9:09 PM PDT) + + + + + + | Component | Value | Ref Range | Performed | Pathologist | | | | | At | Signature | + + + + + + | CULTURE | Final Report:No Bacteria | | [facility] | | | RESULT | or Yeast isolated at 5 | | LABORATORY | | | | days. | | SERVICES, | | | | | | CORE | | + + + + + + + + | Specimen | + + | Blood - Structure of | | left wrist (body | | structure) | + + + + + + + | Performing | Address | City/State/Zipcode | Phone Number | | Organization | | | | + + + + + | [facility] | [address] | [place] [address] | | | SERVICES, CORE | [address] | | | + + + + + CBC (HEMOGRAM) ONLY (08/03/2017 9:09 PM PDT) + + + + + + | Component | Value | Ref Range | Performed | Pathologist | | | | | At | Signature | + + + + + + | WHITE CELL | 13.69 (H) | 3.50 - 10.80 | [facility] | | | COUNT | | K/cu mm | LABORATORY | | | | | | SERVICES, | | | | | | CORE | | + + + + + + | RED CELL | 4.30 (L) | 4.50 - 6.00 | [facility] | | | COUNT | | M/cu mm | LABORATORY | | | | | | SERVICES, | | | | | | CORE | | + + + + + + | HEMOGLOBIN | 13.8 | 13.5 - 17.5 | [facility] | | | | | g/dL | LABORATORY | | | | | | SERVICES, | | | | | | CORE | | + + + + + + | HEMATOCRIT | 40.3 (L) | 41.0 - 53.0 % | [facility] | | | | | | LABORATORY | | | | | | SERVICES, | | | | | | CORE | | + + + + + + | MCV | 93.7 | 80.0 - 100.0 fL | [facility] | | | | | | LABORATORY | | | | | | SERVICES, | | | | | | CORE | | + + + + + + | MCHC | 34.2 | 32.0 - 36.0 | [facility] | | | | | g/dL | LABORATORY | | | | | | SERVICES, | | | | | | CORE | | + + + + + + | RDW SD | 48.4 (H) | 35.1 - 46.3 fL | [facility] | | | | | | LABORATORY | | | | | | SERVICES, | | | | | | CORE | | + + + + + + | PLATELET | 137 (L)Comment: Few | 150 - 400 K/cu | [facility] | | | COUNT | platelet clumps present. | mm | LABORATORY | | | | Macroplatelets present. | | SERVICES, | | | | | | CORE | | + + + + + + | MPV | 11.2 | 9.7 - 12.3 fL | [facility] [...] Performed At | + + + | New reference ranges for MCV, MCHC, PLT, IG% and IG# effective | [facility] | | 06/24/2017 | LABORATORY | | | SERVICES, CORE | + + + + + + + + | Performing | Address | City/State/Zipcode | Phone Number | | Organization | | | | + + + + + | [facility] | [address] | [place] [address] | | | SERVICES, CORE | [address] | | | + + + + + BASIC METABOLIC SET (NA, K, CL, TCO2, BUN, CR, GLU, CA) (08/03/2017 9:09 PM PDT) + +---------+ + + + | Component | Value | Ref Range | Performed | Pathologist | | | | | At | Signature | + +---------+ + + + | GLUCOSE, | 155 (H) | 70 - 99 mg/dL | [facility] | | | PLASMA | | | LABORATORY | | | (LAB) | | | SERVICES, | | | | | | CORE | | + +---------+ + + + | BUN, PLASMA | 19 | 6 - 20 mg/dL | [facility] | | | (LAB) | | | LABORATORY | | | | | | SERVICES, | | | | | | CORE | | + +---------+ + + + | CREATININE | 1.04 | 0.70 - 1.30 | [facility] | | | PLASMA | | mg/dL | LABORATORY | | | (LAB) | | | SERVICES, | | | | | | CORE | | + +---------+ + + + | EGFR | >60 | >60 mL/min | [facility] | | | - | | | LABORATORY | | | SYRIAN | | | SERVICES, | | | | | | CORE | | + +---------+ + + + | EGFR NON | >60 | >60 mL/min | [facility] | | | -BARI | | | LABORATORY | | | RICAN | | | SERVICES, | | | | | | CORE | | + +---------+ + + + | SODIUM, | 139 | 136 - 145 | [facility] | | | PLASMA | | mmol/L | LABORATORY | | | (LAB) | | | SERVICES, | | | | | | CORE | | + +---------+ + + + | POTASSIUM, | 3.8 | 3.4 - 5.0 | [facility] | | | PLASMA | | mmol/L | LABORATORY | | | (LAB) | | | SERVICES, | | | | | | CORE | | + +---------+ + + + | CHLORIDE, | 108 | 97 - 108 mmol/L | [facility] [...] +---------+ + + + | CALCIUM, | 8.3 (L) | 8.6 - 10.2 | [facility] | | | PLASMA | | mg/dL | LABORATORY | | | (LAB) | | | SERVICES, | | | | | | CORE | | + +---------+ + + + | ANION GAP | 12 (H) | 4 - 11 mmol/L | [facility] [...] | + + + + + | [facility] | [address] | [place] [address] | | | SERVICES, JORGE L | [address] | | | + + + + + TROPONIN I, PLASMA (08/03/2017 8:45 PM PDT) + +-------+ + + + | Component | Value | Ref Range | Performed | Pathologist | | | | | At | Signature | + +-------+ + + + | TROPONIN I | <0.02 | <0.80 ng/mL | [facility] | | | | | [...] + | [facility] | [address] | [place] [address] | | | [facility] [address] [facility] | [address] | | | + + + + + 12 LEAD ECG (08/03/2017 8:40 PM PDT) + + + + + + | Component | Value | Ref Range | Performed | Pathologist | | | | | At | Signature | + + + + + + | VENTRICULAR | 118 | bpm | [facility] | | | RATE | | | OF | | | | | | CARDIOLOGY | | + + + + + + | ATRIAL RATE | 118 | ms | [facility] | | | | | | OF | | | | | | CARDIOLOGY | | + + + + + + | P-R | 161 | ms | [facility] | | | INTERVAL | | | OF | | | | | | CARDIOLOGY | | + + + + + + | P AXIS | 27 | deg | [facility] | | | | | | OF | | | | | | CARDIOLOGY | | + + + + + + | QRS | 82 | ms | [facility] | | | DURATION | | | OF | | | | | | CARDIOLOGY | | + + + + + + | QT | 328 | ms | [facility] | | | | | | OF | | | | | | CARDIOLOGY | | + + + + + + | QTCB | 460 | ms | [facility] | | | | | | OF | | | | | | CARDIOLOGY | | + + + + + + | R AXIS | -72 | deg | [facility] | | | | | | OF | | | | | | CARDIOLOGY | | + + + + + + | T AXIS | -29 | deg | [facility] | | | | | | OF | | | | | | CARDIOLOGY | | + + + + + + | ECG | Sinus tachycardia | | [facility] | | | IMPRESSION | | | OF | | | | | | CARDIOLOGY | | + + + + + + | ECG | Multiple ventricular | | [facility] | | | IMPRESSION | premature complexes | | OF | | | | | | CARDIOLOGY | | + + + + + + | ECG | Inferior infarct, age | | [facility] | | | IMPRESSION | indeterminate | | OF | | | | | | CARDIOLOGY | | + + + + + + | ECG | Anterior ST depression, | | [facility] | | | IMPRESSION | consider ischemia- | | OF | | | | ABNORMAL ECG - | | CARDIOLOGY | | + + + + + + | ECG | Electronically signed | | [facility] | | | IMPRESSION | by: VIRGINIA BHAT | | OF | | | | 08-05-2017 11:51:52 | | CARDIOLOGY | | + + [...] + | [facility] | [address] | [place], [place] | | | CARDIOLOGY | [address] | [address] | | + + + + + CAPILLARY BLOOD GLUCOSE (NO CHG), POC (08/03/2017 7:57 PM PDT) + +---------+ + + + | Component | Value | Ref Range | Performed | Pathologist | | | | | At | Signature | + +---------+ + + + | BLOOD | 177 (H) | 70 - 99 mg/dL | [facility] | | | GLUCOSE, | | | [facility] | | | POC | | | [place] [place] | | | | | | OF CARE | | | | | | TESTS | | + +---------+ + + + + + | Specimen | + + | | + + + + + + + | Performing | Address | City/State/Zipcode | Phone Number | | Organization | | | | + + + + + | [facility] | [address] | [place], [place] | | | [facility] | [facility] | [address] | | | TESTS | | | | + + + + + CAPILLARY BLOOD GLUCOSE (NO CHG), POC (08/03/2017 7:00 PM PDT) + +---------+ + + + | Component | Value | Ref Range | Performed | Pathologist | | | | | At | Signature | + +---------+ + + + | BLOOD | 168 (H) | 70 - 99 mg/dL | [facility] | | | GLUCOSE, | | | [facility] | | | POC | | | [facility] | | | | | | OF CARE | | | | | | TESTS | | + +---------+ + + + + + | Specimen | + + | | + + + + + + + | Performing | Address | City/State/Zipcode | Phone Number | | Organization | | | | + + + + + | [facility] | [address] | [place], [place] | | | [facility] | [address] | [address] | | | TESTS | | | | + + + + + CULTURE, WOUND ABSCESS OR ASPIRATE W/ ANAEROBE (08/03/2017 6:52 PM PDT) + + + + + + | Component | Value | Ref Range | Performed | Pathologist | | | | | At | Signature | + + + + + + | CULTURE | Escherichia coli (A) | | FLO[facility] - | | | RESULT | | | [facility] - | | | | | | [place] | | + + + + + + + + | Specimen | + + | Abscess - | | Gallbladder | | structure (body | | structure) | + + + + + | Narrative | Performed At | + + + | Culture Report: 4+ Escherichia coli No anaerobic organisms | FLOOD - | | isolated Gram Stain: No squamous epithelial cells Many | AIR[facility] - | | polymorphonuclear cells Many Gram negative bacilli | [place] | + + + + + + + + | Organism | Antibiotic | Method | Susceptibility | + + + + + | Escherichia coli | Amoxicillin/Clavulan | SUSCEPTIBILITY-GABI | Resistant | | | ate | | | + + + + + | Escherichia coli | Ampicillin | SUSCEPTIBILITY-GABI | Resistant | + + + + + | Escherichia coli | Cefazolin | SUSCEPTIBILITY-GABI | Resistant | + + + + + | Escherichia coli | Ceftriaxone | SUSCEPTIBILITY-GABI | Sensitive | + + + + + | Escherichia coli | Ciprofloxacin | SUSCEPTIBILITY-GABI | Sensitive | + + + + + | Escherichia coli | Gentamicin | SUSCEPTIBILITY-GABI | Sensitive | + + + + + | Escherichia coli | Piperacillin/Tazobac | SUSCEPTIBILITY-GABI | Sensitive | | | hernandez | | | + + + + + | Escherichia coli | Tobramycin | SUSCEPTIBILITY-GABI | Sensitive | + + + + + | Escherichia coli | Trimethoprim/Sulfa | SUSCEPTIBILITY-GABI | Sensitive | + + + + + + + + + + | Performing | Address | City/State/Zipcode | Phone Number | | Organization | | | | + + + + + | [facility] - | [address] | [place] [address] | | | [facility] | | | | + + + + + GRAM ESEQUIEL ONLY, STAT (08/03/2017 6:52 PM PDT) + + + + + + | Component | Value | Ref Range | Performed | Pathologist | | | | | At | Signature | + + + + + + | GRAM STAIN | Organisms present | No organisms | [facility] | | | RESULT | (AA)Comment: ManyGram | seen | LABORATORY | | | | negative | | SERVICES, | | | | bacilli.ManyWhite blood | | CORE | | | | cells present. | | | | | |White blood cells present. | | | | | | | | | | + + + + + + | SMEAR | Direct smear | | [facility] | | | PREPARATION | | | LABORATORY | | | | | | SERVICES, | | | | | | CORE | | + + + + + + | SOURCE BODY | gall bladder | | [facility] | | | SITE | | | LABORATORY | | | | | | SERVICES, | | | | | | CORE | | + + + + + + + + | Specimen | + + | Fluid - Gallbladder | | structure (body | | structure) | + + + + + + + | Performing | Address | City/State/Zipcode | Phone Number | | Organization | | | | + + + + + | [facility] | [address] [facility] | [place] [address] | | | SERVICES, CORE | [address] | | | + + + + + IR DRAIN PROCEDURE (08/03/2017 6:37 PM PDT) + + | Specimen | + + | | + + + + + | Narrative | Performed At | + + + | Procedure: Percutaneous Cholecystostomy Primary | [facility] | | Interventionalist: Cherise Bhatti MD Attending Interventionalist: | RADIOLOGY VOICE | | Chrissie Monteiro MD Preoperative diagnosis: cholecystitis | RECOGNITION | | Postoperative diagnosis: Same Operations: Operation 1. US | | | guided placement 10.2 [place] MPD drainage catheter into gallbladder | | | Operation 2. Fluoroscopic guided confirmation of 10.2 [place] MPD | | | drainage catheter Indications: 61 year-old male with acute | | | calculous cholecystitis c/b acute focal perforation presenting for | | | percutaneous cholecystostomy tube placement. Patient is a poor | | | surgical candidate due to HCV/Et[place] cirrhosis c/b esophageal varices/HE | | | and severe CAD. Procedure: The patient, procedure, and | | | allergies were confirmed in the presence of the patient by the | | | attending.The attending physician was present for the entire | | | procedure. Written informed consent was obtained from the patient. | | | The procedure was performed with intravenous sedation. The | | | patient was prepped and draped in the usual manner. Using local | | | anesthetic and US guidance a 18G Campos needle was advanced to the | | | gallbladder through transhepatic access from an intercostal approach. | | | A 10.2 [place]ander MPD catheter was advanced directly into the gallbladder | | | over Amplatz wire. Infectious bile was aspirated. An US image was | | | obtained of the catheter in the collection and recorded. The catheter | | | was aspirated and placed to gravity drainage. The catheter was secured | | | in place. A completion digital image was obtained. Findings: | | | The US findings are consistent with calculous cholecystitis. A | | | total of 240cc of pus was aspirated. An 10.2 Multipurpose drainage | | | catheter was positioned in the gallbladder. Impression: | | | Successful placement of a 10.2-F MPD cholecystostomy tube. 240 mL of | | | pus was aspirated and a specimen was sent for culture. Tube was | | | connected to gravity drainage. I have personally reviewed the | | | images and, if necessary, edited the report. I agree with the report | | | as now presented. | | + + + + + | Procedure Note | + + | Service Account, [facility] In Interface - 08/20/2017 2:24 PM PDT Procedure: | | Percutaneous CholecystostomyPrimary Interventionalist: Shawna Fregoso | | Interventionalist: ESCOBAR Kelleyreoperative diagnosis: | | cholecystitisPostoperative diagnosis: SameOperations:Operation 1. US guided placement | | 10.2 [place] MPD drainage catheter into gallbladderOperation 2. Fluoroscopic guided | | confirmation of 10.2 [place] MPD drainage catheterIndications:61 year-old male with acute | | calculous cholecystitis c/b acute focal perforation presenting for percutaneous | | cholecystostomy tube placement. Patient is a poor surgical candidate due to HCV/Et[place] | | cirrhosis c/b esophageal varices/HE and severe CAD.Procedure:The patient, procedure, and | | allergies were confirmed in the presence of the patient by the attending.The attending | | physician was present for the entire procedure. Written informed consent was obtained | | from the patient. The procedure was performed with intravenous sedation.The patient was | | prepped and draped in the usual manner. Using local anesthetic and US guidance a 18G | | Campos needle was advanced to the gallbladder through transhepatic access from an | | intercostal approach. A 10.2 [place] MPD catheter was advanced directly into the | | gallbladder over Amplatz wire. Infectious bile was aspirated. An US image was obtained | | of the catheter in the collection and recorded. The catheter was aspirated and placed to | | gravity drainage. The catheter was secured in place. A completion digital image was | | obtained.Findings:The US findings are consistent with calculous cholecystitis. A total | | of 240cc of pus was aspirated. An 10.2 Multipurpose drainage catheter was positioned | | in the gallbladder.Impression:Successful placement of a 10.2-F MPD cholecystostomy tube. | | 240 mL of pus was aspirated and a specimen was sent for culture. Tube was connected to | | gravity drainage.I have personally reviewed the images and, if necessary, edited the | | report. I agree with the report as now presented. | |The procedure was performed with intravenous sedation. | | | |The patient was prepped and draped in the usual manner. Using local anesthetic and US mallory nce a 18G Campos needle was advanced to the gallbladder through transhepatic access from an intercostal approach. A | |10.2 [place] MPD catheter was advanced directly into the gallbladder over Amplatz wire. Infe ctious bile was aspirated. An US image was obtained of the catheter in the collection and re corded. The catheter was aspirated | |and placed to gravity drainage. The catheter was secured in place. A completion digital im age was obtained. | | | |Findings: | | | |The US findings are consistent with calculous cholecystitis. A total of 240cc of pus was aspirated. An 10.2 Multipurpose drainage catheter was positioned in the gallbladder. | | | | | |Impression: | |Successful placement of a 10.2-F MPD cholecystostomy tube. 240 mL of pus was aspirated and a specimen was sent for culture. Tube was connected to gravity drainage. | | | | | |I have personally reviewed the images and, if necessary, edited the report. I agree with t he report as now presented. | + + + +---------+ + + | Performing | Address | City/State/Zipcode | Phone Number | | Organization | | | | + +---------+ + + | [facility] | | | | | VOICE RECOGNITION | | | | + +---------+ + + CAPILLARY BLOOD GLUCOSE (NO CHG), POC (08/03/2017 5:54 PM PDT) + +---------+ + + + | Component | Value | Ref Range | Performed | Pathologist | | | | | At | Signature | + +---------+ + + + | BLOOD | 165 (H) | 70 - 99 mg/dL | [facility] | | | GLUCOSE, | | | [place] | | | POC | | | [facility] | | | | | | OF CARE | | | | | | TESTS | | + +---------+ + + + + + | Specimen | + + | | + + + + + + + | Performing | Address | City/State/Zipcode | Phone Number | | Organization | | | | + + + + + | [facility] | [address] | [place], [place] | | | [facility] | [address] | [address] | | | TESTS | | | | + + + + + CAPILLARY BLOOD GLUCOSE (NO CHG), POC (08/03/2017 5:09 PM PDT) + +---------+ + + + | Component | Value | Ref Range | Performed | Pathologist | | | | | At | Signature | + +---------+ + + + | BLOOD | 204 (H) | 70 - 99 mg/dL | [facility] | | | GLUCOSE, | | | [place] | | | POC | | | [facility] | | | | | | OF CARE | | | | | | TESTS | | + +---------+ + + + + + | Specimen | + + | | + + + + + + + | Performing | Address | City/State/Zipcode | Phone Number | | Organization | | | | + + + + + | [facility] | [address] | [place], [place] | | | [facility] | [facility] | [address] | | | TESTS | | | | + + + + + CAPILLARY BLOOD GLUCOSE (NO CHG), POC (08/03/2017 4:03 PM PDT) + +---------+ + + + | Component | Value | Ref Range | Performed | Pathologist | | | | | At | Signature | + +---------+ + + + | BLOOD | 252 (H) | 70 - 99 mg/dL | [facility] | | | GLUCOSE, | | | [place] | | | POC | | | [facility] | | | | | | OF CARE | | | | | | TESTS | | + +---------+ + + + + + | Specimen | + + | | + + + + + + + | Performing | Address | City/State/Zipcode | Phone Number | | Organization | | | | + + + + + | [facility] | [address] | [place], [place] | | | [facility] | [facility] | [address] | | | TESTS | | | | + + + + + CAPILLARY BLOOD GLUCOSE (NO CHG), POC (08/03/2017 3:03 PM PDT) + +---------+ + + + | Component | Value | Ref Range | Performed | Pathologist | | | | | At | Signature | + +---------+ + + + | BLOOD | 292 (H) | 70 - 99 mg/dL | [facility] - | | | GLUCOSE, | | | [facility] | | | POC | | | [facility] | | | | | | OF CARE | | | | | | TESTS | | + +---------+ + + + + + | Specimen | + + | | + + + + + + + | Performing | Address | City/State/Zipcode | Phone Number | | Organization | | | | + + + + + | [facility] | [address] | [place], [place] | | | [facility] | [address] | [address] | | | TESTS | | | | + + + + + 12 LEAD ECG (08/03/2017 1:54 PM PDT) + + + + + + | Component | Value | Ref Range | Performed | Pathologist | | | | | At | Signature | + + + + + + | VENTRICULAR | 58 | bpm | [facility] | | | RATE | | | OF | | | | | | CARDIOLOGY | | + + + + + + | ATRIAL RATE | 58 | ms | [facility] | | | | | | OF | | | | | | CARDIOLOGY | | + + + + + + | P-R | 176 | ms | [facility] | | | INTERVAL | | | OF | | | | | | CARDIOLOGY | | + + + + + + | P AXIS | 36 | deg | [facility] | | | | | | OF | | | | | | CARDIOLOGY | | + + + + + + | QRS | 93 | ms | [facility] | | | DURATION | | | OF | | | | | | CARDIOLOGY | | + + + + + + | QT | 433 | ms | [facility] | | | | | | OF | | | | | | CARDIOLOGY | | + + + + + + | QTCB | 427 | ms | [facility] | | | | | | OF | | | | | | CARDIOLOGY | | + + + + + + | R AXIS | -61 | deg | [facility] | | | | | | OF | | | | | | CARDIOLOGY | | + + + + + + | T AXIS | -25 | deg | [facility] | | | | | | OF | | | | | | CARDIOLOGY | | + + + + + + | ECG | Sinus bradycardia | | [facility] | | | IMPRESSION | | | OF | | | | | | CARDIOLOGY | | + + + + + + | ECG | Inferior infarct, age | | [facility] | | | IMPRESSION | indeterminate | | OF | | | | | | CARDIOLOGY | | + + + + + + | ECG | Nonspecific inferior and | | [facility] | | | IMPRESSION | lateral T wave | | OF | | | | abnormality- ABNORMAL | | CARDIOLOGY | | | | ECG - | | | | + + + + + + | ECG | Electronically signed | | [facility] | | | IMPRESSION | by: VIRGINIA BHAT | | OF | | | | 08-03-2017 19:58:46 | | CARDIOLOGY | | + + [...] + | [facility] | [address] | [place], [place] | | | CARDIOLOGY | [address] | [address] | | + + + + + CONFIRMATORY ABO/RH (08/03/2017 1:09 PM PDT) + + + + + [...] | + + + + + | [facility] | [address] [facility] | [place] [address] | | | SERVICES, | [address] | | | | TRANSFUSION MEDICINE | | | | + + + + + AMMONIA, PLASMA (08/03/2017 1:02 PM PDT) + +--------+ + + + | Component | Value | Ref Range | Performed | Pathologist | | | | | At | Signature | + +--------+ + + + | AMMONIA | 44 (H) | 11 - 35 umol/L | [facility] | | | (LAB) | | | LABORATORY | | | | | | SERVICES, | | | | | | CORE | | + +--------+ + + + + + | Specimen | + + | Blood - Blood | | (substance) | + + + + + + + | Performing | Address | City/State/Zipcode | Phone Number | | Organization | | | | + + + + + | [facility] | [address] | [place] [address] | | | SERVICES, CORE | [address] | | | + + + + + INR (08/03/2017 11:30 AM PDT) + +-------+ + + + | Component | Value | Ref Range | Performed | Pathologist | | | | | At | Signature | + +-------+ + + + | INR | 1.15 | 0.90 - 1.20 INR | [facility] [...] | + + + + + | [facility] | [address] | [place] [address] | | | SERVICESJORGE L | [address] | | | + + + + + ANTIBODY SCREEN (08/03/2017 11:29 AM PDT) + + + + + [...] [facility] | [address] | [place] [address] | | | SERVICES, | [address] | | | | TRANSFUSION MEDICINE | | | | + + + + + ABO & RH TYPE (08/03/2017 11:29 AM PDT) + + + + + [...] + | [facility] | [address] | [place] [address] | | | SERVICES, | [address] | | | | TRANSFUSION MEDICINE | | | | + + + + + CBC AND AUTO DIFF (08/03/2017 11:29 AM PDT) + + + + + + | Component | Value | Ref Range | Performed | Pathologist | | | | | At | Signature | + + + + + + | WHITE CELL | 16.10 (H) | 3.50 - 10.80 | [facility] | | | COUNT | | K/cu mm | LABORATORY | | | | | | SERVICES, | | | | | | CORE | | + + + + + + | RED CELL | 4.28 (L) | 4.50 - 6.00 | [facility] | | | COUNT | | M/cu mm | LABORATORY | | | | | | SERVICES, | | | | | | CORE | | + + + + + + | HEMOGLOBIN | 13.6 | 13.5 - 17.5 | [facility] | | | | | g/dL | LABORATORY | | | | | | SERVICES, | | | | | | CORE | | + + + + + + | HEMATOCRIT | 39.8 (L) | 41.0 - 53.0 % | [facility] | | | | | | LABORATORY | | | | | | SERVICES, | | | | | | CORE | | + + + + + + | MCV | 93.0 | 80.0 - 100.0 fL | [facility] | | | | | | LABORATORY | | | | | | SERVICES, | | | | | | CORE | | + + + + + + | MCHC | 34.2 | 32.0 - 36.0 | [facility] | | | | | g/dL | LABORATORY | | | | | | SERVICES, | | | | | | CORE | | + + + + + + | RDW SD | 49.0 (H) | 35.1 - 46.3 fL | [facility] | | | | | | LABORATORY | | | | | | SERVICES, | | | | | | CORE | | + + + + + + | PLATELET | 134 (L)Comment: Few | 150 - 400 K/cu | [facility] | | | COUNT | platelet clumps present. | mm | LABORATORY | | | | Macroplatelets present. | | SERVICES, | | | | | | CORE | | + + + + + + | MPV | 11.2 | 9.7 - 12.3 fL | [facility] [...] + + + + + + | NEUTROPHIL | 80.4 (H) | 50.0 - 70.0 % | [facility] | | | % | | | LABORATORY | | | | | | SERVICES, | | | | | | CORE | | + + + + + + | LYMPHOCYTE | 9.5 (L) | 18.0 - 42.0 % | [facility] | | | % | | | LABORATORY | | | | | | SERVICES, | | | | | | CORE | | + + + + + + | MONOCYTE % | 8.4 | 3.5 - 9.0 % | [facility] | | | | | | LABORATORY | | | | | | SERVICES, | | | | | | CORE | | + + + + + + | EOS % | 0.6 (L) | 1.0 - 3.0 % | [facility] | | | | | | LABORATORY | | | | | | SERVICES, | | | | | | CORE | | + + + + + + | BASO % | 0.4 | 0.0 - 2.0 % | [facility] | | | | | | LABORATORY | | | | | | SERVICES, | | | | | | CORE | | + + + + + + | IG% | 0.7Comment: Increased | 0.0 - 1.0 % | [facility] | | | | immature granulocytes | | LABORATORY | | | | (IG) define a left | | SERVICES, | | | | shift. Immature | | CORE | | | | granulocytes (IG) are an | | | | | | automated count of | | | | | | metamyelocytes, | | | | | | myelocytes and | | | | | | promyelocytes. Bands | | | | | | are not included in the | | | | | | IG count. Bands are | | | | | | included in the | | | | | | neutrophil count. | | | | + + + + + + | NEUTROPHIL | 12.93 (H) | 1.80 - 7.70 | [facility] | | | # | | K/cu mm | LABORATORY | | | | | | SERVICES, | | | | | | CORE | | + + + + + + | LYMPHOCYTE | 1.53 | 1.00 - 4.80 | [facility] | | | # | | K/cu mm | LABORATORY | | | | | | SERVICES, | | | | | | CORE | | + + + + + + | MONOCYTE # | 1.36 (H) | 0.10 - 0.90 | [facility] | | | | | K/cu mm | LABORATORY | | | | | | SERVICES, | | | | | | CORE | | + + + + + + | EOS # | 0.10 | 0.00 - 0.50 | [facility] | | | | | K/cu mm | LABORATORY | | | | | | SERVICES, | | | | | | CORE | | + + + + + + | BASO # | 0.06 | 0.00 - 0.10 | [facility] | | | | | K/cu mm | LABORATORY | | | | | | SERVICES, | | | | | | CORE | | + + + + + + | IG# | 0.12 (H) | 0.00 - 0.10 | [facility] | | | | | K/cu mm | LABORATORY | | | | | | SERVICES, | | | | | | CORE | | + + + + + + + + | Specimen | + + | Blood - Blood | | (substance) | + + + + + | Narrative | Performed At | + + + | New pediatric reference ranges for Lymphocyte % in effect July 29 | [facility] | | 2018. New reference ranges for MCV, MCHC, PLT, IG% and IG# | LABORATORY | | effective 06/24/2017 Increased immature granulocytes (IG) define a | SERVICES, CORE | | left shift. Immature granulocytes (IG) are an automated count of | | | metamyelocytes, myelocytes and promyelocytes. Bands are not included | | | in the IG count. Bands are included in the neutrophil count. | | + + + + + + + + | Performing | Address | City/State/Zipcode | Phone Number | | Organization | | | | + + + + + | [facility] | [address] | [place] [address] | | | SERVICES, [facility] | [address] | | | + + + + + HEMOGLOBIN A1C, BLOOD (08/03/2017 11:29 AM PDT) + + + + + + | Component | Value | Ref Range | Performed | Pathologist | | | | | At | Signature | + + + + + + | HEMOGLOBIN | 9.8 (H)Comment: Hgb A1C | <5.7 % | [facility] | | | A1C | Interpretive | | LABORATORY | | | | Information: | | SERVICES, | | | | <5.7% - Normal | | SPECIAL IMM | | | | 5.7-6.4% - Consistent | | + [facility] | | | | with pre-diabetes | | | | | | >6.4% - Consistent | | | | | | with diabetes | | | | | | | | | | + + + + + + + + | Specimen | + + | Blood - Blood | | (substance) | + + + + + | Narrative | Performed At | + + + | Alternate forms of testing such as fructosamine should be | [facility] | | considered for monitoring termite exterminator helper glycemic control in patients with: | LABORATORY | | Increased red cell turnover, certain hemoglobinopathies (e.g., HbS, | SERVICES, | | HbE, HbC and thalassemia syndromes), anemias, blood loss, chronic | SPECIAL IMM + | | liver disease and hemochromatosis (artefactually low HbA1c); iron | [facility] | | deficiency anemia (artefactually high HbA1c due to enhanced glycation | | | of hemoglobin). | | + + + + + + + + | Performing | Address | City/State/Zipcode | Phone Number | | Organization | | | | + + + + + | [facility] | [address] | [place] [address] | | | SERVICES, SPECIAL | [address] | | | | IMM + [facility] | | | | + + + + + TROPONIN I, PLASMA (08/03/2017 11:29 AM PDT) + +-------+ + + + | Component | Value | Ref Range | Performed | Pathologist | | | | | At | Signature | + +-------+ + + + | TROPONIN I | <0.02 | <0.80 ng/mL | [facility] | | | | | | LABORATORY [...] + | [facility] | [address] | [place] [address] | | | SERVICES, CORE | [address] | | | + + + + + LACTATE (08/03/2017 11:29 AM PDT) + +-------+ + + + | Component | Value | Ref Range | Performed | Pathologist | | | | | At | Signature | + +-------+ + + + | LACTATE | 2.4 | mmol/L | [facility] | | | | | | LABORATORY | | | | | | SERVICES, | | | | | | CORE | | + +-------+ + + + + + | Specimen | + + | Blood - Blood | | (substance) | + + + + + | Narrative | Performed At | + + + | Reference Range: Venous blood: 0.5 - 2.2 mmol/L Critical | [facility] | | >= 4.0 mmol/L Arterial blood: 0.5 - 1.6 mmol/L Critical >= 4.0 | LABORATORY | | mmol/L | MICHEAL, JORGE L | + + + + + + + + | Performing | Address | City/State/Zipcode | Phone Number | | Organization | | | | + + + + + | [facility] | [address] | [place] [address] | | | MICHEAL, JORGE L | [address] | | | + + + + + MAGNESIUM, PLASMA (08/03/2017 11:29 AM PDT) + +-------+ + + + | Component | Value | Ref Range | Performed | Pathologist | | | | | At | Signature | + +-------+ + + + | MAGNESIUM,P | 1.6 | 1.6 - 2.6 mg/dL | [facility] | | | LASMA | | | LABORATORY | | | | | | SERVICES, | | | | | | CORE | | + +-------+ + + + + + | Specimen | + + | Blood - Blood | | (substance) | + + + + + | Narrative | Performed At | + + + | Reference range change effective 09/29/16. | [facility] | | | LABORATORY | | | SERVICES, CORE | + + + + + + + + | Performing | Address | City/State/Zipcode | Phone Number | | Organization | | | | + + + + + | [facility] | [address] | [place] [address] | | | SERVICES, CORE | [address] | | | + + + + + COMPLETE METABOLIC SET (NA,K,CL,CO2,BUN,CREAT,GLUC,CA,AST,ALT,BILI TOTAL,ALK PHOS,ALB,PROT TOTAL) (08/03/2017 11:29 AM PDT) + +---------+ + + + | Component | Value | Ref Range | Performed | Pathologist | | | | | At | Signature | + +---------+ + + + | GLUCOSE, | 337 (H) | 70 - 99 mg/dL | [facility] | | | PLASMA | | | LABORATORY | | | (LAB) | | | SERVICES, | | | | | | CORE | | + +---------+ + + + | BUN, PLASMA | 18 | 6 - 20 mg/dL | [facility] | | | (LAB) | | | LABORATORY | | | | | | SERVICES, | | | | | | CORE | | + +---------+ + + + | CREATININE | 0.98 | 0.70 - 1.30 | [facility] | | | PLASMA | | mg/dL | LABORATORY | | | (LAB) | | | SERVICES, | | | | | | CORE | | + +---------+ + + + | EGFR | >60 | >60 mL/min | [facility] | | | - | | | LABORATORY | | | SYRIAN | | | SERVICES, | | | | | | CORE | | + +---------+ + + + | EGFR NON | >60 | >60 mL/min | [facility] | | | -BARI | | | LABORATORY | | | RICAN | | | SERVICES, | | | | | | CORE | | + +---------+ + + + | SODIUM, | 136 | 136 - 145 | [facility] | | | PLASMA | | mmol/L | LABORATORY | | | (LAB) | | | SERVICES, | | | | | | CORE | | + +---------+ + + + | POTASSIUM, | 4.8 | 3.4 - 5.0 | [facility] | | | PLASMA | | mmol/L | LABORATORY | | | (LAB) | | | SERVICES, | | | | | | CORE | | + +---------+ + + + | CHLORIDE, | 106 | 97 - 108 mmol/L | [facility] [...] +---------+ + + + | CALCIUM, | 8.2 (L) | 8.6 - 10.2 | [facility] | | | PLASMA | | mg/dL | LABORATORY | | | (LAB) | | | SERVICES, | | | | | | CORE | | + +---------+ + + + | CALCIUM(ALB | 9.6 | 8.6 - 10.2 | [facility] | | | CORRECTED) | | mg/dL | LABORATORY | | | | | | SERVICES, | | | | | | CORE | | + +---------+ + + + | BILIRUBIN | 2.9 (H) | 0.3 - 1.2 mg/dL | [facility] | | | TOTAL | | | LABORATORY | | | | | | SERVICES, | | | | | | CORE | | + +---------+ + + + | TOTAL | 6.7 | 6.4 - 8.2 g/dL | [facility] | | | PROTEIN, | | | LABORATORY | | | PLASMA | | | SERVICES, | | | (LAB) | | | CORE | | + +---------+ + + + | ALBUMIN, | 2.3 (L) | 3.5 - 4.7 g/dL | [facility] | | | PLASMA | | | LABORATORY | | | (LAB) | | | SERVICES, | | | | | | CORE | | + +---------+ + + + | ALK PHOS | 190 (H) | 56 - 119 U/L | [facility] | | | | | | LABORATORY | | | | | | SERVICES, | | | | | | CORE | | + +---------+ + + + | AST(SGOT) | 57 (H) | <=41 U/L | [facility] | | | | | | LABORATORY | | | | | | SERVICES, | | | | | | CORE | | + +---------+ + + + | ALT (SGPT) | 50 | <=60 U/L | [facility] | | | | | | LABORATORY | | | | | | SERVICES, | | | | | | CORE | | + +---------+ + + + | ANION GAP | 9 | 4 - 11 mmol/L | [facility] | | | | | | LABORATORY | | | | | | SERVICES, | | | | | | CORE | | + +---------+ + + + | ANION | 13 (H) | 4 - 11 mmol/L | [facility] [...] | + + + + + | [facility] | [address] | [place] [address] | | | SERVICES, CORE | [address] | | | + + + + + CAPILLARY BLOOD GLUCOSE (NO CHG), POC (08/03/2017 10:29 AM PDT) + +---------+ + + + | Component | Value | Ref Range | Performed | Pathologist | | | | | At | Signature | + +---------+ + + + | BLOOD | 286 (H) | 70 - 99 mg/dL | [facility] - | | | GLUCOSE, | | | [facility] | | | POC | | | [facility] | | | | | | OF CARE | | | | | | TESTS | | + +---------+ + + + + + | Specimen | + + | | + + + + + + + | Performing | Address | City/State/Zipcode | Phone Number | | Organization | | | | + + + + + | [facility] | [address] | [place], [place] | | | [facility] | [address] | [address] | | | TESTS | | | | + + + + + OUTSIDE BODY - READ REQUEST (08/03/2017 12:00 AM PDT) + + | Specimen | + + | | + + + + + | Narrative | Performed At | + + + | EXAM: Professional interpretation only of CT abdomen and pelvis | [facility] | | with contrast performed at outside institution. DATE OF [facility] | RADIOLOGY VOICE | | INTERPRETATION: 08/03/17 DATE OF IMAGE ACQUISITION: 08/03/17 | RECOGNITION 2 | | HISTORY: Cholecystitis. History of cirrhosis. COMPARISON: Outside | | | MRCP 04/26/17 TECHNIQUE: CT of the abdomen and pelvis with | | | intravenous contrast was performed at an outside institution. Coronal | | | and sagittal reformats are provided. Number of images: 1288 | | | FINDINGS: LOWER THORAX: Diffuse coronary artery calcification. | | | LIVER: Cirrhotic liver with typical findings of portal hypertension | | | including recanalized umbilical vein, large splenorenal shunt and | | | esophageal varices. BILIARY: The gallbladder is distended containing | | | dependent stones in the neck. The wall is not thickened and there is | | | no pericholecystic inflammation currently. Adjacent to the | | | gallbladder there are 3 distinct, separate rim-enhancing Hernandez fluid | | | collections with mild surrounding inflammation. Adjacent to the neck | | | there is a 6 x 3.8 cm collection, adjacent to the body there is a 4.3 | | | x 3 cm collection and at the fundus there is a 2.9 x 2.7 cm | | | collection. These are consistent with perforated cholecystitis. Some | | | of these collections contained extruded gallstones. Mild | | | intrahepatic biliary dilation is seen. The common bile duct is mildly | | | dilated up to 8 mm. No definite choledocholithiasis is seen. The | | | biliary dilation appears increased compared to the MRI in April and | | | may be a result of external compression of the upper common duct by | | | the hilar collection. Also of note the hilar collection diffusely | | | narrows the main portal vein from mass effect. No portal vein | | | thrombosis is seen, however. PANCREAS: Unremarkable. SPLEEN: | | | Mildly enlarged. ADRENALS: Unremarkable. KIDNEYS/URETERS: | | | Unremarkable. PELVIC ORGANS/BLADDER: Unremarkable. GI TRACT: Wall | | | thickening of the gastric outlet is likely secondarily inflamed from | | | the adjacent gallbladder body collection. Colonic diverticulosis, | | | otherwise unremarkable. PERITONEUM: No free air or fluid. No | | | additional fluid collections. LYMPH NODES: No lymphadenopathy. | | | VESSELS: Unremarkable. BONES AND SOFT TISSUES: Unremarkable. | | | IMPRESSION: 1. Findings consistent with perforated cholecystitis | | | with 3 separate pericholecystic collections containing extruded | | | gallstones. 2. Mild intrahepatic biliary dilation appears new | | | since April. No definite choledocholithiasis. Biliary dilation may be | | | from external compression of the common duct by the hilar collection. | | | Correlate with bilirubin trend. 3. Cirrhosis and portal | | | hypertension. No ascites. I have personally reviewed the images | | | and, if necessary, edited the report. I agree with the report as now | | | presented. Final signature: Mookie Bartlett MD 08/03/2017 5:20 | | | PM Preliminary: Mookie Bartlett MD Dictation initiated: Mookie | | | Pranav Bartlett MD 08/03/2017 5:12 PM | | + + + + + | Procedure Note | + + | Service Account, Velia Res In Interface - 08/03/2017 5:21 PM PDT EXAM: | | Professional interpretation only of CT abdomen and pelvis with contrast performed at | | outside institution. DATE OF [facility] INTERPRETATION: 08/03/17DATE OF IMAGE ACQUISITION: | | 08/03/17 HISTORY: Cholecystitis. History of cirrhosis. COMPARISON: Outside MRCP 04/26/17 | | TECHNIQUE: CT of the abdomen and pelvis with intravenous contrast was performed at an | | outside institution. Coronal and sagittal reformats are provided.Number of images: 1288 | | FINDINGS: LOWER THORAX: Diffuse coronary artery calcification. LIVER: Cirrhotic liver | | with typical findings of portal hypertension including recanalized umbilical vein, large | | splenorenal shunt and esophageal varices.BILIARY: The gallbladder is distended | | containing dependent stones in the neck. The wall is not thickened and there is no | | pericholecystic inflammation currently. Adjacent to the gallbladder there are 3 | | distinct, separate rim-enhancing Hernandez fluid collections with mild surrounding | | inflammation. Adjacent to the neck there is a 6 x 3.8 cm collection, adjacent to the | | body there is a 4.3 x 3 cm collection and at the fundus there is a 2.9 x 2.7 cm | | collection. These are consistent with perforated cholecystitis. Some of these | | collections contained extruded gallstones. Mild intrahepatic biliary dilation is seen. | | The common bile duct is mildly dilated up to 8 mm. No definite choledocholithiasis is | | seen. The biliary dilation appears increased compared to the MRI in April and may be a | | result of external compression of the upper common duct by the hilar collection. Also of | | note the hilar collection diffusely narrows the main portal vein from mass effect. No | | portal vein thrombosis is seen, however. PANCREAS: Unremarkable. SPLEEN: Mildly | | enlarged.ADRENALS: Unremarkable.KIDNEYS/URETERS: Unremarkable.PELVIC ORGANS/BLADDER: | | Unremarkable. GI TRACT: Wall thickening of the gastric outlet is likely secondarily | | inflamed from the adjacent gallbladder body collection. Colonic diverticulosis, | | otherwise unremarkable.PERITONEUM: No free air or fluid. No additional fluid | | collections. LYMPH NODES: No lymphadenopathy.VESSELS: Unremarkable. BONES AND SOFT | | TISSUES: Unremarkable. IMPRESSION:1. Findings consistent with perforated cholecystitis | | with 3 separate pericholecystic collections containing extruded gallstones. 2. Mild | | intrahepatic biliary dilation appears new since April. No definite choledocholithiasis. | | Biliary dilation may be from external compression of the common duct by the hilar | | collection. Correlate with bilirubin trend. 3. Cirrhosis and portal hypertension. No | | ascites. I have personally reviewed the images and, if necessary, edited the report. I | | agree with the report as now presented. Final signature: Mookie Bartlett MD 08/03/2017 | | 5:20 PM Preliminary: Mookie Bartlett MD Dictation initiated: Mookie Bartlett MD | | 08/03/2017 5:12 PM | |PERITONEUM: No free air or fluid. No additional fluid collections. | | | |LYMPH NODES: No lymphadenopathy. | |VESSELS: Unremarkable. | | | |BONES AND SOFT TISSUES: Unremarkable. | | | | | |IMPRESSION: | |1. Findings consistent with perforated cholecystitis with 3 separate pericholecystic collec tions containing extruded gallstones. | | | |2. Mild intrahepatic biliary dilation appears new since April. No definite choledocholithia sis. Biliary dilation may be from external compression of the common duct by the hilar colle ction. Correlate with bilirubin trend. | | | |3. Cirrhosis and portal hypertension. No ascites. | | | |I have personally reviewed the images and, if necessary, edited the report. I agree with th e report as now presented. | | | |Final signature: Mookie Bartlett MD 08/03/2017 5:20 PM | |Preliminary: Mookie Bartlett MD | |Dictation initiated: Mookie Bartlett MD 08/03/2017 5:12 PM | + + + +---------+ + [...] in this encounter Administered Medications + +--------+ + +------+------+ | Medication Order | MAR | Action | Dose | Rate | Site | | | Action | Date | | | | + +--------+ + +------+------+ | acetaminophen (TYLENOL) tablet | Given | 08/08/19 | 1,000 mg | | | | 1,000 mg 1,000 mg, oral, THREE | | 18 9:07 | | | | | TIMES DAILY, First dose (after | | AM PDT | | | | | last modification) on Wed08/03/17 | | | | | | | at 2200, Until Discontinued | | | | | | + +--------+ + +------+------+ +-------+ + +---+---+ | Given | 08/07/19 | 1,000 mg | | | | | 18 9:14 | | | | | | PM PDT | | | | +-------+ + +---+---+ | Given | 08/07/19 | 1,000 mg | | | | | 18 3:04 | | | | | | PM PDT | | | | +-------+ + +---+---+ +---+---+ | | | +---+---+ + +-------+ +-------+---+---+ | atorvastatin (LIPITOR) tablet | Given | 08/07/19 | 20 mg | | | | 20 mg 20 mg, oral, DAILY, First | | 18 9:14 | | | | | dose on Wed08/04/17 at 2100, | | PM PDT | | | | | Until Discontinued | | | | | | + +-------+ +-------+---+---+ +-------+ +-------+---+---+ | Given | 08/06/19 | 20 mg | | | | | 18 9:48 | | | | | | PM PDT | | | | +-------+ +-------+---+---+ | Given | 08/05/19 | 20 mg | | | | | 18 8:39 | | | | | | PM PDT | | | | +-------+ +-------+---+---+ + +---+ | | | + +---+ | bisacodyl (DULCOLAX) | | | suppository 10 mg 10 mg, rectal, | | | DAILY NEEDED, Starting Tue | | | 08/03/17 at 1040, Until Sat | | | 08/07/17 at 1933, 2nd line for no | | | BM in past 2 days or if no | | | response to MIRALAX or if patient | | | unable to tolerate oral | | + +---+ | | | + +---+ | dextrose 50 % in water IV 25 mL | | | 25 mL, intravenous, NEEDED, | | | Starting 08/04/17 at 1724, | | | Until 08/07/17 at 1933, CBG | | | less than 70 mg/dL if patient | | | unable to take PO, per Adult | | | Hypoglycemia Protocol | | + +---+ | | | + +---+ + +-------+ +--------+---+---+ | fentaNYL (SUBLIMAZE) injection | Given | 08/04/19 | 50 mcg | | | | 25-100 mcg 25-100 mcg, | | 18 6:34 | | | | | intravenous, INTRAPROCEDURE PRN, | | PM PDT | | | | | 20 doses, Starting 08/03/17 at | | | | | | | 1623, Until e 08/03/17 at 1856, | | | | | | | periprocedural pain management | | | | | | + +-------+ +--------+---+---+ +-------+ +--------+---+---+ | Given | 08/04/19 | 50 mcg | | | | | 18 6:32 | | | | | | PM PDT | | | | +-------+ +--------+---+---+ | Given | 08/04/19 | 50 mcg | | | | | 18 6:22 | | | | | | PM PDT | | | | +-------+ +--------+---+---+ + +---+ | | | + +---+ | glucagon (GLUCAGEN) injection 1 | | | mg 1 mg, intramuscular, | | | NEEDED, Starting 08/03/17 at | | | 1110, Until 08/07/17 at 1933, | | | CBG less than 70 mg/dL per Adult | | | Hypoglycemia Protocol | | + +---+ | | | + +---+ | glucose chewable tablet 16 g | | | 16 g, oral, NEEDED, Starting | | | Wed08/04/17 at 1724, Until Sat | | | 08/07/17 at 1933, CBG less than 70 | | | mg/dL per Adult Hypoglycemia | | | Protocol | | + +---+ | | | + +---+ + +-------+ + +---+---------+ | insulin glargine (LANTUS) | Given | 08/06/19 | 56 Units | | Abdomen | | injection 56 Units 56 Units, | | 18 9:49 | | | | | subcutaneous, AT BEDTIME, First | | PM PDT | | | | | dose on Wed08/04/17 at 2200, | | | | | | | Until Discontinued | | | | | | + +-------+ + +---+---------+ +-------+ + +---+ + | Given | 08/05/19 | 56 Units | | Left Arm | | | 18 8:37 | | | | | | PM PDT | | | | +-------+ + +---+ + +---+---+ | | | +---+---+ + +-------+ + +---+---------+ | insulin glargine (LANTUS) | Given | 08/07/19 | 32 Units | | Abdomen | | injection 65 Units 65 Units, | | 18 10:39 | | | | | subcutaneous, AT BEDTIME, First | | PM PDT | | | | | dose (after last modification) on | | | | | | | 08/06/17 at 2200, Until | | | | | | | Discontinued | | | | | | + +-------+ + +---+---------+ +---+---+ | | | +---+---+ + +-------+ + +---+--------+ | insulin lispro (HUMALOG) | Given | 08/08/19 | 15 Units | | Right | | injection 15 Units 15 Units, | | 18 1:00 | | | Arm | | subcutaneous, THREE TIMES DAILY | | PM PDT | | | | | WITH MEALS, First dose on Cece | | | | | | | 08/05/17 at 0730, Until | | | | | | | Discontinued | | | | | | + +-------+ + +---+--------+ +-------+ + +---+ + | Given | 08/08/19 | 15 Units | | Left Arm | | | 18 9:07 | | | | | | AM PDT | | | | +-------+ + +---+ + | Given | 08/07/19 | 15 Units | | Left Arm | | | 18 5:52 | | | | | | PM PDT | | | | +-------+ + +---+ + +---+---+ | | | +---+---+ + +-------+ +---------+---+ + | insulin lispro (HUMALOG) | Given | 08/04/19 | 6 Units | | Left Arm | | injection subcutaneous, FOUR | | 18 11:00 | | | | | TIMES DAILY, First dose on Wed | | AM PDT | | | | | 08/03/17 at 1300, Until | | | | | | | Discontinued | | | | | | + +-------+ +---------+---+ + +---+---+ | | | +---+---+ + +-------+ +---------+---+--------+ | insulin lispro (HUMALOG) | Given | 08/08/19 | 6 Units | | Right | | injection subcutaneous, FOUR | | 18 1:00 | | | Arm | | TIMES DAILY, First dose on Wed | | PM PDT | | | | | 08/04/17 at 2200, Until | | | | | | | Discontinued | | | | | | + +-------+ +---------+---+--------+ +-------+ +---------+---+ + | Given | 08/08/19 | 6 Units | | Left Arm | | | 18 9:07 | | | | | | AM PDT | | | | +-------+ +---------+---+ + | Given | 08/08/19 | 3 Units | | Abdomen | | | 18 5:09 | | | | | | AM PDT | | | | +-------+ +---------+---+ + +---+---+ | | | +---+---+ + + + + + +---+ | insulin regular in NaCl 0.9% IV | Rate/Dos | 08/05/19 | 17 | 17 mL/hr | | | infusion (1 unit/mL) 0.1-50 | e Change | 18 8:26 | Units/hr | | | | Units/hr (0.1-50 mL/hr), | | PM PDT | | | | | intravenous, CONTINUOUS, Starting | | | | | | | 08/03/17 at 1315, Until Wed | | | | | | | 08/04/17 at 1728 | | | | | | + + + + + +---+ + + + +-------+---+ | Rate/Dose Change | 08/05/19 | 9.5 | 9.5 | | | | 18 7:23 | Units/hr | mL/hr | | | | PM PDT | | | | + + + +-------+---+ | Rate/Dose Change | 08/05/19 | 7.5 | 7.5 | | | | 18 6:45 | Units/hr | mL/hr | | | | PM PDT | | | | + + + +-------+---+ +---+---+ | | | +---+---+ + +---------+ + + +---+ | lactated Ringers IV 10 mL/hr, | New Bag | 08/05/19 | 10 mL/hr | 10 mL/hr | | | intravenous, CONTINUOUS, Starting | | 18 4:55 | | | | | 08/03/17 at 1115, Until Wed | | PM PDT | | | | | 08/04/17 at 1728 | | | | | | + +---------+ + + +---+ + + + + +---+ | Rate/Dose Change | 08/05/19 | 10 mL/hr | 10 mL/hr | | | | 18 1:38 | | | | | | PM PDT | | | | + + + + +---+ | Rate/Dose Verify | 08/05/19 | 100 | 100 | | | | 18 8:00 | mL/hr | mL/hr | | | | AM PDT | | | | + + + + +---+ +---+---+ | | | +---+---+ + + + +--------+---+---+ | lactated Ringers IV 500 mL, | Bolus | 08/04/19 | 500 mL | | | | intravenous, ONCE, 1 dose, Tue | from | 18 8:13 | | | | | 08/03/17 at 2045 | Same Bag | PM PDT | | | | + + + +--------+---+---+ +---+---+ | | | +---+---+ + + + + + +---+ | lactated Ringers IV 50 mL/hr, | Rate/Dos | 08/08/19 | 50 mL/hr | 50 mL/hr | | | intravenous, CONTINUOUS, Starting | e Verify | 18 5:47 | | | | | 08/07/17 at 0015, Until Sat | | AM PDT | | | | | 08/07/17 at 0558 | | | | | | + + + + + +---+ +---------+ + + +---+ | New Bag | 08/08/19 | 50 mL/hr | 50 mL/hr | | | | 18 12:20 | | | | | | AM PDT | | | | +---------+ + + +---+ +---+---+ | | | +---+---+ + +-------+ +------+---+---+ | lactulose (ENULAC) liquid 20 g | Given | 08/07/19 | 20 g | | | | 20 g (30 mL), oral, THREE TIMES | | 18 9:32 | | | | | DAILY, First dose on Wed08/04/17 | | AM PDT | | | | | at 1130, Until Discontinued | | | | | | + +-------+ +------+---+---+ +-------+ +------+---+---+ | Given | 08/06/19 | 20 g | | | | | 18 9:49 | | | | | | PM PDT | | | | +-------+ +------+---+---+ | Given | 08/06/19 | 20 g | | | | | 18 3:00 | | | | | | PM PDT | | | | +-------+ +------+---+---+ +---+---+ | | | +---+---+ + +-------+ +------+---+---+ | lactulose (ENULAC) liquid 20 g | Given | 08/08/19 | 20 g | | | | 20 g (30 mL), oral, FOUR TIMES | | 18 9:07 | | | | | DAILY, First dose (after last | | AM PDT | | | | | modification) on Wed08/06/17 at | | | | | | | 1400, Until Discontinued | | | | | | + +-------+ +------+---+---+ +-------+ +------+---+---+ | Given | 08/07/19 | 20 g | | | | | 18 9:20 | | | | | | PM PDT | | | | +-------+ +------+---+---+ | Given | 08/07/19 | 20 g | | | | | 18 5:09 | | | | | | PM PDT | | | | +-------+ +------+---+---+ +---+---+ | | | +---+---+ + +-------+ +------+---+---+ | LORazepam (ATIVAN) injection 2 | Given | 08/06/19 | 2 mg | | | | mg 2 mg, intravenous, ONCE, 1 | | 18 7:08 | | | | | dose, [facility] 08/05/17 at 1145 | | PM PDT | | | | + +-------+ +------+---+---+ +---+---+ | | | +---+---+ + +-------+ +-------+---+---+ | metoprolol tartrate (LOPRESSOR) | Given | 08/08/19 | 25 mg | | | | tablet 25 mg 25 mg, oral, TWICE | | 18 9:07 | | | | | DAILY, First dose on Wed08/04/17 | | AM PDT | | | | | at 2100, Until Discontinued | | | | | | + +-------+ +-------+---+---+ +-------+ +-------+---+---+ | Given | 08/07/19 | 25 mg | | | | | 18 9:14 | | | | | | PM PDT | | | | +-------+ +-------+---+---+ | Given | 08/07/19 | 25 mg | | | | | 18 9:32 | | | | | | AM PDT | | | | +-------+ +-------+---+---+ +---+---+ | | | +---+---+ + +-------+ +------+---+---+ | midazolam (PF) (VERSED) | Given | 08/04/19 | 1 mg | | | | injection 1-5 mg 1-5 mg, | | 18 6:32 | | | | | intravenous, INTRAPROCEDURE PRN, | | PM PDT | | | | | 20 doses, Starting Wed08/03/17 at | | | | | | | 1623, Until Wed08/03/17 at 1856, | | | | | | | periprocedural sedation | | | | | | + +-------+ +------+---+---+ +-------+ +------+---+---+ | Given | 08/04/19 | 1 mg | | | | | 18 6:22 | | | | | | PM PDT | | | | +-------+ +------+---+---+ +---+---+ | | | +---+---+ + +-------+ +------+---+---+ | morphine injection 1-3 mg 1-3 | Given | 08/04/19 | 1 mg | | | | mg, intravenous, EVERY 2 HOURS | | 18 3:47 | | | | | NEEDED, Starting Wed08/03/17 at | | PM PDT | | | | | 1040, Until Wed08/03/17 at 1553, | | | | | | | severe pain | | | | | | + +-------+ +------+---+---+ +---+---+ | | | +---+---+ + +-------+ +------+---+---+ | morphine injection 1-3 mg 1-3 | Given | 08/05/19 | 2 mg | | | | mg, intravenous, EVERY 2 HOURS | | 18 7:54 | | | | | NEEDED, Starting Tu08/03/17 at | | AM PDT | | | | | 1553, Until Wed08/04/17 at 0959, | | | | | | | moderate pain | | | | | | + +-------+ +------+---+---+ +-------+ +------+---+---+ | Given | 08/05/19 | 3 mg | | | | | 18 5:08 | | | | | | AM PDT | | | | +-------+ +------+---+---+ | Given | 08/04/19 | 1 mg | | | | | 18 7:41 | | | | | | PM PDT | | | | +-------+ +------+---+---+ +---+---+ | | | +---+---+ + +-------+ +------+---+---+ | morphine injection 1-3 mg 1-3 | Given | 08/07/19 | 2 mg | | | | mg, intravenous, EVERY 2 HOURS | | 18 9:27 | | | | | NEEDED, Starting Wed08/04/17 at | | AM PDT | | | | | 0959, Until Wed08/06/17 at 1156, | | | | | | | severe pain | | | | | | + +-------+ +------+---+---+ +-------+ +------+---+---+ | Given | 08/06/19 | 2 mg | | | | | 18 6:22 | | | | | | PM PDT | | | | +-------+ +------+---+---+ | Given | 08/06/19 | 2 mg | | | | | 18 11:40 | | | | | | AM PDT | | | | +-------+ +------+---+---+ +---+---+ | | | +---+---+ + +-------+ +------+---+---+ | morphine injection 2 mg 2 mg, | Given | 08/04/19 | 2 mg | | | | intravenous, ONCE, 1 dose, Tue | | 18 8:11 | | | | | 08/03/17 at 2030 | | PM PDT | | | | + +-------+ +------+---+---+ +---+---+ | | | +---+---+ + +-------+ +-------+---+---+ | omeprazole (PRILOSEC) capsule | Given | 08/08/19 | 40 mg | | | | 40 mg 40 mg, oral, BEFORE | | 18 4:59 | | | | | BREAKFAST, First dose on Cece | | AM PDT | | | | | 08/05/17 at 1000, Until | | | | | | | Discontinued | | | | | | + +-------+ +-------+---+---+ +-------+ +-------+---+---+ | Given | 08/07/19 | 40 mg | | | | | 18 6:03 | | | | | | AM PDT | | | | +-------+ +-------+---+---+ | Given | 08/06/19 | 40 mg | | | | | 18 11:28 | | | | | | AM PDT | | | | +-------+ +-------+---+---+ +---+---+ | | | +---+---+ + +-------+ +------+---+---+ | ondansetron (ZOFRAN) tablet 8 | Given | 08/07/19 | 8 mg | | | | mg 8 mg, oral, EVERY 12 HOURS | | 18 10:22 | | | | | NEEDED, Starting 08/03/17 at | | AM PDT | | | | | 1040, Until 08/07/17 at 1933, | | | | | | | nausea/vomiting, first line | | | | | | + +-------+ +------+---+---+ +---+---+ | | | +---+---+ + +-------+ +-------+---+---+ | oxyCODONE (immediate release) | Given | 08/08/19 | 10 mg | | | | (ROXICODONE) tablet 5-15 mg 5-15 | | 18 1:00 | | | | | mg, oral, EVERY 4 HOURS | | PM PDT | | | | | NEEDED, Starting Wed08/04/17 at | | | | | | | 0959, Until 08/07/17 at 1933, | | | | | | | moderate pain | | | | | | + +-------+ +-------+---+---+ +-------+ +-------+---+---+ | Given | 08/08/19 | 10 mg | | | | | 18 4:59 | | | | | | AM PDT | | | | +-------+ +-------+---+---+ | Given | 08/07/19 | 10 mg | | | | | 18 9:13 | | | | | | PM PDT | | | | +-------+ +-------+---+---+ +---+---+ | | | +---+---+ + +---------+ +---------+---+---+ | piperacillin-tazobactam (ZOSYN) | New Bag | 08/07/19 | 3.375 g | | | | IV (minibag+) 3.375 g 3.375 g, | | 18 6:03 | | | | | intravenous, EVERY 8 HOURS, First | | AM PDT | | | | | dose on Wed08/03/17 at 1130, | | | | | | | Until Discontinued | | | | | | + +---------+ +---------+---+---+ +---------+ +---------+---+---+ | New Bag | 08/06/19 | 3.375 g | | | | | 18 9:49 | | | | | | PM PDT | | | | +---------+ +---------+---+---+ | New Bag | 08/06/19 | 3.375 g | | | | | 18 11:40 | | | | | | AM PDT | | | | +---------+ +---------+---+---+ + +---+ | | | + +---+ | polyethylene glycol (MIRALAX) | | | packet 34 g 34 g, oral, THREE | | | TIMES DAILY NEEDED, Starting | | | 08/03/17 at 1040, Until Sat | | | 08/07/17 at 1933, 1st line - for | | | no BM for 2 days | | + +---+ | | | + +---+ + + + +---+---+---+ | probiotic yogurt (KARLA'S | Given - | 08/08/19 | | | | | YOGURT) oral, THREE TIMES DAILY, | Food | 18 9:11 | | | | | First dose on 08/04/17 at | | AM PDT | | | | | 2200, Until Discontinued | | | | | | + + + +---+---+---+ + + +---+---+---+ | Given - Food | 08/06/19 | | | | | | 18 11:40 | | | | | | AM PDT | | | | + + +---+---+---+ | Given - Food | 08/05/19 | | | | | | 18 8:42 | | | | | | PM PDT | | | | + + +---+---+---+ + +---+ | | | + +---+ | prochlorperazine (COMPAZINE) | | | injection 5-10 mg 5-10 mg, | | | intravenous, EVERY 6 HOURS | | | NEEDED, Starting 08/03/17 at | | | 1040, Until 08/07/17 at 1933, | | | nausea/vomiting not responding to | | | ondansetron and unable to take | | | oral prochlorperazine | | + +---+ | | | + +---+ | prochlorperazine (COMPAZINE) | | | tablet 5-10 mg 5-10 mg, oral, | | | EVERY 6 HOURS NEEDED, Starting | | | 08/03/17 at 1040, Until Sat | | | 08/07/17 at 1933, nausea/vomiting, | | | second line | | + +---+ | | | + +---+ + +-------+ +--------+---+---+ | rifAXIMin (XIFAXAN) tablet 550 | Given | 08/08/19 | 550 mg | | | | mg 550 mg, oral, TWICE DAILY, | | 18 9:07 | | | | | First dose on Wed08/04/17 at | | AM PDT | | | | | 2100, Until Discontinued | | | | | | + +-------+ +--------+---+---+ +-------+ +--------+---+---+ | Given | 08/07/19 | 550 mg | | | | | 18 9:14 | | | | | | PM PDT | | | | +-------+ +--------+---+---+ | Given | 08/07/19 | 550 mg | | | | | 18 9:35 | | | | | | AM PDT | | | | +-------+ +--------+---+---+ +---+---+ | | | +---+---+ + +-------+ + +---+---+ | senna-docusate (SENOKOT S) | Given | 08/07/19 | 1 tablet | | | | 8.6-50 mg 1 tablet 1 tablet, | | 18 9:33 | | | | | oral, TWICE DAILY, First dose on | | AM PDT | | | | | 08/03/17 at 1230, Until | | | | | | | Discontinued | | | | | | + +-------+ + +---+---+ +-------+ + +---+---+ | Given | 08/06/19 | 1 tablet | | | | | 18 8:21 | | | | | | AM PDT | | | | +-------+ + +---+---+ | Given | 08/05/19 | 1 tablet | | | | | 18 8:14 | | | | | | AM PDT | | | | +-------+ + +---+---+ +---+---+ | | | +---+---+ + +-------+ + +---+---+ | trimethoprim-sulfamethoxazole | Given | 08/08/19 | 1 tablet | | | | (BACTRIM DS,SEPTRA DS) 160-800 mg | | 18 9:07 | | | | | tablet 1 tablet 1 tablet, oral, | | AM PDT | | | | | TWICE DAILY, 20 doses, First | | | | | | | dose on Wed08/06/17 at 0900, Last | | | | | | | dose on Wed08/15/17 at 2100 | | | | | | + +-------+ + +---+---+ +-------+ + +---+---+ | Given | 08/07/19 | 1 tablet | | | | | 18 9:14 | | | | | | PM PDT | | | | +-------+ + +---+---+ | Given | 08/07/19 | 1 tablet | | | | | 18 10:21 | | | | | | AM PDT | | | | +-------+ + +---+---+ +---+---+ | | | +---+---+ documented in this encounter
--- OUTSIDE RECORDS SUMMARY | ~2019-01-07 | XMS | Encounter Summary ---
Demographics + + + | Address | [address] | | | [place] [address] | + + + | Home Phone [...] Team Providers + +------+ + | Care Boring Machine Set Up Operator Name | Role | Phone | + +------+ + | Shakir Monzon DO | PCP | | + +------+ + Encounter Details +--------+ + + + + | Date | Type | Department | Care Team | Description | +--------+ + + + + | 09/23/ | Hospital | [facility] | Donell Hunt MD | Cirrhosis of liver | | 2017 | Encounter | [facility] | [address] | without ascites, | | | | [address] [place] | [place], [place] | unspecified hepatic | | | | [place], [place] | [address] | cirrhosis type (HCC) | | | | [address] | [phone] | | | | | [phone] | | | | | | | [...] [place] | | | | | | [address] | | | | | | | [...] HCC and ascites. COMPARISON: 11/27/2015 and | [facility] | | MRI the 04/06/2016. FINDINGS: [...] [address] | [place] | [phone] | | [facility] | | [address] | | | - IMAGING | | | | + + + + + documented in this encounter Visit Diagnoses + + | Diagnosis | + + | Cirrhosis of liver without ascites, unspecified hepatic cirrhosis type (HCC) | + + documented in this encounter"
--- OUTSIDE RECORDS SUMMARY | ~2019-01-07 | XMS | Encounter Summary ---
Demographics + + + | Address | [address] | | | [place] [address] | + + + | Home Phone [...] + + | Author | [facility] | + + + | Organization | [facility] | + + + | Address | Unknown | + + + | Phone | Unavailable | + + + Support + + +---------+ + | Name | Relationship | Address | Phone | + + +---------+ + | Mary Medellin | ECON | Unknown | | + + +---------+ + Care Team Providers + +------+ + | Care Tag Meter Operator Name | Role | Phone | [...] 2018 | | General Surgery at | [facility] | | | | | [facility] [address] | [address] [place], [place] | | | | | [address] | [address] | | | | | Mailcode: [id number] | | | | | | Nikkie Mazariegos | | | | | | [address] [place], [place] | | | | | | [address] | | | | | | [phone] | | | +--------+ + + + [...]
--- OUTSIDE RECORDS SUMMARY | ~2019-01-07 | XMS | Encounter Summary ---
Demographics + + + | Address | [address] | | | [place] [address] | + + + | Home Phone | | + + + | Preferred Language | Unknown | + + + | Marital Status | Single | + + + | Bahai Affiliation | Unknown | + + + | Race | Unknown | + + + | Ethnic Group | Unknown | + + + Author + + + | Author | [facility] | | | and [place] | + + + | Organization | [facility] | | | and [...] Team Providers + +------+ + | Care Varnisher Apprentice Name | Role | Phone | + +------+ + | Shakir Monzon DO | PCP | | + +------+ + Encounter Details +--------+ + + + + | Date | Type | Department | Care Team | Description | +--------+ + + + + | 09/06/ | Orders Only | [facility] | Provider, | | | 2019 | | [facility] GENER[facility] OP | MD Avlin Willett | | | | | [address] | [place]ie [place] | | | | | [address] [place], [place] | [place] [address] | | | | | [address] | | | | | | [phone] | | | +--------+ + + + [...] [place] | | | | | | [address] | | | | | | | | +--------+---------+ + + + documented as of this encounter Visit Diagnoses Not on filedocumented in this encounter"
--- OUTSIDE RECORDS SUMMARY | ~2019-01-07 | XMS | Encounter Summary ---
Demographics + + + | Address | [address] | | | [place] [address] | + + + | Home Phone [...] | Author | [facility] | + + + | Organization | [facility] | + + + | Address | Unknown | + + + | Phone | Unavailable | + + + Support + + +---------+ + | Name | Relationship | Address | Phone | + + +---------+ + | Mary Medellin | ECON | Unknown | | + + +---------+ + Care Team Providers + +------+ + | Care Tissue Technician Name | Role | Phone | [...] | | | | CELE Rivas | [facility] | | | | | Mailcode: Center | [place], [place] | | | | | [facility] and | [address] | | | | | [facility] [address] | [phone] | | | | | [place], [place] | | | | | | [address] | | | | | | [phone] | | | +--------+ + + + [...]
--- OUTSIDE RECORDS SUMMARY | ~2019-01-07 | XMS | Encounter Summary ---
Demographics + + + | Address | [address] | | | [place] [address] | + + + | Home Phone [...] [facility] | + + + | Organization | [facility] [employer] [facility] | + + + | Address | Unknown | + + + | Phone | Unavailable | + + + Support + + +---------+ + | Name | Relationship | Address | Phone | + + +---------+ + | Mary Medellin | ECON | Unknown | | + + +---------+ + Care Team Providers + +------+ + | Care Construction Carpenters Helper Name | Role | Phone | [...] CT ABDOMEN | [address] | Rd [place], | | | | | AND PELVIS | [place], [place] | [place] | | | | | [place] | [address] | [phone] | | | | | CONTRAST [place] | Phone: | Phone: | | | | | CT | [phone] | [phone] | | | | | ABDOMEN&PELV | Fax: | Fax: | | | | | IS | [phone] | [phone] | | | | | W/CONTRAST | [...] + + | 08/03/ | Hospital | [address] | Jess[place], | | | 2018 - | Encounter | [address] | [place] [address] [facility] | | | | | [place], [place] | [address] | | | 08/07/ | | [address] | [place], [place] | | | 2017 | | [phone] | [address] | | | | | | [phone] | | | | | | | [...] d hepatic encephalopathy who was transferred from [facility]. He had presented with cholecystitis with apparent [...] Plan to follow up in 1 w fair play with pre-clinic visit CT scan. BP 128/77 [...] your drain output increases, please call the [facility] bar finish operator and ask for the EGS resident business education professor. You may need to go to y our nearest emergency department to check some labs. Schedule the following appointment(s) when you get home Trauma Emergency General Surgery at [facility] On 08/13/2017. Specialty: Trauma Center Why: For wound re-check Contact information [address] [facility] Mailcode: L223a [facility] [address] [facility] [address] Additional information: [facility] 2nd floor [address]. The Physician's Pavilion is the building just past [facility]. Turn r ight immediately past the Pavilion. The entrance to the garage will be on your right just be yond the main entrance to the Pavilion. Honing [employer] parking is available in the Physician's Pavili [...] d esk. Outstanding labs/studies: None Discharging Physician: RUIAH MARX MD Attending Physician: Jessika Allen MD PCP: MD Uriah Morris [place] p [id number] EGS Associated attestation - Herminio Still MD,PhD - 08/07/2017 9:33 PM PDTEmergency General [facility]/Trauma Attending Addendum Date of Service: 08/07/2017 I saw and examined Bret Espinal Jr. ([id number]) with the resident and agree with the assess ment and plan as outlined in this note and participated in the planning of care. Mr. Espinal is stable for discharge today. We will plan to see him back in clinic in a week with a pre-clinic ct to re-eval the perihilar fluid collection/abscess. Herminio Still MD, PhD, FACS sports medicine physician Division of Trauma, Critical Care & Acute Care Surgery [facility] & [facility] [phone] documented in this encounter Medications at Time [...] and hepatic encephalopathy who was transferred from [facility]. He had presented with cholecystitis with apparent [...] visit CT [place] Uriah Marx [place] p [id number] EGS Associated attestation - Herminio Still MD,PhD - 08/07/2017 9:34 PM [facility] r[facility]/Trauma Attending Addendum Date of Service: 08/07/2017 I saw and examined Bret Espinal Jr. ([id number]) with the resident and agree with the assess ment and plan as outlined in this note and participated in the planning of care. Herminio Still MD, PhD, FACS sports medicine physician Division of Trauma, Critical Care & Acute Care Surgery [facility] [place] [phone] Uriah Marx MD - 08/06/2017 11:52 AM [facility] Mr. Espinal is [...] early next week Uriah Marx [place] p 14813 EGS Associated attestation - Herminio Still MD,PhD - 08/07/2017 9:34 PM PDTEmergency General [facility] rgery/Trauma Attending Addendum Date of Service: 08/06/2017 I saw and examined Bret Esipnal Jr. ([id number]) with the resident and agree with the assess ment and plan as outlined in this note and participated in the planning of care. Herminio Still MD, PhD, FACS sports medicine physician Division of Trauma, Critical Care & Acute Care Surgery [facility] [place] [phone] Cherise Bhatti MD - 08/06/2017 11:31 AM [...] plan was discussed and formulated with the Id stroenterology attending, Dr. Bernabe. Please call the on-call GI fellow with any questions . Justo Roche MD Fellow, Gastroenterology Pager: [phone] INTERVAL HISTORY: MRCP overnight with extrinsic compression [...] note for further details. Jaleel Bernabe MD [facility] [address] [facility] [place] [place] [address] [facility] DEPARTMENT: GI - [id number] Place of Service: HOSP CSN: [id number] Suggested Modifiers: GC - Resident Involved Suggested Level of Care: 75193 - Subsequent, Prob Foc/low complex 15 min Uriah Marx MD - 08/05/2017 8:09 AM [facility] Mr. 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 He had presented with cholecystitis with apparent [...] in 1-2 days Uriah Marx [place] p 83979 EGS ojaki, Rylan Sinclair D - 08/05/2017 [...] questions. Justo Roche MD Fellow, Gastroenterology Pager: [phone] INTERVAL HISTORY: Hemodynmaics stable E coli in [...] note for further details. Mirza Bender MD Textile Stylist Gastroenterology and Hepatology Uriah Marx MD - 08/04/2017 9:37 AM [facility] Mr. Espinal is [...] in 1-2 days Uriah Marx MD p 92671 EGS Associated attestation - Herminio Still MD,PhD - 08/04/2017 6:02 PM PDTEmergency General [facility] rgery/Trauma Attending Addendum Date of Service: 08/04/2017 I saw and examined Bret Espinal . ([id number]) with the resident and agree with the assess ment and plan as outlined in this note and participated in the planning of care. Continue with diet. Will need to leave the cholecystostomy tube in place for several weeks. MRCP per GI recs. Herminio Still MD, PhD, FACS sports medicine physician Division of Trauma, Critical Care & Acute Care Surgery [facility] [place] [phone] Justo Roche MD - 08/04/2017 6:29 AM [...] questions. Justo Roche MD Fellow, Gastroenterology Pager: [phone] INTERVAL HISTORY: 10.2 Fr chholecystostomy tube placced [...] note for further details. Mirza Bender MD [employer] Gastroenterology and Hepatology Santosh Fallon MD - [...] tylenol to 1000 mg TID scheduled from [id number] - Gave 2 mg morphine IV - [...] are concerns. Santosh Fallon, PGY-1 Trauma Surgery [id number] Update 9:45 pm: Patient is doing much [...] any concerns Santosh Fallon, PGY-1 Trauma Surgery [id number] signed by Santosh Fallon MD at 08/03/2017 [...] tab for ([facility]) Interventional Radiology. Alternatively, they can be found in [facility] under tony rt review, imaging tab. Full report can also be found in [employer] as REPORT under the specifie d procedure. [...] under moderate sedation Cherise Bhatti MD Pager: [phone] [facility] No past medical history on file. [...] MARLAQUITAAM | [address] | [place], [place] | | | [facility] | [facility] | [address] | | | TESTS | | | [...] (H) | 70 - 99 mg/dL | [facility] - | | | GLUCOSE, | | [...] FALL | [address] | [place], [place] | | | [facility]ARE | [address] | [address] | | | TESTS | | | [...] CENTER LABORATORY | [address] | [place] [address] | | | JORGE L BURTON | [...] | | | LABORATORY | | | BERMUDIAN | | | SERVICES, | | | [...] the MDRD equation recommended by the | [facility] | | National Kidney Disease Education Program. [...] | [facility] | [address] | [place] [address] | | | JORGE L BURTON | [...] MARLAQUITAAM | [address] | [place], [place] | | | [facility] | [address] | [address] | | | TESTS | | | [...] FALL | [address] | [place], [place] | | | [facility] [place] | [address] | [address] | | | TESTS | | | [...] MARQUAM | [address] | [place], [place] | | | [facility] | [address] | [address] | | | TESTS | | | [...] MARQUAM | [address] | [place], [place] | | | [facility] | [address] | [address] | | | TESTS | | | [...] + + + | LINDA FALL | [address] | [place], [place] | | | [facility] [place] | [address] | [address] | | | TESTS | | | [...] [facility] | [address] | [place] [address] | | | JORGE L BURTON | [...] | | | LABORATORY | | | BERMUDIAN | | | SERVICES, | | | [...] the MDRD equation recommended by the | [facility] | | National Kidney Disease Education Program. [...] [facility] | [address] | [place] [address] | | | SERVICES, CORE | PARK [...] | [facility] | [address] [facility] | [place] [address] | | | SERVICES, CORE | PARVEEN [...] FALL | [address] | [place], [place] | | | [facility] [place] | [facility] | [address] | | | TESTS | | | [...] MARQUAM | [address] | [place], [place] | | | [facility] | [address] | [address] | | | TESTS | | | [...] Note | + + | Service Account, Wedding Party Res In Interface - 08/06/2017 9:15 AM [...] MARQUAM | [address] | [place], [place] | | | [facility] | [address] | [address] | | | TESTS | | | [...] [facility] | [address] | [place] [address] | | | SERVICES, CORE | PARVEEN [...] | | | LABORATORY | | | BERMUDIAN | | | SERVICES, | | | [...] + + + + + | [facility] | [address] | [place] [address] | | | SERVICES, CORE | PARVEEN [...] MARQUAM | [address] | [place], [place] | | | [facility] | [address] | [address] | | | TESTS | | | [...] EUFEMIA | [address] | [place], [place] | | | [facility] | [address] | [address] | | | TESTS | | | [...] (H) | 70 - 99 mg/dL | [facility] - | | | GLUCOSE, | | [...] FALL | [address] | [place], [place] | | | [facility] | [address] | [address] | | | TESTS | | | [...] MARQUAM | [address] | [place], [place] | | | [facility] | [address] | [address] | | | TESTS | | | [...] - EUFEMIA | [address] | [place], [place] | | | [facility] | [address] | [address] | | | TESTS | | | [...] (H) | 70 - 99 mg/dL | [facility] - | | | GLUCOSE, | | [...] + | LINDA FALL | [address] | [place], [place] | | | [facility] | [address] | [address] | | | TESTS | | | [...] MARQUAM | [address] | [place], [place] | | | [facility] | [address] | [address] | | | TESTS | | | [...] - EUFEMIA | [address] | [place], [place] | | | [facility] | [address] | [address] | | | TESTS | | | [...] (H) | 70 - 99 mg/dL | [facility] - | | | GLUCOSE, | | [...] FALL | [address] | [place], [place] | | | [facility] | [address] | [address] | | | TESTS | | | [...] MARQUAM | [address] | [place], [place] | | | [facility] | [address] | [address] | | | TESTS | | | [...] - EUFEMIA | [address] | [place], [place] | | | [facility] | [address] | [address] | | | TESTS | | | [...] (H) | 70 - 99 mg/dL | [facility] - | | | GLUCOSE, | | [...] FALL | [address] | [place], [place] | | | [facility] | [address] | [address] | | | TESTS | | | [...] SAIRAAM | [address] | [place], [place] | | | [facility] | [address] | [address] | | | TESTS | | | [...] LINDA FALL | [address] | [place], [place] | | | [facility] | [address] | [address] | | | TESTS | | | [...] [facility] | [address] | [place] [address] | | | JORGE L BURTON | [...] | | | LABORATORY | | | BERMUDIAN | | | SERVICES, | | | [...] the MDRD equation recommended by the | [facility] | | National Kidney Disease Education Program. [...] CENTER LABORATORY | [address] | [place] [address] | | | JORGE L BURTON | [...] (H) | 70 - 99 mg/dL | [facility] - | | | GLUCOSE, | | [...] FALL | [address] | [place], [place] | | | [facility] | [address] | [address] | | | TESTS | | | [...] + + | Performing | Address | City/State/[facility] Cent[facility] | Phone Number | | Organization | | | | + + + + + | [facility] [place] | [address] | [place], [place] | | | [facility] | [facility] | [address] | | | TESTS | | | [...] SAIRAAM | [address] | [place], [place] | | | [facility] | [facility] | [address] | | | TESTS | | | [...] (H) | 70 - 99 mg/dL | [facility] - | | | GLUCOSE, | | [...] FALL | [address] | [place], [place] | | | [facility] | [address] | [address] | | | TESTS | | | [...] FALL | [address] | [place], [place] | | | [facility] | [facility] | [address] | | | TESTS | | | [...] SAIRAAM | [address] | [place], [place] | | | [facility] [place] | [facility] | [address] | | | TESTS | | | [...] (H) | 70 - 99 mg/dL | [facility] - | | | GLUCOSE, | | [...] FALL | [address] | [place], [place] | | | [facility] | [address] | [address] | | | TESTS | | | | + + + + + X-RAY PORTABLE CHEST 1 VIEW (08/03/2017 9:48 PM PDT) + + | Specimen | + + | | + + + + + | Narrative | Performed At | + + + | EXAM: NV CHEST 1 VIEW HISTORY: Abdominal and chest [...] Interface - 08/04/2017 9:33 AM PDT EXAM: NV CHEST 1 | | VIEW HISTORY: Abdominal [...] EUFEMIA | [address] | [place], [place] | | | [facility] | [address] | [address] | | | TESTS | | | [...] | [facility] | [address] | [place] [address] | | | SERVICES, CORE | PARK [...] 13.69 (H) | 3.50 - 10.80 | [facility] | | | COUNT | | K/cu [...] [facility] | [address] | [place] [address] | | | SERVICES, CORE | PARK [...] | | | LABORATORY | | | BERMUDIAN | | | SERVICES, | | | [...] | + + + + + | [employer] [facility] | [address] | [place] [address] | | | SERVICES, JORGE L | [...] CENTER LABORATORY | [address] | [place] [address] | | | JORGE L BURTON | [...] + + + | [facility] DEPT OF | [address] | [place], [place] | | | CARDIOLOGY | [address] | [address] | | + + + + + [...] EUFEMIA | [address] | [place], [place] | | | [facility] [place] | [facility] | [address] | | | TESTS | | | [...] (H) | 70 - 99 mg/dL | [facility] - | | | GLUCOSE, | | [...] FALL | [address] | [place], [place] | | | [facility] | [address] | [address] | | | TESTS | | | [...] + | FLOOD - AIRPORT - | [address] | [place] [address] | | | [facility] | | | | + + + [...] | + + + + + | [employer] | [address] | [place] [address] | | | SERVICES, CORE | PARVEEN [...] US | | | guided placement 10.2 [place] MPD drainage catheter into gallbladder | | | Operation 2. Fluoroscopic guided confirmation of 10.2 [place] MPD | | | drainage catheter Indications: [...] intercostal approach. | | | A 10.2 [place] MPD catheter was advanced directly into the [...] Note | + + | Service Account, [employer] In Interface - 08/20/2017 2:24 PM PDT Procedure: | | Percutaneous CholecystostomyPrimary Interventionalist: Shawna Fregoso | | Interventionalist: ESCOBAR Kelleyreoperative diagnosis: | | cholecystitisPostoperative diagnosis: SameOperations:Operation 1. US guided placement | | 10.2 [place] MPD drainage catheter into gallbladderOperation 2. Fluoroscopic guided | | confirmation of 10.2 [place] MPD drainage catheterIndications:61 year-old male with acute [...] an | | intercostal approach. A 10.2 [place] MPD catheter was advanced directly into the [...] from an intercostal approach. A | |10.2 [place] MPD catheter was advanced directly into the [...] FALL | [address] | [place], [place] | | | [facility] | [address] | [address] | | | TESTS | | | [...] MARQUAM | [address] | [place], [place] | | | [facility] | [facility] | [address] | | | TESTS | | | [...] MARQUAM | [address] | [place], [place] | | | [facility] [place] | [facility] | [address] | | | TESTS | | | [...] FALL | [address] | [place], [place] | | | [facility] | [address] | [address] | | | TESTS | | | [...] DEPT OF | [address] | [place], [place] | | | CARDIOLOGY | [address] | [address] | | + + + + + [...] + + + + + | [facility] | [address] | [place] [address] | | | SERVICES, | [address] [...] [facility] | [address] | [place] [address] | | | SERVICES, CORE | PARK [...] | + + + + + | [facility] | [address] | [place] [address] | | | SERVICESJORGE L | [address]VEEN [...] [facility] | [address] | [place] [address] | | | SERVICES, | [address] [...] CENTER LABORATORY | [address] | [place] [address] | | | SERVICES, | [address] [...] CENTER LABORATORY | [address] | [place] [address] | | | SERVICES, [facility] | [address] | | | + + + + + HEMOGLOBIN A1C, BLOOD (08/03/2017 11:29 AM PDT) + + + + + + | Component | Value | Ref Range | Performed | Pathologist | | | | | At | Signature | + + + + + + | HEMOGLOBIN | 9.8 (H)Comment: Hgb A1C | <5.7 % | [facility] | | | A1C | Interpretive | [...] | [facility] | | considered for monitoring client experience manager glycemic control in patients with: | LABORATORY [...] + + + + + | [facility] | [address] | [place] [address] | | | SERVICES, SPECIAL | PARVEEN [...] CENTER LABORATORY | [address] | [place] [address] | | | SERVICES, CORE | PARK [...] + + | [facility] | [address] | [place] [address] | | | MICHEAL, JORGE L | [...] + + + + + | [facility] | [address] | [place] [address] | | | SERVICES, CORE | PARK [...] | | | LABORATORY | | | BERMUDIAN | | | SERVICES, | | | [...] + + + + + | [facility] | [address] | [place] [address] | | | SERVICES, CORE | PARVEEN [...] MARQUAM | [address] | [place], [place] | | | [facility] | [address] | [address] | | | TESTS | | | [...] contrast performed at outside institution. DATE OF [facility] | RADIOLOGY VOICE | | INTERPRETATION: 08/03/17 [...] at | | outside institution. DATE OF [facility] INTERPRETATION: 08/03/17DATE OF IMAGE ACQUISITION: | | [...] | | | | | dose, [facility] 08/05/17 at 1145 | | PM [...]
--- OUTSIDE RECORDS SUMMARY | ~2019-01-07 | XMS | Encounter Summary ---
Demographics + + + | Address | [address] | | | [place] [address] | + + + | Home Phone [...] + | Author | [facility] [facility] | + + + | Organization | [facility] [employer] [facility] | [...] Providers + +------+ + | Care Clinical Scientist Name | Role | Phone | [...] | | | | | presence | [place], [place] | | | | | | unspecified, | [address] | | | | | | unspecified | Phone: | | | | | | vessel or | [phone] | | | | | | lesion type, | Fax: | | | | | | unspecified | [phone] | | | | | | whether | | | | | | | [place] or | | | | | | [...] + + + + | 03/04/ | Manager Reliability | [facility] | Clinton Morillo, | Coronary artery | | 2019 | | Center at [facility] [address] | [address] | disease, angina | | | | CELE [address]ivas | [address] | presence | | | | Mailcode: Center | [place], [place] | unspecified, | | | | for Health and | [address] | unspecified vessel | | | | Healing, [address] | [phone] | or lesion type, | | | | [place], [place] | | unspecified whether | | | | [address] | | [place] or | | | | [phone] | | transplanted heart | | | [...] or lesion | | type, unspecified whether [place] or transplanted heart - Primary | + + documented in this encounter"
--- OUTSIDE RECORDS SUMMARY | ~2019-01-07 | XMS | Encounter Summary ---
Demographics + + + | Address | [address] | | | [place] [address] | + + + | Home Phone [...] | Author | [facility] [facility] | + + + | Organization | [facility] [employer] [facility] [...] Providers + +------+ + | Care Rn Clinical Review Name | Role | Phone | + [...] | | | | CELE Rivas | [facility] | | | | | Mailcode: Center | [place], [place] | | | | | for Health and | [address] | | | | | Healing, [address] | [phone] | | | | | [place], [place] | | | | | | [address] | | | | | | [phone] | | | +--------+ + + + [...]
--- OUTSIDE RECORDS SUMMARY | ~2019-01-07 | XMS | Encounter Summary ---
Demographics + + + | Address | [address] | | | [place] [address] | + + + | Home Phone | | + + + | Preferred Language | Unknown | + + + | Marital Status | Single | + + + | Muslim Affiliation | Unknown | + + + [...] Team Providers + +------+ + | Care Wine Manager Name | Role | Phone | + +------+ + | Shakir Monzon DO | PCP | | + +------+ + Reason for Referral Evaluate & Treat (Routine) + + + + + + + | Status | Reason | Specialty | Diagnoses / | Referred By | Referred To | | | | | Procedures | Contact | Contact | + + + + + + + | Authorized | Specialty | Sleep | Diagnoses | Femi, | | | | Services | Medicine | Risk | DO Lakisha | | | | Required | | factors for | [address] | | | | | | obstructive | [address] | | | | | | sleep apnea | [address] | | | | | | | [facility] [place] | | | | | | | [address] | | | | | | | Phone: | | | | | | | [phone] | | | | | | | Fax: | | | | | | | [phone] | | + + + + + + + Reason for Visit + + + | Reason | Comments | + + + | Follow-up | 3 MONTH | + + + Evaluate & Treat (Routine) +--------+--------+ + + + + | Status | Reason | Specialty | Diagnoses / | Referred By | Referred To | | | | | Procedures | Contact | Contact | +--------+--------+ + + + + | Closed | | Cardiology | Diagnoses | Nicolás | Femi, | | | | | 3 month f/u | Shakir Fagan DO | DO Lakisha | | | | | Procedures | [address] | [address] | | | | | OFFICE | [address] | | | | | VISIT | WAY | [place] | | | | | REGULAR | [place], | [address] Phone: | | | | | | [place] [address] | [phone] | | | | | | Phone: | Fax: | | | | | | [phone] | [phone] | | | | | | Fax: | | | | | | | [phone] | | +--------+--------+ + + + + Encounter Details +--------+---------+ + + + | Date | Type | Department | Care Team | Description | +--------+---------+ + + + | 10/06/ | Office | [facility] | Lakisha Kahn DO | Risk factors for | | 2019 | Visit | CARDIOLOGY [place] | [address] | obstructive sleep | | | | [address] | [place], [place] | apnea (Primary Dx); | | | | [address] | [address] | Coronary | | | | [place], [place] | | arteriosclerosis; | | | | [address] | | Essential | | | | [phone] | | hypertension; | | | | | | Hepatic cirrhosis, | | | | | | unspecified hepatic | | | | | | cirrhosis type | | | | | | (HCC); Gallbladder | | | | | | perforation; Insulin | | | | | | dependent type 2 | | | | | | diabetes mellitus, | | | | | | uncontrolled (HCC); | | | | | | Deep vein thrombosis | | | | | | (DVT) of other vein | | | | | | of lower extremity, | | | | | | unspecified | | | | | | chronicity, | | | | | | unspecified | | | | | | laterality (HCC) | +--------+---------+ + + + Social [...] + + + | Blood Pressure | 124/70 | 10/06/2018 10:00 AM | | | | | PDT | | + + + + + | Pulse | 54 | 10/06/2018 10:00 AM | | | | | PDT | | + + + + + | Temperature | - | - | | + + + + + | Respiratory Rate | - | - | | + + + + + | Oxygen Saturation | 97% | 10/06/2018 10:00 AM | | | | | PDT | | + + + + + | Inhaled Oxygen | - | - | | | Concentration | | | | + + + + + | Weight | 107 kg (236 lb) | 10/06/2018 10:00 AM | | | | | PDT | | + + + + + | Height | 179.1 cm (5' 10.5") | 10/06/2018 10:00 AM | | | | | PDT | | + + + + + | Body Mass Index | 33.38 | 10/06/2018 10:00 AM | | | | | PDT | | + + + + + documented in this encounter Progress Lakisha Block DO - 10/06/2018 10:00 AM PDT [facility] Cardiology Cardiology Follow Up Note Reason for Consultation: history CAD Requesting Physician: Shakir Monzon History Obtained From: patient/chart review HISTORY [...] establish care. He was previously followed at [facility]. He was last seen t here on 11/01/2017 for preoperative risk stratification for an upcoming gallbladder surgery. He has a history of a NSTEMI in April 2017, coronary angiography demonstrated severe coronar y artery disease, the films were reviewed by the interventional team at [facility] and it was deem ed that his disease was not amenable to PCI or coronary artery bypass grafting. Medical anastasia murphy was advised. Echocardiogram at that time [...] He still has the cholecystotomy tube [facility]. He has been referred to cardiac rehab and went for his first session last week. Unfortun ately, he could only find cardiac rehab in [place] which is an hour drive each way. [...] he was referred to cardiac rehab in [place]. He was felt to be high risk [...] able to get into cardiac rehab in [place], he does not want to travel to [facility] or [place] for cardiac rehab. His blood sugars have still been very uncontrolled . He has been trying to eat better. He has some mild lower extremity swelling he denies any orthopnea. Interim history I last saw the patient 3 months ago. Since that time, he reports that his cholecystotomy t ube got hooked on the counter while he was walking and got pulled out of place. He called is surgeon in [place] and was told to cover it. He underwent an MRCP and blood work, which demonstrated that his bile duct is intact, but it may have a stricture. This is per the kye ayala, we have requested these records. The plan is for conservative management of his cho lecystotomy area. It is still healing. He denies any surrounding erythema or warmth. It d oes continue to drain, particularly when he breathes. There are plans for an ERCP in the [facility] and possible cholecystectomy in the future. The patient recently went to the emergency department for loss of vision. While he was there, he reported that he was having pain in his left lower extremity. An ultrasound was performed, which demonstrated a left lower ext remity DVT. He was started on Eliquis. He followed up with his primary care provider, who reportedly did not want to prescribe Eliquis. He reports that she wanted me to handle this. Since we last saw each other, he denies any chest pains. He denies any usage of his nitro glycerin. His main limiting factor to exertion is bilateral lower extremity pain from neuro tamir and shortness of breath. He admits that he is very inactive and deconditioned. He p lans to schedule cardiac rehab in October. Given his recent DVT, this may need to be shahab yemaryanne. Review of Systems Constitutional: positive for fatigue HENT: Negative for nosebleeds. Eyes: Negative for visual disturbance. Respiratory: Negative for cough. Positive for SOB Cardiovascular: see HPI Gastrointestinal: Negative for nausea, vomiting, positive for abdominal pain Genitourinary: Negative for hematuria or dysuria. Musculoskeletal: Negative for myalgias, back pain and arthralgias. Skin: Negative for color change. Neurological: Negative for dizziness, syncope and numbness. Hematological: Does not bruise/bleed easily. Psychiatric/Behavioral: The patient is not nervous/anxious. PAST MEDICAL & SURGICAL HISTORY Past Medical History Diagnosis Date Dermatitis Diabetes mellitus, type 2 (HCC) GERD (gastroesophageal reflux disease) Hepatitis C Hyperlipidemia Hypertension Old myocardial infarction 04/2017 Sepsis (HCC) 3 TIMES WENT TO HOSPITAL Past Surgical History Procedure Laterality Date ESOPHAGEAL VARICE LIGATION HAND SURGERY TONSILLECTOMY MEDICATIONS Current Outpatient Medications on File Prior to Visit Medication Sig Dispense Refill apixaban (ELIQUIS) 5 mg tablet Take 5 mg by mouth 2 times daily. gabapentin (NEURONTIN) 300 mg capsule Take 300 [...] 1 tablet by mouth 2 times daily. nitroglycerin (NITROSTAT) 0.[address] 1 tablet under tongue every five minut es as needed for chest pain. Place under tongue and allow to dissolve. Administer every 5 m inutes, max of 3 doses in 15 minutes. omeprazole (PRILOSEC) 40 MG capsule Take 40 [...] Father Cancer Father SOCIAL HISTORY Social History Social History Marital status: Single Spouse name: N/A Number of children: N/A Years of education: N/A Occupational History Not on file. Social History Main Topics Smoking status: Former Smoker Smokeless tobacco: Never Used Alcohol use No Drug use: No Sexual activity: Not on file Other Topics Concern Not on file Social History Narrative No narrative on file PHYSICAL EXAM Vitals: 10/06/18 1000 BP: 124/70 Pulse: 54 SpO2: 97% Weight: 107 kg (236 lb) Height: 1.791 m (5' 10.5") Physical Exam GENERAL: Well developed, well nourished, [...] which recently was dislodged by t he patient. He may need an ERCP or cholecystectomy in the near future. He was recently found to have a DVT in his LLE. This is likely provoked given his open abdominal wound. He will n eed to be on anticoagulation for 3-6 months. If emergent surgery is needed, IVC filter can b e considered. - Continue Eliquis 5mg po bid - [...] care of this patient. Primary Care Physician: SHAKIR Kahn, DO documented in this enco unter Plan [...] [place] | | | | | | [address] | | | | | | | | +--------+---------+ + + + + + +--------+ + + | Name | Type | Priori | Associated Diagnoses | Order Schedule | | | | ty | | | + + +--------+ + + | Ambulatory Referral | Outpatient | Routin | Risk factors for | Ordered: 10/06/2018 | | to Sleep Studies | Referral | e | obstructive sleep | | | | | | apnea | | + + +--------+ + + documented as of this encounter Visit Diagnoses + + | Diagnosis | + + | Risk factors for obstructive sleep apnea - Primary | + + | Coronary arteriosclerosis Coronary atherosclerosis of unspecified type of vessel, | | [place] or graft | + + | Essential hypertension Unspecified essential hypertension | + + | Hepatic cirrhosis, unspecified hepatic cirrhosis type (HCC) | + + | Gallbladder perforation Perforation of gallbladder | + + | Insulin dependent type 2 diabetes mellitus, uncontrolled (HCC) Type II or unspecified | | type diabetes mellitus without mention of complication, uncontrolled | + + | Deep vein thrombosis (DVT) of other vein of lower extremity, unspecified chronicity, | | unspecified laterality (HCC) | + + documented in this encounter
--- OUTSIDE RECORDS SUMMARY | ~2019-01-07 | XMS | Encounter Summary ---
Demographics + + + | Address | [address] | | | [place] [address] | + + + | Home Phone | | + + + | Preferred Language | Unknown | + + + | Marital Status | Single | + + + | Pentecostalism Affiliation | Unknown | + + + | Race | Unknown | + + + | Ethnic Group | Unknown | + + + Author + + + | Author | [facility] | | | and [place] | + + + | Organization | [facility] | | | [...] + +------+ + | Care Professor Of Literature Name | Role | Phone | + +------+ + | Shakir Monzon DO | PCP | | + +------+ + Reason for Visit + + + | Reason | Comments | + + + | Follow-up, Office | Esophageal varices | | Visit | | + + + Evaluate & Treat (Routine) +--------+--------+ + + + + | Status | Reason | Specialty | Diagnoses / | Referred By | Referred To | | | | | Procedures | Contact | Contact | +--------+--------+ + + + + | Closed | | Gastroenterol | Diagnoses | [place], | [place], | | | | ogy | Esophageal | Shakir M, DO | MD Donell | | | | | varices | [id number] | [address] | | | | | Procedures | [address] [place], | | | | | [address] | WAY | [place] [address] | | | | | | [place], | Phone: | | | | | | [place] [address] | [phone] | | | | | | Phone: | Fax: | | | | | | [phone] | [phone] | | | | | | Fax: | | | | | | | [phone] | | +--------+--------+ + + + + Encounter Details +--------+---------+ + + + | Date | Type | Department | Care Team | Description | +--------+---------+ + + + | 12/29/ | Office | [facility] | Donell Hunt MD | Hepatic cirrhosis, | | 2018 | Visit | GASTROENTEROLOGY | [address] | unspecified hepatic | | | | [address] [place] | [place], [place] | cirrhosis type, | | | | [address] [place], [place] | [address] | unspecified whether | | | | [address] | [phone] | ascites present | | | | [phone] | | (HCC) (Primary Dx); | | | | | | Secondary esophageal | | | | | | varices without | | | | | | bleeding (HCC) | +--------+---------+ + + + Social [...] | Blood Pressure | 150/76 | 12/29/2017 2:19 PM | | | | | PST | | + + + + + | Pulse | 69 | 12/29/2017 2:19 PM | | | | | PST | | + + + + + | Temperature | - | - | | + + + + + | Respiratory Rate | 24 | 12/29/2017 2:19 PM | | | | | PST | | + + + + + | Oxygen Saturation | - | - | | + + + + + | Inhaled Oxygen | - | - | | | Concentration | | | | + + + + + | Weight | 101.7 kg (224 lb 3.3 | 12/29/2017 2:19 PM | | | | oz) | PST | | + + + + + | Height | 179.1 cm (5' 10.5") | 12/29/2017 2:19 PM | | | | | PST | | + + + + + | Body Mass Index | 31.72 | 12/29/2017 2:19 PM | | | | | PST | | + + + + + documented in this encounter Plan of Treatment +--------+---------+ + + + | Date | Type | Specialty | Care Team | Description | +--------+---------+ + + + | 04/06/ | Office | Cardiology | Lakisha Kahn DO | | | 2019 | Visit | | [address] | | | | | | [place] | | | | | | [address] | | | | | | | | +--------+---------+ + + + documented as of this encounter Visit Diagnoses + + | Diagnosis | + + | Hepatic cirrhosis, unspecified hepatic cirrhosis type, unspecified whether ascites | | present (HCC) - Primary | + + | Secondary esophageal varices without bleeding (HCC) Esophageal varices without | | mention of bleeding in diseases classified elsewhere | + + documented in this encounter
--- OUTSIDE RECORDS SUMMARY | ~2019-01-07 | XMS | Encounter Summary ---
Demographics + + + | Address | [address] | | | [place] [address] | + + + | Home Phone [...] | [email or web address] | + + + | Organization | [facility] [facility] | + + + | Address | Unknown | + + + | Phone | Unavailable | + + + Support + + +---------+ + | Name | Relationship | Address | Phone | + + +---------+ + | Mary Medellin | ECON | Unknown | | + + +---------+ + Care Team Providers + +------+ + | Care Enamel Burner Name | Role | Phone | + [...] | | [facility] [address] | [address] | | | | | [address] | [place], [place] | | | | | Mailcode: [place] | [address] | | | | | [facility] and | [phone] | | | | | [facility] [address] | | | | | | [place], [place] | | | | | | [address] | | | | | | [phone] | | | +--------+ + + + [...]
--- OUTSIDE RECORDS SUMMARY | ~2019-01-07 | XMS | Encounter Summary ---
Demographics + + + | Address | [address] | | | [place] [address] | + + + | Home Phone [...] + + + | Author | [facility] [employer] [facility] | + + + | Organization | [facility] [employer] [facility] | + + + | Address | Unknown | + + + | Phone | Unavailable | + + + Support + + +---------+ + | Name | Relationship | Address | Phone | + + +---------+ + | Mary Medellin | ECON | Unknown | | + + +---------+ + Care Team Providers + +------+ + | Care Manager Lvn Name | Role | Phone | + +------+ + | Shakir Monzon MD | PCP | | + +------+ + Encounter Details +--------+------+ + + + | Date | Type | Department | Care Team | Description | +--------+------+ + + + | 10/14/ | Lab | Laboratory at [facility] | | Hepatic cirrhosis, | | 2017 | | [address] | | unspecified hepatic | | | | [place], [place] | | cirrhosis type | | | | [address] | | (HCC); Chronic | | | | [phone] | | hepatitis C without | | | | | | hepatic coma (HCC) | +--------+------+ + + + Social History [...] + +--------+ + + + | HEPATITIS B SURFACE | Routin | 10/14/2016 | Hepatic cirrhosis, | Results for this | | AG W/REFLEX IF | e | 11:50 AM | unspecified hepatic | procedure are in the | | INDICATED | | PDT | cirrhosis type | results section. | | | | | (HCC) Chronic | | | | | | hepatitis C without | | | | | | hepatic coma (HCC) | | + +--------+ + + + | CBC AND AUTO DIFF | Routin | 10/14/2016 | Hepatic cirrhosis, | Results for this | | | e | 11:50 AM | unspecified hepatic | procedure are in the | | | | PDT | cirrhosis type | results section. | | | | | (HCC) Chronic | | | | | | hepatitis C without | | | | | | hepatic coma (HCC) | | + +--------+ + + + | HEPATITIS C | Routin | 10/14/2016 | Chronic hepatitis | Results for this | | QUANTITATIVE, PLASMA | e | 11:50 AM | C without hepatic | procedure are in the | | | | PDT | coma (HCC) | results section. | + +--------+ + + + | INR | Routin | 10/14/2016 | Hepatic cirrhosis, | Results for this | | | e | 11:50 AM | unspecified hepatic | procedure are in the | | | | PDT | cirrhosis type | results section. | | | | | (HCC) Chronic | | | | | | hepatitis C without | | | | | | hepatic coma (HCC) | | + +--------+ + + + | CBC, WITH | Routin | 10/14/2016 | Hepatic cirrhosis, | Results for this | | DIFFERENTIAL | e | 11:50 AM | unspecified hepatic | procedure are in the | | | | PDT | cirrhosis type | results section. | | | | | (HCC) Chronic | | | | | | hepatitis C without | | | | | | hepatic coma (HCC) | | + +--------+ + + + | HEPATITIS B CORE AB, | Routin | 10/14/2016 | Hepatic cirrhosis, | Results for this | | IGM, SERUM | e | 11:50 AM | unspecified hepatic | procedure are in the | | | | PDT | cirrhosis type | results section. | | | | | (HCC) Chronic | | | | | | hepatitis C without | | | | | | hepatic coma (HCC) | | + +--------+ + + + | COMPLETE METABOLIC | Routin | 10/14/2016 | Hepatic cirrhosis, | Results for this | | SET | e | 11:50 AM | unspecified hepatic | procedure are in the | | (NA,K,CL,CO2,BUN,CRE | | PDT | cirrhosis type | results section. | | AT,GLUC,CA,AST,ALT,B | | | (HCC) Chronic | | | NIC TOTAL,ALK | | | hepatitis C without | | | PHOS,ALB,PROT TOTAL) | | | hepatic coma (HCC) | | + +--------+ + + + | HIV-1,2 AB/HIV-1 P24 | Routin | 10/14/2016 | Hepatic cirrhosis, | Results for this | | AG SCRN | e | 11:50 AM | unspecified hepatic | procedure are in the | | | | PDT | cirrhosis type | results section. | | | | | (HCC) Chronic | | | | | | hepatitis C without | | | | | | hepatic coma (HCC) | | + +--------+ + + + | ALPHA-FETOPROTEIN | Routin | 10/14/2016 | Hepatic cirrhosis, | Results for this | | TUMOR MARKER, SERUM | e | 11:50 AM | unspecified hepatic | procedure are in the | | | | PDT | cirrhosis type | results section. | | | | | (HCC) Chronic | | | | | | hepatitis C without | | | | | | hepatic coma (HCC) | | + +--------+ + + + | HEPATITIS A AB IGM, | Routin | 10/14/2016 | Hepatic cirrhosis, | Results for this | | SERUM | e | 11:50 AM | unspecified hepatic | procedure are in the | | | | PDT | cirrhosis type | results section. | | | | | (HCC) Chronic | | | | | | hepatitis C without | | | | | | hepatic coma (HCC) | | + +--------+ + + + | HEPATITIS A AB | Routin | 10/14/2016 | Hepatic cirrhosis, | Results for this | | SCREEN, SERUM | e | 11:50 AM | unspecified hepatic | procedure are in the | | | | PDT | cirrhosis type | results section. | | | | | (HCC) Chronic | | | | | | hepatitis C without | | | | | | hepatic coma (HCC) | | + +--------+ + + + | BILIRUBIN DIRECT | Routin | 10/14/2016 | Hepatic cirrhosis, | Results for this | | | e | 11:50 AM | unspecified hepatic | procedure are in the | | | | PDT | cirrhosis type | results section. | | | | | (HCC) Chronic | | | | | | hepatitis C without | | | | | | hepatic coma (HCC) | | + +--------+ + + + documented in this encounter Results HEPATITIS A AB IGM, SERUM (10/14/2016 11:50 AM PDT) + + + + + + | Component | Value | Ref Range | Performed | Pathologist | | | | | At | Signature | + + + + + + | HEPATITIS A | Negative | Negative | FLOOD - | | | AB, IGM | | | AIRPORT - | | [...] + | FLOOD - AIRPORT - | [address] | [place] [address] | | | [place] | | | | + + + + + CBC AND AUTO DIFF (10/14/2016 11:50 AM PDT) + + + + + + | Component | Value | Ref Range | Performed | Pathologist | | | | | At | Signature | + + + + + + | WHITE CELL | 5.24 | 3.50 - 10.80 | [facility] | | | COUNT | | K/cu mm | LABORATORY | | | | | | SERVICES, | | | | | | [facility] | | | | | | [facility] | | + + + + + + | RED CELL | 4.08 (L) | 4.50 - 6.00 | [facility] | | | COUNT | | M/cu mm | LABORATORY | | | | | | SERVICES, | | | | | | [facility] + | | | | | | [facility] | | + + + + + + | HEMOGLOBIN | 14.0 | 13.5 - 17.5 | [facility] | | | | | g/dL | LABORATORY | | | | | | SERVICES, | | | | | | [facility] + | | | | | | [facility]AL[facility] | | + + + + + + | HEMATOCRIT | 39.7 (L) | 41.0 - 53.0 % | [facility] | | | | | | LABORATORY | | | | | | SERVICES, | | | | | | [facility] + | | | | | | [facility] | | + + + + + + | MCV | 97.3 (H) | 80.0 - 96.0 fL | [facility] | | | | | | LABORATORY | | | | | | SERVICES, | | | | | | [facility] + | | | | | | [facility] | | + + + + + + | MCHC | 35.3 | 33.0 - 35.5 | [facility] | | | | | g/dL | LABORATORY | | | | | | SERVICES, | | | | | | [facility] + | | | | | | [facility] | | + + + + + + | RDW SD | 48.5 (H) | 35.1 - 46.3 fL | [facility] | | | | | | LABORATORY | | | | | | SERVICES, | | | | | | [facility] + | | | | | | [facility] | | + + + + + + | PLATELET | 63 (L) | 150 - 400 K/cu | [facility] | | | COUNT | | mm | LABORATORY | | | | | | SERVICES, | | | | | | [facility] + | | | | | | [facility] | | + + + + + + | MPV | 10.8 | 9.7 - 12.3 fL | [facility] | | | | | | LABORATORY | | | | | | SERVICES, | | | | | | [facility] | [facility] + | | | | | | [facility] | | + + + + + + | NEUTROPHIL | 63.5 | 50.0 - 70.0 % | [facility] | | | % | | | LABORATORY | | | | | | SERVICES, | | | | | | [facility] | [facility] + | | | | | | [facility]ALING | | + + + + + + | LYMPHOCYTE | 25.0 | 18.0 - 42.0 % | [facility] | | | % | | | LABORATORY | | | | | | SERVICES, | | | | | | [facility] | [facility] + | | | | | | [facility]AL[facility] | | + + + + + + | MONOCYTE % | 8.4 | 3.5 - 9.0 % | [facility] | | | | | | LABORATORY | | | | | | SERVICES, | | | | | | [facility] | [facility] + | | | | | | [facility]AL[facility] | | + + + + + + | EOS % | 2.7 | 1.0 - 3.0 % | [facility] | | | | | | LABORATORY | | | | | | SERVICES, | | | | | | [facility] | [facility] + | | | | | | [facility]ALING | | + + + + + + | BASO % | 0.4 | 0.0 - 2.0 % | [facility] | | | | | | LABORATORY | | | | | | SERVICES, | | | | | | [facility] | [facility] + | | | | | | [facility]ALING | | + + + + + + | NEUTROPHIL | 3.33 | 1.80 - 7.70 | [facility] | | | # | | K/cu mm | LABORATORY | | | | | | SERVICES, | | | | | | [facility] | [facility] + | | | | | | [facility]ALING | | + + + + + + | LYMPHOCYTE | 1.31 | 1.00 - 4.80 | [facility] | | | # | | K/cu mm | LABORATORY | | | | | | SERVICES, | | | | | | [facility] | [facility] + | | | | | | [facility]ALING | | + + + + + + | MONOCYTE # | 0.44 | 0.10 - 0.90 | [facility] | | | | | K/cu mm | LABORATORY | | | | | | SERVICES, | | | | | | [facility] | [facility] + | | | | | | [facility]ALING | | + + + + + + | EOS # | 0.14 | 0.00 - 0.50 | [facility] | | | | | K/cu mm | LABORATORY | | | | | | SERVICES, | | | | | | [facility] | [facility] + | | | | | | [facility]ALING | | + + + + + + | BASO # | 0.02 | 0.00 - 0.10 | [facility] | | | | | K/cu mm | LABORATORY | | | | | | SERVICES, | | | | | | [facility] | [facility] + | | | | | | [facility]ALING | | + + + + + + + + | Specimen | + + | Blood - Blood | | (substance) | + + + + + + + | Performing | Address | City/State/Zipcode | Phone Number | | Organization | | | | + + + + + | [facility] | [address] | [place] [address] | | | [facility] | | | | | HEALTH + HEALING | | | | + + + + + HEPATITIS C QUANTITATIVE, PLASMA (10/14/2016 11:50 AM PDT) + + + + + + | Component | Value | Ref Range | Performed | Pathologist | | | | | At | Signature | + + + + + + | HEP C PCR | 4,500,000 (H) | Undetected | [facility] | | | QUANT, | | IU/mL [...] | + + + + + | [facility] | [address] | [place] [address] | | | DIAGNOSTIC | [address] [...] + + + + + | [facility] | [address] | [place] [address] | | | SERVICES, CORE | [address]VE[address] [...] modified from | [facility] | | original jet inspector's approved specifications. The performance | LABORATORY | | of the ORTHODONTIC TECHNICIAN ASSISTANT HIV Combo test, with or without confirmation, was not | SERVICES, | | tested in pediatric patients less than 2 years of age. [facility] | SPECIAL IMM + | | guidelines [...] + + + + + | [facility] | [address] | [place] [address] | | | SERVICES, SPECIAL | PARVEEN [...] + | FLOOD - AIRPORT - | [address] | [place] [address] | | | [place] | | | [...] + + + + + | [facility] | [address] | [place] [address] | | | SERVICES, CORE | PARVEEN [...] by | | | | | | [employer],[address] | | | | | | [address] [facility] [employer],[place] | | | | | | [address] | | | | | | [phone]. | | | | | | Júnior [...] [facility] | [address] | [place], [place] | | | [facility] | | [address] | | + + + + + [...] + + + + + | [facility] | [address] | [place] [address] | | | SERVICES, CORE | PARVEEN [...] + + + + + | [facility] | [address] | [place] [address] | | | SERVICES, JORGE [address] | [...] | | | LABORATORY | | | GREEK | | | SERVICES, | | | [...] | Adult glucose reference range change effective 08-26-16. GFR is | [facility] | | estimated [...] + + + + + | [facility] | [address] | [place] [address] | | | SERVICES, CORE | [address] | | | + + + + + documented in this encounter Visit Diagnoses + + | Diagnosis | + + | Hepatic cirrhosis, unspecified hepatic cirrhosis type (HCC) | + + | Chronic hepatitis C without hepatic coma (HCC) | + + documented in this encounter"
--- OUTSIDE RECORDS SUMMARY | ~2019-01-07 | XMS | Encounter Summary ---
Demographics + + + | Address | [address] | | | [place] [address] | + + + | Home Phone | | + + + | Preferred Language | Unknown | + + + | Marital Status | Single | + + + | Islam Affiliation | Unknown | + + + | Race | Unknown | + + + | Ethnic Group | Unknown | + + + Author + + + | Author | [facility] | | | and [place] | + + + | Organization | [facility] | | [...] Team Providers + +------+ + | Care Skeins Yarn Examiner Name | Role | Phone | + +------+ + | Shakir Monzon DO | PCP | | + +------+ + Reason for Visit + + + | Reason | Comments | + + + | Appointment | | + + + Encounter Details +--------+ + + + + | Date | Type | Department | Care Team | Description | +--------+ + + + + | 04/07/ | Telephone | [facility] [place] | [facility], | Appointment | | 2017 | | GASTROENTEROLOGY | [address] | | | | | [address] [place] | [place], [address] | | | | | [address] [place], [place] | [place], [place] | | | | | [address] | [address] | | | | | [phone] | | | +--------+ + + + [...] [place] | | | | | | [address] | | | | | | | | +--------+---------+ + + + documented as of this encounter Visit Diagnoses Not on filedocumented in this encounter"
--- OUTSIDE RECORDS SUMMARY | ~2019-01-07 | XMS | Encounter Summary ---
Demographics + + + | Address | [address] | | | [place] [address] | + + + | Home Phone | | + + + | Preferred Language | Unknown | + + + | Marital Status | Single | + + + | Episcopalian Affiliation | Unknown | + + + | Race | Unknown | + + + | Ethnic Group | Unknown | + + + Author + + + | Author | [facility] | | | and [place] | + + + | Organization | [facility] | | [...] Team Providers + +------+ + | Care Jet Man Name | Role | Phone | + [...] + + + + | 09/10/ | Telephone | [facility] | Donell Hunt MD | Procedure | | 2017 | | GASTROENTEROLOGY | [address] [facility] | | | | | [address] [facility] | [place], [place] | | | | | [address] [place], [place] | [address] | | | | | [address] | [phone] | | | | | [phone] | | | +--------+ + + + [...] [place] | | | | | | [address] | | | | | | | | +--------+---------+ + + + documented as of this encounter Visit Diagnoses Not on filedocumented in this encounter"
--- OUTSIDE RECORDS SUMMARY | ~2019-01-07 | XMS | Encounter Summary ---
Demographics + + + | Address | [address] | | | [place] [address] | + + + | Home Phone [...] Author + + + | Author | [facility] [employer] [facility] | + + + | Organization | [facility] [employer] [facility] | + + + | Address | Unknown | + + + | Phone | Unavailable | + + + Support + + +---------+ + | Name | Relationship | Address | Phone | + + +---------+ + | Mary Medellin | ECON | Unknown | | + + +---------+ + Care Team Providers + +------+ + | Care Handhole Machine Operator Name | Role | Phone [...] | (isosorbide ) | | | | [address] | [address] | | | | | Mailcode: [id number] | [place], [place] | | | | | [facility] | [address] | | | | | [address], | [phone] | | | | | [place] [address] | | | | | | [phone] | | | +--------+--------+ + + + [...]
--- OUTSIDE RECORDS SUMMARY | ~2019-01-07 | XMS | Encounter Summary ---
Demographics + + + | Address | [address] | | | [place] [address] | + + + | Home Phone [...] Author + + + | Author | [facility] | + + + | Organization | [facility] [employer] [facility] | + + + | Address | Unknown | + + + | Phone | Unavailable | + + + Support + + +---------+ + | Name | Relationship | Address | Phone | + + +---------+ + | Mary Medellin | ECON | Unknown | | + + +---------+ + Care Team Providers + +------+ + | Care Project Management Professor Name | Role | Phone | + [...] Cholangitis | MD Moustapha | [address] | | | | | Procedures | [address] | [address] | | | | | MRI | [address] | [address] | | | | | CHOLANGIOGRA | Rd | Mailcode: | | | | | PHY [address] | [place], [place] | [address] | | | | | CONTRAST (+ | [address] | Cherrie | | | | | [place]) | Phone: | Research | | | | | | [phone] | [place] | | | | | | Fax: | [place], [place] | | | | | | [phone] | [address] | | | | | | | Phone: | | | | | | | [phone] | | | | | | | Fax: | | | | | | | [phone] | +--------+--------+ + + + + Reason for Visit + + + | Reason | Comments | + + + | Pre-op evaluation | | + + + Encounter Details +--------+---------+ + + + | Date | Type | Department | Care Team | Description | +--------+---------+ + + + | 09/10/ | Office | Trauma Emergency | Moustapha Schafer MD | Cholangitis (Primary | | 2018 | Visit | General Surgery at | [address] | Dx) | | | | PPV [address] [place], | | | | | [facility] | [place] [address] | | | | | Mailcode: [id number] | [phone] | | | | | [address] [place] | | | | | | [address] [place], [place] | | | | | | [address] | | | | | | [phone] | | | +--------+---------+ + + + [...] + + + | Blood Pressure | 134/82 | 09/10/2017 2:16 PM | | | | | PDT | | + + + + + | Pulse | 93 | 09/10/2017 2:16 PM | | | | | PDT | | + + + + + | Temperature | 36.8 C (98.2 F) | 09/10/2017 2:16 PM | | | | | PDT | | + + + + + | Respiratory Rate | 16 | 09/10/2017 2:16 PM | | | | | PDT | | + + + + + | Oxygen Saturation | 99% | 09/10/2017 2:16 PM | | | | | PDT | | + + + + + | Inhaled Oxygen | - | - | | | Concentration | | | | + + + + + | Weight | 91.8 kg (202 lb 6.4 | 09/10/2017 2:16 PM | | | | oz) | PDT | | + + + + + | Height | - | - | | + + + + + | Body Mass Index | 28.63 | 08/13/2017 1:56 PM | | | [...] documented as of this encounter Progress Notes Moustapha Schafer MD - 09/10/2017 2:30 PM PDT Bret Espinal Jr. is a 61 y.o. 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 Events since last clinic visit from GI: MRCP 08/05 with extrinsic compression of CHD via external fluid collection, no choledocholit hiasis. IR does not feel there is a window for now percutaneous drain placement into the flu id collection and does not feel that manipulation of the current cholecystostomy tube would address the angel hepatis collection. There are no endoscopic drainage options based on cur rent size and location. Stenting of the externally compression causing CHD stricture would be indicated in the setting of clinical concern for cholangitis or if bili continues to tren d upwards to levels above 4. ROS: Drain output is increasing approximately >100cc per day Physical exam: BP 118/55 | Pulse 58 [...] Incision: none : Not evaluated Extremities: WWP Assessment/Plan: s/p ruptured GB, s/p tube placement. He is at very high risk for any surgical interventions both from a cardiac and liver standp oint (Child Class B). Plan for repeat MRCP and LFTs for surgical planning. Labs prior to next appointment P M PDTdocumented in this encounter Plan of Treatment +--------+ [...] | | + +------+--------+ + + | COMPLETE METABOLIC | Lab | Routin | Cholangitis | Expected: 09/10/2017 | | SET | | e | | (Approximate), | | (NA,K,CL,CO2,BUN,CRE | | | | Expires: 10/11/2018 | | AT,GLUC,CA,AST,ALT,B | | | | | | NIC TOTAL,ALK | | | | | | PHOS,ALB,PROT TOTAL) | | | | | + +------+--------+ + + documented as of this encounter Results MRI CHOLANGIOGRAPHY WWO CONTRAST [...] Note | + + | Service Account, [employer] In Interface - 09/27/2017 9:10 AM [...] Bartlett MD 09/27/2017 9:09 AM Preliminary: Petar Cross | Wendi Albright MD 09/24/2017 5:31 PM [...]
--- OUTSIDE RECORDS SUMMARY | ~2019-01-07 | XMS | Encounter Summary ---
Demographics + + + | Address | [address] | | | [place] [address] | + + + | Home Phone [...] Providers + +------+ + | Care Manager Speech Name | Role | Phone | + [...] + | 12/18/ | Telephone | [facility] | Donell Hunt MD | Results | | 2017 | | GASTROENTEROLOGY | [address] | | | | | [address] [facility] | [place], [place] | | | | | [address] [place] | [address] | | | | | [address] | [phone] | | | | | [phone] | | | +--------+ + + + [...] | | | | [place] | | | | | | [address] | | | | | | | | +--------+---------+ + + + documented as of this encounter Visit Diagnoses Not on filedocumented in this encounter"
--- OUTSIDE RECORDS SUMMARY | ~2019-01-07 | XMS | Encounter Summary ---
Demographics + + + | Address | [address] | | | [place] [address] | + + + | Home Phone [...] + + + | Author | [facility] | | | and [place] | + + + | Organization | [facility] | | | [...] Team Providers + +------+ + | Care Hand Clerical Verifier Name | Role | Phone | + +------+ + | Shakir Monzon DO | PCP | | + +------+ + Encounter Details +--------+ + + + + | Date | Type | Department | Care Team | Description | +--------+ + + + + | 06/30/ | Episode | [facility] [place] | Brandi Serrano, | | | 2016 | Changes | GASTROENTEROLOGY | RN | | | | | [address] [place] | | | | | | [address] | | | | | | [address] | | | | | | [phone] | | | +--------+ + + + [...] | | | | | [place] [address] [place] | | | | | | [address] | | | | | | | | +--------+---------+ + + + documented as of this encounter Visit Diagnoses Not on filedocumented in this encounter"
--- OUTSIDE RECORDS SUMMARY | ~2019-01-07 | XMS | Encounter Summary ---
Demographics + + + | Address | [address] | | | [place] [address] | + + + | Home Phone | | + + + | Preferred Language | Unknown | + + + | Marital Status | Single | + + + | Moravian Affiliation | Unknown | + + + [...] Team Providers + +------+ + | Care Business Continuity Planner Name | Role | Phone | [...] Closed | | Nurse | Diagnoses | [place], | [place], | | | | Practitioner | Follow up | Shakir Fagan DO | [place], | | | | / | per phone | [address] | OIL OPERATOR [address] | | | | Gastroenterol | note/ | CONFEDERATED | [place], [place] | | | | ogy | [address]/ | [address] | [address] [place] | | | | | [place]/ | [place], | [place], [place] | | | | | Self | [place] [address] | [address] Phone: | | | | | Procedures | Phone: | [phone] | | | | | OFFICE VISIT | [phone] | Fax: | | | | | REGULAR | Fax: | [phone] | | | | | | [phone] | | +--------+--------+ + + + + Encounter Details +--------+---------+ + + + | Date | Type | Department | Care Team | Description | +--------+---------+ + + + | 04/29/ | Office | [facility] | [place], | Hepatic cirrhosis, | | 2017 | Visit | GASTROENTEROLOGY | [place] [address] [address] | unspecified hepatic | | | | [address] [place] | [place], [place] [address] | cirrhosis type (HCC) | | | | [address] [place], [place] | [place], [place] | (Primary Dx); | | | | [address] | [address] | Chronic hepatitis C | | | | [phone] | | without hepatic coma | | | | | | (HCC); Alcohol use | | | | | | disorder, moderate, | | | | | | in early remission | | | | | | (HCC); Marijuana use | +--------+---------+ + + + [...] to Quit: No; Counseling Given: Yes | | Comments: 2-5 cigs daily | + + + + +---------+ + [...] Temperature | 36.8 C (98.2 F) | 04/29/2016 9:52 AM | | | | | PDT | | + + + + + | Respiratory Rate | 16 | 04/29/2016 9:52 AM | | | | | PDT | | + + + + + | Oxygen Saturation | - | - | | + + + + + | Inhaled Oxygen | - | - | | | Concentration | | | | + + + + + | Weight | 98.4 kg (217 lb) | 04/29/2016 9:52 AM | | | | | PDT | | + + + + + | Height | - | - | | + + + + + | Body Mass Index | 30.7 | 07/10/2015 11:18 AM | | | | | PDT | | + + + + + documented in this encounter Progress Notes [place] Boston ARNP - 04/29/2016 10:28 AM PDTFormatting of this note might be differe nt from the original. Bret Espinal Jr. is a 60 y.o. male here for followup cirrhosis and HCV. History of present illness: He has had recent labs done related to cirrhosis. He would like to discuss HCV treatment fu rther. He admits to continued marijuana use. He states he uses a small amount at night to help wit h anxiety. He has not discussed anxiety or alternative treatments with PCP. Scheduled for EGD 05/05/2016 to screen for esophageal varices. States he has been feeling well. He reports being sober from alcohol for 3 months now. Denies ascites, jaundice, hematemesis, peripheral edema, sleep [...] Every Day Smoker Smokeless tobacco: Never Used Comment: 2-5 cigs daily Alcohol Use: 0.0 oz/week 0 Standard drinks [...] grossly intact. Psych: Appropriate mood and affect. No visits with results within 1 Month(s) from this visit. Latest known visit with results is: Abstract on 03/20/2016 Component Date Value Ref Range Status Creatinine, External 02/17/2016 0.90 0.7 - 1.25 Final eGFR, External 02/17/2016 >60 60 - 618693 Final WBC, External 02/17/2016 6.2 4.5 - [...] 30* 0 - 4 Final UA Specific [place], External 02/17/2016 1.026 1.005 - 1.03 Final [...] WBC, UA 02/17/2016 0 Final Assessment 1. Hepatic cirrhosis, unspecified hepatic cirrhosis type (HCC) 2. Chronic hepatitis C without hepatic coma (HCC) 3. Alcohol use disorder, moderate, in early remission (HCC) 4. Marijuana use Plan: Again, discussed the need to be sober from alcohol, marijuana, and all other illegal substa nces for a minimum of 6 months prior to HCV treatment. Patient states that he does not agree with the substance abuse requirements for HCV treatme nt. He would like to speak with a different office regarding HCV treatment. He will continue to have EGD done as scheduled. He was given information for infectious disease provider in [facility]. He can have HCV darlene atment evaluation there as well. Discussed that infectious disease will not treat cirrhosis. Even with cure of HCV virus, he will need continued evaluation of liver due to increase ris k of hepatocellular carcinoma. Spent approximately 25 minutes with patient, with over half in patient education regarding preparation for HCV treatment and continues surveillance of liver. Will follow up with results. Patient is to call with any question or concerns. Any fevers, chills, chest pain, SOB or other serious symptoms patient is to call the office or go to ER . Cc: Shakir Monzon, DO This note was dictated using voice recognition software. Please contact me if there are an y questions regarding its content. Electronically signed by MI Milligan at 04/16 6:53 PM PDTdocumented in this encounter Plan of Treatment +--------+---------+ + + + | Date | Type | Specialty | Care Team | Description | +--------+---------+ + + + | 04/06/ | Office | Cardiology | Lakisha Kahn DO | | | 2019 | Visit | | [address] | | | | | | [place] | | | | | | [address] | | | | | | | | +--------+---------+ + + + documented as of this encounter Visit Diagnoses + + | Diagnosis | + + | Hepatic cirrhosis, unspecified hepatic cirrhosis type (HCC) - Primary | + + | Chronic hepatitis C without hepatic coma (HCC) | + + | Alcohol use disorder, moderate, in early remission (HCC) | + + | Marijuana use Cannabis abuse, unspecified | + + documented in this encounter"
--- OUTSIDE RECORDS SUMMARY | ~2019-01-07 | XMS | Encounter Summary ---
Demographics + + + | Address | [address] | | | [place] [address] | + + + | Home Phone [...] + + | Author | [facility] | + + + | Organization | [facility] | + + + | Address | Unknown | + + + | Phone | Unavailable | + + + Support + + +---------+ + | Name | Relationship | Address | Phone | + + +---------+ + | Mary Medellin | ECON | Unknown | | + + +---------+ + Care Team Providers + +------+ + | Care Trip Follower Name | Role | Phone | + [...] | | | | PHY [address] | [place], [place] | [address] | | | | | CONTRAST (+ | [address] | [place] | | | | | [place]) | Phone: | Research | | | | | | [phone] | [place] | | | | | | Fax: | [place], [place] | | | | | | [phone] | [address] | | | | | | | Phone: | | | | | | | [phone] | | | | | | | Fax: | | | | | | | [phone] | +--------+--------+ + + + + Reason [...] | | | | CONTRAST (+ | [address] | [place] | | | | | [place]) | Phone: | Research | | | | | | [phone] | Center | | | | | | Fax: | [place], [place] | | | | | | [phone] | [address] | | | | | | | Phone: | | | | | | | [phone] | | | | | | | Fax: | | | | | | | [phone] | +--------+--------+ + + + + Encounter Details +--------+ + + + + | Date | Type | Department | Care Team | Description | +--------+ + + + + | 09/24/ | Hospital | Diagnostic Imaging | Moustapha Schafer MD | | | 2018 | Encounter | Services at [facility] | [address] | | | | | [address] | [place], | | | | | [place] Mailcode: | [place] [address] | | | | | [address] [place] | [phone] | | | | | [facility] | | | | | | [place], [place] | | | | | | [address] | | | | | | [phone] | | | +--------+ + + + [...] Note | + + | Service Account, [facility] - 09/27/2017 9:10 AM [...] + + | [facility] | [address] | [place], [place] | | | [place], POINT OF CARE | [facility] | [address] | | | TESTS | | | [...]
--- OUTSIDE RECORDS SUMMARY | ~2019-01-07 | XMS | Encounter Summary ---
Demographics + + + | Address | [address] | | | [place] [address] | + + + | Home Phone [...] + + | Author | [facility] | + + + | Organization | [facility] | + + + | Address | Unknown | + + + | Phone | Unavailable | + + + Support + + +---------+ + | Name | Relationship | Address | Phone | + + +---------+ + | Mary Medellin | ECON | Unknown | | + + +---------+ + Care Team Providers + +------+ + | Care Barrel Liner Name | Role | Phone | + +------+ + | Shakir Monzon MD | PCP | | + +------+ + Encounter Details +--------+------+ + + + | Date | Type | Department | Care Team | Description | +--------+------+ + + + | 10/14/ | Lab | Laboratory at [facility] | | Hepatic cirrhosis, | | 2017 | | [address] | | unspecified hepatic | | | | [place], [place] | | cirrhosis type | | | | [address] | | (HCC); Chronic | | | | [phone] | | hepatitis C without | | [...] + | FLOOD - AIRPORT - | [address] | [place] [address] | | | [place] | | | [...] | + + + + + | [facility] | [address] | [place] [address] | | | [facility] | | | | | HEALTH + [...] + + + | [facility] | [address] | [place] [address] | | | DIAGNOSTIC | [address] [...] | + + + + + | [facility] | [address] | [place] [address] | | | SERVICES, CORE | [address]VE[address] [...] modified from | [facility] | | original roller presser operator's approved specifications. The performance | LABORATORY | | of the SPECIAL PROCEDURES TECHNOLOGIST HIV Combo test, with or without confirmation, was not | SERVICES, | | tested in pediatric patients less than 2 years of age. [facility] | SPECIAL IMM + | | guidelines [...] | + + + + + | [facility] | [address] | [place] [address] | | | SERVICES, SPECIAL | [address]VE[address] [...] + | FLOOD - AIRPORT - | [address] | [place] [address] | | | [place] | | | [...] | + + + + + | [facility] | [address] | [place] [address] | | | SERVICES, CORE | PARVEEN [...] by | | | | | | [employer],[address] | | | | | | Marky Tapia [facility] | | | | | | [address] | | | | | | [phone] | | | | | Júnior [...] [facility] | [address] | [place], [place] | | | [facility] | | [address] | | + + + + + [...] | + + + + + | [facility] | [address] | [place] [address] | | | SERVICES, CORE | PARVEEN [...] | + + + + + | [facility] | [address] | [place] [address] | | | SERVICES, JORGE L | [...] | | | LABORATORY | | | [place] | | | SERVICES, | | | [...] | + + + + + | [facility] | [address] | [place] [address] | | | SERVICES, CORE | [address] | | | + + + + + documented in this encounter Visit Diagnoses + + | Diagnosis | + + | Hepatic cirrhosis, unspecified hepatic cirrhosis type (HCC) | + + | Chronic hepatitis C without hepatic coma (HCC) | + + documented in this encounter"
--- OUTSIDE RECORDS SUMMARY | ~2019-01-07 | XMS | Encounter Summary ---
Demographics + + + | Address | [address] | | | [place] [address] | + + + | Home Phone | | + + + | Preferred Language | Unknown | + + + | Marital Status | Single | + + + | Yazidi Affiliation | Unknown | + + + | Race | Unknown | + + + | Ethnic Group | Unknown | + + + Author + + + | Author | [facility] | | | and [place] | + + + | Organization | [facility] | | | [...] Providers + +------+ + | Care Hand Rug Braider Name | Role | Phone | + [...] + + | 05/05/ | Hospital | [facility] | [place] Hunt MD | Hepatic cirrhosis, | | 2017 | Encounter | [facility] | [address] | unspecified hepatic | | | | [address] | [place], [place] | cirrhosis type (HCC) | | | | [place], [place] | [address] | (Primary Dx) | | | | [address] | [phone] | | | | | [phone] | | | +--------+ + + + [...] the physician who did your procedure at [phone] if you have any questions or experience any of the following: ? Increasing abdominal pain, nausea, or vomiting. ? Chills and fever over 101F. ? New abdominal swelling or bloating. ? Signs of rectal bleeding (black or red stool). If you cannot get a hold of your physician, then call the [facility] [phone] . If necessary, report to the Emergency Department at [facility]. Quit smoking: If you smoke or have [...] | | | | | [place]REA [place], [place] | | | | | | [address] | | | | | | | [...] 05/05/2016 | PROVATION | | 9:49 AMN: [id number] #: [id number] of : | | | 1955dmit Type: AmbulatoryAge: 60Room: [facility] 02Gender: MaleNote | | | Status: FinalizedAttending MD: Don[place] Hunt , [facility]cedure: | | | Upper GI endoscopyIndications: For therapy of | | | esophageal varicesProviders: Donell Hunt MD, Jennifer | | | SADA Mackenzie, Daniella Yousif, Directional Survey Drafter, | | | Preston Wheat MD (Anesthesia [...] | | | the anesthesiologist and the assembly technician in the pre-procedure | | | [...] | | | AMScope Out: 10:06:08 AM Merged With [facility] | | | [place] [address] | | | instructions were provided to [...] |Scope Out: 10:06:08 AM | | | Merged With [facility], [address] [place], [place] | | | [address] | | + + -+ + +---------+ [...] ST. | [address] | [place] | [phone] | | [facility] | | [address] | | | - LABORATORY | | [...] organisms by immunohistochemical stain. | | | CLR:[facility]:C2NR GROSS DESCRIPTION: Received in formalin labeled | | | "Bret Amber" and "gastric bxs" on the requisition are six pink-flowers | | | tissue fragments measuring from 0.2-0.7 cm, submitted, all in (A1). | | | ka:CLR:[facility] ADDITIONAL NOTES: Immunohistochemical studies were | | | performed on this case with the appropriate negative and positive | | | controls that react as expected. This test was developed and its | | | performance characteristics determined by [employer]. It | | | has not been [...] processing and slide preparation were performed by [employer] | | | [employer], [address], [place] [address] | | | (Research Chief Engineer: Catrachito Ortiz M.D. CLIA#: [id number]). | | | Professional interpretation was performed by [employer], [address] | [address], [place] [address] (Research Chief Engineer: Catrachito | | | Natalya Ortiz; CLIA#: [id number]). Diagnostician: | | | Mina Terrell MD [...]
--- OUTSIDE RECORDS SUMMARY | ~2019-01-07 | XMS | Encounter Summary ---
Demographics + + + | Address | [address] | | | [place] [address] | + + + | Home Phone | | + + + | Preferred Language | Unknown | + + + | Marital Status | Single | + + + | Hoahaoism Affiliation | Unknown | + + + [...] Team Providers + +------+ + | Care Pulverizer Tender Name | Role | Phone | [...] | MED CTR EXTERNAL | MD [address] | | | | | IMAGING | [place]ie [place] | | | | | [phone] | [place] [address] | | +--------+ + + + + [...] [place] | | | | | | [address] | | | | | | | [...] for comparison only - no result from [place]. | [facility] | + + + + +---------+ + + | Performing | Address | City/State/Zipcode | Phone Number | | Organization | | | | + +---------+ + + | [facility] | | | | + +---------+ + + documented in this encounter Visit Diagnoses Not on filedocumented in this encounter"
--- OUTSIDE RECORDS SUMMARY | ~2019-01-07 | XMS | Encounter Summary ---
Demographics + + + | Address | [address] | | | [place] [address] | + + + | Home Phone [...] Author + + + | Author | [facility] [employer] [facility] | + + + | Organization | [facility] [employer] [facility] | + + + | Address | Unknown | + + + | Phone | Unavailable | + + + Support + + +---------+ + | Name | Relationship | Address | Phone | + + +---------+ + | Mray Medellin | ECON | Unknown | | + + +---------+ + Care Team Providers + +------+ + | Care Gummed Tape Press Operator Name | Role | Phone [...] | | | | | GI | [place], [place] | [address] | | | | | PROCEDURE: | [id number] | [place] | | | | | ERCP / | Phone: | [address] | | | | | BILIARY | [phone] | [place], | | | | | [place] | Fax: | [place] [address] | | | | | | [phone] | Phone: | | | | | | | [phone] | | | | | | | Fax: | | | | | | | [phone] | +--------+--------+ + + + + Reason [...] South | | | | | Mailcode: Center | [place], [place] | | | | | [facility] and | [address] | | | | | [facility] | [phone] | | | | | [place], [place] | | | | | | [address] | | | | | | [phone] | | | +--------+ + + + [...]
--- OUTSIDE RECORDS SUMMARY | ~2019-01-07 | XMS | Encounter Summary ---
Demographics + + + | Address | [address] | | | [place] [address] | + + + | Home Phone [...] Team Providers + +------+ + | Care Zigzag Tunnel Elastic Operator Name | Role | Phone | [...] Closed | | Radiology | Diagnoses | Ilia | Terencem Echo | | | | | Shortness | MD [place] | [address] | | | | | of breath | [address] | [place], | | | | | Procedures | [address] | [place] | | | | | ECHO | Rd | [address] | | | | | Complete [place] | [place], [place] | Phone: | | | | | ECHO HEART | [address] | [phone] | | | | | [place] | Phone: | Fax: | | | | | [address] | [phone] | [phone] | | | | | [place] | Fax: | | | | | | ECHO HEART | [phone] | | | | | | [place] | | | | | | | MPLETE, W/O | | | | | | | DOPPLER | | | +--------+--------+ + + + + Encounter Details +--------+ + + + + | Date | Type | Department | Care Team | Description | +--------+ + + + + | 10/21/ | Transcribed | [facility] [place] | Clniton [place], | Shortness of breath | | 2018 | Orders | CARDIOLOGY [address] | MD [address] [facility] | | | | | [place], | [address] | | | | | [place] [address] | [place], [place] | | | | | [phone] | [address] | | | | | | [phone] | | | | | | | [...] [place] | | | | | | [address] | | | | | | | | +--------+---------+ + + + + + +--------+ + + | Name | Type | Priori | Associated Diagnoses | Order Schedule | | | | ty | | | + + +--------+ + + | ECHO Complete | Echocardiog | Routin | Shortness of | Expected: | | | loreta | e | breath | 10/21/2017, Expires: | | | | | | 10/21/2018 | + + +--------+ + + documented as of this encounter Visit Diagnoses + + | Diagnosis | + + | Shortness of breath | + + documented in this encounter"
--- OUTSIDE RECORDS SUMMARY | ~2019-01-07 | XMS | Encounter Summary ---
Demographics + + + | Address | [address] | | | [place] [address] | + + + | Home Phone | | + + + | Preferred Language | Unknown | + + + | Marital Status | Single | + + + | Tenriism Affiliation | Unknown | + + + | Race | Unknown | + + + | Ethnic Group | Unknown | + + + Author + + + | Author | [facility] | | | and [place] | + + + | Organization | [facility] | | | [...] Team Providers + +------+ + | Care Workers Compensation Claims Assistant Name | Role | Phone | + +------+ + | Shakir Monzon DO | PCP | | + +------+ + Encounter Details +--------+ + + + + | Date | Type | Department | Care Team | Description | +--------+ + + + + | 12/01/ | Abstract | YAN JOSE | Provider, | | | 2017 | | GASTROENTEROLOGY | MD [address]ie [address] | | | | | [address] | Stefanie OAKLEY | | | | | [address] | [place] [address] | | | | | [address] | | | | | | [phone] | | | +--------+ + + + [...] [place] | | | | | | [id number] | | | | | | | | +--------+---------+ + + + documented as of this encounter Procedures + +--------+ + + + | Procedure Name | Priori | Date/Time | Associated Diagnosis | Comments | | | ty | | | | + +--------+ + + + | EXTERNAL LAB: BUN | Routin | 11/08/2017 | | Results for this | | | e | | | procedure are in the | | | | | | results section. | + +--------+ + + + | EXTERNAL LAB: | Routin | 11/08/2017 | | Results for this | | GLUCOSE | e | | | procedure are in the | | | | | | results section. | + +--------+ + + + | EXTERNAL LAB: LIPASE | Routin | 11/08/2017 | | Results for this | | | e | | | procedure are in the | | | | | | results section. | + +--------+ + + + | EXTERNAL LAB: ALT | Routin | 11/08/2017 | | Results for this | | | e | | | procedure are in the | | | | | | results section. | + +--------+ + + + | EXTERNAL LAB: AST | Routin | 11/08/2017 | | Results for this | | | e | | | procedure are in the | | | | | | results section. | + +--------+ + + + | EXTERNAL LAB: | Routin | 11/08/2017 | | Results for this | | ALKALINE PHOSPHATASE | e | | | procedure are in the | | | | | | results section. | + +--------+ + + + | EXTERNAL LAB: | Routin | 11/08/2017 | | Results for this | | BILIRUBIN, TOTAL | e | | | procedure are in the | | | | | | results section. | + +--------+ + + + | EXTERNAL LAB: | Routin | 11/08/2017 | | Results for this | | ALBUMIN | e | | | procedure are in the | | | | | | results section. | + +--------+ + + + | EXTERNAL LAB: | Routin | 11/08/2017 | | Results for this | | PROTEIN, TOTAL | e | | | procedure are in the | | | | | | results section. | + +--------+ + + + | EXTERNAL LAB: | Routin | 11/08/2017 | | Results for this | | CALCIUM | e | | | procedure are in the | | | | | | results section. | + +--------+ + + + | EXTERNAL LAB: CARBON | Routin | 11/08/2017 | | Results for this | | DIOXIDE | e | | | procedure are in the | | | | | | results section. | + +--------+ + + + | EXTERNAL LAB: | Routin | 11/08/2017 | | Results for this | | CHLORIDE | e | | | procedure are in the | | | | | | results section. | + +--------+ + + + | EXTERNAL LAB: | Routin | 11/08/2017 | | Results for this | | POTASSIUM | e | | | procedure are in the | | | | | | results section. | + +--------+ + + + | EXTERNAL LAB: SODIUM | Routin | 11/08/2017 | | Results for this | | | e | | | procedure are in the | | | | | | results section. | + +--------+ + + + | EXTERNAL LAB: | Routin | 11/08/2017 | | Results for this | | URINALYSIS | e | | | procedure are in the | | | | | | results section. | + +--------+ + + + | EXTERNAL LAB: CBC | Routin | 11/08/2017 | | Results for this | | | e | | | procedure are in the | | | | | | results section. | + +--------+ + + + | EXTERNAL LAB: EGFR | Routin | 11/08/2017 | | Results for this | | | e | | | procedure are in the | | | | | | results section. | + +--------+ + + + | EXTERNAL LAB: | Routin | 11/08/2017 | | Results for this | | CREATININE | e | | | procedure are in the | | | | | | results section. | + +--------+ + + + | URINALYSIS, REFLEX | Routin | 11/08/2017 | | Results for this | | MICROSCOPIC AND/OR | e | | | procedure are in the | | CULTURE | | | | results section. | + +--------+ + + + | CBC WITH | Routin | 11/08/2017 | | Results for this | | DIFFERENTIAL | e | | | procedure are in the | | | | | | results section. | + +--------+ + + + | COMPREHENSIVE | Routin | 11/08/2017 | | Results for this | | METABOLIC PANEL | e | | | procedure are in the | | | | | | results section. | + +--------+ + + + documented in this encounter Results Urinalysis, Reflex Microscopic and/or Culture (11/08/2017) + + + + + + | [...] + + + + | Urobilinoge | Normal | < 0.2 mg/dL, | | | [...] + + + + + + | BACTERIA UA | Negative | Negative /HPF | | | + + + + + + | CASTS | Negative | | | | + + + + + + | CRYSTAL UA | Negative | | | | + + + + + + | Epithelial | 1+ | | | | | Cells | | | | | + + + + + + | WBC | 2 | 0 - 4 /hpf | | | + + + + + + + + | Specimen | + + | Urine | + + CBC with Differential (11/08/2017) + +-------+ + + + | Component | Value | Ref Range | Performed | Pathologist | | | | | At | Signature | + +-------+ + + + | MCH | 32.0 | 26.0 - 33.0 pg | | | + +-------+ + + + | MCHC | 35.0 | 31.0 - 37.0 % | | | + +-------+ + + + | % Basophils | 1.1 | 0.0 - 2.0 % | | | + +-------+ + + + + + | Specimen | + + | Blood | + + Comprehensive Metabolic Panel (11/08/2017) + +---------+ + + + | Component | Value | Ref Range | Performed | Pathologist | | | | | At | Signature | + +---------+ + + + | Bun/Creatin | 17.0 | 6 - 28.6 Ratio | | | | ine | | | | | + +---------+ + + + | Globulin | 3.6 (A) | 1.8 - 3.5 g/dL | | | + +---------+ + + + | Albumin/Alessia | 0.9 (A) | 1.1 - 2.4 Ratio | | | | bulin Ratio | | | | | + +---------+ + + + + + | Specimen | + + | Blood | + + External Lab: BUN (11/08/2017) + +-------+ + + + | Component | Value | Ref Range | Performed | Pathologist | | | | | At | Signature | + +-------+ + + + | BUN, | 16 | 6 - 23 | | | | External | | | | | + +-------+ + + + External Lab: Glucose (11/08/2017) + +---------+ + + + | Component | Value | Ref Range | Performed | Pathologist | | | | | At | Signature | + +---------+ + + + | Glucose, | 308 (A) | 70 - 100 | | | | External | | | | | + +---------+ + + + External Lab: Lipase (11/08/2017) + +-------+ + + + | Component | Value | Ref Range | Performed | Pathologist | | | | | At | Signature | + +-------+ + + + | Lipase, | 9 (A) | 11 - 82 | | | | External | | | | | + +-------+ + + + External Lab: ALT (11/08/2017) + +-------+ + + + | Component | Value | Ref Range | Performed | Pathologist | | | | | At | Signature | + +-------+ + + + | ALT, | 18 | 7 - 52 | | | | External | | | | | + +-------+ + + + External Lab: AST (11/08/2017) + +-------+ + + + | Component | Value | Ref Range | Performed | Pathologist | | | | | At | Signature | + +-------+ + + + | AST, | 26 | 13 - 39 | | | | External | | | | | + +-------+ + + + External Lab: Alkaline Phosphatase (11/08/2017) + +---------+ + + + | Component | Value | Ref Range | Performed | Pathologist | | | | | At | Signature | + +---------+ + + + | ALP, | 3.2 (A) | 3.5 - 5 | | | | External | | | | | + +---------+ + + + External Lab: Bilirubin, Total (11/08/2017) + +---------+ + + + | Component | Value | Ref Range | Performed | Pathologist | | | | | At | Signature | + +---------+ + + + | Bilirubin, | 2.2 (A) | 0 - 1.2 | | | | Total, | | | | | | External | | | | | + +---------+ + + + External Lab: Albumin (11/08/2017) + +---------+ + + + | Component | Value | Ref Range | Performed | Pathologist | | | | | At | Signature | + +---------+ + + + | Albumin, | 3.2 (A) | 3.5 - 5 | | | | External | | | | | + +---------+ + + + External Lab: Protein, Total (11/08/2017) + +-------+ + + + | Component | Value | Ref Range | Performed | Pathologist | | | | | At | Signature | + +-------+ + + + | Protein, | 6.8 | 6 - 8.3 | | | | Total, | | | | | | External | | | | | + +-------+ + + + External Lab: Calcium (11/08/2017) + +-------+ + + + | Component | Value | Ref Range | Performed | Pathologist | | | | | At | Signature | + +-------+ + + + | Calcium, | 9.6 | 8.5 - 10.3 | | | | External | | | | | + +-------+ + + + External Lab: Carbon Dioxide (11/08/2017) + +--------+ + + + | Component | Value | Ref Range | Performed | Pathologist | | | | | At | Signature | + +--------+ + + + | Carbon | 17 (A) | 19 - 31 | | | | Dioxide, | | | | | | External | | | | | + +--------+ + + + External Lab: Chloride (11/08/2017) + +-------+ + + + | Component | Value | Ref Range | Performed | Pathologist | | | | | At | Signature | + +-------+ + + + | Chloride, | 106 | 95 - 112 | | | | External | | | | | + +-------+ + + + External Lab: Potassium (11/08/2017) + +-------+ + + + | Component | Value | Ref Range | Performed | Pathologist | | | | | At | Signature | + +-------+ + + + | Potassium, | 3.6 | 3.6 - 5.1 | | | | External | | | | | + +-------+ + + + External Lab: Sodium (11/08/2017) + +-------+ + + + | Component | Value | Ref Range | Performed | Pathologist | | | | | At | Signature | + +-------+ + + + | Sodium, | 133 | 132 - 143 | | | | External | | | | | + +-------+ + + + External Lab: Urinalysis (11/08/2017) + + + + + + | Component | Value | Ref Range | Performed | Pathologist | | | | | At | Signature | + + + + + + | UA Blood, | Moderate | | | | | External | | | | | + + + + + + | UA Glucose, | Large | | | | | External | | | | | + + + + + + | UA Ketones, | Trace | | | | | External | | | | | + + + + + + | UA Ph, | 6 | | | | | External | | | | | + + + + + + | UA | >300 | | | | | Proteins, | | | | | | External | | | | | + + + + + + | UA RBC, | 15 (A) | 0 - 4 | | | | External | | | | | + + + + + + | UA Specific | 1.068 (A) | 1.005 - 1.03 | | | | Fortuna, | | | | | | External | | | | | + + + + + + | UA | Negative | | | | | Leukocyte | | | | | | Esterase, | | | | | | External | | | | | + + + + + + External Lab: CBC (11/08/2017) + + + + + + | Component | Value | Ref Range | Performed | Pathologist | | | | | At | Signature | + + + + + + | WBC, | 11.3 (A) | 4.5 - 11 | | | | External | | | | | + + + + + + | HGB, | 15.7 | 13.5 - 18 | | | | External | | | | | + + + + + + | HCT, | 45.4 | 41 - 50 | | | | External | | | | | + + + + + + | PLT, | 103 (A) | 140 - 440 | | | | External | | | | | + + + + + + | Neutrophils | 72.2 | 39 - 80 | | | | %, | | | | | | External | | | | | + + + + + + | Lymphocytes | 17.5 (A) | 24 - 44 | | | | %, | | | | | | External | | | | | + + + + + + | Monocytes | 8.5 | 0 - 12 | | | | %, External | | | | | + + + + + + | Eosinophils | 0.7 | 0 - 6 | | | | %, | | | | | | External | | | | | + + + + + + | RBC, | 4.91 | 4.3 - 5.7 | | | | External | | | | | + + + + + + | MCV, | 92 | 81 - 99 | | | | External | | | | | + + + + + + | RDW, | 14 | 10.5 - 15 | | | | External | | | | | + + + + + + External Lab: eGFR (11/08/2017) + +-------+ + + + | Component | Value | Ref Range | Performed | Pathologist | | | | | At | Signature | + +-------+ + + + | eGFR, | 81 | 60 - 99,999 | | | | External | | | | | + +-------+ + + + + + | Specimen | + + | Blood | + + External Lab: Creatinine (11/08/2017) + +-------+ + + + | Component | Value | Ref Range | Performed | Pathologist | | | | | At | Signature | + +-------+ + + + | Creatinine, | 0.94 | 0.7 - 1.25 | | | | External | | | | | + +-------+ + + + + + | Specimen | + + | Blood | + + documented in this encounter Visit Diagnoses Not on filedocumented in this encounter"
--- OUTSIDE RECORDS SUMMARY | ~2019-01-07 | XMS | Encounter Summary ---
Demographics + + + | Address | [address] | | | [place] [address] | + + + | Home Phone | | + + + | Preferred Language | Unknown | + + + | Marital Status | Single | + + + | Jehovah'S Witness Affiliation | NRP | + + + | Race | or | + + + | Ethnic Group | Not or | + + + Author + + + | Author | [facility] [employer] ([employer]) [facility] | + + + | Organization | [facility] [employer] [facility] [...] Providers + +------+ + | Care Engineering Lab Technician Name | Role | Phone | [...] | | | | PHY WWO | [place], [place] | [address] | | | | | CONTRAST (+ | [address] | Cherrie | | | | | [place]) | Phone: | Research | | | | | | [phone] | [place] | | | | | | Fax: | [place], [place] | | | | | | [phone] | [address] | | | | | | | Phone: | | | | | | | [phone] | | | | | | | Fax: | | | | | | | [phone] | +--------+--------+ + + + + Reason [...] Dx) | | | | PPV [address] [facility] | [address] [place], | | | | | [facility] | [place] [address] | | | | | Mailcode: L223A | [phone] | | | | | [place] | | | | | | [address] [place], [place] | | | | | | [address] | | | | | | [phone] | | | +--------+---------+ + + + [...] Note | + + | Service Account, [employer] Res In Interface - 09/27/2017 9:10 AM [...]
--- OUTSIDE RECORDS SUMMARY | ~2019-01-07 | XMS | Encounter Summary ---
Demographics + + + | Address | [address] | | | [place] [address] | + + + | Home Phone [...] | [facility] | + + + | Organization | [facility] [employer] [facility] [...] Team Providers + +------+ + | Care Transmission Superintendent Name | Role | Phone | + +------+ + | Shakir Monzon MD | PCP | | + +------+ + Encounter Details +--------+ + + + + | Date | Type | Department | Care Team | Description | +--------+ + + + + | 12/01/ | Telephone | [facility]ive [facility] | Bessy Solano, | | | 2016 | | [place] [address] [address] | PA-C [address] | | | | | [address] | [address] | | | | | Mailcode: OC8D | [place], [place] | | | | | [place] for [facility] | [address] | | | | | and Maxine, | [phone] | | | | | [address] | | | | | | [place], [place] | | | | | | [address] | | | | | | [phone] | | | +--------+ + + + [...]
--- OUTSIDE RECORDS SUMMARY | ~2019-01-07 | XMS | Encounter Summary ---
Demographics + + + | Address | [address] | | | [place] [address] | + + + | Home Phone [...] Author + + + | Author | [facility] ??? [facility] | + + + | Organization | [facility] [employer] [facility] | + [...] Team Providers + +------+ + | Care Metal Hanging Supervisor Name | Role | Phone | [...] + + | 01/05/ | Telephone | [facility] | Clinton Morillo, | Surgery Scheduling | | 2018 | | Center at [facility] [address] | MD [address] | | | | | [place] | [address] | | | | | Mailcode: Center | [place], [place] | | | | | [facility] and | [address] | | | | | [facility], [facility] | [phone] | | | | | [place], [place] | | | | | | [address] | | | | | | [phone] | | | +--------+ + + + [...]
--- OUTSIDE RECORDS SUMMARY | ~2019-01-07 | XMS | Encounter Summary ---
Demographics + + + | Address | [address] | | | [place] [address] | + + + | Home Phone [...] | Author | [facility] [employer] [facility] | + + + | Organization | [facility] [employer] [facility] | [...] Team Providers + +------+ + | Care Bed Operator Name | Role | Phone | [...] | | Stay [address] | [place] [address] | Gallbladder | | | | [address] | [phone] | perforation | | | | Mailcode: UHN65 | | | | | | Vivian Mazariegos | | | | | | [address] [place], [place] | | | | | | [address] | | | | | | [phone] | | | +--------+---------+ + + + [...] or walk. 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 No hx of COPD shortness of breath with exer tion no cough no stridor no wheezing no Recent Respiratory Infection Pt. Has no asthma no COPD Dx of sleep apnea Untreated Cardiovascular: Functional Capacity: Low - cyanosis, palpitations and syncope chest pain with exertion no CHF no hypertension CA D Sx medically managed past WA Last WA: < 1 year no valvular problems/murmurs no [...] RCA and PL-1 [facility] and "media" tab. Findings pertinent to [...] on beta ashlyn and followed by a milk processing worker. Estimated ASA class 4 ASSESSMENT and RECOMMENDATIONS: [...] or his SO Mary's mobile numbers (in BooknGo). Thank you for the opportunity to contribute to this patient's care. Mariama Navarro MD [facility] 4TH FLOOR DAY STAY [address] [facility] [address] I spent time (60 [...] | + +--------+ + + + | [place] [facility] | Routin | 02/16/2018 | [...] [facility] | [address] | [place] [address] | | | SERVICES, CORE | PARK [...] | | | LABORATORY | | | STATELESS | | | SERVICES, | | | [...] | + + + + + | [facility] | [address] | [place] [address] | | | SERVICES, CORE | PARK [...] 5 | | | | | | ng/cC5-IX-Kqogomjf 50 | | | | | | [...] | | | | | determined by [facility] | | | | | | Laboratories. See | | | | | | Compliance Statement B: | | | | | | [employer]/CSPerformed | | | | | | by [employer],[address] | | | | | | [facility],[place] | | | | | | [address] | | | | | | [phone].[facility]. | | | | | | [facility] centerJúnior MD, | | | | | | [...] REG UNIV | | | | and 3-UQ-cfidjmrk is | | PTH - INTFC | | | | ametabolite of cotinine. | | | | | | After cessation from | | | | | | long-term orheavy use of | | | | | | nicotine products, | | | | | | 3-VS-mvmhwmda may | | | | | | [...] [facility] | [address] | [place], [place] | | | UNIV PTH - INTFC | | [address] | | + + + + + [...] [facility] | [address] | [place] [address] | | | SERVICES, CORE | PARK [...] | + + + + + | [facility] | [address] | [place] [address] | | | SERVICES, | [address] [...] | + + + + + | [facility] | [address] | [place] [address] | | | SERVICES, | [address] [...]
--- OUTSIDE RECORDS SUMMARY | ~2019-01-07 | XMS | Encounter Summary ---
Demographics + + + | Address | [address] | | | [place] [address] | + + + | Home Phone | | + + + | Preferred Language | Unknown | + + + | Marital Status | Single | + + + | Latter Day Affiliation | Unknown | + + + | Race | Unknown | + + + | Ethnic Group | Unknown | + + + Author + + + | Author | [facility] | | | and [place] | + + + | Organization | [facility] | | [...] Team Providers + +------+ + | Care Copy Lathe Operator Name | Role | Phone | [...] + + | 01/05/ | Telephone | [facility] | Donell Hunt MD | Diagnostic Order | | 2018 | | GASTROENTEROLOGY | [address] | | | | | [address] [facility] | [place], [place] | | | | | [address] [place], [place] | [address] | | | | | [address] | [phone] | | | | | [phone] | | | +--------+ + + + [...] [place] | | | | | | [id number] | | | | | | | | +--------+---------+ + + + documented as of this encounter Visit Diagnoses Not on filedocumented in this encounter"
--- OUTSIDE RECORDS SUMMARY | ~2019-01-07 | XMS | Encounter Summary ---
Demographics + + + | Address | [address] | | | [place] [address] | + + + | Home Phone [...] + + | Author | [facility] [employer] [facility] | + + + | Organization | [facility] [employer] [facility] | + + + | Address | Unknown | + + + | Phone | Unavailable | + + + Support + + +---------+ + | Name | Relationship | Address | Phone | + + +---------+ + | Mary Medellin | ECON | Unknown | | + + +---------+ + Care Team Providers + +------+ + | Care Outpatient Case Manager Name | Role | Phone | [...] | +--------+ + + + + | 06/20/ | Abstract | [facility] | Clinic, Surgery | Referral To Surgery | | 2019 | | Center at [facility] [address] | | - General | | | | [address] | | | | | | Mailcode: [place] | | | | | | [facility] and | | | | | | [facility], [address] | | | | | | [place], [place] | | | | | | [address] | | | | | | [phone] | | | +--------+ + + + [...]
--- OUTSIDE RECORDS SUMMARY | ~2019-01-07 | XMS | Encounter Summary ---
Demographics + + + | Address | [address] | | | [place] [address] | + + + | Home Phone [...] + + + | Author | [facility] | + + + | Organization | [facility] [facility] [...] Team Providers + +------+ + | Care Bar Captain Name | Role | Phone | [...] (Labs | | 2017 | on | [place] [facility] [address] | WVM[place] Elena [address] | 01/28/17) | | | | [address] | [facility] | | | | | Mailcode: OC8D | [place], [place] | | | | | [facility] | [address] | | | | | and [address], | [phone] | | | | | [address] | | | | | | [place], [place] | | | | | | [address] | | | | | | [phone] | | | +--------+ + + + [...] + + | [facility] | | | [phone] | + +---------+ + + INR (01/28/2017) [...] + + | [facility] | | | [phone] | + +---------+ + + COMPLETE METABOLIC [...] + + | [facility] | | | [phone] | + +---------+ + + documented in this encounter Visit Diagnoses Not on filedocumented in this encounter"
--- OUTSIDE RECORDS SUMMARY | ~2019-01-07 | XMS | Encounter Summary ---
Demographics + + + | Address | [address] | | | [place] [address] | + + + | Home Phone | | + + + | Preferred Language | Unknown | + + + | Marital Status | Single | + + + | Druze Affiliation | Unknown | + + + | Race | Unknown | + + + | Ethnic Group | Unknown | + + + Author + + + | Author | [facility] | | | and [place] | + + + | Organization | [facility] | | | [...] Team Providers + +------+ + | Care Robot Operator Name | Role | Phone | [...] | | | | | | | [place] | | | | | | | ESOPHAGOGAST | | | | | | | RODUODENOSCO | | | | | | | PY TRANSORAL | | | | | | | DIAGNOSTIC | | | | | | | [place] EGD | | | | | | | TRANSORAL | | | | | | | BIOPSY | | | | | | | SINGLE/MULTI | | | | | | | PLE [place] | | | | | | | ANESTH,UGI | | | | | | | ENDOSCOPY | | | | | | | [place] EGD BAND | | | | | [...] | | | | | [address] | [place], [place] | | | | | [place], [place] | [address] | | | | | [address] | | | | | | [phone] | | | +--------+ + + + [...] | | | | | [address] [place] | | | | | | [id number] | | | | | | | [...]
--- OUTSIDE RECORDS SUMMARY | ~2019-01-07 | XMS | Encounter Summary ---
Demographics + + + | Address | [address] | | | [place] [address] | + + + | Home Phone [...] | Author | [facility] [employer] [facility] | + + + | Organization | [facility] [employer] [facility] | + + + | Address | Unknown | + + + | Phone | Unavailable | + + + Support + + +---------+ + | Name | Relationship | Address | Phone | + + +---------+ + | Mary Medellin | ECON | Unknown | | + + +---------+ + Care Team Providers + +------+ + | Care Thread Milling Machine Set Up Operator Name | Role [...] | | 2018 | anned | Services [address] | | | | | | [address] | | | | | | Mailcode: OP17A | | | | | | [facility] | | | | | | [place], [place] | | | | | | [address] | | | | | | [phone] | | | +--------+ + + + [...]
--- OUTSIDE RECORDS SUMMARY | ~2019-01-07 | XMS | Encounter Summary ---
Demographics + + + | Address | [address] | | | [place] [address] | + + + | Home Phone [...] + + | Author | [facility] | + + + | Organization | [facility] | + + + | Address | Unknown | + + + | Phone | Unavailable | + + + Support + + +---------+ + | Name | Relationship | Address | Phone | + + +---------+ + | Mary Medellin | ECON | Unknown | | + + +---------+ + Care Team Providers + +------+ + | Care Guest History Clerk Name | Role | Phone | [...] | | 2017 | | Center at [facility] [address] | | - General | | | | CELE Rivas | | | | | | Mailcode: [place] | | | | | | [facility] | | | | | | Healing, [address] | | | | | | [place], [place] | | | | | | [address] | | | | | | [phone] | | | +--------+ + + + [...]
--- OUTSIDE RECORDS SUMMARY | ~2019-01-07 | XMS | Encounter Summary ---
Demographics + + + | Address | [address] | | | [place] [address] | + + + | Home Phone | | + + + | Preferred Language | Unknown | + + + | Marital Status | Single | + + + | Synagogue Affiliation | Unknown | + + + | Race | Unknown | + + + | Ethnic Group | Unknown | + + + Author + + + | Author | [facility] | | | and [place] | + + + | Organization | [facility] | | [...] Team Providers + +------+ + | Care Blind Installer Name | Role | Phone | [...] Description | +--------+---------+ + + + | 04/27/ | Surgery | [facility] | Bret Sharma MD | PROCEDURE NOT | | 2018 | | MED CTR MP INTRA OP | [address], [place] | PERFORMED - ERCP | | | | [address] | [address] [place] | | | | | [place] | [id number] | | | | | [address] | | | | | | [phone] | | | +--------+---------+ + + + [...] might be different fro m the original. [place] HOSPITALIST TRANSFER SUMMARY Pt. Name/Age/: Bret Espinal Jr. 61 y.o. 1955 Date of [...] Surgical History: Procedure Laterality Date COLONOSCOPY 2012 [place] UPPER GASTROINTESTINAL ENDOSCOPY N/A 05/05/2016 Procedure: EGD; Surgeon: Donell Hunt MD; Location: [facility] MEDICAL PROCEDURE UNIT UPPER GASTROINTESTINAL ENDOSCOPY N/A 07/27/2016 Procedure: EGD; Surgeon: Donell Hunt MD; Location: [facility] MEDICAL PROCEDURE UNIT UPPER GASTROINTESTINAL ENDOSCOPY N/A 12/10/2016 Procedure: EGD; Surgeon: Donell Hunt MD; Location: [facility] MEDICAL PROCEDURE UNIT FAMILY HISTORY: family [...] 0348 Gram negative sepsis + BC in [place] results yesterday no help yet RN to check daily until final results Hepatic cirrhosis, unspecified hepatic cirrhosis type Chronic hepatitis C without hepatic coma (followed at [facility] treated 4 months ago with un [...] respiratory collapse suggesting fluid retention. Signature (dot yaddendum tdnorefesh nownorefresh) (dot yvent) (emili mitchellattjozef is attestation for malnutrition) Plan Cath today If Cath indicate not need intervention then can proceed with ERCP but if needs intervention might need to consider sending to [facility] due to higher risk Addendum (04/28/2017 12:49) Cardiac cath circumflex culprit lesion is tortuous and might be able to manage medically bu t if needs intervention would be rotoblation. I spoke with Dr Sharma and consensus is to sent to tertiary center. I called [facility] no ERCP available until Wednesday and I called [facility] t they have waiting list but will call me back.I cancelled the CT to look for varices since we are in process of arranging transfer. Addendum (04/28/2017 16:03) [facility] no ERCP Doc till Wednesday [place] no bed [facility] will take him (I [...] for input(s): IRON, TIBC, PCTSAT, FERRITIN, TSH, [id number], FOLATE in the last 168 hours. Inflammatory [...] ABG No results for input(s): PHART, PO2ART, KME0BGX, DWW0ARQ, BEART, W7KQPHRW in the last 168 h ours. No results for input(s): SPECSOURCE, PHPOCB, PCO2, PO2, HCO3, TCO2, BEART, KZTI5CRZ in the last 168 hours. Drug of [...] STONE. COMPARISON: Multiple priors. PROTOCOL: Coronal T2 dressing room porter, axial T2 dressing room porter, coronal 3D respiratory triggered, coronal T2 thin [...] Procedure Component Value Units Date/Time Culture, MRSA [[id number]] Collected: 04/27/17 0222 Order Status: Canceled Lab Status: No result Specimen: Respiratory from Nares Culture, MRSA [[id number]] Collected: 04/27/17 0151 Order Status: Completed Lab Status: Final result Updated: 04/28/17704 Specimen: Respiratory from Nares Culture Negative for MRSA by chromogenic agar method PROCEDURES AND CONSULTS: Cardiac Cath Dr Zachary Pratt PENDING RESULTS: DISPOSITION AND TRANSFER INSTRUCTIONS: Condition: Patient being transferred with condition improved NPO for now Going to [facility] to Dr Mely Quiroga MD [facility] [phone] Triage pager [phone] (this is a shared pager and is carried 07/09 by a Hospitalist) Personal iPhone Email [email or web address] Greater than 30 minutes were spent on discharge and coordination of post-hospital care. Electronically signed by: Paul Quiroga MD, 04/28/2017 16:08 [facility] (dot meytime meycritical meycontact) Reference. This is [...] this chart may have been created with PANOSOL recognition software. Occasi onal wrong-word or sound-alike [...] might be different fro m the original. [place] HOSPITALIST PROGRESS NOTE Patient: Bret Espinal Jr. : 1955: Age: 61 y.o. MedRec: [id number] PCP: Shakir Monzon DO Admission date: 04/26/2017 [...] for input(s): IRON, TIBC, PCTSAT, FERRITIN, TSH, WVDVNOCN40, FOLATE in the last 168 hours. Inflammatory [...] ABG No results for input(s): PHART, PO2ART, ZPN8DLP, WYI5RAM, BEART, Z4UBFKRR in the last 168 h ours. No results for input(s): SPECSOURCE, PHPOCB, PCO2, PO2, HCO3, TCO2, BEART, QOVM5PIJ in the last 168 hours. Drug of [...] dot micro, for reference below is dot [id number] URSR Microbiology Results (72 hrs) Procedure Component Value Units Date/Time Culture, MRSA [[id number]] Collected: 04/27/17 0151 Order Status: Completed Lab [...] ONE. COMPARISON: Multiple priors. PROTOCOL: Coronal T2 dressing room porter, axial T2 dressing room porter, coronal 3D res piratory triggered, coronal T2 [...] L/min (dot meyvent) Subjective CC Tfer from [place] for Chest and Abd pain with U/S [...] Gram negative sepsis + BC in [place] results yesterday no help yet RN to check daily until final results Hepatic cirrhosis, unspecified hepatic cirrhosis type Chronic hepatitis C without hepatic coma (followed at [facility] treated 4 months ago with un [...] (dot meyaddendum tdnorefesh nownorefresh) (dot yvcaity) (dot kimi is attestation for malnutrition) Plan Cath today If Cath indicate not need intervention then can proceed with ERCP but if needs intervention might need to consider sending to [facility] due to higher risk Addendum (04/28/2017 12:49) Cardiac cath circumflex culprit lesion is tortuous and might be able to manage medically bu t if needs intervention would be rotoblation. I spoke with Dr Sharma and consensus is to sent to tertiary center. I called [facility] no ERCP available until Wednesday and I called [facility] t they have waiting list but will call me back.I cancelled the CT to look for varices since we are in process of arranging transfer. Addendum (04/28/2017 16:03) [facility] no ERCP Doc till Wednesday [place] no bed [facility] will take him (I told patient and family) Dr Mely Alexander wanted extra Abx so I ordered Pharmacy to give one dose Cefepime In summary he had several days of Chest and Abd pain and [place] saw him in ER and later again [...] meycritical meysign) Paul Quiroga MD 04/28/2017 8:03 [facility] Reference. This is NOT part of the [...] this chart may have been created with [employer] voice recognition software. Occasi onal wrong-word or sound-alike substitutions may have occurred due to the inherent haas itations of voice recognition software. Please read the chart carefully and recognize, using context, where these substitutions have occurred Sharlene Escudero [facility] - 04/27/2017 8:05 PM PDT PHARMACY SERVICES: ADMISSION MEDICATION REVIEW Bret Espinal Jr. is a 61 y.o. [...] list or bottles X Pharmacy list names: [facility] X Outside Information Vaccines up to [...] Prior to Admission Sig: Patient taking differently MANAGER SCIENTIFIC as: Metformin 1000 mg tab 1 tab by mouth twice daily before meals Patient discontinued use of o wn accord about 2 weeks ago due to some reading he found on the internet. Best possible MANAGER SCIENTIFIC medication list after pharmacy review: @[email or web address]@ Medication review performed and electronically signed by Ana Laura Coelho, Center Sales And Service Associate 19:50 [facility]/27/2017 20:05 RTMeyerPaul MD - 04/27/2017 8:39 AM PDT [place] HOSPITALIST PROGRESS NOTE Patient: Bret Espinal Jr. : 1955: Age: 61 y.o. MedRec: [id number] PCP: Shakir Monzon DO Admission date: 04/26/2017 [...] at 04/27/17 0826 750 mg at 04/27/17 08 metoprolol tartrate (LOPRESSOR) injection 5 mg 5 [...] Flor Clement MD 40 mg at 04/27/17 08 rifAXIMin (XIFAXAN) tablet 550 mg 550 mg Oral BID Flor Clement MD 550 mg at 0 04/27/17 08 rosuvastatin (CRESTOR) tablet 10 mg 10 mg Oral Nightly Flor Clement MD 10 mg at 04/26/172049 sodium chloride 0.9% (NS) infusion Intravenous Continuous [...] for input(s): IRON, TIBC, PCTSAT, FERRITIN, TSH, GPJVUSZB07, FOLATE in the last 168 hours. Inflammatory [...] ABG No results for input(s): PHART, PO2ART, ZUB3UQW, UUF4PAI, BEART, B4JBOHVE in the last 168 h ours. No results for input(s): SPECSOURCE, PHPOCB, PCO2, PO2, HCO3, TCO2, BEART, NIKZ8WKK in the last 168 hours. Drug of [...] dot micro, for reference below is dot [id number] URSR Microbiology Results (72 hrs) Procedure Component Value Units Date/Time Culture, MRSA [[id number]] Collected: 04/27/17 0151 Order Status: Sent Lab Status: In process Updated: 04/27/17218 Specimen: Respiratory from Nares Radiology results (more choices using dot risresults) Mri Mrcp Liver Wo Contrast Result Date: 04/26/2017 MRI MRCP LIVER WO CONTRAST 04/26/2017 12:17 PM HISTORY:?BILIARY OBSTRUCTION, RULE OUT CBD ST ONE. COMPARISON: Multiple priors. 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 [...] meycritical meysign) Paul Quiroga MD 04/27/2017 8:40 [facility] Reference. This is NOT part of the [...] this chart may have been created with [employer] voice recognition software. Occasi onal wrong-word or [...] HAIDER | | | | | | [id number] | | | | | | | [...] ST. | [address] | [place], [place] | [phone] | | [facility] | | [address] | | | - LABORATORY | | | | + + + + + CV CARDIAC PROCEDURE (04/28/2017 11:11 AM PDT) + + | Specimen | + + | | + + + + + | Narrative | Performed At | + + + | Bright Triana, | [facility] | | 04/28/2017 11:36 CARDIAC CATHETERIZATION---Radial Approach | | | PATIENT NAME: Bret Espinal Jr.DATE OF : 1955MEDICAL | | | RECORD NUMBER: [id number] OF PROCEDURE: 04/28/2017 | | | | | | PRIMARY CARE PROVIDER: Shakir Monzon, | | | ETHELRIGABRIEL EDUCATIONAL THERAPY TEACHER: Bright Triana MD. PRE-PROCEDURE DIAGNOSIS: | | [...] | | | conclusions. Bright Triana MD [facility] | | | CenterDATE/TIME: 04/28/2017 11:273 11:27 | | |RECOMMENDATIONS: | | | [...] | | |Bright Triana MD | | |[facility] | | |DATE/TIME: 04/28/2017 11:27 | | [...] | | | | | g/dL | [facility] | | | | | [...] | MPV | 8.5 | fL | [facility] | | | [...] + | [facility] | [address] | [place] | [phone] | | [facility] | | [address] | | | - LABORATORY | | [...] 11 | 7 - 18 mg/dL | [facility] | | | | | | [facility] | | | | | | MEDICAL | | | | | | CENTER - | | | | | | LABORATORY | | + + + + + + | Creatinine | 0.91 | 0.60 - 1.30 | [facility] | | | | | mg/dL | [facility] | | | | | | MEDICAL | | | | | | CENTER - | | | | | | LABORATORY | | + + + + + + | eGFR if not | >60Comment: GLOMERULAR | >=60 | [facility] | | | | FILTRATION | mL/min/1.73m2 | [facility] | | | [place] | RATE,ESTIMATED | | MEDICAL | | | | mL/min/1.94p6Xomk than | | CENTER - | | [...] 7.7 (L) | 8.3 - 10.5 | [facility] | | | | | mg/dL | [facility] | | | | | | MEDICAL | | | | | | CENTER - | | | | | | LABORATORY | | + + + + + + | Albumin | 2.3 (L) | 3.2 - 5.0 g/dL | [facility] | | | | | | [facility] | | | | | | [...] | | Phosphatase | | | [facility] | | [...] [address] | [place] | [phone] | | [facility] | | [address] | | | - LABORATORY | | [...] | | | | | | [employer] | | | | | [...] GARCIA. | [address] | [place] | [phone] | | [facility] | | [address] | | | - LABORATORY | | [...] | | | | Reference | | [facility] | | | | Ranges:0.00-0.06 = | [...] | | | | | | [employer] | | | | | [...] [address] | [place] | [phone] | | [facility] | | [address] | | | - LABORATORY | | [...] [address] | [place] | [phone] | | [facility] | | [address] | | | - LABORATORY | | [...] [address] | [place] | [phone] | | [facility] | | [address] | | | - LABORATORY | | [...] | | | | | | [employer] | | | | | [...] [address] | [place] | [phone] | | [facility] | | [address] | | | - LABORATORY | | [...] Demographics Patient Name DIPESH | | | [facility] Room Number 454 JR. | | | Patient Number [id number] Date of Study | | | 04/27/2017 Visit Number [id number] Accession | | | [id number] Referring Physician LEATHA IVY Number | | | Date of 1955 Plant Senior Manager | | | Ted Blake Age 61 year(s) | | | Interpreting MONICA LUNA | | | Motor Vehicle Technician CHERYL ANDERSON, | | | | | | Gender Male Nurse | | | Stress Head Neck Surgeon | | | Procedure Type of Study [...] Volume: 84.98 ml | | | EF Ehdnwjzej92% Left Ventricle Diastolic | | | Dimension: [...] Volume: 84.98 ml | | | EF Qpgfkmxep51% | | | | | | Left [...] Report | | (TTE) Demographics Patient Name [facility] Room Number 454 | | JR. Patient Number [id number] Date of Study 04/27/2017 Visit Number | | [id number] Referring Physician LEATHA IVY | | Number Date of 1955 Plant Senior Manager Ted Lozano Age | | 61 year(s) Interpreting MONICA LUNA | | Motor Vehicle Technician CHERYL ANDERSON, | | Gender Male Nurse [...] [place] Volume: | | 84.98 ml EF Diskdxxnt30% Left Ventricle | | Diastolic Dimension: 5.83 [...] [place] Volume: 84.98 ml | | EF Mssnbdntk41% | | | | Left Ventricle | [...] [address] | [place] | [phone] | | [facility] | | [address] | | | - LABORATORY | | [...] GRICEL | | | | | | [facility] [...] + | [facility] | [address] | [place] | [phone] | | [facility] | | [address] | | | - LABORATORY | | [...] mL/min/1.73m2 | [facility] | | | [place] | RATE,ESTIMATED | | MEDICAL | | | | mL/min/1.56n9Lrvj than | | CENTER - | | [...] - 2.0 | [facility] | | | kristelin Ratio | | | [facility] | [...] [address] | [place] | [phone] | | [facility] | | [address] | | | - LABORATORY | | [...] | | | | | | [employer] | | | | | [...] + | [facility] | [address] | [place] | [phone] | | [facility] | | [address] | | | - LABORATORY | | [...] [address] | [place] | [phone] | | [facility] | | [address] | | | - LABORATORY | | [...] | | | | ROXANNA RUEDA MD ([id number]) | | | | | | on [...] | chromogenic agar method | | [facility] | | | [...] + | [facility] | [address] | [place] | [phone] | | [facility] | | [address] | | | - LABORATORY | | | | + + + + + Troponin I (04/27/2017 1:26 AM PDT) + + + + + + | Component | Value | Ref Range | Performed | Pathologist | | | | | At | Signature | + + + + + + | Troponin I | 0.08 (H)Comment: | <0.06 ng/mL | [facility] | | | | Reference | | [facility] | | | | Ranges:0.00-0.06 = [...] | | | | | | [employer] | | | | | [...] [address] | [place] | [phone] | | [facility] | | [address] | | | - LABORATORY | | | | + + + + + Magnesium (04/27/2017 1:23 AM PDT) + +---------+ + + + | Component | Value | Ref Range | Performed | Pathologist | | | | | At | Signature | + +---------+ + + + | Magnesium | 1.7 (L) | 1.8 - 2.5 mg/dL | [facility] | | | | | [...] ST. | [address] | [place] | [phone] | | [facility] | | [address] | | | - LABORATORY | | [...] | | | | | g/dL | . [facility] | | | | [...] | | Neutrophils | | K/uL | [facility] | | | | | | MEDICAL | | | | | | CENTER - | | | | | | LABORATORY | | + + + + + + | Absolute | 0.80 | 0.60 - 3.20 | [facility] | | | Lymphocytes | | K/uL | [facility] | | | | [...] [address] | [place] | [phone] | | [facility] | | [address] | | | - LABORATORY | | [...] 8 | 7 - 18 mg/dL | [facility] | | | | | | [facility] | | | | | | MEDICAL | | | | | | CENTER - | | | | | | LABORATORY | | + + + + + + | Creatinine | 0.92 | 0.60 - 1.30 | [facility] | | | | | mg/dL | [facility] | | | | | | MEDICAL | | | | | | CENTER - | | | | | | LABORATORY | | + + + + + + | eGFR if not | >60Comment: GLOMERULAR | >=60 | [facility] | | | | FILTRATION | mL/min/1.73m2 | [facility] | | | [place] | RATE,ESTIMATED | | MEDICAL | | | | mL/min/1.62f2Targ than | | CENTER - | | [...] Total | an appended report. | | [facility] | | | | These results [...] | ine Ratio | | | [facility] | [...] [address] | [place] | [phone] | | [facility] | | [address] | | | - LABORATORY | | [...] + | [facility] | [address] | [place] | [phone] | | [facility] | | [address] | | | - LABORATORY | | [...] | | Time | | seconds | [facility] | | | | | | MEDICAL | | | | | | CENTER - | | | | | | LABORATORY | | + + + + + + | INR | 1.15 (H)Comment: Usual | 0.90 - 1.10 | [facility] | | | | Oral Anticoagulation | | [facility] | | | | Range: 2.0 [...] [address] | [place] | [phone] | | [facility] | | [address] | | | - LABORATORY | | [...] + | [facility] | [address] | [place] | [phone] | | [facility] | | [address] | | | - LABORATORY | | [...] ST. | [address] | [place], [place] | [phone] | | [facility] | | [address] | | | - LABORATORY | | | | + + + + + CBC with Differential (04/26/2017 12:48 PM PDT) + + + + + + | Component | Value | Ref Range | Performed | Pathologist | | | | | At | Signature | + + + + + + | WBC | 9.9 | 4.0 - 11.0 K/uL | [facility] [...] + | [facility] | [address] | [place] | [phone] | | [facility] | | [address] | | | - LABORATORY | | [...] | 0.90 | 0.60 - 1.30 | [facility] | | | | | mg/dL | [facility] | | | | | | MEDICAL | | | | | | CENTER - | | | | | | LABORATORY | | + + + + + + | eGFR if not | >60Comment: GLOMERULAR | >=60 | [facility] | | | | FILTRATION | mL/min/1.73m2 | [facility] | | | [place] | RATE,ESTIMATED | | MEDICAL | | | | mL/min/1.64e0Oqxd than | | CENTER - | | [...] + | [facility] | [address] | [place] | [phone] | | [facility] | | [address] | | | - LABORATORY | | [...] + | [facility] | [address] | [place] | [phone] | | [facility] | | [address] | | | - LABORATORY | | [...] priors. | | | PROTOCOL: Coronal T2 dressing room porter, axial T2 dressing room porter, coronal 3D respiratory | | | triggered, [...] STONE.COMPARISON: Multiple | | priors.PROTOCOL: Coronal T2 dressing room porter, axial T2 dressing room porter, coronal 3D respiratory | | triggered,coronal T2 [...] | | | | ROXANNA RUEDA MD ([id number]) | | | | | | on [...] + | Diagnosis | + + | Acute cholecystitis | + + documented in this encounter [...] | | | | | NPO, Daytime 2451-4557 Use NIGHT | | | | | | | DOSE for doses scheduled: | | | | | | | HS, 3AM, Nighttime 1753-5504, | | | | | | + [...] | | | | +-------+ +---------+---+ + + +---+ | | | + +---+ [...] | | | | | dose on 04/26/17 at 1120 | | | | [...]
--- OUTSIDE RECORDS SUMMARY | ~2019-01-07 | XMS | Encounter Summary ---
Demographics + + + | Address | [address] | | | [place] [address] | + + + | Home Phone | | + + + | Preferred Language | Unknown | + + + | Marital Status | Single | + + + | Methodist Affiliation | Unknown | + + + | Race | Unknown | + + + | Ethnic Group | Unknown | + + + Author + + + | Author | [facility] | | | and [place] | + + + | Organization | [facility] | | | [...] Team Providers + +------+ + | Care Office Assistant Name | Role | Phone | [...] | | | | | (NSTEMI) | [facility] | [address] | | | | myocardial | [address] | [place] | | | | | infarction | [place], [place] | [place], [place] | | | | | (HCC) | [address] | [address] | | | | | Coronary | Phone: | Phone: | | | | | Artery | [phone] | [phone] | | | | | Disease | Fax: | Fax: | | | | | Procedures | [phone] | [phone] | | | | | Cardiac Eval | | | +--------+--------+ + + + + Encounter Details +--------+---------+ + + + | Date | Type | Department | Care Team | Description | +--------+---------+ + + + | 03/29/ | Office | [facility] | Clinton Morillo, | NSTEMI (non-ST | | 2019 | Visit | MED CTR CARDIAC | [address] [facility] | elevated myocardial | | | | REHABILITATION [address] | infarction) (HCC) | | | | [address] [place] | [place], [place] | (Primary Dx) | | | | [place] [address] | [address] | | | | | [phone] | [phone] | | | | | | | [...] Pruett RN - 03/29/2018 10:00 AM PST [facility] CARDIAC REHABILITATION [address] [place] [address] Cardiac Rehab Evaluation Date: 03/29/2018 Patient Information [...] In early April 2017 he presented at [place] [facility] with chest pain and abdominal discomfort [...] Healthy Dietary Education Date: 03/29/18 -Referral to Neurosurgery Spine Physician: Date: -DVD: Healthy Eating For Life Date: [...] Monzon who is resigning Interventions -Referral to [employer] Date: Education Points listed below- Date Completed: [...] | | | | | [place], [place] | | | | | | [id number] | | | | | | | | +--------+---------+ + + + documented as of this encounter Visit Diagnoses + + | Diagnosis | + + | NSTEMI (non-ST elevated myocardial infarction) (HCC) - Primary Acute myocardial | | infarction, subendocardial infarction, episode of care unspecified | + + documented in this encounter
--- OUTSIDE RECORDS SUMMARY | ~2019-01-07 | XMS | Encounter Summary ---
Demographics + + + | Address | [address] | | | [place] [address] | + + + | Home Phone [...] + | Author | [facility] [employer] [facility] | + + + | Organization | [facility] [facility] | + + + | Address | Unknown | + + + | Phone | Unavailable | + + + Support + + +---------+ + | Name | Relationship | Address | Phone | + + +---------+ + | Mary Medellin | ECON | Unknown | | + + +---------+ + Care Team Providers + +------+ + | Care Rush Seater Name | Role | Phone | + [...] | | | | | Procedures | [place], [place] | [place] for | | | | | CONSULT TO | [address] | Health and | | | | | GASTROENTERO | Phone: | Healing, | | | | | LOGY | [phone] | [address] | | | | | | Fax: | [place], [place] | | | | | | [phone] | [address] | | | | | | | Phone: | | | | | | | [phone] | | | | | | | Fax: | | | | | | | [phone] | +--------+--------+ + + + + Reason [...] | | | | Mailcode: Center | [place], [place] | | | | | for Health and | [address] | | | | | [place] [address] | [phone] | | | | | [place], [place] | | | | | | [address] | | | | | | [phone] | | | +--------+---------+ + + + [...] and spouse acknowledged understanding. Doretha Blake MD [facility] General Surgery documented in this [...]
--- OUTSIDE RECORDS SUMMARY | ~2019-01-07 | XMS | Encounter Summary ---
Demographics + + + | Address | [address] | | | [place] [address] | + + + | Home Phone | | + + + | Preferred Language | Unknown | + + + | Marital Status | Single | + + + | Muslim Affiliation | Unknown | + + + | Race | Unknown | + + + | Ethnic Group | Unknown | + + + Author + + + | Author | [facility] | | | and [place] | + + + | Organization | [facility] | | [...] Team Providers + +------+ + | Care Transportation Aide Name | Role | Phone | + +------+ + | Shakir Monzon DO | PCP | | + +------+ + Reason for Visit +--------+ + | Reason | Comments | +--------+ + | Other | Procedure CLX. | +--------+ + Encounter Details +--------+ + + + + | Date | Type | Department | Care Team | Description | +--------+ + + + + | 12/06/ | Telephone | [facility] | Kady Cortez | Other (Procedure | | 2019 | | CARDIOLOGY BRANDYN Angeles, Cultural Anthropology Professor | CLXSyeda ) | | | | [address] | | | | | | [place] | | | | | | [address] | | | | | | [phone] | | | +--------+ + + + [...] [place] | | | | | | [address] | | | | | | | | +--------+---------+ + + + documented as of this encounter Visit Diagnoses Not on filedocumented in this encounter"
--- OUTSIDE RECORDS SUMMARY | ~2019-01-07 | XMS | Encounter Summary ---
Demographics + + + | Address | [address] | | | [place] [address] | + + + | Home Phone [...] + + | Author | [facility] [employer] [facility] | + + + | Organization | [facility] [employer] [facility] [...] Team Providers + +------+ + | Care Whitewasher Name | Role | Phone | + [...] | | | | Mailcode: Center | [place], [place] | | | | | [facility] and | [address] | | | | | [facility] [address] | [phone] | | | | | [place], [place] | | | | | | [address] | | | | | | [phone] | | | +--------+ + + + [...]
--- OUTSIDE RECORDS SUMMARY | ~2019-01-07 | XMS | Encounter Summary ---
Demographics + + + | Address | [address] | | | [place] [address] | + + + | Home Phone [...] Providers + +------+ + | Care Sales Development Executive Name | Role | Phone | [...] [place] | | | | | | [address] | | | | | | [phone] | | | +--------+ + + + [...] | | | | | [place] | | | | | | [address] | | | | | | | | +--------+---------+ + + + documented as of this encounter Visit Diagnoses Not on filedocumented in this encounter"
--- OUTSIDE RECORDS SUMMARY | ~2019-01-07 | XMS | Encounter Summary ---
Demographics + + + | Address | [address] | | | [place] [address] | + + + | Home Phone | | + + + | Preferred Language | Unknown | + + + | Marital Status | Single | + + + | Amish Affiliation | Unknown | + + + | Race | Unknown | + + + | Ethnic Group | Unknown | + + + Author + + + | Author | [facility] | | | and [place] | + + + | Organization | [facility] | | | and [...] Team Providers + +------+ + | Care Mine Engineering Supervisor Name | Role | Phone | [...] + + | 09/14/ | Telephone | [facility] | Donell Hunt MD | Diagnostic Order | | 2017 | | GASTROENTEROLOGY | [address] | | | | | [address] [facility] | [place], [place] | | | | | [address] [place] | [address] | | | | | [address] | [phone] | | | | | [phone] | | | +--------+ + + + [...] [place] | | | | | | [address] | | | | | | | | +--------+---------+ + + + documented as of this encounter Visit Diagnoses Not on filedocumented in this encounter"
--- OUTSIDE RECORDS SUMMARY | ~2019-01-07 | XMS | Encounter Summary ---
Demographics + + + | Address | [address] | | | [place] [address] | + + + | Home Phone [...] Team Providers + +------+ + | Care Toy Painter Name | Role | Phone | + [...] | [facility] | MD [address]ie [address] | | | | | IMAGING | [place] | | | | | [phone] | [place] [address] | | +--------+ + + + + [...] [place] | | | | | | [address] | | | | | | | [...]
--- OUTSIDE RECORDS SUMMARY | ~2019-01-07 | XMS | Encounter Summary ---
Demographics + + + | Address | [address] | | | [place] [address] | + + + | Home Phone [...] + + + | Author | [facility] [employer] [facility] | + + + | Organization | [facility] [employer] [facility] [...] Team Providers + +------+ + | Care Explosives Worker Name | Role | Phone | [...] | | | | Mailcode: Center | [place], [place] | | | | | [facility] and | [address] | | | | | [place] [address] | [phone] | | | | | [place], [place] | | | | | | [address] | | | | | | [phone] | | | +--------+ + + + [...]
--- OUTSIDE RECORDS SUMMARY | ~2019-01-07 | XMS | Encounter Summary ---
Demographics + + + | Address | [address] | | | [place] [address] | + + + | Home Phone [...] + | Author | [facility] | + + + | Organization | [facility] | + + + | Address | Unknown | + + + | Phone | Unavailable | + + + Support + + +---------+ + | Name | Relationship | Address | Phone | + + +---------+ + | Mary Medellin | ECON | Unknown | | + + +---------+ + Care Team Providers + +------+ + | Care Consultant Dietitian Name | Role | Phone | + [...] | | 2016 | | Center at [facility] [address] | Gastroenterology | Gastroenterology | | | | [address] | | | | | | Mailcode: OC8D | | | | | | [facility] | | | | | | and Healing, | | | | | | [address] | | | | | | [place], [place] | | | | | | [address] | | | | | | [phone] | | | +--------+ + + + [...]
--- OUTSIDE RECORDS SUMMARY | ~2019-01-07 | XMS | Encounter Summary ---
Demographics + + + | Address | [address] | | | [place] [address] | + + + | Home Phone [...] Author + + + | Author | [facility] | + + + | Organization | [facility] [employer] [facility] [...] Team Providers + +------+ + | Care Drag Seiner Name | Role | Phone | + [...] | | | | | artery | [place] | [facility] | | | | | disease) | Health | Rd [place], | | | | | Procedures | Center | [place] | | | | | CONSULT TO | [address] | [address] | | | | | CARDIOLOGY | [place] | Phone: | | | | | [place] | Way | [phone] | | | | | PATIENT | [place], | Fax: | | | | | [place] | [place] [address] | [phone] | | | | | EST PATIENT | Phone: | | | | | | [place] | [phone] | | | | | | | Fax: | | | | | | | [phone] | | + +--------+ + + + [...] disease, angina | | | | [address] | [facility] [address] | presence | | | | Mailcode: GAD182 | [place], [place] | unspecified, | | | | [facility] | [address] | unspecified vessel | | | | [address], | [phone] | or lesion type, | | | | [place] [address] | | unspecified whether | | | | [phone] | | chenega or | | | | | | transplanted heart | | | | | | (Primary Dx); | | | | | | Coronary artery | | | | | | disease involving | | | | | | chenega coronary | | | | | | artery of chenega | | | | | | heart [...] per Dr. Gan's note. Bill Iglesias DO Egyptologist Clinical entry level sales representative/ Division of Cardiovascular Medicine Michelle Velez MD - 05/25/2017 4:00 PM PDT [facility] Consult Name: Mr. Bret Espinal [...] Espinal presented initially in early April to [place] [facility] with an episode of chest daisy [...] RCA. -will request angiogram be pushed from [facility] in [place] -continue metoprolol -continue losartan -continue rosuvastatin (unable [...] review. ADDEND: Angiogram requested and uploaded into [email or web address]. Case reviewed with Dr. Nazario, who recommended [...] s. He does not have a local monitor technician and would prefer to followup at [facility] for his cardia c care. I stated I would be happy to see him back at any time. He will continue with regular followups with his primary care provider. Thank you for the interesting consultation. This patient was discussed with my attending , Dr. Iglesias, who agrees with my assessment and plan unless otherwise noted. Michelle Gan MD Cardiovascular Medicine Fellow [facility] Cardiovascular [facility] [place] Pager [phone] documented in this enc ounter Plan of [...] whether | | | | | | chenega or | | | | | | [...] [place] | [address] | [place], [place] | | | CARDIOLOGY | [address] | [address] | | + + + + + documented in this encounter Visit Diagnoses + + | Diagnosis | + + | Coronary artery disease, angina presence unspecified, unspecified vessel or lesion | | type, unspecified whether chenega or transplanted heart - Primary | + + | 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
--- OUTSIDE RECORDS SUMMARY | ~2019-01-07 | XMS | Encounter Summary ---
Demographics + + + | Address | [address] | | | [place] [address] | + + + | Home Phone | | + + + | Preferred Language | Unknown | + + + | Marital Status | Single | + + + | Pentecostal Affiliation | Unknown | + + + | Race | Unknown | + + + | Ethnic Group | Unknown | + + + Author + + + | Author | [facility] | | | and [place] | + + + | Organization | [facility] | | [...] Team Providers + +------+ + | Care Box Estimator Name | Role | Phone | [...] | | | | | [place] [facility] | | | | | [...] + + + + | 07/27/ | Hospital | [facility] | Donell Hunt MD | Esophageal varices | | 2017 | Encounter | MED CTR MP INTRA OP | [address] | determined by | | | | [address] | [place], [place] | endoscopy ([facility]) | | | | [place] | [address] | | | | | [address] | [phone] | | | | | [phone] | | | +--------+ + + + [...] + documented in this encounter Discharge Instructions Jodi Zeng RN - 07/24/2016Patient Discharge Instructions after an [...] the physician who did your procedure at [phone] if you have any questions or experience any of the following: ? Increasing abdominal pain, nausea, or vomiting. ? Chills and fever over 101F. ? New abdominal swelling or bloating. ? Signs of rectal bleeding (black or red stool). If you cannot get a hold of your physician, then call the [facility] [phone] . If necessary, report to the Emergency Department at [facility]. Quit smoking: If you smoke or have [...] 2019 | Visit | | [address] | | | | | | [place] | | | | | | [address] | | | | | | | [...] 07/27/2016 | [facility] | | 8:52 AMMRN: [id number] #: [id number] of : | | | 6Admit Type: AmbulatoryAge: 60Room: [facility]Gender: MaleNote | | | Status: FinalizedAttending MD: Donell Hunt , [facility]cedure: | | | Upper GI endoscopyIndications: For therapy of | | | esophageal varicesProviders: Donell Hunt MD, | | | Shirley Martinez RN, Mariama Monterroso | | | Thom, Head Of Commission Department, Manuel Lindo MD | | | (Anesthesia Staff)Referring MD: Shakir Monzon (Referring | | | )Medicines: Monitored Anesthesia CareComplications: | | | No [...] the | | | anesthesiologist and the results technician in the pre-procedure area in the [...] | In: 9:04:15 AMScope Out: 9:13:[address] [facility] | | | [place], [address] [place] [address] | | | instructions were provided to [...] |Scope Out: 9:13:44 AM | | | [facility], [address] [place] [address] | | | [address] | | + + -+ + +---------+ + + | Performing | Address | City/State/Zipcode | Phone Number | | Organization | | | | + +---------+ + + | [facility] | | | | + +---------+ + + documented in this encounter Visit Diagnoses + + | Diagnosis | + + | Esophageal varices determined [...] | mL/hr | | | CONTINUOUS, Starting 07/27/16 | | AM PDT | | | | | at 0845, Pre-op | | | | | | + +---------+ +--------+-------+------+ + +---+ | | | + +---+ | ondansetron (ZOFRAN ODT) | | | disintegrating tablet 4 mg 4 mg, | | | Oral, EVERY 6 HOURS PRN, Nausea, | | | Vomiting, Starting 07/27/16 | | | at 0921, First line agent, | | | Post-op/Phase II | | + +---+ | | | + +---+ | ondansetron (ZOFRAN) injection | | | 4 mg 4 mg, Intravenous, EVERY 6 | | | HOURS PRN, Nausea, Vomiting, | | | Starting 07/27/16 at 0921, | | | First line agent. Use PO option | | | unless NPO status or unable to | | | tolerate., Post-op/Phase II | | + +---+ | | | + +---+ documented in this encounter
--- OUTSIDE RECORDS SUMMARY | ~2019-01-07 | XMS | Encounter Summary ---
Demographics + + + | Address | [address] | | | [place] [address] | + + + | Home Phone [...] + | Author | [facility] | + + + | Organization | [facility] [employer] [facility] | + + + | Address | Unknown | + + + | Phone | Unavailable | + + + Support + + +---------+ + | Name | Relationship | Address | Phone | + + +---------+ + | Mary Medellin | ECON | Unknown | | + + +---------+ + Care Team Providers + +------+ + | Care Check Cashier Name | Role | Phone | + [...] Lab Order | | 2017 | | [facility] [address] | [address] | | | | | [address] | [address] | | | | | Mailcode: OC8D | [place], [place] | | | | | [facility] | [address] | | | | | and [place], | [phone] | | | | | [address] | | | | | | [place], [place] | | | | | | [address] | | | | | | [phone] | | | +--------+ + + + [...]
--- OUTSIDE RECORDS SUMMARY | ~2019-01-07 | XMS | Encounter Summary ---
Demographics + + + | Address | [address] | | | [place] [address] | + + + | Home Phone [...] + + + | Author | [facility] | | | and [place] | + + + | Organization | [facility] | | [...] Team Providers + +------+ + | Care Water Softener Servicer And Installer Name | Role | Phone | [...] | Telephone | [facility] [place] | [facility], | Appointment | | 2017 | | GASTROENTEROLOGY | [address] | | | | | [address] [place] | [place], [address] | | | | | [address] [place], [place] | [place], [place] | | | | | [address] | [address] | | | | | [phone] | | | +--------+ + + + [...] [place] | | | | | | [address] | | | | | | | | +--------+---------+ + + + documented as of this encounter Visit Diagnoses Not on filedocumented in this encounter"
--- OUTSIDE RECORDS SUMMARY | ~2019-01-07 | XMS | Encounter Summary ---
Demographics + + + | Address | [address] | | | [place] [address] | + + + | Home Phone [...] [facility] | + + + | Organization | [facility] [employer] [facility] | + + + | Address | Unknown | + + + | Phone | Unavailable | + + + Support + + +---------+ + | Name | Relationship | Address | Phone | + + +---------+ + | Mary Medellin | ECON | Unknown | | + + +---------+ + Care Team Providers + +------+ + | Care Steel Handler Name | Role | Phone | + [...] Test Results | | 2017 | | [place] [address] | PA-C [address] | | | | | [address] | [address] | | | | | Mailcode: OC8D | [place], [place] | | | | | [facility] | [address] | | | | | and Healing, | [phone] | | | | | [address] | | | | | | [place], [place] | | | | | | [address] | | | | | | [phone] | | | +--------+ + + + [...]
--- OUTSIDE RECORDS SUMMARY | ~2019-01-07 | XMS | Encounter Summary ---
Demographics + + + | Address | [address] | | | [place] [address] | + + + | Home Phone | | + + + | Preferred Language | Unknown | + + + | Marital Status | Single | + + + | Jainism Affiliation | Unknown | + + + | Race | Unknown | + + + | Ethnic Group | Unknown | + + + Author + + + | Author | [facility] | | | and [place] | + + + | Organization | [facility] | | | [...] Team Providers + +------+ + | Care Dyer Helper Name | Role | Phone | + +------+ + | Shakir Monzon DO | PCP | | + +------+ + Reason for Referral Diagnostic/Screening (Routine) +--------+ + + + + + | Status | Reason | Specialty | Diagnoses / | Referred By | Referred To | | | | | Procedures | Contact | Contact | +--------+ + + + + + | Closed | Specialty | Radiology | Diagnoses | Tay Hunt | | | Services | | Cirrhosis | MD Donell | Ultrasound | | | Required | | of liver | [address] | [address] | | | | | without | [address] | [place], | | | | | ascites, | [facility], [place] | [place] | | | | | unspecified | [address] | [address] | | | | | hepatic | Phone: | Phone: | | | | | cirrhosis | [phone] | [phone] | | | | | type (HCC) | Fax: | Fax: | | | | | Procedures | [phone] | [phone] | | | | | US, | | | | | | | ABDOM,B-SCAN | | | | | | | &/OR REAL | | | | | | | TIME,COMPLET | | | | | | | E | | | +--------+ + + + + + Reason for Visit + + + | Reason | Comments | + + + | Follow-up | | + + + Encounter Details +--------+---------+ + + + | Date | Type | Department | Care Team | Description | +--------+---------+ + + + | 09/07/ | Office | [facility] | Donell Hunt MD | Cirrhosis of liver | | 2017 | Visit | GASTROENTEROLOGY | [address] | without ascites, | | | | [address] | [place], [place] | unspecified hepatic | | | | [address] [place], [place] | [address] | cirrhosis type (HCC) | | | | [address] | [phone] | (Primary Dx); | | | | [phone] | | Esophageal varices | | | | | | determined by | | | | | | endoscopy (HCC); | | | | | | Chronic hepatitis C | | | | | | without hepatic coma | | | | | | (HCC) | +--------+---------+ + + + Social [...] + + + | Blood Pressure | 120/64 | 09/07/2016 10:17 AM | | | | | PDT | | + + + + + | Pulse | 90 | 09/07/2016 10:17 AM | | | | | PDT | | + + + + + | Temperature | 37 C (98.6 F) | 09/07/2016 10:17 AM | | | | | PDT | | + + + + + | Respiratory Rate | 16 | 09/07/2016 10:17 AM | | | | | PDT | | + + + + + | Oxygen Saturation | 96% | 09/07/2016 10:17 AM | | | | | PDT | | + + + + + | Inhaled Oxygen | - | - | | | Concentration | | | | + + + + + | Weight | 99.8 kg (220 lb) | 09/07/2016 10:17 AM | | | | | PDT | | + + + + + | Height | - | - | | + + + + + | Body Mass Index | 31.57 | 07/27/2016 8:32 AM | | | | | PDT | | + + + + + documented in this encounter Progress Notes Brandi Serrano RN - 09/07/2016 10:30 AM PDTScheduled for egd with prop on 12/[address] Hunt; advised to half dose diabetes medications night before and do not take in A.M . before procedure, he agreed and verbalized understanding; CBC and CMP ordered and patient will have drawn at [facility] today; abdominal ultrasound ordered and Dr. Hunt requested it be d one here, referral placed and will call to schedule once approved, ideally this is scheduled before his 09/16 [facility] appointment; will send request to for all records to be sent to [facility] for . appointment/consultation for HCV treatment. documented in this encounter Plan of Treatment +--------+---------+ + + + | Date | Type | Specialty | Care Team | Description | +--------+---------+ + + + | 04/06/ | Office | Cardiology | Lakisha Kahn DO | | | 2019 | Visit | | [address] | | | | | | [place] | | | | | | [id number] | | | | | | | | +--------+---------+ + + + + + +--------+ + + | Name | Type | Priori | Associated Diagnoses | Order Schedule | | | | ty | | | + + +--------+ + + | Referral ABDOMINAL | Outpatient | Routin | Cirrhosis of liver | Ordered: 09/07/2016 | | US | Referral | e | without ascites, | | | | | | unspecified hepatic | | | | | | cirrhosis type (HCC) | | + + +--------+ + + documented as of this encounter Results US Abdomen Limited (09/23/2016 10:00 AM PDT) + + | Specimen | + + | | + + + + + | Narrative | Performed At | + + + | TECHNIQUE: Limited right upper quadrant B-mode ultrasound with | [facility] | | color and duplex doppler CLINICAL INFORMATION: decompenstaed | [facility] | | cirrhosis; rule out HCC and ascites. COMPARISON: 11/27/2015 and | [facility] | | MRI the 04/06/2016. FINDINGS: [...] | + + + + + | [facility] | [address] | [place] | [phone] | | [facility] | | [address] | | | - IMAGING | | | | + + + + + Comprehensive Metabolic Panel (09/07/2016 11:41 AM PDT) + + + + + + | Component | Value | Ref Range | Performed | Pathologist | | | | | At | Signature | + + + + + + | Na | 135 (L) | 136 - 149 | [facility] [...] + | Anion Gap | 8 | 3 - 16 mmol/L | [facility] | | | | | | [facility] | | | | | | MEDICAL | | | | | | CENTER - | | | | | | LABORATORY | | + + + + + + | Glucose | 235 (H) | 70 - 109 mg/dL | [facility] | | | | | | [facility] | | | | | | MEDICAL | | | | | | CENTER - | | | | | | LABORATORY | | + + + + + + | BUN | 9 | 7 - 18 mg/dL | [facility] | | | | | | [facility] | | | | | | MEDICAL | | | | | | CENTER - | | | | | | LABORATORY | | + + + + + + | Creatinine | 0.95 | 0.60 - 1.30 | [facility] | | | | | mg/dL | [facility] | | | | | | MEDICAL | | | | | | CENTER - | | | | | | LABORATORY | | + + + + + + | eGFR if not | >60Comment: GLOMERULAR | >=60 | [facility] | | | | FILTRATION | mL/min/1.73m2 | [facility] | | | TANZANIAN | RATE,ESTIMATED | | MEDICAL | | | | mL/min/1.67i2Zttj than | | CENTER - | | [...] + + + + | Calcium | 8.6 | 8.3 - 10.5 | [facility] | | | | | mg/dL | [facility] | | | | | | MEDICAL | | | | | | CENTER - | | | | | | LABORATORY | | + + + + + + | Albumin | 3.0 (L) | 3.2 - 5.0 g/dL | [facility] | | | | | | [facility] | | | | | | MEDICAL | | | | | | CENTER - | | | | | | LABORATORY | | + + + + + + | Bilirubin | 1.8 (H) | 0.1 - 1.5 mg/dL | [facility] | | | Total | | | [facility] | | | | | | MEDICAL | | | | | | CENTER - | | | | | | LABORATORY | | + + + + + + | Total | 7.1 | 6.0 - 7.8 g/dL | [facility] | | | Protein | | | [facility] | | | | | | MEDICAL | | | | | | CENTER - | | | | | | LABORATORY | | + + + + + + | AST | 132 (H) | 10 - 42 U/L | [facility] | | | | | | [facility] | | | | | | MEDICAL | | | | | | CENTER - | | | | | | LABORATORY | | + + + + + + | ALT | 112 (H) | 6 - 45 U/L | [facility] | | | | | | [facility] | | | | | | MEDICAL | | | | | | CENTER - | | | | | | LABORATORY | | + + + + + + | Alkaline | 83 | 40 - 110 U/L | [facility] | | | Phosphatase | | | [facility] | | | | | | MEDICAL | | | | | | CENTER - | | | | | | LABORATORY | | + + + + + + | Globulin | 4.1 (H) | 2.1 - 3.8 g/dL | [...] + + + + | BUN/Creatin | 9.5 | | [facility] | | | ine [...] [address] | [place] | [phone] | | [facility] | | [address] | | | - LABORATORY | | | | + + + + + CBC with Differential (09/07/2016 11:41 AM PDT) + + + + + + | Component | Value | Ref Range | Performed | Pathologist | | | | | At | Signature | + + + + + + | WBC | 6.6 | 4.0 - 11.0 K/uL | [facility] | | | | | | [facility] | | | | | | MEDICAL | | | | | | CENTER - | | | | | | LABORATORY | | + + + + + + | RBC | 4.26 (L) | 4.30 - 5.70 | [facility] | | | | | M/uL | [facility] | | | | | | MEDICAL | | | | | | CENTER - | | | | | | LABORATORY | | + + + + + + | Hemoglobin | 14.5 | 13.5 - 18.0 | [facility] | | | | | g/dL | [facility] | | | | | | MEDICAL | | | | | | CENTER - | | | | | | LABORATORY | | + + + + + + | Hematocrit | 41.0 | 40.0 - 51.0 % | [facility] [...] + + + + | MCH | 34.0 | 28.0 - 35.0 pg | [facility] | | | | | | [facility] | | | | | | MEDICAL | | | | | | CENTER - | | | | | | LABORATORY | | + + + + + + | MCHC | 35.3 | 32.0 - 36.0 | [facility] | | | | | g/dL | [facility] | | | | | | MEDICAL | | | | | | CENTER - | | | | | | LABORATORY | | + + + + + + | RDW-CV | 13.9 | <15.0 % | [facility] | | | | | | [facility] | | | | | | MEDICAL | | | | | | CENTER - | | | | | | LABORATORY | | + + + + + + | Platelet | 79 (L) | 140 - 440 K/uL | [facility] | | | Count | | | [facility] | | | | | | MEDICAL | | | | | | CENTER - | | | | | | LABORATORY | | + + + + + + | MPV | 10.2 | fL | [facility] | | | | | | [facility] | | | | | | MEDICAL | | | | | | CENTER - | | | | | | LABORATORY | | + + + + + + | % | 60.4 | 45.0 - 82.0 % | [facility] | | | Neutrophils | | | [facility] | | | | | | MEDICAL | | | | | | CENTER - | | | | | | LABORATORY | | + + + + + + | % | 27.6 | 20.0 - 45.0 % | [facility] | | | Lymphocytes | | | [facility] | | | | | | MEDICAL | | | | | | CENTER - | | | | | | LABORATORY | | + + + + + + | % Monocytes | 7.3 | 4.0 - 12.0 % | [facility] | | | | | | [facility] | | | | | | MEDICAL | | | | | | CENTER - | | | | | | LABORATORY | | + + + + + + | % | 3.1 | 0.0 - 5.0 % | [facility] | | | Eosinophils | | | [facility] | | | | | | MEDICAL | | | | | | CENTER - | | | | | | LABORATORY | | + + + + + + | % Basophils | 1.6 (H) | 0.0 - 1.0 % | [facility] | | | | | | [facility] | | | | | | MEDICAL | | | | | | CENTER - | | | | | | LABORATORY | | + + + + + + | Absolute | 4.00 | 1.80 - 8.50 | [facility] | | | Neutrophils | | K/uL | [facility] | | | | | | MEDICAL | | | | | | CENTER - | | | | | | LABORATORY | | + + + + + + | Absolute | 1.80 | 0.60 - 3.20 | [facility] | | | Lymphocytes | | K/uL | [facility] | | | | | | MEDICAL | | | | | | CENTER - | | | | | | LABORATORY | | + + + + + + | Absolute | 0.50 | 0.00 - 1.00 | [facility] | | | Monocytes | | K/uL | [facility] | | | | | | MEDICAL | | | | | | CENTER - | | | | | | LABORATORY | | + + + + + + | Absolute | 0.20 | 0.00 - 0.40 | [facility] | [address] | [place] | [phone] | | [facility] | | [address] | | | - LABORATORY | | | | + + + + + documented in this encounter Visit Diagnoses + + | Diagnosis | + + | Cirrhosis of liver without ascites, unspecified hepatic cirrhosis type (HCC) - Primary | + + | Esophageal varices determined by endoscopy (HCC) | + + | Chronic hepatitis C without hepatic coma (HCC) | + + documented in this encounter"
--- OUTSIDE RECORDS SUMMARY | ~2019-01-07 | XMS | Encounter Summary ---
Demographics + + + | Address | [address] | | | [place] [address] | + + + | Home Phone [...] + + | Author | [facility] | + + + | Organization | [facility] [employer] [facility] | + + + | Address | Unknown | + + + | Phone | Unavailable | + + + Support + + +---------+ + | Name | Relationship | Address | Phone | + + +---------+ + | Mary Medellin | ECON | Unknown | | + + +---------+ + Care Team Providers + +------+ + | Care Skip Load Driver Name | Role | Phone | + +------+ + | Shakir Monzon MD | PCP | | + +------+ + Encounter Details +--------+ + + + + | Date | Type | Department | Care Team | Description | +--------+ + + + + | 12/01/ | Telephone | [facility] | Bessy Solano, | | | 2016 | | [place] [address] | PA-C [address] | | | | | [place] | [address] | | | | | Mailcode: OC8D | [place], [place] | | | | | [place] [facility] | [address] | | | | | and [place], | [phone] | | | | | [address] | | | | | | [place], [place] | | | | | | [address] | | | | | | [phone] | | | +--------+ + + + [...]
--- OUTSIDE RECORDS SUMMARY | ~2019-01-07 | XMS | Encounter Summary ---
Demographics + + + | Address | [address] | | | [place] [address] | + + + | Home Phone [...] Author + + + | Author | [facility] [employer] [facility] | + + + | Organization | [facility] [facility] | + + + | Address | Unknown | + + + | Phone | Unavailable | + + + Support + + +---------+ + | Name | Relationship | Address | Phone | + + +---------+ + | Mary Medellin | ECON | Unknown | | + + +---------+ + Care Team Providers + +------+ + | Care Case Packer And Sealer Name | Role | Phone | + [...] | | | | | presence | [place], [place] | | | | | | unspecified, | [address] | | | | | | unspecified | Phone: | | | | | | vessel or | [phone] | | | | | | lesion type, | Fax: | | | | | | unspecified | [phone] | | | | | | whether | | | | | | | [place] or | | | | | | [...] + + + + | 03/04/ | Store Merchandiser | [facility] | Clinton Morillo, | 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
--- OUTSIDE RECORDS SUMMARY | ~2019-01-07 | XMS | Encounter Summary ---
Demographics + + + | Address | [address] | | | [place] [address] | + + + | Home Phone [...] + | Author | [facility] [facility] | + + + | Organization | [facility] [employer] [facility] | + [...] Team Providers + +------+ + | Care Slot Router Name | Role | Phone | + [...] | | | | [address] [place] | [facility] | | | | | Mailcode: Center | [place], [place] | | | | | [facility] and | [address] | | | | | [facility] 2 | [phone] | | | | | [place], [place] | | | | | | [address] | | | | | | [phone] | | | +--------+ + + + [...]
--- OUTSIDE RECORDS SUMMARY | ~2019-01-07 | XMS | Encounter Summary ---
Demographics + + + | Address | [address] | | | [place] [address] | + + + | Home Phone [...] Author + + + | Author | [facility] | + + + | Organization | [facility] [employer] [facility] | + + + | Address | Unknown | + + + | Phone | Unavailable | + + + Support + + +---------+ + | Name | Relationship | Address | Phone | + + +---------+ + | Mary Medellin | ECON | Unknown | | + + +---------+ + Care Team Providers + +------+ + | Care Resin Maker Name | Role | Phone | [...] | | 2018 | | Center at [facility] [address] | PA-C [address] | Review | | | | [place] | [facility] | | | | | Mailcode: OC8D | [place], [place] | | | | | [facility] | [address] | | | | | and Healing, | [phone] | | | | | [address] | | | | | | [place], [place] | | | | | | [address] | | | | | | [phone] | | | +--------+ + + + [...]
--- OUTSIDE RECORDS SUMMARY | ~2019-01-07 | XMS | Encounter Summary ---
Demographics + + + | Address | [address] | | | [place] [address] | + + + | Home Phone | | + + + | Preferred Language | Unknown | + + + | Marital Status | Single | + + + | Bahai Affiliation | Unknown | + + + | Race | Unknown | + + + | Ethnic Group | Unknown | + + + Author + + + | Author | [facility] | | | and [place] | + + + | Organization | [facility] | | | [...] Team Providers + +------+ + | Care Deployment Engineer Name | Role | Phone | + +------+ + | Mookie Castro PA-C | PCP | | + +------+ + Reason for Visit + + + | Reason | Comments | + + + | Phone Management | | + + + Encounter Details +--------+ + + + + | Date | Type | Department | Care Team | Description | +--------+ + + + + | 03/17/ | Telephone | [facility] [place] | [facility], | Phone Management | | 2016 | | GASTROENTEROLOGY | [place] [address] | | | | | [address] [place] | [place], [address] | | | | | [address] [place], [place] | [place], [place] | | | | | [address] | [address] | | | | | [phone] | | | +--------+ + + + [...] [place] | | | | | | [address] | | | | | | | | +--------+---------+ + + + documented as of this encounter Visit Diagnoses Not on filedocumented in this encounter"
--- OUTSIDE RECORDS SUMMARY | ~2019-01-07 | XMS | Encounter Summary ---
Demographics + + + | Address | [address] | | | [place] [address] | + + + | Home Phone [...] | Author | [facility] | + + + | Organization | [facility] [facility] | + + + | Address | Unknown | + + + | Phone | Unavailable | + + + Support + + +---------+ + | Name | Relationship | Address | Phone | + + +---------+ + | Mary Medellin | ECON | Unknown | | + + +---------+ + Care Team Providers + +------+ + | Care Buggy Ladle Tender Name | Role | Phone | [...] | | | | [address] | [facility] | | | | | Mailcode: Center | [place], [place] | | | | | for Health and | [address] | | | | | Healing, [address] | [phone] | | | | | [place], [place] | | | | | | [address] | | | | | | [phone] | | | +--------+ + + + [...]
--- OUTSIDE RECORDS SUMMARY | ~2019-01-07 | XMS | Encounter Summary ---
Demographics + + + | Address | [address] | | | [place] [address] | + + + | Home Phone [...] Team Providers + +------+ + | Care Concrete Puddler Name | Role | Phone | + [...] | | | [address] [place] | [place] [address] | | | | | [address] | | | | | | [phone] | | | +--------+ + + + [...] [place] | | | | | | [address] | | | | | | | [...] 1.005 - 1.03 | | | | [place], | | | | | | External [...]
--- OUTSIDE RECORDS SUMMARY | ~2019-01-07 | XMS | Encounter Summary ---
Demographics + + + | Address | [address] | | | [place] [address] | + + + | Home Phone | | + + + | Preferred Language | Unknown | + + + | Marital Status | Single | + + + | Yarsanism Affiliation | Unknown | + + + | Race | Unknown | + + + | Ethnic Group | Unknown | + + + Author + + + | Author | [facility] | | | and [place] | + + + | Organization | [facility] | | | [...] Team Providers + +------+ + | Care Upholsterer Helper Name | Role | Phone | + +------+ + | Mookie Castro PA-C | PCP | | + +------+ + Encounter Details +--------+ + + + + | Date | Type | Department | Care Team | Description | +--------+ + + + + | 09/10/ | Abstract | [facility] [place] | [facility], | | | 2015 | | GASTROENTEROLOGY | [place] [address] | | | | | [address] [place] | [place], [place] [address] | | | | | [address] [place] | [place] | | | | | [address] | [address] | | | | | [phone] | | | +--------+ + + + [...] | | | | | [place] | | | | | | [address] | | | | | | | [...] | TRANSFERRIN | 286.0 | mg/dL | [place] | | | | | | ST. [...] [address] | [place] | [phone] | | [facility] | | [address] | | | - LABORATORY | | [...] | [address] | [place] | [phone] | | [facility] | | [address] | | | - LABORATORY | | | | + + + + + documented in this encounter Visit Diagnoses Not on filedocumented in this encounter"
--- OUTSIDE RECORDS SUMMARY | ~2019-01-07 | XMS | Encounter Summary ---
Demographics + + + | Address | [address] | | | [place] [address] | + + + | Home Phone [...] Author | [facility] [employer] [facility] | + + + | Organization | [facility] [employer] [facility] | + + + | Address | Unknown | + + + | Phone | Unavailable | + + + Support + + +---------+ + | Name | Relationship | Address | Phone | + + +---------+ + | Mary Medellin | ECON | Unknown | | + + +---------+ + Care Team Providers + +------+ + | Care Duty Officer Name | Role | Phone | [...] | | | | | unspecified | [address] | and Healing, | | | | | whether | Phone: | [address] | | | | | ascites | [phone] | [place], [place] | | | | | present | Fax: | [phone] | | | | | (HCC) | [phone] | Phone: | | | | | Procedures | | [phone] | | | | | CONSULT TO | | Fax: | | | | | HEPATOLOGY | | [phone] | +--------+--------+ + + + + Encounter Details +--------+---------+ + + + | Date | Type | Department | Care Team | Description | +--------+---------+ + + + | 11/03/ | Office | [facility] | Marc Solano, | Cirrhosis of liver | | 2018 | Visit | Center at [facility] [address] | PA-C [address] | without ascites, | | | | [address] | [address] | unspecified hepatic | | | | Mailcode: OC8D | [place], [place] | cirrhosis type (HCC) | | | | [place] for [facility] | [address] | (Primary Dx); | | | | and Healing, | [phone] | Gallbladder | | | | [address] | | perforation | | | | [place], [place] | | | | | | [address] | | | | | | [phone] | | | +--------+---------+ + + + [...] Note reviewed. Paul Rice MD, MS, JACK processor solid propellant Director of Clinical Hepatology [facility] Division of Gastroenterology/Hepatology Marc Villar PA-Craig - [...] and is currently bein g evaluated by [facility]// Ilia's team for cholecystectomy He [...] ~2015 per patient 5. 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 MARC SOLANO PA-C [facility] 6TH FLOOR [address] Mailcode: Ch6[address] [place] [address] documented in this encounter Plan [...]
--- OUTSIDE RECORDS SUMMARY | ~2019-01-07 | XMS | Encounter Summary ---
Demographics + + + | Address | [address] | | | [place] [address] | + + + | Home Phone [...] Team Providers + +------+ + | Care Neuroscientist Name | Role | Phone | + +------+ + | Shakir Monzon DO | PCP | | + +------+ + Encounter Details +--------+ + + + + | Date | Type | Department | Care Team | Description | +--------+ + + + + | 10/27/ | Orders Only | [facility] | Shakir Monzon, | | | 2017 | | CONVERSION [address] | [place] [address] | | | | | [address] | [address] | | | | | [place] | [place] [address] | | | | | [address] | [phone] | | | | | [phone] | | | +--------+ + + + [...] | | | | | [place] | | | | | | [address] | | | | | | | | +--------+---------+ + + + documented as of this encounter Procedures + +--------+ + + + | Procedure Name | Priori | Date/Time | Associated Diagnosis | Comments | | | ty | | | | + +--------+ + + + | ECHO INTERPRETATION | Routin | 10/27/2017 | | Results for this | | OF OUTSIDE FILMS | e | 3:11 PM | | procedure are in the | | | | PDT | | results section. | + +--------+ + + + documented in this encounter Results ECHO Interpretation of Outside Films (10/27/2017 3:11 PM PDT) + + | Specimen | + + | | + + + + + | Impressions | Performed At | + + + | 1. The left ventricle is normal in size, wall thickness and systolic | | | function EF 60-65%. 2. The right ventricle is normal in size and | | | function. 3. Mild degenerative changes in the aortic and mitral | | | vavles. 4. There is no pericardial effusion. | | + + + + + + | Narrative | Performed At | + + + | Patient Name: Bret Espinal Date of : 1955 | | | Performing Physician: Ayana Felton | | | | | | INDICATIONS CAD [...] Left ventricular wall thickness is normal. Left Ventricle: | | | The diastolic filling pattern is normal for the age of the patient. | | | Right Ventricle: The right ventricle is normal in size and function. | | | Left Atrium: The left atrial size is normal. Right Atrium: The right | | | atrium is mildly enlarged. Aortic Valve: The aortic valve is mildly | | | calcified. Aortic Valve: There is no evidence [...] cm Ao sinus: 4.[address] junct: | | | 3.68 cm IVC: 1.67 cm LA Diam: 4.11 cm EDV(Teich): | | | 111.71 ml IVSd: 0.94 cm LVIDd: 4.87 cm LVPWd: 0.85 cm | | | LVOT Area: 3.94 cm2 LVOT Diam: 2.24 cm %FS: 34.03 % | | | EF(Teich): 62.81 % ESV(Teich): 41.54 ml LVIDs: 3.21 cm | | | SV(Teich): 70.17 ml RVIDd: 3.23 cm LVEF MOD A2C: 60.75 % | | | SV MOD A2C: 50.17 ml LVEF MOD A4C: 58.46 % SV MOD A4C: | | | 72.19 ml EF Biplane: 58.38 % LVEDV MOD BP: 101.90 ml LVESV | | | MOD BP: 42.40 ml LVEDV MOD A2C: 82.58 ml LVLd A2C: 8.32 cm | | | LVEDV MOD A4C: 123.47 ml LVLd A4C: 8.50 cm LVESV MOD A2C: | | | 32.40 ml LVLs A2C: 7.20 cm LVESV MOD A4C: 51.28 ml LVLs A4C: | | | 6.63 cm LAESV(A-L): 59.93 ml LAESV Index (A-L): 28.14 ml/m2 | | | LAAs A2C: 18.26 cm2 LAESV A-L A2C: 53.81 ml LALs A2C: | | | 5.26 cm LAAs A4C: 20.28 cm2 LAESV A-L A4C: 66.58 ml LALs A4C: | | | 5.24 cm RAAs: 20.48 cm2 RAESV A-L: 70.40 ml RAESV MOD: | | | 63.59 ml RALs: 5.06 cm TAPSE: 2.02 cm AV maxP.52 | | | mmHg AV meanP.83 mmHg AV Vmax: 1.83 m/s AV Vmean: 1.21 | | | m/s AV VTI: 36.82 cm NIYA Vmax: 2.09 cm2 NIYA (VTI): 2.36 | | | cm2 AVAI (Vmax): 0.00 cm2/m2 AVAI (VTI): 0.00 cm2/m2 LVOT | | | maxP.80 mmHg LVOT meanP.09 mmHg LVSI Dopp: 40.90 | | | ml/m2 LVSV Dopp: 87.12 ml LVOT Vmax: 0.97 m/s LVOT Vmean: | | | 0.68 m/s LVOT VTI: 22.11 cm MV A Jordan: 0.80 m/s MV Dec Pierce: | | | 2.88 m/s2 MV DecT: 315.34 ms MV E Jordan: 0.90 m/s MV E/A | | | Ratio: 1.12 MV PHT: 91.45 ms MVA By PHT: 2.40 cm2 Septal | | | e': 0.08 m/s Septal E/e': 11.35 RAP: 5 mmHg RVSP: 18.14 | | | mmHg TR maxP.14 mmHg TR Vmax: 1.81 m/s Provider Relations Advocate: | | | DBS Authenticated by: Ayana Yadavrochester Report Date/Time: 10-28-2017 | | | 12:48:42 | | + + + + + | Procedure Note | + + | Harjit, Rad Conversion - 10/06/2018 4:15 PM PDT Patient Name: Kenyon Espinal of | | : 1955 Performing Physician: Ayana | | [facility] INDICATIONS------ | | -----CAD CONCLUSIONS 1. The left ventricle is normal in size, wall thickness | | and systolic function EF 60-65%.2. The right ventricle is normal in size and function.3. | | Mild degenerative changes in the aortic and mitral vavles.4. There is no pericardial | | effusion. FINDINGS--------ECG rhythm: Sinus rhythm.Study: A 2-dimensional transthoracic | | echocardiogram with m-mode, spectral and color flow Doppler was perfomed.Study: This was | | a technically adequate study.Left Ventricle: Overall left ventricular systolic function | | is normal with, an EF between 60 - 65 %.Left Ventricle: The left ventricle cavity size | | is normal.Left Ventricle: Left ventricular wall thickness is normal.Left Ventricle: The | | diastolic filling pattern is normal for the age of the patient.Right Ventricle: The | | right ventricle is normal in size and function.Left Atrium: The left atrial size is | | normal.Right Atrium: The right atrium is mildly enlarged.Aortic Valve: The aortic valve | | is mildly calcified.Aortic Valve: There is no evidence of aortic regurgitation.Aortic | | Valve: There is mild aortic stenosis present.Aortic Valve: The aortic valve appears to | | be trileaflet.Aortic Valve: Aortic valve is mildly thickened.Mitral Valve: There is | | trace mitral regurgitation.Mitral Valve: Mild mitral annular calcification | | present.Tricuspid Valve: The tricuspid valve appears structurally normal.Tricuspid | | Valve: Trace tricuspid regurgitation present.Tricuspid Valve: There is no evidence of | | pulmonary hypertension.Tricuspid Valve: The right ventricular systolic pressure | | (pulmonary artery systolic pressure), as measured by Doppler, is 18.15mmHg.Pulmonic | | Valve: Pulmonic valve appears structurally normal.Pulmonic Valve: Trace pulmonic | | regurgitation.Pulmonic Valve: Mild degenerative changes in the aortic and mitral | | vavles.Pericardium: There is no pericardial effusion.Pericardium: No pleural effusion | | seen.IVC/Hepatic Veins: The inferior vena cava is normal in size and collapses > 50 % | | with sniff, indicating normal central venous pressures.Aorta: The aortic root is | | dilated, limited to the sinuses of valsalva measuring up to 43 mm. | | MEASUREMENTS Ao asc: 3.51 cmAo sinus: 4.[address] junct: 3.68 cmIVC: | | 1.67 cmLA Diam: 4.11 cmEDV(Teich): 111.71 mlIVSd: 0.94 cmLVIDd: 4.87 cmLVPWd: | | 0.85 cmLVOT Area: 3.94 [id number] Diam: 2.24 cm%FS: 34.03 %EF(Teich): 62.81 | | %ESV(Teich): 41.54 mlLVIDs: 3.21 cmSV(Teich): 70.17 mlRVIDd: 3.23 cmLVEF MOD | | A2C: 60.75 %SV MOD A2C: 50.17 mlLVEF [...] mlLAESV Index (A-L): 28.14 ml/m2LAAs A2C: 18.26 [id number] A-L A2C: 53.81 | | mlLALs A2C: 5.26 cmLAAs A4C: 20.28 [id number] A-L A4C: 66.58 mlLALs A4C: 5.24 | | cmRAAs: 20.48 [id number] A-L: 70.40 mlRAESV MOD: 63.59 mlRALs: 5.06 cmTAPSE: | | 2.02 cmAV maxP.52 mmHgAV meanP.83 mmHgAV Vmax: 1.83 m/Viv Vmean: 1.21 | | m/Viv VTI: 36.82 cmAVA Vmax: 2.09 cm2AVA (VTI): 2.36 aw7CFLN (Vmax): 0.00 | | cm2/m2AVAI (VTI): 0.00 cm2/m2LVOT maxP.80 mmHgLVOT meanP.09 mmHgLVSI Dopp: | | 40.90 ml/m2LVSV Dopp: 87.12 mlLVOT Vmax: 0.97 m/sLVOT Vmean: 0.68 m/sLVOT VTI: | | 22.11 cmMV A Jordan: 0.80 m/sMV Dec Pierce: 2.88 m/s2MV DecT: 315.34 msMV E Jordan: | | 0.90 m/sMV E/A Ratio: 1.12MV PHT: 91.45 msMVA By PHT: 2.40 wg2Ljgvrn e': 0.08 | | m/sSeptal E/e': 11.35RAP: 5 mmHgRVSP: 18.14 mmHgTR maxP.14 mmHgTR Vmax: | | 1.81 m/s Provider Relations Advocate: DBSAuthenticated by: Ayana [facility] Date/Time: 10-28-2017 | | 12:48:42 IMPRESSION: 1. The left ventricle is normal in size, wall thickness and | | systolic function EF 60-65%.2. The right ventricle [...] A Jordan: 0.80 m/s | |MV Dec Pierce: 2.88 m/s2 | |MV DecT: 315.34 ms | |MV E Jordan: 0.90 m/s | |MV E/A Ratio: 1.12 | |MV PHT: 91.45 ms | |MVA By PHT: 2.40 cm2 | |Septal e': 0.08 m/s | |Septal E/e': 11.35 | |RAP: 5 mmHg | |RVSP: 18.14 mmHg | |TR maxP.14 mmHg | |TR Vmax: 1.81 m/s | | | |Provider Relations Advocate: DBS | |Authenticated by: Ayana Felton | |Report Date/Time: 10-28-2017 12:48:42 | | | |IMPRESSION: | |1. The left ventricle is normal in size, wall thickness and systolic function EF 60-65%. | |2. The right ventricle is normal in size and function. | |3. Mild degenerative changes in the aortic and mitral vavles. | |4. There is no pericardial effusion. | + + documented in this encounter Visit Diagnoses Not on filedocumented in this encounter"
--- OUTSIDE RECORDS SUMMARY | ~2019-01-07 | XMS | Encounter Summary ---
Demographics + + + | Address | [address] | | | [place] [address] | + + + | Home Phone [...] | Author | [facility] [employer] [facility] | + + + | Organization | [facility] [employer] [facility] [...] Providers + +------+ + | Care Imaging Services Director Name | Role | Phone | [...] | | | | Mailcode: Center | [place], [place] | | | | | [facility] and | [address] | | | | | [facility] 2 | [phone] | | | | | [place], [place] | | | | | | [address] | | | | | | [phone] | | | +--------+ + + + [...]
--- OUTSIDE RECORDS SUMMARY | ~2019-01-07 | XMS | Encounter Summary ---
Demographics + + + | Address | [address] | | | [place] [address] | + + + | Home Phone | | + + + | Preferred Language | Unknown | + + + | Marital Status | Single | + + + | Gnosticism Affiliation | Unknown | + + + | Race | Unknown | + + + | Ethnic Group | Unknown | + + + Author + + + | Author | [facility] | | | and [place] | + + + | Organization | [facility] | | [...] Providers + +------+ + | Care Software Systems Engineer Name | Role | Phone | + +------+ + | Shakir Monzon DO | PCP | | + +------+ + Encounter Details +--------+ + + + + | Date | Type | Department | Care Team | Description | +--------+ + + + + | 11/09/ | Episode | [facility] | Brandi Serrano, | | | 2016 | Changes | GASTROENTEROLOGY | RN | | | | | [address] [place] | | | | | | [address] [place] | | | | | | [address] | | | | | | [phone] | | | +--------+ + + + [...] | | | | | [place] | | | | | | [address] | | | | | | | | +--------+---------+ + + + documented as of this encounter Visit Diagnoses Not on filedocumented in this encounter"
--- OUTSIDE RECORDS SUMMARY | ~2019-01-07 | XMS | Encounter Summary ---
Demographics + + + | Address | [address] | | | [place] [address] | + + + | Home Phone [...] | Author | [facility] | + + + | Organization | [facility] [employer] [facility] | + + + | Address | Unknown | + + + | Phone | Unavailable | + + + Support + + +---------+ + | Name | Relationship | Address | Phone | + + +---------+ + | Mary Medellin | ECON | Unknown | | + + +---------+ + Care Team Providers + +------+ + | Care Oncology Physician Name | Role | Phone | + +------+ + | Shakir Monzon MD | PCP | | + +------+ + Encounter Details +--------+------+ + + + | Date | Type | Department | Care Team | Description | +--------+------+ + + + | 10/13/ | Lab | Laboratory at [facility] | | Cirrhosis of liver | | 2018 | | [address] | | without ascites, | | | | [place], [place] | | unspecified hepatic | | | | [address] | | cirrhosis type (HCC) | | | | [phone] | | | +--------+------+ + + + [...] [facility] | [address] | [place] [address] | | | SERVICES, CORE | PARK [...] | + + + + + | [facility] | [address] | [place] [address] | | | SERVICES, CORE | PARK [...] | + + + + + | [facility] | [address] | [place] [address] | | | SERVICES, CORE | [address] [...] | | | LABORATORY | | | [place] | | | SERVICES, | | | [...] AST CMNT | No Hemo | | [facility] | | | | | | LABORATORY [...] | + + + + + | [facility] | [address] | [place] [address] | | | SERVICES, CORE | [address] | | | + + + + + documented in this encounter Visit Diagnoses + + | Diagnosis | + + | Cirrhosis of liver without ascites, unspecified hepatic cirrhosis type (HCC) | + + documented in this encounter"
--- OUTSIDE RECORDS SUMMARY | ~2019-01-07 | XMS | Encounter Summary ---
Demographics + + + | Address | [address] | | | [place] [address] | + + + | Home Phone [...] + + | Author | [facility] [employer] [facility] | + + + | Organization | [facility] [employer] [facility] | + + + | Address | Unknown | + + + | Phone | Unavailable | + + + Support + + +---------+ + | Name | Relationship | Address | Phone | + + +---------+ + | Mary Medellin | ECON | Unknown | | + + +---------+ + Care Team Providers + +------+ + | Care Melt Room Operator Name | Role | Phone | + +------+ + | Shakir Monzon MD | PCP | | + +------+ + Encounter Details +--------+ + + + + | Date | Type | Department | Care Team | Description | +--------+ + + + + | 06/10/ | Document-Sc | Health Information | Unknown . | | | 2018 | anned | Services [address] | | | | | | [address] | | | | | | Mailcode: OP17A | | | | | | [facility] | | | | | | [place], [place] | | | | | | [address] | | | | | | [phone] | | | +--------+ + + + [...]
--- OUTSIDE RECORDS SUMMARY | ~2019-01-07 | XMS | Encounter Summary ---
Demographics + + + | Address | [address] | | | [place] [address] | + + + | Home Phone [...] Team Providers + +------+ + | Care Contract Analyst Name | Role | Phone | [...] + | 09/29/ | Telephone | [facility] | Donell Hunt MD | Procedure | | 2016 | | GASTROENTEROLOGY | [address] [facility] | | | | | [address] [facility] | [place], [place] | | | | | [address] [place] | [address] | | | | | [address] | [phone] | | | | | [phone] | | | +--------+ + + + [...] [place] | | | | | | [address] | | | | | | | | +--------+---------+ + + + documented as of this encounter Visit Diagnoses Not on filedocumented in this encounter"
--- OUTSIDE RECORDS SUMMARY | ~2019-01-07 | XMS | Encounter Summary ---
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[employer]ATING [address] | [place], | | | | | hepatic | [place], [place] | [place] [address] | | | | | cirrhosis | [address] [place] | Phone: | | | | | type (HCC) | [place], [place] | [phone] | | | | | Thrombocytop | [address] | Fax: | | | | | enia, | Phone: | [phone] | | | | | unspecified | [phone] | | | | | | (HCC) | Fax: | | | | | | Chronic | [phone] | | | | | | hepatitis [...] | | | | | | | [place] | | | | | | | ESOPHAGOGAST | | | | | | | RODUODENOSCO | | | | | | | PY TRANSORAL | | | | | | | DIAGNOSTIC | | | | | | | GA EDG | | | | | | | TRANSORAL | | | | | | | BIOPSY | | | | | | | SINGLE/MULTI | | | | | | | PLE GA | | | | | | | [...] | | / | results/Jorge | [place] [address] | SUPERVISOR [employer] P[employer]ATING [address] | | | | Gastroenterol | brent/pt/ | [address] | [place] | | | | ogy | Faxed | WAY | [address] | | | | | request for | [place], | [place] | | | | | [employer] | [place] [address] | [address] Phone: | | | | | auth | Phone: | [phone] | | | | | Procedures | [phone] | Fax: | | | | | OFFICE VISIT | Fax: | [phone] | | | | | REGULAR | [phone] | | +--------+--------+ + + + + Encounter Details +--------+---------+ + + + | Date | Type | Department | Care Team | Description | +--------+---------+ + + + | 09/10/ | Office | [facility] | [facility], | Hepatic cirrhosis, | | 2016 | Visit | GASTROENTEROLOGY | [place] [address] | unspecified hepatic | | | | [address] [place] | [place], [place] [address] | cirrhosis type (HCC) | | | | [address] [place], [place] | [place] | (Primary Dx); | | | | [address] | [address] | Thrombocytopenia, | | | | [phone] | | unspecified (HCC); | | | [...] marijuana May be beneficial to meet with Game Farm Supervisor. Cirrhosis ? MELD score- an indication of [...] Final eGFR, External 07/30/2015 >60 60 - [id number] Final INR, External 07/30/2015 1.2* 0.9 - [...] type (HCC) Ambulatory referral to [facility] ro[facility]ology ([facility]) likely combination of HCV, alcohol abuse, and steatohepatitis. 2. Thrombocytopenia, unspecified (HCC) Ambulatory referral to Gastroenterology ([facility]) 3. Chronic hepatitis C without hepatic coma (HCC) Ambulatory referral to Gastroenterology ([facility]) 4. ETOH abuse Ambulatory referral to Gastroenterology ([facility]) 5. Insulin dependent type 2 diabetes mellitus, uncontrolled (HCC) Ambulatory referral to G astroenterology ([facility]) 6. Marijuana use Plan: Hepatitis C Infection: [...] steatohepatitis. Patient may benefit from referral to bisque grader to help with control of diabetes. Liver [...] AFP and uncontrolled diabetes. Metabolic Bone Disease: intermediate Cirrhotics are at increased risk of developing [...] | | | | | [place] | | | | | | [address] | | | | | | | [...]
--- OUTSIDE RECORDS SUMMARY | ~2019-01-07 | XMS | Encounter Summary ---
Demographics + + + | Address | [address] | | | [place] [address] | + + + | Home Phone [...] Author + + + | Author | [facility] | + + + | Organization | [facility] [facility] | + [...] Team Providers + +------+ + | Care Terrazzo Mechanic Name | Role | Phone | + +------+ + | Shakir Monzon MD | PCP | | + +------+ + Encounter Details +--------+ + + + + | Date | Type | Department | Care Team | Description | +--------+ + + + + | 12/01/ | Telephone | [facility] | Bessy Solano, | | | 2018 | | [place] [address] | PA-C [address] | | | | | [address] | [address] | | | | | Mailcode: OC8D | [place], [place] | | | | | [facility] | [address] | | | | | and [place], | [phone] | | | | | [facility] [address] | | | | | | [place], [place] | | | | | | [address] | | | | | | [phone] | | | +--------+ + + + [...]
--- OUTSIDE RECORDS SUMMARY | ~2019-01-07 | XMS | Encounter Summary ---
Demographics + + + | Address | [address] | | | [place] [address] | + + + | Home Phone [...] Team Providers + +------+ + | Care Nurse Staff Name | Role | Phone | + +------+ + | Shakir Monzon DO | PCP | | + +------+ + Encounter Details +--------+ + + + + | Date | Type | Department | Care Team | Description | +--------+ + + + + | 09/09/ | Orders Only | [facility] | Donell Hunt MD | Cirrhosis of liver | | 2017 | | GASTROENTEROLOGY | [address] | without ascites, | | | | [address] [place] | [place], [place] | unspecified hepatic | | | | [address] [place], [place] | [address] | cirrhosis type (HCC) | | | | [address] | [phone] | (Primary Dx) | | | | [phone] | | | +--------+ + + + [...] documented as of this encounter Progress Notes Brandi Serrano RN - 09/09/2016 10:30 AM [facility]Zelda [facility] and [facility] abdomin al [facility] order to approved the referral and then pateint can get scheduled; should be f axed to [facility] attn to Ami at fax # [phone] she noted patient's appointment in on 10/14 at [facility] and not 09/16, explained we will make sure result gets there before appointme nt, recall placed for reminder; order printed and faxed. documented in this encounter Plan of Treatment +--------+---------+ + + + | Date | Type | Specialty | Care Team | Description | +--------+---------+ + + + | 04/06/ | Office | Cardiology | Lakisha Kahn | | | 2019 | Visit | | [address] | | | | | | [place] | | | | | | [address] | | | | | | | | +--------+---------+ + + + documented as of this encounter Visit Diagnoses + + | Diagnosis | + + | Cirrhosis of liver without ascites, unspecified hepatic cirrhosis type (HCC) - Primary | + + documented in this encounter"
--- OUTSIDE RECORDS SUMMARY | ~2019-01-07 | XMS | Encounter Summary ---
Demographics + + + | Address | [address] | | | [place] [address] | + + + | Home Phone [...] Author + + + | Author | [facility] | + + + | Organization | [facility] [facility] | [...] Team Providers + +------+ + | Care Steam Plant Operator Name | Role | Phone | [...] HOSPITAL | | | | | | [address] | | | | | | [place] Mailcode: | | | | | | [address] | | | | | | [facility] | | | | | | [place], [place] | | | | | | [address] | | | | | | [phone] | | | +--------+ + + + [...]
--- OUTSIDE RECORDS SUMMARY | ~2019-01-07 | XMS | Encounter Summary ---
Demographics + + + | Address | [address] | | | [place] [address] | + + + | Home Phone | | + + + | Preferred Language | Unknown | + + + | Marital Status | Single | + + + | Holiness Affiliation | Unknown | + + + [...] + +------+ + | Care Fast Food Fry Cook Name | Role | Phone | + [...] | | | | | varices | [address] | [address] | | | | | Procedures | [place] | [place], | | | | | egd | WAY | [place] [address] | | | | | | [place], | Phone: | | | | | | [place] [address] | [phone] | | | | | | Phone: | Fax: | | | | | | [phone] | [phone] | | | | | | Fax: | | | | | | | [phone] | | +--------+--------+ + + + + Encounter Details +--------+---------+ + + + | Date | Type | Department | Care Team | Description | +--------+---------+ + + + | 12/29/ | Office | [facility] | Donell Hunt MD | Hepatic cirrhosis, | | 2018 | Visit | GASTROENTEROLOGY | [address] | unspecified hepatic | | | | [address] [place] | [place], [place] | cirrhosis type, | | | | [address] [place], [place] | [address] | unspecified whether | | | | [address] | [phone] | ascites present | | | | [phone] | | (HCC) (Primary Dx); | | [...] [place] | | | | | | [address] | | | | | | | [...]
--- OUTSIDE RECORDS SUMMARY | ~2019-01-07 | XMS | Encounter Summary ---
Demographics + + + | Address | [address] | | | [place] [address] | + + + | Home Phone [...] Providers + +------+ + | Care Dairy Nutrition Specialist Name | Role | Phone | [...] 2017 | | [address] | [place] [address] | | | | | THI MADSEN | [address] | | | | | [place] | [place] [address] | | | | | [address] | [phone] | | | | | [phone] | | | +--------+ + + + [...] | | | | | [address]REA [address] | | | | | | [id number] | | | | | | | [...] MV A Jordan: 0.80 m/s MV Dec Amite: | | | 2.88 m/s2 MV DecT: 315.34 ms MV E Jordan: 0.90 m/s MV E/A | | | Ratio: 1.12 MV PHT: 91.45 ms MVA By PHT: 2.40 cm2 Septal | | | e': 0.08 m/s Septal E/e': 11.35 RAP: 5 mmHg RVSP: 18.14 | | | mmHg TR maxP.14 mmHg TR Vmax: 1.81 m/s Manager Safe: | | | DBS Authenticated by: Ayana [place] Report Date/Time: 10-28-2017 | | | 12:48:42 | | + + + + + | Procedure Note | + + | Harjit, Rad Conversion - 10/06/2018 4:15 PM PDT Patient Name: Kenyon Espinal of | | : 1955 Performing Physician: Ayana | | [facility] INDICATIONS------ | | -----CAD CONCLUSIONS 1. The [...] cmLVPWd: | | 0.85 cmLVOT Area: 3.94 mz9FUUE Diam: 2.24 cm%FS: 34.03 %EF(Teich): 62.81 | [...] mlLAESV Index (A-L): 28.14 ml/m2LAAs A2C: 18.26 [id number] A-L A2C: 53.81 | | mlLALs A2C: 5.26 cmLAAs A4C: 20.28 el8JXKOT A-L A4C: 66.58 mlLALs A4C: 5.24 | | cmRAAs: 20.48 cw0FZAQC A-L: 70.40 mlRAESV MOD: 63.59 mlRALs: 5.06 cmTAPSE: | | 2.02 cmAV maxP.52 mmHgAV meanP.83 mmHgAV Vmax: 1.83 m/Viv Vmean: 1.21 | | m/Viv VTI: 36.82 cmAVA Vmax: 2.09 cm2AVA (VTI): 2.36 ca1KVYG (Vmax): 0.00 | | cm2/m2AVAI (VTI): 0.00 cm2/m2LVOT maxP.80 mmHgLVOT meanP.09 mmHgLVSI Dopp: | | 40.90 ml/m2LVSV Dopp: 87.12 mlLVOT Vmax: 0.97 m/sLVOT Vmean: 0.68 m/sLVOT VTI: | | 22.11 cmMV A Jordan: 0.80 m/sMV Dec Amite: 2.88 m/s2MV DecT: 315.34 msMV E Jordan: | | 0.90 m/sMV E/A Ratio: 1.12MV PHT: 91.45 msMVA By PHT: 2.40 yf8Shnlgs e': 0.08 | | m/sSeptal E/e': 11.35RAP: 5 mmHgRVSP: 18.14 mmHgTR maxP.14 mmHgTR Vmax: | | 1.81 m/s Manager Safe: DBSAuthenticated by: Ayana [facility] Date/Time: 10-28-2017 | | 12:48:42 IMPRESSION: [...] A Jordan: 0.80 m/s | |MV Dec Amite: 2.88 m/s2 | |MV DecT: 315.34 ms | |MV E Jordan: 0.90 m/s | |MV E/A Ratio: 1.12 | |MV PHT: 91.45 ms | |MVA By PHT: 2.40 cm2 | |Septal e': 0.08 m/s | |Septal E/e': 11.35 | |RAP: 5 mmHg | |RVSP: 18.14 mmHg | |TR maxP.14 mmHg | |TR Vmax: 1.81 m/s | | | |Manager Safe: DBS | |Authenticated by: Ayana Felton | [...]
--- OUTSIDE RECORDS SUMMARY | ~2019-01-07 | XMS | Encounter Summary ---
Demographics + + + | Address | [address] | | | [place] [address] | + + + | Home Phone [...] + | Author | [facility] | | | and [place] | + + + | Organization | [facility] | | | [...] Team Providers + +------+ + | Care Architectural Technologist Name | Role | Phone | + [...] | | | | | | | [place] | | | | | | | ESOPHAGOGAST | | | | | | | RODUODENOSCO | | | | | | | PY TRANSORAL | | | | | | | DIAGNOSTIC | | | | | | | [place] EGD | | | | | | | TRANSORAL | | | | | | | BIOPSY | | | | | | | SINGLE/MULTI | | | | | | | PLE [place] | | | | | | | ANESTH,UGI | | | | | | | ENDOSCOPY | | | | | | | [place] EGD BAND | | | | | [...] | | | | | [address] | [place], [place] | | | | | [place], [place] | [address] | | | | | [address] | [phone] | | | | | [phone] | | | +--------+---------+ + + + [...] the physician who did your procedure at [phone] if you have any questions or experience any of the following: ? Increasing abdominal pain, nausea, or vomiting. ? Chills and fever over 101F. ? New abdominal swelling or bloating. ? Signs of rectal bleeding (black or red stool). If you cannot get a hold of your physician, then call the [facility] [phone] . If necessary, report to the Emergency Department at [facility]. Quit smoking: If you smoke or have [...] [place] | | | | | | [address] | | | | | | | [...] 07/27/2016 | PROVATION | | 8:52 AMMRN: [id number] #: [id number] of : | | | 6Admit Type: AmbulatoryAge: 60Room: [facility] 02Gender: MaleNote | | | Status: FinalizedAttending MD: Donell Hunt , [facility]rocedure: | | | Upper GI endoscopyIndications: For therapy of | | | esophageal varicesProviders: Donell Hunt MD, | | | Shirley Martinez RN, Mariama Monterroso | | | Thom, Rag Inspector, Manuel Lindo MD | | | (Anesthesia [...] the | | | anesthesiologist and the nanotechnician in the pre-procedure area in the | [...] | In: 9:04:15 AMScope Out: 9:13:44 AM [facility] | | | [place], [address] [place] [address] | | | instructions were provided to [...] |Scope Out: 9:13:44 AM | | | [facility], [address] [place] [address] | | | [address] | | + + -+ + +---------+ [...]
--- OUTSIDE RECORDS SUMMARY | ~2019-01-07 | XMS | Encounter Summary ---
Demographics + + + | Address | [address] | | | [place] [address] | + + + | Home Phone [...] [facility] [employer] [facility] | + + + | Organization | [facility] [employer] [facility] | + [...] Team Providers + +------+ + | Care Electrical Power Station Technician Name | Role | Phone | [...] | | 2019 | | Center at [facility] [address] | | - General | | | | [address] | | | | | | Mailcode: Rogers | | | | | | [facility] and | | | | | | [facility], [address] | | | | | | [place], [place] | | | | | | [address] | | | | | | [phone] | | | +--------+ + + + [...]
--- OUTSIDE RECORDS SUMMARY | ~2019-01-07 | XMS | Encounter Summary ---
Demographics + + + | Address | [address] | | | [place] [address] | + + + | Home Phone [...] Health [facility] [employer] [facility] | + + + | Organization | [facility] [employer] [facility] | + + + | Address | Unknown | + + + | Phone | Unavailable | + + + Support + + +---------+ + | Name | Relationship | Address | Phone | + + +---------+ + | Mary Medellin | ECON | Unknown | | + + +---------+ + Care Team Providers + +------+ + | Care Retail Sales Lead Name | Role | Phone | [...] [address] | | | | | | [place], [place] | Mailcode: | | | | | | [address] | [facility] | | | | | | Phone: | for Health | | | | | | [phone] | and Healing, | | | | | | Fax: | [address] | | | | | | [phone] | [place], [place] | | | | | | | [address] | | | | | | | Phone: | | | | | | | [phone] | | | | | | | Fax: | | | | | | | [phone] | +--------+--------+ + + + + Encounter Details +--------+---------+ + + + | Date | Type | Department | Care Team | Description | +--------+---------+ + + + | 10/14/ | Office | Digestive Health | Bessy Solano, | Hepatic cirrhosis, | | 2017 | Visit | Center at [facility] [address] | [address] | unspecified hepatic | | | | [address] | [address] | cirrhosis type (HCC) | | | | Mailcode: [facility] | [place], [place] | (Primary Dx); | | | | [facility] | [address] | Chronic hepatitis C | | | | and Healing, | [phone] | without hepatic coma | | | | [address] | | (HCC) | | | | [place], [place] | | | | | | [address] | | | | | | [phone] | | | +--------+---------+ + + + [...] and ETOH abstinence. Paul Rice MD, MS mold shop supervisor Director of Clinical Hepatology [facility] Division of Gastroenterology/Hepatology Bessy Villar PA-C [...] ~2014 per patient 4. 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 Bessy Solano PA-C [facility] 6TH FLOOR [address] Mailcode: [place] [address] Counseling Time: I spent more [...] + + + | SHAUN | [address] | [place] [address] | | | DIAGNOSTIC | [address] [...] [facility] | [address] | [place] [address] | | | SERVICES, CORE | PARK [...] modified from | [facility] | | original rock drill operator's approved specifications. The performance | LABORATORY | | of the METAL POURER HIV Combo test, with or without confirmation, was not | SERVICES, | | tested in pediatric patients less than 2 years of age. [facility] | SPECIAL IMM + | [...] | + + + + + | [facility] | [address] | [place] [address] | | | SERVICES, SPECIAL | PARK [...] - | | | | | | [facility] | | + + + + + + + + | Specimen | + + | Blood - Blood | | (substance) | + + + + + + + | Performing | Address | City/State/Zipcode | Phone Number | | Organization | | | | + + + + + | FLOOD - AIRPORT - | [address] | [place] [address] | | | [place] | | | [...] [facility] | [address] | [place] [address] | | | SERVICES, CORE | PARK [...] by | | | | | | [address] | | | | | | Marky Tapia, [facility] | | | | | | [address] | | | | | | [phone].[employer]. | | | | | | Júnior [...] [facility] | [address] | [place], [place] | | | [facility] | | [address] | | + + + + + [...] [facility] | [address] | [place] [address] | | | SERVICES, CORE | PARK [...] | + + + + + | [facility] | [address] | [place] [address] | | | SERVICES, CORE | PARK [...] LINDA LAGUER[facility] | [address] | [place] [address] | | | SERVICES, CORE | PARVEEN [...]
--- OUTSIDE RECORDS SUMMARY | ~2019-01-07 | XMS | Encounter Summary ---
Demographics + + + | Address | [address] | | | [place] [address] | + + + | Home Phone [...] | Author | [facility] [employer] [facility] | + + + | Organization | [facility] [employer] [facility] | + + + | Address | Unknown | + + + | Phone | Unavailable | + + + Support + + +---------+ + | Name | Relationship | Address | Phone | + + +---------+ + | Mary Medellin | ECON | Unknown | | + + +---------+ + Care Team Providers + +------+ + | Care Chief Environmental Commitment Officer Name | Role | Phone | [...] Record | | 2017 | | at [facility] [address] | | Review (GEN | | | | [address] Mailcode: | | Checklist ) | | | | [address] | | | | | | Health and [facility], | | | | | | [address] | | | | | | [place], [place] | | | | | | [address] | | | | | | [phone] | | | +--------+ + + + [...]
--- OUTSIDE RECORDS SUMMARY | ~2019-01-07 | XMS | Encounter Summary ---
Demographics + + + | Address | [address] | | | [place] [address] | + + + | Home Phone [...] + | Author | [facility] | + + + | Organization | [facility] | + + + | Address | Unknown | + + + | Phone | Unavailable | + + + Support + + +---------+ + | Name | Relationship | Address | Phone | + + +---------+ + | Mary Medellin | ECON | Unknown | | + + +---------+ + Care Team Providers + +------+ + | Care Casing Splitter Name | Role | Phone | + [...] + + | New Request | | Physical | Diagnoses | Lyo, | Gina [facility] | | | | Therapy | Gallbladder | MD Sophie | Gina[facility] Ch[facility]1 | | | | | perforation | [address] | [address] | | | | | Procedures | [address] | Ave | | | | | CONSULT TO | Parveen Langford | Mailcode: | | | | | CARDIAC | [place], [place] | [address] | | | | | [facility] | [address] | for Health | | | | | | Phone: | and Healing, | | | | | | [phone] | [address] | | | | | | Fax: | [place], [place] | | | | | | [phone] | [address] | | | | | | | Phone: | | | | | | | [phone] | | | | | | | Fax: | | | | | | | [phone] | + +--------+ + + + + PROC - Outpatient Surgery (Routine) + +--------+ + + + + | Status | Reason | Specialty | Diagnoses / | Referred By | Referred To | | | | | Procedures | Contact | Contact | + +--------+ + + + + | Authorized | | Surgery | Diagnoses | Lyo, | [facility] | | | | | Gallbladder | MD Sophie | [address] | | | | | perforation | [address] | | | | | Procedures | Mirta Gross | Mailcode: | | | | | REQUEST TO | [address] | Center for | | | | | SURGERY | [place], [place] | Health and | | | | | [employer] | [address] | Healing, | | | | | AL REMOVAL | Phone: | [address] | | | | | GALLBLADDER | [phone] | [place], [place] | | | | | AL REMV | Fax: | [address] | | | | | GALLBLADDER | [phone] | Phone: | | | | | W | | [phone] | | | | | CHOLANGIOGRA | | Fax: | | | | | M AL REMV | | [phone] | | | | | GALLBLADDER, | | | | | | | EXPLOR | | | | | | | COMMON DUCT | | | | | | | AL REMV | | | | | | | GB,W | | | | | | | CHOLEDOCHOEN | | | | | | | TEROSTOMY | | | | | | | AL | | | | | | | ANAST,JACINTO-E | | | | | | | N-Y,EXTRAHEP | | | | | | | TO GI TRCT | | | | | | | AL | | | | | | | ANAST,JACINTO-E | | | | | | | N-Y,INTRAHEP | | | | | | | TO GI TRCT | | | | | | | AL UPPER GI | | | | | | | | | | | | | | ENDOSCOPY,DI | | | | | | | AGNOSIS AL | | | | | | | UPPER GI | | | | | | | ENDOSCOPY,BI | | | | | | | OPSY AL | | | | | | | PLACE PERCUT | | | | | | | GASTROSTOMY | | | | | | | TUBE AL | | | | | | | REMOVAL | | | | | | | STOMACH,TOTA | | | | | | | L AL | | | | | | | REMOVAL | | | | | | | STOMACH,JACINTO | | | | | | | -EN-Y AL | | | | | | | ERCP,W/REMOV | | | | | | | AL | | | | | | | STONE,DAVID/PA | | | | | | | NCR DUCTS | | | | | | | AL EXCIS | | | | | | | BILE DUCT | | | | | | | TUMOR,EXTRAH | | | | | | | EPATIC AL | | | | | | | EXCIS BILE | | | | | | | DUCT | | | | | | | TUMOR,INTRAH | | | | | | | EPATIC AL | | | | | | | LAP,ESOPHAGU | | | | | | | S,OTHER PROC | | | | | | | [id number] | | | | | | | (like code | | | | | | | [id number] | | | | | | | or [address]) | | | + +--------+ + + + + Reason for Visit + + + | Reason | Comments | + + + | History and physical | | | examination | | + + + Consultation (Urgent) + +--------+ + + + + | Status | Reason | Specialty | Diagnoses / | Referred By | Referred To | | | | | Procedures | Contact | Contact | + +--------+ + + + + | Authorized | | Surgery | Diagnoses | Quaempts, | Gs General | | | | | | Shakir Fagan MD | Surg Ch[facility]2 | | | | | Cholelithias | [place] | [address] | | | | | es | [place] | Ave | | | | | | Health | Mailcode: | | | | | | [place] | [facility] | | | | | | [facility] | Health and | | | | | | [place] | Healing, | | | | | | Way | [address] | | | | | | [place], | [place], [place] | | | | | | [place] [address] | [address] | | | | | | Phone: | Phone: | | | | | | [phone] | [phone] | | | | | | Fax: | Fax: | | | | | | [phone] | [phone] | + +--------+ + + + + Encounter Details +--------+---------+ + + + | Date | Type | Department | Care Team | Description | +--------+---------+ + + + | 02/02/ | Office | Digestive Health | Morillo Clinton, | Gallbladder | | 2018 | Visit | Center at [facility] [address] | [address] | perforation (Primary | | | | [address] | [address] | Dx) | | | | Mailcode: Center | [place], [place] | | | | | for Health and | [address] | | | | | [facility] 2 | [phone] | | | | | [place], [place] | | | | | | [address] | | | | | | [phone] | | | +--------+---------+ + + + [...] + + + | Blood Pressure | 155/88 | 02/02/2018 8:54 AM | | | | | PST | | + + + + + | Pulse | 73 | 02/02/2018 8:54 AM | | | | | PST | | + + + + + | Temperature | 36.4 C (97.5 F) | 02/02/2018 8:54 AM | | | | | PST | | + + + + + | Respiratory Rate | 16 | 02/02/2018 8:54 AM | | | | | PST | | + + + + + | Oxygen Saturation | - | - | | + + + + + | Inhaled Oxygen | - | - | | | Concentration | | | | + + + + + | Weight | 102.1 kg (225 lb) | 02/02/2018 8:54 AM | | | | | PST | | + + + + + | Height | 179.1 cm (5' 10.5") | 02/02/2018 8:54 AM | | | | | PST | | + + + + + | Body Mass Index | 31.83 | 02/02/2018 8:54 AM | | | | | PST [...] of this encounter Patient Instructions Patient Instructions Amalia Kearney RN - 02/02/2018 9:10 AM PSTPATIENT SURGERY INFORMATI ON [facility] General Surgery Office Toll-free: ext [phone] Surgery Date: TBD Procedure: Laparoscopic cholecystectomy, possibly open, possible cholangiogram Surgeon Name: Dr. Clinton Morillo DIRECTIONS FOR SURGERY DIET Nothing to eat or drink after midnight on the night prior to surgery. Your doctor will ins truct you on what medications to take the morning of surgery. Please note: Some surgeries may require additional dietary restrictions or a bowel preparation. Your vasquez rgical team will give you additional printed instructions should these be necessary. MEDICATIONS Unless otherwise directed by your provider, do not take any Aspirin, vitamin E or non-stero idal anti-inflammatory (NSAIDs i.e. Advil, Aleve, Ibuprofen) or herbal supplements seven day s prior to your surgery. These drugs may interfere with normal blood clotting and may cause excessive bleeding and bruising during or after the surgery. Please see the list below, [facility] has a list of products that contain Aspirin, Ibuprofen, or Vitamin E If you are taking Coumadin (warfarin), Plavix or any other blood thinners please let your s urgical team know as medication changes will be necessary. If you need a pain medication for general purposes, use Tylenol as directed. If you are in doubt about any medications that you are taking, please contact our office. PRE-OP BATHING/SHOWERING - HIBICLENS (Chlorhexidine Gluconate) Bath or shower the evening before and the morning of your surgery Use the bottle of Hibiclense soap for the evening cleansing and the bottle in the mor komal Wash from your neck to your toes. BE CAREFUL NOT TO WASH YOUR FACE, HAIR, OR GENITALS WIT H THIS SOLUTION After your shower or bath do not apply lotions, powders, or deoderant SMOKING You should not smoke for four weeks prior to the procedure and two weeks after the procedur e. If you are a smoker, please speak with your provider. Smoking can significantly affect the outcome of your procedure. Smoking near the time of vasquez rgery causes a more acute narrowing of the blood vessels, which may lead to decreased blood flow to the tissue, poor healing, bad scars, or actual loss of tissue. WHEN TO ARRIVE Check-in times for Hospital Admissions are not available until the day prior to surgery. S breezyone will contact you with your check in time. If you do not hear from anyone by 7:00 PM please call the General Surgery Office at [phone] for [id number]. PARKING Parking for patients and visitors is available in the [facility] Parking structure located across from the emergency department. Patient parking is available on level 1 and 3. Mete red parking is available on the top level. CHECKING IN FOR SURGERY For Hospital Admission (in-patient) you will check in on the day [facility] located on the 9th floor of [facility] TRANSPORTATION You will require transportation home on the day of discharge. Pain medications and physica l activity restrictions may limit your ability to drive safely. CANCELLING YOUR PROCEDURE Please notify the general surgery office at [phone] as soon as possible should you nee d to cancel or change your surgery date. We will attempt to reschedule your procedure in a timely manner however due to a limited amount of operating room time a waiting list is not u ncommon. ILLNESS Please call our office with any signs of illness such as cold, flu, infection, fever, or s kin rash/infection anytime prior to your surgery. PRODUCTS CONTAINING ASPIRIN Teresita-[place], Anacin, Anexsia with Codeine, Andynos, Aspirin, Aspirin suppositories, Ascrip tin, Aspergum, Axotal, B-A-C, Baby Aspirin, Chalino, BC Powder, Bexophene, Buffaprin, Bufferin , Buffinol, Cama-Arthritis Strength, Congespirin, [place], Coricidin, Damason, Darvon, Dristan, Monica-Gesic, Digel, Dolprin #3 Tablets, Donatab, Doxaphene, Duragesic, Easprin, Ecotrin, Emag rin Forte, Emiprin, Emprazil, Equagesic, Equazine M, Excedrin, Fiogesic, Fiorgen PH, Fiorice t, Fiorinal, 4-Way Cold Tablet Gemnisyn, Indocin, Liquprin, Lortab ASA, Magnaprin, Marnal, Meprobamate, Midol, Momentum, N orgesic, Lisbon, Orphengesic, Pabalate, P-A-C, Percodan, Presalin, Robaxasil, Roxiprin, Barry eto, Salocol SK-65 Compound, Sine-Aid, Sine-Off,, Laurens, Supac, Talwin Compound, Trigesic, Tolectin , Traiminicin, Vanquish, ZORprin, Zomax PRODUCTS CONTAINING IBUPROFEN Advil, Aleve, Haltran, Medipren, Midol, Motrin, Naproxyn, Nuprin, Rufen OTHER PRODUCTS WHICH MAY PROMOTE BLEEDING Vitamin E, Gingko Biloba, Marine Fatty Acids, Acra-3 Fish Oil SupplementsElectronically si gned by Amalia Kearney RN at 02/02/2018 10:03 AM PST documented in this encounter Progress Notes Clinton Morillo MD - 02/02/2018 9:10 AM PSTDiscussed with resident Clinton Morillo M.D. [facility] ([facility]) Professor and Vice-Post Closing Specialist of Surgery The [facility] Chair for Pancreatic Disease Research [facility] Cell phone: [phone] / [facility] provider's line [phone]. email: [email or web address] MD - 1 04/05/2017 9:10 AM PST The Department of Surgery Clinic Note Author: Sophie Nicole MD Attending Physician: Clinton Morillo MD 02/02/2018, 8:56 AM Patient Name: Bret Espinla Jr. : 1955 Medical Record: [id number] ID: Bret Espinal Jr. is a 62 y.o. man who presents for preop visit for cholecystectomy and ERCP HPI: Bret Espinal Jr. is a 62 y.o. Man with HCV/EtOH cirrhosis (s/p HCV treatment; has bee n abstaining from EtOH), diabetes, and severe CAD who presents with recent hospitalization a nd septic shock after cholecystitis and perforated gallbladder in July 2017. He reports havi ng some abdominal pain in April, but was reassured that he had cholelithiasis/cholecystitis and his obstructing stone had passed and sent home; he did have an NSTEMI in April and had a cath at the time, showing diffuse disease, nothing amenable to stenting and or bypass. His abdominal pain continued and he became jaundiced. He was admitted at an OSH and transfe rred to [facility] for further care in July. During this hospitalization he was septic with some a cute hepatic injury and required a cholecystostomy tube to control his sepsis. He recovered and has been at home with the cholecystostomy tube. He had CHF during his admission in July with a ruptured gallbladder. Due to his severe systemic disease and cirrhosis, he was referr ed back to [facility] for surgery and was last seen in clinic in October. MRCP in September showed biliary stricture with two areas of perihilar collections. Since we last saw him, we we referred him for cardiac and hepatology evaluation and preoper ative clearance. Dr. Rice saw him and there were no contraindications to proceeding with surg myranda. He will be due for a screening EGD for varices, but his last scope in 2016 showed grade 1 varices. He was evaluated by cardiology here at [facility] in May and Oct 2017, and his disease is not amenable to surgical or angiographic intervention. He was recommended for cardiac rehab, but notes say that he has not started it and does not take SL nitrogylcerin. On further questio komal, he states he was never referred for cardiac rehab but has identified a place for it. Kaye cole was also instructed that the nitroglycerin was for emergencies only. He still has intermit tent angina such has when he chops wood and gets winded, and I instructed him today that he could take his NTG for these episodes of pain. I also placed an external order for cardiac r ehab for him. He had an echocardiogram on October 27, 2017 at [facility] which re ports normal LV size and function with LVEF of 60-65% with a mild aortic stenosis and normal appearing IVC indicating normal central venous pressures. His perioperative risk for a anton r cardiac event was deemed at 20% by his cardiologists, and this was discussed with him greta taylor. He understands this risk, and still desires surgery as he is having intermittent pain aroun d his drain and feels low energy. He is still smoking between 1-4 cigarettes per day, but he states he will quit in order to get his surgery (which Dr. Morillo says is mandatory). He has been compliant with all of his current medications (reviewed and updated in Epic today) and his is helping him. He denies fevers, chills and reports tolerating his diet and normal bowel movements (loose with lactulose). He has gained about 5 lbs due to inactivity, but he is very much interested in cardiac rehab. His cholecystostomy tube had fallen out several centimeters, and he cleaned it and pushed i t back in. His PCP re-sutured it, and it has still been putting out bile. Medical History Past Medical History: Diagnosis Date Cirrhosis of liver (HCC) from EtOH and HCV with esophageal varices, hepatic encephalopathy Coronary artery disease NSTEMI April 2017, not amenable to surgery or PCI Diabetes (HCC) GERD (gastroesophageal reflux disease) HCV (hepatitis C virus) Surgical History Past Surgical History Procedure Laterality Date Cholecystostomy, percutaneous 07/2017 Family History Family History Problem Relation Coronary Artery Disease Father bypass surgery at 54, at 56 lymphoma Social History Social History Social History Marital status: Single Spouse name: N/A Number of children: N/A Years of education: N/A Social History Main Topics Smoking status: Current Every Day Smoker Packs/day: 0.10 Years: 40.00 Types: Cigarettes Smokeless tobacco: Never Used Alcohol use No Drug use: Yes Comment: marijuana Sexual activity: Not on file Other Topics Concern Not on file Social History Narrative No narrative on file Allergies Allergies Allergen Reactions Hydromorphone Anxiety, Confusion and Delirium Medications Current Outpatient Prescriptions Medication Sig insulin aspart U-100 (NOVOLOG FLEXPEN U-100 INSULIN) [...] unit/mL (3 mL) subcutaneous insulin pen Inject 30 Uni ts under the skin (SUBC) every twelve hours. losartan 25 mg oral tablet Take 25 mg by mouth once daily. mesalamine 500 mg oral capsule, extended release Take 1,200 mg by mouth two times daily . metoprolol tartrate 25 mg oral tablet Take [...] No current facility-administered medications for this visit. REVIEW OF SYSTEMS: General: No constitutional symptoms of fevers, fatigue, chills, weight loss or sweats. 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 Neurologic: No unusual headaches, numbness, tingling Skin: No itching, rash Heme: No history of DVT, PE, easy bleeding or bruising Physical Exam Vital Signs: BP 155/88 | Pulse 73 | Temp (Src) 36.4 C (97.5 F) (Oral) | RR 16 | Ht 1.79 1 m (5' 10.5") | Wt 102.1 kg (225 lb) | BMI 31.83 kg/(m^2) Constitutional: Obese man in NAD HENT: Normocephalic, Atraumatic Eyes: PERRL, EOMI, Conjunctiva normal Cardiovascular: Normal heart rate, regular rhythm Respiratory: No respiratory distress GI: Soft, No tenderness, No masses, No pulsatile masses. Obese; RUQ biliary drain with lig ht green liquid in bag Integument: Warm, Dry, No erythema, No rash. Musculoskeletal: No edema Neurologic: Alert & oriented x 3, Normal motor function, Normal sensory function, No focal deficits noted. Psychiatric: Affect normal, Judgment normal, Mood normal. PERTINENT LABS/STUDIES: MRI 09/24/17 IMPRESSION: 1. Persistent inflammatory mass and two small residual hilar abscesses at the site of the previously seen large hilar abscess, with persistent upper common bile duct stricture and u pstream intrahepatic biliary duct dilatation. 2. Decompressed gallbladder and resolved fluid collections along the fundus and body stat us post cholecystostomy. 04/2017 Coronary catherization CONCLUSIONS: 1.Diffuse moderate to moderately severe CAD with severe calcification of all three anton r cors, especially in the proximal sections: A) [...] moderate size vessel, with worst stenosis of abou t 50% in mid RCA and PL-1 2.Normal LV function by Echo. 3.Markedly tortuous and calcified left coronary system, especially the LCx system. Echo 10/27/17: 1. The left ventricle is normal in size, wall thickness and systolic function EF 60-65%. 2. The right ventricle is normal in size and function. 3. Mild degenerative changes in the aortic and mitral vavles. 4. There is no pericardial effusion Colonoscopy 11/12/17 ASSESSMENT AND PLAN: This is Bret Espinal Jr., a 62 y.o. man who with a history of gallbladder perforation with resultant angela-hilar abscesses and biliary stricture, s/p cholecystostomy tube placement. Kaye cole also has HCV and EtOH cirrhosis with a history of varices and HE, well-controlled, and CAD medically managed. He is high risk for liver failure and a major cardiac event, but is as o ptimized as possible for surgery. -- Will proceed with ERCP by Dr. Lopez under anesthesia to evaluate for biliary strictu re and consideration of sphincterotomy and stenting, followed by laparoscopic cholecystectom y, possibly open, possible IOC (less likely) during the same anesthetic event. Plan for Dennis meredith -- He will have to quit smoking before surgery, for at least 2 weeks. -- Prescriptions: for Nicotine gum ordered -- MD ALONSO with T+S, INR, CBC, Ur nicotine testing at that appointment to confirm he has manuel t smoking -- External order for cardiac rehab placed, pt informed to contact PCP if having difficulty getting appointment Discussed with Dr. Morillo to agrees with the above plan 1. The patient indicates understanding of these issues and agrees with the plan. 2. I reviewed the patient's medical information and medical history. 3. I have reviewed the past medical, family, and social history sections including the med ications and allergies listed in the above medical record. Sophie Nicole MD [facility] Advanced GI & Minimally Invasive Surgery Fellow [facility] [place] Pager [phone] documented in this enco unter Plan of Treatment +--------+ + + + + | Date | Type | Specialty | Care Team | Description | +--------+ + + + + | 02/22/ | Procedure | Surgery | | | | 2020 | Pass | | | | +--------+ + + + + documented as of this encounter Results COMPLETE METABOLIC SET (NA,K,CL,CO2,BUN,CREAT,GLUC,CA,AST,ALT,BILI TOTAL,ALK PHOS,ALB,PROT TOTAL) [...] | | | LABORATORY | | | [place] | | | SERVICES, | | | [...] | + + + + + | [facility] | [address] | [place] [address] | | | SERVICES, CORE | PARVEEN [...] 5 | | | | | | ng/lG7-AF-Tdaqevqy 50 | | | | | | [...] | | | | | determined by [facility] | | | | | | Laboratories. See | | | | | | Compliance Statement B: | | | | | | [email or web address] | | | | | | by [address] | | | | | | [facility],[place] | | | | | | [address] | | | | | | [phone]. | | | | | | comJúnior MD, | | | | | | [...] REG UNIV | | | | and 9-VE-wfvusdte is | | PTH - INTFC | | | | ametabolite of cotinine. | | | | | | After cessation from | | | | | | long-term orheavy use of | | | | | | nicotine products, | | | | | | 6-PH-vxggqgmm may | | | | | | [...] [facility] | [address] | [place], [place] | | | UNIV PTH - INTFC | | [address] | | + + + + + [...] + | [facility] | [address] | [place] [address] | | | SERVICES, O[address] | [address] | | | + + + + + documented in this encounter Visit Diagnoses + + | Diagnosis | + + | Gallbladder perforation - Primary Perforation of gallbladder | + + documented in this encounter
--- OUTSIDE RECORDS SUMMARY | ~2019-01-07 | XMS | Encounter Summary ---
Demographics + + + | Address | [address] | | | [place] [address] | + + + | Home Phone [...] Author | [facility] | + + + | Organization | [facility] | + [...] Team Providers + +------+ + | Care Preforms Laminator Name | Role | Phone | + [...] Test Results | | 2018 | | [place] [address] | PA-C [address] | | | | | [address] | [address] | | | | | Mailcode: OC8D | [place], [place] | | | | | [facility] | [address] | | | | | and Healing, | [phone] | | | | | [address] | | | | | | [place], [place] | | | | | | [address] | | | | | | [phone] | | | +--------+ + + + [...]
--- OUTSIDE RECORDS SUMMARY | ~2019-01-07 | XMS | Encounter Summary ---
Demographics + + + | Address | [address] | | | [place] [address] | + + + | Home Phone [...] + | Author | [facility] | + + + | Organization | [facility] | + + + | Address | Unknown | + + + | Phone | Unavailable | + + + Support + + +---------+ + | Name | Relationship | Address | Phone | + + +---------+ + | Mary Medellin | ECON | Unknown | | + + +---------+ + Care Team Providers + +------+ + | Care Silk Weaver Name | Role | Phone | [...] Medical Records | | 2018 | | [place] [address] | [place] [address] [facility] | Review (04/23/17 HCV | | | | [address] | [address] | viral load) | | | | Mailcode: OC8D | [place], [place] | | | | | [facility] | [address] | | | | | and Maxine, | [phone] | | | | | [place] [address] | | | | | | [place], [place] | | | | | | [address] | | | | | | [phone] | | | +--------+ + + + [...]
--- OUTSIDE RECORDS SUMMARY | ~2019-01-07 | XMS | Encounter Summary ---
Demographics + + + | Address | [address] | | | [place] [address] | + + + | Home Phone [...] + + + | Author | [facility] [employer] [facility] | + + + | Organization | [facility] [employer] [facility] | + + + | Address | Unknown | + + + | Phone | Unavailable | + + + Support + + +---------+ + | Name | Relationship | Address | Phone | + + +---------+ + | Mary Medellin | ECON | Unknown | | + + +---------+ + Care Team Providers + +------+ + | Care Brass Pickler Name | Role | Phone | + [...] | | | | [facility] [address] | [place], | | | | | [address] | [place] [address] | | | | | Mailcode: [id number] | [phone] | | | | | Nikkie Mazariegos | | | | | | [address] [place], [place] | | | | | | [address] | | | | | | [phone] | | | +--------+ + + + [...]
--- OUTSIDE RECORDS SUMMARY | ~2019-01-07 | XMS | Encounter Summary ---
Demographics + + + | Address | [address] | | | [place] [address] | + + + | Home Phone | | + + + | Preferred Language | Unknown | + + + | Marital Status | Single | + + + | Gnosticist Affiliation | Unknown | + + + | Race | Unknown | + + + | Ethnic Group | Unknown | + + + Author + + + | Author | [facility] | | | and [place] | + + + | Organization | [facility] | | | [...] Team Providers + +------+ + | Care Script Writer Name | Role | Phone | [...] + + | 12/10/ | Hospital | [facility] | Donell Hunt MD | Cirrhosis of liver | | 2017 | Encounter | [facility] CTR [facility] OP | [address] | without ascites, | | | | [address] | [place], [place] | unspecified hepatic | | | | [place], [place] | [address] | cirrhosis type | | | | [address] | [phone] | (HCC); 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 This includes: All prescription medicines Pveu-ufo-vevsbna medicines such as aspirin or ibuprofen Street [...] heart or lung disease Date Last Reviewed: 09/10/201419995194-5561 [employer]. [address] [place] [address]. All righ ts reserved. This information is [...] what medicines and drugsyou take. This includes sjuc-yvc-zcw nter medicines, herbs, supplements, alcohol or other [...] ke ep you safe. Date Last Reviewed: 01/16/201619999596-6993 [employer]. [address] [place] [address], [place] [address]. All righ ts reserved. This information is [...] the physician who did your procedure at [phone] if you have any questions or experience any of the following: ? Increasing abdominal pain, nausea, or vomiting. ? Chills and fever over 101F. ? New abdominal swelling or bloating. ? Signs of rectal bleeding (black or red stool). If you cannot get a hold of your physician, then call the [facility] [phone] . If necessary, report to the Emergency Department at [facility]. Quit smoking: If you smoke or [...] [place] | | | | | | [address] | | | | | | | [...] 12/10/2016 | PROVATION | | 8:51 AMMRN: [id number] #: [id number] of : | | | 6Admit Type: AmbulatoryAge: 61Room: [facility] 01Gender: MaleNote | | | Status: FinalizedAttending MD: Donell Hunt , [facility]cedure: | | | Upper GI endoscopyIndications: Follow-up of esophageal | | | varicesProviders: Donell Hunt MD, Lorlyn | | | SADA Cottrell, Mariama Tomas, | | | Computer Video Game Designer, Josiah Ortiz MD (Anesthesia Staff)Referring MD: | [...] the anesthesiologist and the | | | sow farm technician in the pre-procedure area in the [...] | | 8:59:51 AMScope Out: 9:07:17 AM [facility] | | | [place], [address] [place] [address] | | | - Resume previous diet. [...] |Scope Out: 9:07:17 AM | | | [facility], [address] [facility], [place], [place] | | | [address] | | + + -+ + +---------+ [...] [address] | [place] | [phone] | | [facility] | | [address] | | | - LABORATORY | | [...] processing and slide preparation were performed by [employer], | | | [address], [place] [address] (Accreditation Specialist: | | | Catrachito Ortiz M.D. CLIA#: [id number]). Professional interpretation | | | was performed by [employer], [facility] | | | [place], [address] [facility], [place] [address] (Medical | | | Director: Catrachito Ortiz M.D.; CLIA#: [id number]). | | | Diagnostician: Catrachito Ortiz MD [...]
--- OUTSIDE RECORDS SUMMARY | ~2019-01-07 | XMS | Encounter Summary ---
Demographics + + + | Address | [address] | | | [place] [address] | + + + | Home Phone | | + + + | Preferred Language | Unknown | + + + | Marital Status | Single | + + + | Samaritan Affiliation | Unknown | + + + | Race | Unknown | + + + | Ethnic Group | Unknown | + + + Author + + + | Author | [facility] | | | and [place] | + + + | Organization | [facility] | | | [...] Team Providers + +------+ + | Care Patient Coordinator Name | Role | Phone | + +------+ + | Shakir Monzon DO | PCP | | + +------+ + Encounter Details +--------+ + + + + | Date | Type | Department | Care Team | Description | +--------+ + + + + | 05/05/ | Orders Only | [facility] | Donell Hunt MD | Monilial esophagitis | | 2017 | | GASTROENTEROLOGY | [address] | (HCC) (Primary Dx) | | | | [address] [place] | [place], [place] | | | | | [address] [place] | [address] | | | | | [address] | [phone] | | | | | [phone] | | | +--------+ + + + [...] encounter Progress Notes Brandi Serrano RN - 05/05/2016 4:43 PM PDTPrescription ordered for Diflucan 100mg PO x 1 0 days for Monilial esophagitis; printed and faxed to [facility] pharmacy per Dr. Gilbert haskins; recall placed for repeat EGD in 3 months for repeat esophageal varice banding.Ana sinclair signed by Brandi Serrano RN at 05/05/2016 4:44 PM PDTdocumented in this encounter Plan of Treatment +--------+---------+ + + + | Date | Type | Specialty | Care Team | Description | +--------+---------+ + + + | 04/06/ | Office | Cardiology | KahnLakishaDO | | | 2019 | Visit | | [address] | | | | | | [place] | | | | | | [address] | | | | | | | | +--------+---------+ + + + documented as of this encounter Visit Diagnoses + + | Diagnosis | + + | Monilial esophagitis (HCC) - Primary Candidiasis of the esophagus | + + documented in this encounter"
--- OUTSIDE RECORDS SUMMARY | ~2019-01-07 | XMS | Encounter Summary ---
Demographics + + + | Address | [address] | | | [place] [address] | + + + | Home Phone [...] Team Providers + +------+ + | Care Mobility Architect Name | Role | Phone | [...] + | 10/05/ | Telephone | [facility] | Donell Hunt MD | Other (medical | | 2017 | | GASTROENTEROLOGY | [address] | records) | | | | [address] [facility] | [place], [place] | | | | | [address] [place] | [address] | | | | | [address] | [phone] | | | | | [phone] | | | +--------+ + + + [...] [place] | | | | | | [address] | | | | | | | | +--------+---------+ + + + documented as of this encounter Visit Diagnoses Not on filedocumented in this encounter"
--- OUTSIDE RECORDS SUMMARY | ~2019-01-07 | XMS | Encounter Summary ---
Demographics + + + | Address | [address] | | | [place] [address] | + + + | Home Phone | | + + + | Preferred Language | Unknown | + + + | Marital Status | Single | + + + | Muslim Affiliation | Unknown | + + + | Race | Unknown | + + + | Ethnic Group | Unknown | + + + Author + + + | Author | [facility] | | | and [place] | + + + | Organization | [facility] | [...] Team Providers + +------+ + | Care Tape Recorder Repairer Name | Role | Phone | [...] | | / | per phone | [address] | SCREW MACHINE OPERATOR SWISS TYPE [address] | | | | Gastroenterol | note/ | [address] | [place], [place] | | | | ogy | [address] | [address] | [address] [place] | | | | | [address]/ | [place], | [place], [place] | | | | | Self | [place] [address] | [address] Phone: | | | | | Procedures | Phone: | [phone] | | | | | OFFICE VISIT | [phone] | Fax: | | | | | REGULAR | Fax: | [phone] | | | | | | [phone] | | +--------+--------+ + + + + [...] | [address] [place] | [place], [address] | cirrhosis type (HCC) | | | | [address] [place], [place] | [place], [place] | (Primary Dx); | | | | [address] | [address] | Chronic hepatitis C | | | | [phone] | | without hepatic coma | | [...] Final eGFR, External 02/17/2016 >60 60 - [id number] Final WBC, External 02/17/2016 6.2 4.5 - [...] 30* 0 - 4 Final UA Specific [place], External 02/17/2016 1.026 1.005 - 1.03 Final [...] given information for infectious disease provider in [facility]. He can have HCV darlene [...] | | | | | [place] | | | | | | [address] | | | | | | | [...]
--- OUTSIDE RECORDS SUMMARY | ~2019-01-07 | XMS | Encounter Summary ---
Demographics + + + | Address | [address] | | | [place] [address] | + + + | Home Phone [...] + + + | Author | [facility] | | | and [place] | + + + | Organization | [facility] | | | [...] Providers + +------+ + | Care Car Cooper Name | Role | Phone | + [...] + | 09/10/ | Telephone | [facility] | Donell Hunt MD | Results | | 2017 | | GASTROENTEROLOGY | [address] | | | | | [address] [facility] | [place], [place] | | | | | [address] [place] | [address] | | | | | [address] | [phone] | | | | | [phone] | | | +--------+ + + + [...] | | | | | [place] | | | | | | [address] | | | | | | | | +--------+---------+ + + + documented as of this encounter Visit Diagnoses Not on filedocumented in this encounter"
--- OUTSIDE RECORDS SUMMARY | ~2019-01-07 | XMS | Encounter Summary ---
Demographics + + + | Address | [address] | | | [place] [address] | + + + | Home Phone | | + + + | Preferred Language | Unknown | + + + | Marital Status | Single | + + + | Sabianist Affiliation | Unknown | + + + | Race | Unknown | + + + | Ethnic Group | Unknown | + + + Author + + + | Author | [facility] | | | and [place] | + + + | Organization | [facility] | | [...] Team Providers + +------+ + | Care Production Clerks Supervisor Name | Role | Phone | + +------+ + | Shakir Monzon DO | PCP | | + +------+ + Encounter Details +--------+ + + + + | Date | Type | Department | Care Team | Description | +--------+ + + + + | 09/06/ | Orders Only | [facility] | Provider, | | | 2019 | | SYSTEM GENERIC OP | MD Alvin Willett | | | | | [address] | [place] | | | | | [address] [place], [place] | [place] [address] | | | | | [address] | | | | | | [phone] | | | +--------+ + + + [...] [place] | | | | | | [address] | | | | | | | | +--------+---------+ + + + documented as of this encounter Visit Diagnoses Not on filedocumented in this encounter"
--- OUTSIDE RECORDS SUMMARY | ~2019-01-07 | XMS | Encounter Summary ---
Demographics + + + | Address | [address] | | | [place] [address] | + + + | Home Phone | | + + + | Preferred Language | Unknown | + + + | Marital Status | Single | + + + | Jehovah'S Witness Affiliation | Unknown | + + + | Race | Unknown | + + + | Ethnic Group | Unknown | + + + Author + + + | Author | [facility] | | | and [place] | + + + | Organization | [facility] | | [...] Team Providers + +------+ + | Care Engraver Ornamental Design Name | Role | Phone | + [...] [place] | | | | | | [address] | | | | | | [phone] | | | +--------+ + + + [...] | | | | | [place] | | | | | | [address] | | | | | | | | +--------+---------+ + + + documented as of this encounter Visit Diagnoses Not on filedocumented in this encounter"
--- OUTSIDE RECORDS SUMMARY | ~2019-01-07 | XMS | Encounter Summary ---
Demographics + + + | Address | [address] | | | [place] [address] | + + + | Home Phone [...] Team Providers + +------+ + | Care Scrap Drop Engineer Name | Role | Phone | [...] | Transcriptions | + + | Interface, Fur Blender In - 09/01/2005 3:08 AM PDT | | [address] | | [place], [place] [address] | | [facility] RECORDMed Rec No.: | | [id number] Date: 05/22/2002Name: [facility]ST[facility] SUR[facility]: | | Wilfredo Taylor M.D.ASSISTANTS: Nelson Skelton M.D.PREOPERATIVE | | DIAGNOSIS: Azoospermia.POSTOPERATIVE DIAGNOSIS: Azoospermia.OPERATIONS PERFORMED: | | 1. Left vasovasostomy. 2. Right epididymal vasostomy.SPECIMENS REMOVED: | | None.ANESTHESIA: Cord block.COMPLICATION: Not | | dictated.ESTIMATED BLOOD LOSS: Not dictated.INDICATIONS: Mr. Espinal | | had a vasectomy 12 years ago aftertwo children. He is from his first . He | | is now to [id number] woman who has never had children and [...] procedure well.Wilfredo Taylor M.D.SUMA/Jimbo: 05/22/2002T: | | 05/22/[id number] | |the right, no sperm was recovered [...] | |SUMA/narinder | | | | | |[phone] | + + documented in this encounter Visit Diagnoses Not on filedocumented in this encounter"
--- OUTSIDE RECORDS SUMMARY | ~2019-01-07 | XMS | Encounter Summary ---
Demographics + + + | Address | [address] | | | [place] [address] | + + + | Home Phone [...] | Author | [facility] | + + + | Organization | [facility] [employer] [facility] | + + + | Address | Unknown | + + + | Phone | Unavailable | + + + Support + + +---------+ + | Name | Relationship | Address | Phone | + + +---------+ + | Mary Medellin | ECON | Unknown | | + + +---------+ + Care Team Providers + +------+ + | Care Lead Injection Mold Technician Name | Role | Phone | [...] | | | | CONSULT TO | [place] | [place], [place] | | | | | CARDIOLOGY | [address] | [address] | | | | | | [place], [place] | Phone: | | | | | | [address] | [phone] | | | | | | Phone: | Fax: | | | | | | [phone] | [phone] | | | | | | Fax: | | | | | | | [phone] | | +--------+--------+ + + + + Encounter Details +--------+---------+ + + + | Date | Type | Department | Care Team | Description | +--------+---------+ + + + | 11/01/ | Office | Cardiology General | Sharon Sanderson | Dyspnea, unspecified | | 2018 | Visit | at [facility] [address] | [address] | type (Primary Dx); | | | | [address] Mailcode: | [address] [place], | Coronary artery | | | | [facility] Center for | [place] [address] | disease involving | | | | [facility], | [phone] | rosebud coronary | | | | Building | | artery, angina | | | | floor [place], [place] | | presence | | | | [address] | | unspecified, | | | | [phone] | | unspecified whether | | | | | | rosebud or | | | | | | [...] He was transferred to another facility in [place] and went into atrial fibrillation. He had an angiogram at [facility] which showed severe CAD and medical treatment was recom mended. He denies palpitations, tachycardia, irregular heart beat, paroxysmal nocturnal dys pnea, lower extremity edema. He is smoking few cigarettes per day. He is not drinking alcohol. He has not smoked marijua na for two weeks. He had an echocardiogram on October 27, 2017 at [facility] which reports normal LV size and [...] inferior Q waves Outside records reviewed from [facility] (in media tab) Echo 10/27/17: 1. The [...] well as continued risk for heart disease, [place]. Joyce ent advised to quit smoking prior to surgical intervention, preferably 1 month prior for opt imum outcome. Patient verbalized understanding of plan of care and instructions as outlined. A report of this preoperative evaluation will be sent to PCP Shakir Monzon MD and referring provider/surgeon Clinton Morillo MD and Michelle Gan MD. CARDIOLOGY - PREVENTIVE [address] Mailcode: [id number] [facility] [id number] [phone] signed by Sharon Sanderson PA-C at 11/01/2017 [...] DEPT OF | [address] | [place], [place] | | | CARDIOLOGY | [address] | [address] | | + + + + + documented in this encounter Visit Diagnoses + + | Diagnosis | + + | Dyspnea, unspecified type - Primary | + + | Coronary artery disease involving rosebud coronary artery, angina presence unspecified, | | unspecified whether rosebud or transplanted heart | + + | Essential hypertension | + + | Pre-operative cardiovascular examination | + + documented in this encounter
--- OUTSIDE RECORDS SUMMARY | ~2019-01-07 | XMS | Encounter Summary ---
Demographics + + + | Address | [address] | | | [place] [address] | + + + | Home Phone [...] + + | Author | [facility] [facility] | + + + | Organization | [facility] [employer] [facility] | [...] Team Providers + +------+ + | Care Ammonia Operator Name | Role | Phone | [...] Request | | 2019 | | at [facility] [address] | [address] | | | | | [address] Mailcode: | [address] [place], | | | | | [address] [address] | | | | | Health [facility], | [phone] | | | | | [facility] | | | | | | floor [place], [place] | | | | | | [address] | | | | | | [phone] | | | +--------+--------+ + + + [...]
--- OUTSIDE RECORDS SUMMARY | ~2019-01-07 | XMS | Encounter Summary ---
Demographics + + + | Address | [address] | | | [place] [address] | + + + | Home Phone [...] Author + + + | Author | [facility] [employer] [facility] | + + + | Organization | [facility] [employer] [facility] | + + + | Address | Unknown | + + + | Phone | Unavailable | + + + Support + + +---------+ + | Name | Relationship | Address | Phone | + + +---------+ + | Mary Medellin | ECON | Unknown | | + + +---------+ + Care Team Providers + +------+ + | Care Surgical Supply Assistant Name | Role | Phone | [...] Medical Records | | 2018 | | [facility] [address] [facility] | | Review (CAR GEN | | | | [address] | | Records Checklist) | | | | Mailcode: [id number] | | | | | | [facility] | | | | | | [address] [place], | | | | | | [place] [address] | | | | | | [phone] | | | +--------+ + + + [...] needed if being seen for abnormal ECG [place] 04/2017 Yes, in Care EW and attached below N/A Urgent fax request sent for tracings [phone] Last Echo images and report TTE [place] 04/2017 Yes, in Care EW and attached below Yes, in impax Urgent fax request sent to push im ages [phone] Last Stress Test images and report Exercise Stress Test No Last Cardiac Catheterization images and report [place] 04/2017 yes, in Care EW and attached below Yes, in impax Urgent fax request sent to push i mages [phone] Last Holter or Event monitor report only No N/A Labs (BMP, Lipids, TSH, Hemoglobin A1C in last 6 months) [place] Yes, in Care EW N/A Last Device [...]
--- OUTSIDE RECORDS SUMMARY | ~2019-01-07 | XMS | Encounter Summary ---
Demographics + + + | Address | [address] | | | [place] [address] | + + + | Home Phone [...] + | Author | [facility] [facility] | + + + | Organization | [facility] [employer] [facility] [...] Team Providers + +------+ + | Care Broom Machine Operator Name | Role | Phone [...] | | 2017 | | Center at [facility] [address] | PharmD [address] | management ([facility] | | | | [address] | [address] | Treatment) | | | | Mailcode: [id number] | [place], [place] | | | | | [facility] | [address] | | | | | and Healing, | | | | | | [address] | | | | | | [place], [place] | | | | | | [address] | | | | | | [phone] | | | +--------+ + + + [...]
--- OUTSIDE RECORDS SUMMARY | ~2019-01-07 | XMS | Encounter Summary ---
Demographics + + + | Address | [address] | | | [place] [address] | + + + | Home Phone [...] Team Providers + +------+ + | Care Excel Expert Name | Role | Phone | + [...] + + | 04/27/ | Surgery | [facility] | Bret Sharma MD | PROCEDURE NOT | | 2018 | | MED CTR MP INTRA OP | [address], [place] | PERFORMED - ERCP | | | | [address] | [address] [place] | | | | | [place] | [id number] | | | | | [address] | | | | | | [phone] | | | +--------+---------+ + + + [...] might be different fro m the original. [place] HOSPITALIST TRANSFER SUMMARY Pt. Name/Age/: Bret [...] Procedure: EGD; Surgeon: Donell Hunt MD; Location: [facility] MEDICAL PROCEDURE UNIT UPPER GASTROINTESTINAL ENDOSCOPY N/A 07/27/2016 Procedure: EGD; Surgeon: Donell Hunt MD; Location: [facility] MEDICAL PROCEDURE UNIT UPPER GASTROINTESTINAL ENDOSCOPY N/A 12/10/2016 Procedure: EGD; Surgeon: Donell Hunt MD; Location: [facility] MEDICAL PROCEDURE UNIT FAMILY HISTORY: family history [...] mg Intravenous 3 times per day Flor Celment MD 100 mL/hr at 04/28/17 0642 500 [...] 0348 Gram negative sepsis + BC in [place] results yesterday no help yet RN to check daily until final results Hepatic cirrhosis, unspecified hepatic cirrhosis type Chronic hepatitis C without hepatic coma (followed at [facility] treated 4 months ago with un [...] intervention might need to consider sending to [place] due to higher risk Addendum (04/28/2017 12:49) Cardiac cath circumflex culprit lesion is tortuous and might be able to manage medically bu t if needs intervention would be rotoblation. I spoke with Dr Sharma and consensus is to sent to tertiary center. I called [facility] no ERCP available until Wednesday and I called [facility] Hear t they have waiting list but will call me back.I cancelled the CT to look for varices since we are in process of arranging transfer. Addendum (04/28/2017 16:03) [facility] no ERCP Doc till Wednesday [facility] no bed [facility] will take him (I [...] for input(s): IRON, TIBC, PCTSAT, FERRITIN, TSH, CSUMUYWI55, FOLATE in the last 168 hours. Inflammatory [...] ABG No results for input(s): PHART, PO2ART, CYM4TPF, XNE7TWO, BEART, L6VZZIWJ in the last 168 h ours. No results for input(s): SPECSOURCE, PHPOCB, PCO2, PO2, HCO3, TCO2, BEART, DUPV5TPD in the last 168 hours. Drug of [...] STONE. COMPARISON: Multiple priors. PROTOCOL: Coronal T2 php mysql developer, axial T2 php mysql developer, coronal 3D respiratory triggered, coronal T2 [...] Procedure Component Value Units Date/Time Culture, MRSA [[id number]] Collected: 04/27/17 0222 Order Status: Canceled Lab Status: No result Specimen: Respiratory from Nares Culture, MRSA [[id number]] Collected: 04/27/17 0151 Order Status: Completed Lab Status: Final result Updated: 04/28/17704 Specimen: Respiratory from Nares Culture Negative for MRSA by chromogenic agar method PROCEDURES AND CONSULTS: Cardiac Cath Dr Zachary Pratt PENDING RESULTS: DISPOSITION AND TRANSFER INSTRUCTIONS: Condition: Patient being transferred with condition improved NPO for now Going to [facility] to Dr Mely Quiroga MD [facility] [phone] Triage pager [phone] (this is a shared pager and is carried 07/09 by a Hospitalist) Personal iPhone Email [email or web address] Greater than 30 minutes were spent on discharge and coordination of post-hospital care. Electronically signed by: Paul Quiroga MD, 04/28/2017 16:08 [facility] (dot meytime meycritical meycontact) Reference. This [...] this chart may have been created with [employer] recognition software. Occasi onal wrong-word or sound-alike [...] might be different fro m the original. [place] HOSPITALIST PROGRESS NOTE Patient: Bret Espinal Jr. : 1955: Age: 61 y.o. MedRec: [id number] PCP: Shakir Monzon DO Admission date: 04/26/2017 [...] for input(s): IRON, TIBC, PCTSAT, FERRITIN, TSH, [id number], FOLATE in the last 168 hours. Inflammatory [...] ABG No results for input(s): PHART, PO2ART, WOP7SKC, DDW4KPY, BEART, O9NUGNPI in the last 168 h ours. No results for input(s): SPECSOURCE, PHPOCB, PCO2, PO2, HCO3, TCO2, BEART, MSYE1AAL in the last 168 hours. Drug of [...] dot micro, for reference below is dot [id number] URSR Microbiology Results (72 hrs) Procedure Component Value Units Date/Time Culture, MRSA [[id number]] Collected: 04/27/17 0151 Order Status: Completed Lab [...] ONE. COMPARISON: Multiple priors. PROTOCOL: Coronal T2 php mysql developer, axial T2 php mysql developer, coronal 3D res piratory triggered, coronal [...] L/min (dot meyvent) Subjective CC Tfer from [place] for Chest and Abd pain with U/S [...] hepatitis C without hepatic coma (followed at [facility] treated 4 months ago with un [...] intervention might need to consider sending to [place] due to higher risk Addendum (04/28/2017 12:49) Cardiac cath circumflex culprit lesion is tortuous and might be able to manage medically bu t if needs intervention would be rotoblation. I spoke with Dr Sharma and consensus is to sent to tertiary center. I called [facility] no ERCP available until Wednesday and I called [facility] t they have waiting list but will call me back.I cancelled the CT to look for varices since we are in process of arranging transfer. Addendum (04/28/2017 16:03) [facility] no ERCP Doc till Wednesday [facility] no bed [facility] take [facility] (I told patient and family) Dr Mely Alexander wanted extra Abx so I ordered Pharmacy to give one dose Cefepime In summary he had several days of Chest and Abd pain and [facility] saw him in ER and later again [...] meycritical meysign) Paul Quiroga MD 04/28/2017 8:03 [facility] Reference. This is NOT part of [...] this chart may have been created with [employer] voice recognition software. Occasi onal wrong-word or sound-alike substitutions may have occurred due to the inherent haas itations of voice recognition software. 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 Best possible STATIONARY ENGINEER REFRIGERATION medication list after pharmacy review: @[email or web address]@ Medication review performed and electronically signed by Ana Laura Coelho, Tourist Information Officer 19:50 [facility] 04/27/2017 20:05 RTMeyerPaul MD - 04/27/2017 8:39 AM PDT [place] HOSPITALIST PROGRESS NOTE Patient: Bret Espinal Jr. : 1955: Age: 61 y.o. MedRec: [id number] PCP: Shakir Monzon DO Admission date: 04/26/2017 [...] for input(s): IRON, TIBC, PCTSAT, FERRITIN, TSH, YVRYNBDI87, FOLATE in the last 168 hours. Inflammatory [...] ABG No results for input(s): PHART, PO2ART, QIM5LFS, VXU8DUT, BEART, M9NMHGXJ in the last 168 h ours. No results for input(s): SPECSOURCE, PHPOCB, PCO2, PO2, HCO3, TCO2, BEART, LDXF3MCD in the last 168 hours. Drug of [...] dot micro, for reference below is dot [id number] URSR Microbiology Results (72 hrs) Procedure Component Value Units Date/Time Culture, MRSA [[id number]] Collected: 04/27/17 0151 Order Status: Sent Lab Status: In process Updated: 04/27/17218 Specimen: Respiratory from Nares Radiology results (more choices using dot risresults) Mri Mrcp Liver Wo Contrast Result Date: 04/26/2017 MRI MRCP LIVER WO CONTRAST 04/26/2017 12:17 PM HISTORY:?BILIARY OBSTRUCTION, RULE OUT CBD ST ONE. COMPARISON: Multiple priors. PROTOCOL: Coronal T2 php mysql developer, axial T2 php mysql developer, coronal 3D res piratory triggered, coronal [...] L/min (dot meyvent) Subjective CC Tfer from [place] for Chest and Abd pain with U/S [...] 0348 Gram negative sepsis + BC in [place] Hepatic cirrhosis, unspecified hepatic cirrhosis type Chronic hepatitis C without hepatic coma (followed at [facility] treated 4 months ago with un [...] texted Dr Pratt to call me (he customer acquisition manager for sgy) Troponin recheck What untoward reaction? [...] meycritical meysign) Paul Quiroga MD 04/27/2017 8:40 [facility] Reference. This is NOT part of [...] this chart may have been created with [employer] voice recognition software. Occasi onal wrong-word or [...] HAIDER | | | | | | [id number] | | | | | | | [...] ST. | [address] | [place], [place] | [phone] | | [facility] | | [address] | | | - LABORATORY | | [...] : 1955MEDICAL | | | RECORD NUMBER: [id number] OF PROCEDURE: 04/28/2017 | | | | | | PRIMARY CARE PROVIDER: Shakir Monzon, | | | ETHELRIGABRIEL FUR CLIPPER: Bright Triana MD. PRE-PROCEDURE DIAGNOSIS: | | [...] | | | conclusions. Bright Triana MD [facility] | | | CenterDATE/TIME: 04/28/2017 11:273 11:27 [...] | |Bright Triana MD | | |[facility] | | |DATE/TIME: 04/28/2017 11:27 | | [...] + | [facility] | [address] | [place] | [phone] | | [facility] | | [address] | | | - LABORATORY | | [...] | | | FILTRATION | mL/min/1.73m2 | [facility] | | | [place] | RATE,ESTIMATED | | MEDICAL | | | | mL/min/1.12h5Quxf than | | CENTER - | | [...] | | | | | mg/dL | [facility] | | | | | | MEDICAL | | | | | | CENTER - | | | | | | LABORATORY | | + + + + + + | Albumin | 2.3 (L) | 3.2 - 5.0 g/dL | [facility] | | | | | | [facility] | | | | | | MEDICAL [...] [address] | [place] | [phone] | | [facility] | | [address] | | | - LABORATORY | | [...] [address] | [place] | [phone] | | [facility] | | [address] | | | - LABORATORY | | [...] | | | | Reference | | [facility] | | | | Ranges:0.00-0.06 = | [...] + + | Performing | Address | City/State/[facility] | Phone Number | | Organization | | | | + + + + + | [facility] | [address] | [place] | [phone] | | [facility] | | [address] | | | - LABORATORY | | [...] [address] | [place] | [phone] | | [facility] | | [address] | | | - LABORATORY | | [...] [address] | [place] | [phone] | | [facility] | | [address] | | | - LABORATORY | | [...] [address] | [place] | [phone] | | [facility] | | [address] | | | - LABORATORY | | [...] Demographics Patient Name DIPESH | | | [facility] Room Number 454 JR. | | | Patient Number [id number] Date of Study | | | 04/27/2017 Visit Number [id number] Accession | | | [id number] Referring Physician LEATHA IVY Number | | | Date of 1955 Fisheries Technician | | | Ted Blake Age 61 year(s) | | | Interpreting MONICA LUNA | | | Stand Up Comedian CHERYL ANDERSON, | | | | | | Gender Male Nurse | | | Stress Inspector Aligning | | | Procedure Type of Study [...] Volume: 84.98 ml | | | EF Hhjubicku15% Left Ventricle Diastolic | | | Dimension: [...] Volume: 84.98 ml | | | EF Osuexuowq29% | | | | | | Left [...] Report | | (TTE) Demographics Patient Name [facility] Room Number 454 | | JR. Patient Number [id number] Date of Study 04/27/2017 Visit Number | | [id number] Referring Physician LEATHA IVY | | Number Date of 1955 Fisheries Technician Ted Lozano Age | | 61 year(s) Interpreting MONICA LUNA | | Stand Up Comedian CHERYL ANDERSON, | | Gender Male Nurse [...] LA Volume: | | 84.98 ml EF Auaqmtyyf54% Left Ventricle | | Diastolic Dimension: 5.83 [...] LA Volume: 84.98 ml | | EF Pxsmwkhqi54% | | | | Left Ventricle | [...] [address] | [place] | [phone] | | [facility] | | [address] | | | - LABORATORY | | [...] + | [facility] | [address] | [place] | [phone] | | [facility] | | [address] | | | - LABORATORY | | [...] mL/min/1.73m2 | [facility] | | | [place] | RATE,ESTIMATED | | MEDICAL | | | | mL/min/1.02a5Ttjm than | | CENTER - | | [...] [address] | [place] | [phone] | | [facility] | | [address] | | | - LABORATORY | | [...] + | [facility] | [address] | [place] | [phone] | | [facility] | | [address] | | | - LABORATORY | | [...] [address] | [place] | [phone] | | [facility] | | [address] | | | - LABORATORY | | [...] | | | | ROXANNA RUEDA MD ([id number]) | | | | | | on [...] + | [facility] | [address] | [place] | [phone] | | [facility] | | [address] | | | - LABORATORY | | [...] [address] | [place] | [phone] | | [facility] | | [address] | | | - LABORATORY | | [...] ST. | [address] | [place] | [phone] | | [facility] | | [address] | | | - LABORATORY | | [...] [address] | [place] | [phone] | | [facility] | | [address] | | | - LABORATORY | | [...] | 0.92 | 0.60 - 1.30 | [facility] | | | | | [...] mL/min/1.73m2 | [facility] | | | [place] | RATE,ESTIMATED | | MEDICAL | | | | mL/min/1.15a8Sqqq than | | CENTER - | | [...] [address] | [place] | [phone] | | [facility] | | [address] | | | - LABORATORY | | [...] + | [facility] | [address] | [place] | [phone] | | [facility] | | [address] | | | - LABORATORY | | [...] [address] | [place] | [phone] | | [facility] | | [address] | | | - LABORATORY | | [...] + | [facility] | [address] | [place] | [phone] | | [facility] | | [address] | | | - LABORATORY | | [...] ST. | [address] | [place], [place] | [phone] | | [facility] | | [address] | | | - LABORATORY | | [...] + | [facility] | [address] | [place] | [phone] | | [facility] | | [address] | | | - LABORATORY | | [...] | 0.90 | 0.60 - 1.30 | [facility] | | | | | mg/dL | [facility] | | | | | | MEDICAL | | | | | | CENTER - | | | | | | LABORATORY | | + + + + + + | eGFR if not | >60Comment: GLOMERULAR | >=60 | [facility] | | | | FILTRATION | mL/min/1.73m2 | [facility] | | | [place] | RATE,ESTIMATED | | MEDICAL | | | | mL/min/1.22z0Fzmv than | | CENTER - | | [...] + | [facility] | [address] | [place] | [phone] | | [facility] | | [address] | | | - LABORATORY | | [...] + | [facility] | [address] | [place] | [phone] | | [facility] | | [address] | | | - LABORATORY | | [...] priors. | | | PROTOCOL: Coronal T2 php mysql developer, axial T2 php mysql developer, coronal 3D respiratory | | | [...] STONE.COMPARISON: Multiple | | priors.PROTOCOL: Coronal T2 php mysql developer, axial T2 php mysql developer, coronal 3D respiratory | | triggered,coronal [...] | | | |Dictated and Signed by: Waletr Jacob MD | | Electronically signed: 04/26/2017 [...] | | | | ROXANNA RUEDA MD ([id number]) | | | | | | on [...] | | | | | NPO, Daytime 2136-3130 Use NIGHT | | | | | | | DOSE for doses scheduled: | | | | | | | HS, 3AM, Nighttime 7554-6435, | | | | | | + [...]
--- OUTSIDE RECORDS SUMMARY | ~2019-01-07 | XMS | Encounter Summary ---
Demographics + + + | Address | [address] | | | [place] [address] | + + + | Home Phone [...] Author | [facility] [employer] [facility] | + + + | Organization | [facility] [employer] [facility] [...] Providers + +------+ + | Care Supervisor [place] Name | Role | Phone | + [...] | | | | | | [address] [place], [place] | | | | | | [address] | | | | | | [phone] | | | +--------+ + + + [...]
--- OUTSIDE RECORDS SUMMARY | ~2019-01-07 | XMS | Encounter Summary ---
Demographics + + + | Address | [address] | | | [place] [address] | + + + | Home Phone [...] Team Providers + +------+ + | Care Organic Preparation Technician Name | Role | Phone | + +------+ + | Mookie Castro PA-C | PCP | | + +------+ + Encounter Details +--------+ + + + + | Date | Type | Department | Care Team | Description | +--------+ + + + + | 07/09/ | Orders Only | [facility] | [place], | Chronic hepatitis C | | 2015 | | GASTROENTEROLOGY | Lucila, SCHOOL ADMISSIONS REPRESENTATIVE [address] | without hepatic coma | | | | [address] [place] | [place], [place] [address] | (HCC); Elevated | | | | [address] [place], [place] | [place], [place] | AFP; Alcohol abuse; | | | | [address] | [address] | Marijuana abuse; | | | | [phone] | | Elevated | | | | | | triglycerides with | | | | | | high cholesterol; | | | | | | Thrombocytopenia | | | | | | (HCC); 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
--- OUTSIDE RECORDS SUMMARY | ~2019-01-07 | XMS | Encounter Summary ---
Demographics + + + | Address | [address] | | | [place] [address] | + + + | Home Phone [...] | Author | [facility] | + + + | Organization | [facility] [employer] [facility] | + + + | Address | Unknown | + + + | Phone | Unavailable | + + + Support + + +---------+ + | Name | Relationship | Address | Phone | + + +---------+ + | Mary Medellin | ECON | Unknown | | + + +---------+ + Care Team Providers + +------+ + | Care Rn Vascular Name | Role | Phone | + +------+ + | Shakir Monzon MD | PCP | | + +------+ + Encounter Details +--------+ + + + + | Date | Type | Department | Care Team | Description | +--------+ + + + + | 04/26/ | Document-Sc | Health Information | Unknown . | | | 2018 | anned | Services [id number] | | | | | | [address] | | | | | | Mailcode: [id number] | | | | | | [facility] | | | | | | [place], [place] | | | | | | [address] | | | | | | [phone] | | | +--------+ + + + [...]
--- OUTSIDE RECORDS SUMMARY | ~2019-01-07 | XMS | Encounter Summary ---
Demographics + + + | Address | [address] | | | [place] [address] | + + + | Home Phone [...] + + + | Author | [facility] | + + + | Organization | [facility] | + + + | Address | Unknown | + + + | Phone | Unavailable | + + + Support + + +---------+ + | Name | Relationship | Address | Phone | + + +---------+ + | Mary Medellin | ECON | Unknown | | + + +---------+ + Care Team Providers + +------+ + | Care Aesthetician Name | Role | Phone | + [...] | | | | | | [place] [address] | | | +--------+--------+ + + + [...]
--- OUTSIDE RECORDS SUMMARY | ~2019-01-07 | XMS | Encounter Summary ---
Demographics + + + | Address | [address] | | | [place] [address] | + + + | Home Phone | | + + + | Preferred Language | Unknown | + + + | Marital Status | Single | + + + | Baptism Affiliation | NRP | + + + | Race | or | + + + | Ethnic Group | Not or | + + + Author + + + | Author | [facility] | + + + | Organization | [facility] [facility] | + + + | Address | Unknown | + + + | Phone | Unavailable | + + + Support + + +---------+ + | Name | Relationship | Address | Phone | + + +---------+ + | Mary Medellin | ECON | Unknown | | + + +---------+ + Care Team Providers + +------+ + | Care Wedger And Gluer Name | Role | Phone | + [...] | | | | CONSULT TO | Arthur | [place], [place] | | | | | CARDIOLOGY | [address] | [address] | | | | | | [place], [place] | Phone: | | | | | | [address] | [phone] | | | | | | Phone: | Fax: | | | | | | [phone] | [phone] | | | | | | Fax: | | | | | | | [phone] | | +--------+--------+ + + + + Encounter Details +--------+---------+ + + + | Date | Type | Department | Care Team | Description | +--------+---------+ + + + | 11/01/ | Office | Cardiology General | Sharon Sanderson | Dyspnea, unspecified | | 2018 | Visit | at [facility] [address] | SHENA [address] | type (Primary Dx); | | | | [address] Mailcode: | [address] [place], | Coronary artery | | | | [facility] Center for | [place] [address] | disease involving | | | | [facility], | [phone] | [place] coronary | | | | Building | | artery, angina | | | | floor [place], [place] | | presence | | | | [address] | | unspecified, | | | | [phone] | | unspecified whether | | | | | | [place] or | | | | | | [...] He was transferred to another facility in [place] and went into atrial fibrillation. He had an angiogram at [place] which showed severe CAD and medical treatment [...] inferior Q waves Outside records reviewed from [facility] (in media tab) Echo 10/27/17: [...] well as continued risk for heart disease, [place]. Joyce ent advised to quit smoking prior to surgical intervention, preferably 1 month prior for opt imum outcome. Patient verbalized understanding of plan of care and instructions as outlined. A report of this preoperative evaluation will be sent to PCP Shakir Monzon MD and referring provider/surgeon Clinton Morillo MD and Michelle Gan MD. CARDIOLOGY - PREVENTIVE [address] Mailcode: [id number] [id number] [phone] signed by Sharon Sanderson PA-C at 11/01/2017 [...] DEPT OF | [address] | [place], [place] | | | CARDIOLOGY | [address] | [address] | | + + + + + documented in this encounter Visit Diagnoses + + | Diagnosis | + + | Dyspnea, unspecified type - Primary | + + | Coronary artery disease involving [place] coronary artery, angina presence unspecified, | | unspecified whether [place] or transplanted heart | + + | Essential hypertension | + + | Pre-operative cardiovascular examination | + + documented in this encounter
--- OUTSIDE RECORDS SUMMARY | ~2019-01-07 | XMS | Encounter Summary ---
Demographics + + + | Address | [address] | | | [place] [address] | + + + | Home Phone [...] | Author | [facility] | + + + | Organization | [facility] | + [...] Team Providers + +------+ + | Care Activities Director Name | Role | Phone | [...] | | | | | | [place] [address] | | | +--------+--------+ + + + [...]
--- OUTSIDE RECORDS SUMMARY | ~2019-01-07 | XMS | Encounter Summary ---
Demographics + + + | Address | [address] | | | [place] [address] | + + + | Home Phone | | + + + | Preferred Language | Unknown | + + + | Marital Status | Single | + + + | Catholic Affiliation | Unknown | + + + | Race | Unknown | + + + | Ethnic Group | Unknown | + + + Author + + + | Author | [facility] | | | and [place] | + + + | Organization | [facility] | | [...] Team Providers + +------+ + | Care Boatbuilder Apprentice Wood Name | Role | Phone | + [...] + + | 07/27/ | Hospital | [facility] | Donell Hunt MD | Esophageal varices | | 2017 | Encounter | MED CTR MP INTRA OP | [address] | determined by | | | | [address] | [place], [place] | endoscopy ([facility]) | | | | [place] | [address] | | | | | [address] | [phone] | | | | | [phone] | | | +--------+ + + + [...] the physician who did your procedure at [phone] if you have any questions or experience any of the following: ? Increasing abdominal pain, nausea, or vomiting. ? Chills and fever over 101F. ? New abdominal swelling or bloating. ? Signs of rectal bleeding (black or red stool). If you cannot get a hold of your physician, then call the [facility] [phone] . If necessary, report to the Emergency Department at [facility]. Quit smoking: If you smoke or [...] [place] | | | | | | [address] | | | | | | | [...] 07/27/2016 | PROVATION | | 8:52 AMMRN: [id number] #: [id number] of : | | | 6Admit Type: AmbulatoryAge: 60Room: [facility] 02Gender: MaleNote | | | Status: FinalizedAttending MD: Donell Hunt , [facility]rocedure: | | | Upper GI endoscopyIndications: For therapy of | | | esophageal varicesProviders: Donell Hunt MD, | | | Shirley Martinez RN, Mariama Monterroso | | | Thom, Leather Fitter, Manuel Lindo MD | | | (Anesthesia [...] the | | | anesthesiologist and the medical records field technician in the pre-procedure area in the [...] | In: 9:04:15 AMScope Out: 9:13:44 AM [facility] | | | [place], [address] [place] [address] | | | instructions were provided to [...] |Scope Out: 9:13:44 AM | | | [facility], [address] [place] [address] | | | [address] | | + + -+ + +---------+ [...]
--- OUTSIDE RECORDS SUMMARY | ~2019-01-07 | XMS | Encounter Summary ---
Demographics + + + | Address | [address] | | | [place] [address] | + + + | Home Phone [...] Team Providers + +------+ + | Care Channel Director Name | Role | Phone | [...] [place] | | | | | | [address] | | | | | | [phone] | | | +--------+ + + + [...] | | | | | [place] | | | | | | [address] | | | | | | | | +--------+---------+ + + + documented as of this encounter Visit Diagnoses Not on filedocumented in this encounter"
--- OUTSIDE RECORDS SUMMARY | ~2019-01-07 | XMS | Encounter Summary ---
Demographics + + + | Address | [address] | | | [place] [address] | + + + | Home Phone [...] | Author | [facility] | | | and [place] | + + + | Organization | [facility] | | [...] Team Providers + +------+ + | Care Timekeeper Name | Role | Phone | + [...] + | 11/09/ | Telephone | [facility] | Donell Hunt MD | EGD | | 2017 | | GASTROENTEROLOGY | [address] | | | | | [address] [facility] | [place], [place] | | | | | [address] [place] | [address] | | | | | [address] | [phone] | | | | | [phone] | | | +--------+ + + + [...] | | | | | [place] | | | | | | [address] | | | | | | | | +--------+---------+ + + + documented as of this encounter Visit Diagnoses Not on filedocumented in this encounter"
--- OUTSIDE RECORDS SUMMARY | ~2019-01-07 | XMS | Encounter Summary ---
Demographics + + + | Address | [address] | | | [place] [address] | + + + | Home Phone | | + + + | Preferred Language | Unknown | + + + | Marital Status | Single | + + + | Taoism Affiliation | Unknown | + + + [...] Team Providers + +------+ + | Care Sugar Mixer Name | Role | Phone | [...] | Hepatic | [place], | [address] | | | | | cirrhosis, | [place], | [place], | | | | | unspecified | [facility] [address] | [place] | | | | | hepatic | [address], [place] | [address] | | | | | cirrhosis | [address] | Phone: | | | | | type (HCC) | [place] | [phone] | | | | | Elevated AFP | [address] | Fax: | | | | | Procedures | Phone: | [phone] | | | | | MRI Liver | [phone] | | | | | | w wo | Fax: | | | | | | Contrast [place] | [phone] | | | | | | MRI, | | | | | | | ABDOMEN, | | | | | | | COMBO | | | +--------+--------+ + + + + Encounter Details +--------+ + + + + | Date | Type | Department | Care Team | Description | +--------+ + + + + | 03/25/ | Orders Only | [facility] [place] | [facility], | Hepatic cirrhosis, | | 2017 | | GASTROENTEROLOGY | [place] [address] | unspecified hepatic | | | | [address] [place] | [place], [address] | cirrhosis type (HCC) | | | | [address] [place], [place] | [place], [place] | (Primary Dx); | | | | [address] | [address] | Elevated AFP | | | | [phone] | | | +--------+ + + + [...] [place] | | | | | | [address] | | | | | | | | +--------+---------+ + + + documented as of this encounter Results MRI Liver w wo Contrast (04/06/2016 12:11 PM PST) + + | Specimen | + + | | + + + + + | Narrative | Performed At | + + + | EXAM: MRI LIVER W WO CONTRAST dated 04/06/2016 10:58 AM HISTORY: | [facility] | | elevated AFP and cirrhosis of liver COMPARISON: Ultrasound of | [facility] | | the abdomen dated November 27, 2015. CT abdomen abdomen and pelvis | [facility] | | dated July 25, 2014. Both [...] | [address] | [address] | [place] | [phone] | | [facility] | | [address] | | | - IMAGING | | | | + + + + + documented in this encounter Visit Diagnoses + + | Diagnosis | + + | Hepatic cirrhosis, unspecified hepatic cirrhosis type (HCC) - Primary | + + | Elevated AFP Other nonspecific findings on examination of blood | + + documented in this encounter"
--- OUTSIDE RECORDS SUMMARY | ~2019-01-07 | XMS | Encounter Summary ---
Demographics + + + | Address | [address] | | | [place] [address] | + + + | Home Phone [...] Author | [facility] | + + + | Organization | [facility] [employer] [facility] | + + + | Address | Unknown | + + + | Phone | Unavailable | + + + Support + + +---------+ + | Name | Relationship | Address | Phone | + + +---------+ + | Mary Medellin | ECON | Unknown | | + + +---------+ + Care Team Providers + +------+ + | Care Circular Shear Operator Name | Role | Phone | [...] Record | | 2017 | | at [facility] [address] | | Review (GEN | | | | Rolando Rivas Mailcode: | | Checklist ) | | | | [address] | | | | | | Health and [facility], | | | | | | [address] | | | | | | [place], [place] | | | | | | [address] | | | | | | [phone] | | | +--------+ + + + [...]
--- OUTSIDE RECORDS SUMMARY | ~2019-01-07 | XMS | Encounter Summary ---
Demographics + + + | Address | [address] | | | [place] [address] | + + + | Home Phone [...] Team Providers + +------+ + | Care Golf Sales Manager Name | Role | Phone | + +------+ + | Shakir Monzon DO | PCP | | + +------+ + Encounter Details +--------+ + + + + | Date | Type | Department | Care Team | Description | +--------+ + + + + | 03/23/ | Episode | [facility] [place] | Brandi Serrano, | | | 2016 | Changes | GASTROENTEROLOGY | RN | | | | | [address] [place] | | | | | | [address] [place] | | | | | | [address] | | | | | | [phone] | | | +--------+ + + + [...] | | | | | [place] | | | | | | [address] | | | | | | | | +--------+---------+ + + + documented as of this encounter Visit Diagnoses Not on filedocumented in this encounter"
--- OUTSIDE RECORDS SUMMARY | ~2019-01-07 | XMS | Encounter Summary ---
Demographics + + + | Address | [address] | | | [place] [address] | + + + | Home Phone [...] Team Providers + +------+ + | Care Hobber Name | Role | Phone | + [...] | MED CTR EXTERNAL | MD Tamie [address] | | | | | IMAGING | Stefanie [place] | | | | | [phone] | [place] [address] | | +--------+ + + + + [...] [place] | | | | | | [address] | | | | | | | [...]
--- OUTSIDE RECORDS SUMMARY | ~2019-01-07 | XMS | Encounter Summary ---
Demographics + + + | Address | [address] | | | [place] [address] | + + + | Home Phone | | + + + | Preferred Language | Unknown | + + + | Marital Status | Single | + + + | Mandaen Affiliation | Unknown | + + + [...] Providers + +------+ + | Care Telephone Service Representative Name | Role | Phone | [...] | | | | | | | [place] | | | | | | | ESOPHAGOGAST | | | | | | | RODUODENOSCO | | | | | | | PY TRANSORAL | | | | | | | DIAGNOSTIC | | | | | | | [place] EGD | | | | | | | TRANSORAL | | | | | | | BIOPSY | | | | | | | SINGLE/MULTI | | | | | | | PLE NC | | | | | | | ANESTH,UGI | | | | | | | ENDOSCOPY | | | | | | | EGD | | | +--------+--------+ + + + + Encounter Details +--------+---------+ + + + | Date | Type | Department | Care Team | Description | +--------+---------+ + + + | 10/26/ | Surgery | [facility] | Donell Hunt MD | EGD | | 2017 | | MED CTR MP INTRA OP | [address] | | | | | [address] | [place], [place] | | | | | [place], [place] | [address] | | | | | [address] | [phone] | | | | | [phone] | | | +--------+---------+ + + + [...] the test. This includes: All prescription medicines Htjm-pye-bdhoxuh medicines such as aspirin or ibuprofen Street [...] heart or lung disease Date Last Reviewed: 09/10/201419994135-3965 [employer]. [address] [place] [address]. All righ ts reserved. This information is [...] what medicines and drugsyou take. This includes bswr-xfd-vxr nter medicines, herbs, supplements, alcohol or other [...] 24 hours after surgery, have a trusted [facility] member or spouse act on your behalf. Avoid alcohol. Havea responsible adultstay with you.He or shecan watch for problems and help ke ep you safe. Date Last Reviewed: 01/16/201619995285-9675 [employer]. [address] [place] [address], [place] [address]. All righ ts reserved. This information is [...] the physician who did your procedure at [phone] if you have any questions or experience any of the following: ? Increasing abdominal pain, nausea, or vomiting. ? Chills and fever over 101F. ? New abdominal swelling or bloating. ? Signs of rectal bleeding (black or red stool). If you cannot get a hold of your physician, then call the [facility] [phone] . If necessary, report to the Emergency Department at [facility]. Quit smoking: If you smoke or [...] | | | | | [place] | | | | | | [address] | | | | | | | [...] | [facility] | | GastroenterologyPatient Name: Bret EspinalProcedure Date: 12/10/2016 | PROVATION | | 8:51 AMMRN: [id number] #: [id number] of : | | | 1955dmit Type: AmbulatoryAge: 61Room: [facility] 01Gender: MaleNote | | | Status: FinalizedAttending MD: Donell Hunt , [facility]rocedure: | | | Upper GI endoscopyIndications: Follow-up of esophageal | | | varicesProviders: Donell Hunt MD, Jimmy | | | SADA Cottrell, Mariama Tomas, | | | Composition Professor, Josiah Ortiz MD (Anesthesia Staff)Referring MD: | [...] the anesthesiologist and the | | | weatherization field technician in the pre-procedure area in [...] | | 8:59:51 AMScope Out: 9:07:17 AM [facility] | | | [place], [address] [place] [address] | | | - Resume previous diet. [...] |Scope Out: 9:07:17 AM | | | [facility], [address], [place] | | | [address] | | + + -+ + +---------+ [...] [address] | [place] | [phone] | | [facility] | | [address] | | | - LABORATORY | | [...] | | | negative for definite dysplasia. JVR:[facility]:C2NR GROSS DESCRIPTION: | | | Received in formalin labeled "Bret Newmanson, distal esophagus biopsy" | | | are two pink-flowers tissue fragments measuring from 0.3-0.35 cm, | | | submitted, all in (A1). ka:CLR:[facility] PERFORMING LABORATORY: Tissue | | | processing and slide preparation were performed by [facility], | | | [address], [place] [address] (Special Police: | | | Catrachito Ortiz M.D. [place]#: [id number]). Professional interpretation | | | was performed by [facility], [facility] | | | [place], [address], [place] [address] (Medical | | | Director: Catrachito Ortiz M.D.; CLIA#: [id number]). | | | Diagnostician: Catrachito Ortiz MD Pathologist Electronically | | | Signed 12/11/2016 | | + + + + +---------+ + + | Performing | Address | City/State/Rustcode | Phone Number | | Organization | | | | + +---------+ + + | [place] [facility] | | | | | [facility] | | | | + +---------+ + [...]
--- OUTSIDE RECORDS SUMMARY | ~2019-01-07 | XMS | Encounter Summary ---
Demographics + + + | Address | [address] | | | [place] [address] | + + + | Home Phone [...] [facility] | + + + | Organization | [facility] DNS:[employer] [facility] | + [...] Providers + +------+ + | Care Patient Observer Name | Role | Phone | + +------+ + | Shakir Monzon MD | PCP | | + +------+ + Encounter Details +--------+ + + + + | Date | Type | Department | Care Team | Description | +--------+ + + + + | 11/29/ | Solar Energy System Installer Helper | Digestive Health | Clinton Morillo, | Gallbladder | | 2018 | | Center at [facility] [address] | [address] | perforation (Primary | | | | [place] | [address] | Dx) | | | | Mailcode: Center | [place], [place] | | | | | for [facility] and | [address] | | | | | [facility] 2 | [phone] | | | | | [place], [place] | | | | | | [address] | | | | | | [phone] | | | +--------+ + + + [...]
--- OUTSIDE RECORDS SUMMARY | ~2019-01-07 | XMS | Encounter Summary ---
Demographics + + + | Address | [address] | | | [place] [address] | + + + | Home Phone [...] | Author | [facility] [employer] [facility] | + + + | Organization | [facility] [employer] [facility] [...] Team Providers + +------+ + | Care Relief Map Modeler Name | Role | Phone | + [...] Request | | 2018 | | at [facility] [address] | [place] [address] | (DUR) | | | | Rolando Rivas Mailcode: | Rolando Rivas [place], | | | | | [address] [address] | | | | | [facility], | [phone] | | | | | [facility] | | | | | | floor [place], [place] | | | | | | [address] | | | | | | [phone] | | | +--------+--------+ + + + [...]
--- OUTSIDE RECORDS SUMMARY | ~2019-01-07 | XMS | Encounter Summary ---
Demographics + + + | Address | [address] | | | [place] [address] | + + + | Home Phone [...] Providers + +------+ + | Care Human Resources Consultant Name | Role | Phone | [...] + + | 08/03/ | Emergency | [facility] | Josiah Victor | Abdominal pain, | | 2018 | | MED CTR EMERGENCY | Arnold Gerard MD | unspecified | | | | CENTER [address] | [address] | abdominal location | | | | [place], [place] | [place], [place] | (Primary Dx); | | | | [address] | [address] | Calculus of | | | | [phone] | | gallbladder and bile | | | | | Agustin Almonte MD | duct with acute | | | | | [address] | cholecystitis | | | | | [place] [address] | without obstruction; | | | | | [phone] | Hepatic cirrhosis, | | | | [...] | | | | | [place] | | | | | | [address] | | | | | | | [...] reported to the ER staff by the [facility] Imaging radiologist on July | | | [...] ST. | [address] | [place] | [phone] | | [facility] | | [address] | | | - LABORATORY | | [...] + | [facility] | [address] | [place] | [phone] | | [facility] | | [address] | | | - LABORATORY | | [...] [address] | [place] | [phone] | | [facility] | | [address] | | | - LABORATORY | | [...] [address] | [place] | [phone] | | [facility] | | [address] | | | - LABORATORY | | [...] + | [facility] | [address] | [place] | [phone] | | [facility] | | [address] | | | - LABORATORY | | [...] ST. | [address] | [place] | [phone] | | [facility] | | [address] | | | - LABORATORY | | [...] [address] | [place] | [phone] | | [facility] | | [address] | | | - LABORATORY | | [...] | | | | | | [employer] | | | | | [...] + + | Performing | Address | City/State/[facility] Memorial Hospitalcode | Phone Number | | Organization | | | | + + + + + | [facility] | [address] | [place] | [phone] | | [facility] | | [address] | | | - LABORATORY | | [...] [address] | [place] | [phone] | | [facility] | | [address] | | | - LABORATORY | | [...] + | [facility] | [address] | [place] | [phone] | | [facility] | | [address] | | | - LABORATORY | | [...] mL/min/1.73m2 | [address] | | | UGANDAN | RATE,ESTIMATED | | MEDICAL | | | | mL/min/1.04p3Fxfn than | | CENTER - | | [...] [address] | [place] | [phone] | | [facility] | | [address] | | | - LABORATORY | | [...] [address] | [place] | [phone] | | [facility] | | [address] | | | - LABORATORY | | [...] ST. | [address] | [place] | [phone] | | [facility] | | [address] | | | - LABORATORY | | [...] | | | | ROXANNA RUEDA MD ([id number]) | | | | | | on [...]
--- OUTSIDE RECORDS SUMMARY | ~2019-01-07 | XMS | Encounter Summary ---
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 [place] HOSPITALIST TRANSFER SUMMARY Pt. Name/Age/: Behzad [...] Surgical History: Procedure Laterality Date COLONOSCOPY 2012 [place] UPPER GASTROINTESTINAL ENDOSCOPY N/A 05/05/2016 Procedure: EGD; Surgeon: Donell Hunt MD; Location: [facility] MEDICAL PROCEDURE UNIT UPPER GASTROINTESTINAL ENDOSCOPY N/A 07/27/2016 Procedure: EGD; Surgeon: Donell Hunt MD; Location: [facility] MEDICAL PROCEDURE UNIT UPPER GASTROINTESTINAL ENDOSCOPY N/A 12/10/2016 Procedure: EGD; Surgeon: Donell Hunt MD; Location: [facility] MEDICAL PROCEDURE UNIT FAMILY HISTORY: family [...] 0348 Gram negative sepsis + BC in [place] results yesterday no help yet RN to check daily until final results Hepatic cirrhosis, unspecified hepatic cirrhosis type Chronic hepatitis C without hepatic coma (followed at [facility] treated 4 months ago with un [...] intervention might need to consider sending to [place] due to higher risk Addendum (04/28/2017 12:49) Cardiac cath circumflex culprit lesion is tortuous and might be able to manage medically bu t if needs intervention would be rotoblation. I spoke with Dr Sharma and consensus is to sent to tertiary center. I called [facility] no ERCP available until Wednesday and I called [facility] t they have waiting list but will call me back.I cancelled the CT to look for varices since we are in process of arranging transfer. Addendum (04/28/2017 16:03) [facility] no ERCP Doc till Wednesday [place] no bed [facility] will take him (I [...] for input(s): IRON, TIBC, PCTSAT, FERRITIN, TSH, [id number], FOLATE in the last 168 hours. Inflammatory [...] ABG No results for input(s): PHART, PO2ART, FAF1GGY, JOA0YOJ, BEART, S1TGXPUS in the last 168 h ours. No results for input(s): SPECSOURCE, PHPOCB, PCO2, PO2, HCO3, TCO2, BEART, REAW8ZVA in the last 168 hours. Drug of [...] STONE. COMPARISON: Multiple priors. PROTOCOL: Coronal T2 filenet admin, axial T2 filenet admin, coronal 3D respiratory triggered, coronal T2 thin [...] Procedure Component Value Units Date/Time Culture, MRSA [[id number]] Collected: 04/27/17 0222 Order Status: Canceled Lab Status: No result Specimen: Respiratory from Nares Culture, MRSA [[id number]] Collected: 04/27/17 0151 Order Status: Completed Lab Status: Final result Updated: 04/28/17 0705 Specimen: Respiratory from Nares Culture Negative for MRSA by chromogenic agar method PROCEDURES AND CONSULTS: Cardiac Cath Dr Zachary Pratt PENDING RESULTS: DISPOSITION AND TRANSFER INSTRUCTIONS: Condition: Patient being transferred with condition improved NPO for now Going to [facility] to Dr Mely Quiroga MD [facility] [phone] Triage pager [phone] (this is a shared pager and is carried 07/09 by a Hospitalist) Personal iPhone Email [email or web address] Greater than 30 minutes were spent on discharge and coordination of post-hospital care. Electronically signed by: Paul Quiroga MD, 04/28/2017 16:08 [facility] (dot meytime meycritical meycontact) Reference. [...] this chart may have been created with [employer] voice recognition software. Occasi onal wrong-word or [...] might be different fro m the original. [place] HOSPITALIST PROGRESS NOTE Patient: Behzad Espinal Jr. : 1955: Age: 61 y.o. MedRec: [id number] PCP: Shakir Monzon DO Admission date: 04/26/2017 [...] for input(s): IRON, TIBC, PCTSAT, FERRITIN, TSH, ILHOIVWT68, FOLATE in the last 168 hours. Inflammatory [...] ABG No results for input(s): PHART, PO2ART, WBR9MIR, NQA4MYT, BEART, I3RRCDCM in the last 168 h ours. No results for input(s): SPECSOURCE, PHPOCB, PCO2, PO2, HCO3, TCO2, BEART, EDSQ6BVR in the last 168 hours. Drug of [...] dot micro, for reference below is dot [id number] URSR Microbiology Results (72 hrs) Procedure Component Value Units Date/Time Culture, MRSA [[id number]] Collected: 04/27/17 0151 Order Status: Completed Lab [...] ONE. COMPARISON: Multiple priors. PROTOCOL: Coronal T2 filenet admin, axial T2 filenet admin, coronal 3D res piratory triggered, coronal T2 [...] L/min (dot meyvent) Subjective CC Tfer from [place] for Chest and Abd pain with U/S [...] 0348 Gram negative sepsis + BC in [place] results yesterday no help yet RN to check daily until final results Hepatic cirrhosis, unspecified hepatic cirrhosis type Chronic hepatitis C without hepatic coma (followed at [facility] treated 4 months ago with un [...] intervention might need to consider sending to [place] due to higher risk Addendum (04/28/2017 12:49) Cardiac cath circumflex culprit lesion is tortuous and might be able to manage medically bu t if needs intervention would be rotoblation. I spoke with Dr Sharma and consensus is to sent to tertiary center. I called [facility] no ERCP available until Wednesday and I called [facility] Hear t they have waiting list but will call me back.I cancelled the CT to look for varices since we are in process of arranging transfer. Addendum (04/28/2017 16:03) [facility] no ERCP Doc till Wednesday [place] no bed [facility] take him (I [...] meycritical meysign) Paul Quiroga MD 04/28/2017 8:03 [facility] Reference. This is NOT part [...] this chart may have been created with [employer] voice recognition software. Occasi onal wrong-word or sound-alike substitutions may have occurred due to the inherent haas itations of voice recognition software. Please read the chart carefully and recognize, using context, where these substitutions have occurred adea Sharlene Berkley, [facility] - 04/27/2017 8:05 PM PDT PHARMACY SERVICES: [...] list or bottles X Pharmacy list names: [facility] X Outside Information Vaccines up to [...] Prior to Admission Sig: Patient taking differently SUB ARC OPERATOR as: Metformin 1000 mg tab 1 tab by mouth twice daily before meals Patient discontinued use of o wn accord about 2 weeks ago due to some reading he found on the internet. Best possible SUB ARC OPERATOR medication list after pharmacy review: @[email or web address]@ Medication review performed and electronically signed by Ana Laura Coelho, Bender Hand 19:50 [facility] 04/27/2017 20:05 eyer, Paul Culver MD - 04/27/2017 8:39 AM PDT [place] HOSPITALIST PROGRESS NOTE Patient: Behzad Espinal Jr. : 1955: Age: 61 y.o. MedRec: [id number] PCP: Shakir Monzon DO Admission date: 04/26/2017 [...] for input(s): IRON, TIBC, PCTSAT, FERRITIN, TSH, MMXTXZDS57, FOLATE in the last 168 hours. Inflammatory [...] ABG No results for input(s): PHART, PO2ART, ERX7VDT, LSZ5UOB, BEART, L5WIZJMO in the last 168 h ours. No results for input(s): SPECSOURCE, PHPOCB, PCO2, PO2, HCO3, TCO2, BEART, CWWQ0YWU in the last 168 hours. Drug of [...] dot micro, for reference below is dot [id number] URSR Microbiology Results (72 hrs) Procedure Component Value Units Date/Time Culture, MRSA [[id number]] Collected: 04/27/17 0151 Order Status: Sent Lab Status: In process Updated: 04/27/17218 Specimen: Respiratory from Nares Radiology results (more choices using dot risresults) Mri Mrcp Liver Wo Contrast Result Date: 04/26/2017 MRI MRCP LIVER WO CONTRAST 04/26/2017 12:17 PM HISTORY:?BILIARY OBSTRUCTION, RULE OUT CBD ST ONE. COMPARISON: Multiple priors. PROTOCOL: Coronal T2 filenet admin, axial T2 filenet admin, coronal 3D res piratory triggered, coronal T2 [...] L/min (dot meyvent) Subjective CC Tfer from [place] for Chest and Abd pain with U/S [...] 0348 Gram negative sepsis + BC in [place] Hepatic cirrhosis, unspecified hepatic cirrhosis type Chronic hepatitis C without hepatic coma (followed at [facility] treated 4 months ago with un [...] Dr Pratt to call me (he information security officer for sgy) Troponin recheck What untoward reaction? [...] meycritical meysign) Paul Quiroga MD 04/27/2017 8:40 [facility] Reference. This is NOT part [...] this chart may have been created with [employer] voice recognition software. Occasi onal wrong-word or [...] [place] | | | | | | [address] | | | | | | | [...] [address] | [place] | [phone] | | [facility] | | [address] | | | - LABORATORY | | [...] : 1955MEDICAL | | | RECORD NUMBER: [id number] OF PROCEDURE: 04/28/2017 | | | | | | PRIMARY CARE PROVIDER: Shakir Monzon | | | NAJMA FORKLIFT TRUCK OPERATOR: Bright Triana MD. PRE-PROCEDURE DIAGNOSIS: | | [...] | | | conclusions. Bright Triana MD [facility] | | | CenterDATE/TIME: 04/28/2017 11: [...] | | |Bright Triana MD | | |[facility] | | |DATE/TIME: 04/28/2017 11:27 | | [...] | | | | | | [facility] | | | | | | MEDICAL [...] [address] | [place] | [phone] | | [facility] | | [address] | | | - LABORATORY | | [...] 11 | 7 - 18 mg/dL | [facility] | | | | | | [facility] | | | | | | MEDICAL | | | | | | CENTER - | | | | | | LABORATORY | | + + + + + + | Creatinine | 0.91 | 0.60 - 1.30 | [facility] | | | | | mg/dL | [facility] | | | | | | MEDICAL | | | | | | CENTER - | | | | | | LABORATORY | | + + + + + + | eGFR if not | >60Comment: GLOMERULAR | >=60 | [facility] | | | | FILTRATION | mL/min/1.73m2 | [facility] | | | HUNGARIAN | RATE,ESTIMATED | | MEDICAL | | | | mL/min/1.02n4Nyda than | | CENTER - | | [...] [address] | [place] | [phone] | | [facility] | | [address] | | | - LABORATORY | | [...] | | | | | | [employer] | | | | | [...] ST. | [address] | [place] | [phone] | | [facility] | | [address] | | | - LABORATORY | | [...] | | | | | | [employer] | | | | | [...] [address] | [place] | [phone] | | [facility] | | [address] | | | - LABORATORY | | [...] + | [facility] | [address] | [place] | [phone] | | [facility] | | [address] | | | - LABORATORY | | [...] ST. | [address] | [place], [place] | [phone] | | [facility] | | [address] | | | - LABORATORY | | [...] | | | | | | [employer] | | | | | [...] [address] | [place] | [phone] | | [facility] | | [address] | | | - LABORATORY | | [...] [address] JR. | | | Patient Number [id number] Date of Study | | | 04/27/2017 Visit Number [id number] Accession | | | [id number] Referring Physician LEATHA IVY Number | | | Date of 1955 [facility] | | | Ted Blake Age 61 year(s) | | | Interpreting MONICA LUNA | | | In Home Tutor CHERYL ANDERSON, | | | | | | Gender Male Nurse | | | Stress Hand Profiler | | | Procedure Type of Study [...] Volume: 84.98 ml | | | EF Xlvcztokw46% Left Ventricle Diastolic | | | Dimension: [...] Volume: 84.98 ml | | | EF Kbpkibvqh60% | | | | | | Left [...] Room Number 454 | | Patient Number [id number] Date of Study 04/27/2017 Visit Number | | [id number] Referring Physician LEATHA IVY | | Number Date of 1955 [facility] Ted Lozano Age | | 61 year(s) Interpreting MONICA LUNA | | In Home Tutor CHERYL ANDERSON, | | Gender Male Nurse [...] LA Volume: | | 84.98 ml EF Aavojlniu12% Left Ventricle | | Diastolic Dimension: 5.83 [...] LA Volume: 84.98 ml | | EF Umfsstvvq61% | | | | Left Ventricle | [...] [address] | [place] | [phone] | | [facility] | | [address] | | | - LABORATORY | | [...] [address] | [place] | [phone] | | [facility] | | [address] | | | - LABORATORY | | [...] | 0.84 | 0.60 - 1.30 | [facility] | | | | | mg/dL | [facility] | | | | | | MEDICAL | | | | | | CENTER - | | | | | | LABORATORY | | + + + + + + | eGFR if not | >60Comment: GLOMERULAR | >=60 | [facility] | | | | FILTRATION | mL/min/1.73m2 | [facility] | | | HUNGARIAN | RATE,ESTIMATED | | MEDICAL | | | | mL/min/1.41i8Tgtw than | | CENTER - | | [...] ST. | [address] | [place] | [phone] | | [facility] | | [address] | | | - LABORATORY | | [...] | | | | | | [employer] | | | | | [...] + | Performing | Address | City/State[facility] | Phone Number | | Organization | | | | + + + + + | [facility] | [address] | [place] | [phone] | | [facility] | | [address] | | | - LABORATORY | | [...] [address] | [place] | [phone] | | [facility] | | [address] | | | - LABORATORY | | [...] | | | | ROXANNA RUEDA MD ([id number]) | | | | | | on [...] [address] | [place] | [phone] | | [facility] | | [address] | | | - LABORATORY | | [...] | | | | | | [employer] | | | | | [...] [address] | [place] | [phone] | | [facility] | | [address] | | | - LABORATORY | | [...] [address] | [place] | [phone] | | [facility] | | [address] | | | - LABORATORY | | [...] [address] | [place] | [phone] | | [facility] | | [address] | | | - LABORATORY | | [...] | | | FILTRATION | mL/min/1.73m2 | [facility] | | | HUNGARIAN | RATE,ESTIMATED | | MEDICAL | | | | mL/min/1.94b4Xnba than | | CENTER - | | [...] [address] | [place] | [phone] | | [facility] | | [address] | | | - LABORATORY | | [...] [address] | [place] | [phone] | | [facility] | | [address] | | | - LABORATORY | | [...] [address] | [place] | [phone] | | [facility] | | [address] | | | - LABORATORY | | [...] [address] | [place] | [phone] | | [facility] | | [address] | | | - LABORATORY | | [...] + | [facility] | [address] | [place] | [phone] | | [facility] | | [address] | | | - LABORATORY | | [...] + | [facility] | [address] | [place] | [phone] | | [facility] | | [address] | | | - LABORATORY | | [...] | | | | mmol/L | [facility] | | | | | | MEDICAL [...] mL/min/1.73m2 | [facility] | | | HUNGARIAN | RATE,ESTIMATED | | MEDICAL | | | | mL/min/1.55j7Ouwm than | | CENTER - | | [...] [address] | [place] | [phone] | | [facility] | | [address] | | | - LABORATORY | | [...] [address] | [place] | [phone] | | [facility] | | [address] | | | - LABORATORY | | [...] priors. 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
--- OUTSIDE RECORDS SUMMARY | ~2019-01-07 | XMS | Encounter Summary ---
Demographics + + + | Address | [address] | | | [place] [address] | + + + | Home Phone | | + + + | Preferred Language | Unknown | + + + | Marital Status | Single | + + + | Sikhism Affiliation | Unknown | + + + | Race | Unknown | + + + | Ethnic Group | Unknown | + + + Author + + + | Author | [facility] | | | and [place] | + + + | Organization | [facility] | | | [...] Team Providers + +------+ + | Care Pulpit Operator Name | Role | Phone | + +------+ + | Shakir Monzno DO | PCP | | + +------+ + Reason for Visit +--------+ + | Reason | Comments | +--------+ + | Other | Procedure CLX. | +--------+ + Encounter Details +--------+ + + + + | Date | Type | Department | Care Team | Description | +--------+ + + + + | 12/06/ | Telephone | [facility] | Kady Cortez | Other (Procedure | | 2019 | | CARDIOLOGY BRANDYN Angeles, Animal Chiropractor | [facility] ) | | | | [address] | | | | | | [place] | | | | | | [address] | | | | | | [phone] | | | +--------+ + + + [...] [place] | | | | | | [address] | | | | | | | | +--------+---------+ + + + documented as of this encounter Visit Diagnoses Not on filedocumented in this encounter"
--- OUTSIDE RECORDS SUMMARY | ~2019-01-07 | XMS | Encounter Summary ---
Demographics + + + | Address | [address] | | | [place] [address] | + + + | Home Phone [...] | Author | [facility] | + + + | Organization | [facility] [employer] [facility] | + + + | Address | Unknown | + + + | Phone | Unavailable | + + + Support + + +---------+ + | Name | Relationship | Address | Phone | + + +---------+ + | Mary Medellin | ECON | Unknown | | + + +---------+ + Care Team Providers + +------+ + | Care Control Clerk Food And Beverage Name | Role | Phone | + [...] | | 2018 | | Center at [facility] [address] | [address] | | | | | [place] | [address] | | | | | Mailcode: Center | [place], [place] | | | | | [facility] and | [address] | | | | | [place] [address] | [phone] | | | | | [place], [place] | | | | | | [address] | | | | | | [phone] | | | +--------+ + + + [...]
--- OUTSIDE RECORDS SUMMARY | ~2019-01-07 | XMS | Encounter Summary ---
Demographics + + + | Address | [address] | | | [place] [address] | + + + | Home Phone [...] + + + | Author | [facility] | | | and [place] | + + + | Organization | [facility] | | [...] Team Providers + +------+ + | Care Gasser Machine Operator Name | Role | Phone | + +------+ + | Mookie Castro PA-C | PCP | | + +------+ + Encounter Details +--------+ + + + + | Date | Type | Department | Care Team | Description | +--------+ + + + + | 09/09/ | Abstract | [facility] [place] | [facility], | | | 2015 | | GASTROENTEROLOGY | [place] [address] | | | | | [address] [place] | [place], [place] | | | | | [address] [place] | [place] | | | | | [address] | [address] | | | | | [phone] | | | +--------+ + + + [...] | | | | | [place] | | | | | | [address] | | | | | | | [...]
--- OUTSIDE RECORDS SUMMARY | ~2019-01-07 | XMS | Encounter Summary ---
Demographics + + + | Address | [address] | | | [place] [address] | + + + | Home Phone [...] [facility] | | | and [place] | + + + | Organization | [facility] | | [...] Team Providers + +------+ + | Care Dental Ceramist Assistant Name | Role | Phone | [...] | Telephone | [facility] [place] | [facility], | Phone Management | | 2016 | | GASTROENTEROLOGY | [place] [address] [address] | | | | | [address] [place] | [place], [place] [address] | | | | | [address] [place], [place] | [place], [place] | | | | | [address] | [address] | | | | | [phone] | | | +--------+ + + + [...] [place] | | | | | | [address] | | | | | | | | +--------+---------+ + + + documented as of this encounter Visit Diagnoses Not on filedocumented in this encounter"
--- OUTSIDE RECORDS SUMMARY | ~2019-01-07 | XMS | Encounter Summary ---
Demographics + + + | Address | [address] | | | [place] [address] | + + + | Home Phone [...] Author + + + | Author | [facility] | + + + | Organization | [facility] [employer] [facility] | + + + | Address | Unknown | + + + | Phone | Unavailable | + + + Support + + +---------+ + | Name | Relationship | Address | Phone | + + +---------+ + | Mary Medellin | ECON | Unknown | | + + +---------+ + Care Team Providers + +------+ + | Care Making Machine Operator Name | Role | Phone [...] | | | | [address] | [facility], [place] | [place] | | | | | [place] | [address] | [address] | | | | | [place] | Phone: | Phone: | | | | | [place] | [phone] | [phone] | | | | | ABDOMEN&PELV | Fax: | Fax: | | | | | [place] | [phone] | [phone] | | | | | W/CONTRAST | [...] [place] | [facility] | | | | | CT ABDOMEN | [address] | Rd [place], | | | | | AND PELVIS | [facility], [place] | [place] | | | | | [place] | [address] | [address] | | | | | [place] | Phone: | Phone: | | | | | [place] | [phone] | [phone] | | | | | ABDOMEN&PELV | Fax: | Fax: | | | | | [place] | [phone] | [phone] | | | | | W/CONTRAST | [...] | | | [address] Mailcode: | [place], [place] | | | | | [address] [facility] | [address] | | | | | [place], [place] | [phone] | | | | | [address] | | | | | | [phone] | | | +--------+ + + + [...]
--- OUTSIDE RECORDS SUMMARY | ~2019-01-07 | XMS | Encounter Summary ---
Demographics + + + | Address | [address] | | | [place] [address] | + + + | Home Phone [...] Team Providers + +------+ + | Care License Clerk Name | Role | Phone | [...] + | 06/30/ | Telephone | [facility] | Donell Hunt MD | EGD (esophageal | | 2017 | | GASTROENTEROLOGY | [address] | varices) | | | | [address] [facility] | [place], [place] | | | | | [address] [place], [place] | [address] | | | | | [address] | [phone] | | | | | [phone] | | | +--------+ + + + [...] | | | | | [place], [place] | | | | | | [address] | | | | | | | [...]
--- OUTSIDE RECORDS SUMMARY | ~2019-01-07 | XMS | Encounter Summary ---
Demographics + + + | Address | [address] | | | [place] [address] | + + + | Home Phone | | + + + | Preferred Language | Unknown | + + + | Marital Status | Single | + + + | Sikhism Affiliation | Unknown | + + + | Race | Unknown | + + + | Ethnic Group | Unknown | + + + Author + + + | Author | [facility] | | | and [place] | + + + | Organization | [facility] | [...] Team Providers + +------+ + | Care Civil Engineer Land Development Name | Role | Phone | + +------+ + | Mookie Castro PA-C | PCP | | + +------+ + Encounter Details +--------+ + + + + | Date | Type | Department | Care Team | Description | +--------+ + + + + | 07/08/ | Abstract | [facility] [place] | [facility], | | | 2015 | | GASTROENTEROLOGY | [place] [address] | | | | | [address] [place] | [place], [place] [address] | | | | | [address] [place] | [place], [place] | | | | | [address] | [address] | | | | | [phone] | | | +--------+ + + + [...] [place] | | | | | | [address] | | | | | | | [...] + | [address] | [address] [place] [address] | [place] | [phone] | | [facility] | | [address] | | | - LABORATORY | | [...] [address] | [place] | [phone] | | [facility] | | [address] | | | - LABORATORY | | | | + + + + + documented in this encounter Visit Diagnoses Not on filedocumented in this encounter"
--- OUTSIDE RECORDS SUMMARY | ~2019-01-07 | XMS | Encounter Summary ---
Demographics + + + | Address | [address] | | | [place] [address] | + + + | Home Phone [...] + | Author | [facility] | + + + | Organization | [facility] [employer] [facility] [...] Team Providers + +------+ + | Care Harvest Contractor Name | Role | Phone | + [...] Rd | | | | | Rd [place], [place] | [place], [place] | | | | | [address] | [address] | | | | | [phone] | | | +--------+ + + + [...]
--- OUTSIDE RECORDS SUMMARY | ~2019-01-07 | XMS | Encounter Summary ---
Demographics + + + | Address | [address] | | | [place] [address] | + + + | Home Phone | | + + + | Preferred Language | Unknown | + + + | Marital Status | Single | + + + | Mormon Affiliation | Unknown | + + + [...] Team Providers + +------+ + | Care Refinish Technician Name | Role | Phone | [...] + + | 09/14/ | Telephone | [facility] | Donell Hunt MD | Diagnostic Order | | 2017 | | GASTROENTEROLOGY | [address] | | | | | [address] [facility] | [place], [place] | | | | | [address] [place] | [address] | | | | | [address] | [phone] | | | | | [phone] | | | +--------+ + + + [...] [place] | | | | | | [address] | | | | | | | | +--------+---------+ + + + documented as of this encounter Visit Diagnoses Not on filedocumented in this encounter"
--- OUTSIDE RECORDS SUMMARY | ~2019-01-07 | XMS | Encounter Summary ---
Demographics + + + | Address | [address] | | | [place] [address] | + + + | Home Phone [...] | Author | [facility] | + + + | Organization | [facility] [employer] [facility] | + [...] Providers + +------+ + | Care Clinical Coder Name | Role | Phone | + +------+ + | Shakir Monzon MD | PCP | | + +------+ + Encounter Details +--------+ + + + + | Date | Type | Department | Care Team | Description | +--------+ + + + + | 11/01/ | Abstract | Cardiology General | Sharon Sanderson | | | 2018 | | at [facility] [address] | [address] | | | | | Rolando Rivas Mailcode: | Rolando Rivas [place], | | | | | [address] | [place] [address] | | | | | Health and Healing, | [phone] | | | | | [facility] | | | | | | floor [place], [place] | | | | | | [address] | | | | | | [phone] | | | +--------+ + + + [...]
--- OUTSIDE RECORDS SUMMARY | ~2019-01-07 | XMS | Encounter Summary ---
Demographics + + + | Address | [address] | | | [place] [address] | + + + | Home Phone [...] | [facility] | + + + | Organization | [facility] [employer] [facility] | + + + | Address | Unknown | + + + | Phone | Unavailable | + + + Support + + +---------+ + | Name | Relationship | Address | Phone | + + +---------+ + | Mary Medellin | ECON | Unknown | | + + +---------+ + Care Team Providers + +------+ + | Care Integration Technician Name | Role | Phone | [...] | | | | [address] | [place], [place] | [address] | | | | | CONTRAST (+ | [address] | [place] | | | | | [place]) | Phone: | Research | | | | | | [phone] | [place] | | | | | | Fax: | [place], [place] | | | | | | [phone] | [address] | | | | | | | Phone: | | | | | | | [phone] | | | | | | | Fax: | | | | | | | [phone] | +--------+--------+ + + + + Reason [...] | | | | CONTRAST (+ | [address] | [place] | | | | | [place]) | Phone: | Research | | | | | | [phone] | Center | | | | | | Fax: | [place], [place] | | | | | | [phone] | [address] | | | | | | | Phone: | | | | | | | [phone] | | | | | | | Fax: | | | | | | | [phone] | +--------+--------+ + + + + Encounter Details +--------+ + + + + | Date | Type | Department | Care Team | Description | +--------+ + + + + | 09/24/ | Hospital | Diagnostic Imaging | Moustapha Schafer MD | | | 2018 | Encounter | Services at [facility] | [address] | | | | | [address] | [place], | | | | | [place] Mailcode: | [place] [address] | | | | | [address] | [phone] | | | | | [facility] | | | | | | [place], [place] | | | | | | [address] | | | | | | [phone] | | | +--------+ + + + [...] Note | + + | Service Account, Radimobile[employer] Res In Interface - 09/27/2017 9:10 AM [...] + + | [facility] | [address] | [place], [place] | | | [place], POINT OF CARE | [facility] | [address] | | | TESTS | | | [...]
--- OUTSIDE RECORDS SUMMARY | ~2019-01-07 | XMS | Encounter Summary ---
Demographics + + + | Address | [address] | | | [place] [address] | + + + | Home Phone | | + + + | Preferred Language | Unknown | + + + | Marital Status | Single | + + + | Sabianism Affiliation | Unknown | + + + | Race | Unknown | + + + | Ethnic Group | Unknown | + + + Author + + + | Author | [facility] | | | and [place] | + + + | Organization | [facility] | | | [...] Providers + +------+ + | Care Primary Mill Roller Name | Role | Phone [...] | [address] [place] | [place], [place] | | | | | [address] [place] | [address] | | | | | [address] | [phone] | | | | | [phone] | | | +--------+ + + + [...] for Monilial esophagitis; printed and faxed to [facility] per Dr. Gilbert haskins; recall placed [...] [place] | | | | | | [address] | | | | | | | | +--------+---------+ + + + documented as of this encounter Visit Diagnoses + + | Diagnosis | + + | Monilial esophagitis (HCC) - Primary Candidiasis of the esophagus | + + documented in this encounter"
--- OUTSIDE RECORDS SUMMARY | ~2019-01-07 | XMS | Encounter Summary ---
Demographics + + + | Address | [address] | | | [place] [address] | + + + | Home Phone [...] + | Author | [facility] | + + + | Organization | [facility] [employer] [facility] | + + + | Address | Unknown | + + + | Phone | Unavailable | + + + Support + + +---------+ + | Name | Relationship | Address | Phone | + + +---------+ + | Mary Medellin | ECON | Unknown | | + + +---------+ + Care Team Providers + +------+ + | Care Senior Net Architect Name | Role | Phone | + +------+ + | Shakir Monzon MD | PCP | | + +------+ + Encounter Details +--------+ + + + + | Date | Type | Department | Care Team | Description | +--------+ + + + + | 10/16/ | Production Truck Driver | Digestive Health | Bessy Solano, | | | 2016 | | Center [place] [address] [address] | [address] | | | | | [address] | [facility] | | | | | Mailcode: [id number] | [place], [place] | | | | | [facility] | [address] | | | | | and Healing, | [phone] | | | | | [address] | | | | | | [place], [place] | | | | | | [address] | | | | | | [phone] | | | +--------+ + + + [...]
--- OUTSIDE RECORDS SUMMARY | ~2019-01-07 | XMS | Encounter Summary ---
Demographics + + + | Address | [address] | | | [place] [address] | + + + | Home Phone [...] Team Providers + +------+ + | Care Acid Treater Name | Role | Phone | + [...] + + | 09/11/ | Telephone | [facility] | Donell Hunt MD | Diagnostic Order | | 2017 | | GASTROENTEROLOGY | [address] | | | | | [address] [facility] | [place], [place] | | | | | [address] [place] | [address] | | | | | [address] | [phone] | | | | | [phone] | | | +--------+ + + + [...] [place] | | | | | | [address] | | | | | | | | +--------+---------+ + + + documented as of this encounter Visit Diagnoses Not on filedocumented in this encounter"
--- OUTSIDE RECORDS SUMMARY | ~2019-01-07 | XMS | Clinical Summary ---
Demographics + + + | Address | [address] | | | [place] [address] | + + + | Home Phone [...] Providers + +------+ + | Care Police Commissioner Name | Role | Phone | + [...] | mouth once daily. | | | 220 | | e | | 30 mg [...] nitroglycerin | Place 1 tablet under | 30 | 4 | 12/16 | | Activ | | (NITROSTAT) 0.4 mg | tongue every five | tablet | | 4/20 | | e | | SL tablet | minutes as needed | | | 19 | | | | | for chest [...] under | | 0 | 09/1 | 11/ | Disco | | (NITROSTAT) 0.4 mg | tongue every five | | | 7/20 | 4/20 | ntinu | | SL tablet | minutes as needed | | | 18 | 19 | ed | | | for chest pain. | | | | | (Reor | | | Place under tongue | | | | | jeff) | | | and allow to | [...] nitroglycerin | Place 1 tablet under | 30 | 4 | / | / | Disco | | (NITROSTAT) 0.4 mg | tongue every five | tablet | | 4/20 | 4/20 | ntinu | | SL tablet | minutes as needed | | | 19 | 19 | ed | | | for chest pain. | | | | | (Reor | | | Place under tongue | | | | | jeff) | | | and allow to | [...] | +--------+ + + + + | 12/29/ | Office | Cardiology | Lakisha Kahn DO | Coronary | | 2019 | Visit | | | arteriosclerosis | | | | | | (Primary Dx); | | | | | | Essential | | | | | | hypertension | +--------+ + + + + | 12/06/ | Telephone | Cardiology Kady Mason (Procedure | | 2018 | | | Bridgette Utility Lineman | CLXSyeda ) | +--------+ + + + + | 11/29/ | Refill | Kady Garza | Medication Refill | | 2018 | | | [place] | | +--------+ + + + + | 11/24/ | Telephone | Kady Garza (Patient | | 2018 | | | Bridgette Utility Lineman | update. ) | +--------+ + + + + | 10/07/ | Documentati | Kady Garza (Rotan | | 2018 | on | | Bridgette Utility Lineman | Gabe ROSS ) | +--------+ + + + + from [...] [place] | | | | | | [address] | | | | | | | | +--------+---------+ + + + + + + + + | Health Maintenance | Due Date | Last Done | Comments | + + + + + | Vaccine: | | | | | Pneumococcal 19-64 | 2 | | | | (1 of 1 - PPSV23) | | | | + [...] | | + +--------+ +--------+ +---------+--------+ | [facility] | IHS | [id number] | | | | Indemn | | SERVICE | YELLOW | | 009-Pr | | | ity | | | HAWK | | esent | | | | + +--------+ +--------+ +---------+--------+ | [place] | MEDICA | [id number] | 04/16/19 | [phone] | | Medica | | | ID [place] | | 18-Pre | 2 | | id | | | PLUS | | sent | | | | + +--------+ +--------+ +---------+--------+ | [facility] | IHS | [id number] | 05/21/19 | | | Indemn | [...] Person | Self | [birth year] | | [address] | | | al/Fam | | 6 | [phone] | [place], [place] | | | eryn | | | 1 (Home) | [address] | + +--------+ +--------+ + + | Bret Espinal Jr. | Person | Self | [birth year] | | [address] | | | al/Fam | | 1956 | [phone] | [place] | | | eyrn | | | 1 ([place]) | [address] | + +--------+ +--------+ + + Advance Directives + + + + + | Type | Date Recorded | Patient | Explanation | | | | Dining Room Host/Hostess | | + + + + + | Power of | | | | | Power Washer | | | | + + + + + | Advance | 07/27/2016 7:53 | | | | Directive | AM | | | + + + + + + + + + + | Code Status | Date | Date | Comments | | | Activated | Inactivated | | + + + + + | Full Code | 04/26/2017 | 04/28/2017 | | | | 11:15 AM | 7:32 PM | | + + + + +
--- OUTSIDE RECORDS SUMMARY | ~2019-01-07 | XMS | Clinical Summary ---
Demographics + + + | Address | [address] | | | [place] [address] | + + + | Home Phone | | + + + | Preferred Language | Unknown | + + + | Marital Status | Single | + + + | Religion Affiliation | Unknown | + + + | Race | Unknown | + + + | Ethnic Group | Unknown | + + + Author + + + | Author | [facility] (Historical as of | | | 10-01-18) | + + + | Organization | [facility] (Historical as of | | | 10-01-18) [...] Team Providers + +------+ + | Care Bartacker Name | Role | Phone | + [...] | | | + +--------+ +------+-------+---------+ | [facility] | YELLOW | [id number] | | | | | PLANS | [...] | Self | [birth year] | Home: | [address] | | | al/Fam | | 1956 | [phone] [place] | | | eryn | | | [phone] | [address] | + +--------+ +--------+ + +
--- OUTSIDE RECORDS SUMMARY | ~2019-01-07 | XMS | Encounter Summary ---
Demographics + + + | Address | [address] | | | [place] [address] | + + + | Home Phone [...] [facility] | + + + | Organization | [facility] | + + + | Address | Unknown | + + + | Phone | Unavailable | + + + Support + + +---------+ + | Name | Relationship | Address | Phone | + + +---------+ + | Mary Medellin | ECON | Unknown | | + + +---------+ + Care Team Providers + +------+ + | Care Writing Tutor Name | Role | Phone | + +------+ + | Shakir Monzon MD | PCP | | + +------+ + Encounter Details +--------+ + + + + | Date | Type | Department | Care Team | Description | +--------+ + + + + | 04/26/ | Document-Sc | Health Information | Unknown . | | | 2018 | anned | Services [address] | | | | | | [address] | | | | | | Mailcode: [id number] | | | | | | [facility] | | | | | | [place], [place] | | | | | | [address] | | | | | | [phone] | | | +--------+ + + + [...]
--- OUTSIDE RECORDS SUMMARY | ~2019-01-07 | XMS | Encounter Summary ---
Demographics + + + | Address | [address] | | | [place] [address] | + + + | Home Phone [...] Author | [facility] | + + + | Organization | [facility] [employer] [facility] | + [...] Team Providers + +------+ + | Care Floral Merchandiser Name | Role | Phone | + [...] 2018 | | General Surgery at | [facility] | | | | | PPV [address] | Road [place], [place] | | | | | [address] | [address] | | | | | Mailcode: [id number] | | | | | | Nikkie Mazariegos | | | | | | [address] [place], [place] | | | | | | [address] | | | | | | [phone] | | | +--------+ + + + [...]
--- OUTSIDE RECORDS SUMMARY | ~2019-01-07 | XMS | Clinical Summary ---
Demographics + + + | Address | [address] | | | [place] [address] | + + + | Home Phone [...] Team Providers + +------+ + | Care Radioisotope Technician Name | Role | Phone | + +------+ + | Shakir Monzon MD | PCP | | + +------+ + Source Comments LINDA is fully live on both EpicCare Ambulatory and EpicCare InPatient.[facility] & Count includes the [facility] Allergies + + + + [...] PLUS | | 18-Pre | 6 | [address] | id | | | OPEN | | sent | | [place], [place] | | | | CARD | | | | [phone] | | + +--------+ +--------+ + +--------+ | [facility] | [facility] | [phone] | | | | Agency [...] Person | Self | [birth year] | | [address] | | | al/Fam | | 1955 | [phone] | [place] [address] | | | eryn | | | [...]
--- OUTSIDE RECORDS SUMMARY | ~2019-01-07 | XMS | Encounter Summary ---
Demographics + + + | Address | [address] | | | [place] [address] | + + + | Home Phone [...] Author + + + | Author | [facility] [employer] [facility] | + + + | Organization | [facility] [employer] [facility] | + [...] | | | | | CARDIAC | [place], [place] | [address] | | | | | [facility] | [address] | for Health | | | | | | Phone: | and Healing, | | | | | | [phone] | Building [address] | | | | | | Fax: | [place], [place] | | | | | | [phone] | [address] | | | | | | | Phone: | | | | | | | [phone] | | | | | | | Fax: | | | | | | | [phone] | + +--------+ + + + + [...] Health and | | | | | LOAD DISPATCHER LOCAL | [address] | Healing, | | | | | [place] REMOVAL | Phone: | Building [address] | | | | | GALLBLADDER | [phone] | [place], [place] | | | | | [place] REMV | Fax: | [phone] | | | | | GALLBLADDER | [phone] | Phone: | | | | | W | | [phone] | | | | | CHOLANGIOGRA | | Fax: | | | | | M [place] REMV | | [phone] | | | | | GALLBLADDER, | | | | | | | EXPLOR | | | | | | | COMMON DUCT | | | | | | | [place] REMV | | | | | | | GB,W | | | | | | | CHOLEDOCHOEN | | | | | | | TEROSTOMY | | | | | | | [place] | | | | | | | ANAST,JACINTO-E | | | | | | | N-[place],EXTRAHEP | | | | | | | TO GI TRCT | | | | | | | IL | | | | | | | ANAST,JACINTO-E | | | | | | | N-[place],INTRAHEP | | | | | | | TO GI TRCT | | | | | | | IL UPPER GI | | | | | | | | | | | | | | ENDOSCOPY,DI | | | | | | | AGNOSIS IL | | | | | | | UPPER GI | | | | | | | ENDOSCOPY,BI | | | | | | | OPSY IL | | | | | | | PLACE PERCUT | | | | | | | GASTROSTOMY | | | | | | | TUBE IL | | | | | | | REMOVAL | | | | | | | STOMACH,TOTA | | | | | | | L [place] | | | | | | | REMOVAL | | | | | | | STOMACH,JACINTO | | | | | | | -EN-Y [place] | | | | | | | ERCP,W/REMOV | | | | | | | AL | | | | | | | STONE,DAVID/PA | | | | | | | NCR DUCTS | | | | | | | IL EXCIS | | | | | | | BILE DUCT | | | | | | | TUMOR,EXTRAH | | | | | | | EPATIC IL | | | | | | | EXCIS BILE | | | | | | | DUCT | | | | | | | TUMOR,INTRAH | | | | | | | EPATIC [place] | | | | | | | LAP,ESOPHAGU | | | | | | | S,OTHER PROC | | | | | | | [id number] | | | | | | | (like code | | | | | | | [phone] | | | | | | | or [phone]) | | | + +--------+ + + [...] | | | Cholelithias | [place] | [address] | | | | | es | [place] | Ave | | | | | | Health | Mailcode: | | | | | | [place] | [facility] | | | | | | [facility] | Health and | | | | | | Confed[place] | Healing, | | | | | | Way | Building [address] | | | | | | [place], | [place], [place] | | | | | | [place] [address] | [address] | | | | | | Phone: | Phone: | | | | | | [phone] | [phone] | | | | | | Fax: | Fax: | | | | | | [phone] | [phone] | + +--------+ + + + + [...] | | | | Mailcode: Center | [place], [place] | | | | | for Health and | [address] | | | | | [facility], [facility] 2 | [phone] | | | | | [place], [place] | | | | | | [address] | | | | | | [phone] | | | +--------+---------+ + + + [...] 02/02/2018 9:10 AM PSTPATIENT SURGERY INFORMATI ON [facility] General Surgery Office Toll-free: ext [phone] Surgery Date: TBD Procedure: Laparoscopic cholecystectomy, possibly [...] the surgery. Please see the list below, [facility] has a list of products that contain [...] please call the General Surgery Office at [phone] for otoba-cy-aook. PARKING Parking for patients and visitors is available in the [facility] Parking structure located across from the emergency department. Patient parking is available on level 1 and 3. Mete red parking is available on the top level. CHECKING IN FOR SURGERY For Hospital Admission (in-patient) you will check in on the day of [facility] located on the 9th floor of [facility] TRANSPORTATION You will require transportation home on the day of discharge. Pain medications and physica l activity restrictions may limit your ability to drive safely. CANCELLING YOUR PROCEDURE Please notify the general surgery office at [phone] as soon as possible should you nee [...] prior to your surgery. PRODUCTS CONTAINING ASPIRIN Teresita-Venice, Anacin, Anexsia with Codeine, Andynos, Aspirin, Aspirin suppositories, Ascrip tin, Aspergum, Axotal, B-A-C, Baby Aspirin, Chalino, BC Powder, Bexophene, Buffaprin, Bufferin , Buffinol, Cama-Arthritis Strength, Congespirin, [place], Coricidin, Damason, Darvon, Dristan, Monica-Gesic, Digel, Dolprin #3 Tablets, Donatab, Doxaphene, Duragesic, Easprin, Ecotrin, Emag rin Forte, Emiprin, Emprazil, Equagesic, Equazine M, Excedrin, Fiogesic, Fiorgen PH, Fiorice t, Fiorinal, 4-Way Cold Tablet Gemnisyn, Indocin, Liquprin, Lortab ASA, Magnaprin, Marnal, Meprobamate, Midol, Momentum, N orgesic, Oilton, Orphengesic, Pabalate, P-A-C, Percodan, Presalin, Robaxasil, Roxiprin, Barry eto, Salocol SK-65 Compound, Sine-Aid, Sine-Off,, [place], Supac, Talwin Compound, Trigesic, Tolectin , Traiminicin, Vanquish, ZORprin, Zomax PRODUCTS CONTAINING IBUPROFEN Advil, Aleve, Haltran, Medipren, Midol, Motrin, Naproxyn, Nuprin, Rufen OTHER PRODUCTS WHICH MAY PROMOTE BLEEDING Vitamin E, Gingko Biloba, Marine Fatty Acids, [place]ak[place]-3 Fish Oil SupplementsElectronically si gned by Amalia Kearney RN at 02/02/2018 10:03 AM PST documented in this encounter Progress Notes Clinton Morillo MD - 02/02/2018 9:10 AM PSTDiscussed with resident Clinton Morillo M.D. [facility] [employer] ([facility]) Professor and Vice-Manager Market Development of Surgery The Mirza Gamboa Chair for Pancreatic Disease Research The [facility] Cancer [place] Cell phone: [phone] / [facility] provider's line [phone]. email: [email or web address] MD - 1 04/05/2017 9:10 AM PST The Department of Surgery Clinic Note Author: Sophie Nicole MD Attending Physician: Clinton Morillo MD 02/02/2018, 8:56 AM Patient Name: Bret Espinal Jr. : 1955 Medical Record: [id number] ID: Bret Espinal Jr. is a 62 [...] at an OSH and transfe rred to [facility] for further care in July. During [...] cirrhosis, he was referr ed back to [facility] for surgery and was last seen [...] He was evaluated by cardiology here at [facility] in May and Oct 2017, and [...] 2017 at [facility] which re ports normal LV size [...] the above medical record. Sophie Nicole MD [facility] Advanced GI & Minimally Invasive Surgery Fellow [facility] [place] Pager [phone] documented in this enco unter Plan of [...] | | | LABORATORY | | | [place] | | | SERVICES, | | | [...] | + + + + + | [facility] | [address] | [place] [address] | | | SERVICES, CORE | PARVEEN [...] 5 | | | | | | ng/tZ3-NR-Doavuxyn 50 | | | | | | [...] | | | | | determined by [facility] | | | | | | Laboratories. See | | | | | | Compliance Statement B: | | | | | | [email or web address] | | | | | | by [address] | | | | | | [facility],[place] | | | | | | [address] | | | | | | [phone]. | | | | | | comJúnior [...] REG UNIV | | | | and 4-AM-dftvzfzl is | | PTH - INTFC | | | | ametabolite of cotinine. | | | | | | After cessation from | | | | | | long-term orheavy use of | | | | | | nicotine products, | | | | | | 5-CF-dafmduou may | | | | | | [...] [facility] | [address] | [place], [place] | | | UNIV PTH - INTFC | | [address] | | + + + + + [...] LINDA LAGUERRE | [address] | [place] [address] | | | SERVICES, JORGE [address] | [address] | | | + + + + + documented in this encounter Visit Diagnoses + + | Diagnosis | + + | Gallbladder perforation - Primary Perforation of gallbladder | + + documented in this encounter
--- OUTSIDE RECORDS SUMMARY | ~2019-01-07 | XMS | Encounter Summary ---
Demographics + + + | Address | [address] | | | [place] [address] | + + + | Home Phone [...] Team Providers + +------+ + | Care Cigarette Paper Tester Name | Role | Phone | + +------+ + | Mookie Castro PA-C | PCP | | + +------+ + Encounter Details +--------+ + + + + | Date | Type | Department | Care Team | Description | +--------+ + + + + | 03/20/ | Abstract | [facility] [place] | [facility], | | | 2016 | | GASTROENTEROLOGY | [place] [address] | | | | | [address] [place] | [place], [place] [address] | | | | | [address] [place] | [place] | | | | | [address] | [address] | | | | | [phone] | | | +--------+ + + + [...] | | | | | [place] | | | | | | [id number] | | | | | | | [...] - 1.03 | EXTERNAL | | | [place], | | | LAB | | | [...]
--- OUTSIDE RECORDS SUMMARY | ~2019-01-07 | XMS | Encounter Summary ---
Demographics + + + | Address | [address] | | | [place] [address] | + + + | Home Phone [...] Team Providers + +------+ + | Care Shellacker Name | Role | Phone | + [...] [place] | | | | | | [address] | | | | | | [phone] | | | +--------+ + + + [...] | | | | | [place] | | | | | | [address] | | | | | | | | +--------+---------+ + + + documented as of this encounter Visit Diagnoses Not on filedocumented in this encounter"
--- OUTSIDE RECORDS SUMMARY | ~2019-01-07 | XMS | Encounter Summary ---
Demographics + + + | Address | [address] | | | [place] [address] | + + + | Home Phone | | + + + | Preferred Language | Unknown | + + + | Marital Status | Single | + + + | Yazidi Affiliation | NRP | + + + | Race | or | + + + | Ethnic Group | Not or | + + + Author + + + | Author | [facility] [employer] [facility] | + + + | Organization | [facility] [employer] [facility] | + + + | Address | Unknown | + + + | Phone | Unavailable | + + + Support + + +---------+ + | Name | Relationship | Address | Phone | + + +---------+ + | Mary Medellin | ECON | Unknown | | + + +---------+ + Care Team Providers + +------+ + | Care Senior International Tax Manager Name | Role | Phone | [...] 2019 | | Center at [facility] [address] | [address] | | | | | [address] [address] | [address] | | | | | Mailcode: Center | [place], [place] | | | | | for Health and | [address] | | | | | [facility] 2 | [phone] | | | | | [place], [place] | | | | | | [address] | | | | | | [phone] | | | +--------+ + + + [...]
--- OUTSIDE RECORDS SUMMARY | ~2019-01-07 | XMS | Encounter Summary ---
Demographics + + + | Address | [address] | | | [place] [address] | + + + | Home Phone [...] Team Providers + +------+ + | Care Ad Trafficker Name | Role | Phone | + [...] [place] | | | | | | [address] | | | | | | [phone] | | | +--------+ + + + [...] | | | | | [place] | | | | | | [address] | | | | | | | | +--------+---------+ + + + documented as of this encounter Visit Diagnoses Not on filedocumented in this encounter"
--- OUTSIDE RECORDS SUMMARY | ~2019-01-07 | XMS | Encounter Summary ---
Demographics + + + | Address | [address] | | | [place] [address] | + + + | Home Phone [...] + | Author | [facility] [employer] [facility] | + + + | Organization | [facility] [employer] [facility] | + [...] Team Providers + +------+ + | Care Motor Patrol Operator Name | Role | Phone | [...] | | | | | pectoris, | [place], [place] | | | | | | unspecified | [address] | | | | | | vessel or | Phone: | | | | | | lesion type, | [phone] | | | | | | unspecified | Fax: | | | | | | whether | [phone] | | | | | | [place] or | | | | | | [...] + + + + | 03/01/ | Fancy Needleworker | [facility] | Clinton Morillo, | 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[address] | [address]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[place] | [address] | pectoris, | | | | Mailcode: Center | [place], [place] | unspecified vessel | | | | for Health and | [address] | or lesion type, | | | | Healing, Building 2 | [phone] | unspecified whether | | | | [place], [place] | | [place] or | | | | [address] | | transplanted heart | | | | [phone] | | ([facility]) (Primary Dx); | | | | | [...] or lesion type, | | unspecified whether [place] or transplanted heart (HCC) - Primary | + + | Coronary artery calcification | + + | Anterior ST segment depression | + + | Inferior myocardial infarction (HCC) Acute myocardial infarction of other inferior | | wall, episode of care unspecified | + + documented in this encounter"
--- OUTSIDE RECORDS SUMMARY | ~2019-01-07 | XMS | Encounter Summary ---
Demographics + + + | Address | [address] | | | [place] [address] | + + + | Home Phone [...] Team Providers + +------+ + | Care Plant Operations Manager Name | Role | Phone [...] | | | | | | | [place] | | | | | | | ESOPHAGOGAST | | | | | | | RODUODENOSCO | | | | | | | PY TRANSORAL | | | | | | | DIAGNOSTIC | | | | | | | [place] EGD | | | | | | | TRANSORAL | | | | | | | BIOPSY | | | | | | | SINGLE/MULTI | | | | | | | PLE [place] | | | | | | | [...] | | | | [place] | [address] | | | | | [address] | [phone] | | | | | [phone] | | | +--------+---------+ + + + [...] the physician who did your procedure at [phone] if you have any questions or experience any of the following: ? Increasing abdominal pain, nausea, or vomiting. ? Chills and fever over 101F. ? New abdominal swelling or bloating. ? Signs of rectal bleeding (black or red stool). If you cannot get a hold of your physician, then call the [facility] [phone] . If necessary, report to the Emergency Department at [facility]. Quit smoking: If you smoke or [...] [place] | | | | | | [address] | | | | | | | [...] 05/05/2016 | PROVATION | | 9:49 AMMRN: [id number] #: [id number] of : | | | 6Admit Type: AmbulatoryAge: 60Room: [facility] 02Gender: MaleNote | | | Status: FinalizedAttending MD: Donell Hunt MDProcedure: | | | Upper GI endoscopyIndications: For therapy of | | | esophageal varicesProviders: Donell Hunt MD, Jennifer | | | Gurdeep RN, Daniella Yousif, Rack Loader, | | | Preston Wheat MD (Anesthesia [...] | | | the anesthesiologist and the automotive tire technician in the pre-procedure | | | [...] | | | AMScope Out: 10:06:08 AM [facility], [facility] | | | [place], [place] [address] | | | instructions were provided to [...] were discussed with the patient. | | |Doenll Hunt MD | | |05/05/2016 10:12:13 AM | | |Number of Addenda: 0 | | |Note Initiated On: 05/05/2016 9:49 AM | | |Total Procedure Duration: 0 hours 11 minutes 26 seconds | | |Scope In: 9:54:42 AM | | |Scope Out: 10:06:08 AM | | | [facility], [address], [place] | | | [address] | | + + -+ + +---------+ [...] ST. | [address] | [place] | [phone] | | [facility] | | [address] | | | - LABORATORY | | | | + + + + + Surgical Pathology Exam (05/05/2016 12:00 AM PDT) + + | Specimen | + + | | + + + + + | Narrative | Performed At | + + + | SPECIMEN(S): A GASTRIC BIOPSY SPECIMEN SOURCE: A. GASTRIC | [facility] | | BIOPSY CLINICAL HISTORY: K74.60 [...] organisms by immunohistochemical stain. | | | CLR:[facility]:C2NR GROSS DESCRIPTION: Received in formalin labeled | | | "Bret Espinal" and "gastric bxs" on the requisition are six pink-flowers | | | tissue fragments measuring from 0.2-0.7 cm, submitted, all in (A1). | | | ka:CLR:[facility] ADDITIONAL NOTES: Immunohistochemical studies were | | | performed on this case with the appropriate negative and positive | | | controls that react as expected. This test was developed and its | | | performance characteristics determined by [facility]. It | | | has not been cleared or approved by the U.S. Food and Drug | | | Administration. The FDA has determined that such clearance or | | | approval is not necessary. This test is used for clinical purposes. | | | It should not be regarded as investigational or for research. | | | [facility] is certified under the Clinical Laboratory | | | Improvement Amendments of 1988 (CLIA) as qualified to perform high | | | complexity clinical laboratory testing PERFORMING LABORATORY: | | | Tissue processing and slide preparation were performed by [facility] | | | [facility], [address], [place] [address] | | | (Television Production Assistant: Catrachito Ortiz M.D. CLIA#: [id number]). | | | Professional interpretation was performed by [facility], [address] | | [address], [place] [address] (Television Production Assistant: Catrachito | | | Natalya Ortiz; CLIA#: [id number]). Diagnostician: | | | Mina Terrell MD [...]
--- OUTSIDE RECORDS SUMMARY | ~2019-01-07 | XMS | Encounter Summary ---
Demographics + + + | Address | [address] | | | [place] [address] | + + + | Home Phone [...] + + + | Author | [facility] [employer] [facility] | + + + | Organization | [facility] [employer] [facility] | [...] Team Providers + +------+ + | Care Mutuel Teller Name | Role | Phone | [...] | | | | | | [address] [place], [place] | | | | | | [address] | | | | | | [phone] | | | +--------+ + + + [...]
--- OUTSIDE RECORDS SUMMARY | ~2019-01-07 | XMS | Encounter Summary ---
Demographics + + + | Address | [address] | | | [place] [address] | + + + | Home Phone [...] + + + | Author | [facility] [employer] [facility] | + + + | Organization | [facility] [employer] [facility] | [...] Team Providers + +------+ + | Care Plasterer Stucco Name | Role | Phone | + [...] Rd | | | | | Rd [place], [place] | [place], [place] | | | | | [address] | [address] | | | | | [phone] | | | +--------+ + + + [...]
--- OUTSIDE RECORDS SUMMARY | ~2019-01-07 | XMS | Encounter Summary ---
Demographics + + + | Address | [address] | | | [place] [address] | + + + | Home Phone [...] Author | [facility] [employer] [facility] | + + + | Organization | [facility] [employer] [facility] [...] Team Providers + +------+ + | Care Ice Cream Scooper Name | Role | Phone | + [...] | | | Mailcode: Center | [place], [place] | | | | | [facility] and | [address] | | | | | [facility] 2 | [phone] | | | | | [place], [place] | | | | | | [address] | | | | | | [phone] | | | +--------+ + + + [...]
--- OUTSIDE RECORDS SUMMARY | ~2019-01-07 | XMS | Encounter Summary ---
Demographics + + + | Address | [address] | | | [place] [address] | + + + | Home Phone [...] + + + | Author | [facility] [employer] [facility] | + + + | Organization | [facility] [employer] [facility] | + + + | Address | Unknown | + + + | Phone | Unavailable | + + + Support + + +---------+ + | Name | Relationship | Address | Phone | + + +---------+ + | Mary Medellin | ECON | Unknown | | + + +---------+ + Care Team Providers + +------+ + | Care Personnel Consultant Name | Role | Phone | [...] | | | | Mailcode: Center | [place], [place] | | | | | [facility] and | [address] | | | | | [facility], [facility] 2 | [phone] | | | | | [place], [place] | | | | | | [address] | | | | | | [phone] | | | +--------+ + + + [...]
--- OUTSIDE RECORDS SUMMARY | ~2019-01-07 | XMS | Encounter Summary ---
Demographics + + + | Address | [address] | | | [place] [address] | + + + | Home Phone [...] Team Providers + +------+ + | Care Recreation Program Coordinator Name | Role | Phone | [...] + | 09/10/ | Telephone | [facility] | Donell Hunt MD | Procedure | | 2017 | | GASTROENTEROLOGY | [address] [facility] | | | | | [address] [facility] | [place], [place] | | | | | [address], [place] | [address] | | | | | [address] | [phone] | | | | | [phone] | | | +--------+ + + + [...] [place] | | | | | | [address] | | | | | | | | +--------+---------+ + + + documented as of this encounter Visit Diagnoses Not on filedocumented in this encounter"
--- OUTSIDE RECORDS SUMMARY | ~2019-01-07 | XMS | Encounter Summary ---
Demographics + + + | Address | [address] | | | [place] [address] | + + + | Home Phone | | + + + | Preferred Language | Unknown | + + + | Marital Status | Single | + + + | Jew Affiliation | Unknown | + + + | Race | Unknown | + + + | Ethnic Group | Unknown | + + + Author + + + | Author | [facility] | | | and [place] | + + + | Organization | [facility] | | [...] Team Providers + +------+ + | Care Social Worker Name | Role | Phone | [...] | MED CTR EXTERNAL | MD [address]ie [address] | | | | | IMAGING | [address] | | | | | [phone] | [place] [address] | | +--------+ + + + + [...] [place] | | | | | | [address] | | | | | | | [...]
--- OUTSIDE RECORDS SUMMARY | ~2019-01-07 | XMS | Encounter Summary ---
Demographics + + + | Address | [address] | | | [place] [address] | + + + | Home Phone [...] Author + + + | Author | [facility] [employer] [facility] | + + + | Organization | [facility] [employer] [facility] | + [...] Team Providers + +------+ + | Care Rags Laborer Name | Role | Phone | + +------+ + | Shakir Monzon MD | PCP | | + +------+ + Encounter Details +--------+ + + + + | Date | Type | Department | Care Team | Description | +--------+ + + + + | 08/07/ | Pharmacy | Specialty Pharmacy | | | | 2017 | Visit | Services [address] | | | | [address] | | | | | | [place], [place] | | | | | | [address] | | | | | | [phone] | | | +--------+ + + + [...]
--- OUTSIDE RECORDS SUMMARY | ~2019-01-07 | XMS | Encounter Summary ---
Demographics + + + | Address | [address] | | | [place] [address] | + + + | Home Phone [...] + +------+ + | Care Director Of Social Work Name | Role | Phone | + [...] + | 09/10/ | Telephone | [facility] | Donell Hunt MD | Results | | 2017 | | GASTROENTEROLOGY | [address] | | | | | [address] [facility] | [place], [place] | | | | | [address] [place] | [address] | | | | | [address] | [phone] | | | | | [phone] | | | +--------+ + + + [...] | | | | | [place] | | | | | | [address] | | | | | | | | +--------+---------+ + + + documented as of this encounter Visit Diagnoses Not on filedocumented in this encounter"
--- OUTSIDE RECORDS SUMMARY | ~2019-01-07 | XMS | Encounter Summary ---
Demographics + + + | Address | [address] | | | [place] [address] | + + + | Home Phone [...] | [facility] | | | and [place] | + + + | Organization | [facility] | | [...] Providers + +------+ + | Care Inventory Control Specialist Name | Role | Phone | [...] + + | 11/29/ | Refill | [facility] | Kady Cortez | Medication Refill | | 2019 | | CARDIOLOGY [place], Horse Trader | | | | | [address] | | | | | | [address] | | | | | | [place], [place] | | | | | | [address] | | | | | | [phone] | | | +--------+--------+ + + + [...] [place] | | | | | | [address] | | | | | | | | +--------+---------+ + + + documented as of this encounter Visit Diagnoses Not on filedocumented in this encounter"
--- OUTSIDE RECORDS SUMMARY | ~2019-01-07 | XMS | Encounter Summary ---
Demographics + + + | Address | [address] | | | [place] [address] | + + + | Home Phone [...] + + + | Author | [facility] | | | and [place] | + + + | Organization | [facility] | | | [...] Team Providers + +------+ + | Care Exchange Operator Name | Role | Phone | [...] | [address] [place] | [place], [place] | unspecified hepatic | | | | [address] [place], [place] | [address] | cirrhosis type (HCC) | | | | [address] | [phone] | (Primary Dx) | | | | [phone] | | | +--------+ + + + [...] RN - 09/09/2016 10:30 AM PDTZelda from [facility] called and needs abdomin al ultrasound order to approved the referral and then pateint can get scheduled; should be f axed to [facility] attn to Ami at fax # [phone] she noted patient's appointment in on 10/14 at [facility] and not 09/16, explained we will make [...] | | | | | [place] | | | | | | [address] | | | | | | | | +--------+---------+ + + + documented as of this encounter Visit Diagnoses + + | Diagnosis | + + | Cirrhosis of liver without ascites, unspecified hepatic cirrhosis type (HCC) - Primary | + + documented in this encounter"
--- OUTSIDE RECORDS SUMMARY | ~2019-01-07 | XMS | Encounter Summary ---
Demographics + + + | Address | [address] | | | [place] [address] | + + + | Home Phone [...] + | Author | [facility] | + + + | Organization | [facility] [employer] [facility] | + + + | Address | Unknown | + + + | Phone | Unavailable | + + + Support + + +---------+ + | Name | Relationship | Address | Phone | + + +---------+ + | Mary Medellin | ECON | Unknown | | + + +---------+ + Care Team Providers + +------+ + | Care Marine Oiler Name | Role | Phone | + [...] | | | | | Procedures | [place], [place] | [place] for | | | | | CONSULT TO | [address] | Health and | | | | | GASTROENTERO | Phone: | Healing, | | | | | LOGY | [phone] | [address] | | | | | | Fax: | [place], [place] | | | | | | [phone] | [address] | | | | | | | Phone: | | | | | | | [phone] | | | | | | | Fax: | | | | | | | [phone] | +--------+--------+ + + + + Reason [...] | | | | Mailcode: Center | [place], [place] | | | | | for Health and | [address] | | | | | [place] [address] | [phone] | | | | | [place], [place] | | | | | | [address] | | | | | | [phone] | | | +--------+---------+ + + + [...] and spouse acknowledged understanding. Doretha Blake MD [facility] General Surgery documented in [...]
--- OUTSIDE RECORDS SUMMARY | ~2019-01-07 | XMS | Encounter Summary ---
Demographics + + + | Address | [address] | | | [place] [address] | + + + | Home Phone [...] Team Providers + +------+ + | Care Cloth Framer Name | Role | Phone | + [...] | | | | | Procedures | [address] | [address] | | | | | OFFICE | [address]ATED | DR [address] | | | | | VISIT | WAY | [place] | | | | | REGULAR | [place], | [address] Phone: | | | | | | [place] [address] | [phone] | | | | | | Phone: | Fax: | | | | | | [phone] | [phone] | | | | | | Fax: | | | | | | | [phone] | | +--------+--------+ + + + + Encounter Details +--------+---------+ + + + | Date | Type | Department | Care Team | Description | +--------+---------+ + + + | 12/29/ | Office | [facility] | Lakisha Kahn DO | Coronary | | 2019 | Visit | CARDIOLOGY [place] | [address] | arteriosclerosis | | | | [address] | [address] | (Primary Dx); | | | | [address] | [address] | Essential | | | | [place] | | hypertension | | | | [address] | | | | | | [phone] | | | +--------+---------+ + + + [...] Kahn DO - 12/29/2018 9:[address] [facility] Cardiology Cardiology Follow Up Note [...] establish care. He was previously followed at [facility]. He was last seen t here on 11/01/2017 for preoperative risk stratification for an upcoming gallbladder surgery. He has a history of a NSTEMI in April 2017, coronary angiography demonstrated severe coronar y artery disease, the films were reviewed by the interventional team at [facility] and it was deem ed that his [...] He still has the cholecystotomy tube in [facility]. He has been referred to cardiac rehab and went for his first session last week. Unfortun ately, he could only find cardiac rehab in [place] which is an hour drive each way. [...] he was referred to cardiac rehab in [place]. He was felt to be high risk [...] able to get into cardiac rehab in [place], he does not want to travel to [place] or [place] for cardiac rehab. His blood sugars have still been very uncontrolled . He has been trying to eat better. He has some mild lower extremity swelling he denies any orthopnea. Since that time, he reports that his cholecystotomy tube got hooked on the counter while he was walking and got pulled out of place. He called his surgeon in [place] and was told to cover it. He [...] okay. He underwen t an ERCP at [facility]. He reports that he had to do [...] | | | | | [place], [place] | | | | | | [address] | | | | | | | | +--------+---------+ + + + documented as of this encounter Visit Diagnoses + + | Diagnosis | + + | Coronary arteriosclerosis - Primary Coronary atherosclerosis of unspecified type of | | vessel, [place] or graft | + + | Essential hypertension Unspecified essential hypertension | + + documented in this encounter
--- OUTSIDE RECORDS SUMMARY | ~2019-01-07 | XMS | Encounter Summary ---
Demographics + + + | Address | [address] | | | [place] [address] | + + + | Home Phone [...] Author | [facility] | + + + | Organization | [facility] [employer] [facility] | + [...] Team Providers + +------+ + | Care Creative Writing Teacher Name | Role | Phone | [...] | | 2018 | | Center at [facility] [address] | PA-C [address] | Review | | | | [place] | Ren[facility] | | | | | Mailcode: OC8D | [place], [place] | | | | | [facility] | [address] | | | | | and Healing, | [phone] | | | | | [address] | | | | | | [place], [place] | | | | | | [address] | | | | | | [phone] | | | +--------+ + + + [...]
--- OUTSIDE RECORDS SUMMARY | ~2019-01-07 | XMS | Encounter Summary ---
Demographics + + + | Address | [address] | | | [place] [address] | + + + | Home Phone [...] Team Providers + +------+ + | Care Felt Hanger Name | Role | Phone | + [...] Shortness | MD [place] | [address] | | | | | of breath | [address] | [place], | | | | | Procedures | [address] | [place] | | | | | ECHO | Rd | [address] | | | | | Complete [place] | [place], [place] | Phone: | | | | | ECHO HEART | [address] | [phone] | | | | | [place] | Phone: | Fax: | | | | | [address] | [phone] | [phone] | | | | | [place] | Fax: | | | | | | ECHO HEART | [phone] | | | | | | [place] [...] | CARDIOLOGY [address] | MD [address] [facility] | | | | | [address] [place], | [address] | | | | | [place] [address] | [place], [place] | | | | | [phone] | [address] | | | | | | [phone] | | | | | | | [...] [place] | | | | | | [address] | | | | | | | [...]
--- OUTSIDE RECORDS SUMMARY | ~2019-01-07 | XMS | Encounter Summary ---
Demographics + + + | Address | [address] | | | [place] [address] | + + + | Home Phone [...] | Author | [facility] [employer] [facility] | + + + | Organization | [facility] [employer] [facility] | + [...] Providers + +------+ + | Care Diesel Pile Driver Operator Name | Role | Phone | [...] Test Results | | 2018 | | [place] [address] [address] | PA-C [address] | | | | | [address] | [address] | | | | | Mailcode: OC8D | [place], [place] | | | | | [facility] | [address] | | | | | and Healing, | [phone] | | | | | [address] | | | | | | [place], [place] | | | | | | [address] | | | | | | [phone] | | | +--------+ + + + [...]
--- OUTSIDE RECORDS SUMMARY | ~2019-01-07 | XMS | Encounter Summary ---
Demographics + + + | Address | [address] | | | [place] [address] | + + + | Home Phone [...] + | Author | [facility] [employer] [facility] | + + + | Organization | [facility] [employer] [facility] | + + + | Address | Unknown | + + + | Phone | Unavailable | + + + Support + + +---------+ + | Name | Relationship | Address | Phone | + + +---------+ + | Mary Medellin | ECON | Unknown | | + + +---------+ + Care Team Providers + +------+ + | Care Manager Auto Name | Role | Phone | + [...] | | | | | pectoris, | [place], [place] | | | | | | unspecified | [address] | | | | | | vessel or | Phone: | | | | | | lesion type, | [phone] | | | | | | unspecified | Fax: | | | | | | whether | [phone] | | | | | | [place] or | | | | | | [...] + + + + | 03/01/ | Crap Game Box Person | Digestive Health | [place], | Coronary artery | | 2019 | | Center at [facility] [address] | [address]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[place] | [address] | pectoris, | | | | Mailcode: Center | [place], [place] | unspecified vessel | | | | for Health and | [address] | or lesion type, | | | | Healing, [address] | [phone] | unspecified whether | | | | [place], [place] | | [place] or | | | | [address] | | transplanted heart | | | | [phone] | | ([facility]) (Primary Dx); | | | [...] or lesion type, | | unspecified whether [place] or transplanted heart (HCC) - Primary | + + | Coronary artery calcification | + + | Anterior ST segment depression | + + | Inferior myocardial infarction (HCC) Acute myocardial infarction of other inferior | | wall, episode of care unspecified | + + documented in this encounter"
--- OUTSIDE RECORDS SUMMARY | ~2019-01-07 | XMS | Encounter Summary ---
Demographics + + + | Address | [address] | | | [place] [address] | + + + | Home Phone [...] Team Providers + +------+ + | Care Tube Sizer And Cutter Operator Name | Role | Phone | [...] | Telephone | [facility] [place] | [facility], | Diagnostic Order | | 2017 | | GASTROENTEROLOGY | [place] [address] | (MRI liver) | | | | [address] [place] | [place], [place] [address] | | | | | [address] [place], [place] | [place], [place] | | | | | [address] | [address] | | | | | [phone] | | | +--------+ + + + [...] | | | | | [place] | | | | | | [address] | | | | | | | | +--------+---------+ + + + documented as of this encounter Visit Diagnoses Not on filedocumented in this encounter"
--- OUTSIDE RECORDS SUMMARY | ~2019-01-07 | XMS | Encounter Summary ---
Demographics + + + | Address | [address] | | | [place] [address] | + + + | Home Phone [...] + +------+ + | Care Maintenance Mechanic Helper Name | Role | Phone | [...] liver | [address] | [address] | | | | | without | [address] | [place], | | | | | ascites, | [facility], [place] | [place] | | | | | unspecified | [address] | [address] | | | | | hepatic | Phone: | Phone: | | | | | cirrhosis | [phone] | [phone] | | | | | type (HCC) | Fax: | Fax: | | | | | Procedures | [phone] | [phone] | | | | | [place], | [...] + + | 09/07/ | Office | [facility] | Donell Hunt MD | Cirrhosis of liver | | 2017 | Visit | GASTROENTEROLOGY | [address] | without ascites, | | | | [address] [place] | [place], [place] | unspecified hepatic | | | | [address] [place], [place] | [address] | cirrhosis type (HCC) | | | | [address] | [phone] | (Primary Dx); | | | | [phone] | | Esophageal varices | | | [...] ordered and patient will have drawn at [place] today; abdominal ultrasound ordered and Dr. Hunt requested it be d one here, referral placed and will call to schedule once approved, ideally this is scheduled before his 09/16 [facility] appointment; will send request to for all records to be sent to [facility] for . appointment/consultation for HCV treatment. documented [...] [place] | | | | | | [id number] | | | | | | | [...] and duplex doppler CLINICAL INFORMATION: decompenstaed | [facility] | | cirrhosis; rule out HCC and ascites. COMPARISON: 11/27/2015 and | [facility] | | MRI the 04/06/2016. FINDINGS: LIVER: [...] + + | Performing | Address | City/State/[facility] | Phone Number | | Organization | | | | + + + + + | [facility] | [address] | [place] | [phone] | | [facility] | | [address] | | | - IMAGING | | [...] 9 | 7 - 18 mg/dL | [facility] | | | | | | [facility] | | | | | | MEDICAL | | | | | | CENTER - | | | | | | LABORATORY | | + + + + + + | Creatinine | 0.95 | 0.60 - 1.30 | [facility] | | | | | mg/dL | [facility] | | | | | | MEDICAL | | | | | | CENTER - | | | | | | LABORATORY | | + + + + + + | eGFR if not | >60Comment: GLOMERULAR | >=60 | [facility] | | | | FILTRATION | mL/min/1.73m2 | [facility] | | | [place] | RATE,ESTIMATED | | MEDICAL | | | | mL/min/1.22c9Fmqq than | | CENTER - | | [...] [address] | [place] | [phone] | | [facility] | | [address] | | | - LABORATORY | | [...] [address] | [place] | [phone] | | [facility] | | [address] | | | - LABORATORY | | [...]
--- OUTSIDE RECORDS SUMMARY | ~2019-01-07 | XMS | Encounter Summary ---
Demographics + + + | Address | [address] | | | [place] [address] | + + + | Home Phone [...] | Author | [facility] [employer] [facility] | + + + | Organization | [facility] [employer] [facility] [...] Team Providers + +------+ + | Care Screwhead Stoner And Polisher Name | Role | Phone | [...] | | 2016 | | Center at [facility] [address] | Gastroenterology | Gastroenterology | | | | [place] | | | | | | Mailcode: OC8D | | | | | | [facility] | | | | | | and Healing, | | | | | | [address] | | | | | | [place], [place] | | | | | | [address] | | | | | | [phone] | | | +--------+ + + + [...]
--- OUTSIDE RECORDS SUMMARY | ~2019-01-07 | XMS | Encounter Summary ---
Demographics + + + | Address | [address] | | | [place] [address] | + + + | Home Phone [...] + + | Author | [facility] [employer] [facility] | + + + | Organization | [facility] [employer] [facility] | + [...] Team Providers + +------+ + | Care Vice President Of Operations Name | Role | Phone | [...] | | 2018 | | Center at [facility] [address] | PA-C [address] | Review | | | | [place] | [address]ato [facility] | | | | | Mailcode: OC8D | [place], [place] | | | | | [facility] | [address] | | | | | and Healing, | [phone] | | | | | [address] | | | | | | [place], [place] | | | | | | [address] | | | | | | [phone] | | | +--------+ + + + [...]
--- OUTSIDE RECORDS SUMMARY | ~2019-01-07 | XMS | Encounter Summary ---
Demographics + + + | Address | [address] | | | [place] [address] | + + + | Home Phone [...] [facility] [employer] [facility] | + + + | Organization | [facility] [employer] [facility] | + + + | Address | Unknown | + + + | Phone | Unavailable | + + + Support + + +---------+ + | Name | Relationship | Address | Phone | + + +---------+ + | Mary Medellin | ECON | Unknown | | + + +---------+ + Care Team Providers + +------+ + | Care Cupola Tapper Name | Role | Phone | + +------+ + | Shakir Monzon MD | PCP | | + +------+ + Encounter Details +--------+ + + + + | Date | Type | Department | Care Team | Description | +--------+ + + + + | 10/16/ | Exhibitor Sales | Digestive Health | Bessy Solano, | | | 2016 | | Center [place] [address] [address] | [address] | | | | | [place] | [facility] | | | | | Mailcode: OC8D | [place], [place] | | | | | [facility] | [address] | | | | | and Healing, | [phone] | | | | | [address] | | | | | | [place], [place] | | | | | | [address] | | | | | | [phone] | | | +--------+ + + + [...]
--- OUTSIDE RECORDS SUMMARY | ~2019-01-07 | XMS | Encounter Summary ---
Demographics + + + | Address | [address] | | | [place] [address] | + + + | Home Phone [...] + + + | Author | [facility] | | | and [place] | + + + | Organization | [facility] | | | [...] Team Providers + +------+ + | Care Bias Cutter Helper Name | Role | Phone | [...] | | | [address] [facility] | [place] | | | | | [address] [place] | [address] | | | | | [address] | [phone] | | | | | [phone] | | | +--------+ + + + [...] | | 2019 | Visit | | [address] | | | | | | [place] | | | | | | [address] | | | | | | | | +--------+---------+ + + + documented as of this encounter Procedures + +--------+ + + + | Procedure Name | Priori | Date/Time | Associated Diagnosis | Comments | | | ty | | | | + +--------+ + + + | EXTERNAL LAB: | Routin | 03/23/2016 | | Results for this | | PROTIME INR | e | | | procedure are in the | | | | | | results section. | + +--------+ + + + | ALPHA FETOPROTEIN, | Routin | 03/23/2016 | | Results for this | | TUMOR MARKER | e | | | procedure are in the | | | | | | results section. | + +--------+ + + + documented in this encounter Results Alpha Fetoprotein, Tumor Marker (03/23/2016) + + + + + + | Component | Value | Ref Range | Performed | Pathologist | | | | | At | Signature | + + + + + + | AFP Tumor | 25.2 (A) | 0.6 - 6.6 | | | | Marker | | | | | + + + + + + + + | Specimen | + + | Blood | + + External Lab: Joseime INR (03/23/2016) + + + + + + | Component | Value | Ref Range | Performed | Pathologist | | | | | At | Signature | + + + + + + | INR, | 1.2 (A) | 0.9 - 1.1 | EXTERNAL | | | External | | | LAB | | + + + + + + | PT, | 14.6 (A) | 12 - 14.2 | EXTERNAL | | | External | | | LAB | | + + + + + + + + | Specimen | + + | Blood | + + + +---------+ + + | Performing | Address | City/State/Zipcode | Phone Number | | Organization | | | | + +---------+ + + | EXTERNAL LAB | | | | + +---------+ + + documented in this encounter Visit Diagnoses Not on filedocumented in this encounter"
--- OUTSIDE RECORDS SUMMARY | ~2019-01-07 | XMS | Encounter Summary ---
Demographics + + + | Address | [address] | | | [place] [address] | + + + | Home Phone [...] Team Providers + +------+ + | Care Pathology Technologist Name | Role | Phone | [...] | | | | | | | SD | | | | | | | ESOPHAGOGAST | | | | | | | RODUODENOSCO | | | | | | | PY TRANSORAL | | | | | | | DIAGNOSTIC | | | | | | | SD EGD | | | | | | | TRANSORAL | | | | | | | BIOPSY | | | | | | | SINGLE/MULTI | | | | | | | PLE SD | | | | | | | ANESTH,UGI | | | | | | | ENDOSCOPY | | | | | | | EGD | | | +--------+--------+ + + + + Encounter Details +--------+---------+ + + + | Date | Type | Department | Care Team | Description | +--------+---------+ + + + | 10/26/ | Surgery | [facility] | Donell Hunt MD | EGD | | 2017 | | MED CTR MP INTRA OP | [address] | | | | | [address] | [place], [place] | | | | | [place], [place] | [address] | | | | | [address] | [phone] | | | | | [phone] | | | +--------+---------+ + + + [...] the test. This includes: All prescription medicines Rvmq-euz-koianls medicines such as aspirin or ibuprofen Street [...] heart or lung disease Date Last Reviewed: 09/10/201419993489-8604 [facility]. [address] [place] [address]. All righ ts reserved. This information is [...] what medicines and drugsyou take. This includes lqtk-dfy-dyt nter medicines, herbs, supplements, alcohol or other [...] 24 hours after surgery, have a trusted [facility] member or spouse act on your behalf. Avoid alcohol. Havea responsible adultstay with you.He or shecan watch for problems and help ke ep you safe. Date Last Reviewed: 01/16/201619999173-7257 [facility]. [address] [place] [address], [place] [address]. All righ ts reserved. This information is [...] the physician who did your procedure at [phone] if you have any questions or experience any of the following: ? Increasing abdominal pain, nausea, or vomiting. ? Chills and fever over 101F. ? New abdominal swelling or bloating. ? Signs of rectal bleeding (black or red stool). If you cannot get a hold of your physician, then call the [facility] [phone] . If necessary, report to the Emergency Department at [facility]. Quit smoking: If you smoke or [...] | | | | | [place] | | | | | | [address] | | | | | | | [...] 12/10/2016 | PROVATION | | 8:51 AMMRN: [id number] #: [id number] of : | | | 1955dmit Type: AmbulatoryAge: 61Room: [facility] 01Gender: MaleNote | | | Status: FinalizedAttending MD: Donell Hunt , [facility]rocedure: | | | Upper GI endoscopyIndications: Follow-up of esophageal | | | varicesProviders: Donell Hunt MD, Jimmy | | | SADA Cottrell, Mariama Tomas, | | | Engraver Picture, Josiah Ortiz MD (Anesthesia Staff)Referring MD: | [...] the anesthesiologist and the | | | metallurgical technician in the pre-procedure area in the [...] | | 8:59:51 AMScope Out: 9:07:17 AM [facility] | | | [place], [address] [place] [address] | | | - Resume previous diet. [...] |Scope Out: 9:07:17 AM | | | [facility], [address], [place] | | | [address] | | + + -+ + +---------+ [...] [address] | [place] | [phone] | | [facility] | | [address] | | | - LABORATORY | | [...] | | | negative for definite dysplasia. JVR:[facility]:C2NR GROSS DESCRIPTION: | | | Received in formalin labeled "Bret Newmanson, distal esophagus biopsy" | | | are two pink-flowers tissue fragments measuring from 0.3-0.35 cm, | | | submitted, all in (A1). ka:CLR:[facility] PERFORMING LABORATORY: Tissue | | | processing and slide preparation were performed by [facility], | | | [address] [facility] [address], [place] [address] (Drop Crew Laborer: | | | Catrachito Ortiz M.D. IA#: [id number]). Professional interpretation | | | was performed by [facility], [facility] | | | [place] [facility], [address], [place] [address] (Medical | | | Director: Catrachito Ortiz M.D.; CLIA#: [id number]). | | | Diagnostician: Catrachito Ortiz MD Pathologist Electronically | | | Signed 12/11/2016 | | + + + + +---------+ + + | Performing | Address | City/State/[facility] Centercode | Phone Number | | Organization | | | | + +---------+ + + | [place] [facility] | | | | | [place] | | | | + +---------+ + [...]
--- OUTSIDE RECORDS SUMMARY | ~2019-01-07 | XMS | Encounter Summary ---
Demographics + + + | Address | [address] | | | [place] [address] | + + + | Home Phone [...] Author | [facility] | + + + | Organization | [facility] | + + + | Address | Unknown | + + + | Phone | Unavailable | + + + Support + + +---------+ + | Name | Relationship | Address | Phone | + + +---------+ + | Mary Medellin | ECON | Unknown | | + + +---------+ + Care Team Providers + +------+ + | Care Poultry Trimmer Name | Role | Phone | [...] | | | | | unspecified | [address] | and Healing, | | | | | whether | Phone: | Building [address] | | | | | ascites | [phone] | [place], [place] | | | | | present | Fax: | [address] | | | | | (HCC) | [phone] | Phone: | | | | | Procedures | | [phone] | | | | | CONSULT TO | | Fax: | | | | | HEPATOLOGY | | [phone] | +--------+--------+ + + + + Consultation [...] of breath | MD Elle | [address]annan[facility] [address] | | | | | Procedures | [address] | [place] | | | | | CONSULT TO | Renato | [place], [place] | | | | | CARDIOLOGY | [place] | [address] | | | | | | [place], [place] | Phone: | | | | | | [address] | [phone] | | | | | | Phone: | Fax: | | | | | | [phone] | [phone] | | | | | | Fax: | | | | | | | [phone] | | +--------+--------+ + + + + [...] | | | | | ECHOCARDIOGR | [place], [place] | | | | | | AM, ADULT | [address] | | | | | | | Phone: | | | | | | | [phone] | | | | | | | Fax: | | | | | | | [phone] | | +--------+--------+ + + + + [...] | | | | [address] | [place], [place] | | | | | | [place], | [address] | | | | | | [place] | Phone: | | | | | | [address] | [phone] | | | | | | Phone: | Fax: | | | | | | [phone] | [phone] | | | | | | Fax: | | | | | | | [phone] | | +--------+--------+ + + + + Encounter Details +--------+---------+ + + + | Date | Type | Department | Care Team | Description | +--------+---------+ + + + | 10/13/ | Office | Digestive Health | Clinton Morillo, | Shortness of breath | | 2018 | Visit | [facility] [address] | [address] | (Primary Dx); | | | | [address] | [address] | Hepatic cirrhosis, | | | | Mailcode: Center | [place], [place] | unspecified hepatic | | | | [facility] and | [address] | cirrhosis type, | | | | Healing, Building [address] | [phone] | unspecified whether | | | | [place], [place] | | ascites present | | | | [address] | | ([facility]) | | | | [phone] | | | +--------+---------+ + + + [...] such information, when appropriate Clinton Morillo M.D. [facility] [place] ([facility]) Professor and Vice-Route Relief Driver of Surgery The Mirza Gamboa Chair for Pancreatic Disease Research [facility] [place] Cell phone: [phone] / [facility] provider's line [phone]. email: [email or web address] Elle Rutledge MD - 10/13/2017 10:10 AM [...] to the hospital and was transferred to [facility] for further care. During this hospitalization he was septic with some acute hepatic in jury and required a cholecystostomy tube to control his sepsis. He recovered and has been at home with the cholecystostomy tube. Due to his severe systemic disease and cirrhosis, he w as referred back to [facility] for surgery. He reports getting around [...]
--- OUTSIDE RECORDS SUMMARY | ~2019-01-07 | XMS | Encounter Summary ---
Demographics + + + | Address | [address] | | | [place] [address] | + + + | Home Phone [...] | Author | [facility] | + + + | Organization | [facility] [employer] [facility] | + + + | Address | Unknown | + + + | Phone | Unavailable | + + + Support + + +---------+ + | Name | Relationship | Address | Phone | + + +---------+ + | Mary Medellin | ECON | Unknown | | + + +---------+ + Care Team Providers + +------+ + | Care Franchise Sales Representative Name | Role | Phone [...] | Mailcode: Center | [place], [place] | | | | | [facility] and | [address] | | | | | [facility] 2 | [phone] | | | | | [place], [place] | | | | | | [address] | | | | | | [phone] | | | +--------+ + + + [...]
--- OUTSIDE RECORDS SUMMARY | ~2019-01-07 | XMS | Encounter Summary ---
Demographics + + + | Address | [address] | | | [place] [address] | + + + | Home Phone | | + + + | Preferred Language | Unknown | + + + | Marital Status | Single | + + + | Samaritan Affiliation | Unknown | + + + | Race | Unknown | + + + | Ethnic Group | Unknown | + + + Author + + + | Author | [facility] | | | and [place] | + + + | Organization | [facility] | | [...] Team Providers + +------+ + | Care Optical Laboratory Mechanic Name | Role | Phone | [...] | | | [address] [facility] | [place] | | | | | [address] [place] | [address] | | | | | [address] | [phone] | | | | | [phone] | | | +--------+ + + + [...] [place] | | | | | | [address] | | | | | | | [...]
--- OUTSIDE RECORDS SUMMARY | ~2019-01-07 | XMS | Encounter Summary ---
Demographics + + + | Address | [address] | | | [place] [address] | + + + | Home Phone [...] + | Author | [facility] | + + + | Organization | [facility] [employer] [facility] [...] Team Providers + +------+ + | Care Iron Guardrail Installer Name | Role | Phone | [...] | | | [address] | [facility] | | | | | Mailcode: Center | [place], [place] | | | | | [facility] and | [address] | | | | | [facility] 2 | [phone] | | | | | [place], [place] | | | | | | [address] | | | | | | [phone] | | | +--------+ + + + [...]
--- OUTSIDE RECORDS SUMMARY | ~2019-01-07 | XMS | Encounter Summary ---
Demographics + + + | Address | [address] | | | [place] [address] | + + + | Home Phone [...] + | Author | [facility] [employer] [facility] | + + + | Organization | [facility] [employer] [facility] | + [...] Team Providers + +------+ + | Care Administrative Technician Name | Role | Phone | [...] [address] [facility] | [place], [place] | | | | | Primitivo Mailcode: UHN83 | [address] | | | | | Vivian Mazariegos | [phone] | | | | | [address] [place], [place] | | | | | | [address] | | | | | | [phone] | | | +--------+ + + + [...]
--- OUTSIDE RECORDS SUMMARY | ~2019-01-07 | XMS | Encounter Summary ---
Demographics + + + | Address | [address] | | | [place] [address] | + + + | Home Phone [...] Author | [facility] | + + + | Organization | [facility] [employer] [facility] | + [...] Team Providers + +------+ + | Care Slag Wheeler Name | Role | Phone | + +------+ + | Shakir Monzon MD | PCP | | + +------+ + Encounter Details +--------+ + + + + | Date | Type | Department | Care Team | Description | +--------+ + + + + | 11/29/ | Advertising Representative | Digestive Health | Clinton Morillo, | Gallbladder | | 2018 | | Center at [facility] [address] | [address] | perforation (Primary | | | | [place] | [address] | Dx) | | | | Mailcode: Center | [place], [place] | | | | | for [facility] and | [address] | | | | | [facility] 2 | [phone] | | | | | [place], [place] | | | | | | [address] | | | | | | [phone] | | | +--------+ + + + [...]
--- OUTSIDE RECORDS SUMMARY | ~2019-01-07 | XMS | Encounter Summary ---
Demographics + + + | Address | [address] | | | [place] [address] | + + + | Home Phone [...] Team Providers + +------+ + | Care Auto Garage Mechanic Name | Role | Phone | [...] + | 01/05/ | Telephone | [facility] | Donell Hunt MD | Other (Ultrasound | | 2018 | | GASTROENTEROLOGY | [address] | order) | | | | [address] [facility] | [place], [place] | | | | | [address] [place], [place] | [address] | | | | | [address] | [phone] | | | | | [phone] | | | +--------+ + + + [...] [place] | | | | | | [id number] | | | | | | | | +--------+---------+ + + + documented as of this encounter Visit Diagnoses Not on filedocumented in this encounter"
--- OUTSIDE RECORDS SUMMARY | ~2019-01-07 | XMS | Encounter Summary ---
Demographics + + + | Address | [address] | | | [place] [address] | + + + | Home Phone [...] + | Author | [facility] | + + + | Organization | [facility] [employer] [facility] | + [...] Team Providers + +------+ + | Care Brazing Machine Tender Name | Role | Phone | + +------+ + | Shakir Monzon MD | PCP | | + +------+ + Encounter Details +--------+ + + + + | Date | Type | Department | Care Team | Description | +--------+ + + + + | 08/07/ | Pharmacy | Specialty Pharmacy | | | | 2017 | Visit | Services [address] | | | | [address] | | | | | | [place], [place] | | | | | | [address] | | | | | | [phone] | | | +--------+ + + + [...]
--- OUTSIDE RECORDS SUMMARY | ~2019-01-07 | XMS | Encounter Summary ---
Demographics + + + | Address | [address] | | | [place] [address] | + + + | Home Phone [...] Team Providers + +------+ + | Care Clerical Production Worker Name | Role | Phone [...] [place] | | | | | | [address] | | | | | | [phone] | | | +--------+ + + + [...] | | | | | [place] | | | | | | [address] | | | | | | | | +--------+---------+ + + + documented as of this encounter Visit Diagnoses Not on filedocumented in this encounter"
--- OUTSIDE RECORDS SUMMARY | ~2019-01-07 | XMS | Clinical Summary ---
Demographics + + + | Address | [address] | | | [place] [address] | + + + | Home Phone | | + + + | Preferred Language | Unknown | + + + | Marital Status | Single | + + + | Nondenominational Affiliation | Unknown | + + + | Race | Unknown | + + + | Ethnic Group | Unknown | + + + Author + + + | Author | [facility] [employer] (Historical as of | | | 10-01-18) | + + + | Organization | [facility] [employer] (Historical as of | | | 10-01-18) [...] + +------+ + | Care Supervisor Hot Dip Tinning Name | Role | Phone | + [...] | | | + +--------+ +------+-------+---------+ | [facility] | YELLOW | [id number] | | | | | PLANS | [...] | Self | [birth year] | Home: | [address] | | | al/Fam | | [phone] | [phone] [place] | | | eryn | | | [address] | [address] | + +--------+ +--------+ + +
--- OUTSIDE RECORDS SUMMARY | ~2019-01-07 | XMS | Encounter Summary ---
Demographics + + + | Address | [address] | | | [place] [address] | + + + | Home Phone [...] Providers + +------+ + | Care Data Analyst Report Writer Name | Role | Phone | [...] | [address] [place] | [place], [place] [address] | | | | | [address] [place], [place] | [place], [place] | | | | | [address] | [address] | | | | | [phone] | | | +--------+ + + + [...] [place] | | | | | | [address] | | | | | | | | +--------+---------+ + + + documented as of this encounter Visit Diagnoses Not on filedocumented in this encounter"
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
--- OUTSIDE RECORDS SUMMARY | ~2019-01-07 | XMS | Encounter Summary ---
Demographics + + + | Address | [address] | | | [place] [address] | + + + | Home Phone | | + + + | Preferred Language | Unknown | + + + | Marital Status | Single | + + + | Islam Affiliation | Unknown | + + + | Race | Unknown | + + + | Ethnic Group | Unknown | + + + Author + + + | Author | [facility] | | | and [place] | + + + | Organization | [facility] | | | [...] Team Providers + +------+ + | Care Insurance Processor Name | Role | Phone | [...] [place] | | | | | | [address] | | | | | | [phone] | | | +--------+ + + + [...] | | | | | [place] | | | | | | [address] | | | | | | | | +--------+---------+ + + + documented as of this encounter Visit Diagnoses Not on filedocumented in this encounter"
--- OUTSIDE RECORDS SUMMARY | ~2019-01-07 | XMS | Encounter Summary ---
Demographics + + + | Address | [address] | | | [place] [address] | + + + | Home Phone [...] + + | Author | [facility] [employer] [facility] | + + + | Organization | [facility] [employer] [facility] | [...] Team Providers + +------+ + | Care Technology Project Manager Name | Role | Phone | + +------+ + | Shakir Monzon MD | PCP | | + +------+ + Encounter Details +--------+------+ + + + | Date | Type | Department | Care Team | Description | +--------+------+ + + + | 10/13/ | Lab | Laboratory at [facility] | | Cirrhosis of liver | | 2018 | | [address] | | without ascites, | | | | [place], [place] | | unspecified hepatic | | | | [address] | | cirrhosis type (HCC) | | | | [phone] | | | +--------+------+ + + + [...] [facility] | [address] | [place] [address] | | | SERVICES, CORE | PARK [...] | + + + + + | [facility] | [address] | [place] [address] | | | SERVICES, CORE | PARK [...] | + + + + + | [facility] | [address] [facility] | [place] [address] | | | SERVICES, CORE | [address] [...] | | | LABORATORY | | | [place]EL[place]IC | | | SERVICES, | | | [...] AST CMNT | No Hemo | | [facility] | | | | | [...] | + + + + + | [facility] | [address] | [place] [address] | | | SERVICES, CORE | [address] | | | + + + + + documented in this encounter Visit Diagnoses + + | Diagnosis | + + | Cirrhosis of liver without ascites, unspecified hepatic cirrhosis type (HCC) | + + documented in this encounter"
--- OUTSIDE RECORDS SUMMARY | ~2019-01-07 | XMS | Encounter Summary ---
Demographics + + + | Address | [address] | | | [place] [address] | + + + | Home Phone | | + + + | Preferred Language | Unknown | + + + | Marital Status | Single | + + + | Adventism Affiliation | Unknown | + + + [...] Team Providers + +------+ + | Care Machine Stamper Name | Role | Phone | + [...] | | ascites, | [facility] [place] | [place], [place] | | | | | unspecified | [address] | [address] | | | | | hepatic | Phone: | Phone: | | | | | cirrhosis | [phone] | [phone] | | | | | type (HCC) | Fax: | Fax: | | | | | Procedures | [phone] | [phone] | | | | | [place], | [...] | | [address] [facility] | [place], [place] | unspecified hepatic | | | | [address] [place] | [address] | cirrhosis type (HCC) | | | | [address] | [phone] | (Primary Dx) | | | | [phone] | | | +--------+ + + + [...] routed to Dr. [address] at [facility] for clearance to proceed with gallbladder [...] | | [place] [facility] [place] | | | | | | [address] | | | | | | | [...]
--- OUTSIDE RECORDS SUMMARY | ~2019-01-07 | XMS | Encounter Summary ---
Demographics + + + | Address | [address] | | | [place] [address] | + + + | Home Phone [...] Author + + + | Author | [facility] [employer] [facility] | + + + | Organization | [facility] [employer] [facility] | + + + | Address | Unknown | + + + | Phone | Unavailable | + + + Support + + +---------+ + | Name | Relationship | Address | Phone | + + +---------+ + | Mary Medellin | ECON | Unknown | | + + +---------+ + Care Team Providers + +------+ + | Care Brim Rounder Name | Role | Phone | + +------+ + | Shakir Monzon MD | PCP | | + +------+ + Encounter Details +--------+ + + + + | Date | Type | Department | Care Team | Description | +--------+ + + + + | 08/07/ | Procedure | Diagnostic Imaging | | | | 2018 | Pass | Services at [facility] | | | | | | [address] | | | | | | [place] Mailcode: | | | | | | [address] [facility] | | | | | | [place], [place] | | | | | | [address] | | | | | | [phone] | | | +--------+ + + + [...]
--- OUTSIDE RECORDS SUMMARY | ~2019-01-07 | XMS | Encounter Summary ---
Demographics + + + | Address | [address] | | | [place] [address] | + + + | Home Phone [...] + + + | Author | [facility] | + + + | Organization | [facility] [employer] [facility] | + [...] Providers + +------+ + | Care Advertising Designer Name | Role | Phone | [...] | | 2018 | | Center at [facility] [address] | PA-C [address] | Review | | | | [address] | [facility] | | | | | Mailcode: OC8D | [place], [place] | | | | | [facility] | [address] | | | | | and Healing, | [phone] | | | | | Building [address] | | | | | | [place], [place] | | | | | | [address] | | | | | | [phone] | | | +--------+ + + + [...]
--- OUTSIDE RECORDS SUMMARY | ~2019-01-07 | XMS | Encounter Summary ---
Demographics + + + | Address | [address] | | | [place] [address] | + + + | Home Phone [...] + | Author | [facility] [facility] | + + + | Organization | [facility] [employer] [facility] | + + + | Address | Unknown | + + + | Phone | Unavailable | + + + Support + + +---------+ + | Name | Relationship | Address | Phone | + + +---------+ + | Mary Medellin | ECON | Unknown | | + + +---------+ + Care Team Providers + +------+ + | Care Extension Educator Name | Role | Phone | [...] | | | | | unspecified | [address] | and Healing, | | | | | whether | Phone: | Building [address] | | | | | ascites | [phone] | [place], [place] | | | | | present | Fax: | [phone] | | | | | (HCC) | [phone] | Phone: | | | | | Procedures | | [phone] | | | | | CONSULT TO | | Fax: | | | | | HEPATOLOGY | | [phone] | +--------+--------+ + + + + Encounter Details +--------+---------+ + + + | Date | Type | Department | Care Team | Description | +--------+---------+ + + + | 11/03/ | Office | Digestive Health | Marc Solano, | Cirrhosis of liver | | 2018 | Visit | Center at [facility] [address] | PA-C [address] | without ascites, | | | | [address] | [address] | unspecified hepatic | | | | Mailcode: OC8D | [place], [place] | cirrhosis type (HCC) | | | | [employer] [facility] | [address] | (Primary Dx); | | | | and Healing, | [phone] | Gallbladder | | | | Building [address] | | perforation | | | | [place], [place] | | | | | | [address] | | | | | | [phone] | | | +--------+---------+ + + + [...] Note reviewed. Paul Rice MD, MS, JACK x ray control equipment repairer Director of Clinical Hepatology [facility] Division of Gastroenterology/Hepatology Marc Villar PA-Craig - [...] and is currently bein g evaluated by [facility]// Ilia's team for cholecystectomy He has recently [...] ~2015 per patient 5. 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 MARC SOLANO PA-C [facility] 6TH FLOOR [address] Mailcode: [place] [address] documented in this encounter Plan [...]
--- OUTSIDE RECORDS SUMMARY | ~2019-01-07 | XMS | Encounter Summary ---
Demographics + + + | Address | [address] | | | [place] [address] | + + + | Home Phone [...] + | Author | [facility] [employer] [facility] | + + + | Organization | [facility] [employer] [facility] | + + + | Address | Unknown | + + + | Phone | Unavailable | + + + Support + + +---------+ + | Name | Relationship | Address | Phone | + + +---------+ + | Mary Medellin | ECON | Unknown | | + + +---------+ + Care Team Providers + +------+ + | Care Weatherization Specialist Name | Role | Phone | [...] PPV [address] | [place], | | | | | [address] | [place] [address] | | | | | Mailcode: L223A | [phone] | | | | | Nikkie Mazariegos | | | | | | [address], [place] | | | | | | [address] | | | | | | [phone] | | | +--------+ + + + [...]
--- OUTSIDE RECORDS SUMMARY | ~2019-01-07 | XMS | Encounter Summary ---
Demographics + + + | Address | [address] | | | [place] [address] | + + + | Home Phone [...] Author + + + | Author | [facility] [employer] [facility] | + + + | Organization | [facility] [employer] [facility] | + [...] Team Providers + +------+ + | Care Soil Fertility Specialist Name | Role | Phone | + +------+ + | Shakir Monzon MD | PCP | | + +------+ + Encounter Details +--------+ + + + + | Date | Type | Department | Care Team | Description | +--------+ + + + + | 11/01/ | Abstract | Cardiology General | Sharon Sanderson | | | 2018 | | at [facility] [address] | [address] | | | | | [address] Mailcode: | [address] [facility], | | | | | [address] | [place] [address] | | | | | Health and Healing, | [phone] | | | | | [facility] | | | | | | floor [place], [place] | | | | | | [address] | | | | | | [phone] | | | +--------+ + + + [...]
--- OUTSIDE RECORDS SUMMARY | ~2019-01-07 | XMS | Encounter Summary ---
Demographics + + + | Address | [address] | | | [place] [address] | + + + | Home Phone [...] + +------+ + | Care Director Of Blood Name | Role | Phone | + [...] | | | | | | | [facility] [facility] [place] | | | | | | | [address] | | | | | | | Phone: | | | | | | | [phone] | | | | | | | Fax: | | | | | | | [phone] | | + + + + + [...] | | | | | Procedures | [address] | [address] | | | | | OFFICE | CONFEDERATED | DR [address] | | | | | VISIT | WAY | [place] | | | | | REGULAR | [place], | [address] Phone: | | | | | | [place] [address] | [phone] | | | | | | Phone: | Fax: | | | | | | [phone] | [phone] | | | | | | Fax: | | | | | | | [phone] | | +--------+--------+ + + + + Encounter Details +--------+---------+ + + + | Date | Type | Department | Care Team | Description | +--------+---------+ + + + | 10/06/ | Office | [facility] | Lakisha Kahn DO | Risk factors for | | 2019 | Visit | CARDIOLOGY [place] | [address] | obstructive sleep | | | | [address] | [place], [place] | apnea (Primary Dx); | | | | [address] | [address] | Coronary | | | | [place], [place] | | arteriosclerosis; | | | | [address] | | Essential | | | | [phone] | | hypertension; | | | | [...] Block DO - 10/06/2018 10:00 AM PDT [facility] Cardiology Cardiology Follow Up Note Reason for [...] establish care. He was previously followed at [facility]. He was last seen t here on 11/01/2017 for preoperative risk stratification for an upcoming gallbladder surgery. He has a history of a NSTEMI in April 2017, coronary angiography demonstrated severe coronar y artery disease, the films were reviewed by the interventional team at [facility] and it was deem ed that his [...] He still has the cholecystotomy tube in [facility]. He has been referred to cardiac rehab and went for his first session last week. Unfortun ately, he could only find cardiac rehab in [place] which is an hour drive each way. [...] he was referred to cardiac rehab in [place]. He was felt to be high risk [...] able to get into cardiac rehab in [place], he does not want to travel to [facility] or [place] for cardiac rehab. His blood sugars have [...] of place. He called is surgeon in [place] and was told to cover it. He [...] are plans for an [facility]CP [facility] and possible cholecystectomy in the future. The [...] [place] | | | | | | [address] | | | | | | | [...] of unspecified type of vessel, | | [place] or graft | + + | Essential [...]
--- OUTSIDE RECORDS SUMMARY | ~2019-01-07 | XMS | Encounter Summary ---
Demographics + + + | Address | [address] | | | [place] [address] | + + + | Home Phone [...] Team Providers + +------+ + | Care Dedicated Local Truck Driver Name | Role | Phone | [...] | Hepatic | [place], | [address] | | | | | cirrhosis, | [place], | [place], | | | | | unspecified | KILN BURNER HELPER [address] | [place] | | | | | hepatic | [address], [place] | [address] | | | | | cirrhosis | [address] [place] | Phone: | | | | | type (HCC) | [place] | [phone] | | | | | Elevated AFP | [address] | Fax: | | | | | Procedures | Phone: | [phone] | | | | | MRI Liver | [phone] | | | | | | w wo | Fax: | | | | | | Contrast [place] | [phone] | | | | | | MRI, [...] Orders Only | [facility] [place] | [facility], | Hepatic cirrhosis, | | 2017 | | GASTROENTEROLOGY | [place] [address] | unspecified hepatic | | | | [address] | [place], [place] [address] | cirrhosis type (HCC) | | | | [address] [place], [place] | [place], [place] | (Primary Dx); | | | | [address] | [address] | Elevated AFP | | | | [phone] | | | +--------+ + + + [...] [place] | | | | | | [address] | | | | | | | [...] cirrhosis of liver COMPARISON: Ultrasound of | [facility] | | the abdomen dated November 27, 2015. CT abdomen abdomen and pelvis | [facility] | | dated July 25, 2014. Both [...] ST. | [address] | [place] | [phone] | | [facility] | | [address] | | | - IMAGING | | [...]
--- OUTSIDE RECORDS SUMMARY | ~2019-01-07 | XMS | Clinical Summary ---
Demographics + + + | Address | [address] | | | [place] [address] | + + + | Home Phone [...] + | Author | [facility] | | | and [place] | + + + | Organization | [facility] | | | and [...] Providers + +------+ + | Care Web Site Designer Name | Role | Phone | [...] | | 2018 | | | Bridgette Account Services Coordinator | CLXSyeda ) | +--------+ + + + + | 11/29/ | Refill | Kady Garza | Medication Refill | | 2018 | | | Arlene Angeles | | +--------+ + + + + | 11/24/ | Telephone | Kady Garza (Patient | | 2018 | | | Bridgette Account Services Coordinator | update. ) | +--------+ + + + + | 10/07/ | Documentati | Kady Garza (Clute | | 2018 | on | | Bridgette Account Services Coordinator | Gabe ROSS ) | +--------+ + [...] [place] | | | | | | [address] | | | | | | | [...] | | + +--------+ +--------+ +---------+--------+ | [facility] | IHS | [id number] | | | | Indemn | | SERVICE | YELLOW | | 009-Pr | | | ity | | | HAWK | | esent | | | | + +--------+ +--------+ +---------+--------+ | [place] | MEDICA | [id number] | 04/16/19 | [phone] | | Medica | | | ID [place] | | 18-Pre | 2 | | id | | | PLUS | | sent | | | | + +--------+ +--------+ +---------+--------+ | [facility] | IHS | [id number] | 05/21/19 | | | Indemn | [...] Person | Self | [birth year] | | [address] | | | al/Fam | | 6 | [phone] | [place], [place] | | | eryn | | | 1 (Home) | [address] | + +--------+ +--------+ + + | Bret Espinal Jr. | Person | Self | [birth year] | | [address] | | | al/Fam | | 1956 | [phone] | [place] | | | eryn | | | 1 ([place]) | [address] | + +--------+ +--------+ + + Advance Directives + + + + + | Type | Date Recorded | Patient | Explanation | | | | Labor Economics Teacher | | + + + + + | Power of | | | | | Die Maker Apprentice | | | | + + + [...]
--- OUTSIDE RECORDS SUMMARY | ~2019-01-07 | XMS | Encounter Summary ---
Demographics + + + | Address | [address] | | | [place] [address] | + + + | Home Phone [...] + + | Author | [facility] [facility] | + + + | Organization | [facility] [employer] [facility] | + [...] Team Providers + +------+ + | Care Licensed Master Social Worker Name | Role | Phone | + +------+ + | Shakir Monzon MD | PCP | | + +------+ + Encounter Details +--------+ + + + + | Date | Type | Department | Care Team | Description | +--------+ + + + + | 10/05/ | Abstract | Digestive Health | Clinic, Hepatology | | | 2016 | | [place] [address] [address] | | | | | | [address] | | | | | | Mailcode: OC8D | | | | | | [place] for [facility] | | | | | | and Healing, | | | | | | Building [address] | | | | | | [place], [place] | | | | | | [address] | | | | | | [phone] | | | +--------+ + + + [...]
--- OUTSIDE RECORDS SUMMARY | ~2019-01-07 | XMS | Encounter Summary ---
Demographics + + + | Address | [address] | | | [place] [address] | + + + | Home Phone [...] Providers + +------+ + | Care It Service Delivery Manager Name | Role | Phone | [...] | | | | | [address] | [address] [place] | | | | | [place], [place] | [place] [address] | | | | | [address] | [phone] | | | | | [phone] | | | +--------+ + + + [...] Brandy [place]la, | | | IV | ddsi-ene-kbkdxf catheter system; | RN | | | [...] [place] | | | | | | [address] | | | | | | | | +--------+---------+ + + + documented as of this encounter Visit Diagnoses Not on filedocumented in this encounter"
--- OUTSIDE RECORDS SUMMARY | ~2019-01-07 | XMS | Encounter Summary ---
Demographics + + + | Address | [address] | | | [place] [address] | + + + | Home Phone | | + + + | Preferred Language | Unknown | + + + | Marital Status | Single | + + + | Catholic Affiliation | Unknown | + + + | Race | Unknown | + + + | Ethnic Group | Unknown | + + + Author + + + | Author | [facility] | | | and [place] | + + + | Organization | [facility] | | | [...] Team Providers + +------+ + | Care Medical File Clerk Name | Role | Phone | [...] | | | | | | | DE | | | | | | | ESOPHAGOGAST | | | | | | | RODUODENOSCO | | | | | | | PY TRANSORAL | | | | | | | DIAGNOSTIC | | | | | | | DE EGD | | | | | | | TRANSORAL | | | | | | | BIOPSY | | | | | | | SINGLE/MULTI | | | | | | | PLE DE | | | | | | | ANESTH,UGI | | | | | | | ENDOSCOPY | | | | | | | EGD | | | +--------+--------+ + + + + Encounter Details +--------+ + + + + | Date | Type | Department | Care Team | Description | +--------+ + + + + | 12/10/ | Anesthesia | [facility] | OrtizJosiah | | | 2017 | Event | MED CTR MP INTRA OP | Artem PEREIRA MD [address] | | | | | [address] | [address] [place] | | | | | [place], [place] | [place] [address] | | | | | [address] | [phone] | | | | | [phone] | | | +--------+ + + + + Anesthesia Record + + + + + | Procedure Name | Responsible | Anesthesia Start | Anesthesia Stop Time | | | Anesthesiologist | Time | | + + + + + | MALIA (N/A Nellie) | Joisah Ortiz | 12/10/1651 | 12/10/16911 | | [...] 12/10/16943 by | | eral | Forearm; feum-zrg-xpldle catheter | Taylor Jauregui, | Catherine Landers [...] | | | | | [place], [place] | | | | | | [phone] | | | | | | | [...]
--- OUTSIDE RECORDS SUMMARY | ~2019-01-07 | XMS | Encounter Summary ---
Demographics + + + | Address | [address] | | | [place] [address] | + + + | Home Phone [...] Team Providers + +------+ + | Care Cake Maker Name | Role | Phone | [...] | 11/17/ | Telephone | [facility] [place] | Donell Hunt MD | Other | | 2018 | | GASTROENTEROLOGY | [address] | | | | | [address] [facility] | [place], [place] | | | | | [address] [place] | [address] | | | | | [address] | [phone] | | | | | [phone] | | | +--------+ + + + [...] | | | | | [place] | | | | | | [address] | | | | | | | | +--------+---------+ + + + documented as of this encounter Visit Diagnoses Not on filedocumented in this encounter"
[~2019-01-07 09:24] MED LIST changes: +ELIQUIS5 M1 PO
--- OUTSIDE RECORDS SUMMARY | 2019-01-07 09:28 | XMS ---
PreManage Notification: BEHZAD LANDON Security Privacy Officer Events No recent Security Events currently on file CRITERIA MET - [facility] - 2 Visits in 30 Days CARE PROVIDERS ANDREEA CHILDRESS [facility] 05/16/2018-Current PHONE: Unknown REBECCA RIZZO Nurse Practitioner 08/30/2018-Current PHONE: [phone] Name Unknown Clinic/[place] 12/19/2018-Current PHONE: [phone] DR ANDREEA CHILDRESS Primary Care Current PHONE: [phone] Ciaran has no Care Guidelines for this patient. Care History Medical/Surgical 05/16/2018 [facility] \T\middot;\T\nbsp; PATIENT IS A [place] ELIGIBLE. \T\middot;\T\nbsp; PLEASE REFER PATIENT TO [facility] FOR NON EMERGENT MEDICAL NEEDS. \T\middot;\ T\nbsp; [facility] CAN SEE PATIENTS SAME DAY FOR APTS IF PATIENT CALLS FIRST TH[facility] IN THE MORNING. E.D. VISIT COUNT (12 MO.) 4 [facility]. TOTAL 4 NOTE: Visits indicate total known visits. 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 - MCC (current) use of insulin - 1 Type 2 diabetes mellitus without complications - Acute embolism and thombos unsp deep veins of l low extrem - Unspecified otitis externa, left ear - OTHER SPECIFIED DISORDERS OF EYE AND ADNEXA - Other specified disorders of eye and adnexa - Unspecified visual disturbance - Other mcc (current) drug therapy - Essential (primary) hypertension 05/13/2018 11:45 [facility] [place] TYPE: Emergency COMPLAINT: - GALL TUBE ISSUES DIAGNOSES: - MCC (current) use of systemic steroids - Essential (primary) hypertension - Encounter for fit/adjst of non-vascular catheter - MCC (current) use of opiate analgesic - 1 Type 2 diabetes mellitus without complications - Other mcc (current) drug therapy INPATIENT VISIT TRACKING (12 MO.) No inpatient visits to display in this time frame [id number]
--- NOTE | 2019-01-07 19:43 | EKG ---
[facility] [address] [facility] [place] [address] Signed Sinus tachycardia Inferior infarct (cited on or before 27-NOV-2015) Abnormal ECG When compared with ECG of 09-NOV-2017 10:54, Vent. rate has increased BY 43 BPM Nonspecific T wave abnormality, worse in Lateral leads Confirmed by KATELYNN ADORNO MD ([id number]) on 01/07/2019 7:43:09 PM Electronically Signed By: KATELYNN ADORNO MD 01/07/191942 PATIENT NAME: DIPESHBEHZAD JR Electrocardiogram DATE OF : 55 PHYSICIAN: KATELYNN ADORNO MD REPORT #: [id number] REPORT IS CONFIDENTIAL AND NOT TO BE RELEASED WITHOUT AUTHORIZATION
== END 2019-01-07 14:34 | disposition home or self-care (01) ==
LOC: ED 09:24
DX: R05 Cough (principal); R11.2 Nausea with vomiting, unspecified; R68.89 Other general symptoms and signs; Z88.8 Allergy status to other drugs, medicaments and biological substances; Z79.4 Long term (current) use of insulin; Z79.899 Other long term (current) drug therapy
CPT/HCPCS: 71045; 76705; 80053; 81001; 83605; 83690; 83880; 84484; 85025; 87502; 87880; 93005; 93010; 96361; 96374; 99284-25; J2405; J7030

== ENCOUNTER 2019-09-08 11:35 | Day surgery (SDC) | payer MEDICARE, OTHER ==
[~2019-09-08] VITALS: Ht 177.8 cm; Wt 106.6 kg
[~2019-09-08 11:35] MED LIST changes: +AMLODIPINE BESY10 MG PO; +ASPIR 8181 MG PO
--- NOTE | 2019-09-08 14:34 | NUR ---
09/08/19 1434 Jennifer Adler 1423-PT TO PACU IN SUPINE POSITION. UNRESPONSIVE TO VOICE AND TACTILE STIMULI. SLEEPING WITH ORAL AIRWAY AND NPA IN PLACE. BREATHING EASY AND UNLABORED ON 10 L O2 VIA SIMPLE MASK. REPORT RECEIVED FROM DIALYSIS REGISTERED NURSE. CBG 111. 1430- PT CONTINUES TO SLEEP WITH ORAL AIRWAY AND NPA IN PLACE. BREATHING EASY AND UNLABORED. SPO2 >95% ON 6 L O2 VIA SIMPLE MASK. WILL CONTINUE TO MONITOR.
--- NOTE | 2019-09-11 10:52 | [place] ---
[facility] [address] [place], [place] [address] Signed DATE OF OPERATION: 09/08/2019 SURGEON: Adi Cutler MD PREOPERATIVE DIAGNOSIS: Chronic otitis externa with meatal stenosis of the left ear canal. POSTOPERATIVE DIAGNOSIS: Chronic otitis externa with meatal stenosis of the left ear canal. PROCEDURE PERFORMED: Canal meatoplasty of the left ear. INDICATIONS: This 64-year-old has had this procedure done on the right ear, which was the worse of 2 sides, but his disease is characterized by constant debris filling up the ears with otitis externa both acute and subacute and chronic. The patient barely has any space at all to clear out his ear canals under the microscope. Because of nonresolving problems and infection, the solution for this is to remove cartilage, soft tissue and make the bony ear canal larger. DESCRIPTION OF PROCEDURE: The patient was placed in supine position and was placed under heavy sedation with ketamine and Propofol. A 2.5 mL of 1% lidocaine with 1:100,000 epinephrine and 2 mL of 0.5% Marcaine with 1:200,000 epinephrine were injected into the meatus and the lateral canal in anticipation of endaural incision. This incision after routine prep and drape was made with a [place] #67 blade, incised in between the tragus and the roots of the helix, then down the inferior portion of meatus in the ear canal about 6 o'clock. This incision was carried to cartilage and very thick fibrotic subepithelial tissue down to bony canal. A transverse flap was then cut with a 72 [place] blade, reaching down into the canal almost to the junction where the meatus turned into the bony canal, where there was no hair. The elevation was done by cutting the flaps as thin as possible with a 67 blade, going from the superior incision and trying to make the flap thin as possible, so just have some hair follicles and dermis. There was very dense thick connective tissue, basically subepithelial fibrosis and soft tissue. This was removed with scissors, the [place] blades, and cup forceps. Once the lateral part of the canal could be seen, it was ascertained that the canal also had a small dimension. So, a piece of still sick posterior canal skin was removed and turned over on itself. A piece of it was not even a square centimeter, but all of the sick connective tissue was dissected off the back side and it was kept wet and safe for future grafting. Then, PATIENT NAME: BEHZAD LANDON JR OPERATIVE REPORT DATE OF : 55 REPORT #: [id number] PHYSICIAN: ADI CUTLER MD PCP: REBECCA RIZZO REPORT IS CONFIDENTIAL AND NOT TO BE RELEASED WITHOUT AUTHORIZATION [facility] [address] [place], [place] [address] Signed using suction irrigation, the posterior aspect of the canal was drilled down widening it and that graft was placed right back on to it, and then the meatal skin, which had been greatly thinned out, at this time minus all the connective tissue, it was reapplied. Two pieces of Silicone sheeting were placed across the graft and the meatal flap down into the ear canal. Also, some pieces of Gelfoam-soaked and ciprofloxacin were placed down into the canal, and then Adaptic gauze with mupirocin ointment was rolled up and placed into the meatus to help extended open to the new enlarged diameter. Mastoid dressing was applied. The patient was then sent to recovery room in good condition. Estimated blood loss was between 20 mL and 30 mL. The patient did well. No complications. Adi Cutler MD [facility] /[id number] Copies: ~ PATIENT NAME: BEHZAD LANDON OPERATIVE REPORT DATE OF : 55 REPORT #: [id number] PHYSICIAN: ADI CUTLER MD PCP: REBECCA RIZZO REPORT IS CONFIDENTIAL AND NOT TO BE RELEASED WITHOUT AUTHORIZATION
== END 2019-09-08 15:35 | disposition home or self-care (01) ==
LOC: OPS 11:35 → DS 11:35 → OPS 13:00
PROVIDERS: Otolaryngology
PROC: 09N Ear, Nose, Sinus, Release (ICD-10-PCS; principal; 2019-09-08 13:00)
DX: Q16.1 Congenital absence, atresia and stricture of auditory canal (external) (principal); H60.62 Unspecified chronic otitis externa, left ear; I11.0 Hypertensive heart disease with heart failure; I50.9 Heart failure, unspecified; E11.9 Type 2 diabetes mellitus without complications; I25.2 Old myocardial infarction; K21.9 Gastro-esophageal reflux disease without esophagitis; Z79.899 Other long term (current) drug therapy; Z98.890 Other specified postprocedural states; Z79.82 Long term (current) use of aspirin; Z79.4 Long term (current) use of insulin; Z87.891 Personal history of nicotine dependence
CPT/HCPCS: J1100; J1885; J2250; J2405; J2704; J2765; J3010; J7121

== ENCOUNTER → 2020-03-30 | Emergency (ER) | payer MEDICARE, OTHER ==
[~2020-03-30] VITALS: Ht 152.4 cm; Wt 109.0 kg
[~2020-03-30] MED LIST changes: +BISOPROLOL FUMA10 MG PO
--- OUTSIDE RECORDS SUMMARY | 2020-03-30 12:10 | XMS ---
PreManage Notification: BEHZAD LANDON Security Back Strip Machine Operator Events No recent Security Events currently on file CRITERIA MET - History of Sepsis Dx CARE PROVIDERS ANDREEA CHILDRESS [facility] 05/16/2018-Current PHONE: Unknown REBECCA RIZZO Nurse Practitioner 08/30/2018-Current PHONE: [phone] [facility] 12/19/2018-[facility] PHONE: [phone] Ciaran has no Care Guidelines for this patient. Care History Medical/Surgical 05/16/2018 [facility] \T\middot;\T\nbsp; PATIENT IS A [place] ELIGIBLE. \T\middot;\T\nbsp; PLEASE REFER PATIENT TO [facility] FOR NON EMERGENT MEDICAL NEEDS. \T\middot;\ T\nbsp; [facility] CAN SEE PATIENTS SAME DAY FOR APTS IF PATIENT CALLS FIRST THING IN THE MORNING. [place] VISIT COUNT (12 MO.) 2 [facility] [place] TOTAL 2 NOTE: Visits indicate total known visits. ED/UCC VISIT TRACKING (12 MO.) 03/30/2020 12:09 [facility] [place] TYPE: Emergency COMPLAINT: - ABD PAIN 02/22/2020 19:44 [facility] [place] TYPE: Emergency COMPLAINT: - CHEST PAIN DIAGNOSES: - Chest pain, unspecified - Contact with and (suspected) exposure to other viral communicable diseases - Allergy status to narcotic agent - Essential (primary) hypertension - long-term (current) use of insulin - Old myocardial infarction - Other prison (current) drug therapy - Type 2 diabetes mellitus without complications - long-term (current) use of aspirin - Nicotine dependence, unspecified, uncomplicated - Atherosclerotic heart disease of [place] coronary artery with unspecified angina pectoris INPATIENT VISIT TRACKING (12 MO.) [facility] DIAGNOSES: - Perforation of gallbladder - Acute cholecystitis - Atherosclerotic heart disease of [place] de[place] coronary artery without angina pectoris - Alcoholic cirrhosis of liver without ascites - Chest Pain [email or web address]
== END ==
LOC: ED 12:08
DX: T85.698A Other mechanical complication of other specified internal prosthetic devices, implants and grafts, initial encounter (principal); K81.9 Cholecystitis, unspecified; E11.9 Type 2 diabetes mellitus without complications; I10 Essential (primary) hypertension; I25.10 Atherosclerotic heart disease of native coronary artery without angina pectoris; F17.200 Nicotine dependence, unspecified, uncomplicated; Z88.5 Allergy status to narcotic agent; Z79.899 Other long term (current) drug therapy; Z79.4 Long term (current) use of insulin; Z79.82 Long term (current) use of aspirin
CPT/HCPCS: 74177; 80053; 83605; 83690; 85025; 99285-25; C9803; J0696; J2270; Q9967; U0003

== ENCOUNTER 2021-03-13 14:17 | Emergency (ER) | payer MEDICARE, OTHER ==
[~2021-03-13] VITALS: Ht 177.8 cm; Wt 100.7 kg
--- OUTSIDE RECORDS SUMMARY | 2021-03-13 14:20 | XMS ---
PreManage Notification: BEHZAD LANDON Security Sports Official Events No recent Security Events currently on file CRITERIA MET - PDMP CARE PROVIDERS ANDREEA CHILDRESS [facility] 05/16/2018-Current PHONE: [phone] REBECCA RIZZO Nurse Practitioner 08/30/2018-Current PHONE: [phone] DIANNE SAEED [facility] Current PHONE: Unknown GARY WILLOUGHBY [facility] 12/19/2018-[facility] PHONE: [phone] Ciaran has no Care Guidelines for this patient. Care History Medical/Surgical 05/16/2018 [facility] \T\middot;\T\nbsp; PATIENT IS A [place] ELIGIBLE. \T\middot;\T\nbsp; PLEASE REFER PATIENT TO [facility] FOR NON EMERGENT MEDICAL NEEDS. \T\middot;\ T\nbsp; [facility] CAN SEE PATIENTS SAME DAY FOR APTS IF PATIENT CALLS FIRST THING IN THE MORNING. E.D. VISIT COUNT (12 MO.) 2 [facility]. TOTAL 2 NOTE: Visits indicate total known visits. ED/UCC VISIT TRACKING (12 MO.) 03/13/2021 14:19 MITZI [place] TYPE: Emergency COMPLAINT: - UPPER ABDOMINAL PAIN, NAUSEA 03/30/2020 12:09 MIT[facility] [place] TYPE: Emergency COMPLAINT: - ABD PAIN DIAGNOSES: - care home (current) use of insulin - Type 2 diabetes mellitus without complications - paper supervisor (current) use of aspirin - Other penitentiary (current) drug therapy - Essential (primary) hypertension - Other mechanical complication of other specified internal prosthetic devices, implants and grafts, initial encounter - Allergy status to narcotic agent - Atherosclerotic heart disease of apache coronary artery without angina pectoris - Nicotine dependence, unspecified, uncomplicated - Cholecystitis, unspecified - Unspecified abdominal pain INPATIENT VISIT TRACKING (12 MO.) 03/31/2020 03:41 [facility] [place] TYPE: Internal Medicine DIAGNOSES: - Dislodged cholecysteostomy tube - paper supervisor (current) use of insulin - Breakdown (mechanical) of other gastrointestinal prosthetic devices, implants and grafts, initial encounter - Acute cholecystitis - Breakdown (mechanical) of other gastrointestinal prosthetic devices, implants and grafts, subsequent encounter - Mixed hyperlipidemia - Type 2 diabetes mellitus with hyperglycemia [email or web address]
--- NOTE | 2021-03-14 13:33 | EKG ---
[facility] [address] [facility] [place], [place] [address] Signed Sinus rhythm with 1st degree AV block Septal infarct , age undetermined Inferior infarct , age undetermined Abnormal ECG Confirmed by DIEGO AGUILA DO ([id number]) on 03/14/2021 1:33:13 PM Electronically Signed By: DIEGO AGUILA DO 03/14/21 1333 PATIENT NAME: DIPESHBEHZAD JR Electrocardiogram DATE OF : 55 PHYSICIAN: DIEGO AGUILA DO REPORT #: [id number] REPORT IS CONFIDENTIAL AND NOT TO BE RELEASED WITHOUT AUTHORIZATION
== END 2021-03-13 17:36 | disposition home or self-care (01) ==
LOC: ED 14:17
DX: R10.13 Epigastric pain (principal); I10 Essential (primary) hypertension; E11.9 Type 2 diabetes mellitus without complications; K74.60 Unspecified cirrhosis of liver; I25.2 Old myocardial infarction; I25.10 Atherosclerotic heart disease of native coronary artery without angina pectoris; F17.200 Nicotine dependence, unspecified, uncomplicated; Z88.5 Allergy status to narcotic agent; Z79.4 Long term (current) use of insulin; Z79.82 Long term (current) use of aspirin; Z79.899 Other long term (current) drug therapy
CPT/HCPCS: 71045; 80053; 83690; 84484; 85025; 93005; 93010; 99284-25

== ENCOUNTER 2022-01-28 13:58 | Inpatient (IN) | payer MEDICARE, OTHER ==
[~2022-01-28] VITALS: Ht 177.8 cm; Wt 101.5 kg
[~2022-01-28 13:58] MED LIST changes: -CRESTOR10 MG PO; +CRESTOR40 MG PO; +LANTUS SOL100 UNIT/1 SUB-Q; -LANTUS100 UNITS/ SUB-Q; +NOVOLOG FL100 UNIT/1 SUB-Q; -NOVOLOG100 UNIT/2 SUB-Q
--- NOTE | 2022-01-28 22:45 | NUR ---
pt RECEIVED LOADING DOSE TAMIFLU-75MG PO IN ED. ORDERED X1 DOSE PO 75MG TAMIFLU ORDERED HERE. CLARIFIED WITH DR MOURA, PER DR MOURA-OKAY TO NOT GIVE X1 DOSE ORDERED FOR TONIGHT-READ BACK TO CLARIFY. PRIMARY RN AUDRA MADE AWARE.
--- NOTE | 2022-01-29 02:35 | NUR ---
pt ASKING FOR SOMETHING FOR PAIN AND COUGH. TELEPHONE ORDER READ BACK FOR TESSALON PERLES 100MG-200MG PO Q8HPRN FOR COUGH AND OXYCODONE 2.5-5MG PO Q6HPRN FOR PAIN. DISCUSSED CONFLICT W/ BILL FROM TELEPHARMACY REGARDING REACTION TO HYDROMORPHONE. PER TELEPHARMACY, OKAY TO CONTINUE.
--- NOTE | 2022-01-29 06:12 | NUR ---
PATIENT APPEARS TO BE RESTING WITH EYES CLOSED. AWAKES EASILY. LUNG SOUNDS COURSE THROUGHOUT. NO COMPLAINTS OF PAIN AT THIS TIME. NO OTHER NEEDS AT THIS TIME. CALL LIGHT WITHIN REACH.
--- NOTE | 2022-01-29 07:35 | NUR ---
receieved shift report. pt awake in bed. call light within reach.
--- NOTE | 2022-01-29 09:26 | NUR ---
PT IN BED. VITALS AND IS AND OS COMPLETE. NO FURTHER NEEDS. CALL LIGHT WITHIN REACH.
--- NOTE | 2022-01-29 09:46 | NUR ---
PT UP TO BATHROOM AND PT REPORTS LOOSE STOOL AND A VOID. PT BACK TO BED, HOSPITAL SOCKS PLACED AND PT STEADY ON HIS FEET. CALL LIGHT WITHIN REACH AND PT SITTING ON EDGE OF BED PER REQUEST. NO OTHER CONCERNS.
--- NOTE | 2022-01-29 10:01 | NUR ---
PT RESTING IN BED AND WATCHING TV. EDUCATION GIVEN ON FLU AND MEDICATION GIVEN. ALL QUESTIONS ANSWERED. NO OTHER CONCERNS AT THIS TIME.
--- NOTE | 2022-01-29 11:22 | NUR ---
PT REPORTS PAIN IN IV SITE WITH MEDICATION INFUSING. IV STOPPED AND IV WNL. SITE FLUSHED WITH NO CONCERNS. IV MEDICATION MOVED TO RIGHT AC. MEDICATION STARTED AND PT REPORT MINIMAL IRRITATION AND CONCERNS. EDUCAITON GIVEN AND PT VERBALIZED UNDERSTANDING.
--- NOTE | 2022-01-29 11:46 | NUR ---
completed. iv fluids infusing per order.
[2022-01-29] MEDS ORDERED: FLOMAX0.4 MG PO (11:55)
[2022-01-29] MEDS ORDERED: OZEMPIC1 MG/0.71 SUB-Q (11:57)
[2022-01-29] MEDS ORDERED: NITROSTAT0.4 MG SL (12:03)
--- NOTE | 2022-01-29 12:28 | NUR ---
pt call light answered. pt req to use bathroom. pt stated he just needed to urinate. i asked pt if we could stand at side of bed and use urinal and he said ok. pt then asked if i could unhook him from iv. i let him know we are able to use the urinal wo doing so. 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 pt asked again "well why can't you just unhook me". pt done voiding. pt back to bed. no further needs. call light within reach
--- NOTE | 2022-01-29 12:31 | NUR ---
PT EATING LUNCH AND MEDICATION GIVEN. "I REALLY WANT TO GO HOME." PLAN OF CARE DISCUSSED. NO OTHER CONCERNS.
[2022-01-29] MEDS ORDERED: LIALDA1.2 GM PO (12:52)
[2022-01-29] MEDS ORDERED: OSELTAMIVIR PHO30 MG PO (14:46)
--- NOTE | 2022-01-29 15:03 | NUR ---
PT REPORTS HE WANTS TO LEAVE. MD AT BEDSIDE TALKING TO PT. PT CONTINUES TO WANT TO LEAVE AMA. CHARGE NURSE AT BEDSIDE. PT CALLED AND PLANS TO LEAVE. ALL QUESTIONS ANSWERED AND PT REFUSED TO REMAIN IN HOSPITAL. PT AWARE OF CONCERNS AND PT GETTING DRESSED.
--- NOTE | 2022-01-31 19:00 | EKG ---
[facility] [address] [facility] [place] [address] Signed Sinus rhythm with 1st degree AV block Cannot rule out Inferior infarct (cited on or before 22-FEB-2020) Abnormal ECG When compared with ECG of 13-MAR-2021 14:54, Criteria for Septal infarct are no longer present Nonspecific T wave abnormality now evident in Lateral leads Confirmed by JUANITA MOURA MD ([id number]) on 01/31/2022 7:00:23 PM Electronically Signed By: JUANITA MOURA MD 01/31/221899 PATIENT NAME: BEHZAD LANDON Electrocardiogram DATE OF : 55 PHYSICIAN: JUANITA MOURA MD REPORT #: [id number] REPORT IS CONFIDENTIAL AND NOT TO BE RELEASED WITHOUT AUTHORIZATION
== END 2022-01-29 15:10 | disposition left against medical advice (07) | DRG 194 ==
LOC: ED 13:58 → MS 20:04
PROVIDERS: ADMIT Internal Medicine; ATTEND Internal Medicine
DX: J10.1 Influenza due to other identified influenza virus with other respiratory manifestations (principal); N17.9 Acute kidney failure, unspecified; Z20.822 Contact with and (suspected) exposure to COVID-19; B19.20 Unspecified viral hepatitis C without hepatic coma; I25.10 Atherosclerotic heart disease of native coronary artery without angina pectoris; I11.0 Hypertensive heart disease with heart failure; I50.9 Heart failure, unspecified; I95.9 Hypotension, unspecified; E11.42 Type 2 diabetes mellitus with diabetic polyneuropathy; K70.30 Alcoholic cirrhosis of liver without ascites; F10.20 Alcohol dependence, uncomplicated; F17.210 Nicotine dependence, cigarettes, uncomplicated; I25.2 Old myocardial infarction; Z98.52 Vasectomy status; Z98.890 Other specified postprocedural states; Z88.6 Allergy status to analgesic agent; Z79.4 Long term (current) use of insulin; Z79.82 Long term (current) use of aspirin; Z79.899 Other long term (current) drug therapy
CPT/HCPCS: 36415; 71045; 80048; 80053; 80076; 83036; 83605; 83735; 85025; 87040; 87502; 93005; 93010; 96360; 96361; 99285-25; C9803; J1815; J3475; J7030; J7121; U0003

== ENCOUNTER 2022-05-11 10:23 | Emergency (ER) | payer MEDICARE, OTHER ==
[~2022-05-11] VITALS: Ht 177.8 cm; Wt 97.2 kg
[~2022-05-11 10:23] MED LIST changes: +FLOMAX0.4 MG PO; +LIALDA1.2 GM PO; +OSELTAMIVIR PHO30 MG PO; +OZEMPIC1 MG/0.71 SUB-Q
[2022-05-11] MEDS ORDERED: PREDNISONE20 MG PO (12:21)
[2022-05-11] MEDS ORDERED: IPRAT-ALBUT 0.5-3 ML INH (12:21)
[2022-05-11] MEDS ORDERED: BENZONATATE100 MG PO (14:01)
== END 2022-05-11 15:26 | disposition home or self-care (01) ==
LOC: ED 10:23
DX: J20.9 Acute bronchitis, unspecified (principal); E11.9 Type 2 diabetes mellitus without complications; I11.0 Hypertensive heart disease with heart failure; I50.9 Heart failure, unspecified; I25.2 Old myocardial infarction; I25.10 Atherosclerotic heart disease of native coronary artery without angina pectoris; F17.200 Nicotine dependence, unspecified, uncomplicated; Z20.822 Contact with and (suspected) exposure to COVID-19; Z88.5 Allergy status to narcotic agent; Z79.899 Other long term (current) drug therapy; Z79.4 Long term (current) use of insulin; Z79.82 Long term (current) use of aspirin
CPT/HCPCS: 36415; 71045; 80053; 83880; 85025; 87502; 96374; 99285-25; 99406; C9803; J2930; J7030; J7040; U0003

== ENCOUNTER 2023-11-29 03:12 | Emergency (ER) | payer MEDICARE, OTHER ==
[~2023-11-29] VITALS: Ht 177.8 cm; Wt 107.8 kg
[~2023-11-29 03:12] MED LIST changes: +BENZONATATE100 MG PO; +IPRAT-ALBUT 0.5-3 ML INH; +PREDNISONE20 MG PO
[2023-11-29] MEDS ORDERED: IBLOOD GLUCOSE TEST STRIP 1 EA TEST VI ONE (03:30)
[2023-11-29 04:15] LABS: BASOPHILS 1.2 % (0-2); EOSINOPHILS 6.5 % (0-6); HEMATOCRIT 41.1 % (35.0-50.0); HEMOGLOBIN 14.5 g/dL (12.0-18.0); LYMPHOCYTES 28.1 % (24-44); MCH 32.8 (27-36); MCHC 35.3 g/dl (30-36); MONOCYTES 10.1 % (0-12); NEUTROPHILS 54.1 % (39-80); PLATELET COUNT 83 K/uL (140-440); RBC 4.42 M/ul (4.3-5.7); RDW 14.6 (10.5-15.0)
[2023-11-29 04:29] LABS: ALBUMIN 2.9 g/dL (3.4-5.0); ALBUMIN/GLOBULIN RATIO 0.74 (1.1-2.4); ALCOHOL, MEDICAL <3 ng/dL (<3); ALKALINE PHOSPHATASE 94 U/L (46-116); ALT (SGPT) 24 U/L (14-59); ANION GAP 11.8 (7-21); AST (SGOT) 20 U/L (15-37); BILIRUBIN, TOTAL 0.9 ng/dL (0.2-1.0); BUN/CREATININE RATIO 12.57 (6.0-28.6); CALCIUM 9.1 mg/dL (8.5-10.1); CARBON DIOXIDE 23 mmol/L (21-32); CHLORIDE 113 mmol/L (98-107); CREATININE, SERUM 1.59 mg/dL (0.70-1.30); GLOMERULAR FILTRATION RATE,EST 47 mL/min (>60); POTASSIUM 3.8 mmol/L (3.5-5.1); PROTEIN, TOTAL 6.8 g/dL (6.4-8.2); UREA NITROGEN 20 mg/dL (7-18)
[2023-11-29 04:34] LABS: LACTIC ACID, BLOOD 1.5 mmol/L (0.4-2.0)
[2023-11-29 04:46] LABS: BILIRUBIN, URINE NEGATIVE (negative); BLOOD/HGB, URINE SMALL (Negative); KETONE, URINE NEGATIVE (Negative); LEUK ESTERASE, URINE NEGATIVE (negative); NITRITE, URINE NEGATIVE (negative); PH, URINE 6.5 (5-7)
[2023-11-29 04:56] LABS: BACTERIA, URINE NONE SEEN /hpf (negative); CASTS, URINE NONE SEEN \\lpf; COLLECTION TYPE, URINE CLEAN CATCH; CRYSTALS, URINE NONE SEEN (0-1+); EPITHELIAL CELLS, URINE 0 /lpf (0-1+); REFLEX CULTURE, URINE No (No); WHITE BLOOD CELLS, URINE 0-1 /HPF (0-5)
[2023-11-29 05:01] LABS: AMPHETAMINES, URINE NEGATIVE (NEGATIVE); BARBITURATES, URINE NEGATIVE (NEGATIVE); BENZODIAZEPINE, URINE NEGATIVE (NEGATIVE); BUPRENORPHINE, URINE NEGATIVE (NEGATIVE); CANNABINOID, URINE NEGATIVE (NEGATIVE); COCAINE, URINE NEGATIVE (NEGATIVE); ECSTASY, URINE NEGATIVE (NEGATIVE); FENTANYL, URINE NEGATIVE (NEGATIVE); METHADONE, URINE NEGATIVE (NEGATIVE); OPIATES, URINE NEGATIVE (NEGATIVE); OXYCODONE, URINE NEGATIVE (NEGATIVE); PHENCYCLIDINE, URINE NEGATIVE (NEGATIVE)
[2023-11-29] MEDS ORDERED: LACTULOSE 20 GM/30 ML CUP PO ONE (05:15)
[2023-11-29 06:02] VITALS: BP 170/80
--- NOTE | 2023-11-29 08:16 | EKG ---
[facility] [address] [place] [address] Signed Sinus bradycardia with sinus arrhythmia with 1st degree AV block Possible Inferior infarct (cited on or before 22-FEB-2020) Possible Anterior infarct , age undetermined Abnormal ECG When compared with ECG of 28-JAN-2022 14:27, No significant change was found Confirmed by Judie Hart MD () on 11/29/2023 8:16:13 AM Electronically Signed By: JUDIE HART MD 11/29/23 0816 PATIENT NAME: DIPESHBEHZAD Electrocardiogram DATE OF : 55 PHYSICIAN: JUDIE HART MD REPORT #: [id number] REPORT IS CONFIDENTIAL AND NOT TO BE RELEASED WITHOUT AUTHORIZATION
== END 2023-11-29 06:02 | disposition home or self-care (01) ==
LOC: ED 03:12
PROVIDERS: Internal Medicine
DX: K76.82 Hepatic encephalopathy (principal); K70.30 Alcoholic cirrhosis of liver without ascites; T47.3X6A Underdosing of saline and osmotic laxatives, initial encounter; I65.02 Occlusion and stenosis of left vertebral artery; E11.9 Type 2 diabetes mellitus without complications; I11.0 Hypertensive heart disease with heart failure; I50.9 Heart failure, unspecified; I25.2 Old myocardial infarction; I25.10 Atherosclerotic heart disease of native coronary artery without angina pectoris; F17.200 Nicotine dependence, unspecified, uncomplicated; Z91.148 Patient's other noncompliance with medication regimen for other reason; Z88.5 Allergy status to narcotic agent; Z88.4 Allergy status to anesthetic agent; Z79.4 Long term (current) use of insulin; Z79.899 Other long term (current) drug therapy; Z79.82 Long term (current) use of aspirin
CPT/HCPCS: 36415; 70450; 70496; 70498; 71045; 80053; 80307; 81001; 82140; 83605; 84484; 85025; 93005; 93010; 99285-25; G0480; Q9967

== ENCOUNTER 2024-01-04 08:32 | Emergency (ER) | payer MEDICARE, OTHER ==
[~2024-01-04] VITALS: Ht 177.8 cm; Wt 109.5 kg
[2024-01-04] MEDS ORDERED: HYDROCODONE/ACETA 7.5/325 TAB PO ONE (09:00)
[2024-01-04 09:10] LABS: BASOPHILS 0.8 % (0-2); EOSINOPHILS 6.2 % (0-6); HEMATOCRIT 39.6 % (35.0-50.0); HEMOGLOBIN 13.9 g/dL (12.0-18.0); MCH 32.5 (27-36); MCHC 35.1 g/dl (30-36); MCV 92.7 fl (81-99); MONOCYTES 7.5 % (0-12); NEUTROPHILS 61.5 % (39-80); PLATELET COUNT 86 K/uL (140-440); RBC 4.27 M/ul (4.3-5.7)
[2024-01-04 09:20] LABS: ALBUMIN 2.5 g/dL (3.4-5.0); ALBUMIN/GLOBULIN RATIO 0.71 (1.1-2.4); ANION GAP 15.2 (7-21); BUN/CREATININE RATIO 11.25 (6.0-28.6); CALCIUM 8.1 mg/dL (8.5-10.1); CREATININE, SERUM 1.6 mg/dL (0.70-1.30); POTASSIUM 4.2 mmol/L (3.5-5.1)
[2024-01-04] MEDS ORDERED: HYDROCODON-ACE1 EA11 PO (10:19)
[2024-01-04 10:27] VITALS: BP 159/79
== END 2024-01-04 10:28 | disposition home or self-care (01) ==
LOC: ED 08:32
PROVIDERS: Emergency Medicine
DX: E11.40 Type 2 diabetes mellitus with diabetic neuropathy, unspecified (principal); I11.0 Hypertensive heart disease with heart failure; I50.9 Heart failure, unspecified; I25.10 Atherosclerotic heart disease of native coronary artery without angina pectoris; I25.2 Old myocardial infarction; Z88.5 Allergy status to narcotic agent; Z79.4 Long term (current) use of insulin; Z79.82 Long term (current) use of aspirin; Z79.899 Other long term (current) drug therapy
CPT/HCPCS: 36415; 80053; 85025; 93971; 99284-25; A9270